=== PATIENT | female | born 1995 | race Caucasian/White ===

== ENCOUNTER 2023-06-18 09:40 | Outpatient (OUT) | payer MEDICAID, SELFPAY ==
[2023-06-18 10:20] LABS: Free T4 0.88 ng/dL (0.76-1.46)
[2023-06-18 10:24] LABS: Alanine Aminotransferase 23 U/L (14-59); Albumin Globulin Ratio 0.9; Albumin Level 3.8 g/dL (3.4-5.0); Alkaline Phosphatase 111 U/L (46-116); Anion Gap 11.2; Aspartate Amino Transferase 22 U/L (15-37); BUN Creatinine Ratio 16.9; Bilirubin Total 0.7 mg/dL (0.2-1.0); Calcium 8.6 mg/dL (8.5-10.1); Carbon Dioxide 23.7 mmol/L (21.0-32.0); Chloride 103 mmol/L (98-107); Estimated GFR (African America >60 (>=60); Estimated GFR (Non-African Ame >60 (>=60); Globulin 4.1 g/dL; Glucose 101 mg/dL (74-106); Potassium 3.9 mmol/L (3.5-5.1); Sodium 134 mmol/L (136-145); Thyroid Stimulating Hormone 4.338 uIU/mL (0.358-3.740); Total Protein 7.9 g/dL (6.4-8.2)
== END 2023-06-18 09:41 | disposition home or self-care (01) ==
LOC: LAB 09:40
PROVIDERS: PCP Nurse Practitioner Family; Visit Provider Nurse Practitioner Family
DX: E55.9 Vitamin D deficiency, unspecified (principal); E03.8 Other specified hypothyroidism; R74.8 Abnormal levels of other serum enzymes
CPT/HCPCS: 36415; 80053; 82306; 84439; 84443

== ENCOUNTER 2023-08-14 15:02 | Outpatient (OUT) | payer MEDICAID, SELFPAY ==
[2023-08-14 16:12] LABS: Thyroid Stimulating Hormone 2.678 uIU/mL (0.358-3.740)
== END 2023-08-14 15:03 | disposition home or self-care (01) ==
LOC: LAB 15:03
PROVIDERS: PCP Nurse Practitioner Family; Visit Provider Nurse Practitioner Family
DX: E03.8 Other specified hypothyroidism (principal); E55.9 Vitamin D deficiency, unspecified
CPT/HCPCS: 36415; 82306; 84439; 84443

== ENCOUNTER 2023-12-16 21:14 | Outpatient (REF) | payer OTHER, SELFPAY ==
--- OUTSIDE RECORDS SUMMARY | 2023-12-16 21:17 | XMS_ITS | CCD ---
Author Name Unknown Address [address] [place] [address] Organization [facility] Care Team Providers Care Director Of Content And Programming Name Role Phone [facility], Sandra Unavailable [facility], SANDRA Primary Care Unavailable HANSA ., DR GOLDSMITH Attending Unavailable [place], DR MANUELITO Foley Consulting Unavailable HANSA ., DR GOLDSMITH Admitting Unavailable HANSA ., DR GOLDSMITH Consulting Unavailable BRIAN, VIRGINIA Admitting Unavailable BRIANVIRGINIA Attending Unavailable [facility], [facility] Primary Care Unavailable [place], DR MANUELITO Foley Consulting Unavailable HANSA ., DR GOLDSMITH Consulting Unavailable VIRGINIA TORRES Consulting Unavailable HANSA ., DR GOLDSMITH Attending Unavailable [facility], SANDRA Primary Care Unavailable HANSA ., DR GOLDSMITH Admitting Unavailable HANSA ., DR GOLDSMITH Consulting Unavailable KAP, SANDRA Primary Care Unavailable HANSA ., DR GOLDSMITH Consulting Unavailable HANSA ., DR GOLDSMITH Attending Unavailable HANSA ., DR GOLDSMITH Admitting Unavailable HANSA ., DR GOLDSMITH Attending Unavailable [facility], [facility] Primary Care Unavailable HANSA ., DR GOLDSMITH Admitting Unavailable [place], DR MANUELITO Foley Consulting Unavailable HANSA ., DR GOLDSMITH Consulting Unavailable KAP, SANDRA Primary Care Unavailable HANSA ., DR GOLDSMITH Consulting Unavailable HANSA ., DR GOLDSMITH Attending Unavailable HANSA ., DR GOLDSMITH Admitting Unavailable KAP, SANDRA Primary Care Unavailable HANSA ., DR GOLDSMITH Attending Unavailable HANSA ., DR GOLDSMITH Consulting Unavailable HANSA ., DR GOLDSMITH Admitting Unavailable ZIEBER, DR RAGINI Chatterjee Consulting Unavailable KAP, [facility] Primary Care Unavailable HANSA ., DR GOLDSMITH Consulting Unavailable HANSA ., DR GOLDSMITH Attending Unavailable HANSA ., DR GOLDSMITH Admitting Unavailable [place], SANDRA Primary Care Unavailable HANSA ., DR GOLDSMITH Attending Unavailable [place], DR MANUELITO Foley Consulting Unavailable HANSA ., DR GOLDSMITH Admitting Unavailable HANSA ., DR GOLDSMITH Consulting Unavailable HANSA ., DR GOLDSMITH Attending Unavailable HANSA ., DR GOLDSMITH Admitting Unavailable [place], SANDRA Primary Care Unavailable HANSA ., DR GOLDSMITH Consulting Unavailable [place], SANDRA Primary Care Unavailable HANSA ., DR GOLDSMITH Attending Unavailable HANSA ., DR GOLDSMITH Consulting Unavailable HANSA ., DR GOLDSMITH Admitting Unavailable [place], SANRDA Primary Care Unavailable HANSA ., DR GOLDSMITH Attending Unavailable WEST, DR MANUELITO Foley Consulting Unavailable HANSA ., DR GOLDSMITH Admitting Unavailable HANSA ., DR GOLDSMITH Consulting Unavailable [place], SANDRA Primary Care Unavailable HANSA ., DR GOLDSMITH Attending Unavailable HANSA ., DR GOLDSMITH Consulting Unavailable HANSA ., DR GOLDSMITH Admitting Unavailable ZIEBER, DR RAGINI Chatterjee Consulting Unavailable [place], SANDRA Primary Care Unavailable HANSA ., DR GOLDSMITH Attending Unavailable HANSA ., DR GOLDSMITH Consulting Unavailable HANSA ., DR GOLDSMITH Admitting Unavailable [place], SANDRA Primary Care Unavailable HANSA ., DR GOLDSMITH Attending Unavailable HANSA ., DR GOLDSMITH Consulting Unavailable HANSA ., DR GOLDSMITH Admitting Unavailable [place], SANDRA Admitting Unavailable KAPLE, SANDRA Attending Unavailable KAPLE, SANDRA Consulting Unavailable [place], SANDRA Primary Care Unavailable HANSA ., DR GOLDSMITH Attending Unavailable HANSA ., DR GOLDSMITH Admitting Unavailable [place], SANDRA Primary Care Unavailable [place], SANDRA Admitting Unavailable [place], SANDRA Attending Unavailable [place], SANDRA Consulting Unavailable [place], SANDRA Primary Care Unavailable HANSA ., DR GOLDSMITH Attending Unavailable [place], SANDRA Primary Care Unavailable HANSA ., DR GOLDSMITH Admitting Unavailable HANSA ., DR GOLDSMITH Attending Unavailable [place], SANDRA Primary Care Unavailable HANSA ., DR GOLDSMITH Admitting Unavailable HANSA ., DR GOLDSMITH Consulting Unavailable VIRGINIA TORRES Consulting Unavailable HANSA ., DR GOLDSMITH Procedure Practitioner Unavail able [place], SANDRA Primary Care Unavailable HANSA ., DR GOLDSMITH Attending Unavailable HANSA ., DR GOLDSMITH Consulting Unavailable HANSA ., DR GOLDSMITH Admitting Unavailable SANDRA [place] Primary Care Unavailable JODIE ., DR HU Admitting Unavailabl e LYK ., DR HU Attending Unavailabl e LYK ., DR HU Consulting Unavailabl e [place], DR MANUELITO Foley Consulting Unavailable HANSA ., DR GOLDSMITH Consulting Unavailable SANDRA [place] Primary Care Unavailable HANSA ., DR GOLDSMITH Attending Unavailable [place], DR MANUELITO Foley Consulting Unavailable HANSA ., DR GOLDSMITH Admitting Unavailable HANSA ., DR GOLDSMITH Consulting Unavailable Ramonita Greenberg Unavailable Medications Current Medications Medication Drug Class(es) Dates Sig (Normalized) Sig (Original) amoxicillin 500 mg oral capsule (3 sources) Penicillin-class Antibacterial Start: 04-15-2023 take 1 capsule by mouth every eight hours Amoxicillin 500 MG 1 capsule Orally three times a day for 10 day(s) Mar, Active Ascorbic Acid (1 source) Vitamin C Vitamin C Active azithromycin 250 mg oral tablet (1 source) Macrolide Antimicrobial Start: 10-31-2023 Zithromax Z-Hollis 250 MG 2 tablets on the first day, then 1 tablet daily for 4 days Orally Once a day for 5 day(s) Oct, Active cephalexin 500 mg oral tablet (4 sources) Cephalosporin Antibacterial Start: 02-21-2023 take 1 tablet by mouth every six hours Cephalexin 500 MG 1 tablet Orally every 6 hrs for 10 day(s) Jan, Active cetirizine hydrochloride 10 mg oral tablet (8 sources) Histamine-1 Receptor Antagonist take 1 tablet by mouth once daily ZyrTEC Allergy 10 MG 1 tablet Orally Once a day Active cholecalciferol 0.125 mg oral tablet (7 sources) Vitamin D Start: 02-21-2023 take 1 tablet by mouth every twenty-four hours Vitamin D3 125 MCG (5000 UT) 1 tablet Orally Once a day for 30 days Jan, Active Start: 12-27-2022 take 1 capsule by mo uth every twenty-four hours Vitamin D3 50 MCG (2000 UT) 1 capsule Orally Once a day for 30 days Dec, Active take 1 tablet by mouth once lolis y Vitamin D3 25 MCG (1000 UT) TAKE 1 TABLET BY MOUTH EVERY DAY for 90 Active take 1 capsule by mo uth every twenty-four hours Vitamin D3 25 MCG (1000 UT) 1 capsule Orally Once a day Active ciprofloxacin 3 mg/ml / dexamethasone 1 mg/ml otic suspension (1 source) Corticosteroid, Quinolone Antimicrobial Start: 06-04-2023 Ciprofloxacin-Dexamethasone 0.3-0.1 % 4 drops into affected ear Otic Twice a day for 7 days May, Active citalopram 40 mg oral tablet (7 sources) Serotonin Reuptake Inhibitor take 1 tablet by mouth every twenty-fo ur hours CeleXA 40 MG 1 tablet Orally Once a day for 30 days Active take 1 tablet by tamica th every twenty-four hours CeleXA 20 MG 1 tablet Orally Once a day Active Cranberry preparation (1 source) Non-Standardized Food Allergenic Extract, Non-Standardized Plant Allergenic Extract Cranberry Active levothyroxine sodium 0.05 mg oral tablet (11 sources) l-Thyroxine take 1 tablet by mouth once daily in the morning Levothyroxine Sodium 50 MCG 1 tablet in the morning on an empty stomach Orally Once a day for 30 days Active take 1 tablet by tamica th once daily in the morning Levothyroxine Sodium 50 MCG 1 tablet in the morning on an empty stomach Orally Once a day for 30 days Active take 1 tablet by tamica th once daily in the morning Levothyroxine Sodium 25 MCG TAKE ONE TAB LET BY MOUTH DAILY ON AN EMPTY STOMACH IN THE MORNING for 30 Active Loratadine (3 sources) Loratadine Activ e metFORMIN hydrochloride 500 mg oral tablet (1 source) Biguanide take 1 tablet by mouth every twelve hours metFORMIN HCl 500 MG 1 tablet with a meal Orally twice a day Active polymyxin b 22827 unt/ml / trimethoprim 1 mg/ml ophthalmic solution (3 sources) Dihydrofolate Reductase Inhibitor Antibacterial, Polymyxin-class Antibacterial Start: 3 Polymyxin B-Trimethoprim 32698-0.1 UNIT/ML 1 drop into affected eye Ophthalmic every 3 hours up to six times daily for 7 days Dec, Active (10 sources) Active Probiotic (1 source) Probiotic Active Vitamin D3 125 MCG (5000 UT) (6 sources) Start: 3 take 1 tablet by mouth once daily Vitamin D3 125 MCG (5000 UT) 1 tablet Orally Once a day for 30 days Jan, Active Start: 02-21-2023 Vitamin D3 125 MCG (5000 UT) as directed Orally Once a day for 30 days Jan, Active Vitamin D3 25 MCG (1000 UT) (2 sources) Start: 06-24-2023 take 1 tablet by mouth once daily Vitamin D3 25 MCG (1000 UT) 1 tablet Orally Once a day for 30 days May, Active Completed/Discontinued Medications Medication Drug Class(es) Dates Sig (Normalized) Sig (Original) {1 (ascorbic acid 7540 MG / polyethylene glycol 3350 10233 MG / potassium chloride 1200 MG / sodium ascorbate 97153 MG / sodium chloride 3200 MG Powder for Oral Solution) / 1 (polyethylene glycol 3350 596687 MG / potassium chloride 1000 MG / sodium chloride 2000 MG / sodium sulfate 9000 MG Powder for Oral Solution) } Pack [Plenvu] (8 sources) Osmotic Laxative, Vitamin C Start: 10-07-2019 Plenvu 140 GM DOSE 1 AT 4:00 PM, DOSE 2 POUCH A &B AT 11:00 PM Orally TWICE A DAY for 1 days PLEASE CHECK ALLERGIES Sep, Not-Taking Problems Active Problems Problem Classification Problem Date Documented Date Episodic/Chronic Allergic reactions (5 sources) Atopic dermatitis; Translations: [Other atopic dermatitis] Chronic Anxiety disorders (20 sources) Anxiety; Translations: [Anxiety disorder, unspecified] Onset: 12-21-2021 Resolved: 12-21-2021 Chronic Chronic obstructive pulmonary disease and bronchiectasis (1 source) Bronchitis, not specified as acute or chronic Episodic Diabetes mellitus without complication (16 sources) Prediabetes; Translations: [Prediabetes] Onset: 12-21-2021 Resolved: 12-21-2021 Episodic Esophageal disorders (1 source) Gastro-esophageal reflux disease without esophagitis; Translations: [GERD WITHOUT ESOPHAGITIS] Onset: 09-17-2022 Chronic Hypertension complicating ; childbirth and the puerperium (8 sources) Unspecified maternal hypertension, third trimester; Translations: [Unspecified pre-existing hypertension complicating , third trimester] Onset: 08-17-2022 Chronic Inflammation; infection of eye (except that caused by tuberculosis or sexually transmitteddisease) (1 source) Unspecified conjunctivitis Episodic Nonmalignant breast conditions (1 source) Mastitis without abscess Episodic Nutritional deficiencies (16 sources) Vitamin D deficiency; Translations: [Vitamin D deficiency, unspecified] Onset: 02-25-2023 Chronic Other ear and sense organ disorders (1 source) Unspecified acute noninfective otitis externa, bilateral Episodic Other ear and sense organ disorders (1 source) Otalgia, right ear Episodic Other endocrine disorders (11 sources) Polycystic ovary syndrome; Translations: [Polycystic ovarian syndrome] Chronic Other endocrine disorders (4 sources) Polycystic ovarian syndrome Onset: 12-21-2021 Resolved: 12-21-2021 Chronic Other liver diseases (5 sources) Abnormal levels of other serum enzymes; Translations: [ABNORMAL LEVELS OTHER SERUM ENZYMES] Onset: 02-21-2023 Episodic Other nutritional; endocrine; and metabolic disorders (11 sources) Body mass index 30+ - obesity; Translations: [Body mass index (BMI) 38.0-38.9, adult] Chronic Other nutritional; endocrine; and metabolic disorders (1 source) Body mass index (BMI) 38.0-38.9, adult Onset: 12-21-2021 Resolved: 12-21-2021 Chronic Other nutritional; endocrine; and metabolic disorders (10 sources) Body mass index 40+ - severely obese; Translations: [Morbid (severe) obesity due to excess calories] Chronic Other nutritional; endocrine; and metabolic disorders (3 sources) Morbid (severe) obesity due to excess calories Chronic Other screening for suspected conditions (not mental disorders or infectious disease) (20 sources) Encounter for screening for malignant neoplasm of cervix; Translations: [Encounter for screening for Streptococcus B] Onset: 04-26-2022 Episodic Other upper respiratory infections (2 sources) Acute pharyngitis, unspecified; Translations: [Streptococcal pharyngitis] Episodic Thyroid disorders (18 sources) Hypothyroidism; Translations: [Other specified hypothyroidism] Onset: 12-21-2021 Resolved: 12-21-2021 Chronic Unclassified (1 source) CONTACT W/AND (SUSP) EXPOS COVID-19; Translations: [CONTACT W/AND (SUSP) EXPOS COVID-19] Onset: 09-17-2022 Past or Other Problems Problem Classification Problem Date Documented Date Episodic/Chronic Abdominal pain (1 source) Left lower quadrant pain; Translations: [LEFT LOWER QUADRANT PAIN] Onset: 07-23-2022 Episodic Immunizations and screening for infectious disease (4 sources) Encounter for screening for infections with a predominantly sexual mode of transmission; Translations: [ENC SCREEN INFECTIONS SEXL TRANSMS] Onset: 04-17-2022 Episodic OB-related trauma to perineum and vulva (1 source) Second degree perineal laceration during delivery; Translations: [SECOND DEG PERINEAL LAC DUR DELIV] Onset: 09-17-2022 Episodic Other circulatory disease (4 sources) Elevated blood-pressure reading, without diagnosis of hypertension; Translations: [ELEVATED BP READING W/O DX HTN] Onset: 08-24-2022 Episodic Other complications of ; puerperium affecting management of mother (1 source) Endocrine, nutritional and metabolic diseases complicating childbirth; Translations: [ENDOCRN NUTR MET DZ COMP CHILDBIRTH] Onset: 09-17-2022 Episodic Other complications of ; puerperium affecting management of mother (1 source) Diseases of the digestive system complicating childbirth; Translations: [DZ DIGESTIVE SYSTEM COMP CHILDBIRTH] Onset: 09-17-2022 Episodic Other complications of (4 sources) Maternal care for excessive growth, third trimester, not applicable or unspecified; Translations: [MAT CARE EXCSS FTL GRTH 3RD TRI UNS] Onset: 09-03-2022 Episodic Other complications of (2 sources) Other specified related conditions, third trimester; Translations: [OTH SPEC PREG RELATED COND 3RD TRI] Onset: 07-23-2022 Episodic Other complications of (4 sources) Endocrine, nutritional and metabolic diseases complicating , unspecified trimester; Translations: [ENDOCRN NUTR MET DZ COMP PG UNS TRI] Onset: 08-21-2022 Episodic Other complications of (1 source) Endocrine, nutritional and metabolic diseases complicating , third trimester; Translations: [ENDOCRN NUTR MET DZ COMP PG 3RD TRI] Onset: 08-21-2022 Episodic Other complications of (4 sources) Decreased movements, third trimester, not applicable or unspecified; Translations: [DECR MOVEMENTS 3RD TRI NA/UNS] Onset: 07-20-2022 Episodic Other female genital disorders (1 source) Other specified noninflammatory disorders of vagina; Translations: [OTH SPEC NONINFLAMMATORY D/O VAGINA] Onset: 04-19-2022 Episodic Other and delivery including normal (9 sources) Encounter for care and examination of lactating mother; Translations: [Encounter for routine follow-up] Onset: 09-10-2022 Episodic Residual codes; unclassified (1 source) 39 weeks gestation of ; Translations: [39 WEEKS GESTATION OF ] Onset: 09-17-2022 Episodic Residual codes; unclassified (1 source) 38 weeks gestation of ; Translations: [38 WEEKS GESTATION OF ] Onset: 09-03-2022 Episodic Residual codes; unclassified (1 source) 37 weeks gestation of ; Translations: [37 WEEKS GESTATION OF ] Onset: 08-26-2022 Episodic Residual codes; unclassified (1 source) 36 weeks gestation of ; Translations: [36 WEEKS GESTATION OF ] Onset: 08-21-2022 Episodic Residual codes; unclassified (1 source) 35 weeks gestation of ; Translations: [35 WEEKS GESTATION OF ] Onset: 08-11-2022 Episodic Residual codes; unclassified (1 source) 32 weeks gestation of ; Translations: [32 WEEKS GESTATION OF ] Onset: 07-28-2022 Episodic Residual codes; unclassified (1 source) 28 weeks gestation of ; Translations: [28 WEEKS GESTATION OF ] Onset: 06-28-2022 Episodic Thyroid disorders (5 sources) Disorder of thyroid, unspecified; Translations: [DISORDER OF THYROID UNSPECIFIED] Onset: 04-05-2022 Episodic Results Test Name Value Interpretation Reference Range Facility A1C HEMOGLOBINon 10-31-2023 HbA1c (Bld) [Mass fraction] 5.8 % [facility] Other HbA1c (Bld) [Mass fraction]o n 10-31-2023 A1C HEMOGLOBIN [facility] Other A1C HEMOGLOBINon 06-24-2023 HbA1c (Bld) [Mass fraction] 5.2 % [facility] Other HbA1c (Bld) [Mass fraction]o n 06-24-2023 A1C HEMOGLOBIN [facility] Other Quick Strepon 04-15-2023 S. pyogenes Org specific cx Ql (Throat) Positive [facility] Other Quick Strep [facility] Other FREE T4on 02-21-2023 Free T4 [Mass/Vol] 0.89 ng/dL Normal 0.76-1.46 [facility] Comment on above: Performed By: #### H H #### [facility] [address] [place] [address] Dr. Bella Jerome PROF 14(COMP METB)on 023 Albumin [Mass/Vol] 3.7 g/dL Normal 3.4-5.0 [facility] Comment on above: Performed By: #### H H #### [facility] [address] [place] [address] Dr. Bella Jerome Albumin/Globulin [Mass ratio] 0.9 {ratio} Normal [facility] Comment on above: Performed By: #### H H #### [facility] [address] [place] [address] Dr. Bella Jerome ALP [Catalytic activity/Vol] 132 U/L Critically high 46-116 [facility] Comment on above: Performed By: #### H H #### [facility] [address] [place] [address] Dr. Bella Jerome ALT [Catalytic activity/Vol] 32 U/L Normal 14-59 [facility] Comment on above: Performed By: #### H H #### [facility] [address] [place] [address] Dr. Bella Jerome Anion gap [Moles/Vol] 12.8 mmol/L Normal [facility] Comment on above: Performed By: #### H H #### [facility] [address] [place] [address] Dr. Bella Jerome AST [Catalytic activity/Vol] 23 U/L Normal 15-37 [facility] Comment on above: Performed By: #### H H #### [facility] [address] [place] [address] Dr. Bella Jerome Bilirubin [Mass/Vol] 0.6 mg/dL Normal 0.2-1.0 [facility] Comment on above: Performed By: #### H H #### [facility] [address] [place] [address] Dr. Bella Jerome Calcium [Mass/Vol] 9.0 mg/dL Normal 8.5-10.1 [facility] Comment on above: Performed By: #### H H #### [facility] [address] [place] [address] Dr. Bella Jerome Chloride [Moles/Vol] 102 mmol/L Normal 98-107 [facility] Comment on above: Performed By: #### H H #### [facility] [address] [place] [address] Dr. Bella Jerome CO2 [Moles/Vol] 28.2 mmol/L Normal 21.0-32.0 [facility] Comment on above: Performed By: #### H H #### [facility] [address] [place] [address] Dr. Bella Jerome Creatinine [Mass/Vol] 0.67 mg/dL Normal 0.55-1.02 [facility] Comment on above: Performed By: #### H H #### [facility] [address] [place] [address] Dr. Bella Jerome EGFR-AF RWANDAN >60 Normal >=60 [facility] Comment on above: Performed By: #### H H #### [facility] [address] [place] [address] Dr. Bella Jerome EGFR-NON AF RWANDAN >60 Normal >=60 [facility] Comment on above: Performed By: #### H H #### [facility] [address] [place] [address] Dr. Bella Jerome Globulin (S) [Mass/Vol] 4.2 g/dL Normal [facility] Comment on above: Performed By: #### H H #### [facility] [address] [place] [address] Dr. Bella Jerome Glucose [Mass/Vol] 88 mg/dL Normal 74-106 [facility] Comment on above: Performed By: #### H H #### [facility] [address] [place] [address] Dr. Bella Jerome Potassium [Moles/Vol] 4.0 mmol/L Normal 3.5-5.1 [facility] Comment on above: Performed By: #### H H #### [facility] [address] [address] [address] Bella Jerome Protein [Mass/Vol] 7.9 g/dL Normal 6.4-8.2 [facility] Comment on above: Performed By: #### H H #### [facility] [address] [address] [address] Bella Jerome Sodium [Moles/Vol] 139 mmol/L Normal 136-145 [facility] Comment on above: Performed By: #### H H #### [facility] [address] [address] [address] Bella Jerome Urea nitrogen [Mass/Vol] 12.0 mg/dL Normal 7.0-18.0 [facility] Comment on above: Performed By: #### H H #### [facility] [address] [place] [address] Dr. Bella Jerome Urea nitrogen/Creatinine [Mass ratio] 17.9 mg/mg Normal [facility] Comment on above: Performed By: #### H H #### [facility] [address] [address] [address] Bella Jerome TSHon 02-21-2023 TSH 2.463 uIU/mL Normal 0.358-3.740 [facility] Comment on above: Performed By: #### H H #### [facility] [address] [place] [address] Dr. Bella Jerome VITAMIN D 25 OHon 02-21-2023 VIT D 25-OH 23.1 ng/mL Normal [facility] Comment on above: Performed By: #### H H #### [facility] [address] [place] [address] Dr. Bella Jerome VIT D RANGES SEE BELOW Normal [facility] Comment on above: Result Comment: <20 ng/mL Vit D deficient 20 - <30 ng/mL Vit D insufficient 30 - 100 ng/mL Vit D sufficient >100 ng/mL Potential Toxicity Performed By: #### H H #### [facility] [address] [place] [address] Dr. Bella Jerome CBC AUTO DIFFon 12-26-2022 BASO # 0.0 103/ul Normal 0.0-0.1 [facility] Comment on above: Performed By: #### C BC #### [facility] [address] [place] [address] Dr. Bella Jerome Basophils/100 WBC (Bld) 0.3 % Normal 0.2-2.0 [facility] Comment on above: Performed By: #### C BC #### [facility] [address] [place] [address] Dr. Bella Jerome EO # 0.1 103/ul Normal 0.0-0.7 [facility] Comment on above: Performed By: #### C BC #### [facility] [address] [place] [address] Dr. Bella Jerome Eosinophils/100 WBC (Bld) 1.6 % Normal 0.9-7.0 [facility] Comment on above: Performed By: #### C BC #### [facility] [address] [place] [address] Dr. Bella Jerome Erythrocyte distribution width (RBC) [Ratio] 12.7 % Normal 11.0-15.0 [facility] Comment on above: Performed By: #### C BC #### [facility] [address] [place] [address] Dr. Bella Jerome Hematocrit (Bld) [Volume fraction] 37.2 % Normal 36.0-48.0 [facility] Comment on above: Performed By: #### C BC #### [facility] [address] [place] [address] Dr. Bella Jerome Hemoglobin (Bld) [Mass/Vol] 12.5 g/dL Normal 12.0-16.0 [facility] Comment on above: Performed By: #### C BC #### [facility] [address] [place] [address] Dr. Bella Jerome IG # 0.02 10e3/ul Normal 0.00-0.03 [facility] Comment on above: Performed By: #### C BC #### [facility] [address] [place] [address] Dr. Bella Jerome IG % 0.3 % Normal 0.0-0.5 [facility] Comment on above: Performed By: #### C BC #### [facility] [address] [place] [address] Dr. Bella Jerome LYMPH # 2.3 103/ul Normal 1.2-3.8 [facility] Comment on above: Performed By: #### C BC #### [facility] [address] [place] [address] Dr. Bella Jerome Lymphocytes/100 WBC (Bld) 34.1 % Normal 20.5-60.0 [facility] [facility] Comment on above: Performed By: #### C BC #### [facility] [address] [place] [address] Dr. eBlla Jerome MANUAL DIFF REQ NO Normal [facility] Comment on above: Performed By: #### C BC #### [facility] [address] [place] [address] Dr. Bella Jerome MCH (RBC) [Entitic mass] 30.9 pg Normal 26.7-34.0 [facility] Comment on above: Performed By: #### C BC #### [facility] [address] [place] [address] Dr. Bella Jerome MCHC (RBC) [Mass/Vol] 33.6 g/dL Normal 29.9-35.2 [facility] Comment on above: Performed By: #### C BC #### [facility] [address] [place] [address] Dr. Bella Jerome MCV (RBC) [Entitic vol] 91.9 fL Normal 81.0-99.0 [facility] Comment on above: Performed By: #### C BC #### [facility] [address] [place] [address] Dr. Bella Jerome MONO # 0.4 103/ul Normal 0.3-0.8 [facility] Comment on above: Performed By: #### C BC #### [facility] [address] [place] [address] Dr. Bella Jerome Monocytes/100 WBC (Bld) 5.1 % Normal 1.7-12.0 [facility] Comment on above: Performed By: #### C BC #### [facility] [address] [address] [address] Bella Jerome NEUT # 4.0 103/ul Normal 1.4-6.5 [facility] Comment on above: Performed By: #### C BC #### [facility] [address] [address] [address] Bella Jerome Neutrophils/100 WBC (Bld) 58.6 % Normal 43.0-75.0 [facility] Comment on above: Performed By: #### C BC #### [facility] [address] [address] [address] Bella Jerome Platelet mean volume (Bld) [Entitic vol] 11.5 fL Normal 9.5-13.5 [facility] Comment on above: Performed By: #### C BC #### [facility] [address] [address] [address] Bella Jerome PLT 243 103/ul Normal 150-450 [facility] Comment on above: Performed By: #### C BC #### [facility] [address] [address] [address] Bella Jerome RBC 4.05 106/ul Critically low 4.20-5.40 [facility] Comment on above: Performed By: #### C BC #### [facility] [address] [address] [address] Bella Jerome WBC 6.8 103/ul Normal 4.0-11.0 [facility] Comment on above: Performed By: #### C BC #### [facility] [address] [address] [address] Bella Jerome FREE T4on 12-26-2022 Free T4 [Mass/Vol] 1.05 ng/dL Normal 0.76-1.46 [facility] Comment on above: Performed By: #### F T4, VITAD, B12FOL, IRON ####[facility] [address] [address]Dr. Bella Jerome GLYCOHEMOGLOBIN A1Con 2022 ADA RECOMMENDATION SEE BELOW Normal [facility] Comment on above: Result Comment: ADA RECOMMENDED LIMIT 4.0 - 6.0 ADA THERAPEUTIC TARGET < 7.0 ACTION SUGGESTED > 7.0 Performed By: #### A 1C #### [facility] [address] [address] [address] Bella Jerome Glucose [Mass/Vol] 103 mg/dL Normal [facility] Comment on above: Performed By: #### A 1C #### [facility] [address] [address] [address] Bella Jerome HbA1c (Bld) [Mass fraction] 5.2 % Normal 4.5-6.2 [facility] Comment on above: Performed By: #### A 1C #### [facility] [address] [address] [address] Bella Jerome IRONon 12-26-2022 Iron [Mass/Vol] 74.0 ug/dL Normal 50.0-170.0 [facility] Comment on above: Performed By: #### F T4, VITAD, B12FOL, IRON ####[facility] [address] [address]Dr. Bella Jerome LIPID PROFILEon 12-26-2022 CHOL-HDL RATIO NORM SEE BELOW Normal [facility] Comment on above: Result Comment: 3.3 - 4.4 LOW RISK 4.4 - 7.1 AVERAGE RISK 7.1 - 11.0 MODERATE RISK >11.0 HIGH RISK Performed By: #### C MP, TSH, LIPID #### [facility] [address] [address] [address] Bella Jerome Cholesterol [Mass/Vol] 153 mg/dL Normal <=200 [facility] Comment on above: Performed By: #### C MP, TSH, LIPID #### [facility] [address] [address] [address] Bella Jerome Cholesterol in HDL [Mass/Vol] 67 mg/dL Critically high 40-60 [facility] Comment on above: Performed By: #### C MP, TSH, LIPID #### [facility] [address] [address] [address] Bella Jerome Cholesterol in LDL [Mass/Vol] 77.2 mg/dL Normal [facility] Comment on above: Performed By: #### C MP, TSH, LIPID #### [facility] [address] [address] [address] Bella Jerome Cholesterol.total/Ch olesterol in HDL [Mass ratio] 2.3 {ratio} Normal [facility] Comment on above: Performed By: #### C MP, TSH, LIPID #### [facility] [address] [address] [address] Bella Jerome HDL NORMAL > or = 60 mg/dl - LOW CARDIOVASCULAR RISK <40 mg/dl - HIGH CARDIOVASCULAR RISK Normal [facility] Comment on above: Performed By: #### C MP, TSH, LIPID #### [facility] [address] [place] [address] Dr. Bella Jerome LDL CALC NORMAL SEE BELOW Normal [facility] Comment on above: Result Comment: <100 mg/dl OPTIMAL 100 - 129 mg/dl NEAR OR ABOVE OPTIMAL 130 - 159 mg/dl BORDERLINE HIGH 160 - 189 mg/dl HIGH >190 mg/dl VERY HIGH Performed By: #### C MP, TSH, LIPID #### [facility] [address] [place] [address] Dr. Bella Jerome Triglyceride [Mass/Vol] 44 mg/dL Normal <=150 [facility] Comment on above: Performed By: #### C MP, TSH, LIPID #### [facility] [address] [place] [address] Dr. Bella Jerome VLDL CALC 8.8 mg/dL Normal [facility] Comment on above: Performed By: #### C MP, TSH, LIPID #### [facility] [address] [address] [address] Bella Jerome MICROALB CREAT RATIO RANDOMo n 12-26-2022 mALB 2.3 mg/L Normal <=30.0 [facility] Comment on above: Performed By: #### H H #### [facility] [address] [place] [address] Dr. Bella Jerome MALB CR RATIO 17.4 mg/g Normal 0.0-29.9 [facility] Comment on above: Performed By: #### H H #### [facility] [address] [place] [address] Dr. Bella Jerome MALB CR RATIO RANGE SEE BELOW Normal [facility] Comment on above: Result Comment: NO M ICROALBUMINURIA 0-29 MG/G CLINICAL MICROALBUMINURIA 30-300 MG/G MACROALBUMINURIA >300 MG/G Performed By: #### H H #### [facility] [address] [address] [address] Bella Jerome URINE CREAT 131.90 mg/dL Normal 20.00-300.00 [facility] Comment on above: Performed By: #### H H #### [facility] [address] [place] [address] Dr. Bella Jerome PROF 14(COMP METB)on 023 Albumin [Mass/Vol] 4.1 g/dL Normal 3.4-5.0 [facility] Comment on above: Performed By: #### C MP, TSH, LIPID #### [facility] [address] [place] [address] Dr. Bella Jerome Albumin/Globulin [Mass ratio] 1.3 {ratio} Normal [facility] Comment on above: Performed By: #### C MP, TSH, LIPID #### [facility] [address] [place] [address] Dr. Bella Jerome ALP [Catalytic activity/Vol] 124 U/L Critically high 46-116 [facility] Comment on above: Performed By: #### C MP, TSH, LIPID #### [facility] [address] [address] [address] Bella Jerome ALT [Catalytic activity/Vol] 16 U/L Normal 14-59 [facility] Comment on above: Performed By: #### C MP, TSH, LIPID #### [facility] [address] [address] [address] Bella Jerome Anion gap [Moles/Vol] 13.4 mmol/L Normal [facility] Comment on above: Performed By: #### C MP, TSH, LIPID #### [facility] [address] [address] [address] Bella Jerome AST [Catalytic activity/Vol] 17 U/L Normal 15-37 [facility] Comment on above: Performed By: #### C MP, TSH, LIPID #### [facility] [address] [address] [address] Bella Jerome Bilirubin [Mass/Vol] 0.8 mg/dL Normal 0.2-1.0 [facility] Comment on above: Performed By: #### C MP, TSH, LIPID #### [facility] [address] [address] [address] Bella Jerome Calcium [Mass/Vol] 8.9 mg/dL Normal 8.5-10.1 [facility] Comment on above: Performed By: #### C MP, TSH, LIPID #### [facility] [address] [place] [address] Dr. Bella Jerome Chloride [Moles/Vol] 103 mmol/L Normal 98-107 [facility] Comment on above: Performed By: #### C MP, TSH, LIPID #### [facility] [address] [address] [address] Bella Jerome CO2 [Moles/Vol] 25.6 mmol/L Normal 21.0-32.0 [facility] Comment on above: Performed By: #### C MP, TSH, LIPID #### [facility] [address] [address] [address] Bella Jerome Creatinine [Mass/Vol] 0.55 mg/dL Normal 0.55-1.02 [facility] Comment on above: Performed By: #### C MP, TSH, LIPID #### [facility] [address] [address] [address] Bella Jerome EGFR-AF RWANDAN >60 Normal >=60 [facility] Comment on above: Performed By: #### C MP, TSH, LIPID #### [facility] [address] [place] [address] Dr. Bella Jerome EGFR-NON AF RWANDAN >60 Normal >=60 [facility] Comment on above: Performed By: #### C MP, TSH, LIPID #### [facility] [address] [address] [address] Bella Jerome Globulin (S) [Mass/Vol] 3.1 g/dL Normal [facility] Comment on above: Performed By: #### C MP, TSH, LIPID #### [facility] [address] [place] [address] Dr. Bella Jerome Glucose [Mass/Vol] 82 mg/dL Normal 74-106 [facility] Comment on above: Performed By: #### C MP, TSH, LIPID #### [facility] [address] [place] [address] Dr. Bella Jerome Potassium [Moles/Vol] 4.0 mmol/L Normal 3.5-5.1 [facility] Comment on above: Performed By: #### C MP, TSH, LIPID #### [facility] [address] [place] [address] Dr. Bella Jerome Protein [Mass/Vol] 7.2 g/dL Normal 6.4-8.2 [facility] Comment on above: Performed By: #### C MP, TSH, LIPID #### [facility] [address] [place] [address] Dr. Bella Jerome Sodium [Moles/Vol] 138 mmol/L Normal 136-145 [facility] Comment on above: Performed By: #### C MP, TSH, LIPID #### [facility] [address] [place] [address] Dr. Bella Jerome Urea nitrogen [Mass/Vol] 14.0 mg/dL Normal 7.0-18.0 [facility] Comment on above: Performed By: #### C MP, TSH, LIPID #### [facility] [address] [place] [address] Dr. Bella Jerome Urea nitrogen/Creatinine [Mass ratio] 25.5 mg/mg Normal [facility] Comment on above: Performed By: #### C MP, TSH, LIPID #### [facility] [address] [place] [address] Dr. Bella Jerome TSHon 12-26-2022 TSH 0.224 uIU/mL Critically low 0.358-3.740 [facility] Comment on above: Performed By: #### C MP, TSH, LIPID #### [facility] [address] [address] [address] Bella Jerome VIT B12 AND FOLATEon 023 Cobalamin (Vitamin B12) [Mass/Vol] 702.0 pg/mL Normal 193.0-986.0 [facility] Comment on above: Performed By: #### F T4, VITAD, B12FOL, IRON ####[facility] [address] [id number] Jerome FOLATE 25.10 ng/mL Normal 8.60-58.90 [facility] Comment on above: Performed By: #### F T4, VITAD, B12FOL, IRON ####[facility] [address] [id number] Jerome VITAMIN D 25 OHon 12-26-2022 VIT D 25-OH 25.4 ng/mL Normal [facility] Comment on above: Performed By: #### F T4, VITAD, B12FOL, IRON ####[facility] [address] [address]Dr. Bella Jerome VIT D RANGES SEE BELOW Normal [facility] Comment on above: Result Comment: <20 ng/mL Vit D deficient 20 - <30 ng/mL Vit D insufficient 30 - 100 ng/mL Vit D sufficient >100 ng/mL Potential Toxicity Performed By: #### F T4, VITAD, B12FOL, IRON ####[facility] [address] [id number]. Bella Jerome PAP ACOG PANEL 2: 23 to 31on 12-18-2022 . . Normal [facility] Comment on above: Performed By: #### C BC #### [facility] [address] [place] [address] Dr. Bella Jerome Age Gdln ACOG Testing 21-29 Normal [facility] Comment on above: Performed By: #### C BC #### [facility] [address] [address] [address] Bella Jerome DIAGNOSIS: Comment Normal [facility] Comment on above: Result Comment: NEGA TIVE FOR INTRAEPITHELIAL LESION OR MALIGNANCY. Performed By: #### C BC #### [facility] [address] [place] [address] Dr. Bella Jerome Methodology: Comment Normal [facility] Comment on above: Result Comment: This liquid based ThinPrep(R) pap test was screened with the use of an image guided system. Performed By: #### C BC #### [facility] [address] [place] [address] Dr. Bella Jerome Note: Comment Normal [facility] Comment on above: Result Comment: The Pap smear is a screening test designed to aid in the detection of premalignant and malignant conditions of the uterine cervix. It is not a diagnostic procedure and should not be used as the sole means of detecting cervical cancer. Both false-positive and false-negative reports do occur. . Performed By: #### C BC #### [facility] [address] [place] [address] Dr. Bella Jerome Performed by: Comment Normal [facility] Comment on above: Result Comment: Byron Irby, Scheduling Analyst (ASCP) Performed By: #### C BC #### [facility] [address] [place] [address] Dr. Bella Jerome Reflex Criteria: Comment Normal [facility] Comment on above: Result Comment: The HPV DNA reflex criteria were not met with this specimen result therefore, no HPV testing was performed. . Performed By: #### C BC #### [facility] [address] [place] [address] Dr. Bella Jerome Specimen adequacy: Comment Normal [facility] Comment on above: Result Comment: Sati sfactory for evaluation. Endocervical and/or squamous metaplastic cells (endocervical component) are present. Performed By: #### C BC #### [facility] [address] [place] [address] Dr. Bella Jerome CBC W MANUAL DIFFon 09-07-20 22 ATYPICAL LYMPH # Normal [facility] Comment on above: Performed By: #### C BCMAN ####[facility] [address] [id number]. Bella Jerome ATYPICAL LYMPH % Normal [facility] Comment on above: Performed By: #### C PEDRO ####[facility] [address] [id number]. Yilan Jerome BAND # 0.2 103/ul Normal 0.0-0.3 [facility] Comment on above: Performed By: #### C PEDRO ####[facility] [address] [address]Dr. Yilan Jerome BAND % 1 % Normal 0-5 [facility] Comment on above: Performed By: #### C PEDRO ####[facility] [address] [address]Dr. Yiwally Jerome BASOM # 0.00 103/ul Normal 0.00-0.10 [facility] Comment on above: Performed By: #### C PEDRO ####[facility] [address] [place], [place] [address]Dr. Bella Jerome BASOM % 0.0 % Critically low 0.2-2.0 [facility] Comment on above: Performed By: #### C PEDRO ####[facility] [address] [place], [place] [address]Dr. Yilan Jerome BLAST # Normal [facility] Comment on above: Performed By: #### C PEDRO ####[facility] [address] [address]Dr. Yilan Jerome BLAST % Normal [facility] Comment on above: Performed By: #### C PEDRO ####[facility] [address] [address]Dr. Bella Jerome CORRECTED WBC Normal 4.0-11.0 [facility] Comment on above: Performed By: #### C PEDRO ####[facility] [address] [place], [place] [address]Dr. Lilan Jerome EOS # 0.00 103/ul Normal 0.00-0.70 [facility] Comment on above: Performed By: #### C PEDRO ####[facility] [address] [place], [place] [address]Sc. Bella Jerome EOS% 0.0 % Critically low 0.9-7.0 [facility] Comment on above: Performed By: #### C PEDRO ####[facility] [address] [place], [place] [address]Wj. Bella Jerome HCT 30.5 % Critically low 36.0-48.0 [facility] Comment on above: Performed By: #### C PEDRO ####[facility] [address] [place], [place] [address]Ku. Bella Jerome HGB 10.5 g/dl Critically low 12.0-16.0 [facility] Comment on above: Performed By: #### C PEDRO ####[facility] [address] [id number]. Bella Jerome LYMPHM # 2.78 103/ul Normal 1.20-3.80 [facility] Comment on above: Performed By: #### C PEDRO ####[facility] [address] [id number]. Bella Jerome LYMPHM% 13.0 % Critically low 20.5-60.0 [facility] Comment on above: Performed By: #### C PEDRO ####[facility] [address] [id number]. Bella Jerome MCH 32.8 pg Normal 26.7-34.0 [facility] Comment on above: Performed By: #### C PEDRO ####[facility] [address] [place], [place] [address]Ci. Bella Jerome MCHC 34.4 g/dl Normal 29.9-35.2 [facility] Comment on above: Performed By: #### C PEDRO ####[facility] [address] [place], [place] [address]Sl. Bella Jerome MCV 95.3 fL Normal 81.0-99.0 [facility] Comment on above: Performed By: #### C PEDRO ####[facility] [address] [address]Dr. Bella Jerome METAMYELOCYTE # Normal [facility] Comment on above: Performed By: #### C PEDRO ####[facility] [address] [id number]. Bella Jerome METAMYELOCYTE % Normal [facility] Comment on above: Performed By: #### C PEDRO ####[facility] [address] [id number]. Bella Jerome MONOM# 2.35 103/ul Critically high 0.30-0.80 [facility] Comment on above: Performed By: #### C PEDRO ####[facility] [address] [phone]. Bella Jerome MONOM% 11.0 % Normal 1.7-12.0 [facility] Comment on above: Performed By: #### C PEDRO ####[facility] [address] [id number]. Bella Jerome MPV 11.1 fL Normal 9.5-13.5 [facility] Comment on above: Performed By: #### C PEDRO ####[facility] [address] [id number]. Bella Jerome MYELOCYTE # Normal [facility] Comment on above: Performed By: #### C PEDRO ####[facility] [address] [id number]. Bella Jerome MYELOCYTE % Normal [facility] Comment on above: Performed By: #### C PEDRO ####[facility] [address] [id number]. Bella Jerome NRBC Normal [facility] Comment on above: Performed By: #### C PEDRO ####[facility] [address] [phone]. Bella Jerome PLT 227 103/ul Normal 150-450 [facility] Comment on above: Performed By: #### C PEDRO ####[facility] [address] [id number]. Bella Jerome RBC 3.20 106/ul Critically low 4.20-5.40 [facility] Comment on above: Performed By: #### C BCMAN ####[facility] [address] [id number] Jerome RDW 12.8 % Normal 11.0-15.0 [facility] Comment on above: Performed By: #### C BCMAN ####[facility] [address] [id number] Jerome SEG # 16.05 103/ul Critically high 1.40-6.50 [facility] Comment on above: Performed By: #### C BCMAN ####[facility] [address] [address]DrWill Jerome SEG % 75.0 % Normal 43.0-75.0 [facility] Comment on above: Performed By: #### C BCMAN ####[facility] [address] [address]Dr. Bella Jerome WBC 21.4 103/ul Critically high 4.0-11.0 [facility] Comment on above: Performed By: #### C BCMAN ####[facility] [address] [address]Dr. Bella Jerome CBC AUTO DIFFon 09-05-2022 BASO # 0.0 103/ul Normal 0.0-0.1 [facility] Comment on above: Performed By: #### C BC #### [facility] [address] [address] [address] Bella Jerome Basophils/100 WBC (Bld) 0.2 % Normal 0.2-2.0 [facility] Comment on above: Performed By: #### C BC #### [facility] [address] [address] [address] Bella Jerome EO # 0.1 103/ul Normal 0.0-0.7 [facility] Comment on above: Performed By: #### C BC #### [facility] [address] [address] [address] Bella Jerome Eosinophils/100 WBC (Bld) 0.6 % Critically low 0.9-7.0 [facility] Comment on above: Performed By: #### C BC #### [facility] [address] [place] [address] Dr. Bella Jerome Erythrocyte distribution width (RBC) [Ratio] 12.6 % Normal 11.0-15.0 [facility] Comment on above: Performed By: #### C BC #### [facility] [address] [place] [address] Dr. Bella Jerome Hematocrit (Bld) [Volume fraction] 32.5 % Critically low 36.0-48.0 [facility] Comment on above: Performed By: #### C BC #### [facility] [address] [place] [address] Dr. Bella Jerome Hemoglobin (Bld) [Mass/Vol] 11.1 g/dL Critically low 12.0-16.0 [facility] Comment on above: Performed By: #### C BC #### [facility] [address] [place] [address] Dr. Bella Jerome IG # 0.14 10e3/ul Critically high 0.00-0.03 [facility] Comment on above: Performed By: #### C BC #### [facility] [address] [place] [address] Dr. Bella Jerome IG % 1.1 % Critically high 0.0-0.5 [facility] Comment on above: Performed By: #### C BC #### [facility] [address] [place] [address] Dr. Bella Jerome LYMPH # 2.6 103/ul Normal 1.2-3.8 [facility] Comment on above: Performed By: #### C BC #### [facility] [address] [place] [address] Dr. Bella Jerome Lymphocytes/100 WBC (Bld) 20.2 % Critically low 20.5-60.0 [facility] Comment on above: Performed By: #### C BC #### [facility] [address] [place] [address] Dr. Bella Jerome MANUAL DIFF REQ NO Normal [facility] Comment on above: Performed By: #### C BC #### [facility] [address] [address] [address] Bella Jerome MCH (RBC) [Entitic mass] 32.2 pg Normal 26.7-34.0 [facility] Comment on above: Performed By: #### C BC #### [facility] [address] [place] [address] Dr. Bella Jerome MCHC (RBC) [Mass/Vol] 34.2 g/dL Normal 29.9-35.2 [facility] Comment on above: Performed By: #### C BC #### [facility] [address] [place] [address] Dr. Bella Jerome MCV (RBC) [Entitic vol] 94.2 fL Normal 81.0-99.0 [facility] Comment on above: Performed By: #### C BC #### [facility] [address] [place] [address] Dr. Bella Jerome MONO # 0.9 103/ul Critically high 0.3-0.8 [facility] Comment on above: Performed By: #### C BC #### [facility] [address] [place] [address] Dr. Bella Jerome Monocytes/100 WBC (Bld) 7.1 % Normal 1.7-12.0 [facility] Comment on above: Performed By: #### C BC #### [facility] [address] [place] [address] Dr. Bella Jerome NEUT # 8.9 103/ul Critically high 1.4-6.5 [facility] Comment on above: Performed By: #### C BC #### [facility] [address] [place] [address] Dr. Bella Jerome Neutrophils/100 WBC (Bld) 70.8 % Normal 43.0-75.0 [facility] Comment on above: Performed By: #### C BC #### [facility] [address] [place] [address] Dr. Bella Jerome Platelet mean volume (Bld) [Entitic vol] 11.0 fL Normal 9.5-13.5 [facility] Comment on above: Performed By: #### C BC #### [facility] [address] [place], [place] [address] Dr. Bella Jerome PLT 234 103/ul Normal 150-450 [facility] Comment on above: Performed By: #### C BC #### [facility] [address] [place], [place] [address] Dr. Bella Jerome RBC 3.45 106/ul Critically low 4.20-5.40 [facility] Comment on above: Performed By: #### C BC #### [facility] [address] [place], [place] [address] Dr. Bella Jerome WBC 12.6 103/ul Critically high 4.0-11.0 [facility] Comment on above: Performed By: #### C BC #### [facility] [address] [place] [id number] Bella Jerome [facility]on SARS-CoV-2 (COVID-19) RNA FAVIAN+probe Ql (Unsp spec) Not detected Normal NOT DETECTED [facility] Comment on above: Result Comment: When diagnostic testing is negative, the possibility of a false negative should be considered in the context of a patient's recent exposures and the presence of clinical signs and symptoms consistent with SARS-CoV-2. This test is not yet approved or cleared by the [place] FDA. When there are no FDA-approved or cleared tests available, and other criteria are met, FDA can make tests available under an emergency access mechanism called an Emergency Use Authorization (EUA). The EUA for this test is supported by the [place] of Health and Human Service's declaration that circumstances exist to justify the emergency use of in vitro diagnostics for the detection and/or diagnosis of the virus that causes COVID-19. This EUA will remain in effect for the duration of the COVID-19 declaration justifying emergency of IVDs, unless it is terminated or revoked by the FDA (after which the test may no longer be used). Performed By: #### C VDTBH ####[facility] [address] [place], [place] [address]Yx. Bella Jerome DRUG SCREEN RAPID (URINE)on 09-05-2022 AMP Negative Normal NEGATIVE [facility] Comment on above: Performed By: #### D RUGRPD ####[facility] [address] [place] [address]Dr. Bella Jerome BAR Negative Normal NEGATIVE [facility] Comment on above: Performed By: #### D RUGRPD ####[facility] [address] [place] [address]Dr. Bella Jerome BUP Negative Normal NEGATIVE [facility] Comment on above: Performed By: #### D RUGRPD ####[facility] [address] [place] [address]Dr. Bella Jerome BZO Negative Normal NEGATIVE [facility] Comment on above: Performed By: #### D RUGRPD ####[facility] [address] [place], [place] [address]Dr. Bella Jerome NGA Negative Normal NEGATIVE [facility] Comment on above: Performed By: #### D RUGRPD ####[facility] [address] [place], [place] [address]Dr. Bella Jerome CUT-OFFS SEE BELOW Normal [facility] Comment on above: Result Comment: AMP (Amphetamine): 500ng/mL, BAR (Barbituates): 200 ng/mL, BZO (Benzodiazepines): 150 ng/mL, BUP (Buprenorphine): 10 ng/mL, NGA (Cocaine): 150 ng/mL, mAMP (Methamphetamine): 500 ng/mL, MTD (Methadone): 200 ng/mL, OPI (Opiates): 100 ng/mL, OXY (Oxycodone): 100 ng/mL, PCP (Phencyclidine): 25 ng/mL, PPX (Propoxyphene): 300 ng/mL, THC (Cannabinoids): 50 ng/mL, TCA (Trycyclic Antidepressants): 300 ng/mL Performed By: #### D RUGRPD ####[facility] [address] [place] [address]Dr. Bella Jerome DRUG CUT HEADER DRUG CLASS TEST SYSTEM CUT-OFF CONCENTRATIONS ARE FOLLOWS: Normal [facility] Comment on above: Performed By: #### D RUGRPD ####[facility] [address] [place] [id number]. Bella Jerome mAMP Negative Normal NEGATIVE [facility] Comment on above: Performed By: #### D RUGRPD ####[facility] [address] [place] [id number]. Bella Jerome MTD Negative Normal NEGATIVE [facility] Comment on above: Performed By: #### D RUGRPD ####[facility] [address] [place] [address]Dr. Bella Jerome OPI Negative Normal NEGATIVE [facility] Comment on above: Performed By: #### D RUGRPD ####[facility] [address] [place], [place] [address]Dr. Bella Jerome OXY Negative Normal NEGATIVE [facility] Comment on above: Performed By: #### D RUGRPD ####[facility] [address] [place], [place] [address]Dr. Bella Jerome PCP Negative Normal NEGATIVE [facility] Comment on above: Performed By: #### D RUGRPD ####[facility] [address] [place], [place] [address]Dr. Bella Jerome PPX Negative Normal NEGATIVE [facility] Comment on above: Performed By: #### D RUGRPD ####[facility] [address] [place], [place] [address]Dr. Bella Jerome TCA Negative Normal NEGATIVE [facility] Comment on above: Performed By: #### D RUGRPD ####[facility] [address] [place] [address]Dr. Bella Jerome THC Negative Normal NEGATIVE [facility] Comment on above: Performed By: #### D RUGRPD ####[facility] [address] [place], [place] [address]Dr. Bella Jerome TYPE AND SCREENon 09-05-2022 TYPE AND SCREEN Negative Normal [facility] Comment on above: Performed By: #### T NS ####[facility] [address] [place], [place] [address]Dr. Liwally Jerome US PREG BIOPHY W NON STRESSo n 08-31-2022 US PREG BIOPHY W NON STRESS EXAMINATION: US PREG BIOPHY W NON STRESS HISTORY: Finding of increased blood pressure COMPARISON: No relevant comparison available. TECHNIQUE: Ultrasound biophysical profile was performed in the radiology department. FINDINGS: BREATHING MOVEMENTS: 2.0 GROSS BODY MOVEMENTS: 2.0 TONE: 2.0 QUALITATIVE AMNIOTIC FLUID VOLUME: 2.0 PRESENTATION: CEPHALIC HEART RATE: 138.5 bpm H.B./min AMNIOTIC FLUID VOLUME: 14.5 cm cm GESTATIONAL AGE: 38 weeks 1 days CONCLUSION: Total biophysical profile score: 8.0 Electronically authenticated by: MANUELITO GREGG Date: 2022-08-31 17:06 Normal [facility] US PREG GROWTHon 08-30-2022 US PREG GROWTH EXAMINATION: US PREG GROWTH HISTORY: Large for gestation age fetus COMPARISON: No relevant comparison available. FINDINGS: Heart Rate: 153.0 bpm Amniotic Fluid Volume: 14.0 cm Number: 1.0 Position: Cephalic presentation Maximum Vertical Pocket: 5.7 cm cm 3.2 cm cm 1.6 cm cm 3.6 cm cm BIOMETRY: BPD: 9.1 cm cm; 36 weeks 5 days; 38% HC: 33.9 cmcm; 39 weeks 0 days, 54% AC: 35.0 cm cm; 38 weeks 6 days, 87% FL: 7.0 cm cm; 36 weeks 1 days; 11.1 % % EFW: 3372.2 grams, 7 lbs. 11 oz., 63% FL/AC: 20.1 FL/BPD: 77.7 HC/AC: 1.0 GESTATIONAL AGE: Age by EDC: 38 weeks 0 days HERNANDO by EDC: 09/13/2022 Age by US: 37 weeks 5 days HERNANDO by US: 09/15/2022 IMPRESSION: Normal interval growth Electronically authenticated by: MANUELITO GREGG Date: 2022-08-30 17:59 Normal [facility] US PREG BIOPHY W NON STRESSo n 08-24-2022 US PREG BIOPHY W NON STRESS EXAMINATION: US PREG BIOPHY W NON STRESS HISTORY: Finding of increased blood pressure COMPARISON: No relevant comparison available. TECHNIQUE: Ultrasound biophysical profile was performed in the radiology department. FINDINGS: BREATHING MOVEMENTS: 2.0 GROSS BODY MOVEMENTS: 2.0 TONE: 2.0 QUALITATIVE AMNIOTIC FLUID VOLUME: 2.0 PRESENTATION: CEPHALIC HEART RATE: 161.7 bpm H.B./min AMNIOTIC FLUID VOLUME: 14.0 cm cm GESTATIONAL AGE: 37 weeks 1 days CONCLUSION: Total biophysical profile score: 8.0 Electronically authenticated by: MANUELITO GREGG Date: 2022-08-24 17:10 Normal [facility] FREE T4on 08-21-2022 Free T4 [Mass/Vol] 0.90 ng/dL Normal 0.76-1.46 [facility] Comment on above: Performed By: #### C BC #### [facility] [address] [place] [address] [address] Bella Jerome TSHon 08-21-2022 TSH 1.033 uIU/mL Normal 0.358-3.740 [facility] Comment on above: Performed By: #### H H #### [facility] [address] [place] [address] [address] Bella Jerome US PREG BIOPHY W NON STRESSo n 08-17-2022 US PREG BIOPHY W NON STRESS EXAMINATION: US PREG BIOPHY W NON STRESS HISTORY: Finding of increased blood pressure COMPARISON: No relevant comparison available. TECHNIQUE: Ultrasound biophysical profile was performed in the radiology department. non-reactive stress testing was performed by nursing staff in the birthing center. FINDINGS: BREATHING MOVEMENTS: 2.0 GROSS BODY MOVEMENTS: 2.0 TONE: 2.0 QUALITATIVE AMNIOTIC FLUID VOLUME: 2.0 PRESENTATION: CEPHALIC HEART RATE: 140.6 bpm H.B./min AMNIOTIC FLUID VOLUME: 13.6 cm cm GESTATIONAL AGE: 36 weeks 1 days CONCLUSION: Total biophysical profile score: 8.0 Electronically authenticated by: MANUELITO GREGG Date: 2022-08-17 18:33 Normal [facility] GROUP B STREP CULTUREon 07-28 S. agalactiae Ag Ql (Unsp spec) Culture Observations: NEGATIVE FOR GROUP B STREPTOCOCCUS. Normal [facility] Comment on above: Performed By: #### G BSCX ####[facility] [address] [place] [address]Dr. Bella Jerome US PREG BIOPHY W NON STRESSo n 08-10-2022 US PREG BIOPHY W NON STRESS EXAMINATION: US PREG BIOPHY W NON STRESS HISTORY: Finding of increased blood pressure COMPARISON: No relevant comparison available. TECHNIQUE: Ultrasound biophysical profile was performed in the radiology department. FINDINGS: BREATHING MOVEMENTS: 2.0 GROSS BODY MOVEMENTS: 2.0 TONE: 2.0 QUALITATIVE AMNIOTIC FLUID VOLUME: 2.0 PRESENTATION: CEPHALIC HEART RATE: 141.4 bpm H.B./min AMNIOTIC FLUID VOLUME: 9.4 cm cm GESTATIONAL AGE: 35 weeks 1 days CONCLUSION: Total biophysical profile score: 8.0 Electronically authenticated by: MANUELITO GREGG Date: 2022-08-10 16:36 Normal [facility] US PREG GROWTHon 08-10-2022 US PREG GROWTH EXAMINATION: US PREG GROWTH HISTORY: Excessive growth affecting management of mother COMPARISON: No relevant comparison available. FINDINGS: Heart Rate: 141.4 bpm Amniotic Fluid Volume: 9.4 cm Number: 1.0 Position: Cephalic presentation, longitudinal lie Maximum Vertical Pocket: 2.2 cm cm 2.2 cm cm 3.1 cm cm 1.9 cm cm BIOMETRY: BPD: 8.5 cm cm; 34 weeks 2 days; 29% HC: 31.6 cmcm; 35 weeks 3 days, 24% AC: 31.6 cm cm; 35 weeks 4 days, 70% FL: 6.6 cm cm; 34 weeks 1 days; 17.8 % % EFW: 2576.6 grams, 5 lbs. 11 oz., 44% FL/AC: 20.9 FL/BPD: 77.7 HC/AC: 1.0 GESTATIONAL AGE: Age by EDC: 35 weeks 1 days HERNANDO by EDC: 09/13/2022 Age by US: 34 weeks 6 days HERNANDO by US: 09/15/2022 IMPRESSION: Normal interval growth Electronically authenticated by: MANUELITO GREGG Date: 2022-08-10 16:37 Normal [facility] US PREG GROWTHon 07-25-2022 US PREG GROWTH EXAMINATION: US PREG GROWTH HISTORY: Large for gestation age fetus COMPARISON: No relevant comparison available. FINDINGS: Heart Rate: 149.0 bpm Amniotic Fluid Volume: 11.8 cm Number: 1.0 Position: Cephalic presentation, longitudinal lie Maximum Vertical Pocket: 5.3 cm cm 1.8 cm cm 3.4 cm cm 1.3 cm cm BIOMETRY: BPD: 8.4 cm cm; 33 weeks 5 days; 68% HC: 30.6 cmcm; 34 weeks 1 days, 45% AC: 29.7 cm cm; 33 weeks 5 days, 74% FL: 6.5 cm cm; 33 weeks 3 days; 55.4 % % EFW: 2245.3 grams, 4 lbs. 15 oz., 66% FL/AC: 21.9 FL/BPD: 77.5 HC/AC: 1.0 GESTATIONAL AGE: Age by EDC: 32 weeks 6 days HERNANDO by EDC: 09/13/2022 Age by US: 33 weeks 5 days HERNANDO by US: 09/07/2022 IMPRESSION: Normal interval growth Electronically authenticated by: MANUELITO GREGG Date: 2022-07-25 18:18 Normal [facility] FREE T4on 07-24-2022 Free T4 [Mass/Vol] 0.98 ng/dL Normal 0.76-1.46 [facility] Comment on above: Performed By: #### F T4 #### [facility] [address] [place] [address] Dr. Bella Jerome TSHon 07-24-2022 TSH 1.196 uIU/mL Normal 0.358-3.740 [facility] Comment on above: Performed By: #### T SH ####[facility] [address] [place] [address]Dr. Bella Jerome UA (CLEAN/CATCH) PARTS SALVAGER/MICRO I F IND.on 07-20-2022 Bilirubin Ql (U) Negative Normal NEGATIVE [facility] Comment on above: Performed By: #### H H #### [facility] [address] [place] [address] Dr. Bella Jerome Clarity (U) CLEAR Normal CLEAR [facility] Comment on above: Performed By: #### H H #### [facility] [address] [place] [address] [address] Bella Jerome Color (U) LT. YELLOW Normal YELLOW [facility] Comment on above: Performed By: #### H H #### [facility] [address] [place] [address] Dr. Bella Jerome Glucose Ql (U) Negative Normal NEGATIVE [facility] Comment on above: Performed By: #### H H #### [facility] [address] [place] [address] Dr. Bella Jerome Hemoglobin Ql (U) Negative Normal NEGATIVE [facility] Comment on above: Performed By: #### H H #### [facility] [address] [place] [address] Dr. Bella Jerome Ketones Ql (U) Negative Normal NEGATIVE [facility] Comment on above: Performed By: #### H H #### [facility] [address] [place] [address] Dr. Bella Jerome LEUKOCYTES Negative Normal NEGATIVE [facility] Comment on above: Performed By: #### H H #### [facility] [address] [place] [address] Dr. Bella Jerome Nitrite Ql (U) Negative Normal NEGATIVE [facility] Comment on above: Performed By: #### H H #### [facility] [address] [place] [address] Dr. Bella Jerome pH (U) 7.0 [pH] Normal 5-9 [facility] Comment on above: Performed By: #### H H #### [facility] [address] [place] [address] Dr. Bella Jerome SPEC GRAVITY <=1.005 Abnormal 1.005-<=1.025 [facility] Comment on above: Performed By: #### H H #### [facility] [address] [place] [address] Dr. Bella Jerome UA PROTEIN Negative Normal NEGATIVE/ TRACE [facility] Comment on above: Performed By: #### H H #### [facility] [address] [place] [address] Dr. Bella Jerome UR MICRO IND NOT INDICATED Normal [facility] Comment on above: Performed By: #### H H #### [facility] [address] [place] [address] Dr. Bella Jerome Urobilinogen Qn (U) 0.2 {Kimberlee'U}/dL Normal 0.2 - 1. 0 [facility] Comment on above: Performed By: #### H H #### [facility] [address] [place] [address] [address] Bella Jerome PREG GROWTHon 06-27-2022 US PREG GROWTH EXAMINATION: US PREG GROWTH HISTORY: Large for gestation age fetus COMPARISON: No relevant comparison available. FINDINGS: Heart Rate: 155.0 bpm Number: 1.0 Position: CEPHALIC Amniotic Fluid Volume: 16.2 cm Maximum Vertical Pocket: 5.4 cm BIOMETRY: BPD: 7.3 cm cm; 29 weeks 3 days HC: 27.1 cmcm; 29 weeks 4 days AC: 25.5 cm cm; 29 weeks 5 days FL: 5.9 cm cm; 30 weeks 5 days EFW: 1486.8 grams 78% FL/AC: 23.0 FL/BPD: 80.2 HC/AC: 1.1 GESTATIONAL AGE: Age by EDC: 28 weeks 6 days HERNANDO by EDC: 09/13/2022 Age by US: 29 weeks, 6 days HERNANDO by US: 09/06/2022 IMPRESSION: 1. Single live intrauterine with growth detailed above. Electronically authenticated by: RAGINI SANTOS Date: 2022-06-27 16:23 Normal [facility] FREE T4on 06-20-2022 Free T4 [Mass/Vol] 0.82 ng/dL Normal 0.76-1.46 [facility] Comment on above: Performed By: #### H H #### [facility] [address] [place] [address] [address] Bella Jerome GLUCOSE - 1HRon 06-20-2022 Glucose [Mass/Vol] 127 mg/dL Critically high 74-106 [facility] Comment on above: Performed By: #### H H #### [facility] [address] [place] [address] [address] Bella Jerome HEMOGRAM AND PLATELon 2021 Hematocrit (Bld) [Volume fraction] 32.4 % Critically low 36.0-48.0 [facility] Comment on above: Performed By: #### H H #### [facility] [address] [place] [address] Dr. Bella Jerome Hemoglobin (Bld) [Mass/Vol] 10.9 g/dL Critically low 12.0-16.0 [facility] Comment on above: Performed By: #### H H #### [facility] [address] [place] [address] [address] Bella Jerome MCH (RBC) [Entitic mass] 32.9 pg Normal 26.7-34.0 [facility] Comment on above: Performed By: #### H H #### [facility] [address] [place] [address] [address] Bella Jerome MCHC (RBC) [Mass/Vol] 33.6 g/dL Normal 29.9-35.2 [facility] Comment on above: Performed By: #### H H #### [facility] [address] [place] [address] [address] Bella Jerome MCV (RBC) [Entitic vol] 97.9 fL Normal 81.0-99.0 [facility] Comment on above: Performed By: #### H H #### [facility] [address] [place] [address] [address] Bella Jerome PLT 241 103/ul Normal 150-450 [facility] Comment on above: Performed By: #### H H #### [facility] [address] [place] [address] [address] Bella Jerome RBC 3.31 106/ul Critically low 4.20-5.40 [facility] Comment on above: Performed By: #### H H #### [facility] [address] [place] [address] [address] Bella Jerome WBC 11.3 103/ul Critically high 4.0-11.0 [facility] Comment on above: Performed By: #### H H #### [facility] [address] [place] [address] Dr. Bella Jerome TSHon 06-20-2022 TSH 3.044 uIU/mL Normal 0.358-3.740 [facility] Comment on above: Performed By: #### C BC #### [facility] [address] [place] [address] Dr. Bella Jerome US PREG INCOMPLETE ANATOMYon 05-24-2022 US PREG INCOMPLETE ANATOMY EXAMINATION: US PREG INCOMPLETE ANATOMY HISTORY: screening COMPARISON: Ultrasound anatomy 04/26/2022 FINDINGS: Presentation: Cephalic Heart rate: 154 bpm Anatomy: Cervical, thoracic, and lumbar spine HERNANDO: 09/13/2022 IMPRESSION: 1. Adequate visualization of the cervical, thoracic, and lumbar spine; no appreciable abnormality. Electronically authenticated by: RAGINI SANTOS Date: 2022-05-24 17:33 Normal [facility] US PREG ANATOMY SINGLEon US PREG ANATOMY SINGLE EXAMINATION: US PREG ANATOMY SINGLE HISTORY: anatomy study COMPARISON: No relevant comparison available. TECHNIQUE: Transabdominal sonographic examination was performed for obstetrical and evaluation. FINDINGS: Number: 1 Heart Rate: 147 H.B. /min Amniotic Fluid Volume: Subjectively normal position: Breech presentation, longitudinal lie Placental Location: Anterior, grade 0. Placental edge is 7.6 cm from the internal os Cervix Length: 4.6 cm, closed Normally visualized anatomy: Cerebellum, choroid plexus, cisterna magna, lateral cerebral ventricles, orbits, midline falx, hard palate, four-chamber heart, RVOT, LVOT, stomach, kidneys, bladder, umbilical cord insertion into the abdomen, three-vessel cord, right upper extremity, left upper extremity, right lower extremity, left lower extremity Suboptimally visualized anatomy: cervical spine, thoracic spine, lumbar spine, sacral spine BIOMETRY: BPD: 4.7 cm, 20 weeks 1 day, 58% HC: 17.28 cm, 19 weeks 6 days, 34% AC: 14.6 cm, 19 weeks 6 days, 41% FL: 3.2 cm, 20 weeks 0 days, 42% EFW:322 g, 11 ounces, 42%; FL/AC: 22 FL/BPD: 68.4 HC/AC: 1.18 GESTATIONAL AGE: Age by EDC: 20 weeks 0 days HERNANOD by EDC: 09/13/2022 Age by current US: 20 weeks 0 days HERNANDO by current US: 09/13/2022 IMPRESSION: Suboptimal visualization of the spine, otherwise normal anatomy scan *Reference: [employer] Practice Guideline for the performance of Obstetric Ultrasound Examinations, July 28, 2007. Electronically authenticated by: MANUELITO GREGG Date: 2022-04-26 16:54 Normal [facility] CHLAMYDIA/GONOCOCCUS FAVIAN (SW AB/URINE/PAPon 04-19-2022 Chlamydia trachomatis, FAVIAN Negative Normal Negative [facility] Comment on above: Performed By: #### C T/NGNA ####[facility] [address] [place] [address]Dr. Bella Jerome Neisseria gonorrhoeae, FAVIAN Negative Normal Negative [facility] Comment on above: Performed By: #### C T/NGNA ####[facility] [address] [place] [address]Dr. Bella Jerome VAGINITIS/VAGINOSIS DNA PROB Leonid 04-18-2022 Jessica species Negative Normal Negative [facility] Comment on above: Performed By: #### H H #### [facility] [address] [place] [address] [address] Bella Jerome Gardnerella vaginalis Negative Normal Negative [facility] Comment on above: Performed By: #### H H #### [facility] [address] [place] [address] [address] Bella Jerome Trichomonas vaginalis Negative Normal Negative [facility] Comment on above: Performed By: #### H H #### [facility] [address] [place] [address] [address] Bella Jerome FREE T4on 04-05-2022 Free T4 [Mass/Vol] 0.88 ng/dL Normal 0.76-1.46 [facility] Comment on above: Performed By: #### F T4 #### [facility] [address] [place] [address] [address] Bella Jerome TSHon 04-05-2022 TSH 1.786 uIU/mL Normal 0.358-3.740 [facility] Comment on above: Performed By: #### T SH ####[facility] [address] [place] [address]Dr. Bella Jerome TSH RANGE SEE BELOW Normal [facility] Comment on above: Result Comment: <0.3 4 UIU/ml HYPERTHYROID 0.34-5.60 UIU/ml EUTHYROID >5.60 UIU/ml HYPOTHYROID Performed By: #### T SH ####[facility] [address] [place] [address]Dr. Bella Jerome FREE T4on 02-26-2022 Free T4 [Mass/Vol] 1.06 ng/dL Normal 0.76-1.46 [facility] Comment on above: Performed By: #### C BC #### [facility] [address] [place], [place] [address] Dr. Bella Jerome TSHon 02-26-2022 TSH 2.024 uIU/mL Normal 0.470-4.680 [facility] Comment on above: Performed By: #### C BC #### [facility] [address] [place] [address] [address] Bella Jerome TSH RANGE SEE BELOW Normal [facility] Comment on above: Result Comment: <0.3 4 UIU/ml HYPERTHYROID 0.34-5.60 UIU/ml EUTHYROID >5.60 UIU/ml HYPOTHYROID Performed By: #### C BC #### [facility] [address] [place] [address] [address] Bella Jerome Vital Signs Date Time Vital Sign Value Performing Clinician Facility 10-31-2023 15:00-0500 Body height 160.02 cm Sandra Austin Other [facility] Other 10-31-2023 15:00-0500 Body mass index (BMI) [Ratio] 45.41 kg/m2 Sandra Austin Other [facility] Other 10-31-2023 15:00-0500 Body temperature 98.5 [degF] Sandra Austin Other [facility] Other 10-31-2023 15:00-0500 Body weight 116.3 kg Sandra Austin Other [facility] Other 10-31-2023 15:00-0500 Diastolic blood pressure 80 mm[Hg] Sandra Austin Other [facility] Other 10-31-2023 15:00-0500 Respiratory rate 18 /min Sandra Geovanna Other [facility] Other 10-31-2023 15:00-0500 SaO2% (BldA) [Mass fraction] 98 % Sandra Geovanna Other [facility] Other 10-31-2023 15:00-0500 Systolic blood pressure 128 mm[Hg] Sandra Keerthile Other [facility] Other 06-24-2023 14:30-0400 Body height 160.02 cm Sandra Geovanna Other [facility] Other 06-24-2023 14:30-0400 Body mass index (BMI) [Ratio] 44.87 kg/m2 Sandra Geovanna Other [facility] Other 06-24-2023 14:30-0400 Body weight 114.9 kg Sandra Geovanna Other [facility] Other 06-24-2023 14:30-0400 Diastolic blood pressure 60 mm[Hg] Sandra Keerthile Other [facility] Other 06-24-2023 14:30-0400 Respiratory rate 18 /min Sandra Keerthile Other [facility] Other 06-24-2023 14:30-0400 SaO2% (BldA) [Mass fraction] 99 % Sandra Keerthile Other [facility] Other 06-24-2023 14:30-0400 Systolic blood pressure 110 mm[Hg] Sandra Austin Other [facility] Other 04-15-2023 09:25-0400 Body height 160.02 cm Ramonita Greenberg Other [facility] Other 04-15-2023 09:25-0400 Body mass index (BMI) [Ratio] 41.8 kg/m2 Ramonita Greenberg Other [facility] Other 04-15-2023 09:25-0400 Body temperature 98.5 [degF] Ramonita Greenberg Other [facility] Other 04-15-2023 09:25-0400 Body weight 107.05 kg Ramonita Greenberg Other [facility] Other 04-15-2023 09:25-0400 Respiratory rate 18 /min Ramonita Greenberg Other [facility] Other 04-15-2023 09:25-0400 SaO2% (BldA) [Mass fraction] 97 % Ramonita Greenberg Other [facility] Other 02-21-2023 14:45-0400 Body height 160.02 cm Sandra Austin Other [facility] Other 02-21-2023 14:45-0400 Body mass index (BMI) [Ratio] 41.39 kg/m2 Sandra Austin Other [facility] Other 02-21-2023 14:45-0400 Body weight 106.01 kg Sandra Austin Other [facility] Other 02-21-2023 14:45-0400 Diastolic blood pressure 60 mm[Hg] Sandra Austin Other [facility] Other 02-21-2023 14:45-0400 Respiratory rate 18 /min Sandra Austin Other [facility] Other 02-21-2023 14:45-0400 SaO2% (BldA) [Mass fraction] 98 % Sandra Austin Other [facility] Other 02-21-2023 14:45-0400 Systolic blood pressure 110 mm[Hg] Sandra Austin Other [facility] Other 12-24-2022 14:30-0500 Body height 160.02 cm Sandra Austin Other [facility] Other 12-24-2022 14:30-0500 Body mass index (BMI) [Ratio] 40.83 kg/m2 Sandra Geovanna Other [facility] Other 12-24-2022 14:30-0500 Body weight 104.55 kg Sandra Geovanna Other [facility] Other 12-24-2022 14:30-0500 Diastolic blood pressure 70 mm[Hg] Sandra Austin Other [facility] Other 12-24-2022 14:30-0500 Respiratory rate 18 /min Sandra Austin Other [facility] Other 12-24-2022 14:30-0500 SaO2% (BldA) [Mass fraction] 99 % Sandra Austin Other [facility] Other 12-24-2022 14:30-0500 Systolic blood pressure 118 mm[Hg] Sandra Austin Other [facility] Other 12-21-2021 16:30-0500 Body height 160.02 cm Sandra Austin Other [facility] Other 12-21-2021 16:30-0500 Body mass index (BMI) [Ratio] 38.58 kg/m2 Sandra Austin Other [facility] Other 12-21-2021 16:30-0500 Body temperature 97.3 [degF] Sandra Austin Other [facility] Other 12-21-2021 16:30-0500 Body weight 98.79 kg Sandra Austin Other [facility] Other 12-21-2021 16:30-0500 Diastolic blood pressure 60 mm[Hg] Sandra Austin Other [facility] Other 12-21-2021 16:30-0500 Respiratory rate 18 /min Sandra Austin Other [facility] Other 12-21-2021 16:30-0500 SaO2% (BldA) [Mass fraction] 99 % Sandra Austin Other [facility] Other 12-21-2021 16:30-0500 Systolic blood pressure 118 mm[Hg] Sandra Austin Other [facility] Other Encounters Encounter Date Encounter Type Care Provider Facility Start: 10-31-2023 End: 10-31-2023 ambulatory Sandra Austin Other [facility] Other Start: 10-31-2023 Office outpatient vi sit 25 minutes Sandra Austin [facility] Start: 07-19-2023 End: 07-19-2023 ambulatory Sandra Geovanna Other [facility] Other Start: 07-19-2023 Telephone encounter Sandra Geovanna [facility] Start: 06-24-2023 End: 06-24-2023 ambulatory Sandra Geovanna Other [facility] Other Start: 06-24-2023 Office outpatient vi sit 25 minutes Sandra Austin [facility] Start: 06-04-2023 End: 06-04-2023 ambulatory Sandra Austin Other [facility] Other Start: 06-04-2023 Telephone encounter Sandra Geovanna [facility] Start: 04-15-2023 End: 04-15-2023 ambulatory Ramonita Yari Other [facility] Other Start: 04-15-2023 Office outpatient vi sit 15 minutes Ramonitabrad Greenberg [facility] Start: 04-11-2023 End: 04-11-2023 ambulatory Sandra Austin Other [facility] Other Start: 04-11-2023 Telephone encounter Sandra Geovanna [facility] [place] Start: 02-21-2023 Office outpatient vi sit 25 minutes Sandra Ausitn [facility] [place] Start: 02-21-2023 End: 02-22-2023 ambulatory SANDRA GEOVANNA [facility] Other Start: 01-04-2023 End: 01-04-2023 ambulatory Sandra Austin Other [facility] Other Start: 01-04-2023 Telephone encounter Sandra Austin Pa[facility] [place] Start: 12-30-2022 Encounter for genera l adult medical examination without abnormal findings SANDRA AUSTIN [facility] Start: 12-27-2022 End: 12-27-2022 ambulatory Sandra Austin Other [facility] Other Start: 12-27-2022 Telephone encounter Sandra Geovanna [facility] Start: 12-26-2022 End: 12-27-2022 ambulatory SANDRA AUSTIN Facility:[facility] Start: 12-26-2022 End: 12-27-2022 Encounter for general adult medical examination without abnormal findings SANDRA AUSTIN Facility:[facility] Start: 12-24-2022 End: 12-24-2022 ambulatory Sandra Austin Other [facility] Other Start: 12-24-2022 Encounter for genera l adult medical examination without abnormal findings Sandra Austin [facility] [place] Start: 12-24-2022 Periodic preventive med est patient 18-39 yrs Sandra Austin [facility] [place] Start: 12-10-2022 End: 12-10-[address] AGUS SANTO . Facility:[facility] Start: 09-12-2022 End: 10-11-[address] AGUS SANTO . Facility:[facility] Start: 09-10-2022 End: 09-10-[address] AGUS SANTO . Facility:[facility] Start: 09-05-2022 End: 09-08-2022 Evaluation and management of inpatient DR AGUS SANTO . Facility:[facility] Start: 08-31-2022 End: 08-31-[address] AGUS SANTO . Facility:[facility] Start: 08-30-2022 End: 08-31-2022 ambulatory SANDRA AUSTIN Facility:[facility] Start: 08-24-2022 End: 08-24-2022 ambulatory SANDRA AUSTIN Facility:[facility] Start: 08-21-2022 End: 08-22-2022 ambulatory SANDRA AUSTIN Facility:[facility] Start: 08-17-2022 End: 08-17-2022 ambulatory VIRGINIALINDSEY TORRES Facility:[facility] Start: 08-15-2022 End: 08-15-[address] AGUS SANTO . Facility:[facility] Start: 08-10-2022 End: 08-10-2022 ambulatory SANDRA AUSTIN Facility:[facility] Start: 07-25-2022 End: 07-26-2022 ambulatory SANDRA KAPLE Facility:[facility] Start: 07-24-2022 End: 07-25-2022 ambulatory SANDRA KAPLE Facility:[facility] Start: 07-20-2022 End: 07-20-2022 ambulatory SANDRA KAPLE Facility:[facility] Start: 06-27-2022 End: 06-28-2022 ambulatory SANDRA KAPLE Facility:[facility] Start: 06-20-2022 End: 06-21-2022 ambulatory SANDRA KAPLE Facility:[facility] Start: 05-24-2022 End: 05-25-2022 ambulatory SANDRA KAPLE Facility:[facility] Start: 04-26-2022 End: 04-27-2022 ambulatory SANDRA KAPLE Facility:[facility] Start: 04-17-2022 End: 04-17-2022 ambulatory SANDRA KAPLE Facility:[facility] Start: 04-05-2022 End: 04-06-2022 ambulatory SANDRA KAPLE Facility:[facility] Start: 02-26-2022 End: 02-27-2022 ambulatory SANDRA KAPLE Facility:[facility] Start: 12-21-2021 End: 12-21-2021 ambulatory Sandra Austin Other [facility] Other Start: 12-21-2021 Office outpatient ne w 45 minutes Sandra Austin [facility] [place] Procedures Date Procedure Procedure Detail Performing Clinician Start: 09-06-2022 Delivery of Products of Conception, External Approach SANDRA ASUTIN Start: 09-06-2022 Division of Female P erineum, External Approach SANDRA AUSTIN Start: 09-06-2022 Drainage of Amniotic Fluid, Therapeutic from Products of Conception, Via Natural or Artificial Opening SANDRA AUSTIN Start: 09-06-2022 Introduction of Horm one into Female Reproductive, Via Natural or Artificial Opening SANDRA AUSTIN Start: 09-06-2022 Introduction of Othe r Hormone into Peripheral Vein, Percutaneous Approach SANDRA AUSTIN Start: 09-06-2022 Repair Perineum Musc le, Open Approach SANDRA AUSTIN Payers Date Payer Category Payer Unknown [id number] 2.16.84 [id number] 1997 Unknown [id number] 2.16.84 [id number] 1997 Unknown [id number] 2.16.84 0.1.428188.3.579.2.593 1997 Unknown [id number] 2.16.84 0.1.672067.3.579.2.593 1997 Unknown [id number] 2.16.84 0.1.445006.3.579.2.593 1997 Unknown [id number] 2.16.84 0.1.511202.3.579.2.593 1997 Unknown [id number] 2.16.84 0.1.060993.3.579.2.593 1997 Unknown [id number] 2.16.84 0.1.376352.3.579.2.593 1997 Unknown [id number] 2.16.84 0.1.175239.3.579.2.593 1997 Unknown [id number] 2.16.84 0.1.157771.3.579.2.593 1997 Unknown [id number] 2.16.84 0.1.686475.3.579.2.593 1997 Unknown [id number] 2.16.84 0.1.221651.3.579.2.593 1997 Unknown [id number] 2.16.84 0.1.881196.3.579.2.593 1997 Unknown [id number] 2.16.84 0.1.228285.3.579.2.593 1997 Unknown [id number] 2.16.84 0.1.899865.3.579.2.593 1997 Unknown [id number] 2.16.84 0.1.701071.3.579.2.593 1997 Unknown [id number] 2.16.84 0.1.936204.3.579.2.593 1997 Unknown [id number] 2.16.84 0.1.077125.3.579.2.593 1997 Unknown [id number] 2.16.84 0.1.737181.3.579.2.593 1997 Unknown [id number] 2.16.84 0.1.142282.3.579.2.593 1997 Unknown [id number] 2.16.84 0.1.676314.3.579.2.593 1997 Unknown [id number] 2.16.84 0.1.984561.3.579.2.593 1997 Unknown [id number] 2.16.84 0.1.446424.3.579.2.593 1957 Medicaid [id number] 2. [id number] 1957 Private Health Insurance [id number] Unknown [id number] . [id number] Social History Date Type Detail Facility Sex Assigned At [facility] Other Clinical Notes 12-21-2021 to 10-31-2023 Note Date & Type Note Facility 10-31-2023 Evaluation note Encounter Date Diagnosis Assessment Notes Oct, Prediabetes (ICD-10 - R73.03) In office hgba1c shows good control with diet and exercise. Will continue current treatment plan. Patient is advised to work on healthy diet choices and appropriate servings, weight control, regular exercise as directed, reduced fat intake, and salt avoidance. Patient voiced understanding of this and agrees to this plan. Oct, PCOS (polycystic ovarian syndrome) (ICD-10 - E28.2) She will continue to follow with OB-INSTRUCTIONAL DESIGNER and continue healthy lifestyle changes that she has made. Specialty notes reviewed as received. Patient is advised to work on healthy diet choices and appropriate servings, weight control, regular exercise as directed, reduced fat intake, and salt avoidance. Patient voiced understanding of this and agrees to this plan. Oct, Other specified hypothyroidism (ICD-10 - E03.8) UTD with lab work. Continue Synthroid 50 mcg daily. Oct, Anxiety (ICD-10 - F41.9) No suicidal or homicidal ideations. Stable without medication. Oct, Vitamin D insufficiency (ICD-10 - E55.9) UTD with lab work. Continue 6,000 units daily of Vitamin D. Oct, Severe obesity (BMI >= 40) (ICD-10 - E66.01) Patient is advised to work on healthy diet choices and appropriate servings, weight control, regular exercise as directed, reduced fat intake, and salt avoidance. Patient voiced understanding of this and agrees to this plan. Oct, Bronchitis (ICD-10 - J40) Discussed diagnosis with patient. Patient to start Zithromax. Patient to take Zithromax daily with food as prescribed. Finish entire course of antibiotic. Increase fluids and rest. [id number] antipyretics as needed. Warning signs and symptoms reviewed with patient today. Patient to go immediately to the ER should she experience any of these. Patient to notify office should her symptoms persist and not improve. Patient verbalizes understanding and agrees to treatment plan. [facility] Other 09-22-2023 Evaluation note* Encounter Date Diagnosis Assessment Notes Treatment Notes Treatment Clinical Notes Jun, Vitamin D insufficiency (ICD-10 - E55.9) [facility] Other 08-28-2023 Evaluation note* Encounter Date Diagnosis Assessment Notes Treatment Notes Treatment Clinical Notes May, Prediabetes (ICD-10 - R73.03) Recent lab work reviewed with her from [facility]. In office hgba1c shows good control with diet and exercise. Will continue current treatment plan. Patient is advised to work on healthy diet choices and appropriate servings, weight control, regular exercise as directed, reduced fat intake, and salt avoidance. Patient voiced understanding of this and agrees to this plan. May, PCOS (polycystic ovarian syndrome) (ICD-10 - E28.2) She will continue to follow with OB-INSTRUCTIONAL DESIGNER and continue healthy lifestyle changes that she has made. Specialty notes reviewed as received. Patient is advised to work on healthy diet choices and appropriate servings, weight control, regular exercise as directed, reduced fat intake, and salt avoidance. Patient voiced understanding of this and agrees to this plan. May, Other specified hypothyroidism (ICD-10 - E03.8) Lab work reviewed with patient. It appears she is not getting enough thyroid medication. Will increase to Synthroid 50 mcg daily. Recheck in 6 weeks. May, Anxiety (ICD-10 - F41.9) No suicidal or homicidal ideations. Stable without medication. May, Vitamin D insufficiency (ICD-10 - E55.9) Reviewed recent lab work with patient. Almost to goal on the 5,000 units daily. Will increase to 6,000 units daily and recheck in 6 weeks. May, Severe obesity (BMI >= 40) (ICD-10 - E66.01) Patient is advised to work on healthy diet choices and appropriate servings, weight control, regular exercise as directed, reduced fat intake, and salt avoidance. Patient voiced understanding of this and agrees to this plan. May, Right ear pain (ICD-10 - H92.01) She has had right ear itching and burning pain for a few months now not relieved with Ciprodex, Flonase, or antihistamines. Referral sent to ENT today. Specialty notes reviewed as received. [facility] Other 08-08-2023 Evaluation note* Encounter Date Diagnosis Assessment Notes Treatment Notes Treatment Clinical Notes May, Other atopic dermatitis (ICD-10 - L20.89) May, Acute otitis externa of both ears, unspecified type (ICD-10 - H60.503) [facility] Other 06-19-2023 Evaluation note* Encounter Date Diagnosis Assessment Notes Treatment Notes Treatment Clinical Notes 19 Keith, 2023 Sore throat (ICD-10 - J02.9) Mar, Strep pharyngitis (ICD-10 - J02.0) Strep throat material was printed Drink plenty fluids, get plenty of rest. Take the amoxicillin as prescribed until gone. Take Tylenol or Motrin as needed for aches pains or fevers. Off work today and tomorrow. Follow-up with family physician if no improvement in 2 to 3 days [facility] Other 06-15-2023 Evaluation note* Encounter Date Diagnosis Assessment Notes Treatment Notes Treatment Clinical Notes Mar, Anxiety (ICD-10 - F41.9) [facility] Other 04-27-2023 Evaluation note* Encounter Date Diagnosis Assessment Notes Treatment Notes Treatment Clinical Notes Jan, Mastitis, left, acute (ICD-10 - N61.0) Discussed likely dx with her. Likely caught mastitis early. Will treat with rx of Cephalexin and she is recommended to pump as much as she is able to to get this to resolve. Warm compresses as needed. Notify office should symptoms persist and not improve. Jan, Vitamin D insufficiency (ICD-10 - E55.9) Taking 2000 units daily. Reviewed her levels with her and she is still on the low side. Will increase her to 5000 units daily. Will plan on rechecking her at her visit in May. Jan, Anxiety (ICD-10 - F41.9) No suicidal or homicidal ideations. She is doing very well on Celexa 40 mg daily. Will continue this. Jan, Other Alk phos rec heck remained about the same, should normalize over post period. Will plan on rechecking this at May appointment. [facility] Other 03-10-2023 Evaluation note* Encounter Date Diagnosis Assessment Notes Treatment Notes Treatment Clinical Notes Dec, Bacterial conjunctivitis (ICD-10 - H10.9) [facility] Other 03-02-2023 Evaluation note* Encounter Date Diagnosis Assessment Notes Treatment Notes Treatment Clinical Notes Dec, Vitamin D insufficiency (ICD-10 - E55.9) Dec, Elevated alkaline phosphatase level (ICD-10 - R74.8) Dec, Other specified hypothyroidism (ICD-10 - E03.8) [facility] Other 02-27-2023 Evaluation note* Encounter Date Diagnosis Assessment Notes Treatment Notes Treatment Clinical Notes Nov, Prediabetes (ICD-10 - R73.03) Routine lab work ordered. Will continue current treatment plan pending lab results. Patient is advised to work on healthy diet choices and appropriate servings, weight control, regular exercise as directed, reduced fat intake, and salt avoidance. Patient voiced understanding of this and agrees to this plan. Nov, Well adult exam (ICD-10 - Z00.00) Routine lab work ordered. Follow routinely with eye doctor, dentist, INSTRUCTIONAL DESIGNER. Patient is advised to work on healthy diet choices and appropriate servings, weight control, regular exercise as directed, reduced fat intake, and salt avoidance. Patient voiced understanding of this and agrees to this plan. Nov, PCOS (polycystic ovarian syndrome) (ICD-10 - E28.2) Routine lab work ordered. She will continue to follow with OB-INSTRUCTIONAL DESIGNER and continue healthy lifestyle changes that she has made. Specialty notes reviewed as received. Patient is advised to work on healthy diet choices and appropriate servings, weight control, regular exercise as directed, reduced fat intake, and salt avoidance. Patient voiced understanding of this and agrees to this plan. Nov, Other specified hypothyroidism (ICD-10 - E03.8) Routine lab work ordered. She is taking Synthroid 50 mcg daily. Will continue current treatment plan pending lab results. Nov, Anxiety (ICD-10 - F41.9) No suicidal or homicidal ideations. Started on Celexa by her INSTRUCTIONAL DESIGNER. Very stable on Celexa 20 mg daily. Our office will take this over. Nov, Severe obesity (BMI >= 40) (ICD-10 - E66.01) Patient is advised to work on healthy diet choices and appropriate servings, weight control, regular exercise as directed, reduced fat intake, and salt avoidance. Patient voiced understanding of this and agrees to this plan. Nov, Other She will uti chelseye Julian OTC for small effusions to her ears bilaterally. She will notify office should pressure in her ears still persist after starting this. [facility] Other 02-24-2022 Evaluation note* Encounter Date Diagnosis Assessment Notes Treatment Notes Treatment Clinical Notes Nov, Prediabetes (ICD-10 - R73.03) She was recently dx with prediabetes and was started on Metformin 500 mg BID 2 weeks ago by her OB-INSTRUCTIONAL DESIGNER. She would like to follow with our office for this. She will complete community lab screenings in 4-6 weeks to make sure tolerating her Metformin well. Follow up in 3 months to recheck hgba1c. Patient is advised to work on healthy diet choices and appropriate servings, weight control, regular exercise as directed, reduced fat intake, and salt avoidance. Patient voiced understanding of this and agrees to this plan. Nov, PCOS (polycystic ovarian syndrome) (ICD-10 - E28.2) She is following with her OB-INSTRUCTIONAL DESIGNER for her PCOS and is currently on Metformin 500 mg BID and is taking medication to help her get . She will continue to follow with OB-INSTRUCTIONAL DESIGNER and continue healthy lifestyle changes that she has made. Specialty notes reviewed as received. Patient is advised to work on healthy diet choices and appropriate servings, weight control, regular exercise as directed, reduced fat intake, and salt avoidance. Patient voiced understanding of this and agrees to this plan. Nov, Other specified hypothyroidism (ICD-10 - E03.8) Recent lab work reviewed. She was recently put on Synthroid 25 mcg daily for high normal TSH level with hypothyroid symptoms of fatigue, difficulty losing weight by her OB-INSTRUCTIONAL DESIGNER. She would like to start following with our office for this. Symptoms are improved since starting medication. Will obtain lab work to recheck her thyroid levels in 4-6 weeks. Nov, Anxiety (ICD-10 - F41.9) She was recently taken off of Prestiq due to feeling so much better anxiety rios due to lifestyle changes of increasing activity and eating healthier. No suicidal or homicidal ideations. Will keep her off of this and monitor her closely over the next few months to see how she is doing. She will follow up in our office in 3 months to see how she is doing, sooner if needed. Nov, BMI 38.0-38.9,adult (ICD-10 - Z68.38) Patient is advised to work on healthy diet choices and appropriate servings, weight control, regular exercise as directed, reduced fat intake, and salt avoidance. Patient voiced understanding of this and agrees to this plan. [facility] Other History general Narrative - Reported* Type Description Date Medical History PCOS Medical History THYROID ISSUES Surgical History THIRD NIPPLE REMOVED Surgical History Colonoscopy-normal 2018 [facility] Other Summary Purpose Family History No Family History Records Found Advance Directives No Advanced Directives Records Found Reason for Referral Reason Refer to Dr. Adi orozco for right ear itching and pain; not relieve with many treatments Diagnosis 1 Right ear pain (H92. 01) Referral Organization [facility] Family Gonzales Hernandez Referring Provider First Name Sandra Referring Provider Last Name Geovanna Referring Provider Specialty Nurse Pract itioner Referred Provider Specialty Ear, Nose an d Throat Referral Priority Routine Additional Source Comments REASON FOR VISIT (unrecogniz ed section and content) EST CARE1 year Follow up, hg [id number] resultspink eyepossible mastitisstrep throatanxietyear gtts6 month Follow uprefill4 month Follow up, hgba1c INFORMATION SOURCE (unrecogn ized section and content) DATE CREATED AUTHOR 02/25/2023 [facility] FOR RECORDS PERTAINING TO PATIENTS WHO ARE OR HAVE BEEN ENROLLED IN A CHEMICAL DEPENDENCY/SUBSTANCEABUSE PROGRAM, SOME INFORMATION MAY BE OMITTED. This clinical summary was aggregated from multiple sources. Caution should be exercised in using it in the provision of clinical care. This summary normalizes information from multiple sources, and as a consequence, information in this document may materially change the coding, format and clinical context of patient data. In addition, data may be omitted in some cases. CLINICAL DECISIONS SHOULD BE BASED ON THE PRIMARY CLINICAL RECORDS. [employer] provides no warranty or guarantee of the accuracy or completeness of information in this document.
[2023-12-19 16:10] LABS: Age Gdln ACOG Testing Note (.); IGP, rfx Aptima HPV ASCU Note (.)
== END 2023-12-16 21:15 | disposition home or self-care (01) ==
LOC: LAB 21:14
PROVIDERS: PCP Nurse Practitioner Family; Visit Provider Obstetrics & Gynecology
DX: Z01.419 Encounter for gynecological examination (general) (routine) without abnormal findings (principal)
CPT/HCPCS: G0145

== ENCOUNTER 2024-02-14 10:00 | Outpatient (OUT) | payer OTHER, SELFPAY ==
--- OUTSIDE RECORDS SUMMARY | 2024-02-14 10:11 | XMS_ITS | CCD ---
Author Organization [facility] Care Team Providers Care Precinct Commanding Officer Name Role Phone [facility], Sandra Unavailable [facility], SANDRA Primary Care Unavailable HANSA ., DR GOLDSMITH Attending Unavailable WEST, DR MANUELITO Foley Consulting Unavailable HANSA ., DR GOLDSMITH Admitting Unavailable HANSA ., DR GOLDSMITH Consulting Unavailable BRIAN, VIRGINIA Admitting Unavailable BRIANVIRGINIA Attending Unavailable KAP, SANDRA Primary Care Unavailable NAHMA, DR MANUELITO Foley Consulting Unavailable HANSA ., DR GOLDSMITH Consulting Unavailable VIRGINIA TORRES Consulting Unavailable HANSA ., DR GOLDSMITH Attending Unavailable KAP, SANDRA Primary Care Unavailable HANSA ., DR GOLDSMITH Admitting Unavailable HANSA ., DR GOLDSMITH Consulting Unavailable KAP, SANDRA Primary Care Unavailable HANSA ., DR GOLDSMITH Consulting Unavailable HANSA ., DR GOLDSMITH Attending Unavailable HANSA ., DR GOLDSMITH Admitting Unavailable HANSA ., DR GOLDSMITH Attending Unavailable KAP, SANDRA Primary Care Unavailable HANSA ., DR GOLDSMITH Admitting Unavailable NAHMA, DR MANUELITO Foley Consulting Unavailable HANSA ., [...] ZIEBER, DR RAGINI Chatterjee Consulting Unavailable KAP, SANDRA Primary Care Unavailable [...] Unavailable HANSA ., DR GOLDSMITH Attending Unavailable NAHMA, DR MANUELITO Foley Consulting Unavailable HANSA ., [...] Unavailable JODIE ., DR HU Admitting Unavailabl bharti FELICIANO ., DR HU Attending Unavailabl e JODIE ., DR HU Consulting [facility], DR MANUELITO Foley Consulting Unavailable HANSA ., DR GOLDSMITH Consulting Unavailable SANDRA AUSTIN Primary Care Unavailable HANSA ., DR GOLDSMITH Attending Unavailable NAHMA, DR MANUELITO Foley Consulting Unavailable HANSA ., DR GOLDSMITH Admitting Unavailable HANSA ., DR GOLDSMITH Consulting Unavailable Ramonita Greenberg Unavailable AGUS SANTO Attending Unavailable Medications Current Medications Medication Drug Class(es) [...] Active cetirizine hydrochloride 10 mg oral tablet (9 sources) Histamine-1 Receptor Antagonist Start: 10-23-2019 take 30 mg by mouth once daily Cetirizine Active 30 MG PO Daily October 23, 2019 1:00am take 1 tablet by mouth once lolis y ZyrTEC Allergy 10 MG 1 tablet Orally Once a day Active cholecalciferol 0.025 mg oral tablet (9 sources) Vitamin D Start: 02-13-2024 take 1 tablet by mouth once daily Cholecalciferol (Vitamin D3) Active 1 TAB PO Daily February 13, 2024 12:00am FreeTextSig: TAKE 1 TABLET BY MOUTH EVERY DAY; Note: Source Status: Taking; Refills: 1; Qty: 90 Tablet; Provider: Geovanna Flores ( ) Start: 02-13-2024 take 1 tablet by tamica th once daily Cholecalciferol (Vitamin D3) Active 5000 UNIT PO Daily February 13, 2024 12:00am FreeTextSig: TAKE 1 TABLET BY MOUTH EVERY DAY FOR 30 DAYS; Note: Source Status: Not-Taking\PRN; Refills: 2; Qty: 90 Tablet; Provider: Geovanna Flores ( ) Start: 02-21-2023 take 1 tablet by tamica th every twenty-four hours Vitamin D3 125 MCG (5000 UT) 1 tablet Orally Once a day for 30 days Jan, Active Start: 12-27-2022 take 1 capsule by mo ut every twenty-four hours Vitamin D3 50 MCG (2000 UT) 1 capsule Orally Once a day for 30 days Dec, Active take 1 tablet by tamica th once daily Vitamin D3 25 MCG (1000 UT) TAKE 1 TABLET BY MOUTH EVERY DAY for 90 Active take 1 capsule by mo ut every twenty-four hours Vitamin D3 25 MCG [...] Active levothyroxine sodium 0.05 mg oral tablet (12 sources) l-Thyroxine Start: take 1 tablet by mouth once daily in the morning Levothyroxine Active 1 TAB PO Daily February 13, 2024 12:00am FreeTextSi tablet in the morning on an empty stomach Orally Once a day; Note: Source Status: Taking; Refills: 4; Qty: 30 Tablet; Provider: Geovanna Hall take 1 tablet by tamica once daily in the morning Levothyroxine Sodium 50 MCG 1 tablet in the morning on an empty stomach Orally Once a day for 30 days Active take 1 tablet by tamica once daily in the morning Levothyroxine Sodium 50 MCG 1 tablet in the morning on an empty stomach Orally Once a day for 30 days Active take 1 tablet by tamica once daily in the morning Levothyroxine Sodium 25 MCG TAKE ONE TAB LET BY MOUTH DAILY ON AN EMPTY STOMACH IN THE MORNING for 30 Active Loratadine (3 sources) Loratadine Activ e metFORMIN hydrochloride 500 mg oral tablet (1 source) Biguanide take 1 tablet by mouth every twelve hours metFORMIN HCl 500 MG 1 tablet with a meal Orally twice a day Active ondansetron 4 mg oral tablet (1 source) Serotonin-3 Receptor Antagonist Start: 02-13-20 take 4 mg by mouth every eight hours Ondansetron Hcl Active 4 MG PO Every 8 hours February 13, 2024 12:00am polymyxin b 24132 unt/ml / trimethoprim 1 mg/ml ophthalmic solution (3 sources) Dihydrofolate Reductase Inhibitor Antibacterial, Polymyxin-class Antibacterial Start: 01-05-20 Polymyxin B-Trimethoprim 27886-4.1 UNIT/ML 1 drop into affected eye Ophthalmic every 3 hours up to six times daily for 7 days Dec, Active (10 sources) Active Probiotic (1 source) Probiotic Active Vitamin D3 125 MCG (5000 UT) (6 sources) Start: 02-22-20 take 1 tablet by mouth once daily [...] acid 7540 MG / polyethylene glycol 3350 59282 MG / potassium chloride 1200 MG / sodium ascorbate 78178 MG / sodium chloride 3200 MG Powder for Oral Solution) / 1 (polyethylene glycol 3350 192637 MG / potassium chloride 1000 MG / sodium chloride 2000 MG / sodium sulfate 9000 MG Powder for Oral Solution) } Pack [Plenvu] (8 sources) Osmotic Laxative, Vitamin C Start: 10-07-2019 Plenvu 140 GM DOSE 1 AT 4:00 PM, DOSE 2 POUCH A &B AT 11:00 PM Orally TWICE A DAY for 1 days PLEASE CHECK ALLERGIES Sep, Not-Taking cefuroxime 500 mg oral tablet (1 source) Cephalosporin Antibacterial Start: 10-23-2019 End: 02-13-2024 take 500 mg by mouth once daily Cefuroxime Axetil Discontinued 500 MG PO Daily October 23, 2019 1:00am February 13, 2024 11:14am 24 hr desvenlafaxine succinate 50 mg extended release oral tablet (1 source) Serotonin and Norepinephrine Reuptake Inhibitor Start: 10-23-2019 End: 02-13-2024 take 50 mg by mouth once daily Desvenlafaxine Succinate Discontinued 50 MG PO Daily October 23, 2019 1:00am February 13, 2024 11:15am fluconazole 150 mg oral tablet (1 source) Azole Antifungal Start: 10-23-2019 End: 02-13-2024 take 150 mg by mouth every week Fluconazole Discontinued 150 MG PO every week October 23, 2019 1:00am February 13, 2024 11:15am Problems Active Problems Problem Classification Problem Date Documented Da te Episodic/Chronic Abdominal pain (2 sources) Left lower quadrant pain; Translations: [Abdominal pain] Onset: 07-23-2022 10-26-2019 Episodic Allergic reactions (5 sources) Atopic dermatitis; Translations: [...] syndrome Onset: 12-21-2021 Resolved: 12-21-2021 Chronic Other gastrointestinal disorders (1 source) Diarrhea; Translations: [Diarrhea, unspecified] 10-26-2019 Episodic Other liver diseases (5 sources) Abnormal levels [...] Acute pharyngitis, unspecified; Translations: [Streptococcal pharyngitis] Episodic Residual codes; unclassified (1 source) Gestation period, 8 weeks; Translations: [8 weeks gestation of ] 02-13-2024 Episodic Residual codes; unclassified (1 source) 8 weeks gestation of ; Translations: [ state, incidental] 02-13-2024 Episodic Spondylosis; intervertebral disc disorders; other back problems (2 sources) Low back pain; Translations: [Low back pain] 02-13-2024 Episodic Thyroid disorders (18 sources) Hypothyroidism; Translations: [Other specified hypothyroidism] Onset: 12-21-2021 Resolved: 12-21-2021 Chronic Unclassified (1 source) CONTACT W/AND (SUSP) EXPOS COVID-19; Translations: [CONTACT W/AND (SUSP) EXPOS COVID-19] Onset: 09-17-2022 Past or Other Problems Problem Classification Problem Date Documented Date Episodic/Chronic Immunizations and screening for infectious disease (4 [...] Test Name Value Interpretation Reference Range Facility Human papilloma virus 16+18+ 31+33+35+39+45+51+52+56+58+59+66+68 DNA [Presence] in Anders 12-16-2023 HPV 16+18+31+33+35+39+45 +51+52+56+58+59+66+6 8 DNA Probe+sig amp Ql (Cvx) Note . [facility] Comment on above: TESTS RESULT FLAG UN ITS REF RANGE LAB DI AGNOSIS: 02 NEGATIVE FOR INTRAEPITHELIAL LESION OR MALIGNANCY.Specimen adequacy: 02 Satisfactory for evaluation. Endocervical and/or squamous metaplastic cells (endocervical component) are present.Performed by: 02 Raeann Duran, Salesforce Administrator ([facility]). 02Note: Note 02 The Pap smear is a screening test designed to aid in the detection of premalignant and malignant conditions of the uterine cervix. It is not a diagnostic procedure and should not be used as the sole means of detecting cervical cancer. Both false-positive and false-negative reports do occur.Test Methodology: Note 02 The [employer]pro[employer](R) [employer]ane Tableman was unable to read this specimen. Therefore a manual review was performed. ----- FLAG LEGEND: L-Low Normal,H-High Normal,LL-Alert Low,HH-Alert High <-Panic Low,>-Panic High,A-Abnormal,AA-Critical Abnormal ---Performed at:[address] [id number] Heavenly Serrano MD, . 02 The HPV DNA reflex criteria were not met with this specimen result therefore, no HPV testing was performed.The HPV DNA reflex criteria were not met with this specimenresult therefore, no HPV testing was performed.Performed at: =G - [facility] [id number] [place], [place] [id number] Director: Heavenly Serrano MD, Phone: [phone] at: WB - [facility] [id number] [facility], [place] [id number] Director: Heavenly Serrano MD, Phone: [phone] No Panel Informationon 12-16 Reference Lab Test Patient Age Note . [facility] Comment on above: TESTS RESULT FLAG UN ITS REF RANGE LAB Clinician Provided Cytology Information Source.............Cervix No. of containers..01 ThinPrep VialAge Niruo AGUSTINAOG Leslye... FLAG LEGEND: L-Low Normal,H-High Normal,LL-Alert Low,HH-Alert High <-Panic Low,>-Panic High,A-Abnormal,AA-Critical Abnormal ---Performed at:01 =G [facility] [place] [address] [place] [address] Heavenly Serrano MD, A1C HEMOGLOBINon 10-31-2023 HbA1c (Bld) [Mass fraction] 5.8 % [facility] [employer] Other HbA1c (Bld) [Mass fraction]o n 10-31-2023 A1C HEMOGLOBIN amSTATZ Other A1C HEMOGLOBINon 06-24-2023 HbA1c (Bld) [Mass fraction] 5.2 % [facility] Other HbA1c (Bld) [Mass fraction]o n 06-24-2023 A1C HEMOGLOBIN Devon [employer] Other Quick Strepon 04-15-2023 S. pyogenes Org specific cx Ql (Throat) Positive [facility] Other Quick Strep [facility] Other FREE T4on 02-21-2023 Free T4 [Mass/Vol] 0.89 ng/dL Normal 0.76-1.46 [facility] Comment on above: Performed By: #### H H #### [facility] [address] [place] [address] Dr. Bella Jerome PROF 14(COMP METB)on 023 Albumin [Mass/Vol] 3.7 g/dL Normal 3.4-5.0 [facility] Comment on above: Performed By: #### H H #### [facility] [address] [place] [address] Dr. Bella Jerome Albumin/Globulin [Mass ratio] 0.9 {ratio} Normal [facility] Comment on above: Performed By: #### H H #### [facility] [address] [place] [address] Dr. Bella Jerome ALP [Catalytic activity/Vol] 132 U/L Critically high 46-116 [facility] Comment on above: Performed By: #### H H #### [facility] [address] [place] [address] Dr. Bella Jerome ALT [Catalytic activity/Vol] 32 U/L Normal 14-59 [facility] Comment on above: Performed By: #### H H #### [facility] [address] [place] [address] Dr. Bella Jerome Anion gap [Moles/Vol] 12.8 mmol/L Normal [facility] Comment on above: Performed By: #### H H #### [facility] [address] [place] [address] Dr. Bella Jerome AST [Catalytic activity/Vol] 23 U/L Normal 15-37 [facility] Comment on above: Performed By: #### H H #### [facility] [address] [place] [address] Dr. Bella Jerome Bilirubin [Mass/Vol] 0.6 mg/dL Normal 0.2-1.0 [facility] Comment on above: Performed By: #### H H #### [facility] [address] [place] [address] Dr. Bella Jerome Calcium [Mass/Vol] 9.0 mg/dL Normal 8.5-10.1 [facility] Comment on above: Performed By: #### H H #### [facility] [address] [place] [address] Dr. Bella Jerome Chloride [Moles/Vol] 102 mmol/L Normal 98-107 [facility] Comment on above: Performed By: #### H H #### [facility] [address] [place] [address] Dr. Bella Jerome CO2 [Moles/Vol] 28.2 mmol/L Normal 21.0-32.0 [facility] Comment on above: Performed By: #### H H #### [facility] [address] [place] [address] Dr. Bella Jerome Creatinine [Mass/Vol] 0.67 mg/dL Normal 0.55-1.02 [facility] Comment on above: Performed By: #### H H #### [facility] [address] [place] [address] Dr. Bella Jerome EGFR-AF SYRIAN >60 Normal >=[address] [facility] Comment on above: Performed By: #### H H #### [facility] [address] [place] [address] Dr. Bella Jerome EGFR-NON AF SYRIAN >60 Normal >=60 [facility] Comment on above: Performed By: #### H H #### [facility] [address] [place] [address] Dr. Bella Jerome Globulin (S) [Mass/Vol] 4.2 g/dL Normal [facility] Comment on above: Performed By: #### H H #### [facility] [address] [address] [address] Bella Jerome Glucose [Mass/Vol] 88 mg/dL Normal 74-106 [facility] Comment on above: Performed By: #### H H #### [facility] [address] [address] [address] Bella Jerome Potassium [Moles/Vol] 4.0 mmol/L Normal 3.5-5.1 [facility] Comment on above: Performed By: #### H H #### [facility] [address] [place] [address] Dr. Bella Jerome Protein [Mass/Vol] 7.9 g/dL Normal 6.4-8.2 [facility] Comment on above: Performed By: #### H H #### [facility] [address] [address] [address] Bella Jerome Sodium [Moles/Vol] 139 mmol/L Normal 136-145 [facility] Comment on above: Performed By: #### H H #### [facility] [address] [place] [address] Dr. Bella Jerome Urea nitrogen [Mass/Vol] 12.0 mg/dL Normal 7.0-18.0 [facility] Comment on above: Performed By: #### H H #### [facility] [address] [address] [address] Bella Jerome Urea nitrogen/Creatinine [Mass ratio] 17.9 mg/mg Normal [facility] Comment on above: Performed By: #### H H #### [facility] [address] [address] [address] Bella Jerome TSHon 02-21-2023 TSH 2.463 uIU/mL Normal 0.358-3.740 [facility] Comment on above: Performed By: #### H H #### [facility] [address] [place] [address] Dr. Bella Jerome VITAMIN D 25 OHon 02-21-2023 VIT D 25-OH 23.1 ng/mL Normal [facility] Comment on above: Performed By: #### H H #### [facility] [address] [place] [address] Dr. Bella Jerome VIT D RANGES SEE BELOW Normal [facility] Comment on above: Result Comment: <20 ng/mL Vit D deficient 20 - <30 ng/mL Vit D insufficient 30 - 100 ng/mL Vit D sufficient >100 ng/mL Potential Toxicity Performed By: #### H H #### [facility] [address] [place] [address] Dr. Bella Jerome CBC AUTO DIFFon 12-26-2022 BASO # 0.0 103/ul Normal 0.0-0.1 [facility] Comment on above: Performed By: #### C BC #### [facility] [address] [place] [address] Dr. Bella Jerome Basophils/100 WBC (Bld) 0.3 % Normal 0.2-2.0 [facility] Comment on above: Performed By: #### C BC #### [facility] [address] [place] [address] Dr. Bella Jerome EO # 0.1 103/ul Normal 0.0-0.7 [facility] Comment on above: Performed By: #### C BC #### [facility] [address] [place] [address] Dr. Bella Jerome Eosinophils/100 WBC (Bld) 1.6 % Normal 0.9-7.0 [facility] Comment on above: Performed By: #### C BC #### [facility] [address] [place] [address] Dr. Bella Jerome Erythrocyte distribution width (RBC) [Ratio] 12.7 % Normal 11.0-15.0 [facility] Comment on above: Performed By: #### C BC #### [facility] [address] [place] [address] Dr. Bella Jerome Hematocrit (Bld) [Volume fraction] 37.2 % Normal 36.0-48.0 [facility] Comment on above: Performed By: #### C BC #### [facility] [address] [place] [address] Dr. Bella Jerome Hemoglobin (Bld) [Mass/Vol] 12.5 g/dL Normal 12.0-16.0 [facility] Comment on above: Performed By: #### C BC #### [facility] [address] [place] [address] Dr. Bella Jerome IG # 0.02 10e3/ul Normal 0.00-0.03 [facility] Comment on above: Performed By: #### C BC #### [facility] [address] [place] [address] Dr. Bella Jerome IG % 0.3 % Normal 0.0-0.5 [facility] Comment on above: Performed By: #### C BC #### [facility] [address] [place] [address] Dr. Bella Jerome LYMPH # 2.3 103/ul Normal 1.2-3.8 [facility] Comment on above: Performed By: #### C BC #### [facility] [address] [place] [address] Dr. Bella Jerome Lymphocytes/100 WBC (Bld) 34.1 % Normal 20.5-60.0 [facility] Comment on above: Performed By: #### C BC #### [facility] [address] [place] [address] Dr. Bella Jerome MANUAL DIFF REQ NO Normal [facility] Comment on above: Performed By: #### C BC #### [facility] [address] [place] [address] Dr. Bella Jerome MCH (RBC) [Entitic mass] 30.9 pg Normal 26.7-34.0 [facility] Comment on above: Performed By: #### C BC #### [facility] [address] [place] [address] Dr. Bella Jerome MCHC (RBC) [Mass/Vol] 33.6 g/dL Normal 29.9-35.2 [facility] Comment on above: Performed By: #### C BC #### [facility] [address] [address] [address] Bella Jerome MCV (RBC) [Entitic vol] 91.9 fL Normal 81.0-99.0 [facility] Comment on above: Performed By: #### C BC #### [facility] [address] [place] [address] Dr. Bella Jerome MONO # 0.4 103/ul Normal 0.3-0.8 [facility] Comment on above: Performed By: #### C BC #### [facility] [address] [place] [address] Dr. Bella Jerome Monocytes/100 WBC (Bld) 5.1 % Normal 1.7-12.0 [facility] Comment on above: Performed By: #### C BC #### [facility] [address] [place] [address] Dr. Bella Jerome NEUT # 4.0 103/ul Normal 1.4-6.5 [facility] Comment on above: Performed By: #### C BC #### [facility] [address] [place] [address] Dr. Bella Jerome Neutrophils/100 WBC (Bld) 58.6 % Normal 43.0-75.0 [facility] Comment on above: Performed By: #### C BC #### [facility] [address] [place] [address] Dr. Bella Jerome Platelet mean volume (Bld) [Entitic vol] 11.5 fL Normal 9.5-13.5 [facility] Comment on above: Performed By: #### C BC #### [facility] [address] [place] [address] Dr. Bella Jerome PLT 243 103/ul Normal 150-450 [facility] Comment on above: Performed By: #### C BC #### [facility] [address] [place], [place] [id number] Dr. Bella Jerome RBC 4.05 106/ul Critically low 4.20-5.40 [facility] Comment on above: Performed By: #### C BC #### [facility] [address] [place] [address] Dr. Bella Jerome WBC 6.8 103/ul Normal 4.0-11.0 [facility] Comment on above: Performed By: #### C BC #### [facility] [address] [address] [address] Bella Jerome FREE T4on 12-26-2022 Free T4 [Mass/Vol] 1.05 ng/dL Normal 0.76-1.46 [facility] Comment on above: Performed By: #### F T4, VITAD, B12FOL, IRON ####[facility] [id number] [address]Dr. Bella Jerome GLYCOHEMOGLOBIN A1Con 2022 ADA RECOMMENDATION SEE BELOW Normal [facility] Comment on above: Result Comment: ADA RECOMMENDED LIMIT 4.0 - 6.0 ADA THERAPEUTIC TARGET < 7.0 ACTION SUGGESTED > 7.0 Performed By: #### A 1C #### [facility] [address] [address] [address] Blela Jerome Glucose [Mass/Vol] 103 mg/dL Normal [facility] Comment on above: Performed By: #### A 1C #### [facility] [address] [address] [address] Bella Jerome HbA1c (Bld) [Mass fraction] 5.2 % Normal 4.5-6.2 [facility] Comment on above: Performed By: #### A 1C #### [facility] [address] [address] [address] Bella Jerome IRONon 12-26-2022 Iron [Mass/Vol] 74.0 ug/dL Normal 50.0-170.0 [facility] Comment on above: Performed By: #### F T4, VITAD, B12FOL, IRON ####[facility] [id number] [address]Dr. Bella Jerome LIPID PROFILEon 12-26-2022 CHOL-HDL RATIO NORM SEE BELOW Normal [facility] Comment on above: Result Comment: 3.3 - 4.4 LOW RISK 4.4 - 7.1 AVERAGE RISK 7.1 - 11.0 MODERATE RISK >11.0 HIGH RISK Performed By: #### C MP, TSH, LIPID #### [facility] [address] [address] [address] Bella Jerome Cholesterol [Mass/Vol] 153 mg/dL Normal <=200 [facility] Comment on above: Performed By: #### C MP, TSH, LIPID #### [facility] [address] [address] [address] Bella Jerome Cholesterol in HDL [Mass/Vol] 67 mg/dL Critically high 40-60 [facility] Comment on above: Performed By: #### C MP, TSH, LIPID #### [facility] [address] [address] [address] Bella Jerome Cholesterol in LDL [Mass/Vol] 77.2 mg/dL Normal [facility] Comment on above: Performed By: #### C MP, TSH, LIPID #### [facility] [address] [address] [address] Bella Jerome Cholesterol.total/Ch olesterol in HDL [Mass ratio] 2.3 {ratio} Normal [facility] Comment on above: Performed By: #### C MP, TSH, LIPID #### [facility] [address] [address] [address] Bella Jerome HDL NORMAL > or = 60 mg/dl - LOW CARDIOVASCULAR RISK <40 mg/dl - HIGH CARDIOVASCULAR RISK Normal [facility] Comment on above: Performed By: #### C MP, TSH, LIPID #### [facility] [address] [address] [address] Bella Jerome LDL CALC NORMAL SEE BELOW Normal [facility] Comment on above: Result Comment: <100 mg/dl OPTIMAL 100 - 129 mg/dl NEAR OR ABOVE OPTIMAL 130 - 159 mg/dl BORDERLINE HIGH 160 - 189 mg/dl HIGH >190 mg/dl VERY HIGH Performed By: #### C MP, TSH, LIPID #### [facility] [address] [address] [address] Blela Jerome Triglyceride [Mass/Vol] 44 mg/dL Normal <=150 [facility] Comment on above: Performed By: #### C MP, TSH, LIPID #### [facility] [address] [address] [address] Bella Jerome VLDL CALC 8.8 mg/dL Normal [facility] Comment on above: Performed By: #### C MP, TSH, LIPID #### [facility] [address] [address] [address] Bella Jerome MICROALB CREAT RATIO RANDOMo n 12-26-2022 mALB 2.3 mg/L Normal <=30.0 [facility] Comment on above: Performed By: #### H H #### [facility] [address] [address] [address] Bella Jerome MALB CR RATIO 17.4 mg/g Normal 0.0-29.9 [facility] Comment on above: Performed By: #### H H #### [facility] [address] [address] [address] Bella Jerome MALB CR RATIO RANGE SEE BELOW Normal [facility] Comment on above: Result Comment: NO M ICROALBUMINURIA 0-29 MG/G CLINICAL MICROALBUMINURIA 30-300 MG/G MACROALBUMINURIA >300 MG/G Performed By: #### H H #### [facility] [address] [address] [address] Bella Jerome URINE CREAT 131.90 mg/dL Normal 20.00-300.00 [facility] Comment on above: Performed By: #### H H #### [facility] [address] [address] [address] Bella Jerome PROF 14(COMP METB)on 023 Albumin [Mass/Vol] 4.1 g/dL Normal 3.4-5.0 [facility] Comment on above: Performed By: #### C MP, TSH, LIPID #### [facility] [address] [address] [address] Bella Jerome Albumin/Globulin [Mass ratio] 1.3 {ratio} Normal [facility] Comment on above: Performed By: #### C MP, TSH, LIPID #### [facility] [address] [address] [address] Bella Jerome ALP [Catalytic activity/Vol] 124 U/L Critically high 46-116 [facility] Comment on above: Performed By: #### C MP, TSH, LIPID #### [facility] [address] [address] [address] Bella Jerome ALT [Catalytic activity/Vol] 16 U/L Normal 14-59 [facility] Comment on above: Performed By: #### C MP, TSH, LIPID #### [facility] [address] [address] [address] Bella Jerome Anion gap [Moles/Vol] 13.4 mmol/L Normal [facility] Comment on above: Performed By: #### C MP, TSH, LIPID #### [facility] [address] [place] [address] Dr. Bella Jerome AST [Catalytic activity/Vol] 17 U/L Normal 15-37 [facility] Comment on above: Performed By: #### C MP, TSH, LIPID #### [facility] [address] [place] [address] Dr. Bella Jerome Bilirubin [Mass/Vol] 0.8 mg/dL Normal 0.2-1.0 [facility] Comment on above: Performed By: #### C MP, TSH, LIPID #### [facility] [address] [place] [address] Dr. Bella Jerome Calcium [Mass/Vol] 8.9 mg/dL Normal 8.5-10.1 [facility] Comment on above: Performed By: #### C MP, TSH, LIPID #### [facility] [address] [place] [address] Dr. Bella Jerome Chloride [Moles/Vol] 103 mmol/L Normal 98-107 [facility] Comment on above: Performed By: #### C MP, TSH, LIPID #### [facility] [address] [place] [address] Dr. Bella Jerome CO2 [Moles/Vol] 25.6 mmol/L Normal 21.0-32.0 [facility] Comment on above: Performed By: #### C MP, TSH, LIPID #### [facility] [address] [place] [address] Dr. Bella Jerome Creatinine [Mass/Vol] 0.55 mg/dL Normal 0.55-1.02 [facility] Comment on above: Performed By: #### C MP, TSH, LIPID #### [facility] [address] [address] [address] Bella Jerome EGFR-AF SYRIAN >60 Normal >=60 [facility] Comment on above: Performed By: #### C MP, TSH, LIPID #### [facility] [address] [address] [address] Bella Jerome EGFR-NON AF SYRIAN >60 Normal >=60 [facility] Comment on above: Performed By: #### C MP, TSH, LIPID #### [facility] [address] [place] [address] Dr. Bella Jerome Globulin (S) [Mass/Vol] 3.1 g/dL Normal [facility] Comment on above: Performed By: #### C MP, TSH, LIPID #### [facility] [address] [address] [address] Bella Jerome Glucose [Mass/Vol] 82 mg/dL Normal 74-106 [facility] Comment on above: Performed By: #### C MP, TSH, LIPID #### [facility] [address] [place] [address] Dr. Bella Jerome Potassium [Moles/Vol] 4.0 mmol/L Normal 3.5-5.1 [facility] Comment on above: Performed By: #### C MP, TSH, LIPID #### [facility] [address] [place] [address] Dr. Bella Jerome Protein [Mass/Vol] 7.2 g/dL Normal 6.4-8.2 [facility] Comment on above: Performed By: #### C MP, TSH, LIPID #### [facility] [address] [place] [address] Dr. Bella Jerome Sodium [Moles/Vol] 138 mmol/L Normal 136-145 [facility] Comment on above: Performed By: #### C MP, TSH, LIPID #### [facility] [address] [address] [address] Bella Jerome Urea nitrogen [Mass/Vol] 14.0 mg/dL Normal 7.0-18.0 [facility] Comment on above: Performed By: #### C MP, TSH, LIPID #### [facility] [address] [address] [address] Bella Jerome Urea nitrogen/Creatinine [Mass ratio] 25.5 mg/mg Normal [facility] Comment on above: Performed By: #### C MP, TSH, LIPID #### [facility] [address] [address] [address] Bella Jerome TSHon 12-26-2022 TSH 0.224 uIU/mL Critically low 0.358-3.740 [facility] Comment on above: Performed By: #### C MP, TSH, LIPID #### [facility] [address] [place] [address] Dr. Bella Jerome VIT B12 AND FOLATEon 023 Cobalamin (Vitamin B12) [Mass/Vol] 702.0 pg/mL Normal 193.0-986.0 [facility] Comment on above: Performed By: #### F T4, VITAD, B12FOL, IRON ####[facility] [address] [address]. Bella Jerome FOLATE 25.10 ng/mL Normal 8.60-58.90 [facility] Comment on above: Performed By: #### F T4, VITAD, B12FOL, IRON ####[facility] [address] [address]. Bella Jerome VITAMIN D 25 OHon 12-26-2022 VIT D 25-OH 25.4 ng/mL Normal [facility] Comment on above: Performed By: #### F T4, VITAD, B12FOL, IRON ####[facility] [address] [address]Dr. Bella Jerome VIT D RANGES SEE BELOW Normal [facility] Comment on above: Result Comment: <20 ng/mL Vit D deficient 20 - <30 ng/mL Vit D insufficient 30 - 100 ng/mL Vit D sufficient >100 ng/mL Potential Toxicity Performed By: #### F T4, VITAD, B12FOL, IRON ####[facility] [address] [address]. Bella Jerome PAP ACOG PANEL 2: 21 to 29on 12-18-2022 . . Normal [facility] Comment on above: Performed By: #### C BC #### [facility] [address] [address] [address] Bella Jerome Age Gdln ACOG Testing - [facility] Comment on above: Performed By: #### C BC #### [facility] [address] [address] [address] Bella Jerome DIAGNOSIS: Comment [facility] Comment on above: Result Comment: NEGA TIVE FOR INTRAEPITHELIAL LESION OR MALIGNANCY. Performed By: #### C BC #### [facility] [address] [address] [address] Bella Jerome Methodology: Comment [facility] Comment on above: Result Comment: This liquid based ThinPrep(R) pap test was screened with the use of an image guided system. Performed By: #### C BC #### [facility] [address] [address] [address] Bella Jerome Note: Comment [facility] Comment on above: Result Comment: The Pap smear is a screening test designed to aid in the detection of premalignant and malignant conditions of the uterine cervix. It is not a diagnostic procedure and should not be used as the sole means of detecting cervical cancer. Both false-positive and false-negative reports do occur. . Performed By: #### C BC #### [facility] [address] [address] [address] Bella Jerome Performed by: Comment Normal [facility] Comment on above: Result Comment: Byron Irby, Salesforce Administrator (ASCP) Performed By: #### C BC #### [facility] [address] [address] [address] Bella Jerome Reflex Criteria: Comment [facility] Comment on above: Result Comment: The HPV DNA reflex criteria were not met with this specimen result therefore, no HPV testing was performed. . Performed By: #### C BC #### [facility] [address] [address] [address] Bella Jerome Specimen adequacy: Comment Normal [facility] Comment on above: Result Comment: Sati sfactory for evaluation. Endocervical and/or squamous metaplastic cells (endocervical component) are present. Performed By: #### C BC #### [facility] [address] [address] [address] Bella Jerome CBC W MANUAL DIFFon 09-07-20 22 ATYPICAL LYMPH # Normal [facility] Comment on above: Performed By: #### C BCMAN ####[facility] [address] [address]. Bella Jerome ATYPICAL LYMPH % Normal [facility] Comment on above: Performed By: #### C BCMAN ####[facility] [address] [address]. Bella Jerome BAND # 0.2 103/ul Normal 0.0-0.3 [facility] Comment on above: Performed By: #### C BCMAN ####[facility] [address] [address]. Bella Jerome BAND % 1 % Normal 0-5 [facility] Comment on above: Performed By: #### C BCMAN ####[facility] [address] [address]Dr. Bella Jerome BASOM # 0.00 103/ul Normal 0.00-0.10 [facility] Comment on above: Performed By: #### C BCMAN ####[facility] [address] [address]Dr. Bella Jerome BASOM % 0.0 % Critically low 0.2-2.0 [facility] Comment on above: Performed By: #### C BCMAN ####[facility] [address] [address]. Bella Jerome BLAST # Normal [facility] Comment on above: Performed By: #### C BCMAN ####[facility] [address] [id number]. Bella Jerome BLAST % Normal [facility] Comment on above: Performed By: #### C BCRELL ####[facility] [address] [id number]. Bella Jerome CORRECTED WBC Normal 4.0-11.0 [facility] Comment on above: Performed By: #### C BCRELL ####[facility] [address] [id number] Bella Jerome EOS # 0.00 103/ul Normal 0.00-0.70 [facility] Comment on above: Performed By: #### C BCRELL ####[facility] [address] [place], [place] [address]Dr. Bella Jerome EOS% 0.0 % Critically low 0.9-7.0 [facility] Comment on above: Performed By: #### C PEDRO ####[facility] [address] [address]. Bella Jerome HCT 30.5 % Critically low 36.0-48.0 [facility] Comment on above: Performed By: #### C PEDRO ####[facility] [address] [place], [place] [address]Dr. Bella Jerome HGB 10.5 g/dl Critically low 12.0-16.0 [facility] Comment on above: Performed By: #### C BCRELL ####[facility] [address] [id number]. Bella Jerome LYMPHM # 2.78 103/ul Normal 1.20-3.80 [facility] Comment on above: Performed By: #### C BCRELL ####[facility] [address] [place], [place] [address]Dr. Bella Jerome LYMPHM% 13.0 % Critically low 20.5-60.0 [facility] Comment on above: Performed By: #### C BCRELL ####[facility] [address] [id number]. Bella Jerome MCH 32.8 pg Normal 26.7-34.0 [facility] Comment on above: Performed By: #### C PEDRO ####[facility] [address] [phone]. Bella Jerome MCHC 34.4 g/dl Normal 29.9-35.2 [facility] Comment on above: Performed By: #### C PEDRO ####[facility] [address] [phone]. Bella Jerome MCV 95.3 fL Normal 81.0-99.0 [facility] Comment on above: Performed By: #### C PEDRO ####[facility] [address] [phone]. Bella Jerome METAMYELOCYTE # Normal [facility] Comment on above: Performed By: #### C PEDRO ####[facility] [address] [address]Dr. Bella Jerome METAMYELOCYTE % Normal [facility] Comment on above: Performed By: #### Jennifer VASQUEZ ####[facility] [address] [place], [place] [address]Dr. Bella Jerome MONOM# 2.35 103/ul Critically high 0.30-0.[address] [facility] Comment on above: Performed By: #### C PEDRO ####[facility] [address] [id number]. Bella Jerome MONOM% 11.0 % Normal 1.7-12.0 [facility] Comment on above: Performed By: #### Jennifer VASQUEZ ####[facility] [address] [address]Dr. Bella Jerome MPV 11.1 fL Normal 9.5-13.5 [facility] Comment on above: Performed By: #### C PEDRO ####[facility] [address] [place], [place] [address]Dr. Bella Jerome MYELOCYTE # Normal [facility] Comment on above: Performed By: #### Jennifer VASQUEZ ####[facility] [address] [place], [place] [address]Dr. Yilan Jerome MYELOCYTE % Normal [facility] Comment on above: Performed By: #### C PEDRO ####[facility] [address] [place], [place] [address]Tj. Bella Jerome NRBC Normal [facility] Comment on above: Performed By: #### C PEDRO ####[facility] [address] [place], [place] [address]Pb. Bella Jerome PLT 227 103/ul Normal 150-450 [facility] Comment on above: Performed By: #### C PEDRO ####[facility] [address] [place], [place] [address]Yu. Bella Jermoe RBC 3.20 106/ul Critically low 4.20-5.40 [facility] Comment on above: Performed By: #### C PEDRO ####[facility] [address] [place], [place] [address]Sd. Bella Jerome RDW 12.8 % Normal 11.0-15.0 [facility] Comment on above: Performed By: #### C PEDRO ####[facility] [address] [place], [place] [address]Gq. Bella Jerome SEG # 16.05 103/ul Critically high 1.40-6.50 [facility] Comment on above: Performed By: #### C PEDRO ####[facility] [address] [place], [place] [address]Aj. Bella Jerome SEG % 75.0 % Normal 43.0-75.0 [facility] Comment on above: Performed By: #### C PEDRO ####[facility] [address] [place], [place] [address]Su. Bella Jerome WBC 21.4 103/ul Critically high 4.0-11.[address] [facility] Comment on above: Performed By: #### C PEDRO ####[facility] [address] [phone]. Bella Jerome CBC AUTO DIFFon 09-05-2022 BASO # 0.0 103/ul Normal 0.0-0.1 [facility] Comment on above: Performed By: #### C BC #### [facility] [address] [address] [address] Bella Jerome Basophils/100 WBC (Bld) 0.2 % Normal 0.2-2.0 [facility] Comment on above: Performed By: #### C BC #### [facility] [address] [address] [address] Bella Jerome EO # 0.1 103/ul Normal 0.0-0.7 [facility] Comment on above: Performed By: #### C BC #### [facility] [address] [address] [address] Bella Jerome Eosinophils/100 WBC (Bld) 0.6 % Critically low 0.9-7.0 [facility] Comment on above: Performed By: #### C BC #### [facility] [address] [place] [address] Dr. Bella Jerome Erythrocyte distribution width (RBC) [Ratio] 12.6 % Normal 11.0-15.0 [facility] Comment on above: Performed By: #### C BC #### [facility] [address] [place] [address] Dr. Bella Jerome Hematocrit (Bld) [Volume fraction] 32.5 % Critically low 36.0-48.0 [facility] Comment on above: Performed By: #### C BC #### [facility] [address] [place] [address] Dr. Bella Jerome Hemoglobin (Bld) [Mass/Vol] 11.1 g/dL Critically low 12.0-16.0 [facility] Comment on above: Performed By: #### C BC #### [facility] [address] [address] [address] Bella Jerome IG # 0.14 10e3/ul Critically high 0.00-0.03 [facility] Comment on above: Performed By: #### C BC #### [facility] [address] [address] [address] Bella Jerome IG % 1.1 % Critically high 0.0-0.5 [facility] Comment on above: Performed By: #### C BC #### [facility] [address] [address] [address] Bella Jerome LYMPH # 2.6 103/ul Normal 1.2-3.8 [facility] Comment on above: Performed By: #### C BC #### [facility] [address] [place] [address] Dr. Bella Jerome Lymphocytes/100 WBC (Bld) 20.2 % Critically low 20.5-60.0 [facility] Comment on above: Performed By: #### C BC #### [facility] [address] [place] [address] Dr. Bella Jerome MANUAL DIFF REQ NO Normal [facility] Comment on above: Performed By: #### C BC #### [facility] [address] [place] [address] Dr. Bella Jerome MCH (RBC) [Entitic mass] 32.2 pg Normal 26.7-34.0 [facility] Comment on above: Performed By: #### C BC #### [facility] [address] [place] [address] Dr. Bella Jerome MCHC (RBC) [Mass/Vol] 34.2 g/dL Normal 29.9-35.2 [facility] Comment on above: Performed By: #### C BC #### [facility] [address] [place] [address] Dr. Bella Jerome MCV (RBC) [Entitic vol] 94.2 fL Normal 81.0-99.0 [facility] Comment on above: Performed By: #### C BC #### [facility] [address] [place] [address] Dr. Bella Jerome MONO # 0.9 103/ul Critically high 0.3-0.8 [facility] Comment on above: Performed By: #### C BC #### [facility] [address] [place] [address] Dr. Bella Jerome Monocytes/100 WBC (Bld) 7.1 % Normal 1.7-12.0 [facility] Comment on above: Performed By: #### C BC #### [facility] [address] [address] [address] Bella Jerome NEUT # 8.9 103/ul Critically high 1.4-6.5 [facility] Comment on above: Performed By: #### C BC #### [facility] [address] [place] [address] Dr. Bella Jerome Neutrophils/100 WBC (Bld) 70.8 % Normal 43.0-75.0 [facility] Comment on above: Performed By: #### C BC #### [facility] [address] [place] [address] Dr. Bella Jerome Platelet mean volume (Bld) [Entitic vol] 11.0 fL Normal 9.5-13.5 [facility] Comment on above: Performed By: #### C BC #### [facility] [address] [place] [address] Dr. Bella Jerome PLT 234 103/ul Normal 150-450 [facility] Comment on above: Performed By: #### C BC #### [facility] [address] [place] [address] Dr. Bella Jerome RBC 3.45 106/ul Critically low 4.20-5.40 [facility] Comment on above: Performed By: #### C BC #### [facility] [address] [place] [address] Dr. Bella Jerome WBC 12.6 103/ul Critically high 4.0-11.[address] [facility] Comment on above: Performed By: #### C BC #### [facility] [address] [place] [address] Dr. Bella Jerome Covid-19 PCR ([facility])on SARS-CoV-2 (COVID-19) RNA FAVIAN+probe Ql (Unsp spec) Not detected Normal NOT DETECTED [facility] Comment on above: Result Comment: When [...] for this test is supported by the [employer] of Health and Human Service's declaration that [...] be used). Performed By: #### C VDTBH ####[facility] [address] [place], [place] [address]Dr. Bella Jerome DRUG SCREEN RAPID (URINE)on 09-05-2022 AMP Negative Normal NEGATIVE [facility] Comment on above: Performed By: #### D RUGRPD ####[facility] [address] [place], [place] [address]Dr. Bella Jerome BAR Negative Normal NEGATIVE [facility] Comment on above: Performed By: #### D RUGRPD ####[facility] [address] [place], [place] [address]Dr. Bella Jerome BUP Negative Normal NEGATIVE [facility] Comment on above: Performed By: #### D RUGRPD ####[facility] [address] [place], [place] [address]Dr. Bella Jerome BZO Negative Normal NEGATIVE [facility] Comment on above: Performed By: #### D RUGRPD ####[facility] [address] [place], [place] [address]Dr. Bella Jerome NGA Negative Normal NEGATIVE [facility] Comment on above: Performed By: #### D RUGRPD ####[facility] [address] [place], [place] [address]Dr. Bella Jerome CUT-OFFS SEE BELOW Normal [facility] Comment on above: Result Comment: AMP (Amphetamine): 500ng/mL, BAR (Barbituates): 200 ng/mL, BZO (Benzodiazepines): 150 ng/mL, BUP (Buprenorphine): 10 ng/mL, NGA (Cocaine): 150 ng/mL, mAMP (Methamphetamine): 500 ng/mL, MTD (Methadone): 200 ng/mL, OPI (Opiates): 100 ng/mL, OXY (Oxycodone): 100 ng/mL, PCP (Phencyclidine): 25 ng/mL, PPX (Propoxyphene): 300 ng/mL, THC (Cannabinoids): 50 ng/mL, TCA (Trycyclic Antidepressants): 300 ng/mL Performed By: #### D RUGRPD ####[facility] [address] [place], [place] [address]Dr. Bella [facility] DRUG CUT HEADER DRUG CLASS TEST SYSTEM CUT-OFF CONCENTRATIONS ARE FOLLOWS: Normal [facility] Comment on above: Performed By: #### D RUGRPD ####[facility] [address] [place], [place] [address]Dr. Bella Jerome mAMP Negative Normal NEGATIVE [facility] Comment on above: Performed By: #### D RUGRPD ####[facility] [id number] [place], [place] [address]Dr. Liwally Jerome MTD Negative Normal NEGATIVE [facility] Comment on above: Performed By: #### D RUGRPD ####[facility] [address] [place], [place] [address]Dr. Bella Jerome OPI Negative Normal NEGATIVE [facility] Comment on above: Performed By: #### D RUGRPD ####[facility] [address] [place], [place] [address]Dr. Liwally Jerome OXY Negative Normal NEGATIVE [facility] Comment on above: Performed By: #### D RUGRPD ####[facility] [address] [place], [place] [address]Dr. Bella Jerome PCP Negative Normal NEGATIVE [facility] Comment on above: Performed By: #### D RUGRPD ####[facility] [address] [place], [place] [address]Dr. Bella Jerome PPX Negative Normal NEGATIVE [facility] Comment on above: Performed By: #### D RUGRPD ####[facility] [address] [place], [place] [address]Dr. Liwally Jerome TCA Negative Normal NEGATIVE [facility] Comment on above: Performed By: #### D RUGRPD ####[facility] [address] [place], [place] [address]Hn. Bella Jerome THC Negative Normal NEGATIVE [facility] Comment on above: Performed By: #### D RUGRPD ####[facility] [address] [place], [place] [address]Qr. Bella Jerome TYPE AND SCREENon 09-05-2022 TYPE AND SCREEN Negative Normal [facility] Comment on above: Performed By: #### T NS ####[facility] [address] [place], [place] [address]Mo. Bella Jerome US PREG BIOPHY W NON [...] by: MANUELITO GREGG Date: 2022-08-31 17:06 Normal [facility] US PREG GROWTHon 08-30-2022 US PREG [...] MANUELITO GREGG Date: 2022-08-30 17:59 Normal [facility] US PREG BIOPHY W NON STRESSo n [...] MANUELITO GREGG Date: 2022-08-24 17:10 Normal [facility] FREE T4on 08-21-2022 Free T4 [Mass/Vol] 0.90 ng/dL Normal 0.76-1.46 [facility] Comment on above: Performed By: #### C BC #### [facility] [address] [place] [address] Dr. Bella Jerome TSHon 08-21-2022 TSH 1.033 uIU/mL Normal 0.358-3.740 [facility] Comment on above: Performed By: #### H H #### [facility] [address] [place] [address] Dr. Bella Jerome US PREG BIOPHY W [...] MANUELITO GREGG Date: 2022-08-17 18:33 Normal [facility] GROUP B STREP CULTUREon 07-28 S. agalactiae Ag Ql (Unsp spec) Culture Observations: NEGATIVE FOR GROUP B STREPTOCOCCUS. Normal [facility] Comment on above: Performed By: #### G BSCX ####[facility] [address] [place], [place] [address]Ef. Bella Jerome US PREG BIOPHY W NON [...] by: MANUELITO GREGG Date: 2022-08-10 16:36 Normal [facility] US PREG GROWTHon 08-10-2022 US PREG [...] by: MANUELITO GREGG Date: 2022-08-10 16:37 Normal [facility] US PREG GROWTHon 07-25-2022 US PREG [...] by: MANUELITO GREGG Date: 2022-07-25 18:18 Normal [facility] FREE T4on 07-24-2022 Free T4 [Mass/Vol] 0.98 ng/dL Normal 0.76-1.46 [facility] Comment on above: Performed By: #### F T4 #### [facility] [address] [place], [place] [address] Dr. Bella Jerome TSHon 07-24-2022 TSH 1.196 uIU/mL Normal 0.358-3.740 [facility] Comment on above: Performed By: #### T SH ####[facility] [address] [place], [place] [address]XzDr. Bella Jerome UA (CLEAN/CATCH) CONTROL AREA OPERATOR/MICRO I F IND.on 07-20-2022 Bilirubin Ql (U) Negative Normal NEGATIVE [facility] Comment on above: Performed By: #### H H #### [facility] [address] [place] [address] Dr. Bella Jerome Clarity (U) CLEAR Normal CLEAR [facility] Comment on above: Performed By: #### H H #### [facility] [address] [place] [address] Dr. Bella Jerome Color (U) LT. YELLOW Normal YELLOW [facility] Comment on above: Performed By: #### H H #### [facility] [address] [place] [address] Dr. Bella Jerome Glucose Ql (U) Negative Normal NEGATIVE [facility] Comment on above: Performed By: #### H H #### [facility] [address] [place] [address] Dr. Bella Jerome Hemoglobin Ql (U) Negative Normal NEGATIVE [facility] Comment on above: Performed By: #### H H #### [facility] [address] [place] [address] Dr. Bella Jerome Ketones Ql (U) Negative Normal NEGATIVE [facility] Comment on above: Performed By: #### H H #### [facility] [address] [place] [address] Dr. Bella Jerome LEUKOCYTES Negative Normal NEGATIVE [facility] Comment on above: Performed By: #### H H #### [facility] [address] [place] [address] Dr. Bella Jerome Nitrite Ql (U) Negative Normal NEGATIVE [facility] Comment on above: Performed By: #### H H #### [facility] [address] [place] [address] Dr. Bella Jerome pH (U) 7.0 [pH] Normal 5-9 [facility] Comment on above: Performed By: #### H H #### [facility] [address] [place] [address] Dr. Bella Jerome SPEC GRAVITY <=1.005 Abnormal 1.005-<=1.025 [facility] Comment on above: Performed By: #### H H #### [facility] [address] [place] [address] Dr. Bella Jerome UA PROTEIN Negative Normal NEGATIVE/ TRACE [facility] Comment on above: Performed By: #### H H #### [facility] [address] [place] [address] [address] Bella Jerome UR MICRO IND NOT INDICATED Normal [facility] Comment on above: Performed By: #### H H #### [facility] [address] [place] [address] [address] Bella Jerome Urobilinogen Qn (U) 0.2 {Kimberlee'U}/dL Normal 0.2 - 1. 0 [facility] Comment on above: Performed By: #### H H #### [facility] [address] [address] [address] Bella Jerome US PREG GROWTHon 06-27-2022 US PREG GROWTH EXAMINATION: [...] by: RAGINI SANTOS Date: 2022-06-27 16:23 Normal [facility] FREE T4on 06-20-2022 Free T4 [Mass/Vol] 0.82 ng/dL Normal 0.76-1.46 [facility] Comment on above: Performed By: #### H H #### [facility] [address] [place] [address] Dr. Bella Jerome GLUCOSE - 1HRon 06-20-2022 Glucose [Mass/Vol] 127 mg/dL Critically high 74-106 T [facility] Comment on above: Performed By: #### H H #### [facility] [address] [place] [address] Dr. Bella Jerome HEMOGRAM AND PLATELon 2021 Hematocrit (Bld) [Volume fraction] 32.4 % Critically low 36.0-48.0 [facility] Comment on above: Performed By: #### H H #### [facility] [address] [place] [address] Dr. Bella Jerome Hemoglobin (Bld) [Mass/Vol] 10.9 g/dL Critically low 12.0-16.0 [facility] Comment on above: Performed By: #### H H #### [facility] [address] [place] [address] Dr. Bella Jerome MCH (RBC) [Entitic mass] 32.9 pg Normal 26.7-34.0 [facility] Comment on above: Performed By: #### H H #### [facility] [address] [place] [address] Dr. Bella Jerome MCHC (RBC) [Mass/Vol] 33.6 g/dL Normal 29.9-35.2 [facility] Comment on above: Performed By: #### H H #### [facility] [address] [place] [address] Dr. Bella Jerome MCV (RBC) [Entitic vol] 97.9 fL Normal 81.0-99.0 [facility] Comment on above: Performed By: #### H H #### [facility] [address] [place] [address] Dr. Bella Jerome PLT 241 103/ul Normal 150-450 [facility] Comment on above: Performed By: #### H H #### [facility] [address] [place] [address] Dr. Bella Jerome RBC 3.31 106/ul Critically low 4.20-5.40 [facility] Comment on above: Performed By: #### H H #### [facility] [address] [place] [address] Dr. Bella Jerome WBC 11.3 103/ul Critically high 4.0-11.0 [facility] Comment on above: Performed By: #### H H #### [facility] [address] [place] [address] [address] [address] Bella Jerome TSHon 06-20-2022 TSH 3.044 uIU/mL Normal 0.358-3.740 [facility] Comment on above: Performed By: #### C BC #### [facility] [id number] Bella Jerome US PREG INCOMPLETE ANATOMYon 05-24-2022 US PREG INCOMPLETE ANATOMY EXAMINATION: US PREG INCOMPLETE ANATOMY HISTORY: screening COMPARISON: Ultrasound anatomy 04/26/2022 FINDINGS: Presentation: Cephalic Heart rate: 154 bpm Anatomy: Cervical, thoracic, and lumbar spine HERNANDO: 09/13/2022 IMPRESSION: 1. Adequate visualization of the cervical, thoracic, and lumbar spine; no appreciable abnormality. Electronically authenticated by: RAGINI SANTOS Date: 2022-05-24 17:33 Normal [facility] US PREG ANATOMY SINGLEon US PREG ANATOMY [...] Age by EDC: 20 weeks 0 days HERNANDO by EDC: 09/13/2022 Age by current US: 20 weeks 0 days HERNANDO by current US: 09/13/2022 IMPRESSION: Suboptimal visualization of the spine, otherwise normal anatomy scan *Reference: [employer] Practice Guideline for the performance of Obstetric Ultrasound Examinations, July 28, 2007. Electronically authenticated by: MANUELITO GREGG Date: 2022-04-26 16:54 Normal [facility] CHLAMYDIA/GONOCOCCUS FAVIAN ( AB/URINE/PAPon 04-19-2022 Chlamydia trachomatis, FAVIAN Negative Normal Negative [facility] Comment on above: Performed By: #### C T/NGNA ####[facility] [address] [place] [address]Dr. Bella Jerome Neisseria gonorrhoeae, FAVIAN Negative Normal Negative [facility] Comment on above: Performed By: #### C T/NGNA ####[facility] [address] [place] [address]Dr. Bella Jerome VAGINITIS/VAGINOSIS DNA PROB Leonid 04-18-2022 Jessica species Negative Normal Negative [facility] Comment on above: Performed By: #### H H #### [facility] [address] [place] [address] [address] Bella Jerome Gardnerella vaginalis Negative Normal Negative [facility] Comment on above: Performed By: #### H H #### [facility] [address] [place] [address] [address] Bella Jerome Trichomonas vaginalis Negative Normal Negative [facility] Comment on above: Performed By: #### H H #### [facility] [address] [place] [address] [address] Bella Jerome FREE T4on 04-05-2022 Free T4 [Mass/Vol] 0.88 ng/dL Normal 0.76-1.46 [facility] Comment on above: Performed By: #### F T4 #### [facility] [address] [place] [address] [address] Bella Jerome TSHon 04-05-2022 TSH 1.786 uIU/mL Normal 0.358-3.740 [facility] Comment on above: Performed By: #### T SH ####[facility] [address] [place] [address]Dr. Bella Jerome TSH RANGE SEE BELOW Normal [facility] Comment on above: Result Comment: <0.3 4 UIU/ml HYPERTHYROID 0.34-5.60 UIU/ml EUTHYROID >5.60 UIU/ml HYPOTHYROID Performed By: #### T SH ####[facility] [address] [place] [address]Dr. Bella Jerome FREE T4on 02-26-2022 Free T4 [Mass/Vol] 1.06 ng/dL Normal 0.76-1.46 [facility] Comment on above: Performed By: #### C BC #### [facility] [address] [place] [address] [address] Bella Jerome TSHon 02-26-2022 TSH 2.024 uIU/mL Normal 0.470-4.680 [facility] Comment on above: Performed By: #### C BC #### [facility] [address] [place] [address] Dr. Bella Jerome TSH RANGE SEE BELOW Normal [facility] Comment on above: Result Comment: <0.3 4 UIU/ml HYPERTHYROID 0.34-5.60 UIU/ml EUTHYROID >5.60 UIU/ml HYPOTHYROID Performed By: #### C BC #### [facility] [address] [place] [address] Dr. Bella Jerome Vital Signs Date Time Vital Sign Value Performing Clinician Facility 02-13-2024 11: Body height 160.02 cm [facility] 02-13-2024 11:24 Body mass index (BMI) [Ratio] 42.3 kg/m2 [facility] 02-13-2024 11:24 Body weight 108.49 kg [facility] 02-13-2024 11:24040 Diastolic blood pressure 70 mm[Hg] [facility] 02-13-2024 11:24-0400 Heart rate 69 /min [facility] 02-13-2024 11:24-0400 Respiratory rate 18 /min [facility] 02-13-2024 11:24-0400 SaO2% (BldA) [Mass fraction] 98 % [facility] 02-13-2024 11:24-0400 Systolic blood pressure 118 mm[Hg] [facility] 10-31-2023 15:00-0500 Body height 160.02 cm Sandra Austin Other [facility] Other 10-31-2023 15:00-0500 Body mass index (BMI) [Ratio] 45.41 kg/m2 Sandra Austin Other [facility] Other 10-31-2023 15:00-0500 Body temperature 98.5 [degF] Sandra Austin Other [facility] Other 10-31-2023 15:00-0500 Body weight 116.3 kg Sandra Austin Other [facility] Other 10-31-2023 15:00-0500 Diastolic blood pressure 80 mm[Hg] Sandra Austin Other [facility] Other 10-31-2023 15:00-0500 Respiratory rate 18 /min Sandra Austin Other [facility] Other 10-31-2023 15:00-0500 SaO2% (BldA) [Mass fraction] 98 % Sandra Austin Other [facility] Other 10-31-2023 15:00-0500 Systolic blood pressure 128 mm[Hg] Sandra Austin Other [facility] Other 06-24-2023 14:30-0400 Body height 160.02 cm Sandra Geovanna Other [facility] Other 06-24-2023 14:30-0400 Body mass index (BMI) [Ratio] 44.87 kg/m2 Sandra Geovanna Other [facility] Other 06-24-2023 14:30-0400 Body weight 114.9 kg Sandra Geovanna Other [facility] Other 06-24-2023 14:30-0400 Diastolic blood pressure 60 mm[Hg] Sandra Geovanna Other [facility] Other 06-24-2023 14:30-0400 Respiratory rate 18 /min Sandra Geovanna Other [facility] Other 06-24-2023 14:30-0400 SaO2% (BldA) [Mass fraction] 99 % Sandra Geovanna Other [facility] Other 06-24-2023 14:30-0400 Systolic blood pressure 110 mm[Hg] Sandra Austin Other [facility] Other 04-15-2023 09:25-0400 Body height 160.02 cm Ramonita Greenberg Other [facility] Other 04-15-2023 09:25-0400 Body mass index (BMI) [Ratio] 41.8 kg/m2 Ramonita Greenberg Other [facility] Other 04-15-2023 09:25-0400 Body temperature 98.5 [degF] Ramonita Greenberg Other [facility] Other 04-15-2023 09:25-0400 Body weight 107.05 kg Ramonita Greenberg Other [facility] Other 04-15-2023 09:25-0400 Respiratory rate 18 /min Ramonita Greenberg Other [facility] Other 04-15-2023 09:25-0400 SaO2% (BldA) [Mass fraction] 97 % Ramonita Greenberg Other [facility] Other 02-21-2023 14:45-0400 Body height 160.02 cm Sandra Austin Other [facility] Other 02-21-2023 14:45-0400 Body mass index (BMI) [Ratio] 41.39 kg/m2 Sandra Austin Other [facility] Other 02-21-2023 14:45-0400 Body weight 106.01 kg Sandar Austin Other [facility] Other 02-21-2023 14:45-0400 Diastolic blood pressure 60 mm[Hg] Sandra Austin Other [facility] Other 02-21-2023 14:45-0400 Respiratory rate 18 /min Sandra Austin Other [facility] Other 02-21-2023 14:45-0400 SaO2% (BldA) [Mass fraction] 98 % Sandra Austin Other [facility] Other 02-21-2023 14:45-0400 Systolic blood pressure 110 mm[Hg] Sandra Austin Other [facility] Other 12-24-2022 14:30-0500 Body height 160.02 cm Sandra Austin Other [facility] Other 12-24-2022 14:30-0500 Body mass index (BMI) [Ratio] 40.83 kg/m2 Sandra Austin Other [facility] Other 12-24-2022 14:30-0500 Body weight 104.55 kg Sandra Austin Other [facility] Other 12-24-2022 14:30-0500 Diastolic blood pressure 70 mm[Hg] Sandra Austin Other [facility] Other 12-24-2022 14:30-0500 Respiratory rate 18 /min Sandra Austin Other [facility] Other 12-24-2022 14:30-0500 SaO2% (BldA) [Mass fraction] 99 % Sandra Austin Other [facility] Other 12-24-2022 14:30-0500 Systolic blood pressure 118 mm[Hg] Sandra Austin Other [facility] Other 12-21-2021 16:30-0500 Body height 160.02 cm Sandra Austin Other [facility] Other 12-21-2021 16:30-0500 Body mass index (BMI) [Ratio] 38.58 kg/m2 Sadnra Austin Other [facility] Other 12-21-2021 16:30-0500 Body temperature 97.3 [degF] Sandra Austin Other [facility] Other 12-21-2021 16:30-0500 Body weight 98.79 kg Sandra Austin Other [facility] Other 12-21-2021 16:30-0500 Diastolic blood pressure 60 mm[Hg] Sandra Austin Other [facility] Other 12-21-2021 16:30-0500 Respiratory rate 18 /min Sandra Austin Other [facility] Other 12-21-2021 16:30-0500 SaO2% (BldA) [Mass fraction] 99 % Sandra Austin Other [facility] Other 12-21-2021 16:30-0500 Systolic blood pressure 118 mm[Hg] Sandra Austin Other [facility] Other Encounters Encounter Date Encounter Type Care Provider Facility Start: 02-13-2024 End: 02-13-2024 ambulatory [facility] Work Phone: Start: 02-13-2024 End: 02-13-2024 Patient encounter procedure [facility] Work Phone: Start: 12-16-2023 End: 12-16-2023 ambulatory AGUS SANTO Not Available Start: 12-16-2023 Non-patient / Non-visit [facility] [employer] Work Phone: Start: 10-31-2023 End: 10-31-2023 ambulatory Sandra Kaple Other [facility] Other Start: 10-31-2023 Office outpatient vi sit 25 minutes Sandra Austin [facility] Start: 07-19-2023 End: 07-19-2023 ambulatory Sandra Deonnaaldo Other [facility] Other Start: 07-19-2023 Telephone encounter Sandra Pendletonaldo [facility] Start: 06-24-2023 End: 06-24-2023 ambulatory Sandra Pendletonaldo Other [facility] Other Start: 06-24-2023 Office outpatient vi sit 25 minutes Sandra Austin [facility] Start: 06-04-2023 End: 06-04-2023 ambulatory Sandra Austin Other [facility] Other Start: 06-04-2023 Telephone encounter Sandra Geovanna [facility] Start: 04-15-2023 End: 04-15-2023 ambulatory Ramonita Yari Other [facility] Other Start: 04-15-2023 Office outpatient vi sit 15 minutes Armonitabrad Greenberg [facility] Start: 04-11-2023 End: 04-11-2023 ambulatory Sandra Austin Other [facility] Other Start: 04-11-2023 Telephone encounter Sandra Pendletonaldo [facility] Start: 02-21-2023 Office outpatient vi sit 25 minutes Sandra Austin [facility] Start: 02-21-2023 End: 02-22-2023 ambulatory SANDRA DEONNALE [facility] Other Start: 01-04-2023 End: 01-04-2023 ambulatory Sandra Austin Other [facility] Other Start: 01-04-2023 Telephone encounter Sandra Austin [facility] Start: 12-30-2022 Encounter for genera l adult medical examination without abnormal findings SANDRA AUSTIN [facility] Start: 12-27-2022 End: 12-27-2022 ambulatory Sandra Austin Other [facility] Other Start: 12-27-2022 Telephone encounter Sandra Geovanna [facility] Start: 12-26-2022 End: 12-27-2022 ambulatory SANDRA AUSTIN Facility:[facility]1 Start: 12-26-2022 End: 12-27-2022 Encounter for general adult medical examination without abnormal findings SANDRA AUSTIN Facility:[facility]1 Start: 12-24-2022 End: 12-24-2022 ambulatory Sandra Austin Other [facility] Other Start: 12-24-2022 Encounter for genera l adult medical examination without abnormal findings Sandra Austin [facility] [place] Start: 12-24-2022 Periodic preventive med est patient 18-39 yrs Sandra Austin [facility] Start: 12-10-2022 End: 12-10-[address] AGUS [...] [place]USTIN Facility:H1 Start: 08-17-2022 End: 08-17-2022 ambulatory VIGRINIALINDSEY TORRES Facility:[facility]1 Start: 08-15-2022 End: 08-15-[address] AGUS SANTO . Facility:[facility]1 Start: 08-10-2022 End: 08-10-2022 ambulatory SANDRA AUSTIN Facility:[facility]1 Start: 07-25-2022 End: 07-26-2022 ambulatory SANDRA GEOVANNA Facility:[facility]1 Start: 07-24-2022 End: 07-25-2022 ambulatory SANDRA [...] 12-21-2021 End: 12-21-2021 ambulatory Sandra Austin Other [facility] Other Start: 12-21-2021 Office outpatient ne w 45 minutes Sandra Austin [facility] Procedures Date Procedure Procedure Detail Performing Clinician Start: 09-06-2022 Delivery of Products of Conception, External Approach SANDRA AUSTIN Start: 09-06-2022 Division of Female P erineum, [...] Perineum Musc le, Open Approach SANDRA AUSTIN Plan of Treatment Date Care Activity Detail Author Patient Education Low back pain in adults [facility] Work Phone: Payers Date Payer Category Payer Unknown [id number] 2. [id number] 1997 Unknown [id number] 2.16.84 0.1.884353.3.579.2.593 1997 Unknown [id number] 2.16.84 0.1.195053.3.579.2.593 1997 Unknown [id number] 2.16.84 0.1.560323.3.579.2.593 1997 Unknown [id number] 2.16.84 0.1.005349.3.579.2.593 1997 Unknown [id number] 2.16.84 0.1.858802.3.579.2.593 1997 Unknown [id number] 2.16.84 0.1.736593.3.579.2.593 1997 Unknown [id number] 2.16.84 0.1.601448.3.579.2.593 1997 Unknown [id number] 2.16.84 0.1.384179.3.579.2.593 1997 Unknown [id number] 2.16.84 0.1.479449.3.579.2.593 1997 Unknown [id number] 2.16.84 0.1.269757.3.579.2.593 1997 Unknown [id number] 2.16.84 0.1.271492.3.579.2.593 1997 Unknown [id number] 2.16.84 0.1.991579.3.579.2.593 1997 Unknown [id number] 2.16.84 0.1.311023.3.579.2.593 1997 Unknown [id number] 2.16.84 0.1.769543.3.579.2.593 1997 Unknown [id number] 2.16.84 0.1.579070.3.579.2.593 1997 Unknown [id number] 2.16.84 0.1.018758.3.579.2.593 1997 Unknown [id number] 2.16.84 0.1.547910.3.579.2.593 1997 Unknown [id number] 2.16.84 0.1.393663.3.579.2.593 1997 Unknown [id number] 2.16.84 0.1.687941.3.579.2.593 1997 Unknown [id number] 2.16.84 0.1.420417.3.579.2.593 1997 Unknown [id number] 2.16.84 0.1.136166.3.579.2.593 1997 Unknown [id number] 2.16.84 0.1.167350.3.579.2.593 1997 Unknown [id number] 2.16.84 0.1.683644.3.579.2.593 1997 Unknown [id number] 2.16.84 0.1.836999.3.579.2.1259 1957 Medicaid [id number] 2. [id number] 1957 Private Health Insurance [id number] Self-pay Self Pay [id number] Unknown Veyo [id number] Social History Date Type Detail Facility Sex Assigned At [facility] Other Start: 1995 Sex Assigned At Female F [facility] Clinical Notes 12-21-2021 to 10-31-2023 Note Date [...] E28.2) She will continue to follow with [facility] and continue healthy lifestyle changes that she [...] course of antibiotic. Increase fluids and rest. [id number] antipyretics as needed. Warning signs and symptoms reviewed with patient today. Patient to go immediately to the ER should she experience any of these. Patient to notify office should her symptoms persist and not improve. Patient verbalizes understanding and agrees to treatment plan. [facility] Other 09-22-2023 Evaluation note* Encounter Date Diagnosis Assessment Notes Treatment Notes Treatment Clinical Notes Jun, Vitamin D insufficiency (ICD-10 - E55.9) [facility] Other 08-28-2023 Evaluation note* Encounter Date Diagnosis Assessment Notes Treatment Notes Treatment Clinical Notes May, Prediabetes (ICD-10 - R73.03) Recent lab work reviewed with her from [facility]. In office hgba1c shows good control with diet and exercise. Will continue current treatment plan. Patient is advised to work on healthy diet choices and appropriate servings, weight control, regular exercise as directed, reduced fat intake, and salt avoidance. Patient voiced understanding of this and agrees to this plan. May, PCOS (polycystic ovarian syndrome) (ICD-10 - E28.2) She will continue to follow with OB-[facility]ARE [facility] and continue healthy lifestyle changes that she [...] ENT today. Specialty notes reviewed as received. [facility] Other 08-08-2023 Evaluation note* Encounter Date Diagnosis Assessment Notes Treatment Notes Treatment Clinical Notes May, Other atopic dermatitis (ICD-10 - L20.89) May, Acute otitis externa of both ears, unspecified type (ICD-10 - H60.503) [facility] Other 06-19-2023 Evaluation note* Encounter Date Diagnosis Assessment Notes Treatment Notes Treatment Clinical Notes Mar, Sore throat (ICD-10 - J02.9) Mar, Strep pharyngitis (ICD-10 - J02.0) Strep throat material was printed Drink plenty fluids, get plenty of rest. Take the amoxicillin as prescribed until gone. Take Tylenol or Motrin as needed for aches pains or fevers. Off work today and tomorrow. Follow-up with family physician if no improvement in 2 to 3 days [facility] Other 06-15-2023 Evaluation note* Encounter Date Diagnosis Assessment Notes Treatment Notes Treatment Clinical Notes Mar, Anxiety (ICD-10 - F41.9) [facility] Other 04-27-2023 Evaluation note* Encounter Date Diagnosis [...] Celexa 40 mg daily. Will continue this. 27 Apr, 2023 Other Alk phos rec heck remained about the same, should normalize over post period. Will plan on rechecking this at May appointment. [facility] Other 03-10-2023 Evaluation note* Encounter Date Diagnosis Assessment Notes Treatment Notes Treatment Clinical Notes Dec, Bacterial conjunctivitis (ICD-10 - H10.9) [facility] Other 03-02-2023 Evaluation note* Encounter Date Diagnosis Assessment Notes Treatment Notes Treatment Clinical Notes Dec, Vitamin D insufficiency (ICD-10 - E55.9) Dec, Elevated alkaline phosphatase level (ICD-10 - R74.8) Dec, Other specified hypothyroidism (ICD-10 - E03.8) [facility] Other 02-27-2023 Evaluation note* Encounter Date Diagnosis [...] ordered. Follow routinely with eye doctor, dentist, [facility]. Patient is advised to work on healthy diet choices and appropriate servings, weight control, regular exercise as directed, reduced fat intake, and salt avoidance. Patient voiced understanding of this and agrees to this plan. Nov, PCOS (polycystic ovarian syndrome) (ICD-10 - E28.2) Routine lab work ordered. She will continue to follow with OB-HEALTHCARE [facility] MEDICAL and continue healthy lifestyle changes that she [...] homicidal ideations. Started on Celexa by her [facility]ALTHCARE [facility] MED[facility]. Very stable on Celexa 20 mg daily. Our office will take this over. Nov, Severe obesity (BMI >= 40) (ICD-10 - E66.01) Patient is advised to work on healthy diet choices and appropriate servings, weight control, regular exercise as directed, reduced fat intake, and salt avoidance. Patient voiced understanding of this and agrees to this plan. Nov, Other She will uti jarred Jordan OTC for small effusions to her ears bilaterally. She will notify office should pressure in her ears still persist after starting this. [facility] Other 02-24-2022 Evaluation note* Encounter Date Diagnosis Assessment Notes Treatment Notes Treatment Clinical Notes Nov, Prediabetes (ICD-10 - R73.03) She was recently dx with prediabetes and was started on Metformin 500 mg BID 2 weeks ago by her OB-[facility]. She would like to follow with our [...] - E28.2) She is following with her OB-[facility] for her PCOS and is currently on Metformin 500 mg BID and is taking medication to help her get . She will continue to follow with OB-[facility]ALTHCARE [facility] MEDICAL and continue healthy lifestyle changes that she [...] of fatigue, difficulty losing weight by her OB-[facility]ALTH[facility]ARE [facility] MED[facility]. She would like to start following with [...] of this and agrees to this plan. [facility] Other Evaluation note* Diagnosis Onset Date Resolution Status 8 weeks gestation of acute Low back pain [facility] Work Phone: History general Narrative - Reported* Type Description Date Medical History PCOS Medical History THYROID ISSUES Surgical History THIRD NIPPLE REMOVED Surgical History Colonoscopy-normal 2018 [facility] Other Summary Purpose Family History Relationship Condition Age at Onset Recorded Date/T jordon father Diabetes mellitus Unknown Hypertension Unknown Not Specified Heart disease Unknown Advance Directives Advance Directive Response Recorded Date/ Time Advance Directives No September 2:40pm Reason for Referral Reason Refer to Dr. Adi orozco for right ear itching and pain; not relieve with many treatments Diagnosis 1 Right ear pain (H92. 01) Referral Organization [facility] Family Gonzales Hernandez Referring Provider First Name Sandra Referring Provider Last Name Geovanna Referring Provider Specialty Nurse Pract itioner Referred Provider Specialty Ear, Nose an d Throat Referral Priority Routine Chief Complaint and Reason for Visit Chief Complaint lower back pain Reason for Visit 8 weeks gestation of Low back pain Additional Source Comments REASON FOR VISIT (unrecogniz ed section and content) EST CARE1 year Follow up, hg [id number] resultspink eyepossible mastitisstrep throatanxietyear gtts6 month Follow uprefill4 month Follow up, hgba1c INFORMATION SOURCE (unrecogn ized section and content) DATE CREATED AUTHOR 02/25/2023 [facility] DATE CREATED AUTHOR AUTHOR'S ESMER ATION 12/17/2023 [facility] EPIC Care Teams (unrecognized sec tion and content) Team Status: Active Member Role Status Dates Sandra Austin DNP Primary Care Provider Active Team Status: Active Member Role Status Dates Sandra Austin DNP Primary Care Provid er, Attending Provider Active Start: December 16, 2023 Team Status: Inactive Member Role Status Dates Sandra Austin DNP Primary Care Provid er, Attending Provider Active Start: February 13, 2024 End: February 13, 2024 Goals (unrecognized section and content) Goals may be documented in a n alternate section FOR RECORDS PERTAINING TO PATIENTS WHO ARE [...] BE BASED ON THE PRIMARY CLINICAL RECORDS. [facility] [facility]. provides no warranty or guarantee of the accuracy or completeness of information in this document.
--- NOTE | 2024-02-14 10:29 | US_ITS ---
[place] [id number] Patient Name: SOFIA ZEPEDA MRN: [id number] date: 1995 Sex: F Assigned Patient Location: [facility] Current Patient Location: [facility] Accession/Order Number: [id number] Exam Date: 02/14/2024 10:30 Report Date: 02/14/2024 11:25 At the request of: AGUS SANTO Procedure: US OB transvaginal EXAMINATION: US OB transvaginal HISTORY: MISSED MENSES COMPARISON: No relevant comparison available. FINDINGS: GESTATIONAL SAC: Present and normal appearing. YOLK SAC: Present and normal appearing. POLE: Present and normal appearing. CARDIAC: Present. UTERUS: Normal size and appearance. OVARIES: Right: Normal. Left: Normal. CERVIX: 4.5 cm in length and closed. CUL-DE-SAC: Normal. OTHER: None. AGE BY LMP: 8 weeks 0 days HERNANDO BY LMP: 09/25/2024 AGE BY US CRL: 8 weeks 3 days HERNANDO BY US CRL: 09/22/2024 US/US OB transvaginal IMPRESSION: 1. Single live intrauterine . Electronically authenticated by: RAGINI SANTOS Date: 02/14/2024 11:25
== END 2024-02-14 10:01 | disposition home or self-care (01) ==
LOC: NOMS 10:00
PROVIDERS: PCP Nurse Practitioner Family; Visit Provider Obstetrics & Gynecology
DX: Z34.91 Encounter for supervision of normal pregnancy, unspecified, first trimester (principal)
CPT/HCPCS: 76817

== ENCOUNTER 2024-02-19 15:19 | Outpatient (OUT) | payer OTHER, SELFPAY ==
--- OUTSIDE RECORDS SUMMARY | 2024-02-19 15:42 | XMS_ITS | CCD ---
Author Organization [facility] Care Team Providers Care Acid Bleacher Name Role Phone [facility] Primary Care Unavailable HANSA ., DR GOLDSMITH Attending Unavailable [place], DR MANUELITO Foley Consulting Unavailable HANSA ., DR GOLDSMITH Admitting Unavailable HANSA ., DR GOLDSMITH Consulting Unavailable BRIAN, VIRGINIA Admitting Unavailable BRIANVIR[place]IA Attending Unavailable [facility] [place] Primary Care Unavailable [place], DR MANUELITO Foley Consulting Unavailable HANSA ., DR GOLDSMITH Consulting Unavailable BRIAN, VIRGINIA Consulting Unavailable HANSA ., DR GOLDSMITH Attending Unavailable [place], SANDRA Primary Care Unavailable HANSA ., DR GOLDSMITH Admitting Unavailable HANSA ., DR GOLDSMITH Consulting Unavailable [place], SANDRA Primary Care Unavailable HANSA ., DR GOLDSMITH Consulting Unavailable HANSA ., DR GOLDSMITH Attending Unavailable HANSA ., DR GOLDSMITH Admitting Unavailable HANSA ., DR GOLDSMITH Attending Unavailable [facility] Primary Care Unavailable HANSA ., DR GOLDSMITH Admitting Unavailable [place], DR MANUELITO Foley Consulting Unavailable HANSA ., [...] Admitting Unavailable [place]DRA [place] Primary Care Unavailable KARASIK ., DR HU Admitting Unavailabl e KARASIK ., DR HU Attending Unavailabl e KARASIK ., DR HU Consulting Unavailabl e [place], DR MANUELITO Foley Consulting Unavailable HANSA ., DR GOLDSMITH Consulting Unavailable SANDRA [place] [facility] Care Unavailable HANSA ., DR GOLDSMITH Attending [facility], DR MANUELITO Foley Consulting Unavailable HANSA ., [...] Geovanna Hall take 1 tablet by tamica th once [...] (1 source) Serotonin-3 Receptor Antagonist Start: 02-13-20 24 take 4 mg by mouth every eight hours Ondansetron Hcl Active 4 MG PO Every 8 hours February 13, 2024 12:00am polymyxin b 35427 unt/ml / trimethoprim 1 mg/ml ophthalmic solution (3 sources) Dihydrofolate Reductase Inhibitor Antibacterial, Polymyxin-class Antibacterial Start: 01-05-20 Polymyxin B-Trimethoprim 11153-3.1 UNIT/ML 1 drop into affected eye Ophthalmic [...] acid 7540 MG / polyethylene glycol 3350 66079 MG / potassium chloride 1200 MG / sodium ascorbate 29975 MG / sodium chloride 3200 MG Powder for Oral Solution) / 1 (polyethylene glycol 3350 214216 MG / potassium chloride 1000 MG / [...] DNA Probe+sig amp Ql (Cvx) Note . [facility] Comment on above: TESTS RESULT FLAG UN ITS REF RANGE LAB DI AGNOSIS: 02 NEGATIVE FOR INTRAEPITHELIAL LESION OR MALIGNANCY.Specimen adequacy: 02 Satisfactory for evaluation. Endocervical and/or squamous metaplastic cells (endocervical component) are present.Performed by: Troy Duran, [employer] Service Supervisor (ASCP). 02Note: Note 02 The Pap smear is a screening test designed to aid in the detection of premalignant and malignant conditions of the uterine cervix. It is not a diagnostic procedure and should not be used as the sole means of detecting cervical cancer. Both false-positive and false-negative reports do occur.Test Methodology: Note 02 The [employer](R) Chief Nurse was unable to read this specimen. Therefore a manual review was performed. ----- FLAG LEGEND: L-Low Normal,H-High Normal,LL-Alert Low,HH-Alert High <-Panic Low,>-Panic High,A-Abnormal,AA-Critical Abnormal ---Performed at:02 WB [facility] [address] [place] [address] Heavenly Serrano MD, . 02 The HPV DNA reflex criteria were not met with this specimen result therefore, no HPV testing was performed.The HPV DNA reflex criteria were not met with this specimenresult therefore, no HPV testing was performed.Performed at: =G - [facility] [place], [place] [id number] Director: Heavenly Serrano MD, Phone: [phone] at: WB - [facility] [place], [place] [id number] Director: Heavenly Serrano MD, Phone: [phone] No Panel Informationon 12-16 Reference Lab Test Patient Age Note . [facility] Comment on above: TESTS RESULT FLAG UN ITS REF RANGE LAB Clinician Provided Cytology Information Source.............Cervix No. of containers..01 ThinPrep VialAge Niruo ACOG Leslye... FLAG LEGEND: L-Low Normal,H-High Normal,LL-Alert Low,HH-Alert High <-Panic Low,>-Panic High,A-Abnormal,AA-Critical Abnormal ---Performed at:01 =G [facility] [address] [place] [address] Heavenly Serrano MD, A1C HEMOGLOBINon 10-31-2023 HbA1c (Bld) [Mass fraction] 5.8 % [employer] Other HbA1c (Bld) [Mass fraction]o n 10-31-2023 A1C HEMOGLOBIN [employer] Other A1C HEMOGLOBINon 06-24-2023 HbA1c (Bld) [Mass fraction] 5.2 % [employer] Other HbA1c (Bld) [Mass fraction]o n 06-24-2023 A1C HEMOGLOBIN [employer] Other Quick Strepon 04-15-2023 S. pyogenes Org specific cx Ql (Throat) Positive [employer] Other Quick Strep [employer] Other FREE T4on 02-21-2023 Free T4 [Mass/Vol] 0.89 ng/dL Normal 0.76-1.46 [facility] Comment on above: Performed By: #### H H #### [facility] [address] [place] [address] Dr. Bella Jerome PROF 14(COMP METB)on 023 Albumin [Mass/Vol] 3.7 g/dL Normal 3.4-5.0 [facility] Comment on above: Performed By: #### H H #### [facility] [address] [place] [address] Dr. Bella Jerome Albumin/Globulin [Mass ratio] 0.9 {ratio} Normal [facility] Comment on above: Performed By: #### H H #### [facility] [address] [place] [address] Dr. Bella Jerome ALP [Catalytic activity/Vol] 132 U/L Critically high 46-116 [facility] Comment on above: Performed By: #### H H #### [facility] [address] [address] [address] Bella Jerome ALT [Catalytic activity/Vol] 32 U/L Normal 14-59 [facility] Comment on above: Performed By: #### H H #### [facility] [address] [place] [address] Dr. Bella Jerome Anion gap [Moles/Vol] 12.8 mmol/L Normal [facility] Comment on above: Performed By: #### H H #### [facility] [address] [address] [address] Bella Jerome AST [Catalytic activity/Vol] 23 U/L Normal 15-37 [facility] Comment on above: Performed By: #### H H #### [facility] [address] [address] [address] Bella Jerome Bilirubin [Mass/Vol] 0.6 mg/dL Normal 0.2-1.0 [facility] Comment on above: Performed By: #### H H #### [facility] [address] [address] [address] Bella Jerome Calcium [Mass/Vol] 9.0 mg/dL Normal 8.5-10.1 [facility] Comment on above: Performed By: #### H H #### [facility] [address] [address] [address] Bella Jerome Chloride [Moles/Vol] 102 mmol/L Normal 98-107 [facility] Comment on above: Performed By: #### H H #### [facility] [address] [address] [address] Bella Jerome CO2 [Moles/Vol] 28.2 mmol/L Normal 21.0-32.0 [facility] Comment on above: Performed By: #### H H #### [facility] [address] [address] [address] Bella Jerome Creatinine [Mass/Vol] 0.67 mg/dL Normal 0.55-1.02 [facility] Comment on above: Performed By: #### H H #### [facility] [address] [address] [address] Bella Jerome EGFR-AF GUAMANIAN >60 Normal >=60 [facility] Comment on above: Performed By: #### H H #### [facility] [address] [address] [address] Bella Jerome EGFR-NON AF GUAMANIAN >60 Normal >=60 [facility] Comment on above: Performed By: #### H H #### [facility] [address] [address] [address] Bella Jerome Globulin (S) [Mass/Vol] 4.2 g/dL Normal [facility] Comment on above: Performed By: #### H H #### [facility] [address] [place] [address] Dr. Bella Jerome Glucose [Mass/Vol] 88 mg/dL Normal 74-106 [facility] Comment on above: Performed By: #### H H #### [facility] [address] [address] [address] Bella Jerome Potassium [Moles/Vol] 4.0 mmol/L Normal 3.5-5.1 [facility] Comment on above: Performed By: #### H H #### [facility] [address] [place] [address] Dr. Bella Jerome Protein [Mass/Vol] 7.9 g/dL Normal 6.4-8.2 [facility] Comment on above: Performed By: #### H H #### [facility] [address] [place] [address] Dr. Bella Jerome Sodium [Moles/Vol] 139 mmol/L Normal 136-145 [facility] Comment on above: Performed By: #### H H #### [facility] [address] [place] [address] Dr. Blela Jerome Urea nitrogen [Mass/Vol] 12.0 mg/dL Normal 7.0-18.0 [facility] Comment on above: Performed By: #### H H #### [facility] [address] [place] [address] Dr. Bella Jerome Urea nitrogen/Creatinine [Mass ratio] 17.9 mg/mg Normal [facility] Comment on above: Performed By: #### H H #### [facility] [address] [place] [address] Dr. Bella Jerome TSHon 02-21-2023 TSH 2.463 uIU/mL Normal 0.358-3.740 [facility] Comment on above: Performed By: #### H H #### [facility] [address] [place] [address] Dr. Bella Jerome VITAMIN D 25 OHon 02-21-2023 VIT D 25-OH 23.1 ng/mL Normal [facility] Comment on above: Performed By: #### H H #### [facility] [address] [place] [address] Dr. Bella Jerome VIT D RANGES SEE BELOW Normal [facility] Comment on above: Result Comment: <20 ng/mL Vit D deficient 20 - <30 ng/mL Vit D insufficient 30 - 100 ng/mL Vit D sufficient >100 ng/mL Potential Toxicity Performed By: #### H H #### [facility] [address] [place] [address] Dr. Bella Jerome CBC AUTO DIFFon 12-26-2022 BASO # 0.0 103/ul Normal 0.0-0.1 [facility] Comment on above: Performed By: #### C BC #### [facility] [address] [place] [address] Dr. Bella Jerome Basophils/100 WBC (Bld) 0.3 % Normal 0.2-2.0 [facility] Comment on above: Performed By: #### C BC #### [facility] [address] [place] [address] Dr. Bella Jerome EO # 0.1 103/ul Normal 0.0-0.7 [facility] Comment on above: Performed By: #### C BC #### [facility] [address] [place] [address] Dr. Bella Jerome Eosinophils/100 WBC (Bld) 1.6 % Normal 0.9-7.0 [facility] Comment on above: Performed By: #### C BC #### [facility] [address] [place] [address] Dr. Bella Jerome Erythrocyte distribution width (RBC) [Ratio] 12.7 % Normal 11.0-15.0 [facility] Comment on above: Performed By: #### C BC #### [facility] [address] [place] [address] Dr. Bella Jerome Hematocrit (Bld) [Volume fraction] 37.2 % Normal 36.0-48.0 [facility] Comment on above: Performed By: #### C BC #### [facility] [address] [address] [address] Bella Jerome Hemoglobin (Bld) [Mass/Vol] 12.5 g/dL Normal 12.0-16.0 [facility] Comment on above: Performed By: #### C BC #### [facility] [address] [address] [address] Bella Jerome IG # 0.02 10e3/ul Normal 0.00-0.03 [facility] Comment on above: Performed By: #### C BC #### [facility] [address] [place] [address] Dr. Bella Jerome IG % 0.3 % Normal 0.0-0.5 [facility] Comment on above: Performed By: #### C BC #### [facility] [address] [place] [address] Dr. Bella Jerome LYMPH # 2.3 103/ul Normal 1.2-3.8 [facility] Comment on above: Performed By: #### C BC #### [facility] [address] [place] [address] Dr. Bella Jerome Lymphocytes/100 WBC (Bld) 34.1 % Normal 20.5-60.0 [facility] Comment on above: Performed By: #### C BC #### [facility] [address] [place] [address] Dr. Bella Jerome MANUAL DIFF REQ NO Normal [facility] Comment on above: Performed By: #### C BC #### [facility] [address] [place] [address] Dr. Bella Jerome MCH (RBC) [Entitic mass] 30.9 pg Normal 26.7-34.0 [facility] Comment on above: Performed By: #### C BC #### [facility] [address] [place] [address] Dr. Bella Jerome MCHC (RBC) [Mass/Vol] 33.6 g/dL Normal 29.9-35.2 [facility] Comment on above: Performed By: #### C BC #### [facility] [address] [address] [address] Bella Jerome MCV (RBC) [Entitic vol] 91.9 fL Normal 81.0-99.0 [facility] Comment on above: Performed By: #### C BC #### [facility] [address] [address] [address] Bella Jerome MONO # 0.4 103/ul Normal 0.3-0.8 [facility] Comment on above: Performed By: #### C BC #### [facility] [address] [address] [address] Bella Jerome Monocytes/100 WBC (Bld) 5.1 % Normal 1.7-12.0 [facility] Comment on above: Performed By: #### C BC #### [facility] [address] [place] [address] Dr. Bella Jerome NEUT # 4.0 103/ul Normal 1.4-6.5 [facility] Comment on above: Performed By: #### C BC #### [facility] [address] [place] [address] Dr. Bella Jerome Neutrophils/100 WBC (Bld) 58.6 % Normal 43.0-75.0 [facility] Comment on above: Performed By: #### C BC #### [facility] [address] [place] [address] Dr. Bella Jerome Platelet mean volume (Bld) [Entitic vol] 11.5 fL Normal 9.5-13.5 [facility] Comment on above: Performed By: #### C BC #### [facility] [address] [place] [address] Dr. Bella Jerome PLT 243 103/ul Normal 150-450 [facility] Comment on above: Performed By: #### C BC #### [facility] [address] [address] [address] Bella Jerome RBC 4.05 106/ul Critically low 4.20-5.40 [facility] Comment on above: Performed By: #### C BC #### [facility] [address] [address] [address] Bella Jerome WBC 6.8 103/ul Normal 4.0-11.0 [facility] Comment on above: Performed By: #### C BC #### [facility] [address] [address] [address] Bella Jerome FREE T4on 12-26-2022 Free T4 [Mass/Vol] 1.05 ng/dL Normal 0.76-1.46 [facility] Comment on above: Performed By: #### F T4, VITAD, B12FOL, IRON ####[facility] [id number] [id number] Bella Jerome GLYCOHEMOGLOBIN A1Con 2022 ADA RECOMMENDATION SEE BELOW Normal [facility] Comment on above: Result Comment: ADA RECOMMENDED LIMIT 4.0 - 6.0 ADA THERAPEUTIC TARGET < 7.0 ACTION SUGGESTED > 7.0 Performed By: #### A 1C #### [facility] [address] [address] [address] Bella Jerome Glucose [Mass/Vol] 103 mg/dL Normal [facility] Comment on above: Performed By: #### A 1C #### [facility] [address] [address] [address] Bella Jerome HbA1c (Bld) [Mass fraction] 5.2 % Normal 4.5-6.2 [facility] Comment on above: Performed By: #### A 1C #### [facility] [address] [address] [address] Bella Jerome IRONon 12-26-2022 Iron [Mass/Vol] 74.0 ug/dL Normal 50.0-170.0 [facility] Comment on above: Performed By: #### F T4, VITAD, B12FOL, IRON ####[facility] [id number] [id number] Bella Jerome LIPID PROFILEon 12-26-2022 CHOL-HDL RATIO NORM SEE BELOW Normal [facility] Comment on above: Result Comment: 3.3 - 4.4 LOW RISK 4.4 - 7.1 AVERAGE RISK 7.1 - 11.0 MODERATE RISK >11.0 HIGH RISK Performed By: #### C MP, TSH, LIPID #### [facility] [address] [address] [address] Bella Jerome Cholesterol [Mass/Vol] 153 mg/dL Normal <=200 [facility] Comment on above: Performed By: #### C MP, TSH, LIPID #### [facility] [address] [address] [address] Bella Jerome Cholesterol in HDL [Mass/Vol] 67 mg/dL Critically high 40-60 [facility] Comment on above: Performed By: #### C MP, TSH, LIPID #### [facility] [address] [address] [address] Bella Jerome Cholesterol in LDL [Mass/Vol] 77.2 mg/dL Normal [facility] Comment on above: Performed By: #### C MP, TSH, LIPID #### [facility] [address] [place] [address] Dr. Bella Jerome Cholesterol.total/Ch olesterol in HDL [Mass ratio] 2.3 {ratio} Normal [facility] Comment on above: Performed By: #### C MP, TSH, LIPID #### [facility] [address] [place] [address] Dr. Bella Jerome HDL NORMAL > or = 60 mg/dl - LOW CARDIOVASCULAR RISK <40 mg/dl - HIGH CARDIOVASCULAR RISK Normal [facility] Comment on above: Performed By: #### C MP, TSH, LIPID #### [facility] [address] [address] [address] Bella Jerome LDL CALC NORMAL SEE BELOW Normal [facility] Comment on above: Result Comment: <100 mg/dl OPTIMAL 100 - 129 mg/dl NEAR OR ABOVE OPTIMAL 130 - 159 mg/dl BORDERLINE HIGH 160 - 189 mg/dl HIGH >190 mg/dl VERY HIGH Performed By: #### C MP, TSH, LIPID #### [facility] [address] [place] [address] Dr. Bella Jerome Triglyceride [Mass/Vol] 44 mg/dL Normal <=150 [facility] Comment on above: Performed By: #### C MP, TSH, LIPID #### [facility] [address] [address] [address] Bella Jerome VLDL CALC 8.8 mg/dL Normal [facility] Comment on above: Performed By: #### C MP, TSH, LIPID #### [facility] [address] [address] [address] Bella Jerome MICROALB CREAT RATIO RANDOMo n 12-26-2022 mALB 2.3 mg/L Normal <=30.0 [facility] Comment on above: Performed By: #### H H #### [facility] [address] [address] [address] Bella DENISEB CR RATIO 17.4 mg/g Normal 0.0-29.9 [facility] Comment on above: Performed By: #### H H #### [facility] [address] [place] [address] Dr. Bella Jerome MALB CR RATIO RANGE SEE BELOW Normal [facility] Comment on above: Result Comment: NO M ICROALBUMINURIA 0-29 MG/G CLINICAL MICROALBUMINURIA 30-300 MG/G MACROALBUMINURIA >300 MG/G Performed By: #### H H #### [facility] [address] [place] [address] Dr. Bella Jerome URINE CREAT 131.90 mg/dL Normal 20.00-300.00 [facility] Comment on above: Performed By: #### H H #### [facility] [address] [address] [address] Bella Jerome PROF 14(COMP METB)on 023 Albumin [Mass/Vol] 4.1 g/dL Normal 3.4-5.0 [facility] Comment on above: Performed By: #### C MP, TSH, LIPID #### [facility] [address] [place] [address] Dr. Bella Jerome Albumin/Globulin [Mass ratio] 1.3 {ratio} Normal [facility] Comment on above: Performed By: #### C MP, TSH, LIPID #### [facility] [address] [place] [address] Dr. Bella Jerome ALP [Catalytic activity/Vol] 124 U/L Critically high 46-116 [facility] Comment on above: Performed By: #### C MP, TSH, LIPID #### [facility] [address] [address] [address] Bella Jerome ALT [Catalytic activity/Vol] 16 U/L Normal 14-59 [facility] Comment on above: Performed By: #### C MP, TSH, LIPID #### [facility] [address] [address] [address] Bella Jerome Anion gap [Moles/Vol] 13.4 mmol/L Normal [facility] Comment on above: Performed By: #### C MP, TSH, LIPID #### [facility] [address] [place] [address] Dr. Bella Jerome AST [Catalytic activity/Vol] 17 U/L Normal 15-37 [facility] Comment on above: Performed By: #### C MP, TSH, LIPID #### [facility] [address] [place] [address] Dr. Bella Jerome Bilirubin [Mass/Vol] 0.8 mg/dL Normal 0.2-1.0 [facility] Comment on above: Performed By: #### C MP, TSH, LIPID #### [facility] [address] [place] [address] Dr. Bella Jerome Calcium [Mass/Vol] 8.9 mg/dL Normal 8.5-10.1 [facility] Comment on above: Performed By: #### C MP, TSH, LIPID #### [facility] [address] [place] [address] Dr. Bella Jerome Chloride [Moles/Vol] 103 mmol/L Normal 98-107 [facility] Comment on above: Performed By: #### C MP, TSH, LIPID #### [facility] [address] [place] [address] Dr. Bella Jerome CO2 [Moles/Vol] 25.6 mmol/L Normal 21.0-32.0 [facility] Comment on above: Performed By: #### C MP, TSH, LIPID #### [facility] [address] [address] [address] Bella Jerome Creatinine [Mass/Vol] 0.55 mg/dL Normal 0.55-1.02 [facility] Comment on above: Performed By: #### C MP, TSH, LIPID #### [facility] [address] [address] [address] Bella Jerome EGFR-AF GUAMANIAN >60 Normal >=60 [facility] Comment on above: Performed By: #### C MP, TSH, LIPID #### [facility] [address] [address] [address] Bella Jerome EGFR-NON AF GUAMANIAN >60 Normal >=60 [facility] Comment on above: Performed By: #### C MP, TSH, LIPID #### [facility] [address] [address] [address] Bella Jerome Globulin (S) [Mass/Vol] 3.1 g/dL Normal [facility] Comment on above: Performed By: #### C MP, TSH, LIPID #### [facility] [address] [address] [address] Bella Jerome Glucose [Mass/Vol] 82 mg/dL Normal 74-106 [facility] Comment on above: Performed By: #### C MP, TSH, LIPID #### [facility] [address] [address] [address] Bella Jerome Potassium [Moles/Vol] 4.0 mmol/L Normal 3.5-5.1 [facility] Comment on above: Performed By: #### C MP, TSH, LIPID #### [facility] [address] [address] [address] Bella Jerome Protein [Mass/Vol] 7.2 g/dL Normal 6.4-8.2 [facility] Comment on above: Performed By: #### C MP, TSH, LIPID #### [facility] [address] [address] [address] Bella Jerome Sodium [Moles/Vol] 138 mmol/L Normal 136-145 [facility] Comment on above: Performed By: #### C MP, TSH, LIPID #### [facility] [address] [address] [address] Bella Jerome Urea nitrogen [Mass/Vol] 14.0 mg/dL Normal 7.0-18.0 [facility] Comment on above: Performed By: #### C MP, TSH, LIPID #### [facility] [address] [address] [address] Bella Jerome Urea nitrogen/Creatinine [Mass ratio] 25.5 mg/mg Normal [facility] Comment on above: Performed By: #### C MP, TSH, LIPID #### [facility] [address] [address] [address] Bella Jerome TSHon 12-26-2022 TSH 0.224 uIU/mL Critically low 0.358-3.740 [facility] Comment on above: Performed By: #### C MP, TSH, LIPID #### [facility] [address] [address] [address] Bella Jerome VIT B12 AND FOLATEon 023 Cobalamin (Vitamin B12) [Mass/Vol] 702.0 pg/mL Normal 193.0-986.0 [facility] Comment on above: Performed By: #### F T4, VITAD, B12FOL, IRON ####[facility] [address] [id number] Jerome FOLATE 25.10 ng/mL Normal 8.60-58.90 [facility] Comment on above: Performed By: #### F T4, VITAD, B12FOL, IRON ####[facility] [address] [id number]. Bella Jerome VITAMIN D 25 OHon 12-26-2022 VIT D 25-OH 25.4 ng/mL Normal [facility] Comment on above: Performed By: #### F T4, VITAD, B12FOL, IRON ####[facility] [address] [id number] Jerome VIT D RANGES SEE BELOW Normal [facility] Comment on above: Result Comment: <20 ng/mL Vit D deficient 20 - <30 ng/mL Vit D insufficient 30 - 100 ng/mL Vit D sufficient >100 ng/mL Potential Toxicity Performed By: #### F T4, VITAD, B12FOL, IRON ####[facility] [address] [place], [place] [address]BmDr. Bella Jerome PAP ACOG PANEL 2: 23 to 29on 12-18-2022 . . Normal [facility] Comment on above: Performed By: #### C BC #### [facility] [id number] Bella Jerome Age Gdln ACOG Testing - [facility] Comment on above: Performed By: #### C BC #### [facility] [id number] Bella Jerome DIAGNOSIS: Comment [facility] Comment on above: Result Comment: NEGA TIVE FOR INTRAEPITHELIAL LESION OR MALIGNANCY. Performed By: #### C BC #### [facility] [address] [place] [address] Dr. Bella Jerome Methodology: Comment [facility] Comment on above: Result Comment: This liquid based ThinPrep(R) pap test was screened with the use of an image guided system. Performed By: #### C BC #### [facility] [phone] Bella Jerome Note: Comment [facility] Comment on above: Result Comment: The Pap smear is a screening test designed to aid in the detection of premalignant and malignant conditions of the uterine cervix. It is not a diagnostic procedure and should not be used as the sole means of detecting cervical cancer. Both false-positive and false-negative reports do occur. . Performed By: #### C BC #### [facility] [phone] Bella Jerome Performed by: Comment [facility] Comment on above: Result Comment: Byron Irby, Home [employer] Service Supervisor (ASCP) Performed By: #### C BC #### [facility] [phone] Bella Jerome Reflex Criteria: Comment [facility] [place] [facility] Comment on above: Result Comment: The HPV DNA reflex criteria were not met with this specimen result therefore, no HPV testing was performed. . Performed By: #### C BC #### [facility] [address] [place] [address] Dr. Bella Jerome Specimen adequacy: Comment Normal [facility] Comment on above: Result Comment: Sati sfactory for evaluation. Endocervical and/or squamous metaplastic cells (endocervical component) are present. Performed By: #### C BC #### [facility] [address] [address] [address] Bella Jerome CBC W MANUAL DIFFon 09-07-20 22 ATYPICAL LYMPH # Normal [facility] Comment on above: Performed By: #### C BCMAN ####[facility] [address] [place], [place] [address]Dr. Bella Jerome ATYPICAL LYMPH % Normal [facility] Comment on above: Performed By: #### C BCMAN ####[facility] [address] [place], [place] [address]Dr. Bella Jerome BAND # 0.2 103/ul Normal 0.0-0.3 [facility] Comment on above: Performed By: #### C BCMAN ####[facility] [address] [place], [place] [address]Dr. Bella Jerome BAND % 1 % Normal 0-5 [facility] Comment on above: Performed By: #### C BCMAN ####[facility] [address] [place], [place] [address]Dr. Bella Jerome BASOM # 0.00 103/ul Normal 0.00-0.10 [facility] Comment on above: Performed By: #### C BCMAN ####[facility] [address] [address]Dr. Bella Jerome BASOM % 0.0 % Critically low 0.2-2.0 The [facility] Comment on above: Performed By: #### C BCMAN ####[facility] [address] [address]Dr. Bella Jerome BLAST # Normal [facility] Comment on above: Performed By: #### C BCMAN ####[facility] [address] [phone]. Bella Jerome BLAST % Normal [facility] Comment on above: Performed By: #### C PEDRO ####[facility] [address] [phone]. Bella Jerome CORRECTED WBC Normal 4.0-11.0 [facility] Comment on above: Performed By: #### C PEDRO ####[facility] [address] [address]Dr. Bella Jerome EOS # 0.00 103/ul Normal 0.00-0.70 [facility] Comment on above: Performed By: #### C PEDRO ####[facility] [address] [place], [place] [address]Dr. Bella Jerome EOS% 0.0 % Critically low 0.9-7.0 [facility] Comment on above: Performed By: #### C PEDRO ####[facility] [address] [place], [place] [address]Dr. Bella Jerome HCT 30.5 % Critically low 36.0-48.0 [facility] Comment on above: Performed By: #### C PEDRO ####[facility] Of[address] [place], [place] [address]Dr. Bella Jerome HGB 10.5 g/dl Critically low 12.0-16.0 [facility] Comment on above: Performed By: #### C PEDRO ####[facility] [address] [place], [place] [address]Dr. Bella Jerome LYMPHM # 2.78 103/ul Normal 1.20-3.80 [facility] Comment on above: Performed By: #### C PEDRO ####[facility] [address] [place], [place] [address]Dr. Bella Jerome LYMPHM% 13.0 % Critically low 20.5-60.0 [facility] Comment on above: Performed By: #### C PEDRO ####[facility] [address]ie[address] [place], [place] [address]Dr. Bella Jerome MCH 32.8 pg Normal 26.7-34.0 [facility] Comment on above: Performed By: #### C PEDRO ####[facility] [address] [id number]. Bella Jerome MCHC 34.4 g/dl Normal 29.9-35.2 [facility] Comment on above: Performed By: #### C PEDRO ####[facility] [address] [id number]. Bella Jerome MCV 95.3 fL Normal 81.0-99.0 [facility] Comment on above: Performed By: #### C BCRELL ####[facility] [address] [place], [place] [address]Dr. Bella Jerome METAMYELOCYTE # Normal [facility] Comment on above: Performed By: #### C PEDRO ####[facility] [address] [place], [place] [address]Dr. Bella Jerome METAMYELOCYTE % Normal [facility] Comment on above: Performed By: #### C PEDRO ####[facility] [address] [id number]. Bella Jerome MONOM# 2.35 103/ul Critically high 0.30-0.80 [facility] Comment on above: Performed By: #### C PEDRO ####[facility] [address] [place], [place] [address]Dr. Bella Jerome MONOM% 11.0 % Normal 1.7-12.0 [facility] Comment on above: Performed By: #### C PEDRO ####[facility] [address] [id number]. Bella Jerome MPV 11.1 fL Normal 9.5-13.5 [facility] Comment on above: Performed By: #### C PEDRO ####[facility] [address] [phone]. Bella Jerome MYELOCYTE # Normal [facility] Comment on above: Performed By: #### Jennifer VASQUEZ ####[facility] [address] [place], [place] [address]Ix. Bella Jerome MYELOCYTE % Normal [facility] Comment on above: Performed By: #### C PEDRO ####[facility] [address] [place], [place] [address]Au. Bella Jerome NRBC Normal [facility] Comment on above: Performed By: #### C PEDRO ####[facility] [address] [place], [place] [address]Nf. Bella Jerome PLT 227 103/ul Normal 150-450 [facility] Comment on above: Performed By: #### C PEDRO ####[facility] [address] [place], [place] [address]Vi. Bella Jerome RBC 3.20 106/ul Critically low 4.20-5.40 [facility] Comment on above: Performed By: #### C PEDRO ####[facility] [address] [id number]. Bella Jerome RDW 12.8 % Normal 11.0-15.0 [facility] Comment on above: Performed By: #### C PEDRO ####[facility] [address] [phone]. Bella Jerome SEG # 16.05 103/ul Critically high 1.40-6.50 [facility] Comment on above: Performed By: #### C PEDRO ####[facility] [address] [id number]. Bella Jerome SEG % 75.0 % Normal 43.0-75.0 [facility] Comment on above: Performed By: #### C PEDRO ####[facility] [address] [place], [place] [address]Kv. Bella Jerome WBC 21.4 103/ul Critically high 4.0-11.0 [facility] Comment on above: Performed By: #### C PEDRO ####[facility] [address] [id number]. Bella Jerome CBC AUTO DIFFon 09-05-2022 BASO # 0.0 103/ul Normal 0.0-0.1 [facility] Comment on above: Performed By: #### C BC #### [facility] [address] [address] [address] Bella Jerome Basophils/100 WBC (Bld) 0.2 % Normal 0.2-2.0 [facility] Comment on above: Performed By: #### C BC #### [facility] [address] [address] [address] Bella Jerome EO # 0.1 103/ul Normal 0.0-0.7 [facility] Comment on above: Performed By: #### C BC #### [facility] [address] [address] [address] Bella Jerome Eosinophils/100 WBC (Bld) 0.6 % Critically low 0.9-7.0 [facility] Comment on above: Performed By: #### C BC #### [facility] [address] [address] [address] Bella Jerome Erythrocyte distribution width (RBC) [Ratio] 12.6 % Normal 11.0-15.0 [facility] Comment on above: Performed By: #### C BC #### [facility] [address] [address] [address] Bella Jerome Hematocrit (Bld) [Volume fraction] 32.5 % Critically low 36.0-48.0 [facility] Comment on above: Performed By: #### C BC #### [facility] [address] [address] [address] Bella Jerome Hemoglobin (Bld) [Mass/Vol] 11.1 g/dL Critically low 12.0-16.0 [facility] Comment on above: Performed By: #### C BC #### [facility] [address] [address] [address] Bella Jerome IG # 0.14 10e3/ul Critically high 0.00-0.03 [facility] Comment on above: Performed By: #### C BC #### [facility] [address] [address] [address] Bella Jerome IG % 1.1 % Critically high 0.0-0.5 [facility] Comment on above: Performed By: #### C BC #### [facility] [address] [place] [address] Dr. Bella Jerome LYMPH # 2.6 103/ul Normal 1.2-3.8 [facility] Comment on above: Performed By: #### C BC #### [facility] [address] [place] [address] Dr. Bella Jerome Lymphocytes/100 WBC (Bld) 20.2 % Critically low 20.5-60.0 [facility] Comment on above: Performed By: #### C BC #### [facility] [address] [place] [address] Dr. Bella Jerome MANUAL DIFF REQ NO Normal [facility] Comment on above: Performed By: #### C BC #### [facility] [address] [place] [address] Dr. Bella Jerome MCH (RBC) [Entitic mass] 32.2 pg Normal 26.7-34.0 [facility] Comment on above: Performed By: #### C BC #### [facility] [address] [place] [address] Dr. Bella Jerome MCHC (RBC) [Mass/Vol] 34.2 g/dL Normal 29.9-35.2 [facility] Comment on above: Performed By: #### C BC #### [facility] [address] [place] [address] Dr. Bella Jerome MCV (RBC) [Entitic vol] 94.2 fL Normal 81.0-99.0 [facility] Comment on above: Performed By: #### C BC #### [facility] [address] [place] [address] Dr. Bella Jerome MONO # 0.9 103/ul Critically high 0.3-0.8 [facility] Comment on above: Performed By: #### C BC #### [facility] [address] [place] [address] Dr. Bella Jerome Monocytes/100 WBC (Bld) 7.1 % Normal 1.7-12.0 [facility] Comment on above: Performed By: #### C BC #### [facility] [address] [place] [address] Dr. Bella Jerome NEUT # 8.9 103/ul Critically high 1.4-6.5 [facility] Comment on above: Performed By: #### C BC #### [facility] [address] [place] [address] Dr. Bella Jerome Neutrophils/100 WBC (Bld) 70.8 % Normal 43.0-75.0 [facility] Comment on above: Performed By: #### C BC #### [facility] [address] [place] [address] Dr. Bella Jerome Platelet mean volume (Bld) [Entitic vol] 11.0 fL Normal 9.5-13.5 [facility] Comment on above: Performed By: #### C BC #### [facility] [address] [place] [address] Dr. Bella Jerome PLT 234 103/ul Normal 150-450 [facility] Comment on above: Performed By: #### C BC #### [facility] [address] [place] [address] Dr. Bella Jerome RBC 3.45 106/ul Critically low 4.20-5.40 [facility] Comment on above: Performed By: #### C BC #### [facility] [address] [place] [address] Dr. Bella Jerome WBC 12.6 103/ul Critically high 4.0-11.0 [facility] Comment on above: Performed By: #### C BC #### [facility] [address] [place] [address] Dr. Bella Jerome Covid-19 PCR ([facility])on SARS-CoV-2 (COVID-19) RNA FAVIAN+probe Ql (Unsp spec) Not detected Normal NOT DETECTED [facility] Comment on above: Result Comment: When diagnostic [...] for this test is supported by the [place] of Health and Human Service's declaration that [...] be used). Performed By: #### C VDTBH ####[facility] [address] [place], [place] [address]Dr. Bella Jerome DRUG SCREEN RAPID (URINE)on 09-05-2022 AMP Negative Normal NEGATIVE [facility] Comment on above: Performed By: #### D RUGRPD ####[facility] [address] [place], [place] [address]Dr. Bella Jerome BAR Negative Normal NEGATIVE [facility] Comment on above: Performed By: #### D RUGRPD ####[facility] [address] [place], [place] [address]Dr. Bella Jerome BUP Negative Normal NEGATIVE [facility] Comment on above: Performed By: #### D RUGRPD ####[facility] [address] [place], [place] [address]Dr. Bella Jerome BZO Negative Normal NEGATIVE [facility] Comment on above: Performed By: #### D RUGRPD ####[facility] [address] [place], [place] [address]Dr. Belal Jerome NGA Negative Normal NEGATIVE [facility] Comment on above: Performed By: #### D RUGRPD ####[facility] [address] [place], [place] [address]Dr. Bella Jerome CUT-OFFS SEE BELOW Normal [facility] Comment on above: Result Comment: AMP (Amphetamine): 500ng/mL, BAR (Barbituates): 200 ng/mL, BZO (Benzodiazepines): 150 ng/mL, BUP (Buprenorphine): 10 ng/mL, NGA (Cocaine): 150 ng/mL, mAMP (Methamphetamine): 500 ng/mL, MTD (Methadone): 200 ng/mL, OPI (Opiates): 100 ng/mL, OXY (Oxycodone): 100 ng/mL, PCP (Phencyclidine): 25 ng/mL, PPX (Propoxyphene): 300 ng/mL, THC (Cannabinoids): 50 ng/mL, TCA (Trycyclic Antidepressants): 300 ng/mL Performed By: #### D RUGRPD ####[facility] [address] [place], [place] [address]Dr. Bella [facility] DRUG CUT HEADER DRUG CLASS TEST SYSTEM CUT-OFF CONCENTRATIONS ARE FOLLOWS: Normal [facility] Comment on above: Performed By: #### D RUGRPD ####[facility] [address] [place], [place] [address]Dr. Liwally Jerome mAMP Negative Normal NEGATIVE [facility] Comment on above: Performed By: #### D RUGRPD ####[facility] [address] [place], [place] [address]Dr. Bella Jerome MTD Negative Normal NEGATIVE [facility] Comment on above: Performed By: #### D RUGRPD ####[facility] [address] [place], [place] [address]Dr. Liwally Jerome OPI Negative Normal NEGATIVE [facility] Comment on above: Performed By: #### D RUGRPD ####[facility] [address] [place], [place] [address]Dr. Bella Jerome OXY Negative Normal NEGATIVE [facility] Comment on above: Performed By: #### D RUGRPD ####[facility] U[address] [place], [place] [address]Dr. Bella Jerome PCP Negative Normal NEGATIVE [facility] Comment on above: Performed By: #### D RUGRPD ####[facility] [address]mp[address] [place], [place] [address]Dr. Bella Jerome PPX Negative Normal NEGATIVE [facility] Comment on above: Performed By: #### D RUGRPD ####[facility] [address] [place], [place] [address]Dr. Bella Jerome TCA Negative Normal NEGATIVE [facility] Comment on above: Performed By: #### D RUGRPD ####[facility] [address] [place], [place] [address]Lr. Bella Jerome THC Negative Normal NEGATIVE [facility] Comment on above: Performed By: #### D RUGRPD ####[facility] [address] [place], [place] [address]Vc. Bella Jerome TYPE AND SCREENon 09-05-2022 TYPE AND SCREEN Negative Normal [facility] Comment on above: Performed By: #### T NS ####[facility] [address] [id number]. Bella Jerome US PREG BIOPHY W NON [...] MANUELITO GREGG Date: 2022-08-31 17:06 Normal [facility] US PREG GROWTHon 08-30-2022 US PREG GROWTH [...] by: MANUELITO GREGG Date: 2022-08-30 17:59 Normal [facility] US PREG BIOPHY W NON STRESSo [...] by: MANUELITO GREGG Date: 2022-08-24 17:10 Normal [facility] FREE T4on 08-21-2022 Free T4 [Mass/Vol] 0.90 ng/dL Normal 0.76-1.46 [facility] Comment on above: Performed By: #### C BC #### [facility] [address] [place] [address] Dr. Bella Jerome TSHon 08-21-2022 TSH 1.033 uIU/mL Normal 0.358-3.740 [facility] Comment on above: Performed By: #### H H #### [facility] [address] [place] [address] Dr. Bella Jerome US PREG BIOPHY W [...] by: MANUELITO GREGG Date: 2022-08-17 18:33 Normal [facility] GROUP B STREP CULTUREon 07-28 S. agalactiae Ag Ql (Unsp spec) Culture Observations: NEGATIVE FOR GROUP B STREPTOCOCCUS. Normal [facility] Comment on above: Performed By: #### G BSCX ####[facility] [address] [place], [place] [address]Cc. Bella Jerome US PREG BIOPHY W NON [...] MANUELITO GREGG Date: 2022-08-10 16:36 Normal [facility] US PREG GROWTHon 08-10-2022 US PREG GROWTH [...] MANUELITO GREGG Date: 2022-08-10 16:37 Normal [facility] US PREG GROWTHon 07-25-2022 US PREG GROWTH [...] MANUELITO GREGG Date: 2022-07-25 18:18 Normal [facility] FREE T4on 07-24-2022 Free T4 [Mass/Vol] 0.98 ng/dL Normal 0.76-1.46 [facility] Comment on above: Performed By: #### F T4 #### [facility] [address] [place], [place] [address] Dr. Bella Jerome TSHon 07-24-2022 TSH 1.196 uIU/mL Normal 0.358-3.740 [facility] Comment on above: Performed By: #### T SH ####[facility] [address] [place], [place] [address]EgDr. Bella Jerome UA (CLEAN/CATCH) SHIFT ENGINEER/MICRO I F IND.on 07-20-2022 Bilirubin Ql (U) Negative Normal NEGATIVE [facility] Comment on above: Performed By: #### H H #### [facility] [address] [address] [address] Bella Jerome Clarity (U) CLEAR Normal CLEAR [facility] Comment on above: Performed By: #### H H #### [facility] [address] [place] [address] Dr. Bella Jerome Color (U) LT. YELLOW Normal YELLOW [facility] Comment on above: Performed By: #### H H #### [facility] [address] [address] [address] Bella Jerome Glucose Ql (U) Negative Normal NEGATIVE [facility] Comment on above: Performed By: #### H H #### [facility] [address] [place] [address] Dr. Bella Jerome Hemoglobin Ql (U) Negative Normal NEGATIVE [facility] Comment on above: Performed By: #### H H #### [facility] [address] [address] [address] Bella Jerome Ketones Ql (U) Negative Normal NEGATIVE [facility] Comment on above: Performed By: #### H H #### [facility] [address] [place] [address] Dr. Bella Jerome LEUKOCYTES Negative Normal NEGATIVE [facility] Comment on above: Performed By: #### H H #### [facility] [address] [place] [address] Dr. Bella Jerome Nitrite Ql (U) Negative Normal NEGATIVE [facility] Comment on above: Performed By: #### H H #### [facility] [address] [place] [address] Dr. Bella Jerome pH (U) 7.0 [pH] Normal 5-9 [facility] Comment on above: Performed By: #### H H #### [facility] [address] [place] [address] Dr. Bella Jerome SPEC GRAVITY <=1.005 Abnormal 1.005-<=1.025 [facility] Comment on above: Performed By: #### H H #### [facility] [address] [address] [address] Bella Jerome UA PROTEIN Negative Normal NEGATIVE/ TRACE [facility] Comment on above: Performed By: #### H H #### [facility] [address] [place] [address] Dr. Bella Jerome UR MICRO IND NOT INDICATED Normal [facility] Comment on above: Performed By: #### H H #### [facility] [address] [place] [address] Dr. Bella Jerome Urobilinogen Qn (U) 0.2 {Kimberlee'U}/dL Normal 0.2 - 1. 0 [facility] Comment on above: Performed By: #### H H #### [facility] [address] [place] [address] Dr. Bella Jerome US PREG GROWTHon 06-27-2022 [...] RAGINI SANTOS Date: 2022-06-27 16:23 Normal [facility] FREE T4on 06-20-2022 Free T4 [Mass/Vol] 0.82 ng/dL Normal 0.76-1.46 [facility] Comment on above: Performed By: #### H H #### [facility] [address] [place] [address] Dr. eBlla Jerome GLUCOSE - 1HRon 06-20-2022 Glucose [Mass/Vol] 127 mg/dL Critically high 74-106 T [facility] Comment on above: Performed By: #### H H #### [facility] [address] [address] [address] Bella Jerome HEMOGRAM AND PLATELon 2021 Hematocrit (Bld) [Volume fraction] 32.4 % Critically low 36.0-48.0 [facility] Comment on above: Performed By: #### H H #### [facility] [address] [address] [address] Bella Jerome Hemoglobin (Bld) [Mass/Vol] 10.9 g/dL Critically low 12.0-16.0 [facility] Comment on above: Performed By: #### H H #### [facility] [address] [place] [address] Dr. Bella Jerome MCH (RBC) [Entitic mass] 32.9 pg Normal 26.7-34.0 [facility] Comment on above: Performed By: #### H H #### [facility] [address] [place] [address] Dr. Bella Jerome MCHC (RBC) [Mass/Vol] 33.6 g/dL Normal 29.9-35.2 [facility] Comment on above: Performed By: #### H H #### [facility] [address] [place] [address] Dr. Bella Jerome MCV (RBC) [Entitic vol] 97.9 fL Normal 81.0-99.0 [facility] Comment on above: Performed By: #### H H #### [facility] [address] [place] [address] Dr. Bella Jerome PLT 241 103/ul Normal 150-450 [facility] Comment on above: Performed By: #### H H #### [facility] [address] [address] [address] Bella Jerome RBC 3.31 106/ul Critically low 4.20-5.40 [facility] Comment on above: Performed By: #### H H #### [facility] [address] [place], [place] [address] Dr. Bella Jerome WBC 11.3 103/ul Critically high 4.0-11.0 [facility] Comment on above: Performed By: #### H H #### [facility] [address] [place], [place] [address] Dr. Bella Jerome TSHon 06-20-2022 TSH 3.044 uIU/mL Normal 0.358-3.740 [facility] Comment on above: Performed By: #### C BC #### [facility] [address] [place], [place] [address] Dr. Bella Jerome US PREG INCOMPLETE ANATOMYon 05-24-2022 US PREG INCOMPLETE ANATOMY EXAMINATION: US PREG INCOMPLETE ANATOMY HISTORY: screening COMPARISON: Ultrasound anatomy 04/26/2022 FINDINGS: Presentation: Cephalic Heart rate: 154 bpm Anatomy: Cervical, thoracic, and lumbar spine HERNANDO: 09/13/2022 IMPRESSION: 1. Adequate visualization of the cervical, thoracic, and lumbar spine; no appreciable abnormality. Electronically authenticated by: RAGINI SANTOS Date: 2022-05-24 17:33 Normal [facility] US PREG ANATOMY SINGLEon US PREG [...] by: MANUELITO GREGG Date: 2022-04-26 16:54 Normal [facility] CHLAMYDIA/GONOCOCCUS FAVIAN ( AB/URINE/PAPon 04-19-2022 Chlamydia trachomatis, FAVIAN Negative Normal Negative [facility] Comment on above: Performed By: #### C T/NGNA ####[facility] [id number] [address]Dr. Bella Jerome Neisseria gonorrhoeae, FAVIAN Negative Normal Negative [facility] Comment on above: Performed By: #### C T/NGNA ####[facility] [address] [address]Dr. Bella Jerome VAGINITIS/VAGINOSIS DNA PROB Leonid 04-18-2022 Jessica species Negative Normal Negative [facility] Comment on above: Performed By: #### H H #### [facility] [address] [address] [address] Bella Jerome Gardnerella vaginalis Negative Normal Negative [facility] Comment on above: Performed By: #### H H #### [facility] [address] [address] [address] Bella Jerome Trichomonas vaginalis Negative Normal Negative [facility] Comment on above: Performed By: #### H H #### [facility] [address] [address] [address] Bella Jerome FREE T4on 04-05-2022 Free T4 [Mass/Vol] 0.88 ng/dL Normal 0.76-1.46 [facility] Comment on above: Performed By: #### F T4 #### [facility] [address] [place] [address] Dr. Bella Jerome TSHon 04-05-2022 TSH 1.786 uIU/mL Normal 0.358-3.740 [facility] Comment on above: Performed By: #### T SH ####[facility] [address] [address]Dr. Bella Jerome TSH RANGE SEE BELOW Normal [facility] Comment on above: Result Comment: <0.3 4 UIU/ml HYPERTHYROID 0.34-5.60 UIU/ml EUTHYROID >5.60 UIU/ml HYPOTHYROID Performed By: #### T SH ####[facility] [address] [place], [place] [address]Dr. Bella Jerome FREE T4on 02-26-2022 Free T4 [Mass/Vol] 1.06 ng/dL Normal 0.76-1.46 [facility] Comment on above: Performed By: #### C BC #### [facility] [address] [place] [address] Dr. Bella Jerome TSHon 02-26-2022 TSH 2.024 uIU/mL Normal 0.470-4.680 [facility] Comment on above: Performed By: #### C BC #### [facility] [address] [place] [address] Dr. Bella Jerome TSH RANGE SEE BELOW Normal [facility] Comment on above: Result Comment: <0.3 4 UIU/ml HYPERTHYROID 0.34-5.60 UIU/ml EUTHYROID >5.60 UIU/ml HYPOTHYROID Performed By: #### C BC #### [facility] [address] [place] [address] Dr. Bella Jerome Vital Signs Date Time Vital Sign Value Performing Clinician Facility 02-13-2024 11:24-0400 Body height 160.02 cm [facility] 02-13-2024 11:24-0400 Body mass index (BMI) [Ratio] 42.3 kg/m2 [facility] 02-13-2024 11:24040 Body weight 108.49 kg [facility] 02-13-2024 11:24-0400 Diastolic blood pressure 70 mm[Hg] [facility] 02-13-2024 11:24-0400 Heart rate 69 /min [facility] 02-13-2024 11:24-0400 Respiratory rate 18 /min [facility] 02-13-2024 11:24-0400 SaO2% (BldA) [Mass fraction] 98 % [facility] 02-13-2024 11:24-0400 Systolic blood pressure 118 mm[Hg] [facility] 10-31-2023 15:00-0500 Body height 160.02 cm Sandra Austin Other [facility] Other 10-31-2023 15:00-0500 Body mass index (BMI) [Ratio] 45.41 kg/m2 Sandra Austin Other [facility] Other 10-31-2023 15:00-0500 Body temperature 98.5 [degF] Sandra Austin Other [facility] Other 10-31-2023 15:00-0500 Body weight 116.3 kg Sandra Austin Other [facility] Other 10-31-2023 15:00-0500 Diastolic blood pressure 80 mm[Hg] Sandra Austin Other [facility] Other 10-31-2023 15:00-0500 Respiratory rate 18 /min Sandra Austin Other [facility] Other 10-31-2023 15:00-0500 SaO2% (BldA) [Mass fraction] 98 % Sandra Austin Other [facility] Other 10-31-2023 15:00-0500 Systolic blood pressure 128 mm[Hg] Sandra Austin Other [facility] Other 06-24-2023 14:30-0400 Body height 160.02 cm Sandra Geovanna Other [facility] Other 06-24-2023 14:30-0400 Body mass index (BMI) [Ratio] 44.87 kg/m2 Sandra Austin Other [facility] Other 06-24-2023 14:30-0400 Body weight 114.9 kg Sandra Geovanna Other [facility] Other 06-24-2023 14:30-0400 Diastolic blood pressure 60 mm[Hg] Sandra Austin Other [facility] Other 06-24-2023 14:30-0400 Respiratory rate 18 /min Sandra Geovanna Other [facility] Other 06-24-2023 14:30-0400 SaO2% (BldA) [Mass fraction] 99 % Sandraluca Austin Other [facility] Other 06-24-2023 14:30-0400 Systolic blood pressure 110 mm[Hg] Sandra Austin Other [facility] Other 04-15-2023 09:25-0400 Body height 160.02 cm Ramonita Greenberg Other [facility] Other 04-15-2023 09:25-0400 Body mass index (BMI) [Ratio] 41.8 kg/m2 Ramonita Greenberg Other [facility] Other 04-15-2023 09:25-0400 Body temperature 98.5 [degF] Ramonita Greenberg Other [facility] Other 04-15-2023 09:25-0400 Body weight 107.05 kg Ramonita Greenberg Other [facility] Other 04-15-2023 09:25-0400 Respiratory rate 18 /min Ramonita Greenberg Other [facility] Other 04-15-2023 09:25-0400 SaO2% (BldA) [Mass fraction] 97 % Ramonita Greenberg Other [facility] Other 02-21-2023 14:45-0400 Body height 160.02 cm Sandra Austin Other [facility] Other 02-21-2023 14:45-0400 Body mass index (BMI) [Ratio] 41.39 kg/m2 Sandra Austin Other [facility] Other 02-21-2023 14:45-0400 Body weight 106.01 kg Sandra Austin Other [facility] Other 02-21-2023 14:45-0400 Diastolic blood pressure 60 mm[Hg] Sandra Austin Other [facility] Other 02-21-2023 14:45-0400 Respiratory rate 18 /min Sandra Austin Other [facility] Other 02-21-2023 14:45-0400 SaO2% (BldA) [Mass fraction] 98 % Sandra Austin Other [facility] Other 02-21-2023 14:45-0400 Systolic blood pressure 110 mm[Hg] Sandra Austin Other [facility] Other 12-24-2022 14:30-0500 Body height 160.02 cm Sandra Austin Other [facility] Other 12-24-2022 14:30-0500 Body mass index (BMI) [Ratio] 40.83 kg/m2 Sandra Austin Other [facility] Other 12-24-2022 14:30-0500 Body weight 104.55 kg Sandra Austin Other [facility] Other 12-24-2022 14:30-0500 Diastolic blood pressure 70 mm[Hg] Sandra Austin Other [facility] Other 12-24-2022 14:30-0500 Respiratory rate 18 /min Sandra Austin Other [facility] Other 12-24-2022 14:30-0500 SaO2% (BldA) [Mass fraction] 99 % Sandra Austin Other [facility] Other 12-24-2022 14:30-0500 Systolic blood pressure 118 mm[Hg] Sandra Austin Other [facility] Other 12-21-2021 16:30-0500 Body height 160.02 cm Sandra Austin Other [facility] Other 12-21-2021 16:30-0500 Body mass index (BMI) [Ratio] 38.58 kg/m2 Sandra Austin Other [facility] Other 12-21-2021 16:30-0500 Body temperature 97.3 [degF] Sandra Austin Other [facility] Other 12-21-2021 16:30-0500 Body weight 98.79 kg Sandra Austin Other [facility] Other 12-21-2021 16:30-0500 Diastolic blood pressure 60 mm[Hg] Sandra Austin Other [facility] Other 12-21-2021 16:30-0500 Respiratory rate 18 /min Sandra Austin Other [facility] Other 12-21-2021 16:30-0500 SaO2% (BldA) [Mass fraction] 99 % Sandraluca Austin Other [facility] Other 12-21-2021 16:30-0500 Systolic blood pressure 118 mm[Hg] Sandra Austin Other [facility] Other Encounters Encounter Date Encounter Type Care Provider Facility Start: 02-14-2024 End: 02-14-2024 ambulatory AGUS HANSA Not Available Start: 02-13-2024 End: 02-13-2024 ambulatory [facility] Work Phone: Start: 02-13-2024 End: 02-13-2024 Patient encounter procedure [facility] Work Phone: Start: 12-16-2023 End: 12-16-2023 ambulatory AGUS HANSA Not Available Start: 12-16-2023 Non-patient / Non-visit [facility] Work Phone: Start: 10-31-2023 End: 10-31-2023 ambulatory Sandra Geovanna Other [facility] Other Start: 10-31-2023 Office outpatient vi sit 25 minutes Sandra Austin [facility] Start: 07-19-2023 End: 07-19-2023 ambulatory Sandra Geovanna Other [facility] Other Start: 07-19-2023 Telephone encounter Sandra Austin [facility] Start: 06-24-2023 End: 06-24-2023 ambulatory Sandra Geovanna Other [facility] Other Start: 06-24-2023 Office outpatient vi sit 25 minutes Sandra Austin [facility] Start: 06-04-2023 End: 06-04-2023 ambulatory Sandra Geovanna Other [facility] Other Start: 06-04-2023 Telephone encounter Sandra [facility] Start: 04-15-2023 End: 04-15-2023 ambulatory Ramonitabrad Greenberg Other [facility] Other Start: 04-15-2023 Office outpatient vi sit 15 minutes Ramonita Yari [facility] Start: 04-11-2023 End: 04-11-2023 ambulatory Sandra Geovanna Other [facility] Other Start: 04-11-2023 Telephone encounter Sandra Geovanna [facility] Start: 02-21-2023 Office outpatient vi sit 25 minutes Sandra Austin [facility] [place] Start: 02-21-2023 End: 02-22-2023 ambulatory SANDRA AUSTIN [facility] Other Start: 01-04-2023 End: 01-04-2023 ambulatory Sandra Austin Other [facility] Other Start: 01-04-2023 Telephone encounter Sandra Guevara [facility] Start: 12-30-2022 Encounter for genera l adult medical examination without abnormal findings SANDRA AUSTIN [facility] Start: 12-27-2022 End: 12-27-2022 ambulatory Sandra Austin Other [facility] Other Start: 12-27-2022 Telephone encounter Sandra [facility]a [facility] Start: 12-26-2022 End: 12-27-2022 ambulatory SANDRA AUSTIN Facility:[facility] Start: 12-26-2022 End: 12-27-2022 Encounter for general adult medical examination without abnormal findings SANDRA AUSTIN Facility:[facility] Start: 12-24-2022 End: 12-24-2022 ambulatory Sandra Austin Other [facility] Other Start: 12-24-2022 Encounter for genera l adult medical examination without abnormal findings Sandra Austin [facility] Start: 12-24-2022 Periodic preventive med est patient 18-39 yrs Sandra Austin [facility] Start: 12-10-2022 End: 12-10-[address] AGUS [...] Facility:[facility] Start: 08-24-2022 End: 08-24-2022 ambulatory SANDRA KAPLE Facility:[facility] Start: 08-21-2022 End: 08-22-2022 ambulatory SANDRA KAPLE Facility:[facility] Start: 08-17-2022 End: 08-17-2022 ambulatory VIRGINIA TORRES Facility:[facility] Start: 08-15-2022 End: 08-15-[address] AGUS SANTO . Facility:[facility] Start: 08-10-2022 End: 08-10-2022 ambulatory SANDRA KAPLE Facility:[facility] Start: 07-25-2022 End: 07-26-2022 ambulatory SANDRA [...] Facility:[facility] Start: 12-21-2021 End: 12-21-2021 ambulatory Sandra Kaple Other [facility] Other Start: 12-21-2021 Office outpatient ne w 45 minutes Sandra Austin [facility] [place] Procedures Date Procedure Procedure Detail Performing Clinician [...] Patient Education Low back pain in adults [facility] Work Phone: Payers Date Payer Category Payer Unknown [id number] 2. [id number] 1997 Unknown [id number] 2.16.84 0.1.125075.3.579.2.593 1997 Unknown [id number] 2.16.84 0.1.745442.3.579.2.593 1997 Unknown [id number] 2.16.84 0.1.840388.3.579.2.593 1997 Unknown [id number] 2.16.84 0.1.342984.3.579.2.593 1997 Unknown [id number] 2.16.84 0.1.592539.3.579.2.593 1997 Unknown [id number] 2.16.84 0.1.735828.3.579.2.593 1997 Unknown [id number] 2.16.84 0.1.862078.3.579.2.593 1997 Unknown [id number] 2.16.84 0.1.233340.3.579.2.593 1997 Unknown [id number] 2.16.84 0.1.755934.3.579.2.593 1997 Unknown [id number] 2.16.84 0.1.270187.3.579.2.593 1997 Unknown [id number] 2.16.84 0.1.464994.3.579.2.593 1997 Unknown [id number] 2.16.84 0.1.441207.3.579.2.593 1997 Unknown [id number] 2.16.84 0.1.304031.3.579.2.593 1997 Unknown [id number] 2.16.84 0.1.296979.3.579.2.593 1997 Unknown [id number] 2.16.84 0.1.169417.3.579.2.593 1997 Unknown [id number] 2.16.84 0.1.862717.3.579.2.593 1997 Unknown [id number] 2.16.84 0.1.294273.3.579.2.593 1997 Unknown [id number] 2.16.84 0.1.793510.3.579.2.593 1997 Unknown [id number] 2.16.84 0.1.912884.3.579.2.593 1997 Unknown [id number] 2.16.84 0.1.865698.3.579.2.593 1997 Unknown [id number] 2.16.84 0.1.492970.3.579.2.593 1997 Unknown [id number] 2.16.84 0.1.985863.3.579.2.593 1997 Unknown [id number] 2.16.84 0.1.269197.3.579.2.593 1997 Unknown [id number] 2.16.84 0.1.612972.3.579.2.1259 1997 Unknown [id number] 2.16.84 0.1.029446.3.579.2.1259 1957 Medicaid [id number] . .[id number] 1959 Private Health Insurance [id number] Self-pay Self Pay [id number] Unknown [place] [id number] Social History Date Type Detail Facility Sex Assigned At [facility] Other Start: 1995 Sex Assigned At Female F [facility] Clinical Notes 12-21-2021 to 10-31-2023 Note Date [...] E28.2) She will continue to follow with OB-GEOCHEMICAL MANAGER and continue healthy lifestyle changes that she [...] course of antibiotic. Increase fluids and rest. [id number] antipyretics as needed. Warning signs and symptoms reviewed with patient today. Patient to go immediately to the ER should she experience any of these. Patient to notify office should her symptoms persist and not improve. Patient verbalizes understanding and agrees to treatment plan. [facility] Other 09-22-2023 Evaluation note* Encounter Date Diagnosis Assessment Notes Treatment Notes Treatment Clinical Notes Jun, Vitamin D insufficiency (ICD-10 - E55.9) [facility] Other 08-28-2023 Evaluation note* Encounter Date Diagnosis [...] E28.2) She will continue to follow with OB-GEOCHEMICAL MANAGER and continue healthy lifestyle changes that she [...] ENT today. Specialty notes reviewed as received. [facility] Other 08-08-2023 Evaluation note* Encounter Date Diagnosis Assessment Notes Treatment Notes Treatment Clinical Notes May, Other atopic dermatitis (ICD-10 - L20.89) May, Acute otitis externa of both ears, unspecified type (ICD-10 - H60.503) [facility] Other 06-19-2023 Evaluation note* Encounter Date Diagnosis [...] no improvement in 2 to 3 days [facility] Other 06-15-2023 Evaluation note* Encounter Date Diagnosis Assessment Notes Treatment Notes Treatment Clinical Notes Mar, Anxiety (ICD-10 - F41.9) [facility] Other 04-27-2023 Evaluation note* Encounter Date Diagnosis [...] plan on rechecking this at May appointment. [facility] Other 03-10-2023 Evaluation note* Encounter Date Diagnosis Assessment Notes Treatment Notes Treatment Clinical Notes Dec, Bacterial conjunctivitis (ICD-10 - H10.9) [facility] Other 03-02-2023 Evaluation note* Encounter Date Diagnosis Assessment Notes Treatment Notes Treatment Clinical Notes Dec, Vitamin D insufficiency (ICD-10 - E55.9) Dec, Elevated alkaline phosphatase level (ICD-10 - R74.8) Dec, Other specified hypothyroidism (ICD-10 - E03.8) [facility] Other 02-27-2023 Evaluation note* Encounter Date Diagnosis [...] ordered. Follow routinely with eye doctor, dentist, GEOCHEMICAL MANAGER. Patient is advised to work on healthy diet choices and appropriate servings, weight control, regular exercise as directed, reduced fat intake, and salt avoidance. Patient voiced understanding of this and agrees to this plan. Nov, PCOS (polycystic ovarian syndrome) (ICD-10 - E28.2) Routine lab work ordered. She will continue to follow with OB-GEOCHEMICAL MANAGER and continue healthy lifestyle changes that she [...] homicidal ideations. Started on Celexa by her GEOCHEMICAL MANAGER. Very stable on Celexa 20 mg daily. Our office will take this over. Nov, Severe obesity (BMI >= 40) (ICD-10 - E66.01) Patient is advised to work on healthy diet choices and appropriate servings, weight control, regular exercise as directed, reduced fat intake, and salt avoidance. Patient voiced understanding of this and agrees to this plan. Nov, Other She will uti lize Flonase OTC for small effusions to her ears bilaterally. She will notify office should pressure in her ears still persist after starting this. [facility] Other 02-24-2022 Evaluation note* Encounter Date Diagnosis Assessment Notes Treatment Notes Treatment Clinical Notes Nov, Prediabetes (ICD-10 - R73.03) She was recently dx with prediabetes and was started on Metformin 500 mg BID 2 weeks ago by her OB-GEOCHEMICAL MANAGER. She would like to follow with our [...] - E28.2) She is following with her OB-GEOCHEMICAL MANAGER for her PCOS and is currently on Metformin 500 mg BID and is taking medication to help her get . She will continue to follow with OB-GEOCHEMICAL MANAGER and continue healthy lifestyle changes that she [...] of fatigue, difficulty losing weight by her OB-GEOCHEMICAL MANAGER. She would like to start following with [...] of this and agrees to this plan. [facility] Other Evaluation note* Diagnosis Onset Date Resolution Status 8 weeks gestation of acute Low back pain [facility] Work Phone: History general Narrative - Reported* Type Description Date Medical History PCOS Medical History THYROID ISSUES Surgical History THIRD NIPPLE REMOVED Surgical History Colonoscopy-normal 2018 [facility] Other Summary Purpose Family History No Family History Records Found Relationship Condition Age at Onset Recorded Date/T jordon father Diabetes mellitus Unknown Hypertension Unknown Not Specified Heart disease Unknown Advance Directives No Advanced Directives Records Found Advance Directive Response Recorded Date/ Time Advance Directives No September 2:40pm Reason for Referral Reason Refer to Dr. Adi orozco for right ear itching and pain; not relieve with many treatments Diagnosis 1 Right ear pain (H92. 01) Referral Organization [facility] Referring Provider First Name Sandra Referring Provider Last Name Geovanna Referring Provider Specialty Nurse Pract itionelupis Referred Provider Specialty Ear, Nose an d Throat Referral Priority Routine Chief Complaint and Reason for Visit Chief Complaint lower back pain Reason for Visit 8 weeks gestation of Low back pain Additional Source Comments REASON FOR VISIT (unrecogniz ed section and content) EST CARE1 year Follow up, hg gq0hnpd resultspink eyepossible mastitisstrep throatanxietyear gtts6 month Follow uprefill4 month Follow up, hgba1c INFORMATION SOURCE (unrecogn ized section and content) DATE CREATED AUTHOR 02/25/2023 [facility] DATE CREATED AUTHOR AUTHOR'S ORGANIZ ATION 02/15/2024 [facility] [employer] Care Teams (unrecognized [...] BE BASED ON THE PRIMARY CLINICAL RECORDS. [facility] [employer] provides no warranty or guarantee of the accuracy or completeness of information in this document.
[2024-02-19 16:13] LABS: Basophils Percent Auto 0.3 % (0.2-2.0); Eosinophils Absolute Auto 0.1 10^3/uL (0.0-0.7); Eosinophils Percent Auto 0.8 % (0.9-7.0); Hematocrit 37.3 % (36.0-48.0); Hemoglobin 12.2 g/dL (12.0-16.0); Immature Granulocytes Abs Auto 0.04 10^3/uL (0.00-0.03); Immature Granulocytes Pct Auto 0.4 % (0.0-0.5); Lymphocytes Absolute Auto 3.6 10^3/uL (1.2-3.8); Lymphocytes Percent Auto 31.3 % (20.5-60.0); Mean Corpuscular HGB Conc 32.7 g/dL (29.9-35.2); Mean Corpuscular Hemoglobin 30.3 pg (26.7-34.0); Mean Corpuscular Volume 92.6 fL (81.0-99.0); Mean Platelet Volume 11.5 fL (9.5-13.5); Monocytes Absolute Auto 0.5 10^3/uL (0.3-0.8); Monocytes Percent Auto 4.6 % (1.7-12.0); Neutrophils Absolute Auto 7.2 10^3/uL (1.4-6.5); Neutrophils Percent Auto 62.6 % (43.0-75.0); Platelet Count 262 10^3/uL (150-450); Red Blood Count 4.03 10^6/uL (4.20-5.40); White Blood Count 11.4 10^3/uL (4.0-11.0)
[2024-02-19 16:16] LABS: Estimated Average Glucose 108 mg/dL; Glycohemoglobin A1C 5.4 % (4.5-6.2)
[2024-02-21 06:13] LABS: HBsAg Screen Negative (Negative)
[2024-02-21 07:12] LABS: HIV Ab/p24 Ag Screen Non Reactive (Non Reactive)
[2024-02-21 08:12] LABS: HCV Ab Non Reactive (Non Reactive)
[2024-02-21 09:10] LABS: Rubella Antibodies, IgG 3.47 index (Immune >0.99)
[2024-02-21 13:08] LABS: Rapid Plasma Reagin, Quant Non Reactive titer (NonRea<1:1)
== END 2024-02-19 15:20 | disposition home or self-care (01) ==
LOC: LAB 15:19
PROVIDERS: PCP Nurse Practitioner Family; Visit Provider Obstetrics & Gynecology
DX: N92.6 Irregular menstruation, unspecified (principal)
CPT/HCPCS: 36415; 83036; 85025; 86592; 86762; 86803; 86850; 86900; 86901; 87086; 87340; 87389

== ENCOUNTER 2024-02-24 09:53 | Outpatient (RCR) | payer OTHER, SELFPAY | END 2024-03-26 16:52 | disposition home or self-care (01) | LOC: PT 09:53 | PROVIDERS: PCP Nurse Practitioner Family; Visit Provider Nurse Practitioner Family | DX: M54.50 Low back pain, unspecified (principal) | CPT/HCPCS: 97110; 97112; 97113; 97162 ==

== ENCOUNTER 2024-03-16 14:18 | Outpatient (OUT) | payer OTHER, SELFPAY ==
--- NOTE | 2024-03-16 14:23 | US_ITS ---
[place] [id number] Patient Name: SOFIA ZEPEDA MRN: [id number] date: 1995 Sex: F Assigned Patient Location: US Current Patient Location: US Accession/Order Number: [id number] Exam Date: 03/16/2024 14:25 Report Date: 03/16/2024 15:31 At the request of: AGUS SANTO Procedure: US OB <= 14 weeks fetus EXAMINATION: US OB <= 14 weeks fetus HISTORY: with uncertain viability [id number] COMPARISON: Ultrasound OB transvaginal 02/14/2024 FINDINGS: GESTATIONAL SAC: Present and normal appearing. YOLK SAC: Absent POLE: Present and normal appearing. CARDIAC: 153 bpm UTERUS: Normal size and appearance. OVARIES: Right: Normal. Left: Normal. CERVIX: 5.9 cm in length and closed. CUL-DE-SAC: Normal. OTHER: None. AGE BY LMP: 12 weeks 3 days HERNANDO BY LMP: 09/25/2024 AGE BY US CRL: 12 weeks 6 days HERNANDO BY US CRL: 09/22/2024 US/US OB <= 14 weeks fetus IMPRESSION: 1. Single live intrauterine 12 weeks 6 days by today's ultrasound. 2. No suspicious findings. Electronically authenticated by: RAGINI SANTOS Date: 03/16/2024 15:31
== END 2024-03-16 14:19 | disposition home or self-care (01) ==
LOC: US 14:19
PROVIDERS: PCP Nurse Practitioner Family; Visit Provider Obstetrics & Gynecology
DX: O36.60X0 Maternal care for excessive fetal growth, unspecified trimester, not applicable or unspecified (principal); Z3A.12 12 weeks gestation of pregnancy
CPT/HCPCS: 76801

== ENCOUNTER 2024-03-18 14:58 | Outpatient (OUT) | payer OTHER, SELFPAY | END 2024-03-18 14:59 | disposition home or self-care (01) | LOC: LAB 15:01 | PROVIDERS: PCP Nurse Practitioner Family; Visit Provider Obstetrics & Gynecology | DX: O99.280 Endocrine, nutritional and metabolic diseases complicating pregnancy, unspecified trimester (principal); E07.9 Disorder of thyroid, unspecified | CPT/HCPCS: 36415; 84443 ==

== ENCOUNTER 2024-04-14 15:15 | Outpatient (OUT) | payer OTHER, SELFPAY ==
[2024-04-14 15:48] LABS: Thyroid Stimulating Hormone 1.912 uIU/mL (0.358-3.740)
== END 2024-04-14 15:16 | disposition home or self-care (01) ==
LOC: LAB 15:15
PROVIDERS: PCP Nurse Practitioner Family; Visit Provider Obstetrics & Gynecology
DX: O99.280 Endocrine, nutritional and metabolic diseases complicating pregnancy, unspecified trimester (principal); E07.9 Disorder of thyroid, unspecified
CPT/HCPCS: 36415; 84443

== ENCOUNTER 2024-05-06 15:38 | Outpatient (OUT) | payer OTHER, SELFPAY ==
[2024-05-06 16:56] LABS: Thyroid Stimulating Hormone 1.953 uIU/mL (0.358-3.740)
== END 2024-05-06 15:39 | disposition home or self-care (01) ==
LOC: LAB 15:39
PROVIDERS: PCP Nurse Practitioner Family; Visit Provider Obstetrics & Gynecology
DX: O99.280 Endocrine, nutritional and metabolic diseases complicating pregnancy, unspecified trimester (principal); E07.9 Disorder of thyroid, unspecified; Z3A.00 Weeks of gestation of pregnancy not specified
CPT/HCPCS: 36415; 84443

== ENCOUNTER 2024-05-12 08:29 | Outpatient (OUT) | payer OTHER, SELFPAY ==
--- NOTE | 2024-05-12 08:32 | US_ITS ---
[address] [address] Patient Name: SOFIA ZEPEDA MRN: [id number] date: 1995 Sex: F Assigned Patient [facility]: [facility] Current [facility] Accession/Order Number: [id number] Exam Date: 05/12/2024 08:32 Report Date: 05/12/2024 09:42 At the request of: AGUS SANTO Procedure: US OB cervical length EXAMINATION: US OB cervical length, US OB anatomy HISTORY: CERVICAL LENGTH COMPARISON: No relevant comparison available. FINDINGS: Heart Rate: 146 bpm Amniotic Fluid Volume: Subjectively normal Placenta: Posterior. The placental edge is 3.7 cm from the internal os Cervix: 4.6 cm, closed Number: 1 Normal anatomy: Lateral ventricles, cerebellum, posterior fossa, nose, lips, orbits, four-chamber heart, RVOT, LVOT, diaphragm, stomach, kidneys, abdominal cord insertion, bladder, umbilical arteries, three-vessel cord, spine, extremities Position: VARIABLE BIOMETRY: BPD: 4.71 cm cm; 20 weeks 2 days; 35.30 %% HC: 17.72 cm cm; 20 weeks 1 day; 25 %% AC: 15.40 cm cm; 20 weeks 4 days; 44.20 %% FL: 3.25 cm cm; 20 weeks 1 day; 26.80 %% EFW: 354.11 g; 33.60 %, 12 ounces FL/AC: 21.10 FL/BPD: 69 HC/AC: 1.15 GESTATIONAL AGE: Age by EDC: 20 weeks 4 days HERNANDO by EDC: 2024-09-25 Age by US: 20 weeks 2 days HERNANDO by US: 2024-09-27 US/US OB cervical length IMPRESSION: Normal anatomy scan Closed cervix measuring 4.6 cm in length Electronically authenticated by: MANUELITO GREGG Date: 05/12/2024 09:42
--- NOTE | 2024-05-12 08:32 | US_ITS ---
[address] [address] Patient Name: SOFIA ZEPEDA MRN: [id number] date: 1995 Sex: F Assigned Patient Location: [facility] Current Patient Location: [facility] Accession/Order Number: [id number] Exam Date: 05/12/2024 08:32 Report Date: 05/12/2024 09:42 At the request of: AGUS SANTO Procedure: US OB anatomy EXAMINATION: US OB cervical length, US OB anatomy HISTORY: CERVICAL LENGTH COMPARISON: No relevant comparison available. FINDINGS: Heart Rate: 146 bpm Amniotic Fluid Volume: Subjectively normal Placenta: Posterior. The placental edge is 3.7 cm from the internal os Cervix: 4.6 cm, closed Number: 1 Normal anatomy: Lateral ventricles, cerebellum, posterior fossa, nose, lips, orbits, four-chamber heart, RVOT, LVOT, diaphragm, stomach, kidneys, abdominal cord insertion, bladder, umbilical arteries, three-vessel cord, spine, extremities Position: VARIABLE BIOMETRY: BPD: 4.71 cm cm; 20 weeks 2 days; 35.30 %% HC: 17.72 cm cm; 20 weeks 1 day; 25 %% AC: 15.40 cm cm; 20 weeks 4 days; 44.20 %% FL: 3.25 cm cm; 20 weeks 1 day; 26.80 %% EFW: 354.11 g; 33.60 %, 12 ounces FL/AC: 21.10 FL/BPD: 69 HC/AC: 1.15 GESTATIONAL AGE: Age by EDC: 20 weeks 4 days HERNANDO by EDC: 2024-09-25 Age by US: 20 weeks 2 days HERNANDO by US: 2024-09-27 US/US OB anatomy IMPRESSION: Normal anatomy scan Closed cervix measuring 4.6 cm in length Electronically authenticated by: MANUELITO GREGG Date: 05/12/2024 09:42
--- OUTSIDE RECORDS SUMMARY | 2024-05-12 08:33 | XMS_ITS | CCD ---
Author Organization [facility] Care Team Providers Care Director Energy Name Role Phone [facility] Center[facility]oha[facility]andra Unavailable KAP, SANDRA Primary Care Unavailable HANSA ., DR GOLDSMITH Attending Unavailable WEST, DR MANUELITO Foley Consulting Unavailable HANSA ., DR GOLDSMITH Admitting Unavailable HANSA ., DR GOLDSMITH Consulting Unavailable BRIAN, VIRGINIA Admitting Unavailable VIRGINIA TORRES Attending Unavailable KAP, SANDRA Primary Care Unavailable MARYSOL, DR MANUELITO Foley Consulting Unavailable HANSA ., [...] Unavailable HANSA ., DR GOLDSMITH Admitting Unavailable WEST, DR MANUELITO Foley Consulting Unavailable [...] DR GOLDSMITH Admitting Unavailable HANSA ., DR GOLSDMITH Consulting Unavailable KAPLE, SANDRA Primary Care Unavailable [...] JODIE ., DR HU Admitting Unavailabl e JODIE ., DR HU Attending Unavailabl e JODIE ., DR HU Consulting [facility] e ATTICA, DR MANUELITO Foley Consulting Unavailable HANSA ., DR GOLDSMITH Consulting Unavailable SANDRA AUSTIN Primary Care Unavailable HANSA ., DR GOLDSMITH Attending Unavailable ATTICA, DR MANUELITO Foley Consulting Unavailable HANSA ., DR GOLDSMITH Admitting Unavailable HANSA ., DR GOLDSMITH Consulting Unavailable Ramonita Greenberg Unavailable AGUS SANTO Attending Unavailable HANSA, AGUS Attending Unavailable AGUS SANTO Attending Unavailable Medications Current [...] hours February 13, 2024 12:00am polymyxin b 17324 unt/ml / trimethoprim 1 mg/ml ophthalmic solution (3 sources) Dihydrofolate Reductase Inhibitor Antibacterial, Polymyxin-class Antibacterial Start: 01-05-20 Polymyxin B-Trimethoprim 76912-8.1 UNIT/ML 1 drop into affected eye Ophthalmic [...] acid 7540 MG / polyethylene glycol 3350 04316 MG / potassium chloride 1200 MG / sodium ascorbate 30124 MG / sodium chloride 3200 MG Powder for Oral Solution) / 1 (polyethylene glycol 3350 375136 MG / potassium chloride 1000 MG / [...] DNA Probe+sig amp Ql (Cvx) Note . [facility] Comment on above: TESTS RESULT FLAG UN ITS REF RANGE LAB DI AGNOSIS: 02 NEGATIVE FOR INTRAEPITHELIAL LESION OR MALIGNANCY.Specimen adequacy: 02 Satisfactory for evaluation. Endocervical and/or squamous metaplastic cells (endocervical component) are present.Performed by: 02 Raeann Duran, Incubator Tender (ASC). 02Note: Note 02 The Pap smear is a screening test designed to aid in the detection of premalignant and malignant conditions of the uterine cervix. It is not a diagnostic procedure and should not be used as the sole means of detecting cervical cancer. Both false-positive and false-negative reports do occur.Test Methodology: Note 02 The [employer](R) Database Administrator was unable to read this specimen. Therefore a manual review was performed. ----- FLAG LEGEND: L-Low Normal,H-High Normal,LL-Alert Low,HH-Alert High <-Panic Low,>-Panic High,A-Abnormal,AA-Critical Abnormal ---Performed at:02 [facility] [address] [place] [address] Heavenly Serrano MD, . 02 The HPV DNA reflex criteria were not met with this specimen result therefore, no HPV testing was performed.The HPV DNA reflex criteria were not met with this specimenresult therefore, no HPV testing was performed.Performed at: =[facility] [place], [place] [id number] Director: Heavenly Serrano MD, Phone: [phone] at: - [address] [id number] Director: Heavenly Serrano MD, Phone: [phone] No Panel Informationon 12-16 Reference Lab Test Patient Age Note . [facility] Comment on above: TESTS RESULT FLAG UN ITS REF RANGE LAB Clinician Provided Cytology Information Source.............Cervix No. of containers..01 ThinPrep VialAge Algo ACOG Leslye... FLAG LEGEND: L-Low Normal,H-High Normal,LL-Alert Low,HH-Alert High <-Panic Low,>-Panic High,A-Abnormal,AA-Critical Abnormal ---Performed at:01 =G [facility] [address] [facility] [place] [address] Heavenly Serrano MD, A1C HEMOGLOBINon 10-31-2023 HbA1c (Bld) [Mass fraction] 5.8 % [facility] Other HbA1c (Bld) [Mass fraction]o n 10-31-2023 A1C HEMOGLOBIN ICU [facility] Other A1C HEMOGLOBINon 06-24-2023 HbA1c (Bld) [Mass fraction] 5.2 % [employer] Other HbA1c (Bld) [Mass fraction]o n 06-24-2023 A1C HEMOGLOBIN [facility] Other Quick Strepon 04-15-2023 S. pyogenes Org specific cx Ql (Throat) Positive [employer] Other Quick Strep [employer] Other FREE T4on 02-21-2023 Free T4 [Mass/Vol] 0.89 ng/dL Normal 0.76-1.46 [facility] Comment on above: Performed By: #### H H #### [facility] [address] [place] [address] Dr. Bella Jerome PROF 14(COMP METB)on 023 Albumin [Mass/Vol] 3.7 g/dL Normal 3.4-5.0 [facility] Comment on above: Performed By: #### H H #### [facility] [address] [place] [address] Dr. Bella Jerome Albumin/Globulin [Mass ratio] 0.9 {ratio} Normal [facility] Comment on above: Performed By: #### H H #### [facility] [address] [place] [address] Dr. Bella Jerome ALP [Catalytic activity/Vol] 132 U/L Critically high 46-116 [facility] Comment on above: Performed By: #### H H #### [facility] [address] [place] [address] Dr. Bella Jerome ALT [Catalytic activity/Vol] 32 U/L Normal 14-59 [facility] Comment on above: Performed By: #### H H #### [facility] [address] [place] [address] Dr. Bella Jerome Anion gap [Moles/Vol] 12.8 mmol/L Normal [facility] Comment on above: Performed By: #### H H #### [facility] [address] [address] [address] Bella Jerome AST [Catalytic activity/Vol] 23 U/L Normal 15-37 [facility] Comment on above: Performed By: #### H H #### [facility] [address] [address] [address] Bella Jerome Bilirubin [Mass/Vol] 0.6 mg/dL Normal 0.2-1.0 [facility] Comment on above: Performed By: #### H H #### [facility] [address] [address] [address] Bella Jerome Calcium [Mass/Vol] 9.0 mg/dL Normal 8.5-10.1 [facility] Comment on above: Performed By: #### H H #### [facility] [address] [address] [address] Bella Jerome Chloride [Moles/Vol] 102 mmol/L Normal 98-107 [facility] Comment on above: Performed By: #### H H #### [facility] [address] [address] [address] Bella Jerome CO2 [Moles/Vol] 28.2 mmol/L Normal 21.0-32.0 [facility] Comment on above: Performed By: #### H H #### [facility] [address] [address] [address] Bella Jerome Creatinine [Mass/Vol] 0.67 mg/dL Normal 0.55-1.02 [facility] Comment on above: Performed By: #### H H #### [facility] [address] [address] [address] Bella Jerome EGFR-AF NEPALESE >60 Normal >=60 [facility] Comment on above: Performed By: #### H H #### [facility] [address] [address] [address] Bella Jerome EGFR-NON AF NEPALESE >60 Normal >=60 [facility] Comment on above: Performed By: #### H H #### [facility] [address] [address] [address] Bella Jerome Globulin (S) [Mass/Vol] 4.2 g/dL Normal [facility] Comment on above: Performed By: #### H H #### [facility] [address] [address] [address] Bella Jerome Glucose [Mass/Vol] 88 mg/dL Normal 74-106 [facility] Comment on above: Performed By: #### H H #### [facility] [address] [place] [address] Dr. Bella Jerome Potassium [Moles/Vol] 4.0 mmol/L Normal 3.5-5.1 [facility] Comment on above: Performed By: #### H H #### [facility] [address] [place] [address] Dr. Bella Jerome Protein [Mass/Vol] 7.9 g/dL Normal 6.4-8.2 [facility] Comment on above: Performed By: #### H H #### [facility] [address] [place] [address] Dr. Bella Jerome Sodium [Moles/Vol] 139 mmol/L Normal 136-145 [facility] Comment on above: Performed By: #### H H #### [facility] [address] [place] [address] Dr. Bella Jerome Urea nitrogen [Mass/Vol] 12.0 mg/dL Normal 7.0-18.0 [facility] Comment on above: Performed By: #### H H #### [facility] [address] [place] [address] Dr. Bella Jerome Urea nitrogen/Creatinine [Mass ratio] 17.9 mg/mg Normal [facility] Comment on above: Performed By: #### H H #### [facility] [address] [place] [address] Dr. Bella Jerome TSHon 02-21-2023 TSH 2.463 uIU/mL Normal 0.358-3.740 [facility] Comment on above: Performed By: #### H H #### [facility] [address] [place] [address] Dr. Bella Jerome VITAMIN D 25 OHon 02-21-2023 VIT D 25-OH 23.1 ng/mL Normal [facility] Comment on above: Performed By: #### H H #### [facility] [address] [place] [address] Dr. Bella Jerome VIT D RANGES SEE BELOW Normal [facility] Comment on above: Result Comment: <20 ng/mL Vit D deficient 20 - <30 ng/mL Vit D insufficient 30 - 100 ng/mL Vit D sufficient >100 ng/mL Potential Toxicity Performed By: #### H H #### [facility] [address] [place] [address] Dr. Bella Jerome CBC AUTO DIFFon 12-26-2022 BASO # 0.0 103/ul Normal 0.0-0.1 [facility] Comment on above: Performed By: #### C BC #### [facility] [address] [place] [address] Dr. Bella Jerome Basophils/100 WBC (Bld) 0.3 % Normal 0.2-2.0 [facility] Comment on above: Performed By: #### C BC #### [facility] [address] [place] [address] Dr. Bella Jerome EO # 0.1 103/ul Normal 0.0-0.7 [facility] Comment on above: Performed By: #### C BC #### [facility] [address] [place] [address] Dr. Bella Jerome Eosinophils/100 WBC (Bld) 1.6 % Normal 0.9-7.0 [facility] Comment on above: Performed By: #### C BC #### [facility] [address] [place] [address] Dr. Bella Jerome Erythrocyte distribution width (RBC) [Ratio] 12.7 % Normal 11.0-15.0 [facility] Comment on above: Performed By: #### C BC #### [facility] [address] [place] [address] Dr. Bella Jerome Hematocrit (Bld) [Volume fraction] 37.2 % Normal 36.0-48.0 [facility] Comment on above: Performed By: #### C BC #### [facility] [address] [place] [address] Dr. Bella Jerome Hemoglobin (Bld) [Mass/Vol] 12.5 g/dL Normal 12.0-16.0 [facility] Comment on above: Performed By: #### C BC #### [facility] [address] [place] [address] Dr. Bella Jeroem IG # 0.02 10e3/ul Normal 0.00-0.03 [facility] Comment on above: Performed By: #### C BC #### [facility] [address] [place] [address] Dr. Bella Jerome IG % 0.3 % Normal 0.0-0.5 [facility] Comment on above: Performed By: #### C BC #### [facility] [address] [place] [address] Dr. Bella Jerome LYMPH # 2.3 103/ul Normal 1.2-3.8 [facility] Comment on above: Performed By: #### C BC #### [facility] [address] [place] [address] Dr. Bella Jerome Lymphocytes/100 WBC (Bld) 34.1 % Normal 20.5-60.0 [facility] Comment on above: Performed By: #### C BC #### [facility] [address] [place] [address] Dr. Bella Jerome MANUAL DIFF REQ NO Normal [facility] Comment on above: Performed By: #### C BC #### [facility] [address] [place] [address] Dr. Bella Jerome MCH (RBC) [Entitic mass] 30.9 pg Normal 26.7-34.0 [facility] Comment on above: Performed By: #### C BC #### [facility] [address] [place] [address] Dr. Bella Jerome MCHC (RBC) [Mass/Vol] 33.6 g/dL Normal 29.9-35.2 [facility] Comment on above: Performed By: #### C BC #### [facility] [address] [address] [address] Bella Jerome MCV (RBC) [Entitic vol] 91.9 fL Normal 81.0-99.0 [facility] Comment on above: Performed By: #### C BC #### [facility] [address] [address] [address] Bella Jerome MONO # 0.4 103/ul Normal 0.3-0.8 [facility] Comment on above: Performed By: #### C BC #### [facility] [address] [address] [address] Bella Jerome Monocytes/100 WBC (Bld) 5.1 % Normal 1.7-12.0 [facility] Comment on above: Performed By: #### C BC #### [facility] [address] [address] [address] Bella Jerome NEUT # 4.0 103/ul Normal 1.4-6.5 [facility] Comment on above: Performed By: #### C BC #### [facility] [address] [address] [address] Bella Jerome Neutrophils/100 WBC (Bld) 58.6 % Normal 43.0-75.0 [facility] Comment on above: Performed By: #### C BC #### [facility] [address] [address] [address] Bella Jerome Platelet mean volume (Bld) [Entitic vol] 11.5 fL Normal 9.5-13.5 [facility] Comment on above: Performed By: #### C BC #### [facility] [address] [address] [address] Bella Jerome PLT 243 103/ul Normal 150-450 [facility] Comment on above: Performed By: #### C BC #### [facility] [address] [address] [address] Bella Jerome RBC 4.05 106/ul Critically low 4.20-5.40 [facility] Comment on above: Performed By: #### C BC #### [facility] [address] [address] [address] Bella Jerome WBC 6.8 103/ul Normal 4.0-11.0 [facility] Comment on above: Performed By: #### C BC #### [facility] [address] [address] [address] Bella Jerome FREE T4on 12-26-2022 Free T4 [Mass/Vol] 1.05 ng/dL Normal 0.76-1.46 [facility] Comment on above: Performed By: #### F T4, VITAD, B12FOL, IRON ####[facility] [id number] [id number][address] Bella Jerome GLYCOHEMOGLOBIN A1Con 2022 ADA RECOMMENDATION SEE BELOW Normal [facility] Comment on above: Result Comment: ADA RECOMMENDED LIMIT 4.0 - 6.0 ADA THERAPEUTIC TARGET < 7.0 ACTION SUGGESTED > 7.0 Performed By: #### A 1C #### [facility] [address] [address] [address] Bella Jerome Glucose [Mass/Vol] 103 mg/dL Normal [facility] Comment on above: Performed By: #### A 1C #### [facility] [address] [address] [address] Bella Jerome HbA1c (Bld) [Mass fraction] 5.2 % Normal 4.5-6.2 [facility] Comment on above: Performed By: #### A 1C #### [facility] [address] [address] [address] Bella Jerome IRONon 12-26-2022 Iron [Mass/Vol] 74.0 ug/dL Normal 50.0-170.0 [facility] Comment on above: Performed By: #### F T4, VITAD, B12FOL, IRON ####[facility] [id number] [id number]. Bella Jerome LIPID PROFILEon 12-26-2022 CHOL-HDL RATIO NORM SEE BELOW Normal [facility] Comment on above: Result Comment: 3.3 - 4.4 LOW RISK 4.4 - 7.1 AVERAGE RISK 7.1 - 11.0 MODERATE RISK >11.0 HIGH RISK Performed By: #### C MP, TSH, LIPID #### [facility] [address] [address] [address] Bella Jerome Cholesterol [Mass/Vol] 153 mg/dL Normal <=200 [facility] Comment on above: Performed By: #### C MP, TSH, LIPID #### [facility] [address] [address] [address] Bella Jerome Cholesterol in HDL [Mass/Vol] 67 mg/dL Critically high 40-60 [facility] Comment on above: Performed By: #### C MP, TSH, LIPID #### [facility] [address] [place] [address] Dr. Bella Jerome Cholesterol in LDL [Mass/Vol] 77.2 mg/dL Normal [facility] Comment on above: Performed By: #### C MP, TSH, LIPID #### [facility] [address] [place] [address] Dr. Bella Jerome Cholesterol.total/Ch olesterol in HDL [Mass ratio] 2.3 {ratio} Normal [facility] Comment on above: Performed By: #### C MP, TSH, LIPID #### [facility] [address] [place] [address] Dr. Bella Jerome HDL NORMAL > or = 60 mg/dl - LOW CARDIOVASCULAR RISK <40 mg/dl - HIGH CARDIOVASCULAR RISK Normal [facility] Comment on above: Performed By: #### C MP, TSH, LIPID #### [facility] [address] [place] [address] Dr. Bella Jerome LDL CALC NORMAL SEE BELOW Normal [facility] Comment on above: Result Comment: <100 mg/dl OPTIMAL 100 - 129 mg/dl NEAR OR ABOVE OPTIMAL 130 - 159 mg/dl BORDERLINE HIGH 160 - 189 mg/dl HIGH >190 mg/dl VERY HIGH Performed By: #### C MP, TSH, LIPID #### [facility] [address] [place] [address] Dr. Bella Jerome Triglyceride [Mass/Vol] 44 mg/dL Normal <=150 [facility] Comment on above: Performed By: #### C MP, TSH, LIPID #### [facility] [address] [address] [address] Bella Jerome VLDL CALC 8.8 mg/dL Normal [facility] Comment on above: Performed By: #### C MP, TSH, LIPID #### [facility] [address] [address] [address] Bella Jerome MICROALB CREAT RATIO RANDOMo n 12-26-2022 mALB 2.3 mg/L Normal <=30.0 [facility] Comment on above: Performed By: #### H H #### [facility] [address] [address] [address] Bella Jerome MALB CR RATIO 17.4 mg/g Normal 0.0-29.9 [facility] Comment on above: Performed By: #### H H #### [facility] [address] [address] [address] Bella Jerome MALB CR RATIO RANGE SEE BELOW Normal [facility] Comment on above: Result Comment: NO M ICROALBUMINURIA 0-29 MG/G CLINICAL MICROALBUMINURIA 30-300 MG/G MACROALBUMINURIA >300 MG/G Performed By: #### H H #### [facility] [address] [address] [address] Bella Jerome URINE CREAT 131.90 mg/dL Normal 20.00-300.00 [facility] Comment on above: Performed By: #### H H #### [facility] [address] [address] [address] Bella Jerome PROF 14(COMP METB)on 023 Albumin [Mass/Vol] 4.1 g/dL Normal 3.4-5.0 [facility] Comment on above: Performed By: #### C MP, TSH, LIPID #### [facility] [address] [place] [address] Dr. Bella Jerome Albumin/Globulin [Mass ratio] 1.3 {ratio} Normal [facility] Comment on above: Performed By: #### C MP, TSH, LIPID #### [facility] [address] [address] [address] Bella Jerome ALP [Catalytic activity/Vol] 124 U/L Critically high 46-116 [facility] Comment on above: Performed By: #### C MP, TSH, LIPID #### [facility] [address] [address] [address] Bella Jerome ALT [Catalytic activity/Vol] 16 U/L Normal 14-59 [facility] Comment on above: Performed By: #### C MP, TSH, LIPID #### [facility] [address] [address] [address] Bella Jerome Anion gap [Moles/Vol] 13.4 mmol/L Normal [facility] Comment on above: Performed By: #### C MP, TSH, LIPID #### [facility] [address] [place] [address] Dr. Bella Jerome AST [Catalytic activity/Vol] 17 U/L Normal 15-37 [facility] Comment on above: Performed By: #### C MP, TSH, LIPID #### [facility] [address] [address] [address] Bella Jerome Bilirubin [Mass/Vol] 0.8 mg/dL Normal 0.2-1.0 [facility] Comment on above: Performed By: #### C MP, TSH, LIPID #### [facility] [address] [address] [address] Bella Jerome Calcium [Mass/Vol] 8.9 mg/dL Normal 8.5-10.1 [facility] Comment on above: Performed By: #### C MP, TSH, LIPID #### [facility] [address] [address] [address] Bella Jerome Chloride [Moles/Vol] 103 mmol/L Normal 98-107 [facility] Comment on above: Performed By: #### C MP, TSH, LIPID #### [facility] [address] [address] [address] Bella Jerome CO2 [Moles/Vol] 25.6 mmol/L Normal 21.0-32.0 [facility] Comment on above: Performed By: #### C MP, TSH, LIPID #### [facility] [address] [address] [address] Bella Jerome Creatinine [Mass/Vol] 0.55 mg/dL Normal 0.55-1.02 [facility] Comment on above: Performed By: #### C MP, TSH, LIPID #### [facility] [address] [address] [address] Bella Jerome EGFR-AF NEPALESE >60 Normal >=60 [facility] Comment on above: Performed By: #### C MP, TSH, LIPID #### [facility] [address] [address] [address] Bella Jerome EGFR-NON AF NEPALESE >60 Normal >=60 [facility] Comment on above: Performed By: #### C MP, TSH, LIPID #### [facility] [address] [address] [address] Bella Jerome Globulin (S) [Mass/Vol] 3.1 g/dL Normal [facility] Comment on above: Performed By: #### C MP, TSH, LIPID #### [facility] [address] [address] [address] Bella Jerome Glucose [Mass/Vol] 82 mg/dL Normal 74-106 [facility] Comment on above: Performed By: #### C MP, TSH, LIPID #### [facility] [address] [address] [address] Bella Jerome Potassium [Moles/Vol] 4.0 mmol/L Normal 3.5-5.1 [facility] Comment on above: Performed By: #### C MP, TSH, LIPID #### [facility] [address] [address] [address] Bella Jerome Protein [Mass/Vol] 7.2 g/dL Normal 6.4-8.2 [facility] Comment on above: Performed By: #### C MP, TSH, LIPID #### [facility] [address] [address] [address] Bella Jerome Sodium [Moles/Vol] 138 mmol/L Normal 136-145 [facility] Comment on above: Performed By: #### C MP, TSH, LIPID #### [facility] [address] [address] [address] Bella Jerome Urea nitrogen [Mass/Vol] 14.0 mg/dL Normal 7.0-18.0 [facility] Comment on above: Performed By: #### C MP, TSH, LIPID #### [facility] [address] [address] [address] Bella Jerome Urea nitrogen/Creatinine [Mass ratio] 25.5 mg/mg Normal [facility] Comment on above: Performed By: #### C MP, TSH, LIPID #### [facility] [address] [address] [address] Bella Jerome TSHon 12-26-2022 TSH 0.224 uIU/mL Critically low 0.358-3.740 [facility] Comment on above: Performed By: #### C MP, TSH, LIPID #### [facility] [address] [address] [address] Bella Jerome VIT B12 AND FOLATEon 023 Cobalamin (Vitamin B12) [Mass/Vol] 702.0 pg/mL Normal 193.0-986.0 [facility] Comment on above: Performed By: #### F T4, VITAD, B12FOL, IRON ####[facility] [id number] [id number] Jerome FOLATE 25.10 ng/mL Normal 8.60-58.90 [facility] Comment on above: Performed By: #### F T4, VITAD, B12FOL, IRON ####[facility] [id number] [id number] Bella Jerome VITAMIN D 25 OHon 12-26-2022 VIT D 25-OH 25.4 ng/mL Normal [facility] Comment on above: Performed By: #### F T4, VITAD, B12FOL, IRON ####[facility] [id number] [id number] Jerome VIT D RANGES SEE BELOW Normal [facility] Comment on above: Result Comment: <20 ng/mL Vit D deficient 20 - <30 ng/mL Vit D insufficient 30 - 100 ng/mL Vit D sufficient >100 ng/mL Potential Toxicity Performed By: #### F T4, VITAD, B12FOL, IRON ####[facility] [address] [place] [address]Dr. Bella Jerome PAP ACOG PANEL 2: 23 to 31on 12-18-2022 . . Normal [facility] Comment on above: Performed By: #### C BC #### [facility] [address] [address] [address] Bella Jerome Age Gdln ACOG Testing - [facility] Comment on above: Performed By: #### C BC #### [facility] [address] [address] [address] Bella Jerome DIAGNOSIS: Comment [facility] Comment on above: Result Comment: NEGA TIVE FOR INTRAEPITHELIAL LESION OR MALIGNANCY. Performed By: #### C BC #### [facility] [address] [place] [address] Dr. Bella Jerome Methodology: Comment [facility] Comment on above: Result Comment: This liquid based ThinPrep(R) pap test was screened with the use of an image guided system. Performed By: #### C BC #### [facility] [address] [place] [address] Dr. Bella Jerome Note: Comment [facility] Comment on above: Result Comment: The Pap smear is a screening test designed to aid in the detection of premalignant and malignant conditions of the uterine cervix. It is not a diagnostic procedure and should not be used as the sole means of detecting cervical cancer. Both false-positive and false-negative reports do occur. . Performed By: #### C BC #### [facility] [address] [address] [address] Bella Jerome Performed by: Comment [facility] Comment on above: Result Comment: Byron Irby, Incubator Tender (ASCP) Performed By: #### C BC #### [facility] [address] [address] [address] Bella Jerome Reflex Criteria: Comment [facility] Comment on above: Result Comment: The HPV DNA reflex criteria were not met with this specimen result therefore, no HPV testing was performed. . Performed By: #### C BC #### [facility] [address] [place] [address] Dr. Bella Jerome Specimen adequacy: Comment Normal [facility] Comment on above: Result Comment: Sati sfactory for evaluation. Endocervical and/or squamous metaplastic cells (endocervical component) are present. Performed By: #### C BC #### [facility] [address] [address] [address] Bella Jerome CBC W MANUAL DIFFon 09-07-20 22 ATYPICAL LYMPH # Normal [facility] Comment on above: Performed By: #### C YOONMAN ####[facility] [address] [address]Dr. Bella Jerome ATYPICAL LYMPH % Normal [facility] Comment on above: Performed By: #### C YOONMAN ####[facility] [address] [address]Dr. Bella Jerome BAND # 0.2 103/ul Normal 0.0-0.3 [facility] Comment on above: Performed By: #### C BCMAN ####[facility] [address] [place] [address]Dr. Bella Jerome BAND % 1 % Normal 0-5 [facility] Comment on above: Performed By: #### C BCMAN ####[facility] [address] [place] [address]Dr. Bella Jerome BASOM # 0.00 103/ul Normal 0.00-0.10 [facility] Comment on above: Performed By: #### C BCMAN ####[facility] [address] [address]Dr. Bella Jerome BASOM % 0.0 % Critically low 0.2-2.0 The [facility] Comment on above: Performed By: #### C BCMAN ####[facility] [address] [place] [address]Dr. Bella Jerome BLAST # Normal [facility] Comment on above: Performed By: #### C PEDRO ####[facility] [address] [place] [id number]. Bella Jerome BLAST % Normal [facility] Comment on above: Performed By: #### C PEDRO ####[facility] [address] [place] [id number]. Bella Jerome CORRECTED WBC Normal 4.0-11.0 [facility] Comment on above: Performed By: #### C PEDRO ####[facility] [address] [place] [id number]. Bella Jerome EOS # 0.00 103/ul Normal 0.00-0.70 [facility] Comment on above: Performed By: #### C PEDRO ####[facility] [address] [place] [address]Dr. Bella Jerome EOS% 0.0 % Critically low 0.9-7.0 The [facility] Comment on above: Performed By: #### C PEDRO ####[facility] [address] [place] [address]Dr. Bella Jerome HCT 30.5 % Critically low 36.0-48.0 The [facility] Comment on above: Performed By: #### C PEDRO ####[facility] [address] [place] [address]Dr. Bella Jerome HGB 10.5 g/dl Critically low 12.0-16.0 [facility] Comment on above: Performed By: #### C PEDRO ####[facility] [address] [place] [address]Dr. Bella Jerome LYMPHM # 2.78 103/ul Normal 1.20-3.80 [facility] Comment on above: Performed By: #### C PEDRO ####[facility] [address] [place] [id number]. Bella Jerome LYMPHM% 13.0 % Critically low 20.5-60.0 The [facility] Comment on above: Performed By: #### C PEDRO ####[facility] [address] [place], [place] [address]Dr. Bella Jerome MCH 32.8 pg Normal 26.7-34.0 [facility] Comment on above: Performed By: #### C PEDRO ####[facility] [address] [place] [phone]. Bella Jerome MCHC 34.4 g/dl Normal 29.9-35.2 [facility] Comment on above: Performed By: #### C PEDRO ####[facility] [address] [place] [phone]. Bella Jerome MCV 95.3 fL Normal 81.0-99.0 [facility] Comment on above: Performed By: #### C BCRELL ####[facility] [address] [place] [address]Dr. Bella Jerome METAMYELOCYTE # Normal [facility] Comment on above: Performed By: #### C PEDRO ####[facility] [address] [place] [id number]. Bella Jerome METAMYELOCYTE % Normal [facility] Comment on above: Performed By: #### C PEDRO ####[facility] [address] [place] [id number]. Bella Jerome MONOM# 2.35 103/ul Critically high 0.30-0.80 [facility] Comment on above: Performed By: #### C PEDRO ####[facility] [address] [place] [address]Dr. Bella Jerome MONOM% 11.0 % Normal 1.7-12.0 [facility] Comment on above: Performed By: #### C PEDRO ####[facility] [address] [place] [phone]. Bella Jerome MPV 11.1 fL Normal 9.5-13.5 [facility] Comment on above: Performed By: #### C PEDRO ####[facility] [address] [place] [id number]. Bella Jerome MYELOCYTE # Normal [facility] Comment on above: Performed By: #### C PEDRO ####[facility] [address] [place], [place] [address]Eh. Bella Jerome MYELOCYTE % Normal [facility] Comment on above: Performed By: #### C BCRELL ####[facility] [address] [place], [place] [address]Og. Bella Jerome NRBC Normal [facility] Comment on above: Performed By: #### C PEDRO ####[facility] [address] [place], [place] [address]Bi. Bella Jerome PLT 227 103/ul Normal 150-450 [facility] Comment on above: Performed By: #### C PEDRO ####[facility] [address] [place], [place] [address]Xv. Bella Jerome RBC 3.20 106/ul Critically low 4.20-5.40 The [facility] Comment on above: Performed By: #### C PEDRO ####[facility] [address] [place] [phone]. Bella Jerome RDW 12.8 % Normal 11.0-15.0 [facility] Comment on above: Performed By: #### C PEDRO ####[facility] [address] [place] [phone]. Bella Jerome SEG # 16.05 103/ul Critically high 1.40-6.50 [facility] Comment on above: Performed By: #### C PEDRO ####[facility] [address] [place] [phone]. Bella Jerome SEG % 75.0 % Normal 43.0-75.0 [facility] Comment on above: Performed By: #### C PEDRO ####[facility] [address] [place], [place] [address]Ya. Bella Jerome WBC 21.4 103/ul Critically high 4.0-11.0 [facility] Comment on above: Performed By: #### C PEDRO ####[facility] [address] [place] [phone]. Bella Jerome CBC AUTO DIFFon 09-05-2022 BASO # 0.0 103/ul Normal 0.0-0.1 [facility] Comment on above: Performed By: #### C BC #### [facility] [address] [address] [address] Bella Jerome Basophils/100 WBC (Bld) 0.2 % Normal 0.2-2.0 [facility] Comment on above: Performed By: #### C BC #### [facility] [address] [address] [address] Bella Jerome EO # 0.1 103/ul Normal 0.0-0.7 [facility] Comment on above: Performed By: #### C BC #### [facility] [address] [address] [address] Bella Jerome Eosinophils/100 WBC (Bld) 0.6 % Critically low 0.9-7.0 [facility] Comment on above: Performed By: #### C BC #### [facility] [address] [place] [address] Dr. Bella Jerome Erythrocyte distribution width (RBC) [Ratio] 12.6 % Normal 11.0-15.0 [facility] Comment on above: Performed By: #### C BC #### [facility] [address] [place] [address] Dr. Bella Jerome Hematocrit (Bld) [Volume fraction] 32.5 % Critically low 36.0-48.0 [facility] Comment on above: Performed By: #### C BC #### [facility] [address] [place] [address] Dr. Bella Jerome Hemoglobin (Bld) [Mass/Vol] 11.1 g/dL Critically low 12.0-16.0 [facility] Comment on above: Performed By: #### C BC #### [facility] [address] [place] [address] Dr. Bella Jerome IG # 0.14 10e3/ul Critically high 0.00-0.03 [facility] Comment on above: Performed By: #### C BC #### [facility] [address] [address] [address] Bella Jerome IG % 1.1 % Critically high 0.0-0.5 [facility] Comment on above: Performed By: #### C BC #### [facility] [address] [address] [address] Bella Jerome LYMPH # 2.6 103/ul Normal 1.2-3.8 [facility] Comment on above: Performed By: #### C BC #### [facility] [address] [address] [address] Bella Jerome Lymphocytes/100 WBC (Bld) 20.2 % Critically low 20.5-60.0 [facility] Comment on above: Performed By: #### C BC #### [facility] [address] [place] [address] Dr. Bella Jerome MANUAL DIFF REQ NO Normal [facility] Comment on above: Performed By: #### C BC #### [facility] [address] [place] [address] Dr. Bella Jerome MCH (RBC) [Entitic mass] 32.2 pg Normal 26.7-34.0 [facility] Comment on above: Performed By: #### C BC #### [facility] [address] [place] [address] Dr. Bella Jerome MCHC (RBC) [Mass/Vol] 34.2 g/dL Normal 29.9-35.2 [facility] Comment on above: Performed By: #### C BC #### [facility] [address] [place] [address] Dr. Bella Jerome MCV (RBC) [Entitic vol] 94.2 fL Normal 81.0-99.0 [facility] Comment on above: Performed By: #### C BC #### [facility] [address] [place] [address] Dr. Bella Jerome MONO # 0.9 103/ul Critically high 0.3-0.8 The [facility] Comment on above: Performed By: #### C BC #### [facility] [address] [place] [address] Dr. Bella Jerome Monocytes/100 WBC (Bld) 7.1 % Normal 1.7-12.0 [facility] Comment on above: Performed By: #### C BC #### [facility] [address] [address] [address] Bella Jerome NEUT # 8.9 103/ul Critically high 1.4-6.5 [facility] Comment on above: Performed By: #### C BC #### [facility] [address] [address] [address] Bella Jerome Neutrophils/100 WBC (Bld) 70.8 % Normal 43.0-75.0 [facility] Comment on above: Performed By: #### C BC #### [facility] [address] [place] [address] Dr. Bella Jerome Platelet mean volume (Bld) [Entitic vol] 11.0 fL Normal 9.5-13.5 [facility] Comment on above: Performed By: #### C BC #### [facility] [address] [place] [address] Dr. Bella Jerome PLT 234 103/ul Normal 150-450 [facility] Comment on above: Performed By: #### C BC #### [facility] [address] [place] [address] Dr. Bella Jerome RBC 3.45 106/ul Critically low 4.20-5.40 [facility] Comment on above: Performed By: #### C BC #### [facility] [address] [place] [address] Dr. Bella Jerome WBC 12.6 103/ul Critically high 4.0-11.0 [facility] Comment on above: Performed By: #### C BC #### [facility] [address] [place] [address] Dr. Bella Jerome [facility]on SARS-CoV-2 (COVID-19) RNA FAVIAN+probe Ql (Unsp spec) Not detected Normal NOT DETECTED [facility] Comment on above: Result [...] for this test is supported by the Superintendent Service of Health and Human Service's declaration that [...] used). Performed By: #### C VDTBH ####[facility] [address] [place], [place] [address]Dr. Bella Jerome DRUG SCREEN RAPID (URINE)on 09-05-2022 AMP Negative Normal NEGATIVE [facility] Comment on above: Performed By: #### D RUGRPD ####[facility] [address] [place], [place] [address]Dr. Bella Jerome BAR Negative Normal NEGATIVE [facility] Comment on above: Performed By: #### D RUGRPD ####[facility] [address] [place], [place] [address]Dr. Bella Jerome BUP Negative Normal NEGATIVE [facility] Comment on above: Performed By: #### D RUGRPD ####[facility] [address] [place], [place] [address]Dr. Bella Jerome BZO Negative Normal NEGATIVE [facility] Comment on above: Performed By: #### D RUGRPD ####[facility] [address] [place], [place] [address]Dr. Bella Jerome NGA Negative Normal NEGATIVE [facility] Comment on above: Performed By: #### D RUGRPD ####[facility] [address] [place], [place] [address]Dr. Bella Jerome CUT-OFFS SEE BELOW Normal [facility] Comment on above: Result [...] ng/mL Performed By: #### D RUGRPD ####[facility] [address] [place], [place] [address]Dr. [facility] DRUG CUT HEADER DRUG CLASS TEST SYSTEM CUT-OFF CONCENTRATIONS ARE FOLLOWS: Normal [facility] Comment on above: Performed By: #### D RUGRPD ####[facility] [address] [place], [place] [address]Dr. Bella [facility] mAMP Negative Normal NEGATIVE [facility] Comment on above: Performed By: #### D RUGRPD ####[facility] [address] [place], [place] [address]Dr. Bella [facility] MTD Negative Normal NEGATIVE [facility] Comment on above: Performed By: #### D RUGRPD ####[facility] [address] [place], [place] [address]Dr. Bella [facility] OPI Negative Normal NEGATIVE [facility] Comment on above: Performed By: #### D RUGRPD ####[facility] [address] [place], [place] [address]Dr. Liwally Jerome OXY Negative Normal NEGATIVE [facility] Comment on above: Performed By: #### D RUGRPD ####[facility] [address] [place], [place] [address]Dr. wally [facility] PCP Negative Normal NEGATIVE [facility] Comment on above: Performed By: #### D RUGRPD ####[facility] [address] [place], [place] [address]. [facility] Negative Normal NEGATIVE [facility] Comment on above: Performed By: #### D RUGRPD ####[facility] [address] [place], [place] [address]Zs. Bella Jerome TCA Negative Normal NEGATIVE [facility] Comment on above: Performed By: #### D RUGRPD ####[facility] [address] [place], [place] [address]Gj. Bella Jerome THC Negative Normal NEGATIVE [facility] Comment on above: Performed By: #### D RUGRPD ####[facility] [address] [place], [place] [address]Ez. Bella Jerome TYPE AND SCREENon 09-05-2022 TYPE AND SCREEN Negative Normal [facility] Comment on above: Performed By: #### T NS ####[facility] [address] [place] [address]Dr. Bella Jerome US PREG BIOPHY W NON [...] GREGG Date: 2022-08-31 17:06 Normal [facility] US PREG GROWTHon 08-30-2022 US [...] by: MANUELITO GREGG Date: 2022-08-30 17:59 Normal [facility] US PREG BIOPHY W NON STRESSo n [...] by: MANUELITO GREGG Date: 2022-08-24 17:10 Normal [facility] FREE T4on 08-21-2022 Free T4 [Mass/Vol] 0.90 ng/dL Normal 0.76-1.46 [facility] Comment on above: Performed By: #### C BC #### [facility] [address] [place] [address] Dr. Bella Jerome TSHon 08-21-2022 TSH 1.033 uIU/mL Normal 0.358-3.740 [facility] Comment on above: Performed By: #### H H #### [facility] [address] [place] [address] Dr. Bella Jerome US PREG BIOPHY W [...] by: MANUELITO GREGG Date: 2022-08-17 18:33 Normal [facility] GROUP B STREP CULTUREon 07-28 S. agalactiae Ag Ql (Unsp spec) Culture Observations: NEGATIVE FOR GROUP B STREPTOCOCCUS. Normal [facility] Comment on above: Performed By: #### G BSCX ####[facility] [address] [place], [place] [address]Kt. Bella Jerome US PREG BIOPHY W NON [...] GREGG Date: 2022-08-10 16:36 Normal [facility] US PREG GROWTHon 08-10-2022 US [...] GREGG Date: 2022-08-10 16:37 Normal [facility] US PREG GROWTHon 07-25-2022 US [...] GREGG Date: 2022-07-25 18:18 Normal [facility] FREE T4on 07-24-2022 Free T4 [Mass/Vol] 0.98 ng/dL Normal 0.76-1.46 [facility] Comment on above: Performed By: #### F T4 #### [facility] [address] [place], [place] [address] Dr. Bella Jerome TSHon 07-24-2022 TSH 1.196 uIU/mL Normal 0.358-3.740 [facility] Comment on above: Performed By: #### T SH ####[facility] [address] [place], [place] [address]FuDr. Bella Jerome UA (CLEAN/CATCH) BRAZER ELECTRONIC/MICRO I F IND.on 07-20-2022 Bilirubin Ql (U) Negative Normal NEGATIVE [facility] Comment on above: Performed By: #### H H #### [facility] [address] [place] [address] Dr. Bella Jerome Clarity (U) CLEAR Normal CLEAR [facility] Comment on above: Performed By: #### H H #### [facility] [address] [place] [address] Dr. Bella Jerome Color (U) LT. YELLOW Normal YELLOW [facility] Comment on above: Performed By: #### H H #### [facility] [address] [place] [address] Dr. Bella Jerome Glucose Ql (U) Negative Normal NEGATIVE [facility] Comment on above: Performed By: #### H H #### [facility] [address] [place] [address] Dr. Bella Jerome Hemoglobin Ql (U) Negative Normal NEGATIVE [facility] Comment on above: Performed By: #### H H #### [facility] [address] [place] [address] Dr. Bella Jerome Ketones Ql (U) Negative Normal NEGATIVE [facility] Comment on above: Performed By: #### H H #### [facility] [address] [place] [address] Dr. Bella Jerome LEUKOCYTES Negative Normal NEGATIVE [facility] Comment on above: Performed By: #### H H #### [facility] [address] [place] [address] Dr. Bella Jerome Nitrite Ql (U) Negative Normal NEGATIVE [facility] Comment on above: Performed By: #### H H #### [facility] [address] [place] [address] Dr. Bella Jerome pH (U) 7.0 [pH] Normal 5-9 [facility] Comment on above: Performed By: #### H H #### [facility] [address] [place] [address] Dr. Bella Jerome SPEC GRAVITY <=1.005 Abnormal 1.005-<=1.025 [facility] Comment on above: Performed By: #### H H #### [facility] [address] [address] [address] Bella Jerome UA PROTEIN Negative Normal NEGATIVE/ TRACE [facility] Comment on above: Performed By: #### H H #### [facility] [address] [place] [address] Dr. Bella Jerome UR MICRO IND NOT INDICATED Normal [facility] Comment on above: Performed By: #### H H #### [facility] [address] [address] [address] Bella Jerome Urobilinogen Qn (U) 0.2 {Kimberlee'U}/dL Normal 0.2 - 1. 0 [facility] Comment on above: Performed By: #### H H #### [facility] [address] [place] [address] Dr. Bella Jerome PREG GROWTHon 06-27-2022 US [...] SANTOS Date: 2022-06-27 16:23 Normal [facility] FREE T4on 06-20-2022 Free T4 [Mass/Vol] 0.82 ng/dL Normal 0.76-1.46 [facility] Comment on above: Performed By: #### H H #### [facility] [address] [place] [address] Dr. Bella Jerome GLUCOSE - 1HRon 06-20-2022 Glucose [Mass/Vol] 127 mg/dL Critically high 74-106 T [facility] Comment on above: Performed By: #### H H #### [facility] [address] [place] [address] Dr. Bella Jerome HEMOGRAM AND PLATELon 2021 Hematocrit (Bld) [Volume fraction] 32.4 % Critically low 36.0-48.0 [facility] Comment on above: Performed By: #### H H #### [facility] [address] [place] [address] Dr. Bella Jerome Hemoglobin (Bld) [Mass/Vol] 10.9 g/dL Critically low 12.0-16.0 [facility] Comment on above: Performed By: #### H H #### [facility] [address] [place] [address] Dr. Bella Jerome MCH (RBC) [Entitic mass] 32.9 pg Normal 26.7-34.0 [facility] Comment on above: Performed By: #### H H #### [facility] [facility] [address] [place] [address] Dr. Bella Jerome MCHC (RBC) [Mass/Vol] 33.6 g/dL Normal 29.9-35.2 [facility] Comment on above: Performed By: #### H H #### [facility] [address] [place] [address] Dr. Bella Jerome MCV (RBC) [Entitic vol] 97.9 fL Normal 81.0-99.0 [facility] Comment on above: Performed By: #### H H #### [facility] [address] [place] [address] Dr. Bella Jerome PLT 241 103/ul Normal 150-450 [facility] Comment on above: Performed By: #### H H #### [facility] [address] [place] [address] Dr. Bella Jerome RBC 3.31 106/ul Critically low 4.20-5.40 [facility] Comment on above: Performed By: #### H H #### [facility] [address], [place] [address] Dr. Bella Jerome WBC 11.3 103/ul Critically high 4.0-11.0 [facility] Comment on above: Performed By: #### H H #### [facility] [address], [place] [address] Dr. Bella Jerome TSHon 06-20-2022 TSH 3.044 uIU/mL Normal 0.358-3.740 [facility] Comment on above: Performed By: #### C BC #### [facility] [address], [place] [address] Dr. Bella Jerome US PREG INCOMPLETE ANATOMYon 05-24-2022 US PREG INCOMPLETE ANATOMY EXAMINATION: US PREG INCOMPLETE ANATOMY HISTORY: screening COMPARISON: Ultrasound anatomy 04/26/2022 FINDINGS: Presentation: Cephalic Heart rate: 154 bpm Anatomy: Cervical, thoracic, and lumbar spine HERNANDO: 09/13/2022 IMPRESSION: 1. Adequate visualization of the cervical, thoracic, and lumbar spine; no appreciable abnormality. Electronically authenticated by: RAGINI SANTOS Date: 2022-05-24 17:33 Normal [facility] US PREG ANATOMY SINGLEon US PREG ANATOMY [...] by: MANUELITO GREGG Date: 2022-04-26 16:54 Normal [facility] CHLAMYDIA/GONOCOCCUS FAVIAN ( AB/URINE/PAPon 04-19-2022 Chlamydia trachomatis, FAVIAN Negative Normal Negative [facility] Comment on above: Performed By: #### C T/NGNA ####[facility] [id number] [place] [address]Dr. Bella Jerome Neisseria gonorrhoeae, FAVIAN Negative Normal Negative [facility] Comment on above: Performed By: #### C T/NGNA ####[facility] [id number] [place], [place] [address]Dr. Bella Jerome VAGINITIS/VAGINOSIS DNA PROB Leonid 04-18-2022 Jessica species Negative Normal Negative [facility] Comment on above: Performed By: #### H H #### [facility] [address] [place] [address] [address] Bella Jerome Gardnerella vaginalis Negative Normal Negative [facility] Comment on above: Performed By: #### H H #### [facility] [address] [place] [address] [address] Bella Jerome Trichomonas vaginalis Negative Normal Negative [facility] Comment on above: Performed By: #### H H #### [facility] [address] [place] [address] Dr. Bella Jerome FREE T4on 04-05-2022 Free T4 [Mass/Vol] 0.88 ng/dL Normal 0.76-1.46 [facility] Comment on above: Performed By: #### F T4 #### [facility] [address] [place] [address] Dr. Bella Jerome TSHon 04-05-2022 TSH 1.786 uIU/mL Normal 0.358-3.740 [facility] Comment on above: Performed By: #### T SH ####[facility] [id number] [place] [address]Dr. Bella Jerome TSH RANGE SEE BELOW Normal [facility] Comment on above: Result Comment: <0.3 4 UIU/ml HYPERTHYROID 0.34-5.60 UIU/ml EUTHYROID >5.60 UIU/ml HYPOTHYROID Performed By: #### T SH ####[facility] [id number] [place], [place] [address]Dr. Bella Jerome FREE T4on 02-26-2022 Free T4 [Mass/Vol] 1.06 ng/dL Normal 0.76-1.46 [facility] Comment on above: Performed By: #### C BC #### [facility] [address] [place] [address] Dr. Bella Jerome TSHon 02-26-2022 TSH 2.024 uIU/mL Normal 0.470-4.680 [facility] Comment on above: Performed By: #### C BC #### [facility] [address] [place] [address] Dr. Bella Jerome TSH RANGE SEE BELOW Normal [facility] Comment on above: Result Comment: <0.3 4 UIU/ml HYPERTHYROID 0.34-5.60 UIU/ml EUTHYROID >5.60 UIU/ml HYPOTHYROID Performed By: #### C BC #### [facility] [address] [place] [address] Dr. Bella Jerome Vital Signs Date Time Vital Sign Value Performing Clinician Facility 02-13-2024 11:24-040 Body height 160.02 cm [facility] 02-13-2024 11:24-040 Body mass index (BMI) [Ratio] 42.3 kg/m2 [facility] 02-13-2024 11:24 Body weight 108.49 kg [facility] 02-13-2024 11:24-0400 Diastolic blood pressure 70 mm[Hg] [facility] 02-13-2024 11:24-0400 Heart rate 69 /min [facility] 02-13-2024 11:24-0400 Respiratory rate 18 /min [facility] 02-13-2024 11:24-0400 SaO2% (BldA) [Mass fraction] 98 % [facility] 02-13-2024 11:24-0400 Systolic blood pressure 118 mm[Hg] [facility] 10-31-2023 15:00-0500 Body height 160.02 cm Sandra Austin Other [facility] [employer] Other 10-31-2023 15:00-0500 Body mass index (BMI) [Ratio] 45.41 kg/m2 Sandra Austin Other [facility] Other 10-31-2023 15:00-0500 Body temperature 98.5 [degF] Sandra Austin Other [facility] Other 10-31-2023 15:00-0500 Body weight 116.3 kg Sandra Austin Other [facility] Other 10-31-2023 15:00-0500 Diastolic blood pressure 80 mm[Hg] Sandra Austin Other [facility] Other 10-31-2023 15:00-0500 Respiratory rate 18 /min Sandra Austin Other [facility] Other 10-31-2023 15:00-0500 SaO2% (BldA) [Mass fraction] 98 % Sandra Austin Other [facility] Other 10-31-2023 15:00-0500 Systolic blood pressure 128 mm[Hg] Sandra Austin Other [facility] Other 06-24-2023 14:30-0400 Body height 160.02 cm Sandra Geovanna Other [facility] Other 06-24-2023 14:30-0400 Body mass index (BMI) [Ratio] 44.87 kg/m2 Sandra Geovanna Other [facility] Other 06-24-2023 14:30-0400 Body weight 114.9 kg Sandra Geovanna Other [facility] Other 06-24-2023 14:30-0400 Diastolic blood pressure 60 mm[Hg] Sandra Austin Other [facility] Other 06-24-2023 14:30-0400 Respiratory rate 18 /min Sandra Geovanna Other [facility] Other 06-24-2023 14:30-0400 SaO2% (BldA) [Mass fraction] 99 % Sandra Geovanna Other [facility] Other 06-24-2023 14:30-0400 Systolic blood pressure 110 mm[Hg] Sandra Austin Other [facility] Other 04-15-2023 09:25-0400 Body height 160.02 cm Ramonita Greenberg Other [facility] Other 04-15-2023 09:25-0400 Body mass index (BMI) [Ratio] 41.8 kg/m2 Ramonita Greenberg Other [facility] Other 04-15-2023 09:25-0400 Body temperature 98.5 [degF] Ramonita Greenberg Other [facility] Other 04-15-2023 09:25-0400 Body weight 107.05 kg Ramonita Greenberg Other [facility] Other 04-15-2023 09:25-0400 Respiratory rate 18 /min Ramonita Greenberg Other [facility] Other 04-15-2023 09:25-0400 SaO2% (BldA) [Mass fraction] 97 % Ramonita Greenberg Other [facility] Other 02-21-2023 14:45-0400 Body height 160.02 cm Sandra Austin Other [facility] Other 02-21-2023 14:45-0400 Body mass index (BMI) [Ratio] 41.39 kg/m2 Sandra Austin Other [facility] Other 02-21-2023 14:45-0400 Body weight 106.01 kg Sandra Austin Other [facility] Other 02-21-2023 14:45-0400 Diastolic blood pressure 60 mm[Hg] Sandra Austin Other [facility] Other 02-21-2023 14:45-0400 Respiratory rate 18 /min Sandra Austin Other [facility] Other 02-21-2023 14:45-0400 SaO2% (BldA) [Mass fraction] 98 % Sandra Austin Other [facility] Other 02-21-2023 14:45-0400 Systolic blood pressure 110 mm[Hg] Sandra Austin Other [facility] Other 12-24-2022 14:30-0500 Body height 160.02 cm Sandra Austin Other [facility] Other 12-24-2022 14:30-0500 Body mass index (BMI) [Ratio] 40.83 kg/m2 Sandra Austin Other [employer] Other 12-24-2022 14:30-0500 Body weight 104.55 kg Sandra Austin Other [facility] Other 12-24-2022 14:30-0500 Diastolic blood pressure 70 mm[Hg] Sandra Austin Other [facility] Other 12-24-2022 14:30-0500 Respiratory rate 18 /min Sandra Austin Other [facility] Other 12-24-2022 14:30-0500 SaO2% (BldA) [Mass fraction] 99 % Sandra Austin Other [facility] Other 12-24-2022 14:30-0500 Systolic blood pressure 118 mm[Hg] Sandra Austin Other [facility] Other 12-21-2021 16:30-0500 Body height 160.02 cm Sandra Austin Other [facility] Other 12-21-2021 16:30-0500 Body mass index (BMI) [Ratio] 38.58 kg/m2 Sandra Austin Other [facility] Other 12-21-2021 16:30-0500 Body temperature 97.3 [degF] Sandra Austin Other [employer] Other 12-21-2021 16:30-0500 Body weight 98.79 kg Sandra Austin Other [facility] Other 12-21-2021 16:30-0500 Diastolic blood pressure 60 mm[Hg] Sandar Austin Other [facility] Other 12-21-2021 16:30-0500 Respiratory rate 18 /min Sandra Austin Other [facility] Other 12-21-2021 16:30-0500 SaO2% (BldA) [Mass fraction] 99 % Sandra Austin Other [facility] Other 12-21-2021 16:30-0500 Systolic blood pressure 118 mm[Hg] Sandra Austin Other [employer] Other Encounters Encounter Date Encounter Type Care Provider Facility Start: 04-16-2024 End: 04-16-2024 ambulatory AGUS HANSA Not Available Start: 03-17-2024 End: 03-17-2024 ambulatory AGUS HANSA Not Available Start: 02-14-2024 End: 02-14-2024 ambulatory AGUS HANSA Not Available Start: 02-13-2024 End: 02-13-2024 ambulatory [facility] Work Phone: Start: 02-13-2024 End: 02-13-2024 Patient encounter procedure [facility] [place] Work Phone: Start: 12-16-2023 Non-patient / Non-visit [facility] [employer] Work Phone: Start: 12-16-2023 End: 12-16-2023 ambulatory AGUS SANTO Not Available Start: 10-31-2023 End: 10-31-2023 ambulatory Sandra Austin Other [facility] Other Start: 10-31-2023 Office outpatient vi sit 25 minutes Sandra Austin [facility] [place] Start: 07-19-2023 End: 07-19-2023 ambulatory Sandra Austin Other [facility] Other Start: 07-19-2023 Telephone encounter Sandra Guevara [facility] [place] Start: 06-24-2023 End: 06-24-2023 ambulatory Sandra Austin Other [facility] Other Start: 06-24-2023 Office outpatient vi sit 25 minutes Sandra Austin [facility] [place] Start: 06-04-2023 End: 06-04-2023 ambulatory Sandra Austin Other [facility] Other Start: 06-04-2023 Telephone encounter Sandra Guevara [facility] Start: 04-15-2023 End: 04-15-2023 ambulatory Ramonita Greenberg Other [facility] Other Start: 04-15-2023 Office outpatient vi sit 15 minutes Ramonita Greenberg [facility] [place] Start: 04-11-2023 End: 04-11-2023 ambulatory Sandra Austin Other [facility] Other Start: 04-11-2023 Telephone encounter Sandra Austin [facility] [place] Start: 02-21-2023 Office outpatient vi sit 25 minutes Sandra Austin [facility] Start: 02-21-2023 End: 02-22-2023 ambulatory SANDRA AUSTIN [facility] [employer] Other Start: 01-04-2023 End: 01-04-2023 ambulatory Sandra Austin Other [employer] Other Start: 01-04-2023 Telephone encounter Sandra Guevara [facility] Start: 12-30-2022 Encounter for genera l adult medical examination without abnormal findings SANDRA AUSTIN [facility] Start: 12-27-2022 End: 12-27-2022 ambulatory Sandra Austin Other [facility] Other Start: 12-27-2022 Telephone encounter Sandra Guevara [facility] Start: 12-26-2022 End: 12-27-2022 ambulatory SANDRA AUSTIN Facility:[facility] Start: 12-26-2022 End: 12-27-2022 Encounter for general adult medical examination without abnormal findings SANDRA AUSTIN Facility:[facility] Start: 12-24-2022 End: 12-24-2022 ambulatory Sandra Austin Other [facility] Other Start: 12-24-2022 Encounter for genera l adult medical examination without abnormal findings Sandra Austin [facility] Start: 12-24-2022 Periodic preventive med est patient 18-39 yrs Sandra Austin [facility] Start: 12-10-2022 End: 12-10-[address] AGUS [...] KAPLE Facility:[facility] Start: 08-21-2022 End: 08-22-2022 ambulatory SANDRAJADIEL AUSTIN Facility:[facility] Start: 08-17-2022 End: 08-17-2022 ambulatory VIRGINIA TORRES Facility:[facility] Start: 08-15-2022 End: 08-15-[address] AGUS SANTO . Facility:[facility] Start: 08-10-2022 End: 08-10-2022 ambulatory SANRDA KAPLE Facility:[facility] Start: 07-25-2022 End: 07-26-2022 ambulatory [...] 12-21-2021 End: 12-21-2021 ambulatory Sandra Kaple Other [email or web address] Other Start: 12-21-2021 Office outpatient ne w 45 minutes Sandra Austin [facility] Procedures Date Procedure Procedure Detail Performing Clinician [...] Patient Education Low back pain in adults [facility] Work Phone: Payers Date Payer Category Payer Unknown [id number] 2. [id number] 1997 Unknown [id number] 2.16.84 0.1.442737.3.579.2.593 1997 Unknown [id number] 2.16.84 0.1.879775.3.579.2.593 1997 Unknown [id number] 2.16.84 0.1.398815.3.579.2.593 1997 Unknown [id number] 2.16.84 0.1.340187.3.579.2.593 1997 Unknown [id number] 2.16.84 0.1.125443.3.579.2.593 1997 Unknown [id number] 2.16.84 0.1.576451.3.579.2.593 1997 Unknown [id number] 2.16.84 0.1.707830.3.579.2.593 1997 Unknown [id number] 2.16.84 0.1.762328.3.579.2.593 1997 Unknown [id number] 2.16.84 0.1.854943.3.579.2.593 1997 Unknown [id number] 2.16.84 0.1.000476.3.579.2.593 1997 Unknown [id number] 2.16.84 0.1.278469.3.579.2.593 1997 Unknown [id number] 2.16.84 0.1.904280.3.579.2.593 1997 Unknown [id number] 2.16.84 0.1.505748.3.579.2.593 1997 Unknown [id number] 2.16.84 0.1.811818.3.579.2.593 1997 Unknown [id number] 2.16.84 0.1.113531.3.579.2.593 1997 Unknown [id number] 2.16.84 0.1.721804.3.579.2.593 1997 Unknown [id number] 2.16.84 0.1.809396.3.579.2.593 1997 Unknown [id number] 2.16.84 0.1.780080.3.579.2.593 1997 Unknown [id number] 2.16.84 0.1.616749.3.579.2.593 1997 Unknown [id number] 2.16.84 0.1.987222.3.579.2.593 1997 Unknown [id number] 2.16.84 0.1.462090.3.579.2.593 1997 Unknown [id number] 2.16.84 0.1.342983.3.579.2.593 1997 Unknown [id number] 2.16.84 0.1.191057.3.579.2.593 1997 Unknown [id number] 2.16.84 0.1.925789.3.579.2.1259 1997 Unknown [id number] 2.16.84 0.1.481055.3.579.2.1259 1997 Unknown [id number] 2.16.84 0.1.382420.3.579.2.1259 1997 Unknown [id number] 2.16.84 0.1.668665.3.579.2.1259 1957 Medicaid [id number] 2. 16.840.1.345838.19 1957 Private Health Insurance [id number] 2.16.840.1.008537.19 Self-pay Self Pay [id number] Unknown [place] [id number] Social History Date Type Detail Facility Sex Assigned At [email or web address] Other Start: 1995 Sex Assigned At Female F [facility] Clinical Notes 12-21-2021 to 10-31-2023 Note Date [...] E28.2) She will continue to follow with OB-PLACING JUDGE and continue healthy lifestyle changes that she [...] course of antibiotic. Increase fluids and rest. [id number] antipyretics as needed. Warning signs and symptoms reviewed with patient today. Patient to go immediately to the ER should she experience any of these. Patient to notify office should her symptoms persist and not improve. Patient verbalizes understanding and agrees to treatment plan. [facility] Other 09-22-2023 Evaluation note* Encounter Date Diagnosis Assessment Notes Treatment Notes Treatment Clinical Notes Jun, Vitamin D insufficiency (ICD-10 - E55.9) [facility] Other 08-28-2023 Evaluation note* Encounter Date Diagnosis [...] E28.2) She will continue to follow with OB-PLACING JUDGE and continue healthy lifestyle changes that she [...] ENT today. Specialty notes reviewed as received. [facility] Other 08-08-2023 Evaluation note* Encounter Date Diagnosis Assessment Notes Treatment Notes Treatment Clinical Notes May, Other atopic dermatitis (ICD-10 - L20.89) May, Acute otitis externa of both ears, unspecified type (ICD-10 - H60.503) [facility] Other 06-19-2023 Evaluation note* Encounter Date Diagnosis [...] no improvement in 2 to 3 days [facility] Other 06-15-2023 Evaluation note* Encounter Date Diagnosis Assessment Notes Treatment Notes Treatment Clinical Notes Mar, Anxiety (ICD-10 - F41.9) [facility] Other 04-27-2023 Evaluation note* Encounter Date Diagnosis [...] plan on rechecking this at May appointment. [facility] Other 03-10-2023 Evaluation note* Encounter Date Diagnosis Assessment Notes Treatment Notes Treatment Clinical Notes Dec, Bacterial conjunctivitis (ICD-10 - H10.9) [facility] Other 03-02-2023 Evaluation note* Encounter Date Diagnosis Assessment Notes Treatment Notes Treatment Clinical Notes Dec, Vitamin D insufficiency (ICD-10 - E55.9) Dec, Elevated alkaline phosphatase level (ICD-10 - R74.8) Dec, Other specified hypothyroidism (ICD-10 - E03.8) [facility] Other 02-27-2023 Evaluation note* Encounter Date Diagnosis [...] ordered. Follow routinely with eye doctor, dentist, PLACING JUDGE. Patient is advised to work on healthy diet choices and appropriate servings, weight control, regular exercise as directed, reduced fat intake, and salt avoidance. Patient voiced understanding of this and agrees to this plan. Nov, PCOS (polycystic ovarian syndrome) (ICD-10 - E28.2) Routine lab work ordered. She will continue to follow with OB-PLACING JUDGE and continue healthy lifestyle changes that she [...] homicidal ideations. Started on Celexa by her PLACING JUDGE. Very stable on Celexa 20 mg daily. [...] her ears still persist after starting this. [facility] Other 02-24-2022 Evaluation note* Encounter Date Diagnosis Assessment Notes Treatment Notes Treatment Clinical Notes Nov, Prediabetes (ICD-10 - R73.03) She was recently dx with prediabetes and was started on Metformin 500 mg BID 2 weeks ago by her OB-PLACING JUDGE. She would like to follow with our [...] - E28.2) She is following with her OB-PLACING JUDGE for her PCOS and is currently on Metformin 500 mg BID and is taking medication to help her get . She will continue to follow with OB-PLACING JUDGE and continue healthy lifestyle changes that she [...] of fatigue, difficulty losing weight by her OB-PLACING JUDGE. She would like to start following with [...] of this and agrees to this plan. [facility] Other Evaluation note* Diagnosis Onset Date Resolution Status 8 weeks gestation of acute Low back pain [facility] Work Phone: History general Narrative - Reported* Type Description Date Medical History PCOS Medical History THYROID ISSUES Surgical History THIRD NIPPLE REMOVED Surgical History Colonoscopy-normal 2018 [facility] Other Summary Purpose Family History No Family [...] Right ear pain (H92. 01) Referral Organization [facility] Family Gonzales Hernandez Referring Provider First Name [...] content) EST CARE1 year Follow up, hg [id number] resultspink eyepossible mastitisstrep throatanxietyear gtts6 month Follow uprefill4 month Follow up, hgba1c INFORMATION SOURCE (unrecogn ized section and content) DATE CREATED AUTHOR 02/25/2023 [facility] DATE CREATED AUTHOR 'S ORGANIZ ATION 04/17/2024 [facility] dical Specialists EPIC Care Teams (unrecognized sec [...] BE BASED ON THE PRIMARY CLINICAL RECORDS. [facility] [employer] [facility]. provides no warranty or guarantee of the accuracy or completeness of information in this document.
== END 2024-05-12 08:30 | disposition home or self-care (01) ==
LOC: NOMS 08:29
PROVIDERS: PCP Nurse Practitioner Family; Visit Provider Obstetrics & Gynecology
DX: Z36.89 Encounter for other specified antenatal screening (principal); Z3A.20 20 weeks gestation of pregnancy
CPT/HCPCS: 76805; 76817

== ENCOUNTER 2024-07-02 08:14 | Outpatient (OUT) | payer OTHER, SELFPAY ==
[2024-07-02 09:53] LABS: Basophils Percent Auto 0.1 % (0.2-2.0); Eosinophils Absolute Auto 0.1 10^3/uL (0.0-0.7); Eosinophils Percent Auto 0.6 % (0.9-7.0); Hematocrit 33.1 % (36.0-48.0); Hemoglobin 11.2 g/dL (12.0-16.0); Immature Granulocytes Abs Auto 0.06 10^3/uL (0.00-0.03); Immature Granulocytes Pct Auto 0.6 % (0.0-0.5); Lymphocytes Percent Auto 20.6 % (20.5-60.0); Mean Corpuscular HGB Conc 33.8 g/dL (29.9-35.2); Mean Corpuscular Hemoglobin 32.5 pg (26.7-34.0); Mean Corpuscular Volume 95.9 fL (81.0-99.0); Mean Platelet Volume 11.5 fL (9.5-13.5); Monocytes Absolute Auto 0.4 10^3/uL (0.3-0.8); Monocytes Percent Auto 4.1 % (1.7-12.0); Platelet Count 254 10^3/uL (150-450); Red Blood Count 3.45 10^6/uL (4.20-5.40); Red Cell Distribution Width 13.2 % (11.0-15.0); White Blood Count 9.5 10^3/uL (4.0-11.0)
[2024-07-02 10:13] LABS: Glucose 1 Hour 133 mg/dL (<130); Thyroid Stimulating Hormone 1.731 uIU/mL (0.358-3.740)
== END 2024-07-02 08:15 | disposition home or self-care (01) ==
LOC: LAB 08:14
PROVIDERS: PCP Nurse Practitioner Family; Visit Provider Obstetrics & Gynecology
DX: E07.9 Disorder of thyroid, unspecified (principal); Z13.1 Encounter for screening for diabetes mellitus; O99.280 Endocrine, nutritional and metabolic diseases complicating pregnancy, unspecified trimester
CPT/HCPCS: 36415; 82950; 84443; 85025

== ENCOUNTER 2024-07-07 08:28 | Outpatient (OUT) | payer OTHER, SELFPAY ==
--- NOTE | 2024-07-07 08:30 | US_ITS ---
[place] [id number] Patient Name: SOFIA ZEPEDA MRN: [id number] date: 1995 Sex: F Assigned Patient Location: [facility] Current Patient Location: [facility] Accession/Order Number: [id number] Exam Date: 07/07/2024 08:30 Report Date: 07/07/2024 12:45 At the request of: AGUS SANTO Procedure: US OB growth EXAMINATION: US OB growth HISTORY: ABNORMAL TSH COMPARISON: Ultrasound OB anatomy 05/12/2024 FINDINGS: Heart Rate: 129 bpm Amniotic Fluid Volume: 14.1 cm; normal range. Number: 1 Position: VARIABLE BIOMETRY: BPD: 7.06 cm; 28 weeks 2 days; 30.60 % HC: 26.94 cm; 29 weeks 3 days; 41.80 % AC: 25.30 cm; 29 weeks 3 days; 71.20 % FL: 5.38 cm; 28 weeks 4 days; 32.70 % EFW: 1299.98 g; 56.40 % FL/AC: 21.26 FL/BPD: 76.20 HC/AC: 1.06 GESTATIONAL AGE: Age by EDC: 20 weeks 4 days HERNANDO by EDC: 2024-09-25 Age by US: 29 weeks 0 days HERNANDO by US: 2024-09-22 US/US OB growth IMPRESSION: 1. Single live intrauterine with growth detailed above. Electronically authenticated by: RAGINI SANTOS Date: 07/07/2024 12:45
--- OUTSIDE RECORDS SUMMARY | 2024-07-07 08:51 | XMS_ITS | CCD ---
Author Organization [facility] Care Team Providers Care Forestry Worker Name Role Phone [facility] Unavailable KAP, SANDRA Primary Care Unavailable HANSA ., DR GOLDSMITH Attending Unavailable WEST, DR MANEULITO Foley Consulting Unavailable HANSA ., DR GOLDSMITH Admitting Unavailable HANSA ., DR GOLDSMITH Consulting Unavailable BRIAN, VIGRINIA Admitting Unavailable VIRGINIA TORRES Attending Unavailable KAP, [...] Unavailabl e JODIE ., DR HU Consulting [facility] [place], DR MANUELITO Foley Consulting Unavailable HANSA ., DR GOLDSMITH Consulting Unavailable SANDRA AUSTIN Primary Care Unavailable HANSA ., DR GOLDSMITH Attending Unavailable [place], DR MANUELITO Foley Consulting Unavailable HANSA ., DR GOLDSMITH Admitting Unavailable HANSA ., DR GOLDSMITH Consulting Unavailable Ramonita Greenberg Unavailable AGUS SANTO Attending Unavailable HANSA, AGUS Attending Unavailable HANSA, AGUS Attending Unavailable ENDY RPIEST Attending Unavailable HANSA, AGUS Attending Unavailable Medications Current Medications Medication Drug [...] hours February 13, 2024 12:00am polymyxin b 74128 unt/ml / trimethoprim 1 mg/ml ophthalmic solution (3 sources) Dihydrofolate Reductase Inhibitor Antibacterial, Polymyxin-class Antibacterial Start: 01-05-20 Polymyxin B-Trimethoprim 29894-7.1 UNIT/ML 1 drop into affected eye Ophthalmic [...] acid 7540 MG / polyethylene glycol 3350 87999 MG / potassium chloride 1200 MG / sodium ascorbate 16067 MG / sodium chloride 3200 MG Powder for Oral Solution) / 1 (polyethylene glycol 3350 739097 MG / potassium chloride 1000 MG / [...] DNA Probe+sig amp Ql (Cvx) Note . [facility] Comment on above: TESTS RESULT FLAG UN ITS REF RANGE LAB DI AGNOSIS: 02 NEGATIVE FOR INTRAEPITHELIAL LESION OR MALIGNANCY.Specimen adequacy: 02 Satisfactory for evaluation. Endocervical and/or squamous metaplastic cells (endocervical component) are present.Performed by: 02 Raeann Duran, [place] Boss (ASCP). 02Note: Note 02 The Pap smear is a screening test designed to aid in the detection of premalignant and malignant conditions of the uterine cervix. It is not a diagnostic procedure and should not be used as the sole means of detecting cervical cancer. Both false-positive and false-negative reports do occur.Test Methodology: Note 02 The [place](R[employer] Nuisance Wildlife Specialist was unable to read this specimen. Therefore a manual review was performed. ----- FLAG LEGEND: L-Low Normal,H-High Normal,LL-Alert Low,HH-Alert High <-Panic Low,>-Panic High,A-Abnormal,AA-Critical Abnormal ---Performed at:[address] [place] [address] Heavenly Serrano MD, . 02 The HPV DNA reflex criteria were not met with this specimen result therefore, no HPV testing was performed.The HPV DNA reflex criteria were not met with this specimenresult therefore, no HPV testing was performed.Performed at: =[facility] [place], [place] [id number] Director: Heavenly Serrano MD, Phone: [phone] at: - [facility] [id number] Director: Heavenly Serrano MD, Phone: [phone] No Panel Informationon 12-16 Reference Lab Test Patient Age Note . [facility] Comment on above: TESTS RESULT FLAG UN ITS REF RANGE LAB Clinician Provided Cytology Information Source.............Cervix No. of containers..01 ThinPrep VialAge Algo ACOG Leslye... FLAG LEGEND: L-Low Normal,H-High Normal,LL-Alert Low,HH-Alert High <-Panic Low,>-Panic High,A-Abnormal,AA-Critical Abnormal ---Performed at:01 =G [facility] [address] [facility] [place] [address] Heavenly Serrano MD, A1C HEMOGLOBINon 10-31-2023 HbA1c (Bld) [Mass fraction] 5.8 % [employer] Other HbA1c (Bld) [Mass fraction]o n 10-31-2023 A1C HEMOGLOBIN [employer] Other A1C HEMOGLOBINon 06-24-2023 HbA1c (Bld) [Mass fraction] 5.2 % [employer] Other HbA1c (Bld) [Mass fraction]o n 06-24-2023 A1C HEMOGLOBIN [employer] Other Quick Strepon 04-15-2023 S. pyogenes Org specific cx Ql (Throat) Positive [employer] Other Quick Strep [employer] Other FREE T4on 02-21-2023 Free T4 [Mass/Vol] 0.89 ng/dL Normal 0.76-1.[address] [facility] Comment on above: Performed By: #### H H #### [facility] [address] [place] [address] Dr. Bella Jerome PROF 14(COMP METB)on 023 Albumin [Mass/Vol] 3.7 g/dL Normal 3.4-5.[address] [facility] Comment on above: Performed By: #### H H #### [facility] [address] [place] [address] Dr. Bella Jerome Albumin/Globulin [Mass ratio] 0.9 {ratio} Normal [facility] Comment on above: Performed By: #### H H #### [facility] [address] [place] [address] Dr. Bella Jerome ALP [Catalytic activity/Vol] 132 U/L Critically high 46-116 [facility] Comment on above: Performed By: #### H H #### [facility] [address] [place] [address] Dr. Bella Jerome ALT [Catalytic activity/Vol] 32 U/L Normal 14-59 [facility] Comment on above: Performed By: #### H H #### [facility] [address] [place] [address] Dr. Bella Jerome Anion gap [Moles/Vol] 12.8 mmol/L Normal [facility] Comment on above: Performed By: #### H H #### [facility] [address] [place] [address] Dr. Bella Jerome AST [Catalytic activity/Vol] 23 U/L Normal 15-37 [facility] Comment on above: Performed By: #### H H #### [facility] [address] [place] [address] Dr. Bella Jerome Bilirubin [Mass/Vol] 0.6 mg/dL Normal 0.2-1.0 [facility] Comment on above: Performed By: #### H H #### [facility] [address] [place] [address] Dr. Bella Jerome Calcium [Mass/Vol] 9.0 mg/dL Normal 8.5-10.[address] [facility] Comment on above: Performed By: #### H H #### [facility] [address] [place] [address] Dr. Bella Jerome Chloride [Moles/Vol] 102 mmol/L Normal 98-107 [facility] Comment on above: Performed By: #### H H #### [facility] [address] [place] [address] Dr. Bella Jerome CO2 [Moles/Vol] 28.2 mmol/L Normal 21.0-32.0 [facility] Comment on above: Performed By: #### H H #### [facility] [address] [place] [address] Dr. Bella Jerome Creatinine [Mass/Vol] 0.67 mg/dL Normal 0.55-1.02 [facility] Comment on above: Performed By: #### H H #### [facility] [address] [place] [address] Dr. Bella Jerome EGFR-AF SPANISH >60 Normal >=60 [facility] Comment on above: Performed By: #### H H #### [facility] [address] [place] [address] Dr. Bella Jerome EGFR-NON AF SPANISH >60 Normal >=60 [facility] Comment on above: Performed By: #### H H #### [facility] [address] [address] [address] Bella Jerome Globulin (S) [Mass/Vol] 4.2 g/dL Normal [facility] Comment on above: Performed By: #### H H #### [facility] [address] [address] [address] Bella Jerome Glucose [Mass/Vol] 88 mg/dL Normal 74-[address] [facility] Comment on above: Performed By: #### H H #### [facility] [address] [address] [address] Bella Jerome Potassium [Moles/Vol] 4.0 mmol/L Normal 3.5-5.1 [facility] Comment on above: Performed By: #### H H #### [facility] [address] [place] [address] Dr. Bella Jerome Protein [Mass/Vol] 7.9 g/dL Normal 6.4-8.[address] [facility] Comment on above: Performed By: #### H H #### [facility] [address] [place] [address] Dr. Bella Jerome Sodium [Moles/Vol] 139 mmol/L Normal 136-[address] [facility] Comment on above: Performed By: #### H H #### [facility] [address] [place] [address] Dr. Bella Jerome Urea nitrogen [Mass/Vol] 12.0 mg/dL Normal 7.0-18.0 [facility] Comment on above: Performed By: #### H H #### [facility] [address] [place] [address] Dr. Bella Jerome Urea nitrogen/Creatinine [Mass ratio] 17.9 mg/mg Normal [facility] Comment on above: Performed By: #### H H #### [facility] [address] [place] [address] Dr. Bella Jerome TSHon 02-21-2023 TSH 2.463 uIU/mL Normal 0.358-3.740 [facility] Comment on above: Performed By: #### H H #### [facility] [address] [place] [address] Dr. Bella Jerome VITAMIN D 25 OHon 02-21-2023 VIT D 25-OH 23.1 ng/mL Normal [facility] Comment on above: Performed By: #### H H #### [facility] [address] [place] [address] Dr. Bella Jerome VIT D RANGES SEE BELOW Normal [facility] Comment on above: Result Comment: <20 ng/mL Vit D deficient 20 - <30 ng/mL Vit D insufficient 30 - 100 ng/mL Vit D sufficient >100 ng/mL Potential Toxicity Performed By: #### H H #### [facility] [address] [place] [address] Dr. Bella Jerome CBC AUTO DIFFon 12-26-2022 BASO # 0.0 103/ul Normal 0.0-0.1 [facility] Comment on above: Performed By: #### C BC #### [facility] [address] [place] [address] Dr. Bella Jerome Basophils/100 WBC (Bld) 0.3 % Normal 0.2-2.0 [facility] Comment on above: Performed By: #### C BC #### [facility] [address] [place] [address] Dr. Bella Jerome EO # 0.1 103/ul Normal 0.0-0.7 [facility] Comment on above: Performed By: #### C BC #### [facility] [address] [place] [address] Dr. Bella Jerome Eosinophils/100 WBC (Bld) 1.6 % Normal 0.9-7.0 [facility] Comment on above: Performed By: #### C BC #### [facility] [address] [place] [address] Dr. Bella Jerome Erythrocyte distribution width (RBC) [Ratio] 12.7 % Normal 11.0-15.0 [facility] Comment on above: Performed By: #### C BC #### [facility] [address] [place] [address] Dr. Bella Jerome Hematocrit (Bld) [Volume fraction] 37.2 % Normal 36.0-48.0 [facility] Comment on above: Performed By: #### C BC #### [facility] [address] [place] [address] Dr. Bella Jerome Hemoglobin (Bld) [Mass/Vol] 12.5 g/dL Normal 12.0-16.0 [facility] Comment on above: Performed By: #### C BC #### [facility] [address] [place] [address] Dr. Bella Jerome IG # 0.02 10e3/ul Normal 0.00-0.03 [facility] Comment on above: Performed By: #### C BC #### [facility] [address] [place] [address] Dr. Bella Jerome IG % 0.3 % Normal 0.0-0.5 [facility] Comment on above: Performed By: #### C BC #### [facility] [address] [place] [address] Dr. Bella Jerome LYMPH # 2.3 103/ul Normal 1.2-3.8 [facility] Comment on above: Performed By: #### C BC #### [facility] [address] [place] [address] Dr. Bella Jerome Lymphocytes/100 WBC (Bld) 34.1 % Normal 20.5-60.0 [facility] Comment on above: Performed By: #### C BC #### [facility] [address] [place] [address] Dr. Bella Jerome MANUAL DIFF REQ NO Normal [facility] Comment on above: Performed By: #### C BC #### [facility] [address] [place] [address] Dr. Bella Jerome MCH (RBC) [Entitic mass] 30.9 pg Normal 26.7-34.0 [facility] Comment on above: Performed By: #### C BC #### [facility] [address] [place] [address] Dr. Bella Jerome MCHC (RBC) [Mass/Vol] 33.6 g/dL Normal 29.9-35.2 [facility] Comment on above: Performed By: #### C BC #### [facility] [address] [place] [address] Dr. Bella Jerome MCV (RBC) [Entitic vol] 91.9 fL Normal 81.0-99.0 [facility] Comment on above: Performed By: #### C BC #### [facility] [address] [place] [address] Dr. Bella Jerome MONO # 0.4 103/ul Normal 0.3-0.8 [facility] Comment on above: Performed By: #### C BC #### [facility] [address] [place] [address] Dr. Bella Jerome Monocytes/100 WBC (Bld) 5.1 % Normal 1.7-12.0 [facility] Comment on above: Performed By: #### C BC #### [facility] [address] [place] [address] Dr. Bella Jerome NEUT # 4.0 103/ul Normal 1.4-6.5 [facility] Comment on above: Performed By: #### C BC #### [facility] [address] [place] [address] Dr. Bella Jerome Neutrophils/100 WBC (Bld) 58.6 % Normal 43.0-75.0 [facility] Comment on above: Performed By: #### C BC #### [facility] [address] [place] [address] Dr. Bella Jerome Platelet mean volume (Bld) [Entitic vol] 11.5 fL Normal 9.5-13.5 [facility] Comment on above: Performed By: #### C BC #### [facility] [address] [place] [address] Dr. Bella Jerome PLT 243 103/ul Normal 150-450 [facility] Comment on above: Performed By: #### C BC #### [facility] [address] [place] [address] Dr. Bella Jerome RBC 4.05 106/ul Critically low 4.20-5.40 [facility] Comment on above: Performed By: #### C BC #### [facility] [address] [address] [address] Bella Jerome WBC 6.8 103/ul Normal 4.0-11.0 [facility] Comment on above: Performed By: #### C BC #### [facility] [address] [address] [address] Bella Jerome FREE T4on 12-26-2022 Free T4 [Mass/Vol] 1.05 ng/dL Normal 0.76-1.46 [facility] Comment on above: Performed By: #### F T4, VITAD, B12FOL, IRON ####[facility] [id number] [address] Bella Jerome GLYCOHEMOGLOBIN A1Con 2022 ADA RECOMMENDATION SEE BELOW Normal [facility] Comment on above: Result Comment: ADA RECOMMENDED LIMIT 4.0 - 6.0 ADA THERAPEUTIC TARGET < 7.0 ACTION SUGGESTED > 7.0 Performed By: #### A 1C #### [facility] [address] [address] [address] Bella Jerome Glucose [Mass/Vol] 103 mg/dL Normal [facility] Comment on above: Performed By: #### A 1C #### [facility] [address] [address] [address] Bella Jerome HbA1c (Bld) [Mass fraction] 5.2 % Normal 4.5-6.2 [facility] Comment on above: Performed By: #### A 1C #### [facility] [address] [address] [address] Bella Jerome IRONon 12-26-2022 Iron [Mass/Vol] 74.0 ug/dL Normal 50.0-170.0 [facility] Comment on above: Performed By: #### F T4, VITAD, B12FOL, IRON ####[facility] [id number] [address] Bella Jerome LIPID PROFILEon 12-26-2022 CHOL-HDL RATIO NORM SEE BELOW Normal [facility] Comment on above: Result Comment: 3.3 - 4.4 LOW RISK 4.4 - 7.1 AVERAGE RISK 7.1 - 11.0 MODERATE RISK >11.0 HIGH RISK Performed By: #### C MP, TSH, LIPID #### [facility] [address] [address] [address] Bella Jerome Cholesterol [Mass/Vol] 153 mg/dL Normal <=200 [facility] Comment on above: Performed By: #### C MP, TSH, LIPID #### [facility] [address] [address] [address] Bella Jerome Cholesterol in HDL [Mass/Vol] 67 mg/dL Critically high 40-60 [facility] Comment on above: Performed By: #### C MP, TSH, LIPID #### [facility] [address] [place] [address] Dr. Bella Jerome Cholesterol in LDL [Mass/Vol] 77.2 mg/dL Normal [facility] Comment on above: Performed By: #### C MP, TSH, LIPID #### [facility] [address] [place] [address] Dr. Bella Jerome Cholesterol.total/Ch olesterol in HDL [Mass ratio] 2.3 {ratio} Normal [facility] Comment on above: Performed By: #### C MP, TSH, LIPID #### [facility] [address] [place] [address] Dr. Bella Jerome HDL NORMAL > or = 60 mg/dl - LOW CARDIOVASCULAR RISK <40 mg/dl - HIGH CARDIOVASCULAR RISK Normal [facility] Comment on above: Performed By: #### C MP, TSH, LIPID #### [facility] [address] [place] [address] Dr. Bella Jerome LDL CALC NORMAL SEE BELOW Normal [facility] Comment on above: Result Comment: <100 mg/dl OPTIMAL 100 - 129 mg/dl NEAR OR ABOVE OPTIMAL 130 - 159 mg/dl BORDERLINE HIGH 160 - 189 mg/dl HIGH >190 mg/dl VERY HIGH Performed By: #### C MP, TSH, LIPID #### [facility] [address] [address] [address] Bella Jerome Triglyceride [Mass/Vol] 44 mg/dL Normal <=150 [facility] Comment on above: Performed By: #### C MP, TSH, LIPID #### [facility] [address] [address] [address] Bella Jerome VLDL CALC 8.8 mg/dL Normal [facility] Comment on above: Performed By: #### C MP, TSH, LIPID #### [facility] [address] [address] [address] Bella Jerome MICROALB CREAT RATIO RANDOMo n 12-26-2022 mALB 2.3 mg/L Normal <=30.0 [facility] Comment on above: Performed By: #### H H #### [facility] [address] [place] [address] Dr. Bella Jerome MALB CR RATIO 17.4 mg/g Normal 0.0-29.9 [facility] Comment on above: Performed By: #### H H #### [facility] [address] [address] [address] Bella Jerome MALB CR RATIO RANGE SEE BELOW Normal [facility] Comment on above: Result Comment: NO M ICROALBUMINURIA 0-29 MG/G CLINICAL MICROALBUMINURIA 30-300 MG/G MACROALBUMINURIA >300 MG/G Performed By: #### H H #### [facility] [address] [place] [address] Dr. Bella Jerome URINE CREAT 131.90 mg/dL Normal 20.00-300.00 [facility] Comment on above: Performed By: #### H H #### [facility] [address] [place] [address] Dr. Bella Jerome PROF 14(COMP METB)on 023 Albumin [Mass/Vol] 4.1 g/dL Normal 3.4-5.[address] [facility] Comment on above: Performed By: #### C MP, TSH, LIPID #### [facility] [address] [address] [address] Bella Jerome Albumin/Globulin [Mass ratio] 1.3 {ratio} Normal [facility] Comment on above: Performed By: #### C MP, TSH, LIPID #### [facility] [address] [address] [address] Bella Jerome ALP [Catalytic activity/Vol] 124 U/L Critically high 46-116 [facility] Comment on above: Performed By: #### C MP, TSH, LIPID #### [facility] [address] [address] [address] Bella Jerome ALT [Catalytic activity/Vol] 16 U/L Normal 14-59 [facility] Comment on above: Performed By: #### C MP, TSH, LIPID #### [facility] [address] [address] [address] Bella Jerome Anion gap [Moles/Vol] 13.4 mmol/L Normal [facility] Comment on above: Performed By: #### C MP, TSH, LIPID #### [facility] [address] [place] [address] Dr. Bella Jerome AST [Catalytic activity/Vol] 17 U/L Normal 15-37 [facility] Comment on above: Performed By: #### C MP, TSH, LIPID #### [facility] [address] [address] [address] Bella Jerome Bilirubin [Mass/Vol] 0.8 mg/dL Normal 0.2-1.0 [facility] Comment on above: Performed By: #### C MP, TSH, LIPID #### [facility] [address] [place] [address] Dr. Bella Jerome Calcium [Mass/Vol] 8.9 mg/dL Normal 8.5-10.[address] [facility] Comment on above: Performed By: #### C MP, TSH, LIPID #### [facility] [address] [address] [address] Bella Jerome Chloride [Moles/Vol] 103 mmol/L Normal 98-107 [facility] Comment on above: Performed By: #### C MP, TSH, LIPID #### [facility] [address] [address] [address] Bella Jerome CO2 [Moles/Vol] 25.6 mmol/L Normal 21.0-32.0 [facility] Comment on above: Performed By: #### C MP, TSH, LIPID #### [facility] [address] [address] [address] Bella Jerome Creatinine [Mass/Vol] 0.55 mg/dL Normal 0.55-1.02 [facility] Comment on above: Performed By: #### C MP, TSH, LIPID #### [facility] [address] [address] [address] Bella Jerome EGFR-AF SPANISH >60 Normal >=60 [facility] Comment on above: Performed By: #### C MP, TSH, LIPID #### [facility] [address] [address] [address] Bella Jerome EGFR-NON AF SPANISH >60 Normal >=60 [facility] Comment on above: Performed By: #### C MP, TSH, LIPID #### [facility] [address] [address] [address] Bella Jerome Globulin (S) [Mass/Vol] 3.1 g/dL Normal [facility] Comment on above: Performed By: #### C MP, TSH, LIPID #### [facility] [address] [address] [address] Bella Jerome Glucose [Mass/Vol] 82 mg/dL Normal 74-106 [facility] Comment on above: Performed By: #### C MP, TSH, LIPID #### [facility] [address] [address] [address] Bella Jerome Potassium [Moles/Vol] 4.0 mmol/L Normal 3.5-5.1 [facility] Comment on above: Performed By: #### C MP, TSH, LIPID #### [facility] [address] [address] [address] Bella Jerome Protein [Mass/Vol] 7.2 g/dL Normal 6.4-8.2 [facility] Comment on above: Performed By: #### C MP, TSH, LIPID #### [facility] [address] [address] [address] Bella Jerome Sodium [Moles/Vol] 138 mmol/L Normal 136-145 The [facility] Comment on above: Performed By: #### C MP, TSH, LIPID #### [facility] [address] [address] [address] Bella Jerome Urea nitrogen [Mass/Vol] 14.0 mg/dL Normal 7.0-18.0 [facility] Comment on above: Performed By: #### C MP, TSH, LIPID #### [facility] [address] [address] [address] Bella Jerome Urea nitrogen/Creatinine [Mass ratio] 25.5 mg/mg Normal [facility] Comment on above: Performed By: #### C MP, TSH, LIPID #### [facility] [address] [address] [address] Bella Jerome TSHon 12-26-2022 TSH 0.224 uIU/mL Critically low 0.358-3.740 [facility] Comment on above: Performed By: #### C MP, TSH, LIPID #### [facility] [address] [address] [address] Bella Jerome VIT B12 AND FOLATEon 023 Cobalamin (Vitamin B12) [Mass/Vol] 702.0 pg/mL Normal 193.0-986.0 [facility] Comment on above: Performed By: #### F T4, VITAD, B12FOL, IRON ####[facility] [address] [id number]. Bella Jerome FOLATE 25.10 ng/mL Normal 8.60-58.90 [facility] Comment on above: Performed By: #### F T4, VITAD, B12FOL, IRON ####[facility] [address] [place], [place] [address]RzWill Jerome VITAMIN D 25 OHon 12-26-2022 VIT D 25-OH 25.4 ng/mL Normal The [facility] Comment on above: Performed By: #### F T4, VITAD, B12FOL, IRON ####[facility] [address] [id number] Jerome VIT D RANGES SEE BELOW Normal [facility] Comment on above: Result Comment: <20 ng/mL Vit D deficient 20 - <30 ng/mL Vit D insufficient 30 - 100 ng/mL Vit D sufficient >100 ng/mL Potential Toxicity Performed By: #### F T4, VITAD, B12FOL, IRON ####[facility] [address] [address]Dr. Bella Jerome PAP ACOG PANEL 2: 21 to 29on 12-18-2022 . . Normal [facility] Comment on above: Performed By: #### C BC #### [facility] [address] [address] [address] Bella Jerome Age Gdln ACOG Testing - [facility] Comment on above: Performed By: #### C BC #### [facility] [address] [address] [address] Bella Jerome DIAGNOSIS: Comment [facility] Comment on above: Result Comment: NEGA TIVE FOR INTRAEPITHELIAL LESION OR MALIGNANCY. Performed By: #### C BC #### [facility] [address] [address] [address] Bella Jerome Methodology: Comment [facility] Comment on above: Result Comment: This liquid based ThinPrep(R) pap test was screened with the use of an image guided system. Performed By: #### C BC #### [facility] [address] [address] [address] Bella Jerome Note: Comment [facility] Comment on above: Result Comment: The Pap smear is a screening test designed to aid in the detection of premalignant and malignant conditions of the uterine cervix. It is not a diagnostic procedure and should not be used as the sole means of detecting cervical cancer. Both false-positive and false-negative reports do occur. . Performed By: #### C BC #### [facility] [id number] Bella Jerome Performed by: Comment Normal [facility] Comment on above: Result Comment: Byron Irby, Hoeing Row Boss (ASCP) Performed By: #### C BC #### [facility] [address] [address] [address] Bella Jerome Reflex Criteria: Comment Normal [facility] Comment on above: Result Comment: The HPV DNA reflex criteria were not met with this specimen result therefore, no HPV testing was performed. . Performed By: #### C BC #### [facility] [address] [place] [address] Dr. Bella Jerome Specimen adequacy: Comment Normal The [facility] Comment on above: Result Comment: Sati sfactory for evaluation. Endocervical and/or squamous metaplastic cells (endocervical component) are present. Performed By: #### C BC #### [facility] [address] [address] [address] Bella Jerome CBC W MANUAL DIFFon 09-07-20 22 ATYPICAL LYMPH # Normal [facility] Comment on above: Performed By: #### C YOONMAN ####[facility] [address] [address]Dr. Bella Jerome ATYPICAL LYMPH % Normal [facility] Comment on above: Performed By: #### C YOONMAN ####[facility] [address] [address]Dr. Bella Jerome BAND # 0.2 103/ul Normal 0.0-0.3 The [facility] Comment on above: Performed By: #### C YOONMAN ####[facility] [address] [address]Dr. Bella Jerome BAND % 1 % Normal 0-5 The [facility] Comment on above: Performed By: #### C BCMAN ####[facility] [address] [address]Dr. Bella Jerome BASOM # 0.00 103/ul Normal 0.00-0.10 The [facility] Comment on above: Performed By: #### C BCMAN ####[facility] [address] [address]Dr. Bella Jerome BASOM % 0.0 % Critically low 0.2-2.0 The [facility] Comment on above: Performed By: #### C YOONMAN ####[facility] [address] [place], [place] [address]Dr. Bella Jerome BLAST # Normal [facility] Comment on above: Performed By: #### C BCRELL ####[facility] [address] [id number]. Bella Jerome BLAST % Normal [facility] Comment on above: Performed By: #### C BCRELL ####[facility] [address] [id number]. Bella Jerome CORRECTED WBC Normal 4.0-11.0 [facility] Comment on above: Performed By: #### C BCRELL ####[facility] [address] [id number]. Bella Jerome EOS # 0.00 103/ul Normal 0.00-0.70 [facility] Comment on above: Performed By: #### C PEDRO ####[facility] [address] [address]Dr. Bella Jerome EOS% 0.0 % Critically low 0.9-7.0 [facility] Comment on above: Performed By: #### C PEDRO ####[facility] [address] [address]Dr. Bella Jerome HCT 30.5 % Critically low 36.0-48.0 [facility] Comment on above: Performed By: #### C PEDRO ####[facility] [address] [place], [place] [address]Dr. Bella Jerome HGB 10.5 g/dl Critically low 12.0-16.0 The [facility] Comment on above: Performed By: #### C BCRELL ####[facility] [address] [id number]. Bella Jerome LYMPHM # 2.78 103/ul Normal 1.20-3.80 The [facility] Comment on above: Performed By: #### C BCRELL ####[facility] [address] [place], [place] [address]Dr. Bella Jerome LYMPHM% 13.0 % Critically low 20.5-60.0 The [facility] Comment on above: Performed By: #### C BCRELL ####[facility] [address] [id number]. Bella Jerome MCH 32.8 pg Normal 26.7-34.0 The [facility] Comment on above: Performed By: #### C PEDRO ####[facility] [address] [id number]. Bella Jerome MCHC 34.4 g/dl Normal 29.9-35.2 The [facility] Comment on above: Performed By: #### C PEDRO ####[facility] [address] [id number]. Bella Jerome MCV 95.3 fL Normal 81.0-99.0 The [facility] Comment on above: Performed By: #### C PEDRO ####[facility] [address] [id number]. Bella Jerome METAMYELOCYTE # Normal [facility] Comment on above: Performed By: #### Jennifer VASQUEZ ####[facility] [address] [id number]. Bella Jerome METAMYELOCYTE % Normal [facility] Comment on above: Performed By: #### Jennifer VASQUEZ ####[facility] [address] [id number]. Bella Jerome MONOM# 2.35 103/ul Critically high 0.30-0.80 [facility] Comment on above: Performed By: #### Jennifer VASQUEZ ####[facility] [address] [id number]. Bella Jerome MONOM% 11.0 % Normal 1.7-12.0 The [facility] Comment on above: Performed By: #### Jennifer VASQUEZ ####[facility] [address] [id number]. Bella Jerome MPV 11.1 fL Normal 9.5-13.5 The [facility] Comment on above: Performed By: #### C PEDRO ####[facility] [address] [id number]. Bella Jerome MYELOCYTE # Normal The [facility] Comment on above: Performed By: #### C PEDRO ####[facility] [address] [place], [place] [address]Ui. Bella Jerome MYELOCYTE % Normal [facility] Comment on above: Performed By: #### C PEDRO ####[facility] [address] [place], [place] [address]Zl. Bella Jerome NRBC Normal The [facility] Comment on above: Performed By: #### C PEDRO ####[facility] [address] [place], [place] [address]Bm. Bella Jerome PLT 227 103/ul Normal 150-450 The [facility] Comment on above: Performed By: #### C PEDRO ####[facility] [address] [id number]. Bella Jerome RBC 3.20 106/ul Critically low 4.20-5.40 [facility] Comment on above: Performed By: #### C PEDRO ####[facility] [address] [id number]. Bella Jerome RDW 12.8 % Normal 11.0-15.0 [facility] Comment on above: Performed By: #### C PEDRO ####[facility] [address] [id number]. Bella Jerome SEG # 16.05 103/ul Critically high 1.40-6.50 [facility] Comment on above: Performed By: #### C PEDRO ####[facility] [address] [id number]. Bella Jerome SEG % 75.0 % Normal 43.0-75.0 [facility] Comment on above: Performed By: #### C PEDRO ####[facility] [address] [id number]. Bella Jerome WBC 21.4 103/ul Critically high 4.0-11.0 [facility] Comment on above: Performed By: #### C PEDRO ####[facility] [address] [id number]. Bella Jerome CBC AUTO DIFFon 09-05-2022 BASO # 0.0 103/ul Normal 0.0-0.1 [facility] Comment on above: Performed By: #### C BC #### [facility] [address] [place] [address] Dr. Bella Jerome Basophils/100 WBC (Bld) 0.2 % Normal 0.2-2.0 [facility] Comment on above: Performed By: #### C BC #### [facility] [address] [place] [address] Dr. Bella Jerome EO # 0.1 103/ul Normal 0.0-0.7 [facility] Comment on above: Performed By: #### C BC #### [facility] [address] [place] [address] Dr. Bella Jerome Eosinophils/100 WBC (Bld) 0.6 % Critically low 0.9-7.0 [facility] Comment on above: Performed By: #### C BC #### [facility] [address] [place] [address] Dr. Bella Jerome Erythrocyte distribution width (RBC) [Ratio] 12.6 % Normal 11.0-15.0 [facility] Comment on above: Performed By: #### C BC #### [facility] [address] [place] [address] Dr. Bella Jerome Hematocrit (Bld) [Volume fraction] 32.5 % Critically low 36.0-48.0 [facility] Comment on above: Performed By: #### C BC #### [facility] [address] [place] [address] Dr. Bella eJrome Hemoglobin (Bld) [Mass/Vol] 11.1 g/dL Critically low 12.0-16.0 [facility] Comment on above: Performed By: #### C BC #### [facility] [address] [place] [address] Dr. Bella Jerome IG # 0.14 10e3/ul Critically high 0.00-0.03 [facility] Comment on above: Performed By: #### C BC #### [facility] [address] [place] [address] Dr. Bella Jerome IG % 1.1 % Critically high 0.0-0.5 [facility] Comment on above: Performed By: #### C BC #### [facility] [address] [place] [address] Dr. Bella Jerome LYMPH # 2.6 103/ul Normal 1.2-3.8 [facility] Comment on above: Performed By: #### C BC #### [facility] [address] [place] [address] Dr. Bella Jerome Lymphocytes/100 WBC (Bld) 20.2 % Critically low 20.5-60.0 [facility] Comment on above: Performed By: #### C BC #### [facility] [address] [place] [address] Dr. Bella Jerome MANUAL DIFF REQ NO Normal [facility] Comment on above: Performed By: #### C BC #### [facility] [address] [place] [address] Dr. Bella Jerome MCH (RBC) [Entitic mass] 32.2 pg Normal 26.7-34.0 [facility] Comment on above: Performed By: #### C BC #### [facility] [address] [place] [address] Dr. Bella Jerome MCHC (RBC) [Mass/Vol] 34.2 g/dL Normal 29.9-35.2 [facility] Comment on above: Performed By: #### C BC #### [facility] [address] [place] [address] Dr. Bella Jerome MCV (RBC) [Entitic vol] 94.2 fL Normal 81.0-99.0 [facility] Comment on above: Performed By: #### C BC #### [facility] [address] [place] [address] Dr. Bella Jerome MONO # 0.9 103/ul Critically high 0.3-0.8 [facility] Comment on above: Performed By: #### C BC #### [facility] [address] [place] [address] Dr. Bella Jerome Monocytes/100 WBC (Bld) 7.1 % Normal 1.7-12.0 [facility] Comment on above: Performed By: #### C BC #### [facility] [address] [place] [address] Dr. Bella Jerome NEUT # 8.9 103/ul Critically high 1.4-6.5 [facility] Comment on above: Performed By: #### C BC #### [facility] [address] [place] [address] Dr. Bella Jerome Neutrophils/100 WBC (Bld) 70.8 % Normal 43.0-75.0 [facility] Comment on above: Performed By: #### C BC #### [facility] [address] [place] [address] Dr. Bella Jerome Platelet mean volume (Bld) [Entitic vol] 11.0 fL Normal 9.5-13.5 [facility] Comment on above: Performed By: #### C BC #### [facility] [address] [place] [address] Dr. Bella Jerome PLT 234 103/ul Normal 150-450 The [facility] Comment on above: Performed By: #### C BC #### [facility] [address] [place] [address] Dr. Bella Jerome RBC 3.45 106/ul Critically low 4.20-5.40 [facility] Comment on above: Performed By: #### C BC #### [facility] [address] [place] [address] Dr. Bella Jerome WBC 12.6 103/ul Critically high 4.0-11.0 [facility] Comment on above: Performed By: #### C BC #### [facility] [address] [place] [address] Dr. Bella Jerome Covid-19 PCR ([facility])on SARS-CoV-2 (COVID-19) RNA FAVIAN+probe Ql (Unsp spec) Not detected Normal NOT DETECTED The [facility] Comment [...] for this test is supported by the [place] of Health and Human Service's declaration that [...] be used). Performed By: #### C VDTBH ####[facility] [address] [place], [place] [address]Dr. Bella Jerome DRUG SCREEN RAPID (URINE)on 09-05-2022 AMP Negative Normal NEGATIVE [facility] Comment on above: Performed By: #### D RUGRPD ####[facility] [address] [place], [place] [address]Dr. Bella Jerome BAR Negative Normal NEGATIVE The [facility] Comment on above: Performed By: #### D RUGRPD ####[facility] [address] [place], [place] [address]Dr. Bella Jerome BUP Negative Normal NEGATIVE The [facility] Comment on above: Performed By: #### D RUGRPD ####[facility] [address] [place], [place] [address]Dr. Bella Jerome BZO Negative Normal NEGATIVE The [facility] Comment on above: Performed By: #### D RUGRPD ####[facility] [address] [place], [place] [address]Dr. Bella Jerome NGA Negative Normal NEGATIVE The [facility] Comment on above: Performed By: #### D RUGRPD ####[facility] Ad[address]isks[address] [place], [place] [address]Dr. Bella Jerome CUT-OFFS SEE BELOW Normal The [facility] Comment [...] 300 ng/mL Performed By: #### D RUGRPD ####[facility] [address] [place], [place] [address] [facility] DRUG CUT HEADER DRUG CLASS TEST SYSTEM CUT-OFF CONCENTRATIONS ARE FOLLOWS: Normal The [facility] Comment on above: Performed By: #### D RUGRPD ####[facility] En[address] [place], [place] [address] [facility] mAMP Negative Normal NEGATIVE The [facility] Comment on above: Performed By: #### D RUGRPD ####[facility] [address] [place], [place] [address]Dr[address] [facility] MTD Negative Normal NEGATIVE The [facility] Comment on above: Performed By: #### D RUGRPD ####[facility] [address] [place], [place] [address] [facility] OPI Negative Normal NEGATIVE The [facility] Comment on above: Performed By: #### D RUGRPD ####[facility] [address] [place], [place] [address]. [facility] Normal NEGATIVE The [facility] Comment on above: Performed By: #### D RUGRPD ####[facility] [address] [place], [place] [address] [facility] PCP Negative Normal NEGATIVE The [facility] Comment on above: Performed By: #### D RUGRPD ####[facility] [address] [place], [place] [address]Dr[address] [facility] PPX Negative Normal NEGATIVE The [facility] Comment on above: Performed By: #### D RUGRPD ####[facility] [address] [place] [id number]. Bella Jerome TCA Negative Normal NEGATIVE The [facility] Comment on above: Performed By: #### D RUGRPD ####[facility] [address] [place] [id number]. Bella Jerome THC Negative Normal NEGATIVE The [facility] Comment on above: Performed By: #### D RUGRPD ####[facility] [address] [place] [id number]. Bella Jerome TYPE AND SCREENon 09-05-2022 TYPE AND SCREEN Negative Normal [facility] Comment on above: Performed By: #### T NS ####[facility] [address] [address]Dr. Bella Jerome US PREG BIOPHY W NON [...] MANUELITO GREGG Date: 2022-08-31 17:06 Normal The [facility] US PREG GROWTHon 08-30-2022 US [...] by: MANUELITO GREGG Date: 2022-08-30 17:59 Normal [facility] US PREG BIOPHY W NON STRESSo [...] biophysical profile score: 8.0 Electronically authenticated by: AMNUELITO GREGG Date: 2022-08-24 17:10 Normal [facility] FREE T4on 08-21-2022 Free T4 [Mass/Vol] 0.90 ng/dL Normal 0.76-1.[address] [facility] Comment on above: Performed By: #### C BC #### [facility] [address] [address] [address] Bella Jerome TSHon 08-21-2022 TSH 1.033 uIU/mL Normal 0.358-3.740 [facility] Comment on above: Performed By: #### H H #### [facility] [address] [address] [address] Bella Jerome US PREG BIOPHY W [...] by: MANUELITO GREGG Date: 2022-08-17 18:33 Normal [facility] GROUP B STREP CULTUREon 07-28 S. agalactiae Ag Ql (Unsp spec) Culture Observations: NEGATIVE FOR GROUP B STREPTOCOCCUS. Normal The [facility] Comment on above: Performed By: #### G BSCX ####[facility] [address] [place], [place] [address]Nx. Bella Jerome US PREG BIOPHY W NON [...] MANUELITO GREGG Date: 2022-08-10 16:36 Normal The [facility] US PREG GROWTHon 08-10-2022 US [...] MANUELITO GREGG Date: 2022-08-10 16:37 Normal The [facility] US PREG GROWTHon 07-25-2022 US [...] MANUELITO GREGG Date: 2022-07-25 18:18 Normal The [facility] FREE T4on 07-24-2022 Free T4 [Mass/Vol] 0.98 ng/dL Normal 0.76-1.[address] [facility] Comment on above: Performed By: #### F T4 #### [facility] [address] [place], [place] [address] Dr. Bella Jerome TSHon 07-24-2022 TSH 1.196 uIU/mL Normal 0.358-3.740 [facility] Comment on above: Performed By: #### T SH ####[facility] [address] [place], [place] [address]QxDr. Bella Jerome UA (CLEAN/CATCH) WASHHOUSE HAND/MICRO I F IND.on 07-20-2022 Bilirubin Ql (U) Negative Normal NEGATIVE [facility] Comment on above: Performed By: #### H H #### [facility] [address] [place] [address] Dr. Bella Jerome Clarity (U) CLEAR Normal CLEAR [facility] Comment on above: Performed By: #### H H #### [facility] [address] [place] [address] Dr. Bella Jerome Color (U) LT. YELLOW Normal YELLOW [facility] Comment on above: Performed By: #### H H #### [facility] [address] [place] [address] Dr. Bella Jerome Glucose Ql (U) Negative Normal NEGATIVE [facility] Comment on above: Performed By: #### H H #### [facility] [address] [place] [address] Dr. Bella Jerome Hemoglobin Ql (U) Negative Normal NEGATIVE [facility] Comment on above: Performed By: #### H H #### [facility] [address] [place] [address] Dr. Bella Jerome Ketones Ql (U) Negative Normal NEGATIVE [facility] Comment on above: Performed By: #### H H #### [facility] [address] [place] [address] Dr. Bella Jerome LEUKOCYTES Negative Normal NEGATIVE [facility] Comment on above: Performed By: #### H H #### [facility] [address] [place] [address] Dr. Bella Jerome Nitrite Ql (U) Negative Normal NEGATIVE [facility] Comment on above: Performed By: #### H H #### [facility] [address] [place] [address] Dr. Bella Jerome pH (U) 7.0 [pH] Normal 5-9 [facility] Comment on above: Performed By: #### H H #### [facility] [address] [place] [address] Dr. Bella Jerome SPEC GRAVITY <=1.005 Abnormal 1.005-<=1.025 [facility] Comment on above: Performed By: #### H H #### [facility] [address] [address] [address] Bella Jerome UA PROTEIN Negative Normal NEGATIVE/ TRACE [facility] Comment on above: Performed By: #### H H #### [facility] [address] [address] [address] Bella Jerome UR MICRO IND NOT INDICATED Normal [facility] Comment on above: Performed By: #### H H #### [facility] [address] [address] [address] Bella Jerome Urobilinogen Qn (U) 0.2 {Kimberlee'U}/dL Normal 0.2 - 1. 0 The [facility] Comment on above: Performed By: #### H H #### [facility] [address] [address] [address] Bella Jerome US PREG GROWTHon 06-27-2022 [...] RAGINI SANTOS Date: 2022-06-27 16:23 Normal The [facility] FREE T4on 06-20-2022 Free T4 [Mass/Vol] 0.82 ng/dL Normal 0.76-1.46 The [facility] Comment on above: Performed By: #### H H #### [facility] [address] [place] [address] Dr. Bella Jerome GLUCOSE - 1HRon 06-20-2022 Glucose [Mass/Vol] 127 mg/dL Critically high 74-106 T [facility] Comment on above: Performed By: #### H H #### [facility] [address] [place] [address] Dr. Bella Jerome HEMOGRAM AND PLATELon 2021 Hematocrit (Bld) [Volume fraction] 32.4 % Critically low 36.0-48.0 [facility] Comment on above: Performed By: #### H H #### [facility] [address] [place] [address] Dr. Bella Jerome Hemoglobin (Bld) [Mass/Vol] 10.9 g/dL Critically low 12.0-16.0 [facility] Comment on above: Performed By: #### H H #### [facility] [address] [place] [address] Dr. Bella Jerome MCH (RBC) [Entitic mass] 32.9 pg Normal 26.7-34.0 [facility] Comment on above: Performed By: #### H H #### [facility] [address] [place] [address] Dr. Bella Jerome MCHC (RBC) [Mass/Vol] 33.6 g/dL Normal 29.9-35.2 [facility] Comment on above: Performed By: #### H H #### [facility] [address] [place] [address] Dr. Bella Jerome MCV (RBC) [Entitic vol] 97.9 fL Normal 81.0-99.0 [facility] Comment on above: Performed By: #### H H #### [facility] [address] [place] [address] Dr. Bella Jerome PLT 241 103/ul Normal 150-450 The [facility] Comment on above: Performed By: #### H H #### [facility] [address] [place] [address] Dr. Bella Jerome RBC 3.31 106/ul Critically low 4.20-5.40 [facility] Comment on above: Performed By: #### H H #### [facility] [address] [place], [place] [address] Dr. Bella Jerome WBC 11.3 103/ul Critically high 4.0-11.0 [facility] Comment on above: Performed By: #### H H #### [facility] [address] [place], [place] [address] Dr. Bella Jerome TSHon 06-20-2022 TSH 3.044 uIU/mL Normal 0.358-3.740 [facility] Comment on above: Performed By: #### C BC #### [facility] [address] [place], [place] [address] Dr. Bella Jerome US PREG INCOMPLETE ANATOMYon 05-24-2022 US PREG INCOMPLETE ANATOMY EXAMINATION: US PREG INCOMPLETE ANATOMY HISTORY: screening COMPARISON: Ultrasound anatomy 04/26/2022 FINDINGS: Presentation: Cephalic Heart rate: 154 bpm Anatomy: Cervical, thoracic, and lumbar spine HERNANDO: 09/13/2022 IMPRESSION: 1. Adequate visualization of the cervical, thoracic, and lumbar spine; no appreciable abnormality. Electronically authenticated by: RAGINI SANTOS Date: 2022-05-24 17:33 Normal The [facility] US PREG ANATOMY SINGLEon US PREG [...] MANUELITO GREGG Date: 2022-04-26 16:54 Normal [facility] CHLAMYDIA/GONOCOCCUS FAVIAN ( AB/URINE/PAPon 04-19-2022 Chlamydia trachomatis, FAVIAN Negative Normal Negative [facility] Comment on above: Performed By: #### C T/NGNA ####[facility] [address] [address]Dr[address] Bella Jerome Neisseria gonorrhoeae, FAVIAN Negative Normal Negative [facility] Comment on above: Performed By: #### C T/NGNA ####[facility] [address] [address]Dr[address] Bella Jerome VAGINITIS/VAGINOSIS DNA PROB Leonid 04-18-2022 Jessica species Negative Normal Negative [facility] Comment on above: Performed By: #### H H #### [facility] [address] [address] [address] Bella Jerome Gardnerella vaginalis Negative Normal Negative [facility] Comment on above: Performed By: #### H H #### [facility] [address] [address] [address] Bella Jerome Trichomonas vaginalis Negative Normal Negative [facility] Comment on above: Performed By: #### H H #### [facility] [address] [address] [address] Bella Jerome FREE T4on 04-05-2022 Free T4 [Mass/Vol] 0.88 ng/dL Normal 0.76-1.46 The [facility] Comment on above: Performed By: #### F T4 #### [facility] [address] [address] [address] Bella Jerome TSHon 04-05-2022 TSH 1.786 uIU/mL Normal 0.358-3.740 [facility] Comment on above: Performed By: #### T SH ####[facility] [address] [address] Bella Jerome TSH RANGE SEE BELOW Normal [facility] Comment on above: Result Comment: <0.3 4 UIU/ml HYPERTHYROID 0.34-5.60 UIU/ml EUTHYROID >5.60 UIU/ml HYPOTHYROID Performed By: #### T SH ####[facility] [address] [place], [place] [address]Dr. Bella Jerome FREE T4on 02-26-2022 Free T4 [Mass/Vol] 1.06 ng/dL Normal 0.76-1.[address] [facility] Comment on above: Performed By: #### C BC #### [facility] [address] [place] [address] Dr. Bella Jerome TSHon 02-26-2022 TSH 2.024 uIU/mL Normal 0.470-4.680 [facility] Comment on above: Performed By: #### C BC #### [facility] [address] [place] [address] Dr. Bella Jerome TSH RANGE SEE BELOW Normal [facility] Comment on above: Result Comment: <0.3 4 UIU/ml HYPERTHYROID 0.34-5.60 UIU/ml EUTHYROID >5.60 UIU/ml HYPOTHYROID Performed By: #### C BC #### [facility] [address] [place] [address] Dr. Bella Jerome Vital Signs Date Time Vital Sign Value Performing Clinician Facility 02-13-2024 11: Body height 160.02 cm [facility] 02-13-2024 11:[id number] Body mass index (BMI) [Ratio] 42.3 kg/m2 [facility] 02-13-2024 11:24-0400 Body weight 108.49 kg [facility] 02-13-2024 11:24-0400 Diastolic blood pressure 70 mm[Hg] [facility] 02-13-2024 11:24-0400 Heart rate 69 /min [facility] 02-13-2024 11:24-0400 Respiratory rate 18 /min [facility] 02-13-2024 11:24-0400 SaO2% (BldA) [Mass fraction] 98 % [facility] 02-13-2024 11:24-0400 Systolic blood pressure 118 mm[Hg] [facility] 10-31-2023 15:00-0500 Body height 160.02 cm Sandra Austin Other [facility] [employer] Other 10-31-2023 15:00-0500 Body mass index (BMI) [Ratio] 45.41 kg/m2 Sandra Austin Other [employer] Other 10-31-2023 15:00-0500 Body temperature 98.5 [degF] Sandra Austin Other [facility] Other 10-31-2023 15:00-0500 Body weight 116.3 kg Sandra Austin Other [employer] Other 10-31-2023 15:00-0500 Diastolic blood pressure 80 mm[Hg] Sandra Austin Other [employer] Other 10-31-2023 15:00-0500 Respiratory rate 18 /min Sandra Austin Other [employer] Other 10-31-2023 15:00-0500 SaO2% (BldA) [Mass fraction] 98 % Sandra Austin Other [employer] Other 10-31-2023 15:00-0500 Systolic blood pressure 128 mm[Hg] Sandra Austin Other [employer] Other 06-24-2023 14:30-0400 Body height 160.02 cm Sandra Austin Other [employer] Other 06-24-2023 14:30-0400 Body mass index (BMI) [Ratio] 44.87 kg/m2 Sandra Geovanna Other [employer] Other 06-24-2023 14:30-0400 Body weight 114.9 kg Sandra Geovanna Other [employer] Other 06-24-2023 14:30-0400 Diastolic blood pressure 60 mm[Hg] Sandra Austin Other [employer] Other 06-24-2023 14:30-0400 Respiratory rate 18 /min Sandra Austin Other [employer] Other 06-24-2023 14:30-0400 SaO2% (BldA) [Mass fraction] 99 % Sandra Austin Other [employer] Other 06-24-2023 14:30-0400 Systolic blood pressure 110 mm[Hg] Sandra Austin Other [facility] Other 04-15-2023 09:25-0400 Body height 160.02 cm Ramonita Greenberg Other [employer] Other 04-15-2023 09:25-0400 Body mass index (BMI) [Ratio] 41.8 kg/m2 Ramonita Greenberg Other [facility] Other 04-15-2023 09:25-0400 Body temperature 98.5 [degF] Ramonita Greenberg Other [employer] Other 04-15-2023 09:25-0400 Body weight 107.05 kg Ramonita Greenberg Other [employer] Other 04-15-2023 09:25-0400 Respiratory rate 18 /min Ramonita Greenberg Other [employer] Other 04-15-2023 09:25-0400 SaO2% (BldA) [Mass fraction] 97 % Ramonita Greenberg Other [facility] Other 02-21-2023 14:45-0400 Body height 160.02 cm Sandra Austin Other [employer] Other 02-21-2023 14:45-0400 Body mass index (BMI) [Ratio] 41.39 kg/m2 Sandra Austin Other [employer] Other 02-21-2023 14:45-0400 Body weight 106.01 kg Sandra Austin Other [employer] Other 02-21-2023 14:45-0400 Diastolic blood pressure 60 mm[Hg] Sandra Austin Other [employer] Other 02-21-2023 14:45-0400 Respiratory rate 18 /min Sandra Austin Other [employer] Other 02-21-2023 14:45-0400 SaO2% (BldA) [Mass fraction] 98 % Sandra Austin Other [employer] Other 02-21-2023 14:45-0400 Systolic blood pressure 110 mm[Hg] Sandra Austin Other [employer] Other 12-24-2022 14:30-0500 Body height 160.02 cm Sandra Austin Other [employer] Other 12-24-2022 14:30-0500 Body mass index (BMI) [Ratio] 40.83 kg/m2 Sandra Austin Other [employer] Other 12-24-2022 14:30-0500 Body weight 104.55 kg Sandra Austin Other [employer] Other 12-24-2022 14:30-0500 Diastolic blood pressure 70 mm[Hg] Sandra Austin Other [employer] Other 12-24-2022 14:30-0500 Respiratory rate 18 /min Sandra Austin Other [employer] Other 12-24-2022 14:30-0500 SaO2% (BldA) [Mass fraction] 99 % Sandra Austin Other [employer] Other 12-24-2022 14:30-0500 Systolic blood pressure 118 mm[Hg] Sandra Austin Other [employer] Other 12-21-2021 16:30-0500 Body height 160.02 cm Sandra Austin Other [employer] Other 12-21-2021 16:30-0500 Body mass index (BMI) [Ratio] 38.58 kg/m2 Sandra Austin Other [employer] Other 12-21-2021 16:30-0500 Body temperature 97.3 [degF] Sandra Austin Other [employer] Other 12-21-2021 16:30-0500 Body weight 98.79 kg Sandra Austin Other [employer] Other 12-21-2021 16:30-0500 Diastolic blood pressure 60 mm[Hg] Sandra Austin Other [employer] Other 12-21-2021 16:30-0500 Respiratory rate 18 /min Sandra Austin Other [employer] Other 12-21-2021 16:30-0500 SaO2% (BldA) [Mass fraction] 99 % Sandra Austin Other [employer] Other 12-21-2021 16:30-0500 Systolic blood pressure 118 mm[Hg] Sandra Austin Other [employer] Other Encounters Encounter Date Encounter Type Care Provider Facility Start: 2024 End: 2024 ambulatory AGUS HANSA Not Available Start: 05-12-2024 End: 05-12-2024 ambulatory ENDY PRIEST Not Available Start: 04-16-2024 End: 04-16-2024 ambulatory AGUS HANSA Not Available Start: 03-17-2024 End: 03-17-2024 ambulatory AGUS HANSA Not Available Start: 02-14-2024 End: 02-14-2024 ambulatory AGUS HANSA Not Available Start: 02-13-2024 End: 02-13-2024 ambulatory [facility] Work Phone: Start: 02-13-2024 End: 02-13-2024 Patient encounter procedure [facility] Work Phone: Start: 12-16-2023 Non-patient / Non-visit [facility] [employer] Work Phone: Start: 12-16-2023 End: 12-16-2023 ambulatory AGUS SANTO Not Available Start: 10-31-2023 End: 10-31-2023 ambulatory Sandra Austin Other [employer] Other Start: 10-31-2023 Office outpatient vi sit 25 minutes Sandra Austin [facility] [place] Start: 07-19-2023 End: 07-19-2023 ambulatory Sandra Austin Other [employer] Other Start: 07-19-2023 Telephone encounter Sandra Austin [facility] Start: 06-24-2023 End: 06-24-2023 ambulatory Sandra Austin Other [employer] Other Start: 06-24-2023 Office outpatient vi sit 25 minutes Sandra Austin [facility] [place] Start: 06-04-2023 End: 06-04-2023 ambulatory Sandra Austin Other [employer] Other Start: 06-04-2023 Telephone encounter Sandra Austin [facility] Start: 04-15-2023 End: 04-15-2023 ambulatory Ramonita Greenberg Other [employer] Other Start: 04-15-2023 Office outpatient vi sit 15 minutes Ramonita Greenberg [facility] [place] Start: 04-11-2023 End: 04-11-2023 ambulatory Sandra Austin Other [employer] Other Start: 04-11-2023 Telephone encounter Sandra Geovanna [facility] [place] Start: 02-21-2023 Office outpatient vi sit 25 minutes Sandra Austin [facility] [place] Start: 02-21-2023 End: 02-22-2023 ambulatory SANDRA AUSTIN [facility] [employer] Other Start: 01-04-2023 End: 01-04-2023 ambulatory Sandra Geovanna Other [employer] Other Start: 01-04-2023 Telephone encounter Sandra Pendletonaldo [facility] [place] Start: 12-30-2022 Encounter for genera l adult medical examination without abnormal findings SANDRA AUSTIN [facility] Start: 12-27-2022 End: 12-27-2022 ambulatory Sandra Austin Other [employer] Other Start: 12-27-2022 Telephone encounter Sandra Geovanna [facility] Start: 12-26-2022 End: 12-27-2022 ambulatory SANDRA AUSTIN Facility:[facility] Start: 12-26-2022 End: 12-27-2022 Encounter for general adult medical examination without abnormal findings SANDRA AUSTIN Facility:[facility] Start: 12-24-2022 End: 12-24-2022 ambulatory Sandra Austin Other [employer] Other Start: 12-24-2022 Encounter for genera l adult medical examination without abnormal findings Sandra Austin [facility] [place] Start: 12-24-2022 Periodic preventive med est patient 18-39 yrs Sandra Austin [facility] [place] Start: 12-10-2022 End: 12-10-[address] AGUS SANTO . Facility:[facility] Start: 09-12-2022 End: 10-11-[address] AGUS SANTO . Facility:[facility] Start: 09-10-2022 End: 09-10-[address] AGUS SANTO . Facility:[facility] Start: 09-05-2022 End: 09-08-2022 Evaluation and management of inpatient DR AGUS SANTO . Facility:[facility] Start: 08-31-2022 End: 08-31-[address] AGUS SANTO . Facility:[facility] Start: 08-30-2022 End: 08-31-2022 ambulatory SANDRA KAPLE Facility:[facility] Start: 08-24-2022 End: 08-24-2022 ambulatory SANDRA [...] 12-21-2021 End: 12-21-2021 ambulatory Sandra Austin Other [facility] [employer] Other Start: 12-21-2021 Office outpatient ne w 45 minutes Sandra Austin [facility] [place] Procedures Date Procedure Procedure Detail Performing Clinician [...] Patient Education Low back pain in adults [facility] Work Phone: Payers Date Payer Category Payer Unknown [id number] 2. [id number] 1997 Unknown [id number] 2.16.84 0.1.027845.3.579.2.593 1997 Unknown [id number] 2.16.84 0.1.241097.3.579.2.593 1997 Unknown [id number] 2.16.84 0.1.239582.3.579.2.593 1997 Unknown [id number] 2.16.84 0.1.022374.3.579.2.593 1997 Unknown [id number] 2.16.84 0.1.752158.3.579.2.593 1997 Unknown [id number] 2.16.84 0.1.343319.3.579.2.593 1997 Unknown [id number] 2.16.84 0.1.594079.3.579.2.593 1997 Unknown [id number] 2.16.84 0.1.851725.3.579.2.593 1997 Unknown [id number] 2.16.84 0.1.451750.3.579.2.593 1997 Unknown [id number] 2.16.84 0.1.125239.3.579.2.593 1997 Unknown [id number] 2.16.84 0.1.291613.3.579.2.593 1997 Unknown [id number] 2.16.84 0.1.755817.3.579.2.593 1997 Unknown [id number] 2.16.84 0.1.080356.3.579.2.593 1997 Unknown [id number] 2.16.84 0.1.332608.3.579.2.593 1997 Unknown [id number] 2.16.84 0.1.829484.3.579.2.593 1997 Unknown [id number] 2.16.84 0.1.389448.3.579.2.593 1997 Unknown [id number] 2.16.84 0.1.328936.3.579.2.593 1997 Unknown [id number] 2.16.84 0.1.819289.3.579.2.593 1997 Unknown [id number] 2.16.84 0.1.603091.3.579.2.593 1997 Unknown [id number] 2.16.84 0.1.774044.3.579.2.593 1997 Unknown [id number] 2.16.84 0.1.358953.3.579.2.593 1997 Unknown [id number] 2.16.84 0.1.254960.3.579.2.593 1997 Unknown [id number] 2.16.84 0.1.622093.3.579.2.593 1997 Unknown [id number] 2.16.84 0.1.200413.3.579.2.1259 1997 Unknown [id number] 2.16.84 0.1.825220.3.579.2.1259 1997 Unknown [id number] 2.16.84 0.1.127999.3.579.2.1259 1997 Unknown [id number] 2.16.84 0.1.995911.3.579.2.1259 1997 Unknown [id number] 2.16.84 0.1.634580.3.579.2.9 1997 Unknown [id number] 2.16.84 0.1.590792.3.579.2.1259 1957 Medicaid [id number] 2. [id number] 1957 Private Health Insurance [id number] 2.16.840.1.154481.19 Self-pay Self Pay [id number] Unknown [place] [id number] Social History Date Type Detail Facility Sex Assigned At [place] [employer] Other Start: 1995 Sex Assigned At Female F [facility] Clinical Notes 12-21-2021 to 10-31-2023 Note Date [...] E28.2) She will continue to follow with OB-CONVENTIONS ASSISTANT and continue healthy lifestyle changes that she [...] course of antibiotic. Increase fluids and rest. Kcqa-[id number]-[id number] antipyretics as needed. Warning signs and symptoms reviewed with patient today. Patient to go immediately to the ER should she experience any of these. Patient to notify office should her symptoms persist and not improve. Patient verbalizes understanding and agrees to treatment plan. [employer] Other 09-22-2023 Evaluation note* Encounter Date Diagnosis Assessment Notes Treatment Notes Treatment Clinical Notes Jun, Vitamin D insufficiency (ICD-10 - E55.9) [employer] Other 08-28-2023 Evaluation note* Encounter Date Diagnosis [...] E28.2) She will continue to follow with OB-CONVENTIONS ASSISTANT and continue healthy lifestyle changes that she [...] ENT today. Specialty notes reviewed as received. [employer] Other 08-08-2023 Evaluation note* Encounter Date Diagnosis Assessment Notes Treatment Notes Treatment Clinical Notes May, Other atopic dermatitis (ICD-10 - L20.89) May, Acute otitis externa of both ears, unspecified type (ICD-10 - H60.503) [employer] Other 06-19-2023 Evaluation note* Encounter Date Diagnosis [...] no improvement in 2 to 3 days [employer] Other 06-15-2023 Evaluation note* Encounter Date Diagnosis Assessment Notes Treatment Notes Treatment Clinical Notes Mar, Anxiety (ICD-10 - F41.9) [employer] Other 04-27-2023 Evaluation note* Encounter Date Diagnosis [...] plan on rechecking this at May appointment. [employer] Other 03-10-2023 Evaluation note* Encounter Date Diagnosis Assessment Notes Treatment Notes Treatment Clinical Notes Dec, Bacterial conjunctivitis (ICD-10 - H10.9) [employer] Other 03-02-2023 Evaluation note* Encounter Date Diagnosis Assessment Notes Treatment Notes Treatment Clinical Notes Dec, Vitamin D insufficiency (ICD-10 - E55.9) Dec, Elevated alkaline phosphatase level (ICD-10 - R74.8) Dec, Other specified hypothyroidism (ICD-10 - E03.8) [employer] Other 02-27-2023 Evaluation note* Encounter Date Diagnosis [...] ordered. Follow routinely with eye doctor, dentist, CONVENTIONS ASSISTANT. Patient is advised to work on healthy diet choices and appropriate servings, weight control, regular exercise as directed, reduced fat intake, and salt avoidance. Patient voiced understanding of this and agrees to this plan. Nov, PCOS (polycystic ovarian syndrome) (ICD-10 - E28.2) Routine lab work ordered. She will continue to follow with OB-CONVENTIONS ASSISTANT and continue healthy lifestyle changes that she [...] homicidal ideations. Started on Celexa by her CONVENTIONS ASSISTANT. Very stable on Celexa 20 mg daily. [...] her ears still persist after starting this. [employer] Other 02-24-2022 Evaluation note* Encounter Date Diagnosis Assessment Notes Treatment Notes Treatment Clinical Notes Nov, Prediabetes (ICD-10 - R73.03) She was recently dx with prediabetes and was started on Metformin 500 mg BID 2 weeks ago by her OB-CONVENTIONS ASSISTANT. She would like to follow with our [...] - E28.2) She is following with her OB-CONVENTIONS ASSISTANT for her PCOS and is currently on Metformin 500 mg BID and is taking medication to help her get . She will continue to follow with OB-CONVENTIONS ASSISTANT and continue healthy lifestyle changes that she [...] of fatigue, difficulty losing weight by her OB-CONVENTIONS ASSISTANT. She would like to start following with [...] of this and agrees to this plan. [employer] Other Evaluation note* Diagnosis Onset Date Resolution Status 8 weeks gestation of acute Low back pain [facility] Work Phone: History general Narrative - Reported* Type Description Date Medical History PCOS Medical History THYROID ISSUES Surgical History THIRD NIPPLE REMOVED Surgical History Colonoscopy-normal 2018 [employer] Other Summary Purpose Family History No Family [...] ear pain (H92. 01) Referral Organization [facility] Family Gonzales Hernandez Referring Provider [...] content) EST CARE1 year Follow up, hg ba0bksy resultspink eyepossible mastitisstrep throatanxietyear gtts6 month Follow uprefill4 month Follow up, hgba1c INFORMATION SOURCE (unrecogn ized section and content) DATE CREATED AUTHOR 02/25/2023 [facility] DATE CREATED AUTHOR 'S ORGANIZ ATION 06/10/2024 [facility] [employer] Care Teams [...] BE BASED ON THE PRIMARY CLINICAL RECORDS. [facility] [facility] provides no warranty or guarantee of the accuracy or completeness of information in this [id number]
== END 2024-07-07 08:29 | disposition home or self-care (01) ==
LOC: NOMS 08:28
PROVIDERS: PCP Nurse Practitioner Family; Visit Provider Obstetrics & Gynecology
DX: R79.89 Other specified abnormal findings of blood chemistry (principal); Z3A.29 29 weeks gestation of pregnancy
CPT/HCPCS: 76816

== ENCOUNTER 2024-08-05 07:03 | Outpatient (OUT) | payer OTHER, SELFPAY ==
--- OUTSIDE RECORDS SUMMARY | 2024-08-05 07:06 | XMS_ITS | CCD ---
Author Organization [facility] Care Team Providers Care Print Shop Manager Name Role Phone [facility] Unavailable KAP, SANDRA Primary Care Unavailable HANSA ., DR GOLDSMITH Attending Unavailable WEST, DR MANUELITO Foley Consulting Unavailable HANSA ., DR GOLDSMITH Admitting Unavailable HANSA ., DR GOLDSMITH Consulting Unavailable BRIAN, VIRGINIA Admitting Unavailable VIRGINIA TORRES Attending Unavailable KAP, SANDRA Primary Care Unavailable MARYSOL, DR MANUELITO Foley Consulting Unavailable HANSA ., DR GOLDSMITH Consulting Unavailable VIRGINAI TORRES Consulting Unavailable HANSA ., DR GOLDSMITH [...] HU Consulting [facility] [place], DR MANUELITO Foley Consulting Unavailable HANSA ., DR GOLDSMITH Consulting Unavailable SANDRA AUSTIN Primary Care Unavailable HANSA ., DR GOLDSMITH Attending Unavailable [place], DR MANUELITO Foley Consulting Unavailable HANSA ., DR GOLDSMITH Admitting Unavailable HANSA ., DR GOLDSMITH Consulting Unavailable Ramonita Greenberg Unavailable AGUS SANTO Attending Unavailable HANSA, AGUS Attending Unavailable HANSA, AGUS Attending Unavailable ENDY PRIEST Attending Unavailable HANSA, AGUS Attending Unavailable HANSA, AGUS Attending Unavailable HANSA, AGUS Attending Unavailable Medications [...] hours February 13, 2024 12:00am polymyxin b 60801 unt/ml / trimethoprim 1 mg/ml ophthalmic solution (3 sources) Dihydrofolate Reductase Inhibitor Antibacterial, Polymyxin-class Antibacterial Start: 01-05-20 23 Polymyxin B-Trimethoprim 20829-7.1 UNIT/ML 1 drop into affected eye Ophthalmic [...] acid 7540 MG / polyethylene glycol 3350 64749 MG / potassium chloride 1200 MG / sodium ascorbate 04005 MG / sodium chloride 3200 MG Powder for Oral Solution) / 1 (polyethylene glycol 3350 962162 MG / potassium chloride 1000 MG / [...] DNA Probe+sig amp Ql (Cvx) Note . [facility] [place] Comment on above: TESTS RESULT FLAG UN ITS REF RANGE LAB DI AGNOSIS: 02 NEGATIVE FOR INTRAEPITHELIAL LESION OR MALIGNANCY.Specimen adequacy: 02 Satisfactory for evaluation. Endocervical and/or squamous metaplastic cells (endocervical component) are present.Performed by: 02 Raeann Duran, Senior Editor ([facility]). 02Note: Note 02 The Pap smear is a screening test designed to aid in the detection of premalignant and malignant conditions of the uterine cervix. It is not a diagnostic procedure and should not be used as the sole means of detecting cervical cancer. Both false-positive and false-negative reports do occur.Test Methodology: Note 02 The [employer] Gallery Intern was unable to read this specimen. Therefore a manual review was performed. ----- FLAG LEGEND: L-Low Normal,H-High Normal,LL-Alert Low,HH-Alert High <-Panic Low,>-Panic High,A-Abnormal,AA-Critical Abnormal ---Performed at:[address] [place] [address] Heavenly Serrano MD, . 02 The HPV DNA reflex criteria were not met with this specimen result therefore, no HPV testing was performed.The HPV DNA reflex criteria were not met with this specimenresult therefore, no HPV testing was performed.Performed at: =G - [facility] [id number] Director: Heavenly Serrano MD, Phone: [phone] at: WB - [facility] [id number] Director: Heavenly Serrano MD, Phone: [phone] No Panel Informationon 12-16 Reference Lab Test Patient Age Note . [facility] [place] Comment on above: TESTS RESULT FLAG UN ITS REF RANGE LAB Clinician Provided Cytology Information Source.............Cervix No. of containers..01 ThinPrep VialAge Algo ACOG Leslye... FLAG LEGEND: L-Low Normal,H-High Normal,LL-Alert Low,HH-Alert High <-Panic Low,>-Panic High,A-Abnormal,AA-Critical Abnormal ---Performed at:01 =G [facility] [address] Heavenly Serrano MD, A1C HEMOGLOBINon 10-31-2023 HbA1c (Bld) [Mass fraction] 5.8 % [facility] Other HbA1c (Bld) [Mass fraction]o n 10-31-2023 A1C HEMOGLOBIN [facility] Other A1C HEMOGLOBINon 06-24-2023 HbA1c (Bld) [Mass fraction] 5.2 % [facility] Other HbA1c (Bld) [Mass fraction]o n 06-24-2023 A1C HEMOGLOBIN [facility] Other Quick Strepon 04-15-2023 S. pyogenes Org specific cx Ql (Throat) Positive [facility] Other Quick Strep [facility] Other FREE T4on 02-21-2023 Free T4 [Mass/Vol] 0.89 ng/dL Normal 0.76-1.46 [facility] Comment on above: Performed By: #### H H #### [facility] [address] [place] [address] Dr. Bella Jerome PROF 14(COMP METB)on 023 Albumin [Mass/Vol] 3.7 g/dL Normal 3.4-5.0 [facility] Comment on above: Performed By: #### H H #### [facility] [address] [place] [address] Dr. Bella Jerome Albumin/Globulin [Mass ratio] 0.9 {ratio} Normal [facility] Comment on above: Performed By: #### H H #### [facility] [address] [place] [address] Dr. Bella Jerome ALP [Catalytic activity/Vol] 132 U/L Critically high 46-116 [facility] Comment on above: Performed By: #### H H #### [facility] [address] [place] [address] Dr. Bella Jerome ALT [Catalytic activity/Vol] 32 U/L Normal 14-59 [facility] Comment on above: Performed By: #### H H #### [facility] [address] [address] [address] Bella Jerome Anion gap [Moles/Vol] 12.8 mmol/L Normal [facility] Comment on above: Performed By: #### H H #### [facility] [address] [address] [address] Bella Jerome AST [Catalytic activity/Vol] 23 U/L Normal 15-37 [facility] Comment on above: Performed By: #### H H #### [facility] [address] [address] [address] Bella Jerome Bilirubin [Mass/Vol] 0.6 mg/dL Normal 0.2-1.0 [facility] Comment on above: Performed By: #### H H #### [facility] [address] [place] [address] Dr. Bella Jerome Calcium [Mass/Vol] 9.0 mg/dL Normal 8.5-10.1 [facility] Comment on above: Performed By: #### H H #### [facility] [address] [place] [address] Dr. Bella Jerome Chloride [Moles/Vol] 102 mmol/L Normal 98-107 [facility] Comment on above: Performed By: #### H H #### [facility] [address] [place] [address] Dr. Bella Jerome CO2 [Moles/Vol] 28.2 mmol/L Normal 21.0-32.0 [facility] Comment on above: Performed By: #### H H #### [facility] [address] [address] [address] Bella Jerome Creatinine [Mass/Vol] 0.67 mg/dL Normal 0.55-1.02 [facility] Comment on above: Performed By: #### H H #### [facility] [address] [place] [address] Dr. Bella Jerome EGFR-AF PORTUGUESE >60 Normal >=60 [facility] Comment on above: Performed By: #### H H #### [facility] [address] [address] [address] Bella Jerome EGFR-NON AF PORTUGUESE >60 Normal >=60 [facility] Comment on above: Performed By: #### H H #### [facility] [address] [address] [address] Bella Jerome Globulin (S) [Mass/Vol] 4.2 g/dL Normal [facility] Comment on above: Performed By: #### H H #### [facility] [address] [address] [address] Bella Jerome Glucose [Mass/Vol] 88 mg/dL Normal 74-106 [facility] Comment on above: Performed By: #### H H #### [facility] [address] [address] [address] Bella Jerome Potassium [Moles/Vol] 4.0 mmol/L Normal 3.5-5.1 [facility] Comment on above: Performed By: #### H H #### [facility] [address] [place] [address] Dr. Bella Jerome Protein [Mass/Vol] 7.9 g/dL Normal 6.4-8.2 [facility] Comment on above: Performed By: #### H H #### [facility] [address] [address] [address] Bella Jerome Sodium [Moles/Vol] 139 mmol/L Normal 136-145 [facility] Comment on above: Performed By: #### H H #### [facility] [address] [address] [address] Bella Jermoe Urea nitrogen [Mass/Vol] 12.0 mg/dL Normal 7.0-18.0 [facility] Comment on above: Performed By: #### H H #### [facility] [address] [address] [address] Bella Jerome Urea nitrogen/Creatinine [Mass ratio] 17.9 mg/mg Normal [facility] Comment on above: Performed By: #### H H #### [facility] [address] [place] [address] Dr. Bella Jerome TSHon 02-21-2023 TSH 2.463 uIU/mL Normal 0.358-3.740 [facility] Comment on above: Performed By: #### H H #### [facility] [address] [place] [address] Dr. Bella Jerome VITAMIN D 25 OHon 02-21-2023 VIT D 25-OH 23.1 ng/mL Normal [facility] Comment on above: Performed By: #### H H #### [facility] [address] [place] [address] Dr. Bella Jerome VIT D RANGES SEE BELOW Normal [facility] Comment on above: Result Comment: <20 ng/mL Vit D deficient 20 - <30 ng/mL Vit D insufficient 30 - 100 ng/mL Vit D sufficient >100 ng/mL Potential Toxicity Performed By: #### H H #### [facility] [address] [place] [address] Dr. Bella Jerome CBC AUTO DIFFon 12-26-2022 BASO # 0.0 103/ul Normal 0.0-0.1 [facility] Comment on above: Performed By: #### C BC #### [facility] [address] [place] [address] Dr. Bella Jerome Basophils/100 WBC (Bld) 0.3 % Normal 0.2-2.0 [facility] Comment on above: Performed By: #### C BC #### [facility] [address] [place] [address] Dr. Blela Jerome EO # 0.1 103/ul Normal 0.0-0.7 [facility] Comment on above: Performed By: #### C BC #### [facility] [address] [place] [address] Dr. Bella Jerome Eosinophils/100 WBC (Bld) 1.6 % Normal 0.9-7.0 [facility] Comment on above: Performed By: #### C BC #### [facility] [address] [place] [address] Dr. Bella Jerome Erythrocyte distribution width (RBC) [Ratio] 12.7 % Normal 11.0-15.0 [facility] Comment on above: Performed By: #### C BC #### [facility] [address] [place] [address] Dr. Bella Jerome Hematocrit (Bld) [Volume fraction] 37.2 % Normal 36.0-48.0 [facility] Comment on above: Performed By: #### C BC #### [facility] [address] [place] [address] Dr. Bella Jerome Hemoglobin (Bld) [Mass/Vol] 12.5 g/dL Normal 12.0-16.0 [facility] Comment on above: Performed By: #### C BC #### [facility] [address] [place] [address] Dr. Bella Jerome IG # 0.02 10e3/ul Normal 0.00-0.03 [facility] Comment on above: Performed By: #### C BC #### [facility] [address] [place] [address] Dr. Bella Jerome IG % 0.3 % Normal 0.0-0.5 [facility] Comment on above: Performed By: #### C BC #### [facility] [address] [place] [address] Dr. Bella Jerome LYMPH # 2.3 103/ul Normal 1.2-3.8 [facility] Comment on above: Performed By: #### C BC #### [facility] [address] [place] [address] Dr. Bella Jerome Lymphocytes/100 WBC (Bld) 34.1 % Normal 20.5-60.0 [facility] Comment on above: Performed By: #### C BC #### [facility] [address] [place] [address] Dr. Bella Jerome MANUAL DIFF REQ NO Normal [facility] Comment on above: Performed By: #### C BC #### [facility] [address] [place] [address] Dr. Bella Jerome MCH (RBC) [Entitic mass] 30.9 pg Normal 26.7-34.0 [facility] Comment on above: Performed By: #### C BC #### [facility] [address] [place] [address] Dr. Bella Jerome MCHC (RBC) [Mass/Vol] 33.6 g/dL Normal 29.9-35.2 [facility] Comment on above: Performed By: #### C BC #### [facility] [address] [place] [address] Dr. Bella Jerome MCV (RBC) [Entitic vol] 91.9 fL Normal 81.0-99.0 [facility] Comment on above: Performed By: #### C BC #### [facility] [address] [place] [address] Dr. Bella Jerome MONO # 0.4 103/ul Normal 0.3-0.8 [facility] Comment on above: Performed By: #### C BC #### [facility] [address] [place] [address] Dr. Bella Jerome Monocytes/100 WBC (Bld) 5.1 % Normal 1.7-12.0 [facility] Comment on above: Performed By: #### C BC #### [facility] [address] [place] [address] Dr. Bella Jerome NEUT # 4.0 103/ul Normal 1.4-6.5 [facility] Comment on above: Performed By: #### C BC #### [facility] [address] [place] [address] Dr. Bella Jerome Neutrophils/100 WBC (Bld) 58.6 % Normal 43.0-75.0 [facility] Comment on above: Performed By: #### C BC #### [facility] [address] [place] [address] Dr. Bella Jerome Platelet mean volume (Bld) [Entitic vol] 11.5 fL Normal 9.5-13.5 [facility] Comment on above: Performed By: #### C BC #### [facility] [address] [place] [address] Dr. Bella Jerome PLT 243 103/ul Normal 150-450 [facility] Comment on above: Performed By: #### C BC #### [facility] [address] [place] [address] Dr. Bella Jerome RBC 4.05 106/ul Critically low 4.20-5.40 [facility] Comment on above: Performed By: #### C BC #### [facility] [address] [address] [address] Bella Jerome WBC 6.8 103/ul Normal 4.0-11.0 [facility] Comment on above: Performed By: #### C BC #### [facility] [address] [address] [address] Bella Jerome FREE T4on 12-26-2022 Free T4 [Mass/Vol] 1.05 ng/dL Normal 0.76-1.46 [facility] Comment on above: Performed By: #### F T4, VITAD, B12FOL, IRON ####[facility] [id number] [address]Dr[address] Bella Jerome GLYCOHEMOGLOBIN A1Con 2022 ADA RECOMMENDATION SEE BELOW Normal [facility] Comment on above: Result Comment: ADA RECOMMENDED LIMIT 4.0 - 6.0 ADA THERAPEUTIC TARGET < 7.0 ACTION SUGGESTED > 7.0 Performed By: #### A 1C #### [facility] [address] [address] [address] Bella Jerome Glucose [Mass/Vol] 103 mg/dL Normal [facility] Comment on above: Performed By: #### A 1C #### [facility] [address] [address] [address] Bella Jerome HbA1c (Bld) [Mass fraction] 5.2 % Normal 4.5-6.2 [facility] Comment on above: Performed By: #### A 1C #### [facility] [address] [address] [address] Bella Jerome IRONon 12-26-2022 Iron [Mass/Vol] 74.0 ug/dL Normal 50.0-170.0 [facility] Comment on above: Performed By: #### F T4, VITAD, B12FOL, IRON ####[facility] [id number] [address]Dr. Bella Jerome LIPID PROFILEon 12-26-2022 CHOL-HDL RATIO NORM SEE BELOW Normal [facility] Comment on above: Result Comment: 3.3 - 4.4 LOW RISK 4.4 - 7.1 AVERAGE RISK 7.1 - 11.0 MODERATE RISK >11.0 HIGH RISK Performed By: #### C MP, TSH, LIPID #### [facility] [address] [address] [address] Bella Jerome Cholesterol [Mass/Vol] 153 mg/dL Normal <=200 [facility] Comment on above: Performed By: #### C MP, TSH, LIPID #### [facility] [address] [address] [address] Bella Jerome Cholesterol in HDL [Mass/Vol] 67 mg/dL Critically high 40-60 [facility] Comment on above: Performed By: #### C MP, TSH, LIPID #### [facility] [address] [address] [address] Bella Jerome Cholesterol in LDL [Mass/Vol] 77.2 mg/dL Normal [facility] Comment on above: Performed By: #### C MP, TSH, LIPID #### [facility] [address] [address] [address] Bella Jerome Cholesterol.total/Ch olesterol in HDL [Mass ratio] 2.3 {ratio} Normal [facility] Comment on above: Performed By: #### C MP, TSH, LIPID #### [facility] [address] [address] [address] Bella Jerome HDL NORMAL > or = 60 mg/dl - LOW CARDIOVASCULAR RISK <40 mg/dl - HIGH CARDIOVASCULAR RISK Normal [facility] Comment on above: Performed By: #### C MP, TSH, LIPID #### [facility] [address] [address] [address] Bella Jerome LDL CALC NORMAL SEE BELOW Normal [facility] Comment on above: Result Comment: <100 mg/dl OPTIMAL 100 - 129 mg/dl NEAR OR ABOVE OPTIMAL 130 - 159 mg/dl BORDERLINE HIGH 160 - 189 mg/dl HIGH >190 mg/dl VERY HIGH Performed By: #### C MP, TSH, LIPID #### [facility] [address] [address] [address] Bella Jerome Triglyceride [Mass/Vol] 44 mg/dL Normal <=150 [facility] Comment on above: Performed By: #### C MP, TSH, LIPID #### [facility] [address] [address] [address] Bella Jerome VLDL CALC 8.8 mg/dL Normal [facility] Comment on above: Performed By: #### C MP, TSH, LIPID #### [facility] [address] [address] [address] Bella Jerome MICROALB CREAT RATIO RANDOMo n 12-26-2022 mALB 2.3 mg/L Normal <=30.0 [facility] Comment on above: Performed By: #### H H #### [facility] [address] [place] [address] Dr. Bella Jerome MALB CR RATIO 17.4 mg/g Normal 0.0-29.9 [facility] Comment on above: Performed By: #### H H #### [facility] [address] [address] [address] Bella Jerome MALB CR RATIO RANGE SEE BELOW Normal [facility] Comment on above: Result Comment: NO M ICROALBUMINURIA 0-29 MG/G CLINICAL MICROALBUMINURIA 30-300 MG/G MACROALBUMINURIA >300 MG/G Performed By: #### H H #### [facility] [address] [address] [address] Bella Jerome URINE CREAT 131.90 mg/dL Normal 20.00-300.00 [facility] Comment on above: Performed By: #### H H #### [facility] [address] [address] [address] Bella Jerome PROF 14(COMP METB)on 023 Albumin [Mass/Vol] 4.1 g/dL Normal 3.4-5.0 [facility] Comment on above: Performed By: #### C MP, TSH, LIPID #### [facility] [address] [address] [address] Bella Jerome Albumin/Globulin [Mass ratio] 1.3 {ratio} Normal [facility] Comment on above: Performed By: #### C MP, TSH, LIPID #### [facility] [address] [address] [address] Bella Jerome ALP [Catalytic activity/Vol] 124 U/L Critically high 46-116 [facility] Comment on above: Performed By: #### C MP, TSH, LIPID #### [facility] [address] [address] [address] Bella Jerome ALT [Catalytic activity/Vol] 16 U/L Normal 14-59 [facility] Comment on above: Performed By: #### C MP, TSH, LIPID #### [facility] [address] [address] [address] Bella Jerome Anion gap [Moles/Vol] 13.4 mmol/L Normal [facility] Comment on above: Performed By: #### C MP, TSH, LIPID #### [facility] [address] [address] [address] Bella Jerome AST [Catalytic activity/Vol] 17 U/L Normal 15-37 [facility] Comment on above: Performed By: #### C MP, TSH, LIPID #### [facility] [address] [address] [address] Bella Jerome Bilirubin [Mass/Vol] 0.8 mg/dL Normal 0.2-1.0 [facility] Comment on above: Performed By: #### C MP, TSH, LIPID #### [facility] [address] [address] [address] Bella Jerome Calcium [Mass/Vol] 8.9 mg/dL Normal 8.5-10.1 [facility] Comment on above: Performed By: #### C MP, TSH, LIPID #### [facility] [address] [address] [address] Bella Jerome Chloride [Moles/Vol] 103 mmol/L Normal 98-107 [facility] Comment on above: Performed By: #### C MP, TSH, LIPID #### [facility] [address] [address] [address] Bella Jerome CO2 [Moles/Vol] 25.6 mmol/L Normal 21.0-32.0 [facility] Comment on above: Performed By: #### C MP, TSH, LIPID #### [facility] [address] [address] [address] Bella Jerome Creatinine [Mass/Vol] 0.55 mg/dL Normal 0.55-1.02 [facility] Comment on above: Performed By: #### C MP, TSH, LIPID #### [facility] [address] [address] [address] Bella Jerome EGFR-AF PORTUGUESE >60 Normal >=60 [facility] Comment on above: Performed By: #### C MP, TSH, LIPID #### [facility] [address] [address] [address] Bella Jerome EGFR-NON AF PORTUGUESE >60 Normal >=60 [facility] Comment on above: Performed By: #### C MP, TSH, LIPID #### [facility] [address] [address] [address] Bella Jerome Globulin (S) [Mass/Vol] 3.1 g/dL Normal [facility] Comment on above: Performed By: #### C MP, TSH, LIPID #### [facility] [address] [address] [address] Bella Jerome Glucose [Mass/Vol] 82 mg/dL Normal 74-106 [facility] Comment on above: Performed By: #### C MP, TSH, LIPID #### [facility] [address] [address] [address] Bella Jerome Potassium [Moles/Vol] 4.0 mmol/L Normal 3.5-5.1 [facility] Comment on above: Performed By: #### C MP, TSH, LIPID #### [facility] [address] [address] [address] Bella Jerome Protein [Mass/Vol] 7.2 g/dL Normal 6.4-8.2 [facility] Comment on above: Performed By: #### C MP, TSH, LIPID #### [facility] [address] [address] [address] Bella Jerome Sodium [Moles/Vol] 138 mmol/L Normal 136-145 [facility] Comment on above: Performed By: #### C MP, TSH, LIPID #### [facility] [address] [address] [address] Bella Jerome Urea nitrogen [Mass/Vol] 14.0 mg/dL Normal 7.0-18.0 [facility] Comment on above: Performed By: #### C MP, TSH, LIPID #### [facility] [address] [address] [address] Bella Jerome Urea nitrogen/Creatinine [Mass ratio] 25.5 mg/mg Normal [facility] Comment on above: Performed By: #### C MP, TSH, LIPID #### [facility] [address] [place] [address] Dr. Bella Jerome TSHon 12-26-2022 TSH 0.224 uIU/mL Critically low 0.358-3.740 [facility] Comment on above: Performed By: #### C MP, TSH, LIPID #### [facility] [address] [address] [address] Bella Jerome VIT B12 AND FOLATEon 023 Cobalamin (Vitamin B12) [Mass/Vol] 702.0 pg/mL Normal 193.0-986.0 [facility] Comment on above: Performed By: #### F T4, VITAD, B12FOL, IRON ####[facility] [id number] [address]DrWill Jerome FOLATE 25.10 ng/mL Normal 8.60-58.90 [facility] Comment on above: Performed By: #### F T4, VITAD, B12FOL, IRON ####[facility] [address] [address]DrWill Jerome VITAMIN D 25 OHon 12-26-2022 VIT D 25-OH 25.4 ng/mL Normal [facility] Comment on above: Performed By: #### F T4, VITAD, B12FOL, IRON ####[facility] [address] [address]Dr. Bella Jerome VIT D RANGES SEE BELOW [facility] Comment on above: Result Comment: <20 ng/mL Vit D deficient 20 - <30 ng/mL Vit D insufficient 30 - 100 ng/mL Vit D sufficient >100 ng/mL Potential Toxicity Performed By: #### F T4, VITAD, B12FOL, IRON ####[facility] [address] [place], [place] [address]WhDr. Bella Jerome PAP ACOG PANEL 2: 21 to 31on 12-18-2022 . . Normal [facility] Comment on above: Performed By: #### C BC #### [facility] [address] [address] [address] Bella Jerome Age Gdln ACOG Testing - [facility] Comment on above: Performed By: #### C BC #### [facility] [address] [address] [address] Bella Jerome DIAGNOSIS: Comment [facility] Comment on above: Result Comment: NEGA TIVE FOR INTRAEPITHELIAL LESION OR MALIGNANCY. Performed By: #### C BC #### [facility] [address] [address] [address] Bella Jerome Methodology: Comment [facility] Comment on above: Result Comment: This liquid based ThinPrep(R) pap test was screened with the use of an image guided system. Performed By: #### C BC #### [facility] [address] [address] [address] Bella Jerome Note: Comment [facility] Comment on above: Result Comment: The Pap [...] C BC #### [facility] [id number] Bella Jerome Performed by: Comment Normal [facility] Comment on above: Result Comment: Byron Irby, Senior Editor (ASCP) Performed By: #### C BC #### [facility] [address] [place] [address] [address]. Bella Jerome Reflex Criteria: Comment Normal [facility] Comment on above: Result Comment: The HPV DNA reflex criteria were not met with this specimen result therefore, no HPV testing was performed. . Performed By: #### C BC #### [facility] [address] [place] [address] Dr. Bella Jerome Specimen adequacy: Comment Normal [facility] Comment on above: Result Comment: Sati sfactory for evaluation. Endocervical and/or squamous metaplastic cells (endocervical component) are present. Performed By: #### C BC #### [facility] [address] [place] [address] Dr. Bella Jerome CBC W MANUAL DIFFon 09-07-20 22 ATYPICAL LYMPH # Normal [facility] Comment on above: Performed By: #### C BCMAN ####[facility] [address] [place], [place] [address]Dr. Bella Jerome ATYPICAL LYMPH % Normal [facility] Comment on above: Performed By: #### C BCMAN ####[facility] Nuk[address] [place], [place] [address]Dr. Bella Jerome BAND # 0.2 103/ul Normal 0.0-0.3 [facility] Comment on above: Performed By: #### C BCMAN ####[facility] [address] [place], [place] [address]Dr. Bella Jerome BAND % 1 % Normal 0-5 [facility] Comment on above: Performed By: #### C BCMAN ####[facility] [address] [place], [place] [address]Dr. Bella Jerome BASOM # 0.00 103/ul Normal 0.00-0.10 [facility] Comment on above: Performed By: #### C BCMAN ####[facility] [address]ujcln[address] [place], [place] [address]Dr. Bella Jerome BASOM % 0.0 % Critically low 0.2-2.0 [facility] Comment on above: Performed By: #### C BCMAN ####[facility] [address] [place] [id number]. Bella Jerome BLAST # Normal [facility] Comment on above: Performed By: #### C BCMAN ####[facility] [address]by[address] [place] [id number]. Bella Jerome BLAST % Normal [facility] Comment on above: Performed By: #### C BCMAN ####[facility] [address] [place] [address]Dr. Bella Jerome CORRECTED WBC Normal 4.0-11.0 [facility] Comment on above: Performed By: #### C BCRELL ####[facility] [address] [place] [address]Dr. Bella Jerome EOS # 0.00 103/ul Normal 0.00-0.70 [facility] Comment on above: Performed By: #### C BCRELL ####[facility] W[address] [place], [place] [address]Dr. Bella Jerome EOS% 0.0 % Critically low 0.9-7.0 [facility] Comment on above: Performed By: #### C BCRELL ####[facility] Frx[address]rx[address] [place], [place] [address]Dr. Bella Jerome HCT 30.5 % Critically low 36.0-48.0 [facility] Comment on above: Performed By: #### C BCRELL ####[facility] [address] [place], [place] [address]Dr. Bella Jerome HGB 10.5 g/dl Critically low 12.0-16.0 [facility] Comment on above: Performed By: #### C BCRELL ####[facility] [address] [place] [address]Dr. Bella Jerome LYMPHM # 2.78 103/ul Normal 1.20-3.80 [facility] Comment on above: Performed By: #### C BCRELL ####[facility] [address] [place], [place] [address]Dr. Bella Jerome LYMPHM% 13.0 % Critically low 20.5-60.0 [facility] Comment on above: Performed By: #### C PEDRO ####[facility] [address] [place] [address]Dr. Bella Jerome MCH 32.8 pg Normal 26.7-34.0 [facility] Comment on above: Performed By: #### C PEDRO ####[facility] [address]ke[address] [place] [id number]. Bella Jerome MCHC 34.4 g/dl Normal 29.9-35.2 [facility] Comment on above: Performed By: #### C PEDRO ####[facility] [address]ht[address] [place] [id number]. Bella Jerome MCV 95.3 fL Normal 81.0-99.0 [facility] Comment on above: Performed By: #### C PEDOR ####[facility] [address]edbg[address] [place] [id number]. Bella Justus METAMYELOCYTE # Normal [facility] Comment on above: Performed By: #### Jennifer VASQUEZ ####[facility] L[address]ms[address]om[address] [place] [address]Dr. Bella Jerome METAMYELOCYTE % Normal [facility] Comment on above: Performed By: #### C PEDRO ####[facility] Y[address]abq[address] [place] [address]Dr. Bella Jerome MONOM# 2.35 103/ul Critically high 0.30-0.80 [facility] Comment on above: Performed By: #### C PEDRO ####[facility] [address] [place] [address]Dr. Bella Jerome MONOM% 11.0 % Normal 1.7-12.0 [facility] Comment on above: Performed By: #### C PEDRO ####[facility] [address]vunsyc[address] [place] [id number]. Bella Jerome MPV 11.1 fL Normal 9.5-13.5 [facility] Comment on above: Performed By: #### C PEDRO ####[facility] [address] [place] [address]Dr. Bella Jerome MYELOCYTE # Normal [facility] Comment on above: Performed By: #### C PEDRO ####[facility] Yq[address]so[address] [place], [place] [address]Zx. Bella Jerome MYELOCYTE % Normal [facility] Comment on above: Performed By: #### C PEDRO ####[facility] Tykbsqmrle15[address] [place], [place] [address]Ys. Bella Jerome NRBC Normal [facility] Comment on above: Performed By: #### C PEDRO ####[facility] Ecp[address]zokj26[address] [place], [place] [address]Mp. Bella Jerome PLT 227 103/ul Normal 150-450 [facility] Comment on above: Performed By: #### C PEDRO ####[facility] Mch[address]qzq39[address] [place], [place] [address]Yx. Bella Jerome RBC 3.20 106/ul Critically low 4.20-5.40 [facility] Comment on above: Performed By: #### C PEDRO ####[facility] Iufngzriya[address] [place], [place] [address]Ye. Bella Jerome RDW 12.8 % Normal 11.0-15.0 [facility] Comment on above: Performed By: #### C PEDRO ####[facility] Fx[address]cl[address]rbn2[address] [place], [place] [address]Nu. Bella Jerome SEG # 16.05 103/ul Critically high 1.40-6.50 [facility] Comment on above: Performed By: #### C PEDRO ####[facility] Mckmnnuyxh217[address] [place], [place] [address]Nx. Bella Jerome SEG % 75.0 % Normal 43.0-75.0 [facility] Comment on above: Performed By: #### C PEDRO ####[facility] Qalpytcxpl6584 [place], [place] [address]Wd. Bella Jerome WBC 21.4 103/ul Critically high 4.0-11.0 [facility] Comment on above: Performed By: #### C PEDRO ####[facility] [address] [place] [id number]. Bella Jerome CBC AUTO DIFFon 09-05-2022 BASO # 0.0 103/ul Normal 0.0-0.1 [facility] Comment on above: Performed By: #### C BC #### [facility] [address] [place] [address] [address] Bella Jerome Basophils/100 WBC (Bld) 0.2 % Normal 0.2-2.0 [facility] Comment on above: Performed By: #### C BC #### [facility] [address] [place] [address] [address] Bella Jerome EO # 0.1 103/ul Normal 0.0-0.7 [facility] Comment on above: Performed By: #### C BC #### [facility] [address] [place] [address] Dr. Bella Jerome Eosinophils/100 WBC (Bld) 0.6 % Critically low 0.9-7.0 [facility] Comment on above: Performed By: #### C BC #### [facility] [address] [place] [address] Dr. Bella Jerome Erythrocyte distribution width (RBC) [Ratio] 12.6 % Normal 11.0-15.0 [facility] Comment on above: Performed By: #### C BC #### [facility] [address] [place] [address] Dr. Bella Jerome Hematocrit (Bld) [Volume fraction] 32.5 % Critically low 36.0-48.0 [facility] Comment on above: Performed By: #### C BC #### [facility] [address] [place] [address] Dr. Bella Jerome Hemoglobin (Bld) [Mass/Vol] 11.1 g/dL Critically low 12.0-16.0 [facility] Comment on above: Performed By: #### C BC #### [facility] [address] [place] [address] Dr. Bella Jerome IG # 0.14 10e3/ul Critically high 0.00-0.03 [facility] Comment on above: Performed By: #### C BC #### [facility] [address] [place] [address] Dr. Bella Jerome IG % 1.1 % Critically high 0.0-0.5 [facility] Comment on above: Performed By: #### C BC #### [facility] [address] [place] [address] Dr. Bella Jerome LYMPH # 2.6 103/ul Normal 1.2-3.8 [facility] Comment on above: Performed By: #### C BC #### [facility] [address] [place] [address] Dr. Bella Jerome Lymphocytes/100 WBC (Bld) 20.2 % Critically low 20.5-60.0 [facility] Comment on above: Performed By: #### C BC #### [facility] [address] [place] [address] Dr. Bella Jerome MANUAL DIFF REQ NO Normal [facility] Comment on above: Performed By: #### C BC #### [facility] [address] [place] [address] Dr. Bella Jerome MCH (RBC) [Entitic mass] 32.2 pg Normal 26.7-34.0 [facility] Comment on above: Performed By: #### C BC #### [facility] [address] [place] [address] Dr. Bella Jerome MCHC (RBC) [Mass/Vol] 34.2 g/dL Normal 29.9-35.2 [facility] Comment on above: Performed By: #### C BC #### [facility] [address] [place] [address] Dr. Bella Jerome MCV (RBC) [Entitic vol] 94.2 fL Normal 81.0-99.0 [facility] Comment on above: Performed By: #### C BC #### [facility] [address] [place] [address] Dr. Bella Jerome MONO # 0.9 103/ul Critically high 0.3-0.8 [facility] Comment on above: Performed By: #### C BC #### [facility] [address] [place] [address] Dr. Bella Jerome Monocytes/100 WBC (Bld) 7.1 % Normal 1.7-12.0 [facility] Comment on above: Performed By: #### C BC #### [facility] [address] [place] [address] Dr. Bella Jerome NEUT # 8.9 103/ul Critically high 1.4-6.5 [facility] Comment on above: Performed By: #### C BC #### [facility] [address] [place] [address] Dr. Bella Jerome Neutrophils/100 WBC (Bld) 70.8 % Normal 43.0-75.0 [facility] Comment on above: Performed By: #### C BC #### [facility] [address] [place] [address] Dr. Bella Jerome Platelet mean volume (Bld) [Entitic vol] 11.0 fL Normal 9.5-13.5 [facility] Comment on above: Performed By: #### C BC #### [facility] [address] [place] [address] Dr. Bella Jerome PLT 234 103/ul Normal 150-450 [facility] Comment on above: Performed By: #### C BC #### [facility] [address] [place] [address] Dr. Bella Jerome RBC 3.45 106/ul Critically low 4.20-5.40 [facility] Comment on above: Performed By: #### C BC #### [facility] [address] [place] [address] Dr. Bella Jerome WBC 12.6 103/ul Critically high 4.0-11.0 [facility] Comment on above: Performed By: #### C BC #### [facility] [address] [place] [address] Dr. Bella Jerome Cov[facility]-19 [facility]on SARS-CoV-2 (COVID-19) RNA FAVIAN+probe Ql (Unsp spec) [...] for this test is supported by the [place] of Health and Human Service's declaration that [...] Performed By: #### C VDTBH ####[facility] E[address] [place], [place] [address]Dr. [place] Jerome DRUG SCREEN RAPID (URINE)on 09-05-2022 AMP Negative Normal NEGATIVE [facility] Comment on above: Performed By: #### D RUGRPD ####[facility] Zelfrixody[address] [place], [place] [address]Dr. Bella Jerome BAR Negative Normal NEGATIVE [facility] Comment on above: Performed By: #### D RUGRPD ####[facility] Fketgiafsj[address] [place], [place] [address]Dr. [place] Jerome BUP Negative Normal NEGATIVE [facility] Comment on above: Performed By: #### D RUGRPD ####[facility] F[address]dncrhph[address] [place], [place] [address]Dr. Bella Jerome BZO Negative Normal NEGATIVE [facility] Comment on above: Performed By: #### D RUGRPD ####[facility] C[address]ow[address]gyhf[address] [place] [address]Dr. Bella Jerome NGA Negative Normal NEGATIVE [facility] Comment on above: Performed By: #### D RUGRPD ####[facility] [address]sm[address]opi[address] [place], [place] [address]Dr. Bella Jerome CUT-OFFS SEE BELOW Normal [facility] Comment on above: Result Comment: AMP [...] Performed By: #### D RUGRPD ####[facility] J[address]vs[address] [place], [place] [address]Dr. [facility] DRUG CUT HEADER DRUG CLASS TEST SYSTEM CUT-OFF CONCENTRATIONS ARE FOLLOWS: Normal [facility] Comment on above: Performed By: #### D RUGRPD ####[facility] Jivpuspxfg[address] [place], [place] [address]Dr. Bella Jerome mAMP Negative Normal NEGATIVE [facility] Comment on above: Performed By: #### D RUGRPD ####[facility] Bgtvsapxia[address] [place], [place] [address]Dr. Liwally [facility] MTD Negative Normal NEGATIVE [facility] Comment on above: Performed By: #### D RUGRPD ####[facility] Xa[address]jnpzsu[address] [place], [place] [address]. [facility] OPI Negative Normal NEGATIVE [facility] Comment on above: Performed By: #### D RUGRPD ####[facility] Wyanxuxfpp[address] [place], [place] [address]Dr. Bella Jerome OXY Negative Normal NEGATIVE [facility] Comment on above: Performed By: #### D RUGRPD ####[facility] Alplmvevvy[address] [place], [place] [address]Dr. [facility] PCP Negative Normal NEGATIVE [facility] Comment on above: Performed By: #### D RUGRPD ####[facility] [address]vh[address] [place], [place] [address]Dr. [facility] PPX Negative Normal NEGATIVE [facility] Comment on above: Performed By: #### D RUGRPD ####[facility] [address]tt[address] [place] [id number]. Bella Jerome TCA Negative Normal NEGATIVE [facility] Comment on above: Performed By: #### D RUGRPD ####[facility] Nowgflxdyu[address] [place] [id number]. Bella Jerome THC Negative Normal NEGATIVE [facility] Comment on above: Performed By: #### D RUGRPD ####[facility] Rt[address]sjmbiy[address] [place] [id number]. Bella Jerome TYPE AND SCREENon 09-05-2022 TYPE AND SCREEN Negative Normal [facility] Comment on above: Performed By: #### T NS ####[facility] En[address]tyy[address] [place] [address]Dr. Bella Jerome US PREG BIOPHY W NON [...] MANUELITO GREGG Date: 2022-08-31 17:06 Normal [facility] US PREG GROWTHon 08-30-2022 US PREG [...] by: MANUELITO GREGG Date: 2022-08-30 17:59 Normal [facility] US PREG BIOPHY W NON STRESSo [...] MANUELITO GREGG Date: 2022-08-24 17:10 Normal [facility] FREE T4on 08-21-2022 Free T4 [Mass/Vol] 0.90 ng/dL Normal 0.76-1.46 [facility] Comment on above: Performed By: #### C BC #### [facility] [address] [place] [address] [address] Bella Jerome TSHon 08-21-2022 TSH 1.033 uIU/mL Normal 0.358-3.740 [facility] Comment on above: Performed By: #### H H #### [facility] [address] [place] [address] [address] Bella Jerome US PREG BIOPHY W [...] by: MANUELITO GREGG Date: 2022-08-17 18:33 Normal [facility] GROUP B STREP CULTUREon 07-28 S. agalactiae Ag Ql (Unsp spec) Culture Observations: NEGATIVE FOR GROUP B STREPTOCOCCUS. Normal [facility] Comment on above: Performed By: #### G BSCX ####[facility] [address]zxh[address] [place] [address]DrWill Bella Jerome US PREG BIOPHY W NON [...] MANUELITO GREGG Date: 2022-08-10 16:36 Normal [facility] US PREG GROWTHon 08-10-2022 US PREG [...] MANUELITO GREGG Date: 2022-08-10 16:37 Normal [facility] US PREG GROWTHon 07-25-2022 US PREG [...] MANUELITO GREGG Date: 2022-07-25 18:18 Normal [facility] FREE T4on 07-24-2022 Free T4 [Mass/Vol] 0.98 ng/dL Normal 0.76-1.46 [facility] Comment on above: Performed By: #### F T4 #### [facility] [address] [place], [place] [address] Dr. Bella Jerome TSHon 07-24-2022 TSH 1.196 uIU/mL Normal 0.358-3.740 [facility] Comment on above: Performed By: #### T SH ####[facility] [address] [place] [address]Dr. Bella Jerome UA (CLEAN/CATCH) CONSUMER AFFAIRS SPECIALIST/MICRO I F IND.on 07-20-2022 Bilirubin Ql (U) Negative Normal NEGATIVE [facility] Comment on above: Performed By: #### H H #### [facility] [address] [place] [address] Dr. Bella Jerome Clarity (U) CLEAR Normal CLEAR [facility] Comment on above: Performed By: #### H H #### [facility] [address] [place] [address] Dr. Bella Jerome Color (U) LT. YELLOW Normal YELLOW [facility] Comment on above: Performed By: #### H H #### [facility] [address] [place] [address] Dr. Bella Jerome Glucose Ql (U) Negative Normal NEGATIVE [facility] Comment on above: Performed By: #### H H #### [facility] [address] [place] [address] Dr. Bella Jerome Hemoglobin Ql (U) Negative Normal NEGATIVE [facility] Comment on above: Performed By: #### H H #### [facility] [address] [place] [address] Dr. Bella Jerome Ketones Ql (U) Negative Normal NEGATIVE [facility] Comment on above: Performed By: #### H H #### [facility] [address] [place] [address] Dr. Bella Jerome LEUKOCYTES Negative Normal NEGATIVE [facility] Comment on above: Performed By: #### H H #### [facility] [address] [place] [address] Dr. Bella Jerome Nitrite Ql (U) Negative Normal NEGATIVE [facility] Comment on above: Performed By: #### H H #### [facility] [address] [place] [address] Dr. Bella Jerome pH (U) 7.0 [pH] Normal 5-9 [facility] Comment on above: Performed By: #### H H #### [facility] [address] [place] [address] Dr. Bella Jerome SPEC GRAVITY <=1.005 Abnormal 1.005-<=1.025 [facility] Comment on above: Performed By: #### H H #### [facility] [address] [place] [address] Dr. Bella Jerome UA PROTEIN Negative Normal NEGATIVE/ TRACE [facility] Comment on above: Performed By: #### H H #### [facility] [address] [place] [address] Dr. Bella Jerome UR MICRO IND NOT INDICATED Normal [facility] Comment on above: Performed By: #### H H #### [facility] [address] [place] [address] Dr. Bella Jerome Urobilinogen Qn (U) 0.2 {Kimberlee'U}/dL Normal 0.2 - 1. 0 [facility] Comment on above: Performed By: #### H H #### [facility] [address] [place] [address] Dr. Bella Jerome PREG GROWTHon 06-27-2022 US [...] RAGINI SANTOS Date: 2022-06-27 16:23 Normal [facility] FREE T4on 06-20-2022 Free T4 [Mass/Vol] 0.82 ng/dL Normal 0.76-1.46 [facility] Comment on above: Performed By: #### H H #### [facility] [address] [place] [address] Dr. Bella Jerome GLUCOSE - 1HRon 06-20-2022 Glucose [Mass/Vol] 127 mg/dL Critically high 74-106 [facility] Comment on above: Performed By: #### H H #### [facility] [address] [place] [address] Dr. Bella Jerome HEMOGRAM AND PLATELon 2021 Hematocrit (Bld) [Volume fraction] 32.4 % Critically low 36.0-48.0 [facility] Comment on above: Performed By: #### H H #### [facility] [address] [place] [address] Dr. Bella Jerome Hemoglobin (Bld) [Mass/Vol] 10.9 g/dL Critically low 12.0-16.0 [facility] Comment on above: Performed By: #### H H #### [facility] [address] [place] [address] Dr. Bella Jerome MCH (RBC) [Entitic mass] 32.9 pg Normal 26.7-34.0 [facility] Comment on above: Performed By: #### H H #### [facility] [address] [place] [address] Dr. Bella Jerome MCHC (RBC) [Mass/Vol] 33.6 g/dL Normal 29.9-35.2 [facility] Comment on above: Performed By: #### H H #### [facility] [address] [place] [address] Dr. Bella Jerome MCV (RBC) [Entitic vol] 97.9 fL Normal 81.0-99.0 [facility] Comment on above: Performed By: #### H H #### [facility] [address] [place] [address] Dr. Bella Jerome PLT 241 103/ul Normal 150-450 [facility] Comment on above: Performed By: #### H H #### [facility] [address] [place] [address] Dr. Bella Jerome RBC 3.31 106/ul Critically low 4.20-5.40 [facility] Comment on above: Performed By: #### H H #### [facility] [address] [place] [address] [address] Bella Jerome WBC 11.3 103/ul Critically high 4.0-11.0 [facility] Comment on above: Performed By: #### H H #### [facility] [address] [id number] Bella Jerome TSHon 06-20-2022 TSH 3.044 uIU/mL Normal 0.358-3.740 [facility] Comment on above: Performed By: #### C BC #### [facility] [address] [place] [address] [address] Bella Jerome US PREG INCOMPLETE ANATOMYon 05-24-2022 US PREG INCOMPLETE ANATOMY EXAMINATION: US PREG INCOMPLETE ANATOMY HISTORY: screening COMPARISON: Ultrasound anatomy 04/26/2022 FINDINGS: Presentation: Cephalic Heart rate: 154 bpm Anatomy: Cervical, thoracic, and lumbar spine HERNANDO: 09/13/2022 IMPRESSION: 1. Adequate visualization of the cervical, thoracic, and lumbar spine; no appreciable abnormality. Electronically authenticated by: RAGINI SANTOS Date: 2022-05-24 17:33 Normal [facility] US PREG ANATOMY SINGLEon US PREG [...] MANUELITO GREGG Date: 2022-04-26 16:54 Normal [facility] CHLAMYDIA/GONOCOCCUS FAVIAN (SW AB/URINE/PAPon 04-19-2022 Chlamydia trachomatis, FAVIAN Negative Normal Negative [facility] Comment on above: Performed By: #### C T/NGNA ####[facility] [address] [place] [address]Dr. Bella Jerome Neisseria gonorrhoeae, FAVIAN Negative Normal Negative [facility] Comment on above: Performed By: #### C T/NGNA ####[facility] [address] [place] [address]Dr. Bella Jerome VAGINITIS/VAGINOSIS DNA PROB Leonid 04-18-2022 Jessica species Negative Normal Negative [facility] Comment on above: Performed By: #### H H #### [facility] [address] [place] [address] [address] Bella Jerome Gardnerella vaginalis Negative Normal Negative [facility] Comment on above: Performed By: #### H H #### [facility] [address] [place] [address] [address] Bella Jerome Trichomonas vaginalis Negative Normal Negative [facility] Comment on above: Performed By: #### H H #### [facility] [address] [place] [address] [address] Bella Jerome FREE T4on 2022 Free T4 [Mass/Vol] 0.88 ng/dL Normal 0.76-1.46 [facility] Comment on above: Performed By: #### F T4 #### [facility] [address] [place] [address] Dr. Bella Jerome TSHon 04-05-2022 TSH 1.786 uIU/mL Normal 0.358-3.740 [facility] Comment on above: Performed By: #### T SH ####[facility] [address] [place] [address]Dr. Bella Jerome TSH RANGE SEE BELOW Normal [facility] Comment on above: Result Comment: <0.3 4 UIU/ml HYPERTHYROID 0.34-5.60 UIU/ml EUTHYROID >5.60 UIU/ml HYPOTHYROID Performed By: #### T SH ####[facility] [address] [place], [place] [address]Dr. Bella Jerome FREE T4on 02-26-2022 Free T4 [Mass/Vol] 1.06 ng/dL Normal 0.76-1.46 [facility] Comment on above: Performed By: #### C BC #### [facility] [address] [place] [address] Dr. Bella Jerome TSHon 02-26-2022 TSH 2.024 uIU/mL Normal 0.470-4.680 [facility] Comment on above: Performed By: #### C BC #### [facility] [address] [place] [address] Dr. Bella Jerome TSH RANGE SEE BELOW Normal [facility] Comment on above: Result Comment: <0.3 4 UIU/ml HYPERTHYROID 0.34-5.60 UIU/ml EUTHYROID >5.60 UIU/ml HYPOTHYROID Performed By: #### C BC #### [facility] [address] [place] [address] Dr. Bella Jerome Vital Signs Date Time Vital Sign Value Performing Clinician Facility 02-13-2024 11:24-0400 Body height 160.02 cm [facility] 02-13-2024 11:24-0400 Body mass index (BMI) [Ratio] 42.3 kg/m2 [facility] 02-13-2024 11:24-0400 Body weight 108.49 kg [facility] 02-13-2024 11:24-0400 Diastolic blood pressure 70 mm[Hg] [facility] 02-13-2024 11:24-0400 Heart rate 69 /min [facility] 02-13-2024 11:24-0400 Respiratory rate 18 /min [facility] 02-13-2024 11:24-0400 SaO2% (BldA) [Mass fraction] 98 % [facility] 02-13-2024 11:24-0400 Systolic blood pressure 118 mm[Hg] [facility] 10-31-2023 15:00-0500 Body height 160.02 cm Sandra Austin Other [facility] Other 10-31-2023 15:00-0500 Body mass index (BMI) [Ratio] 45.41 kg/m2 Sandra Austin Other [facility] [employer] Other 10-31-2023 15:00-0500 Body temperature 98.5 [degF] Sandra Austin Other [facility] Other 10-31-2023 15:00-0500 Body weight 116.3 kg Sandra Austin Other [facility] Other 10-31-2023 15:00-0500 Diastolic blood pressure 80 mm[Hg] Sandra Austin Other [facility] Other 10-31-2023 15:00-0500 Respiratory rate 18 /min Sandra Austin Other [facility] Other 10-31-2023 15:00-0500 SaO2% (BldA) [Mass fraction] 98 % Sandra Austin Other [facility] Other 10-31-2023 15:00-0500 Systolic blood pressure 128 mm[Hg] Sandra Austin Other [facility] Other 06-24-2023 14:30-0400 Body height 160.02 cm Sandra Austin Other [facility] Other 06-24-2023 14:30-0400 Body mass index (BMI) [Ratio] 44.87 kg/m2 Sandra Austin Other [facility] Other 06-24-2023 14:30-0400 Body weight 114.9 kg Sandra Austin Other [facility] Other 06-24-2023 14:30-0400 Diastolic blood pressure 60 mm[Hg] Sandra Austin Other [facility] Other 06-24-2023 14:30-0400 Respiratory rate 18 /min Sandra Austin Other [facility] Other 06-24-2023 14:30-0400 SaO2% (BldA) [Mass fraction] 99 % Sandra Austin Other [facility] Other 06-24-2023 14:30-0400 Systolic blood pressure 110 mm[Hg] Sandra Austin Other [facility] Other 04-15-2023 09:25-0400 Body height 160.02 cm Ramonita Greenberg Other [facility] Other 04-15-2023 09:25-0400 Body mass index (BMI) [Ratio] 41.8 kg/m2 Ramonita Greenberg Other [facility] Other 04-15-2023 09:25-0400 Body temperature 98.5 [degF] Ramonita Greenberg Other [facility] Other 04-15-2023 09:25-0400 Body weight 107.05 kg Ramonita Greenberg Other [facility] Other 04-15-2023 09:25-0400 Respiratory rate 18 /min Ramonita Greenberg Other [facility] Other 04-15-2023 09:25-0400 SaO2% (BldA) [Mass fraction] 97 % Ramonita Greenberg Other [facility] Other 02-21-2023 14:45-0400 Body height 160.02 cm Sandra Geovanna Other [facility] Other 02-21-2023 14:45-0400 Body mass index (BMI) [Ratio] 41.39 kg/m2 Sandra Austin Other [facility] Other 02-21-2023 14:45-0400 Body weight 106.01 kg Sandra Austin Other [facility] Other 02-21-2023 14:45-0400 Diastolic blood pressure 60 mm[Hg] Sandra Austin Other [facility] Other 02-21-2023 14:45-0400 Respiratory rate 18 /min Sandra Austin Other [facility] Other 02-21-2023 14:45-0400 SaO2% (BldA) [Mass fraction] 98 % Sandra Austin Other [facility] Other 02-21-2023 14:45-0400 Systolic blood pressure 110 mm[Hg] Sandra Austin Other [facility] Other 12-24-2022 14:30-0500 Body height 160.02 cm Sandra Austin Other [facility] Other 12-24-2022 14:30-0500 Body mass index (BMI) [Ratio] 40.83 kg/m2 Sandra Austin Other [facility] Other 12-24-2022 14:30-0500 Body weight 104.55 kg Sandra Austin Other [facility] Other 12-24-2022 14:30-0500 Diastolic blood pressure 70 mm[Hg] Sandra Austin Other [facility] Other 12-24-2022 14:30-0500 Respiratory rate 18 /min Sandra Austin Other [facility] Other 12-24-2022 14:30-0500 SaO2% (BldA) [Mass fraction] 99 % Sandra Austin Other [facility] Other 12-24-2022 14:30-0500 Systolic blood pressure 118 mm[Hg] Sandra Austin Other [facility] Other 12-21-2021 16:30-0500 Body height 160.02 cm Sandra Austin Other [facility] Other 12-21-2021 16:30-0500 Body mass index (BMI) [Ratio] 38.58 kg/m2 Sandra Austin Other [facility] Other 12-21-2021 16:30-0500 Body temperature 97.3 [degF] Sandra Austin Other [facility] Other 12-21-2021 16:30-0500 Body weight 98.79 kg Sandra Austin Other [facility] Other 12-21-2021 16:30-0500 Diastolic blood pressure 60 mm[Hg] Sandra Austin Other [facility] Other 12-21-2021 16:30-0500 Respiratory rate 18 /min Sandra Austin Other [facility] Other 12-21-2021 16:30-0500 SaO2% (BldA) [Mass fraction] 99 % Sandra Austin Other [facility] Other 12-21-2021 16:30-0500 Systolic blood pressure 118 mm[Hg] Sandra Austin Other [facility] Other Encounters Encounter Date Encounter Type Care Provider Facility Start: 07-21-2024 End: 07-21-2024 ambulatory AGUS HANSA Not Available Start: 07-07-2024 End: 07-07-2024 ambulatory AGUS HANSA Not Available Start: 2024 End: 2024 ambulatory AGUS HANSA Not Available Start: 05-12-2024 End: 05-12-2024 ambulatory ENDY PRIEST Not Available Start: 04-16-2024 End: 04-16-2024 ambulatory AGUS HANSA Not Available Start: 03-17-2024 End: 03-17-2024 ambulatory AGUS HANSA Not Available Start: 02-14-2024 End: 02-14-2024 ambulatory AGUS HANSA Not Available Start: 02-13-2024 End: 02-13-2024 ambulatory [facility] Work Phone: Start: 02-13-2024 End: 02-13-2024 Patient encounter procedure [facility] Work Phone: Start: 12-16-2023 Non-patient / Non-visit [facility] Work Phone: Start: 12-16-2023 End: 12-16-2023 ambulatory AGUS HANSA Not Available Start: 10-31-2023 End: 10-31-2023 ambulatory Sandra Austin Other [facility] Other Start: 10-31-2023 Office outpatient vi sit 25 minutes Sandra Austin [facility] Start: 07-19-2023 End: 07-19-2023 ambulatory Sandra Austin Other [facility] Other Start: 07-19-2023 Telephone encounter Sandra Guevara [facility] Start: 06-24-2023 End: 06-24-2023 ambulatory Sandra Austin Other [facility] Other Start: 06-24-2023 Office outpatient vi sit 25 minutes Sandra Austin [facility] Start: 06-04-2023 End: 06-04-2023 ambulatory Sandra Austin Other [facility] Other Start: 06-04-2023 Telephone encounter Sandra Guevara [facility] Start: 04-15-2023 End: 04-15-2023 ambulatory Ramonita Greenberg Other [facility] Other Start: 04-15-2023 Office outpatient vi sit 15 minutes Ramonita Greenberg [facility] [place] Start: 04-11-2023 End: 04-11-2023 ambulatory Sandra Austin Other [facility] Other Start: 04-11-2023 Telephone encounter Sandra Guevara [facility] Start: 02-21-2023 Office outpatient vi sit 25 minutes Sandra Austin [facility] Start: 02-21-2023 End: 02-22-2023 ambulatory SANDRA AUSTIN [facility] Other Start: 01-04-2023 End: 01-04-2023 ambulatory Sandra Austin Other [facility] Other Start: 01-04-2023 Telephone encounter Sandra Guevara [facility] [place] Start: 12-30-2022 Encounter for genera l adult medical examination without abnormal findings SANDRA AUSTIN [facility] Start: 12-27-2022 End: 12-27-2022 ambulatory Sandra Austin Other [facility] Other Start: 12-27-2022 Telephone encounter Sandra Guevara [facility] Start: 12-26-2022 End: 12-27-2022 ambulatory SANDRA AUSTIN Facility:[facility]1 Start: 12-26-2022 End: 12-27-2022 Encounter for general adult medical examination without abnormal findings SANDRA AUSTIN Facility:[facility] Start: 12-24-2022 End: 12-24-2022 ambulatory Sandra Austin Other [facility] Other Start: 12-24-2022 Encounter for genera l adult medical examination without abnormal findings Sandra Austin [facility] [place] Start: 12-24-2022 Periodic preventive med est patient 18-39 yrs Sandra Austin [facility] Start: 12-10-2022 End: 12-10-[address] AGUS [...] Facility:[facility] Start: 07-25-2022 End: 07-26-2022 ambulatory SANDRA AUSTIN Facility:[facility] Start: 07-24-2022 End: 07-25-2022 ambulatory SANDRA AUSTIN Facility:[facility] Start: 07-20-2022 End: 07-20-2022 ambulatory SANDRA AUSTIN Facility:[facility] Start: 06-27-2022 End: 06-28-2022 ambulatory SANDRA DEONNALE Facility:[facility] Start: 06-20-2022 End: 06-21-2022 ambulatory SANDRAVALERY YINGLE Facility:[facility] Start: 05-24-2022 End: 05-25-2022 ambulatory SANDRA DEONNALE Facility:[facility] Start: 04-26-2022 End: 04-27-2022 ambulatory SANDRAJADIEL AUSTIN Facility:[facility] Start: 04-17-2022 End: 04-17-2022 ambulatory SANDRA DEONNALE Facility:[facility] Start: 04-05-2022 End: 04-06-2022 ambulatory SANDRA AUSTIN Facility:[facility] Start: 02-26-2022 End: 02-27-2022 ambulatory SANDRA AUSTIN Facility:[facility] Start: 12-21-2021 End: 12-21-2021 ambulatory Sandra Austin Other [facility] Other Start: 12-21-2021 Office outpatient ne w 45 minutes Sandra Austin [facility] [place] Procedures Date Procedure Procedure Detail Performing Clinician [...] Patient Education Low back pain in adults [facility] Work Phone: Payers Date Payer Category Payer Unknown [id number] 2. [id number] 1997 Unknown [id number] 2.16.84 0.1.197731.3.579.2.593 1997 Unknown [id number] 2.16.84 0.1.465526.3.579.2.593 1997 Unknown [id number] 2.16.84 0.1.065794.3.579.2.593 1997 Unknown [id number] 2.16.84 0.1.445055.3.579.2.593 1997 Unknown [id number] 2.16.84 0.1.215288.3.579.2.593 1997 Unknown [id number] 2.16.84 0.1.714947.3.579.2.593 1997 Unknown [id number] 2.16.84 0.1.548624.3.579.2.593 1997 Unknown [id number] 2.16.84 0.1.394902.3.579.2.593 1997 Unknown [id number] 2.16.84 0.1.361478.3.579.2.593 1997 Unknown [id number] 2.16.84 0.1.311179.3.579.2.593 1997 Unknown [id number] 2.16.84 0.1.217068.3.579.2.593 1997 Unknown [id number] 2.16.84 0.1.952074.3.579.2.593 1997 Unknown [id number] 2.16.84 0.1.128439.3.579.2.593 1997 Unknown [id number] 2.16.84 0.1.802030.3.579.2.593 1997 Unknown [id number] 2.16.84 0.1.527533.3.579.2.593 1997 Unknown [id number] 2.16.84 0.1.325082.3.579.2.593 1997 Unknown [id number] 2.16.84 0.1.355437.3.579.2.593 1997 Unknown [id number] 2.16.84 0.1.902175.3.579.2.593 1997 Unknown [id number] 2.16.84 0.1.627666.3.579.2.593 1997 Unknown [id number] 2.16.84 0.1.223010.3.579.2.593 1997 Unknown [id number] 2.16.84 0.1.014569.3.579.2.593 1997 Unknown [id number] 2.16.84 0.1.632857.3.579.2.593 1997 Unknown [id number] 2.16.84 0.1.185511.3.579.2.593 1997 Unknown [id number] 2.16.84 0.1.218303.3.579.2.1259 1997 Unknown [id number] 2.16.84 0.1.133822.3.579.2.1259 1997 Unknown [id number] 2.16.84 0.1.187035.3.579.2.1259 1997 Unknown [id number] 2.16.84 0.1.472067.3.579.2.1259 1997 Unknown [id number] 2.16.84 0.1.516836.3.579.2.1259 1997 Unknown [id number] 2.16.84 0.1.461106.3.579.2.1259 1997 Unknown [id number] 2.16.84 0.1.046708.3.579.2.1259 1997 Unknown [id number] 2.16.84 0.1.021261.3.579.2.1259 1957 Medicaid [id number] 2. 16.840.1.413437.19 1957 Private Health Insurance [id number] .16.840.1.360858.19 Self-pay Self Pay [id number] Unknown [place] [id number] Social History Date Type Detail Facility Sex Assigned At [employer] Other Start: 1995 Sex Assigned At Female F [facility] Clinical Notes 12-21-2021 to 10-31-2023 Note Date [...] E28.2) She will continue to follow with [facility] and continue healthy lifestyle changes that she [...] course of antibiotic. Increase fluids and rest. [id number] antipyretics as needed. Warning signs and symptoms reviewed with patient today. Patient to go immediately to the ER should she experience any of these. Patient to notify office should her symptoms persist and not improve. Patient verbalizes understanding and agrees to treatment plan. [facility] Other 09-22-2023 Evaluation note* Encounter Date Diagnosis Assessment Notes Treatment Notes Treatment Clinical Notes Jun, Vitamin D insufficiency (ICD-10 - E55.9) [facility] Other 08-28-2023 Evaluation note* Encounter Date Diagnosis [...] E28.2) She will continue to follow with [facility] and continue healthy lifestyle changes that she [...] ENT today. Specialty notes reviewed as received. [facility] Other 08-08-2023 Evaluation note* Encounter Date Diagnosis Assessment Notes Treatment Notes Treatment Clinical Notes May, Other atopic dermatitis (ICD-10 - L20.89) May, Acute otitis externa of both ears, unspecified type (ICD-10 - H60.503) [facility] Other 06-19-2023 Evaluation note* Encounter Date Diagnosis [...] no improvement in 2 to 3 days [facility] Other 06-15-2023 Evaluation note* Encounter Date Diagnosis Assessment Notes Treatment Notes Treatment Clinical Notes Mar, Anxiety (ICD-10 - F41.9) [facility] Other 04-27-2023 Evaluation note* Encounter Date Diagnosis [...] period. Will plan on rechecking this at [place] appointment. [facility] Other 03-10-2023 Evaluation note* Encounter Date Diagnosis Assessment Notes Treatment Notes Treatment Clinical Notes Dec, Bacterial conjunctivitis (ICD-10 - H10.9) [facility] Other 03-02-2023 Evaluation note* Encounter Date Diagnosis Assessment Notes Treatment Notes Treatment Clinical Notes Dec, Vitamin D insufficiency (ICD-10 - E55.9) Dec, Elevated alkaline phosphatase level (ICD-10 - R74.8) Dec, Other specified hypothyroidism (ICD-10 - E03.8) [facility] Other 02-27-2023 Evaluation note* Encounter Date Diagnosis [...] ordered. Follow routinely with eye doctor, dentist, [facility]. Patient is advised to work on healthy diet choices and appropriate servings, weight control, regular exercise as directed, reduced fat intake, and salt avoidance. Patient voiced understanding of this and agrees to this plan. Nov, PCOS (polycystic ovarian syndrome) (ICD-10 - E28.2) Routine lab work ordered. She will continue to follow with [facility] and continue healthy lifestyle changes that she [...] homicidal ideations. Started on Celexa by her [facility]. Very stable on Celexa 20 mg daily. [...] her ears still persist after starting this. [facility] Other 02-24-2022 Evaluation note* Encounter Date Diagnosis Assessment Notes Treatment Notes Treatment Clinical Notes Nov, Prediabetes (ICD-10 - R73.03) She was recently dx with prediabetes and was started on Metformin 500 mg BID 2 weeks ago by her [facility]. She would like to follow with our [...] - E28.2) She is following with her OB[facility] for her PCOS and is currently on Metformin 500 mg BID and is taking medication to help her get . She will continue to follow with [facility] and continue healthy lifestyle changes that she [...] of fatigue, difficulty losing weight by her [facility]. She would like to start following with [...] of this and agrees to this plan. [facility] Other Evaluation note* Diagnosis Onset Date Resolution Status 8 weeks gestation of acute Low back pain [facility] Work Phone: History general Narrative - Reported* Type Description Date Medical History PCOS Medical History THYROID ISSUES Surgical History THIRD NIPPLE REMOVED Surgical History Colonoscopy-normal 2018 [facility] Other Summary Purpose Family History No Family [...] content) EST CARE1 year Follow up, hg [id number] resultspink eyepossible mastitisstrep throatanxietyear gtts6 month Follow uprefill4 month Follow up, hgba1c INFORMATION SOURCE (unrecogn ized section and content) DATE CREATED AUTHOR 02/25/2023 [facility] DATE CREATED AUTHOR AUTHOR'S ORGANIZ ATION 07/23/2024 [facility] Care Teams (unrecognized sec tion and content) [...] BE BASED ON THE PRIMARY CLINICAL RECORDS. [facility] [employer] provides no warranty or guarantee of the accuracy or completeness of information in this document.
--- NOTE | 2024-08-05 13:59 | US_ITS ---
[place] [id number] Patient Name: SOFIA ZEPEDA MRN: [facility]:[id number] date: 1995 Sex: F Assigned Patient Location: [facility] Current Patient Location: [facility] Accession/Order Number: [id number] Exam Date: 08/05/2024 14:00 Report Date: 08/05/2024 15:21 At the request of: AGUS SANTO Procedure: US OB BPP w non-stress EXAMINATION: US OB BPP w non-stress HISTORY:Abnormal TSH R79.89 COMPARISON: Ultrasound OB growth 07/07/2024 TECHNIQUE: Ultrasound biophysical profile was performed in the radiology department. BREATHING MOVEMENTS: 2 GROSS BODY MOVEMENTS: 2 TONE: 2 QUALITATIVE AMNIOTIC FLUID VOLUME: 2 PRESENTATION: CEPHALIC HEART RATE: 130.43 bpm AMNIOTIC FLUID VOLUME: 17.73 cm GESTATIONAL AGE: 32 weeks 5 days US/US OB BPP w non-stress IMPRESSION: Total biophysical profile score: 8 Electronically authenticated by: RAGINI SANTOS Date: 08/05/2024 15:21
[2024-08-05 14:24] VITALS: BP 121/71; PULSE 88
[2024-08-05 16:24] LABS: Thyroid Stimulating Hormone 1.227 uIU/mL (0.358-3.740)
== END 2024-08-05 15:00 | disposition home or self-care (01) ==
LOC: US 12:51 → FBC 13:56
PROVIDERS: PCP Nurse Practitioner Family; Visit Provider Obstetrics & Gynecology
DX: O99.280 Endocrine, nutritional and metabolic diseases complicating pregnancy, unspecified trimester (principal); R79.89 Other specified abnormal findings of blood chemistry; E07.9 Disorder of thyroid, unspecified; Z3A.32 32 weeks gestation of pregnancy
CPT/HCPCS: 36415; 76818; 84443

== ENCOUNTER 2024-08-08 06:27 | Outpatient (OUT) | payer OTHER, SELFPAY ==
--- OUTSIDE RECORDS SUMMARY | 2024-08-08 06:31 | XMS_ITS | CCD ---
Author Organization [facility] Care Team Providers Care Director Of Ancillary Services Name Role Phone [facility] Un[facility] KAP, SANDRA Primary Care Unavailable [...] Consulting Unavailable KAPLE, SANDRA Primary Care Unavailable HNASA ., DR GOLDSMITH Attending Unavailable KAPLE, SANDRA [...] Unavailabl e JODIE ., DR HU Consulting Unavailabl e BARNARD, DR MANUELITO Foley Consulting Unavailable HANSA ., DR GOLDSMITH Consulting Unavailable SANDRA AUSTIN Primary Care Unavailable HANSA ., DR GOLDSMITH Attending Unavailable BARNARD, DR MANUELITO Foley Consulting Unavailable HANSA ., DR GOLDSMITH Admitting Unavailable HANSA ., DR GOLDSMITH Consulting Unavailable Ramonita Greenberg Unavailable ENDY PRIEST Attending Unavailable HANSA, AGUS [...] hours February 13, 2024 12:00am polymyxin b 53349 unt/ml / trimethoprim 1 mg/ml ophthalmic solution (3 sources) Dihydrofolate Reductase Inhibitor Antibacterial, Polymyxin-class Antibacterial Start: 01-05-20 Polymyxin B-Trimethoprim 54655-0.1 UNIT/ML 1 drop into affected eye Ophthalmic [...] acid 7540 MG / polyethylene glycol 3350 52596 MG / potassium chloride 1200 MG / sodium ascorbate 29337 MG / sodium chloride 3200 MG Powder for Oral Solution) / 1 (polyethylene glycol 3350 148525 MG / potassium chloride 1000 MG / [...] DNA Probe+sig amp Ql (Cvx) Note . [facility] Comment on above: TESTS RESULT FLAG UN ITS REF RANGE LAB DI AGNOSIS: 02 NEGATIVE FOR INTRAEPITHELIAL LESION OR MALIGNANCY.Specimen adequacy: 02 Satisfactory for evaluation. Endocervical and/or squamous metaplastic cells (endocervical component) are present.Performed by: Troy Duran, Puddler Helper (ASC). 02Note: Note 02 The Pap smear is a screening test designed to aid in the detection of premalignant and malignant conditions of the uterine cervix. It is not a diagnostic procedure and should not be used as the sole means of detecting cervical cancer. Both false-positive and false-negative reports do occur.Test Methodology: Note 02 The [facility]) Vacuum Spindle Sander was unable to read this specimen. Therefore a manual review was performed. ----- FLAG LEGEND: L-Low Normal,H-High Normal,LL-Alert Low,HH-Alert High <-Panic Low,>-Panic High,A-Abnormal,AA-Critical Abnormal ---Performed at:[address] [facility] [address] Heavenly Serrano MD, . 02 The HPV DNA reflex criteria were not met with this specimen result therefore, no HPV testing was performed.The HPV DNA reflex criteria were not met with this specimenresult therefore, no HPV testing was performed.Performed at: =[facility] [place], [place] [id number] Director: Heavenly Serrano MD, Phone: [phone] at: - [facility] [id number] Director: Heavenly Serrano MD, Phone: [phone] No Panel Informationon 12-16 Reference Lab Test Patient Age Note . [facility] Comment on above: TESTS RESULT FLAG UN ITS REF RANGE LAB Clinician Provided Cytology Information Source.............Cervix No. of containers..01 ThinPrep VialAge Zhen PUENTES Leslye... FLAG LEGEND: L-Low Normal,H-High Normal,LL-Alert Low,HH-Alert High <-Panic Low,>-Panic High,A-Abnormal,AA-Critical Abnormal ---Performed at:01 =G [facility] [place] [address] Heavenly Serrano MD, A1C HEMOGLOBINon 10-31-2023 HbA1c (Bld) [Mass fraction] 5.8 % [facility] Other HbA1c (Bld) [Mass fraction]o n 10-31-2023 A1C HEMOGLOBIN Consignd Other A1C HEMOGLOBINon 06-24-2023 HbA1c (Bld) [Mass fraction] 5.2 % [facility] Other HbA1c (Bld) [Mass fraction]o n 06-24-2023 A1C HEMOGLOBIN Consignd Other Quick Strepon 04-15-2023 S. pyogenes Org specific cx Ql (Throat) Positive [facility] Other Quick Strep [facility] Other FREE T4on 02-21-2023 Free T4 [Mass/Vol] 0.89 ng/dL Normal 0.76-1.46 [facility] Comment on above: Performed By: #### H H #### [facility] [address] [place] [address] Dr. Bella Jerome PROF 14(COMP METB)on 023 Albumin [Mass/Vol] 3.7 g/dL Normal 3.4-5.0 [facility] Comment on above: Performed By: #### H H #### [facility] [address] [address] [address] Bella Jerome Albumin/Globulin [Mass ratio] 0.9 {ratio} Normal [facility] Comment on above: Performed By: #### H H #### [facility] [address] [address] [address] Bella Jerome ALP [Catalytic activity/Vol] 132 U/L Critically high 46-116 [facility] Comment on above: Performed By: #### H H #### [facility] [address] [address] [address] Bella Jerome ALT [Catalytic activity/Vol] 32 U/L Normal 14-59 [facility] Comment on above: Performed By: #### H H #### [facility] [address] [address] [address] Bella Jerome Anion gap [Moles/Vol] 12.8 mmol/L Normal [facility] Comment on above: Performed By: #### H H #### [facility] [address] [place] [address] Dr. Bella Jerome AST [Catalytic activity/Vol] 23 U/L Normal 15-37 [facility] Comment on above: Performed By: #### H H #### [facility] [address] [place] [address] Dr. Bella Jerome Bilirubin [Mass/Vol] 0.6 mg/dL Normal 0.2-1.0 [facility] Comment on above: Performed By: #### H H #### [facility] [address] [place] [address] Dr. Bella Jerome Calcium [Mass/Vol] 9.0 mg/dL Normal 8.5-10.1 [facility] Comment on above: Performed By: #### H H #### [facility] [address] [place] [address] Dr. Bella Jerome Chloride [Moles/Vol] 102 mmol/L Normal 98-107 [facility] Comment on above: Performed By: #### H H #### [facility] [address] [place] [address] Dr. Bella Jerome CO2 [Moles/Vol] 28.2 mmol/L Normal 21.0-32.0 [facility] Comment on above: Performed By: #### H H #### [facility] [address] [place] [address] Dr. Bella Jerome Creatinine [Mass/Vol] 0.67 mg/dL Normal 0.55-1.02 [facility] Comment on above: Performed By: #### H H #### [facility] [address] [place] [address] Dr. Bella Jerome EGFR-AF GREENLANDIC >60 Normal >=60 [facility] Comment on above: Performed By: #### H H #### [facility] [address] [place] [address] Dr. Bella Jerome EGFR-NON AF GREENLANDIC >60 Normal >=60 [facility] Comment on above: Performed By: #### H H #### [facility] [address] [place] [address] Dr. Bella Jerome Globulin (S) [Mass/Vol] 4.2 g/dL Normal [facility] Comment on above: Performed By: #### H H #### [facility] [address] [address] [address] Bella Jerome Glucose [Mass/Vol] 88 mg/dL Normal 74-106 [facility] Comment on above: Performed By: #### H H #### [facility] [address] [address] [address] Bella Jerome Potassium [Moles/Vol] 4.0 mmol/L Normal 3.5-5.1 [facility] Comment on above: Performed By: #### H H #### [facility] [address] [place] [address] Dr. Bella Jerome Protein [Mass/Vol] 7.9 g/dL Normal 6.4-8.2 [facility] Comment on above: Performed By: #### H H #### [facility] [address] [place] [address] Dr. Bella Jerome Sodium [Moles/Vol] 139 mmol/L Normal 136-145 [facility] Comment on above: Performed By: #### H H #### [facility] [address] [place] [address] Dr. Bella Jerome Urea nitrogen [Mass/Vol] 12.0 mg/dL Normal 7.0-18.0 [facility] Comment on above: Performed By: #### H H #### [facility] [address] [place] [address] Dr. Bella Jerome Urea nitrogen/Creatinine [Mass ratio] 17.9 mg/mg Normal [facility] Comment on above: Performed By: #### H H #### [facility] [address] [place] [address] Dr. Bella Jerome TSHon 02-21-2023 TSH 2.463 uIU/mL Normal 0.358-3.740 [facility] Comment on above: Performed By: #### H H #### [facility] [address] [place] [address] Dr. Bella Jerome VITAMIN D 25 OHon 02-21-2023 VIT D 25-OH 23.1 ng/mL Normal [facility] Comment on above: Performed By: #### H H #### [facility] [address] [place] [address] Dr. Bella Jerome VIT D RANGES SEE BELOW Normal [facility] Comment on above: Result Comment: <20 ng/mL Vit D deficient 20 - <30 ng/mL Vit D insufficient 30 - 100 ng/mL Vit D sufficient >100 ng/mL Potential Toxicity Performed By: #### H H #### [facility] [address] [place] [address] Dr. Bella Jerome CBC AUTO DIFFon 12-26-2022 BASO # 0.0 103/ul Normal 0.0-0.1 [facility] Comment on above: Performed By: #### C BC #### [facility] [address] [place] [address] Dr. Bella Jerome Basophils/100 WBC (Bld) 0.3 % Normal 0.2-2.0 [facility] Comment on above: Performed By: #### C BC #### [facility] [address] [place] [address] Dr. Bella Jerome EO # 0.1 103/ul Normal 0.0-0.7 [facility] Comment on above: Performed By: #### C BC #### [facility] [address] [place] [address] Dr. Bella Jerome Eosinophils/100 WBC (Bld) 1.6 % Normal 0.9-7.0 [facility] Comment on above: Performed By: #### C BC #### [facility] [address] [place] [address] Dr. Bella Jerome Erythrocyte distribution width (RBC) [Ratio] 12.7 % Normal 11.0-15.0 [facility] Comment on above: Performed By: #### C BC #### [facility] [address] [place] [address] Dr. Bella Jerome Hematocrit (Bld) [Volume fraction] 37.2 % Normal 36.0-48.0 [facility] Comment on above: Performed By: #### C BC #### [facility] [address] [place] [address] Dr. Bella Jerome Hemoglobin (Bld) [Mass/Vol] 12.5 g/dL Normal 12.0-16.0 [facility] Comment on above: Performed By: #### C BC #### [facility] [address] [place] [address] Dr. Bella Jerome IG # 0.02 10e3/ul Normal 0.00-0.03 [facility] Comment on above: Performed By: #### C BC #### [facility] [address] [place] [address] Dr. Bella Jerome IG % 0.3 % Normal 0.0-0.5 [facility] Comment on above: Performed By: #### C BC #### [facility] [address] [place] [address] Dr. Bella Jerome LYMPH # 2.3 103/ul Normal 1.2-3.8 [facility] Comment on above: Performed By: #### C BC #### [facility] [address] [place] [address] Dr. Bella Jerome Lymphocytes/100 WBC (Bld) 34.1 % Normal 20.5-60.0 [facility] Comment on above: Performed By: #### C BC #### [facility] [address] [place] [address] Dr. Bella Jerome MANUAL DIFF REQ NO Normal [facility] Comment on above: Performed By: #### C BC #### [facility] [address] [place] [address] Dr. Bella Jerome MCH (RBC) [Entitic mass] 30.9 pg Normal 26.7-34.0 [facility] Comment on above: Performed By: #### C BC #### [facility] [address] [place] [address] Dr. Bella Jerome MCHC (RBC) [Mass/Vol] 33.6 g/dL Normal 29.9-35.2 [facility] Comment on above: Performed By: #### C BC #### [facility] [address] [place] [address] Dr. Bella Jerome MCV (RBC) [Entitic vol] 91.9 fL Normal 81.0-99.0 [facility] Comment on above: Performed By: #### C BC #### [facility] [address] [place] [address] Dr. Bella Jerome MONO # 0.4 103/ul Normal 0.3-0.8 [facility] Comment on above: Performed By: #### C BC #### [facility] [address] [place] [address] Dr. Bella Jerome Monocytes/100 WBC (Bld) 5.1 % Normal 1.7-12.0 [facility] Comment on above: Performed By: #### C BC #### [facility] [address] [place] [address] Dr. Bella Jerome NEUT # 4.0 103/ul Normal 1.4-6.5 [facility] Comment on above: Performed By: #### C BC #### [facility] [address] [place] [address] Dr. Bella Jerome Neutrophils/100 WBC (Bld) 58.6 % Normal 43.0-75.0 [facility] Comment on above: Performed By: #### C BC #### [facility] [address] [place] [address] Dr. Bella Jerome Platelet mean volume (Bld) [Entitic vol] 11.5 fL Normal 9.5-13.5 [facility] Comment on above: Performed By: #### C BC #### [facility] [address] [place] [address] Dr. Bella Jerome PLT 243 103/ul Normal 150-450 [facility] Comment on above: Performed By: #### C BC #### [facility] [address] [place] [address] Dr. Bella Jerome RBC 4.05 106/ul Critically low 4.20-5.40 [facility] Comment on above: Performed By: #### C BC #### [facility] [address] [address] [address] Bella Jerome WBC 6.8 103/ul Normal 4.0-11.0 [facility] Comment on above: Performed By: #### C BC #### [facility] [address] [address] [address] Bella Jerome FREE T4on 12-26-2022 Free T4 [Mass/Vol] 1.05 ng/dL Normal 0.76-1.46 [facility] Comment on above: Performed By: #### F T4, VITAD, B12FOL, IRON ####[facility] [id number] [address]Dr. Bella Jerome GLYCOHEMOGLOBIN A1Con 2022 ADA RECOMMENDATION SEE BELOW Normal [facility] Comment on above: Result Comment: ADA RECOMMENDED LIMIT 4.0 - 6.0 ADA THERAPEUTIC TARGET < 7.0 ACTION SUGGESTED > 7.0 Performed By: #### A 1C #### [facility] [address] [address] [address] Bella Jerome Glucose [Mass/Vol] 103 mg/dL Normal [facility] Comment on above: Performed By: #### A 1C #### [facility] [address] [address] [address] Bella Jerome HbA1c (Bld) [Mass fraction] 5.2 % Normal 4.5-6.2 [facility] Comment on above: Performed By: #### A 1C #### [facility] [address] [address] [address] Bella Jerome IRONon 12-26-2022 Iron [Mass/Vol] 74.0 ug/dL Normal 50.0-170.0 [facility] Comment on above: Performed By: #### F T4, VITAD, B12FOL, IRON ####[facility] [id number] [address]. Bella Jerome LIPID PROFILEon 12-26-2022 CHOL-HDL RATIO NORM SEE BELOW Normal [facility] Comment on above: Result Comment: 3.3 - 4.4 LOW RISK 4.4 - 7.1 AVERAGE RISK 7.1 - 11.0 MODERATE RISK >11.0 HIGH RISK Performed By: #### C MP, TSH, LIPID #### [facility] [address] [address] [address] Bella Jerome Cholesterol [Mass/Vol] 153 mg/dL Normal <=200 [facility] Comment on above: Performed By: #### C MP, TSH, LIPID #### [facility] [address] [address] [address] Bella Jerome Cholesterol in HDL [Mass/Vol] 67 mg/dL Critically high 40-60 [facility] Comment on above: Performed By: #### C MP, TSH, LIPID #### [facility] [address] [address] [address] Bella Jerome Cholesterol in LDL [Mass/Vol] 77.2 mg/dL Normal [facility] Comment on above: Performed By: #### C MP, TSH, LIPID #### [facility] [address] [address] [address] Bella Jerome Cholesterol.total/Ch olesterol in HDL [Mass ratio] 2.3 {ratio} Normal [facility] Comment on above: Performed By: #### C MP, TSH, LIPID #### [facility] [address] [address] [address] Bella Jerome HDL NORMAL > or = 60 mg/dl - LOW CARDIOVASCULAR RISK <40 mg/dl - HIGH CARDIOVASCULAR RISK Normal [facility] Comment on above: Performed By: #### C MP, TSH, LIPID #### [facility] [address] [address] [address] Bella Jerome LDL CALC NORMAL SEE BELOW Normal [facility] Comment on above: Result Comment: <100 mg/dl OPTIMAL 100 - 129 mg/dl NEAR OR ABOVE OPTIMAL 130 - 159 mg/dl BORDERLINE HIGH 160 - 189 mg/dl HIGH >190 mg/dl VERY HIGH Performed By: #### C MP, TSH, LIPID #### [facility] [address] [address] [address] Bella Jerome Triglyceride [Mass/Vol] 44 mg/dL Normal <=150 [facility] Comment on above: Performed By: #### C MP, TSH, LIPID #### [facility] [address] [address] [address] Bella Jerome VLDL CALC 8.8 mg/dL Normal [facility] Comment on above: Performed By: #### C MP, TSH, LIPID #### [facility] [address] [address] [address] Bella Jerome MICROALB CREAT RATIO RANDOMo n 12-26-2022 mALB 2.3 mg/L Normal <=30.0 [facility] Comment on above: Performed By: #### H H #### [facility] [address] [place] [address] Dr. Bella Jerome MALB CR RATIO 17.4 mg/g Normal 0.0-29.9 [facility] Comment on above: Performed By: #### H H #### [facility] [address] [place] [address] Dr. Bella Jerome MALB CR RATIO RANGE SEE BELOW Normal [facility] Comment on above: Result Comment: NO M ICROALBUMINURIA 0-29 MG/G CLINICAL MICROALBUMINURIA 30-300 MG/G MACROALBUMINURIA >300 MG/G Performed By: #### H H #### [facility] [address] [place] [address] Dr. Bella Jerome URINE CREAT 131.90 mg/dL Normal 20.00-300.[address] [facility] Comment on above: Performed By: #### H H #### [facility] [address] [place] [address] Dr. Bella Jerome PROF 14(COMP METB)on 023 Albumin [Mass/Vol] 4.1 g/dL Normal 3.4-5.0 [facility] Comment on above: Performed By: #### C MP, TSH, LIPID #### [facility] [address] [address] [address] Bella Jerome Albumin/Globulin [Mass ratio] 1.3 {ratio} Normal [facility] Comment on above: Performed By: #### C MP, TSH, LIPID #### [facility] [address] [place] [address] Dr. Bella Jerome ALP [Catalytic activity/Vol] 124 U/L Critically high 46-116 [facility] Comment on above: Performed By: #### C MP, TSH, LIPID #### [facility] [address] [place] [address] Dr. Bella Jerome ALT [Catalytic activity/Vol] 16 U/L Normal 14-59 [facility] Comment on above: Performed By: #### C MP, TSH, LIPID #### [facility] [address] [place] [address] Dr. Bella Jeorme Anion gap [Moles/Vol] 13.4 mmol/L Normal [facility] Comment on above: Performed By: #### C MP, TSH, LIPID #### [facility] [address] [place] [address] Dr. Bella Jerome AST [Catalytic activity/Vol] 17 U/L Normal 15-37 [facility] Comment on above: Performed By: #### C MP, TSH, LIPID #### [facility] [address] [place] [address] Dr. Bella Jerome Bilirubin [Mass/Vol] 0.8 mg/dL Normal 0.2-1.0 [facility] Comment on above: Performed By: #### C MP, TSH, LIPID #### [facility] [address] [place] [address] Dr. Bella Jerome Calcium [Mass/Vol] 8.9 mg/dL Normal 8.5-10.1 [facility] Comment on above: Performed By: #### C MP, TSH, LIPID #### [facility] [address] [place] [address] Dr. Bella Jerome Chloride [Moles/Vol] 103 mmol/L Normal 98-107 [facility] Comment on above: Performed By: #### C MP, TSH, LIPID #### [facility] [address] [place] [address] Dr. Bella Jerome CO2 [Moles/Vol] 25.6 mmol/L Normal 21.0-32.0 [facility] Comment on above: Performed By: #### C MP, TSH, LIPID #### [facility] [address] [address] [address] Bella Jerome Creatinine [Mass/Vol] 0.55 mg/dL Normal 0.55-1.02 [facility] Comment on above: Performed By: #### C MP, TSH, LIPID #### [facility] [address] [address] [address] Bella Jerome EGFR-AF GREENLANDIC >60 Normal >=60 [facility] Comment on above: Performed By: #### C MP, TSH, LIPID #### [facility] [address] [address] [address] Bella Jerome EGFR-NON AF GREENLANDIC >60 Normal >=60 [facility] Comment on above: Performed By: #### C MP, TSH, LIPID #### [facility] [address] [address] [address] Bella Jerome Globulin (S) [Mass/Vol] 3.1 g/dL Normal [facility] Comment on above: Performed By: #### C MP, TSH, LIPID #### [facility] [address] [address] [address] Bella Jerome Glucose [Mass/Vol] 82 mg/dL Normal 74-106 [facility] Comment on above: Performed By: #### C MP, TSH, LIPID #### [facility] [address] [address] [address] Bella Jerome Potassium [Moles/Vol] 4.0 mmol/L Normal 3.5-5.1 [facility] Comment on above: Performed By: #### C MP, TSH, LIPID #### [facility] [address] [address] [address] Bella Jerome Protein [Mass/Vol] 7.2 g/dL Normal 6.4-8.2 [facility] Comment on above: Performed By: #### C MP, TSH, LIPID #### [facility] [address] [address] [address] Bella Jerome Sodium [Moles/Vol] 138 mmol/L Normal 136-145 [facility] Comment on above: Performed By: #### C MP, TSH, LIPID #### [facility] [address] [address] [address] Bella Jerome Urea nitrogen [Mass/Vol] 14.0 mg/dL Normal 7.0-18.0 [facility] Comment on above: Performed By: #### C MP, TSH, LIPID #### [facility] [address] [address] [address] Bella Jerome Urea nitrogen/Creatinine [Mass ratio] 25.5 mg/mg Normal [facility] Comment on above: Performed By: #### C MP, TSH, LIPID #### [facility] [address] [address] [address] Bella Jerome TSHon 12-26-2022 TSH 0.224 uIU/mL Critically low 0.358-3.740 [facility] Comment on above: Performed By: #### C MP, TSH, LIPID #### [facility] [address] [address] [address] Bella Jerome VIT B12 AND FOLATEon 023 Cobalamin (Vitamin B12) [Mass/Vol] 702.0 pg/mL Normal 193.0-986.0 [facility] Comment on above: Performed By: #### F T4, VITAD, B12FOL, IRON ####[facility] [id number] [address]Dr. Bella Jerome FOLATE 25.10 ng/mL Normal 8.60-58.90 [facility] Comment on above: Performed By: #### F T4, VITAD, B12FOL, IRON ####[facility] [address] [address]Dr. Bella Jerome VITAMIN D 25 OHon 12-26-2022 VIT D 25-OH 25.4 ng/mL Normal [facility] Comment on above: Performed By: #### F T4, VITAD, B12FOL, IRON ####[facility] [address] [address]Dr. Bella Jerome VIT D RANGES SEE BELOW [facility] Comment on above: Result Comment: <20 ng/mL Vit D deficient 20 - <30 ng/mL Vit D insufficient 30 - 100 ng/mL Vit D sufficient >100 ng/mL Potential Toxicity Performed By: #### F T4, VITAD, B12FOL, IRON ####[facility] [address] [place], [place] [address]UpDr. Bella Jerome PAP ACOG PANEL 2: 23 to 31on 12-18-2022 . . Normal [facility] Comment on above: Performed By: #### C BC #### [facility] [address] [address] [address] Bella Jerome Age Gdln ACOG Testing [facility] Comment on above: Performed By: #### C BC #### [facility] [address] [address] [address] Bella Jerome DIAGNOSIS: Comment [facility] Comment on above: Result Comment: NEGA TIVE FOR INTRAEPITHELIAL LESION OR MALIGNANCY. Performed By: #### C BC #### [facility] [facility] [address] [address] [address] Bella Jerome Methodology: Comment [facility] Comment on above: Result Comment: This liquid based ThinPrep(R) pap test was screened with the use of an image guided system. Performed By: #### C BC #### [facility] [address] [address] [address] Bella Jerome Note: Comment [facility] Comment on above: Result Comment: The Pap smear is a screening test designed to aid in the detection of premalignant and malignant conditions of the uterine cervix. It is not a diagnostic procedure and should not be used as the sole means of detecting cervical cancer. Both false-positive and false-negative reports do occur. . Performed By: #### C BC #### [facility] [address] [address] [address] Bella Jerome Performed by: Comment Normal [facility] Comment on above: Result Comment: Byron Irby, Puddler Helper (ASCP) Performed By: #### C BC #### [facility] [address] [address] [address] Bella Jerome Reflex Criteria: Comment Normal [facility] Comment on above: Result Comment: The HPV DNA reflex criteria were not met with this specimen result therefore, no HPV testing was performed. . Performed By: #### C BC #### [facility] [address] [place] [address] Dr. Bella Jerome Specimen adequacy: Comment Normal [facility] Comment on above: Result Comment: Sati sfactory for evaluation. Endocervical and/or squamous metaplastic cells (endocervical component) are present. Performed By: #### C BC #### [facility] [address] [place] [address] Dr. Bella Jerome CBC W MANUAL DIFFon 09-07-20 22 ATYPICAL LYMPH # Normal [facility] Comment on above: Performed By: #### C BCMAN ####[facility] [address] [place], [place] [address]Dr. Bella Jerome ATYPICAL LYMPH % Normal [facility] Comment on above: Performed By: #### C BCMAN ####[facility] [address] [address]Dr. Bella Jerome BAND # 0.2 103/ul Normal 0.0-0.3 [facility] Comment on above: Performed By: #### C BCMAN ####[facility] [address] [place], [place] [address]Dr. Bella Jerome BAND % 1 % Normal 0-5 [facility] Comment on above: Performed By: #### C BCMAN ####[facility] [address] [address]Dr. Bella Jerome BASOM # 0.00 103/ul Normal 0.00-0.10 [facility] Comment on above: Performed By: #### C BCMAN ####[facility] [address] [address]Dr. Bella Jerome BASOM % 0.0 % Critically low 0.2-2.0 [facility] Comment on above: Performed By: #### C BCMAN ####[facility] [address] [id number]. Bella Jerome BLAST # Normal [facility] Comment on above: Performed By: #### C BCMAN ####[facility] [address] [id number]. Bella Jerome BLAST % Normal [facility] Comment on above: Performed By: #### C BCRELL ####[facility] [address] [id number]. Bella Jerome CORRECTED WBC Normal 4.0-11.0 [facility] Comment on above: Performed By: #### C BCRELL ####[facility] [address] [address]Dr. Bella Jerome EOS # 0.00 103/ul Normal 0.00-0.70 [facility] Comment on above: Performed By: #### C BCRELL ####[facility] [address] [address]Dr. Bella Jerome EOS% 0.0 % Critically low 0.9-7.0 [facility] Comment on above: Performed By: #### C BCRELL ####[facility] [address] [place], [place] [address]Dr. Bella Jerome HCT 30.5 % Critically low 36.0-48.0 [facility] Comment on above: Performed By: #### C BCRELL ####[facility] [address] [place], [place] [address]Dr. Bella Jerome HGB 10.5 g/dl Critically low 12.0-16.0 [facility] Comment on above: Performed By: #### C BCRELL ####[facility] [address] [place], [place] [address]Dr. Bella Jerome LYMPHM # 2.78 103/ul Normal 1.20-3.80 [facility] Comment on above: Performed By: #### C BCRELL ####[facility] [address] [place], [place] [address]Dr. Bella Jerome LYMPHM% 13.0 % Critically low 20.5-60.0 [facility] Comment on above: Performed By: #### C PEDRO ####[facility] [address] [id number]. Bella Jerome MCH 32.8 pg Normal 26.7-34.0 [facility] Comment on above: Performed By: #### C PEDRO ####[facility] [address] [place], [place] [address]Ht. Bella Jerome MCHC 34.4 g/dl Normal 29.9-35.2 [facility] Comment on above: Performed By: #### C PEDRO ####[facility] [address] [id number]. Bella Jerome MCV 95.3 fL Normal 81.0-99.0 [facility] Comment on above: Performed By: #### Jennifer VASQUEZ ####[facility] [address] [id number]. Bella Jerome METAMYELOCYTE # Normal [facility] Comment on above: Performed By: #### Jennifer VASQUEZ ####[facility] [address] [id number]. Bella Jerome METAMYELOCYTE % Normal [facility] Comment on above: Performed By: #### Jennifer VASQUEZ ####[facility] [address] [id number]. Bella Jerome MONOM# 2.35 103/ul Critically high 0.30-0.80 [facility] Comment on above: Performed By: #### Jennifer VASQUEZ ####[facility] [address] [address]Dr. Bella Jerome MONOM% 11.0 % Normal 1.7-12.0 [facility] Comment on above: Performed By: #### Jennifer VASQUEZ ####[facility] [address] [address]Dr. Bella Jerome MPV 11.1 fL Normal 9.5-13.5 [facility] Comment on above: Performed By: #### Jennifer VASQUEZ ####[facility] [address] [id number]. Bella Jerome MYELOCYTE # Normal [facility] Comment on above: Performed By: #### C PEDRO ####[facility] [address] [place], [place] [address]Ly. Bella Jerome MYELOCYTE % Normal [facility] Comment on above: Performed By: #### C PEDRO ####[facility] [address] [place], [place] [address]Zb. Bella Jerome NRBC Normal [facility] Comment on above: Performed By: #### C PEDRO ####[facility] [address] [id number]. Bella Jerome PLT 227 103/ul Normal 150-450 [facility] Comment on above: Performed By: #### C PEDRO ####[facility] [address] [id number]. Bella Jerome RBC 3.20 106/ul Critically low 4.20-5.[address] [facility] Comment on above: Performed By: #### C PEDRO ####[facility] [address] [address]Dr. Bella Jerome RDW 12.8 % Normal 11.0-15.0 [facility] Comment on above: Performed By: #### C PEDRO ####[facility] [address] [address]Dr. Bella Jerome SEG # 16.05 103/ul Critically high 1.40-6.50 [facility] Comment on above: Performed By: #### C PEDRO ####[facility] [address] [address]Dr. Bella Jerome SEG % 75.0 % Normal 43.0-75.0 [facility] Comment on above: Performed By: #### C PEDRO ####[facility] [address] [address]Dr. Bella Jerome WBC 21.4 103/ul Critically high 4.0-11.0 [facility] Comment on above: Performed By: #### C PEDRO ####[facility] [address] [address]Dr. Bella Jerome CBC AUTO DIFFon 09-05-2022 BASO # 0.0 103/ul Normal 0.0-0.1 [facility] Comment on above: Performed By: #### C BC #### [facility] [address] [address] [address] Bella Jerome Basophils/100 WBC (Bld) 0.2 % Normal 0.2-2.0 [facility] Comment on above: Performed By: #### C BC #### [facility] [address] [address] [address] Bella Jerome EO # 0.1 103/ul Normal 0.0-0.7 [facility] Comment on above: Performed By: #### C BC #### [facility] [address] [address] [address] Bella Jerome Eosinophils/100 WBC (Bld) 0.6 % Critically low 0.9-7.0 [facility] Comment on above: Performed By: #### C BC #### [facility] [address] [address] [address] Bella Jerome Erythrocyte distribution width (RBC) [Ratio] 12.6 % Normal 11.0-15.0 [facility] Comment on above: Performed By: #### C BC #### [facility] [address] [address] [address] Bella Jerome Hematocrit (Bld) [Volume fraction] 32.5 % Critically low 36.0-48.0 [facility] Comment on above: Performed By: #### C BC #### [facility] [address] [address] [address] Bella Jerome Hemoglobin (Bld) [Mass/Vol] 11.1 g/dL Critically low 12.0-16.0 [facility] Comment on above: Performed By: #### C BC #### [facility] [address] [address] [address] Bella Jerome IG # 0.14 10e3/ul Critically high 0.00-0.03 [facility] Comment on above: Performed By: #### C BC #### [facility] [address] [place] [address] Dr. Bella Jerome IG % 1.1 % Critically high 0.0-0.5 [facility] Comment on above: Performed By: #### C BC #### [facility] [address] [place] [address] Dr. Bella Jerome LYMPH # 2.6 103/ul Normal 1.2-3.8 [facility] Comment on above: Performed By: #### C BC #### [facility] [address] [place] [address] Dr. Bella Jerome Lymphocytes/100 WBC (Bld) 20.2 % Critically low 20.5-60.0 [facility] Comment on above: Performed By: #### C BC #### [facility] [address] [place] [address] Dr. Bella Jerome MANUAL DIFF REQ NO Normal [facility] Comment on above: Performed By: #### C BC #### [facility] [address] [place] [address] Dr. Bella Jerome MCH (RBC) [Entitic mass] 32.2 pg Normal 26.7-34.0 [facility] Comment on above: Performed By: #### C BC #### [facility] [address] [place] [address] Dr. Bella Jerome MCHC (RBC) [Mass/Vol] 34.2 g/dL Normal 29.9-35.2 [facility] Comment on above: Performed By: #### C BC #### [facility] [address] [place] [address] Dr. Bella Jerome MCV (RBC) [Entitic vol] 94.2 fL Normal 81.0-99.0 [facility] Comment on above: Performed By: #### C BC #### [facility] [address] [place] [address] Dr. Bella Jerome MONO # 0.9 103/ul Critically high 0.3-0.8 [facility] Comment on above: Performed By: #### C BC #### [facility] [address] [address] [address] Bella Jerome Monocytes/100 WBC (Bld) 7.1 % Normal 1.7-12.0 [facility] Comment on above: Performed By: #### C BC #### [facility] [address] [place] [address] Dr. Bella Jerome NEUT # 8.9 103/ul Critically high 1.4-6.5 [facility] Comment on above: Performed By: #### C BC #### [facility] [address] [place] [address] Dr. Bella Jerome Neutrophils/100 WBC (Bld) 70.8 % Normal 43.0-75.0 [facility] Comment on above: Performed By: #### C BC #### [facility] [address] [place] [address] Dr. Bella Jerome Platelet mean volume (Bld) [Entitic vol] 11.0 fL Normal 9.5-13.5 [facility] Comment on above: Performed By: #### C BC #### [facility] [address] [place] [address] Dr. Bella Jerome PLT 234 103/ul Normal 150-450 [facility] Comment on above: Performed By: #### C BC #### [facility] [address] [place] [address] Dr. Bella Jerome RBC 3.45 106/ul Critically low 4.20-5.40 [facility] Comment on above: Performed By: #### C BC #### [facility] [address] [place] [address] Dr. Bella Jerome WBC 12.6 103/ul Critically high 4.0-11.0 [facility] Comment on above: Performed By: #### C BC #### [facility] [address] [place] [address] Dr. Bella Jerome Covid-19 PCR ([facility])on SARS-CoV-2 (COVID-19) RNA FAVIAN+probe Ql (Unsp spec) Not detected Normal NOT DETECTED [facility] Comment on above: Result Comment: When [...] for this test is supported by the Social Media Strategist of Health and Human Service's declaration that [...] be used). Performed By: #### C VDTBH ####[facility] [address] [place], [place] [address]Dr. Bella Jerome DRUG SCREEN RAPID (URINE)on 09-05-2022 AMP Negative Normal NEGATIVE [facility] Comment on above: Performed By: #### D RUGRPD ####[facility] [address] [place], [place] [address]Dr. Bella Jerome BAR Negative Normal NEGATIVE [facility] Comment on above: Performed By: #### D RUGRPD ####[facility] [address] [place], [place] [address]Dr. Bella Jerome BUP Negative Normal NEGATIVE [facility] Comment on above: Performed By: #### D RUGRPD ####[facility] [address] [place], [place] [address]Dr. Bella Jerome BZO Negative Normal NEGATIVE [facility] Comment on above: Performed By: #### D RUGRPD ####[facility] [address] [place], [place] [address]Dr. Bella Jerome NGA Negative Normal NEGATIVE [facility] Comment on above: Performed By: #### D RUGRPD ####[facility] [address]rx[address] [place], [place] [address]Dr. Bella Jerome CUT-OFFS SEE BELOW Normal [facility] Comment on above: Result Comment: AMP (Amphetamine): 500ng/mL, BAR (Barbituates): 200 ng/mL, BZO (Benzodiazepines): 150 ng/mL, BUP (Buprenorphine): 10 ng/mL, NGA (Cocaine): 150 ng/mL, mAMP (Methamphetamine): 500 ng/mL, MTD (Methadone): 200 ng/mL, OPI (Opiates): 100 ng/mL, OXY (Oxycodone): 100 ng/mL, PCP (Phencyclidine): 25 ng/mL, PPX (Propoxyphene): 300 ng/mL, THC (Cannabinoids): 50 ng/mL, TCA (Trycyclic Antidepressants): 300 ng/mL Performed By: #### D RUGRPD ####[facility] [address] [place], [place] [address]Dr. [facility] DRUG CUT HEADER DRUG CLASS TEST SYSTEM CUT-OFF CONCENTRATIONS ARE FOLLOWS: Normal [facility] Comment on above: Performed By: #### D RUGRPD ####[facility] [address] [place], [place] [address]Dr. Bella Jerome mAMP Negative Normal NEGATIVE [facility] Comment on above: Performed By: #### D RUGRPD ####[facility] [address] [place], [place] [address]Dr. Bella Jerome MTD Negative Normal NEGATIVE [facility] Comment on above: Performed By: #### D RUGRPD ####[facility] [address] [place], [place] [address]Dr. Bella Jerome OPI Negative Normal NEGATIVE [facility] Comment on above: Performed By: #### D RUGRPD ####[facility] [address] [place], [place] [address]Dr. Bella Jerome OXY Negative Normal NEGATIVE [facility] Comment on above: Performed By: #### D RUGRPD ####[facility] [address] [place], [place] [address]Dr. Bella [facility] PCP Negative Normal NEGATIVE [facility] Comment on above: Performed By: #### D RUGRPD ####[facility] [address] [place], [place] [address]Dr. Bella Jerome PPX Negative Normal NEGATIVE [facility] Comment on above: Performed By: #### D RUGRPD ####[facility] [address] [id number]. Bella Jerome TCA Negative Normal NEGATIVE [facility] Comment on above: Performed By: #### D RUGRPD ####[facility] [address] [place], [place] [address]Sy. Bella Jerome THC Negative Normal NEGATIVE [facility] Comment on above: Performed By: #### D RUGRPD ####[facility] [address] [id number]. Bella Jerome TYPE AND SCREENon 09-05-2022 TYPE AND SCREEN Negative Normal [facility] Comment on above: Performed By: #### T NS ####[facility] [address] [address]Dr. Bella Jerome US PREG BIOPHY W NON [...] MANUELITO GREGG Date: 2022-08-31 17:06 Normal [facility] US PREG GROWTHon 08-30-2022 US PREG [...] by: MANUELITO GREGG Date: 2022-08-30 17:59 Normal [facility] US PREG BIOPHY W NON STRESSo [...] by: MANUELITO GREGG Date: 2022-08-24 17:10 Normal [facility] FREE T4on 08-21-2022 Free T4 [Mass/Vol] 0.90 ng/dL Normal 0.76-1.46 [facility] Comment on above: Performed By: #### C BC #### [facility] [address] [place] [address] Dr. Bella Jerome TSHon 08-21-2022 TSH 1.033 uIU/mL Normal 0.358-3.740 [facility] Comment on above: Performed By: #### H H #### [facility] [address] [place] [address] Dr. Bella Jerome US PREG BIOPHY W [...] by: MANUELITO GREGG Date: 2022-08-17 18:33 Normal [facility] GROUP B STREP CULTUREon 07-28 S. agalactiae Ag Ql (Unsp spec) Culture Observations: NEGATIVE FOR GROUP B STREPTOCOCCUS. Normal [facility] Comment on above: Performed By: #### G BSCX ####[facility] [address] [place], [place] [address]YbWill Bella Jerome US PREG BIOPHY W NON [...] MANUELITO GREGG Date: 2022-08-10 16:36 Normal [facility] US PREG GROWTHon 08-10-2022 US PREG [...] MANUELITO GREGG Date: 2022-08-10 16:37 Normal [facility] US PREG GROWTHon 07-25-2022 US PREG [...] MANUELITO GREGG Date: 2022-07-25 18:18 Normal [facility] FREE T4on 07-24-2022 Free T4 [Mass/Vol] 0.98 ng/dL Normal 0.76-1.46 [facility] Comment on above: Performed By: #### F T4 #### [facility] [address] [place], [place] [address] Dr. Bella Jerome TSHon 07-24-2022 TSH 1.196 uIU/mL Normal 0.358-3.740 [facility] Comment on above: Performed By: #### T SH ####[facility] [address] [address]Dr. Bella Jerome UA (CLEAN/CATCH) CAUSTIC LOADER/MICRO I F IND.on 07-20-2022 Bilirubin Ql (U) Negative Normal NEGATIVE [facility] Comment on above: Performed By: #### H H #### [facility] [address] [place] [address] Dr. Bella Jerome Clarity (U) CLEAR Normal CLEAR [facility] Comment on above: Performed By: #### H H #### [facility] [address] [place] [address] Dr. Bella Jerome Color (U) LT. YELLOW Normal YELLOW [facility] Comment on above: Performed By: #### H H #### [facility] [address] [place] [address] Dr. Bella Jerome Glucose Ql (U) Negative Normal NEGATIVE [facility] Comment on above: Performed By: #### H H #### [facility] [address] [place] [address] Dr. Bella Jerome Hemoglobin Ql (U) Negative Normal NEGATIVE [facility] Comment on above: Performed By: #### H H #### [facility] [address] [place] [address] Dr. Bella Jerome Ketones Ql (U) Negative Normal NEGATIVE [facility] Comment on above: Performed By: #### H H #### [facility] [address] [place] [address] Dr. Bella Jerome LEUKOCYTES Negative Normal NEGATIVE [facility] Comment on above: Performed By: #### H H #### [facility] [address] [place] [address] Dr. Bella Jerome Nitrite Ql (U) Negative Normal NEGATIVE [facility] Comment on above: Performed By: #### H H #### [facility] [address] [place] [address] Dr. Bella Jerome pH (U) 7.0 [pH] Normal 5-9 [facility] Comment on above: Performed By: #### H H #### [facility] [address] [place] [address] Dr. Bella Jermoe SPEC GRAVITY <=1.005 Abnormal 1.005-<=1.025 [facility] Comment on above: Performed By: #### H H #### [facility] [address] [place] [address] Dr. Bella Jerome UA PROTEIN Negative Normal NEGATIVE/ TRACE [facility] Comment on above: Performed By: #### H H #### [facility] [address] [place] [address] Dr. Bella Jerome UR MICRO IND NOT INDICATED Normal [facility] Comment on above: Performed By: #### H H #### [facility] [address] [place] [address] Dr. Bella Jerome Urobilinogen Qn (U) 0.2 {Kimberlee'U}/dL Normal 0.2 - 1. 0 [facility] Comment on above: Performed By: #### H H #### [facility] [address] [place] [address] Dr. Bella Jerome US PREG GROWTHon 06-27-2022 [...] RAGINI SANTOS Date: 2022-06-27 16:23 Normal [facility] FREE T4on 06-20-2022 Free T4 [Mass/Vol] 0.82 ng/dL Normal 0.76-1.46 [facility] Comment on above: Performed By: #### H H #### [facility] [address] [place] [address] Dr. Bella Jerome GLUCOSE - 1HRon 06-20-2022 Glucose [Mass/Vol] 127 mg/dL Critically high 74-106 T [facility] Comment on above: Performed By: #### H H #### [facility] [address] [place] [address] Dr. Bella Jerome HEMOGRAM AND PLATELon 2021 Hematocrit (Bld) [Volume fraction] 32.4 % Critically low 36.0-48.0 [facility] Comment on above: Performed By: #### H H #### [facility] [address] [place] [address] Dr. Bella Jerome Hemoglobin (Bld) [Mass/Vol] 10.9 g/dL Critically low 12.0-16.0 [facility] Comment on above: Performed By: #### H H #### [facility] [address] [place] [address] Dr. Bella Jerome MCH (RBC) [Entitic mass] 32.9 pg Normal 26.7-34.0 [facility] Comment on above: Performed By: #### H H #### [facility] [address] [place] [address] Dr. Bella Jerome MCHC (RBC) [Mass/Vol] 33.6 g/dL Normal 29.9-35.2 [facility] Comment on above: Performed By: #### H H #### [facility] [address] [place] [address] Dr. Bella Jerome MCV (RBC) [Entitic vol] 97.9 fL Normal 81.0-99.0 [facility] Comment on above: Performed By: #### H H #### [facility] [address] [place] [address] Dr. Bella Jerome PLT 241 103/ul Normal 150-450 [facility] Comment on above: Performed By: #### H H #### [facility] [address] [place] [address] Dr. Bella Jerome RBC 3.31 106/ul Critically low 4.20-5.40 [facility] Comment on above: Performed By: #### H H #### [facility] [address] [address] [address] Bella Jerome WBC 11.3 103/ul Critically high 4.0-11.0 [facility] Comment on above: Performed By: #### H H #### [facility] [id number] Bella Jerome TSHon 06-20-2022 TSH 3.044 uIU/mL Normal 0.358-3.740 [facility] Comment on above: Performed By: #### C BC #### [facility] [id number] Bella Jerome US PREG INCOMPLETE ANATOMYon 05-24-2022 US PREG INCOMPLETE ANATOMY EXAMINATION: US PREG INCOMPLETE ANATOMY HISTORY: screening COMPARISON: Ultrasound anatomy 04/26/2022 FINDINGS: Presentation: Cephalic Heart rate: 154 bpm Anatomy: Cervical, thoracic, and lumbar spine HERNANDO: 09/13/2022 IMPRESSION: 1. Adequate visualization of the cervical, thoracic, and lumbar spine; no appreciable abnormality. Electronically authenticated by: RAGINI SANTOS Date: 2022-05-24 17:33 Normal [facility] US PREG ANATOMY SINGLEon US PREG [...] MANUELITO GREGG Date: 2022-04-26 16:54 Normal [facility] CHLAMYDIA/GONOCOCCUS FAVIAN (SW AB/URINE/PAPon 04-19-2022 Chlamydia trachomatis, FAVIAN Negative Normal Negative [facility] Comment on above: Performed By: #### C T/NGNA ####[facility] [id number] [address]Dr. Bella Jerome Neisseria gonorrhoeae, FAVIAN Negative Normal Negative [facility] Comment on above: Performed By: #### C T/NGNA ####[facility] [id number] [address]Dr. Bella Jerome VAGINITIS/VAGINOSIS DNA PROB Leonid 04-18-2022 Jessica species Negative Normal Negative [facility] Comment on above: Performed By: #### H H #### [facility] [address] [address] [address] Bella Jerome Gardnerella vaginalis Negative Normal Negative [facility] Comment on above: Performed By: #### H H #### [facility] [address] [address] [address] Bella Jerome Trichomonas vaginalis Negative Normal Negative [facility] Comment on above: Performed By: #### H H #### [facility] [address] [address] [address] Bella Jerome FREE T4on 04-05-2022 Free T4 [Mass/Vol] 0.88 ng/dL Normal 0.76-1.46 [facility] Comment on above: Performed By: #### F T4 #### [facility] [address] [place] [address] Dr. Bella Jerome TSHon 04-05-2022 TSH 1.786 uIU/mL Normal 0.358-3.740 [facility] Comment on above: Performed By: #### T SH ####[facility] [id number] [address]Dr. Bella Jerome TSH RANGE SEE BELOW Normal [facility] Comment on above: Result Comment: <0.3 4 UIU/ml HYPERTHYROID 0.34-5.60 UIU/ml EUTHYROID >5.60 UIU/ml HYPOTHYROID Performed By: #### T SH ####[facility] [address] [place], [place] [address]Dr. Bella Jerome FREE T4on 02-26-2022 Free T4 [Mass/Vol] 1.06 ng/dL Normal 0.76-1.46 [facility] Comment on above: Performed By: #### C BC #### [facility] [address] [place] [address] Dr. Bella Jerome TSHon 02-26-2022 TSH 2.024 uIU/mL Normal 0.470-4.680 [facility] Comment on above: Performed By: #### C BC #### [facility] [address] [place] [address] Dr. Bella Jerome TSH RANGE SEE BELOW Normal [facility] Comment on above: Result Comment: <0.3 4 UIU/ml HYPERTHYROID 0.34-5.60 UIU/ml EUTHYROID >5.60 UIU/ml HYPOTHYROID Performed By: #### C BC #### [facility] [address] [place] [address] Dr. Bella Jerome Vital Signs Date Time Vital Sign Value Performing Clinician Facility 02-13-2024 11:24-0400 Body height 160.02 cm [facility] 02-13-2024 11:24-0400 Body mass index (BMI) [Ratio] 42.3 kg/m2 [facility] 02-13-2024 11:24-0400 Body weight 108.49 kg [facility] 02-13-2024 11:24-0400 Diastolic blood pressure 70 mm[Hg] [facility] 02-13-2024 11:24-0400 Heart rate 69 /min [facility] 02-13-2024 11:24-0400 Respiratory rate 18 /min [facility] 02-13-2024 11:24-0400 SaO2% (BldA) [Mass fraction] 98 % [facility] 02-13-2024 11:24-0400 Systolic blood pressure 118 mm[Hg] [facility] 10-31-2023 15:00-0500 Body height 160.02 cm Sandra Austin Other [facility] [employer] Other 10-31-2023 15:00-0500 Body mass index (BMI) [Ratio] 45.41 kg/m2 Sandra Austin Other [facility] [employer] Other 10-31-2023 15:00-0500 Body temperature 98.5 [degF] Sandra Austin Other [employer] [facility] [employer] Other 10-31-2023 15:00-0500 Body weight 116.3 kg Sandra Austin Other [employer] [facility] [employer] Other 10-31-2023 15:00-0500 Diastolic blood pressure 80 mm[Hg] Sandra Austin Other [employer] [facility] [employer] Other 10-31-2023 15:00-0500 Respiratory rate 18 /min Sandra Austin Other [facility] Other 10-31-2023 15:00-0500 SaO2% (BldA) [Mass fraction] 98 % Sandra Austin Other [facility] Other 10-31-2023 15:00-0500 Systolic blood pressure 128 mm[Hg] Sandra Austin Other [facility] Other 06-24-2023 14:30-0400 Body height 160.02 cm Sandra Austin Other [facility] Other 06-24-2023 14:30-0400 Body mass index (BMI) [Ratio] 44.87 kg/m2 Sandra Austin Other [facility] Other 06-24-2023 14:30-0400 Body weight 114.9 kg Sandra Austin Other [facility] Other 06-24-2023 14:30-0400 Diastolic blood pressure 60 mm[Hg] Sandra Austin Other [facility] Other 06-24-2023 14:30-0400 Respiratory rate 18 /min Sandra Ausitn Other [facility] Other 06-24-2023 14:30-0400 SaO2% (BldA) [Mass fraction] 99 % Sandra Austin Other [facility] Other 06-24-2023 14:30-0400 Systolic blood pressure 110 mm[Hg] Sandra Austin Other [facility] Other 04-15-2023 09:25-0400 Body height 160.02 cm Ramonita Greenberg Other [facility] Other 04-15-2023 09:25-0400 Body mass index (BMI) [Ratio] 41.8 kg/m2 Ramonita Greenberg Other [facility] Other 04-15-2023 09:25-0400 Body temperature 98.5 [degF] Ramonita Greenberg Other [facility] Other 04-15-2023 09:25-0400 Body weight 107.05 kg Ramonita Greenberg Other [facility] Other 04-15-2023 09:25-0400 Respiratory rate 18 /min Ramonita Greenberg Other [facility] Other 04-15-2023 09:25-0400 SaO2% (BldA) [Mass fraction] 97 % Ramonita Greenberg Other [facility] Other 02-21-2023 14:45-0400 Body height 160.02 cm Sandra Austin Other [facility] Other 02-21-2023 14:45-0400 Body mass index (BMI) [Ratio] 41.39 kg/m2 Sandra Austin Other [facility] Other 02-21-2023 14:45-0400 Body weight 106.01 kg Sandra Austin Other [facility] Other 02-21-2023 14:45-0400 Diastolic blood pressure 60 mm[Hg] Sandra Austin Other [facility] Other 02-21-2023 14:45-0400 Respiratory rate 18 /min Sandra Austin Other [facility] Other 02-21-2023 14:45-0400 SaO2% (BldA) [Mass fraction] 98 % Sandra Austin Other [facility] Other 02-21-2023 14:45-0400 Systolic blood pressure 110 mm[Hg] Sandra Austin Other [facility] Other 12-24-2022 14:30-0500 Body height 160.02 cm Sanrda Austin Other [facility] Other 12-24-2022 14:30-0500 Body mass index (BMI) [Ratio] 40.83 kg/m2 Sandra Austin Other [facility] Other 12-24-2022 14:30-0500 Body weight 104.55 kg Sandra Austin Other [facility] Other 12-24-2022 14:30-0500 Diastolic blood pressure 70 mm[Hg] Sandra Austin Other [facility] Other 12-24-2022 14:30-0500 Respiratory rate 18 /min Sandra Austin Other [facility] Other 12-24-2022 14:30-0500 SaO2% (BldA) [Mass fraction] 99 % Sandra Austin Other [facility] Other 12-24-2022 14:30-0500 Systolic blood pressure 118 mm[Hg] Sandra Austin Other [facility] Other 12-21-2021 16:30-0500 Body height 160.02 cm Sandra Austin Other [facility] Other 12-21-2021 16:30-0500 Body mass index (BMI) [Ratio] 38.58 kg/m2 Sandra Austin Other [facility] Other 12-21-2021 16:30-0500 Body temperature 97.3 [degF] Sandra Austin Other [facility] Other 12-21-2021 16:30-0500 Body weight 98.79 kg Sandra Austin Other [facility] Other 12-21-2021 16:30-0500 Diastolic blood pressure 60 mm[Hg] Sandra Austin Other [facility] Other 12-21-2021 16:30-0500 Respiratory rate 18 /min Sandra Austin Other [facility] Other 12-21-2021 16:30-0500 SaO2% (BldA) [Mass fraction] 99 % Sandra Austin Other [facility] Other 12-21-2021 16:30-0500 Systolic blood pressure 118 mm[Hg] Sandra Austin Other [facility] Other Encounters Encounter Date Encounter Type Care Provider Facility Start: 08-04-2024 End: 08-04-2024 ambulatory ENDY PRIEST Not Available Start: 07-21-2024 End: 07-21-2024 ambulatory AGUS HANSA Not Available Start: 07-07-2024 End: 07-07-2024 ambulatory AGUS HANSA Not Available Start: 2024 End: 2024 ambulatory AGUS HANSA Not Available Start: 05-12-2024 End: 05-12-2024 ambulatory ENDY CEM Not Available Start: 04-16-2024 End: 04-16-2024 ambulatory AGUS HANSA Not Available Start: 03-17-2024 End: 03-17-2024 ambulatory AGUS HANSA Not Available Start: 02-14-2024 End: 02-14-2024 ambulatory ENDY PRIEST Not Available Start: 02-13-2024 End: 02-13-2024 ambulatory [facility] Work Phone: Start: 02-13-2024 End: 02-13-2024 Patient encounter procedure [facility] Work Phone: Start: 12-16-2023 Non-patient / Non-visit [facility] Work Phone: Start: 12-16-2023 End: 12-16-2023 ambulatory AGUS HANSA Not Available Start: 10-31-2023 End: 10-31-2023 ambulatory Sandra Austin Other [facility] Other Start: 10-31-2023 Office outpatient vi sit 25 minutes Sandra Austin [facility] Start: 07-19-2023 End: 07-19-2023 ambulatory Sandra Austin Other [facility] Other Start: 07-19-2023 Telephone encounter Sandra Guevara [facility] Start: 06-24-2023 End: 06-24-2023 ambulatory Sandra Austin Other [facility] Other Start: 06-24-2023 Office outpatient vi sit 25 minutes Sandra Austin [facility] Start: 06-04-2023 End: 06-04-2023 ambulatory Sandra Austin Other [facility] Other Start: 06-04-2023 Telephone encounter Sandra Guevara [facility] Start: 04-15-2023 End: 04-15-2023 ambulatory Ramonita Yari Other [facility] Other Start: 04-15-2023 Office outpatient vi sit 15 minutes Ramonita Greenberg [facility] Start: 04-11-2023 End: 04-11-2023 ambulatory Sandra Austin Other [facility] Other Start: 04-11-2023 Telephone encounter Sandra Guevara [facility] Start: 02-21-2023 Office outpatient vi sit 25 minutes Sandra Austin [facility] Start: 02-21-2023 End: 02-22-2023 ambulatory SANDRA AUSTIN [facility] [employer] Other Start: 01-04-2023 End: 01-04-2023 ambulatory Sandra Austin Other [facility] Other Start: 01-04-2023 Telephone encounter Sandra Guevar[facility] Start: 12-30-2022 Encounter for genera l adult medical examination without abnormal findings SANDRA AUSTIN [facility] Start: 12-27-2022 End: 12-27-2022 ambulatory Sandra Austin Other [facility] Other Start: 12-27-2022 Telephone encounter Sandra Guevara [facility] Start: 12-26-2022 End: 12-27-2022 ambulatory SANDRA AUSTIN Facility:[facility] Start: 12-26-2022 End: 12-27-2022 Encounter for general adult medical examination without abnormal findings SANDRA AUSTIN Facility:[facility] Start: 12-24-2022 End: 12-24-2022 ambulatory Sandra Austin Other [facility] Other Start: 12-24-2022 Encounter for genera l adult medical examination without abnormal findings Sandra Austin [facility] Start: 12-24-2022 Periodic preventive med est patient 18-39 yrs Sandra Austin [facility] Start: 12-10-2022 End: 12-10-[address] AGUS [...] Facility:[facility] Start: 06-27-2022 End: 06-28-2022 ambulatory SANDRA AUSTIN Facility:[facility] Start: 06-20-2022 End: 06-21-2022 ambulatory SANDRA AUSTIN Facility:[facility] Start: 05-24-2022 End: 05-25-2022 ambulatory SANDRA AUSTIN Facility:[facility] Start: 04-26-2022 End: 04-27-2022 ambulatory SANDRAVALERY AUSTIN Facility:[facility] Start: 04-17-2022 End: 04-17-2022 ambulatory SANDRA GEOVANNA Facility:[facility] Start: 04-05-2022 End: 04-06-2022 ambulatory SANDRA GEOVANNA Facility:[facility] Start: 02-26-2022 End: 02-27-2022 ambulatory SANDRA GEOVANNA Facility:[facility] Start: 12-21-2021 End: 12-21-2021 ambulatory Sandra Austin Other [employer] Other Start: 12-21-2021 Office outpatient ne w 45 minutes Sandra Austin [facility] Procedures Date Procedure Procedure Detail Performing Clinician [...] Patient Education Low back pain in adults [facility] Work Phone: Payers Date Payer Category Payer Unknown [id number]. [id number] 1997 Unknown [id number] 2.16.84 0.1.555760.3.579.2.593 1997 Unknown [id number] 2.16.84 0.1.446904.3.579.2.593 1997 Unknown [id number] 2.16.84 0.1.735873.3.579.2.593 1997 Unknown [id number] 2.16.84 0.1.707910.3.579.2.593 1997 Unknown [id number] 2.16.84 0.1.183993.3.579.2.593 1997 Unknown [id number] 2.16.84 0.1.701790.3.579.2.593 1997 Unknown [id number] 2.16.84 0.1.956737.3.579.2.593 1997 Unknown [id number] 2.16.84 0.1.961702.3.579.2.593 1997 Unknown [id number] 2.16.84 0.1.087471.3.579.2.593 1997 Unknown [id number] 2.16.84 0.1.411488.3.579.2.593 1997 Unknown [id number] 2.16.84 0.1.527189.3.579.2.593 1997 Unknown [id number] 2.16.84 0.1.703550.3.579.2.593 1997 Unknown [id number] 2.16.84 0.1.695132.3.579.2.593 1997 Unknown [id number] 2.16.84 0.1.668937.3.579.2.593 1997 Unknown [id number] 2.16.84 0.1.009932.3.579.2.593 1997 Unknown [id number] 2.16.84 0.1.836900.3.579.2.593 1997 Unknown [id number] 2.16.84 0.1.006838.3.579.2.593 1997 Unknown [id number] 2.16.84 0.1.276827.3.579.2.593 1997 Unknown [id number] 2.16.84 0.1.042259.3.579.2.593 1997 Unknown [id number] 2.16.84 0.1.231684.3.579.2.593 1997 Unknown [id number] 2.16.84 0.1.039365.3.579.2.593 1997 Unknown [id number] 2.16.84 0.1.641148.3.579.2.593 1997 Unknown [id number] 2.16.84 0.1.827354.3.579.2.593 1997 Unknown [id number] 2.16.84 0.1.844758.3.579.2.1259 1997 Unknown [id number] 2.16.84 0.1.852833.3.579.2.1259 1997 Unknown [id number] 2.16.84 0.1.550177.3.579.2.1259 1997 Unknown [id number] 2.16.84 0.1.933668.3.579.2.1259 1997 Unknown [id number] 2.16.84 0.1.815151.3.579.2.1259 1997 Unknown [id number] 2.16.84 0.1.125450.3.579.2.9 1997 Unknown [id number] 2.16.84 0.1.233026.3.579.2.9 1997 Unknown [id number] 2.16.84 0.1.366117.3.579.2.9 1997 Unknown [id number] 2.16.84 0.1.156079.3.579.2.1259 1957 Medicaid [id number] . .[id number] 1959 Private Health Insurance [id number] Self-pay Self Pay [id number] Unknown [place] [id number] Social History Date Type Detail Facility Sex Assigned At [facility] Other Start: 1995 Sex Assigned At Female F [facility] Clinical Notes 12-21-2021 to 10-31-2023 Note [...] E28.2) She will continue to follow with [facility] and continue healthy lifestyle changes that she [...] course of antibiotic. Increase fluids and rest. [id number] antipyretics as needed. Warning signs and symptoms reviewed with patient today. Patient to go immediately to the ER should she experience any of these. Patient to notify office should her symptoms persist and not improve. Patient verbalizes understanding and agrees to treatment plan. [facility] Other 09-22-2023 Evaluation note* Encounter Date Diagnosis Assessment Notes Treatment Notes Treatment Clinical Notes Jun, Vitamin D insufficiency (ICD-10 - E55.9) [facility] Other 08-28-2023 Evaluation note* Encounter Date Diagnosis [...] E28.2) She will continue to follow with [facility] and continue healthy lifestyle changes that she [...] ENT today. Specialty notes reviewed as received. [facility] Other 08-08-2023 Evaluation note* Encounter Date Diagnosis Assessment Notes Treatment Notes Treatment Clinical Notes May, Other atopic dermatitis (ICD-10 - L20.89) May, Acute otitis externa of both ears, unspecified type (ICD-10 - H60.503) [facility] Other 06-19-2023 Evaluation note* Encounter Date Diagnosis [...] no improvement in 2 to 3 days [facility] Other 06-15-2023 Evaluation note* Encounter Date Diagnosis Assessment Notes Treatment Notes Treatment Clinical Notes Mar, Anxiety (ICD-10 - F41.9) [facility] Other 04-27-2023 Evaluation note* Encounter Date Diagnosis [...] plan on rechecking this at May appointment. [facility] Other 03-10-2023 Evaluation note* Encounter Date Diagnosis Assessment Notes Treatment Notes Treatment Clinical Notes Dec, Bacterial conjunctivitis (ICD-10 - H10.9) [facility] Other 03-02-2023 Evaluation note* Encounter Date Diagnosis Assessment Notes Treatment Notes Treatment Clinical Notes Dec, Vitamin D insufficiency (ICD-10 - E55.9) Dec, Elevated alkaline phosphatase level (ICD-10 - R74.8) Dec, Other specified hypothyroidism (ICD-10 - E03.8) [facility] Other 02-27-2023 Evaluation note* Encounter Date Diagnosis [...] ordered. Follow routinely with eye doctor, dentist, [facility]. Patient is advised to work on healthy diet choices and appropriate servings, weight control, regular exercise as directed, reduced fat intake, and salt avoidance. Patient voiced understanding of this and agrees to this plan. Nov, PCOS (polycystic ovarian syndrome) (ICD-10 - E28.2) Routine lab work ordered. She will continue to follow with [facility] and continue healthy lifestyle changes that she [...] homicidal ideations. Started on Celexa by her [facility]. Very stable on Celexa 20 mg daily. [...] her ears still persist after starting this. [facility] Other 02-24-2022 Evaluation note* Encounter Date Diagnosis Assessment Notes Treatment Notes Treatment Clinical Notes Nov, Prediabetes (ICD-10 - R73.03) She was recently dx with prediabetes and was started on Metformin 500 mg BID 2 weeks ago by her [facility]. She would like to follow with our [...] - E28.2) She is following with her OB[facility] for her PCOS and is currently on Metformin 500 mg BID and is taking medication to help her get . She will continue to follow with [facility] and continue healthy lifestyle changes that she [...] of fatigue, difficulty losing weight by her [facility]. She would like to start following with [...] of this and agrees to this plan. [facility] Other Evaluation note* Diagnosis Onset Date Resolution Status 8 weeks gestation of acute Low back pain [facility] Work Phone: History general Narrative - Reported* Type Description Date Medical History PCOS Medical History THYROID ISSUES Surgical History THIRD NIPPLE REMOVED Surgical History Colonoscopy-normal 2018 [facility] Other Summary Purpose Family History No Family [...] content) EST CARE1 year Follow up, hg tp8inpu resultspink eyepossible mastitisstrep throatanxietyear gtts6 month Follow uprefill4 month Follow up, hgba1c INFORMATION SOURCE (unrecogn ized section and content) DATE CREATED AUTHOR 02/25/2023 [facility] DATE CREATED AUTHOR AUTHOR'S ESMER FLORES 08/06/2024 [facility] EPIC Care Teams [...] BE BASED ON THE PRIMARY CLINICAL RECORDS. [employer] provides no warranty or guarantee of the accuracy or completeness of information in this document.
[2024-08-08 07:40] VITALS: BP 123/63; PULSE 83
== END 2024-08-08 08:10 | disposition home or self-care (01) ==
LOC: FBCO 06:28 → FBC 07:33
PROVIDERS: PCP Nurse Practitioner Family; Visit Provider Obstetrics & Gynecology
DX: O99.283 Endocrine, nutritional and metabolic diseases complicating pregnancy, third trimester (principal); Z3A.33 33 weeks gestation of pregnancy
CPT/HCPCS: 59025

== ENCOUNTER 2024-08-12 07:00 | Outpatient (OUT) | payer OTHER, SELFPAY ==
--- OUTSIDE RECORDS SUMMARY | 2024-08-12 07:02 | XMS_ITS | CCD ---
Author Organization [facility] CliniSyct Care Team Providers Care Assistant Professor Of Philosophy Name Role Phone [facility] Unavailable KAP, SANDRA Primary Care Unavailable HANSA ., DR GOLDSMITH Attending Unavailable WEST, DR MANUELITO Foley Consulting Unavailable HANSA ., DR GOLDSMITH Admitting Unavailable HANSA ., DR GOLDSMITH Consulting Unavailable BRIAN, VIRGINIA Admitting Unavailable VIRGINIA TORRES Attending Unavailable KAP, SANDRA Primary Care Unavailable [place], DR MANUELITO Foley Consulting Unavailable HANSA ., [...] Unavailable HANSA ., DR GOLDSMITH Attending Unavailable [place], DR MANUELITO Foley Consulting Unavailable HANSA ., DR GOLDSMITH Admitting Unavailable HANSA ., DR GOLDSMITH Consulting Unavailable HANSA ., DR GOLDSMITH Attending Unavailable HANSA ., DR GOLSDMITH Admitting Unavailable KAPLE, SANDRA Primary Care Unavailable HANSA ., DR GOLDSMITH Consulting Unavailable KAPLE, SANDRA Primary Care Unavailable HANSA ., DR GOLDSMITH Attending Unavailable HANSA ., DR GOLDSMITH Consulting Unavailable HANSA ., DR GOLDSMITH Admitting Unavailable KAPLE, SANDRA Primary Care Unavailable HANSA ., DR GOLDSMITH Attending Unavailable [place], DR MANUELITO Foley Consulting Unavailable HANSA ., [...] JODIE ., DR HU Attending Unavailabl e LYK ., DR HU Consulting Unavailabl e [place], DR MANUELITO Foley Consulting Unavailable HANSA ., DR GOLDSMITH Consulting Unavailable SANDRA AUSTIN Primary Care Unavailable HANSA ., DR GOLDSMITH Attending Unavailable [place], DR MANUELITO Foley Consulting Unavailable HANSA ., DR GOLDSMITH Admitting Unavailable HANSA ., DR GOLDSMITH Consulting Unavailable Yari Ramonita Unavailable MARYLOU PRIEST Attending Unavailable HANSA, AGUS Attending Unavailable HANSA, AGUS Attending Unavailable HANSA, AGUS Attending Unavailable MARYLOU PRIEST Attending Unavailable HANSA, AGUS Attending Unavailable HANSA, AGUS Attending Unavailable HANSA, AGUS Attending Unavailable Geovanna ACCOUNT ADMINISTRATOR, Sandra Hall Primary Care Provider Medications Current Medications Medication Drug Class(es) Dates Sig (Normalized) Sig (Original) amoxicillin 500 mg oral capsule (3 sources) Penicillin-class Antibacterial Start: 04-15-2023 take 1 capsule by mouth every eight hours Amoxicillin 500 MG 1 capsule Orally three times a day for 10 day(s) Mar, Active Ascorbic Acid (1 source) Vitamin C Vitamin C Active aspirin 81 mg delayed release oral tablet (3 sources) Platelet Aggregation Inhibitor, Nonsteroidal Anti-inflammatory Drug take 1 tablet by mouth once daily aspirin 81 MG EC tablet Take 81 mg by mouth Daily Active azithromycin 250 mg oral tablet (1 [...] Active cetirizine hydrochloride 10 mg oral tablet (12 sources) Histamine-1 Receptor Antagonist Start: 10-23-2019 take 30 mg by mouth once daily Cetirizine Active 30 MG PO Daily October 23, 2019 1:00am take 1 tablet by mouth once lolis y cetirizine (ZyrTEC) 10 MG tablet Take 10 mg by mouth Daily Active cholecalciferol 0.025 mg oral tablet (12 sources) Vitamin D Start: 02-13-2024 take 1 [...] Tablet; Provider: Geovanna Flores ( ) Start: 06-24-2023 take 1 tablet by tamica th in the morning Natural Vitamin D-3 125 MCG (5000 UT) tablet Take 5,000 Units by mouth in the morning. as directed. 06/24/2023 Active Start: 02-21-2023 take 1 tablet by tamica [...] day for 7 days May, Active citalopram 20 mg oral tablet (9 sources) Serotonin Reuptake Inhibitor Start: 08-04-2024 End: 08-04-2025 take 1 tablet by mouth once daily citalopram (CeleXA) 20 MG tablet Indications: Anxiety, generalized (CMS/HCC) Take 1 tablet (20 mg) by mouth Daily 30 tablet 11 08/04/2024 08/04/2025 Active take 1 tablet by tamica th every twenty-four hours CeleXA 40 MG 1 tablet Orally Once a day for 30 days Active take 1 tablet by tamica th every twenty-four hours CeleXA 20 MG 1 tablet Orally Once a day Active Cranberry preparation (1 source) Non-Standardized Food Allergenic Extract, Non-Standardized Plant Allergenic Extract Cranberry Active levothyroxine sodium 0.05 mg oral tablet (15 sources) l-Thyroxine Start: take 1 tablet by mouth once daily in the morning Levothyroxine Active 1 TAB PO Daily February 13, 2024 12:00am Free[employer]Si tablet in the morning on an empty stomach Orally Once a day; Note: Source Status: Taking; Refills: 4; Qty: 30 Tablet; Provider: Geovanna Hlal Start: 05-24-2023 take 1 tablet by tamica th before mealtime levothyroxine (Synthroid, Levoxyl) 25 MCG tablet Take 25 mcg by mouth in the morning. Take before meals. 05/24/2023 Active take 1 tablet by tamica th [...] morning Levothyroxine Sodium 25 MCG TAKE ONE TABLET BY MOUTH DAILY ON AN EMPTY STOMACH IN THE MORNING for 30 Active Loratadine (3 sources) Loratadine Activ e metFORMIN hydrochloride 500 mg oral tablet (1 source) Biguanide take 1 tablet by mouth every twelve hours metFORMIN HCl 500 MG 1 tablet with a meal Orally twice a day Active omeprazole 20 mg delayed release oral capsule (3 sources) Proton Pump Inhibitor Start: 03-02-20 End: 03-02-20 take 1 capsule by mouth before mealtime omeprazole (PriLOSEC) [address] capsule Indications: Heartburn during in third trimester Take 1 capsule (20 mg) by mouth in the morning. Take before meals. Do not crush or chew.. 30 capsule 03/02/2024 03/02/2025 Active ondansetron 4 mg oral tablet (1 source) Serotonin-3 Receptor Antagonist Start: 02-13-20 24 take 4 mg by mouth every eight hours Ondansetron Hcl Active 4 MG PO Every 8 hours February 13, 2024 12:00am polymyxin b 00917 unt/ml / trimethoprim 1 mg/ml ophthalmic solution (3 sources) Dihydrofolate Reductase Inhibitor Antibacterial, Polymyxin-class Antibacterial Start: 01-05-20 Polymyxin B-Trimethoprim 56056-6.1 UNIT/ML 1 drop into affected eye Ophthalmic every 3 hours up to six times daily for 7 days Dec, Active (10 sources) Active Vehtbyoa-Vwe-Ih-FA ( 1 + IRON PO) (3 sources) Qfagorcb-Tcu-Sl-FA ( 1 + IRON PO) Take by mouth Active Probiotic (1 source) Probiotic Active Vitamin [...] acid 7540 MG / polyethylene glycol 3350 78727 MG / potassium chloride 1200 MG / sodium ascorbate 70943 MG / sodium chloride 3200 MG Powder for Oral Solution) / 1 (polyethylene glycol 3350 405717 MG / potassium chloride 1000 MG / [...] Classification Problem Date Documented Da te Episodic/Chronic Allergic reactions (5 sources) Atopic dermatitis; Translations: [Other atopic dermatitis] Chronic Anxiety disorders (20 sources) Anxiety; Translations: [Anxiety disorder, unspecified] Onset: 12-21-2021 Resolved: 12-21-2021 Chronic Chronic obstructive pulmonary disease and bronchiectasis (1 source) Bronchitis, not specified as acute or chronic Episodic Esophageal disorders (1 source) Gastro-esophageal reflux [...] acute noninfective otitis externa, bilateral Episodic Other endocrine disorders (14 sources) Polycystic ovary syndrome; Translations: [Polycystic ovarian syndrome] Onset: 07-30-2023 07-30-2023 Chronic Other endocrine disorders (4 sources) Polycystic [...] obesity due to excess calories Chronic Other and delivery including normal (11 sources) Encounter for care and examination of lactating mother; Translations: [Encounter for routine follow-up] Onset: 09-10-2022 Episodic Other screening for suspected conditions (not mental [...] ; Translations: [ state, incidental] 02-13-2024 Episodic Residual codes; unclassified (2 sources) Gestation period, 32 weeks; Translations: [32 weeks gestation of ] 08-04-2024 Episodic Spondylosis; intervertebral disc disorders; other back problems (2 sources) Low back pain; Translations: [Low back pain] 02-13-2024 Episodic Thyroid disorders (20 sources) Hypothyroidism; Translations: [Other specified hypothyroidism] Onset: 12-21-2021 Resolved: 12-21-2021 Chronic Unclassified (1 source) CONTACT W/AND (SUSP) EXPOS COVID-19; Translations: [CONTACT W/AND (SUSP) EXPOS COVID-19] Onset: 09-17-2022 Past or Other Problems Problem Classification Problem Date Documented Date Episodic/Chronic Abdominal pain (5 sources) Left lower quadrant pain; Translations: [Abdominal pain] Onset: 07-23-2022 10-26-2019 Episodic Diabetes mellitus without complication (19 sources) Prediabetes; Translations: [Prediabetes] Onset: 12-21-2021 Resolved: 12-21-2021 Episodic Immunizations and screening for infectious disease [...] 3RD TRI NA/UNS] Onset: 07-20-2022 Episodic Other ear and sense organ disorders (4 sources) Otalgia, right ear; Translations: [Otalgia, unspecified] Onset: 07-30-2023 Episodic Other female genital disorders (1 source) Other specified noninflammatory disorders of vagina; Translations: [OTH SPEC NONINFLAMMATORY D/O VAGINA] Onset: 04-19-2022 Episodic Residual codes; unclassified (1 source) 39 [...] Test Name Value Interpretation Reference Range Facility Urinalysis macro (dipstick) panel (U)on 08-04-2024 Bilirubin, UA Negative Negative - 4(70) +++ mg/dL [facility] Blood, UA Negative Negative - 50 Jose Manuel/mcL [facility] Clarity, UA Clear [facility], UA Yellow [facility] Glucose, UA Negative Negative - 1999(110) ++++ mg/dL [facility] Interpretation and review of laboratory results Abnormal [facility] Ketones, UA Negative Negative - 160(16) ++++ mg/dL [facility] Leukocytes, UA Trace Negative - 500+++ Alexys/mcL [facility] Nitrite, UA Negative Negative - Positive [facility] pH, UA 7.0 5 - 9 [facility] e Protein, UA Negative Negative - 1999(20) ++++ mg/dL [facility] Spec Grav, UA 1.015 1 - 1.03 [facility] Urobilinogen, UA 0.2 0.2 - 12 mg/dL [facility] Human papilloma virus 16+18+ 31+33+35+39+45+51+52+56+58+59+66+68 DNA [Presence] in Anders 12-16-2023 HPV 16+18+31+33+35+39+45 +51+52+56+58+59+66+6 8 DNA Probe+sig amp Ql (Cvx) Note . [facility] Comment on above: TESTS RESULT FLAG UN ITS REF RANGE LAB DI AGNOSIS: 02 NEGATIVE FOR INTRAEPITHELIAL LESION OR MALIGNANCY.Specimen adequacy: 02 Satisfactory for evaluation. Endocervical and/or squamous metaplastic cells (endocervical component) are present.Performed by: 02 Raeann Duran, Passenger Screener (ASCP). 02Note: Note 02 The Pap smear is a screening test designed to aid in the detection of premalignant and malignant conditions of the uterine cervix. It is not a diagnostic procedure and should not be used as the sole means of detecting cervical cancer. Both false-positive and false-negative reports do occur.Test Methodology: Note 02 The [employer] Broadcast Maintenance Engineer was unable to read this specimen. Therefore a manual review was performed. ----- FLAG LEGEND: L-Low Normal,H-High Normal,LL-Alert Low,HH-Alert High <-Panic Low,>-Panic High,A-Abnormal,AA-Critical Abnormal ---Performed at:[address] [id number] Heavenly Serrano MD, . 02 The HPV DNA reflex criteria were not met with this specimen result therefore, no HPV testing was performed.The HPV DNA reflex criteria were not met with this specimenresult therefore, no HPV testing was performed.Performed at: =[facility] [id number] Director: Heavenly Serrano MD, Phone: [phone] at: [address] [id number] Director: Heavenly Serrano MD, Phone: [phone] No Panel Informationon 12-16 Reference Lab Test Patient Age Note . [facility] Comment on above: TESTS RESULT FLAG UN ITS REF RANGE LAB Clinician Provided Cytology Information Source.............Cervix No. of containers..01 ThinPrep VialAge Niruo DELORIS Leslye... FLAG LEGEND: L-Low Normal,H-High Normal,LL-Alert Low,HH-Alert High <-Panic Low,>-Panic High,A-Abnormal,AA-Critical Abnormal ---Performed at:01 =[facility] [id number] Heavenly Serrano MD, A1C HEMOGLOBINon 10-31-2023 HbA1c (Bld) [Mass fraction] 5.8 % [employer] Other HbA1c (Bld) [Mass fraction]o n 10-31-2023 A1C HEMOGLOBIN [facility] Other A1C HEMOGLOBINon 06-24-2023 HbA1c (Bld) [Mass fraction] 5.2 % [employer] Other HbA1c (Bld) [Mass fraction]o n 06-24-2023 A1C HEMOGLOBIN Jiff Other Quick Strepon 04-15-2023 S. pyogenes Org specific cx Ql (Throat) Positive [employer] Other Quick Strep [employer] Other FREE T4on 02-21-2023 Free T4 [Mass/Vol] 0.89 ng/dL Normal 0.76-1.46 [facility] Comment on above: Performed By: #### H H #### [facility] [address] [place] [id number] Bella Jerome PROF 14(COMP METB)on 023 Albumin [Mass/Vol] 3.7 g/dL Normal 3.4-5.0 [facility] Comment on above: Performed By: #### H H #### [facility] [address] [place] [address] Dr. Bella Jerome Albumin/Globulin [Mass ratio] 0.9 {ratio} Normal [facility] Comment on above: Performed By: #### H H #### [facility] [address] [place] [address] Dr. Bella Jerome ALP [Catalytic activity/Vol] 132 U/L Critically high 46-116 [facility] Comment on above: Performed By: #### H H #### [facility] [address] [place] [address] Dr. Bella Jerome ALT [Catalytic activity/Vol] 32 U/L Normal 14-59 [facility] Comment on above: Performed By: #### H H #### [facility] [address] [place] [address] Dr. Bella Jerome Anion gap [Moles/Vol] 12.8 mmol/L Normal [facility] Comment on above: Performed By: #### H H #### [facility] [address] [place] [address] Dr. Bella Jerome AST [Catalytic activity/Vol] 23 U/L Normal 15-37 [facility] Comment on above: Performed By: #### H H #### [facility] [address] [place] [address] Dr. Bella Jerome Bilirubin [Mass/Vol] 0.6 mg/dL Normal 0.2-1.0 [facility] Comment on above: Performed By: #### H H #### [facility] [address] [place] [address] Dr. Bella Jerome Calcium [Mass/Vol] 9.0 mg/dL Normal 8.5-10.1 [facility] Comment on above: Performed By: #### H H #### [facility] [address] [place] [address] Dr. Bella Jerome Chloride [Moles/Vol] 102 mmol/L Normal 98-107 [facility] Comment on above: Performed By: #### H H #### [facility] [address] [place] [address] Dr. Bella Jerome CO2 [Moles/Vol] 28.2 mmol/L Normal 21.0-32.0 [facility] Comment on above: Performed By: #### H H #### [facility] [address] [place] [address] Dr. Bella Jerome Creatinine [Mass/Vol] 0.67 mg/dL Normal 0.55-1.02 [facility] Comment on above: Performed By: #### H H #### [facility] [address] [place] [address] Dr. Bella Jerome EGFR-AF GUYANESE >60 Normal >=60 [facility] Comment on above: Performed By: #### H H #### [facility] [address] [place] [address] Dr. Bella Jerome EGFR-NON AF GUYANESE >60 Normal >=60 [facility] Comment on above: Performed By: #### H H #### [facility] [address] [place] [address] Dr. Bella Jerome Globulin (S) [Mass/Vol] 4.2 g/dL Normal [facility] Comment on above: Performed By: #### H H #### [facility] [address] [place] [address] Dr. Bella Jerome Glucose [Mass/Vol] 88 mg/dL Normal 74-106 [facility] Comment on above: Performed By: #### H H #### [facility] [address] [place] [address] Dr. Bella Jerome Potassium [Moles/Vol] 4.0 mmol/L Normal 3.5-5.1 [facility] Comment on above: Performed By: #### H H #### [facility] [address] [place] [address] Dr. Bella Jerome Protein [Mass/Vol] 7.9 g/dL Normal 6.4-8.2 [facility] Comment on above: Performed By: #### H H #### [facility] [address] [place] [address] Dr. Bella Jerome Sodium [Moles/Vol] 139 mmol/L Normal 136-145 [facility] Comment on above: Performed By: #### H H #### [facility] [address] [place] [address] Dr. Bella Jerome Urea nitrogen [Mass/Vol] 12.0 mg/dL Normal 7.0-18.0 [facility] Comment on above: Performed By: #### H H #### [facility] [address] [place] [address] Dr. Bella Jerome Urea nitrogen/Creatinine [Mass ratio] 17.9 mg/mg Normal [facility] Comment on above: Performed By: #### H H #### [facility] [address] [place] [address] Dr. Bella Jerome TSHon 02-21-2023 TSH 2.463 uIU/mL Normal 0.358-3.740 [facility] Comment on above: Performed By: #### H H #### [facility] [address] [place] [address] Dr. Bella Jerome VITAMIN D 25 OHon 02-21-2023 VIT D 25-OH 23.1 ng/mL Normal [facility] Comment on above: Performed By: #### H H #### [facility] [address] [place] [address] Dr. Bella Jerome VIT D RANGES SEE BELOW Normal [facility] Comment on above: Result Comment: <20 ng/mL Vit D deficient 20 - <30 ng/mL Vit D insufficient 30 - 100 ng/mL Vit D sufficient >100 ng/mL Potential Toxicity Performed By: #### H H #### [facility] [address] [place] [address] Dr. Bella Jerome CBC AUTO DIFFon 12-26-2022 BASO # 0.0 103/ul Normal 0.0-0.1 [facility] Comment on above: Performed By: #### C BC #### [facility] [address] [place] [address] Dr. Bella Jerome Basophils/100 WBC (Bld) 0.3 % Normal 0.2-2.0 [facility] Comment on above: Performed By: #### C BC #### [facility] [address] [place] [address] Dr. Bella Jerome EO # 0.1 103/ul Normal 0.0-0.7 [facility] Comment on above: Performed By: #### C BC #### [facility] [address] [place] [address] Dr. Bella Jerome Eosinophils/100 WBC (Bld) 1.6 % Normal 0.9-7.0 [facility] Comment on above: Performed By: #### C BC #### [facility] [address] [place] [address] Dr. Bella Jerome Erythrocyte distribution width (RBC) [Ratio] 12.7 % Normal 11.0-15.0 [facility] Comment on above: Performed By: #### C BC #### [facility] [address] [place] [address] Dr. Bella Jerome Hematocrit (Bld) [Volume fraction] 37.2 % Normal 36.0-48.0 [facility] Comment on above: Performed By: #### C BC #### [facility] [address] [place] [address] Dr. Bella Jerome Hemoglobin (Bld) [Mass/Vol] 12.5 g/dL Normal 12.0-16.0 [facility] Comment on above: Performed By: #### C BC #### [facility] [address] [place] [address] Dr. Bella Jerome IG # 0.02 10e3/ul Normal 0.00-0.03 [facility] Comment on above: Performed By: #### C BC #### [facility] [address] [place] [address] Dr. Bella Jerome IG % 0.3 % Normal 0.0-0.5 [facility] Comment on above: Performed By: #### C BC #### [facility] [address] [place] [address] Dr. Bella Jerome LYMPH # 2.3 103/ul Normal 1.2-3.8 [facility] Comment on above: Performed By: #### C BC #### [facility] [address] [place] [address] Dr. Bella Jerome Lymphocytes/100 WBC (Bld) 34.1 % Normal 20.5-60.0 [facility] Comment on above: Performed By: #### C BC #### [facility] [address] [place] [address] Dr. Bella Jerome MANUAL DIFF REQ NO Normal [facility] Comment on above: Performed By: #### C BC #### [facility] [address] [place] [address] Dr. Bella Jerome MCH (RBC) [Entitic mass] 30.9 pg Normal 26.7-34.0 [facility] Comment on above: Performed By: #### C BC #### [facility] [address] [place] [address] Dr. Bella Jerome MCHC (RBC) [Mass/Vol] 33.6 g/dL Normal 29.9-35.2 [facility] Comment on above: Performed By: #### C BC #### [facility] [address] [place] [address] Dr. Bella Jerome MCV (RBC) [Entitic vol] 91.9 fL Normal 81.0-99.0 [facility] Comment on above: Performed By: #### C BC #### [facility] [address] [place] [address] Dr. Bella Jerome MONO # 0.4 103/ul Normal 0.3-0.8 [facility] Comment on above: Performed By: #### C BC #### [facility] [address] [place] [address] Dr. Bella Jerome Monocytes/100 WBC (Bld) 5.1 % Normal 1.7-12.0 [facility] Comment on above: Performed By: #### C BC #### [facility] [address] [place] [address] Dr. Bella Jerome NEUT # 4.0 103/ul Normal 1.4-6.5 [facility] Comment on above: Performed By: #### C BC #### [facility] [address] [place] [address] Dr. Bella Jerome Neutrophils/100 WBC (Bld) 58.6 % Normal 43.0-75.0 [facility] Comment on above: Performed By: #### C BC #### [facility] [address] [address] [address] Bella Jerome Platelet mean volume (Bld) [Entitic vol] 11.5 fL Normal 9.5-13.5 [facility] Comment on above: Performed By: #### C BC #### [facility] [address] [address] [address] Bella Jerome PLT 243 103/ul Normal 150-450 [facility] Comment on above: Performed By: #### C BC #### [facility] [address] [address] [address] Bella Jerome RBC 4.05 106/ul Critically low 4.20-5.40 [facility] Comment on above: Performed By: #### C BC #### [facility] [address] [address] [address] Bella Jerome WBC 6.8 103/ul Normal 4.0-11.0 [facility] Comment on above: Performed By: #### C BC #### [facility] [address] [address] [address] Bella Jerome FREE T4on 12-26-2022 Free T4 [Mass/Vol] 1.05 ng/dL Normal 0.76-1.46 [facility] Comment on above: Performed By: #### F T4, VITAD, B12FOL, IRON ####[facility] [id number] [id number] Bella Jerome GLYCOHEMOGLOBIN A1Con 2022 ADA RECOMMENDATION SEE BELOW Normal [facility] [facility] Comment on above: Result Comment: ADA RECOMMENDED LIMIT 4.0 - 6.0 ADA THERAPEUTIC TARGET < 7.0 ACTION SUGGESTED > 7.0 Performed By: #### A 1C #### [facility] [address] [address] [address] Bella Jerome Glucose [Mass/Vol] 103 mg/dL Normal [facility] Comment on above: Performed By: #### A 1C #### [facility] [address] [address] [address] Bella Jerome HbA1c (Bld) [Mass fraction] 5.2 % Normal 4.5-6.2 [facility] Comment on above: Performed By: #### A 1C #### [facility] [address] [address] [address] Bella Jerome IRONon 12-26-2022 Iron [Mass/Vol] 74.0 ug/dL Normal 50.0-170.0 [facility] Comment on above: Performed By: #### F T4, VITAD, B12FOL, IRON ####[facility] [address] [place], [place] [address]BgDr. Bella Jerome LIPID PROFILEon 12-26-2022 CHOL-HDL RATIO NORM SEE BELOW Normal [facility] Comment on above: Result Comment: 3.3 - 4.4 LOW RISK 4.4 - 7.1 AVERAGE RISK 7.1 - 11.0 MODERATE RISK >11.0 HIGH RISK Performed By: #### C MP, TSH, LIPID #### [facility] [address] [address] [address] Bella Jerome Cholesterol [Mass/Vol] 153 mg/dL Normal <=200 [facility] Comment on above: Performed By: #### C MP, TSH, LIPID #### [facility] [address] [address] [address] Bella Jerome Cholesterol in HDL [Mass/Vol] 67 mg/dL Critically high 40-60 [facility] Comment on above: Performed By: #### C MP, TSH, LIPID #### [facility] [address] [address] [address] Bella Jerome Cholesterol in LDL [Mass/Vol] 77.2 mg/dL Normal [facility] Comment on above: Performed By: #### C MP, TSH, LIPID #### [facility] [address] [address] [address] Bella Jerome Cholesterol.total/Ch olesterol in HDL [Mass ratio] 2.3 {ratio} Normal [facility] Comment on above: Performed By: #### C MP, TSH, LIPID #### [facility] [address] [address] [address] Bella Jerome HDL NORMAL > or = 60 mg/dl - LOW CARDIOVASCULAR RISK <40 mg/dl - HIGH CARDIOVASCULAR RISK Normal [facility] Comment on above: Performed By: #### C MP, TSH, LIPID #### [facility] [address] [address] [address] Bella Jerome LDL CALC NORMAL SEE BELOW Normal [facility] Comment on above: Result Comment: <100 mg/dl OPTIMAL 100 - 129 mg/dl NEAR OR ABOVE OPTIMAL 130 - 159 mg/dl BORDERLINE HIGH 160 - 189 mg/dl HIGH >190 mg/dl VERY HIGH Performed By: #### C MP, TSH, LIPID #### [facility] [address] [address] [address] Bella Jerome Triglyceride [Mass/Vol] 44 mg/dL Normal <=150 [facility] Comment on above: Performed By: #### C MP, TSH, LIPID #### [facility] [address] [address] [address] Bella Jerome VLDL CALC 8.8 mg/dL Normal [facility] Comment on above: Performed By: #### C MP, TSH, LIPID #### [facility] [address] [address] [address] Bella Jerome MICROALB CREAT RATIO RANDOMo n 12-26-2022 mALB 2.3 mg/L Normal <=30.0 [facility] Comment on above: Performed By: #### H H #### [facility] [address] [address] [address] Bella Jerome MALB CR RATIO 17.4 mg/g Normal 0.0-29.9 [facility] Comment on above: Performed By: #### H H #### [facility] [address] [address] [address] Bella Jerome MALB CR RATIO RANGE SEE BELOW Normal [facility] Comment on above: Result Comment: NO M ICROALBUMINURIA 0-29 MG/G CLINICAL MICROALBUMINURIA 30-300 MG/G MACROALBUMINURIA >300 MG/G Performed By: #### H H #### [facility] [address] [address] [address] Bella Jerome URINE CREAT 131.90 mg/dL Normal 20.00-300.00 [facility] Comment on above: Performed By: #### H H #### [facility] [address] [address] [address] Bella Jerome PROF 14(COMP METB)on 023 Albumin [Mass/Vol] 4.1 g/dL Normal 3.4-5.0 [facility] Comment on above: Performed By: #### C MP, TSH, LIPID #### [facility] [address] [address] [address] Bella Jerome Albumin/Globulin [Mass ratio] 1.3 {ratio} Normal [facility] Comment on above: Performed By: #### C MP, TSH, LIPID #### [facility] [address] [place] [address] Dr. Bella Jeroem ALP [Catalytic activity/Vol] 124 U/L Critically high 46-116 [facility] Comment on above: Performed By: #### C MP, TSH, LIPID #### [facility] [address] [address] [address] Bella Jerome ALT [Catalytic activity/Vol] 16 U/L Normal 14-59 [facility] Comment on above: Performed By: #### C MP, TSH, LIPID #### [facility] [address] [address] [address] Bella Jerome Anion gap [Moles/Vol] 13.4 mmol/L Normal [facility] Comment on above: Performed By: #### C MP, TSH, LIPID #### [facility] [address] [address] [address] Bella Jerome AST [Catalytic activity/Vol] 17 U/L Normal 15-37 [facility] Comment on above: Performed By: #### C MP, TSH, LIPID #### [facility] [address] [address] [address] Bella Jerome Bilirubin [Mass/Vol] 0.8 mg/dL Normal 0.2-1.0 [facility] Comment on above: Performed By: #### C MP, TSH, LIPID #### [facility] [address] [address] [address] Bella Jerome Calcium [Mass/Vol] 8.9 mg/dL Normal 8.5-10.1 [facility] Comment on above: Performed By: #### C MP, TSH, LIPID #### [facility] [address] [address] [address] Bella Jerome Chloride [Moles/Vol] 103 mmol/L Normal 98-107 [facility] Comment on above: Performed By: #### C MP, TSH, LIPID #### [facility] [address] [address] [address] Bella Jerome CO2 [Moles/Vol] 25.6 mmol/L Normal 21.0-32.0 [facility] Comment on above: Performed By: #### C MP, TSH, LIPID #### [facility] [address] [address] [address] Bella Jerome Creatinine [Mass/Vol] 0.55 mg/dL Normal 0.55-1.02 [facility] Comment on above: Performed By: #### C MP, TSH, LIPID #### [facility] [address] [place] [address] Dr. Bella Jerome EGFR-AF GUYANESE >60 Normal >=60 [facility] Comment on above: Performed By: #### C MP, TSH, LIPID #### [facility] [address] [address] [address] Bella Jerome EGFR-NON AF GUYANESE >60 Normal >=60 [facility] Comment on above: Performed By: #### C MP, TSH, LIPID #### [facility] [address] [address] [address] Bella Jerome Globulin (S) [Mass/Vol] 3.1 g/dL Normal [facility] Comment on above: Performed By: #### C MP, TSH, LIPID #### [facility] [address] [place] [address] Dr. Bella Jerome Glucose [Mass/Vol] 82 mg/dL Normal 74-106 [facility] Comment on above: Performed By: #### C MP, TSH, LIPID #### [facility] [address] [place] [address] Dr. Bella Jerome Potassium [Moles/Vol] 4.0 mmol/L Normal 3.5-5.1 [facility] Comment on above: Performed By: #### C MP, TSH, LIPID #### [facility] [address] [place] [address] Dr. Bella Jerome Protein [Mass/Vol] 7.2 g/dL Normal 6.4-8.2 [facility] Comment on above: Performed By: #### C MP, TSH, LIPID #### [facility] [address] [place] [address] Dr. Bella Jerome Sodium [Moles/Vol] 138 mmol/L Normal 136-145 [facility] Comment on above: Performed By: #### C MP, TSH, LIPID #### [facility] [address] [place] [address] Dr. Bella Jerome Urea nitrogen [Mass/Vol] 14.0 mg/dL Normal 7.0-18.0 [facility] Comment on above: Performed By: #### C MP, TSH, LIPID #### [facility] [address] [place] [address] Dr. Bella Jerome Urea nitrogen/Creatinine [Mass ratio] 25.5 mg/mg Normal [facility] Comment on above: Performed By: #### C MP, TSH, LIPID #### [facility] [address] [place] [address] Dr. Bella Jerome TSHon 12-26-2022 TSH 0.224 uIU/mL Critically low 0.358-3.740 [facility] Comment on above: Performed By: #### C MP, TSH, LIPID #### [facility] [address] [place] [address] Dr. Bella Jerome VIT B12 AND FOLATEon 023 Cobalamin (Vitamin B12) [Mass/Vol] 702.0 pg/mL Normal 193.0-986.0 [facility] Comment on above: Performed By: #### F T4, VITAD, B12FOL, IRON ####[facility] [address] [id number] Jerome FOLATE 25.10 ng/mL Normal 8.60-58.90 [facility] Comment on above: Performed By: #### F T4, VITAD, B12FOL, IRON ####[facility] [address] [id number] Jerome VITAMIN D 25 OHon 12-26-2022 VIT D 25-OH 25.4 ng/mL Normal [facility] Comment on above: Performed By: #### F T4, VITAD, B12FOL, IRON ####[facility] [address] [address]DrWill Jerome VIT D RANGES SEE BELOW [facility] Comment on above: Result Comment: <20 ng/mL Vit D deficient 20 - <30 ng/mL Vit D insufficient 30 - 100 ng/mL Vit D sufficient >100 ng/mL Potential Toxicity Performed By: #### F T4, VITAD, B12FOL, IRON ####[facility] [address] [address]DrWill Jerome PAP ACOG PANEL 2: 21 to 31on 12-18-2022 . . Normal [facility] Comment on above: Performed By: #### C BC #### [facility] [address] [place] [address] Dr. Bella Jerome Age Gdln ACOG Testing - Normal [facility] Comment on above: Performed By: #### C BC #### [facility] [address] [place] [address] Dr. Bella Jerome DIAGNOSIS: Comment Normal [facility] Comment on above: Result Comment: NEGA TIVE FOR INTRAEPITHELIAL LESION OR MALIGNANCY. Performed By: #### C BC #### [facility] [address] [place] [address] Dr. Bella Jerome Methodology: Comment Normal [facility] Comment on above: Result Comment: This liquid based ThinPrep(R) pap test was screened with the use of an image guided system. Performed By: #### C BC #### [facility] [address] [address] [address] Bella Jerome Note: Comment Normal [facility] Comment on above: Result Comment: The Pap smear is a screening test designed to aid in the detection of premalignant and malignant conditions of the uterine cervix. It is not a diagnostic procedure and should not be used as the sole means of detecting cervical cancer. Both false-positive and false-negative reports do occur. . Performed By: #### C BC #### [facility] [address] [address] [address] Bella Jerome Performed by: Comment Normal [facility] Comment on above: Result Comment: Byron Irby, Passenger Screener (ASCP) Performed By: #### C BC #### [facility] [address] [place] [address] Dr. Bella Jerome Reflex Criteria: Comment Normal [facility] Comment on above: Result Comment: The HPV DNA reflex criteria were not met with this specimen result therefore, no HPV testing was performed. . Performed By: #### C BC #### [facility] [address] [place] [address] Dr. Bella Jerome Specimen adequacy: Comment Normal [facility] Comment on above: Result Comment: Sati sfactory for evaluation. Endocervical and/or squamous metaplastic cells (endocervical component) are present. Performed By: #### C BC #### [facility] [address] [place] [address] Dr. Bella Jerome CBC W MANUAL DIFFon 09-07-20 22 ATYPICAL LYMPH # Normal [facility] Comment on above: Performed By: #### C BCMAN ####[facility] [address] [address]Dr. Bella Jerome ATYPICAL LYMPH % Normal [facility] Comment on above: Performed By: #### C BCMAN ####[facility] [address] [address]Dr. Bella Jerome BAND # 0.2 103/ul Normal 0.0-0.3 [facility] Comment on above: Performed By: #### C BCMAN ####[facility] [address] [address]Dr. Bella Jerome BAND % 1 % Normal 0-5 [facility] Comment on above: Performed By: #### C BCMAN ####[facility] [address] [address]Dr. Bella Jerome BASOM # 0.00 103/ul Normal 0.00-0.10 [facility] Comment on above: Performed By: #### C BCMAN ####[facility] [address] [address]Dr. Bella Jerome BASOM % 0.0 % Critically low 0.2-2.0 [facility] Comment on above: Performed By: #### C BCMAN ####[facility] [address] [place], [place] [address]Dr. Bella Jerome BLAST # Normal [facility] Comment on above: Performed By: #### C BCRELL ####[facility] [address] [place], [place] [address]Dr. Yiwally Jeorme BLAST % Normal [facility] Comment on above: Performed By: #### C BCRELL ####[facility] [address] [place], [place] [address]Dr. Bella Jerome CORRECTED WBC Normal 4.0-11.0 [facility] Comment on above: Performed By: #### C BCRELL ####[facility] [address] [place], [place] [address]Dr. Bella Jerome EOS # 0.00 103/ul Normal 0.00-0.70 [facility] Comment on above: Performed By: #### C BCRELL ####[facility] [address] [address]Dr. Bella Jerome EOS% 0.0 % Critically low 0.9-7.0 [facility] Comment on above: Performed By: #### C BCMAN ####[facility] [address] [address]Dr. Bella Jerome HCT 30.5 % Critically low 36.0-48.0 [facility] Comment on above: Performed By: #### C BCMAN ####[facility] [address] [place], [place] [address]Xr. Bella Jerome HGB 10.5 g/dl Critically low 12.0-16.0 [facility] Comment on above: Performed By: #### C PEDRO ####[facility] [address] [place], [place] [address]Mu. Bella Jerome LYMPHM # 2.78 103/ul Normal 1.20-3.80 [facility] Comment on above: Performed By: #### C PEDRO ####[facility] [address] [place], [place] [address]Ez. Bella Jerome LYMPHM% 13.0 % Critically low 20.5-60.0 [facility] Comment on above: Performed By: #### C PEDRO ####[facility] [address] [place], [place] [address]Tv. Bella Jerome MCH 32.8 pg Normal 26.7-34.0 [facility] Comment on above: Performed By: #### Jennifer VASQUEZ ####[facility] [address] [id number]. Bella Jerome MCHC 34.4 g/dl Normal 29.9-35.2 [facility] Comment on above: Performed By: #### C PEDRO ####[facility] [address] [place], [place] [address]Ra. Bella Jerome MCV 95.3 fL Normal 81.0-99.0 [facility] Comment on above: Performed By: #### Jennifer VASQUEZ ####[facility] [address] [place], [place] [address]Bu. Bella Jerome METAMYELOCYTE # Normal [facility] Comment on above: Performed By: #### C PEDRO ####[facility] [address] [place], [place] [address]Wg. Bella Jerome METAMYELOCYTE % Normal [facility] Comment on above: Performed By: #### Jennifer VASQUEZ ####[facility] [address] [id number]. Bella Jerome MONOM# 2.35 103/ul Critically high 0.30-0.80 [facility] Comment on above: Performed By: #### C PEDRO ####[facility] [address] [id number]. Bella Justus MONOM% 11.0 % Normal 1.7-12.0 [facility] Comment on above: Performed By: #### C PEDRO ####[facility] [address] [id number]. Bella Justus MPV 11.1 fL Normal 9.5-13.5 [facility] Comment on above: Performed By: #### C PEDRO ####[facility] [address] [address]Dr. Bella Justus MYELOCYTE # Normal [facility] Comment on above: Performed By: #### C PEDRO ####[facility] [address] [id number]. Bella Jerome MYELOCYTE % Normal [facility] Comment on above: Performed By: #### C PEDRO ####[facility] [address] [id number]. Bella Justus NRBC Normal [facility] Comment on above: Performed By: #### C PEDRO ####[facility] [address] [id number]. Liwally Justus PLT 227 103/ul Normal 150-450 [facility] Comment on above: Performed By: #### C PEDRO ####[facility] [address] [id number]. Bella Jerome RBC 3.20 106/ul Critically low 4.20-5.40 [facility] Comment on above: Performed By: #### C PEDRO ####[facility] [address] [place], [place] [address]Dr. Liwally Justus RDW 12.8 % Normal 11.0-15.0 [facility] Comment on above: Performed By: #### C PEDRO ####[facility] [address] [place], [place] [address]Dr. Bella Jerome SEG # 16.05 103/ul Critically high 1.40-6.50 [facility] Comment on above: Performed By: #### C BCMAN ####[facility] [address] [address]Dr. Bella Jerome SEG % 75.0 % Normal 43.0-75.0 [facility] Comment on above: Performed By: #### C BCMAN ####[facility] [address] [address]Dr. Bella Jerome WBC 21.4 103/ul Critically high 4.0-11.0 [facility] Comment on above: Performed By: #### C BCMAN ####[facility] [address] [address]Dr. Bella Jerome CBC AUTO DIFFon 09-05-2022 BASO # 0.0 103/ul Normal 0.0-0.1 [facility] Comment on above: Performed By: #### C BC #### [facility] [address] [place] [address] Dr. Bella Jerome Basophils/100 WBC (Bld) 0.2 % Normal 0.2-2.0 [facility] Comment on above: Performed By: #### C BC #### [facility] [address] [place] [address] Dr. Bella Jerome EO # 0.1 103/ul Normal 0.0-0.7 [facility] Comment on above: Performed By: #### C BC #### [facility] [address] [place] [address] Dr. Bella Jerome Eosinophils/100 WBC (Bld) 0.6 % Critically low 0.9-7.0 [facility] Comment on above: Performed By: #### C BC #### [facility] [address] [place] [address] Dr. Bella Jerome Erythrocyte distribution width (RBC) [Ratio] 12.6 % Normal 11.0-15.0 [facility] Comment on above: Performed By: #### C BC #### [facility] [address] [place] [address] Dr. Bella Jerome Hematocrit (Bld) [Volume fraction] 32.5 % Critically low 36.0-48.0 [facility] Comment on above: Performed By: #### C BC #### [facility] [address] [place] [address] Dr. Bella Jerome Hemoglobin (Bld) [Mass/Vol] 11.1 g/dL Critically low 12.0-16.0 [facility] Comment on above: Performed By: #### C BC #### [facility] [address] [address] [address] Bella Jerome IG # 0.14 10e3/ul Critically high 0.00-0.03 [facility] Comment on above: Performed By: #### C BC #### [facility] [address] [place] [address] Dr. Bella Jerome IG % 1.1 % Critically high 0.0-0.5 [facility] Comment on above: Performed By: #### C BC #### [facility] [address] [place] [address] Dr. Bella Jerome LYMPH # 2.6 103/ul Normal 1.2-3.8 [facility] Comment on above: Performed By: #### C BC #### [facility] [address] [place] [address] Dr. Bella Jerome Lymphocytes/100 WBC (Bld) 20.2 % Critically low 20.5-60.0 [facility] Comment on above: Performed By: #### C BC #### [facility] [address] [place] [address] Dr. Bella Jerome MANUAL DIFF REQ NO Normal [facility] Comment on above: Performed By: #### C BC #### [facility] [address] [address] [address] Bella Jerome MCH (RBC) [Entitic mass] 32.2 pg Normal 26.7-34.0 [facility] Comment on above: Performed By: #### C BC #### [facility] [address] [place] [address] Dr. Bella Jerome MCHC (RBC) [Mass/Vol] 34.2 g/dL Normal 29.9-35.2 [facility] Comment on above: Performed By: #### C BC #### [facility] [address] [place] [address] Dr. Bella Jerome MCV (RBC) [Entitic vol] 94.2 fL Normal 81.0-99.0 [facility] Comment on above: Performed By: #### C BC #### [facility] [address] [place] [address] Dr. Bella Jerome MONO # 0.9 103/ul Critically high 0.3-0.8 The [facility] Comment on above: Performed By: #### C BC #### [facility] Laboratory [address] [place] [address] Dr. Bella Jerome Monocytes/100 WBC (Bld) 7.1 % Normal 1.7-12.0 [facility] Comment on above: Performed By: #### C BC #### [facility] [address] [place] [address] Dr. Bella Jerome NEUT # 8.9 103/ul Critically high 1.4-6.5 [facility] Comment on above: Performed By: #### C BC #### [facility] [address] [place] [address] Dr. Bella Jerome Neutrophils/100 WBC (Bld) 70.8 % Normal 43.0-75.0 [facility] Comment on above: Performed By: #### C BC #### [facility] [address] [place] [address] Dr. Bella Jerome Platelet mean volume (Bld) [Entitic vol] 11.0 fL Normal 9.5-13.5 The [facility] Comment on above: Performed By: #### C BC #### [facility] [address] [place] [address] Dr. Bella Jerome PLT 234 103/ul Normal 150-450 The [facility] Comment on above: Performed By: #### C BC #### [facility] [address] [place] [address] Dr. Bella Jerome RBC 3.45 106/ul Critically low 4.20-5.40 [facility] Comment on above: Performed By: #### C BC #### [facility] [address] [place], [place] [address] Dr. Bella Jerome WBC 12.6 103/ul Critically high 4.0-11.0 The [facility] Comment on above: Performed By: #### C BC #### [facility] [address] [place], [place] [address] Dr. Bella Jerome Covid-19 PCR ([facility])on SARS-CoV-2 (COVID-19) RNA FAVIAN+probe Ql (Unsp spec) Not detected Normal NOT DETECTED The [facility] Comment on above: Result Comment: When diagnostic [...] for this test is supported by the [place] of Health and Human Service's declaration that [...] be used). Performed By: #### C VDTBH ####[facility] [address] [place], [place] [address]Ho. Bella Jerome DRUG SCREEN RAPID (URINE)on 09-05-2022 AMP Negative Normal NEGATIVE The [facility] Comment on above: Performed By: #### D RUGRPD ####[facility] [address] [place] [id number]. Bella Jerome BAR Negative Normal NEGATIVE The [facility] Comment on above: Performed By: #### D RUGRPD ####[facility] [address] [place] [id number] Jerome BUP Negative Normal NEGATIVE The [facility] Comment on above: Performed By: #### D RUGRPD ####[facility] [address] [place] [id number]. Bella Jerome BZO Negative Normal NEGATIVE The [facility] Comment on above: Performed By: #### D RUGRPD ####[facility] [address] [place] [id number]. Bella Jerome NGA Negative Normal NEGATIVE The [facility] Comment on above: Performed By: #### D RUGRPD ####[facility] [address] [place], [place] [id number]. Bella Jerome CUT-OFFS SEE BELOW Normal [facility] Comment on above: Result Comment: [...] 300 ng/mL Performed By: #### D RUGRPD ####[facility] [address] [place], [place] [id number]. Bella Jerome DRUG CUT HEADER DRUG CLASS TEST SYSTEM CUT-OFF CONCENTRATIONS ARE FOLLOWS: Normal The [facility] Comment on above: Performed By: #### D RUGRPD ####[facility] [address] [place] [phone]. Bella Jerome mAMP Negative Normal NEGATIVE The [facility] Comment on above: Performed By: #### D RUGRPD ####[facility] [address] [place] [phone]. Bella Jerome MTD Negative Normal NEGATIVE The [facility] Comment on above: Performed By: #### D RUGRPD ####[facility] [address] [place] [phone]. Bella Jerome OPI Negative Normal NEGATIVE The [facility] Comment on above: Performed By: #### D RUGRPD ####[facility] [address] [place] [phone]. Yiwally Jerome OXY Negative Normal NEGATIVE The [facility] Comment on above: Performed By: #### D RUGRPD ####[facility] [address] [place] [id number]. Bella Jerome PCP Negative Normal NEGATIVE The [facility] Comment on above: Performed By: #### D RUGRPD ####[facility] [address] [place] [address]Dr. Bella Jerome PPX Negative Normal NEGATIVE The [facility] Comment on above: Performed By: #### D RUGRPD ####[facility] [address] [place] [address]Dr. Bella Jerome TCA Negative Normal NEGATIVE The [facility] Comment on above: Performed By: #### D RUGRPD ####[facility] [address] [place], [place] [id number]. Bella Jerome THC Negative Normal NEGATIVE The [facility] Comment on above: Performed By: #### D RUGRPD ####[facility] [address] [place] [address]Dr. Bella Jerome TYPE AND SCREENon 09-05-2022 TYPE AND SCREEN Negative Normal The [facility] Comment on above: Performed By: #### T NS ####[facility] [address] [place], [place] [address]Dr. Bella Jerome US PREG BIOPHY W NON [...] by: MANUELITO GREGG Date: 2022-08-31 17:06 Normal [facility] US PREG GROWTHon 08-30-2022 US [...] by: MANUELITO GREGG Date: 2022-08-30 17:59 Normal [facility] US PREG BIOPHY W NON [...] by: MANUELITO GREGG Date: 2022-08-24 17:10 Normal [facility] FREE T4on 08-21-2022 Free T4 [Mass/Vol] 0.90 ng/dL Normal 0.76-1.46 [facility] Comment on above: Performed By: #### C BC #### [facility] [address] [place] [address] [address] Bella Jerome TSHon 08-21-2022 TSH 1.033 uIU/mL Normal 0.358-3.740 [facility] Comment on above: Performed By: #### H H #### [facility] [address] [place] [address] [address] Bella Jerome PREG BIOPHY W NON STRESSo n 08-17-2022 [...] by: MANUELITO GREGG Date: 2022-08-17 18:33 Normal [facility] GROUP B STREP CULTUREon 07-28 S. agalactiae Ag Ql (Unsp spec) Culture Observations: NEGATIVE FOR GROUP B STREPTOCOCCUS. Normal [facility] Comment on above: Performed By: #### G BSCX ####[facility] [address] [place] [address]Dr. Bella Jerome PREG BIOPHY W NON STRESSo n 08-10-2022 [...] by: MANUELITO GREGG Date: 2022-08-10 16:36 Normal [facility] US PREG GROWTHon 08-10-2022 US [...] by: MANUELITO GREGG Date: 2022-08-10 16:37 Normal [facility] US PREG GROWTHon 07-25-2022 US [...] by: MANUELITO GREGG Date: 2022-07-25 18:18 Normal [facility] FREE T4on 07-24-2022 Free T4 [Mass/Vol] 0.98 ng/dL Normal 0.76-1.46 [facility] Comment on above: Performed By: #### F T4 #### [facility] [address] [place] [address] [address] Bella Jerome TSHon 07-24-2022 TSH 1.196 uIU/mL Normal 0.358-3.740 [facility] Comment on above: Performed By: #### T SH ####[facility] [address] [place], [place] [address]Dr. Bella Jerome UA (CLEAN/CATCH) THERAPEUTIC MENTOR/MICRO I F IND.on 07-20-2022 Bilirubin Ql (U) Negative Normal NEGATIVE [facility] Comment on above: Performed By: #### H H #### [facility] [address] [place] [address] Dr. Bella Jerome Clarity (U) CLEAR Normal CLEAR [facility] Comment on above: Performed By: #### H H #### [facility] [address] [place] [address] Dr. Bella Jerome Color (U) LT. YELLOW Normal YELLOW [facility] Comment on above: Performed By: #### H H #### [facility] [address] [place] [address] Dr. Bella Jerome Glucose Ql (U) Negative Normal NEGATIVE The [facility] Comment on above: Performed By: #### H H #### [facility] [address] [place] [address] Dr. Bella Jerome Hemoglobin Ql (U) Negative Normal NEGATIVE The [facility] Comment on above: Performed By: #### H H #### [facility] [address] [place] [address] Dr. Bella Jerome Ketones Ql (U) Negative Normal NEGATIVE [facility] Comment on above: Performed By: #### H H #### [facility] [address] [place] [address] Dr. Bella Jerome LEUKOCYTES Negative Normal NEGATIVE [facility] Comment on above: Performed By: #### H H #### [facility] [address] [place] [address] Dr. Bella Jerome Nitrite Ql (U) Negative Normal NEGATIVE [facility] Comment on above: Performed By: #### H H #### [facility] [address] [place] [address] Dr. Bella Jerome pH (U) 7.0 [pH] Normal 5-9 [facility] Comment on above: Performed By: #### H H #### [facility] [address] [place] [address] Dr. Bella Jerome SPEC GRAVITY <=1.005 Abnormal 1.005-<=1.025 [facility] Comment on above: Performed By: #### H H #### [facility] [address] [place] [address] Dr. Bella Jerome UA PROTEIN Negative Normal NEGATIVE/ TRACE The [facility] Comment on above: Performed By: #### H H #### [facility] [address] [place] [address] Dr. Bella Jerome UR MICRO IND NOT INDICATED Normal [facility] Comment on above: Performed By: #### H H #### [facility] [address] [place] [address] Dr. Bella Jerome Urobilinogen Qn (U) 0.2 {Kimberlee'U}/dL Normal 0.2 - 1. 0 [facility] Comment on above: Performed By: #### H H #### [facility] [address] [place] [address] Dr. Bella Jerome US PREG GROWTHon 06-27-2022 [...] by: RAGINI SANTOS Date: 2022-06-27 16:23 Normal [facility] FREE T4on 06-20-2022 Free T4 [Mass/Vol] 0.82 ng/dL Normal 0.76-1.46 [facility] Comment on above: Performed By: #### H H #### [facility] [address] [place] [address] Dr. Bella Jerome GLUCOSE - 1HRon 06-20-2022 Glucose [Mass/Vol] 127 mg/dL Critically high 74-106 T [facility] Comment on above: Performed By: #### H H #### [facility] [address] [place] [address] [address] Bella Jerome HEMOGRAM AND PLATELon 2021 Hematocrit (Bld) [Volume fraction] 32.4 % Critically low 36.0-48.0 [facility] Comment on above: Performed By: #### H H #### [facility] [address] [place] [address] [address] Bella Jerome Hemoglobin (Bld) [Mass/Vol] 10.9 g/dL Critically low 12.0-16.0 [facility] Comment on above: Performed By: #### H H #### [facility] [address] [place] [address] [address] Bella Jerome MCH (RBC) [Entitic mass] 32.9 pg Normal 26.7-34.0 [facility] Comment on above: Performed By: #### H H #### [facility] [address] [place] [address] Dr. Bella Jerome MCHC (RBC) [Mass/Vol] 33.6 g/dL Normal 29.9-35.2 [facility] Comment on above: Performed By: #### H H #### [facility] [address] [place] [address] [address] Bella Jerome MCV (RBC) [Entitic vol] 97.9 fL Normal 81.0-99.0 [facility] Comment on above: Performed By: #### H H #### [facility] [address] [place] [address] [address] Bella Jerome PLT 241 103/ul Normal 150-450 [facility] Comment on above: Performed By: #### H H #### [facility] [address] [place] [address] [address] Bella Jerome RBC 3.31 106/ul Critically low 4.20-5.40 [facility] Comment on above: Performed By: #### H H #### [facility] [address] [place] [address] [address] Bella Jerome WBC 11.3 103/ul Critically high 4.0-11.0 [facility] Comment on above: Performed By: #### H H #### [facility] [address] [place] [address] [address] Bella Jerome TSHon 06-20-2022 TSH 3.044 uIU/mL Normal 0.358-3.740 [facility] Comment on above: Performed By: #### C BC #### [facility] [address] [place] [address] Dr. Bella Jerome US PREG INCOMPLETE ANATOMYon 05-24-2022 US PREG INCOMPLETE ANATOMY EXAMINATION: US PREG INCOMPLETE ANATOMY HISTORY: screening COMPARISON: Ultrasound anatomy 04/26/2022 FINDINGS: Presentation: Cephalic Heart rate: 154 bpm Anatomy: Cervical, thoracic, and lumbar spine HERNANDO: 09/13/2022 IMPRESSION: 1. Adequate visualization of the cervical, thoracic, and lumbar spine; no appreciable abnormality. Electronically authenticated by: RAGINI SANTOS Date: 2022-05-24 17:33 Normal The [facility] US PREG ANATOMY SINGLEon US PREG ANATOMY [...] MANUELITO GREGG Date: 2022-04-26 16:54 Normal The [facility] CHLAMYDIA/GONOCOCCUS FAVIAN (SW AB/URINE/PAPon 04-19-2022 Chlamydia trachomatis, FAVIAN Negative Normal Negative The [facility] Comment on above: Performed By: #### C T/NGNA ####[facility] [address] [place] [address]DrWill Jerome Neisseria gonorrhoeae, FAVIAN Negative Normal Negative The [facility] Comment on above: Performed By: #### C T/NGNA ####[facility] [address] [place], [place] [address]JvWill Jerome VAGINITIS/VAGINOSIS DNA PROB Leonid 04-18-2022 Jessica species Negative Normal Negative The [facility] Comment on above: Performed By: #### H H #### [facility] [address] [place] [address] Dr. Bella Jerome Gardnerella vaginalis Negative Normal Negative [facility] Comment on above: Performed By: #### H H #### [facility] [address] [place] [address] Dr. Bella Jerome Trichomonas vaginalis Negative Normal Negative [facility] Comment on above: Performed By: #### H H #### [facility] [address] [place] [address] Dr. Bella Jerome FREE T4on 04-05-2022 Free T4 [Mass/Vol] 0.88 ng/dL Normal 0.76-1.46 [facility] Comment on above: Performed By: #### F T4 #### [facility] [address] [place] [address] Dr. Bella Jerome TSHon 04-05-2022 TSH 1.786 uIU/mL Normal 0.358-3.740 [facility] Comment on above: Performed By: #### T SH ####[facility] [address] [place], [place] [address]Dr. Bella Jerome TSH RANGE SEE BELOW Normal [facility] Comment on above: Result Comment: <0.3 4 UIU/ml HYPERTHYROID 0.34-5.60 UIU/ml EUTHYROID >5.60 UIU/ml HYPOTHYROID Performed By: #### T SH ####[facility] [address] [place] [address]Dr. Bella Jerome FREE T4on 02-26-2022 Free T4 [Mass/Vol] 1.06 ng/dL Normal 0.76-1.46 [facility] Comment on above: Performed By: #### C BC #### [facility] [address] [place] [address] Dr. Bella Jerome TSHon 02-26-2022 TSH 2.024 uIU/mL Normal 0.470-4.680 [facility] Comment on above: Performed By: #### C BC #### [facility] [address] [place], [place] [address] Dr. Bella Jerome TSH RANGE SEE BELOW Normal The [facility] Comment on above: Result Comment: <0.3 4 UIU/ml HYPERTHYROID 0.34-5.60 UIU/ml EUTHYROID >5.60 UIU/ml HYPOTHYROID Performed By: #### C BC #### [facility] [address] [place] [address] [address] Bella Jerome Vital Signs Date Time Vital Sign Value Performing Clinician Facility 08-04-2024 13:30-0400 Body mass index (BMI) [Ratio] 44.37 kg/m2 Marylou CARBAJAL Work Phone: [facility] 08-04-2024 13:30-0400 Body weight 113.63 kg Marylou CARBAJAL Work Phone: [facility] 08-04-2024 13:30-0400 Diastolic blood pressure 78 mm[Hg] Marylou CARBAJAL Work Phone: [facility] 08-04-2024 13:30-0400 Systolic blood pressure 128 mm[Hg] Marylou CARBAJAL Work Phone: [facility] 02-13-2024 11:24-0400 Body height 160.02 cm [facility] 02-13-2024 11:24-0400 Body mass index (BMI) [Ratio] 42.3 kg/m2 [facility] 02-13-2024 11:24-0400 Body weight 108.49 kg [facility] 02-13-2024 11:24-0400 Diastolic blood pressure 70 mm[Hg] [facility] 02-13-2024 11:24-0400 Heart rate 69 /min [facility] 02-13-2024 11:24-0400 Respiratory rate 18 /min [facility] 02-13-2024 11:24-0400 SaO2% (BldA) [Mass fraction] 98 % [facility] 02-13-2024 11:24-0400 Systolic blood pressure 118 mm[Hg] [facility] 10-31-2023 15:00-0500 Body height 160.02 cm Sandra Austin Other [facility] Other 10-31-2023 15:00-0500 Body mass index (BMI) [Ratio] 45.41 kg/m2 Sandra Geovanna Other [facility] Other 10-31-2023 15:00-0500 Body temperature 98.5 [degF] Sandra Austin Other [facility] Other 10-31-2023 15:00-0500 Body weight 116.3 kg Sandra Geovanna Other [facility] Other 10-31-2023 15:00-0500 Diastolic blood pressure 80 mm[Hg] Sandra Austin Other [facility] Other 10-31-2023 15:00-0500 Respiratory rate 18 /min Sandra Geovanna Other [facility] Other 10-31-2023 15:00-0500 SaO2% (BldA) [Mass fraction] 98 % Sandra Austin Other [facility] Other 10-31-2023 15:00-0500 Systolic blood pressure 128 mm[Hg] Sandra Austin Other [facility] Other 06-24-2023 14:30-0400 Body height 160.02 cm Sandra Austin Other [facility] Other 06-24-2023 14:30-0400 Body mass index (BMI) [Ratio] 44.87 kg/m2 Sandra Austin Other [facility] Other 06-24-2023 14:30-0400 Body weight 114.9 kg Sandra Geovanna Other [facility] Other 06-24-2023 14:30-0400 Diastolic blood pressure 60 mm[Hg] Sandra Geovanna Other [facility] Other 06-24-2023 14:30-0400 Respiratory rate 18 /min Sandra Geovanna Other [facility] Other 06-24-2023 14:30-0400 SaO2% (BldA) [Mass fraction] 99 % Sandra Geovanna Other [facility] Other 06-24-2023 14:30-0400 Systolic blood pressure 110 mm[Hg] Sandra Austin Other [facility] Other 04-15-2023 09:25-0400 Body height 160.02 cm Ramonita Yari Other [facility] Other 04-15-2023 09:25-0400 Body mass index (BMI) [Ratio] 41.8 kg/m2 Ramonita Yari Other [facility] Other 04-15-2023 09:25-0400 Body temperature 98.5 [degF] Ramonita Yari Other [facility] Other 04-15-2023 09:25-0400 Body weight 107.05 kg Ramonita Yari Other [facility] Other 04-15-2023 09:25-0400 Respiratory rate 18 /min Ramonita Yari Other [facility] Other 04-15-2023 09:25-0400 SaO2% (BldA) [Mass fraction] 97 % Ramonita Greenberg Other [facility] Other 02-21-2023 14:45-0400 Body height 160.02 cm Sandra Austin Other [facility] Other 02-21-2023 14:45-0400 Body mass index (BMI) [Ratio] 41.39 kg/m2 Sandra Austin Other [facility] Other 02-21-2023 14:45-0400 Body weight 106.01 kg Sandra Austin Other [facility] Other 02-21-2023 14:45-0400 Diastolic blood pressure 60 mm[Hg] Sandra Austin Other [facility] Other 02-21-2023 14:45-0400 Respiratory rate 18 /min Sandra Austin Other [facility] Other 02-21-2023 14:45-0400 SaO2% (BldA) [Mass fraction] 98 % Sandra Austin Other [facility] Other 02-21-2023 14:45-0400 Systolic blood pressure 110 mm[Hg] Sandra Austin Other [facility] Other 12-24-2022 14:30-0500 Body height 160.02 cm Sandra Austin Other [facility] Other 12-24-2022 14:30-0500 Body mass index (BMI) [Ratio] 40.83 kg/m2 Sandra Geovanna Other [facility] Other 12-24-2022 14:30-0500 Body weight 104.55 kg Sandra Geovanna Other [facility] Other 12-24-2022 14:30-0500 Diastolic blood pressure 70 mm[Hg] Sandra Austin Other [facility] Other 12-24-2022 14:30-0500 Respiratory rate 18 /min Sandra Geovanna Other [facility] Other 12-24-2022 14:30-0500 SaO2% (BldA) [Mass fraction] 99 % Sandra Geovanna Other [facility] Other 12-24-2022 14:30-0500 Systolic blood pressure 118 mm[Hg] Sandra Geovanna Other [facility] Other 12-21-2021 16:30-0500 Body height 160.02 cm Sandra Geovanna Other [facility] Other 12-21-2021 16:30-0500 Body mass index (BMI) [Ratio] 38.58 kg/m2 Sandra Geovanna Other [facility] Other 12-21-2021 16:30-0500 Body temperature 97.3 [degF] Sandra Austin Other [facility] Other 12-21-2021 16:30-0500 Body weight 98.79 kg Sandra Austin Other [facility] Other 12-21-2021 16:30-0500 Diastolic blood pressure 60 mm[Hg] Sandra Geovanna Other [facility] Other 12-21-2021 16:30-0500 Respiratory rate 18 /min Sandra Geovanna Other [facility] Other 12-21-2021 16:30-0500 SaO2% (BldA) [Mass fraction] 99 % Asndra Geovanna Other [facility] Other 12-21-2021 16:30-0500 Systolic blood pressure 118 mm[Hg] Sandra Geovanna Other [facility] Other Encounters Encounter Date Encounter Type Care Provider Facility Start: 08-04-2024 End: 08-04-2024 Bamboo flowsheet Marylou CARBAJAL Work Phone: [facility] Start: 08-04-2024 End: 08-04-2024 Bamboo flowsheet Marylou CARBAJAL Work Phone: [facility] Start: 08-04-2024 End: 08-04-2024 ambulatory MARYLOU PRIEST Not Available Start: 08-04-2024 End: 08-04-2024 flow sheet Marylou CARBAJAL Work Phone: [facility] Comment on above: 32 weeks gestation o f ; Third trimester ; Anxiety, generalized (CMS/HCC) Start: 07-21-2024 End: 07-21-2024 ambulatory AGUS HANSA Not Available Start: 07-07-2024 End: 07-07-2024 ambulatory AGUS HANSA Not Available Start: 2024 End: 2024 ambulatory AGUS HANSA Not Available Start: 05-12-2024 End: 05-12-2024 ambulatory MARYLOU CEM Not Available Start: 04-16-2024 End: 04-16-2024 ambulatory AGUS HANSA Not Available Start: 03-17-2024 End: 03-17-2024 ambulatory AGUS HANSA Not Available Start: 02-14-2024 End: 02-14-2024 ambulatory MARYLOU PRIEST Not Available Start: 02-13-2024 End: 02-13-2024 ambulatory [facility] Work Phone: Start: 02-13-2024 End: 02-13-2024 Patient encounter procedure [facility] Work Phone: Start: 12-16-2023 Non-patient / Non-visit [facility] [employer] Work Phone: Start: 12-16-2023 End: 12-16-2023 ambulatory AGUS HANSA Not Available Start: 10-31-2023 End: 10-31-2023 ambulatory Sandra Austin Other [facility] Other Start: 10-31-2023 Office outpatient vi sit 25 minutes Sandra Austin [facility] [place] Start: 07-19-2023 End: 07-19-2023 ambulatory Sandra Austin Other [facility] Other Start: 07-19-2023 Telephone encounter Sandra Guevara [facility] [place] Start: 06-24-2023 End: 06-24-2023 ambulatory Sandra Austin Other [facility] Other Start: 06-24-2023 Office outpatient vi sit 25 minutes Sandra Austin [facility] [place] Start: 06-04-2023 End: 06-04-2023 ambulatory Sandra Austin Other [facility] Other Start: 06-04-2023 Telephone encounter Sandra Guevara [facility] Start: 04-15-2023 End: 04-15-2023 ambulatory Ramonita Greenberg Other [facility] Other Start: 04-15-2023 Office outpatient vi sit 15 minutes Ramonita Greenberg [facility] [place] Start: 04-11-2023 End: 04-11-2023 ambulatory Sandra Austin Other [facility] Other Start: 04-11-2023 Telephone encounter Sandra Guevara [facility] Start: 02-21-2023 Office outpatient vi sit 25 minutes Sandra Austin [facility] Start: 02-21-2023 End: 02-22-2023 ambulatory SANDRA AUSTIN [facility] Other Start: 01-04-2023 End: 01-04-2023 ambulatory Sandra Austin Other [facility] Other Start: 01-04-2023 Telephone encounter Sandra Guevara [facility] Start: 12-30-2022 Encounter for genera l adult medical examination without abnormal findings SANDRA AUSTIN [facility] Start: 12-27-2022 End: 12-27-2022 ambulatory Sandra Austin Other [facility] Other Start: 12-27-2022 Telephone encounter Sandra Guevara [facility] Start: 12-26-2022 End: 12-27-2022 ambulatory SANDRA AUSTIN Facility:H1 Start: 12-26-2022 End: 12-27-2022 Encounter for general adult medical examination without abnormal findings SANDRA AUSTIN Facility:H1 Start: 12-24-2022 End: 12-24-2022 ambulatory Sandra Austin Other [facility] Other Start: 12-24-2022 Encounter for genera l adult medical examination without abnormal findings Sandra Austin [facility] [place] Start: 12-24-2022 Periodic preventive med est patient 18-39 yrs Sandra Austin [facility] Start: 12-10-2022 End: 12-10-[address] AGUS JUÁREZ . Facility:[facility]1 Start: 09-12-2022 End: 10-11-[address] AGUS JUÁREZ . Facility:[facility]1 Start: 09-10-2022 End: 09-10-[address] AGUS JUÁREZ . Facility:[facility]1 Start: 09-05-2022 End: 09-08-2022 Evaluation and management of inpatient DR AGUS JUÁREZ . Facility:[facility]1 Start: 08-31-2022 End: 08-31-[address] AGUS JUÁREZ . Facility:[facility]1 Start: 08-30-2022 End: 08-31-2022 ambulatory SANDRA AUSTIN Facility:H1 Start: 08-24-2022 End: 08-24-2022 ambulatory SANDRA AUSTIN Facility:H1 Start: 08-21-2022 End: 08-22-2022 ambulatory SANDRA AUSTIN Facility:H1 Start: 08-17-2022 End: 08-17-2022 ambulatory VIRGINIA TORRES Facility:H1 Start: 08-15-2022 End: 08-15-[address] AGUS JUÁREZ . Facility:[facility]1 Start: 08-10-2022 End: 08-10-2022 ambulatory SANDRA AUSTIN Facility:H1 Start: 07-25-2022 End: 07-26-2022 ambulatory SANDRA AUSTIN Facility:H1 Start: 07-24-2022 End: 07-25-2022 ambulatory SANDRAVALERY AUSTIN Facility:H1 Start: 07-20-2022 End: 07-20-2022 ambulatory SANDRAJADIEL AUSTIN Facility:H1 Start: 06-27-2022 End: 06-28-2022 ambulatory SANDRA DEONNALE Facility:H1 Start: 06-20-2022 End: 06-21-2022 ambulatory SANDRAJADIEL AUSTIN Facility:H1 Start: 05-24-2022 End: 05-25-2022 ambulatory SANDRA KAPLE Facility:H1 Start: 04-26-2022 End: 04-27-2022 ambulatory SANDRA DEONNALE Facility:H1 Start: 04-17-2022 End: 04-17-2022 ambulatory SANDRA KAPLE Facility:H1 Start: 04-05-2022 End: 04-06-2022 ambulatory SANDRA AUSTIN Facility:H1 Start: 02-26-2022 End: 02-27-2022 ambulatory SANDRA AUSTIN Facility:[facility]1 Start: 12-21-2021 End: 12-21-2021 ambulatory Sandra Geovanna Other [facility] Other Start: 12-21-2021 Office outpatient ne w 45 minutes Sandra Austin [facility] [place] Procedures Date Procedure Procedure Detail Performing Clinician Start: 08-04-2024 Urnls dip stick/tabl et rgnt non-auto w/o micrscp Marylou CARBAJAL Work Phone: Start: 09-06-2022 Delivery of Products of Conception, External Approach SANDRA AUSTIN Start: 09-06-2022 Division of Female Perineum, External Approach SANDRA AUSTIN Start: 09-06-2022 Drainage [...] of Treatment Date Care Activity Detail Author Start: 12-17-2024 End: 12-17-2024 Patient encounter procedure 12/17/2024 8:30 AM EST Office Visit [facility] [address] [place] [id number] Agus Juárez, DO [address] [place] [address] [facility] Start: 08-18-2024 End: 08-18-2024 Patient encounter procedure 08/18/2024 1:30 PM EDT Routine [facility] [address] [place] [id number] Agus Juárez, DO [address] [place] [address] [facility] Start: 08-18-2024 End: 08-18-2024 Professional / ancillary services management 08/18/2024 1:00 PM EDT Ancillary Procedure [facility] [address] [address] [facility] Patient Education Low back pain in adults [facility] Work Phone: Immunizations Immunization Date Immunization Notes Care Provider Fa cility 09-08-2022 diphtheria, tetanus toxoids and pertussis vaccine Marylou CARBAJAL Work Phone: [facility] 09-12-2021 pneumococcal conjuga te vaccine, 13 valent Marylou CARBAJAL Work Phone: [facility] 08-14-1999 diphtheria, tetanus toxoids and acellular pertussis vaccine, unspecified formulation Marylou CARBAJAL Work Phone: [facility] 08-14-1999 haemophilus influenz ae type b vaccine, HbOC conjugate Marylou CARBAJAL Work Phone: [facility] 08-14-1999 measles, mumps and rubella virus vaccine Marylou CARBAJAL Work Phone: [facility] 08-14-1999 trivalent poliovirus vaccine, live, oral Marylou CARBAJAL Work Phone: [facility] 04-27-1998 diphtheria, tetanus toxoids and acellular pertussis vaccine, unspecified formulation Marylou CARBAJAL Work Phone: [facility] 04-27-1998 haemophilus influenz ae type b conjugate and Hepatitis B vaccine Marylou CARBAJAL Work Phone: [facility] 1997 diphtheria, tetanus toxoids and acellular pertussis vaccine, unspecified formulation Marylou CARBAJAL Work Phone: [facility] 1997 haemophilus influenz ae type b vaccine, HbOC conjugate Marylou CARBAJAL Work Phone: [facility] 1997 poliovirus vaccine, inactivated Marylou CARBAJAL Work Phone: [facility] 1997 diphtheria, tetanus toxoids and acellular pertussis vaccine, unspecified formulation Marylou CARBAJAL Work Phone: [facility] 1997 haemophilus influenz ae type b conjugate and Hepatitis B vaccine Marylou CARBAJAL Work Phone: [facility] 1997 poliovirus vaccine, inactivated Marylou CARBAJAL Work Phone: [facility] 1997 hepatitis B vaccine, pediatric or pediatric/adolescent dosage Marylou CARBAJAL Work Phone: [facility] Payers Date Payer Category Payer Unknown [employer] [id number] 2023-Present [address] [place] [address] [id number] 2023 Unknown [id number] 2.16.840.1.620587.19 1997 Unknown [id number] 2.16.840.1.188247.3.579.2. 593 1997 Unknown [id number] 2.16.840.1.356634.3.579.2. 593 1997 Unknown [id number] 2.16.840.1.239214.3.579.2. 593 1997 Unknown [id number] 2.16.840.1.734826.3.579.2. 593 1997 Unknown [id number] 2.16.840.1.965895.3.579.2. 593 1997 Unknown [id number] 2.16.840.1.979478.3.579.2. 593 1997 Unknown [id number] 2.16.840.1.396122.3.579.2. 593 1997 Unknown [id number] 2.16.840.1.673065.3.579.2. 593 1997 Unknown [id number] 2.16.840.1.399644.3.579.2. 593 1997 Unknown [id number] 2.16.840.1.536697.3.579.2. 593 1997 Unknown [id number] 2.16.840.1.484568.3.579.2. 593 1997 Unknown [id number] 2.16.840.1.566913.3.579.2. 593 1997 Unknown [id number] 2.16.840.1.009706.3.579.2. 593 1997 Unknown [id number] 2.16.840.1.186539.3.579.2. 593 1997 Unknown [id number] 2.16.840.1.161357.3.579.2. 593 1997 Unknown [id number] 2.16.840.1.867126.3.579.2. 593 1997 Unknown [id number] 2.16.840.1.230413.3.579.2. 593 1997 Unknown [id number] 2.16.840.1.269203.3.579.2. 593 1997 Unknown [id number] 2.16.840.1.596792.3.579.2. 593 1997 Unknown [id number] 2.16.840.1.269894.3.579.2. 593 1997 Unknown [id number] 2.16.840.1.450613.3.579.2. 593 1997 Unknown [id number] 2.16.840.1.514434.3.579.2. 593 1997 Unknown [id number] 2.16.840.1.046243.3.579.2. 593 1997 Unknown [id number] 2.16.840.1.638734.3.579.2. 1259 1997 Unknown [id number] 2.16.840.1.581118.3.579.2. 9 1997 Unknown [id number] 2.16.840.1.097960.3.579.2. 9 1997 Unknown [id number] 2.16.840.1.492340.3.579.2. 1258 1997 Unknown [id number] 2.16.840.1.920497.3.579.2. 1258 1997 Unknown [id number] 2.16.840.1.534863.3.579.2. 1258 1997 Unknown [id number] 2.16.840.1.660743.3.579.2. 1258 1997 Unknown [id number] 2.16.840.1.744577.3.579.2. 1258 1997 Unknown [id number] 2.16.840.1.027298.3.579.2. 9 1957 Medicaid [id number] 2.16.840.1.151236.19 1959 Private Health Insurance [id number] 2.16.840.1.429657.19 Self-pay Self Pay [id number] Unknown [place] [id number] Social History Date Type Detail Facility Start: 08-02-2023 End: 11-25-2023 Sex Assigned At [facility] Other Start: 1995 Sex Assigned At Female F [facility] Start: 08-02-20[address] [facility] Start: 08-02-2023 Tobacco use and exposure Smokeless tobacco non-user [facility] Start: 07-21-2024 End: 08-04-2024 Alcoholic beverage intake Ex-drinker (finding) [facility] Start: 08-02-2023 End: 11-25-2023 History of Social function [facility] Start: 01-03-2024 [facility] Start: 1995 Sex assigned at Not on file [facility] Clinical Notes 12-21-2021 to 08-04-2024 SOLOMON Turner - 08/04/2024 1:20 PM EDT Note Date & Type Note Facility 08-04-2024 History of Presen t illness Narrative Reason for Appointment: Patient ID: Zelda Forbes is a 29 y.o. female who presents for Routine Visit Patient presents today for Return OB appointment. MEDICATIONS Current Outpatient Medications Medication Instructions aspirin 81 mg, Oral, Daily cetirizine (ZYRTEC) 10 mg, Oral, Daily levothyroxine (SYNTHROID, LEVOXYL) 25 mcg, Oral, Daily before breakfast Natural Vitamin D-3 5,000 Units, Oral, Daily, as directed omeprazole (PRILOSEC) 20 mg, Oral, Daily before breakfast, Do not crush or chew. Liaartaa-Hzn-Fe-FA ( 1 + IRON PO) Oral ALLERGIES No Known Allergies PROBLEMS Active Ambulatory Problems Diagnosis Date Noted Pelvic and perineal pain 07/30/2023 PCOS (polycystic ovarian syndrome) 07/30/2023 Right ear pain 07/30/2023 Pre-diabetes 07/30/2023 Hypothyroid (CMS/HCC) 07/30/2023 Resolved Ambulatory Problems Diagnosis Date Noted No Resolved Ambulatory Problems Past Medical History: Diagnosis Date Acid reflux Acne Anxiety Birthmark Disease of thyroid gland (CMS/HCC) Elevated blood pressure reading Elevated TSH Hormone imbalance Hypothyroidism (CMS/HCC) Obesity Ovarian cyst, left HISTORY PAST MEDICAL HISTORY SOCIAL HISTORY Past Medical History: Diagnosis Date Acid reflux Acne Anxiety Birthmark Third Nipple Disease of thyroid gland (CMS/HCC) Elevated blood pressure reading Elevated TSH Hormone imbalance Hypothyroidism (CMS/HCC) Obesity Ovarian cyst, left PCOS (polycystic ovarian syndrome) Social History Tobacco Use Smoking status: Never Smokeless tobacco: Never Substance Use Topics Alcohol use: Not Currently Drug use: Never FAMILY HISTORY Family History Problem Relation Name Age of Onset Heart failure Mother Hypertension Father Arpit Diabetes type II Father Arpit Bipolar disorder Sister Trinity Seizures Sister Trinity Cancer Paternal Grandmother Jenna Mental illness Paternal Grandfather Arpit Cancer Paternal Grandfather Arpit Diabetes Paternal Grandfather Arpit SURGICAL HISTORY Past Surgical History: Procedure Laterality Date COLONOSCOPY 2019 WNL OTHER SURGICAL HISTORY 2005 r/o third nipple/ adrianna removed REVIEW OF SYSTEMS Review of Systems: Review of Systems Constitutional: Negative. HENT: Negative. Eyes: Negative. Respiratory: Negative. Cardiovascular: Negative. Gastrointestinal: Negative. Genitourinary: Negative. Musculoskeletal: Negative. Skin: Negative. Neurological: Negative. All other systems reviewed and are negative. Hematological: Negative. Endocrine: Negative. Allergic/Immunologic: Negative. OBJECTIVE Objective: Physical Exam Constitutional: Appearance: Normal appearance. She is normal weight. HENT: Head: Normocephalic. Cardiovascular: Rate and Rhythm: Normal rate. Pulses: Normal pulses. Pulmonary: Effort: Pulmonary effort is normal. Breath sounds: Normal breath sounds. Abdominal: Palpations: Abdomen is soft. Musculoskeletal: General: Normal range of motion. Neurological: General: No focal deficit present. Mental Status: She is alert and oriented to person, place, and time. Psychiatric: Mood and Affect: Mood normal. Behavior: Behavior normal. Thought Content: Thought content normal. Judgment: Judgment normal. Vitals and nursing note reviewed. Vitals: Estimated body mass index is 44.37 kg/m as calculated from the following: Height as of 08/02/23: 5' 3 . Weight as of this encounter: 250 lb 8 oz. BP: 128/78 Patient's last menstrual period was 12/20/2023. ASSESSMENT & PLAN ICD-10-CM 1. 32 weeks gestation of Z3A.32 POCT urinalysis dipstick manually resulted 2. Third trimester Z34.93 POCT urinalysis dipstick manually resulted Return OB: Patient presents today for a routine obstetrics appointment. Patient is currently 32w4d . Patient states she is doing well but has complaints of being tired due to current . Patient has verbalizes frequent movement. labor precautions was discussed/given and patient was instructed to perform kick counts three times a day. She is scheduled to start her NST/BPP soon. Patient would like to discuss medication for anxiety. She feels like it has been getting worse. She states she was on Zoloft previously but it made her feel zoned out. Orders Placed This Encounter Procedures POCT urinalysis dipstick manually resulted Follow Up: Patient is to return to office in 2 week for routine OB appointment. Documented by Gwen Vickers on behalf of: SOLOMON Turner documented in this encounter [facility] 10-31-2023 Evaluation note Encounter Date Diagnosis Assessment [...] E28.2) She will continue to follow with OB-DELIVERY ROOM SUPERVISOR and continue healthy lifestyle changes that she [...] course of antibiotic. Increase fluids and rest. Hpds-hwr-[id number] antipyretics as needed. Warning signs and symptoms reviewed with patient today. Patient to go immediately to the ER should she experience any of these. Patient to notify office should her symptoms persist and not improve. Patient verbalizes understanding and agrees to treatment plan. [facility] Other 09-22-2023 Evaluation note* Encounter Date Diagnosis Assessment Notes Treatment Notes Treatment Clinical Notes Jun, Vitamin D insufficiency (ICD-10 - E55.9) [facility] Other 08-28-2023 Evaluation note* Encounter Date Diagnosis Assessment Notes Treatment Notes Treatment Clinical Notes May, Prediabetes (ICD-10 - R73.03) Recent lab work reviewed with her from [place]. In office [id number] shows good control with diet and exercise. Will continue current treatment plan. Patient is advised to work on healthy diet choices and appropriate servings, weight control, regular exercise as directed, reduced fat intake, and salt avoidance. Patient voiced understanding of this and agrees to this plan. May, PCOS (polycystic ovarian syndrome) (ICD-10 - E28.2) She will continue to follow with OB-DELIVERY ROOM SUPERVISOR and continue healthy lifestyle changes that she [...] ENT today. Specialty notes reviewed as received. [facility] Other 08-08-2023 Evaluation note* Encounter Date Diagnosis Assessment Notes Treatment Notes Treatment Clinical Notes May, Other atopic dermatitis (ICD-10 - L20.89) May, Acute otitis externa of both ears, unspecified type (ICD-10 - H60.503) [facility] Other 06-19-2023 Evaluation note* Encounter Date Diagnosis [...] no improvement in 2 to 3 days [facility] Other 06-15-2023 Evaluation note* Encounter Date Diagnosis Assessment Notes Treatment Notes Treatment Clinical Notes Mar, Anxiety (ICD-10 - F41.9) [facility] Other 04-27-2023 Evaluation note* Encounter Date Diagnosis [...] plan on rechecking this at May appointment. [facility] Other 03-10-2023 Evaluation note* Encounter Date Diagnosis Assessment Notes Treatment Notes Treatment Clinical Notes Dec, Bacterial conjunctivitis (ICD-10 - H10.9) [facility] Other 03-02-2023 Evaluation note* Encounter Date Diagnosis Assessment Notes Treatment Notes Treatment Clinical Notes Dec, Vitamin D insufficiency (ICD-10 - E55.9) Dec, Elevated alkaline phosphatase level (ICD-10 - R74.8) Dec, Other specified hypothyroidism (ICD-10 - E03.8) [facility] Other 02-27-2023 Evaluation note* Encounter Date Diagnosis [...] ordered. Follow routinely with eye doctor, dentist, DELIVERY ROOM SUPERVISOR. Patient is advised to work on healthy diet choices and appropriate servings, weight control, regular exercise as directed, reduced fat intake, and salt avoidance. Patient voiced understanding of this and agrees to this plan. Nov, PCOS (polycystic ovarian syndrome) (ICD-10 - E28.2) Routine lab work ordered. She will continue to follow with OB-DELIVERY ROOM SUPERVISOR and continue healthy lifestyle changes that she [...] homicidal ideations. Started on Celexa by her DELIVERY ROOM SUPERVISOR. Very stable on Celexa 20 mg daily. [...] her ears still persist after starting this. [facility] Other 02-24-2022 Evaluation note* Encounter Date Diagnosis Assessment Notes Treatment Notes Treatment Clinical Notes Nov, Prediabetes (ICD-10 - R73.03) She was recently dx with prediabetes and was started on Metformin 500 mg BID 2 weeks ago by her OB-DELIVERY ROOM SUPERVISOR. She would like to follow with our [...] - E28.2) She is following with her OB-DELIVERY ROOM SUPERVISOR for her PCOS and is currently on Metformin 500 mg BID and is taking medication to help her get . She will continue to follow with OB-DELIVERY ROOM SUPERVISOR and continue healthy lifestyle changes that she [...] of fatigue, difficulty losing weight by her OB-DELIVERY ROOM SUPERVISOR. She would like to start following with [...] of this and agrees to this plan. [facility] Other Evaluation note* Diagnosis Onset Date Resolution Status 8 weeks gestation of acute Low back pain [facility] Work Phone: Evaluation note* Diagnosis 32 weeks gestation of Third trimester state, incidental Anxiety, generalized (CMS/HCC) documented [facility] - Reported* Type Description Date Medical History PCOS Medical History THYROID ISSUES Surgical History THIRD NIPPLE REMOVED Surgical History Colonoscopy-normal 2018 [facility] Other Summary Purpose Family History Relationship Condition [...] Name Geovanna Referring Provider Specialty Nurse Pract maria eugenia Referred Provider Specialty Ear, Nose an d Throat Referral Priority Routine Chief Complaint and Reason for Visit Chief Complaint lower back pain Reason for Visit 8 weeks gestation of Low back pain Additional Source Comments REASON FOR VISIT (unrecogniz ed section and content) Reason Comments Routine Visit INFORMATION SOURCE (unrecogn ized section and content) DATE CREATED AUTHOR 02/25/2023 [facility] DATE CREATED AUTHOR AUTHOR'S ESMER FLORES 08/06/2024 [facility] EPIC Care Teams (unrecognized [...] February 13, 2024 End: February 13, 2024 Assistant Professor Of Philosophy Relationship Specialty Start Date End Date Sandra Austin NP [address] [place] [address] PCP - General 07/19/23 Assistant Professor Of Philosophy Relationship Specialty Start Date End Date Sandra Austin NP [address] [facility] [place] [address] PCP - General 07/19/23 Goals (unrecognized section and content) Goals may [...] BE BASED ON THE PRIMARY CLINICAL RECORDS. [facility] [employer] provides no warranty or guarantee of the accuracy or completeness of information in this document.
--- NOTE | 2024-08-12 14:01 | US_ITS ---
[address] [address] Patient Name: SOFIA ZEPEDA MRN: [id number] date: 1995 Sex: F Assigned Patient Location: [facility] Current Patient Location: [facility] Accession/Order Number: [id number] Exam Date: 08/12/2024 14:03 Report Date: 08/12/2024 14:32 At the request of: AGUS SANTO Procedure: US OB BPP w non-stress EXAMINATION: US OB BPP w non-stress HISTORY: Abnormal TSH R79.89 COMPARISON: No relevant comparison available. TECHNIQUE: Ultrasound biophysical profile was performed in the radiology department. non-reactive stress testing was performed by nursing staff in the birthing center. FINDINGS: BREATHING MOVEMENTS: 2 GROSS BODY MOVEMENTS: 2 TONE: 2 QUALITATIVE AMNIOTIC FLUID VOLUME: 2 PRESENTATION: CEPHALIC HEART RATE: 126.17 bpm AMNIOTIC FLUID VOLUME: 12.4 cm GESTATIONAL AGE: 33 weeks 5 days US/US OB BPP w non-stress IMPRESSION: Total biophysical profile score: 8 Electronically authenticated by: MANUELITO GREGG Date: 08/12/2024 14:32
[2024-08-12 14:35] VITALS: BP 120/66; PULSE 71
== END 2024-08-12 14:58 | disposition home or self-care (01) ==
LOC: US 07:00 → FBC 13:54
PROVIDERS: PCP Nurse Practitioner Family; Visit Provider Obstetrics & Gynecology
DX: R79.89 Other specified abnormal findings of blood chemistry (principal); Z3A.33 33 weeks gestation of pregnancy
CPT/HCPCS: 76818

== ENCOUNTER 2024-08-15 07:24 | Outpatient (OUT) | payer OTHER, SELFPAY ==
--- OUTSIDE RECORDS SUMMARY | 2024-08-15 07:27 | XMS_ITS | CCD ---
Author Organization [facility] CliniSyia Care Team Providers Care Fire Investigation Manager Name Role Phone [facility] Unavailable KAP, SANDRA Primary Care Unavailable HANSA ., DR GOLDSMITH Attending Unavailable WEST, DR MANUELITO Foley Consulting Unavailable HANSA ., DR GOLDSMITH Admitting Unavailable HANSA ., DR GOLDSMITH Consulting Unavailable BRIAN, VIRGINIA Admitting Unavailable VIRGINIA TORRES Attending Unavailable KAP, SANDRA Primary Care Unavailable [place], DR MANUELITO Foley Consulting Unavailable HANSA ., [...] Unavailable HANSA ., DR GOLDSMITH Attending Unavailable [place], DR MANUELITO Foley Consulting Unavailable HANSA ., [...] Unavailable HANSA ., DR GOLDSMITH Attending Unavailable [place], DR MANUELITO Foley Consulting Unavailable HANSA ., [...] Attending Unavailable KAPLE, SANDRA Consulting Unavailable KAPLE, ASNDRA Primary Care Unavailable HANSA ., DR GOLDSMITH [...] LYK ., DR HU Consulting Unavailabl e [place], DR MANUELITO Foley Consulting Unavailable HANSA ., DR GOLDSMITH Consulting Unavailable SANDRA AUSTIN Primary Care Unavailable HANSA ., DR GOLDSMITH Attending Unavailable [place], DR MANUELITO Foley Consulting Unavailable HANSA ., DR GOLDSMITH Admitting Unavailable HANSA ., DR GOLDSMITH Consulting Unavailable Yari Ramonita Unavailable MARYLOU PRIEST Attending Unavailable HANSA, AGUS Attending Unavailable HANSA, AGUS Attending Unavailable HANSA, AGUS Attending Unavailable MARYLOU PRIEST Attending Unavailable HANSA, AGUS Attending Unavailable HANSA, AGUS Attending Unavailable HANSA, AGUS Attending Unavailable Geovanna SNAKE CHARMER, Sandra Hall Primary Care Provider Medications Current [...] 4; Qty: 30 Tablet; Provider: Geovanna Hall Start: 05-24-2023 take 1 tablet by tamica [...] hours February 13, 2024 12:00am polymyxin b 60818 unt/ml / trimethoprim 1 mg/ml ophthalmic solution (3 sources) Dihydrofolate Reductase Inhibitor Antibacterial, Polymyxin-class Antibacterial Start: 01-05-20 Polymyxin B-Trimethoprim 27306-6.1 UNIT/ML 1 drop into affected eye Ophthalmic every 3 hours up to six times daily for 7 days Dec, Active (10 sources) Active Tqrycbcm-Zaq-Wa-FA ( 1 + IRON PO) (3 sources) Xylxcllg-Czx-Wt-FA ( 1 + IRON PO) Take by [...] acid 7540 MG / polyethylene glycol 3350 44038 MG / potassium chloride 1200 MG / sodium ascorbate 41568 MG / sodium chloride 3200 MG Powder for Oral Solution) / 1 (polyethylene glycol 3350 452742 MG / potassium chloride 1000 MG / [...] UA Negative Negative - 4(70) +++ mg/dL [facility] Blood, UA Negative Negative - 50 Jose Manuel/mcL [facility] Clarity, UA Clear [facility], UA Yellow [facility] Glucose, UA Negative Negative - 1999(110) ++++ mg/dL [facility] Interpretation and review of laboratory results Abnormal [facility] Ketones, UA Negative Negative - 160(16) ++++ mg/dL [facility] Leukocytes, UA Trace Negative - 500+++ Alexys/mcL [facility] Nitrite, UA Negative Negative - Positive [facility] pH, UA 7.0 5 - 9 [facility] Protein, UA Negative Negative - 1999(20) ++++ mg/dL [facility] Spec Grav, UA 1.015 1 - 1.03 [facility] Urobilinogen, UA 0.2 0.2 - 12 mg/dL [facility] Human papilloma virus 16+18+ 31+33+35+39+45+51+52+56+58+59+66+68 DNA [Presence] in Anders 12-16-2023 HPV 16+18+31+33+35+39+45 +51+52+56+58+59+66+6 8 DNA Probe+sig amp Ql (Cvx) Note . [facility] Comment on above: TESTS RESULT FLAG UN ITS REF RANGE LAB DI AGNOSIS: 02 NEGATIVE FOR INTRAEPITHELIAL LESION OR MALIGNANCY.Specimen adequacy: 02 Satisfactory for evaluation. Endocervical and/or squamous metaplastic cells (endocervical component) are present.Performed by: 02 Raeann Duran, Milk Drier (ASCP). 02Note: Note 02 The Pap smear is a screening test designed to aid in the detection of premalignant and malignant conditions of the uterine cervix. It is not a diagnostic procedure and should not be used as the sole means of detecting cervical cancer. Both false-positive and false-negative reports do occur.Test Methodology: Note 02 The [employer] Composite Engineer was unable to read this specimen. Therefore a manual review was performed. ----- FLAG LEGEND: L-Low Normal,H-High Normal,LL-Alert Low,HH-Alert High <-Panic Low,>-Panic High,A-Abnormal,AA-Critical Abnormal ---Performed at:[address] [id number] Heavenly Serrano MD, . 02 The HPV DNA reflex criteria were not met with this specimen result therefore, no HPV testing was performed.The HPV DNA reflex criteria were not met with this specimenresult therefore, no HPV testing was performed.Performed at: =[facility] [id number] Director: Heavenly Serrano MD, Phone: [phone] at: [address] [id number] Director: Heavenly Serrano MD, Phone: [phone] No Panel Informationon 12-16 Reference Lab Test Patient Age Note . [facility] Comment on above: TESTS RESULT FLAG UN ITS REF RANGE LAB Clinician Provided Cytology Information Source.............Cervix No. of containers..01 ThinPrep VialAge Niruo DELORIS Leslye... FLAG LEGEND: L-Low Normal,H-High Normal,LL-Alert Low,HH-Alert High <-Panic Low,>-Panic High,A-Abnormal,AA-Critical Abnormal ---Performed at:01 =[facility] [id number] Heavenly Serrano MD, A1C HEMOGLOBINon 10-31-2023 HbA1c (Bld) [Mass fraction] 5.8 % [employer] Other HbA1c (Bld) [Mass fraction]o n 10-31-2023 A1C HEMOGLOBIN [employer] Other A1C HEMOGLOBINon 06-24-2023 HbA1c (Bld) [Mass fraction] 5.2 % [employer] Other HbA1c (Bld) [Mass fraction]o n 06-24-2023 A1C HEMOGLOBIN [employer] Other Quick Strepon 04-15-2023 S. pyogenes Org specific cx Ql (Throat) Positive [employer] Other Quick Strep [employer] Other FREE T4on 02-21-2023 Free T4 [Mass/Vol] 0.89 ng/dL Normal 0.76-1.46 [facility] Comment on above: Performed By: #### H H #### [facility] [address] [place] [id number] Bella Jerome PROF 14(COMP METB)on 023 Albumin [Mass/Vol] 3.7 g/dL Normal 3.4-5.0 [facility] Comment on above: Performed By: #### H H #### [facility] [address] [place] [address] Dr. Bella Jerome Albumin/Globulin [Mass ratio] 0.9 {ratio} Normal [facility] Comment on above: Performed By: #### H H #### [facility] [address] [place] [address] Dr. Bella Jerome ALP [Catalytic activity/Vol] 132 U/L Critically high 46-116 [facility] Comment on above: Performed By: #### H H #### [facility] [address] [place] [address] Dr. Bella Jerome ALT [Catalytic activity/Vol] 32 U/L Normal 14-59 [facility] Comment on above: Performed By: #### H H #### [facility] [address] [place] [address] Dr. Bella Jerome Anion gap [Moles/Vol] 12.8 mmol/L Normal [facility] Comment on above: Performed By: #### H H #### [facility] [address] [place] [address] Dr. Bella Jerome AST [Catalytic activity/Vol] 23 U/L Normal 15-37 [facility] Comment on above: Performed By: #### H H #### [facility] [address] [place] [address] Dr. Bella Jerome Bilirubin [Mass/Vol] 0.6 mg/dL Normal 0.2-1.0 [facility] Comment on above: Performed By: #### H H #### [facility] [address] [place] [address] Dr. Bella Jerome Calcium [Mass/Vol] 9.0 mg/dL Normal 8.5-10.1 [facility] Comment on above: Performed By: #### H H #### [facility] [address] [place] [address] Dr. Bella Jerome Chloride [Moles/Vol] 102 mmol/L Normal 98-107 [facility] Comment on above: Performed By: #### H H #### [facility] [address] [place] [address] Dr. Bella Jerome CO2 [Moles/Vol] 28.2 mmol/L Normal 21.0-32.0 [facility] Comment on above: Performed By: #### H H #### [facility] [address] [place] [address] Dr. Bella Jerome Creatinine [Mass/Vol] 0.67 mg/dL Normal 0.55-1.02 [facility] Comment on above: Performed By: #### H H #### [facility] [address] [place] [address] Dr. Bella Jerome EGFR-AF CITIZEN [place] >60 Normal >=60 [facility] Comment on above: Performed By: #### H H #### [facility] [address] [place] [address] Dr. Bella Jerome EGFR-NON AF CITIZEN [place] >60 Normal >=60 [facility] Comment on above: Performed By: #### H H #### [facility] [address] [place] [address] Dr. Bella Jerome Globulin (S) [Mass/Vol] 4.2 g/dL Normal [facility] Comment on above: Performed By: #### H H #### [facility] [address] [place] [address] Dr. Bella Jerome Glucose [Mass/Vol] 88 mg/dL Normal 74-106 [facility] Comment on above: Performed By: #### H H #### [facility] [address] [place] [address] Dr. Bella Jerome Potassium [Moles/Vol] 4.0 mmol/L Normal 3.5-5.1 [facility] Comment on above: Performed By: #### H H #### [facility] [address] [place] [address] Dr. Bella Jerome Protein [Mass/Vol] 7.9 g/dL Normal 6.4-8.2 [facility] Comment on above: Performed By: #### H H #### [facility] [address] [place] [address] Dr. Bella Jerome Sodium [Moles/Vol] 139 mmol/L Normal 136-145 [facility] Comment on above: Performed By: #### H H #### [facility] [address] [place] [address] Dr. Bella Jerome Urea nitrogen [Mass/Vol] 12.0 mg/dL Normal 7.0-18.0 [facility] Comment on above: Performed By: #### H H #### [facility] [address] [place] [address] Dr. Bella Jerome Urea nitrogen/Creatinine [Mass ratio] 17.9 mg/mg Normal [facility] Comment on above: Performed By: #### H H #### [facility] [address] [place] [address] Dr. Bella Jerome TSHon 02-21-2023 TSH 2.463 uIU/mL Normal 0.358-3.740 [facility] Comment on above: Performed By: #### H H #### [facility] [address] [place] [address] Dr. Bella Jerome VITAMIN D 25 OHon 02-21-2023 VIT D 25-OH 23.1 ng/mL Normal [facility] Comment on above: Performed By: #### H H #### [facility] [address] [place] [address] Dr. Bella Jerome VIT D RANGES SEE BELOW Normal [facility] Comment on above: Result Comment: <20 ng/mL Vit D deficient 20 - <30 ng/mL Vit D insufficient 30 - 100 ng/mL Vit D sufficient >100 ng/mL Potential Toxicity Performed By: #### H H #### [facility] [address] [place] [address] Dr. Bella Jerome CBC AUTO DIFFon 12-26-2022 BASO # 0.0 103/ul Normal 0.0-0.1 [facility] Comment on above: Performed By: #### C BC #### [facility] [address] [place] [address] Dr. Bella Jerome Basophils/100 WBC (Bld) 0.3 % Normal 0.2-2.0 [facility] Comment on above: Performed By: #### C BC #### [facility] [address] [place] [address] Dr. Bella Jerome EO # 0.1 103/ul Normal 0.0-0.7 [facility] Comment on above: Performed By: #### C BC #### [facility] [address] [place] [address] Dr. Bella Jerome Eosinophils/100 WBC (Bld) 1.6 % Normal 0.9-7.0 [facility] Comment on above: Performed By: #### C BC #### [facility] [address] [place] [address] Dr. Bella Jerome Erythrocyte distribution width (RBC) [Ratio] 12.7 % Normal 11.0-15.0 [facility] Comment on above: Performed By: #### C BC #### [facility] [address] [place] [address] Dr. Bella Jerome Hematocrit (Bld) [Volume fraction] 37.2 % Normal 36.0-48.0 [facility] Comment on above: Performed By: #### C BC #### [facility] [address] [place] [address] Dr. Bella Jerome Hemoglobin (Bld) [Mass/Vol] 12.5 g/dL Normal 12.0-16.0 [facility] Comment on above: Performed By: #### C BC #### [facility] [address] [place] [address] Dr. Bella Jerome IG # 0.02 10e3/ul Normal 0.00-0.03 [facility] Comment on above: Performed By: #### C BC #### [facility] [address] [place] [address] Dr. Bella Jerome IG % 0.3 % Normal 0.0-0.5 [facility] Comment on above: Performed By: #### C BC #### [facility] [address] [place] [address] Dr. Bella Jerome LYMPH # 2.3 103/ul Normal 1.2-3.8 [facility] Comment on above: Performed By: #### C BC #### [facility] [address] [place] [address] Dr. Bella Jerome Lymphocytes/100 WBC (Bld) 34.1 % Normal 20.5-60.0 [facility] Comment on above: Performed By: #### C BC #### [facility] [address] [place] [address] Dr. Bella Jerome MANUAL DIFF REQ NO Normal [facility] Comment on above: Performed By: #### C BC #### [facility] [address] [place] [address] Dr. Bella Jerome MCH (RBC) [Entitic mass] 30.9 pg Normal 26.7-34.0 [facility] Comment on above: Performed By: #### C BC #### [facility] [address] [place] [address] Dr. Bella Jerome MCHC (RBC) [Mass/Vol] 33.6 g/dL Normal 29.9-35.2 [facility] Comment on above: Performed By: #### C BC #### [facility] [address] [place] [address] Dr. Bella Jerome MCV (RBC) [Entitic vol] 91.9 fL Normal 81.0-99.0 [facility] Comment on above: Performed By: #### C BC #### [facility] [address] [place] [address] Dr. Bella Jerome MONO # 0.4 103/ul Normal 0.3-0.8 [facility] Comment on above: Performed By: #### C BC #### [facility] [address] [place] [address] Dr. Bella Jerome Monocytes/100 WBC (Bld) 5.1 % Normal 1.7-12.0 [facility] Comment on above: Performed By: #### C BC #### [facility] [address] [place] [address] Dr. Bella Jerome NEUT # 4.0 103/ul Normal 1.4-6.5 [facility] Comment on above: Performed By: #### C BC #### [facility] [address] [place] [address] Dr. Bella Jerome Neutrophils/100 WBC (Bld) 58.6 % Normal 43.0-75.0 [facility] Comment on above: Performed By: #### C BC #### [facility] [address] [address] [address] Bella Jerome Platelet mean volume (Bld) [Entitic vol] 11.5 fL Normal 9.5-13.5 [facility] Comment on above: Performed By: #### C BC #### [facility] [address] [address] [address] Bella Jerome PLT 243 103/ul Normal 150-450 [facility] Comment on above: Performed By: #### C BC #### [facility] [address] [address] [address] Bella Jerome RBC 4.05 106/ul Critically low 4.20-5.40 [facility] Comment on above: Performed By: #### C BC #### [facility] [address] [address] [address] Bella Jerome WBC 6.8 103/ul Normal 4.0-11.0 [facility] Comment on above: Performed By: #### C BC #### [facility] [address] [address] [address] Bella Jerome FREE T4on 12-26-2022 Free T4 [Mass/Vol] 1.05 ng/dL Normal 0.76-1.46 [facility] Comment on above: Performed By: #### F T4, VITAD, B12FOL, IRON ####[facility] [id number] [id number] Bella Jerome GLYCOHEMOGLOBIN A1Con 2022 ADA RECOMMENDATION SEE BELOW Normal [facility] Comment on above: Result Comment: ADA RECOMMENDED LIMIT 4.0 - 6.0 ADA THERAPEUTIC TARGET < 7.0 ACTION SUGGESTED > 7.0 Performed By: #### A 1C #### [facility] [address] [address] [address] Bella Jerome Glucose [Mass/Vol] 103 mg/dL Normal [facility] Comment on above: Performed By: #### A 1C #### [facility] [address] [address] [address] Bella Jerome HbA1c (Bld) [Mass fraction] 5.2 % Normal 4.5-6.2 [facility] Comment on above: Performed By: #### A 1C #### [facility] [address] [address] [address] Bella Jerome IRONon 12-26-2022 Iron [Mass/Vol] 74.0 ug/dL Normal 50.0-170.0 [facility] Comment on above: Performed By: #### F T4, VITAD, B12FOL, IRON ####[facility] [id number] [place], [place] [id number]. Bella Jerome LIPID PROFILEon 12-26-2022 CHOL-HDL RATIO NORM SEE BELOW Normal [facility] Comment on above: Result Comment: 3.3 - 4.4 LOW RISK 4.4 - 7.1 AVERAGE RISK 7.1 - 11.0 MODERATE RISK >11.0 HIGH RISK Performed By: #### C MP, TSH, LIPID #### [facility] [address] [address] [address] Bella Jerome Cholesterol [Mass/Vol] 153 mg/dL Normal <=200 [facility] Comment on above: Performed By: #### C MP, TSH, LIPID #### [facility] [address] [address] [address] Bella Jerome Cholesterol in HDL [Mass/Vol] 67 mg/dL Critically high 40-60 [facility] Comment on above: Performed By: #### C MP, TSH, LIPID #### [facility] [address] [address] [address] Bella Jerome Cholesterol in LDL [Mass/Vol] 77.2 mg/dL Normal [facility] Comment on above: Performed By: #### C MP, TSH, LIPID #### [facility] [address] [address] [address] Bella Jerome Cholesterol.total/Ch olesterol in HDL [Mass ratio] 2.3 {ratio} Normal [facility] Comment on above: Performed By: #### C MP, TSH, LIPID #### [facility] [address] [address] [address] Bella Jerome HDL NORMAL > or = 60 mg/dl - LOW CARDIOVASCULAR RISK <40 mg/dl - HIGH CARDIOVASCULAR RISK Normal [facility] Comment on above: Performed By: #### C MP, TSH, LIPID #### [facility] [address] [address] [address] Bella Jerome LDL CALC NORMAL SEE BELOW Normal [facility] Comment on above: Result Comment: <100 mg/dl OPTIMAL 100 - 129 mg/dl NEAR OR ABOVE OPTIMAL 130 - 159 mg/dl BORDERLINE HIGH 160 - 189 mg/dl HIGH >190 mg/dl VERY HIGH Performed By: #### C MP, TSH, LIPID #### [facility] [address] [address] [address] Bella Jerome Triglyceride [Mass/Vol] 44 mg/dL Normal <=150 [facility] Comment on above: Performed By: #### C MP, TSH, LIPID #### [facility] [address] [address] [address] Bella Jerome VLDL CALC 8.8 mg/dL Normal [facility] Comment on above: Performed By: #### C MP, TSH, LIPID #### [facility] [address] [address] [address] Bella Jerome MICROALB CREAT RATIO RANDOMo n 12-26-2022 mALB 2.3 mg/L Normal <=30.0 [facility] Comment on above: Performed By: #### H H #### [facility] [address] [address] [address] Bella Jerome MALB CR RATIO 17.4 mg/g Normal 0.0-29.9 [facility] Comment on above: Performed By: #### H H #### [facility] [address] [address] [address] Bella Jerome MALB CR RATIO RANGE SEE BELOW Normal [facility] Comment on above: Result Comment: NO M ICROALBUMINURIA 0-29 MG/G CLINICAL MICROALBUMINURIA 30-300 MG/G MACROALBUMINURIA >300 MG/G Performed By: #### H H #### [facility] [address] [address] [address] Bella Jerome URINE CREAT 131.90 mg/dL Normal 20.00-300.00 [facility] Comment on above: Performed By: #### H H #### [facility] [address] [address] [address] Bella Jerome PROF 14(COMP METB)on 023 Albumin [Mass/Vol] 4.1 g/dL Normal 3.4-5.0 [facility] Comment on above: Performed By: #### C MP, TSH, LIPID #### [facility] [address] [address] [address] Bella Jerome Albumin/Globulin [Mass ratio] 1.3 {ratio} Normal [facility] Comment on above: Performed By: #### C MP, TSH, LIPID #### [facility] [address] [place] [address] Dr. Bella Jerome ALP [Catalytic activity/Vol] 124 U/L Critically high 46-116 [facility] Comment on above: Performed By: #### C MP, TSH, LIPID #### [facility] [address] [address] [address] Bella Jerome ALT [Catalytic activity/Vol] 16 U/L Normal 14-59 [facility] Comment on above: Performed By: #### C MP, TSH, LIPID #### [facility] [address] [address] [address] Bella Jerome Anion gap [Moles/Vol] 13.4 mmol/L Normal [facility] Comment on above: Performed By: #### C MP, TSH, LIPID #### [facility] [address] [address] [address] Bella Jerome AST [Catalytic activity/Vol] 17 U/L Normal 15-37 [facility] Comment on above: Performed By: #### C MP, TSH, LIPID #### [facility] [address] [address] [address] Bella Jerome Bilirubin [Mass/Vol] 0.8 mg/dL Normal 0.2-1.0 [facility] Comment on above: Performed By: #### C MP, TSH, LIPID #### [facility] [address] [address] [address] Bella Jerome Calcium [Mass/Vol] 8.9 mg/dL Normal 8.5-10.1 [facility] Comment on above: Performed By: #### C MP, TSH, LIPID #### [facility] [address] [address] [address] Bella Jerome Chloride [Moles/Vol] 103 mmol/L Normal 98-107 [facility] Comment on above: Performed By: #### C MP, TSH, LIPID #### [facility] [address] [address] [address] Bella Jerome CO2 [Moles/Vol] 25.6 mmol/L Normal 21.0-32.0 [facility] Comment on above: Performed By: #### C MP, TSH, LIPID #### [facility] [address] [address] [address] Bella Jerome Creatinine [Mass/Vol] 0.55 mg/dL Normal 0.55-1.02 [facility] Comment on above: Performed By: #### C MP, TSH, LIPID #### [facility] [address] [place] [address] Dr. Bella Jerome EGFR-AF CITIZ[place] >60 Normal >=60 [facility] Comment on above: Performed By: #### C MP, TSH, LIPID #### [facility] [address] [address] [address] Bella Jerome EGFR-NON AF CITIZEN OF [place] >60 Normal >=60 [facility] Comment on above: Performed By: #### C MP, TSH, LIPID #### [facility] [address] [address] [address] Bella Jerome Globulin (S) [Mass/Vol] 3.1 g/dL Normal [facility] Comment on above: Performed By: #### C MP, TSH, LIPID #### [facility] [address] [place] [address] Dr. Bella Jerome Glucose [Mass/Vol] 82 mg/dL Normal 74-106 [facility] Comment on above: Performed By: #### C MP, TSH, LIPID #### [facility] [address] [place] [address] Dr. Bella Jerome Potassium [Moles/Vol] 4.0 mmol/L Normal 3.5-5.1 [facility] Comment on above: Performed By: #### C MP, TSH, LIPID #### [facility] [address] [place] [address] Dr. Bella Jerome Protein [Mass/Vol] 7.2 g/dL Normal 6.4-8.2 [facility] Comment on above: Performed By: #### C MP, TSH, LIPID #### [facility] [address] [place] [address] Dr. Bella Jerome Sodium [Moles/Vol] 138 mmol/L Normal 136-145 [facility] Comment on above: Performed By: #### C MP, TSH, LIPID #### [facility] [address] [place] [address] Dr. Bella Jerome Urea nitrogen [Mass/Vol] 14.0 mg/dL Normal 7.0-18.0 [facility] Comment on above: Performed By: #### C MP, TSH, LIPID #### [facility] [address] [place] [address] Dr. Bella Jerome Urea nitrogen/Creatinine [Mass ratio] 25.5 mg/mg Normal [facility] Comment on above: Performed By: #### C MP, TSH, LIPID #### [facility] [address] [place] [address] Dr. Bella Jerome TSHon 12-26-2022 TSH 0.224 uIU/mL Critically low 0.358-3.740 [facility] Comment on above: Performed By: #### C MP, TSH, LIPID #### [facility] [address] [place] [address] Dr. Bella Jerome VIT B12 AND FOLATEon 023 Cobalamin (Vitamin B12) [Mass/Vol] 702.0 pg/mL Normal 193.0-986.0 [facility] Comment on above: Performed By: #### F T4, VITAD, B12FOL, IRON ####[facility] [address] [place] [id number] Jerome FOLATE 25.10 ng/mL Normal 8.60-58.90 [facility] Comment on above: Performed By: #### F T4, VITAD, B12FOL, IRON ####[facility] [address] [place] [id number] Jerome VITAMIN D 25 OHon 12-26-2022 VIT D 25-OH 25.4 ng/mL Normal [facility] Comment on above: Performed By: #### F T4, VITAD, B12FOL, IRON ####[facility] [address] [place] [address]DrWill Jerome VIT D RANGES SEE BELOW [facility] Comment on above: Result Comment: <20 ng/mL Vit D deficient 20 - <30 ng/mL Vit D insufficient 30 - 100 ng/mL Vit D sufficient >100 ng/mL Potential Toxicity Performed By: #### F T4, VITAD, B12FOL, IRON ####[facility] [address] [place] [address]DrWill Jerome PAP ACOG PANEL 2: 23 to 31on 12-18-2022 . . Normal [facility] Comment on above: Performed By: #### C BC #### [facility] [address] [place] [address] Dr. Bella Jerome Age Gdln ACOG Testing - Normal [facility] Comment on above: Performed By: #### C BC #### [facility] [address] [place] [address] Dr. Bella Jerome DIAGNOSIS: Comment Normal [facility] Comment on above: Result Comment: NEGA TIVE FOR INTRAEPITHELIAL LESION OR MALIGNANCY. Performed By: #### C BC #### [facility] [address] [place] [address] Dr. Bella Jerome Methodology: Comment Normal [facility] Comment on above: Result Comment: This liquid based ThinPrep(R) pap test was screened with the use of an image guided system. Performed By: #### C BC #### [facility] [address] [address] [address] Bella Jerome Note: Comment Normal [facility] Comment on above: Result Comment: The Pap smear is a screening test designed to aid in the detection of premalignant and malignant conditions of the uterine cervix. It is not a diagnostic procedure and should not be used as the sole means of detecting cervical cancer. Both false-positive and false-negative reports do occur. . Performed By: #### C BC #### [facility] [address] [address] [address] Bella Jerome Performed by: Comment Normal [facility] Comment on above: Result Comment: Byron Irby, Milk Drier (ASCP) Performed By: #### C BC #### [facility] [address] [place] [address] Dr. Bella Jerome Reflex Criteria: Comment Normal [facility] Comment on above: Result Comment: The HPV DNA reflex criteria were not met with this specimen result therefore, no HPV testing was performed. . Performed By: #### C BC #### [facility] [address] [place] [address] Dr. Bella Jerome Specimen adequacy: Comment Normal [facility] Comment on above: Result Comment: Sati sfactory for evaluation. Endocervical and/or squamous metaplastic cells (endocervical component) are present. Performed By: #### C BC #### [facility] [address] [place] [address] Dr. Bella Jerome CBC W MANUAL DIFFon 09-07-20 22 ATYPICAL LYMPH # Normal [facility] Comment on above: Performed By: #### C BCMAN ####[facility] [address] [place] [address]Dr. Bella Jerome ATYPICAL LYMPH % Normal [facility] Comment on above: Performed By: #### C BCMAN ####[facility] [address] [place] [address]Dr. Bella Jerome BAND # 0.2 103/ul Normal 0.0-0.3 [facility] Comment on above: Performed By: #### C BCMAN ####[facility] [address] [place] [address]Dr. Bella Jerome BAND % 1 % Normal 0-5 [facility] Comment on above: Performed By: #### C BCMAN ####[facility] [address] [place] [address]Dr. Bella Jerome BASOM # 0.00 103/ul Normal 0.00-0.10 [facility] Comment on above: Performed By: #### C BCMAN ####[facility] [address] [place] [address]Dr. Bella Jerome BASOM % 0.0 % Critically low 0.2-2.0 [facility] Comment on above: Performed By: #### C BCMAN ####[facility] [address] [place], [place] [address]Dr. Bella Jerome BLAST # Normal [facility] Comment on above: Performed By: #### C BCRELL ####[facility] [address] [place], [place] [address]Dr. Yiwally Jerome BLAST % Normal [facility] Comment on above: Performed By: #### C BCRELL ####[facility] [address] [place], [place] [address]Dr. Bella Jerome CORRECTED WBC Normal 4.0-11.0 [facility] Comment on above: Performed By: #### C BCRELL ####[facility] [address] [place], [place] [address]Dr. Bella Jerome EOS # 0.00 103/ul Normal 0.00-0.70 [facility] Comment on above: Performed By: #### C BCRELL ####[facility] [address] [place] [address]Dr. Bella Jerome EOS% 0.0 % Critically low 0.9-7.0 [facility] Comment on above: Performed By: #### C BCMAN ####[facility] [address] [place] [address]Dr. Bella Jerome HCT 30.5 % Critically low 36.0-48.0 [facility] Comment on above: Performed By: #### C BCMAN ####[facility] [address] [place], [place] [address]Kr. Bella Jerome HGB 10.5 g/dl Critically low 12.0-16.0 [facility] Comment on above: Performed By: #### C PEDRO ####[facility] [address] [place], [place] [address]He. Bella Jerome LYMPHM # 2.78 103/ul Normal 1.20-3.80 [facility] Comment on above: Performed By: #### C PEDRO ####[facility] [address] [place], [place] [address]Xr. Bella Jerome LYMPHM% 13.0 % Critically low 20.5-60.0 [facility] Comment on above: Performed By: #### C PEDRO ####[facility] [address] [place], [place] [address]Vq. Bella Jerome MCH 32.8 pg Normal 26.7-34.0 [facility] Comment on above: Performed By: #### Jennifer VASQUEZ ####[facility] [address] [place] [id number]. Bella Jerome MCHC 34.4 g/dl Normal 29.9-35.2 [facility] Comment on above: Performed By: #### C PEDRO ####[facility] [address] [place], [place] [address]Pl. Bella Jerome MCV 95.3 fL Normal 81.0-99.0 [facility] Comment on above: Performed By: #### Jennifer VASQUEZ ####[facility] [address] [place], [place] [address]Yk. Bella Jerome METAMYELOCYTE # Normal [facility] Comment on above: Performed By: #### C PEDRO ####[facility] [address] [place], [place] [address]Hj. Bella Jerome METAMYELOCYTE % Normal [facility] Comment on above: Performed By: #### Jennifer VASQUEZ ####[facility] [address] [place] [id number]. Bella Jerome MONOM# 2.35 103/ul Critically high 0.30-0.80 [facility] Comment on above: Performed By: #### C PEDRO ####[facility] [address] [place] [address]Dr. Bella Justus MONOM% 11.0 % Normal 1.7-12.0 [facility] Comment on above: Performed By: #### C PEDRO ####[facility] [address] [place] [address]Dr. Bella Justus MPV 11.1 fL Normal 9.5-13.5 [facility] Comment on above: Performed By: #### C PEDRO ####[facility] [address] [place] [address]Dr. Bella Justus MYELOCYTE # Normal [facility] Comment on above: Performed By: #### C PEDRO ####[facility] [address] [place] [id number]. Bella Jerome MYELOCYTE % Normal [facility] Comment on above: Performed By: #### C PEDRO ####[facility] [address] [place] [id number]. Bella Justus NRBC Normal [facility] Comment on above: Performed By: #### C PEDRO ####[facility] [address] [place] [address]Dr. Liwally Justus PLT 227 103/ul Normal 150-450 [facility] Comment on above: Performed By: #### C PEDRO ####[facility] [address] [place] [address]Dr. Bella Jerome RBC 3.20 106/ul Critically low 4.20-5.40 [facility] Comment on above: Performed By: #### C PEDRO ####[facility] [address] [place], [place] [address]Dr. Liwally Justus RDW 12.8 % Normal 11.0-15.0 [facility] Comment on above: Performed By: #### C PEDRO ####[facility] [address] [place], [place] [address]Dr. Bella Jerome SEG # 16.05 103/ul Critically high 1.40-6.50 [facility] Comment on above: Performed By: #### C BCMAN ####[facility] [address] [place] [address]Dr. Bella Jerome SEG % 75.0 % Normal 43.0-75.0 [facility] Comment on above: Performed By: #### C BCMAN ####[facility] [address] [place] [address]Dr. Bella Jerome WBC 21.4 103/ul Critically high 4.0-11.0 [facility] Comment on above: Performed By: #### C BCMAN ####[facility] [address] [place] [address]Dr. Bella Jerome CBC AUTO DIFFon 09-05-2022 BASO # 0.0 103/ul Normal 0.0-0.1 [facility] Comment on above: Performed By: #### C BC #### [facility] [address] [place] [address] Dr. Bella Jerome Basophils/100 WBC (Bld) 0.2 % Normal 0.2-2.0 [facility] Comment on above: Performed By: #### C BC #### [facility] [address] [place] [address] Dr. Bella Jerome EO # 0.1 103/ul Normal 0.0-0.7 [facility] Comment on above: Performed By: #### C BC #### [facility] [address] [place] [address] Dr. Bella Jerome Eosinophils/100 WBC (Bld) 0.6 % Critically low 0.9-7.0 [facility] Comment on above: Performed By: #### C BC #### [facility] [address] [place] [address] Dr. Bella Jerome Erythrocyte distribution width (RBC) [Ratio] 12.6 % Normal 11.0-15.0 [facility] Comment on above: Performed By: #### C BC #### [facility] [address] [place] [address] Dr. Bella Jerome Hematocrit (Bld) [Volume fraction] 32.5 % Critically low 36.0-48.0 [facility] Comment on above: Performed By: #### C BC #### [facility] [address] [place] [address] Dr. Bella Jerome Hemoglobin (Bld) [Mass/Vol] 11.1 g/dL Critically low 12.0-16.0 [facility] Comment on above: Performed By: #### C BC #### [facility] [address] [address] [address] Bella Jerome IG # 0.14 10e3/ul Critically high 0.00-0.03 [facility] Comment on above: Performed By: #### C BC #### [facility] [address] [place] [address] Dr. Bella Jerome IG % 1.1 % Critically high 0.0-0.5 [facility] Comment on above: Performed By: #### C BC #### [facility] [address] [place] [address] Dr. Bella Jerome LYMPH # 2.6 103/ul Normal 1.2-3.8 [facility] Comment on above: Performed By: #### C BC #### [facility] [address] [place] [address] Dr. Bella Jerome Lymphocytes/100 WBC (Bld) 20.2 % Critically low 20.5-60.0 [facility] Comment on above: Performed By: #### C BC #### [facility] [address] [place] [address] Dr. Bella Jerome MANUAL DIFF REQ NO Normal [facility] Comment on above: Performed By: #### C BC #### [facility] [address] [address] [address] Bella Jerome MCH (RBC) [Entitic mass] 32.2 pg Normal 26.7-34.0 [facility] Comment on above: Performed By: #### C BC #### [facility] [address] [place] [address] Dr. Bella Jerome MCHC (RBC) [Mass/Vol] 34.2 g/dL Normal 29.9-35.2 [facility] Comment on above: Performed By: #### C BC #### [facility] [address] [place] [address] Dr. Bella Jerome MCV (RBC) [Entitic vol] 94.2 fL Normal 81.0-99.0 [facility] Comment on above: Performed By: #### C BC #### [facility] [address] [place] [address] Dr. Bella Jerome MONO # 0.9 103/ul Critically high 0.3-0.8 [facility] Comment on above: Performed By: #### C BC #### [facility] [address] [place] [address] Dr. Bella Jerome Monocytes/100 WBC (Bld) 7.1 % Normal 1.7-12.0 [facility] Comment on above: Performed By: #### C BC #### [facility] [address] [place] [address] Dr. Bella Jerome NEUT # 8.9 103/ul Critically high 1.4-6.5 [facility] Comment on above: Performed By: #### C BC #### [facility] [address] [place] [address] Dr. Bella Jerome Neutrophils/100 WBC (Bld) 70.8 % Normal 43.0-75.0 [facility] Comment on above: Performed By: #### C BC #### [facility] [address] [place] [address] Dr. Bella Jerome Platelet mean volume (Bld) [Entitic vol] 11.0 fL Normal 9.5-13.5 [facility] Comment on above: Performed By: #### C BC #### [facility] [address] [place] [address] Dr. Bella Jerome PLT 234 103/ul Normal 150-450 [facility] Comment on above: Performed By: #### C BC #### [facility] [address] [place] [address] Dr. Bella Jerome RBC 3.45 106/ul Critically low 4.20-5.40 [facility] Comment on above: Performed By: #### C BC #### [facility] [address] [place], [place] [address] Dr. Bella Jerome WBC 12.6 103/ul Critically high 4.0-11.0 [facility] Comment on above: Performed By: #### C BC #### [facility] [address] [place], [place] [address] Dr. Bella Jerome Covid-19 PCR ([facility])on SARS-CoV-2 (COVID-19) RNA FAVIAN+probe Ql (Unsp spec) Not detected Normal NOT DETECTED [facility] Comment on above: Result Comment: When [...] for this test is supported by the [place] of Health and Human Service's declaration that [...] be used). Performed By: #### C VDTBH ####[facility] [address] [place], [place] [address]Sf. Bella Jerome DRUG SCREEN RAPID (URINE)on 09-05-2022 AMP Negative Normal NEGATIVE [facility] Comment on above: Performed By: #### D RUGRPD ####[facility] [address] [place] [id number]. Bella Jerome BAR Negative Normal NEGATIVE [facility] Comment on above: Performed By: #### D RUGRPD ####[facility] [address] [place] [id number] Jerome BUP Negative Normal NEGATIVE [facility] Comment on above: Performed By: #### D RUGRPD ####[facility] [address] [place] [id number]. Bella Jerome BZO Negative Normal NEGATIVE [facility] Comment on above: Performed By: #### D RUGRPD ####[facility] [address] [place] [id number]. Bella Jerome NGA Negative Normal NEGATIVE [facility] Comment on above: Performed By: #### D RUGRPD ####[facility] [address] [place], [place] [address]Dr. Bella Jerome CUT-OFFS SEE BELOW Normal [facility] Comment on above: Result Comment: AMP (Amphetamine): 500ng/mL, BAR (Barbituates): 200 ng/mL, BZO (Benzodiazepines): 150 ng/mL, BUP (Buprenorphine): 10 ng/mL, NGA (Cocaine): 150 ng/mL, mAMP (Methamphetamine): 500 ng/mL, MTD (Methadone): 200 ng/mL, OPI (Opiates): 100 ng/mL, OXY (Oxycodone): 100 ng/mL, PCP (Phencyclidine): 25 ng/mL, PPX (Propoxyphene): 300 ng/mL, THC (Cannabinoids): 50 ng/mL, TCA (Trycyclic Antidepressants): 300 ng/mL Performed By: #### D RUGRPD ####[facility] [address] [place], [place] [id number]. Bella Jerome DRUG CUT HEADER DRUG CLASS TEST SYSTEM CUT-OFF CONCENTRATIONS ARE FOLLOWS: Normal [facility] Comment on above: Performed By: #### D RUGRPD ####[facility] [address] [place] [id number]. Bella Jerome mAMP Negative Normal NEGATIVE [facility] Comment on above: Performed By: #### D RUGRPD ####[facility] [address] [place] [id number]. Bella Jerome MTD Negative Normal NEGATIVE [facility] Comment on above: Performed By: #### D RUGRPD ####[facility] [address] [place] [id number]. Bella Jerome OPI Negative Normal NEGATIVE [facility] Comment on above: Performed By: #### D RUGRPD ####[facility] [address] [place] [id number]. Yiwally Jerome OXY Negative Normal NEGATIVE [facility] Comment on above: Performed By: #### D RUGRPD ####[facility] [address] [place] [id number]. Bella Jerome PCP Negative Normal NEGATIVE [facility] Comment on above: Performed By: #### D RUGRPD ####[facility] [address] [place] [address]Dr. Bella Jerome PPX Negative Normal NEGATIVE [facility] Comment on above: Performed By: #### D RUGRPD ####[facility] [address] [place] [address]Dr. Bella Jerome TCA Negative Normal NEGATIVE [facility] Comment on above: Performed By: #### D RUGRPD ####[facility] [address] [place], [place] [id number]. Bella Jerome THC Negative Normal NEGATIVE [facility] Comment on above: Performed By: #### D RUGRPD ####[facility] [address] [place] [address]Dr. Bella Jerome TYPE AND SCREENon 09-05-2022 TYPE AND SCREEN Negative Normal [facility] Comment on above: Performed By: #### T NS ####[facility] [address] [place], [place] [address]Dr. Bella Jerome US PREG BIOPHY W NON [...] by: MANUELITO GREGG Date: 2022-08-31 17:06 Normal [facility] US PREG GROWTHon 08-30-2022 US PREG [...] by: MANUELITO GREGG Date: 2022-08-30 17:59 Normal [facility] US PREG BIOPHY W NON [...] by: MANUELITO GREGG Date: 2022-08-24 17:10 Normal [facility] FREE T4on 08-21-2022 Free T4 [Mass/Vol] 0.90 ng/dL Normal 0.76-1.46 [facility] Comment on above: Performed By: #### C BC #### [facility] [address] [place] [address] [address] Bella Jerome TSHon 08-21-2022 TSH 1.033 uIU/mL Normal 0.358-3.740 [facility] Comment on above: Performed By: #### H H #### [facility] [address] [address] [address] Bella Jerome PREG BIOPHY W NON [...] by: MANUELITO GREGG Date: 2022-08-17 18:33 Normal [facility] GROUP B STREP CULTUREon 07-28 S. agalactiae Ag Ql (Unsp spec) Culture Observations: NEGATIVE FOR GROUP B STREPTOCOCCUS. Normal [facility] Comment on above: Performed By: #### G BSCX ####[facility] [address] [place] [address]Dr. Bella Jerome PREG BIOPHY W NON STRESSo [...] by: MANUELITO GREGG Date: 2022-08-10 16:36 Normal [facility] US PREG GROWTHon 08-10-2022 US PREG [...] by: MANUELITO GREGG Date: 2022-08-10 16:37 Normal [facility] US PREG GROWTHon 07-25-2022 US PREG [...] by: MANUELITO GREGG Date: 2022-07-25 18:18 Normal [facility] FREE T4on 07-24-2022 Free T4 [Mass/Vol] 0.98 ng/dL Normal 0.76-1.46 [facility] Comment on above: Performed By: #### F T4 #### [facility] [address] [address] [address] Bella Jerome TSHon 07-24-2022 TSH 1.196 uIU/mL Normal 0.358-3.740 [facility] Comment on above: Performed By: #### T SH ####[facility] [address] [place], [place] [address]Dr. Bella Jerome UA (CLEAN/CATCH) TOWER SWITCH OPERATOR/MICRO I F IND.on 07-20-2022 Bilirubin Ql (U) Negative Normal NEGATIVE [facility] Comment on above: Performed By: #### H H #### [facility] [address] [place] [address] Dr. Bella Jerome Clarity (U) CLEAR Normal CLEAR [facility] Comment on above: Performed By: #### H H #### [facility] [address] [place] [address] Dr. Bella Jerome Color (U) LT. YELLOW Normal YELLOW [facility] Comment on above: Performed By: #### H H #### [facility] [address] [place] [address] Dr. Bella Jerome Glucose Ql (U) Negative Normal NEGATIVE [facility] Comment on above: Performed By: #### H H #### [facility] [address] [place] [address] Dr. Bella Jerome Hemoglobin Ql (U) Negative Normal NEGATIVE [facility] Comment on above: Performed By: #### H H #### [facility] [address] [place] [address] Dr. Bella Jerome Ketones Ql (U) Negative Normal NEGATIVE [facility] Comment on above: Performed By: #### H H #### [facility] [address] [place] [address] Dr. Bella Jerome LEUKOCYTES Negative Normal NEGATIVE [facility] Comment on above: Performed By: #### H H #### [facility] [address] [place] [address] Dr. Bella Jerome Nitrite Ql (U) Negative Normal NEGATIVE [facility] Comment on above: Performed By: #### H H #### [facility] [facility] [address] [place] [address] Dr. Bella Jerome pH (U) 7.0 [pH] Normal 5-9 [facility] Comment on above: Performed By: #### H H #### [facility] [address] [place] [address] Dr. Bella Jerome SPEC GRAVITY <=1.005 Abnormal 1.005-<=1.025 [facility] Comment on above: Performed By: #### H H #### [facility] [address] [place] [address] Dr. Bella Jerome UA PROTEIN Negative Normal NEGATIVE/ TRACE [facility] Comment on above: Performed By: #### H H #### [facility] [address] [place] [address] Dr. Bella Jerome UR MICRO IND NOT INDICATED Normal [facility] Comment on above: Performed By: #### H H #### [facility] [address] [place] [address] Dr. Bella Jerome Urobilinogen Qn (U) 0.2 {Kimberlee'U}/dL Normal 0.2 - 1. 0 [facility] Comment on above: Performed By: #### H H #### [facility] [address] [place] [address] Dr. Bella Jerome US PREG GROWTHon 06-27-2022 [...] by: RAGINI SANTOS Date: 2022-06-27 16:23 Normal [facility] FREE T4on 06-20-2022 Free T4 [Mass/Vol] 0.82 ng/dL Normal 0.76-1.46 [facility] Comment on above: Performed By: #### H H #### [facility] [address] [place] [address] Dr. Bella Jerome GLUCOSE - 1HRon 06-20-2022 Glucose [Mass/Vol] 127 mg/dL Critically high 74-106 [facility] Comment on above: Performed By: #### H H #### [facility] [address] [address] [address] Bella Jerome HEMOGRAM AND PLATELon 2021 Hematocrit (Bld) [Volume fraction] 32.4 % Critically low 36.0-48.0 [facility] Comment on above: Performed By: #### H H #### [facility] [address] [address] [address] Bella Jerome Hemoglobin (Bld) [Mass/Vol] 10.9 g/dL Critically low 12.0-16.0 [facility] Comment on above: Performed By: #### H H #### [facility] [address] [address] [address] Bella Jerome MCH (RBC) [Entitic mass] 32.9 pg Normal 26.7-34.0 [facility] Comment on above: Performed By: #### H H #### [facility] [address] [place] [address] Dr. Bella Jerome MCHC (RBC) [Mass/Vol] 33.6 g/dL Normal 29.9-35.2 [facility] Comment on above: Performed By: #### H H #### [facility] [address] [address] [address] Bella Jerome MCV (RBC) [Entitic vol] 97.9 fL Normal 81.0-99.0 [facility] Comment on above: Performed By: #### H H #### [facility] [address] [address] [address] Bella Jerome PLT 241 103/ul Normal 150-450 [facility] Comment on above: Performed By: #### H H #### [facility] [address] [address] [address] Bella Jerome RBC 3.31 106/ul Critically low 4.20-5.40 [facility] Comment on above: Performed By: #### H H #### [facility] [address] [address] [address] Bella Jerome WBC 11.3 103/ul Critically high 4.0-11.0 [facility] Comment on above: Performed By: #### H H #### [facility] [address] [address] [address] Bella Jerome TSHon 06-20-2022 TSH 3.044 uIU/mL Normal 0.358-3.740 [facility] Comment on above: Performed By: #### C BC #### [facility] [address] [place] [address] Dr. Bella Jerome US PREG INCOMPLETE ANATOMYon 05-24-2022 US PREG INCOMPLETE ANATOMY EXAMINATION: US PREG INCOMPLETE ANATOMY HISTORY: screening COMPARISON: Ultrasound anatomy 04/26/2022 FINDINGS: Presentation: Cephalic Heart rate: 154 bpm Anatomy: Cervical, thoracic, and lumbar spine HERNANDO: 09/13/2022 IMPRESSION: 1. Adequate visualization of the cervical, thoracic, and lumbar spine; no appreciable abnormality. Electronically authenticated by: RAGINI SANTOS Date: 2022-05-24 17:33 Normal [facility] US PREG ANATOMY SINGLEon US PREG [...] MANUELITO GREGG Date: 2022-04-26 16:54 Normal [facility] CHLAMYDIA/GONOCOCCUS FAVIAN (SW AB/URINE/PAPon 04-19-2022 Chlamydia trachomatis, FAVIAN Negative Normal Negative [facility] Comment on above: Performed By: #### C T/NGNA ####[facility] [address] [address]DrWill Jerome Neisseria gonorrhoeae, FAVIAN Negative Normal Negative [facility] Comment on above: Performed By: #### C T/NGNA ####[facility] [address] [place], [place] [address]HiWill Jerome VAGINITIS/VAGINOSIS DNA PROB Leonid 04-18-2022 Jessica species Negative Normal Negative [facility] Comment on above: Performed By: #### H H #### [facility] [address] [place] [address] Dr. Bella Jerome Gardnerella vaginalis Negative Normal Negative [facility] Comment on above: Performed By: #### H H #### [facility] [address] [place] [address] Dr. Bella Jerome Trichomonas vaginalis Negative Normal Negative [facility] Comment on above: Performed By: #### H H #### [facility] [address] [place] [address] Dr. Bella Jerome FREE T4on 04-05-2022 Free T4 [Mass/Vol] 0.88 ng/dL Normal 0.76-1.46 [facility] Comment on above: Performed By: #### F T4 #### [facility] [address] [place] [address] Dr. Bella Jerome TSHon 04-05-2022 TSH 1.786 uIU/mL Normal 0.358-3.740 [facility] Comment on above: Performed By: #### T SH ####[facility] [address] [place], [place] [address]Dr. Bella Jerome TSH RANGE SEE BELOW Normal [facility] Comment on above: Result Comment: <0.3 4 UIU/ml HYPERTHYROID 0.34-5.60 UIU/ml EUTHYROID >5.60 UIU/ml HYPOTHYROID Performed By: #### T SH ####[facility] [address] [address]Dr. Bella Jerome FREE T4on 02-26-2022 Free T4 [Mass/Vol] 1.06 ng/dL Normal 0.76-1.46 [facility] Comment on above: Performed By: #### C BC #### [facility] [address] [place] [address] Dr. Bella Jerome TSHon 02-26-2022 TSH 2.024 uIU/mL Normal 0.470-4.680 [facility] Comment on above: Performed By: #### C BC #### [facility] [address] [place], [place] [address] Dr. Bella Jerome TSH RANGE SEE BELOW Normal [facility] Comment on above: Result Comment: <0.3 4 UIU/ml HYPERTHYROID 0.34-5.60 UIU/ml EUTHYROID >5.60 UIU/ml HYPOTHYROID Performed By: #### C BC #### [facility] [address] [address] [address] Bella Jerome Vital Signs Date Time Vital Sign Value Performing Clinician Facility 08-04-2024 13:30-0400 Body mass index (BMI) [Ratio] 44.37 kg/m2 Marylou CARBAJAL Work Phone: [facility] 08-04-2024 13:30-0400 Body weight 113.63 kg Marylou CARBAJAL Work Phone: [facility] 08-04-2024 13:30-0400 Diastolic blood pressure 78 mm[Hg] Marylou CARBAJAL Work Phone: [facility] 08-04-2024 13:30-0400 Systolic blood pressure 128 mm[Hg] Marylou CARBAJAL Work Phone: [facility] 02-13-2024 11:24-0400 Body height 160.02 cm [facility] 02-13-2024 11:24-0400 Body mass index (BMI) [Ratio] 42.3 kg/m2 [facility] 02-13-2024 11:24-0400 Body weight 108.49 kg [facility] 02-13-2024 11:24-0400 Diastolic blood pressure 70 mm[Hg] [facility] 02-13-2024 11:24-0400 Heart rate 69 /min [facility] 02-13-2024 11:24-0400 Respiratory rate 18 /min [facility] 02-13-2024 11:24-0400 SaO2% (BldA) [Mass fraction] 98 % [facility] 02-13-2024 11:24-0400 Systolic blood pressure 118 mm[Hg] [facility] 10-31-2023 15:00-0500 Body height 160.02 cm Sandra [place] Other [employer] Other 10-31-2023 15:00-0500 Body mass index (BMI) [Ratio] 45.41 kg/m2 Sandra Geovanna Other [employer] Other 10-31-2023 15:00-0500 Body temperature 98.5 [degF] Sandra [place] Other [employer] Other 10-31-2023 15:00-0500 Body weight 116.3 kg Sandra Geovanna Other [employer] Other 10-31-2023 15:00-0500 Diastolic blood pressure 80 mm[Hg] Sandra [place] Other [employer] Other 10-31-2023 15:00-0500 Respiratory rate 18 /min Sandra Geovanna Other [employer] Other 10-31-2023 15:00-0500 SaO2% (BldA) [Mass fraction] 98 % Sandra [place] Other [employer] Other 10-31-2023 15:00-0500 Systolic blood pressure 128 mm[Hg] Sandra [place] Other [employer] Other 06-24-2023 14:30-0400 Body height 160.02 cm Sandra [place] Other [employer] Other 06-24-2023 14:30-0400 Body mass index (BMI) [Ratio] 44.87 kg/m2 Sandra [place] Other [employer] Other 06-24-2023 14:30-0400 Body weight 114.9 kg Sandra Geovanna Other [employer] Other 06-24-2023 14:30-0400 Diastolic blood pressure 60 mm[Hg] Sandra Geovanna Other [employer] Other 06-24-2023 14:30-0400 Respiratory rate 18 /min Sandra Geovanna Other [employer] Other 06-24-2023 14:30-0400 SaO2% (BldA) [Mass fraction] 99 % Sandra Geovanna Other [employer] Other 06-24-2023 14:30-0400 Systolic blood pressure 110 mm[Hg] Sandra [place] Other [employer] Other 04-15-2023 09:25-0400 Body height 160.02 cm Ramonita Yari Other [employer] Other 04-15-2023 09:25-0400 Body mass index (BMI) [Ratio] 41.8 kg/m2 Ramonita Yari Other [employer] Other 04-15-2023 09:25-0400 Body temperature 98.5 [degF] Ramonita Yari Other [employer] Other 04-15-2023 09:25-0400 Body weight 107.05 kg Ramonita Yari Other [employer] Other 04-15-2023 09:25-0400 Respiratory rate 18 /min Ramonita Yari Other [employer] Other 04-15-2023 09:25-0400 SaO2% (BldA) [Mass fraction] 97 % Ramonita Greenberg Other [employer] Other 02-21-2023 14:45-0400 Body height 160.02 cm Sandra [place] Other [employer] Other 02-21-2023 14:45-0400 Body mass index (BMI) [Ratio] 41.39 kg/m2 Sandra [place] Other [employer] Other 02-21-2023 14:45-0400 Body weight 106.01 kg Sandra [place] Other [employer] Other 02-21-2023 14:45-0400 Diastolic blood pressure 60 mm[Hg] Sandra [place] Other [employer] Other 02-21-2023 14:45-0400 Respiratory rate 18 /min Sandra [place] Other [employer] Other 02-21-2023 14:45-0400 SaO2% (BldA) [Mass fraction] 98 % Sandra [place] Other [employer] Other 02-21-2023 14:45-0400 Systolic blood pressure 110 mm[Hg] Sandra [place] Other [employer] Other 12-24-2022 14:30-0500 Body height 160.02 cm Sandra [place] Other [employer] Other 12-24-2022 14:30-0500 Body mass index (BMI) [Ratio] 40.83 kg/m2 Sandra Geovanna Other [employer] Other 12-24-2022 14:30-0500 Body weight 104.55 kg Sandra Geovanna Other [employer] Other 12-24-2022 14:30-0500 Diastolic blood pressure 70 mm[Hg] Sandra [place] Other [employer] Other 12-24-2022 14:30-0500 Respiratory rate 18 /min Sandra Geovanna Other [employer] Other 12-24-2022 14:30-0500 SaO2% (BldA) [Mass fraction] 99 % Sandra Geovanna Other [employer] Other 12-24-2022 14:30-0500 Systolic blood pressure 118 mm[Hg] Sandra Geovanna Other [employer] Other 12-21-2021 16:30-0500 Body height 160.02 cm Sandra Geovanna Other [employer] Other 12-21-2021 16:30-0500 Body mass index (BMI) [Ratio] 38.58 kg/m2 Sandra Geovanna Other [employer] Other 12-21-2021 16:30-0500 Body temperature 97.3 [degF] Sandra [place] Other [employer] Other 12-21-2021 16:30-0500 Body weight 98.79 kg Sandra [place] Other [employer] Other 12-21-2021 16:30-0500 Diastolic blood pressure 60 mm[Hg] Sandra Geovanna Other [employer] Other 12-21-2021 16:30-0500 Respiratory rate 18 /min Sandra Geovanna Other [employer] Other 12-21-2021 16:30-0500 SaO2% (BldA) [Mass fraction] 99 % Sandra Geovanna Other [employer] Other 12-21-2021 16:30-0500 Systolic blood pressure 118 mm[Hg] Sandra Geovanna Other [employer] Other Encounters Encounter Date Encounter Type Care Provider Facility Start: 08-04-2024 End: 08-04-2024 Bamboo flowsheet Marylou CARBAJAL Work Phone: [facility] Start: 08-04-2024 End: 08-04-2024 Bamboo flowsheet Marylou CARBAJAL Work Phone: [facility] Start: 08-04-2024 End: 08-04-2024 ambulatory MARYLOU PRIEST Not Available Start: 08-04-2024 End: 08-04-2024 flow sheet Marylou CARBAJAL Work Phone: [facility] Comment on above: 32 weeks [...] Not Available Start: 02-13-2024 End: 02-13-2024 ambulatory [facility] Work Phone: Start: 02-13-2024 End: 02-13-2024 Patient encounter procedure [facility] Work Phone: Start: 12-16-2023 Non-patient / Non-visit [facility] [employer] Work Phone: Start: 12-16-2023 End: 12-16-2023 ambulatory AGUS HANSA Not Available Start: 10-31-2023 End: 10-31-2023 ambulatory Sandra [place] Other [employer] Other Start: 10-31-2023 Office outpatient vi sit 25 minutes Sandra [place] [facility] [place] Start: 07-19-2023 End: 07-19-2023 ambulatory Sandra [place] Other [employer] Other Start: 07-19-2023 Telephone encounter Sandra Guevara [facility] Start: 06-24-2023 End: 06-24-2023 ambulatory Sandra [place] Other [employer] Other Start: 06-24-2023 Office outpatient vi sit 25 minutes Sandra [place] [facility] Start: 06-04-2023 End: 06-04-2023 ambulatory Sandra [place] Other [employer] Other Start: 06-04-2023 Telephone encounter Sandra Guevara [facility] Start: 04-15-2023 End: 04-15-2023 ambulatory Ramonita Greenberg Other [employer] Other Start: 04-15-2023 Office outpatient vi sit 15 minutes Ramonita Greenberg [facility] Start: 04-11-2023 End: 04-11-2023 ambulatory Sandra [place] Other [employer] Other Start: 04-11-2023 Telephone encounter Sandra [facility] Start: 02-21-2023 Office outpatient vi sit 25 minutes Sandra [place] [facility] Start: 02-21-2023 End: 02-22-2023 ambulatory SANDRA AUSTIN [facility] Other Start: 01-04-2023 End: 01-04-2023 ambulatory Sandra [place] Other [employer] Other Start: 01-04-2023 Telephone encounter Sandra Guevara [facility] Start: 12-30-2022 Encounter for genera l adult medical examination without abnormal findings SANDRA AUSTIN [facility] Start: 12-27-2022 End: 12-27-2022 ambulatory Sandra [place] Other [employer] Other Start: 12-27-2022 Telephone encounter Sandra G[facility] Start: 12-26-2022 End: 12-27-2022 ambulatory SANDRA AUSTIN Facility:[facility] Start: 12-26-2022 End: 12-27-2022 Encounter for general adult medical examination without abnormal findings SANDRA AUSTIN Facility:[facility] Start: 12-24-2022 End: 12-24-2022 ambulatory Sandra [place] Other [employer] Other Start: 12-24-2022 Encounter for genera l adult medical examination without abnormal findings Sandra [place] [facility] [place] Start: 12-24-2022 Periodic preventive med est patient 18-39 yrs Sandra Austin [facility] Start: 12-10-2022 End: 12-10-2022 ambulatory [...] 12-21-2021 End: 12-21-2021 ambulatory Sandra Geovanna Other [facility] Other Start: 12-21-2021 Office outpatient ne w 45 minutes Sandra [place] [facility] [place] Procedures Date Procedure Procedure Detail Performing Clinician [...] Visit [facility] [address] [place] [id number] Agus Juárez, DO [address] [place] [address] [facility] Start: 08-18-2024 End: 08-18-2024 Patient encounter procedure 08/18/2024 1:30 PM EDT Routine [facility] [address] [place] [id number] Agus Juárez, DO [address] [place] [address] [facility] Start: 08-18-2024 End: 08-18-2024 Professional / ancillary services management 08/18/2024 1:00 PM EDT Ancillary Procedure [facility] [address] [place] [address] [facility] Patient Education Low back pain in adults [facility] Work Phone: Immunizations Immunization Date Immunization Notes Care Provider Fa cility 09-08-2022 diphtheria, tetanus toxoids and pertussis vaccine Marylou CARBAJAL Work Phone: [facility] 09-12-2021 pneumococcal conjuga te vaccine, 13 valent Marylou CARBAJAL Work Phone: [facility] 08-14-1999 diphtheria, tetanus toxoids and acellular pertussis vaccine, unspecified formulation Marylou CARBAJAL Work Phone: [facility] 08-14-1999 haemophilus influenz ae type b vaccine, HbOC conjugate Marylou CARBAJAL Work Phone: [facility] 08-14-1999 measles, mumps and rubella virus vaccine Marylou CARBAJAL Work Phone: [facility] 08-14-1999 trivalent poliovirus vaccine, live, oral Marylou CARBAJAL Work Phone: [facility] 04-27-1998 diphtheria, tetanus toxoids and acellular pertussis vaccine, unspecified formulation Marylou CARBAJAL Work Phone: [facility] 04-27-1998 haemophilus influenz ae type b conjugate and Hepatitis B vaccine Marylou CARBAJAL Work Phone: [facility] 1997 diphtheria, tetanus toxoids and acellular pertussis vaccine, unspecified formulation Marylou CARBAJAL Work Phone: [facility] 1997 haemophilus influenz ae type b vaccine, HbOC conjugate Marylou CARBAJAL Work Phone: [facility] 1997 poliovirus vaccine, inactivated Marylou CARBAJAL Work Phone: [facility] 1997 diphtheria, tetanus toxoids and acellular pertussis vaccine, unspecified formulation Marylou CARBAJAL Work Phone: [facility] 1997 haemophilus influenz ae type b conjugate and Hepatitis B vaccine Marylou CARBAJAL Work Phone: [facility] 1997 poliovirus vaccine, inactivated Marylou CARBAJAL Work Phone: [facility] 1997 hepatitis B vaccine, pediatric or pediatric/adolescent dosage Marylou CARBAJAL Work Phone: [facility] Payers Date Payer Category Payer Unknown [employer] [id number] 2023-Present [address] [place] [address] [id number] 2023 Unknown [id number] 2.16.840.1.630226.19 1997 Unknown [id number] 2.16.840.1.514959.3.579.2. 593 1997 Unknown [id number] 2.16.840.1.097229.3.579.2. 593 1997 Unknown [id number] 2.16.840.1.554778.3.579.2. 593 1997 Unknown [id number] 2.16.840.1.159650.3.579.2. 593 1997 Unknown [id number] 2.16.840.1.449773.3.579.2. 593 1997 Unknown [id number] 2.16.840.1.528290.3.579.2. 593 1997 Unknown [id number] 2.16.840.1.640415.3.579.2. 593 1997 Unknown [id number] 2.16.840.1.173476.3.579.2. 593 1997 Unknown [id number] 2.16.840.1.239041.3.579.2. 593 1997 Unknown [id number] 2.16.840.1.260112.3.579.2. 593 1997 Unknown [id number] 2.16.840.1.812004.3.579.2. 593 1997 Unknown [id number] 2.16.840.1.308902.3.579.2. 593 1997 Unknown [id number] 2.16.840.1.480484.3.579.2. 593 1997 Unknown [id number] 2.16.840.1.254306.3.579.2. 593 1997 Unknown [id number] 2.16.840.1.041768.3.579.2. 593 1997 Unknown [id number] 2.16.840.1.540867.3.579.2. 593 1997 Unknown [id number] 2.16.840.1.184949.3.579.2. 593 1997 Unknown [id number] 2.16.840.1.712704.3.579.2. 593 1997 Unknown [id number] 2.16.840.1.077160.3.579.2. 593 1997 Unknown [id number] 2.16.840.1.015347.3.579.2. 593 1997 Unknown [id number] 2.16.840.1.561103.3.579.2. 593 1997 Unknown [id number] 2.16.840.1.340278.3.579.2. 593 1997 Unknown [id number] 2.16.840.1.964928.3.579.2. 593 1997 Unknown [id number] 2.16.840.1.815867.3.579.2. 1259 1997 Unknown [id number] 2.16.840.1.484576.3.579.2. 9 1997 Unknown [id number] 2.16.840.1.529979.3.579.2. 9 1997 Unknown [id number] 2.16.840.1.033550.3.579.2. 1258 1997 Unknown [id number] 2.16.840.1.779179.3.579.2. 1258 1997 Unknown [id number] 2.16.840.1.544602.3.579.2. 1258 1997 Unknown [id number] 2.16.840.1.000281.3.579.2. 1258 1997 Unknown [id number] 2.16.840.1.839592.3.579.2. 1258 1997 Unknown [id number] 2.16.840.1.214985.3.579.2. 9 1957 Medicaid [id number] 2.16.840.1.736194.19 1957 Private Health Insurance [id number] 2.16.840.1.016941.19 Self-pay Self Pay [id number] Unknown [place] [id number] Social History Date Type Detail Facility Start: 08-02-2023 End: 11-25-2023 Sex Assigned At [facility] Other Start: 1995 Sex Assigned At Female [facility] Start: 08-02-2023 [facility] Start: 08-02-2023 Tobacco use and exposure Smokeless tobacco non-user [facility] Start: 07-21-2024 End: 08-04-2024 Alcoholic beverage intake Ex-drinker (finding) [facility] Start: 08-02-2023 End: 11-25-2023 History of Social function [facility] Start: 01-03-2024 [facility] Start: 1995 Sex assigned at Not on file [facility] Clinical Notes 12-21-2021 to 08-04-2024 SOLOMON [...] before breakfast, Do not crush or chew. [id number] ( 1 + IRON PO) Oral ALLERGIES [...] of: SOLOMON Turner documented in this encounter [facility] 10-31-2023 Evaluation note Encounter Date Diagnosis Assessment [...] E28.2) She will continue to follow with [facility] and continue healthy lifestyle changes that she [...] course of antibiotic. Increase fluids and rest. [id number] antipyretics as needed. Warning signs and symptoms reviewed with patient today. Patient to go immediately to the ER should she experience any of these. Patient to notify office should her symptoms persist and not improve. Patient verbalizes understanding and agrees to treatment plan. [employer] Other 09-22-2023 Evaluation note* Encounter Date Diagnosis Assessment Notes Treatment Notes Treatment Clinical Notes Jun, Vitamin D insufficiency (ICD-10 - E55.9) [employer] Other 08-28-2023 Evaluation note* Encounter Date Diagnosis Assessment Notes Treatment Notes Treatment Clinical Notes May, Prediabetes (ICD-10 - R73.03) Recent lab work reviewed with her from [facility]. In office [id number] shows good control with diet and exercise. Will continue current treatment plan. Patient is advised to work on healthy diet choices and appropriate servings, weight control, regular exercise as directed, reduced fat intake, and salt avoidance. Patient voiced understanding of this and agrees to this plan. May, PCOS (polycystic ovarian syndrome) (ICD-10 - E28.2) She will continue to follow with [facility] COMMISSIONER and continue healthy lifestyle changes that she [...] ENT today. Specialty notes reviewed as received. [employer] Other 08-08-2023 Evaluation note* Encounter Date Diagnosis Assessment Notes Treatment Notes Treatment Clinical Notes May, Other atopic dermatitis (ICD-10 - L20.89) May, Acute otitis externa of both ears, unspecified type (ICD-10 - H60.503) [employer] Other 06-19-2023 Evaluation note* Encounter Date Diagnosis [...] no improvement in 2 to 3 days [employer] Other 06-15-2023 Evaluation note* Encounter Date Diagnosis Assessment Notes Treatment Notes Treatment Clinical Notes Mar, Anxiety (ICD-10 - F41.9) [employer] Other 04-27-2023 Evaluation note* Encounter Date Diagnosis [...] plan on rechecking this at May appointment. [employer] Other 03-10-2023 Evaluation note* Encounter Date Diagnosis Assessment Notes Treatment Notes Treatment Clinical Notes Dec, Bacterial conjunctivitis (ICD-10 - H10.9) [employer] Other 03-02-2023 Evaluation note* Encounter Date Diagnosis Assessment Notes Treatment Notes Treatment Clinical Notes Dec, Vitamin D insufficiency (ICD-10 - E55.9) Dec, Elevated alkaline phosphatase level (ICD-10 - R74.8) Dec, Other specified hypothyroidism (ICD-10 - E03.8) [employer] Other 02-27-2023 Evaluation note* Encounter Date Diagnosis [...] ordered. Follow routinely with eye doctor, dentist, HEALTH COMMISSIONER. Patient is advised to work on healthy diet choices and appropriate servings, weight control, regular exercise as directed, reduced fat intake, and salt avoidance. Patient voiced understanding of this and agrees to this plan. Nov, PCOS (polycystic ovarian syndrome) (ICD-10 - E28.2) Routine lab work ordered. She will continue to follow with OB-HEALTH COMMISSIONER and continue healthy lifestyle changes that she [...] homicidal ideations. Started on Celexa by her HEALTH COMMISSIONER. Very stable on Celexa 20 mg daily. [...] her ears still persist after starting this. [employer] Other 02-24-2022 Evaluation note* Encounter Date Diagnosis Assessment Notes Treatment Notes Treatment Clinical Notes Nov, Prediabetes (ICD-10 - R73.03) She was recently dx with prediabetes and was started on Metformin 500 mg BID 2 weeks ago by her OB-HEALTH COMMISSIONER. She would like to follow with our [...] - E28.2) She is following with her OB-HEALTH COMMISSIONER for her PCOS and is currently on Metformin 500 mg BID and is taking medication to help her get . She will continue to follow with OB-HEALTH COMMISSIONER and continue healthy lifestyle changes that she [...] of fatigue, difficulty losing weight by her OB-HEALTH COMMISSIONER. She would like to start following with [...] of this and agrees to this plan. [employer] Other Evaluation note* Diagnosis Onset Date Resolution Status 8 weeks gestation of acute Low back pain [facility] Work Phone: Evaluation note* Diagnosis 32 weeks gestation of Third trimester state, incidental Anxiety, generalized (CMS/HCC) documented in this encounter [facility] N[facility]ative - Reported* Type Description Date Medical History PCOS Medical History THYROID ISSUES Surgical History THIRD NIPPLE REMOVED Surgical History Colonoscopy-normal 2018 [employer] Other Summary Purpose Family History Relationship Condition [...] DATE CREATED AUTHOR AUTHOR'S ESMER FLORES 08/06/2024 [facility] EPIC Care Teams (unrecognized [...] February 13, 2024 End: February 13, 2024 Fire Investigation Manager Relationship Specialty Start Date End Date Sandra Austin NP [address] [place] [address] PCP - General 07/19/23 Fire Investigation Manager Relationship Specialty Start Date End Date Sandra Austin NP [address] [facility] [place] [address] PCP - General 07/19/23 Goals (unrecognized section [...] BE BASED ON THE PRIMARY CLINICAL RECORDS. [facility] [employer] provides no warranty or guarantee of the accuracy or completeness of information in this document.
[2024-08-15 07:40] VITALS: BP 119/76; PULSE 83
== END 2024-08-15 08:21 | disposition home or self-care (01) ==
LOC: FBCO 07:24 → FBC 07:33
PROVIDERS: PCP Nurse Practitioner Family; Visit Provider Obstetrics & Gynecology
DX: O99.283 Endocrine, nutritional and metabolic diseases complicating pregnancy, third trimester (principal)
CPT/HCPCS: 59025

== ENCOUNTER 2024-08-18 11:12 | Outpatient (OUT) | payer OTHER, SELFPAY ==
--- OUTSIDE RECORDS SUMMARY | 2024-08-18 11:29 | XMS_ITS | CCD ---
Author Organization [facility] CliniSyut Care Team Providers Care Instrument Repair Specialist Name Role Phone [facility] Unavailable KAP, SANDRA Primary Care Unavailable HANSA ., DR GOLDSMITH Attending Unavailable WEST, DR MANUELITO Foley Consulting Unavailable HANSA ., DR GOLDSMITH Admitting Unavailable HANSA ., DR GOLDSMITH Consulting Unavailable BRIAN, VIRGINIA Admitting Unavailable VIRGINIA TORRES Attending Unavailable KAP, SANDRA Primary Care Unavailable FRUITA, DR MANUELITO Foley Consulting Unavailable HANSA ., [...] Unavailable HANSA ., DR GOLDSMITH Attending Unavailable FRUITA, DR MANUELITO Foley Consulting Unavailable HANSA ., [...] Unavailable HANSA ., DR GOLDSMITH Attending Unavailable FRUITA, DR MANUELITO Foley Consulting Unavailable HANSA ., [...] LYK ., DR HU Consulting Unavailabl e FRUITA, DR MANUELITO Foley Consulting Unavailable HANSA ., DR GOLDSMITH Consulting Unavailable SANDRA AUSTIN Primary Care Unavailable HANSA ., DR GOLDSMITH Attending Unavailable FRUITA, DR MANUELITO Foley Consulting Unavailable HANSA ., DR GOLDSMITH Admitting Unavailable HANSA ., DR GOLDSMITH Consulting Unavailable Yari Ramonita Unavailable MARYLOU PRIEST Attending Unavailable HANSA, AGUS Attending Unavailable HANSA, AGUS Attending Unavailable HANSA, AGUS Attending Unavailable MARYLOU PRIEST Attending Unavailable HANSA, AGUS Attending Unavailable HANSA, AGUS Attending Unavailable HANSA, AGUS Attending Unavailable Geovanna CASING WORKER, Sandra Hall Primary Care Provider [phone] Medications Current Medications Medication Drug Class(es) Dates [...] hours February 13, 2024 12:00am polymyxin b 74525 unt/ml / trimethoprim 1 mg/ml ophthalmic solution (3 sources) Dihydrofolate Reductase Inhibitor Antibacterial, Polymyxin-class Antibacterial Start: 01-05-20 Polymyxin B-Trimethoprim 74967-8.1 UNIT/ML 1 drop into affected eye Ophthalmic every 3 hours up to six times daily for 7 days Dec, Active (10 sources) Active Bwveqrtj-Eie-Ii-FA ( 1 + IRON PO) (3 sources) Gncjlrqw-Knd-Cj-FA ( 1 + IRON PO) Take by [...] acid 7540 MG / polyethylene glycol 3350 78605 MG / potassium chloride 1200 MG / sodium ascorbate 36521 MG / sodium chloride 3200 MG Powder for Oral Solution) / 1 (polyethylene glycol 3350 576859 MG / potassium chloride 1000 MG / [...] UA Negative Negative - 4(70) +++ mg/dL [facility] Blood, UA Negative Negative - 50 Jose Manuel/mcL [facility] Clarity, [facility]A Clear [facility] Yellow [facility] Healthcar e Glucose, UA Negative Negative - 1999(110) ++++ mg/dL [facility] Interpretation and review of laboratory results Abnormal [facility] Ketones, UA Negative Negative - 160(16) ++++ mg/dL [facility] Leukocytes, UA Trace Negative - 500+++ Alexys/mcL [facility] Nitrite, UA Negative Negative - Positive [facility] pH, UA 7.0 5 - 9 [facility] e Protein, UA Negative Negative - 1999(20) ++++ mg/dL [facility] Spec Grav, UA 1.015 1 - 1.03 [facility] Urobilinogen, UA 0.2 0.2 - 12 mg/dL [facility] Human papilloma virus 16+18+ 31+33+35+39+45+51+52+56+58+59+66+68 DNA [Presence] in Anders 12-16-2023 HPV 16+18+31+33+35+39+45 +51+52+56+58+59+66+6 8 DNA Probe+sig amp Ql (Cvx) Note . [facility] Comment on above: TESTS RESULT FLAG UN ITS REF RANGE LAB DI AGNOSIS: 02 NEGATIVE FOR INTRAEPITHELIAL LESION OR MALIGNANCY.Specimen adequacy: 02 Satisfactory for evaluation. Endocervical and/or squamous metaplastic cells (endocervical component) are present.Performed by: 02 Raeann Duran, [place] [employer] Lieutenant (ASCP). 02Note: Note 02 The Pap smear is a screening test designed to aid in the detection of premalignant and malignant conditions of the uterine cervix. It is not a diagnostic procedure and should not be used as the sole means of detecting cervical cancer. Both false-positive and false-negative reports do occur.Test Methodology: Note 02 The [employer] Hvac Engineering Technician was unable to read this specimen. Therefore a manual review was performed. ----- FLAG LEGEND: L-Low Normal,H-High Normal,LL-Alert Low,HH-Alert High <-Panic Low,>-Panic High,A-Abnormal,AA-Critical Abnormal ---Performed at:[address] [id number] Heavenly Serrano MD, . 02 The HPV DNA reflex criteria were not met with this specimen result therefore, no HPV testing was performed.The HPV DNA reflex criteria were not met with this specimenresult therefore, no HPV testing was performed.Performed at: =[facility] [id number] Director: Heavenly Serrano MD, Phone: [phone] at: [address] [id number] Director: Heavenly Serrano MD, Phone: [phone] No Panel Informationon 12-16 Reference Lab Test Patient Age Note . [facility] Comment on above: TESTS RESULT FLAG UN ITS REF RANGE LAB Clinician Provided Cytology Information Source.............Cervix No. of containers..01 ThinPrep VialAge Niruo DELORIS Leslye... FLAG LEGEND: L-Low Normal,H-High Normal,LL-Alert Low,HH-Alert High <-Panic Low,>-Panic High,A-Abnormal,AA-Critical Abnormal ---Performed at:01 =[facility] [id number] Heavenly Serrano MD, A1C HEMOGLOBINon 10-31-2023 HbA1c (Bld) [Mass fraction] 5.8 % [employer] Other HbA1c (Bld) [Mass fraction]o n 10-31-2023 A1C HEMOGLOBIN [employer] Other A1C HEMOGLOBINon 06-24-2023 HbA1c (Bld) [Mass fraction] 5.2 % [employer] Other HbA1c (Bld) [Mass fraction]o n 06-24-2023 A1C HEMOGLOBIN [employer] Other Quick Strepon 04-15-2023 S. pyogenes Org specific cx Ql (Throat) Positive [employer] Other Quick Strep [employer] Other FREE T4on 02-21-2023 Free T4 [Mass/Vol] 0.89 ng/dL Normal 0.76-1.46 [facility] Comment on above: Performed By: #### H H #### [facility] [address] [place] [id number] [address] Bella Jerome PROF 14(COMP METB)on 023 Albumin [Mass/Vol] 3.7 g/dL Normal 3.4-5.0 [facility] Comment on above: Performed By: #### H H #### [facility] [address] [place] [address] Dr. Bella Jerome Albumin/Globulin [Mass ratio] 0.9 {ratio} Normal [facility] Comment on above: Performed By: #### H H #### [facility] [address] [place] [address] Dr. Bella Jerome ALP [Catalytic activity/Vol] 132 U/L Critically high 46-[address] [facility] Comment on above: Performed By: #### H H #### [facility] [address] [place] [address] Dr. Bella Jerome ALT [Catalytic activity/Vol] 32 U/L Normal 14-[address] [facility] Comment on above: Performed By: #### H H #### [facility] [address] [place] [address] Dr. Bella Jerome Anion gap [Moles/Vol] 12.8 mmol/L Normal [facility] Comment on above: Performed By: #### H H #### [facility] [address] [place] [address] Dr. Bella Jerome AST [Catalytic activity/Vol] 23 U/L Normal 15-[address] [facility] Comment on above: Performed By: #### H H #### [facility] [address] [place] [address] Dr. Bella Jerome Bilirubin [Mass/Vol] 0.6 mg/dL Normal 0.2-1.[address] [facility] Comment on above: Performed By: #### H H #### [facility] [address] [place] [address] Dr. Bella Jerome Calcium [Mass/Vol] 9.0 mg/dL Normal 8.5-10.1 [facility] Comment on above: Performed By: #### H H #### [facility] [address] [place] [address] Dr. Bella Jerome Chloride [Moles/Vol] 102 mmol/L Normal 98-[address] [facility] Comment on above: Performed By: #### H H #### [facility] [address] [place] [address] Dr. Bella Jerome CO2 [Moles/Vol] 28.2 mmol/L Normal 21.0-32.0 [facility] Comment on above: Performed By: #### H H #### [facility] [address] [place] [address] Dr. Bella Jerome Creatinine [Mass/Vol] 0.67 mg/dL Normal 0.55-1.[address] [facility] Comment on above: Performed By: #### H H #### [facility] [address] [place] [address] Dr. Bella Jerome EGFR-AF ENGLISH >60 Normal >=60 [facility] Comment on above: Performed By: #### H H #### [facility] [address] [place] [address] Dr. Bella Jerome EGFR-NON AF ENGLISH >60 Normal >=[address] [facility] Comment on above: Performed By: #### H H #### [facility] [address] [place] [address] Dr. Bella Jerome Globulin (S) [Mass/Vol] 4.2 g/dL Normal [facility] Comment on above: Performed By: #### H H #### [facility] [address] [place] [address] Dr. Bella Jerome Glucose [Mass/Vol] 88 mg/dL Normal 74-106 [facility] Comment on above: Performed By: #### H H #### [facility] [address] [place] [address] Dr. Bella Jerome Potassium [Moles/Vol] 4.0 mmol/L Normal 3.5-5.1 [facility] Comment on above: Performed By: #### H H #### [facility] [address] [place] [address] Dr. Bella Jerome Protein [Mass/Vol] 7.9 g/dL Normal 6.4-8.2 [facility] Comment on above: Performed By: #### H H #### [facility] [address] [place] [address] Dr. Bella Jerome Sodium [Moles/Vol] 139 mmol/L Normal 136-145 [facility] Comment on above: Performed By: #### H H #### [facility] [address] [place] [address] Dr. Bella Jerome Urea nitrogen [Mass/Vol] 12.0 mg/dL Normal 7.0-18.[address] [facility] Comment on above: Performed By: #### H H #### [facility] [address] [place] [address] Dr. Bella Jerome Urea nitrogen/Creatinine [Mass ratio] 17.9 mg/mg Normal [facility] Comment on above: Performed By: #### H H #### [facility] [address] [place] [address] Dr. Bella Jerome TSHon 02-21-2023 TSH 2.463 uIU/mL Normal 0.358-3.740 [facility] Comment on above: Performed By: #### H H #### [facility] [address] [place] [address] Dr. Bella Jerome VITAMIN D 25 OHon 02-21-2023 VIT D 25-OH 23.1 ng/mL Normal [facility] Comment on above: Performed By: #### H H #### [facility] [address] [place] [address] Dr. Bella Jerome VIT D RANGES SEE BELOW Normal [facility] Comment on above: Result Comment: <20 ng/mL Vit D deficient 20 - <30 ng/mL Vit D insufficient 30 - 100 ng/mL Vit D sufficient >100 ng/mL Potential Toxicity Performed By: #### H H #### [facility] [address] [place] [address] Dr. Bella Jerome CBC AUTO DIFFon 12-26-2022 BASO # 0.0 103/ul Normal 0.0-0.[address] [facility] Comment on above: Performed By: #### C BC #### [facility] [address] [place] [address] Dr. Bella Jerome Basophils/100 WBC (Bld) 0.3 % Normal 0.2-2.[address] [facility] Comment on above: Performed By: #### C BC #### [facility] [address] [place] [address] Dr. Bella Jerome EO # 0.1 103/ul Normal 0.0-0.[address] [facility] Comment on above: Performed By: #### C BC #### [facility] [address] [place] [address] Dr. Bella Jerome Eosinophils/100 WBC (Bld) 1.6 % Normal 0.9-7.[address] [facility] Comment on above: Performed By: #### C BC #### [facility] [address] [place] [address] Dr. Bella Jerome Erythrocyte distribution width (RBC) [Ratio] 12.7 % Normal 11.0-15.[address] [facility] Comment on above: Performed By: #### C BC #### [facility] [address] [place] [address] Dr. Bella Jerome Hematocrit (Bld) [Volume fraction] 37.2 % Normal 36.0-48.[address] [facility] Comment on above: Performed By: #### C BC #### [facility] [address] [place] [address] Dr. Bella Jerome Hemoglobin (Bld) [Mass/Vol] 12.5 g/dL Normal 12.0-16.[address] [facility] Comment on above: Performed By: #### C BC #### [facility] [address] [place] [address] Dr. Bella Jerome IG # 0.02 10e3/ul Normal 0.00-0.[address] [facility] Comment on above: Performed By: #### C BC #### [facility] [address] [place] [address] Dr. Bella Jerome IG % 0.3 % Normal 0.0-0.5 [facility] Comment on above: Performed By: #### C BC #### [facility] [address] [place] [address] Dr. Bella Jerome LYMPH # 2.3 103/ul Normal 1.2-3.8 [facility] Comment on above: Performed By: #### C BC #### [facility] [address] [place] [address] Dr. Bella Jerome Lymphocytes/100 WBC (Bld) 34.1 % Normal 20.5-60.[address] [facility] Comment on above: Performed By: #### C BC #### [facility] [address] [place] [address] Dr. Bella Jerome MANUAL DIFF REQ NO Normal [facility] Comment on above: Performed By: #### C BC #### [facility] [address] [place] [address] Dr. Bella Jerome MCH (RBC) [Entitic mass] 30.9 pg Normal 26.7-34.[address] [facility] Comment on above: Performed By: #### C BC #### [facility] [address] [place] [address] Dr. Bella Jerome MCHC (RBC) [Mass/Vol] 33.6 g/dL Normal 29.9-35.[address] [facility] Comment on above: Performed By: #### C BC #### [facility] [address] [place] [address] Dr. Bella Jerome MCV (RBC) [Entitic vol] 91.9 fL Normal 81.0-99.[address] [facility] Comment on above: Performed By: #### C BC #### [facility] [address] [place] [address] Dr. Bella Jerome MONO # 0.4 103/ul Normal 0.3-0.[address] [facility] Comment on above: Performed By: #### C BC #### [facility] [address] [place] [address] Dr. Bella Jerome Monocytes/100 WBC (Bld) 5.1 % Normal 1.7-12.[address] [facility] Comment on above: Performed By: #### C BC #### [facility] [address] [place] [address] Dr. Bella Jerome NEUT # 4.0 103/ul Normal 1.4-6.[address] [facility] Comment on above: Performed By: #### C BC #### [facility] [address] [place] [address] Dr. Bella Jerome Neutrophils/100 WBC (Bld) 58.6 % Normal 43.0-75.[address] [facility] Comment on above: Performed By: #### C BC #### [facility] [address] [address] [address] Bella Jerome Platelet mean volume (Bld) [Entitic vol] 11.5 fL Normal 9.5-13.[address] [facility] Comment on above: Performed By: #### C BC #### [facility] [address] [address] [address] Bella Jerome PLT 243 103/ul Normal 150-450 [facility] Comment on above: Performed By: #### C BC #### [facility] [address] [address] [address] Bella Jerome RBC 4.05 106/ul Critically low 4.20-5.40 [facility] Comment on above: Performed By: #### C BC #### [facility] [address] [address] [address] Bella Jerome WBC 6.8 103/ul Normal 4.0-11.[address] [facility] Comment on above: Performed By: #### C BC #### [facility] [address] [address] [address] Bella Jerome FREE T4on 12-26-2022 Free T4 [Mass/Vol] 1.05 ng/dL Normal 0.76-1.46 [facility] Comment on above: Performed By: #### F T4, VITAD, B12FOL, IRON ####[facility] [id number] [id number] Bella Jerome GLYCOHEMOGLOBIN A1Con 2022 ADA RECOMMENDATION SEE BELOW Normal [facility] Comment on above: Result Comment: ADA RECOMMENDED LIMIT 4.0 - 6.0 ADA THERAPEUTIC TARGET < 7.0 ACTION SUGGESTED > 7.0 Performed By: #### A 1C #### [facility] [address] [address] [address] Bella Jerome Glucose [Mass/Vol] 103 mg/dL Normal [facility] Comment on above: Performed By: #### A 1C #### [facility] [address] [address] [address] Bella Jerome HbA1c (Bld) [Mass fraction] 5.2 % Normal 4.5-6.[address] [facility] Comment on above: Performed By: #### A 1C #### [facility] [address] [address] [address] Bella Jerome IRONon 12-26-2022 Iron [Mass/Vol] 74.0 ug/dL Normal 50.0-170.0 [facility] Comment on above: Performed By: #### F T4, VITAD, B12FOL, IRON ####[facility] [id number] [place], [place] [id number]. Bella Jerome LIPID PROFILEon 12-26-2022 CHOL-HDL RATIO NORM SEE BELOW Normal [facility] Comment on above: Result Comment: 3.3 - 4.4 LOW RISK 4.4 - 7.1 AVERAGE RISK 7.1 - 11.0 MODERATE RISK >11.0 HIGH RISK Performed By: #### C MP, TSH, LIPID #### [facility] [address] [address] [address] Bella Jerome Cholesterol [Mass/Vol] 153 mg/dL Normal <=[address] [facility] Comment on above: Performed By: #### C MP, TSH, LIPID #### [facility] [address] [address] [address] Bella Jerome Cholesterol in HDL [Mass/Vol] 67 mg/dL Critically high 40-[address] [facility] Comment on above: Performed By: #### C MP, TSH, LIPID #### [facility] [address] [address] [address] Bella Jerome Cholesterol in LDL [Mass/Vol] 77.2 mg/dL Normal [facility] Comment on above: Performed By: #### C MP, TSH, LIPID #### [facility] [address] [address] [address] Bella Jerome Cholesterol.total/Ch olesterol in HDL [Mass ratio] 2.3 {ratio} Normal [facility] Comment on above: Performed By: #### C MP, TSH, LIPID #### [facility] [address] [address] [address] Bella Jerome HDL NORMAL > or = 60 mg/dl - LOW CARDIOVASCULAR RISK <40 mg/dl - HIGH CARDIOVASCULAR RISK Normal [facility] Comment on above: Performed By: #### C MP, TSH, LIPID #### [facility] [address] [address] [address] Bella Jerome LDL CALC NORMAL SEE BELOW Normal [facility] Comment on above: Result Comment: <100 mg/dl OPTIMAL 100 - 129 mg/dl NEAR OR ABOVE OPTIMAL 130 - 159 mg/dl BORDERLINE HIGH 160 - 189 mg/dl HIGH >190 mg/dl VERY HIGH Performed By: #### C MP, TSH, LIPID #### [facility] [address] [address] [address] Bella Jerome Triglyceride [Mass/Vol] 44 mg/dL Normal <=[address] [facility] Comment on above: Performed By: #### C MP, TSH, LIPID #### [facility] [address] [address] [address] Bella Jerome VLDL CALC 8.8 mg/dL Normal [facility] Comment on above: Performed By: #### C MP, TSH, LIPID #### [facility] [address] [address] [address] Bella Jerome MICROALB CREAT RATIO RANDOMo n 12-26-2022 mALB 2.3 mg/L Normal <=30.[address] [facility] Comment on above: Performed By: #### H H #### [facility] [address] [address] [address] Bella Jerome MALB CR RATIO 17.4 mg/g Normal 0.0-29.9 [facility] Comment on above: Performed By: #### H H #### [facility] [address] [address] [address] Bella Jerome MALB CR RATIO RANGE SEE BELOW Normal [facility] Comment on above: Result Comment: NO M ICROALBUMINURIA 0-29 MG/G CLINICAL MICROALBUMINURIA 30-300 MG/G MACROALBUMINURIA >300 MG/G Performed By: #### H H #### [facility] [address] [address] [address] Bella Jerome URINE CREAT 131.90 mg/dL Normal 20.00-300.00 [facility] Comment on above: Performed By: #### H H #### [facility] [address] [address] [address] Bella Jerome PROF 14(COMP METB)on 023 Albumin [Mass/Vol] 4.1 g/dL Normal 3.4-5.0 [facility] Comment on above: Performed By: #### C MP, TSH, LIPID #### [facility] [address] [address] [address] Bella Jerome Albumin/Globulin [Mass ratio] 1.3 {ratio} Normal [facility] Comment on above: Performed By: #### C MP, TSH, LIPID #### [facility] [address] [place] [address] Dr. Bella Jerome ALP [Catalytic activity/Vol] 124 U/L Critically high 46-[address] [facility] Comment on above: Performed By: #### C MP, TSH, LIPID #### [facility] [address] [address] [address] Bella Jerome ALT [Catalytic activity/Vol] 16 U/L Normal 14-[address] [facility] Comment on above: Performed By: #### C MP, TSH, LIPID #### [facility] [address] [address] [address] Bella Jerome Anion gap [Moles/Vol] 13.4 mmol/L Normal [facility] Comment on above: Performed By: #### C MP, TSH, LIPID #### [facility] [address] [address] [address] Bella Jerome AST [Catalytic activity/Vol] 17 U/L Normal 15-[address] [facility] Comment on above: Performed By: #### C MP, TSH, LIPID #### [facility] [address] [address] [address] Bella Jerome Bilirubin [Mass/Vol] 0.8 mg/dL Normal 0.2-1.[address] [facility] Comment on above: Performed By: #### C MP, TSH, LIPID #### [facility] [address] [address] [address] Bella Jerome Calcium [Mass/Vol] 8.9 mg/dL Normal 8.5-10.1 [facility] Comment on above: Performed By: #### C MP, TSH, LIPID #### [facility] [address] [address] [address] Bella Jerome Chloride [Moles/Vol] 103 mmol/L Normal 98-107 [facility] Comment on above: Performed By: #### C MP, TSH, LIPID #### [facility] [address] [address] [address] Bella Jerome CO2 [Moles/Vol] 25.6 mmol/L Normal 21.0-32.0 [facility] Comment on above: Performed By: #### C MP, TSH, LIPID #### [facility] [address] [address] [address] Bella Jreome Creatinine [Mass/Vol] 0.55 mg/dL Normal 0.55-1.[address] [facility] Comment on above: Performed By: #### C MP, TSH, LIPID #### [facility] [address] [place] [address] Dr. Bella Jerome EGFR-AF ENGLISH >60 Normal >=60 [facility] Comment on above: Performed By: #### C MP, TSH, LIPID #### [facility] [address] [address] [address] Bella Jerome EGFR-NON AF ENGLISH >60 Normal >=[address] [facility] Comment on above: Performed By: #### C MP, TSH, LIPID #### [facility] [address] [address] [address] Bella Jerome Globulin (S) [Mass/Vol] 3.1 g/dL Normal [facility] Comment on above: Performed By: #### C MP, TSH, LIPID #### [facility] [address] [place] [address] Dr. Bella Jerome Glucose [Mass/Vol] 82 mg/dL Normal 74-106 [facility] Comment on above: Performed By: #### C MP, TSH, LIPID #### [facility] [address] [place] [address] Dr. Bella Jerome Potassium [Moles/Vol] 4.0 mmol/L Normal 3.5-5.[address] [facility] Comment on above: Performed By: #### C MP, TSH, LIPID #### [facility] [address] [place] [address] Dr. Bella Jerome Protein [Mass/Vol] 7.2 g/dL Normal 6.4-8.2 [facility] Comment on above: Performed By: #### C MP, TSH, LIPID #### [facility] [address] [place] [address] Dr. Bella Jerome Sodium [Moles/Vol] 138 mmol/L Normal 136-145 [facility] Comment on above: Performed By: #### C MP, TSH, LIPID #### [facility] [address] [place] [address] Dr. Bella Jerome Urea nitrogen [Mass/Vol] 14.0 mg/dL Normal 7.0-18.[address] [facility] Comment on above: Performed By: #### C MP, TSH, LIPID #### [facility] [address] [place] [address] Dr. Bella Jerome Urea nitrogen/Creatinine [Mass ratio] 25.5 mg/mg Normal [facility] Comment on above: Performed By: #### C MP, TSH, LIPID #### [facility] [address] [place] [address] Dr. Bella Jerome TSHon 12-26-2022 TSH 0.224 uIU/mL Critically low 0.358-3.740 [facility] Comment on above: Performed By: #### C MP, TSH, LIPID #### [facility] [address] [place] [address] Dr. Bella Jerome VIT B12 AND FOLATEon 023 Cobalamin (Vitamin B12) [Mass/Vol] 702.0 pg/mL Normal 193.0-986.[address] [facility] Comment on above: Performed By: #### F T4, VITAD, B12FOL, IRON ####[facility] [address] [place] [phone] Jerome FOLATE 25.10 ng/mL Normal 8.60-58.[address] [facility] Comment on above: Performed By: #### F T4, VITAD, B12FOL, IRON ####[facility] [address] [place] [phone] Jerome VITAMIN D 25 OHon 12-26-2022 VIT D 25-OH 25.4 ng/mL Normal [facility] Comment on above: Performed By: #### F T4, VITAD, B12FOL, IRON ####[facility] [address] [place] [address]DrWill Jerome VIT D RANGES SEE BELOW [facility] Comment on above: Result Comment: <20 ng/mL Vit D deficient 20 - <30 ng/mL Vit D insufficient 30 - 100 ng/mL Vit D sufficient >100 ng/mL Potential Toxicity Performed By: #### F T4, VITAD, B12FOL, IRON ####[facility] [address] [place] [address]DrWill Jerome PAP ACOG PANEL 2: 23 to 31on 12-18-2022 . . Normal [facility] Comment on above: Performed By: #### C BC #### [facility] [address] [place] [address] Dr. Bella Jerome Age Gdln ACOG Testing - Normal [facility] Comment on above: Performed By: #### C BC #### [facility] [address] [place] [address] Dr. Bella Jerome DIAGNOSIS: Comment Normal [facility] Comment on above: Result Comment: NEGA TIVE FOR INTRAEPITHELIAL LESION OR MALIGNANCY. Performed By: #### C BC #### [facility] [address] [place] [address] Dr. Bella Jerome Methodology: Comment Normal [facility] Comment on above: Result Comment: This liquid based ThinPrep(R) pap test was screened with the use of an image guided system. Performed By: #### C BC #### [facility] [address] [place] [address] [address] Bella Jerome Note: Comment Normal [facility] Comment on above: Result Comment: The Pap smear is a screening test designed to aid in the detection of premalignant and malignant conditions of the uterine cervix. It is not a diagnostic procedure and should not be used as the sole means of detecting cervical cancer. Both false-positive and false-negative reports do occur. . Performed By: #### C BC #### [facility] [address] [address] [address] Bella Jerome Performed by: Comment Normal [facility] Comment on above: Result Comment: Byron Irby, [place] [employer] Lieutenant (ASCP) Performed By: #### C BC #### [facility] [address] [place] [address] Dr. Bella Jerome Reflex Criteria: Comment Normal [facility] Comment on above: Result Comment: The HPV DNA reflex criteria were not met with this specimen result therefore, no HPV testing was performed. . Performed By: #### C BC #### [facility] [address] [place] [address] Dr. Bella Jerome Specimen adequacy: Comment Normal [facility] Comment on above: Result Comment: Sati sfactory for evaluation. Endocervical and/or squamous metaplastic cells (endocervical component) are present. Performed By: #### C BC #### [facility] [address] [place] [address] Dr. Bella Jerome CBC W MANUAL DIFFon 09-07-20 22 ATYPICAL LYMPH # Normal [facility] Comment on above: Performed By: #### C BCMAN ####[facility] [address] [place] [address]Dr. Bella Jerome ATYPICAL LYMPH % Normal [facility] Comment on above: Performed By: #### C BCMAN ####[facility] [address] [place] [address]Dr. Bella Jerome BAND # 0.2 103/ul Normal 0.0-0.[address] [facility] Comment on above: Performed By: #### C BCMAN ####[facility] [address] [place] [address]Dr. Bella Jerome BAND % 1 % Normal 0-5 [facility] Comment on above: Performed By: #### C BCMAN ####[facility] [address] [place] [address]Dr. Bella Jerome BASOM # 0.00 103/ul Normal 0.00-0.10 [facility] Comment on above: Performed By: #### C BCMAN ####[facility] [address] [place] [address]Dr. Bella Jerome BASOM % 0.0 % Critically low 0.2-2.0 [facility] Comment on above: Performed By: #### C BCMAN ####[facility] [address] [place], [place] [address]Dr. Bella Jerome BLAST # Normal [facility] Comment on above: Performed By: #### C BCRELL ####[facility] [address] [place], [place] [address]Dr. Yiwally Jerome BLAST % Normal [facility] Comment on above: Performed By: #### C BCRELL ####[facility] [address] [place], [place] [address]Dr. Bella Jerome CORRECTED WBC Normal 4.0-11.0 [facility] Comment on above: Performed By: #### C BCRELL ####[facility] [address] [place], [place] [address]Dr. Bella Jerome EOS # 0.00 103/ul Normal 0.00-0.70 [facility] Comment on above: Performed By: #### C BCRELL ####[facility] [address] [place] [address]Dr. Bella Jerome EOS% 0.0 % Critically low 0.9-7.0 [facility] Comment on above: Performed By: #### C BCMAN ####[facility] [address] [place] [address]Dr. Bella Jerome HCT 30.5 % Critically low 36.0-48.0 [facility] Comment on above: Performed By: #### C BCMAN ####[facility] [address] [place], [place] [address]We. Bella Jerome HGB 10.5 g/dl Critically low 12.0-16.0 [facility] Comment on above: Performed By: #### C PEDRO ####[facility] [address] [place], [place] [address]Hu. Bella Jerome LYMPHM # 2.78 103/ul Normal 1.20-3.[address] [facility] Comment on above: Performed By: #### C PEDRO ####[facility] [address] [place], [place] [address]Lo. Bella Jerome LYMPHM% 13.0 % Critically low 20.5-60.0 [facility] Comment on above: Performed By: #### C PEDRO ####[facility] [address] [place], [place] [address]Jw. Bella Jerome MCH 32.8 pg Normal 26.7-34.[address] [facility] Comment on above: Performed By: #### Jennifer VASQUEZ ####[facility] [address] [place] [phone]. Bella Jerome MCHC 34.4 g/dl Normal 29.9-35.2 [facility] Comment on above: Performed By: #### C PEDRO ####[facility] [address] [place], [place] [address]Vg. Bella Jerome MCV 95.3 fL Normal 81.0-99.0 [facility] Comment on above: Performed By: #### Jennifer VASQUEZ ####[facility] [address] [place], [place] [address]Ii. Bella Jerome METAMYELOCYTE # Normal [facility] Comment on above: Performed By: #### C PEDRO ####[facility] [address] [place], [place] [address]An. Bella Jerome METAMYELOCYTE % Normal [facility] Comment on above: Performed By: #### Jennifer VASQUEZ ####[facility] [address] [place] [phone]. Bella Jerome MONOM# 2.35 103/ul Critically high 0.30-0.80 [facility] Comment on above: Performed By: #### C PEDRO ####[facility] [address]neaw[address] [place] [phone]. Bella Justus MONOM% 11.0 % Normal 1.7-12.[address] [facility] Comment on above: Performed By: #### C PEDRO ####[facility] [address] [place] [phone]. Bella Justus MPV 11.1 fL Normal 9.5-13.[address] [facility] Comment on above: Performed By: #### C PEDRO ####[facility] [address] [place] [address]Dr. Bella Justus MYELOCYTE # Normal [facility] Comment on above: Performed By: #### C PEDRO ####[facility] [address] [place] [phone]. Bella Jerome MYELOCYTE % Normal [facility] Comment on above: Performed By: #### C PEDRO ####[facility] [address] [place] [phone]. Bella Justus NRBC Normal [facility] Comment on above: Performed By: #### C PEDRO ####[facility] [address] [place] [phone]. Liwally Justus PLT 227 103/ul Normal 150-450 [facility] Comment on above: Performed By: #### C PEDRO ####[facility] [address] [place] [phone]. Bella Jerome RBC 3.20 106/ul Critically low 4.20-5.40 [facility] Comment on above: Performed By: #### C PEDRO ####[facility] [address] [place], [place] [address]Dr. Liwally Justus RDW 12.8 % Normal 11.0-15.[address] [facility] Comment on above: Performed By: #### C PEDRO ####[facility] [address] [place], [place] [address]Dr. Bella Jerome SEG # 16.05 103/ul Critically high 1.40-6.50 [facility] Comment on above: Performed By: #### C BCMAN ####[facility] [address] [place] [address]Dr. Bella Jerome SEG % 75.0 % Normal 43.0-75.[address] [facility] Comment on above: Performed By: #### C BCMAN ####[facility] [address] [place] [address]Dr. Bella Jerome WBC 21.4 103/ul Critically high 4.0-11.0 [facility] Comment on above: Performed By: #### C BCMAN ####[facility] [address] [place] [address]Dr. Bella Jerome CBC AUTO DIFFon 09-05-2022 BASO # 0.0 103/ul Normal 0.0-0.[address] [facility] Comment on above: Performed By: #### C BC #### [facility] [address] [place] [address] Dr. Bella Jerome Basophils/100 WBC (Bld) 0.2 % Normal 0.2-2.[address] [facility] Comment on above: Performed By: #### C BC #### [facility] [address] [place] [address] Dr. Bella Jerome EO # 0.1 103/ul Normal 0.0-0.[address] [facility] Comment on above: Performed By: #### C BC #### [facility] [address] [place] [address] Dr. Bella Jerome Eosinophils/100 WBC (Bld) 0.6 % Critically low 0.9-7.[address] [facility] Comment on above: Performed By: #### C BC #### [facility] [address] [place] [address] Dr. Bella Jerome Erythrocyte distribution width (RBC) [Ratio] 12.6 % Normal 11.0-15.[address] [facility] Comment on above: Performed By: #### C BC #### [facility] [address] [place] [address] Dr. Bella Jerome Hematocrit (Bld) [Volume fraction] 32.5 % Critically low 36.0-48.[address] [facility] Comment on above: Performed By: #### C BC #### [facility] [address] [place] [address] Dr. Bella Jerome Hemoglobin (Bld) [Mass/Vol] 11.1 g/dL Critically low 12.0-16.[address] [facility] Comment on above: Performed By: #### C BC #### [facility] [address] [address] [address] Bella Jerome IG # 0.14 10e3/ul Critically high 0.00-0.03 [facility] Comment on above: Performed By: #### C BC #### [facility] [address] [place] [address] Dr. Bella Jerome IG % 1.1 % Critically high 0.0-0.5 [facility] Comment on above: Performed By: #### C BC #### [facility] [address] [place] [address] Dr. Bella Jerome LYMPH # 2.6 103/ul Normal 1.2-3.[address] [facility] Comment on above: Performed By: #### C BC #### [facility] [address] [place] [address] Dr. Bella Jerome Lymphocytes/100 WBC (Bld) 20.2 % Critically low 20.5-60.[address] [facility] Comment on above: Performed By: #### C BC #### [facility] [address] [place] [address] Dr. Bella Jerome MANUAL DIFF REQ NO Normal [facility] Comment on above: Performed By: #### C BC #### [facility] [address] [address] [address] Bella Jerome MCH (RBC) [Entitic mass] 32.2 pg Normal 26.7-34.[address] [facility] Comment on above: Performed By: #### C BC #### [facility] [address] [place] [address] Dr. Bella Jerome MCHC (RBC) [Mass/Vol] 34.2 g/dL Normal 29.9-35.[address] [facility] Comment on above: Performed By: #### C BC #### [facility] [address] [place] [address] Dr. Bella Jerome MCV (RBC) [Entitic vol] 94.2 fL Normal 81.0-99.[address] [facility] Comment on above: Performed By: #### C BC #### [facility] [address] [place] [address] Dr. Bella Jerome MONO # 0.9 103/ul Critically high 0.3-0.8 [facility] Comment on above: Performed By: #### C BC #### [facility] [address] [place] [address] Dr. Bella Jerome Monocytes/100 WBC (Bld) 7.1 % Normal 1.7-12.[address] [facility] Comment on above: Performed By: #### C BC #### [facility] [address] [place] [address] Dr. Bella Jerome NEUT # 8.9 103/ul Critically high 1.4-6.5 [facility] Comment on above: Performed By: #### C BC #### [facility] [address] [place] [address] Dr. Bella Jerome Neutrophils/100 WBC (Bld) 70.8 % Normal 43.0-75.[address] [facility] Comment on above: Performed By: #### C BC #### [facility] [address] [place] [address] Dr. Bella Jerome Platelet mean volume (Bld) [Entitic vol] 11.0 fL Normal 9.5-13.5 [facility] Comment on above: Performed By: #### C BC #### [facility] [address] [place] [address] Dr. Bella Jerome PLT 234 103/ul Normal 150-450 [facility] Comment on above: Performed By: #### C BC #### [facility] [address] [place] [address] Dr. Bella Jerome RBC 3.45 106/ul Critically low 4.20-5.40 [facility] Comment on above: Performed By: #### C BC #### [facility] [address] [place], [place] [address] Dr. Bella Jerome WBC 12.6 103/ul Critically high 4.0-11.0 [facility] Comment on above: Performed By: #### C BC #### [facility] [address] [place], [place] [address] Dr. Bella Jerome Covid-19 PCR ([facility])on SARS-CoV-2 (COVID-19) RNA FAVIAN+probe Ql (Unsp spec) Not detected Normal NOT DETECTED [facility] Comment on above: Result Comment: [...] for this test is supported by the [place] of Health and Human Service's declaration that [...] be used). Performed By: #### C VDTBH ####[facility] [address] [place], [place] [address]Jl. Bella Jerome DRUG SCREEN RAPID (URINE)on 09-05-2022 AMP Negative Normal NEGATIVE [facility] Comment on above: Performed By: #### D RUGRPD ####[facility] [address] [place] [phone]. Bella Jerome BAR Negative Normal NEGATIVE [facility] Comment on above: Performed By: #### D RUGRPD ####[facility] [address] [place] [phone] Jerome BUP Negative Normal NEGATIVE [facility] Comment on above: Performed By: #### D RUGRPD ####[facility] [address] [place] [phone]. Bella Jerome BZO Negative Normal NEGATIVE [facility] Comment on above: Performed By: #### D RUGRPD ####[facility] [address] [place] [phone]. Bella Jerome NGA Negative Normal NEGATIVE [facility] Comment on above: Performed By: #### D RUGRPD ####[facility] [address] [place], [place] [address]Dr. Bella Jerome CUT-OFFS SEE BELOW Normal [facility] Comment on above: Result Comment: AMP (Amphetamine): 500ng/mL, BAR (Barbituates): 200 ng/mL, BZO (Benzodiazepines): 150 ng/mL, BUP (Buprenorphine): 10 ng/mL, NGA (Cocaine): 150 ng/mL, mAMP (Methamphetamine): 500 ng/mL, MTD (Methadone): 200 ng/mL, OPI (Opiates): 100 ng/mL, OXY (Oxycodone): 100 ng/mL, PCP (Phencyclidine): 25 ng/mL, PPX (Propoxyphene): 300 ng/mL, THC (Cannabinoids): 50 ng/mL, TCA (Trycyclic Antidepressants): 300 ng/mL Performed By: #### D RUGRPD ####[facility] [address] [place], [place] [address]Dr. Bella Jerome DRUG CUT HEADER DRUG CLASS TEST SYSTEM CUT-OFF CONCENTRATIONS ARE FOLLOWS: Normal [facility] Comment on above: Performed By: #### D RUGRPD ####[facility] [address] [place] [phone]. Bella Jerome mAMP Negative Normal NEGATIVE [facility] Comment on above: Performed By: #### D RUGRPD ####[facility] [address] [place] [phone]. Bella Jerome MTD Negative Normal NEGATIVE [facility] Comment on above: Performed By: #### D RUGRPD ####[facility] [address] [place] [phone]. Bella Jerome OPI Negative Normal NEGATIVE [facility] Comment on above: Performed By: #### D RUGRPD ####[facility] [address] [place] [phone]. Yiwally Jerome OXY Negative Normal NEGATIVE [facility] Comment on above: Performed By: #### D RUGRPD ####[facility] [address] [place] [phone]. Bella Jerome PCP Negative Normal NEGATIVE [facility] Comment on above: Performed By: #### D RUGRPD ####[facility] [address] [place] [address]Dr. Bella Jerome PPX Negative Normal NEGATIVE [facility] Comment on above: Performed By: #### D RUGRPD ####[facility] [address] [place] [address]Dr. Bella Jerome TCA Negative Normal NEGATIVE [facility] Comment on above: Performed By: #### D RUGRPD ####[facility] [address] [place], [place] [address]Dr. Bella Jerome THC Negative Normal NEGATIVE [facility] Comment on above: Performed By: #### D RUGRPD ####[facility] [address] [place] [address]Dr. Bella Jerome TYPE AND SCREENon 09-05-2022 TYPE AND SCREEN Negative Normal [facility] Comment on above: Performed By: #### T NS ####[facility] [address] [place], [place] [address]Dr. Bella Jerome US PREG BIOPHY W NON [...] by: MANUELITO GREGG Date: 2022-08-31 17:[address] [facility] US PREG GROWTHon 08-30-2022 US PREG [...] by: MANUELITO GREGG Date: 2022-08-30 17:[address] [facility] US PREG BIOPHY W NON STRESSo [...] by: MANUELITO GREGG Date: 2022-08-24 17:[address] [facility] FREE T4on 08-21-2022 Free T4 [Mass/Vol] 0.90 ng/dL Normal 0.76-1.46 [facility] Comment on above: Performed By: #### C BC #### [facility] [address] [place] [address] [address] Bella Jerome TSHon 08-21-2022 TSH 1.033 uIU/mL Normal 0.358-3.740 [facility] Comment on above: Performed By: #### H H #### [facility] [address] [place] [address] [address] Bella Jerome PREG BIOPHY W NON [...] biophysical profile score: 8.0 Electronically authenticated by: MANUEILTO GREGG Date: 2022-08-17 18:[address] [facility] GROUP B STREP CULTUREon 07-28 S. agalactiae Ag Ql (Unsp spec) Culture Observations: NEGATIVE FOR GROUP B STREPTOCOCCUS. Normal [facility] Comment on above: Performed By: #### G BSCX ####[facility] [address] [place] [address]Dr. Bella Jerome PREG BIOPHY W NON STRESSo [...] by: MANUELITO GREGG Date: 2022-08-10 16:[address] [facility] US PREG GROWTHon 08-10-2022 US PREG [...] by: MANUELITO GREGG Date: 2022-08-10 16:[address] [facility] US PREG GROWTHon 07-25-2022 US PREG [...] by: MANUELITO GREGG Date: 2022-07-25 18:[address] [facility] FREE T4on 07-24-2022 Free T4 [Mass/Vol] 0.98 ng/dL Normal 0.76-1.46 [facility] Comment on above: Performed By: #### F T4 #### [facility] [address] [place] [address] [address] Bella Jerome TSHon 07-24-2022 TSH 1.196 uIU/mL Normal 0.358-3.740 [facility] Comment on above: Performed By: #### T SH ####[facility] [address] [place], [place] [address]Dr. Bella Jerome UA (CLEAN/CATCH) [employer] DRIVER/MICRO I F IND.on 07-20-2022 Bilirubin Ql (U) Negative Normal NEGATIVE [facility] Comment on above: Performed By: #### H H #### [facility] [address] [place] [address] Dr. Bella Jerome Clarity (U) CLEAR Normal CLEAR [facility] Comment on above: Performed By: #### H H #### [facility] [address] [place] [address] Dr. Bella Jerome Color (U) LT. YELLOW Normal YELLOW [facility] Comment on above: Performed By: #### H H #### [facility] [address] [place] [address] Dr. Bella Jerome Glucose Ql (U) Negative Normal NEGATIVE [facility] Comment on above: Performed By: #### H H #### [facility] [address] [place] [address] Dr. Bella Jerome Hemoglobin Ql (U) Negative Normal NEGATIVE [facility] Comment on above: Performed By: #### H H #### [facility] [address] [place] [address] Dr. Bella Jerome Ketones Ql (U) Negative Normal NEGATIVE [facility] Comment on above: Performed By: #### H H #### [facility] [address] [place] [address] Dr. Bella Jerome LEUKOCYTES Negative Normal NEGATIVE [facility] Comment on above: Performed By: #### H H #### [facility] [address] [place] [address] Dr. Bella Jerome Nitrite Ql (U) Negative Normal NEGATIVE [facility] Comment on above: Performed By: #### H H #### [facility] [address] [place] [address] Dr. Bella Jerome pH (U) 7.0 [pH] Normal 5-[address] [facility] Comment on above: Performed By: #### H H #### [facility] [address] [place] [address] Dr. Bella Jerome SPEC GRAVITY <=1.005 Abnormal 1.005-<=1.025 [facility] Comment on above: Performed By: #### H H #### [facility] [address] [place] [address] Dr. Bella Jerome UA PROTEIN Negative Normal NEGATIVE/ TRACE [facility] Comment on above: Performed By: #### H H #### [facility] [address] [place] [address] Dr. Bella Jerome UR MICRO IND NOT INDICATED Normal [facility] Comment on above: Performed By: #### H H #### [facility] [address] [place] [address] Dr. Bella Jerome Urobilinogen Qn (U) 0.2 {Kimberlee'U}/dL Normal 0.2 - 1. [address] [facility] Comment on above: Performed By: #### H H #### [facility] [address] [place] [address] Dr. Bella Jerome US PREG GROWTHon 06-27-2022 [...] by: RAGINI SANTOS Date: 2022-06-27 16:[address] [facility] FREE T4on 06-20-2022 Free T4 [Mass/Vol] 0.82 ng/dL Normal 0.76-1.46 [facility] Comment on above: Performed By: #### H H #### [facility] [address] [place] [address] Dr. Bella Jerome GLUCOSE - 1HRon 06-20-2022 Glucose [Mass/Vol] 127 mg/dL Critically high 74-[address] [facility] Comment on above: Performed By: #### H H #### [facility] [address] [address] [address] Bella Jerome HEMOGRAM AND PLATELon 2021 Hematocrit (Bld) [Volume fraction] 32.4 % Critically low 36.0-48.[address] [facility] Comment on above: Performed By: #### H H #### [facility] [address] [address] [address] Bella Jerome Hemoglobin (Bld) [Mass/Vol] 10.9 g/dL Critically low 12.0-16.[address] [facility] Comment on above: Performed By: #### H H #### [facility] [address] [address] [address] Bella Jerome MCH (RBC) [Entitic mass] 32.9 pg Normal 26.7-34.[address] [facility] Comment on above: Performed By: #### H H #### [facility] [address] [place] [address] Dr. Bella Jerome MCHC (RBC) [Mass/Vol] 33.6 g/dL Normal 29.9-35.[address] [facility] Comment on above: Performed By: #### H H #### [facility] [address] [address] [address] Bella Jerome MCV (RBC) [Entitic vol] 97.9 fL Normal 81.0-99.[address] [facility] Comment on above: Performed By: #### H H #### [facility] [address] [address] [address] Bella Jerome PLT 241 103/ul Normal 150-[address] [facility] Comment on above: Performed By: #### H H #### [facility] [address] [address] [address] Bella Jerome RBC 3.31 106/ul Critically low 4.20-5.40 [facility] Comment on above: Performed By: #### H H #### [facility] [address] [address] [address] Bella Jerome WBC 11.3 103/ul Critically high 4.0-11.0 [facility] Comment on above: Performed By: #### H H #### [facility] [address] [address] [address] Bella Jerome TSHon 06-20-2022 TSH 3.044 uIU/mL Normal 0.358-3.740 [facility] Comment on above: Performed By: #### C BC #### [facility] [address] [place] [address] Dr. Bella Jerome US PREG INCOMPLETE ANATOMYon 05-24-2022 US PREG INCOMPLETE ANATOMY EXAMINATION: US PREG INCOMPLETE ANATOMY HISTORY: screening COMPARISON: Ultrasound anatomy 04/26/2022 FINDINGS: Presentation: Cephalic Heart rate: 154 bpm Anatomy: Cervical, thoracic, and lumbar spine HERNANDO: 09/13/2022 IMPRESSION: 1. Adequate visualization of the cervical, thoracic, and lumbar spine; no appreciable abnormality. Electronically authenticated by: RAGINI SANTOS Date: 2022-05-24 17:33 Normal [facility] US PREG ANATOMY SINGLEon US [...] MANUELITO GREGG Date: 2022-04-26 16:54 Normal [facility] CHLAMYDIA/GONOCOCCUS FAVIAN (SW AB/URINE/PAPon 04-19-2022 Chlamydia trachomatis, FAVIAN Negative Normal Negative [facility] Comment on above: Performed By: #### C T/NGNA ####[facility] [address] [address]DrWill Jerome Neisseria gonorrhoeae, FAVIAN Negative Normal Negative [facility] Comment on above: Performed By: #### C T/NGNA ####[facility] [address] [place], [place] [address]PdWill Jerome VAGINITIS/VAGINOSIS DNA PROB Leonid 04-18-2022 Jessica species Negative Normal Negative [facility] Comment on above: Performed By: #### H H #### [facility] [address] [place] [address] Dr. Bella Jerome Gardnerella vaginalis Negative Normal Negative [facility] Comment on above: Performed By: #### H H #### [facility] [address] [place] [address] Dr. Bella Jerome Trichomonas vaginalis Negative Normal Negative [facility] Comment on above: Performed By: #### H H #### [facility] [address] [place] [address] Dr. Bella Jerome FREE T4on 04-05-2022 Free T4 [Mass/Vol] 0.88 ng/dL Normal 0.76-1.46 [facility] Comment on above: Performed By: #### F T4 #### [facility] [address] [place] [address] Dr. Bella Jerome TSHon 04-05-2022 TSH 1.786 uIU/mL Normal 0.358-3.740 [facility] Comment on above: Performed By: #### T SH ####[facility] [address] [place], [place] [address]Dr. Bella Jerome TSH RANGE SEE BELOW Normal [facility] Comment on above: Result Comment: <0.3 4 UIU/ml HYPERTHYROID 0.34-5.60 UIU/ml EUTHYROID >5.60 UIU/ml HYPOTHYROID Performed By: #### T SH ####[facility] [address] [address]Dr. Bella Jerome FREE T4on 02-26-2022 Free T4 [Mass/Vol] 1.06 ng/dL Normal 0.76-1.46 [facility] Comment on above: Performed By: #### C BC #### [facility] [address] [place] [address] Dr. Bella Jerome TSHon 02-26-2022 TSH 2.024 uIU/mL Normal 0.470-4.680 [facility] Comment on above: Performed By: #### C BC #### [facility] [address] [place], [place] [address] Dr. Bella Jerome TSH RANGE SEE BELOW Normal [facility] Comment on above: Result Comment: <0.3 4 UIU/ml HYPERTHYROID 0.34-5.60 UIU/ml EUTHYROID >5.60 UIU/ml HYPOTHYROID Performed By: #### C BC #### [facility] [address] [address] [address] Bella Jerome Vital Signs Date Time Vital Sign Value Performing Clinician Facility 08-04-2024 13:30-0400 Body mass index (BMI) [Ratio] 44.37 kg/m2 Marylou CARBAJAL Work Phone: [facility] 08-04-2024 13:30-0400 Body weight 113.63 kg Marylou CARBAJAL Work Phone: [facility] 08-04-2024 13:30-0400 Diastolic blood pressure 78 mm[Hg] Marylou CARBAJAL Work Phone: [facility] 08-04-2024 13:30-0400 Systolic blood pressure 128 mm[Hg] Marylou CARBAJAL Work Phone: [facility] 02-13-2024 11:24-0400 Body height 160.02 cm [facility] 02-13-2024 11:24-0400 Body mass index (BMI) [Ratio] 42.3 kg/m2 [facility] 02-13-2024 11:24-0400 Body weight 108.49 kg [facility] 02-13-2024 11:24-0400 Diastolic blood pressure 70 mm[Hg] [facility] 02-13-2024 11:24-0400 Heart rate 69 /min [facility] 02-13-2024 11:24-0400 Respiratory rate 18 /min [facility] 02-13-2024 11:24-0400 SaO2% (BldA) [Mass fraction] 98 % [facility] 02-13-2024 11:24-0400 Systolic blood pressure 118 mm[Hg] [facility] 10-31-2023 15:00-0500 Body height 160.02 cm Sandra Austin Other [employer] Other 10-31-2023 15:00-0500 Body mass index (BMI) [Ratio] 45.41 kg/m2 Sandra Geovanna Other [employer] Other 10-31-2023 15:00-0500 Body temperature 98.5 [degF] Sandra Austin Other [employer] Other 10-31-2023 15:00-0500 Body weight 116.3 kg Sandra Geovanna Other [employer] Other 10-31-2023 15:00-0500 Diastolic blood pressure 80 mm[Hg] Sandra Austin Other [employer] Other 10-31-2023 15:00-0500 Respiratory rate 18 /min Sandra Geovanna Other [employer] Other 10-31-2023 15:00-0500 SaO2% (BldA) [Mass fraction] 98 % Sandra Austin Other [employer] Other 10-31-2023 15:00-0500 Systolic blood pressure 128 mm[Hg] Sandra Austin Other [employer] Other 06-24-2023 14:30-0400 Body height 160.02 cm Sandra Austin Other [employer] Other 06-24-2023 14:30-0400 Body mass index (BMI) [Ratio] 44.87 kg/m2 Sandra Austin Other [employer] Other 06-24-2023 14:30-0400 Body weight 114.9 kg Sandra Geovanna Other [employer] Other 06-24-2023 14:30-0400 Diastolic blood pressure 60 mm[Hg] Sandra Geovanna Other [employer] Other 06-24-2023 14:30-0400 Respiratory rate 18 /min Sandra Geovanna Other [employer] Other 06-24-2023 14:30-0400 SaO2% (BldA) [Mass fraction] 99 % Sandra Geovanna Other [employer] Other 06-24-2023 14:30-0400 Systolic blood pressure 110 mm[Hg] Sandra Austin Other [employer] Other 04-15-2023 09:25-0400 Body height 160.02 cm Ramonita Yari Other [employer] Other 04-15-2023 09:25-0400 Body mass index (BMI) [Ratio] 41.8 kg/m2 Ramonita Yari Other [employer] Other 04-15-2023 09:25-0400 Body temperature 98.5 [degF] Ramonita Yari Other [employer] Other 04-15-2023 09:25-0400 Body weight 107.05 kg Ramonita Yari Other [employer] Other 04-15-2023 09:25-0400 Respiratory rate 18 /min Ramonita Yari Other [employer] Other 04-15-2023 09:25-0400 SaO2% (BldA) [Mass fraction] 97 % Ramonita Greenberg Other [employer] Other 02-21-2023 14:45-0400 Body height 160.02 cm Sandra Austin Other [employer] Other 02-21-2023 14:45-0400 Body mass index (BMI) [Ratio] 41.39 kg/m2 Sandra Austin Other [employer] Other 02-21-2023 14:45-0400 Body weight 106.01 kg Sandra Austin Other [employer] Other 02-21-2023 14:45-0400 Diastolic blood pressure 60 mm[Hg] Sandra Austin Other [employer] Other 02-21-2023 14:45-0400 Respiratory rate 18 /min Sandra Austin Other [employer] Other 02-21-2023 14:45-0400 SaO2% (BldA) [Mass fraction] 98 % Sandra Austin Other [employer] Other 02-21-2023 14:45-0400 Systolic blood pressure 110 mm[Hg] Sandra Austin Other [employer] Other 12-24-2022 14:30-0500 Body height 160.02 cm Sandra Austin Other [employer] Other 12-24-2022 14:30-0500 Body mass index (BMI) [Ratio] 40.83 kg/m2 Sandra Geovanna Other [employer] Other 12-24-2022 14:30-0500 Body weight 104.55 kg Sandra Geovanna Other [employer] Other 12-24-2022 14:30-0500 Diastolic blood pressure 70 mm[Hg] Sandra Austin Other [employer] Other 12-24-2022 14:30-0500 Respiratory rate 18 /min Sandra Geovanna Other [employer] Other 12-24-2022 14:30-0500 SaO2% (BldA) [Mass fraction] 99 % Sandra Geovanna Other [employer] Other 12-24-2022 14:30-0500 Systolic blood pressure 118 mm[Hg] Sandra Geovanna Other [employer] Other 12-21-2021 16:30-0500 Body height 160.02 cm Sandra Geovanna Other [employer] Other 12-21-2021 16:30-0500 Body mass index (BMI) [Ratio] 38.58 kg/m2 Sandra Geovanna Other [employer] Other 12-21-2021 16:30-0500 Body temperature 97.3 [degF] Sandra Austin Other [employer] Other 12-21-2021 16:30-0500 Body weight 98.79 kg Sandra Austin Other [employer] Other 12-21-2021 16:30-0500 Diastolic blood pressure 60 mm[Hg] Sandra Geovanna Other [employer] Other 12-21-2021 16:30-0500 Respiratory rate 18 /min Sandra Geovanna Other [employer] Other 12-21-2021 16:30-0500 SaO2% (BldA) [Mass fraction] 99 % Sandra Geovanna Other [employer] Other 12-21-2021 16:30-0500 Systolic blood pressure 118 mm[Hg] Sandra Geovanna Other [employer] Other Encounters Encounter Date Encounter Type Care Provider Facility Start: 08-04-2024 End: 08-04-2024 Bamboo flowsheet Marylou CARBAJAL Work Phone: [facility] Start: 08-04-2024 End: 08-04-2024 Bamboo flowsheet Marylou CARBAJAL Work Phone: [facility] Start: 08-04-2024 End: 08-04-2024 ambulatory MARYLOU PRIEST Not Available Start: 08-04-2024 End: 08-04-2024 flow sheet Marylou CARBAJAL Work Phone: [facility] Comment on above: 32 weeks gestation o f ; Third trimester ; Anxiety, generalized (CMS/HCC) Start: 07-21-2024 End: 07-21-2024 ambulatory AGSU HANSA Not Available Start: 07-07-2024 End: 07-07-2024 ambulatory AGUS HANSA Not Available Start: 2024 End: 2024 ambulatory AGUS HANSA Not Available Start: 05-12-2024 End: 05-12-2024 ambulatory MARYLOU CEM Not Available Start: 04-16-2024 End: 04-16-2024 ambulatory AGUS HANSA Not Available Start: 03-17-2024 End: 03-17-2024 ambulatory AGUS HANSA Not Available Start: 02-14-2024 End: 02-14-2024 ambulatory MARYLOU PRIEST Not Available Start: 02-13-2024 End: 02-13-[address] [facility] Work Phone: Start: 02-13-2024 End: 02-13-2024 Patient encounter procedure [facility] [place] Work Phone: Start: 12-16-2023 Non-patient / Non-visit [facility] [employer] Work Phone: Start: 12-16-2023 End: 12-16-2023 ambulatory AGUS HANSA Not Available Start: 10-31-2023 End: 10-31-2023 ambulatory Sandra Austin Other [employer] Other Start: 10-31-2023 Office outpatient vi sit 25 minutes Sandra Austin [facility] [place] Start: 07-19-2023 End: 07-19-2023 ambulatory Sandra Austin Other [employer] Other Start: 07-19-2023 Telephone encounter Sandra Guevara [facility] Start: 06-24-2023 End: 06-24-2023 ambulatory Sandra Austin Other [employer] Other Start: 06-24-2023 Office outpatient vi sit 25 minutes Sandra Austin [facility] [place] Start: 06-04-2023 End: 06-04-2023 ambulatory Sandra Austin Other [employer] Other Start: 06-04-2023 Telephone encounter Sandra Guevara [facility] Start: 04-15-2023 End: 04-15-2023 ambulatory Ramonita Greenberg Other [employer] Other Start: 04-15-2023 Office outpatient vi sit 15 minutes Ramonita Greenberg [facility] [place] Start: 04-11-2023 End: 04-11-2023 ambulatory Sandra Austin Other [employer] Other Start: 04-11-2023 Telephone encounter Sandra Guevara [facility] Start: 02-21-2023 Office outpatient vi sit 25 minutes Sandra Austin [facility] Start: 02-21-2023 End: 02-22-2023 ambulatory SANDRA AUSTIN [employer] Other Start: 01-04-2023 End: 01-04-2023 ambulatory Sandra Austin Other [employer] Other Start: 01-04-2023 Telephone encounter Sandra Guevara [facility] Start: 12-30-2022 Encounter for genera l adult medical examination without abnormal findings SANDRA AUSTIN [facility] Start: 12-27-2022 End: 12-27-2022 ambulatory Sandra Austin Other [employer] Other Start: 12-27-2022 Telephone encounter Sandra Guevara [facility] Start: 12-26-2022 End: 12-27-2022 ambulatory SANDRA AUSTIN Facility:[facility] Start: 12-26-2022 End: 12-27-2022 Encounter for general adult medical examination without abnormal findings SANDRA AUSTIN Facility:[facility] Start: 12-24-2022 End: 12-24-2022 ambulatory Sandra Austin Other [employer] Other Start: 12-24-2022 Encounter for genera l adult medical examination without abnormal findings Sandra Austin [facility] [place] Start: 12-24-2022 Periodic preventive med est patient 18-39 yrs Sandra Austin [facility] Start: 12-10-2022 End: 12-10-[address] AGUS [...] 12-21-2021 End: 12-21-2021 ambulatory Sandra Geovanna Other [facility] [employer] Other Start: 12-21-2021 Office outpatient ne w 45 minutes Sandra Austin [facility] [place] Procedures Date Procedure Procedure Detail Performing Clinician [...] Hormone into Peripheral Vein, Percutaneous Approach SANDRA ASUTIN Start: 09-06-2022 Repair Perineum Musc le, Open Approach SANDRA AUSTIN Plan of Treatment Date Care Activity Detail Author Start: 12-17-2024 End: 12-17-2024 Patient encounter procedure 12/17/2024 8:30 AM EST Office Visit [facility] [address] [place] [id number] Agus Juárez, DO [address] [place] [address] [facility] Start: 08-18-2024 End: 08-18-2024 Patient encounter procedure 08/18/2024 1:30 PM EDT Routine [facility] [address] [place] [id number] Agus Juárez, DO [address] [place] [address] [facility] Start: 08-18-2024 End: 08-18-2024 Professional / ancillary services management 08/18/2024 1:00 PM EDT Ancillary Procedure [facility] [address] [place] [address] [facility] Patient Education Low back pain in adults [facility] Work Phone: Immunizations Immunization Date Immunization Notes Care Provider Fa cility 09-08-2022 diphtheria, tetanus toxoids and pertussis vaccine Marylou CARBAJAL Work Phone: [facility] 09-12-2021 pneumococcal conjuga te vaccine, 13 valent Marylou CARBAJAL Work Phone: [facility] 08-14-1999 diphtheria, tetanus toxoids and acellular pertussis vaccine, unspecified formulation Marylou CARBAJAL Work Phone: [facility] 08-14-1999 haemophilus influenz ae type b vaccine, HbOC conjugate Marylou CARBAJAL Work Phone: [facility] 08-14-1999 measles, mumps and rubella virus vaccine Marylou CARBAJAL Work Phone: [facility] 08-14-1999 trivalent poliovirus vaccine, live, oral Marylou CARBAJAL Work Phone: [facility] 04-27-1998 diphtheria, tetanus toxoids and acellular pertussis vaccine, unspecified formulation Marylou CARBAJAL Work Phone: [facility] 04-27-1998 haemophilus influenz ae type b conjugate and Hepatitis B vaccine Marylou CARBAJAL Work Phone: [facility] 1997 diphtheria, tetanus toxoids and acellular pertussis vaccine, unspecified formulation Marylou CARBAJAL Work Phone: [facility] 1997 haemophilus influenz ae type b vaccine, HbOC conjugate Marylou CARBAJAL Work Phone: [facility] 1997 poliovirus vaccine, inactivated Marylou CARBAJAL Work Phone: [facility] 1997 diphtheria, tetanus toxoids and acellular pertussis vaccine, unspecified formulation Marylou CARBAJAL Work Phone: [facility] 1997 haemophilus influenz ae type b conjugate and Hepatitis B vaccine Marylou CARBAJAL Work Phone: [facility] 1997 poliovirus vaccine, inactivated Marylou CARBAJAL Work Phone: [facility] 1997 hepatitis B vaccine, pediatric or pediatric/adolescent dosage Marylou CARBAJAL Work Phone: [facility] Payers Date Payer Category Payer Unknown [employer] [id number] 2023-Present [address] [place] [address] [id number] 2023 Unknown [id number] 2.16.840.1.704510.19 1997 Unknown [id number] 2.16.840.1.073810.3.579.2. 593 1997 Unknown [id number] 2.16.840.1.759278.3.579.2. 593 1997 Unknown [id number] 2.16.840.1.092754.3.579.2. 593 1997 Unknown [id number] 2.16.840.1.422956.3.579.2. 593 1997 Unknown [id number] 2.16.840.1.656694.3.579.2. 593 1997 Unknown [id number] 2.16.840.1.796510.3.579.2. 593 1997 Unknown [id number] 2.16.840.1.830938.3.579.2. 593 1997 Unknown [id number] 2.16.840.1.563946.3.579.2. 593 1997 Unknown [id number] 2.16.840.1.396013.3.579.2. 593 1997 Unknown [id number] 2.16.840.1.438907.3.579.2. 593 1997 Unknown [id number] 2.16.840.1.599793.3.579.2. 593 1997 Unknown [id number] 2.16.840.1.389579.3.579.2. 593 1997 Unknown [id number] 2.16.840.1.234761.3.579.2. 593 1997 Unknown [id number] 2.16.840.1.430158.3.579.2. 593 1997 Unknown [id number] 2.16.840.1.858555.3.579.2. 593 1997 Unknown [id number] 2.16.840.1.898448.3.579.2. 593 1997 Unknown [id number] 2.16.840.1.313949.3.579.2. 593 1997 Unknown [id number] 2.16.840.1.673070.3.579.2. 593 1997 Unknown [id number] 2.16.840.1.020552.3.579.2. 593 1997 Unknown [id number] 2.16.840.1.451212.3.579.2. 593 1997 Unknown [id number] 2.16.840.1.288404.3.579.2. 593 1997 Unknown [id number] 2.16.840.1.218843.3.579.2. 593 1997 Unknown [id number] 2.16.840.1.481410.3.579.2. 593 1997 Unknown [id number] 2.16.840.1.044778.3.579.2. 1259 1997 Unknown [id number] 2.16.840.1.287186.3.579.2. 9 1997 Unknown [id number] 2.16.840.1.956471.3.579.2. 9 1997 Unknown [id number] 2.16.840.1.235289.3.579.2. 1258 1997 Unknown [id number] 2.16.840.1.336778.3.579.2. 1258 1997 Unknown [id number] 2.16.840.1.316156.3.579.2. 1258 1997 Unknown [id number] 2.16.840.1.150256.3.579.2. 1258 1997 Unknown [id number] 2.16.840.1.944485.3.579.2. 1258 1997 Unknown [id number] 2.16.840.1.853873.3.579.2. 9 1957 Medicaid [id number] 2.16.840.1.635296.19 1957 Private Health Insurance [id number] 2.16.840.1.427025.19 Self-pay Self Pay [id number] Unknown [place] [id number] Social History Date Type Detail Facility Start: 08-02-2023 End: 11-25-2023 Sex Assigned At [facility] [employer] Other Start: 1995 Sex Assigned At Female F [facility] Start: 08-02-2023 [facility] Start: 08-02-2023 Tobacco use and exposure Smokeless tobacco non-user [facility] Start: 07-21-2024 End: 08-04-2024 Alcoholic beverage intake Ex-drinker (finding) [facility] Start: 08-02-2023 End: 11-25-2023 History of Social function [facility] Start: 01-03-2024 [facility] Start: 1995 Sex assigned at Not on file N [facility] Clinical Notes 12-21-2021 to 08-04-2024 SOLOMON Turner [...] before breakfast, Do not crush or chew. [id number] ( 1 + IRON PO) Oral ALLERGIES [...] of: SOLOMON Turner documented in this encounter [facility] 10-31-2023 Evaluation note Encounter Date Diagnosis Assessment [...] E28.2) She will continue to follow with OB-[facility] and continue healthy lifestyle changes that she [...] course of antibiotic. Increase fluids and rest. [id number] antipyretics as needed. Warning signs and symptoms reviewed with patient today. Patient to go immediately to the ER should she experience any of these. Patient to notify office should her symptoms persist and not improve. Patient verbalizes understanding and agrees to treatment plan. [employer] Other 09-22-2023 Evaluation note* Encounter Date Diagnosis Assessment Notes Treatment Notes Treatment Clinical Notes Jun, Vitamin D insufficiency (ICD-10 - E55.9) [employer] Other 08-28-2023 Evaluation note* Encounter Date Diagnosis Assessment Notes Treatment Notes Treatment Clinical Notes May, Prediabetes (ICD-10 - R73.03) Recent lab work reviewed with her from [facility]. In office [id number] shows good control with diet and exercise. Will continue current treatment plan. Patient is advised to work on healthy diet choices and appropriate servings, weight control, regular exercise as directed, reduced fat intake, and salt avoidance. Patient voiced understanding of this and agrees to this plan. May, PCOS (polycystic ovarian syndrome) (ICD-10 - E28.2) She will continue to follow with OB-[employer]UCTION CO[employer]INATION POWER ENGINEER and continue healthy lifestyle changes that she [...] ENT today. Specialty notes reviewed as received. [facility] Other 08-08-2023 Evaluation note* Encounter Date Diagnosis Assessment Notes Treatment Notes Treatment Clinical Notes May, Other atopic dermatitis (ICD-10 - L20.89) May, Acute otitis externa of both ears, unspecified type (ICD-10 - H60.503) [facility] Other 06-19-2023 Evaluation note* Encounter Date Diagnosis [...] no improvement in 2 to 3 days [facility] Other 06-15-2023 Evaluation note* Encounter Date Diagnosis Assessment Notes Treatment Notes Treatment Clinical Notes Mar, Anxiety (ICD-10 - F41.9) [facility] Other 04-27-2023 Evaluation note* Encounter Date Diagnosis [...] plan on rechecking this at May appointment. [facility] Other 03-10-2023 Evaluation note* Encounter Date Diagnosis Assessment Notes Treatment Notes Treatment Clinical Notes Dec, Bacterial conjunctivitis (ICD-10 - H10.9) [facility] Other 03-02-2023 Evaluation note* Encounter Date Diagnosis Assessment Notes Treatment Notes Treatment Clinical Notes Dec, Vitamin D insufficiency (ICD-10 - E55.9) Dec, Elevated alkaline phosphatase level (ICD-10 - R74.8) Dec, Other specified hypothyroidism (ICD-10 - E03.8) [facility] Other 02-27-2023 Evaluation note* Encounter Date Diagnosis [...] ordered. Follow routinely with eye doctor, dentist, [employer]ATION POWER [employer]. Patient is advised to work on healthy diet choices and appropriate servings, weight control, regular exercise as directed, reduced fat intake, and salt avoidance. Patient voiced understanding of this and agrees to this plan. Nov, PCOS (polycystic ovarian syndrome) (ICD-10 - E28.2) Routine lab work ordered. She will continue to follow with OB-[facility]UCTION CO[facility]INATION POWER ENGINEER and continue healthy lifestyle changes that she [...] homicidal ideations. Started on Celexa by her [employer] CO[employer]INATION POWER ENGINEER. Very stable on Celexa 20 mg daily. Our office will take this over. Nov, Severe obesity (BMI >= 40) (ICD-10 - E66.01) Patient is advised to work on healthy diet choices and appropriate servings, weight control, regular exercise as directed, reduced fat intake, and salt avoidance. Patient voiced understanding of this and agrees to this plan. Nov, Other She will uti jarerd Jordan OTC for small effusions to her ears bilaterally. She will notify office should pressure in her ears still persist after starting this. [employer] Other 02-24-2022 Evaluation note* Encounter Date Diagnosis Assessment Notes Treatment Notes Treatment Clinical Notes Nov, Prediabetes (ICD-10 - R73.03) She was recently dx with prediabetes and was started on Metformin 500 mg BID 2 weeks ago by her OB-INDUCTION COORDINATION POWER ENGINEER. She would like to follow with our [...] - E28.2) She is following with her OB-INDUCTION COORDINATION POWER ENGINEER for her PCOS and is currently on Metformin 500 mg BID and is taking medication to help her get . She will continue to follow with OB-INDUCTION COORDINATION POWER ENGINEER and continue healthy lifestyle changes that she [...] of fatigue, difficulty losing weight by her OB-INDUCTION COORDINATION POWER ENGINEER. She would like to start following with [...] of this and agrees to this plan. [employer] Other Evaluation note* Diagnosis Onset Date Resolution Status 8 weeks gestation of acute Low back pain [facility] Work Phone: Evaluation note* Diagnosis 32 weeks gestation of Third trimester state, incidental Anxiety, generalized (CMS/HCC) documented in this encounter [facility] N[facility]ative - Reported* Type Description Date Medical History PCOS Medical History THYROID ISSUES Surgical History THIRD NIPPLE REMOVED Surgical History Colonoscopy-normal 2018 [employer] Other Summary Purpose Family History Relationship Condition [...] DATE CREATED AUTHOR AUTHOR'S ESMER FLORES 08/06/2024 [facility] EPIC Care Teams (unrecognized [...] February 13, 2024 End: February 13, 2024 Instrument Repair Specialist Relationship Specialty Start Date End Date Sandra Austin NP [address] [place] [address] PCP - General 07/19/23 Instrument Repair Specialist Relationship Specialty Start Date End Date Sandra Austin [facility] [address] [facility] [place] [address] PCP - General 07/19/23 Goals (unrecognized section [...] BE BASED ON THE PRIMARY CLINICAL RECORDS. [facility] [employer] provides no warranty or guarantee of the accuracy or completeness of information in this document.
--- NOTE | 2024-08-18 13:19 | US_ITS ---
[address] [address] Patient Name: SOFIA ZEPEDA MRN: [id number] date: 1995 Sex: F Assigned Patient Location: [facility] Current Patient Location: [facility] Accession/Order Number: [id number] Exam Date: 08/18/2024 13:20 Report Date: 08/18/2024 13:54 At the request of: AGUS SANTO Procedure: US OB growth EXAMINATION: US OB growth HISTORY: ABNORMAL THYROID STIMULATING HORMONE COMPARISON: No relevant comparison available. FINDINGS: Heart Rate: 136 bpm Amniotic Fluid Volume: 14.0 cm, largest fluid pocket 4.0 cm Number: 1 Position: Cephalic presentation, longitudinal lie BIOMETRY: BPD: 8.48 cm; 34 weeks 1 day; 37.70 % HC: 31.84 cm; 35 weeks 6 days; 46.70 % AC: 34.48 cm; 38 weeks 3 days; >97 % FL: 6.67 cm; 34 weeks 2 days; 34.60 % EFW: 2957.30 g; 94 %, 6 lbs. 10 oz. FL/AC: 19.34 FL/BPD: 78.66 HC/AC: 0.92 GESTATIONAL AGE: Age by EDC: 34 weeks 4 days HERNANDO by EDC: 2024-09-25 Age by US: 35 weeks 5 days HERNANDO by US: 2024-09-17 US/US OB growth IMPRESSION: Abdominal circumference greater than the 97th percentile Estimated weight at the 94th percentile Electronically authenticated by: MANUELITO GREGG Date: 08/18/2024 13:54
== END 2024-08-18 11:13 | disposition home or self-care (01) ==
LOC: NOMS 11:20
PROVIDERS: PCP Nurse Practitioner Family; Visit Provider Obstetrics & Gynecology
DX: O99.891 Other specified diseases and conditions complicating pregnancy (principal); Z3A.34 34 weeks gestation of pregnancy; R79.89 Other specified abnormal findings of blood chemistry
CPT/HCPCS: 76816

== ENCOUNTER 2024-08-19 06:56 | Outpatient (OUT) | payer OTHER, SELFPAY ==
--- OUTSIDE RECORDS SUMMARY | 2024-08-19 06:58 | XMS_ITS | CCD ---
Author Organization [facility] Care Team Providers Care Inspector Welded Parts Name Role Phone [facility] CamarilloSohaSandra Unavailable KAP, SANDRA Primary Care Unavailable MARQUITA ., DR GOLDSMITH Attending Unavailable WEST, DR MANUELITO Foley Consulting Unavailable MARQUITA ., DR GOLDSMITH Admitting Unavailable MARQUITA ., DR GOLDSMITH Consulting Unavailable BRIAN, VIRGINIA Admitting Unavailable VIRGINIA TORRES Attending Unavailable KAP, SANDRA Primary Care Unavailable MORRIS, DR MANUELITO Foley Consulting Unavailable MARQUITA ., DR GOLDSMITH Consulting Unavailable VIRGINIA TORRES Consulting Unavailable MARQUITA ., DR GOLDSMITH Attending Unavailable KAP, SANDRA Primary Care Unavailable MARQUITA ., DR GOLDSMITH Admitting Unavailable MARQUITA ., DR GOLDSMITH Consulting Unavailable KAP, SANDRA Primary Care Unavailable MARQUITA ., DR GOLDSMITH Consulting Unavailable MARQUITA ., DR GOLDSMITH Attending Unavailable MARQUITA ., DR GOLDSMITH Admitting Unavailable MARQUITA ., DR GOLDSMITH Attending Unavailable KAPLE, SANDRA Primary Care Unavailable MARQUITA ., DR GOLDSMITH Admitting Unavailable WEST, DR MANUELITO Foley Consulting Unavailable MARQUITA ., DR GOLDSMITH Consulting Unavailable KAPLE, SANDRA Primary Care Unavailable MARQUITA ., DR GOLDSMITH Consulting Unavailable MARQUITA ., DR GOLDSMITH Attending Unavailable MARQUITA ., DR GOLDSMITH Admitting Unavailable KAPLE, SANDRA Primary Care Unavailable MARQUITA ., DR GOLDSMITH Attending Unavailable MARQUITA ., DR GOLDSMITH Consulting Unavailable MARQUITA ., DR GOLDSMITH Admitting Unavailable ZIEBER, DR RAGINI Chatterjee Consulting Unavailable KAP, SANDRA Primary Care Unavailable MARQUITA ., DR GOLDSMITH Consulting Unavailable MARQUITA ., DR GOLDSMITH Attending Unavailable MARQUITA ., DR GOLDSMITH Admitting Unavailable KAP, SANDRA Primary Care Unavailable MARQUITA ., DR GOLDSMITH Attending Unavailable MORRIS, DR MANUELITO Foley Consulting Unavailable MARQUITA ., DR GOLDSMITH Admitting Unavailable MARQUITA ., DR GOLDSMITH Consulting Unavailable MARQUITA ., DR GOLDSMITH Attending Unavailable MARQUITA ., DR GOLDSMITH Admitting Unavailable KAPLE, SANDRA Primary Care Unavailable MARQUITA ., DR GOLDSMITH Consulting Unavailable KAPLE, SANDRA Primary Care Unavailable MARQUITA ., DR GOLDSMITH Attending Unavailable MARQUITA ., DR GOLDSMITH Consulting Unavailable MARQUITA ., DR GOLDSMITH Admitting Unavailable KAPLE, SANDRA Primary Care Unavailable MARQUITA ., DR GOLDSMITH Attending Unavailable MORRIS, DR MANUELITO Foley Consulting Unavailable MARQUITA ., DR GOLDSMITH Admitting Unavailable MARQUITA ., DR GOLDSMITH Consulting Unavailable KAPLE, SANDRA Primary Care Unavailable MARQUITA ., DR GOLDSMITH Attending Unavailable MARQUITA ., DR GOLDSMITH Consulting Unavailable MARQUITA ., DR GOLDSMITH Admitting Unavailable ZIEBER, DR RAGINI Chatterjee Consulting Unavailable KAPLE, SANDRA Primary Care Unavailable MARQUITA ., DR GOLDSMITH Attending Unavailable MARQUITA ., DR GOLDSMITH Consulting Unavailable MARQUITA ., DR GOLDSMITH Admitting Unavailable KAPLE, SANDRA Primary Care Unavailable MARQUITA ., DR GOLDSMITH Attending Unavailable MARQUITA ., DR GOLDSMITH Consulting Unavailable MARQUITA ., DR GOLDSMITH Admitting Unavailable KAPLE, SANDRA Admitting Unavailable KAPLE, SANDRA Attending Unavailable KAPLE, SANDRA Consulting Unavailable KAPLE, SANDRA Primary Care Unavailable MARQUITA ., DR GOLDSMITH Attending Unavailable MARQUITA ., DR GOLDSMITH Admitting Unavailable KAPLE, SANDRA Primary Care Unavailable KAPLE, SANDRA Admitting Unavailable KAPLE, SANDRA Attending Unavailable KAPLE, SANDRA Consulting Unavailable KAPLE, SANDRA Primary Care Unavailable MARQUITA ., DR GOLDSMITH Attending Unavailable KAPLE, SANDRA Primary Care Unavailable MARQUITA ., DR GOLDSMITH Admitting Unavailable MARQUITA ., DR GOLDSMITH Attending Unavailable KAPLE, SANDRA Primary Care Unavailable MARQUITA ., DR GOLDSMITH Admitting Unavailable MARQUITA ., DR GOLDSMITH Consulting Unavailable VIRGINIA TORRES Consulting Unavailable MARQUITA ., DR GOLDSMITH Procedure Practitioner Unavail able KAPLE, SANDRA Primary Care Unavailable MARQUITA ., DR GOLDSMITH Attending Unavailable MARQUITA ., DR GOLDSMITH Consulting Unavailable MARQUITA ., DR GOLDSMITH Admitting Unavailable SANDRA AUSTIN Primary Care Unavailable JODIE ., DR HU Admitting Unavailabl e JODIE ., DR HU Attending Unavailabl e LYK ., DR HU Consulting Unavailabl e MORRIS, DR MANUELITO Foley Consulting Unavailable MARQUITA ., DR GOLDSMITH Consulting Unavailable SANDRA AUSTIN Primary Care Unavailable MARQUITA ., DR GOLDSMITH Attending Unavailable MORRIS, DR MANUELITO Foley Consulting Unavailable MARQUITA ., DR GOLDSMITH Admitting Unavailable MARQUITA ., DR GOLDSMITH Consulting Unavailable Yari Ramonita Unavailable MARYLOU PRIEST Attending Unavailable MARQUITA, AGUS Attending Unavailable MARQUITA, AGUS Attending Unavailable MARQUITA, AGUS Attending Unavailable MARYLOU PRIEST Attending Unavailable MARQUITA, AGUS Attending Unavailable MARQUITA, AGUS Attending Unavailable MARQUITA, AGUS Attending Unavailable Geovanna MANAGER HEMATOLOGY, Sandra Hall Primary Care Provider Medications Current [...] aspirin 81 mg delayed release oral tablet (4 sources) Platelet Aggregation Inhibitor, Nonsteroidal Anti-inflammatory Drug [...] Active cetirizine hydrochloride 10 mg oral tablet (13 sources) Histamine-1 Receptor Antagonist Start: 10-23-2019 take 30 mg by mouth once daily Cetirizine Active 30 MG PO Daily October 23, 2019 1:00am take 1 tablet by mouth once lolis y cetirizine (ZyrTEC) 10 MG tablet Take 10 mg by mouth Daily Active cholecalciferol 0.025 mg oral tablet (13 sources) Vitamin D Start: 02-13-2024 take 1 [...] May, Active citalopram 20 mg oral tablet (10 sources) Serotonin Reuptake Inhibitor Start: 08-04-2024 End: [...] Active levothyroxine sodium 0.05 mg oral tablet (16 sources) l-Thyroxine Start: take 1 tablet by [...] omeprazole 20 mg delayed release oral capsule (4 sources) Proton Pump Inhibitor Start: 03-02-20 End: [...] hours February 13, 2024 12:00am polymyxin b 78428 unt/ml / trimethoprim 1 mg/ml ophthalmic solution (3 sources) Dihydrofolate Reductase Inhibitor Antibacterial, Polymyxin-class Antibacterial Start: 01-05-20 Polymyxin B-Trimethoprim 37505-7.1 UNIT/ML 1 drop into affected eye Ophthalmic every 3 hours up to six times daily for 7 days Dec, Active (10 sources) Active Xpafsxyy-Gwl-Yr-FA ( 1 + IRON PO) (4 sources) Azvyjxlr-Tbs-At-FA ( 1 + IRON PO) Take by [...] acid 7540 MG / polyethylene glycol 3350 54562 MG / potassium chloride 1200 MG / sodium ascorbate 76354 MG / sodium chloride 3200 MG Powder for Oral Solution) / 1 (polyethylene glycol 3350 268477 MG / potassium chloride 1000 MG / [...] otitis externa, bilateral Episodic Other endocrine disorders (15 sources) Polycystic ovary syndrome; Translations: [Polycystic ovarian [...] Problem Date Documented Date Episodic/Chronic Abdominal pain (6 sources) Left lower quadrant pain; Translations: [Abdominal pain] Onset: 07-23-2022 10-26-2019 Episodic Diabetes mellitus without complication (20 sources) Prediabetes; Translations: [Prediabetes] Onset: 12-21-2021 Resolved: [...] Episodic Other ear and sense organ disorders (5 sources) Otalgia, right ear; Translations: [Otalgia, unspecified] [...] UA Negative Negative - 4(70) +++ mg/dL [facility] Blood, UA Negative Negative - 50 Jose Manuel/mcL [facility] Clarity, UA Clear [facility], UA Yellow [facility] Glucose, UA Negative Negative - 1999(110) ++++ mg/dL [facility] Interpretation and review of laboratory results Abnormal [facility] Ketones, UA Negative Negative - 160(16) ++++ mg/dL [facility] Leukocytes, UA Trace Negative - 500+++ Alexys/mcL [facility] Nitrite, UA Negative Negative - Positive [facility] pH, UA 7.0 5 - 9 [facility] e Protein, UA Negative Negative - 1999(20) ++++ mg/dL [facility] Spec Grav, UA 1.015 1 - 1.03 [facility] Urobilinogen, UA 0.2 0.2 - 12 mg/dL [facility] Human papilloma virus 16+18+ 31+33+35+39+45+51+52+56+58+59+66+68 DNA [Presence] in Anders 12-16-2023 HPV 16+18+31+33+35+39+45 +51+52+56+58+59+66+6 8 DNA Probe+sig amp Ql (Cvx) Note . [facility] Comment on above: TESTS RESULT FLAG UN ITS REF RANGE LAB DI AGNOSIS: 02 NEGATIVE FOR INTRAEPITHELIAL LESION OR MALIGNANCY.Specimen adequacy: 02 Satisfactory for evaluation. Endocervical and/or squamous metaplastic cells (endocervical component) are present.Performed by: 02 Raeann Duran, Palliative Medicine Physician (ASCP). 02Note: Note 02 The Pap smear is a screening test designed to aid in the detection of premalignant and malignant conditions of the uterine cervix. It is not a diagnostic procedure and should not be used as the sole means of detecting cervical cancer. Both false-positive and false-negative reports do occur.Test Methodology: Note 02 The [employer] Utility Helicopter Repairer was unable to read this specimen. Therefore a manual review was performed. ----- FLAG LEGEND: L-Low Normal,H-High Normal,LL-Alert Low,HH-Alert High <-Panic Low,>-Panic High,A-Abnormal,AA-Critical Abnormal ---Performed at:[address] [id number] Heavenly Serrano MD, . 02 The HPV DNA reflex criteria were not met with this specimen result therefore, no HPV testing was performed.The HPV DNA reflex criteria were not met with this specimenresult therefore, no HPV testing was performed.Performed at: =[facility] [id number] Director: Heavenly Serrano MD, Phone: [phone] at: [address] [id number] Director: Heavenly Serrano MD, Phone: [phone] No Panel Informationon 12-16 Reference Lab Test Patient Age Note . [facility] Comment on above: TESTS RESULT FLAG UN ITS REF RANGE LAB Clinician Provided Cytology Information Source.............Cervix No. of containers..01 ThinPrep VialAge Niruo DELORIS Leslye... FLAG LEGEND: L-Low Normal,H-High Normal,LL-Alert Low,HH-Alert High <-Panic Low,>-Panic High,A-Abnormal,AA-Critical Abnormal ---Performed at:01 =[facility] [id number] Heavenly Serrano MD, A1C HEMOGLOBINon 10-31-2023 HbA1c (Bld) [Mass fraction] 5.8 % [facility] Other HbA1c (Bld) [Mass fraction]o n 10-31-2023 A1C HEMOGLOBIN [facility] Other A1C HEMOGLOBINon 06-24-2023 HbA1c (Bld) [Mass fraction] 5.2 % [facility] Other HbA1c (Bld) [Mass fraction]o n 06-24-2023 A1C HEMOGLOBIN [facility] Other Quick Strepon 04-15-2023 S. pyogenes Org specific cx Ql (Throat) Positive [facility] Other Quick Strep [facility] Other FREE T4on 02-21-2023 Free T4 [Mass/Vol] 0.89 ng/dL Normal 0.76-1.46 [facility] Comment on above: Performed By: #### H H #### [facility] [address] [place] [address] [address] Bella Jerome PROF 14(COMP METB)on 023 Albumin [Mass/Vol] 3.7 g/dL Normal 3.4-5.0 [facility] Comment on above: Performed By: #### H H #### [facility] [address] [place] [address] Dr. Bella Jerome Albumin/Globulin [Mass ratio] 0.9 {ratio} Normal [facility] [place] Comment on above: Performed By: #### H H #### [facility] [address] [place] [address] Dr. Bella Jerome ALP [Catalytic activity/Vol] 132 U/L Critically high 46-116 [facility] [place] Comment on above: Performed By: #### H H #### [facility] [address] [place] [address] Dr. Bella Jerome ALT [Catalytic activity/Vol] 32 U/L Normal 14-59 [facility] [place] Comment on above: Performed By: #### H H #### [facility] [address] [place] [address] Dr. Bella Jerome Anion gap [Moles/Vol] 12.8 mmol/L Normal [facility] [place] Comment on above: Performed By: #### H H #### [facility] [address] [place] [address] Dr. Bella Jerome AST [Catalytic activity/Vol] 23 U/L Normal 15-37 [facility] [place] Comment on above: Performed By: #### H H #### [facility] [address] [place] [address] Dr. Bella Jerome Bilirubin [Mass/Vol] 0.6 mg/dL Normal 0.2-1.0 [facility] [place] Comment on above: Performed By: #### H H #### [facility] [address] [place] [address] Dr. Bella Jerome Calcium [Mass/Vol] 9.0 mg/dL Normal 8.5-10.1 [facility] Comment on above: Performed By: #### H H #### [facility] [address] [place] [address] Dr. Bella Jerome Chloride [Moles/Vol] 102 mmol/L Normal 98-107 [facility] [place] Comment on above: Performed By: #### H H #### [facility] [address] [place] [address] Dr. Bella Jerome CO2 [Moles/Vol] 28.2 mmol/L Normal 21.0-32.0 [facility] Comment on above: Performed By: #### H H #### [facility] [address] [place] [address] Dr. Bella Jerome Creatinine [Mass/Vol] 0.67 mg/dL Normal 0.55-1.02 [facility] [place] Comment on above: Performed By: #### H H #### [facility] [address] [place] [address] Dr. Bella Jerome EGFR-AF MAURITIAN >60 Normal >=60 [facility] Comment on above: Performed By: #### H H #### [facility] [address] [place] [address] Dr. Bella Jerome EGFR-NON AF MAURITIAN >60 Normal >=60 [facility] [place] Comment on above: Performed By: #### H H #### [facility] [address] [place] [address] Dr. Bella Jerome Globulin (S) [Mass/Vol] 4.2 g/dL Normal [facility] [place] Comment on above: Performed By: #### H H #### [facility] [address] [place] [address] Dr. Bella Jerome Glucose [Mass/Vol] 88 mg/dL Normal 74-106 [facility] Comment on above: Performed By: #### H H #### [facility] [address] [place] [address] Dr. Bella Jerome Potassium [Moles/Vol] 4.0 mmol/L Normal 3.5-5.1 [facility] Comment on above: Performed By: #### H H #### [facility] [address] [place] [address] Dr. Bella Jerome Protein [Mass/Vol] 7.9 g/dL Normal 6.4-8.2 [facility] Comment on above: Performed By: #### H H #### [facility] [address] [place] [address] Dr. Bella Jerome Sodium [Moles/Vol] 139 mmol/L Normal 136-145 [facility] Comment on above: Performed By: #### H H #### [facility] [address] [place] [address] Dr. Bella Jerome Urea nitrogen [Mass/Vol] 12.0 mg/dL Normal 7.0-18.0 [facility] [place] Comment on above: Performed By: #### H H #### [facility] [address] [place] [address] Dr. Bella Jerome Urea nitrogen/Creatinine [Mass ratio] 17.9 mg/mg Normal [facility] [place] Comment on above: Performed By: #### H H #### [facility] [address] [place] [address] Dr. Bella Jerome TSHon 02-21-2023 TSH 2.463 uIU/mL Normal 0.358-3.740 [facility] Comment on above: Performed By: #### H H #### [facility] [address] [place] [address] Dr. Bella Jerome VITAMIN D 25 OHon 02-21-2023 VIT D 25-OH 23.1 ng/mL Normal [facility] [place] Comment on above: Performed By: #### H H #### [facility] [address] [place] [address] Dr. Bella Jerome VIT D RANGES SEE BELOW Normal [facility] [place] Comment on above: Result Comment: <20 ng/mL Vit D deficient 20 - <30 ng/mL Vit D insufficient 30 - 100 ng/mL Vit D sufficient >100 ng/mL Potential Toxicity Performed By: #### H H #### [facility] [address] [place] [address] Dr. Bella Jerome CBC AUTO DIFFon 12-26-2022 BASO # 0.0 103/ul Normal 0.0-0.1 [facility] [place] Comment on above: Performed By: #### C BC #### [facility] [address] [place] [address] Dr. Bella Jerome Basophils/100 WBC (Bld) 0.3 % Normal 0.2-2.0 [facility] [place] Comment on above: Performed By: #### C BC #### [facility] [address] [place] [address] Dr. Bella Jerome EO # 0.1 103/ul Normal 0.0-0.7 [facility] [place] Comment on above: Performed By: #### C BC #### [facility] [address] [place] [address] Dr. Bella Jerome Eosinophils/100 WBC (Bld) 1.6 % Normal 0.9-7.0 [facility] [place] Comment on above: Performed By: #### C BC #### [facility] [address] [place] [address] Dr. Bella Jerome Erythrocyte distribution width (RBC) [Ratio] 12.7 % Normal 11.0-15.0 [facility] [place] Comment on above: Performed By: #### C BC #### [facility] [address] [place] [address] Dr. Bella Jerome Hematocrit (Bld) [Volume fraction] 37.2 % Normal 36.0-48.0 [facility] [place] Comment on above: Performed By: #### C BC #### [facility] [address] [place] [address] Dr. Bella Jerome Hemoglobin (Bld) [Mass/Vol] 12.5 g/dL Normal 12.0-16.0 [facility] [place] Comment on above: Performed By: #### C BC #### [facility] [address] [place] [address] Dr. Bella Jerome IG # 0.02 10e3/ul Normal 0.00-0.03 [facility] [place] Comment on above: Performed By: #### C BC #### [facility] [address] [place] [address] Dr. Bella Jerome IG % 0.3 % Normal 0.0-0.5 [facility] Comment on above: Performed By: #### C BC #### [facility] [address] [place] [address] Dr. Bella Jerome LYMPH # 2.3 103/ul Normal 1.2-3.8 [facility] Comment on above: Performed By: #### C BC #### [facility] [address] [place] [address] Dr. Bella Jerome Lymphocytes/100 WBC (Bld) 34.1 % Normal 20.5-60.0 [facility] [place] Comment on above: Performed By: #### C BC #### [facility] [address] [place] [address] Dr. Bella Jerome MANUAL DIFF REQ NO Normal [facility] Comment on above: Performed By: #### C BC #### [facility] [address] [place] [address] Dr. Bella Jerome MCH (RBC) [Entitic mass] 30.9 pg Normal 26.7-34.0 [facility] [place] Comment on above: Performed By: #### C BC #### [facility] [address] [place] [address] Dr. Bella Jerome MCHC (RBC) [Mass/Vol] 33.6 g/dL Normal 29.9-35.2 [facility] [place] Comment on above: Performed By: #### C BC #### [facility] [address] [place] [address] Dr. Bella Jerome MCV (RBC) [Entitic vol] 91.9 fL Normal 81.0-99.0 [facility] [place] Comment on above: Performed By: #### C BC #### [facility] [address] [place] [address] Dr. Bella Jerome MONO # 0.4 103/ul Normal 0.3-0.8 [facility] [place] Comment on above: Performed By: #### C BC #### [facility] [address] [place] [address] Dr. Bella Jerome Monocytes/100 WBC (Bld) 5.1 % Normal 1.7-12.0 [facility] [place] Comment on above: Performed By: #### C BC #### [facility] [address] [place] [address] Dr. Bella Jerome NEUT # 4.0 103/ul Normal 1.4-6.5 [facility] [place] Comment on above: Performed By: #### C BC #### [facility] [address] [place] [address] Dr. Bella eJrome Neutrophils/100 WBC (Bld) 58.6 % Normal 43.0-75.0 [facility] [place] Comment on above: Performed By: #### C BC #### [facility] [address] [address] [address] Bella Jerome Platelet mean volume (Bld) [Entitic vol] 11.5 fL Normal 9.5-13.5 [facility] [place] Comment on above: Performed By: #### C BC #### [facility] [address] [address] [address] Bella Jerome PLT 243 103/ul Normal 150-450 [facility] Comment on above: Performed By: #### C BC #### [facility] [address] [address] [address] Bella Jerome RBC 4.05 106/ul Critically low 4.20-5.40 [facility] Comment on above: Performed By: #### C BC #### [facility] [address] [address] [address] Bella Jerome WBC 6.8 103/ul Normal 4.0-11.0 [facility] [place] Comment on above: Performed By: #### C BC #### [facility] [address] [address] [address] Bella Jerome FREE T4on 12-26-2022 Free T4 [Mass/Vol] 1.05 ng/dL Normal 0.76-1.46 [facility] Comment on above: Performed By: #### F T4, VITAD, B12FOL, IRON ####[facility] [id number] [id number] Bella Jerome GLYCOHEMOGLOBIN A1Con 2022 ADA RECOMMENDATION SEE BELOW Normal [facility] Comment on above: Result Comment: ADA RECOMMENDED LIMIT 4.0 - 6.0 ADA THERAPEUTIC TARGET < 7.0 ACTION SUGGESTED > 7.0 Performed By: #### A 1C #### [facility] [address] [address] [address] Bella Jerome Glucose [Mass/Vol] 103 mg/dL Normal [facility] Comment on above: Performed By: #### A 1C #### [facility] [address] [address] [address] Bella Jerome HbA1c (Bld) [Mass fraction] 5.2 % Normal 4.5-6.2 [facility] [place] Comment on above: Performed By: #### A 1C #### [facility] [address] [address] [address] Bella Jerome IRONon 12-26-2022 Iron [Mass/Vol] 74.0 ug/dL Normal 50.0-170.0 [facility] Comment on above: Performed By: #### F T4, VITAD, B12FOL, IRON ####[facility] [id number] [place], [place] [address]BgDr. Bella Jerome LIPID PROFILEon 12-26-2022 CHOL-HDL RATIO NORM SEE BELOW Normal [facility] Comment on above: Result Comment: 3.3 - 4.4 LOW RISK 4.4 - 7.1 AVERAGE RISK 7.1 - 11.0 MODERATE RISK >11.0 HIGH RISK Performed By: #### C MP, TSH, LIPID #### [facility] [address] [address] [address] Bella Jerome Cholesterol [Mass/Vol] 153 mg/dL Normal <=200 [facility] [place] Comment on above: Performed By: #### C MP, TSH, LIPID #### [facility] [address] [address] [address] Bella Jerome Cholesterol in HDL [Mass/Vol] 67 mg/dL Critically high 40-60 [facility] [place] Comment on above: Performed By: #### C MP, TSH, LIPID #### [facility] [address] [address] [address] Bella Jerome Cholesterol in LDL [Mass/Vol] 77.2 mg/dL Normal [facility] [place] Comment on above: Performed By: #### C MP, TSH, LIPID #### [facility] [address] [address] [address] Bella Jerome Cholesterol.total/Ch olesterol in HDL [Mass ratio] 2.3 {ratio} Normal [facility] [place] Comment on above: Performed By: #### C MP, TSH, LIPID #### [facility] [address] [address] [address] Bella Jerome HDL NORMAL > or = 60 mg/dl - LOW CARDIOVASCULAR RISK <40 mg/dl - HIGH CARDIOVASCULAR RISK Normal [facility] [place] Comment on above: Performed By: #### C MP, TSH, LIPID #### [facility] [address] [address] [address] Bella Jerome LDL CALC NORMAL SEE BELOW Normal [facility] Comment on above: Result Comment: <100 mg/dl OPTIMAL 100 - 129 mg/dl NEAR OR ABOVE OPTIMAL 130 - 159 mg/dl BORDERLINE HIGH 160 - 189 mg/dl HIGH >190 mg/dl VERY HIGH Performed By: #### C MP, TSH, LIPID #### [facility] [address] [address] [address] Bella Jerome Triglyceride [Mass/Vol] 44 mg/dL Normal <=150 [facility] [place] Comment on above: Performed By: #### C MP, TSH, LIPID #### [facility] [address] [address] [address] Bella Jerome VLDL CALC 8.8 mg/dL Normal [facility] [place] Comment on above: Performed By: #### C MP, TSH, LIPID #### [facility] [address] [address] [address] Bella Jerome MICROALB CREAT RATIO RANDOMo n 12-26-2022 mALB 2.3 mg/L Normal <=30.0 [facility] [place] Comment on above: Performed By: #### H H #### [facility] [address] [address] [address] Bella Jerome MALB CR RATIO 17.4 mg/g Normal 0.0-29.9 [facility] Comment on above: Performed By: #### H H #### [facility] [address] [address] [address] Bella Jerome MALB CR RATIO RANGE SEE BELOW Normal [facility] Comment on above: Result Comment: NO M ICROALBUMINURIA 0-29 MG/G CLINICAL MICROALBUMINURIA 30-300 MG/G MACROALBUMINURIA >300 MG/G Performed By: #### H H #### [facility] [address] [address] [address] Bella Jerome URINE CREAT 131.90 mg/dL Normal 20.00-300.00 [facility] Comment on above: Performed By: #### H H #### [facility] [address] [address] [address] Bella Jerome PROF 14(COMP METB)on 023 Albumin [Mass/Vol] 4.1 g/dL Normal 3.4-5.0 [facility] Comment on above: Performed By: #### C MP, TSH, LIPID #### [facility] [address] [address] [address] Bella Jerome Albumin/Globulin [Mass ratio] 1.3 {ratio} Normal [facility] [place] Comment on above: Performed By: #### C MP, TSH, LIPID #### [facility] [address] [place] [address] Dr. Bella Jerome ALP [Catalytic activity/Vol] 124 U/L Critically high 46-116 [facility] [place] Comment on above: Performed By: #### C MP, TSH, LIPID #### [facility] [address] [address] [address] Bella Jerome ALT [Catalytic activity/Vol] 16 U/L Normal 14-59 [facility] [place] Comment on above: Performed By: #### C MP, TSH, LIPID #### [facility] [address] [address] [address] Bella Jerome Anion gap [Moles/Vol] 13.4 mmol/L Normal [facility] [place] Comment on above: Performed By: #### C MP, TSH, LIPID #### [facility] [address] [address] [address] Bella Jerome AST [Catalytic activity/Vol] 17 U/L Normal 15-37 [facility] [place] Comment on above: Performed By: #### C MP, TSH, LIPID #### [facility] [address] [address] [address] Bella Jerome Bilirubin [Mass/Vol] 0.8 mg/dL Normal 0.2-1.0 [facility] [place] Comment on above: Performed By: #### C MP, TSH, LIPID #### [facility] [address] [address] [address] Bella Jerome Calcium [Mass/Vol] 8.9 mg/dL Normal 8.5-10.1 [facility] Comment on above: Performed By: #### C MP, TSH, LIPID #### [facility] [address] [address] [address] Bella Jerome Chloride [Moles/Vol] 103 mmol/L Normal 98-107 [facility] Comment on above: Performed By: #### C MP, TSH, LIPID #### [facility] [address] [address] [address] Bella Jerome CO2 [Moles/Vol] 25.6 mmol/L Normal 21.0-32.0 [facility] Comment on above: Performed By: #### C MP, TSH, LIPID #### [facility] [address] [address] [address] Bella Jerome Creatinine [Mass/Vol] 0.55 mg/dL Normal 0.55-1.02 [facility] [place] Comment on above: Performed By: #### C MP, TSH, LIPID #### [facility] [address] [place] [address] Dr. Bella Jerome EGFR-AF MAURITIAN >60 Normal >=60 [facility] Comment on above: Performed By: #### C MP, TSH, LIPID #### [facility] [address] [address] [address] Bella Jerome EGFR-NON AF MAURITIAN >60 Normal >=60 [facility] [place] Comment on above: Performed By: #### C MP, TSH, LIPID #### [facility] [address] [address] [address] Bella Jerome Globulin (S) [Mass/Vol] 3.1 g/dL Normal [facility] [place] Comment on above: Performed By: #### C MP, TSH, LIPID #### [facility] [address] [place] [address] Dr. Bella Jerome Glucose [Mass/Vol] 82 mg/dL Normal 74-106 [facility] Comment on above: Performed By: #### C MP, TSH, LIPID #### [facility] [address] [place] [address] Dr. Bella Jerome Potassium [Moles/Vol] 4.0 mmol/L Normal 3.5-5.1 [facility] [place] Comment on above: Performed By: #### C MP, TSH, LIPID #### [facility] [address] [place] [address] Dr. Bella Jerome Protein [Mass/Vol] 7.2 g/dL Normal 6.4-8.2 [facility] Comment on above: Performed By: #### C MP, TSH, LIPID #### [facility] [address] [place] [address] Dr. Bella Jerome Sodium [Moles/Vol] 138 mmol/L Normal 136-145 [facility] Comment on above: Performed By: #### C MP, TSH, LIPID #### [facility] [address] [place] [address] Dr. Bella Jerome Urea nitrogen [Mass/Vol] 14.0 mg/dL Normal 7.0-18.0 [facility] [place] Comment on above: Performed By: #### C MP, TSH, LIPID #### [facility] [address] [place] [address] Dr. Bella Jerome Urea nitrogen/Creatinine [Mass ratio] 25.5 mg/mg Normal [facility] [place] Comment on above: Performed By: #### C MP, TSH, LIPID #### [facility] [address] [place] [address] Dr. Bella Jerome TSHon 12-26-2022 TSH 0.224 uIU/mL Critically low 0.358-3.740 [facility] Comment on above: Performed By: #### C MP, TSH, LIPID #### [facility] [address] [place] [address] Dr. Bella Jerome VIT B12 AND FOLATEon 023 Cobalamin (Vitamin B12) [Mass/Vol] 702.0 pg/mL Normal 193.0-986.0 [facility] [place] Comment on above: Performed By: #### F T4, VITAD, B12FOL, IRON ####[facility] [address] [id number] Jerome FOLATE 25.10 ng/mL Normal 8.60-58.90 [facility] [place] Comment on above: Performed By: #### F T4, VITAD, B12FOL, IRON ####[facility] [address] [id number] Jerome VITAMIN D 25 [place]on 12-26-2022 VIT D 25-OH 25.4 ng/mL Normal [facility] [place] Comment on above: Performed By: #### F T4, VITAD, B12FOL, IRON ####[facility] [address] [address]DrWill Jerome VIT D RANGES SEE BELOW [facility] Comment on above: Result Comment: <20 ng/mL Vit D deficient 20 - <30 ng/mL Vit D insufficient 30 - 100 ng/mL Vit D sufficient >100 ng/mL Potential Toxicity Performed By: #### F T4, VITAD, B12FOL, IRON ####[facility] [address] [address]DrWill Jerome PAP ACOG PANEL 2: 21 to 31on 12-18-2022 . . Normal [facility] [place] Comment on above: Performed By: #### C BC #### [facility] [address] [place] [address] Dr. Bella Jerome Age Gdln ACOG Testing - Normal [facility] [place] Comment on above: Performed By: #### C BC #### [facility] [address] [place] [address] Dr. Bella Jerome DIAGNOSIS: Comment Normal [facility] [place] Comment on above: Result Comment: NEGA TIVE FOR INTRAEPITHELIAL LESION OR MALIGNANCY. Performed By: #### C BC #### [facility] [address] [place] [address] Dr. Bella Jerome Methodology: Comment Normal [facility] [place] Comment on above: Result Comment: This liquid based ThinPrep(R) pap test was screened with the use of an image guided system. Performed By: #### C BC #### [facility] [address] [address] [address] Bella Jerome Note: Comment Normal [facility] [place] Comment on above: Result Comment: The Pap smear is a screening test designed to aid in the detection of premalignant and malignant conditions of the uterine cervix. It is not a diagnostic procedure and should not be used as the sole means of detecting cervical cancer. Both false-positive and false-negative reports do occur. . Performed By: #### C BC #### [facility] [address] [address] [address] Bella Jerome Performed by: Comment Normal [facility] Comment on above: Result Comment: Byron Irby, Palliative Medicine Physician (ASCP) Performed By: #### C BC #### [facility] [address] [place] [address] Dr. Bella Jerome Reflex Criteria: Comment Normal [facility] Comment on above: Result Comment: The HPV DNA reflex criteria were not met with this specimen result therefore, no HPV testing was performed. . Performed By: #### C BC #### [facility] [address] [place] [address] Dr. Bella Jerome Specimen adequacy: Comment Normal [facility] Comment on above: Result Comment: Sati sfactory for evaluation. Endocervical and/or squamous metaplastic cells (endocervical component) are present. Performed By: #### C BC #### [facility] [address] [place] [address] Dr. Bella Jerome CBC W MANUAL DIFFon 09-07-20 22 ATYPICAL LYMPH # Normal [facility] Comment on above: Performed By: #### C BCMAN ####[facility] [address] [address]Dr. Bella Jerome ATYPICAL LYMPH % Normal [facility] Comment on above: Performed By: #### C BCMAN ####[facility] [address] [address]Dr. Bella Jerome BAND # 0.2 103/ul Normal 0.0-0.3 [facility] [place] Comment on above: Performed By: #### C BCMAN ####[facility] [address] [address]Dr. Bella Jerome BAND % 1 % Normal 0-5 [facility] Comment on above: Performed By: #### C BCMAN ####[facility] [address] [address]Dr. Bella Jerome BASOM # 0.00 103/ul Normal 0.00-0.10 [facility] Comment on above: Performed By: #### C BCMAN ####[facility] [address] [address]Dr. Bella Jerome BASOM % 0.0 % Critically low 0.2-2.0 [facility] Comment on above: Performed By: #### C BCMAN ####[facility] [address] [place], [place] [address]Dr. Bella Jerome BLAST # Normal [facility] Comment on above: Performed By: #### C BCRELL ####[facility] [address] [place], [place] [address]Dr. Yiwally Jerome BLAST % Normal [facility] Comment on above: Performed By: #### C BCRELL ####[facility] [address] [place], [place] [address]Dr. Bella Jerome CORRECTED WBC Normal 4.0-11.0 [facility] Comment on above: Performed By: #### C BCRELL ####[facility] [address] [place], [place] [address]Dr. Bella Jerome EOS # 0.00 103/ul Normal 0.00-0.70 [facility] Comment on above: Performed By: #### C BCRELL ####[facility] [address] [address]Dr. Bella Jerome EOS% 0.0 % Critically low 0.9-7.0 [facility] Comment on above: Performed By: #### C BCMAN ####[facility] [address] [address]Dr. Bella Jerome HCT 30.5 % Critically low 36.0-48.0 [facility] Comment on above: Performed By: #### C BCMAN ####[facility] [address] [place], [place] [address]Fm. Bella Jerome HGB 10.5 g/dl Critically low 12.0-16.0 [facility] Comment on above: Performed By: #### C PEDRO ####[facility] [address] [place], [place] [address]Zm. Bella Jerome LYMPHM # 2.78 103/ul Normal 1.20-3.80 [facility] [place] Comment on above: Performed By: #### C PEDRO ####[facility] [address] [place], [place] [address]Bl. Bella Jerome LYMPHM% 13.0 % Critically low 20.5-60.0 [facility] Comment on above: Performed By: #### C PEDRO ####[facility] [address] [place], [place] [address]Lj. Bella Jerome MCH 32.8 pg Normal 26.7-34.0 [facility] [place] Comment on above: Performed By: #### Jennifer VASQUEZ ####[facility] [address] [id number]. Bella Jerome MCHC 34.4 g/dl Normal 29.9-35.2 [facility] Comment on above: Performed By: #### C PEDRO ####[facility] [address] [place], [place] [address]Kf. Bella Jerome MCV 95.3 fL Normal 81.0-99.0 [facility] Comment on above: Performed By: #### Jennifer VASQUEZ ####[facility] [address] [place], [place] [address]Pq. Bella Jerome METAMYELOCYTE # Normal [facility] Comment on above: Performed By: #### C PEDRO ####[facility] [address] [place], [place] [address]Fu. Bella Jerome METAMYELOCYTE % Normal [facility] Comment on above: Performed By: #### Jennifer VASQUEZ ####[facility] [address] [id number]. Bella Jerome MONOM# 2.35 103/ul Critically high 0.30-0.80 [facility] Comment on above: Performed By: #### C PEDRO ####[facility] [address] [id number]. Bella Justus MONOM% 11.0 % Normal 1.7-12.0 [facility] [place] Comment on above: Performed By: #### C PEDRO ####[facility] [address] [id number]. Bella Justus MPV 11.1 fL Normal 9.5-13.5 [facility] [place] Comment on above: Performed By: #### C PEDRO ####[facility] [address] [address]Dr. Bella Justus MYELOCYTE # Normal [facility] [place] Comment on above: Performed By: #### C PEDRO ####[facility] [address] [id number]. Bella Jerome MYELOCYTE % Normal [facility] Comment on above: Performed By: #### C PEDRO ####[facility] [address] [id number]. Bella Justus NRBC Normal [facility] [place] Comment on above: Performed By: #### C PEDRO ####[facility] [address] [id number]. Liwally Justus PLT 227 103/ul Normal 150-450 [facility] Comment on above: Performed By: #### C PEDRO ####[facility] [address] [id number]. Bella Jerome RBC 3.20 106/ul Critically low 4.20-5.40 [facility] Comment on above: Performed By: #### C PEDRO ####[facility] [address] [place], [place] [id number]. Liwally Justus RDW 12.8 % Normal 11.0-15.0 [facility] [place] Comment on above: Performed By: #### C PEDRO ####[facility] [address] [place], [place] [id number]. Bella Jerome SEG # 16.05 103/ul Critically high 1.40-6.50 [facility] Comment on above: Performed By: #### C BCMAN ####[facility] [address] [address]Dr. Bella Jerome SEG % 75.0 % Normal 43.0-75.0 [facility] [place] Comment on above: Performed By: #### C BCMAN ####[facility] [address] [address]Dr. Bella Jerome WBC 21.4 103/ul Critically high 4.0-11.0 [facility] Comment on above: Performed By: #### C BCMAN ####[facility] [address] [address]Dr. Bella Jerome CBC AUTO DIFFon 09-05-2022 BASO # 0.0 103/ul Normal 0.0-0.1 [facility] [place] Comment on above: Performed By: #### C BC #### [facility] [address] [place] [address] Dr. Bella Jerome Basophils/100 WBC (Bld) 0.2 % Normal 0.2-2.0 [facility] [place] Comment on above: Performed By: #### C BC #### [facility] [address] [place] [address] Dr. Bella Jerome EO # 0.1 103/ul Normal 0.0-0.7 [facility] [place] Comment on above: Performed By: #### C BC #### [facility] [address] [place] [address] Dr. Bella Jerome Eosinophils/100 WBC (Bld) 0.6 % Critically low 0.9-7.0 [facility] [place] Comment on above: Performed By: #### C BC #### [facility] [address] [place] [address] Dr. Bella Jerome Erythrocyte distribution width (RBC) [Ratio] 12.6 % Normal 11.0-15.0 [facility] [place] Comment on above: Performed By: #### C BC #### [facility] [address] [place] [address] Dr. Bella Jerome Hematocrit (Bld) [Volume fraction] 32.5 % Critically low 36.0-48.0 [facility] [place] Comment on above: Performed By: #### C BC #### [facility] [address] [place] [address] Dr. Bella Jerome Hemoglobin (Bld) [Mass/Vol] 11.1 g/dL Critically low 12.0-16.0 [facility] [place] Comment on above: Performed By: #### C BC #### [facility] [address] [address] [address] Bella Jerome IG # 0.14 10e3/ul Critically high 0.00-0.03 [facility] Comment on above: Performed By: #### C BC #### [facility] [address] [place] [address] Dr. Bella Jerome IG % 1.1 % Critically high 0.0-0.5 [facility] Comment on above: Performed By: #### C BC #### [facility] [address] [place] [address] Dr. Bella Jerome LYMPH # 2.6 103/ul Normal 1.2-3.8 [facility] [place] Comment on above: Performed By: #### C BC #### [facility] [address] [place] [address] Dr. Bella Jerome Lymphocytes/100 WBC (Bld) 20.2 % Critically low 20.5-60.0 [facility] [place] Comment on above: Performed By: #### C BC #### [facility] [address] [place] [address] Dr. Bella Jerome MANUAL DIFF REQ NO Normal [facility] Comment on above: Performed By: #### C BC #### [facility] [address] [address] [address] Bella Jerome MCH (RBC) [Entitic mass] 32.2 pg Normal 26.7-34.0 [facility] [place] Comment on above: Performed By: #### C BC #### [facility] [address] [place] [address] Dr. Bella Jerome MCHC (RBC) [Mass/Vol] 34.2 g/dL Normal 29.9-35.2 [facility] [place] Comment on above: Performed By: #### C BC #### [facility] [address] [place] [address] Dr. Bella Jerome MCV (RBC) [Entitic vol] 94.2 fL Normal 81.0-99.0 [facility] [place] Comment on above: Performed By: #### C BC #### [facility] [address] [place] [address] Dr. Bella Jerome MONO # 0.9 103/ul Critically high 0.3-0.8 [facility] Comment on above: Performed By: #### C BC #### [facility] [address] [place] [address] Dr. Bella Jerome Monocytes/100 WBC (Bld) 7.1 % Normal 1.7-12.0 [facility] [place] Comment on above: Performed By: #### C BC #### [facility] [address] [place] [address] Dr. Bella Jerome NEUT # 8.9 103/ul Critically high 1.4-6.5 [facility] Comment on above: Performed By: #### C BC #### [facility] [address] [place] [address] Dr. Bella Jerome Neutrophils/100 WBC (Bld) 70.8 % Normal 43.0-75.0 [facility] [place] Comment on above: Performed By: #### C BC #### [facility] [address] [place] [address] Dr. Bella Jerome Platelet mean volume (Bld) [Entitic vol] 11.0 fL Normal 9.5-13.5 [facility] Comment on above: Performed By: #### C BC #### [facility] [address] [place] [address] Dr. Bella Jerome PLT 234 103/ul Normal 150-450 [facility] Comment on above: Performed By: #### C BC #### [facility] [address] [place] [address] Dr. Bella Jerome RBC 3.45 106/ul Critically low 4.20-5.40 [facility] Comment on above: Performed By: #### C BC #### [facility] [address] [place], [place] [address] Dr. Bella Jerome WBC 12.6 103/ul Critically high 4.0-11.0 [facility] Comment on above: Performed By: #### C BC #### [facility] [address] [place], [place] [address] Dr. Bella Jerome Covid-19 PCR ([facility])on SARS-CoV-2 (COVID-19) RNA FAVIAN+probe Ql (Unsp spec) Not detected Normal NOT DETECTED [facility] Comment on above: Result Comment: When [...] for this test is supported by the [place] of [employer] and Human Service's declaration that [...] used). Performed By: #### C VDTBH ####[facility] [address] [place], [place] [address]Qg. Bella Jerome DRUG SCREEN RAPID (URINE)on 09-05-2022 AMP Negative Normal NEGATIVE [facility] Comment on above: Performed By: #### D RUGRPD ####[facility] [address] [id number]. Bella Jerome BAR Negative Normal NEGATIVE [facility] Comment on above: Performed By: #### D RUGRPD ####[facility] [address] [id number] Jerome BUP Negative Normal NEGATIVE [facility] Comment on above: Performed By: #### D RUGRPD ####[facility] [address] [id number]. Bella Jerome BZO Negative Normal NEGATIVE [facility] Comment on above: Performed By: #### D RUGRPD ####[facility] [address] [place] [id number]. Bella Jerome NGA Negative Normal NEGATIVE [facility] Comment on above: Performed By: #### D RUGRPD ####[facility] [address] [place], [place] [id number]. Bella Jerome CUT-OFFS SEE BELOW Normal [facility] [place] Comment on above: Result Comment: AMP (Amphetamine): 500ng/mL, BAR (Barbituates): 200 ng/mL, BZO (Benzodiazepines): 150 ng/mL, BUP (Buprenorphine): 10 ng/mL, NGA (Cocaine): 150 ng/mL, mAMP (Methamphetamine): 500 ng/mL, MTD (Methadone): 200 ng/mL, OPI (Opiates): 100 ng/mL, OXY (Oxycodone): 100 ng/mL, PCP (Phencyclidine): 25 ng/mL, PPX (Propoxyphene): 300 ng/mL, THC (Cannabinoids): 50 ng/mL, TCA (Trycyclic Antidepressants): 300 ng/mL Performed By: #### D RUGRPD ####[facility] [address] [place], [place] [id number]. Bella Jerome DRUG CUT HEADER DRUG CLASS TEST SYSTEM CUT-OFF CONCENTRATIONS ARE FOLLOWS: Normal [facility] Comment on above: Performed By: #### D RUGRPD ####[facility] [address] [place] [id number]. Bella Jerome mAMP Negative Normal NEGATIVE [facility] Comment on above: Performed By: #### D RUGRPD ####[facility] [address] [place] [id number]. Bella Jerome MTD Negative Normal NEGATIVE [facility] Comment on above: Performed By: #### D RUGRPD ####[facility] [address] [place] [id number]. Bella Jerome OPI Negative Normal NEGATIVE [facility] Comment on above: Performed By: #### D RUGRPD ####[facility] [address] [place] [id number]. Yiwally Jerome OXY Negative Normal NEGATIVE [facility] Comment on above: Performed By: #### D RUGRPD ####[facility] [address] [place] [id number]. Bella Jerome PCP Negative Normal NEGATIVE [facility] Comment on above: Performed By: #### D RUGRPD ####[facility] [address] [place] [address]Dr. Bella Jerome PPX Negative Normal NEGATIVE [facility] Comment on above: Performed By: #### D RUGRPD ####[facility] [address] [place] [address]Dr. Bella Jerome TCA Negative Normal NEGATIVE [facility] Comment on above: Performed By: #### D RUGRPD ####[facility] [address] [place], [place] [id number]. Bella Jerome THC Negative Normal NEGATIVE [facility] Comment on above: Performed By: #### D RUGRPD ####[facility] [address] [place] [address]Dr. Bella Jerome TYPE AND SCREENon 09-05-2022 TYPE AND SCREEN Negative Normal The [facility] Comment on above: Performed By: #### T NS ####[facility] [address] [place], [place] [address]Dr. Bella Jerome US PREG BIOPHY W NON [...] by: MANUELITO GREGG Date: 2022-08-31 17:06 Normal [facility] [place] US PREG GROWTHon 08-30-2022 US PREG GROWTH [...] by: MANUELITO GREGG Date: 2022-08-30 17:59 Normal [facility] [place] US PREG BIOPHY W NON STRESSo n [...] by: MANUELITO GREGG Date: 2022-08-24 17:10 Normal [facility] [place] FREE T4on 08-21-2022 Free T4 [Mass/Vol] 0.90 ng/dL Normal 0.76-1.46 [facility] Comment on above: Performed By: #### C BC #### [facility] [address] [address] [address] Bella Jerome TSHon 08-21-2022 TSH 1.033 uIU/mL Normal 0.358-3.740 [facility] Comment on above: Performed By: #### H H #### [facility] [address] [address] [address] Bella Jerome PREG BIOPHY W NON [...] by: MANUELITO GREGG Date: 2022-08-17 18:33 Normal [facility] [place] GROUP B STREP CULTUREon 07-28 S. agalactiae Ag Ql (Unsp spec) Culture Observations: NEGATIVE FOR GROUP B STREPTOCOCCUS. Normal [facility] [place] Comment on above: Performed By: #### G BSCX ####[facility] [address] [place] [address]Dr. Bella Jerome PREG BIOPHY W NON STRESSo [...] by: MANUELITO GREGG Date: 2022-08-10 16:36 Normal [facility] [place] US PREG GROWTHon 08-10-2022 US PREG GROWTH [...] by: MANUELITO GREGG Date: 2022-08-10 16:37 Normal [facility] [place] US PREG GROWTHon 07-25-2022 US PREG GROWTH [...] by: MANUELITO GREGG Date: 2022-07-25 18:18 Normal [facility] [place] FREE T4on 07-24-2022 Free T4 [Mass/Vol] 0.98 ng/dL Normal 0.76-1.46 [facility] Comment on above: Performed By: #### F T4 #### [facility] [address] [address] [address] Bella Jerome TSHon 07-24-2022 TSH 1.196 uIU/mL Normal 0.358-3.740 [facility] Comment on above: Performed By: #### T SH ####[facility] [address] [place], [place] [address]Dr. Bella Jerome UA (CLEAN/CATCH) GLUED WOOD TESTER/MICRO I F IND.on 07-20-2022 Bilirubin Ql (U) Negative Normal NEGATIVE [facility] Comment on above: Performed By: #### H H #### [facility] [address] [place] [address] Dr. Bella Jerome Clarity (U) CLEAR Normal CLEAR [facility] [place] Comment on above: Performed By: #### H H #### [facility] [address] [place] [address] Dr. Bella Jerome Color (U) LT. YELLOW Normal YELLOW [facility] [place] Comment on above: Performed By: #### H H #### [facility] [address] [place] [address] Dr. Bella Jerome Glucose Ql (U) Negative Normal NEGATIVE The [facility] Comment on above: Performed By: #### H H #### [facility] [address] [place] [address] Dr. Bella Jerome Hemoglobin Ql (U) Negative Normal NEGATIVE [facility] Comment on above: Performed By: #### H H #### [facility] [address] [place] [address] Dr. Bella Jerome Ketones Ql (U) Negative Normal NEGATIVE [facility] Comment on above: Performed By: #### H H #### [facility] [address] [place] [address] Dr. Bella Jerome LEUKOCYTES Negative Normal NEGATIVE [facility] [place] Comment on above: Performed By: #### H H #### [facility] [address] [place] [address] Dr. Bella Jerome Nitrite Ql (U) Negative Normal NEGATIVE [facility] Comment on above: Performed By: #### H H #### [facility] [address] [place] [address] Dr. Bella Jerome pH (U) 7.0 [pH] Normal 5-9 [facility] [place] Comment on above: Performed By: #### H H #### [facility] [address] [place] [address] Dr. Bella Jerome SPEC GRAVITY <=1.005 Abnormal 1.005-<=1.025 [facility] Comment on above: Performed By: #### H H #### [facility] [address] [place] [address] Dr. Bella Jerome UA PROTEIN Negative Normal NEGATIVE/ TRACE [facility] Comment on above: Performed By: #### H H #### [facility] [address] [place] [address] Dr. Bella Jerome UR MICRO IND NOT INDICATED Normal [facility] Comment on above: Performed By: #### H H #### [facility] [address] [place] [address] Dr. Bella Jerome Urobilinogen Qn (U) 0.2 {Kimberlee'U}/dL Normal 0.2 - 1. 0 [facility] [place] Comment on above: Performed By: #### H H #### [facility] [address] [place] [address] Dr. Bella Jerome US PREG GROWTHon 06-27-2022 [...] by: RAGINI SANTOS Date: 2022-06-27 16:23 Normal [facility] [place] FREE T4on 06-20-2022 Free T4 [Mass/Vol] 0.82 ng/dL Normal 0.76-1.46 [facility] Comment on above: Performed By: #### H H #### [facility] [address] [place] [address] Dr. Bella Jerome GLUCOSE - 1HRon 06-20-2022 Glucose [Mass/Vol] 127 mg/dL Critically high 74-106 [facility] Comment on above: Performed By: #### H H #### [facility] [address] [address] [address] Bella Jerome HEMOGRAM AND PLATELon 2021 Hematocrit (Bld) [Volume fraction] 32.4 % Critically low 36.0-48.0 [facility] [place] Comment on above: Performed By: #### H H #### [facility] [address] [address] [address] Bella Jerome Hemoglobin (Bld) [Mass/Vol] 10.9 g/dL Critically low 12.0-16.0 [facility] [place] Comment on above: Performed By: #### H H #### [facility] [address] [address] [address] Bella Jerome MCH (RBC) [Entitic mass] 32.9 pg Normal 26.7-34.0 [facility] [place] Comment on above: Performed By: #### H H #### [facility] [address] [place] [address] Dr. Bella Jerome MCHC (RBC) [Mass/Vol] 33.6 g/dL Normal 29.9-35.2 [facility] [place] Comment on above: Performed By: #### H H #### [facility] [address] [address] [address] Bella Jerome MCV (RBC) [Entitic vol] 97.9 fL Normal 81.0-99.0 [facility] [place] Comment on above: Performed By: #### H H #### [facility] [address] [address] [address] Bella Jerome PLT 241 103/ul Normal 150-450 [facility] [place] Comment on above: Performed By: #### H H #### [facility] [address] [address] [address] Bella Jerome RBC 3.31 106/ul Critically low 4.20-5.40 [facility] Comment on above: Performed By: #### H H #### [facility] [address] [address] [address] Bella Jerome WBC 11.3 103/ul Critically high 4.0-11.0 [facility] Comment on above: Performed By: #### H H #### [facility] [address] [address] [address] Bella Jerome TSHon 06-20-2022 TSH 3.044 uIU/mL Normal 0.358-3.740 [facility] Comment on above: Performed By: #### C BC #### [facility] [address] [place] [address] Dr. Bella Jerome US PREG INCOMPLETE ANATOMYon 05-24-2022 US PREG INCOMPLETE ANATOMY EXAMINATION: US PREG INCOMPLETE ANATOMY HISTORY: screening COMPARISON: Ultrasound anatomy 04/26/2022 FINDINGS: Presentation: Cephalic Heart rate: 154 bpm Anatomy: Cervical, thoracic, and lumbar spine HERNANDO: 09/13/2022 IMPRESSION: 1. Adequate visualization of the cervical, thoracic, and lumbar spine; no appreciable abnormality. Electronically authenticated by: RAGINI SANTOS Date: 2022-05-24 17:33 Normal [facility] US PREG ANATOMY [...] MANUELITO GREGG Date: 2022-04-26 16:54 Normal [facility] CHLAMYDIA/GONOCOCCUS FAVIAN (SW AB/URINE/PAPon 04-19-2022 Chlamydia trachomatis, FAVIAN Negative Normal Negative [facility] Comment on above: Performed By: #### C T/NGNA ####[facility] [address] [place] [address]DrWill Jerome Neisseria gonorrhoeae, FAVIAN Negative Normal Negative [facility] Comment on above: Performed By: #### C T/NGNA ####[facility] [address] [place], [place] [address]BwWill Jerome VAGINITIS/VAGINOSIS DNA PROB Leonid 04-18-2022 Jessica species Negative Normal Negative [facility] Comment on above: Performed By: #### H H #### [facility] [address] [place] [address] Dr. Bella Jerome Gardnerella vaginalis Negative Normal Negative [facility] [place] Comment on above: Performed By: #### H H #### [facility] [address] [place] [address] Dr. Bella Jerome Trichomonas vaginalis Negative Normal Negative [facility] [place] Comment on above: Performed By: #### H H #### [facility] [address] [place] [address] Dr. Bella Jerome FREE T4on 04-05-2022 Free T4 [Mass/Vol] 0.88 ng/dL Normal 0.76-1.46 [facility] Comment on above: Performed By: #### F T4 #### [facility] [address] [place] [address] Dr. Bella Jerome TSHon 04-05-2022 TSH 1.786 uIU/mL Normal 0.358-3.740 [facility] Comment on above: Performed By: #### T SH ####[facility] [address] [place], [place] [address]Dr. Bella Jerome TSH RANGE SEE BELOW Normal [facility] [place] Comment on above: Result Comment: <0.3 4 UIU/ml HYPERTHYROID 0.34-5.60 UIU/ml EUTHYROID >5.60 UIU/ml HYPOTHYROID Performed By: #### T SH ####[facility] [address] [place] [address]Dr. Bella Jerome FREE T4on 02-26-2022 Free T4 [Mass/Vol] 1.06 ng/dL Normal 0.76-1.46 [facility] Comment on above: Performed By: #### C BC #### [facility] [address] [place] [address] Dr. Bella Jerome TSHon 02-26-2022 TSH 2.024 uIU/mL Normal 0.470-4.680 [facility] Comment on above: Performed By: #### C BC #### [facility] [address] [place], [place] [address] Dr. Bella Jerome TSH RANGE SEE BELOW Normal [facility] Comment on above: Result Comment: <0.3 4 UIU/ml HYPERTHYROID 0.34-5.60 UIU/ml EUTHYROID >5.60 UIU/ml HYPOTHYROID Performed By: #### C BC #### [facility] [address] [address] [address] Bella Jerome Vital Signs Date Time Vital Sign Value Performing Clinician Facility 08-04-2024 13:30-0400 Body mass index (BMI) [Ratio] 44.37 kg/m2 Marylou CARBAJAL Work Phone: [facility] 08-04-2024 13:30-0400 Body weight 113.63 kg Marylou CARBAJAL Work Phone: [facility] 08-04-2024 13:30-0400 Diastolic blood pressure 78 mm[Hg] Marylou CARBAJAL Work Phone: [facility] 08-04-2024 13:30-0400 Systolic blood pressure 128 mm[Hg] Marylou CARBAJAL Work Phone: [facility] 02-13-2024 11:24-0400 Body height 160.02 cm [facility] 02-13-2024 11:24-0400 Body mass index (BMI) [Ratio] 42.3 kg/m2 [facility] 02-13-2024 11:24-0400 Body weight 108.49 kg [facility] 02-13-2024 11:24-0400 Diastolic blood pressure 70 mm[Hg] [facility] 02-13-2024 11:24-0400 Heart rate 69 /min [facility] 02-13-2024 11:24-0400 Respiratory rate 18 /min [facility] 02-13-2024 11:24-0400 SaO2% (BldA) [Mass fraction] 98 % [facility] 02-13-2024 11:24-0400 Systolic blood pressure 118 mm[Hg] [facility] 10-31-2023 15:00-0500 Body height 160.02 cm Sandra Austin Other [facility] Other 10-31-2023 15:00-0500 Body mass index (BMI) [Ratio] 45.41 kg/m2 Sandra Geovanna Other [facility] Other 10-31-2023 15:00-0500 Body temperature 98.5 [degF] Sandra Austin Other [facility] Other 10-31-2023 15:00-0500 Body weight 116.3 kg Sandra Geovanna Other [facility] Other 10-31-2023 15:00-0500 Diastolic blood pressure 80 mm[Hg] Sandra Austin Other [facility] Other 10-31-2023 15:00-0500 Respiratory rate 18 /min Sandra Geovanna Other [facility] Other 10-31-2023 15:00-0500 SaO2% (BldA) [Mass fraction] 98 % Sandra Austin Other [facility] Other 10-31-2023 15:00-0500 Systolic blood pressure 128 mm[Hg] Sandra Austin Other [facility] Other 06-24-2023 14:30-0400 Body height 160.02 cm Sandra Austin Other [facility] Other 06-24-2023 14:30-0400 Body mass index (BMI) [Ratio] 44.87 kg/m2 Sandra Austin Other [facility] Other 06-24-2023 14:30-0400 Body weight 114.9 kg Sandra Geovanna Other [facility] Other 06-24-2023 14:30-0400 Diastolic blood pressure 60 mm[Hg] Sandra Geovanna Other [facility] Other 06-24-2023 14:30-0400 Respiratory rate 18 /min Sandra Geovanna Other [facility] Other 06-24-2023 14:30-0400 SaO2% (BldA) [Mass fraction] 99 % Sandra Geovanna Other [facility] Other 06-24-2023 14:30-0400 Systolic blood pressure 110 mm[Hg] Sandra Austin Other [facility] Other 04-15-2023 09:25-0400 Body height 160.02 cm Ramonita Yari Other [facility] Other 04-15-2023 09:25-0400 Body mass index (BMI) [Ratio] 41.8 kg/m2 Ramonita Yari Other [facility] Other 04-15-2023 09:25-0400 Body temperature 98.5 [degF] Ramonita Yari Other [facility] Other 04-15-2023 09:25-0400 Body weight 107.05 kg Ramonita Yari Other [facility] Other 04-15-2023 09:25-0400 Respiratory rate 18 /min Ramonita Yari Other [facility] Other 04-15-2023 09:25-0400 SaO2% (BldA) [Mass fraction] 97 % Ramonita Greenberg Other [facility] Other 02-21-2023 14:45-0400 Body height 160.02 cm Sandra Austin Other [facility] Other 02-21-2023 14:45-0400 Body mass index (BMI) [Ratio] 41.39 kg/m2 Sandra Austin Other [facility] Other 02-21-2023 14:45-0400 Body weight 106.01 kg Sandra Austin Other [facility] Other 02-21-2023 14:45-0400 Diastolic blood pressure 60 mm[Hg] Sandra Austin Other [facility] Other 02-21-2023 14:45-0400 Respiratory rate 18 /min Sandra Austin Other [facility] Other 02-21-2023 14:45-0400 SaO2% (BldA) [Mass fraction] 98 % Sandra Austin Other [facility] Other 02-21-2023 14:45-0400 Systolic blood pressure 110 mm[Hg] Sandra Austin Other [facility] Other 12-24-2022 14:30-0500 Body height 160.02 cm Sandra Austin Other [facility] Other 12-24-2022 14:30-0500 Body mass index (BMI) [Ratio] 40.83 kg/m2 Sandra Geovanna Other [facility] Other 12-24-2022 14:30-0500 Body weight 104.55 kg Sandra Geovanna Other [facility] Other 12-24-2022 14:30-0500 Diastolic blood pressure 70 mm[Hg] Sandra Austin Other [facility] Other 12-24-2022 14:30-0500 Respiratory rate 18 /min Sandra Geovanna Other [facility] Other 12-24-2022 14:30-0500 SaO2% (BldA) [Mass fraction] 99 % Sandra Geovanna Other [facility] Other 12-24-2022 14:30-0500 Systolic blood pressure 118 mm[Hg] Sandra Geovanna Other [facility] Other 12-21-2021 16:30-0500 Body height 160.02 cm Sandra Geovanna Other [facility] Other 12-21-2021 16:30-0500 Body mass index (BMI) [Ratio] 38.58 kg/m2 Sandra Geovanna Other [facility] Other 12-21-2021 16:30-0500 Body temperature 97.3 [degF] Sandra Austin Other [facility] Other 12-21-2021 16:30-0500 Body weight 98.79 kg Sandra Austin Other [facility] Other 12-21-2021 16:30-0500 Diastolic blood pressure 60 mm[Hg] Sandra Geovanna Other [facility] Other 12-21-2021 16:30-0500 Respiratory rate 18 /min Sandra Geovanna Other [facility] Other 12-21-2021 16:30-0500 SaO2% (BldA) [Mass fraction] 99 % Sandra Geovanna Other [facility] Other 12-21-2021 16:30-0500 Systolic blood pressure 118 mm[Hg] Sandra Geovanna Other [facility] Other Encounters Encounter Date Encounter Type Care Provider Facility Start: 08-18-2024 End: 08-18-2024 Bamboo flowsheet Agus Marquita DO Work Phone: [facility] Start: 08-18-2024 End: 08-18-2024 Bamboo flowsheet Agus Marquita DO Work Phone: [facility] Start: 08-04-2024 End: 08-04-2024 Bamboo flowsheet Marylou CARBAJAL Work Phone: [facility] Start: 08-04-2024 End: 08-04-2024 Bamboo flowsheet Marylou CARBAJAL Work Phone: [facility] Start: 08-04-2024 End: 08-04-2024 ambulatory MARYLOU PRIEST Not Available Start: 08-04-2024 End: 08-04-2024 flow sheet Marylou CARBAJAL Work Phone: [facility] Comment on above: 32 weeks gestation o f ; Third trimester ; Anxiety, generalized (CMS/HCC) Start: 07-21-2024 End: 07-21-2024 ambulatory AGUS MARQUITA Not Available Start: 07-07-2024 End: 07-07-2024 ambulatory AGUS MARQUITA Not Available Start: 2024 End: 2024 ambulatory AGUS MARQUITA Not Available Start: 05-12-2024 End: 05-12-2024 ambulatory MARYLOU PRIEST Not Available Start: 04-16-2024 End: 04-16-2024 ambulatory AGUS MARQUITA Not Available Start: 03-17-2024 End: 03-17-2024 ambulatory AGUS MARQUITA Not Available Start: 02-14-2024 End: 02-14-2024 ambulatory MARYLOU PRIEST Not Available Start: 02-13-2024 End: 02-13-[address] [facility] Work Phone: Start: 02-13-2024 End: 02-13-2024 Patient encounter procedure [facility] [place] Work Phone: Start: 12-16-2023 Non-patient / Non-visit [facility] Work Phone: Start: 12-16-2023 End: 12-16-2023 ambulatory AGUS MARQUITA Not Available Start: 10-31-2023 End: 10-31-2023 ambulatory Sandra Austin Other [facility] Other Start: 10-31-2023 Office outpatient vi sit 25 minutes Sandra Austin [facility] [place] Start: 07-19-2023 End: 07-19-2023 ambulatory Sandra Austin Other [facility] Other Start: 07-19-2023 Telephone encounter Sandra Guevara [facility] [place] Start: 06-24-2023 End: 06-24-2023 ambulatory Sandra Austin Other [facility] Other Start: 06-24-2023 Office outpatient vi sit 25 minutes Sandra Austin [facility] [place] Start: 06-04-2023 End: 06-04-2023 ambulatory Sandra Austin Other [facility] Other Start: 06-04-2023 Telephone encounter Sandra Guevara [facility] Start: 04-15-2023 End: 04-15-2023 ambulatory Ramonita Yari Other [facility] Other Start: 04-15-2023 Office outpatient vi sit 15 minutes Ramonita Greenberg [facility] Start: 04-11-2023 End: 04-11-2023 ambulatory Sandra Austin Other [facility] Other Start: 04-11-2023 Telephone encounter Sandra Austin [facility] [place] Start: 02-21-2023 Office outpatient vi sit 25 minutes Sandra Austin [facility] [place] Start: 02-21-2023 End: 02-22-2023 ambulatory SANDRA AUSTIN [facility] [employer] Other Start: 01-04-2023 End: 01-04-2023 ambulatory Sandra Austin Other [facility] Other Start: 01-04-2023 Telephone encounter Sandra Austin [facility] [place] Start: 12-30-2022 Encounter for genera l adult medical examination without abnormal findings SANDRA AUSTIN [facility] [place] Start: 12-27-2022 End: 12-27-2022 ambulatory Sandra Austin Other [facility] Other Start: 12-27-2022 Telephone encounter Sandra Austin [facility] Start: 12-26-2022 End: 12-27-2022 ambulatory SANDRA AUSTIN Facility:[facility]1 Start: 12-26-2022 End: 12-27-2022 Encounter for general adult medical examination without abnormal findings SANDRA AUSTIN Facility:[facility]1 Start: 12-24-2022 End: 12-24-2022 ambulatory Sandra Austin Other [facility] [employer] Other Start: 12-24-2022 Encounter for genera l adult medical examination without abnormal findings Sandra Geovanna [facility] [place] Start: 12-24-2022 Periodic preventive med est patient 18-39 yrs Sandra Geovanna [facility] Start: 12-10-2022 End: 12-10-[address] AGUS [...] [place] Facility:[facility]1 Start: 07-25-2022 End: 07-26-2022 ambulatory SANDRAVALERY [place] Facility:[facility] Start: 07-24-2022 End: 07-25-2022 ambulatory SANDRAVALERY [place] Facility:[facility] Start: 07-20-2022 End: 07-20-2022 ambulatory SANDRAJADIEL [place] Facility:[facility]1 Start: 06-27-2022 End: 06-28-2022 ambulatory SANDRAJADIEL [place] Facility:[facility]1 Start: 06-20-2022 End: 06-21-2022 ambulatory SANDRAVALERY [place] Facility:[facility]1 Start: 05-24-2022 End: 05-25-2022 ambulatory SANDRA AUST[place] Facility:H1 Start: 04-26-2022 End: 04-27-2022 ambulatory SANDRA [place]UST[place] Facility:H1 Start: 04-17-2022 End: 04-17-2022 ambulatory SANDRA AUSTIN Facility:[facility]1 Start: 04-05-2022 End: 04-06-2022 ambulatory SANDRA [place]UST[place] Facility:[facility]1 Start: 02-26-2022 End: 02-27-2022 ambulatory SANDRA [place] Facility:H1 Start: 12-21-2021 End: 12-21-2021 ambulatory Sandra Austin Other [facility] Other Start: 12-21-2021 Office outpatient ne w 45 minutes Sandra Austin [facility] Family Medicine [place] Procedures Date Procedure Procedure Detail Performing Clinician [...] 12/17/2024 8:30 AM EST Office Visit [facility] [address] [place] [id number] Agus Juárez DO [address] [place] [address] [facility] Start: 08-18-2024 End: 08-18-2024 Patient encounter procedure 08/18/2024 1:30 PM EDT Routine [facility] OB [address] [place] [address] Agus Juárez, DO [address] [facility] [place] [address] [facility] Start: 08-18-2024 End: 08-18-2024 Professional / ancillary services management 08/18/2024 1:00 PM EDT Ancillary Procedure [facility] OB [address] [place] [address] [facility] Patient Education Low back pain in adults [facility] Work Phone: Immunizations Immunization Date Immunization Notes Care Provider [facility] 09-08-2022 diphtheria, tetanus toxoids and pertussis vaccine Marylou CARBAJAL Work Phone: [facility] 09-12-2021 pneumococcal conjuga te vaccine, 13 valent Marylou CARBAJAL Work Phone: [facility] 08-14-1999 diphtheria, tetanus toxoids and acellular pertussis vaccine, unspecified formulation Marylou CARBAJAL Work Phone: [facility] 08-14-1999 haemophilus influenz ae type b vaccine, HbOC conjugate Marylou CARBAJAL Work Phone: [facility] 08-14-1999 measles, mumps and rubella virus vaccine Marylou CARBAJAL Work Phone: [facility] 08-14-1999 trivalent poliovirus vaccine, live, oral Marylou CARBAJAL Work Phone: [facility] 04-27-1998 diphtheria, tetanus toxoids and acellular pertussis vaccine, unspecified formulation Marylou CARBAJAL Work Phone: [facility] 04-27-1998 haemophilus influenz ae type b conjugate and Hepatitis B vaccine Marylou CARBAJAL Work Phone: [facility] 1997 diphtheria, tetanus toxoids and acellular pertussis vaccine, unspecified formulation Marylou CARBAJAL Work Phone: [facility] 1997 haemophilus influenz ae type b vaccine, HbOC conjugate Marylou CARBAJAL Work Phone: [facility] 1997 poliovirus vaccine, inactivated Marylou CARBAJAL Work Phone: [facility] 1997 diphtheria, tetanus toxoids and acellular pertussis vaccine, unspecified formulation Marylou CARBAJAL Work Phone: [facility] 1997 haemophilus influenz ae type b conjugate and Hepatitis B vaccine Marylou CARBAJAL Work Phone: [facility] 1997 poliovirus vaccine, inactivated Marylou CARBAJAL Work Phone: [facility] 1997 hepatitis B vaccine, pediatric or pediatric/adolescent dosage Marylou CARBAJAL Work Phone: [facility] Payers Date Payer Category Payer [facility] Health Insurance [employer] [id number] 2023 Unknown [employer] [id number] 2023-Present [address] [place] [address] [id number]. [id number] 2023 Unknown [id number] 2.16.840.1.628475.19 1997 Unknown [id number] 2.16.840.1.210462.3.579.2. 593 1997 Unknown [id number] 2.16.840.1.051311.3.579.2. 593 1997 Unknown [id number] 2.16.840.1.553726.3.579.2. 593 1997 Unknown [id number] 2.16.840.1.846035.3.579.2. 593 1997 Unknown [id number] 2.16.840.1.581425.3.579.2. 593 1997 Unknown [id number] 2.16.840.1.918207.3.579.2. 593 1997 Unknown [id number] 2.16.840.1.944650.3.579.2. 593 1997 Unknown [id number] 2.16.840.1.101244.3.579.2. 593 1997 Unknown [id number] 2.16.840.1.759744.3.579.2. 593 1997 Unknown [id number] 2.16.840.1.743785.3.579.2. 593 1997 Unknown [id number] 2.16.840.1.038776.3.579.2. 593 1997 Unknown [id number] 2.16.840.1.570936.3.579.2. 593 1997 Unknown [id number] 2.16.840.1.193283.3.579.2. 593 1997 Unknown [id number] 2.16.840.1.179870.3.579.2. 593 1997 Unknown [id number] 2.16.840.1.537698.3.579.2. 593 1997 Unknown [id number] 2.16.840.1.095023.3.579.2. 593 1997 Unknown [id number] 2.16.840.1.040308.3.579.2. 593 1997 Unknown [id number] 2.16.840.1.580625.3.579.2. 593 1997 Unknown [id number] 2.16.840.1.896103.3.579.2. 593 1997 Unknown [id number] 2.16.840.1.996143.3.579.2. 593 1997 Unknown [id number] 2.16.840.1.046870.3.579.2. 593 1997 Unknown [id number] 2.16.840.1.265664.3.579.2. 593 1997 Unknown [id number] 2.16.840.1.001636.3.579.2. 593 1997 Unknown [id number] 2.16.840.1.847922.3.579.2. 1258 1997 Unknown [id number] 2.16.840.1.286533.3.579.2. 1258 1997 Unknown [id number] 2.16.840.1.976141.3.579.2. 9 1997 Unknown [id number] 2.16.840.1.225105.3.579.2. 1258 1997 Unknown [id number] 2.16.840.1.267370.3.579.2. 9 1997 Unknown [id number] 2.16.840.1.335020.3.579.2. 1259 1997 Unknown [id number] 2.16.840.1.176261.3.579.2. 1258 1997 Unknown [id number] 2.16.840.1.197182.3.579.2. 9 1997 Unknown [id number] 2.16.840.1.233372.3.579.2. 1259 1957 Medicaid [id number] 2.16.840.1.951786.19 1959 Private Health Insurance [id number] 2.16.840.1.550584.19 Self-pay Self Pay [id number] Unknown [place] [id number] Social History Date Type Detail Facility Start: 08-02-2023 End: 11-25-2023 Sex Assigned At [facility] [employer] Other Start: 1995 Sex Assigned At Female [facility] Start: 08-02-2023 Tobacco smoking stat [facility] Never smoked tobacco [facility] Start: 08-02-2023 Tobacco use and exposure Smokeless tobacco non-user [facility] Start: 07-21-2024 End: 08-04-2024 Alcoholic beverage intake Ex-drinker (finding) [facility] Start: 08-02-2023 End: 11-25-2023 History of Social function [facility] Start: 01-03-2024 [facility] Start: 1995 Sex assigned at Not on file [facility] Clinical Notes 12-21-2021 to 08-04-2024 SOLOMON Turner [...] before breakfast, Do not crush or chew. [id number] ( 1 + IRON PO) Oral ALLERGIES [...] of: SOLOMON Turner documented in this encounter [facility] 10-31-2023 Evaluation note Encounter Date Diagnosis Assessment [...] E28.2) She will continue to follow with [facility] and continue healthy lifestyle changes that she [...] course of antibiotic. Increase fluids and rest. [id number]-[id number] antipyretics as needed. Warning signs and symptoms reviewed with patient today. Patient to go immediately to the ER should she experience any of these. Patient to notify office should her symptoms persist and not improve. Patient verbalizes understanding and agrees to treatment plan. [facility] Other 09-22-2023 Evaluation note* Encounter Date Diagnosis Assessment Notes Treatment Notes Treatment Clinical Notes Jun, Vitamin D insufficiency (ICD-10 - E55.9) [facility] Other 08-28-2023 Evaluation note* Encounter Date Diagnosis [...] E28.2) She will continue to follow with [facility] and continue healthy lifestyle changes that she [...] ENT today. Specialty notes reviewed as received. [facility] Other 08-08-2023 Evaluation note* Encounter Date Diagnosis Assessment Notes Treatment Notes Treatment Clinical Notes May, Other atopic dermatitis (ICD-10 - L20.89) May, Acute otitis externa of both ears, unspecified type (ICD-10 - H60.503) [facility] Other 06-19-2023 Evaluation note* Encounter Date Diagnosis [...] no improvement in 2 to 3 days [facility] Other 06-15-2023 Evaluation note* Encounter Date Diagnosis Assessment Notes Treatment Notes Treatment Clinical Notes Mar, Anxiety (ICD-10 - F41.9) [facility] Other 04-27-2023 Evaluation note* Encounter Date Diagnosis [...] plan on rechecking this at May appointment. [facility] Other 03-10-2023 Evaluation note* Encounter Date Diagnosis Assessment Notes Treatment Notes Treatment Clinical Notes Dec, Bacterial conjunctivitis (ICD-10 - H10.9) [facility] Other 03-02-2023 Evaluation note* Encounter Date Diagnosis Assessment Notes Treatment Notes Treatment Clinical Notes Dec, Vitamin D insufficiency (ICD-10 - E55.9) Dec, Elevated alkaline phosphatase level (ICD-10 - R74.8) Dec, Other specified hypothyroidism (ICD-10 - E03.8) [facility] Other 02-27-2023 Evaluation note* Encounter Date Diagnosis [...] ordered. Follow routinely with eye doctor, dentist, [facility]. Patient is advised to work on healthy diet choices and appropriate servings, weight control, regular exercise as directed, reduced fat intake, and salt avoidance. Patient voiced understanding of this and agrees to this plan. Nov, PCOS (polycystic ovarian syndrome) (ICD-10 - E28.2) Routine lab work ordered. She will continue to follow with [facility] and continue healthy lifestyle changes that she [...] homicidal ideations. Started on Celexa by her [facility]. Very stable on Celexa 20 mg daily. [...] her ears still persist after starting this. [facility] Other 02-24-2022 Evaluation note* Encounter Date Diagnosis Assessment Notes Treatment Notes Treatment Clinical Notes Nov, Prediabetes (ICD-10 - R73.03) She was recently dx with prediabetes and was started on Metformin 500 mg BID 2 weeks ago by her [facility]. She would like to follow with our [...] - E28.2) She is following with her [facility] for her PCOS and is currently on Metformin 500 mg BID and is taking medication to help her get . She will continue to follow with [facility] and continue healthy lifestyle changes that she [...] of fatigue, difficulty losing weight by her [facility]. She would like to start following with [...] of this and agrees to this plan. [facility] Other Evaluation note* Diagnosis Onset Date Resolution Status 8 weeks gestation of acute Low back pain [facility] Work Phone: Evaluation note* Diagnosis 32 weeks gestation of Third trimester state, incidental Anxiety, generalized (CMS/HCC) [facility] - [facility]orted* Type Description Date Medical History PCOS Medical History THYROID ISSUES Surgical History THIRD NIPPLE REMOVED Surgical History Colonoscopy-normal 2018 [facility] Other Summary Purpose Family History Relationship Condition [...] ear pain (H92. 01) Referral Organization [facility] Family Gonzales Hernandez Referring Provider [...] and content) DATE CREATED AUTHOR 02/25/2023 [facility] DATE CREATED AUTHOR AUTHOR'S ORGANIZ ATION 08/06/2024 [facility] EPIC Care Teams (unrecognized sec [...] February 13, 2024 End: February 13, 2024 [employer] Relationship Specialty Start Date End Date Sandra Austin NP [address] [place] [phone] PCP - General 07/19/23 [employer] Relationship Specialty Start Date End Date Sandra Austin NP [address] [place] [phone] PCP - General 07/19/23 [employer] Relationship Specialty Start Date End Date Sandra Austin NP [address] [facility] [place] [address] PCP - General 07/19/23 Goals (unrecognized section [...] BE BASED ON THE PRIMARY CLINICAL RECORDS. [employer] provides no warranty or guarantee of the accuracy or completeness of information in this document.
--- NOTE | 2024-08-19 14:02 | US_ITS ---
[place] [address] Patient Name: SOFIA ZEPEDA MRN: [facility]:[id number] date: 1995 Sex: F Assigned Patient Location: [facility] Current Patient Location: Accession/Order Number: [id number] Exam Date: 08/19/2024 14:05 Report Date: 08/19/2024 16:18 At the request of: AGUS SANTO Procedure: US OB BPP w non-stress EXAMINATION: US OB BPP w non-stress HISTORY:Abnormal TSH R79.89 COMPARISON: No relevant comparison available. TECHNIQUE: Ultrasound biophysical profile was performed in the radiology department. BREATHING MOVEMENTS: 2 GROSS BODY MOVEMENTS: 2 TONE: 2 QUALITATIVE AMNIOTIC FLUID VOLUME: 2 PRESENTATION: CEPHALIC HEART RATE: 135 bpm AMNIOTIC FLUID VOLUME: 18.37 cm GESTATIONAL AGE: 34 weeks 5 days US/US OB BPP w non-stress IMPRESSION: Total biophysical profile score: 8 Electronically authenticated by: RAGINI SANTOS Date: 08/19/2024 16:18
[2024-08-19 14:18] VITALS: BP 123/70; PULSE 67
== END 2024-08-19 15:02 | disposition home or self-care (01) ==
LOC: US 06:56 → FBC 13:58
PROVIDERS: PCP Nurse Practitioner Family; Visit Provider Obstetrics & Gynecology
DX: O99.891 Other specified diseases and conditions complicating pregnancy (principal); R79.89 Other specified abnormal findings of blood chemistry; Z3A.34 34 weeks gestation of pregnancy
CPT/HCPCS: 76818

== ENCOUNTER 2024-08-22 06:47 | Outpatient (OUT) | payer OTHER, SELFPAY ==
--- OUTSIDE RECORDS SUMMARY | 2024-08-22 06:50 | XMS_ITS | CCD ---
Author Organization [facility] CliniSyok Care Team Providers Care Gold Stamper Name Role Phone [facility] Unavailable KAP, SANDRA Primary Care Unavailable MARQUITA ., DR GOLDSMITH Attending Unavailable WEST, DR MANUELITO Foley Consulting Unavailable MARQUITA ., DR GOLDSMITH Admitting Unavailable MARQUITA ., DR GOLDSMITH Consulting Unavailable BRIAN, VIRGINIA Admitting Unavailable VIRGINIA TORRES Attending Unavailable KAP, SANDRA Primary Care Unavailable [place], DR MANUELITO Foley Consulting Unavailable MARQUITA ., [...] Unavailable MARQUITA ., DR GOLDSMITH Attending Unavailable [place], DR MANUELITO Foley Consulting Unavailable MARQUITA ., [...] Unavailable MARQUITA ., DR GOLDSMITH Attending Unavailable [place], DR MANUELITO Foley Consulting Unavailable MRAQUITA ., DR GOLDSMITH Admitting Unavailable MARQUITA ., [...] LYK ., DR HU Consulting Unavailabl e [place], DR MANUELITO Foley Consulting Unavailable MARQUITA ., DR GOLDSMITH Consulting Unavailable SANDRA AUSTIN Primary Care Unavailable MARQUITA ., DR GOLDSMITH Attending Unavailable [place], DR MANUELITO Foley Consulting Unavailable MARQUITA ., DR GOLDSMITH Admitting Unavailable MARQUITA ., DR GOLDSMITH Consulting Unavailable Yari Ramonita Unavailable MARYLOU PRIEST Attending Unavailable MARQUITA, AGUS Attending Unavailable MARQUITA, AGUS Attending Unavailable MARQUITA, AGUS Attending Unavailable MARYLOU PRIEST Attending Unavailable MARQUITA, AGUS Attending Unavailable MARQUITA, AGUS Attending Unavailable MARQUITA, AGUS Attending Unavailable Geovanna CEMENT PATCHER, Sandra Hall Primary Care Provider [phone] Medications Current Medications Medication Drug Class(es) Dates Sig (Normalized) Sig (Original) amoxicillin 500 mg oral capsule (3 sources) Penicillin-class Antibacterial Start: 04-15-2023 take 1 capsule by mouth every eight hours Amoxicillin 500 MG 1 capsule Orally three times a day for 10 day(s) Mar, Active Ascorbic Acid (1 source) Vitamin C Vitamin C Active aspirin 81 mg delayed release oral tablet (6 sources) Platelet Aggregation Inhibitor, Nonsteroidal Anti-inflammatory Drug [...] Active cetirizine hydrochloride 10 mg oral tablet (15 sources) Histamine-1 Receptor Antagonist Start: 10-23-2019 take 30 mg by mouth once daily Cetirizine Active 30 MG PO Daily October 23, 2019 1:00am take 1 tablet by mouth once lolis y cetirizine (ZyrTEC) 10 MG tablet Take 10 mg by mouth Daily Active cholecalciferol 0.025 mg oral tablet (15 sources) Vitamin D Start: 02-13-2024 take 1 [...] May, Active citalopram 20 mg oral tablet (12 sources) Serotonin Reuptake Inhibitor Start: 08-04-2024 End: [...] Active levothyroxine sodium 0.05 mg oral tablet (18 sources) l-Thyroxine Start: take 1 tablet by mouth once daily in the morning Levothyroxine Active 1 TAB PO Daily February 13, 2024 12:00am FreeTextSi tablet in the morning on an empty stomach Orally Once a day; Note: Source Status: Taking; Refills: 4; Qty: 30 Tablet; Provider: Geovanna Hall Start: 05-24-2023 take 2 tablets by mo uth before mealtime levothyroxine (Synthroid, Levoxyl) 25 MCG tablet Take 50 mcg by mouth in the morning. Take before meals. 05/24/2023 Active Start: 05-24-2023 take 1 tablet by tamica [...] Active Loratadine (3 sources) Loratadine Activ e magnesium oxide 400 mg oral tablet (2 sources) take 1 tablet by mouth at bedtime magnesium oxide (Mag-Ox) 400 mg tablet Take 400 mg by mouth at bedtime Active metFORMIN hydrochloride 500 mg oral tablet (1 source) Biguanide take 1 tablet by mouth every twelve hours metFORMIN HCl 500 MG 1 tablet with a meal Orally twice a day Active omeprazole 20 mg delayed release oral capsule (8 sources) Proton Pump Inhibitor Start: End: take 2 capsules by mouth before mealtime omeprazole (PriLOSEC) [address] capsule Indications: Heartburn during in third trimester Take 2 capsules (40 mg) by mouth in the morning. Take before meals. Do not crush or chew.. 60 capsule 11 08/18/2024 08/18/2025 Active Start: 03-02-2024 End: 03-02-2025 take 1 capsule by mouth before mealtime omeprazole (PriLOSEC) [address] capsule Indications: Heartburn during in third trimester Take 1 capsule (20 mg) by mouth in the morning. Take before meals. Do not crush or chew.. 30 capsule 11 03/02/2024 08/18/2024 Discontinued ondansetron 4 mg oral tablet (1 source) Serotonin-3 Receptor Antagonist Start: 02-13-2024 take 4 mg by mouth every eight hours Ondansetron Hcl Active 4 MG PO Every 8 hours February 13, 2024 12:00am polymyxin b 79426 unt/ml / trimethoprim 1 mg/ml ophthalmic solution (3 sources) Dihydrofolate Reductase Inhibitor Antibacterial, Polymyxin-class Antibacterial Start: 01-04-2023 Polymyxin B-Trimethoprim 12480-6.1 UNIT/ML 1 drop into affected eye Ophthalmic every 3 hours up to six times daily for 7 days Dec, Active (10 sources) Active Qkexyivm-Zqf-Ea-FA ( 1 + IRON PO) (6 sources) Jceozdqh-Jvi-Zs-F A ( 1 + IRON PO) Take by mouth Active Probiotic (1 source) Probiotic Active Vitamin D3 125 MCG (5000 UT) (6 sources) Start: 02-21-2023 take 1 tablet by mouth once daily [...] acid 7540 MG / polyethylene glycol 3350 80436 MG / potassium chloride 1200 MG / sodium ascorbate 43237 MG / sodium chloride 3200 MG Powder for Oral Solution) / 1 (polyethylene glycol 3350 702215 MG / potassium chloride 1000 MG / [...] as acute or chronic Episodic Esophageal disorders (5 sources) Gastro-esophageal reflux disease without esophagitis; Translations: [Gastroesophageal reflux disease] Onset: 09-17-2022 08-18-2024 Chronic Hypertension complicating ; childbirth and the puerperium (8 sources) Unspecified maternal hypertension, third trimester; Translations: [Unspecified pre-existing hypertension complicating , third trimester] Onset: 08-17-2022 Chronic Inflammation; infection of eye (except that caused by tuberculosis or sexually transmitteddisease) (1 source) Unspecified conjunctivitis Episodic Nausea and vomiting (4 sources) Nausea and vomiting; Translations: [Nausea with vomiting, unspecified] Onset: 08-18-2024 08-18-2024 Episodic Nonmalignant breast conditions (1 source) Mastitis without abscess Episodic Nutritional deficiencies (16 sources) Vitamin D deficiency; Translations: [Vitamin D deficiency, unspecified] Onset: 02-25-2023 Chronic Other complications of (2 sources) Heartburn; Translations: [Other specified related conditions, third trimester] 08-18-2024 Episodic Other ear and sense organ disorders (1 source) Unspecified acute noninfective otitis externa, bilateral Episodic Other endocrine disorders (17 sources) Polycystic ovary syndrome; Translations: [Polycystic ovarian [...] [32 weeks gestation of ] 08-04-2024 Episodic Residual codes; unclassified (4 sources) Gestation period, 34 weeks; Translations: [34 weeks gestation of ] Onset: 08-18-2024 08-18-2024 Episodic Spondylosis; intervertebral disc disorders; other back problems (2 sources) Low back pain; Translations: [Low back pain] 02-13-2024 Episodic Thyroid disorders (20 sources) Hypothyroidism; Translations: [Other specified hypothyroidism] Onset: 12-21-2021 Resolved: 12-21-2021 Chronic Unclassified (1 source) CONTACT W/AND (SUSP) EXPOS COVID-19; Translations: [CONTACT W/AND (SUSP) EXPOS COVID-19] Onset: 09-17-2022 Past or Other Problems Problem Classification Problem Date Documented Date Episodic/Chronic Abdominal pain (8 sources) Left lower quadrant pain; Translations: [Abdominal [...] Episodic Other ear and sense organ disorders (7 sources) Otalgia, right ear; Translations: [Otalgia, unspecified] [...] Range Facility Urinalysis macro (dipstick) panel (U)on 08-18-2024 Bilirubin, UA Negative Negative - 4(70) +++ mg/dL [facility] Blood, UA Negative Negative - 50 Jose Manuel/mcL [facility] Clarity, UA [facility] re Color, UA Yellow [facility] e Glucose, UA Negative Negative - 1999(110) ++++ mg/dL [facility] Interpretation and review of laboratory results Normal [facility] Ketones, UA Negative Negative - 160(16) ++++ mg/dL [facility] Leukocytes, UA Negative Negative - 500+++ Alexys/mcL [facility] Nitrite, UA Negative Negative - Positive [facility] pH, UA 6.5 5 - 9 [facility] Protein, UA Negative Negative - 1999(20) ++++ mg/dL [facility] Spec Grav, UA 1.01 1 - 1.03 [facility] Urobilinogen, UA 0.2 0.2 - 12 mg/dL [facility] Urinalysis macro (dipstick) panel (U)on 08-04-2024 Bilirubin, UA Negative Negative - 4(70) +++ mg/dL [facility] Blood, UA Negative Negative - 50 Jose Manuel/mcL [facility] Clarity, UA [facility] re Color, UA Yellow [facility] e Glucose, UA Negative Negative - 1999(110) ++++ mg/dL [facility] Interpretation and review of laboratory results Abnormal [facility] Ketones, UA Negative Negative - 160(16) ++++ mg/dL [facility] Leukocytes, UA Trace Negative - 500+++ Alexys/mcL [facility] Nitrite, UA Negative Negative - Positive [facility] pH, UA 7.0 5 - 9 [facility] e Protein, UA Negative Negative - 1999(20) ++++ mg/dL [facility] Spec Grav, UA 1.015 1 - 1.03 [facility] Urobilinogen, UA 0.2 0.2 - 12 mg/dL [facility] Human papilloma virus 16+18+ 31+33+35+39+45+51+52+56+58+59+66+68 DNA [Presence] in Anders 12-16-2023 HPV 16+18+31+33+35+39+45 +51+52+56+58+59+66+6 8 DNA Probe+sig amp Ql (Cvx) Note . [facility] Comment on above: TESTS RESULT FLAG UN ITS REF RANGE LAB DI AGNOSIS: 02 NEGATIVE FOR INTRAEPITHELIAL LESION OR MALIGNANCY.Specimen adequacy: 02 Satisfactory for evaluation. Endocervical and/or squamous metaplastic cells (endocervical component) are present.Performed by: 02 Raeann Duran, Paint Dipper ([facility]). 02Note: Note 02 The Pap smear is a screening test designed to aid in the detection of premalignant and malignant conditions of the uterine cervix. It is not a diagnostic procedure and should not be used as the sole means of detecting cervical cancer. Both false-positive and false-negative reports do occur.Test Methodology: Note 02 The [employer] Prep(R) Pump Service Supervisor was unable to read this specimen. Therefore a manual review was performed. ----- FLAG LEGEND: L-Low Normal,H-High Normal,LL-Alert Low,HH-Alert High <-Panic Low,>-Panic High,A-Abnormal,AA-Critical Abnormal ---Performed at:[address] [id number] Heavenly Serrano MD, . 02 The HPV DNA reflex criteria were not met with this specimen result therefore, no HPV testing was performed.The HPV DNA reflex criteria were not met with this specimenresult therefore, no HPV testing was performed.Performed at: =[address] [id number] Director: Heavenly Serrano MD, Phone: [phone] at: [facility] [id number] Director: Heavenly Serrano MD, Phone: [phone] No Panel Informationon 12-16 Reference Lab Test Patient Age Note . [facility] Comment on above: TESTS RESULT FLAG UN ITS REF RANGE LAB Clinician Provided Cytology Information Source.............Cervix No. of containers..01 ThinPrep VialAge Algo ACOG Leslye... FLAG LEGEND: L-Low Normal,H-High Normal,LL-Alert Low,HH-Alert High <-Panic Low,>-Panic High,A-Abnormal,AA-Critical Abnormal ---Performed at:01 =[address] [facility] [id number] Heavenly Serrano MD, A1C HEMOGLOBINon 10-31-2023 HbA1c (Bld) [Mass fraction] 5.8 % [facility] Other HbA1c (Bld) [Mass fraction]o n 10-31-2023 A1C HEMOGLOBIN [facility] Other A1C HEMOGLOBINon 06-24-2023 HbA1c (Bld) [Mass fraction] 5.2 % [facility] Other HbA1c (Bld) [Mass fraction]o n 06-24-2023 A1C HEMOGLOBIN [facility] Other Quick Strepon 04-15-2023 S. pyogenes Org specific cx Ql (Throat) Positive [facility] Other Quick Strep [facility] Other FREE T4on 02-21-2023 Free T4 [Mass/Vol] 0.89 ng/dL Normal 0.76-1.46 [facility] Comment on above: Performed By: #### H H #### [facility] [address] [place] [address] Dr. Bella Jerome PROF 14(COMP METB)on 023 Albumin [Mass/Vol] 3.7 g/dL Normal 3.4-5.0 [facility] Comment on above: Performed By: #### H H #### [facility] [address] [place] [address] Dr. Bella Jerome Albumin/Globulin [Mass ratio] 0.9 {ratio} Normal [facility] Comment on above: Performed By: #### H H #### [facility] [address] [place] [address] Dr. Bella Jerome ALP [Catalytic activity/Vol] 132 U/L Critically high 46-116 [facility] Comment on above: Performed By: #### H H #### [facility] [address] [place] [address] Dr. Bella Jerome ALT [Catalytic activity/Vol] 32 U/L Normal 14-59 [facility] Comment on above: Performed By: #### H H #### [facility] [address] [place] [address] Dr. Bella Jerome Anion gap [Moles/Vol] 12.8 mmol/L Normal [facility] Comment on above: Performed By: #### H H #### [facility] [address] [place] [address] Dr. Bella Jerome AST [Catalytic activity/Vol] 23 U/L Normal 15-37 [facility] Comment on above: Performed By: #### H H #### [facility] [address] [place] [address] Dr. Bella Jerome Bilirubin [Mass/Vol] 0.6 mg/dL Normal 0.2-1.0 [facility] Comment on above: Performed By: #### H H #### [facility] [address] [place] [address] Dr. Bella Jerome Calcium [Mass/Vol] 9.0 mg/dL Normal 8.5-10.1 [facility] Comment on above: Performed By: #### H H #### [facility] [address] [place] [address] Dr. Bella Jerome Chloride [Moles/Vol] 102 mmol/L Normal 98-107 [facility] Comment on above: Performed By: #### H H #### [facility] [address] [place] [address] Dr. Bella Jerome CO2 [Moles/Vol] 28.2 mmol/L Normal 21.0-32.0 [facility] Comment on above: Performed By: #### H H #### [facility] [address] [address] [address] Bella Jerome Creatinine [Mass/Vol] 0.67 mg/dL Normal 0.55-1.02 [facility] Comment on above: Performed By: #### H H #### [facility] [address] [address] [address] Bella Jerome EGFR-AF AZERBAIJANI >60 Normal >=60 [facility] Comment on above: Performed By: #### H H #### [facility] [address] [place] [address] Dr. Bella Jerome EGFR-NON AF AZERBAIJANI >60 Normal >=60 [facility] Comment on above: Performed By: #### H H #### [facility] [address] [place] [address] Dr. Bella Jerome Globulin (S) [Mass/Vol] 4.2 g/dL Normal [facility] Comment on above: Performed By: #### H H #### [facility] [address] [place] [address] Dr. Bella Jerome Glucose [Mass/Vol] 88 mg/dL Normal 74-106 [facility] Comment on above: Performed By: #### H H #### [facility] [address] [place] [address] Dr. Bella Jerome Potassium [Moles/Vol] 4.0 mmol/L Normal 3.5-5.1 [facility] Comment on above: Performed By: #### H H #### [facility] [address] [place] [address] Dr. Bella Jerome Protein [Mass/Vol] 7.9 g/dL Normal 6.4-8.2 [facility] Comment on above: Performed By: #### H H #### [facility] [address] [place] [address] Dr. Bella Jerome Sodium [Moles/Vol] 139 mmol/L Normal 136-145 [facility] Comment on above: Performed By: #### H H #### [facility] [address] [place] [address] Dr. Bella Jerome Urea nitrogen [Mass/Vol] 12.0 mg/dL Normal 7.0-18.0 [facility] Comment on above: Performed By: #### H H #### [facility] [address] [place] [address] Dr. Bella Jerome Urea nitrogen/Creatinine [Mass ratio] 17.9 mg/mg Normal [facility] Comment on above: Performed By: #### H H #### [facility] [address] [place] [address] Dr. Bella Jerome TSHon 02-21-2023 TSH 2.463 uIU/mL Normal 0.358-3.740 [facility] Comment on above: Performed By: #### H H #### [facility] [address] [place] [address] Dr. Bella Jerome VITAMIN D 25 OHon 02-21-2023 VIT D 25-OH 23.1 ng/mL Normal [facility] Comment on above: Performed By: #### H H #### [facility] [address] [place] [address] Dr. Bella Jerome VIT D RANGES SEE BELOW Normal [facility] Comment on above: Result Comment: <20 ng/mL Vit D deficient 20 - <30 ng/mL Vit D insufficient 30 - 100 ng/mL Vit D sufficient >100 ng/mL Potential Toxicity Performed By: #### H H #### [facility] [address] [place] [address] Dr. Bella Jerome CBC AUTO DIFFon 12-26-2022 BASO # 0.0 103/ul Normal 0.0-0.1 [facility] Comment on above: Performed By: #### C BC #### [facility] [address] [place] [address] Dr. Bella Jerome Basophils/100 WBC (Bld) 0.3 % Normal 0.2-2.0 [facility] Comment on above: Performed By: #### C BC #### [facility] [address] [place] [address] Dr. Bella Jerome EO # 0.1 103/ul Normal 0.0-0.7 [facility] Comment on above: Performed By: #### C BC #### [facility] [address] [place] [address] Dr. Bella Jerome Eosinophils/100 WBC (Bld) 1.6 % Normal 0.9-7.0 [facility] Comment on above: Performed By: #### C BC #### [facility] [address] [place] [address] Dr. Bella Jerome Erythrocyte distribution width (RBC) [Ratio] 12.7 % Normal 11.0-15.0 [facility] Comment on above: Performed By: #### C BC #### [facility] [address] [place] [address] Dr. Bella Jerome Hematocrit (Bld) [Volume fraction] 37.2 % Normal 36.0-48.0 [facility] Comment on above: Performed By: #### C BC #### [facility] [address] [place] [address] Dr. Bella Jerome Hemoglobin (Bld) [Mass/Vol] 12.5 g/dL Normal 12.0-16.0 [facility] Comment on above: Performed By: #### C BC #### [facility] [address] [place] [address] Dr. Bella Jerome IG # 0.02 10e3/ul Normal 0.00-0.03 [facility] Comment on above: Performed By: #### C BC #### [facility] [address] [place] [address] Dr. Bella Jerome IG % 0.3 % Normal 0.0-0.5 [facility] Comment on above: Performed By: #### C BC #### [facility] [address] [place] [address] Dr. Bella Jerome LYMPH # 2.3 103/ul Normal 1.2-3.8 [facility] Comment on above: Performed By: #### C BC #### [facility] [address] [place] [address] Dr. Bella Jerome Lymphocytes/100 WBC (Bld) 34.1 % Normal 20.5-60.0 [facility] Comment on above: Performed By: #### C BC #### [facility] [address] [place] [address] Dr. Bella Jerome MANUAL DIFF REQ NO Normal [facility] Comment on above: Performed By: #### C BC #### [facility] [address] [place] [address] Dr. Bella Jerome MCH (RBC) [Entitic mass] 30.9 pg Normal 26.7-34.0 [facility] Comment on above: Performed By: #### C BC #### [facility] [address] [place] [address] Dr. Bella Jerome MCHC (RBC) [Mass/Vol] 33.6 g/dL Normal 29.9-35.2 [facility] Comment on above: Performed By: #### C BC #### [facility] [address] [place] [address] Dr. Bella Jerome MCV (RBC) [Entitic vol] 91.9 fL Normal 81.0-99.0 [facility] Comment on above: Performed By: #### C BC #### [facility] [address] [place] [address] Dr. Bella Jerome MONO # 0.4 103/ul Normal 0.3-0.8 [facility] Comment on above: Performed By: #### C BC #### [facility] [address] [place] [address] Dr. Bella Jerome Monocytes/100 WBC (Bld) 5.1 % Normal 1.7-12.0 [facility] Comment on above: Performed By: #### C BC #### [facility] [address] [place] [address] Dr. Bella Jerome NEUT # 4.0 103/ul Normal 1.4-6.5 [facility] Comment on above: Performed By: #### C BC #### [facility] [address] [place] [address] Dr. Bella Jerome Neutrophils/100 WBC (Bld) 58.6 % Normal 43.0-75.0 [facility] Comment on above: Performed By: #### C BC #### [facility] [address] [address] [address] Bella Jerome Platelet mean volume (Bld) [Entitic vol] 11.5 fL Normal 9.5-13.5 [facility] Comment on above: Performed By: #### C BC #### [facility] [address] [address] [address] Bella Jerome PLT 243 103/ul Normal 150-450 [facility] Comment on above: Performed By: #### C BC #### [facility] [address] [address] [address] Bella Jerome RBC 4.05 106/ul Critically low 4.20-5.40 [facility] Comment on above: Performed By: #### C BC #### [facility] [address] [address] [address] Bella Jerome WBC 6.8 103/ul Normal 4.0-11.0 [facility] Comment on above: Performed By: #### C BC #### [facility] [address] [address] [address] Bella Jerome FREE T4on 12-26-2022 Free T4 [Mass/Vol] 1.05 ng/dL Normal 0.76-1.46 [facility] Comment on above: Performed By: #### F T4, VITAD, B12FOL, IRON ####[facility] [address] [place], [place] [address]LeDr. Bella Jerome GLYCOHEMOGLOBIN A1Con 2022 ADA RECOMMENDATION SEE BELOW Normal [facility] Comment on above: Result Comment: ADA RECOMMENDED LIMIT 4.0 - 6.0 ADA THERAPEUTIC TARGET < 7.0 ACTION SUGGESTED > 7.0 Performed By: #### A 1C #### [facility] [address] [id number] Bella Jerome Glucose [Mass/Vol] 103 mg/dL Normal [facility] Comment on above: Performed By: #### A 1C #### [facility] [address] [address] [address] Bella Jerome HbA1c (Bld) [Mass fraction] 5.2 % Normal 4.5-6.2 [facility] Comment on above: Performed By: #### A 1C #### [facility] [address] [address] [address] Bella Jerome IRONon 12-26-2022 Iron [Mass/Vol] 74.0 ug/dL Normal 50.0-170.0 [facility] Comment on above: Performed By: #### F T4, VITAD, B12FOL, IRON ####[facility] [address] [address] Bella Jerome LIPID PROFILEon 12-26-2022 CHOL-HDL RATIO NORM SEE BELOW Normal [facility] Comment on above: Result Comment: 3.3 - 4.4 LOW RISK 4.4 - 7.1 AVERAGE RISK 7.1 - 11.0 MODERATE RISK >11.0 HIGH RISK Performed By: #### C MP, TSH, LIPID #### [facility] [address] [address] [address] Bella Jerome Cholesterol [Mass/Vol] 153 mg/dL Normal <=200 [facility] Comment on above: Performed By: #### C MP, TSH, LIPID #### [facility] [facility] [address] [address] [address] Bella Jerome Cholesterol in HDL [Mass/Vol] 67 mg/dL Critically high 40-60 [facility] Comment on above: Performed By: #### C MP, TSH, LIPID #### [facility] [address] [address] [address] Bella Jerome Cholesterol in LDL [Mass/Vol] 77.2 mg/dL Normal [facility] Comment on above: Performed By: #### C MP, TSH, LIPID #### [facility] [address] [address] [address] Bella Jerome Cholesterol.total/Ch olesterol in HDL [Mass ratio] 2.3 {ratio} Normal [facility] Comment on above: Performed By: #### C MP, TSH, LIPID #### [facility] [address] [address] [address] Bella Jerome HDL NORMAL > or = 60 mg/dl - LOW CARDIOVASCULAR RISK <40 mg/dl - HIGH CARDIOVASCULAR RISK Normal [facility] Comment on above: Performed By: #### C MP, TSH, LIPID #### [facility] [address] [address] [address] Belal Jerome LDL CALC NORMAL SEE BELOW Normal [facility] Comment on above: Result Comment: <100 mg/dl OPTIMAL 100 - 129 mg/dl NEAR OR ABOVE OPTIMAL 130 - 159 mg/dl BORDERLINE HIGH 160 - 189 mg/dl HIGH >190 mg/dl VERY HIGH Performed By: #### C MP, TSH, LIPID #### [facility] [address] [address] [address] Bella Jerome Triglyceride [Mass/Vol] 44 mg/dL Normal <=150 [facility] Comment on above: Performed By: #### C MP, TSH, LIPID #### [facility] [address] [address] [address] Bella Jerome VLDL CALC 8.8 mg/dL Normal [facility] Comment on above: Performed By: #### C MP, TSH, LIPID #### [facility] [address] [address] [address] Bella Jerome MICROALB CREAT RATIO RANDOMo n 12-26-2022 mALB 2.3 mg/L Normal <=30.0 [facility] Comment on above: Performed By: #### H H #### [facility] [address] [address] [address] Bella Jerome MALB CR RATIO 17.4 mg/g Normal 0.0-29.9 [facility] Comment on above: Performed By: #### H H #### [facility] [address] [address] [address] Bella Jerome MALB CR RATIO RANGE SEE BELOW Normal [facility] Comment on above: Result Comment: NO M ICROALBUMINURIA 0-29 MG/G CLINICAL MICROALBUMINURIA 30-300 MG/G MACROALBUMINURIA >300 MG/G Performed By: #### H H #### [facility] [address] [address] [address] Bella Jerome URINE CREAT 131.90 mg/dL Normal 20.00-300.00 [facility] Comment on above: Performed By: #### H H #### [facility] [address] [address] [address] Bella Jerome PROF 14(COMP METB)on 023 Albumin [Mass/Vol] 4.1 g/dL Normal 3.4-5.0 [facility] Comment on above: Performed By: #### C MP, TSH, LIPID #### [facility] [address] [address] [address] Bella Jerome Albumin/Globulin [Mass ratio] 1.3 {ratio} Normal [facility] Comment on above: Performed By: #### C MP, TSH, LIPID #### [facility] [address] [address] [address] Bella Jerome ALP [Catalytic activity/Vol] 124 U/L Critically high 46-116 [facility] Comment on above: Performed By: #### C MP, TSH, LIPID #### [facility] [address] [address] [address] Bella Jerome ALT [Catalytic activity/Vol] 16 U/L Normal 14-59 [facility] Comment on above: Performed By: #### C MP, TSH, LIPID #### [facility] [address] [address] [address] Bella Jerome Anion gap [Moles/Vol] 13.4 mmol/L Normal [facility] Comment on above: Performed By: #### C MP, TSH, LIPID #### [facility] [address] [address] [address] Bella Jerome AST [Catalytic activity/Vol] 17 U/L Normal 15-37 [facility] Comment on above: Performed By: #### C MP, TSH, LIPID #### [facility] [address] [address] [address] Bella Jerome Bilirubin [Mass/Vol] 0.8 mg/dL Normal 0.2-1.0 [facility] Comment on above: Performed By: #### C MP, TSH, LIPID #### [facility] [address] [address] [address] Bella Jerome Calcium [Mass/Vol] 8.9 mg/dL Normal 8.5-10.1 [facility] Comment on above: Performed By: #### C MP, TSH, LIPID #### [facility] [address] [place] [address] Dr. Bella Jerome Chloride [Moles/Vol] 103 mmol/L Normal 98-107 [facility] Comment on above: Performed By: #### C MP, TSH, LIPID #### [facility] [address] [place] [address] Dr. Bella Jerome CO2 [Moles/Vol] 25.6 mmol/L Normal 21.0-32.0 [facility] Comment on above: Performed By: #### C MP, TSH, LIPID #### [facility] [address] [place] [address] Dr. Bella Jerome Creatinine [Mass/Vol] 0.55 mg/dL Normal 0.55-1.02 [facility] Comment on above: Performed By: #### C MP, TSH, LIPID #### [facility] [address] [place] [address] Dr. Bella Jerome EGFR-AF AZERBAIJANI >60 Normal >=60 [facility] Comment on above: Performed By: #### C MP, TSH, LIPID #### [facility] [address] [place] [address] Dr. Bella Jerome EGFR-NON AF AZERBAIJANI >60 Normal >=60 [facility] Comment on above: Performed By: #### C MP, TSH, LIPID #### [facility] [address] [place] [address] Dr. Bella Jerome Globulin (S) [Mass/Vol] 3.1 g/dL Normal [facility] Comment on above: Performed By: #### C MP, TSH, LIPID #### [facility] [address] [place] [address] Dr. Bella Jerome Glucose [Mass/Vol] 82 mg/dL Normal 74-106 [facility] Comment on above: Performed By: #### C MP, TSH, LIPID #### [facility] [address] [place] [address] Dr. Bella Jerome Potassium [Moles/Vol] 4.0 mmol/L Normal 3.5-5.1 [facility] Comment on above: Performed By: #### C MP, TSH, LIPID #### [facility] [address] [place] [address] Dr. Bella Jerome Protein [Mass/Vol] 7.2 g/dL Normal 6.4-8.2 [facility] Comment on above: Performed By: #### C MP, TSH, LIPID #### [facility] [address] [place] [address] Dr. Bella Jerome Sodium [Moles/Vol] 138 mmol/L Normal 136-145 [facility] Comment on above: Performed By: #### C MP, TSH, LIPID #### [facility] [address] [place] [address] Dr. Bella Jerome Urea nitrogen [Mass/Vol] 14.0 mg/dL Normal 7.0-18.0 [facility] Comment on above: Performed By: #### C MP, TSH, LIPID #### [facility] [address] [place] [address] Dr. Bella Jerome Urea nitrogen/Creatinine [Mass ratio] 25.5 mg/mg Normal [facility] Comment on above: Performed By: #### C MP, TSH, LIPID #### [facility] [address] [place] [address] Dr. Bella Jerome TSHon 12-26-2022 TSH 0.224 uIU/mL Critically low 0.358-3.740 [facility] Comment on above: Performed By: #### C MP, TSH, LIPID #### [facility] [address] [place] [address] Dr. Bella Jerome VIT B12 AND FOLATEon 023 Cobalamin (Vitamin B12) [Mass/Vol] 702.0 pg/mL Normal 193.0-986.0 [facility] Comment on above: Performed By: #### F T4, VITAD, B12FOL, IRON ####[facility] [address] [address]Dr. Bella Jerome FOLATE 25.10 ng/mL Normal 8.60-58.90 [facility] Comment on above: Performed By: #### F T4, VITAD, B12FOL, IRON ####[facility] [address] [address]Dr. Bella Jerome VITAMIN D 25 OHon 12-26-2022 VIT D 25-OH 25.4 ng/mL Normal [facility] Comment on above: Performed By: #### F T4, VITAD, B12FOL, IRON ####[facility] [address] [address]DrWill Jerome VIT D RANGES SEE BELOW [facility] Comment on above: Result Comment: <20 ng/mL Vit D deficient 20 - <30 ng/mL Vit D insufficient 30 - 100 ng/mL Vit D sufficient >100 ng/mL Potential Toxicity Performed By: #### F T4, VITAD, B12FOL, IRON ####[facility] [address] [address]Dr. Bella Jerome PAP ACOG PANEL 2: 23 to 31on 12-18-2022 . . Normal [facility] Comment on above: Performed By: #### C BC #### [facility] [address] [address] [address] Bella Jerome Age Gdln ACOG Testing - Normal [facility] Comment on above: Performed By: #### C BC #### [facility] [address] [address] [address] Bella Jerome DIAGNOSIS: Comment Normal [facility] Comment on above: Result Comment: NEGA TIVE FOR INTRAEPITHELIAL LESION OR MALIGNANCY. Performed By: #### C BC #### [facility] [address] [address] [address] Bella Jerome Methodology: Comment Normal [facility] Comment on above: Result Comment: This liquid based ThinPrep(R) pap test was screened with the use of an image guided system. Performed By: #### C BC #### [facility] [address] [address] [address] Bella Jerome Note: Comment Normal [facility] Comment on above: Result Comment: The Pap smear is a screening test designed to aid in the detection of premalignant and malignant conditions of the uterine cervix. It is not a diagnostic procedure and should not be used as the sole means of detecting cervical cancer. Both false-positive and false-negative reports do occur. . Performed By: #### C BC #### [facility] [address] [address] [address] Bella Jerome Performed by: Comment Normal [facility] Comment on above: Result Comment: Byron Irby, Paint Dipper (ASCP) Performed By: #### C BC #### [facility] [address] [place] [address] Dr. Bella Jerome Reflex Criteria: Comment Normal [facility] Comment on above: Result Comment: The HPV DNA reflex criteria were not met with this specimen result therefore, no HPV testing was performed. . Performed By: #### C BC #### [facility] [address] [place] [address] Dr. Bella Jerome Specimen adequacy: Comment Normal [facility] Comment on above: Result Comment: Sati sfactory for evaluation. Endocervical and/or squamous metaplastic cells (endocervical component) are present. Performed By: #### C BC #### [facility] [address] [place] [address] Dr. Bella Jerome CBC W MANUAL DIFFon 09-07-20 22 ATYPICAL LYMPH # Normal [facility] Comment on above: Performed By: #### C BCMAN ####[facility] [address] [address]Dr. Bella Jerome ATYPICAL LYMPH % Normal [facility] Comment on above: Performed By: #### C BCMAN ####[facility] [address] [address]Dr. Bella Jerome BAND # 0.2 103/ul Normal 0.0-0.3 [facility] Comment on above: Performed By: #### C BCMAN ####[facility] [address] [address]Dr. Bella Jerome BAND % 1 % Normal 0-5 [facility] Comment on above: Performed By: #### C PEDRO ####[facility] [address] [address]Dr. Bella Jerome BASOM # 0.00 103/ul Normal 0.00-0.10 [facility] Comment on above: Performed By: #### C BCRELL ####[facility] [address] [address]Dr. Bella Jerome BASOM % 0.0 % Critically low 0.2-2.0 [facility] Comment on above: Performed By: #### C PEDRO ####[facility] [address] [address]Dr. Bella Jerome BLAST # Normal [facility] Comment on above: Performed By: #### C PEDRO ####[facility] [address] [address]Dr. Bella Jerome BLAST % Normal [facility] Comment on above: Performed By: #### C PEDRO ####[facility] [address] [place], [place] [address]Dr. Bella Jerome CORRECTED WBC Normal 4.0-11.0 [facility] Comment on above: Performed By: #### C PEDRO ####[facility] [address] [address]Dr. Bella Jerome EOS # 0.00 103/ul Normal 0.00-0.70 [facility] Comment on above: Performed By: #### C PEDRO ####[facility] [address] [address]Dr. Bella Jerome EOS% 0.0 % Critically low 0.9-7.0 [facility] Comment on above: Performed By: #### C PEDRO ####[facility] [address] [place], [place] [address]Dr. Bella Jerome HCT 30.5 % Critically low 36.0-48.0 [facility] Comment on above: Performed By: #### C PEDRO ####[facility] [address] [place], [place] [address]Tl. Bella Jerome HGB 10.5 g/dl Critically low 12.0-16.0 [facility] Comment on above: Performed By: #### C PEDRO ####[facility] [address] [place], [place] [address]Fx. Bella Jerome LYMPHM # 2.78 103/ul Normal 1.20-3.80 [facility] Comment on above: Performed By: #### C PEDRO ####[facility] [address] [place], [place] [address]Im. Bella Jerome LYMPHM% 13.0 % Critically low 20.5-60.0 [facility] Comment on above: Performed By: #### C PEDRO ####[facility] [address] [place], [place] [address]Rw. Bella Jerome MCH 32.8 pg Normal 26.7-34.0 [facility] Comment on above: Performed By: #### C PEDRO ####[facility] [address] [place], [place] [address]Ba. Bella Jerome MCHC 34.4 g/dl Normal 29.9-35.2 [facility] Comment on above: Performed By: #### Jennifer VASQUEZ ####[facility] [address] [place], [place] [address]Ud. Bella Jerome MCV 95.3 fL Normal 81.0-99.0 [facility] Comment on above: Performed By: #### Jennifer VASQUEZ ####[facility] [address] [place], [place] [address]Tj. Bella Jerome METAMYELOCYTE # Normal [facility] Comment on above: Performed By: #### C PEDRO ####[facility] [address] [place], [place] [address]Br. Bella Jerome METAMYELOCYTE % Normal [facility] Comment on above: Performed By: #### Jennifer VASQUEZ ####[facility] [address] [place], [place] [address]Xz. Bella Jerome MONOM# 2.35 103/ul Critically high 0.30-0.80 [facility] Comment on above: Performed By: #### C PEDRO ####[facility] [address] [address]Dr. Bella Jerome MONOM% 11.0 % Normal 1.7-12.0 [facility] Comment on above: Performed By: #### C PEDRO ####[facility] [address] [address]Dr. Bella Jerome MPV 11.1 fL Normal 9.5-13.5 [facility] Comment on above: Performed By: #### C PEDRO ####[facility] [address] [address]Dr. Bella Jerome MYELOCYTE # Normal [facility] Comment on above: Performed By: #### C PEDRO ####[facility] [address] [address]Dr. Bella Jerome MYELOCYTE % Normal [facility] Comment on above: Performed By: #### C PEDRO ####[facility] [address] [address]Dr. Bella Jerome NRBC Normal [facility] Comment on above: Performed By: #### C PEDRO ####[facility] [address] [address]Dr. Bella Jerome PLT 227 103/ul Normal 150-450 [facility] Comment on above: Performed By: #### C PEDRO ####[facility] [address] [address]Dr. Bella Jerome RBC 3.20 106/ul Critically low 4.20-5.40 [facility] Comment on above: Performed By: #### C PEDRO ####[facility] [address] [address]Dr. Bella Jerome RDW 12.8 % Normal 11.0-15.0 [facility] Comment on above: Performed By: #### C PEDRO ####[facility] [address] [address]Dr. Bella Jerome SEG # 16.05 103/ul Critically high 1.40-6.50 [facility] Comment on above: Performed By: #### C BCRELL ####[facility] [address] [address]Dr. Bella Jerome SEG % 75.0 % Normal 43.0-75.0 [facility] Comment on above: Performed By: #### C BCMAN ####[facility] [address] [address]DrWill Jerome WBC 21.4 103/ul Critically high 4.0-11.0 [facility] Comment on above: Performed By: #### C PEDRO ####[facility] [address] [address]DrWill Jerome CBC AUTO DIFFon 09-05-2022 BASO # 0.0 103/ul Normal 0.0-0.1 [facility] Comment on above: Performed By: #### C BC #### [facility] [address] [address] [address] Bella Jerome Basophils/100 WBC (Bld) 0.2 % Normal 0.2-2.0 [facility] Comment on above: Performed By: #### C BC #### [facility] [address] [address] [address] Bella Jerome EO # 0.1 103/ul Normal 0.0-0.7 [facility] Comment on above: Performed By: #### C BC #### [facility] [address] [address] [address] Bella Jerome Eosinophils/100 WBC (Bld) 0.6 % Critically low 0.9-7.0 [facility] Comment on above: Performed By: #### C BC #### [facility] [address] [address] [address] Bella Jerome Erythrocyte distribution width (RBC) [Ratio] 12.6 % Normal 11.0-15.0 [facility] Comment on above: Performed By: #### C BC #### [facility] [address] [place] [address] Dr. Bella Jerome Hematocrit (Bld) [Volume fraction] 32.5 % Critically low 36.0-48.0 [facility] Comment on above: Performed By: #### C BC #### [facility] [address] [place] [address] Dr. Bella Jerome Hemoglobin (Bld) [Mass/Vol] 11.1 g/dL Critically low 12.0-16.0 [facility] Comment on above: Performed By: #### C BC #### [facility] [address] [place] [address] Dr. Bella Jerome IG # 0.14 10e3/ul Critically high 0.00-0.03 [facility] Comment on above: Performed By: #### C BC #### [facility] [address] [place] [address] Dr. Bella Jerome IG % 1.1 % Critically high 0.0-0.5 [facility] Comment on above: Performed By: #### C BC #### [facility] [address] [place] [address] Dr. Bella Jerome LYMPH # 2.6 103/ul Normal 1.2-3.8 [facility] Comment on above: Performed By: #### C BC #### [facility] [address] [place] [address] Dr. Bella Jerome Lymphocytes/100 WBC (Bld) 20.2 % Critically low 20.5-60.0 [facility] Comment on above: Performed By: #### C BC #### [facility] [address] [place] [address] Dr. Bella Jerome MANUAL DIFF REQ NO Normal [facility] Comment on above: Performed By: #### C BC #### [facility] [address] [place] [address] Dr. Bella Jerome MCH (RBC) [Entitic mass] 32.2 pg Normal 26.7-34.0 [facility] Comment on above: Performed By: #### C BC #### [facility] [address] [place] [address] Dr. Bella Jerome MCHC (RBC) [Mass/Vol] 34.2 g/dL Normal 29.9-35.2 [facility] Comment on above: Performed By: #### C BC #### [facility] [address] [place] [address] Dr. Bella Jerome MCV (RBC) [Entitic vol] 94.2 fL Normal 81.0-99.0 [facility] Comment on above: Performed By: #### C BC #### [facility] [address] [place] [address] Dr. Bella Jerome MONO # 0.9 103/ul Critically high 0.3-0.8 [facility] Comment on above: Performed By: #### C BC #### [facility] [address] [place] [address] Dr. Bella Jerome Monocytes/100 WBC (Bld) 7.1 % Normal 1.7-12.0 [facility] Comment on above: Performed By: #### C BC #### [facility] [address] [place] [address] Dr. Bella Jerome NEUT # 8.9 103/ul Critically high 1.4-6.5 [facility] Comment on above: Performed By: #### C BC #### [facility] [address] [place] [address] Dr. Bella Jerome Neutrophils/100 WBC (Bld) 70.8 % Normal 43.0-75.0 [facility] Comment on above: Performed By: #### C BC #### [facility] [address] [place] [address] Dr. Bella Jerome Platelet mean volume (Bld) [Entitic vol] 11.0 fL Normal 9.5-13.5 [facility] Comment on above: Performed By: #### C BC #### [facility] [address] [place] [address] Dr. Bella Jerome PLT 234 103/ul Normal 150-450 [facility] Comment on above: Performed By: #### C BC #### [facility] [address] [place] [address] Dr. Bella Jerome RBC 3.45 106/ul Critically low 4.20-5.40 [facility] Comment on above: Performed By: #### C BC #### [facility] [address] [place], [place] [address] Dr. Bella Jerome WBC 12.6 103/ul Critically high 4.0-11.0 [facility] Comment on above: Performed By: #### C BC #### [facility] [address] [place], [place] [address] Dr. Bella Jerome Covid-19 PCR (CVDTB)on SARS-CoV-2 (COVID-19) RNA FAVIAN+probe Ql (Unsp spec) Not detected Normal NOT DETECTED [facility] Comment on above: Result Comment: When [...] for this test is supported by the [place] [employer] and Human Service's declaration that [...] be used). Performed By: #### C VDTBH ####[facility] [address] [place], [place] [address]Uy. Bella Jerome DRUG SCREEN RAPID (URINE)on 09-05-2022 AMP Negative Normal NEGATIVE [facility] Comment on above: Performed By: #### D RUGRPD ####[facility] [address] [place], [place] [address]NnWill Jerome BAR Negative Normal NEGATIVE [facility] Comment on above: Performed By: #### D RUGRPD ####[facility] [address] [place], [place] [address]Dr. Bella Jerome BUP Negative Normal NEGATIVE [facility] Comment on above: Performed By: #### D RUGRPD ####[facility] [address] [place], [place] [address]Dr. Liwally Jerome BZO Negative Normal NEGATIVE [facility] Comment on above: Performed By: #### D RUGRPD ####[facility] [address] [place], [place] [address]Dr. Liwally Jerome NGA Negative Normal NEGATIVE [facility] Comment on above: Performed By: #### D RUGRPD ####[facility] [address] [place], [place] [address]Dr. Bella Jerome CUT-OFFS SEE BELOW Normal [facility] Comment on above: Result Comment: AMP (Amphetamine): 500ng/mL, BAR (Barbituates): 200 ng/mL, BZO (Benzodiazepines): 150 ng/mL, BUP (Buprenorphine): 10 ng/mL, NGA (Cocaine): 150 ng/mL, mAMP (Methamphetamine): 500 ng/mL, MTD (Methadone): 200 ng/mL, OPI (Opiates): 100 ng/mL, OXY (Oxycodone): 100 ng/mL, PCP (Phencyclidine): 25 ng/mL, PPX (Propoxyphene): 300 ng/mL, THC (Cannabinoids): 50 ng/mL, TCA (Trycyclic Antidepressants): 300 ng/mL Performed By: #### D RUGRPD ####[facility] [address] [place], [place] [address]Dr. Bella Jerome DRUG CUT HEADER DRUG CLASS TEST SYSTEM CUT-OFF CONCENTRATIONS ARE FOLLOWS: Normal [facility] Comment on above: Performed By: #### D RUGRPD ####[facility] [facility] [address] [place], [place] [address]Dr. Bella Jerome mAMP Negative Normal NEGATIVE [facility] Comment on above: Performed By: #### D RUGRPD ####[facility] [address] [place], [place] [address]Dr. Bella Jerome MTD Negative Normal NEGATIVE [facility] Comment on above: Performed By: #### D RUGRPD ####[facility] [address] [place] [id number]. Bella Jerome OPI Negative Normal NEGATIVE [facility] Comment on above: Performed By: #### D RUGRPD ####[facility] [address] [place] [id number]. Yiwally Jerome OXY Negative Normal NEGATIVE [facility] Comment on above: Performed By: #### D RUGRPD ####[facility] [address] [place] [address]Dr. Yiwally Jerome PCP Negative Normal NEGATIVE [facility] Comment on above: Performed By: #### D RUGRPD ####[facility] [address] [place] [address]Dr. Bella Jerome PPX Negative Normal NEGATIVE [facility] Comment on above: Performed By: #### D RUGRPD ####[facility] [address] [address]Dr. Yiwally Jerome TCA Negative Normal NEGATIVE [facility] Comment on above: Performed By: #### D RUGRPD ####[facility] [address] [place] [address]Dr. Bella Jerome THC Negative Normal NEGATIVE [facility] Comment on above: Performed By: #### D RUGRPD ####[facility] [address] [place], [place] [address]Dr. Bella Jerome TYPE AND SCREENon 09-05-2022 TYPE AND SCREEN Negative Normal [facility] Comment on above: Performed By: #### T NS ####[facility] [address] [place], [place] [address]Dr. Bella Jerome US PREG BIOPHY W NON [...] by: MANUELITO GREGG Date: 2022-08-31 17:06 Normal [facility] US PREG GROWTHon 08-30-2022 US PREG [...] by: MANUELITO GREGG Date: 2022-08-30 17:59 Normal [facility] US PREG BIOPHY W NON STRESSo [...] by: MANUELITO GREGG Date: 2022-08-24 17:10 Normal [facility] FREE T4on 08-21-2022 Free T4 [Mass/Vol] 0.90 ng/dL Normal 0.76-1.46 [facility] Comment on above: Performed By: #### C BC #### [facility] [address] [place], [place] [address] Dr. Bella Jerome TSHon 08-21-2022 TSH 1.033 uIU/mL Normal 0.358-3.740 [facility] Comment on above: Performed By: #### H H #### [facility] [address] [place] [address] [address] Bella Jerome US PREG BIOPHY W [...] by: MANUELITO GREGG Date: 2022-08-17 18:33 Normal [facility] GROUP B STREP CULTUREon 07-28 S. agalactiae Ag Ql (Unsp spec) Culture Observations: NEGATIVE FOR GROUP B STREPTOCOCCUS. Normal [facility] Comment on above: Performed By: #### G BSCX ####[facility] [address] [place] [address]Dr. Bella Jerome US PREG BIOPHY W NON [...] GREGG Date: 2022-08-10 16:36 Normal [facility] PREG GROWTHon 08-10-2022 US PREG GROWTH EXAMINATION: [...] GREGG Date: 2022-08-10 16:37 Normal [facility] PREG GROWTHon 07-25-2022 US PREG GROWTH EXAMINATION: [...] MANUELITO GREGG Date: 2022-07-25 18:18 Normal [facility] FREE T4on 07-24-2022 Free T4 [Mass/Vol] 0.98 ng/dL Normal 0.76-1.46 [facility] Comment on above: Performed By: #### F T4 #### [facility] [address] [address] [address] Bella Jerome TSHon 07-24-2022 TSH 1.196 uIU/mL Normal 0.358-3.740 [facility] Comment on above: Performed By: #### T SH ####[facility] [address] [place] [address]Dr. Bella Jerome UA (CLEAN/CATCH) DENTAL MOLD MAKER/MICRO I F IND.on 07-20-2022 Bilirubin Ql (U) Negative Normal NEGATIVE [facility] Comment on above: Performed By: #### H H #### [facility] [address] [place] [address] Dr. Bella Jerome Clarity (U) CLEAR Normal CLEAR [facility] Comment on above: Performed By: #### H H #### [facility] [address] [place] [address] Dr. Bella Jerome Color (U) LT. YELLOW Normal YELLOW [facility] Comment on above: Performed By: #### H H #### [facility] [address] [address] [address] Bella Jerome Glucose Ql (U) Negative Normal NEGATIVE [facility] Comment on above: Performed By: #### H H #### [facility] [address] [address] [address] Bella Jerome Hemoglobin Ql (U) Negative Normal NEGATIVE [facility] Comment on above: Performed By: #### H H #### [facility] [address] [place] [address] Dr. Bella Jerome Ketones Ql (U) Negative Normal NEGATIVE [facility] Comment on above: Performed By: #### H H #### [facility] [address] [address] [address] Bella Jerome LEUKOCYTES Negative Normal NEGATIVE [facility] Comment on above: Performed By: #### H H #### [facility] [address] [place] [address] Dr. Bella Jerome Nitrite Ql (U) Negative Normal NEGATIVE [facility] Comment on above: Performed By: #### H H #### [facility] [address] [address] [address] Bella Jerome pH (U) 7.0 [pH] Normal 5-9 [facility] Comment on above: Performed By: #### H H #### [facility] [address] [place] [address] Dr. Bella Jerome SPEC GRAVITY <=1.005 Abnormal 1.005-<=1.025 [facility] Comment on above: Performed By: #### H H #### [facility] [address] [place] [address] Dr. Bella Jerome UA PROTEIN Negative Normal NEGATIVE/ TRACE [facility] Comment on above: Performed By: #### H H #### [facility] [address] [place] [address] Dr. Bella Jerome UR MICRO IND NOT INDICATED Normal [facility] Comment on above: Performed By: #### H H #### [facility] [address] [place] [address] Dr. Bella Jerome Urobilinogen Qn (U) 0.2 {Kimberlee'U}/dL Normal 0.2 - 1. 0 [facility] Comment on above: Performed By: #### H H #### [facility] [address] [place] [address] Dr. Bella Jerome US PREG GROWTHon 06-27-2022 [...] by: RAGINI SANTOS Date: 2022-06-27 16:23 Normal [facility] FREE T4on 06-20-2022 Free T4 [Mass/Vol] 0.82 ng/dL Normal 0.76-1.46 [facility] Comment on above: Performed By: #### H H #### [facility] [address] [place] [address] Dr. Bella Jerome GLUCOSE - 1HRon 06-20-2022 Glucose [Mass/Vol] 127 mg/dL Critically high 74-106 [facility] Comment on above: Performed By: #### H H #### [facility] [address] [address] [address] Bella Jerome HEMOGRAM AND PLATELon 2021 Hematocrit (Bld) [Volume fraction] 32.4 % Critically low 36.0-48.0 [facility] Comment on above: Performed By: #### H H #### [facility] [address] [address] [address] Bella Jerome Hemoglobin (Bld) [Mass/Vol] 10.9 g/dL Critically low 12.0-16.0 [facility] Comment on above: Performed By: #### H H #### [facility] [address] [place] [address] Dr. Bella Jerome MCH (RBC) [Entitic mass] 32.9 pg Normal 26.7-34.0 [facility] Comment on above: Performed By: #### H H #### [facility] [address] [place] [address] Dr. Bella Jerome MCHC (RBC) [Mass/Vol] 33.6 g/dL Normal 29.9-35.2 [facility] Comment on above: Performed By: #### H H #### [facility] [address] [place] [address] Dr. Bella Jerome MCV (RBC) [Entitic vol] 97.9 fL Normal 81.0-99.0 [facility] Comment on above: Performed By: #### H H #### [facility] [address] [place] [address] [address] Bella Jerome PLT 241 103/ul Normal 150-450 [facility] Comment on above: Performed By: #### H H #### [facility] [address] [place] [address] Dr. Bella Jerome RBC 3.31 106/ul Critically low 4.20-5.40 [facility] Comment on above: Performed By: #### H H #### [facility] [address] [address] [address] Bella Jerome WBC 11.3 103/ul Critically high 4.0-11.0 [facility] Comment on above: Performed By: #### H H #### [facility] [address] [place] [address] Dr. Bella Jerome TSHon 06-20-2022 TSH 3.044 uIU/mL Normal 0.358-3.740 [facility] Comment on above: Performed By: #### C BC #### [facility] [address] [place] [address] Dr. Bella Jerome US PREG INCOMPLETE ANATOMYon 05-24-2022 US PREG INCOMPLETE ANATOMY EXAMINATION: US PREG INCOMPLETE ANATOMY HISTORY: screening COMPARISON: Ultrasound anatomy 04/26/2022 FINDINGS: Presentation: Cephalic Heart rate: 154 bpm Anatomy: Cervical, thoracic, and lumbar spine HERNANDO: 09/13/2022 IMPRESSION: 1. Adequate visualization of the cervical, thoracic, and lumbar spine; no appreciable abnormality. Electronically authenticated by: RAGINI SANTOS Date: 2022-05-24 17:33 Normal [facility] US PREG ANATOMY SINGLEon 06- 30-2022 US PREG ANATOMY SINGLE EXAMINATION: US PREG [...] MANUELITO GREGG Date: 2022-04-26 16:54 Normal [facility] CHLAMYDIA/GONOCOCCUS FAVIAN (SW AB/URINE/PAPon 04-19-2022 Chlamydia trachomatis, FAVIAN Negative Normal Negative [facility] Comment on above: Performed By: #### C T/NGNA ####[facility] [address] [place] [address]DrWill Jerome Neisseria gonorrhoeae, FAVIAN Negative Normal Negative [facility] Comment on above: Performed By: #### C T/NGNA ####[facility] [address] [place] [address]Dr. Bella Jerome VAGINITIS/VAGINOSIS DNA PROB Leonid 04-18-2022 Jessica species Negative Normal Negative [facility] Comment on above: Performed By: #### H H #### [facility] [address] [place] [address] Dr. Bella Jerome Gardnerella vaginalis Negative Normal Negative [facility] Comment on above: Performed By: #### H H #### [facility] [address] [place] [address] [address] Bella Jerome Trichomonas vaginalis Negative Normal Negative [facility] Comment on above: Performed By: #### H H #### [facility] [address] [place] [address] [address] Bella Jerome FREE T4on 04-05-2022 Free T4 [Mass/Vol] 0.88 ng/dL Normal 0.76-1.46 [facility] Comment on above: Performed By: #### F T4 #### [facility] [address] [place] [address] Dr. Bella Jerome TSHon 04-05-2022 TSH 1.786 uIU/mL Normal 0.358-3.740 [facility] Comment on above: Performed By: #### T SH ####[facility] [address] [place] [address]Dr. Bella Jerome TSH RANGE SEE BELOW Normal [facility] Comment on above: Result Comment: <0.3 4 UIU/ml HYPERTHYROID 0.34-5.60 UIU/ml EUTHYROID >5.60 UIU/ml HYPOTHYROID Performed By: #### T SH ####[facility] [address] [place] [address]Dr. Bella Jerome FREE T4on 02-26-2022 Free T4 [Mass/Vol] 1.06 ng/dL Normal 0.76-1.46 [facility] Comment on above: Performed By: #### C BC #### [facility] [address] [place] [address] Dr. Bella Jerome TSHon 02-26-2022 TSH 2.024 uIU/mL Normal 0.470-4.680 [facility] Comment on above: Performed By: #### C BC #### [facility] [address] [place], [place] [address] Dr. Bella Jerome TSH RANGE SEE BELOW Normal [facility] Comment on above: Result Comment: <0.3 4 UIU/ml HYPERTHYROID 0.34-5.60 UIU/ml EUTHYROID >5.60 UIU/ml HYPOTHYROID Performed By: #### C BC #### [facility] [address] [place], [place] [address] Dr. Bella Jerome Vital Signs Date Time Vital Sign Value Performing Clinician Facility 08-18-2024 13:50-0400 Body mass index (BMI) [Ratio] 43.54 kg/m2 Agus Marquita DO Work Phone: [facility] 08-18-2024 13:50-0400 Body weight 111.49 kg Agus Marquita DO Work Phone: [facility] 08-18-2024 13:50-0400 Diastolic blood pressure 74 mm[Hg] Agus Marquita DO Work Phone: [facility] 08-18-2024 13:50-0400 Systolic blood pressure 118 mm[Hg] Agus Marquita DO Work Phone: [facility] 08-04-2024 13:30-0400 Body mass index (BMI) [Ratio] 44.37 kg/m2 Marylou CARBAJAL Work Phone: [facility] 08-04-2024 13:30-0400 Body weight 113.63 kg Marylou CARBAJAL Work Phone: [facility] 08-04-2024 13:30-0400 Diastolic blood pressure 78 mm[Hg] Marylou CARBAJAL Work Phone: [facility] 08-04-2024 13:30-0400 Systolic blood pressure 128 mm[Hg] Marylou CARBAJAL Work Phone: [facility] 02-13-2024 11:24-0400 Body height 160.02 cm [facility] 02-13-2024 11:24-0400 Body mass index (BMI) [Ratio] 42.3 kg/m2 [facility] 02-13-2024 11:24-0400 Body weight 108.49 kg [facility] 02-13-2024 11:24-0400 Diastolic blood pressure 70 mm[Hg] [facility] 02-13-2024 11:24-0400 Heart rate 69 /min [facility] 02-13-2024 11:24-0400 Respiratory rate 18 /min [facility] 02-13-2024 11:24-0400 SaO2% (BldA) [Mass fraction] 98 % [facility] 02-13-2024 11:24-0400 Systolic blood pressure 118 mm[Hg] [facility] 10-31-2023 15:00-0500 Body height 160.02 cm Sandra Austin Other [facility] [employer] Other 10-31-2023 15:00-0500 Body mass index (BMI) [Ratio] 45.41 kg/m2 Sandra Austin Other [facility] [employer] Other 10-31-2023 15:00-0500 Body temperature 98.5 [degF] Sandra Austin Other [facility] [employer] Other 10-31-2023 15:00-0500 Body weight 116.3 kg Sandra Austin Other [facility] [employer] Other 10-31-2023 15:00-0500 Diastolic blood pressure 80 mm[Hg] Sandra Austin Other [facility] [employer] Other 10-31-2023 15:00-0500 Respiratory rate 18 /min Sandra Austin Other [facility] [employer] Other 10-31-2023 15:00-0500 SaO2% (BldA) [Mass fraction] 98 % Sandra Austin Other [employer] [facility] Other 10-31-2023 15:00-0500 Systolic blood pressure 128 mm[Hg] Sandra Austin Other [facility] Other 06-24-2023 14:30-0400 Body height 160.02 cm Sandra Austin Other [facility] Other 06-24-2023 14:30-0400 Body mass index (BMI) [Ratio] 44.87 kg/m2 Sandra Austin Other [employer] [facility] Other 06-24-2023 14:30-0400 Body weight 114.9 kg Sandra Austin Other [employer] [facility] Other 06-24-2023 14:30-0400 Diastolic blood pressure 60 mm[Hg] Sandra Austin Other [facility] Other 06-24-2023 14:30-0400 Respiratory rate 18 /min Sandra Austin Other [facility] Other 06-24-2023 14:30-0400 SaO2% (BldA) [Mass fraction] 99 % Sandra Austin Other [employer] [facility] Other 06-24-2023 14:30-0400 Systolic blood pressure 110 mm[Hg] Sandra Austin Other [employer] [facility] Other 04-15-2023 09:25-0400 Body height 160.02 cm Ramonita Greenberg Other [employer] [facility] Other 04-15-2023 09:25-0400 Body mass index (BMI) [Ratio] 41.8 kg/m2 Ramonita Greenberg Other [employer] [facility] Other 04-15-2023 09:25-0400 Body temperature 98.5 [degF] Ramonita Greenberg Other [facility] Other 04-15-2023 09:25-0400 Body weight 107.05 kg Ramonita Greenberg Other [facility] Other 04-15-2023 09:25-0400 Respiratory rate 18 /min Ramonita Greenberg Other [facility] Other 04-15-2023 09:25-0400 SaO2% (BldA) [Mass fraction] 97 % Ramonita Greenberg Other [employer] [facility] Other 02-21-2023 14:45-0400 Body height 160.02 cm Sandra Austin Other [employer] [facility] Other 02-21-2023 14:45-0400 Body mass index (BMI) [Ratio] 41.39 kg/m2 Sandra Austin Other [employer] [facility] Other 02-21-2023 14:45-0400 Body weight 106.01 kg Sandra Austin Other [employer] [facility] Other 02-21-2023 14:45-0400 Diastolic blood pressure 60 mm[Hg] Sandra Austin Other [employer] [facility] Other 02-21-2023 14:45-0400 Respiratory rate 18 /min Sandra Austin Other [facility] Other 02-21-2023 14:45-0400 SaO2% (BldA) [Mass fraction] 98 % Sandra Austin Other [facility] Other 02-21-2023 14:45-0400 Systolic blood pressure 110 mm[Hg] Sandra Austin Other [employer] [facility] Other 12-24-2022 14:30-0500 Body height 160.02 cm Sandra Austin Other [employer] [facility] Other 12-24-2022 14:30-0500 Body mass index (BMI) [Ratio] 40.83 kg/m2 Sandra Austin Other [employer] [facility] Other 12-24-2022 14:30-0500 Body weight 104.55 kg Sandra Austin Other [employer] [facility] Other 12-24-2022 14:30-0500 Diastolic blood pressure 70 mm[Hg] Sandra Austin Other [employer] Other 12-24-2022 14:30-0500 Respiratory rate 18 /min Sandra Austin Other [employer] [facility] Other 12-24-2022 14:30-0500 SaO2% (BldA) [Mass fraction] 99 % Sandra Austin Other [employer] Other 12-24-2022 14:30-0500 Systolic blood pressure 118 mm[Hg] Sandra Austin Other [facility] Other 12-21-2021 16:30-0500 Body height 160.02 cm Sandra Austin Other [employer] [facility] Other 12-21-2021 16:30-0500 Body mass index (BMI) [Ratio] 38.58 kg/m2 Sandra Austin Other [facility] Other 12-21-2021 16:30-0500 Body temperature 97.3 [degF] Sandra Austin Other [facility] Other 12-21-2021 16:30-0500 Body weight 98.79 kg Sandra Austin Other [facility] Other 12-21-2021 16:30-0500 Diastolic blood pressure 60 mm[Hg] Sandra Austin Other [facility] Other 12-21-2021 16:30-0500 Respiratory rate 18 /min Sandra Austin Other [facility] Other 12-21-2021 16:30-0500 SaO2% (BldA) [Mass fraction] 99 % Sandra Austin Other [facility] Other 12-21-2021 16:30-0500 Systolic blood pressure 118 mm[Hg] Sandra Austin Other [employer] Other Encounters Encounter Date Encounter Type Care Provider Facility Start: 08-18-2024 End: 08-18-2024 Bamboo flowsheet Agus Marquita DO Work Phone: [facility] Start: 08-18-2024 End: 08-18-2024 Bamboo flowsheet Agus Marquita DO Work Phone: [facility] Start: 08-18-2024 End: 08-18-2024 flow sheet Agus Marquita DO Work Phone: [facility] Comment on above: 34 weeks gestation o f ; Nausea and vomiting, unspecified vomiting type; Gastroesophageal reflux disease, unspecified whether esophagitis present; Heartburn during in third trimester Start: 08-04-2024 End: 08-04-2024 Bamboo flowsheet Marylou CARBAJAL Work Phone: [facility] Start: 08-04-2024 End: 08-04-2024 Bamboo flowsheet Marylou CARBAJAL Work Phone: [facility] Start: 08-04-2024 End: 08-04-2024 ambulatory MARYLOU PRIEST Not Available Start: 08-04-2024 End: 08-04-2024 flow sheet Marylou CARBAJAL Work Phone: [facility] Comment on above: 32 weeks gestation o f ; Third trimester ; Anxiety, generalized ([facility]) Start: 07-21-2024 End: 07-21-2024 ambulatory AGUS MARQUITA Not Available Start: 07-07-2024 End: 07-07-2024 ambulatory AGUS MARQUITA Not Available Start: 2024 End: 2024 ambulatory AGUS MARQUITA Not Available Start: 05-12-2024 End: 05-12-2024 ambulatory MARYLOU CEM Not Available Start: 04-16-2024 End: 04-16-2024 ambulatory AGUS MARQUITA Not Available Start: 03-17-2024 End: 03-17-2024 ambulatory AGUS MARQUITA Not Available Start: 02-14-2024 End: 02-14-2024 ambulatory MARYLOU CEM Not Available Start: 02-13-2024 End: 02-13-2024 ambulatory [facility] Work Phone: Start: 02-13-2024 End: 02-13-2024 Patient encounter procedure [facility] Physician [facility] Work Phone: Start: 12-16-2023 Non-patient / Non-visit [facility] Physician [facility] Work Phone: Start: 12-16-2023 End: 12-16-2023 ambulatory AGUS JUÁREZ Not Available Start: 10-31-2023 End: 10-31-2023 ambulatory Sandra Geovanna Other [employer] Other Start: 10-31-2023 Office outpatient vi sit 25 minutes Sandra Austin [facility] Start: 07-19-2023 End: 07-19-2023 ambulatory Sandra Geovanna Other [employer] Other Start: 07-19-2023 Telephone encounter Sandra Guevara [facility] [place] Start: 06-24-2023 End: 06-24-2023 ambulatory Sandra Geovanna Other [employer] [facility] Other Start: 06-24-2023 Office outpatient vi sit 25 minutes Sandra Austin [facility] Start: 06-04-2023 End: 06-04-2023 ambulatory Sandra Geovanna Other [employer] [facility] Other Start: 06-04-2023 Telephone encounter Sandra Guevara [facility] Start: 04-15-2023 End: 04-15-2023 ambulatory Ramonita Greenberg Other [employer] Other Start: 04-15-2023 Office outpatient vi sit 15 minutes Ramonita Greenberg [facility] Start: 04-11-2023 End: 04-11-2023 ambulatory Sandra Austin Other [facility] Other Start: 04-11-2023 Telephone encounter Sandra Austin [facility] Start: 02-21-2023 Office outpatient vi sit 25 minutes Sandra Austin [facility] [place] Start: 02-21-2023 End: 02-22-2023 ambulatory SANDRA AUSTIN [employer] Other Start: 01-04-2023 End: 01-04-2023 ambulatory Sandra Austin Other [facility] Other Start: 01-04-2023 Telephone encounter Sandra Guevara [facility] Start: 12-30-2022 Encounter for genera l adult medical examination without abnormal findings SANDRA AUSTIN [facility] Start: 12-27-2022 End: 12-27-2022 ambulatory Sandra Austin Other [employer] Other Start: 12-27-2022 Telephone encounter Sandra Guevara [facility] Start: 12-26-2022 End: 12-27-2022 ambulatory SANDRA AUSTIN Facility:[facility] Start: 12-26-2022 End: 12-27-2022 Encounter for general adult medical examination without abnormal findings SANDRA AUSTIN Facility:[facility] Start: 12-24-2022 End: 12-24-2022 ambulatory Sandra Austin Other [employer] Other Start: 12-24-2022 Encounter for genera l adult medical examination without abnormal findings Sandra Austin [facility] Start: 12-24-2022 Periodic preventive med est patient [...] KAPLE Facility:[facility] Start: 08-17-2022 End: 08-17-2022 ambulatory VIRGINIALINDSEY [...] 12-21-2021 End: 12-21-2021 ambulatory Sandra Kaple Other [employer] [facility] Other Start: 12-21-2021 Office outpatient ne w 45 minutes Sandra Austin [facility] [place] Procedures Date Procedure Procedure Detail Performing Clinician Start: 08-18-2024 Urnls dip stick/tabl et rgnt non-auto w/o micrscp Agus Marquita DO Work Phone: Start: 08-04-2024 Urnls dip stick/tabl et rgnt [...] EST Office Visit [facility] [address] [facility] [id number] Agus Juárez, DO [address] [place] [address] [facility] Start: 09-01-2024 End: 09-01-2024 Patient encounter procedure 09/01/2024 1:30 PM EST Routine [facility] [address] [place] [id number] Agus Juárez, DO [address] [place] [address] [facility] Start: 08-18-2024 End: 08-18-2024 Patient encounter procedure 08/18/2024 1:30 PM EDT Routine [facility] [address] [place] [id number] Agus Juárez, DO [address] [place], [place] [id number] [facility] Start: 08-18-2024 End: 08-18-2024 Professional / ancillary services management 08/18/2024 1:00 PM EDT Ancillary Procedure [facility] [address] [address] [facility] Patient Education Low back pain in adults [facility] Work Phone: Immunizations Immunization Date Immunization Notes Care Provider Fa cility 09-08-2022 diphtheria, tetanus toxoids and pertussis vaccine Marylou CARBAJAL Work Phone: [facility] 09-12-2021 pneumococcal conjuga te vaccine, 13 valent Marylou CARBAJAL Work Phone: [facility] 08-14-1999 diphtheria, tetanus toxoids and acellular pertussis vaccine, unspecified formulation Marylou CARBAJAL Work Phone: [facility] 08-14-1999 haemophilus influenz ae type b vaccine, HbOC conjugate Marylou CARBAJAL Work Phone: [facility] 08-14-1999 measles, mumps and rubella virus vaccine Marylou CARBAJAL Work Phone: [facility] 08-14-1999 trivalent poliovirus vaccine, live, oral Marylou CARBAJAL Work Phone: [facility] 04-27-1998 diphtheria, tetanus toxoids and acellular pertussis vaccine, unspecified formulation Marylou CARBAJAL Work Phone: [facility] 04-27-1998 haemophilus influenz ae type b conjugate and Hepatitis B vaccine Marylou CARBAJAL Work Phone: [facility] 1997 diphtheria, tetanus toxoids and acellular pertussis vaccine, unspecified formulation Marylou CARBAJAL Work Phone: [facility] 1997 haemophilus influenz ae type b vaccine, HbOC conjugate Marylou CARBAJAL Work Phone: [facility] 1997 poliovirus vaccine, inactivated Marylou CARBAJAL Work Phone: [facility] 1997 diphtheria, tetanus toxoids and acellular pertussis vaccine, unspecified formulation Marylou CARBAJAL Work Phone: [facility] 1997 haemophilus influenz ae type b conjugate and Hepatitis B vaccine Marylou CARBAJAL Work Phone: [facility] 1997 poliovirus vaccine, inactivated Marylou CARBAJAL Work Phone: [facility] 1997 hepatitis B vaccine, pediatric or pediatric/adolescent dosage Marylou CARBAJAL Work Phone: [facility] Healthcare Payers Date Payer Category Payer Private Health Insurance [employer] [id number] 2023 Unknown [employer] [id number] 2023-Present [address] [place] [address] [id number]. [id number] 2023 Unknown [id number] 2.16.840.1.594283.19 1997 Unknown [id number] 2.16.840.1.922630.3.579.2. 593 1997 Unknown [id number] 2.16.840.1.425823.3.579.2. 593 1997 Unknown [id number] 2.16.840.1.182385.3.579.2. 593 1997 Unknown [id number] 2.16.840.1.463774.3.579.2. 593 1997 Unknown [id number] 2.16.840.1.572160.3.579.2. 593 1997 Unknown [id number] 2.16.840.1.509430.3.579.2. 593 1997 Unknown [id number] 2.16.840.1.893204.3.579.2. 593 1997 Unknown [id number] 2.16.840.1.163652.3.579.2. 593 1997 Unknown [id number] 2.16.840.1.292294.3.579.2. 593 1997 Unknown [id number] 2.16.840.1.675378.3.579.2. 593 1997 Unknown [id number] 2.16.840.1.131562.3.579.2. 593 1997 Unknown [id number] 2.16.840.1.304636.3.579.2. 593 1997 Unknown [id number] 2.16.840.1.127488.3.579.2. 593 1997 Unknown [id number] 2.16.840.1.782742.3.579.2. 593 1997 Unknown [id number] 2.16.840.1.862438.3.579.2. 593 1997 Unknown [id number] 2.16.840.1.546543.3.579.2. 593 1997 Unknown [id number] 2.16.840.1.738831.3.579.2. 593 1997 Unknown [id number] 2.16.840.1.109453.3.579.2. 593 1997 Unknown [id number] 2.16.840.1.094616.3.579.2. 593 1997 Unknown [id number] 2.16.840.1.888434.3.579.2. 593 1997 Unknown [id number] 2.16.840.1.310635.3.579.2. 593 1997 Unknown [id number] 2.16.840.1.546187.3.579.2. 593 1997 Unknown [id number] 2.16.840.1.474417.3.579.2. 593 1997 Unknown [id number] 2.16.840.1.511576.3.579.2. 1259 1997 Unknown [id number] 2.16.840.1.703718.3.579.2. 9 1997 Unknown [id number] 2.16.840.1.635235.3.579.2. 9 1997 Unknown [id number] 2.16.840.1.671151.3.579.2. 1259 1997 Unknown [id number] 2.16.840.1.664766.3.579.2. 9 1997 Unknown [id number] 2.16.840.1.204459.3.579.2. 9 1997 Unknown [id number] 2.16.840.1.126322.3.579.2. 1258 1997 Unknown [id number] 2.16.840.1.637771.3.579.2. 9 1997 Unknown [id number] 2.16.840.1.115369.3.579.2. 1259 1957 Medicaid [id number] 2.16.840.1.092952.19 1959 Private Health Insurance [id number] 2.16.840.1.977592.19 Self-pay Self Pay [id number] Unknown Sayre [id number] Social History Date Type Detail Facility Start: 08-02-2023 End: 11-25-2023 Sex Assigned At [facility] [employer] Other Start: 1995 Sex Assigned At Female F [facility] Start: 08-02-2023 Tobacco smoking stat us NHIS Never smoked tobacco [facility] Start: 08-02-2023 Tobacco use and exposure Smokeless tobacco non-user [facility] Start: 07-21-2024 End: 08-04-2024 Alcoholic beverage intake Ex-drinker (finding) [facility] Start: 08-02-2023 End: 11-25-2023 History of Social function [facility] Start: 01-03-2024 [facility] Start: 1995 Sex assigned at Not on file [facility] Clinical Notes 12-21-2021 to 08-18-2024 Justine Mathew LPN - 08/18/2024 1:30 PM EDTKeena Broussard LPN - 08/18/2024 1:30 PM SOLOMON Tapia - 08/04/2024 1:20 PM EDT Note Date & Type Note Facility 08-18-2024 History of Presen t illness Narrative Patient voiced that she has been sick for the past 1.5 weeks, patient had mild case of Hand/Foot/Mouth. Patient has had a decrease in appetite & down 5 pounds as well as increase in acid reflux. Patient would like to know if Omeprazole could be increased in dosage. --ss Reason for Appointment: Patient ID: Zelda Zepeda is a 29 y.o. female who presents for Routine Visit (Patient voiced that she has been sick for the past 1.5 weeks, patient had mild case of Hand/Foot/Mouth. Patient has had a decrease in appetite & down 5 pounds as well as increase in acid reflux. Patient would like to know if Omeprazole could be increased in dosage. ) Patient presents today for Return OB appointment. MEDICATIONS Current Outpatient Medications Medication Instructions aspirin 81 mg, Oral, Daily cetirizine (ZYRTEC) 10 mg, Oral, Daily citalopram (CELEXA) 20 mg, Oral, Daily levothyroxine (SYNTHROID, LEVOXYL) 50 mcg, Oral, Daily before breakfast magnesium oxide (MAG-OX) 400 mg, Oral, Nightly Natural Vitamin D-3 5,000 Units, Oral, Daily, as directed omeprazole (PRILOSEC) 20 mg, Oral, Daily before breakfast, Do not crush or chew. Qrcjwyak-Wlv-Cz-FA ( 1 + IRON PO) Oral ALLERGIES No Known Allergies PROBLEMS Active Ambulatory Problems Diagnosis Date Noted Pelvic and perineal pain 07/30/2023 PCOS (polycystic ovarian syndrome) 07/30/2023 Right ear pain 07/30/2023 Pre-diabetes 07/30/2023 Hypothyroid (CMS/HCC) 07/30/2023 34 weeks gestation of 08/18/2024 Gastroesophageal reflux disease 08/18/2024 Nausea and vomiting 08/18/2024 Resolved Ambulatory Problems Diagnosis Date Noted No [...] Exam Constitutional: Appearance: Normal appearance. She is well-developed. Cardiovascular: Rate and Rhythm: Normal rate and regular rhythm. Pulmonary: Effort: Pulmonary effort is normal. Breath sounds: Normal breath sounds. Abdominal: General: Bowel sounds are normal. There is no distension. Palpations: Abdomen is soft. Tenderness: There is no abdominal tenderness. There is no guarding or rebound. Musculoskeletal: General: No swelling. Normal range of motion. Right lower leg: No edema. Left lower leg: No edema. Neurological: Mental Status: She is alert and oriented to person, place, and time. Skin: General: Skin is warm and dry. Psychiatric: Mood and Affect: Mood normal. Behavior: Behavior normal. Vitals and nursing note reviewed. Exam conducted with a storage manager present. Vitals: Estimated body mass index is 43.54 kg/m as calculated from the following: Height as of 08/02/23: 5' 3 . Weight as of this encounter: 245 lb 12.8 oz. BP: 118/74 Patient's last menstrual period was 12/20/2023. ASSESSMENT & PLAN ICD-10-CM 1. 34 weeks gestation of Z3A.34 POCT urinalysis dipstick manually resulted 2. Nausea and vomiting, unspecified vomiting type R11.2 3. Gastroesophageal reflux disease, unspecified whether esophagitis present K21.9 Return OB: Patient presents today for a routine obstetrics appointment. Patient is currently 34w4d . Patient states she is doing well but has complaints of being tired due to current . Patient has verbalizes frequent movement. labor precautions was discussed/given and patient was instructed to perform kick counts three times a day. Increased omeprazole to 40mg daily. Reviewed growth. Orders Placed This Encounter Procedures POCT urinalysis dipstick manually resulted Follow Up: Patient is to return to office in 2 week for routine OB appointment. Documented by Keena Broussard LPN on behalf of: Agus Juárez DO documented in this encounter [facility] 08-04-2024 History of Presen t illness Narrative Reason for Appointment: Patient ID: Zelda Zepeda is a 29 y.o. female who presents [...] before breakfast, Do not crush or chew. Rgpcwkon-Jnx-Cp-FA ( 1 + IRON PO) Oral ALLERGIES [...] Past Surgical History: Procedure Laterality Date COLONOSCOPY 2018 WNL OTHER SURGICAL HISTORY 2005 r/o third [...] of: SOLOMON Turner documented in this encounter [facility] 10-31-2023 Evaluation note Encounter Date Diagnosis Assessment [...] E28.2) She will continue to follow with [facility] and continue healthy lifestyle changes that she [...] course of antibiotic. Increase fluids and rest. Fssr-[id number] antipyretics as needed. Warning signs and symptoms reviewed with patient today. Patient to go immediately to the ER should she experience any of these. Patient to notify office should her symptoms persist and not improve. Patient verbalizes understanding and agrees to treatment plan. [facility] Other 09-22-2023 Evaluation note* Encounter Date Diagnosis Assessment Notes Treatment Notes Treatment Clinical Notes Jun, Vitamin D insufficiency (ICD-10 - E55.9) [facility] Other 08-28-2023 Evaluation note* Encounter Date Diagnosis [...] E28.2) She will continue to follow with [facility] and continue healthy lifestyle changes that she [...] ENT today. Specialty notes reviewed as received. [facility] Other 08-08-2023 Evaluation note* Encounter Date Diagnosis Assessment Notes Treatment Notes Treatment Clinical Notes May, Other atopic dermatitis (ICD-10 - L20.89) May, Acute otitis externa of both ears, unspecified type (ICD-10 - H60.503) [facility] Other 06-19-2023 Evaluation note* Encounter Date Diagnosis [...] no improvement in 2 to 3 days [facility] Other 06-15-2023 Evaluation note* Encounter Date Diagnosis Assessment Notes Treatment Notes Treatment Clinical Notes Mar, Anxiety (ICD-10 - F41.9) [facility] Other 04-27-2023 Evaluation note* Encounter Date Diagnosis [...] plan on rechecking this at May appointment. [facility] Other 03-10-2023 Evaluation note* Encounter Date Diagnosis Assessment Notes Treatment Notes Treatment Clinical Notes Dec, Bacterial conjunctivitis (ICD-10 - H10.9) [facility] Other 03-02-2023 Evaluation note* Encounter Date Diagnosis Assessment Notes Treatment Notes Treatment Clinical Notes Dec, Vitamin D insufficiency (ICD-10 - E55.9) Dec, Elevated alkaline phosphatase level (ICD-10 - R74.8) Dec, Other specified hypothyroidism (ICD-10 - E03.8) [facility] Other 02-27-2023 Evaluation note* Encounter Date Diagnosis [...] ordered. Follow routinely with eye doctor, dentist, [facility]. Patient is advised to work on healthy diet choices and appropriate servings, weight control, regular exercise as directed, reduced fat intake, and salt avoidance. Patient voiced understanding of this and agrees to this plan. Nov, PCOS (polycystic ovarian syndrome) (ICD-10 - E28.2) Routine lab work ordered. She will continue to follow with [facility] and continue healthy lifestyle changes that she [...] homicidal ideations. Started on Celexa by her [facility]. Very stable on Celexa 20 mg daily. [...] her ears still persist after starting this. [facility] Other 02-24-2022 Evaluation note* Encounter Date Diagnosis Assessment Notes Treatment Notes Treatment Clinical Notes Nov, Prediabetes (ICD-10 - R73.03) She was recently dx with prediabetes and was started on Metformin 500 mg BID 2 weeks ago by her OB[facility]. She would like to follow with our [...] - E28.2) She is following with her OB[facility] for her PCOS and is currently on Metformin 500 mg BID and is taking medication to help her get . She will continue to follow with [facility] and continue healthy lifestyle changes that she [...] of fatigue, difficulty losing weight by her [facility]. She would like to start following with [...] of this and agrees to this plan. [facility] Other Evaluation note* Diagnosis Onset Date Resolution Status 8 weeks gestation of acute Low back pain [facility] Work Phone: Evaluation note* Diagnosis 32 weeks gestation of Third trimester state, incidental Anxiety, generalized (CMS/HCC) [facility] Diagnosis 34 weeks gestation of Nausea and vomiting, unspecified vomiting type Gastroesophageal reflux disease, unspecified whether esophagitis present Heartburn during in third trimester [facility] - Reported* Type Description Date Medical History PCOS Medical History THYROID ISSUES Surgical History THIRD NIPPLE REMOVED Surgical History Colonoscopy-normal 2018 [facility] Other Summary Purpose Family History Relationship Condition [...] Right ear pain (H92. 01) Referral Organization [facility] Gonzales Hernandez Referring Provider First Name Sandra Referring Provider Last Name Geovanna Referring Provider Specialty Nurse Pract roselineionelupis Referred Provider Specialty Ear, Nose an d Throat Referral Priority Routine Chief Complaint and Reason for Visit Chief Complaint lower back pain Reason for Visit 8 weeks gestation of Low back pain Additional Source Comments REASON FOR VISIT (unrecogniz ed section and content) Reason Comments Routine Visit Reason Comments Routine Visit Patient voiced th at she has been sick for the past 1.5 weeks, patient had mild case of Hand/Foot/Mouth. Patient has had a decrease in appetite & down 5 pounds as well as increase in acid reflux. Patient would like to know if Omeprazole could be increased in dosage. INFORMATION SOURCE (unrecogn ized section and content) DATE CREATED AUTHOR 02/25/2023 [facility] DATE CREATED AUTHOR AUTHOR'S ESMER FLORES 08/06/2024 [facility] EPIC Care Teams (unrecognized sec [...] February 13, 2024 End: February 13, 2024 Gold Stamper Relationship Specialty Start Date End Date Sandra Austin NP [address] [facility] [place] [address] PCP - General 07/19/23 Gold Stamper Relationship Specialty Start Date End Date Sandra Austin NP [address] [facility] [place] [address] PCP - General 07/19/23 Gold Stamper Relationship Specialty Start Date End Date Sandra Austin NP [address] [facility] [place] [address] PCP - General 07/19/23 Gold Stamper Relationship Specialty Start Date End Date Sandra Austin NP [address] [place] [address] PCP - General 07/19/23 Goals (unrecognized section [...] BE BASED ON THE PRIMARY CLINICAL RECORDS. [facility]. provides no warranty or guarantee of the accuracy or completeness of information in this document.
[2024-08-22 07:40] VITALS: BP 118/70; PULSE 57; TEMP 30.7; TEMP 35.4; TEMP 36
[2024-08-22 07:45] VITALS: TEMP 36.6
== END 2024-08-22 08:10 | disposition home or self-care (01) ==
LOC: FBCO 06:47 → FBC 07:30
PROVIDERS: PCP Nurse Practitioner Family; Visit Provider Obstetrics & Gynecology
DX: O99.283 Endocrine, nutritional and metabolic diseases complicating pregnancy, third trimester (principal); Z3A.35 35 weeks gestation of pregnancy
CPT/HCPCS: 59025

== ENCOUNTER 2024-08-26 07:18 | Outpatient (OUT) | payer OTHER, SELFPAY ==
--- NOTE | 2024-08-26 | US_ITS ---
[place] [id number] Patient Name: SOFIA ZEPEDA MRN: [id number] date: 1995 Sex: F Assigned Patient Location: US Current Patient Location: Accession/Order Number: [id number] Exam Date: 08/26/2024 15:05 Report Date: 08/27/2024 04:27 At the request of: AGUS SANTO Procedure: US OB BPP w non-stress EXAMINATION: US OB BPP w non-stress HISTORY:Abnormal TSH R79.89 COMPARISON: Ultrasound OB biophysical 08/19/2024 TECHNIQUE: Ultrasound biophysical profile was performed in the radiology department. BREATHING MOVEMENTS: 2 GROSS BODY MOVEMENTS: 2 TONE: 2 QUALITATIVE AMNIOTIC FLUID VOLUME: 2 PRESENTATION: CEPHALIC HEART RATE: 150 bpm AMNIOTIC FLUID VOLUME: 17.88 cm GESTATIONAL AGE: 35 weeks 5 days US/US OB BPP w non-stress IMPRESSION: Total biophysical profile score: 8 Electronically authenticated by: RAGINI SANTOS Date: 08/27/2024 04:27
--- OUTSIDE RECORDS SUMMARY | 2024-08-26 07:21 | XMS_ITS | CCD ---
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 Role Phone [facility] Unavailable KAP, SANDRA Primary Care Unavailable MARQUITA ., DR GOLDSMITH Attending Unavailable WEST, DR MANUELITO Foley Consulting Unavailable MARQUITA ., DR GOLDSMITH Admitting Unavailable MARQUITA ., DR GOLDSMITH Consulting Unavailable BRIAN, VIRGINIA Admitting Unavailable VIRGINIA TORRES Attending Unavailable KAP, SANDRA Primary Care Unavailable [place], DR MANUELITO Foley Consulting Unavailable MARQUITA ., [...] DR GOLDSMITH Admitting Unavailable MARQUITA ., DR GODLSMITH Attending Unavailable KAPLE, SANDRA Primary Care Unavailable MARQUITA ., DR GOLDSMITH Admitting Unavailable WEST, DR MANUELITO Foley Consulting Unavailable MARQUITA ., DR GOLDSMITH Consulting Unavailable KAPLE, SANDRA Primary Care Unavailable AMRQUITA ., DR GOLDSMITH Consulting Unavailable MARQUITA ., [...] Unavailable MARQUITA ., DR GOLDSMITH Attending Unavailable [place], DR MANUELITO Foley Consulting Unavailable MARQUITA ., [...] Unavailable MARQUITA ., DR GOLDSMITH Attending Unavailable [place], DR MANUELITO Foley Consulting Unavailable MARQUITA ., DR GOLDSMITH Admitting Unavailable MARQIUTA ., DR GOLDSMITH Consulting Unavailable KAPLE, SANDRA [...] ., DR HU Consulting Unavailabl e [place], DR MANUELITO Foley Consulting Unavailable MARQUITA ., DR GOLDSMITH Consulting Unavailable SANDRA AUSTIN Primary Care Unavailable MARQUITA ., DR GOLDSMITH Attending Unavailable [place], DR MANUELITO Foley Consulting Unavailable MARQUITA ., DR GOLDSMITH Admitting Unavailable MARQUITA ., DR GOLDSMITH Consulting Unavailable Yari Ramonita Unavailable MARYLOU PRIEST Attending Unavailable MARQUITA, AGUS Attending Unavailable MARQUITA, AGUS Attending Unavailable MARQUITA, AGUS Attending Unavailable MARYLOU PRIEST Attending Unavailable MARQUITA, AGUS Attending Unavailable MARQUITA, AGUS Attending Unavailable MARQUITA, AGUS Attending Unavailable Geovanna ENTRY LEVEL WEB DEVELOPER, Sandra Hall Primary Care Provider Medications Current [...] hours February 13, 2024 12:00am polymyxin b 35137 unt/ml / trimethoprim 1 mg/ml ophthalmic solution (3 sources) Dihydrofolate Reductase Inhibitor Antibacterial, Polymyxin-class Antibacterial Start: 01-04-2023 Polymyxin B-Trimethoprim 62046-8.1 UNIT/ML 1 drop into affected eye Ophthalmic every 3 hours up to six times daily for 7 days Dec, Active (10 sources) Active Iaqfjcmj-Izo-Ck-FA ( 1 + IRON PO) (6 sources) Etrvzaak-Nyv-Jd-F A ( 1 + IRON PO) Take [...] acid 7540 MG / polyethylene glycol 3350 92265 MG / potassium chloride 1200 MG / sodium ascorbate 70165 MG / sodium chloride 3200 MG Powder for Oral Solution) / 1 (polyethylene glycol 3350 952344 MG / potassium chloride 1000 MG / [...] UA Negative Negative - 4(70) +++ mg/dL [facility] Blood, UA Negative Negative - 50 Jose Manuel/mcL [facility] Clarity, UA Clear [facility] re Color, UA Yellow [facility] e Glucose, UA Negative Negative - 1999(110) ++++ mg/dL [facility] Interpretation and review of laboratory results Normal [facility] Ketones, UA Negative Negative - 160(16) ++++ mg/dL [facility] Leukocytes, UA Negative Negative - 500+++ Alexys/mcL [facility] Nitrite, UA Negative Negative - Positive [facility] pH, UA 6.5 5 - 9 [facility] Protein, UA Negative Negative - 1999(20) ++++ mg/dL [facility] Spec Grav, UA 1.01 1 - 1.03 [facility] care Urobilinogen, UA 0.2 0.2 - 12 mg/dL [facility] e Urinalysis macro (dipstick) panel (U)on 08-04-2024 Bilirubin, UA Negative Negative - 4(70) +++ mg/dL [facility] Blood, UA Negative Negative - 50 Jose Manuel/mcL [facility] Clarity, UA Clear [facility] re Color, UA Yellow [facility] e Glucose, UA Negative Negative - 1999(110) ++++ mg/dL [facility] Interpretation and review of laboratory results Abnormal [facility] Ketones, UA Negative Negative - 160(16) ++++ mg/dL [facility] Leukocytes, UA Trace Negative - 500+++ Alexys/mcL [facility] Nitrite, UA Negative Negative - Positive [facility] pH, UA 7.0 5 - 9 [facility] e Protein, UA Negative Negative - 1999(20) ++++ mg/dL [facility] Spec Grav, UA 1.015 1 - 1.03 [facility] Urobilinogen, UA 0.2 0.2 - 12 mg/dL [facility] Human papilloma virus 16+18+ 31+33+35+39+45+51+52+56+58+59+66+68 DNA [Presence] in Anders 12-16-2023 HPV 16+18+31+33+35+39+45 +51+52+56+58+59+66+6 8 DNA Probe+sig amp Ql (Cvx) Note . [facility] Comment on above: TESTS RESULT FLAG UN ITS REF RANGE LAB DI AGNOSIS: 02 NEGATIVE FOR INTRAEPITHELIAL LESION OR MALIGNANCY.Specimen adequacy: 02 Satisfactory for evaluation. Endocervical and/or squamous metaplastic cells (endocervical component) are present.Performed by: 02 Raeann Duran, Destination Imagination Coordinator ([facility]). 02Note: Note 02 The Pap smear is a screening test designed to aid in the detection of premalignant and malignant conditions of the uterine cervix. It is not a diagnostic procedure and should not be used as the sole means of detecting cervical cancer. Both false-positive and false-negative reports do occur.Test Methodology: Note 02 The [employer] was unable to read this specimen. Therefore a manual review was performed. ----- FLAG LEGEND: L-Low Normal,H-High Normal,LL-Alert Low,HH-Alert High <-Panic Low,>-Panic High,A-Abnormal,AA-Critical Abnormal ---Performed at:[address] [id number] Heavenly Serrano MD, . 02 The HPV DNA reflex criteria were not met with this specimen result therefore, no HPV testing was performed.The HPV DNA reflex criteria were not met with this specimenresult therefore, no HPV testing was performed.Performed at: =[address] [id number] Director: Heavenly Serrano MD, Phone: [phone] at: [facility] [id number] Director: Heavenly Serrano MD, Phone: [phone] No Panel Informationon 12-16 Reference Lab Test Patient Age Note . [facility] Comment on above: TESTS RESULT FLAG UN ITS REF RANGE LAB Clinician Provided Cytology Information Source.............Cervix No. of containers..01 ThinPrep VialAge Algo ACOG Leslye... FLAG LEGEND: L-Low Normal,H-High Normal,LL-Alert Low,HH-Alert High <-Panic Low,>-Panic High,A-Abnormal,AA-Critical Abnormal ---Performed at:01 [address] [facility] [id number] Heavenly Serrano MD, A1C HEMOGLOBINon 10-31-2023 HbA1c (Bld) [Mass fraction] 5.8 % [employer] Other HbA1c (Bld) [Mass fraction]o n 10-31-2023 A1C HEMOGLOBIN [employer] Other A1C HEMOGLOBINon 06-24-2023 HbA1c (Bld) [Mass fraction] 5.2 % [employer] Other HbA1c (Bld) [Mass fraction]o n 06-24-2023 A1C HEMOGLOBIN [employer] Other Quick Strepon 04-15-2023 S. pyogenes Org specific cx Ql (Throat) Positive [employer] Other Quick Strep [employer] Other FREE T4on 02-21-2023 Free T4 [Mass/Vol] 0.89 ng/dL Normal 0.76-1.46 [facility] Comment on above: Performed By: #### H H #### [facility] [address] [place] [address] Dr. Bella Jerome PROF 14(COMP METB)on 023 Albumin [Mass/Vol] 3.7 g/dL Normal 3.4-5.0 [facility] Comment on above: Performed By: #### H H #### [facility] [address] [place] [address] Dr. Bella Jerome Albumin/Globulin [Mass ratio] 0.9 {ratio} Normal [facility] Comment on above: Performed By: #### H H #### [facility] [address] [place] [address] Dr. Bella Jerome ALP [Catalytic activity/Vol] 132 U/L Critically high 46-116 [facility] Comment on above: Performed By: #### H H #### [facility] [address] [place] [address] Dr. Bella Jerome ALT [Catalytic activity/Vol] 32 U/L Normal 14-59 [facility] Comment on above: Performed By: #### H H #### [facility] [address] [place] [address] Dr. Bella Jerome Anion gap [Moles/Vol] 12.8 mmol/L Normal [facility] Comment on above: Performed By: #### H H #### [facility] [address] [place] [address] Dr. Bella Jerome AST [Catalytic activity/Vol] 23 U/L Normal 15-37 [facility] Comment on above: Performed By: #### H H #### [facility] [address] [place] [address] Dr. Bella Jerome Bilirubin [Mass/Vol] 0.6 mg/dL Normal 0.2-1.0 [facility] Comment on above: Performed By: #### H H #### [facility] [address] [place] [address] Dr. Bella Jerome Calcium [Mass/Vol] 9.0 mg/dL Normal 8.5-10.1 [facility] Comment on above: Performed By: #### H H #### [facility] [address] [place] [address] Dr. Bella Jerome Chloride [Moles/Vol] 102 mmol/L Normal 98-107 [facility] Comment on above: Performed By: #### H H #### [facility] [address] [place] [address] Dr. Bella Jerome CO2 [Moles/Vol] 28.2 mmol/L Normal 21.0-32.0 [facility] Comment on above: Performed By: #### H H #### [facility] [address] [address] [address] Bella Jerome Creatinine [Mass/Vol] 0.67 mg/dL Normal 0.55-1.02 [facility] Comment on above: Performed By: #### H H #### [facility] [address] [address] [address] Bella Jerome EGFR-AF TONGAN >60 Normal >=60 [facility] Comment on above: Performed By: #### H H #### [facility] [address] [place] [address] Dr. Bella Jerome EGFR-NON AF TONGAN >60 Normal >=60 [facility] Comment on above: Performed By: #### H H #### [facility] [address] [place] [address] Dr. Bella Jerome Globulin (S) [Mass/Vol] 4.2 g/dL Normal [facility] Comment on above: Performed By: #### H H #### [facility] [address] [place] [address] Dr. Bella Jerome Glucose [Mass/Vol] 88 mg/dL Normal 74-106 [facility] Comment on above: Performed By: #### H H #### [facility] [address] [place] [address] Dr. Bella Jerome Potassium [Moles/Vol] 4.0 mmol/L Normal 3.5-5.1 [facility] Comment on above: Performed By: #### H H #### [facility] [address] [place] [address] Dr. Bella Jerome Protein [Mass/Vol] 7.9 g/dL Normal 6.4-8.2 [facility] Comment on above: Performed By: #### H H #### [facility] [address] [place] [address] Dr. Bella Jerome Sodium [Moles/Vol] 139 mmol/L Normal 136-145 [facility] Comment on above: Performed By: #### H H #### [facility] [address] [place] [address] Dr. Bella Jerome Urea nitrogen [Mass/Vol] 12.0 mg/dL Normal 7.0-18.0 [facility] Comment on above: Performed By: #### H H #### [facility] [address] [place] [address] Dr. Bella Jerome Urea nitrogen/Creatinine [Mass ratio] 17.9 mg/mg Normal [facility] Comment on above: Performed By: #### H H #### [facility] [address] [place] [address] Dr. Bella Jerome TSHon 02-21-2023 TSH 2.463 uIU/mL Normal 0.358-3.740 [facility] Comment on above: Performed By: #### H H #### [facility] [address] [place] [address] Dr. Bella Jerome VITAMIN D 25 OHon 02-21-2023 VIT D 25-OH 23.1 ng/mL Normal [facility] Comment on above: Performed By: #### H H #### [facility] [address] [place] [address] Dr. Bella Jerome VIT D RANGES SEE BELOW Normal [facility] Comment on above: Result Comment: <20 ng/mL Vit D deficient 20 - <30 ng/mL Vit D insufficient 30 - 100 ng/mL Vit D sufficient >100 ng/mL Potential Toxicity Performed By: #### H H #### [facility] [address] [place] [address] Dr. Bella Jerome CBC AUTO DIFFon 12-26-2022 BASO # 0.0 103/ul Normal 0.0-0.1 [facility] Comment on above: Performed By: #### C BC #### [facility] [address] [place] [address] Dr. Bella Jerome Basophils/100 WBC (Bld) 0.3 % Normal 0.2-2.0 [facility] Comment on above: Performed By: #### C BC #### [facility] [address] [place] [address] Dr. Bella Jerome EO # 0.1 103/ul Normal 0.0-0.7 [facility] Comment on above: Performed By: #### C BC #### [facility] [address] [place] [address] Dr. Bella Jerome Eosinophils/100 WBC (Bld) 1.6 % Normal 0.9-7.0 [facility] Comment on above: Performed By: #### C BC #### [facility] [address] [place] [address] Dr. Bella Jerome Erythrocyte distribution width (RBC) [Ratio] 12.7 % Normal 11.0-15.0 [facility] Comment on above: Performed By: #### C BC #### [facility] [address] [place] [address] Dr. Bella Jerome Hematocrit (Bld) [Volume fraction] 37.2 % Normal 36.0-48.0 [facility] Comment on above: Performed By: #### C BC #### [facility] [address] [place] [address] Dr. Bella Jerome Hemoglobin (Bld) [Mass/Vol] 12.5 g/dL Normal 12.0-16.0 [facility] Comment on above: Performed By: #### C BC #### [facility] [address] [place] [address] Dr. Bella Jerome IG # 0.02 10e3/ul Normal 0.00-0.03 [facility] Comment on above: Performed By: #### C BC #### [facility] [address] [place] [address] Dr. Bella Jerome IG % 0.3 % Normal 0.0-0.5 [facility] Comment on above: Performed By: #### C BC #### [facility] [address] [place] [address] Dr. Bella Jerome LYMPH # 2.3 103/ul Normal 1.2-3.8 [facility] Comment on above: Performed By: #### C BC #### [facility] [address] [place] [address] Dr. Bella Jerome Lymphocytes/100 WBC (Bld) 34.1 % Normal 20.5-60.0 [facility] Comment on above: Performed By: #### C BC #### [facility] [address] [place] [address] Dr. Bella Jerome MANUAL DIFF REQ NO Normal [facility] Comment on above: Performed By: #### C BC #### [facility] [address] [place] [address] Dr. Bella Jerome MCH (RBC) [Entitic mass] 30.9 pg Normal 26.7-34.0 [facility] Comment on above: Performed By: #### C BC #### [facility] [address] [place] [address] Dr. Bella Jerome MCHC (RBC) [Mass/Vol] 33.6 g/dL Normal 29.9-35.2 [facility] Comment on above: Performed By: #### C BC #### [facility] [address] [place] [address] Dr. Bella Jerome MCV (RBC) [Entitic vol] 91.9 fL Normal 81.0-99.0 [facility] Comment on above: Performed By: #### C BC #### [facility] [address] [place] [address] Dr. Bella Jerome MONO # 0.4 103/ul Normal 0.3-0.8 [facility] Comment on above: Performed By: #### C BC #### [facility] [address] [place] [address] Dr. Bella Jerome Monocytes/100 WBC (Bld) 5.1 % Normal 1.7-12.0 [facility] Comment on above: Performed By: #### C BC #### [facility] [address] [place] [address] Dr. Bella Jerome NEUT # 4.0 103/ul Normal 1.4-6.5 [facility] Comment on above: Performed By: #### C BC #### [facility] [address] [place] [address] Dr. Bella Jerome Neutrophils/100 WBC (Bld) 58.6 % Normal 43.0-75.0 [facility] Comment on above: Performed By: #### C BC #### [facility] [address] [address] [address] Bella Jerome Platelet mean volume (Bld) [Entitic vol] 11.5 fL Normal 9.5-13.5 [facility] Comment on above: Performed By: #### C BC #### [facility] [address] [address] [address] Bella Jerome PLT 243 103/ul Normal 150-450 [facility] Comment on above: Performed By: #### C BC #### [facility] [address] [address] [address] Bella Jerome RBC 4.05 106/ul Critically low 4.20-5.40 [facility] Comment on above: Performed By: #### C BC #### [facility] [address] [address] [address] Bella Jerome WBC 6.8 103/ul Normal 4.0-11.0 [facility] Comment on above: Performed By: #### C BC #### [facility] [address] [address] [address] Bella Jerome FREE T4on 12-26-2022 Free T4 [Mass/Vol] 1.05 ng/dL Normal 0.76-1.46 [facility] Comment on above: Performed By: #### F T4, VITAD, B12FOL, IRON ####[facility] [id number] [place], [place] [id number]. Bella Jerome GLYCOHEMOGLOBIN A1Con 2022 ADA RECOMMENDATION SEE BELOW Normal [facility] Comment on above: Result Comment: ADA RECOMMENDED LIMIT 4.0 - 6.0 ADA THERAPEUTIC TARGET < 7.0 ACTION SUGGESTED > 7.0 Performed By: #### A 1C #### [facility] [address] [id number] [address] Bella Jerome Glucose [Mass/Vol] 103 mg/dL Normal [facility] Comment on above: Performed By: #### A 1C #### [facility] [address] [address] [address] Bella Jerome HbA1c (Bld) [Mass fraction] 5.2 % Normal 4.5-6.2 [facility] Comment on above: Performed By: #### A 1C #### [facility] [address] [address] [address] Bella Jerome IRONon 12-26-2022 Iron [Mass/Vol] 74.0 ug/dL Normal 50.0-170.0 [facility] Comment on above: Performed By: #### F T4, VITAD, B12FOL, IRON ####[facility] [id number] [address]Dr[address] Bella Jerome LIPID PROFILEon 12-26-2022 CHOL-HDL RATIO NORM SEE BELOW Normal [facility] Comment on above: Result Comment: 3.3 - 4.4 LOW RISK 4.4 - 7.1 AVERAGE RISK 7.1 - 11.0 MODERATE RISK >11.0 HIGH RISK Performed By: #### C MP, TSH, LIPID #### [facility] [address] [address] [address] Bella Jerome Cholesterol [Mass/Vol] 153 mg/dL Normal <=200 [facility] Comment on above: Performed By: #### C MP, TSH, LIPID #### [facility] [address] [address] [address] Bella Jerome Cholesterol in HDL [Mass/Vol] 67 mg/dL Critically high 40-60 [facility] Comment on above: Performed By: #### C MP, TSH, LIPID #### [facility] [address] [address] [address] Bella Jerome Cholesterol in LDL [Mass/Vol] 77.2 mg/dL Normal [facility] Comment on above: Performed By: #### C MP, TSH, LIPID #### [facility] [address] [address] [address] Bella Jerome Cholesterol.total/Ch olesterol in HDL [Mass ratio] 2.3 {ratio} Normal [facility] Comment on above: Performed By: #### C MP, TSH, LIPID #### [facility] [address] [address] [address] Bella Jerome HDL NORMAL > or = 60 mg/dl - LOW CARDIOVASCULAR RISK <40 mg/dl - HIGH CARDIOVASCULAR RISK Normal [facility] Comment on above: Performed By: #### C MP, TSH, LIPID #### [facility] [address] [address] [address] Bella Jerome LDL CALC NORMAL SEE BELOW Normal [facility] Comment on above: Result Comment: <100 mg/dl OPTIMAL 100 - 129 mg/dl NEAR OR ABOVE OPTIMAL 130 - 159 mg/dl BORDERLINE HIGH 160 - 189 mg/dl HIGH >190 mg/dl VERY HIGH Performed By: #### C MP, TSH, LIPID #### [facility] [address] [address] [address] Bella Jerome Triglyceride [Mass/Vol] 44 mg/dL Normal <=150 [facility] Comment on above: Performed By: #### C MP, TSH, LIPID #### [facility] [address] [address] [address] Bella Jerome VLDL CALC 8.8 mg/dL Normal [facility] Comment on above: Performed By: #### C MP, TSH, LIPID #### [facility] [address] [address] [address] Bella Jerome MICROALB CREAT RATIO RANDOMo n 12-26-2022 mALB 2.3 mg/L Normal <=30.0 [facility] Comment on above: Performed By: #### H H #### [facility] [address] [address] [address] Bella Jerome MALB CR RATIO 17.4 mg/g Normal 0.0-29.9 [facility] Comment on above: Performed By: #### H H #### [facility] [address] [address] [address] Bella Jerome MALB CR RATIO RANGE SEE BELOW Normal [facility] Comment on above: Result Comment: NO M ICROALBUMINURIA 0-29 MG/G CLINICAL MICROALBUMINURIA 30-300 MG/G MACROALBUMINURIA >300 MG/G Performed By: #### H H #### [facility] Laboratory [address] [address] [address] Bella Jerome URINE CREAT 131.90 mg/dL Normal 20.00-300.00 [facility] Comment on above: Performed By: #### H H #### [facility] Laboratory [address] [address] [address] Bella Jerome PROF 14(COMP METB)on 023 Albumin [Mass/Vol] 4.1 g/dL Normal 3.4-5.0 [facility] Comment on above: Performed By: #### C MP, TSH, LIPID #### [facility] Laboratory [address] [address] [address] Bella Jerome Albumin/Globulin [Mass ratio] 1.3 {ratio} Normal [facility] Comment on above: Performed By: #### C MP, TSH, LIPID #### [facility] Laboratory [address] [address] [address] Bella Jerome ALP [Catalytic activity/Vol] 124 U/L Critically high 46-116 [facility] Comment on above: Performed By: #### C MP, TSH, LIPID #### [facility] Laboratory [address] [address] [address] Bella Jerome ALT [Catalytic activity/Vol] 16 U/L Normal 14-59 [facility] Comment on above: Performed By: #### C MP, TSH, LIPID #### [facility] Laboratory [address] [address] [address] Bella Jerome Anion gap [Moles/Vol] 13.4 mmol/L Normal [facility] Comment on above: Performed By: #### C MP, TSH, LIPID #### [facility] Laboratory [address] [address] [address] Bella Jerome AST [Catalytic activity/Vol] 17 U/L Normal 15-37 [facility] Comment on above: Performed By: #### C MP, TSH, LIPID #### [facility] Laboratory [address] [address] [address] Bella Jerome Bilirubin [Mass/Vol] 0.8 mg/dL Normal 0.2-1.0 [facility] Comment on above: Performed By: #### C MP, TSH, LIPID #### [facility] Laboratory [address] [address] [address] Bella Jerome Calcium [Mass/Vol] 8.9 mg/dL Normal 8.5-10.1 [facility] Comment on above: Performed By: #### C MP, TSH, LIPID #### [facility] Laboratory [address] [place] [address] Dr. Bella Jerome Chloride [Moles/Vol] 103 mmol/L Normal 98-107 [facility] Comment on above: Performed By: #### C MP, TSH, LIPID #### [facility] Laboratory [address] [place] [address] Dr. Bella Jerome CO2 [Moles/Vol] 25.6 mmol/L Normal 21.0-32.0 [facility] Comment on above: Performed By: #### C MP, TSH, LIPID #### [facility] Laboratory [address] [place] [address] Dr. Bella Jerome Creatinine [Mass/Vol] 0.55 mg/dL Normal 0.55-1.02 [facility] Comment on above: Performed By: #### C MP, TSH, LIPID #### [facility] Laboratory [address] [place] [address] Dr. Bella Jerome EGFR-AF TONGAN >60 Normal >=60 [facility] Comment on above: Performed By: #### C MP, TSH, LIPID #### [facility] Laboratory [address] [place] [address] Dr. Bella Jerome EGFR-NON AF TONGAN >60 Normal >=60 [facility] Comment on above: Performed By: #### C MP, TSH, LIPID #### [facility] Laboratory [address] [place] [address] Dr. Bella Jerome Globulin (S) [Mass/Vol] 3.1 g/dL Normal [facility] Comment on above: Performed By: #### C MP, TSH, LIPID #### [facility] Laboratory [address] [place] [address] Dr. Bella Jerome Glucose [Mass/Vol] 82 mg/dL Normal 74-106 [facility] Comment on above: Performed By: #### C MP, TSH, LIPID #### [facility] Laboratory [address] [place] [address] Dr. Bella Jerome Potassium [Moles/Vol] 4.0 mmol/L Normal 3.5-5.1 [facility] Comment on above: Performed By: #### C MP, TSH, LIPID #### [facility] Laboratory [address] [place] [address] Dr. Bella Jerome Protein [Mass/Vol] 7.2 g/dL Normal 6.4-8.2 [facility] Comment on above: Performed By: #### C MP, TSH, LIPID #### [facility] Laboratory [address] [place] [address] Dr. Bella Jerome Sodium [Moles/Vol] 138 mmol/L Normal 136-145 [facility] Comment on above: Performed By: #### C MP, TSH, LIPID #### [facility] Laboratory [address] [place] [address] Dr. Bella Jerome Urea nitrogen [Mass/Vol] 14.0 mg/dL Normal 7.0-18.0 [facility] Comment on above: Performed By: #### C MP, TSH, LIPID #### [facility] Laboratory [address] [place] [address] Dr. Bella Jerome Urea nitrogen/Creatinine [Mass ratio] 25.5 mg/mg Normal [facility] Comment on above: Performed By: #### C MP, TSH, LIPID #### [facility] Laboratory [address] [place] [address] Dr. Bella Jerome TSHon 12-26-2022 TSH 0.224 uIU/mL Critically low 0.358-3.740 [facility] Comment on above: Performed By: #### C MP, TSH, LIPID #### [facility] Laboratory [address] [place] [address] Dr. Bella Jerome VIT B12 AND FOLATEon 023 Cobalamin (Vitamin B12) [Mass/Vol] 702.0 pg/mL Normal 193.0-986.0 [facility] Comment on above: Performed By: #### F T4, VITAD, B12FOL, IRON ####[facility] [address] [address]Dr. Bella Jerome FOLATE 25.10 ng/mL Normal 8.60-58.90 [facility] Comment on above: Performed By: #### F T4, VITAD, B12FOL, IRON ####[facility] [address] [address]Dr. Bella Jerome VITAMIN D 25 OHon 12-26-2022 VIT D 25-OH 25.4 ng/mL Normal [facility] Comment on above: Performed By: #### F T4, VITAD, B12FOL, IRON ####[facility] [address] [address]DrWill Jerome VIT D RANGES SEE BELOW [facility] Comment on above: Result Comment: <20 ng/mL Vit D deficient 20 - <30 ng/mL Vit D insufficient 30 - 100 ng/mL Vit D sufficient >100 ng/mL Potential Toxicity Performed By: #### F T4, VITAD, B12FOL, IRON ####[facility] [address] [address]Dr. Bella Jerome PAP ACOG PANEL 2: 21 to 31on 12-18-2022 . . Normal [facility] Comment on above: Performed By: #### C BC #### [facility] Laboratory [address] [address] [address] Bella Jerome Age Gdln ACOG Testing - Normal [facility] Comment on above: Performed By: #### C BC #### [facility] Laboratory [address] [address] [address] Bella Jerome DIAGNOSIS: Comment Normal [facility] Comment on above: Result Comment: NEGA TIVE FOR INTRAEPITHELIAL LESION OR MALIGNANCY. Performed By: #### C BC #### [facility] Laboratory [address] [address] [address] Bella Jerome Methodology: Comment Normal [facility] Comment on above: Result Comment: This liquid based ThinPrep(R) pap test was screened with the use of an image guided system. Performed By: #### C BC #### [facility] Laboratory [address] [address] [address] Bella Jerome Note: Comment Normal [facility] Comment on above: Result Comment: The Pap smear is a screening test designed to aid in the detection of premalignant and malignant conditions of the uterine cervix. It is not a diagnostic procedure and should not be used as the sole means of detecting cervical cancer. Both false-positive and false-negative reports do occur. . Performed By: #### C BC #### [facility] Laboratory [address] [address] [address] Bella Jerome Performed by: Comment Normal [facility] Comment on above: Result Comment: Byron Irby, Destination Imagination Coordinator (ASCP) Performed By: #### C BC #### [facility] Laboratory [address] [place] [address] Dr. Bella Jerome Reflex Criteria: Comment Normal [facility] Comment on above: Result Comment: The HPV DNA reflex criteria were not met with this specimen result therefore, no HPV testing was performed. . Performed By: #### C BC #### [facility] Laboratory [address] [place] [address] Dr. Bella Jerome Specimen adequacy: Comment Normal [facility] Comment on above: Result Comment: Sati sfactory for evaluation. Endocervical and/or squamous metaplastic cells (endocervical component) are present. Performed By: #### C BC #### [facility] Laboratory [address] [place] [address] Dr. Bella Jerome CBC W MANUAL DIFFon 09-07-20 22 ATYPICAL LYMPH # Normal [facility] Comment on above: Performed By: #### C BCMAN ####[facility] [address] [address]Dr. Bella Jerome ATYPICAL LYMPH % Normal [facility] Comment on above: Performed By: #### C BCMAN ####[facility] [address] [address]Dr. Bella Jerome BAND # 0.2 103/ul Normal 0.0-0.3 [facility] Comment on above: Performed By: #### C BCMAN ####[facility] [address] [id number] Bella Jerome BAND % 1 % Normal 0-5 [facility] Comment on above: Performed By: #### C PEDRO ####[facility] [address] [id number]. Bella Jerome BASOM # 0.00 103/ul Normal 0.00-0.10 [facility] Comment on above: Performed By: #### C BCRELL ####[facility] [address] [address]Dr. Bella Jerome BASOM % 0.0 % Critically low 0.2-2.0 [facility] Comment on above: Performed By: #### C PEDRO ####[facility] [address] [address]Dr. Bella Jerome BLAST # Normal [facility] Comment on above: Performed By: #### C PEDRO ####[facility] [address] [address]Dr. Bella Jerome BLAST % Normal [facility] Comment on above: Performed By: #### C PEDRO ####[facility] [address] [place], [place] [address]Dr. Bella Jerome CORRECTED WBC Normal 4.0-11.0 [facility] Comment on above: Performed By: #### C PEDRO ####[facility] [address] [address]Dr. Bella Jerome EOS # 0.00 103/ul Normal 0.00-0.70 [facility] Comment on above: Performed By: #### C PEDRO ####[facility] [address] [address]Dr. Bella Jerome EOS% 0.0 % Critically low 0.9-7.0 [facility] Comment on above: Performed By: #### C PEDRO ####[facility] [address] [place], [place] [address]Dr. Bella Jerome HCT 30.5 % Critically low 36.0-48.0 [facility] Comment on above: Performed By: #### C PEDRO ####[facility] [address] [place], [place] [address]Ec. Bella Jerome HGB 10.5 g/dl Critically low 12.0-16.0 [facility] Comment on above: Performed By: #### C PEDRO ####[facility] [address] [place], [place] [address]Mc. Bella Jerome LYMPHM # 2.78 103/ul Normal 1.20-3.80 [facility] Comment on above: Performed By: #### C PEDRO ####[facility] [address] [place], [place] [address]Je. Bella Jerome LYMPHM% 13.0 % Critically low 20.5-60.0 [facility] Comment on above: Performed By: #### C PEDRO ####[facility] [address] [place], [place] [address]Pp. Bella Jerome MCH 32.8 pg Normal 26.7-34.0 [facility] Comment on above: Performed By: #### C PEDRO ####[facility] [address] [place], [place] [address]Pz. Bella Jerome MCHC 34.4 g/dl Normal 29.9-35.2 [facility] Comment on above: Performed By: #### Jennifer VASQUEZ ####[facility] [address] [place], [place] [address]Wq. Bella Jerome MCV 95.3 fL Normal 81.0-99.0 [facility] Comment on above: Performed By: #### Jennifer VASQUEZ ####[facility] [address] [place], [place] [address]Yu. Bella Jerome METAMYELOCYTE # Normal [facility] Comment on above: Performed By: #### C PEDRO ####[facility] [address] [place], [place] [address]Pv. Bella Jerome METAMYELOCYTE % Normal [facility] Comment on above: Performed By: #### Jennifer VASQUEZ ####[facility] [address] [place], [place] [address]Yf. Bella Jerome MONOM# 2.35 103/ul Critically high 0.30-0.80 [facility] Comment on above: Performed By: #### C PEDRO ####[facility] [address] [id number]. Bella Jerome MONOM% 11.0 % Normal 1.7-12.0 [facility] Comment on above: Performed By: #### C PEDRO ####[facility] [address] [id number]. Bella Jerome MPV 11.1 fL Normal 9.5-13.5 [facility] Comment on above: Performed By: #### C PEDRO ####[facility] [address] [address]Dr. Bella Jerome MYELOCYTE # Normal [facility] Comment on above: Performed By: #### C PEDRO ####[facility] [address] [id number]. Bella Jerome MYELOCYTE % Normal [facility] Comment on above: Performed By: #### C PEDRO ####[facility] [address] [id number]. Bella Jerome NRBC Normal [facility] Comment on above: Performed By: #### C PEDRO ####[facility] [address] [address]Dr. Bella Jerome PLT 227 103/ul Normal 150-450 [facility] Comment on above: Performed By: #### C PEDRO ####[facility] [address] [address]Dr. Bella Jerome RBC 3.20 106/ul Critically low 4.20-5.40 [facility] Comment on above: Performed By: #### C PEDRO ####[facility] [address] [address]Dr. Bella Jerome RDW 12.8 % Normal 11.0-15.0 [facility] Comment on above: Performed By: #### C PEDRO ####[facility] [address] [id number]. Bella Jerome SEG # 16.05 103/ul Critically high 1.40-6.50 [facility] Comment on above: Performed By: #### C BCRELL ####[facility] [address] [address]Dr. Bella Jerome SEG % 75.0 % Normal 43.0-75.0 [facility] Comment on above: Performed By: #### C BCMAN ####[facility] [address] [address]DrWill Jerome WBC 21.4 103/ul Critically high 4.0-11.0 [facility] Comment on above: Performed By: #### C PEDRO ####[facility] [address] [address]DrWill Jerome CBC AUTO DIFFon 09-05-2022 BASO # 0.0 103/ul Normal 0.0-0.1 [facility] Comment on above: Performed By: #### C BC #### [facility] Laboratory [address] [address] [address] Bella Jerome Basophils/100 WBC (Bld) 0.2 % Normal 0.2-2.0 [facility] Comment on above: Performed By: #### C BC #### [facility] Laboratory [address] [address] [address] Bella Jerome EO # 0.1 103/ul Normal 0.0-0.7 [facility] Comment on above: Performed By: #### C BC #### [facility] Laboratory [address] [address] [address] Bella Jerome Eosinophils/100 WBC (Bld) 0.6 % Critically low 0.9-7.0 [facility] Comment on above: Performed By: #### C BC #### [facility] Laboratory [address] [address] [address] Bella Jerome Erythrocyte distribution width (RBC) [Ratio] 12.6 % Normal 11.0-15.0 [facility] Comment on above: Performed By: #### C BC #### [facility] Laboratory [address] [place] [address] Dr. Belal Jerome Hematocrit (Bld) [Volume fraction] 32.5 % Critically low 36.0-48.0 [facility] Comment on above: Performed By: #### C BC #### [facility] Laboratory [address] [place] [address] Dr. Bella Jerome Hemoglobin (Bld) [Mass/Vol] 11.1 g/dL Critically low 12.0-16.0 [facility] Comment on above: Performed By: #### C BC #### [facility] Laboratory [address] [place] [address] Dr. Bella Jerome IG # 0.14 10e3/ul Critically high 0.00-0.03 [facility] Comment on above: Performed By: #### C BC #### [facility] Laboratory [address] [place] [address] Dr. Bella Jerome IG % 1.1 % Critically high 0.0-0.5 [facility] Comment on above: Performed By: #### C BC #### [facility] Laboratory [address] [place] [address] Dr. Bella Jerome LYMPH # 2.6 103/ul Normal 1.2-3.8 [facility] Comment on above: Performed By: #### C BC #### [facility] Laboratory [address] [place] [address] Dr. Bella Jerome Lymphocytes/100 WBC (Bld) 20.2 % Critically low 20.5-60.0 [facility] Comment on above: Performed By: #### C BC #### [facility] Laboratory [address] [place] [address] Dr. Bella Jerome MANUAL DIFF REQ NO Normal [facility] Comment on above: Performed By: #### C BC #### [facility] Laboratory [address] [place] [address] Dr. Bella Jerome MCH (RBC) [Entitic mass] 32.2 pg Normal 26.7-34.0 [facility] Comment on above: Performed By: #### C BC #### [facility] Laboratory [address] [place] [address] Dr. Bella Jerome MCHC (RBC) [Mass/Vol] 34.2 g/dL Normal 29.9-35.2 [facility] Comment on above: Performed By: #### C BC #### [facility] Laboratory [address] [place] [address] Dr. Bella Jerome MCV (RBC) [Entitic vol] 94.2 fL Normal 81.0-99.0 [facility] Comment on above: Performed By: #### C BC #### [facility] Laboratory [address] [place] [address] Dr. Bella Jerome MONO # 0.9 103/ul Critically high 0.3-0.8 [facility] Comment on above: Performed By: #### C BC #### [facility] Laboratory [address] [place] [address] Dr. Bella Jerome Monocytes/100 WBC (Bld) 7.1 % Normal 1.7-12.0 [facility] Comment on above: Performed By: #### C BC #### [facility] Laboratory [address] [place] [address] Dr. Bella Jerome NEUT # 8.9 103/ul Critically high 1.4-6.5 [facility] Comment on above: Performed By: #### C BC #### [facility] Laboratory [address] [place] [address] Dr. Bella Jerome Neutrophils/100 WBC (Bld) 70.8 % Normal 43.0-75.0 [facility] Comment on above: Performed By: #### C BC #### [facility] Laboratory [address] [place] [address] Dr. Bella Jerome Platelet mean volume (Bld) [Entitic vol] 11.0 fL Normal 9.5-13.5 [facility] Comment on above: Performed By: #### C BC #### [facility] Laboratory [address] [place] [address] Dr. Bella Jerome PLT 234 103/ul Normal 150-450 [facility] Comment on above: Performed By: #### C BC #### [facility] Laboratory [address] [place] [address] Dr. Bella Jerome RBC 3.45 106/ul Critically low 4.20-5.40 [facility] Comment on above: Performed By: #### C BC #### [facility] Laboratory [address] [place], [place] [address] Dr. Bella Jerome WBC 12.6 103/ul Critically high 4.0-11.0 [facility] Comment on above: Performed By: #### C BC #### [facility] Laboratory [address] [place], [place] [address] Dr. Bella Jerome Covid-19 PCR (CVDTB)on SARS-CoV-2 (COVID-19) RNA FAVIAN+probe Ql (Unsp spec) Not detected Normal NOT DETECTED [facility] [...] for this test is supported by the [place] of Health and Human Service's declaration that [...] be used). Performed By: #### C VDTBH ####[facility] [address] [place], [place] [address]Lo. Bella Jerome DRUG SCREEN RAPID (URINE)on 09-05-2022 AMP Negative Normal NEGATIVE [facility] Comment on above: Performed By: #### D RUGRPD ####[facility] [address] [place], [place] [address]TbWill Jerome BAR Negative Normal NEGATIVE [facility] Comment on above: Performed By: #### D RUGRPD ####[facility] [address] [place], [place] [address]Dr. Bella Jerome BUP Negative Normal NEGATIVE [facility] Comment on above: Performed By: #### D RUGRPD ####[facility] [address] [place], [place] [address]Dr. Liwally Jerome BZO Negative Normal NEGATIVE [facility] Comment on above: Performed By: #### D RUGRPD ####[facility] [address] [place], [place] [address]Dr. Liwally Jerome NGA Negative Normal NEGATIVE [facility] Comment on above: Performed By: #### D RUGRPD ####[facility] [facility] [address] [place], [place] [address]Dr. Bella Jerome CUT-OFFS SEE BELOW Normal [facility] Comment on above: Result Comment: [...] 300 ng/mL Performed By: #### D RUGRPD ####[facility] X[address] [place], [place] [address]Dr. Bella Jerome DRUG CUT HEADER DRUG CLASS TEST SYSTEM CUT-OFF CONCENTRATIONS ARE FOLLOWS: Normal The [facility] Comment on above: Performed By: #### D RUGRPD ####[facility] [address] [place], [place] [address]Dr. Bella Jerome mAMP Negative Normal NEGATIVE The [facility] Comment on above: Performed By: #### D RUGRPD ####[facility] [address] [place], [place] [address]Dr. Bella Jerome MTD Negative Normal NEGATIVE The [facility] Comment on above: Performed By: #### D RUGRPD ####[facility] [address] [place] [id number]. Bella Jerome OPI Negative Normal NEGATIVE The [facility] Comment on above: Performed By: #### D RUGRPD ####[facility] [address] [place] [id number]. Yiwally Jerome OXY Negative Normal NEGATIVE The [facility] Comment on above: Performed By: #### D RUGRPD ####[facility] [address] [place] [address]Dr. Yiwally Jerome PCP Negative Normal NEGATIVE The [facility] Comment on above: Performed By: #### D RUGRPD ####[facility] [address] [place] [address]Dr. Bella Jerome PPX Negative Normal NEGATIVE The [facility] Comment on above: Performed By: #### D RUGRPD ####[facility] [address] [place] [address]Dr. Yiwally Jerome TCA Negative Normal NEGATIVE The [facility] Comment on above: Performed By: #### D RUGRPD ####[facility] [address] [place] [address]Dr. Bella Jerome THC Negative Normal NEGATIVE The [facility] Comment on above: Performed By: #### D RUGRPD ####[facility] [address] [place], [place] [address]Dr. Bella Jerome TYPE AND SCREENon 09-05-2022 TYPE AND SCREEN Negative Normal The [facility] Comment on above: Performed By: #### T NS ####[facility] [address] [place], [place] [address]Dr. Bella Jerome US PREG BIOPHY W NON [...] by: MANUELITO GREGG Date: 2022-08-31 17:06 Normal [facility] US PREG GROWTHon 08-30-2022 US [...] by: MANUELITO GREGG Date: 2022-08-30 17:59 Normal [facility] US PREG BIOPHY W NON STRESSo [...] by: MANUELITO GREGG Date: 2022-08-24 17:10 Normal [facility] FREE T4on 08-21-2022 Free T4 [Mass/Vol] 0.90 ng/dL Normal 0.76-1.46 [facility] Comment on above: Performed By: #### C BC #### [facility] Laboratory [address] [place], [place] [address] Dr. Bella Jerome TSHon 08-21-2022 TSH 1.033 uIU/mL Normal 0.358-3.740 [facility] Comment on above: Performed By: #### H H #### [facility] Laboratory [address] [place] [address] [address] Bella Jerome US PREG BIOPHY W [...] MANUELITO GREGG Date: 2022-08-17 18:33 Normal The [facility] GROUP B STREP CULTUREon 07-28 S. agalactiae Ag Ql (Unsp spec) Culture Observations: NEGATIVE FOR GROUP B STREPTOCOCCUS. Normal [facility] Comment on above: Performed By: #### G BSCX ####[facility] [address] [place] [address]Dr. Bella Jerome US PREG BIOPHY W NON [...] by: MANUELITO GREGG Date: 2022-08-10 16:36 Normal [facility] PREG GROWTHon 08-10-2022 US PREG GROWTH EXAMINATION: [...] by: MANUELITO GREGG Date: 2022-08-10 16:37 Normal [facility] PREG GROWTHon 07-25-2022 US PREG GROWTH EXAMINATION: [...] MANUELITO GREGG Date: 2022-07-25 18:18 Normal The [facility] FREE T4on 07-24-2022 Free T4 [Mass/Vol] 0.98 ng/dL Normal 0.76-1.46 [facility] Comment on above: Performed By: #### F T4 #### [facility] Laboratory [address] [place] [address] [address] Bella Jerome TSHon 07-24-2022 TSH 1.196 uIU/mL Normal 0.358-3.740 The [facility] Comment on above: Performed By: #### T SH ####[facility] [address] [place] [address]Dr. Bella Jerome UA (CLEAN/CATCH) SATURATOR/MICRO I F IND.on 07-20-2022 Bilirubin Ql (U) Negative Normal NEGATIVE [facility] Comment on above: Performed By: #### H H #### [facility] Laboratory [address] [place] [address] Dr. Bella Jerome Clarity (U) CLEAR Normal CLEAR [facility] Comment on above: Performed By: #### H H #### [facility] [address] [place] [address] Dr. Bella Jerome Color (U) LT. YELLOW Normal YELLOW [facility] Comment on above: Performed By: #### H H #### [facility] [address] [place] [address] [address] Bella Jerome Glucose Ql (U) Negative Normal NEGATIVE The [facility] Comment on above: Performed By: #### H H #### [facility] [address] [place] [address] [address] Bella Jerome Hemoglobin Ql (U) Negative Normal NEGATIVE The [facility] Comment on above: Performed By: #### H H #### [facility] [address] [place] [address] Dr. Bella Jerome Ketones Ql (U) Negative Normal NEGATIVE The [facility] Comment on above: Performed By: #### H H #### [facility] [address] [place] [address] [address] Bella Jerome LEUKOCYTES Negative Normal NEGATIVE [facility] Comment on above: Performed By: #### H H #### [facility] [address] [place] [address] Dr. Bella Jerome Nitrite Ql (U) Negative Normal NEGATIVE [facility] Comment on above: Performed By: #### H H #### [facility] [address] [place] [address] [address] Bella Jerome pH (U) 7.0 [pH] Normal 5-9 [facility] Comment on above: Performed By: #### H H #### [facility] [address] [place] [address] Dr. Bella Jerome SPEC GRAVITY <=1.005 Abnormal 1.005-<=1.025 [facility] Comment on above: Performed By: #### H H #### [facility] [address] [place] [address] Dr. Bella Jerome UA PROTEIN Negative Normal NEGATIVE/ TRACE The [facility] Comment on above: Performed By: #### H H #### [facility] [address] [place] [address] Dr. Bella Jerome UR MICRO IND NOT INDICATED Normal [facility] Comment on above: Performed By: #### H H #### [facility] [address] [place] [address] Dr. Bella Jerome Urobilinogen Qn (U) 0.2 {Kimberlee'U}/dL Normal 0.2 - 1. 0 [facility] Comment on above: Performed By: #### H H #### [facility] [address] [place] [address] Dr. Bella Jerome US PREG GROWTHon 06-27-2022 [...] by: RAGINI SANTOS Date: 2022-06-27 16:23 Normal [facility] FREE T4on 06-20-2022 Free T4 [Mass/Vol] 0.82 ng/dL Normal 0.76-1.46 [facility] Comment on above: Performed By: #### H H #### [facility] [address] [place] [address] Dr. Bella Jerome GLUCOSE - 1HRon 06-20-2022 Glucose [Mass/Vol] 127 mg/dL Critically high 74-[address] [facility] Comment on above: Performed By: #### H H #### [facility] Laboratory [address] [place] [address] [address] Bella Jerome HEMOGRAM AND PLATELon 2021 Hematocrit (Bld) [Volume fraction] 32.4 % Critically low 36.0-48.0 [facility] Comment on above: Performed By: #### H H #### [facility] [address] [place] [address] [address] Bella Jerome Hemoglobin (Bld) [Mass/Vol] 10.9 g/dL Critically low 12.0-16.0 [facility] Comment on above: Performed By: #### H H #### [facility] [address] [place] [address] Dr. Bella Jerome MCH (RBC) [Entitic mass] 32.9 pg Normal 26.7-34.0 [facility] Comment on above: Performed By: #### H H #### [facility] [address] [place] [address] Dr. Bella Jerome MCHC (RBC) [Mass/Vol] 33.6 g/dL Normal 29.9-35.2 The [facility] Comment on above: Performed By: #### H H #### [facility] Laboratory [address] [place] [address] Dr. Bella Jerome MCV (RBC) [Entitic vol] 97.9 fL Normal 81.0-99.0 [facility] Comment on above: Performed By: #### H H #### [facility] [address] [place] [address] [address] Bella Jerome PLT 241 103/ul Normal 150-450 The [facility] Comment on above: Performed By: #### H H #### [facility] Laboratory [address] [place] [address] Dr. Bella Jerome RBC 3.31 106/ul Critically low 4.20-5.40 The [facility] Comment on above: Performed By: #### H H #### [facility] Laboratory [address] [place] [address] [address] Bella Jerome WBC 11.3 103/ul Critically high 4.0-11.0 [facility] Comment on above: Performed By: #### H H #### [facility] Laboratory [address] [place] [address] Dr. Bella Jerome TSHon 06-20-2022 TSH 3.044 uIU/mL Normal 0.358-3.740 The [facility] Comment on above: Performed By: #### C BC #### [facility] Laboratory [address] [place] [address] Dr. Bella Jerome US PREG INCOMPLETE ANATOMYon 05-24-2022 US PREG INCOMPLETE ANATOMY EXAMINATION: US PREG INCOMPLETE ANATOMY HISTORY: screening COMPARISON: Ultrasound anatomy 04/26/2022 FINDINGS: Presentation: Cephalic Heart rate: 154 bpm Anatomy: Cervical, thoracic, and lumbar spine HERNANDO: 09/13/2022 IMPRESSION: 1. Adequate visualization of the cervical, thoracic, and lumbar spine; no appreciable abnormality. Electronically authenticated by: RAGINI SANTOS Date: 2022-05-24 17:33 Normal The [facility] US PREG ANATOMY SINGLEon 06- 30-2022 US [...] MANUELITO GREGG Date: 2022-04-26 16:54 Normal The [facility] CHLAMYDIA/GONOCOCCUS FAVIAN (SW AB/URINE/PAPon 04-19-2022 Chlamydia trachomatis, FAVIAN Negative Normal Negative The [facility] Comment on above: Performed By: #### C T/NGNA ####[facility] [address] [place] [address]DrWill Jerome Neisseria gonorrhoeae, FAVIAN Negative Normal Negative The [facility] Comment on above: Performed By: #### C T/NGNA ####[facility] [address] [place] [address]Dr. Bella Jerome VAGINITIS/VAGINOSIS DNA PROB Leonid 04-18-2022 Jessica species Negative Normal Negative The [facility] Comment on above: Performed By: #### H H #### [facility] Laboratory [address] [place] [address] Dr. Bella Jerome Gardnerella vaginalis Negative Normal Negative The [facility] Comment on above: Performed By: #### H H #### [facility] Laboratory [address] [place] [address] [address] Bella Jerome Trichomonas vaginalis Negative Normal Negative [facility] Comment on above: Performed By: #### H H #### [facility] Laboratory [address] [place] [address] [address] Bella Jerome FREE T4on 04-05-2022 Free T4 [Mass/Vol] 0.88 ng/dL Normal 0.76-1.46 The [facility] Comment on above: Performed By: #### F T4 #### [facility] Laboratory [address] [place] [address] Dr. Bella Jerome TSHon 04-05-2022 TSH 1.786 uIU/mL Normal 0.358-3.740 The [facility] Comment on above: Performed By: #### T SH ####[facility] [address] [place] [address]Dr. Bella Jerome TSH RANGE SEE BELOW Normal The [facility] Comment on above: Result Comment: <0.3 4 UIU/ml HYPERTHYROID 0.34-5.60 UIU/ml EUTHYROID >5.60 UIU/ml HYPOTHYROID Performed By: #### T SH ####[facility] [address] [place] [address]Dr. Bella Jerome FREE T4on 02-26-2022 Free T4 [Mass/Vol] 1.06 ng/dL Normal 0.76-1.46 The [facility] Comment on above: Performed By: #### C BC #### [facility] Laboratory [address] [place] [address] Dr. Bella Jerome TSHon 02-26-2022 TSH 2.024 uIU/mL Normal 0.470-4.680 The [facility] Comment on above: Performed By: #### C BC #### [facility] Laboratory [address] [place], [place] [address] Dr. Bella Jerome TSH RANGE SEE BELOW Normal [facility] Comment on above: Result Comment: <0.3 4 UIU/ml HYPERTHYROID 0.34-5.60 UIU/ml EUTHYROID >5.60 UIU/ml HYPOTHYROID Performed By: #### C BC #### [facility] [address] [place], [place] [address] Dr. Bella Jerome Vital Signs Date Time Vital Sign Value Performing Clinician Facility 08-18-2024 13:50-0400 Body mass index (BMI) [Ratio] 43.54 kg/m2 Agus Marquita DO Work Phone: [facility] 08-18-2024 13:50-0400 Body weight 111.49 kg Agus Marquita DO Work Phone: [facility] 08-18-2024 13:50-0400 Diastolic blood pressure 74 mm[Hg] Agus Marquita DO Work Phone: [facility] 08-18-2024 13:50-0400 Systolic blood pressure 118 mm[Hg] Agus Marquita DO Work Phone: [facility] 08-04-2024 13:30-0400 Body mass index (BMI) [Ratio] 44.37 kg/m2 Marylou CARBAJAL Work Phone: [facility] 08-04-2024 13:30-0400 Body weight 113.63 kg Marylou CARBAJAL Work Phone: [facility] 08-04-2024 13:30-0400 Diastolic blood pressure 78 mm[Hg] Marylou CARBAJAL Work Phone: [facility] 08-04-2024 13:30-0400 Systolic blood pressure 128 mm[Hg] Marylou CARBAJAL Work Phone: [facility] 02-13-2024 11:24-0400 Body height 160.02 cm [facility] 02-13-2024 11:24-0400 Body mass index (BMI) [Ratio] 42.3 kg/m2 [facility] 02-13-2024 11:24-0400 Body weight 108.49 kg [facility] 02-13-2024 11:24-0400 Diastolic blood pressure 70 mm[Hg] [facility] 02-13-2024 11:24-0400 Heart rate 69 /min [facility] 02-13-2024 11:24-0400 Respiratory rate 18 /min [facility] 02-13-2024 11:24-0400 SaO2% (BldA) [Mass fraction] 98 % [facility] 02-13-2024 11:24-0400 Systolic blood pressure 118 mm[Hg] [facility] 10-31-2023 15:00-0500 Body height 160.02 cm Sandra Austin Other [facility] [employer] Other 10-31-2023 15:00-0500 Body mass index (BMI) [Ratio] 45.41 kg/m2 Sandra Austin Other [facility] [employer] Other 10-31-2023 15:00-0500 Body temperature 98.5 [degF] Sandra Austin Other [facility] [employer] Other 10-31-2023 15:00-0500 Body weight 116.3 kg Sandra Austin Other [facility] [employer] Other 10-31-2023 15:00-0500 Diastolic blood pressure 80 mm[Hg] Sandra Austin Other [facility] [employer] Other 10-31-2023 15:00-0500 Respiratory rate 18 /min Sandra Austin Other [facility] [employer] Other 10-31-2023 15:00-0500 SaO2% (BldA) [Mass fraction] 98 % Sandra Austin Other [employer] Other 10-31-2023 15:00-0500 Systolic blood pressure 128 mm[Hg] Sandra Austin Other [employer] Other 06-24-2023 14:30-0400 Body height 160.02 cm Sandra Austin Other [employer] Other 06-24-2023 14:30-0400 Body mass index (BMI) [Ratio] 44.87 kg/m2 Sandra Austin Other [employer] Other 06-24-2023 14:30-0400 Body weight 114.9 kg Sandra Austin Other [employer] Other 06-24-2023 14:30-0400 Diastolic blood pressure 60 mm[Hg] Sandra Austin Other [employer] Other 06-24-2023 14:30-0400 Respiratory rate 18 /min Sandra Austin Other [employer] Other 06-24-2023 14:30-0400 SaO2% (BldA) [Mass fraction] 99 % Sandra Austin Other [employer] Other 06-24-2023 14:30-0400 Systolic blood pressure 110 mm[Hg] Sandra Austin Other [employer] Other 04-15-2023 09:25-0400 Body height 160.02 cm Ramonita Greenberg Other [employer] Other 04-15-2023 09:25-0400 Body mass index (BMI) [Ratio] 41.8 kg/m2 Ramonita Greenberg Other [employer] Other 04-15-2023 09:25-0400 Body temperature 98.5 [degF] Ramonita Greenberg Other [employer] Other 04-15-2023 09:25-0400 Body weight 107.05 kg Ramonita Greenberg Other [employer] Other 04-15-2023 09:25-0400 Respiratory rate 18 /min Ramonita Greenberg Other [employer] Other 04-15-2023 09:25-0400 SaO2% (BldA) [Mass fraction] 97 % Ramonita Greenberg Other [employer] Other 02-21-2023 14:45-0400 Body height 160.02 cm Sandra Austin Other [employer] Other 02-21-2023 14:45-0400 Body mass index (BMI) [Ratio] 41.39 kg/m2 Sandra Austin Other [employer] Other 02-21-2023 14:45-0400 Body weight 106.01 kg Sandra Austin Other [employer] Other 02-21-2023 14:45-0400 Diastolic blood pressure 60 mm[Hg] Sandra Austin Other [employer] Other 02-21-2023 14:45-0400 Respiratory rate 18 /min Sandra Austin Other [employer] Other 02-21-2023 14:45-0400 SaO2% (BldA) [Mass fraction] 98 % Sandra Austin Other [employer] Other 02-21-2023 14:45-0400 Systolic blood pressure 110 mm[Hg] Sandra Austin Other [employer] Other 12-24-2022 14:30-0500 Body height 160.02 cm Sandra Austin Other [employer] Other 12-24-2022 14:30-0500 Body mass index (BMI) [Ratio] 40.83 kg/m2 Sandra Austin Other [employer] Other 12-24-2022 14:30-0500 Body weight 104.55 kg Sandra Austin Other [employer] Other 12-24-2022 14:30-0500 Diastolic blood pressure 70 mm[Hg] Sandra Austin Other [employer] Other 12-24-2022 14:30-0500 Respiratory rate 18 /min Sandra Austin Other [employer] Other 12-24-2022 14:30-0500 SaO2% (BldA) [Mass fraction] 99 % Sandra Austin Other [employer] Other 12-24-2022 14:30-0500 Systolic blood pressure 118 mm[Hg] Sandra Austin Other [employer] Other 12-21-2021 16:30-0500 Body height 160.02 cm Sandra Austin Other [employer] Other 12-21-2021 16:30-0500 Body mass index (BMI) [Ratio] 38.58 kg/m2 Sandra Austin Other [employer] Other 12-21-2021 16:30-0500 Body temperature 97.3 [degF] Sandra Austin Other [employer] Other 12-21-2021 16:30-0500 Body weight 98.79 kg Sandra Austin Other [employer] Other 12-21-2021 16:30-0500 Diastolic blood pressure 60 mm[Hg] Sandra Austin Other [employer] Other 12-21-2021 16:30-0500 Respiratory rate 18 /min Sandra Austin Other [employer] Other 12-21-2021 16:30-0500 SaO2% (BldA) [Mass fraction] 99 % Sandra Austin Other [employer] Other 12-21-2021 16:30-0500 Systolic blood pressure 118 mm[Hg] Sandra Austin Other [employer] Other Encounters Encounter Date Encounter Type Care Provider Facility Start: 08-18-2024 End: 08-18-2024 Bamboo flowsheet Agus Marquita DO Work Phone: [facility] Start: 08-18-2024 End: 08-18-2024 Bamboo flowsheet Agus Marquita DO Work Phone: [facility] Start: 08-18-2024 End: 08-18-2024 flow sheet Agus Marquita DO Work Phone: [facility] Comment on above: 34 weeks gestation o f ; Nausea and vomiting, unspecified vomiting type; Gastroesophageal reflux disease, unspecified whether esophagitis present; Heartburn during in third trimester Start: 08-04-2024 End: 08-04-2024 Bamboo flowsheet Marylou CARBAJAL Work Phone: [facility] Start: 08-04-2024 End: 08-04-2024 Bamboo flowsheet Marylou CARBAJAL Work Phone: [facility] Start: 08-04-2024 End: 08-04-2024 ambulatory MARYLOU PRIEST Not Available Start: 08-04-2024 End: 08-04-2024 flow sheet Marylou CARBAJAL Work Phone: [facility] Comment on above: 32 weeks gestation o f ; Third trimester ; Anxiety, generalized ([facility] Start: 07-21-2024 End: 07-21-2024 ambulatory AGUS [...] Not Available Start: 02-13-2024 End: 02-13-2024 ambulatory [facility] Work Phone: Start: 02-13-2024 End: 02-13-2024 Patient encounter procedure [facility] Work Phone: Start: 12-16-2023 Non-patient / Non-visit [facility] [employer] Work Phone: Start: 12-16-2023 End: 12-16-2023 ambulatory AGUS JUÁREZ Not Available Start: 10-31-2023 End: 10-31-2023 ambulatory Sandra Geovanna Other [employer] Other Start: 10-31-2023 Office outpatient vi sit 25 minutes Sandra Austin [facility] [place] Start: 07-19-2023 End: 07-19-2023 ambulatory Sandra Geovanna Other [employer] Other Start: 07-19-2023 Telephone encounter Sandra Guevara [facility] [place] Start: 06-24-2023 End: 06-24-2023 ambulatory Sandra Geovanna Other [employer] Other Start: 06-24-2023 Office outpatient vi sit 25 minutes Sandra Austin [facility] [place] Start: 06-04-2023 End: 06-04-2023 ambulatory Sandra Geovanna Other [employer] Other Start: 06-04-2023 Telephone encounter Sandra Guevara [facility] Start: 04-15-2023 End: 04-15-2023 ambulatory Ramonita Greenberg Other [employer] Other Start: 04-15-2023 Office outpatient vi sit 15 minutes Ramonita Greenberg [facility] [place] Start: 04-11-2023 End: 04-11-2023 ambulatory Sandra Austin Other [employer] Other Start: 04-11-2023 Telephone encounter Sandra Austin [facility] [place] Start: 02-21-2023 Office outpatient vi sit 25 minutes Sandra Austin [facility] [place] Start: 02-21-2023 End: 02-22-2023 ambulatory SANDRA AUSTIN [employer] Other Start: 01-04-2023 End: 01-04-2023 ambulatory Sandra Austin Other [employer] Other Start: 01-04-2023 Telephone encounter Sandra Guevara [facility] Start: 12-30-2022 Encounter for genera l adult medical examination without abnormal findings SANDRA AUSTIN [facility] Start: 12-27-2022 End: 12-27-2022 ambulatory Sandra Austin Other [employer] Other Start: 12-27-2022 Telephone encounter [facility] Start: 12-26-2022 End: 12-27-2022 ambulatory SANDRA AUSTIN Facility:[facility]1 Start: 12-26-2022 End: 12-27-2022 Encounter for general adult medical examination without abnormal findings SANDRA AUSTIN Facility:[facility] Start: 12-24-2022 End: 12-24-2022 ambulatory Sandra Austin Other [employer] Other Start: 12-24-2022 Encounter for genera l adult medical examination without abnormal findings Sandra Austin [facility] Start: 12-24-2022 Periodic preventive med est patient 18-39 yrs Sandra Austin [facility] Start: 12-10-2022 End: 12-10-[address] AGUS JUÁREZ . Facility:[facility] Start: 09-12-2022 End: 10-11-[address] AGUS UJÁREZ . Facility:[facility] Start: 09-10-2022 End: 09-10-2022 ambulatory [...] 12-21-2021 End: 12-21-2021 ambulatory Sandra Kaple Other [employer] Other Start: 12-21-2021 Office outpatient ne w 45 minutes Sandra Austin [facility] [place] Procedures Date Procedure Procedure Detail Performing Clinician [...] EST Office Visit [facility] [address] [facility] [place] [id number] Agus Juárez, DO [address] [place] [address] [facility] Start: 09-01-2024 End: 09-01-2024 Patient encounter procedure 09/01/2024 1:30 PM EST Routine [facility] [address] [place] [id number] Agus Juárez, DO [address] [place] [address] [facility] Start: 08-18-2024 End: 08-18-2024 Patient encounter procedure 08/18/2024 1:30 PM EDT Routine [facility] [address] [place] [id number] Agus Juárez, DO [address] [place], [place] [id number] [facility] Start: 08-18-2024 End: 08-18-2024 Professional / ancillary services management 08/18/2024 1:00 PM EDT Ancillary Procedure [facility] [address] [address] [facility] Patient Education Low back pain in adults [facility] Work Phone: Immunizations Immunization Date Immunization Notes Care Provider Fa cility 09-08-2022 diphtheria, tetanus toxoids and pertussis vaccine Marylou CARBAJAL Work Phone: [facility] 09-12-2021 pneumococcal conjuga te vaccine, 13 valent Marylou CARBAJAL Work Phone: [facility] 08-14-1999 diphtheria, tetanus toxoids and acellular pertussis vaccine, unspecified formulation Marylou CARBAJAL Work Phone: [facility] 08-14-1999 haemophilus influenz ae type b vaccine, HbOC conjugate Marylou CARBAJAL Work Phone: [facility] 08-14-1999 measles, mumps and rubella virus vaccine Marylou CARBAJAL Work Phone: [facility] 08-14-1999 trivalent poliovirus vaccine, live, oral Marylou CARBAJAL Work Phone: [facility] 04-27-1998 diphtheria, tetanus toxoids and acellular pertussis vaccine, unspecified formulation Marylou CARBAJAL Work Phone: [facility] 04-27-1998 haemophilus influenz ae type b conjugate and Hepatitis B vaccine Marylou CARBAJAL Work Phone: [facility] 1997 diphtheria, tetanus toxoids and acellular pertussis vaccine, unspecified formulation Marylou CARBAJAL Work Phone: [facility] 1997 haemophilus influenz ae type b vaccine, HbOC conjugate Marylou CARBAJAL Work Phone: [facility] 1997 poliovirus vaccine, inactivated Marylou CARBAJAL Work Phone: [facility] 1997 diphtheria, tetanus toxoids and acellular pertussis vaccine, unspecified formulation Marylou CARBAJAL Work Phone: [facility] 1997 haemophilus influenz ae type b conjugate and Hepatitis B vaccine Marylou CARBAJAL Work Phone: [facility] 1997 poliovirus vaccine, inactivated Marylou CARBAJAL Work Phone: [facility] 1997 hepatitis B vaccine, pediatric or pediatric/adolescent dosage Marylou CARBAJAL Work Phone: [facility] Healthcare Payers Date Payer Category Payer Private Health Insurance [employer] [id number] 2023 Unknown [employer] [id number] 2023-Present [address] [place] [address] [id number]. [id number] 2023 Unknown [id number] 2.16.840.1.588139.19 1997 Unknown [id number] 2.16.840.1.244334.3.579.2. 593 1997 Unknown [id number] 2.16.840.1.555023.3.579.2. 593 1997 Unknown [id number] 2.16.840.1.942454.3.579.2. 593 1997 Unknown [id number] 2.16.840.1.390819.3.579.2. 593 1997 Unknown [id number] 2.16.840.1.736562.3.579.2. 593 1997 Unknown [id number] 2.16.840.1.775108.3.579.2. 593 1997 Unknown [id number] 2.16.840.1.997046.3.579.2. 593 1997 Unknown [id number] 2.16.840.1.834183.3.579.2. 593 1997 Unknown [id number] 2.16.840.1.416345.3.579.2. 593 1997 Unknown [id number] 2.16.840.1.897821.3.579.2. 593 1997 Unknown [id number] 2.16.840.1.575229.3.579.2. 593 1997 Unknown [id number] 2.16.840.1.320312.3.579.2. 593 1997 Unknown [id number] 2.16.840.1.866635.3.579.2. 593 1997 Unknown [id number] 2.16.840.1.827966.3.579.2. 593 1997 Unknown [id number] 2.16.840.1.304613.3.579.2. 593 1997 Unknown [id number] 2.16.840.1.973383.3.579.2. 593 1997 Unknown [id number] 2.16.840.1.073671.3.579.2. 593 1997 Unknown [id number] 2.16.840.1.158513.3.579.2. 593 1997 Unknown [id number] 2.16.840.1.792577.3.579.2. 593 1997 Unknown [id number] 2.16.840.1.601431.3.579.2. 593 1997 Unknown [id number] 2.16.840.1.368868.3.579.2. 593 1997 Unknown [id number] 2.16.840.1.123894.3.579.2. 593 1997 Unknown [id number] 2.16.840.1.741448.3.579.2. 593 1997 Unknown [id number] 2.16.840.1.838405.3.579.2. 1259 1997 Unknown [id number] 2.16.840.1.669442.3.579.2. 9 1997 Unknown [id number] 2.16.840.1.118368.3.579.2. 9 1997 Unknown [id number] 2.16.840.1.256593.3.579.2. 1259 1997 Unknown [id number] 2.16.840.1.605754.3.579.2. 9 1997 Unknown [id number] 2.16.840.1.098172.3.579.2. 9 1997 Unknown [id number] 2.16.840.1.783613.3.579.2. 1258 1997 Unknown [id number] 2.16.840.1.685773.3.579.2. 9 1997 Unknown [id number] 2.16.840.1.650759.3.579.2. 1259 1957 Medicaid [id number] 2.16.840.1.291880.19 1959 Private Health Insurance [id number] 2.16.840.1.589793.19 Self-pay Self Pay [id number] Unknown [place] [id number] Social History Date Type Detail Facility Start: 08-02-2023 End: 11-25-2023 Sex Assigned At [facility] [employer] Other Start: 1995 Sex Assigned At Female F [facility] Start: 08-02-2023 Tobacco smoking stat us NHIS Never smoked tobacco [facility] Start: 08-02-2023 Tobacco use and exposure Smokeless tobacco non-user [facility] Start: 07-21-2024 End: 08-04-2024 Alcoholic beverage intake Ex-drinker (finding) [facility] Start: 08-02-2023 End: 11-25-2023 History of Social function [facility] Start: 01-03-2024 [facility] Start: 1995 Sex assigned at Not on file [place] [facility] Clinical Notes 12-21-2021 [...] before breakfast, Do not crush or chew. Vwnwygnr-Otn-Am-FA ( 1 + IRON PO) Oral ALLERGIES [...] nursing note reviewed. Exam conducted with a stock supervisor present. Vitals: Estimated body mass index is [...] Agus Juárez DO documented in this encounter [facility] 08-04-2024 History of Presen t illness Narrative [...] before breakfast, Do not crush or chew. Nrcgsihs-Yfo-Wy-FA ( 1 + IRON PO) Oral ALLERGIES [...] of: SOLOMON Turner documented in this encounter [facility] 10-31-2023 Evaluation note Encounter Date Diagnosis Assessment [...] E28.2) She will continue to follow with OB-[facility] INST[facility] and continue healthy lifestyle changes that she [...] course of antibiotic. Increase fluids and rest. Vkxe-rpf-oorarty antipyretics as needed. Warning signs and symptoms reviewed with patient today. Patient to go immediately to the ER should she experience any of these. Patient to notify office should her symptoms persist and not improve. Patient verbalizes understanding and agrees to treatment plan. [employer] Other 09-22-2023 Evaluation note* Encounter Date Diagnosis Assessment Notes Treatment Notes Treatment Clinical Notes Jun, Vitamin D insufficiency (ICD-10 - E55.9) [employer] Other 08-28-2023 Evaluation note* Encounter Date Diagnosis [...] E28.2) She will continue to follow with OB-[facility] INST[facility] and continue healthy lifestyle changes that she [...] ENT today. Specialty notes reviewed as received. [employer] Other 08-08-2023 Evaluation note* Encounter Date Diagnosis Assessment Notes Treatment Notes Treatment Clinical Notes May, Other atopic dermatitis (ICD-10 - L20.89) May, Acute otitis externa of both ears, unspecified type (ICD-10 - H60.503) [employer] Other 06-19-2023 Evaluation note* Encounter Date Diagnosis [...] no improvement in 2 to 3 days [employer] Other 06-15-2023 Evaluation note* Encounter Date Diagnosis Assessment Notes Treatment Notes Treatment Clinical Notes Mar, Anxiety (ICD-10 - F41.9) [employer] Other 04-27-2023 Evaluation note* Encounter Date Diagnosis [...] plan on rechecking this at May appointment. [employer] Other 03-10-2023 Evaluation note* Encounter Date Diagnosis Assessment Notes Treatment Notes Treatment Clinical Notes Dec, Bacterial conjunctivitis (ICD-10 - H10.9) [employer] Other 03-02-2023 Evaluation note* Encounter Date Diagnosis Assessment Notes Treatment Notes Treatment Clinical Notes Dec, Vitamin D insufficiency (ICD-10 - E55.9) Dec, Elevated alkaline phosphatase level (ICD-10 - R74.8) Dec, Other specified hypothyroidism (ICD-10 - E03.8) [employer] Other 02-27-2023 Evaluation note* Encounter Date Diagnosis [...] ordered. Follow routinely with eye doctor, dentist, [facility]. Patient is advised to work on healthy diet choices and appropriate servings, weight control, regular exercise as directed, reduced fat intake, and salt avoidance. Patient voiced understanding of this and agrees to this plan. Nov, PCOS (polycystic ovarian syndrome) (ICD-10 - E28.2) Routine lab work ordered. She will continue to follow with OB-[facility]ST[facility] and continue healthy lifestyle changes that she [...] homicidal ideations. Started on Celexa by her [facility] INSTALL[facility]. Very stable on Celexa 20 mg daily. [...] her ears still persist after starting this. [employer] Other 02-24-2022 Evaluation note* Encounter Date Diagnosis Assessment Notes Treatment Notes Treatment Clinical Notes Nov, Prediabetes (ICD-10 - R73.03) She was recently dx with prediabetes and was started on Metformin 500 mg BID 2 weeks ago by her OB-[facility]. She would like to follow with our [...] - E28.2) She is following with her OB-[facility]ST[facility] for her PCOS and is currently on Metformin 500 mg BID and is taking medication to help her get . She will continue to follow with OB-[facility] and continue healthy lifestyle changes that she [...] of fatigue, difficulty losing weight by her OB-[facility]. She would like to start following with [...] of this and agrees to this plan. [employer] Other Evaluation note* Diagnosis Onset Date Resolution Status 8 weeks gestation of acute Low back pain [facility] Work Phone: Evaluation note* Diagnosis 32 weeks [...] THIRD NIPPLE REMOVED Surgical History Colonoscopy-normal 2018 [employer] Other Summary Purpose Family History Relationship Condition [...] Right ear pain (H92. 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 Specialty Start Date End Date Sandra Austin NP [address] [facility] [place] [address] PCP - General 07/19/23 Projection Welding Machine Operator Relationship Specialty Start Date End Date Sandra Austin NP [address] [facility] [place] [address] PCP - General 07/19/23 Projection Welding Machine Operator Relationship Specialty Start Date End Date Sandra Austin NP [address] [facility] [place] [address] PCP - General 07/19/23 Projection Welding Machine Operator Relationship Specialty Start Date End Date Sandra Austin NP [address] [place] [address] PCP - General 07/19/23 Goals (unrecognized section [...] BE BASED ON THE PRIMARY CLINICAL RECORDS. [facility] [employer] [facility]. provides no warranty or guarantee of the accuracy or completeness of information in this document.
[2024-08-26 15:30] VITALS: BP 119/67; PULSE 72
== END 2024-08-26 15:55 | disposition home or self-care (01) ==
LOC: US 07:18 → FBC 14:57
PROVIDERS: PCP Nurse Practitioner Family; Visit Provider Obstetrics & Gynecology
DX: O26.893 Other specified pregnancy related conditions, third trimester (principal); Z3A.35 35 weeks gestation of pregnancy; R79.89 Other specified abnormal findings of blood chemistry
CPT/HCPCS: 76818

== ENCOUNTER 2024-08-29 07:36 | Outpatient (OUT) | payer OTHER, SELFPAY ==
--- OUTSIDE RECORDS SUMMARY | 2024-08-29 07:39 | XMS_ITS | CCD ---
Author Organization [facility] CliniSysd Care Team Providers Care Data Architect Manager Name Role Phone [facility]oha[facility] Unavailable KAP, SANDRA Primary Care Unavailable MARQUITA ., DR GOLDSMITH Attending Unavailable WEST, DR MANUELITO Foley Consulting Unavailable MARQUITA ., DR GOLDSMITH Admitting Unavailable MARQUITA ., DR GOLDSMITH Consulting Unavailable BRIAN, VIRGINIA Admitting Unavailable VIRGINIA TORRES Attending Unavailable KAP, SANDRA Primary Care Unavailable [place], DR MANUELITO Foley Consulting Unavailable MARQUITA ., [...] Unavailable MARQUITA ., DR GOLDSMITH Attending Unavailable [place], DR MANUELITO Foley Consulting Unavailable MARQUITA ., [...] Unavailable MARQUITA ., DR GOLDSMITH Attending Unavailable [place], DR MANUELITO Foley Consulting Unavailable MARQUITA ., [...] LYK ., DR HU Consulting Unavailabl e [place], DR MANUELITO Foley Consulting Unavailable MARQUITA ., DR GOLDSMITH Consulting Unavailable SANDRA AUSTIN Primary Care Unavailable MARQUITA ., DR GOLDSMITH Attending Unavailable [place], DR MANUELITO Foley Consulting Unavailable MARQUITA ., DR GOLDSMITH Admitting Unavailable MARQUITA ., DR GOLDSMITH Consulting Unavailable Yari Ramonita Unavailable MARYLOU PRIEST Attending Unavailable MARQUITA, AGUS Attending Unavailable MARQUITA, AGUS Attending Unavailable MARQUITA, AGUS Attending Unavailable MARYLOU PRIEST Attending Unavailable MARQUITA, AGUS Attending Unavailable MARQUITA, AGUS Attending Unavailable MARQUITA, AGUS Attending Unavailable Geovanna BIT SETTER, Sandra Hall Primary Care Provider Medications Current [...] hours February 13, 2024 12:00am polymyxin b 22292 unt/ml / trimethoprim 1 mg/ml ophthalmic solution (3 sources) Dihydrofolate Reductase Inhibitor Antibacterial, Polymyxin-class Antibacterial Start: 01-04-2023 Polymyxin B-Trimethoprim 27086-8.1 UNIT/ML 1 drop into affected eye Ophthalmic every 3 hours up to six times daily for 7 days Dec, Active (10 sources) Active Qenhpale-Rnd-Xc-FA ( 1 + IRON PO) (6 sources) Iuusozjn-Rrl-Qu-F A ( 1 + IRON PO) Take [...] acid 7540 MG / polyethylene glycol 3350 87297 MG / potassium chloride 1200 MG / sodium ascorbate 78478 MG / sodium chloride 3200 MG Powder for Oral Solution) / 1 (polyethylene glycol 3350 293596 MG / potassium chloride 1000 MG / [...] UA Negative Negative - 4(70) +++ mg/dL [facility] Blood, UA Negative Negative - 50 Jose Manuel/mcL [facility] Clarity, UA Clear Merged with [facility] re Color, UA Yellow [facility] e Glucose, UA Negative Negative - 1999(110) ++++ mg/dL [facility] Interpretation and review of laboratory results Normal [facility] Ketones, UA Negative Negative - 160(16) ++++ mg/dL [facility] Leukocytes, UA Negative Negative - 500+++ Alexys/mcL [facility] Nitrite, UA Negative Negative - Positive [facility] pH, UA 6.5 5 - 9 [facility] Protein, UA Negative Negative - 1999(20) ++++ mg/dL [facility] Spec Grav, UA 1.01 1 - 1.03 [facility] care Urobilinogen, UA 0.2 0.2 - 12 mg/dL [facility] e Urinalysis macro (dipstick) panel (U)on 08-04-2024 Bilirubin, UA Negative Negative - 4(70) +++ mg/dL [facility] Blood, UA Negative Negative - 50 Jose Manuel/mcL [facility] Clarity, UA Clear Merged with [facility] re Color, UA Yellow [facility] e Glucose, UA Negative Negative - 1999(110) ++++ mg/dL [facility] Interpretation and review of laboratory results Abnormal [facility] Ketones, UA Negative Negative - 160(16) ++++ mg/dL [facility] Leukocytes, UA Trace Negative - 500+++ Alexys/mcL [facility] Nitrite, UA Negative Negative - Positive [facility] pH, UA 7.0 5 - 9 [facility] e Protein, UA Negative Negative - 1999(20) ++++ mg/dL [facility] Spec Grav, UA 1.015 1 - 1.03 [facility] Urobilinogen, UA 0.2 0.2 - 12 mg/dL [facility] Human papilloma virus [...] component) are present.Performed by: 02 Raeann Duran, Pl Sql Programmer ([facility]). 02Note: Note 02 The Pap smear is a screening test designed to aid in the detection of premalignant and malignant conditions of the uterine cervix. It is not a diagnostic procedure and should not be used as the sole means of detecting cervical cancer. Both false-positive and false-negative reports do occur.Test Methodology: Note 02 The Wander Prep(R) Power Transmission Engineer was unable to read this specimen. Therefore a manual review was performed. ----- FLAG LEGEND: L-Low Normal,H-High Normal,LL-Alert Low,HH-Alert High <-Panic Low,>-Panic High,A-Abnormal,AA-Critical Abnormal ---Performed at:[address] [id number] Heavenly Serrano MD, . 02 The HPV DNA reflex criteria were not met with this specimen result therefore, no HPV testing was performed.The HPV DNA reflex criteria were not met with this specimenresult therefore, no HPV testing was performed.Performed at: =[address] [id number] Director: Heavenly Serrano MD, Phone: [phone] at: [facility] [id number] Director: Heavenly Serrano MD, Phone: [phone] No Panel Informationon 12-16 Reference Lab Test Patient Age Note . [facility] Comment on above: TESTS RESULT FLAG UN ITS REF RANGE LAB Clinician Provided Cytology Information Source.............Cervix No. of containers..01 ThinPrep VialAge Algo ACOG Leslye... FLAG LEGEND: L-Low Normal,H-High Normal,LL-Alert Low,HH-Alert High <-Panic Low,>-Panic High,A-Abnormal,AA-Critical Abnormal ---Performed at:01 =G [facility] [id number] Heavenly Serrano MD, A1C HEMOGLOBINon 10-31-2023 HbA1c (Bld) [Mass fraction] 5.8 % Telepo Other HbA1c (Bld) [Mass fraction]o n 10-31-2023 A1C HEMOGLOBIN Theorem Other A1C HEMOGLOBINon 06-24-2023 HbA1c (Bld) [Mass fraction] 5.2 % Telepo Other HbA1c (Bld) [Mass fraction]o n 06-24-2023 A1C HEMOGLOBIN Theorem Other Quick Strepon 04-15-2023 S. pyogenes Org specific cx Ql (Throat) Positive Telepo Other Quick Strep Telepo Other FREE T4on 02-21-2023 Free T4 [Mass/Vol] 0.89 ng/dL Normal 0.76-1.46 [facility] Comment on above: Performed By: #### H H #### [facility] [address] [place] [address] Dr. Bella Jerome PROF 14(COMP METB)on 023 Albumin [Mass/Vol] 3.7 g/dL Normal 3.4-5.0 [facility] Comment on above: Performed By: #### H H #### [facility] [address] [place] [address] Dr. Bella Jerome Albumin/Globulin [Mass ratio] 0.9 {ratio} Normal [facility] Comment on above: Performed By: #### H H #### [facility] [address] [place] [address] Dr. Bella Jerome ALP [Catalytic activity/Vol] 132 U/L Critically high 46-116 [facility] Comment on above: Performed By: #### H H #### [facility] [address] [place] [address] Dr. Bella Jerome ALT [Catalytic activity/Vol] 32 U/L Normal 14-59 [facility] Comment on above: Performed By: #### H H #### [facility] [address] [place] [address] Dr. Bella Jerome Anion gap [Moles/Vol] 12.8 mmol/L Normal [facility] Comment on above: Performed By: #### H H #### [facility] [address] [place] [address] Dr. Bella Jerome AST [Catalytic activity/Vol] 23 U/L Normal 15-37 [facility] Comment on above: Performed By: #### H H #### [facility] [address] [place] [address] Dr. Bella Jerome Bilirubin [Mass/Vol] 0.6 mg/dL Normal 0.2-1.0 [facility] Comment on above: Performed By: #### H H #### [facility] [address] [place] [address] Dr. Bella Jerome Calcium [Mass/Vol] 9.0 mg/dL Normal 8.5-10.1 [facility] Comment on above: Performed By: #### H H #### [facility] [address] [place] [address] Dr. Bella Jerome Chloride [Moles/Vol] 102 mmol/L Normal 98-107 [facility] Comment on above: Performed By: #### H H #### [facility] [address] [place] [address] Dr. Bella Jerome CO2 [Moles/Vol] 28.2 mmol/L Normal 21.0-32.0 [facility] Comment on above: Performed By: #### H H #### [facility] [address] [address] [address] Bella Jerome Creatinine [Mass/Vol] 0.67 mg/dL Normal 0.55-1.02 [facility] Comment on above: Performed By: #### H H #### [facility] [address] [address] [address] Bella Jerome EGFR-AF DUTCH >60 Normal >=60 [facility] Comment on above: Performed By: #### H H #### [facility] [address] [place] [address] Dr. Bella Jerome EGFR-NON AF DUTCH >60 Normal >=60 [facility] Comment on above: Performed By: #### H H #### [facility] [address] [place] [address] Dr. Bella Jerome Globulin (S) [Mass/Vol] 4.2 g/dL Normal [facility] Comment on above: Performed By: #### H H #### [facility] [address] [place] [address] Dr. Bella Jerome Glucose [Mass/Vol] 88 mg/dL Normal 74-106 [facility] Comment on above: Performed By: #### H H #### [facility] [address] [place] [address] Dr. Bella Jerome Potassium [Moles/Vol] 4.0 mmol/L Normal 3.5-5.1 [facility] Comment on above: Performed By: #### H H #### [facility] [address] [place] [address] Dr. Bella Jerome Protein [Mass/Vol] 7.9 g/dL Normal 6.4-8.2 [facility] Comment on above: Performed By: #### H H #### [facility] [address] [place] [address] Dr. Bella Jerome Sodium [Moles/Vol] 139 mmol/L Normal 136-145 [facility] Comment on above: Performed By: #### H H #### [facility] [address] [place] [address] Dr. Bella Jerome Urea nitrogen [Mass/Vol] 12.0 mg/dL Normal 7.0-18.0 [facility] Comment on above: Performed By: #### H H #### [facility] [address] [place] [address] Dr. Bella Jerome Urea nitrogen/Creatinine [Mass ratio] 17.9 mg/mg Normal [facility] Comment on above: Performed By: #### H H #### [facility] [address] [place] [address] Dr. Bella Jerome TSHon 02-21-2023 TSH 2.463 uIU/mL Normal 0.358-3.740 [facility] Comment on above: Performed By: #### H H #### [facility] [address] [place] [address] Dr. Bella Jerome VITAMIN D 25 OHon 02-21-2023 VIT D 25-OH 23.1 ng/mL Normal [facility] Comment on above: Performed By: #### H H #### [facility] [address] [place] [address] Dr. Bella Jerome VIT D RANGES SEE BELOW Normal [facility] Comment on above: Result Comment: <20 ng/mL Vit D deficient 20 - <30 ng/mL Vit D insufficient 30 - 100 ng/mL Vit D sufficient >100 ng/mL Potential Toxicity Performed By: #### H H #### [facility] [address] [place] [address] Dr. Bella Jerome CBC AUTO DIFFon 12-26-2022 BASO # 0.0 103/ul Normal 0.0-0.1 [facility] Comment on above: Performed By: #### C BC #### [facility] [address] [place] [address] Dr. Bella Jerome Basophils/100 WBC (Bld) 0.3 % Normal 0.2-2.0 [facility] Comment on above: Performed By: #### C BC #### [facility] [address] [place] [address] Dr. Bella Jerome EO # 0.1 103/ul Normal 0.0-0.7 [facility] Comment on above: Performed By: #### C BC #### [facility] [address] [place] [address] Dr. Bella Jerome Eosinophils/100 WBC (Bld) 1.6 % Normal 0.9-7.0 [facility] Comment on above: Performed By: #### C BC #### [facility] [address] [place] [address] Dr. Bella Jerome Erythrocyte distribution width (RBC) [Ratio] 12.7 % Normal 11.0-15.0 [facility] Comment on above: Performed By: #### C BC #### [facility] [address] [place] [address] Dr. Bella Jerome Hematocrit (Bld) [Volume fraction] 37.2 % Normal 36.0-48.0 [facility] Comment on above: Performed By: #### C BC #### [facility] [address] [place] [address] Dr. Bella Jerome Hemoglobin (Bld) [Mass/Vol] 12.5 g/dL Normal 12.0-16.0 [facility] Comment on above: Performed By: #### C BC #### [facility] [address] [place] [address] Dr. Bella Jerome IG # 0.02 10e3/ul Normal 0.00-0.03 [facility] Comment on above: Performed By: #### C BC #### [facility] [address] [place] [address] Dr. Bella Jerome IG % 0.3 % Normal 0.0-0.5 [facility] Comment on above: Performed By: #### C BC #### [facility] [address] [place] [address] Dr. Bella Jerome LYMPH # 2.3 103/ul Normal 1.2-3.8 [facility] Comment on above: Performed By: #### C BC #### [facility] [address] [place] [address] Dr. Bella Jerome Lymphocytes/100 WBC (Bld) 34.1 % Normal 20.5-60.0 [facility] Comment on above: Performed By: #### C BC #### [facility] [address] [place] [address] Dr. Bella Jerome MANUAL DIFF REQ NO Normal [facility] Comment on above: Performed By: #### C BC #### [facility] [address] [place] [address] Dr. Bella Jerome MCH (RBC) [Entitic mass] 30.9 pg Normal 26.7-34.0 [facility] Comment on above: Performed By: #### C BC #### [facility] [address] [place] [address] Dr. Bella Jerome MCHC (RBC) [Mass/Vol] 33.6 g/dL Normal 29.9-35.2 [facility] Comment on above: Performed By: #### C BC #### [facility] [address] [place] [address] Dr. Bella Jerome MCV (RBC) [Entitic vol] 91.9 fL Normal 81.0-99.0 [facility] Comment on above: Performed By: #### C BC #### [facility] [address] [place] [address] Dr. Bella Jerome MONO # 0.4 103/ul Normal 0.3-0.8 [facility] Comment on above: Performed By: #### C BC #### [facility] [address] [place] [address] Dr. Bella Jerome Monocytes/100 WBC (Bld) 5.1 % Normal 1.7-12.0 [facility] Comment on above: Performed By: #### C BC #### [facility] [address] [place] [address] Dr. Bella Jerome NEUT # 4.0 103/ul Normal 1.4-6.5 [facility] Comment on above: Performed By: #### C BC #### [facility] [address] [place] [address] Dr. Bella Jerome Neutrophils/100 WBC (Bld) 58.6 % Normal 43.0-75.0 [facility] Comment on above: Performed By: #### C BC #### [facility] [address] [address] [address] Bella Jerome Platelet mean volume (Bld) [Entitic vol] 11.5 fL Normal 9.5-13.5 [facility] Comment on above: Performed By: #### C BC #### [facility] [address] [address] [address] Bella Jerome PLT 243 103/ul Normal 150-450 [facility] Comment on above: Performed By: #### C BC #### [facility] [address] [address] [address] Bella Jerome RBC 4.05 106/ul Critically low 4.20-5.40 [facility] Comment on above: Performed By: #### C BC #### [facility] [address] [address] [address] Bella Jerome WBC 6.8 103/ul Normal 4.0-11.0 [facility] Comment on above: Performed By: #### C BC #### [facility] [address] [address] [address] Bella Jerome FREE T4on 12-26-2022 Free T4 [Mass/Vol] 1.05 ng/dL Normal 0.76-1.46 [facility] Comment on above: Performed By: #### F T4, VITAD, B12FOL, IRON ####[facility] [id number] [place], [place] [address]NbDr. Bella Jerome GLYCOHEMOGLOBIN A1Con 2022 ADA RECOMMENDATION SEE BELOW Normal [facility] Comment on above: Result Comment: ADA RECOMMENDED LIMIT 4.0 - 6.0 ADA THERAPEUTIC TARGET < 7.0 ACTION SUGGESTED > 7.0 Performed By: #### A 1C #### [facility] [address] [id number] Bella Jerome Glucose [Mass/Vol] 103 mg/dL Normal [facility] Comment on above: Performed By: #### A 1C #### [facility] [address] [address] [address] Bella Jerome HbA1c (Bld) [Mass fraction] 5.2 % Normal 4.5-6.2 [facility] Comment on above: Performed By: #### A 1C #### [facility] [address] [address] [address] Bella Jerome IRONon 12-26-2022 Iron [Mass/Vol] 74.0 ug/dL Normal 50.0-170.0 [facility] Comment on above: Performed By: #### F T4, VITAD, B12FOL, IRON ####[facility] [id number] [address]Dr[address] Bella Jerome LIPID PROFILEon 12-26-2022 CHOL-HDL RATIO NORM SEE BELOW Normal [facility] Comment on above: Result Comment: 3.3 - 4.4 LOW RISK 4.4 - 7.1 AVERAGE RISK 7.1 - 11.0 MODERATE RISK >11.0 HIGH RISK Performed By: #### C MP, TSH, LIPID #### [facility] [address] [address] [address] Bella Jerome Cholesterol [Mass/Vol] 153 mg/dL Normal <=200 [facility] Comment on above: Performed By: #### C MP, TSH, LIPID #### [facility] [address] [address] [address] Bella Jerome Cholesterol in HDL [Mass/Vol] 67 mg/dL Critically high 40-60 [facility] Comment on above: Performed By: #### C MP, TSH, LIPID #### [facility] [address] [address] [address] Bella Jerome Cholesterol in LDL [Mass/Vol] 77.2 mg/dL Normal [facility] Comment on above: Performed By: #### C MP, TSH, LIPID #### [facility] [address] [address] [address] Bella Jerome Cholesterol.total/Ch olesterol in HDL [Mass ratio] 2.3 {ratio} Normal [facility] Comment on above: Performed By: #### C MP, TSH, LIPID #### [facility] [address] [address] [address] Bella Jerome HDL NORMAL > or = 60 mg/dl - LOW CARDIOVASCULAR RISK <40 mg/dl - HIGH CARDIOVASCULAR RISK Normal [facility] Comment on above: Performed By: #### C MP, TSH, LIPID #### [facility] [address] [address] [address] Bella Jerome LDL CALC NORMAL SEE BELOW Normal [facility] Comment on above: Result Comment: <100 mg/dl OPTIMAL 100 - 129 mg/dl NEAR OR ABOVE OPTIMAL 130 - 159 mg/dl BORDERLINE HIGH 160 - 189 mg/dl HIGH >190 mg/dl VERY HIGH Performed By: #### C MP, TSH, LIPID #### [facility] [address] [address] [address] Bella Jerome Triglyceride [Mass/Vol] 44 mg/dL Normal <=150 [facility] Comment on above: Performed By: #### C MP, TSH, LIPID #### [facility] [address] [address] [address] Bella Jerome VLDL CALC 8.8 mg/dL Normal [facility] Comment on above: Performed By: #### C MP, TSH, LIPID #### [facility] [address] [address] [address] Bella Jerome MICROALB CREAT RATIO RANDOMo n 12-26-2022 mALB 2.3 mg/L Normal <=30.0 [facility] Comment on above: Performed By: #### H H #### [facility] [address] [address] [address] Bella Jerome MALB CR RATIO 17.4 mg/g Normal 0.0-29.9 [facility] Comment on above: Performed By: #### H H #### [facility] [address] [address] [address] Bella Jerome MALB CR RATIO RANGE SEE BELOW Normal [facility] Comment on above: Result Comment: NO M ICROALBUMINURIA 0-29 MG/G CLINICAL MICROALBUMINURIA 30-300 MG/G MACROALBUMINURIA >300 MG/G Performed By: #### H H #### [facility] [address] [address] [address] Bella Jerome URINE CREAT 131.90 mg/dL Normal 20.00-300.00 [facility] Comment on above: Performed By: #### H H #### [facility] [address] [address] [address] Bella Jerome PROF 14(COMP METB)on 023 Albumin [Mass/Vol] 4.1 g/dL Normal 3.4-5.0 [facility] Comment on above: Performed By: #### C MP, TSH, LIPID #### [facility] [address] [address] [address] Bella Jerome Albumin/Globulin [Mass ratio] 1.3 {ratio} Normal [facility] Comment on above: Performed By: #### C MP, TSH, LIPID #### [facility] [address] [address] [address] Bella Jerome ALP [Catalytic activity/Vol] 124 U/L Critically high 46-116 [facility] Comment on above: Performed By: #### C MP, TSH, LIPID #### [facility] [address] [address] [address] Bella Jerome ALT [Catalytic activity/Vol] 16 U/L Normal 14-59 [facility] Comment on above: Performed By: #### C MP, TSH, LIPID #### [facility] [address] [address] [address] Bella Jerome Anion gap [Moles/Vol] 13.4 mmol/L Normal [facility] Comment on above: Performed By: #### C MP, TSH, LIPID #### [facility] [address] [address] [address] Bella Jerome AST [Catalytic activity/Vol] 17 U/L Normal 15-37 [facility] Comment on above: Performed By: #### C MP, TSH, LIPID #### [facility] [address] [address] [address] Bella Jerome Bilirubin [Mass/Vol] 0.8 mg/dL Normal 0.2-1.0 [facility] Comment on above: Performed By: #### C MP, TSH, LIPID #### [facility] [address] [address] [address] Bella Jerome Calcium [Mass/Vol] 8.9 mg/dL Normal 8.5-10.1 [facility] Comment on above: Performed By: #### C MP, TSH, LIPID #### [facility] [address] [place] [address] Dr. Bella Jerome Chloride [Moles/Vol] 103 mmol/L Normal 98-107 [facility] Comment on above: Performed By: #### C MP, TSH, LIPID #### [facility] [address] [place] [address] Dr. Bella Jerome CO2 [Moles/Vol] 25.6 mmol/L Normal 21.0-32.0 [facility] Comment on above: Performed By: #### C MP, TSH, LIPID #### [facility] [address] [place] [address] Dr. Bella Jerome Creatinine [Mass/Vol] 0.55 mg/dL Normal 0.55-1.02 [facility] Comment on above: Performed By: #### C MP, TSH, LIPID #### [facility] [address] [place] [address] Dr. Bella Jerome EGFR-AF DUTCH >60 Normal >=60 [facility] Comment on above: Performed By: #### C MP, TSH, LIPID #### [facility] [address] [place] [address] Dr. Bella Jerome EGFR-NON AF DUTCH >60 Normal >=60 [facility] Comment on above: Performed By: #### C MP, TSH, LIPID #### [facility] [address] [place] [address] Dr. Bella Jerome Globulin (S) [Mass/Vol] 3.1 g/dL Normal [facility] Comment on above: Performed By: #### C MP, TSH, LIPID #### [facility] [address] [place] [address] Dr. Bella Jerome Glucose [Mass/Vol] 82 mg/dL Normal 74-106 [facility] Comment on above: Performed By: #### C MP, TSH, LIPID #### [facility] [address] [place] [address] Dr. Bella Jerome Potassium [Moles/Vol] 4.0 mmol/L Normal 3.5-5.1 [facility] Comment on above: Performed By: #### C MP, TSH, LIPID #### [facility] [address] [place] [address] Dr. Bella Jermoe Protein [Mass/Vol] 7.2 g/dL Normal 6.4-8.2 [facility] Comment on above: Performed By: #### C MP, TSH, LIPID #### [facility] [address] [place] [address] Dr. Bella Jerome Sodium [Moles/Vol] 138 mmol/L Normal 136-145 [facility] Comment on above: Performed By: #### C MP, TSH, LIPID #### [facility] [address] [place] [address] Dr. Bella Jerome Urea nitrogen [Mass/Vol] 14.0 mg/dL Normal 7.0-18.0 [facility] Comment on above: Performed By: #### C MP, TSH, LIPID #### [facility] [address] [place] [address] Dr. Bella Jerome Urea nitrogen/Creatinine [Mass ratio] 25.5 mg/mg Normal [facility] Comment on above: Performed By: #### C MP, TSH, LIPID #### [facility] [address] [place] [address] Dr. Bella Jerome TSHon 12-26-2022 TSH 0.224 uIU/mL Critically low 0.358-3.740 [facility] Comment on above: Performed By: #### C MP, TSH, LIPID #### [facility] [address] [place] [address] Dr. Bella Jerome VIT B12 AND FOLATEon 023 Cobalamin (Vitamin B12) [Mass/Vol] 702.0 pg/mL Normal 193.0-986.0 [facility] Comment on above: Performed By: #### F T4, VITAD, B12FOL, IRON ####[facility] [address] [place] [address]Dr. Bella Jerome FOLATE 25.10 ng/mL Normal 8.60-58.90 [facility] Comment on above: Performed By: #### F T4, VITAD, B12FOL, IRON ####[facility] [address] [place] [address]Dr. Bella Jerome VITAMIN D 25 OHon 12-26-2022 VIT D 25-OH 25.4 ng/mL Normal [facility] Comment on above: Performed By: #### F T4, VITAD, B12FOL, IRON ####[facility] [address] [place] [address]DrWill Jerome VIT D RANGES SEE BELOW [facility] Comment on above: Result Comment: <20 ng/mL Vit D deficient 20 - <30 ng/mL Vit D insufficient 30 - 100 ng/mL Vit D sufficient >100 ng/mL Potential Toxicity Performed By: #### F T4, VITAD, B12FOL, IRON ####[facility] [address] [place] [address]Dr. Bella Jerome PAP ACOG PANEL 2: 23 to 31on 12-18-2022 . . Normal [facility] Comment on above: Performed By: #### C BC #### [facility] [address] [address] [address] Bella Jerome Age Gdln ACOG Testing - Normal [facility] Comment on above: Performed By: #### C BC #### [facility] [address] [address] [address] Bella Jerome DIAGNOSIS: Comment Normal [facility] Comment on above: Result Comment: NEGA TIVE FOR INTRAEPITHELIAL LESION OR MALIGNANCY. Performed By: #### C BC #### [facility] [address] [address] [address] Bella Jerome Methodology: Comment Normal [facility] Comment on above: Result Comment: This liquid based ThinPrep(R) pap test was screened with the use of an image guided system. Performed By: #### C BC #### [facility] [address] [address] [address] Bella Jerome Note: Comment Normal [facility] [...] Performed By: #### C BC #### [facility] [address] [address] [address] Bella Jerome Performed by: Comment Normal [facility] Comment on above: Result Comment: Byron Irby, Pl Sql Programmer (ASCP) Performed By: #### C BC #### [facility] [address] [place] [address] Dr. Bella Jerome Reflex Criteria: Comment Normal [facility] Comment on above: Result Comment: The HPV DNA reflex criteria were not met with this specimen result therefore, no HPV testing was performed. . Performed By: #### C BC #### [facility] [address] [place] [address] Dr. Bella Jerome Specimen adequacy: Comment Normal [facility] Comment on above: Result Comment: Sati sfactory for evaluation. Endocervical and/or squamous metaplastic cells (endocervical component) are present. Performed By: #### C BC #### [facility] [address] [place] [address] Dr. Bella Jerome CBC W MANUAL DIFFon 09-07-20 22 ATYPICAL LYMPH # Normal [facility] Comment on above: Performed By: #### C BCMAN ####[facility] [address] [place] [address]Dr. Bella Jerome ATYPICAL LYMPH % Normal [facility] Comment on above: Performed By: #### C BCMAN ####[facility] [address] [place] [address]Dr. Bella Jerome BAND # 0.2 103/ul Normal 0.0-0.3 [facility] Comment on above: Performed By: #### C BCMAN ####[facility] [address] [place] [id number]. Bella Jerome BAND % 1 % Normal 0-5 [facility] Comment on above: Performed By: #### C PEDRO ####[facility] [address] [place] [id number]. Bella Jerome BASOM # 0.00 103/ul Normal 0.00-0.10 [facility] Comment on above: Performed By: #### C BCRELL ####[facility] [address] [place] [address]Dr. Bella Jerome BASOM % 0.0 % Critically low 0.2-2.0 [facility] Comment on above: Performed By: #### C PEDRO ####[facility] [address] [place] [address]Dr. Bella Jerome BLAST # Normal [facility] Comment on above: Performed By: #### C PEDRO ####[facility] [address] [place] [address]Dr. Bella Jerome BLAST % Normal [facility] Comment on above: Performed By: #### C PEDRO ####[facility] [address] [place], [place] [address]Dr. Bella Jerome CORRECTED WBC Normal 4.0-11.0 [facility] Comment on above: Performed By: #### C PEDRO ####[facility] [address] [place] [address]Dr. Bella Jerome EOS # 0.00 103/ul Normal 0.00-0.70 [facility] Comment on above: Performed By: #### C PEDRO ####[facility] [address] [place] [address]Dr. Bella Jerome EOS% 0.0 % Critically low 0.9-7.0 [facility] Comment on above: Performed By: #### C PEDRO ####[facility] [address] [place], [place] [address]Dr. Bella Jerome HCT 30.5 % Critically low 36.0-48.0 [facility] Comment on above: Performed By: #### C PEDRO ####[facility] [address] [place], [place] [address]Na. Bella Jerome HGB 10.5 g/dl Critically low 12.0-16.0 [facility] Comment on above: Performed By: #### C PEDRO ####[facility] [address] [place], [place] [address]Mx. Bella Jerome LYMPHM # 2.78 103/ul Normal 1.20-3.80 [facility] Comment on above: Performed By: #### C PEDRO ####[facility] [address] [place], [place] [address]Sr. Bella Jerome LYMPHM% 13.0 % Critically low 20.5-60.0 [facility] Comment on above: Performed By: #### C PEDRO ####[facility] [address] [place], [place] [address]Qc. Bella Jerome MCH 32.8 pg Normal 26.7-34.0 [facility] Comment on above: Performed By: #### C PEDRO ####[facility] [address] [place], [place] [address]Fe. Bella Jerome MCHC 34.4 g/dl Normal 29.9-35.2 [facility] Comment on above: Performed By: #### Jennifer VASQUEZ ####[facility] [address] [place], [place] [address]Ph. Bella Jerome MCV 95.3 fL Normal 81.0-99.0 [facility] Comment on above: Performed By: #### Jennifer VASQUEZ ####[facility] [address] [place], [place] [address]Xp. Bella Jerome METAMYELOCYTE # Normal [facility] Comment on above: Performed By: #### C PEDRO ####[facility] [address] [place], [place] [address]Ia. Bella Jerome METAMYELOCYTE % Normal [facility] Comment on above: Performed By: #### Jennifer VASQUEZ ####[facility] [address] [place], [place] [address]Sp. Bella Jerome MONOM# 2.35 103/ul Critically high 0.30-0.80 [facility] Comment on above: Performed By: #### C PEDRO ####[facility] [address] [place] [address]Dr. Bella Jerome MONOM% 11.0 % Normal 1.7-12.0 [facility] Comment on above: Performed By: #### C PEDRO ####[facility] [address] [place] [address]Dr. Bella Jerome MPV 11.1 fL Normal 9.5-13.5 [facility] Comment on above: Performed By: #### C PEDRO ####[facility] [address] [place] [address]Dr. Bella Jerome MYELOCYTE # Normal [facility] Comment on above: Performed By: #### C PEDRO ####[facility] [address] [place] [id number]. Bella Jerome MYELOCYTE % Normal [facility] Comment on above: Performed By: #### C PEDRO ####[facility] [address] [place] [phone]. Bella Jerome NRBC Normal [facility] Comment on above: Performed By: #### C PEDRO ####[facility] [address] [place] [phone]. Bella Jerome PLT 227 103/ul Normal 150-450 [facility] Comment on above: Performed By: #### C PEDRO ####[facility] [address] [place] [phone]. Bella Jerome RBC 3.20 106/ul Critically low 4.20-5.40 [facility] Comment on above: Performed By: #### C PEDRO ####[facility] [address] [place] [address]Dr. Bella Jerome RDW 12.8 % Normal 11.0-15.0 [facility] Comment on above: Performed By: #### C PEDRO ####[facility] [address] [place] [phone]. Bella Jerome SEG # 16.05 103/ul Critically high 1.40-6.50 [facility] Comment on above: Performed By: #### C BCRELL ####[facility] [address] [place] [address]Dr. Bella Jerome SEG % 75.0 % Normal 43.0-75.0 [facility] Comment on above: Performed By: #### C BCMAN ####[facility] [address] [place] [address]DrWill Jerome WBC 21.4 103/ul Critically high 4.0-11.0 [facility] Comment on above: Performed By: #### C PEDRO ####[facility] [address] [place] [address]DrWill Jerome CBC AUTO DIFFon 09-05-2022 BASO # 0.0 103/ul Normal 0.0-0.1 [facility] Comment on above: Performed By: #### C BC #### [facility] [address] [address] [address] Bella Jerome Basophils/100 WBC (Bld) 0.2 % Normal 0.2-2.0 [facility] Comment on above: Performed By: #### C BC #### [facility] [address] [address] [address] Bella Jerome EO # 0.1 103/ul Normal 0.0-0.7 [facility] Comment on above: Performed By: #### C BC #### [facility] [address] [address] [address] Bella Jerome Eosinophils/100 WBC (Bld) 0.6 % Critically low 0.9-7.0 [facility] Comment on above: Performed By: #### C BC #### [facility] [address] [address] [address] Bella Jerome Erythrocyte distribution width (RBC) [Ratio] 12.6 % Normal 11.0-15.0 [facility] Comment on above: Performed By: #### C BC #### [facility] [address] [place] [address] Dr. Bella Jerome Hematocrit (Bld) [Volume fraction] 32.5 % Critically low 36.0-48.0 [facility] Comment on above: Performed By: #### C BC #### [facility] [address] [place] [address] Dr. Bella Jerome Hemoglobin (Bld) [Mass/Vol] 11.1 g/dL Critically low 12.0-16.0 [facility] Comment on above: Performed By: #### C BC #### [facility] [address] [place] [address] Dr. Bella Jerome IG # 0.14 10e3/ul Critically high 0.00-0.03 [facility] Comment on above: Performed By: #### C BC #### [facility] [address] [place] [address] Dr. Bella Jerome IG % 1.1 % Critically high 0.0-0.5 [facility] Comment on above: Performed By: #### C BC #### [facility] [address] [place] [address] Dr. Bella Jerome LYMPH # 2.6 103/ul Normal 1.2-3.8 [facility] Comment on above: Performed By: #### C BC #### [facility] [address] [place] [address] Dr. Bella Jerome Lymphocytes/100 WBC (Bld) 20.2 % Critically low 20.5-60.0 [facility] Comment on above: Performed By: #### C BC #### [facility] [address] [place] [address] Dr. Bella Jerome MANUAL DIFF REQ NO Normal [facility] Comment on above: Performed By: #### C BC #### [facility] [address] [place] [address] Dr. Bella Jerome MCH (RBC) [Entitic mass] 32.2 pg Normal 26.7-34.0 [facility] Comment on above: Performed By: #### C BC #### [facility] [address] [place] [address] Dr. Bella Jerome MCHC (RBC) [Mass/Vol] 34.2 g/dL Normal 29.9-35.2 [facility] Comment on above: Performed By: #### C BC #### [facility] [address] [place] [address] Dr. Bella Jerome MCV (RBC) [Entitic vol] 94.2 fL Normal 81.0-99.0 [facility] Comment on above: Performed By: #### C BC #### [facility] [address] [place] [address] Dr. Bella Jerome MONO # 0.9 103/ul Critically high 0.3-0.8 [facility] Comment on above: Performed By: #### C BC #### [facility] [address] [place] [address] Dr. Bella Jerome Monocytes/100 WBC (Bld) 7.1 % Normal 1.7-12.0 [facility] Comment on above: Performed By: #### C BC #### [facility] [address] [place] [address] Dr. Bella Jerome NEUT # 8.9 103/ul Critically high 1.4-6.5 [facility] Comment on above: Performed By: #### C BC #### [facility] [address] [place] [address] Dr. Bella Jerome Neutrophils/100 WBC (Bld) 70.8 % Normal 43.0-75.0 [facility] Comment on above: Performed By: #### C BC #### [facility] [address] [place] [address] Dr. Bella Jerome Platelet mean volume (Bld) [Entitic vol] 11.0 fL Normal 9.5-13.5 [facility] Comment on above: Performed By: #### C BC #### [facility] [address] [place] [address] Dr. Bella Jerome PLT 234 103/ul Normal 150-450 [facility] Comment on above: Performed By: #### C BC #### [facility] [address] [place] [address] Dr. Bella Jerome RBC 3.45 106/ul Critically low 4.20-5.40 [facility] Comment on above: Performed By: #### C BC #### [facility] [address] [place], [place] [address] Dr. Bella Jerome WBC 12.6 103/ul Critically high 4.0-11.0 [facility] Comment on above: Performed By: #### C BC #### [facility] [address] [place], [place] [address] Dr. Bella Jerome Covid-19 PCR (CVDTB)on SARS-CoV-2 (COVID-19) RNA FAVIAN+probe Ql (Unsp spec) Not detected Normal NOT DETECTED [facility] Comment on above: Result Comment: When diagnostic [...] for this test is supported by the [place] of [employer] and Human Service's declaration that [...] used). Performed By: #### C VDTBH ####[facility] [address] [place], [place] [address]Bw. Bella Jerome DRUG SCREEN RAPID (URINE)on 09-05-2022 AMP Negative Normal NEGATIVE [facility] Comment on above: Performed By: #### D RUGRPD ####[facility] [address] [place], [place] [address]FeWill Jerome BAR Negative Normal NEGATIVE [facility] Comment on above: Performed By: #### D RUGRPD ####[facility] [address] [place], [place] [address]Dr. Bella Jerome BUP Negative Normal NEGATIVE [facility] Comment on above: Performed By: #### D RUGRPD ####[facility] [address] [place], [place] [address]Dr. Liwally Jerome BZO Negative Normal NEGATIVE [facility] Comment on above: Performed By: #### D RUGRPD ####[facility] [address] [place], [place] [address]Dr. Liwally Jerome NGA Negative Normal NEGATIVE [facility] Comment on above: Performed By: #### D RUGRPD ####[facility] [address] [place], [place] [address]Dr. Bella Jerome CUT-OFFS SEE BELOW Normal [facility] [...] ng/mL Performed By: #### D RUGRPD ####[facility] [address] [place], [place] [address]Dr. Bella Jerome DRUG CUT HEADER DRUG CLASS TEST SYSTEM CUT-OFF CONCENTRATIONS ARE FOLLOWS: Normal [facility] Comment on above: Performed By: #### D RUGRPD ####[facility] [address] [place], [place] [address]Dr. Bella Jerome mAMP Negative Normal NEGATIVE [facility] Comment on above: Performed By: #### D RUGRPD ####[facility] [address] [place], [place] [address]Dr. Bella Jerome MTD Negative Normal NEGATIVE [facility] Comment on above: Performed By: #### D RUGRPD ####[facility] [address] [place] [id number]. Bella Jerome OPI Negative Normal NEGATIVE [facility] Comment on above: Performed By: #### D RUGRPD ####[facility] [address] [place] [id number]. Yiwally Jerome OXY Negative Normal NEGATIVE [facility] Comment on above: Performed By: #### D RUGRPD ####[facility] [address] [place] [address]Dr. Yiwally Jerome PCP Negative Normal NEGATIVE [facility] Comment on above: Performed By: #### D RUGRPD ####[facility] [address] [place] [address]Dr. Bella Jerome PPX Negative Normal NEGATIVE [facility] Comment on above: Performed By: #### D RUGRPD ####[facility] [address] [place] [address]Dr. Yiwally Jerome TCA Negative Normal NEGATIVE [facility] Comment on above: Performed By: #### D RUGRPD ####[facility] [address] [place] [address]Dr. Bella Jerome THC Negative Normal NEGATIVE [facility] Comment on above: Performed By: #### D RUGRPD ####[facility] [address] [place], [place] [address]Dr. Bella Jerome TYPE AND SCREENon 09-05-2022 TYPE AND SCREEN Negative Normal [facility] Comment on above: Performed By: #### T NS ####[facility] [address] [place], [place] [address]Dr. Bella Jerome US PREG BIOPHY W NON [...] Free T4 [Mass/Vol] 0.90 ng/dL Normal 0.76-1.46 [facility] Comment on above: Performed By: #### C BC #### [facility] [address] [place], [place] [address] Dr. Bella Jerome TSHon 08-21-2022 TSH 1.033 uIU/mL Normal 0.358-3.740 [facility] Comment on above: Performed By: #### H H #### [facility] [address] [place] [address] [address] Bella Jerome US PREG BIOPHY W [...] MANUELITO GREGG Date: 2022-08-17 18:33 Normal [facility] GROUP B STREP CULTUREon 07-28 S. agalactiae Ag Ql (Unsp spec) Culture Observations: NEGATIVE FOR GROUP B STREPTOCOCCUS. Normal [facility] Comment on above: Performed By: #### G BSCX ####[facility] [address] [place] [address]Dr. Bella Jerome US PREG BIOPHY W NON [...] by: MANUELITO GREGG Date: 2022-08-10 16:36 Normal [facility] PREG GROWTHon 08-10-2022 US PREG GROWTH EXAMINATION: [...] by: MANUELITO GREGG Date: 2022-08-10 16:37 Normal [facility] PREG GROWTHon 07-25-2022 US PREG GROWTH EXAMINATION: [...] MANUELITO GREGG Date: 2022-07-25 18:18 Normal [facility] FREE T4on 07-24-2022 Free T4 [Mass/Vol] 0.98 ng/dL Normal 0.76-1.46 [facility] Comment on above: Performed By: #### F T4 #### [facility] [address] [place] [address] [address] Bella Jerome TSHon 07-24-2022 TSH 1.196 uIU/mL Normal 0.358-3.740 [facility] Comment on above: Performed By: #### T SH ####[facility] [address] [place] [address]Dr. Bella Jerome UA (CLEAN/CATCH) SCALLOPER/MICRO I F IND.on 07-20-2022 Bilirubin Ql (U) Negative Normal NEGATIVE [facility] Comment on above: Performed By: #### H H #### [facility] [address] [place] [address] Dr. Bella Jerome Clarity (U) CLEAR Normal CLEAR [facility] Comment on above: Performed By: #### H H #### [facility] [address] [place] [address] Dr. Bella Jerome Color (U) LT. YELLOW Normal YELLOW [facility] Comment on above: Performed By: #### H H #### [facility] [address] [place] [address] [address] Bella Jerome Glucose Ql (U) Negative Normal NEGATIVE [facility] Comment on above: Performed By: #### H H #### [facility] [address] [place] [address] [address] Bella Jerome Hemoglobin Ql (U) Negative Normal NEGATIVE [facility] Comment on above: Performed By: #### H H #### [facility] [address] [place] [address] Dr. Bella Jerome Ketones Ql (U) Negative Normal NEGATIVE [facility] Comment on above: Performed By: #### H H #### [facility] [address] [place] [address] [address] Bella Jerome LEUKOCYTES Negative Normal NEGATIVE [facility] Comment on above: Performed By: #### H H #### [facility] [address] [place] [address] Dr. Bella Jerome Nitrite Ql (U) Negative Normal NEGATIVE [facility] Comment on above: Performed By: #### H H #### [facility] [address] [place] [address] [address] Bella Jerome pH (U) 7.0 [pH] Normal 5-9 [facility] Comment on above: Performed By: #### H H #### [facility] [address] [place] [address] Dr. Bella Jerome SPEC GRAVITY <=1.005 Abnormal 1.005-<=1.025 [facility] Comment on above: Performed By: #### H H #### [facility] [address] [place] [address] Dr. Bella Jerome UA PROTEIN Negative Normal NEGATIVE/ TRACE [facility] Comment on above: Performed By: #### H H #### [facility] [address] [place] [address] Dr. Bella Jerome UR MICRO IND NOT INDICATED Normal [facility] Comment on above: Performed By: #### H H #### [facility] [address] [place] [address] Dr. Bella Jerome Urobilinogen Qn (U) 0.2 {Kimberlee'U}/dL Normal 0.2 - 1. 0 [facility] Comment on above: Performed By: #### H H #### [facility] [address] [place] [address] Dr. Bella Jerome US PREG GROWTHon 06-27-2022 [...] Free T4 [Mass/Vol] 0.82 ng/dL Normal 0.76-1.46 [facility] Comment on above: Performed By: #### H H #### [facility] [address] [place] [address] Dr. Bella Jerome GLUCOSE - 1HRon 06-20-2022 Glucose [Mass/Vol] 127 mg/dL Critically high 74-106 [facility] Comment on above: Performed By: #### H H #### [facility] [address] [place] [address] [address] Bella Jerome HEMOGRAM AND PLATELon 2021 Hematocrit (Bld) [Volume fraction] 32.4 % Critically low 36.0-48.0 [facility] Comment on above: Performed By: #### H H #### [facility] [address] [place] [address] [address] Bella Jerome Hemoglobin (Bld) [Mass/Vol] 10.9 g/dL Critically low 12.0-16.0 [facility] Comment on above: Performed By: #### H H #### [facility] [address] [place] [address] Dr. Bella Jerome MCH (RBC) [Entitic mass] 32.9 pg Normal 26.7-34.0 [facility] Comment on above: Performed By: #### H H #### [facility] [address] [place] [address] Dr. Bella Jerome MCHC (RBC) [Mass/Vol] 33.6 g/dL Normal 29.9-35.2 [facility] [facility] Comment on above: Performed By: #### H H #### [facility] [address] [place] [address] Dr. Bella Jerome MCV (RBC) [Entitic vol] 97.9 fL Normal 81.0-99.0 [facility] Comment on above: Performed By: #### H H #### [facility] [address] [address] [address] Bella Jerome PLT 241 103/ul Normal 150-450 [facility] Comment on above: Performed By: #### H H #### [facility] [address] [place] [address] Dr. Bella Jerome RBC 3.31 106/ul Critically low 4.20-5.40 [facility] Comment on above: Performed By: #### H H #### [facility] [address] [address] [address] Bella Jerome WBC 11.3 103/ul Critically high 4.0-11.0 [facility] Comment on above: Performed By: #### H H #### [facility] [address] [place] [address] Dr. Bella Jerome TSHon 06-20-2022 TSH 3.044 uIU/mL Normal 0.358-3.740 [facility] Comment on above: Performed By: #### C BC #### [facility] [address] [place] [address] Dr. Bella Jerome US PREG INCOMPLETE ANATOMYon 05-24-2022 US PREG INCOMPLETE ANATOMY EXAMINATION: US PREG INCOMPLETE ANATOMY HISTORY: screening COMPARISON: Ultrasound anatomy 04/26/2022 FINDINGS: Presentation: Cephalic Heart rate: 154 bpm Anatomy: Cervical, thoracic, and lumbar spine HERNANDO: 09/13/2022 IMPRESSION: 1. Adequate visualization of the cervical, thoracic, and lumbar spine; no appreciable abnormality. Electronically authenticated by: RAGINI SANTOS Date: 2022-05-24 17:33 Normal [facility] US PREG ANATOMY SINGLEon 06- 30-2022 US [...] GREGG Date: 2022-04-26 16:54 Normal [facility] CHLAMYDIA/GONOCOCCUS FAVIAN (SW AB/URINE/PAPon 04-19-2022 Chlamydia trachomatis, FAVIAN Negative Normal Negative [facility] Comment on above: Performed By: #### C T/NGNA ####[facility] [id number] [address]DrWill Jerome Neisseria gonorrhoeae, FAVIAN Negative Normal Negative [facility] Comment on above: Performed By: #### C T/NGNA ####[facility] [id number] [address]Dr. Bella Jerome VAGINITIS/VAGINOSIS DNA PROB Leonid 04-18-2022 Jessica species Negative Normal Negative [facility] Comment on above: Performed By: #### H H #### [facility] [address] [place] [address] Dr. Bella Jerome Gardnerella vaginalis Negative Normal Negative [facility] Comment on above: Performed By: #### H H #### [facility] [address] [address] [address] Bella Jerome Trichomonas vaginalis Negative Normal Negative [facility] Comment on above: Performed By: #### H H #### [facility] [address] [address] [address] Bella Jerome FREE T4on 04-05-2022 Free T4 [Mass/Vol] 0.88 ng/dL Normal 0.76-1.46 [facility] Comment on above: Performed By: #### F T4 #### [facility] [address] [place] [address] Dr. Bella Jerome TSHon 04-05-2022 TSH 1.786 uIU/mL Normal 0.358-3.740 [facility] Comment on above: Performed By: #### T SH ####[facility] [id number] [address]Dr. Bella Jerome TSH RANGE SEE BELOW Normal [facility] Comment on above: Result Comment: <0.3 4 UIU/ml HYPERTHYROID 0.34-5.60 UIU/ml EUTHYROID >5.60 UIU/ml HYPOTHYROID Performed By: #### T SH ####[facility] [id number] [address]Dr. Bella Jerome FREE T4on 02-26-2022 Free T4 [Mass/Vol] 1.06 ng/dL Normal 0.76-1.46 [facility] Comment on above: Performed By: #### C BC #### [facility] [address] [place] [address] Dr. Bella Jerome TSHon 02-26-2022 TSH 2.024 uIU/mL Normal 0.470-4.680 [facility] Comment on above: Performed By: #### C BC #### [facility] [address] [place], [place] [address] Dr. Bella Jerome TSH RANGE SEE BELOW Normal [facility] Comment on above: Result Comment: <0.3 4 UIU/ml HYPERTHYROID 0.34-5.60 UIU/ml EUTHYROID >5.60 UIU/ml HYPOTHYROID Performed By: #### C BC #### [facility] [address] [place], [place] [address] Dr. Bella Jerome Vital Signs Date Time Vital Sign Value Performing Clinician Facility 08-18-2024 13:50-0400 Body mass index (BMI) [Ratio] 43.54 kg/m2 Agus Marquita DO Work Phone: [facility] 08-18-2024 13:50-0400 Body weight 111.49 kg Agus Marquita DO Work Phone: [facility] 08-18-2024 13:50-0400 Diastolic blood pressure 74 mm[Hg] Agus Marquita DO Work Phone: [facility] 08-18-2024 13:50-0400 Systolic blood pressure 118 mm[Hg] Agus Marquita DO Work Phone: [facility] 08-04-2024 13:30-0400 Body mass index (BMI) [Ratio] 44.37 kg/m2 Marylou CARBAJAL Work Phone: [facility] 08-04-2024 13:30-0400 Body weight 113.63 kg Marylou CARBAJAL Work Phone: [facility] 08-04-2024 13:30-0400 Diastolic blood pressure 78 mm[Hg] Marylou CARBAJAL Work Phone: [facility] 08-04-2024 13:30-0400 Systolic blood pressure 128 mm[Hg] Marylou CARBAJAL Work Phone: [facility] 02-13-2024 11:24-0400 Body height 160.02 cm [facility] 02-13-2024 11:24-0400 Body mass index (BMI) [Ratio] 42.3 kg/m2 [facility] 02-13-2024 11:24-0400 Body weight 108.49 kg [facility] 02-13-2024 11:24-0400 Diastolic blood pressure 70 mm[Hg] [facility] 02-13-2024 11:24-0400 Heart rate 69 /min [facility] 02-13-2024 11:24-0400 Respiratory rate 18 /min [facility] 02-13-2024 11:24-0400 SaO2% (BldA) [Mass fraction] 98 % [facility] 02-13-2024 11:24-0400 Systolic blood pressure 118 mm[Hg] [facility] 10-31-2023 15:00-0500 Body height 160.02 cm Sandra Austin Other [facility] [employer] Other 10-31-2023 15:00-0500 Body mass index (BMI) [Ratio] 45.41 kg/m2 Sandra Austin Other [facility] [employer] Other 10-31-2023 15:00-0500 Body temperature 98.5 [degF] Sandra Austin Other [facility] [employer] Other 10-31-2023 15:00-0500 Body weight 116.3 kg Sandra Austin Other [facility] [employer] Other 10-31-2023 15:00-0500 Diastolic blood pressure 80 mm[Hg] Sandra Austin Other [facility] [employer] Other 10-31-2023 15:00-0500 Respiratory rate 18 /min Sandra Austin Other [facility] [employer] Other 10-31-2023 15:00-0500 SaO2% (BldA) [Mass fraction] 98 % Sandra Austin Other [facility] Other 10-31-2023 15:00-0500 Systolic blood pressure 128 mm[Hg] Sandra Austin Other [facility] Other 06-24-2023 14:30-0400 Body height 160.02 cm Sandra Austin Other [facility] Other 06-24-2023 14:30-0400 Body mass index (BMI) [Ratio] 44.87 kg/m2 Sandra Austin Other [facility] Other 06-24-2023 14:30-0400 Body weight 114.9 kg Sandra Austin Other [facility] Other 06-24-2023 14:30-0400 Diastolic blood pressure 60 mm[Hg] Sandra Austin Other [facility] Other 06-24-2023 14:30-0400 Respiratory rate 18 /min Sandra Austin Other [facility] Other 06-24-2023 14:30-0400 SaO2% (BldA) [Mass fraction] 99 % Sandra Austin Other [facility] Other 06-24-2023 14:30-0400 Systolic blood pressure 110 mm[Hg] Sandra Austin Other [facility] Other 04-15-2023 09:25-0400 Body height 160.02 cm Ramonita Greenberg Other [facility] Other 04-15-2023 09:25-0400 Body mass index (BMI) [Ratio] 41.8 kg/m2 Ramonita Greenberg Other [facility] Other 04-15-2023 09:25-0400 Body temperature 98.5 [degF] Ramonita Greenberg Other [facility] Other 04-15-2023 09:25-0400 Body weight 107.05 kg Ramonita Greenberg Other [facility] Other 04-15-2023 09:25-0400 Respiratory rate 18 /min Ramonita Greenberg Other [facility] Other 04-15-2023 09:25-0400 SaO2% (BldA) [Mass fraction] 97 % Ramonita Greenberg Other [facility] Other 02-21-2023 14:45-0400 Body height 160.02 cm Sandra Austin Other [facility] Other 02-21-2023 14:45-0400 Body mass index (BMI) [Ratio] 41.39 kg/m2 Sandra Austin Other [facility] Other 02-21-2023 14:45-0400 Body weight 106.01 kg Sandra Austin Other [facility] Other 02-21-2023 14:45-0400 Diastolic blood pressure 60 mm[Hg] Sandra Austin Other [facility] Other 02-21-2023 14:45-0400 Respiratory rate 18 /min Sandra Austin Other [facility] Other 02-21-2023 14:45-0400 SaO2% (BldA) [Mass fraction] 98 % Sandra Austin Other [facility] Other 02-21-2023 14:45-0400 Systolic blood pressure 110 mm[Hg] Sandra Austin Other [facility] Other 12-24-2022 14:30-0500 Body height 160.02 cm Sandra Austin Other [facility] Other 12-24-2022 14:30-0500 Body mass index (BMI) [Ratio] 40.83 kg/m2 Sandra Austin Other [facility] Other 12-24-2022 14:30-0500 Body weight 104.55 kg Sandra Austin Other [facility] Other 12-24-2022 14:30-0500 Diastolic blood pressure 70 mm[Hg] Sandra Austin Other [facility] Other 12-24-2022 14:30-0500 Respiratory rate 18 /min Sandra Austin Other [facility] Other 12-24-2022 14:30-0500 SaO2% (BldA) [Mass fraction] 99 % Sandra Austin Other [facility] Other 12-24-2022 14:30-0500 Systolic blood pressure 118 mm[Hg] Sandra Austin Other [facility] Other 12-21-2021 16:30-0500 Body height 160.02 cm Sandra Austin Other [facility] Other 12-21-2021 16:30-0500 Body mass index (BMI) [Ratio] 38.58 kg/m2 Sandra Austin Other [facility] Other 12-21-2021 16:30-0500 Body temperature 97.3 [degF] Sandra Austin Other [facility] Other 12-21-2021 16:30-0500 Body weight 98.79 kg Sandra Austin Other [facility] Other 12-21-2021 16:30-0500 Diastolic blood pressure 60 mm[Hg] Sandra Austin Other [facility] Other 12-21-2021 16:30-0500 Respiratory rate 18 /min Sandra Austin Other [facility] Other 12-21-2021 16:30-0500 SaO2% (BldA) [Mass fraction] 99 % Sandra Austin Other [facility] Other 12-21-2021 16:30-0500 Systolic blood pressure 118 mm[Hg] Sandra Austin Other [facility] Other Encounters Encounter Date Encounter Type Care Provider Facility Start: 08-18-2024 End: 08-18-2024 Bamboo flowsheet Agus Marquita DO Work Phone: [facility] Start: 08-18-2024 End: 08-18-2024 Bamboo flowsheet Agus Marquita DO Work Phone: [facility] Start: 08-18-2024 End: 08-18-2024 flow sheet Agus Marquita DO Work Phone: [facility] Comment on above: 34 weeks gestation o f ; Nausea and vomiting, unspecified vomiting type; Gastroesophageal reflux disease, unspecified whether esophagitis present; Heartburn during in third trimester Start: 08-04-2024 End: 08-04-2024 Bamboo flowsheet Marylou CARBAJAL Work Phone: [facility] Start: 08-04-2024 End: 08-04-2024 Bamboo flowsheet Marylou CARBAJAL Work Phone: [facility] Start: 08-04-2024 End: 08-04-2024 ambulatory MARYLOU PRIEST Not Available Start: 08-04-2024 End: 08-04-2024 flow sheet Marylou CARBAJAL Work Phone: [facility] Comment on above: 32 weeks gestation o f ; Third trimester ; Anxiety, generalized ([facility] Start: 07-21-2024 End: 07-21-2024 ambulatory AGUS MARQUITA [...] Not Available Start: 02-13-2024 End: 02-13-2024 ambulatory [facility] Work Phone: Start: 02-13-2024 End: 02-13-2024 Patient encounter procedure [facility] Physician [facility] [place] Work Phone: Start: 12-16-2023 Non-patient / Non-visit [facility] Physician [facility] Work Phone: Start: 12-16-2023 End: 12-16-2023 ambulatory AGUS JUÁREZ Not Available Start: 10-31-2023 End: 10-31-2023 ambulatory Sandra Geovanna Other [facility] Other Start: 10-31-2023 Office outpatient vi sit 25 minutes Sandra Austin [facility] Start: 07-19-2023 End: 07-19-2023 ambulatory Sandra Geovanna Other [facility] Other Start: 07-19-2023 Telephone encounter Sandra Guevara [facility] [place] Start: 06-24-2023 End: 06-24-2023 ambulatory Sandra Geovanna Other [facility] Other Start: 06-24-2023 Office outpatient vi sit 25 minutes Sandra Austin [facility] [place] Start: 06-04-2023 End: 06-04-2023 ambulatory Sandra Geovanna Other [facility] Other Start: 06-04-2023 Telephone encounter Sandra Guevara [facility] Start: 04-15-2023 End: 04-15-2023 ambulatory Ramonita Greenberg Other [facility] Other Start: 04-15-2023 Office outpatient vi sit 15 minutes Ramonita Greenberg [facility] [place] Start: 04-11-2023 End: 04-11-2023 ambulatory Sandra Austin Other [facility] Other Start: 04-11-2023 Telephone encounter Sandra Austin [facility] Start: 02-21-2023 Office outpatient vi sit 25 minutes Sandra Austin [facility] [place] Start: 02-21-2023 End: 02-22-2023 ambulatory SANDRA AUSTIN [employer] Other Start: 01-04-2023 End: 01-04-2023 ambulatory Sandra Austin Other [facility] Other Start: 01-04-2023 Telephone encounter Sandra Guevara [facility] Start: 12-30-2022 Encounter for genera l adult medical examination without abnormal findings SANDRA AUSTIN [facility] Start: 12-27-2022 End: 12-27-2022 ambulatory Sandra Austin Other [facility] Other Start: 12-27-2022 Telephone encounter Sandra Guevara [facility] Start: 12-26-2022 End: 12-27-2022 ambulatory SANDRA AUSTIN Facility:[facility] Start: 12-26-2022 End: 12-27-2022 Encounter for general adult medical examination without abnormal findings SANDRA AUSTIN Facility:[facility] Start: 12-24-2022 End: 12-24-2022 ambulatory Sandra Austin Other [facility] Other Start: 12-24-2022 Encounter for genera l adult medical examination without abnormal findings Sandra Austin [facility] Start: 12-24-2022 Periodic preventive med est patient 18-39 yrs Sandra Austin [facility] Start: 12-10-2022 End: 12-10-2022 ambulatory [...] 12-21-2021 End: 12-21-2021 ambulatory Sandra Kaple Other [facility] Other Start: 12-21-2021 Office outpatient ne w 45 minutes Sandra Austin [facility] [place] Procedures Date Procedure Procedure Detail Performing Clinician [...] EST Office Visit [facility] [address] [place] [id number] Agus Juárez, DO [address] [place] [address] [facility] Start: 09-01-2024 End: 09-01-2024 Patient encounter procedure 09/01/2024 1:30 PM EST Routine [facility] [address] [place] [id number] Agus Juárez, DO [address] [place] [address] [facility] Start: 08-18-2024 End: 08-18-2024 Patient encounter procedure 08/18/2024 1:30 PM EDT Routine [facility] [address] [place] [id number] Agus Juárez, DO [address] [place], [place] [id number] [facility] Start: 08-18-2024 End: 08-18-2024 Professional / ancillary services management 08/18/2024 1:00 PM EDT Ancillary Procedure [facility] [address] [place] [address] [facility] Patient Education Low back pain in adults [facility] Work Phone: Immunizations Immunization Date Immunization Notes Care Provider Fa cility 09-08-2022 diphtheria, tetanus toxoids and pertussis vaccine Marylou CARBAJAL Work Phone: [facility] 09-12-2021 pneumococcal conjuga te vaccine, 13 valent Marylou CARBAJAL Work Phone: [facility] 08-14-1999 diphtheria, tetanus toxoids and acellular pertussis vaccine, unspecified formulation Marylou CARBAJAL Work Phone: [facility] 08-14-1999 haemophilus influenz ae type b vaccine, HbOC conjugate Marylou CARBAJAL Work Phone: [facility] 08-14-1999 measles, mumps and rubella virus vaccine Marylou CARBAJAL Work Phone: [facility] 08-14-1999 trivalent poliovirus vaccine, live, oral Marylou CARBAJAL Work Phone: [facility] 04-27-1998 diphtheria, tetanus toxoids and acellular pertussis vaccine, unspecified formulation Marylou CARBAJAL Work Phone: [facility] 04-27-1998 haemophilus influenz ae type b conjugate and Hepatitis B vaccine Marylou CARBAJAL Work Phone: [facility] 1997 diphtheria, tetanus toxoids and acellular pertussis vaccine, unspecified formulation Marylou CARBAJAL Work Phone: [facility] 1997 haemophilus influenz ae type b vaccine, HbOC conjugate Marylou CARBAJAL Work Phone: [facility] 1997 poliovirus vaccine, inactivated Marylou CARBAJAL Work Phone: [facility] 1997 diphtheria, tetanus toxoids and acellular pertussis vaccine, unspecified formulation Marylou CARBAJAL Work Phone: [facility] 1997 haemophilus influenz ae type b conjugate and Hepatitis B vaccine Marylou CARBAJAL Work Phone: [facility] 1997 poliovirus vaccine, inactivated Marylou CARBAJAL Work Phone: [facility] 1997 hepatitis B vaccine, pediatric or pediatric/adolescent dosage Marylou CARBAJAL Work Phone: [facility] Healthcare Payers Date Payer Category Payer Private Health Insurance [employer] [id number] 2023 Unknown [employer] [id number] 2023-Present [address] [place] [address] [id number] 2023 Unknown [id number] 2.16.840.1.154009.19 1997 Unknown [id number] 2.16.840.1.767240.3.579.2. 593 1997 Unknown [id number] 2.16.840.1.077494.3.579.2. 593 1997 Unknown [id number] 2.16.840.1.003201.3.579.2. 593 1997 Unknown [id number] 2.16.840.1.769484.3.579.2. 593 1997 Unknown [id number] 2.16.840.1.240167.3.579.2. 593 1997 Unknown [id number] 2.16.840.1.455049.3.579.2. 593 1997 Unknown [id number] 2.16.840.1.616646.3.579.2. 593 1997 Unknown [id number] 2.16.840.1.756550.3.579.2. 593 1997 Unknown [id number] 2.16.840.1.341289.3.579.2. 593 1997 Unknown [id number] 2.16.840.1.216701.3.579.2. 593 1997 Unknown [id number] 2.16.840.1.473742.3.579.2. 593 1997 Unknown [id number] 2.16.840.1.147967.3.579.2. 593 1997 Unknown [id number] 2.16.840.1.496458.3.579.2. 593 1997 Unknown [id number] 2.16.840.1.425047.3.579.2. 593 1997 Unknown [id number] 2.16.840.1.857257.3.579.2. 593 1997 Unknown [id number] 2.16.840.1.691988.3.579.2. 593 1997 Unknown [id number] 2.16.840.1.308734.3.579.2. 593 1997 Unknown [id number] 2.16.840.1.470725.3.579.2. 593 1997 Unknown [id number] 2.16.840.1.986799.3.579.2. 593 1997 Unknown [id number] 2.16.840.1.445438.3.579.2. 593 1997 Unknown [id number] 2.16.840.1.263076.3.579.2. 593 1997 Unknown [id number] 2.16.840.1.522226.3.579.2. 593 1997 Unknown [id number] 2.16.840.1.327454.3.579.2. 593 1997 Unknown [id number] 2.16.840.1.974787.3.579.2. 1259 1997 Unknown [id number] 2.16.840.1.569259.3.579.2. 9 1997 Unknown [id number] 2.16.840.1.756554.3.579.2. 9 1997 Unknown [id number] 2.16.840.1.706887.3.579.2. 1259 1997 Unknown [id number] 2.16.840.1.971366.3.579.2. 9 1997 Unknown [id number] 2.16.840.1.808606.3.579.2. 9 1997 Unknown [id number] 2.16.840.1.617468.3.579.2. 1258 1997 Unknown [id number] 2.16.840.1.094053.3.579.2. 9 1997 Unknown [id number] 2.16.840.1.395489.3.579.2. 1259 1957 Medicaid [id number] 2.16.840.1.810631.19 1957 Private Health Insurance [id number] 2.16.840.1.164488.19 Self-pay Self Pay [id number] Unknown [employer] [id number] Social History Date Type Detail Facility Start: 08-02-2023 End: 11-25-2023 Sex Assigned At [facility] [employer] Other Start: 1995 Sex Assigned At Female F [facility] Start: 08-02-2023 Tobacco smoking stat us NHIS Never smoked tobacco [facility] Start: 08-02-2023 Tobacco use and exposure Smokeless tobacco non-user [facility] Start: 07-21-2024 End: 08-04-2024 Alcoholic beverage intake Ex-drinker (finding) [facility] Start: 08-02-2023 End: 11-25-2023 History of Social function [facility] Start: 01-03-2024 [facility] Start: 1995 Sex assigned at Not on file [facility] Clinical Notes 12-21-2021 to 08-18-2024 Justine [...] before breakfast, Do not crush or chew. Olilabfz-Szc-Xj-FA ( 1 + IRON PO) Oral ALLERGIES [...] nursing note reviewed. Exam conducted with a director of medical education present. Vitals: Estimated body mass index is [...] Agus Juárez DO documented in this encounter [facility] 08-04-2024 History of Presen t illness Narrative [...] before breakfast, Do not crush or chew. Xlogtica-Maz-Gg-FA ( 1 + IRON PO) Oral ALLERGIES [...] of: SOLOMON Turner documented in this encounter [facility] 10-31-2023 Evaluation note Encounter Date Diagnosis [...] E28.2) She will continue to follow with OB-OFFICE MACHINE INSPECTOR and continue healthy lifestyle changes that she [...] course of antibiotic. Increase fluids and rest. Bxvm-hzf-elozull antipyretics as needed. Warning signs and symptoms reviewed with patient today. Patient to go immediately to the ER should she experience any of these. Patient to notify office should her symptoms persist and not improve. Patient verbalizes understanding and agrees to treatment plan. [facility] Other 09-22-2023 Evaluation note* Encounter Date Diagnosis Assessment Notes Treatment Notes Treatment Clinical Notes Jun, Vitamin D insufficiency (ICD-10 - E55.9) [facility] Other 08-28-2023 Evaluation note* Encounter Date Diagnosis [...] E28.2) She will continue to follow with OB-OFFICE MACHINE INSPECTOR and continue healthy lifestyle changes that she [...] ENT today. Specialty notes reviewed as received. [facility] Other 08-08-2023 Evaluation note* Encounter Date Diagnosis Assessment Notes Treatment Notes Treatment Clinical Notes May, Other atopic dermatitis (ICD-10 - L20.89) May, Acute otitis externa of both ears, unspecified type (ICD-10 - H60.503) [facility] Other 06-19-2023 Evaluation note* Encounter Date Diagnosis [...] no improvement in 2 to 3 days [facility] Other 06-15-2023 Evaluation note* Encounter Date Diagnosis Assessment Notes Treatment Notes Treatment Clinical Notes Mar, Anxiety (ICD-10 - F41.9) [facility] Other 04-27-2023 Evaluation note* Encounter Date Diagnosis [...] plan on rechecking this at May appointment. [facility] Other 03-10-2023 Evaluation note* Encounter Date Diagnosis Assessment Notes Treatment Notes Treatment Clinical Notes Dec, Bacterial conjunctivitis (ICD-10 - H10.9) [facility] Other 03-02-2023 Evaluation note* Encounter Date Diagnosis Assessment Notes Treatment Notes Treatment Clinical Notes Dec, Vitamin D insufficiency (ICD-10 - E55.9) Dec, Elevated alkaline phosphatase level (ICD-10 - R74.8) Dec, Other specified hypothyroidism (ICD-10 - E03.8) [facility] Other 02-27-2023 Evaluation note* Encounter Date Diagnosis [...] ordered. Follow routinely with eye doctor, dentist, OFFICE MACHINE INSPECTOR. Patient is advised to work on healthy diet choices and appropriate servings, weight control, regular exercise as directed, reduced fat intake, and salt avoidance. Patient voiced understanding of this and agrees to this plan. Nov, PCOS (polycystic ovarian syndrome) (ICD-10 - E28.2) Routine lab work ordered. She will continue to follow with OB-OFFICE MACHINE INSPECTOR and continue healthy lifestyle changes that she [...] homicidal ideations. Started on Celexa by her OFFICE MACHINE INSPECTOR. Very stable on Celexa 20 mg daily. [...] her ears still persist after starting this. [facility] Other 02-24-2022 Evaluation note* Encounter Date Diagnosis Assessment Notes Treatment Notes Treatment Clinical Notes Nov, Prediabetes (ICD-10 - R73.03) She was recently dx with prediabetes and was started on Metformin 500 mg BID 2 weeks ago by her OB-OFFICE MACHINE INSPECTOR. She would like to follow with our [...] - E28.2) She is following with her OB-OFFICE MACHINE INSPECTOR for her PCOS and is currently on Metformin 500 mg BID and is taking medication to help her get . She will continue to follow with OB-OFFICE MACHINE INSPECTOR and continue healthy lifestyle changes that she [...] of fatigue, difficulty losing weight by her OB-OFFICE MACHINE INSPECTOR. She would like to start following with [...] of this and agrees to this plan. [facility] Other Evaluation note* Diagnosis Onset Date Resolution Status 8 weeks gestation of acute Low back pain [facility] Work Phone: Evaluation note* Diagnosis [...] THIRD NIPPLE REMOVED Surgical History Colonoscopy-normal 2018 Telepo Other Summary Purpose Family History Relationship Condition [...] Right ear pain (H92. 01) Referral Organization [facility] Gonzales Hernandez Referring Provider First Name Sandra [...] and content) DATE CREATED AUTHOR 02/25/2023 [facility] DATE CREATED AUTHOR AUTHOR'S ESMER FLORES 08/06/2024 [facility] EPIC Care Teams (unrecognized [...] February 13, 2024 End: February 13, 2024 Data Architect Manager Relationship Specialty Start Date End Date Sandra Austin NP [address] [facility] [place] [address] PCP - General 07/19/23 Data Architect Manager Relationship Specialty Start Date End Date Sandra Austin NP [address] [facility] [place] [address] PCP - General 07/19/23 Data Architect Manager Relationship Specialty Start Date End Date Sandra Austin NP [address] [facility] [place] [address] PCP - General 07/19/23 Data Architect Manager Relationship Specialty Start Date End Date Sandra Austin NP [address] [place] [address] PCP - General 07/19/23 Goals (unrecognized section [...] BE BASED ON THE PRIMARY CLINICAL RECORDS. [facility] [employer] [facility]. provides no warranty or guarantee of the accuracy or completeness of information in this document.
[2024-08-29 07:53] VITALS: BP 132/78; PULSE 77; TEMP 36.1
== END 2024-08-29 08:40 | disposition home or self-care (01) ==
LOC: FBCO 07:37 → FBC 07:51
PROVIDERS: Visit Provider Obstetrics & Gynecology
DX: O99.283 Endocrine, nutritional and metabolic diseases complicating pregnancy, third trimester (principal); E07.9 Disorder of thyroid, unspecified; Z3A.36 36 weeks gestation of pregnancy
CPT/HCPCS: 36415; 59025; 84443

== ENCOUNTER 2024-08-29 08:39 | Outpatient (OUT) | payer OTHER, SELFPAY ==
--- OUTSIDE RECORDS SUMMARY | 2024-08-29 08:41 | XMS_ITS | CCD ---
Author Organization [facility] Care Team Providers Care Heavy Mobile Equipment Operator Name Role Phone [facility] Unavailable KAP, SANDRA Primary Care Unavailable MARQUITA ., DR GOLDSMITH Attending Unavailable WEST, DR MANUELITO Foley Consulting Unavailable MARQUITA ., DR GOLDSMITH Admitting Unavailable MARQUITA ., DR GOLDSMITH Consulting Unavailable BRIAN, VIRGINIA Admitting Unavailable VIRGINIA TORRES Attending Unavailable KAP, SANDRA Primary Care Unavailable CANTON, DR MANUELITO Foley Consulting Unavailable MARQUITA ., [...] Unavailable MARQUITA ., DR GOLDSMITH Attending Unavailable CANTON, DR MANUELITO Foley Consulting Unavailable MARQUITA ., [...] Unavailable MARQUITA ., DR GOLDSMITH Attending Unavailable CANTON, DR MANUELITO Foley Consulting Unavailable MARQUITA ., [...] LYK ., DR HU Consulting Unavailabl e CANTON, DR MANUELITO Foley Consulting Unavailable MARQUITA ., DR GOLDSMITH Consulting Unavailable SANDRA AUSTIN Primary Care Unavailable MARQUITA ., DR GOLDSMITH Attending Unavailable CANTON, DR MANUELITO Foley Consulting Unavailable MARQUITA ., DR GOLDSMITH Admitting Unavailable MARQUITA ., DR GOLDSMITH Consulting Unavailable Yari Ramonita Unavailable MARYLOU PRIEST Attending Unavailable MARQUITA, AGUS Attending Unavailable MARQUITA, AGUS Attending Unavailable MARQUITA, AGUS Attending Unavailable MARYLOU PRIEST Attending Unavailable MARQUITA, AGUS Attending Unavailable MARQUITA, AGUS Attending Unavailable MARQUITA, AGUS Attending Unavailable Geovanna PROFESSIONAL HEALTHCARE REPRESENTATIVE, Sandra Hall Primary Care Provider Medications Current [...] hours February 13, 2024 12:00am polymyxin b 53304 unt/ml / trimethoprim 1 mg/ml ophthalmic solution (3 sources) Dihydrofolate Reductase Inhibitor Antibacterial, Polymyxin-class Antibacterial Start: 01-04-2023 Polymyxin B-Trimethoprim 27436-8.1 UNIT/ML 1 drop into affected eye Ophthalmic every 3 hours up to six times daily for 7 days Dec, Active (10 sources) Active Kqajmveg-Mdu-Mh-FA ( 1 + IRON PO) (6 sources) Ncsonvzy-Pvv-Hs-F A ( 1 + IRON PO) Take [...] acid 7540 MG / polyethylene glycol 3350 64084 MG / potassium chloride 1200 MG / sodium ascorbate 81663 MG / sodium chloride 3200 MG Powder for Oral Solution) / 1 (polyethylene glycol 3350 114466 MG / potassium chloride 1000 MG / [...] UA Negative Negative - 4(70) +++ mg/dL [facility] Blood, UA Negative Negative - 50 Jose Manuel/mcL [facility] Clarity, UA Clear [facility] re Color, UA Yellow [facility] e Glucose, UA Negative Negative - 1999(110) ++++ mg/dL [facility] Interpretation and review of laboratory results Normal [facility] Ketones, UA Negative Negative - 160(16) ++++ mg/dL [facility] Leukocytes, UA Negative Negative - 500+++ Alexys/mcL [facility] Nitrite, UA Negative Negative - Positive [facility] pH, UA 6.5 5 - 9 [facility], [facility]A Negative Negative - 1999(20) ++++ mg/dL [facility] Spec Grav, UA 1.01 1 - 1.03 [facility] care Urobilinogen, UA 0.2 0.2 - 12 mg/dL [facility] e Urinalysis macro (dipstick) panel (U)on 08-04-2024 Bilirubin, UA Negative Negative - 4(70) +++ mg/dL [facility] Blood, UA Negative Negative - 50 Jose Manuel/mcL [facility] Clarity, UA Clear [facility] re Color, UA Yellow [facility] e Glucose, UA Negative Negative - 1999(110) ++++ mg/dL [facility] Interpretation and review of laboratory results Abnormal [facility] Ketones, UA Negative Negative - 160(16) ++++ mg/dL [facility] Leukocytes, UA Trace Negative - 500+++ Alexys/mcL [facility] Nitrite, UA Negative Negative - Positive [facility] pH, UA 7.0 5 - 9 [facility] e Protein, UA Negative Negative - 1999(20) ++++ mg/dL [facility] Spec Grav, UA 1.015 1 - 1.03 [facility] Urobilinogen, UA 0.2 0.2 - 12 mg/dL [facility] Human papilloma virus 16+18+ 31+33+35+39+45+51+52+56+58+59+66+68 DNA [Presence] in Anders 12-16-2023 HPV 16+18+31+33+35+39+45 +51+52+56+58+59+66+6 8 DNA Probe+sig amp Ql (Cvx) Note . [facility] Comment on above: TESTS RESULT FLAG UN ITS REF RANGE LAB DI AGNOSIS: 02 NEGATIVE FOR INTRAEPITHELIAL LESION OR MALIGNANCY.Specimen adequacy: 02 Satisfactory for evaluation. Endocervical and/or squamous metaplastic cells (endocervical component) are present.Performed by: 02 Raeann Duran, Metallurgical Lab Technician ([facility]). 02Note: Note 02 The Pap smear is a screening test designed to aid in the detection of premalignant and malignant conditions of the uterine cervix. It is not a diagnostic procedure and should not be used as the sole means of detecting cervical cancer. Both false-positive and false-negative reports do occur.Test Methodology: Note 02 The [employer] Prep(R) Survey Cad Technician was unable to read this specimen. Therefore a manual review was performed. ----- FLAG LEGEND: L-Low Normal,H-High Normal,LL-Alert Low,HH-Alert High <-Panic Low,>-Panic High,A-Abnormal,AA-Critical Abnormal ---Performed at:[address] [id number] Heavenly Serrano MD, . 02 The HPV DNA reflex criteria were not met with this specimen result therefore, no HPV testing was performed.The HPV DNA reflex criteria were not met with this specimenresult therefore, no HPV testing was performed.Performed at: =[address] [id number] Director: Heavenly Serrano MD, Phone: [phone] at: [facility] [id number] Director: Heavenly Serrano MD, Phone: [phone] No Panel Informationon 12-16 Reference Lab Test Patient Age Note . [facility] Comment on above: TESTS RESULT FLAG UN ITS REF RANGE LAB Clinician Provided Cytology Information Source.............Cervix No. of containers..01 ThinPrep VialAge Algo ACOG Leslye... FLAG LEGEND: L-Low Normal,H-High Normal,LL-Alert Low,HH-Alert High <-Panic Low,>-Panic High,A-Abnormal,AA-Critical Abnormal ---Performed at:01 =[address] [facility] [id number] Heavenly Serrano MD, A1C HEMOGLOBINon 10-31-2023 HbA1c (Bld) [Mass fraction] 5.8 % [employer] Other HbA1c (Bld) [Mass fraction]o n 10-31-2023 A1C HEMOGLOBIN [employer] Other A1C HEMOGLOBINon 06-24-2023 HbA1c (Bld) [Mass fraction] 5.2 % [employer] Other HbA1c (Bld) [Mass fraction]o n 06-24-2023 A1C HEMOGLOBIN [employer] Other Quick Strepon 04-15-2023 S. pyogenes Org specific cx Ql (Throat) Positive [employer] Other Quick Strep [employer] Other FREE T4on 02-21-2023 Free T4 [Mass/Vol] 0.89 ng/dL Normal 0.76-1.46 [facility] Comment on above: Performed By: #### H H #### [facility] [address] [place] [address] Dr. Bella Jerome PROF 14(COMP METB)on 023 Albumin [Mass/Vol] 3.7 g/dL Normal 3.4-5.0 [facility] Comment on above: Performed By: #### H H #### [facility] [address] [place] [address] Dr. Bella Jerome Albumin/Globulin [Mass ratio] 0.9 {ratio} Normal [facility] Comment on above: Performed By: #### H H #### [facility] [address] [place] [address] Dr. Bella Jerome ALP [Catalytic activity/Vol] 132 U/L Critically high 46-116 [facility] Comment on above: Performed By: #### H H #### [facility] [address] [place] [address] Dr. Bella Jerome ALT [Catalytic activity/Vol] 32 U/L Normal 14-59 [facility] Comment on above: Performed By: #### H H #### [facility] [address] [place] [address] Dr. Bella Jerome Anion gap [Moles/Vol] 12.8 mmol/L Normal [facility] Comment on above: Performed By: #### H H #### [facility] [address] [place] [address] Dr. Bella Jerome AST [Catalytic activity/Vol] 23 U/L Normal 15-37 [facility] Comment on above: Performed By: #### H H #### [facility] [address] [place] [address] Dr. Bella Jerome Bilirubin [Mass/Vol] 0.6 mg/dL Normal 0.2-1.0 [facility] Comment on above: Performed By: #### H H #### [facility] [address] [place] [address] Dr. Bella Jerome Calcium [Mass/Vol] 9.0 mg/dL Normal 8.5-10.1 [facility] Comment on above: Performed By: #### H H #### [facility] [address] [place] [address] Dr. Bella Jerome Chloride [Moles/Vol] 102 mmol/L Normal 98-107 [facility] Comment on above: Performed By: #### H H #### [facility] [address] [place] [address] Dr. Bella Jerome CO2 [Moles/Vol] 28.2 mmol/L Normal 21.0-32.0 [facility] Comment on above: Performed By: #### H H #### [facility] [address] [address] [address] Bella Jerome Creatinine [Mass/Vol] 0.67 mg/dL Normal 0.55-1.02 [facility] Comment on above: Performed By: #### H H #### [facility] [address] [address] [address] Bella Jerome EGFR-AF ICELANDIC >60 Normal >=60 [facility] Comment on above: Performed By: #### H H #### [facility] [address] [place] [address] Dr. Bella Jerome EGFR-NON AF ICELANDIC >60 Normal >=60 [facility] Comment on above: Performed By: #### H H #### [facility] [address] [place] [address] Dr. Bella Jerome Globulin (S) [Mass/Vol] 4.2 g/dL Normal [facility] Comment on above: Performed By: #### H H #### [facility] [address] [place] [address] Dr. Bella Jerome Glucose [Mass/Vol] 88 mg/dL Normal 74-106 [facility] Comment on above: Performed By: #### H H #### [facility] [address] [place] [address] Dr. Bella Jerome Potassium [Moles/Vol] 4.0 mmol/L Normal 3.5-5.1 [facility] Comment on above: Performed By: #### H H #### [facility] [address] [place] [address] Dr. Bella Jerome Protein [Mass/Vol] 7.9 g/dL Normal 6.4-8.2 [facility] Comment on above: Performed By: #### H H #### [facility] [address] [place] [address] Dr. Bella Jerome Sodium [Moles/Vol] 139 mmol/L Normal 136-145 [facility] Comment on above: Performed By: #### H H #### [facility] [address] [place] [address] Dr. Bella Jerome Urea nitrogen [Mass/Vol] 12.0 mg/dL Normal 7.0-18.0 [facility] Comment on above: Performed By: #### H H #### [facility] [address] [place] [address] Dr. Bella Jerome Urea nitrogen/Creatinine [Mass ratio] 17.9 mg/mg Normal [facility] Comment on above: Performed By: #### H H #### [facility] [address] [place] [address] Dr. Bella Jerome TSHon 02-21-2023 TSH 2.463 uIU/mL Normal 0.358-3.740 [facility] Comment on above: Performed By: #### H H #### [facility] [address] [place] [address] Dr. Bella Jerome VITAMIN D 25 OHon 02-21-2023 VIT D 25-OH 23.1 ng/mL Normal [facility] Comment on above: Performed By: #### H H #### [facility] [address] [place] [address] Dr. Bella Jerome VIT D RANGES SEE BELOW Normal [facility] Comment on above: Result Comment: <20 ng/mL Vit D deficient 20 - <30 ng/mL Vit D insufficient 30 - 100 ng/mL Vit D sufficient >100 ng/mL Potential Toxicity Performed By: #### H H #### [facility] [address] [place] [address] Dr. Bella Jerome CBC AUTO DIFFon 12-26-2022 BASO # 0.0 103/ul Normal 0.0-0.1 [facility] Comment on above: Performed By: #### C BC #### [facility] [address] [place] [address] Dr. Bella Jerome Basophils/100 WBC (Bld) 0.3 % Normal 0.2-2.0 [facility] Comment on above: Performed By: #### C BC #### [facility] [address] [place] [address] Dr. Bella Jerome EO # 0.1 103/ul Normal 0.0-0.7 [facility] Comment on above: Performed By: #### C BC #### [facility] [address] [place] [address] Dr. Bella Jerome Eosinophils/100 WBC (Bld) 1.6 % Normal 0.9-7.0 [facility] Comment on above: Performed By: #### C BC #### [facility] [address] [place] [address] Dr. Bella Jerome Erythrocyte distribution width (RBC) [Ratio] 12.7 % Normal 11.0-15.0 [facility] Comment on above: Performed By: #### C BC #### [facility] [address] [place] [address] Dr. Bella Jerome Hematocrit (Bld) [Volume fraction] 37.2 % Normal 36.0-48.0 [facility] Comment on above: Performed By: #### C BC #### [facility] [address] [place] [address] Dr. Bella Jerome Hemoglobin (Bld) [Mass/Vol] 12.5 g/dL Normal 12.0-16.0 [facility] Comment on above: Performed By: #### C BC #### [facility] [address] [place] [address] Dr. Bella Jerome IG # 0.02 10e3/ul Normal 0.00-0.03 [facility] Comment on above: Performed By: #### C BC #### [facility] [address] [place] [address] Dr. Bella Jerome IG % 0.3 % Normal 0.0-0.5 [facility] Comment on above: Performed By: #### C BC #### [facility] [address] [place] [address] Dr. Bella Jerome LYMPH # 2.3 103/ul Normal 1.2-3.8 [facility] Comment on above: Performed By: #### C BC #### [facility] [address] [place] [address] Dr. Bella Jerome Lymphocytes/100 WBC (Bld) 34.1 % Normal 20.5-60.0 [facility] Comment on above: Performed By: #### C BC #### [facility] [address] [place] [address] Dr. Bella Jerome MANUAL DIFF REQ NO Normal [facility] Comment on above: Performed By: #### C BC #### [facility] [address] [place] [address] Dr. Bella Jerome MCH (RBC) [Entitic mass] 30.9 pg Normal 26.7-34.0 [facility] Comment on above: Performed By: #### C BC #### [facility] [address] [place] [address] Dr. Bella Jerome MCHC (RBC) [Mass/Vol] 33.6 g/dL Normal 29.9-35.2 [facility] Comment on above: Performed By: #### C BC #### [facility] [address] [place] [address] Dr. Bella Jerome MCV (RBC) [Entitic vol] 91.9 fL Normal 81.0-99.0 [facility] Comment on above: Performed By: #### C BC #### [facility] [address] [place] [address] Dr. Bella Jerome MONO # 0.4 103/ul Normal 0.3-0.8 [facility] Comment on above: Performed By: #### C BC #### [facility] [address] [place] [address] Dr. Bella Jerome Monocytes/100 WBC (Bld) 5.1 % Normal 1.7-12.0 [facility] Comment on above: Performed By: #### C BC #### [facility] [address] [place] [address] Dr. Bella Jerome NEUT # 4.0 103/ul Normal 1.4-6.5 [facility] Comment on above: Performed By: #### C BC #### [facility] [address] [place] [address] Dr. Bella Jerome Neutrophils/100 WBC (Bld) 58.6 % Normal 43.0-75.0 [facility] Comment on above: Performed By: #### C BC #### [facility] [address] [address] [address] Bella Jerome Platelet mean volume (Bld) [Entitic vol] 11.5 fL Normal 9.5-13.5 [facility] Comment on above: Performed By: #### C BC #### [facility] [address] [address] [address] Bella Jerome PLT 243 103/ul Normal 150-450 [facility] Comment on above: Performed By: #### C BC #### [facility] [address] [address] [address] Bella Jerome RBC 4.05 106/ul Critically low 4.20-5.40 [facility] Comment on above: Performed By: #### C BC #### [facility] [address] [address] [address] Bella Jerome WBC 6.8 103/ul Normal 4.0-11.0 [facility] Comment on above: Performed By: #### C BC #### [facility] [address] [address] [address] Bella Jerome FREE T4on 12-26-2022 Free T4 [Mass/Vol] 1.05 ng/dL Normal 0.76-1.46 [facility] Comment on above: Performed By: #### F T4, VITAD, B12FOL, IRON ####[facility] [id number] [place], [place] [id number]. Bella Jerome GLYCOHEMOGLOBIN A1Con 2022 ADA RECOMMENDATION SEE BELOW Normal [facility] Comment on above: Result Comment: ADA RECOMMENDED LIMIT 4.0 - 6.0 ADA THERAPEUTIC TARGET < 7.0 ACTION SUGGESTED > 7.0 Performed By: #### A 1C #### [facility] [address] [id number] Bella Jerome Glucose [Mass/Vol] 103 mg/dL Normal [facility] Comment on above: Performed By: #### A 1C #### [facility] [address] [address] [address] Bella Jerome HbA1c (Bld) [Mass fraction] 5.2 % Normal 4.5-6.2 [facility] Comment on above: Performed By: #### A 1C #### [facility] [address] [address] [address] Bella Jerome IRONon 12-26-2022 Iron [Mass/Vol] 74.0 ug/dL Normal 50.0-170.0 [facility] Comment on above: Performed By: #### F T4, VITAD, B12FOL, IRON ####[facility] [id number] [address] Bella Jerome LIPID PROFILEon 12-26-2022 CHOL-HDL RATIO NORM SEE BELOW Normal [facility] Comment on above: Result Comment: 3.3 - 4.4 LOW RISK 4.4 - 7.1 AVERAGE RISK 7.1 - 11.0 MODERATE RISK >11.0 HIGH RISK Performed By: #### C MP, TSH, LIPID #### [facility] [address] [address] [address] Bella Jerome Cholesterol [Mass/Vol] 153 mg/dL Normal <=200 [facility] Comment on above: Performed By: #### C MP, TSH, LIPID #### [facility] [address] [address] [address] Bella Jerome Cholesterol in HDL [Mass/Vol] 67 mg/dL Critically high 40-60 [facility] Comment on above: Performed By: #### C MP, TSH, LIPID #### [facility] [address] [address] [address] Bella Jerome Cholesterol in LDL [Mass/Vol] 77.2 mg/dL Normal [facility] Comment on above: Performed By: #### C MP, TSH, LIPID #### [facility] [address] [address] [address] Bella Jerome Cholesterol.total/Ch olesterol in HDL [Mass ratio] 2.3 {ratio} Normal [facility] Comment on above: Performed By: #### C MP, TSH, LIPID #### [facility] [address] [address] [address] Bella Jerome HDL NORMAL > or = 60 mg/dl - LOW CARDIOVASCULAR RISK <40 mg/dl - HIGH CARDIOVASCULAR RISK Normal [facility] Comment on above: Performed By: #### C MP, TSH, LIPID #### [facility] [address] [address] [address] Bella Jerome LDL CALC NORMAL SEE BELOW Normal [facility] Comment on above: Result Comment: <100 mg/dl OPTIMAL 100 - 129 mg/dl NEAR OR ABOVE OPTIMAL 130 - 159 mg/dl BORDERLINE HIGH 160 - 189 mg/dl HIGH >190 mg/dl VERY HIGH Performed By: #### C MP, TSH, LIPID #### [facility] [address] [address] [address] Bella Jerome Triglyceride [Mass/Vol] 44 mg/dL Normal <=150 [facility] Comment on above: Performed By: #### C MP, TSH, LIPID #### [facility] [address] [address] [address] Bella Jerome VLDL CALC 8.8 mg/dL Normal [facility] Comment on above: Performed By: #### C MP, TSH, LIPID #### [facility] [address] [address] [address] Bella Jerome MICROALB CREAT RATIO RANDOMo n 12-26-2022 mALB 2.3 mg/L Normal <=30.0 [facility] Comment on above: Performed By: #### H H #### [facility] [address] [address] [address] Bella Jerome MALB CR RATIO 17.4 mg/g Normal 0.0-29.9 [facility] Comment on above: Performed By: #### H H #### [facility] [address] [address] [address] Bella Jerome MALB CR RATIO RANGE SEE BELOW Normal [facility] Comment on above: Result Comment: NO M ICROALBUMINURIA 0-29 MG/G CLINICAL MICROALBUMINURIA 30-300 MG/G MACROALBUMINURIA >300 MG/G Performed By: #### H H #### [facility] [address] [address] [address] Bella Jerome URINE CREAT 131.90 mg/dL Normal 20.00-300.00 [facility] Comment on above: Performed By: #### H H #### [facility] [address] [address] [address] Bella Jerome PROF 14(COMP METB)on 023 Albumin [Mass/Vol] 4.1 g/dL Normal 3.4-5.0 [facility] Comment on above: Performed By: #### C MP, TSH, LIPID #### [facility] [address] [address] [address] Bella Jerome Albumin/Globulin [Mass ratio] 1.3 {ratio} Normal [facility] Comment on above: Performed By: #### C MP, TSH, LIPID #### [facility] [address] [address] [address] Bella Jerome ALP [Catalytic activity/Vol] 124 U/L Critically high 46-116 [facility] Comment on above: Performed By: #### C MP, TSH, LIPID #### [facility] [address] [address] [address] Bella Jerome ALT [Catalytic activity/Vol] 16 U/L Normal 14-59 [facility] Comment on above: Performed By: #### C MP, TSH, LIPID #### [facility] [address] [address] [address] Bella Jerome Anion gap [Moles/Vol] 13.4 mmol/L Normal [facility] Comment on above: Performed By: #### C MP, TSH, LIPID #### [facility] [address] [address] [address] Bella Jerome AST [Catalytic activity/Vol] 17 U/L Normal 15-37 [facility] Comment on above: Performed By: #### C MP, TSH, LIPID #### [facility] [address] [address] [address] Bella Jerome Bilirubin [Mass/Vol] 0.8 mg/dL Normal 0.2-1.0 [facility] Comment on above: Performed By: #### C MP, TSH, LIPID #### [facility] [address] [address] [address] Bella Jerome Calcium [Mass/Vol] 8.9 mg/dL Normal 8.5-10.1 [facility] Comment on above: Performed By: #### C MP, TSH, LIPID #### [facility] [address] [place] [address] Dr. Bella Jerome Chloride [Moles/Vol] 103 mmol/L Normal 98-107 [facility] Comment on above: Performed By: #### C MP, TSH, LIPID #### [facility] [address] [place] [address] Dr. Bella Jerome CO2 [Moles/Vol] 25.6 mmol/L Normal 21.0-32.0 [facility] Comment on above: Performed By: #### C MP, TSH, LIPID #### [facility] [address] [place] [address] Dr. Bella Jerome Creatinine [Mass/Vol] 0.55 mg/dL Normal 0.55-1.02 [facility] Comment on above: Performed By: #### C MP, TSH, LIPID #### [facility] [address] [place] [address] Dr. Bella Jerome EGFR-AF ICELANDIC >60 Normal >=60 [facility] Comment on above: Performed By: #### C MP, TSH, LIPID #### [facility] [address] [place] [address] Dr. Bella Jerome EGFR-NON AF ICELANDIC >60 Normal >=60 [facility] Comment on above: Performed By: #### C MP, TSH, LIPID #### [facility] [address] [place] [address] Dr. Bella Jerome Globulin (S) [Mass/Vol] 3.1 g/dL Normal [facility] Comment on above: Performed By: #### C MP, TSH, LIPID #### [facility] [address] [place] [address] Dr. Bella Jerome Glucose [Mass/Vol] 82 mg/dL Normal 74-106 [facility] Comment on above: Performed By: #### C MP, TSH, LIPID #### [facility] [address] [place] [address] Dr. Bella Jerome Potassium [Moles/Vol] 4.0 mmol/L Normal 3.5-5.1 [facility] Comment on above: Performed By: #### C MP, TSH, LIPID #### [facility] [address] [place] [address] Dr. Bella Jerome Protein [Mass/Vol] 7.2 g/dL Normal 6.4-8.2 [facility] Comment on above: Performed By: #### C MP, TSH, LIPID #### [facility] [address] [place] [address] Dr. Bella Jerome Sodium [Moles/Vol] 138 mmol/L Normal 136-145 [facility] Comment on above: Performed By: #### C MP, TSH, LIPID #### [facility] [address] [place] [address] Dr. Bella Jerome Urea nitrogen [Mass/Vol] 14.0 mg/dL Normal 7.0-18.0 [facility] Comment on above: Performed By: #### C MP, TSH, LIPID #### [facility] [address] [place] [address] Dr. Bella Jerome Urea nitrogen/Creatinine [Mass ratio] 25.5 mg/mg Normal [facility] Comment on above: Performed By: #### C MP, TSH, LIPID #### [facility] [address] [place] [address] Dr. Bella Jerome TSHon 12-26-2022 TSH 0.224 uIU/mL Critically low 0.358-3.740 [facility] Comment on above: Performed By: #### C MP, TSH, LIPID #### [facility] [address] [place] [address] Dr. Bella Jerome VIT B12 AND FOLATEon 023 Cobalamin (Vitamin B12) [Mass/Vol] 702.0 pg/mL Normal 193.0-986.0 [facility] Comment on above: Performed By: #### F T4, VITAD, B12FOL, IRON ####[facility] [address] [address]Dr. Bella Jerome FOLATE 25.10 ng/mL Normal 8.60-58.90 [facility] Comment on above: Performed By: #### F T4, VITAD, B12FOL, IRON ####[facility] [address] [address]Dr. Bella Jerome VITAMIN D 25 OHon 12-26-2022 VIT D 25-OH 25.4 ng/mL Normal [facility] Comment on above: Performed By: #### F T4, VITAD, B12FOL, IRON ####[facility] [address] [address]DrWill Jerome VIT D RANGES SEE BELOW [facility] Comment on above: Result Comment: <20 ng/mL Vit D deficient 20 - <30 ng/mL Vit D insufficient 30 - 100 ng/mL Vit D sufficient >100 ng/mL Potential Toxicity Performed By: #### F T4, VITAD, B12FOL, IRON ####[facility] [address] [address]Dr. Bella Jerome PAP ACOG PANEL 2: 23 to 31on 12-18-2022 . . Normal [facility] Comment on above: Performed By: #### C BC #### [facility] [address] [address] [address] Bella Jerome Age Gdln ACOG Testing - Normal [facility] Comment on above: Performed By: #### C BC #### [facility] [address] [address] [address] Bella Jerome DIAGNOSIS: Comment Normal [facility] Comment on above: Result Comment: NEGA TIVE FOR INTRAEPITHELIAL LESION OR MALIGNANCY. Performed By: #### C BC #### [facility] [address] [address] [address] Bella Jerome Methodology: Comment Normal [facility] Comment on above: Result Comment: This liquid based ThinPrep(R) pap test was screened with the use of an image guided system. Performed By: #### C BC #### [facility] [address] [address] [address] Bella Jerome Note: Comment Normal [facility] Comment on [...] Performed By: #### C BC #### [facility] [address] [address] [address] Bella Jerome Performed by: Comment Normal [facility] Comment on above: Result Comment: Byron Irby, Metallurgical Lab Technician (ASCP) Performed By: #### C BC #### [facility] [address] [place] [address] Dr. Bella Jerome Reflex Criteria: Comment Normal [facility] Comment on above: Result Comment: The HPV DNA reflex criteria were not met with this specimen result therefore, no HPV testing was performed. . Performed By: #### C BC #### [facility] [address] [place] [address] Dr. Bella Jerome Specimen adequacy: Comment Normal [facility] Comment on above: Result Comment: Sati sfactory for evaluation. Endocervical and/or squamous metaplastic cells (endocervical component) are present. Performed By: #### C BC #### [facility] [address] [place] [address] Dr. Bella Jerome CBC W MANUAL DIFFon 09-07-20 22 ATYPICAL LYMPH # Normal [facility] Comment on above: Performed By: #### C BCMAN ####[facility] [address] [address]Dr. Bella Jerome ATYPICAL LYMPH % Normal [facility] Comment on above: Performed By: #### C BCMAN ####[facility] [address] [address]Dr. Bella Jerome BAND # 0.2 103/ul Normal 0.0-0.3 [facility] Comment on above: Performed By: #### C BCMAN ####[facility] [address] [address]Dr. Bella Jerome BAND % 1 % Normal 0-5 [facility] Comment on above: Performed By: #### C PEDRO ####[facility] [address] [address]Dr. Bella Jerome BASOM # 0.00 103/ul Normal 0.00-0.10 [facility] Comment on above: Performed By: #### C BCRELL ####[facility] [address] [address]Dr. Bella Jerome BASOM % 0.0 % Critically low 0.2-2.0 [facility] Comment on above: Performed By: #### C PEDRO ####[facility] [address] [address]Dr. Bella Jerome BLAST # Normal [facility] Comment on above: Performed By: #### C PEDRO ####[facility] [address] [address]Dr. Bella Jerome BLAST % Normal [facility] Comment on above: Performed By: #### C PEDRO ####[facility] [address] [place], [place] [address]Dr. Bella Jerome CORRECTED WBC Normal 4.0-11.0 [facility] Comment on above: Performed By: #### C PEDRO ####[facility] [address] [address]Dr. Bella Jerome EOS # 0.00 103/ul Normal 0.00-0.70 [facility] Comment on above: Performed By: #### C PEDRO ####[facility] [address] [address]Dr. Bella Jerome EOS% 0.0 % Critically low 0.9-7.0 [facility] Comment on above: Performed By: #### C PEDRO ####[facility] [address] [place], [place] [address]Dr. Bella Jerome HCT 30.5 % Critically low 36.0-48.0 [facility] Comment on above: Performed By: #### C PEDRO ####[facility] [address] [place], [place] [address]Di. Bella Jerome HGB 10.5 g/dl Critically low 12.0-16.0 [facility] Comment on above: Performed By: #### C PEDRO ####[facility] [address] [place], [place] [address]Ra. Bella Jerome LYMPHM # 2.78 103/ul Normal 1.20-3.80 [facility] Comment on above: Performed By: #### C PEDRO ####[facility] [address] [place], [place] [address]Zp. Bella Jerome LYMPHM% 13.0 % Critically low 20.5-60.0 [facility] Comment on above: Performed By: #### C PEDRO ####[facility] [address] [place], [place] [address]Je. Bella Jerome MCH 32.8 pg Normal 26.7-34.0 [facility] Comment on above: Performed By: #### C PEDRO ####[facility] [address] [place], [place] [address]Ev. Bella Jerome MCHC 34.4 g/dl Normal 29.9-35.2 [facility] Comment on above: Performed By: #### Jennifer VASQUEZ ####[facility] [address] [place], [place] [address]Ls. Bella Jerome MCV 95.3 fL Normal 81.0-99.0 [facility] Comment on above: Performed By: #### Jennifer VASQUEZ ####[facility] [address] [place], [place] [address]Va. Bella Jerome METAMYELOCYTE # Normal [facility] Comment on above: Performed By: #### C PEDRO ####[facility] [address] [place], [place] [address]Or. Bella Jerome METAMYELOCYTE % Normal [facility] Comment on above: Performed By: #### Jennifer VASQUEZ ####[facility] [address] [place], [place] [address]Pm. Bella Jerome MONOM# 2.35 103/ul Critically high 0.30-0.80 [facility] Comment on above: Performed By: #### C PEDRO ####[facility] [address] [address]Dr. Bella Jerome MONOM% 11.0 % Normal 1.7-12.0 [facility] Comment on above: Performed By: #### C PEDRO ####[facility] [address] [address]Dr. Bella Jerome MPV 11.1 fL Normal 9.5-13.5 [facility] Comment on above: Performed By: #### C PEDRO ####[facility] [address] [address]Dr. Bella Jerome MYELOCYTE # Normal [facility] Comment on above: Performed By: #### C PEDRO ####[facility] [address] [address]Dr. Bella Jerome MYELOCYTE % Normal [facility] Comment on above: Performed By: #### C PEDRO ####[facility] [address] [address]Dr. Bella Jerome NRBC Normal [facility] Comment on above: Performed By: #### C PEDRO ####[facility] [address] [address]Dr. Bella Jerome PLT 227 103/ul Normal 150-450 [facility] Comment on above: Performed By: #### C PEDRO ####[facility] [address] [address]Dr. Bella Jerome RBC 3.20 106/ul Critically low 4.20-5.40 [facility] Comment on above: Performed By: #### C PEDRO ####[facility] [address] [address]Dr. Bella Jerome RDW 12.8 % Normal 11.0-15.0 [facility] Comment on above: Performed By: #### C PEDRO ####[facility] [address] [address]Dr. Bella Jerome SEG # 16.05 103/ul Critically high 1.40-6.50 [facility] Comment on above: Performed By: #### C BCRELL ####[facility] [address] [address]Dr. Bella Jerome SEG % 75.0 % Normal 43.0-75.0 [facility] Comment on above: Performed By: #### C BCMAN ####[facility] [address] [address]DrWill Jerome WBC 21.4 103/ul Critically high 4.0-11.0 [facility] Comment on above: Performed By: #### C PEDRO ####[facility] [address] [address]DrWill Jerome CBC AUTO DIFFon 09-05-2022 BASO # 0.0 103/ul Normal 0.0-0.1 [facility] Comment on above: Performed By: #### C BC #### [facility] [address] [address] [address] Bella Jerome Basophils/100 WBC (Bld) 0.2 % Normal 0.2-2.0 [facility] Comment on above: Performed By: #### C BC #### [facility] [address] [address] [address] Bella Jerome EO # 0.1 103/ul Normal 0.0-0.7 [facility] Comment on above: Performed By: #### C BC #### [facility] [address] [address] [address] Bella Jerome Eosinophils/100 WBC (Bld) 0.6 % Critically low 0.9-7.0 [facility] Comment on above: Performed By: #### C BC #### [facility] [address] [address] [address] Bella Jerome Erythrocyte distribution width (RBC) [Ratio] 12.6 % Normal 11.0-15.0 [facility] Comment on above: Performed By: #### C BC #### [facility] [address] [place] [address] Dr. Bella Jerome Hematocrit (Bld) [Volume fraction] 32.5 % Critically low 36.0-48.0 [facility] Comment on above: Performed By: #### C BC #### [facility] [address] [place] [address] Dr. Bella Jerome Hemoglobin (Bld) [Mass/Vol] 11.1 g/dL Critically low 12.0-16.0 [facility] Comment on above: Performed By: #### C BC #### [facility] [address] [place] [address] Dr. Bella Jerome IG # 0.14 10e3/ul Critically high 0.00-0.03 [facility] Comment on above: Performed By: #### C BC #### [facility] [address] [place] [address] Dr. Bella Jerome IG % 1.1 % Critically high 0.0-0.5 [facility] Comment on above: Performed By: #### C BC #### [facility] [address] [place] [address] Dr. Bella Jerome LYMPH # 2.6 103/ul Normal 1.2-3.8 [facility] Comment on above: Performed By: #### C BC #### [facility] [address] [place] [address] Dr. Bella Jerome Lymphocytes/100 WBC (Bld) 20.2 % Critically low 20.5-60.0 [facility] Comment on above: Performed By: #### C BC #### [facility] [address] [place] [address] Dr. Bella Jerome MANUAL DIFF REQ NO Normal [facility] Comment on above: Performed By: #### C BC #### [facility] [address] [place] [address] Dr. Bella Jerome MCH (RBC) [Entitic mass] 32.2 pg Normal 26.7-34.0 [facility] Comment on above: Performed By: #### C BC #### [facility] [address] [place] [address] Dr. Bella Jerome MCHC (RBC) [Mass/Vol] 34.2 g/dL Normal 29.9-35.2 [facility] Comment on above: Performed By: #### C BC #### [facility] [address] [place] [address] Dr. Bella Jerome MCV (RBC) [Entitic vol] 94.2 fL Normal 81.0-99.0 [facility] Comment on above: Performed By: #### C BC #### [facility] [address] [place] [address] Dr. Bella Jerome MONO # 0.9 103/ul Critically high 0.3-0.8 [facility] Comment on above: Performed By: #### C BC #### [facility] [address] [place] [address] Dr. Bella Jerome Monocytes/100 WBC (Bld) 7.1 % Normal 1.7-12.0 [facility] Comment on above: Performed By: #### C BC #### [facility] [address] [place] [address] Dr. Bella Jerome NEUT # 8.9 103/ul Critically high 1.4-6.5 [facility] Comment on above: Performed By: #### C BC #### [facility] [address] [place] [address] Dr. Bella Jerome Neutrophils/100 WBC (Bld) 70.8 % Normal 43.0-75.0 [facility] Comment on above: Performed By: #### C BC #### [facility] [address] [place] [address] Dr. Bella Jerome Platelet mean volume (Bld) [Entitic vol] 11.0 fL Normal 9.5-13.5 [facility] Comment on above: Performed By: #### C BC #### [facility] [address] [place] [address] Dr. Bella Jerome PLT 234 103/ul Normal 150-450 [facility] Comment on above: Performed By: #### C BC #### [facility] [address] [place] [address] Dr. Bella Jerome RBC 3.45 106/ul Critically low 4.20-5.40 [facility] Comment on above: Performed By: #### C BC #### [facility] [address] [place], [place] [address] Dr. Bella Jerome WBC 12.6 103/ul Critically high 4.0-11.0 [facility] Comment on above: Performed By: #### C BC #### [facility] [address] [place], [place] [address] Dr. Bella Jerome Covid-19 PCR (CVDTB)on SARS-CoV-2 (COVID-19) RNA FAVIAN+probe Ql (Unsp spec) Not detected Normal NOT DETECTED [facility] Comment on above: Result Comment: [...] for this test is supported by the [place] of Health and Human Service's declaration that [...] used). Performed By: #### C VDTBH ####[facility] [address] [place], [place] [address]Og. Bella Jerome DRUG SCREEN RAPID (URINE)on 09-05-2022 AMP Negative Normal NEGATIVE [facility] Comment on above: Performed By: #### D RUGRPD ####[facility] [address] [place], [place] [address]BuWill Jerome BAR Negative Normal NEGATIVE [facility] Comment on above: Performed By: #### D RUGRPD ####[facility] [address] [place], [place] [address]Dr. Bella Jerome BUP Negative Normal NEGATIVE [facility] Comment on above: Performed By: #### D RUGRPD ####[facility] [address] [place], [place] [address]Dr. Liwally Jerome BZO Negative Normal NEGATIVE [facility] Comment on above: Performed By: #### D RUGRPD ####[facility] [address] [place], [place] [address]Dr. Liwally Jerome NGA Negative Normal NEGATIVE [facility] Comment on above: Performed By: #### D RUGRPD ####[facility] [address] [place], [place] [address]Dr. Bella Jerome CUT-OFFS SEE BELOW Normal [facility] [...] ng/mL Performed By: #### D RUGRPD ####[facility] [address] [place], [place] [address]Dr. Bella Jerome DRUG CUT HEADER DRUG CLASS TEST SYSTEM CUT-OFF CONCENTRATIONS ARE FOLLOWS: Normal [facility] Comment on above: Performed By: #### D RUGRPD ####[facility] [address] [place], [place] [address]Dr. Bella Jerome mAMP Negative Normal NEGATIVE [facility] Comment on above: Performed By: #### D RUGRPD ####[facility] [address] [place], [place] [address]Dr. Bella Jerome MTD Negative Normal NEGATIVE [facility] Comment on above: Performed By: #### D RUGRPD ####[facility] [address] [id number]. Bella Jerome OPI Negative Normal NEGATIVE [facility] Comment on above: Performed By: #### D RUGRPD ####[facility] [address] [id number]. Yiwally Jerome OXY Negative Normal NEGATIVE [facility] Comment on above: Performed By: #### D RUGRPD ####[facility] [address] [address]Dr. Yiwally Jerome PCP Negative Normal NEGATIVE [facility] Comment on above: Performed By: #### D RUGRPD ####[facility] [address] [address]Dr. Bella Jerome PPX Negative Normal NEGATIVE [facility] Comment on above: Performed By: #### D RUGRPD ####[facility] [address] [address]Dr. Yiwally Jerome TCA Negative Normal NEGATIVE [facility] Comment on above: Performed By: #### D RUGRPD ####[facility] [address] [address]Dr. Bella Jerome THC Negative Normal NEGATIVE [facility] Comment on above: Performed By: #### D RUGRPD ####[facility] [address] [place], [place] [address]Dr. Bella Jerome TYPE AND SCREENon 09-05-2022 TYPE AND SCREEN Negative Normal [facility] Comment on above: Performed By: #### T NS ####[facility] [address] [place], [place] [address]Dr. Bella Jerome US PREG BIOPHY W NON [...] by: MANUELITO GREGG Date: 2022-08-31 17:06 Normal [facility] US PREG GROWTHon 08-30-2022 US [...] by: MANUELITO GREGG Date: 2022-08-30 17:59 Normal [facility] US PREG BIOPHY W NON [...] by: MANUELITO GREGG Date: 2022-08-24 17:10 Normal [facility] FREE T4on 08-21-2022 Free T4 [Mass/Vol] 0.90 ng/dL Normal 0.76-1.46 [facility] Comment on above: Performed By: #### C BC #### [facility] [address] [place], [place] [address] Dr. Bella Jerome TSHon 08-21-2022 TSH 1.033 uIU/mL Normal 0.358-3.740 [facility] Comment on above: Performed By: #### H H #### [facility] [address] [address] [address] Bella Jerome US PREG BIOPHY W [...] MANUELITO GREGG Date: 2022-08-17 18:33 Normal [facility] GROUP B STREP CULTUREon 07-28 S. agalactiae Ag Ql (Unsp spec) Culture Observations: NEGATIVE FOR GROUP B STREPTOCOCCUS. Normal [facility] Comment on above: Performed By: #### G BSCX ####[facility] [address] [address]Dr. Bella Jerome US PREG BIOPHY W NON [...] by: MANUELITO GREGG Date: 2022-08-10 16:36 Normal [facility] PREG GROWTHon 08-10-2022 US PREG GROWTH [...] by: MANUELITO GREGG Date: 2022-08-10 16:37 Normal [facility] PREG GROWTHon 07-25-2022 US PREG GROWTH [...] GREGG Date: 2022-07-25 18:18 Normal [facility] FREE T4on 07-24-2022 Free T4 [Mass/Vol] 0.98 ng/dL Normal 0.76-1.46 [facility] Comment on above: Performed By: #### F T4 #### [facility] [address] [address] [address] Bella Jerome TSHon 07-24-2022 TSH 1.196 uIU/mL Normal 0.358-3.740 [facility] Comment on above: Performed By: #### T SH ####[facility] Iv[address]cmjc[address]32 [place] [address]Dr. Bella Jermoe UA (CLEAN/CATCH) [employer] PROFESSIONAL/MICRO I F IND.on 07-20-2022 Bilirubin Ql (U) Negative Normal NEGATIVE [facility] Comment on above: Performed By: #### H H #### [facility] [address] [place] [address] Dr. Bella Jerome Clarity (U) CLEAR Normal CLEAR [facility] Comment on above: Performed By: #### H H #### [facility] [address] [place] [address] Dr. Bella Jerome Color (U) LT. YELLOW Normal YELLOW [facility] Comment on above: Performed By: #### H H #### [facility] [address] [address] [address] Bella Jerome Glucose Ql (U) Negative Normal NEGATIVE [facility] Comment on above: Performed By: #### H H #### [facility] [address] [address] [address] Bella Jerome Hemoglobin Ql (U) Negative Normal NEGATIVE The [facility] Comment on above: Performed By: #### H H #### [facility] [address] [place] [address] Dr. Bella Jerome Ketones Ql (U) Negative Normal NEGATIVE [facility] Comment on above: Performed By: #### H H #### [facility] [address] [address] [address] Bella Jerome LEUKOCYTES Negative Normal NEGATIVE [facility] Comment on above: Performed By: #### H H #### [facility] [address] [place] [address] Dr. Bella Jerome Nitrite Ql (U) Negative Normal NEGATIVE [facility] Comment on above: Performed By: #### H H #### [facility] [address] [address] [address] Bella Jerome pH (U) 7.0 [pH] Normal 5-9 [facility] Comment on above: Performed By: #### H H #### [facility] [address] [place] [address] Dr. Bella Jerome SPEC GRAVITY <=1.005 Abnormal 1.005-<=1.025 [facility] Comment on above: Performed By: #### H H #### [facility] [address] [place] [address] Dr. Bella Jerome UA PROTEIN Negative Normal NEGATIVE/ TRACE [facility] Comment on above: Performed By: #### H H #### [facility] [address] [place] [address] Dr. Bella Jerome UR MICRO IND NOT INDICATED Normal [facility] Comment on above: Performed By: #### H H #### [facility] [address] [place] [address] Dr. Bella Jerome Urobilinogen Qn (U) 0.2 {Kimberlee'U}/dL Normal 0.2 - 1. 0 [facility] Comment on above: Performed By: #### H H #### [facility] [address] [place] [address] Dr. Bella Jerome US PREG GROWTHon 06-27-2022 [...] by: RAGINI SANTOS Date: 2022-06-27 16:23 Normal [facility] FREE T4on 06-20-2022 Free T4 [Mass/Vol] 0.82 ng/dL Normal 0.76-1.46 [facility] Comment on above: Performed By: #### H H #### [facility] [address] [place] [address] Dr. Bella Jerome GLUCOSE - 1HRon 06-20-2022 Glucose [Mass/Vol] 127 mg/dL Critically high 74-106 [facility] Comment on above: Performed By: #### H H #### [facility] [address] [address] [address] Bella Jerome HEMOGRAM AND PLATELon 2021 Hematocrit (Bld) [Volume fraction] 32.4 % Critically low 36.0-48.0 [facility] Comment on above: Performed By: #### H H #### [facility] [address] [address] [address] Bella Jerome Hemoglobin (Bld) [Mass/Vol] 10.9 g/dL Critically low 12.0-16.0 [facility] Comment on above: Performed By: #### H H #### [facility] [address] [place] [address] Dr. Bella Jerome MCH (RBC) [Entitic mass] 32.9 pg Normal 26.7-34.0 [facility] Comment on above: Performed By: #### H H #### [facility] [address] [place] [address] Dr. Bella Jerome MCHC (RBC) [Mass/Vol] 33.6 g/dL Normal 29.9-35.2 [facility] Comment on above: Performed By: #### H H #### [facility] [address] [place] [address] Dr. Bella Jerome MCV (RBC) [Entitic vol] 97.9 fL Normal 81.0-99.0 [facility] Comment on above: Performed By: #### H H #### [facility] [address] [address] [address] Bella Jerome PLT 241 103/ul Normal 150-450 [facility] Comment on above: Performed By: #### H H #### [facility] [address] [place] [address] Dr. Bella Jerome RBC 3.31 106/ul Critically low 4.20-5.40 [facility] Comment on above: Performed By: #### H H #### [facility] [address] [address] [address] Bella Jerome WBC 11.3 103/ul Critically high 4.0-11.0 [facility] Comment on above: Performed By: #### H H #### [facility] [address] [place] [address] Dr. Bella Jerome TSHon 06-20-2022 TSH 3.044 uIU/mL Normal 0.358-3.740 [facility] Comment on above: Performed By: #### C BC #### [facility] [address] [place] [address] Dr. Bella Jerome US PREG INCOMPLETE ANATOMYon 05-24-2022 US PREG INCOMPLETE ANATOMY EXAMINATION: US PREG INCOMPLETE ANATOMY HISTORY: screening COMPARISON: Ultrasound anatomy 04/26/2022 FINDINGS: Presentation: Cephalic Heart rate: 154 bpm Anatomy: Cervical, thoracic, and lumbar spine HERNANDO: 09/13/2022 IMPRESSION: 1. Adequate visualization of the cervical, thoracic, and lumbar spine; no appreciable abnormality. Electronically authenticated by: RAGINI SANTOS Date: 2022-05-24 17:33 Normal [facility] US PREG ANATOMY SINGLEon 06- 30-2022 [...] GREGG Date: 2022-04-26 16:54 Normal [facility] CHLAMYDIA/GONOCOCCUS FAVIAN (SW AB/URINE/PAPon 04-19-2022 Chlamydia trachomatis, FAVIAN Negative Normal Negative [facility] Comment on above: Performed By: #### C T/NGNA ####[facility] [address] [place] [address]DrWill Jerome Neisseria gonorrhoeae, FAVIAN Negative Normal Negative [facility] Comment on above: Performed By: #### C T/NGNA ####[facility] [address] [place] [address]Dr. Bella Jerome VAGINITIS/VAGINOSIS DNA PROB Leonid 04-18-2022 Jessica species Negative Normal Negative [facility] Comment on above: Performed By: #### H H #### [facility] [address] [place] [address] Dr. Bella Jerome Gardnerella vaginalis Negative Normal Negative [facility] Comment on above: Performed By: #### H H #### [facility] [address] [address] [address] Bella Jerome Trichomonas vaginalis Negative Normal Negative [facility] Comment on above: Performed By: #### H H #### [facility] [address] [address] [address] Bella Jerome FREE T4on 04-05-2022 Free T4 [Mass/Vol] 0.88 ng/dL Normal 0.76-1.46 The [facility] Comment on above: Performed By: #### F T4 #### [facility] [address] [place] [address] Dr. Bella Jerome TSHon 04-05-2022 TSH 1.786 uIU/mL Normal 0.358-3.740 [facility] Comment on above: Performed By: #### T SH ####[facility] [id number] [place] [address]Dr. Bella Jerome TSH RANGE SEE BELOW Normal [facility] Comment on above: Result Comment: <0.3 4 UIU/ml HYPERTHYROID 0.34-5.60 UIU/ml EUTHYROID >5.60 UIU/ml HYPOTHYROID Performed By: #### T SH ####[facility] [address] [place] [address]Dr. Bella Jerome FREE T4on 02-26-2022 Free T4 [Mass/Vol] 1.06 ng/dL Normal 0.76-1.46 The [facility] Comment on above: Performed By: #### C BC #### [facility] [address] [place] [address] Dr. Bella Jerome TSHon 02-26-2022 TSH 2.024 uIU/mL Normal 0.470-4.680 [facility] Comment on above: Performed By: #### C BC #### [facility] [address] [place], [place] [address] Dr. Bella Jerome TSH RANGE SEE BELOW Normal [facility] Comment on above: Result Comment: <0.3 4 UIU/ml HYPERTHYROID 0.34-5.60 UIU/ml EUTHYROID >5.60 UIU/ml HYPOTHYROID Performed By: #### C BC #### [facility] [address] [place], [place] [address] Dr. Bella Jerome Vital Signs Date Time Vital Sign Value Performing Clinician Facility 08-18-2024 13:50-0400 Body mass index (BMI) [Ratio] 43.54 kg/m2 Agus Marquita DO Work Phone: [facility] 08-18-2024 13:50-0400 Body weight 111.49 kg Agus Marquita DO Work Phone: [facility] 08-18-2024 13:50-0400 Diastolic blood pressure 74 mm[Hg] Agus Marquita DO Work Phone: [facility] 08-18-2024 13:50-0400 Systolic blood pressure 118 mm[Hg] Agus Marquita DO Work Phone: [facility] 08-04-2024 13:30-0400 Body mass index (BMI) [Ratio] 44.37 kg/m2 Marylou CARBAJAL Work Phone: [facility] 08-04-2024 13:30-0400 Body weight 113.63 kg Marylou CARBAJAL Work Phone: [facility] 08-04-2024 13:30-0400 Diastolic blood pressure 78 mm[Hg] Marylou CARBAJAL Work Phone: [facility] 08-04-2024 13:30-0400 Systolic blood pressure 128 mm[Hg] Marylou CARBAJAL Work Phone: [facility] 02-13-2024 11:24-0400 Body height 160.02 cm [facility] 02-13-2024 11:24-0400 Body mass index (BMI) [Ratio] 42.3 kg/m2 [facility] 02-13-2024 11:24-0400 Body weight 108.49 kg [facility] 02-13-2024 11:24-0400 Diastolic blood pressure 70 mm[Hg] [facility] 02-13-2024 11:24-0400 Heart rate 69 /min [facility] 02-13-2024 11:24-0400 Respiratory rate 18 /min [facility] 02-13-2024 11:24-0400 SaO2% (BldA) [Mass fraction] 98 % [facility] 02-13-2024 11:24-0400 Systolic blood pressure 118 mm[Hg] [facility] 10-31-2023 15:00-0500 Body height 160.02 cm Sandra Austin Other [facility] Other 10-31-2023 15:00-0500 Body mass index (BMI) [Ratio] 45.41 kg/m2 Sandra Austin Other [facility] Other 10-31-2023 15:00-0500 Body temperature 98.5 [degF] Sandra Austin Other [employer] [facility] Other 10-31-2023 15:00-0500 Body weight 116.3 kg Sandra Austin Other [employer] [facility] Other 10-31-2023 15:00-0500 Diastolic blood pressure 80 mm[Hg] Sandra Austin Other [employer] [facility] Other 10-31-2023 15:00-0500 Respiratory rate 18 /min Sandra Austin Other [employer] [facility] Other 10-31-2023 15:00-0500 SaO2% (BldA) [Mass fraction] 98 % Sandra Austin Other [employer] Other 10-31-2023 15:00-0500 Systolic blood pressure 128 mm[Hg] Sandra Austin Other [employer] Other 06-24-2023 14:30-0400 Body height 160.02 cm Sandra Austin Other [employer] Other 06-24-2023 14:30-0400 Body mass index (BMI) [Ratio] 44.87 kg/m2 Sandra Austin Other [employer] Other 06-24-2023 14:30-0400 Body weight 114.9 kg Sandra Austin Other [employer] Other 06-24-2023 14:30-0400 Diastolic blood pressure 60 mm[Hg] Sandra Austin Other [employer] Other 06-24-2023 14:30-0400 Respiratory rate 18 /min Sandra Austin Other [employer] Other 06-24-2023 14:30-0400 SaO2% (BldA) [Mass fraction] 99 % Sandra Austin Other [employer] Other 06-24-2023 14:30-0400 Systolic blood pressure 110 mm[Hg] Sandra Austin Other [employer] Other 04-15-2023 09:25-0400 Body height 160.02 cm Ramonita Greenberg Other [employer] Other 04-15-2023 09:25-0400 Body mass index (BMI) [Ratio] 41.8 kg/m2 Ramonita Greenberg Other [employer] Other 04-15-2023 09:25-0400 Body temperature 98.5 [degF] Ramonita Greenberg Other [employer] Other 04-15-2023 09:25-0400 Body weight 107.05 kg Ramonita rGeenberg Other [employer] Other 04-15-2023 09:25-0400 Respiratory rate 18 /min Ramonita Greenberg Other [employer] Other 04-15-2023 09:25-0400 SaO2% (BldA) [Mass fraction] 97 % Ramonita Greenberg Other [employer] Other 02-21-2023 14:45-0400 Body height 160.02 cm Sandra Austin Other [employer] Other 02-21-2023 14:45-0400 Body mass index (BMI) [Ratio] 41.39 kg/m2 Sandra Austin Other [employer] Other 02-21-2023 14:45-0400 Body weight 106.01 kg Sandra Austin Other [employer] Other 02-21-2023 14:45-0400 Diastolic blood pressure 60 mm[Hg] Sandra Austin Other [employer] Other 02-21-2023 14:45-0400 Respiratory rate 18 /min Sandra Austin Other [employer] Other 02-21-2023 14:45-0400 SaO2% (BldA) [Mass fraction] 98 % Sandra Austin Other [employer] Other 02-21-2023 14:45-0400 Systolic blood pressure 110 mm[Hg] Sandra Austin Other [employer] Other 12-24-2022 14:30-0500 Body height 160.02 cm Sandra Austin Other [employer] Other 12-24-2022 14:30-0500 Body mass index (BMI) [Ratio] 40.83 kg/m2 Sandra Austin Other [employer] Other 12-24-2022 14:30-0500 Body weight 104.55 kg Sandra Austin Other [employer] Other 12-24-2022 14:30-0500 Diastolic blood pressure 70 mm[Hg] Sandra Austin Other [employer] Other 12-24-2022 14:30-0500 Respiratory rate 18 /min Sandra Austin Other [employer] Other 12-24-2022 14:30-0500 SaO2% (BldA) [Mass fraction] 99 % Sandra Austin Other [employer] Other 12-24-2022 14:30-0500 Systolic blood pressure 118 mm[Hg] Sandra Austin Other [employer] Other 12-21-2021 16:30-0500 Body height 160.02 cm Sandra Austin Other [employer] Other 12-21-2021 16:30-0500 Body mass index (BMI) [Ratio] 38.58 kg/m2 Sandra Austin Other [employer] Other 12-21-2021 16:30-0500 Body temperature 97.3 [degF] Sandra Austin Other [employer] Other 12-21-2021 16:30-0500 Body weight 98.79 kg Sandra Austin Other [employer] Other 12-21-2021 16:30-0500 Diastolic blood pressure 60 mm[Hg] Sandra Austin Other [employer] Other 12-21-2021 16:30-0500 Respiratory rate 18 /min Sandra Austin Other [employer] Other 12-21-2021 16:30-0500 SaO2% (BldA) [Mass fraction] 99 % Sandra Austin Other [employer] Other 12-21-2021 16:30-0500 Systolic blood pressure 118 mm[Hg] Sandra Austin Other [employer] Other Encounters Encounter Date Encounter Type Care Provider Facility Start: 08-18-2024 End: 08-18-2024 Bamboo flowsheet Agus Marquita DO Work Phone: [facility] Start: 08-18-2024 End: 08-18-2024 Bamboo flowsheet Agus Marquita DO Work Phone: [facility] Start: 08-18-2024 End: 08-18-2024 flow sheet Agus Marquita DO Work Phone: [facility] Comment on above: 34 weeks gestation o f ; Nausea and vomiting, unspecified vomiting type; Gastroesophageal reflux disease, unspecified whether esophagitis present; Heartburn during in third trimester Start: 08-04-2024 End: 08-04-2024 Bamboo flowsheet Marylou CARBAJAL Work Phone: [facility] Start: 08-04-2024 End: 08-04-2024 Bamboo flowsheet Marylou CARBAJAL Work Phone: [facility] Start: 08-04-2024 End: 08-04-2024 ambulatory MARYLOU PRIEST Not Available Start: 08-04-2024 End: 08-04-2024 flow sheet Marylou CARBAJAL Work Phone: [facility] Comment on above: 32 weeks gestation o f ; Third trimester ; Anxiety, generalized ([facility] Start: 07-21-2024 End: 07-21-2024 ambulatory AGUS MARQUITA [...] Not Available Start: 02-13-2024 End: 02-13-2024 ambulatory [facility] Work Phone: Start: 02-13-2024 End: 02-13-2024 Patient encounter procedure [facility] Physician [facility] Work Phone: Start: 12-16-2023 Non-patient / Non-visit [facility] Physician [facility] Work Phone: Start: 12-16-2023 End: 12-16-2023 ambulatory AGUS JUÁREZ Not Available Start: 10-31-2023 End: 10-31-2023 ambulatory Sandra Geovanna Other [employer] Other Start: 10-31-2023 Office outpatient vi sit 25 minutes Sandra Austin [facility] Start: 07-19-2023 End: 07-19-2023 ambulatory Sandra Geovanna Other [employer] Other Start: 07-19-2023 Telephone encounter Sandra Guevara [facility] Start: 06-24-2023 End: 06-24-2023 ambulatory Sandra Geovanna Other [employer] Other Start: 06-24-2023 Office outpatient vi sit 25 minutes Sandra Austin [facility] Start: 06-04-2023 End: 06-04-2023 ambulatory Sandra Geovanna Other [employer] Other Start: 06-04-2023 Telephone encounter Sandra Guevara [facility] Start: 04-15-2023 End: 04-15-2023 ambulatory Ramonita Greenberg Other [employer] Other Start: 04-15-2023 Office outpatient vi sit 15 minutes Ramonita Greenberg [facility] Start: 04-11-2023 End: 04-11-2023 ambulatory Sandra Austin Other [employer] Other Start: 04-11-2023 Telephone encounter Sandra Austin [facility] Start: 02-21-2023 Office outpatient vi sit 25 minutes Sandra Austin [facility] Start: 02-21-2023 End: 02-22-2023 ambulatory SANDRA AUSTIN [employer] Other Start: 01-04-2023 End: 01-04-2023 ambulatory Sandra Austin Other [employer] Other Start: 01-04-2023 Telephone encounter Sandra Guevara [facility] Start: 12-30-2022 Encounter for genera l adult medical examination without abnormal findings SANDRA AUSTIN [facility] Start: 12-27-2022 End: 12-27-2022 ambulatory Sandra Austin Other [employer] Other Start: 12-27-2022 Telephone encounter Sandra Guevar[facility] Start: 12-26-2022 End: 12-27-2022 ambulatory SANDRA AUSTIN Facility:[facility] Start: 12-26-2022 End: 12-27-2022 Encounter for general adult medical examination without abnormal findings SANDRA AUSTIN Facility:[facility] Start: 12-24-2022 End: 12-24-2022 ambulatory Sandra Austin Other [employer] Other Start: 12-24-2022 Encounter for genera l adult medical examination without abnormal findings Sandra Austin [facility] Start: 12-24-2022 Periodic preventive med est patient 18-39 yrs Sandra Austin [facility] Start: 12-10-2022 End: 12-10-2022 ambulatory [...] 12-21-2021 End: 12-21-2021 ambulatory Sandra Kaple Other [employer] Other Start: 12-21-2021 Office outpatient ne w 45 minutes Sandra Austin [facility] Procedures Date Procedure Procedure Detail Performing Clinician [...] EST Office Visit [facility] [address] [place] [id number] Agus Juárez, DO [address] [place] [address] [facility] Start: 09-01-2024 End: 09-01-2024 Patient encounter procedure 09/01/2024 1:30 PM EST Routine [facility] [address] [place] [id number] Agus Juárez, DO [address] [place] [address] [facility] Start: 08-18-2024 End: 08-18-2024 Patient encounter procedure 08/18/2024 1:30 PM EDT Routine [facility] [address] [place] [id number] Agus Juárez, DO [address] [place] [place], [place] [id number] [facility] Start: 08-18-2024 End: 08-18-2024 Professional / ancillary services management 08/18/2024 1:00 PM EDT Ancillary Procedure [facility] [address] [place] [address] [facility] Patient Education Low back pain in adults [facility] Work Phone: Immunizations Immunization Date Immunization Notes Care Provider Fa cility 09-08-2022 diphtheria, tetanus toxoids and pertussis vaccine Marylou CARBAJAL Work Phone: [facility] 09-12-2021 pneumococcal conjuga te vaccine, 13 valent Marylou CARBAJAL Work Phone: [facility] 08-14-1999 diphtheria, tetanus toxoids and acellular pertussis vaccine, unspecified formulation Marylou CARBAJAL Work Phone: [facility] 08-14-1999 haemophilus influenz ae type b vaccine, HbOC conjugate Marylou CARBAJAL Work Phone: [facility] 08-14-1999 measles, mumps and rubella virus vaccine Marylou CARBAJAL Work Phone: [facility] 08-14-1999 trivalent poliovirus vaccine, live, oral Marylou CARBAJAL Work Phone: [facility] 04-27-1998 diphtheria, tetanus toxoids and acellular pertussis vaccine, unspecified formulation Marylou CARBAJAL Work Phone: [facility] 04-27-1998 haemophilus influenz ae type b conjugate and Hepatitis B vaccine Marylou CARBAJAL Work Phone: [facility] 1997 diphtheria, tetanus toxoids and acellular pertussis vaccine, unspecified formulation Marylou CARBAJAL Work Phone: [facility] 1997 haemophilus influenz ae type b vaccine, HbOC conjugate Marylou CARBAJAL Work Phone: [facility] 1997 poliovirus vaccine, inactivated Marylou CARBAJAL Work Phone: [facility] 1997 diphtheria, tetanus toxoids and acellular pertussis vaccine, unspecified formulation Marylou CARBAJAL Work Phone: [facility] 1997 haemophilus influenz ae type b conjugate and Hepatitis B vaccine Mraylou CARBAJAL Work Phone: [facility] 1997 poliovirus vaccine, inactivated Marylou CARBAJAL Work Phone: [facility] 1997 hepatitis B vaccine, pediatric or pediatric/adolescent dosage Marylou CARBAJAL Work Phone: [facility] Healthcare Payers Date Payer Category Payer Private Health Insurance [employer] [id number] 2023 Unknown [employer] [id number] 2023-Present [address] [place] [address] [id number] 2023 Unknown [id number] 2.16.840.1.262316.19 1997 Unknown [id number] 2.16.840.1.852982.3.579.2. 593 1997 Unknown [id number] 2.16.840.1.095899.3.579.2. 593 1997 Unknown [id number] 2.16.840.1.648665.3.579.2. 593 1997 Unknown [id number] 2.16.840.1.470628.3.579.2. 593 1997 Unknown [id number] 2.16.840.1.789357.3.579.2. 593 1997 Unknown [id number] 2.16.840.1.716174.3.579.2. 593 1997 Unknown [id number] 2.16.840.1.333008.3.579.2. 593 1997 Unknown [id number] 2.16.840.1.122444.3.579.2. 593 1997 Unknown [id number] 2.16.840.1.404924.3.579.2. 593 1997 Unknown [id number] 2.16.840.1.692362.3.579.2. 593 1997 Unknown [id number] 2.16.840.1.884182.3.579.2. 593 1997 Unknown [id number] 2.16.840.1.023110.3.579.2. 593 1997 Unknown [id number] 2.16.840.1.535166.3.579.2. 593 1997 Unknown [id number] 2.16.840.1.829705.3.579.2. 593 1997 Unknown [id number] 2.16.840.1.509345.3.579.2. 593 1997 Unknown [id number] 2.16.840.1.447852.3.579.2. 593 1997 Unknown [id number] 2.16.840.1.418020.3.579.2. 593 1997 Unknown [id number] 2.16.840.1.877602.3.579.2. 593 1997 Unknown [id number] 2.16.840.1.953078.3.579.2. 593 1997 Unknown [id number] 2.16.840.1.183884.3.579.2. 593 1997 Unknown [id number] 2.16.840.1.406758.3.579.2. 593 1997 Unknown [id number] 2.16.840.1.011916.3.579.2. 593 1997 Unknown [id number] 2.16.840.1.833529.3.579.2. 593 1997 Unknown [id number] 2.16.840.1.542625.3.579.2. 1259 1997 Unknown [id number] 2.16.840.1.694555.3.579.2. 9 1997 Unknown [id number] 2.16.840.1.273196.3.579.2. 9 1997 Unknown [id number] 2.16.840.1.176752.3.579.2. 1259 1997 Unknown [id number] 2.16.840.1.808056.3.579.2. 9 1997 Unknown [id number] 2.16.840.1.366693.3.579.2. 9 1997 Unknown [id number] 2.16.840.1.690669.3.579.2. 1258 1997 Unknown [id number] 2.16.840.1.123855.3.579.2. 9 1997 Unknown [id number] 2.16.840.1.997552.3.579.2. [id number] 1957 Medicaid [id number] 1957 Private Health Insurance [id number] Self-pay Self Pay [id number] Unknown Vashon [id number] Social History Date Type Detail Facility Start: 08-02-2023 End: 11-25-[address] [facility] Other Start: 1995 Sex Assigned At Female F [facility] Start: 08-02-2023 Tobacco smoking stat us NHIS Never smoked tobacco [facility] Start: 08-02-2023 Tobacco use and exposure Smokeless tobacco non-user [facility] Start: 07-21-2024 End: 08-04-2024 Alcoholic beverage intake Ex-drinker (finding) [facility] Start: 08-02-2023 End: 11-25-2023 History of Social function [facility] Start: 01-03-2024 [facility] Start: 1995 Sex assigned at Not on file [facility] Clinical Notes 12-21-2021 to 08-18-2024 Justine [...] before breakfast, Do not crush or chew. [id number]-[id number] ( 1 + IRON PO) Oral ALLERGIES [...] nursing note reviewed. Exam conducted with a bead inspector present. Vitals: Estimated body mass index is [...] Agus Juárez DO documented in this encounter [facility] 08-04-2024 History of Presen t illness [...] before breakfast, Do not crush or chew. [id number] ( 1 + IRON PO) Oral ALLERGIES [...] of: SOLOMON Turner documented in this encounter [facility] 10-31-2023 Evaluation note Encounter Date Diagnosis [...] E28.2) She will continue to follow with OB-COMM[employer] CONTR[employer] SYSTEMS INTEGRATOR and continue healthy lifestyle changes that she [...] course of antibiotic. Increase fluids and rest. [id number] antipyretics as needed. Warning signs and symptoms reviewed with patient today. Patient to go immediately to the ER should she experience any of these. Patient to notify office should her symptoms persist and not improve. Patient verbalizes understanding and agrees to treatment plan. [facility] Other 09-22-2023 Evaluation note* Encounter Date Diagnosis Assessment Notes Treatment Notes Treatment Clinical Notes Jun, Vitamin D insufficiency (ICD-10 - E55.9) [facility] 08-28-2023 Evaluation note* Encounter Date Diagnosis [...] E28.2) She will continue to follow with OB-COMMAND AND CONTROL SYSTEMS INTEGRATOR and continue healthy lifestyle changes that she [...] ENT today. Specialty notes reviewed as received. [facility] Other 08-08-2023 Evaluation note* Encounter Date Diagnosis Assessment Notes Treatment Notes Treatment Clinical Notes May, Other atopic dermatitis (ICD-10 - L20.89) May, Acute otitis externa of both ears, unspecified type (ICD-10 - H60.503) [facility] Other 06-19-2023 Evaluation note* Encounter Date Diagnosis [...] no improvement in 2 to 3 days [facility] Other 06-15-2023 Evaluation note* Encounter Date Diagnosis Assessment Notes Treatment Notes Treatment Clinical Notes Mar, Anxiety (ICD-10 - F41.9) [facility] Other 04-27-2023 Evaluation note* Encounter Date Diagnosis [...] plan on rechecking this at May appointment. [facility] Other 03-10-2023 Evaluation note* Encounter Date Diagnosis Assessment Notes Treatment Notes Treatment Clinical Notes Dec, Bacterial conjunctivitis (ICD-10 - H10.9) [facility] Other 03-02-2023 Evaluation note* Encounter Date Diagnosis Assessment Notes Treatment Notes Treatment Clinical Notes Dec, Vitamin D insufficiency (ICD-10 - E55.9) Dec, Elevated alkaline phosphatase level (ICD-10 - R74.8) Dec, Other specified hypothyroidism (ICD-10 - E03.8) [facility] Other 02-27-2023 Evaluation note* Encounter Date Diagnosis [...] ordered. Follow routinely with eye doctor, dentist, [employer] CONTR[employer] SYSTEMS INTEGRATOR. Patient is advised to work on healthy diet choices and appropriate servings, weight control, regular exercise as directed, reduced fat intake, and salt avoidance. Patient voiced understanding of this and agrees to this plan. Nov, PCOS (polycystic ovarian syndrome) (ICD-10 - E28.2) Routine lab work ordered. She will continue to follow with OB-COMM[employer] AND CONTROL SYSTEMS INTEGRATOR and continue healthy lifestyle changes that she [...] homicidal ideations. Started on Celexa by her COMMAND AND CONTROL SYSTEMS INTEGRATOR. Very stable on Celexa 20 mg daily. [...] her ears still persist after starting this. [facility] Other 02-24-2022 Evaluation note* Encounter Date Diagnosis Assessment Notes Treatment Notes Treatment Clinical Notes Nov, Prediabetes (ICD-10 - R73.03) She was recently dx with prediabetes and was started on Metformin 500 mg BID 2 weeks ago by her OB-COMM[employer] AND CONTROL SYSTEMS INTEGRATOR. She would like to follow with our [...] - E28.2) She is following with her OB-COMM[employer] AND CONTROL SYSTEMS INTEGRATOR for her PCOS and is currently on Metformin 500 mg BID and is taking medication to help her get . She will continue to follow with OB-COMM[employer] AND CONTROL SYSTEMS INTEGRATOR and continue healthy lifestyle changes that she [...] of fatigue, difficulty losing weight by her OB-COMM[employer] CONTR[employer] SYSTEMS INTEGRATOR. She would like to start following with [...] of this and agrees to this plan. [facility] Other Evaluation note* Diagnosis Onset Date Resolution Status 8 weeks gestation of acute Low back pain [facility] Work Phone: Evaluation note* Diagnosis 32 [...] THIRD NIPPLE REMOVED Surgical History Colonoscopy-normal 2018 [facility] Other Summary Purpose Family History Relationship Condition [...] Right ear pain (H92. 01) Referral Organization [facility] Hernandez Referring Provider First Name [...] and content) DATE CREATED AUTHOR 02/25/2023 [facility] DATE CREATED AUTHOR AUTHOR'S ESMER FLORES 08/06/2024 [facility] EPIC Care Teams (unrecognized sec [...] February 13, 2024 End: February 13, 2024 Heavy Mobile Equipment Operator Relationship Specialty Start Date End Date Sandra Austin NP [address] [facility] [place] [address] PCP - General 07/19/23 Heavy Mobile Equipment Operator Relationship Specialty Start Date End Date Sandra Austin NP [address] [facility] [place] [address] PCP - General 07/19/23 Heavy Mobile Equipment Operator Relationship Specialty Start Date End Date Sandra Austin NP [address] [facility] [place] [address] PCP - General 07/19/23 Heavy Mobile Equipment Operator Relationship Specialty Start Date End Date Sandra Austin NP [address] [place] [address] PCP - General 07/19/23 Goals (unrecognized section [...] BE BASED ON THE PRIMARY CLINICAL RECORDS. [facility] [employer] [facility]. provides no warranty or guarantee of the accuracy or completeness of information in this document.
[2024-08-29 09:54] LABS: Thyroid Stimulating Hormone 0.716 uIU/mL (0.358-3.740)
== END 2024-08-29 08:40 | disposition home or self-care (01) ==
LOC: LAB 08:39
PROVIDERS: Visit Provider Obstetrics & Gynecology
DX: O99.280 Endocrine, nutritional and metabolic diseases complicating pregnancy, unspecified trimester (principal); E07.9 Disorder of thyroid, unspecified; Z3A.00 Weeks of gestation of pregnancy not specified
CPT/HCPCS: 36415; 84443

== ENCOUNTER 2024-09-01 21:01 | Outpatient (REF) | payer OTHER, SELFPAY ==
--- OUTSIDE RECORDS SUMMARY | 2024-09-01 21:05 | XMS_ITS | CCD ---
Author Organization [facility] Care Team Providers Care Molder Name Role Phone [facility] Unavailable KAP, SANDRA Primary Care Unavailable MARQUITA ., DR GOLDSMITH Attending Unavailable WEST, DR MANUELITO Foley Consulting Unavailable MARQUITA ., DR GOLDSMITH Admitting Unavailable MARQUITA ., DR GOLDSMITH Consulting Unavailable BRIAN, VIRGINIA Admitting Unavailable VIRGINIA TORRES Attending Unavailable KAP, SANDRA Primary Care Unavailable WAVERLY, DR MANUELITO Foley Consulting Unavailable MARQUITA ., [...] DR GOLDSMITH Attending Unavailable MARQUITA ., DR OGLDSMITH Admitting Unavailable KAPLE, SANDRA Primary Care Unavailable MARQUITA ., DR GOLDSMITH Attending Unavailable MARQUITA ., DR GOLDSMITH Consulting Unavailable MARQUITA ., DR GOLDSMITH Admitting Unavailable ZIEBER, DR RAGINI Chatterjee Consulting Unavailable KAP, SANDRA Primary Care Unavailable MARQUITA ., DR GOLDSMITH Consulting Unavailable MARQUITA ., DR GOLDSMITH Attending Unavailable MARQUTIA ., DR GOLDSMITH Admitting Unavailable KAP, SANDRA Primary Care Unavailable MARQUITA ., DR GOLDSMITH Attending Unavailable WAVERLY, DR MANUELITO Foley Consulting Unavailable MARQUITA ., [...] MARQUITA ., DR GOLDSMITH Admitting Unavailable KAPLE, SANDAR Primary Care Unavailable MARQUITA ., DR GOLDSMITH Attending Unavailable WAVERLY, DR MANUELITO Foley Consulting Unavailable MARQUITA ., [...] LYK ., DR HU Consulting Unavailabl e WAVERLY, DR MANUELITO Foley Consulting Unavailable MARQUITA ., DR GOLDSMITH Consulting Unavailable SANDRA AUSTIN Primary Care Unavailable MARQUITA ., DR GOLDSMITH Attending Unavailable WAVERLY, DR MANUELITO Foley Consulting Unavailable MARQUITA ., DR GOLDSMITH Admitting Unavailable MARQUITA ., DR GOLDSMITH Consulting Unavailable Yari Ramonita Unavailable MARYLOU PRIEST Attending Unavailable AMRQUITA, AGUS Attending Unavailable MARQUITA, AGUS Attending Unavailable MARQUITA, AGUS Attending Unavailable MARYLOU PRIEST Attending Unavailable MARQUITA, AGUS Attending Unavailable MARQUITA, AGUS Attending Unavailable MARQUITA, AGUS Attending Unavailable Geovanna FOREIGN STUDENT ADVISER TEACHER, Sandra Hall Primary Care Provider [phone] Medications Current Medications Medication Drug Class(es) Dates Sig (Normalized) Sig (Original) amoxicillin 500 mg oral capsule (3 sources) Penicillin-class Antibacterial Start: 04-15-2023 take 1 capsule by mouth every eight hours Amoxicillin 500 MG 1 capsule Orally three times a day for 10 day(s) Mar, Active Ascorbic Acid (1 source) Vitamin C Vitamin C Active aspirin 81 mg delayed release oral tablet (7 sources) Platelet Aggregation Inhibitor, Nonsteroidal Anti-inflammatory Drug [...] Active cetirizine hydrochloride 10 mg oral tablet (16 sources) Histamine-1 Receptor Antagonist Start: 10-23-2019 take 30 mg by mouth once daily Cetirizine Active 30 MG PO Daily October 23, 2019 1:00am take 1 tablet by mouth once lolis y cetirizine (ZyrTEC) 10 MG tablet Take 10 mg by mouth Daily Active cholecalciferol 0.025 mg oral tablet (16 sources) Vitamin D Start: 02-13-2024 take 1 [...] May, Active citalopram 20 mg oral tablet (13 sources) Serotonin Reuptake Inhibitor Start: 08-04-2024 End: [...] Extract, Non-Standardized Plant Allergenic Extract Cranberry Active famotidine 20 mg oral tablet (1 source) Histamine-2 Receptor Antagonist Start: End: take 1 tablet by mouth once daily famotidine (Pepcid) 20 MG tablet Indications: Gastroesophageal Reflux Disease , Heartburn Take 1 tablet (20 mg) by mouth Daily 30 tablet 3 08/25/2024 09/24/2024 Active levothyroxine sodium 0.05 mg oral tablet (19 sources) l-Thyroxine Start: take 1 tablet by [...] e magnesium oxide 400 mg oral tablet (3 sources) take 1 tablet by mouth at bedtime magnesium oxide (Mag-Ox) 400 mg tablet Take 400 mg by mouth at bedtime Active metFORMIN hydrochloride 500 mg oral tablet (1 source) Biguanide take 1 tablet by mouth every twelve hours metFORMIN HCl 500 MG 1 tablet with a meal Orally twice a day Active omeprazole 20 mg delayed release oral capsule (9 sources) Proton Pump Inhibitor Start: End: take [...] 11 03/02/2024 08/18/2024 Discontinued ondansetron 4 mg disintegrating oral tablet (2 sources) Serotonin-3 Receptor Antagonist Start: 08-25-2024 End: 09-24-2024 take 1 tablet by mouth every six hours for nausea ondansetron ODT (Zofran-ODT) 4 MG disintegrating tablet Indications: Nausea and vomiting, unspecified vomiting type Take 1 tablet (4 mg) by mouth every 6 (six) hours if needed for nausea or vomiting 30 tablet 3 08/25/2024 09/24/2024 Active Start: 02-13-2024 take 4 mg by mouth e very eight hours Ondansetron Hcl Active 4 MG PO Every 8 hours February 13, 2024 12:00am polymyxin b 10344 unt/ml / trimethoprim 1 mg/ml ophthalmic solution (3 sources) Dihydrofolate Reductase Inhibitor Antibacterial, Polymyxin-class Antibacterial Start: 01-04-2023 Polymyxin B-Trimethoprim 59411-0.1 UNIT/ML 1 drop into affected eye Ophthalmic every 3 hours up to six times daily for 7 days Dec, Active (10 sources) Active Aadeirfa-Hla-Gx-FA ( 1 + IRON PO) (7 sources) Sncbjyib-Ryq-Ce-FA ( 1 + IRON PO) Take by [...] acid 7540 MG / polyethylene glycol 3350 73587 MG / potassium chloride 1200 MG / sodium ascorbate 80311 MG / sodium chloride 3200 MG Powder for Oral Solution) / 1 (polyethylene glycol 3350 269813 MG / potassium chloride 1000 MG / [...] as acute or chronic Episodic Esophageal disorders (6 sources) Gastro-esophageal reflux disease without esophagitis; Translations: [Gastroesophageal reflux disease] Onset: 09-17-2022 08-18-2024 Chronic Hypertension complicating ; childbirth and the puerperium (8 sources) Unspecified maternal hypertension, third trimester; Translations: [Unspecified pre-existing hypertension complicating , third trimester] Onset: 08-17-2022 Chronic Inflammation; infection of eye (except that caused by tuberculosis or sexually transmitteddisease) (1 source) Unspecified conjunctivitis Episodic Nausea and vomiting (5 sources) Nausea and vomiting; Translations: [Nausea with [...] otitis externa, bilateral Episodic Other endocrine disorders (18 sources) Polycystic ovary syndrome; Translations: [Polycystic ovarian [...] of ] 08-04-2024 Episodic Residual codes; unclassified (5 sources) Gestation period, 34 weeks; Translations: [34 [...] Problem Date Documented Date Episodic/Chronic Abdominal pain (9 sources) Left lower quadrant pain; Translations: [Abdominal [...] Episodic Other ear and sense organ disorders (8 sources) Otalgia, right ear; Translations: [Otalgia, unspecified] [...] Test Name Value Interpretation Reference Range Facility ALL THYROID STIM HORMONEon 1 10-29-2023 TSH Qn 0.716 m[IU]/L [facility] Healthcar e Urinalysis macro (dipstick) panel (U)on 08-18-2024 Bilirubin, UA Negative Negative - 4(70) +++ mg/dL [facility] Healthcare Blood, UA Negative Negative - 50 Jose Manuel/mcL [facility] Clarity, UA Clear [facility] Color, UA Yellow [facility] Glucose, UA Negative Negative - 1999(110) ++++ mg/dL [facility] Interpretation and review of laboratory results Normal [facility] Ketones, UA Negative Negative - 160(16) ++++ mg/dL [facility] Healthcare Leukocytes, UA Negative Negative - 500+++ Alexys/mcL [facility] Nitrite, UA Negative Negative - Positive [facility] pH, UA 6.5 5 - 9 [facility] Protein, UA Negative Negative - 1999(20) ++++ mg/dL [facility] Spec Grav, UA 1.01 1 - 1.03 [facility] Health care Urobilinogen, UA 0.2 0.2 - 12 mg/dL [facility] Urinal[facility] macro (dipstick) panel (U)on 08-04-2024 Bilirubin, UA Negative Negative - 4(70) +++ mg/dL [facility] Blood, UA Negative Negative - 50 Jose Manuel/mcL [facility] Healthcare Clarity, UA Clear [facility] Color, UA Yellow [facility] Glucose, UA Negative Negative - 1999(110) ++++ mg/dL [facility] Interpretation and review of laboratory results Abnormal [facility] Ketones, UA Negative Negative - 160(16) ++++ mg/dL [facility] Healthcare Leukocytes, UA Trace Negative - 500+++ Alexys/mcL [facility] Nitrite, UA Negative Negative - Positive [facility] pH, UA 7.0 5 - 9 [facility] Protein, UA Negative Negative - 1999(20) ++++ mg/dL [facility] Healthcare Spec Grav, UA 1.015 1 - 1.03 [facility] Health care Urobilinogen, UA 0.2 0.2 - 12 mg/dL [facility] Healthcare [facility] Human papilloma virus 16+18+ 31+33+35+39+45+51+52+56+58+59+66+68 DNA [Presence] in Anders 12-16-2023 HPV 16+18+31+33+35+39+45 +51+52+56+58+59+66+6 8 DNA Probe+sig amp Ql (Cvx) Note . [facility] Comment on above: TESTS RESULT FLAG UN ITS REF RANGE LAB DI AGNOSIS: 02 NEGATIVE FOR INTRAEPITHELIAL LESION OR MALIGNANCY.Specimen adequacy: 02 Satisfactory for evaluation. Endocervical and/or squamous metaplastic cells (endocervical component) are present.Performed by: 02 Raeann Duran, Baggageman (ASC). 02Note: Note 02 The Pap smear is a screening test designed to aid in the detection of premalignant and malignant conditions of the uterine cervix. It is not a diagnostic procedure and should not be used as the sole means of detecting cervical cancer. Both false-positive and false-negative reports do occur.Test Methodology: Note 02 The Barak ITC(R) Sonar Watchstander was unable to read this specimen. Therefore a manual review was performed. ----- FLAG LEGEND: L-Low Normal,H-High Normal,LL-Alert Low,HH-Alert High <-Panic Low,>-Panic High,A-Abnormal,AA-Critical Abnormal ---Performed at:[address] [facility] [place] [address] Heavenly Serrano MD, . 02 The HPV DNA reflex criteria were not met with this specimen result therefore, no HPV testing was performed.The HPV DNA reflex criteria were not met with this specimenresult therefore, no HPV testing was performed.Performed at: =G - [facility] [id number], [place] [id number] Director: Heavenly Serrano MD, Phone: [phone] at: [facility] [facility] [place], [place] [id number] Director: Heavenly Serrano MD, Phone: [phone] No Panel Informationon 12-16 Reference Lab Test Patient Age Note . [facility] Comment on above: TESTS RESULT FLAG UN ITS REF RANGE LAB Clinician Provided Cytology Information Source.............Cervix No. of containers..01 ThinPrep VialAge Niruo AGUSTINAOG Leslye... FLAG LEGEND: L-Low Normal,H-High Normal,LL-Alert Low,HH-Alert High <-Panic Low,>-Panic High,A-Abnormal,AA-Critical Abnormal ---Performed at:01 =[facility] [address] [address] Heavenly Serrano MD, A1C HEMOGLOBINon 10-31-2023 HbA1c (Bld) [Mass fraction] 5.8 % [employer] Other HbA1c (Bld) [Mass fraction]o n 10-31-2023 A1C HEMOGLOBIN [employer] Other A1C HEMOGLOBINon 06-24-2023 HbA1c (Bld) [Mass fraction] 5.2 % [employer] Other HbA1c (Bld) [Mass fraction]o n 06-24-2023 A1C HEMOGLOBIN [employer] Other Quick Strepon 04-15-2023 S. pyogenes Org specific cx Ql (Throat) Positive [employer] Other Quick Strep [facility] [employer] Other FREE T4on 02-21-2023 Free T4 [Mass/Vol] 0.89 ng/dL Normal 0.76-1.46 [facility] Comment on above: Performed By: #### H H #### Laboratory [address] [place] [address] Dr. Bella Jerome PROF 14(COMP METB)on 023 Albumin [Mass/Vol] 3.7 g/dL Normal 3.4-5.0 [facility] Comment on above: Performed By: #### H H #### Laboratory [address] [place] [address] Dr. Bella Jerome Albumin/Globulin [Mass ratio] 0.9 {ratio} Normal [facility] Comment on above: Performed By: #### H H #### Laboratory [address] [place] [address] Dr. Bella Jerome ALP [Catalytic activity/Vol] 132 U/L Critically high 46-116 [facility] Comment on above: Performed By: #### H H #### Laboratory [address] [place] [address] Dr. Bella Jerome ALT [Catalytic activity/Vol] 32 U/L Normal 14-59 [facility] Comment on above: Performed By: #### H H #### Laboratory [address] [place] [address] Dr. Bella Jerome Anion gap [Moles/Vol] 12.8 mmol/L Normal [facility] Comment on above: Performed By: #### H H #### Laboratory [address] [place] [address] Dr. Bella Jerome AST [Catalytic activity/Vol] 23 U/L Normal 15-37 [facility] Comment on above: Performed By: #### H H #### Laboratory [address] [address] [address] Bella Jerome Bilirubin [Mass/Vol] 0.6 mg/dL Normal 0.2-1.0 [facility] Comment on above: Performed By: #### H H #### Laboratory [address] [address] [address] Bella Jerome Calcium [Mass/Vol] 9.0 mg/dL Normal 8.5-10.1 [facility] Comment on above: Performed By: #### H H #### Laboratory [address] [address] [address] Bella Jerome Chloride [Moles/Vol] 102 mmol/L Normal 98-107 [facility] Comment on above: Performed By: #### H H #### Laboratory [address] [place] [address] Dr. Bella Jerome CO2 [Moles/Vol] 28.2 mmol/L Normal 21.0-32.0 [facility] Comment on above: Performed By: #### H H #### Laboratory [address] [address] [address] Bella Jerome Creatinine [Mass/Vol] 0.67 mg/dL Normal 0.55-1.02 [facility] Comment on above: Performed By: #### H H #### Laboratory [address] [address] [address] Bella Jerome EGFR-AF [place] ISLANDER >60 Normal >=60 [facility] Comment on above: Performed By: #### H H #### Laboratory [address] [address] [address] Bella Jerome EGFR-NON AF [place]ER >60 Normal >=60 [facility] Comment on above: Performed By: #### H H #### Laboratory [address] [place] [address] Dr. Bella Jerome Globulin (S) [Mass/Vol] 4.2 g/dL Normal [facility] Comment on above: Performed By: #### H H #### Laboratory [address] [address] [address] Bella Jerome Glucose [Mass/Vol] 88 mg/dL Normal 74-106 [facility] Comment on above: Performed By: #### H H #### Laboratory [address] [address] [address] Bella Jerome Potassium [Moles/Vol] 4.0 mmol/L Normal 3.5-5.1 [facility] Comment on above: Performed By: #### H H #### Laboratory [address] [address] [address] Bella Jerome Protein [Mass/Vol] 7.9 g/dL Normal 6.4-8.2 [facility] Comment on above: Performed By: #### H H #### Laboratory [address] [address] [address] Bella Jerome Sodium [Moles/Vol] 139 mmol/L Normal 136-145 [facility] Comment on above: Performed By: #### H H #### Laboratory [address] [place] [address] Dr. Bella Jerome Urea nitrogen [Mass/Vol] 12.0 mg/dL Normal 7.0-18.0 [facility] Comment on above: Performed By: #### H H #### Laboratory [address] [place] [address] Dr. Bella Jerome Urea nitrogen/Creatinine [Mass ratio] 17.9 mg/mg Normal [facility] Comment on above: Performed By: #### H H #### Laboratory [address] [address] [address] Bella Jerome TSHon 02-21-2023 TSH 2.463 uIU/mL Normal 0.358-3.740 [facility] Comment on above: Performed By: #### H H #### Laboratory [address] [address] [address] Bella Jerome VITAMIN D 25 OHon 02-21-2023 VIT D 25-OH 23.1 ng/mL Normal [facility] Comment on above: Performed By: #### H H #### Laboratory [address] [place] [address] Dr. Bella Jerome VIT D RANGES SEE BELOW Normal [facility] Comment on above: Result Comment: <20 ng/mL Vit D deficient 20 - <30 ng/mL Vit D insufficient 30 - 100 ng/mL Vit D sufficient >100 ng/mL Potential Toxicity Performed By: #### H H #### Laboratory [address] [place] [address] Dr. Bella Jerome CBC AUTO DIFFon 12-26-2022 BASO # 0.0 103/ul Normal 0.0-0.1 [facility] Comment on above: Performed By: #### C BC #### Laboratory [address] [place] [address] Dr. Bella Jerome Basophils/100 WBC (Bld) 0.3 % Normal 0.2-2.0 [facility] Comment on above: Performed By: #### C BC #### Laboratory [address] [place] [address] Dr. Bella Jerome EO # 0.1 103/ul Normal 0.0-0.7 [facility] Comment on above: Performed By: #### C BC #### Laboratory [address] [place] [address] Dr. Bella Jerome Eosinophils/100 WBC (Bld) 1.6 % Normal 0.9-7.0 [facility] Comment on above: Performed By: #### C BC #### Laboratory [address] [place] [address] Dr. Bella Jerome Erythrocyte distribution width (RBC) [Ratio] 12.7 % Normal 11.0-15.0 [facility] Comment on above: Performed By: #### C BC #### Laboratory [address] [place] [address] Dr. Bella Jerome Hematocrit (Bld) [Volume fraction] 37.2 % Normal 36.0-48.0 [facility] Comment on above: Performed By: #### C BC #### Laboratory [address] [place] [address] Dr. Bella Jerome Hemoglobin (Bld) [Mass/Vol] 12.5 g/dL Normal 12.0-16.0 [facility] Comment on above: Performed By: #### C BC #### Laboratory [address] [place] [address] Dr. Bella Jerome IG # 0.02 10e3/ul Normal 0.00-0.03 [facility] Comment on above: Performed By: #### C BC #### Laboratory [address] [place] [address] Dr. Bella Jerome IG % 0.3 % Normal 0.0-0.5 [facility] Comment on above: Performed By: #### C BC #### Laboratory [address] [place] [address] Dr. Bella Jerome LYMPH # 2.3 103/ul Normal 1.2-3.8 [facility] Comment on above: Performed By: #### C BC #### Laboratory [address] [place] [address] Dr. Bella Jerome Lymphocytes/100 WBC (Bld) 34.1 % Normal 20.5-60.0 [facility] Comment on above: Performed By: #### C BC #### Laboratory [address] [place] [address] Dr. Bella Jerome MANUAL DIFF REQ NO Normal [facility] Comment on above: Performed By: #### C BC #### Laboratory [address] [place] [address] Dr. Bella Jerome MCH (RBC) [Entitic mass] 30.9 pg Normal 26.7-34.0 [facility] Comment on above: Performed By: #### C BC #### Laboratory [address] [place] [address] Dr. Bella Jerome MCHC (RBC) [Mass/Vol] 33.6 g/dL Normal 29.9-35.2 [facility] Comment on above: Performed By: #### C BC #### Laboratory [address] [place] [address] Dr. Bella Jerome MCV (RBC) [Entitic vol] 91.9 fL Normal 81.0-99.0 [facility] Comment on above: Performed By: #### C BC #### Laboratory [address] [address] [address] Bella Jerome MONO # 0.4 103/ul Normal 0.3-0.8 [facility] Comment on above: Performed By: #### C BC #### Laboratory [address] [address] [address] Bella Jerome Monocytes/100 WBC (Bld) 5.1 % Normal 1.7-12.0 [facility] Comment on above: Performed By: #### C BC #### Laboratory [address] [place] [address] Dr. Bella Jerome NEUT # 4.0 103/ul Normal 1.4-6.5 [facility] Comment on above: Performed By: #### C BC #### Laboratory [address] [place] [address] Dr. Bella Jerome Neutrophils/100 WBC (Bld) 58.6 % Normal 43.0-75.0 [facility] Comment on above: Performed By: #### C BC #### Laboratory [address] [place] [address] Dr. Bella Jerome Platelet mean volume (Bld) [Entitic vol] 11.5 fL Normal 9.5-13.5 [facility] Comment on above: Performed By: #### C BC #### Laboratory [address] [place] [address] Dr. Bella Jerome PLT 243 103/ul Normal 150-450 The Comment on above: Performed By: #### C BC #### Laboratory [address] [place] [address] Dr. Bella Jerome RBC 4.05 106/ul Critically low 4.20-5.40 [facility] Comment on above: Performed By: #### C BC #### Laboratory [address] [place] [address] Dr. Bella Jerome WBC 6.8 103/ul Normal 4.0-11.0 The Comment on above: Performed By: #### C BC #### Laboratory [address] [address] [address] Bella Jerome FREE T4on 12-26-2022 Free T4 [Mass/Vol] 1.05 ng/dL Normal 0.76-1.46 [facility] Comment on above: Performed By: #### F T4, VITAD, B12FOL, IRON #### [id number] [id number] Bella Jerome GLYCOHEMOGLOBIN A1Con 2022 ADA RECOMMENDATION SEE BELOW Normal [facility] Comment on above: Result Comment: ADA RECOMMENDED LIMIT 4.0 - 6.0 ADA THERAPEUTIC TARGET < 7.0 ACTION SUGGESTED > 7.0 Performed By: #### A 1C #### Laboratory [address] [address] [address] Bella Jerome Glucose [Mass/Vol] 103 mg/dL Normal [facility] Comment on above: Performed By: #### A 1C #### Laboratory [address] [address] [address] Bella Jerome HbA1c (Bld) [Mass fraction] 5.2 % Normal 4.5-6.2 [facility] Comment on above: Performed By: #### A 1C #### Laboratory [address] [address] [address] Bella Jerome IRONon 12-26-2022 Iron [Mass/Vol] 74.0 ug/dL Normal 50.0-170.0 [facility] Comment on above: Performed By: #### F T4, VITAD, B12FOL, IRON #### [id number] [id number] Bella Jerome LIPID PROFILEon 12-26-2022 CHOL-HDL RATIO NORM SEE BELOW Normal [facility] Comment on above: Result Comment: 3.3 - 4.4 LOW RISK 4.4 - 7.1 AVERAGE RISK 7.1 - 11.0 MODERATE RISK >11.0 HIGH RISK Performed By: #### C MP, TSH, LIPID #### Laboratory [address] [address] [address] Bella Jerome Cholesterol [Mass/Vol] 153 mg/dL Normal <=200 [facility] Comment on above: Performed By: #### C MP, TSH, LIPID #### Laboratory [address] [address] [address] Bella Jerome Cholesterol in HDL [Mass/Vol] 67 mg/dL Critically high 40-60 [facility] Comment on above: Performed By: #### C MP, TSH, LIPID #### Laboratory [address] [address] [address] Bella Jerome Cholesterol in LDL [Mass/Vol] 77.2 mg/dL Normal [facility] Comment on above: Performed By: #### C MP, TSH, LIPID #### Laboratory [address] [address] [address] Bella Jerome Cholesterol.total/Ch olesterol in HDL [Mass ratio] 2.3 {ratio} Normal [facility] Comment on above: Performed By: #### C MP, TSH, LIPID #### Laboratory [address] [address] [address] Bella Jerome HDL NORMAL > or = 60 mg/dl - LOW CARDIOVASCULAR RISK <40 mg/dl - HIGH CARDIOVASCULAR RISK Normal [facility] Comment on above: Performed By: #### C MP, TSH, LIPID #### Laboratory [address] [address] [address] Bella Jerome LDL CALC NORMAL SEE BELOW Normal [facility] Comment on above: Result Comment: <100 mg/dl OPTIMAL 100 - 129 mg/dl NEAR OR ABOVE OPTIMAL 130 - 159 mg/dl BORDERLINE HIGH 160 - 189 mg/dl HIGH >190 mg/dl VERY HIGH Performed By: #### C MP, TSH, LIPID #### Laboratory [address] [address] [address] Bella Jerome Triglyceride [Mass/Vol] 44 mg/dL Normal <=150 The Comment on above: Performed By: #### C MP, TSH, LIPID #### Laboratory [address] [address] [address] Bella Jerome VLDL CALC 8.8 mg/dL Normal [facility] Comment on above: Performed By: #### C MP, TSH, LIPID #### Laboratory [address] [address] [address] Bella Jerome MICROALB CREAT RATIO RANDOMo n 12-26-2022 mALB 2.3 mg/L Normal <=30.0 [facility] Comment on above: Performed By: #### H H #### Laboratory [address] [address] [address] Bella Jerome MALB CR RATIO 17.4 mg/g Normal 0.0-29.9 [facility] Comment on above: Performed By: #### H H #### Laboratory [address] [address] [address] Bella Jerome MALB CR RATIO RANGE SEE BELOW Normal [facility] Comment on above: Result Comment: NO M ICROALBUMINURIA 0-29 MG/G CLINICAL MICROALBUMINURIA 30-300 MG/G MACROALBUMINURIA >300 MG/G Performed By: #### H H #### Laboratory [address] [place] [address] Dr. Bella Jerome URINE CREAT 131.90 mg/dL Normal 20.00-300.00 [facility] Comment on above: Performed By: #### H H #### Laboratory [address] [place] [address] Dr. Bella Jerome PROF 14(COMP METB)on 023 Albumin [Mass/Vol] 4.1 g/dL Normal 3.4-5.0 [facility] Comment on above: Performed By: #### C MP, TSH, LIPID #### Laboratory [address] [place] [address] Dr. Bella Jerome Albumin/Globulin [Mass ratio] 1.3 {ratio} Normal [facility] Comment on above: Performed By: #### C MP, TSH, LIPID #### Laboratory [address] [place] [address] Dr. Bella Jerome ALP [Catalytic activity/Vol] 124 U/L Critically high 46-116 The Comment on above: Performed By: #### C MP, TSH, LIPID #### Laboratory [address] [place], [place] [address] Dr. Bella Jerome ALT [Catalytic activity/Vol] 16 U/L Normal 14-59 [facility] Comment on above: Performed By: #### C MP, TSH, LIPID #### Laboratory [address] [place] [address] Dr. Bella eJrome Anion gap [Moles/Vol] 13.4 mmol/L Normal [facility] Comment on above: Performed By: #### C MP, TSH, LIPID #### Laboratory [address] [place] [address] Dr. Bella Jerome AST [Catalytic activity/Vol] 17 U/L Normal 15-37 [facility] Comment on above: Performed By: #### C MP, TSH, LIPID #### Laboratory [address] [place] [address] Dr. Bella Jerome Bilirubin [Mass/Vol] 0.8 mg/dL Normal 0.2-1.0 [facility] Comment on above: Performed By: #### C MP, TSH, LIPID #### Laboratory [address] [place] [address] Dr. Bella Jerome Calcium [Mass/Vol] 8.9 mg/dL Normal 8.5-10.1 [facility] Comment on above: Performed By: #### C MP, TSH, LIPID #### Laboratory [address] [place] [address] Dr. Bella Jerome Chloride [Moles/Vol] 103 mmol/L Normal 98-107 The Comment on above: Performed By: #### C MP, TSH, LIPID #### Laboratory [address] [place] [address] Dr. Bella Jerome CO2 [Moles/Vol] 25.6 mmol/L Normal 21.0-32.0 [facility] Comment on above: Performed By: #### C MP, TSH, LIPID #### Laboratory [address] [place] [address] Dr. Bella Jerome Creatinine [Mass/Vol] 0.55 mg/dL Normal 0.55-1.02 [facility] Comment on above: Performed By: #### C MP, TSH, LIPID #### Laboratory [address] [address] [address] Bella Jerome EGFR-AF [place] ISLANDER >60 Normal >=60 [facility] Comment on above: Performed By: #### C MP, TSH, LIPID #### Laboratory [address] [address] [address] Bella Jerome EGFR-NON AF [place]ER >60 Normal >=60 The Comment on above: Performed By: #### C MP, TSH, LIPID #### Laboratory [address] [address] [address] Bella Jerome Globulin (S) [Mass/Vol] 3.1 g/dL Normal [facility] Comment on above: Performed By: #### C MP, TSH, LIPID #### Laboratory [address] [address] [address] Bella Jerome Glucose [Mass/Vol] 82 mg/dL Normal 74-106 [facility] Comment on above: Performed By: #### C MP, TSH, LIPID #### Laboratory [address] [address] [address] Bella Jerome Potassium [Moles/Vol] 4.0 mmol/L Normal 3.5-5.1 The Comment on above: Performed By: #### C MP, TSH, LIPID #### Laboratory [address] [address] [address] Bella Jerome Protein [Mass/Vol] 7.2 g/dL Normal 6.4-8.2 [facility] Comment on above: Performed By: #### C MP, TSH, LIPID #### Laboratory [address] [address] [address] Bella Jerome Sodium [Moles/Vol] 138 mmol/L Normal 136-145 [facility] Comment on above: Performed By: #### C MP, TSH, LIPID #### Laboratory [address] [address] [address] Bella Jerome Urea nitrogen [Mass/Vol] 14.0 mg/dL Normal 7.0-18.0 [facility] Comment on above: Performed By: #### C MP, TSH, LIPID #### Laboratory [address] [address] [address] Bella Jerome Urea nitrogen/Creatinine [Mass ratio] 25.5 mg/mg Normal [facility] Comment on above: Performed By: #### C MP, TSH, LIPID #### Laboratory [address] [address] [address] Bella Jerome TSHon 12-26-2022 TSH 0.224 uIU/mL Critically low 0.358-3.740 [facility] Comment on above: Performed By: #### C MP, TSH, LIPID #### Laboratory [address] [address] [address] Bella Jerome VIT B12 AND FOLATEon 023 Cobalamin (Vitamin B12) [Mass/Vol] 702.0 pg/mL Normal 193.0-986.0 [facility] Comment on above: Performed By: #### F T4, VITAD, B12FOL, IRON #### [id number] [address]DrWill Jerome FOLATE 25.10 ng/mL Normal 8.60-58.90 [facility] Comment on above: Performed By: #### F T4, VITAD, B12FOL, IRON #### [address] [address]DrWill Jerome VITAMIN D 25 OHon 12-26-2022 VIT D 25-OH 25.4 ng/mL Normal The Comment on above: Performed By: #### F T4, VITAD, B12FOL, IRON #### [id number] [address]DrWill Jerome VIT D RANGES SEE BELOW Normal [facility] Comment on above: Result Comment: <20 ng/mL Vit D deficient 20 - <30 ng/mL Vit D insufficient 30 - 100 ng/mL Vit D sufficient >100 ng/mL Potential Toxicity Performed By: #### F T4, VITAD, B12FOL, IRON #### [id number] [address]Dr. Bella Jerome PAP ACOG PANEL 2: 23 to 31on 12-18-2022 . . Normal [facility] Comment on above: Performed By: #### C BC #### Laboratory [address] [place] [address] Dr. Bella Jerome Age Gdln ACOG Testing - [facility] Comment on above: Performed By: #### C BC #### Laboratory [address] [place] [address] Dr. Bella Jerome DIAGNOSIS: Comment [facility] Comment on above: Result Comment: NEGA TIVE FOR INTRAEPITHELIAL LESION OR MALIGNANCY. Performed By: #### C BC #### Laboratory [address] [place] [address] Dr. Bella Jerome Methodology: Comment [facility] Comment on above: Result Comment: This liquid based ThinPrep(R) pap test was screened with the use of an image guided system. Performed By: #### C BC #### Laboratory [address] [place] [address] Dr. Bella Jerome Note: Comment [facility] Comment on above: Result Comment: The Pap smear is a screening test designed to aid in the detection of premalignant and malignant conditions of the uterine cervix. It is not a diagnostic procedure and should not be used as the sole means of detecting cervical cancer. Both false-positive and false-negative reports do occur. . Performed By: #### C BC #### Laboratory [address] [place] [address] Dr. Bella Jerome Performed by: Comment Normal [facility] Comment on above: Result Comment: Byron Irby, Baggageman (ASCP) Performed By: #### C BC #### Laboratory [address] [place], [place] [address] Dr. Bella Jerome Reflex Criteria: Comment [facility] Comment on above: Result Comment: The HPV DNA reflex criteria were not met with this specimen result therefore, no HPV testing was performed. . Performed By: #### C BC #### Laboratory [address] [place] [address] Dr. Bella Jerome Specimen adequacy: Comment Normal [facility] Comment on above: Result Comment: Sati sfactory for evaluation. Endocervical and/or squamous metaplastic cells (endocervical component) are present. Performed By: #### C BC #### Laboratory [address] [address] [address] Bella Jerome CBC W MANUAL DIFFon 09-07-20 22 ATYPICAL LYMPH # Normal [facility] Comment on above: Performed By: #### C BCMAN #### [id number] [address]Dr. Bella Jerome ATYPICAL LYMPH % Normal [facility] Comment on above: Performed By: #### C BCMAN #### [id number] [address]Dr. Bella Jerome BAND # 0.2 103/ul Normal 0.0-0.3 [facility] Comment on above: Performed By: #### C BCMAN #### [address] [address]Dr. Bella Jerome BAND % 1 % Normal 0-5 [facility] Comment on above: Performed By: #### C BCMAN #### [id number] [address]Dr. Bella Jerome BASOM # 0.00 103/ul Normal 0.00-0.10 [facility] Comment on above: Performed By: #### C BCMAN #### [address] [address]Dr. Bella Jerome BASOM % 0.0 % Critically low 0.2-2.0 The [facility] Comment on above: Performed By: #### C BCMAN #### [address] [address]Dr. Bella Jerome BLAST # Normal The Comment on above: Performed By: #### C BCMAN #### [address] [address]Dr. eBlla Jerome BLAST % Normal The Comment on above: Performed By: #### C BCMAN #### [address] [id number]. Bella Jerome CORRECTED WBC Normal 4.0-11.0 The [facility] Comment on above: Performed By: #### C PEDRO #### [address] [id number]. Bella Jerome EOS # 0.00 103/ul Normal 0.00-0.70 [facility] Comment on above: Performed By: #### C PEDRO #### [address] [id number]. Bella Jerome EOS% 0.0 % Critically low 0.9-7.0 [facility] Comment on above: Performed By: #### C PEDRO #### [address] [id number]. Bella Jerome HCT 30.5 % Critically low 36.0-48.0 [facility] Comment on above: Performed By: #### C PEDRO #### [address] [phone]. Bella Jerome HGB 10.5 g/dl Critically low 12.0-16.0 The [facility] Comment on above: Performed By: #### C PEDRO #### [address] [place], [place] [address]Dr. Bella Jerome LYMPHM # 2.78 103/ul Normal 1.20-3.80 The Comment on above: Performed By: #### C PEDRO #### [address] [place], [place] [address]Dr. Bella Jerome LYMPHM% 13.0 % Critically low 20.5-60.0 The [facility] Comment on above: Performed By: #### C PEDRO #### [address] [place], [place] [address]Dr. Bella Jerome MCH 32.8 pg Normal 26.7-34.0 The Comment on above: Performed By: #### C PEDRO #### [address] [place] [phone]. Bella Jerome MCHC 34.4 g/dl Normal 29.9-35.2 The Comment on above: Performed By: #### C PEDRO #### [address] [place] [phone]. Bella Jerome MCV 95.3 fL Normal 81.0-99.0 The Comment on above: Performed By: #### C PEDRO #### [id number] [phone]. Bella Jerome METAMYELOCYTE # Normal [facility] Comment on above: Performed By: #### C PEDRO #### [address] [phone]. Bella Jerome METAMYELOCYTE % Normal [facility] Comment on above: Performed By: #### C PEDRO #### [address]eswo[address] [place] [id number]. Bella Jerome MONOM# 2.35 103/ul Critically high 0.30-0.80 [facility] Comment on above: Performed By: #### C PEDRO #### [address] [place] [phone]. Bella Jerome MONOM% 11.0 % Normal 1.7-12.0 [facility] Comment on above: Performed By: #### C PEDRO #### [address] [place] [id number]. Bella Justus MPV 11.1 fL Normal 9.5-13.5 The Comment on above: Performed By: #### C PEDRO #### [address] [phone]. Bella Jerome MYELOCYTE # Normal The Comment on above: Performed By: #### C PEDRO #### [address]ps[address] [place] [phone]. Bella Jerome MYELOCYTE % Normal The Comment on above: Performed By: #### C PEDRO #### [address] [phone]. Bella Jerome NRBC Normal The Comment on above: Performed By: #### C PEDRO #### [address] [place], [place] [address]Fs. Bella Jerome PLT 227 103/ul Normal 150-450 The Comment on above: Performed By: #### C PEDRO #### [address]fr[address] [place], [place] [address]TlWill Jerome RBC 3.20 106/ul Critically low 4.20-5.40 [facility] Comment on above: Performed By: #### C PEDRO #### Cnn[address]vcrmf8732 [place], [place] [address]YvWill Jerome RDW 12.8 % Normal 11.0-15.0 [facility] Comment on above: Performed By: #### C PEDRO #### [address] [place], [place] [address]CpDr. Bella Jerome SEG # 16.05 103/ul Critically high 1.40-6.50 [facility] Comment on above: Performed By: #### C PEDRO #### R[address]rspdcvs3634 [place], [place] [address]FbDr. Bella Jerome SEG % 75.0 % Normal 43.0-75.0 [facility] Comment on above: Performed By: #### C PEDRO #### Lrfvb[address]iof3537 [place], [place] [address]RjDr. Bella Jerome WBC 21.4 103/ul Critically high 4.0-11.0 [facility] Comment on above: Performed By: #### C PEDRO #### Hhljhpxbwg9564 [place], [place] [address]Dr. Bella Jerome CBC AUTO DIFFon 09-05-2022 BASO # 0.0 103/ul Normal 0.0-0.1 [facility] Comment on above: Performed By: #### C BC #### Laboratory [address] [place], [place] [address] Dr. Bella Jerome Basophils/100 WBC (Bld) 0.2 % Normal 0.2-2.0 [facility] Comment on above: Performed By: #### C BC #### Laboratory [address] [address] [address] Bella Jerome EO # 0.1 103/ul Normal 0.0-0.7 [facility] Comment on above: Performed By: #### C BC #### Laboratory [address] [address] [address] Belal Jerome Eosinophils/100 WBC (Bld) 0.6 % Critically low 0.9-7.0 [facility] Comment on above: Performed By: #### C BC #### Laboratory [address] [address] [address] Bella Jerome Erythrocyte distribution width (RBC) [Ratio] 12.6 % Normal 11.0-15.0 [facility] Comment on above: Performed By: #### C BC #### Laboratory [address] [place] [address] Dr. Bella Jerome Hematocrit (Bld) [Volume fraction] 32.5 % Critically low 36.0-48.0 [facility] Comment on above: Performed By: #### C BC #### Laboratory [address] [address] [address] Bella Jerome Hemoglobin (Bld) [Mass/Vol] 11.1 g/dL Critically low 12.0-16.0 [facility] Comment on above: Performed By: #### C BC #### Laboratory [address] [address] [address] Bella Jerome IG # 0.14 10e3/ul Critically high 0.00-0.03 [facility] Comment on above: Performed By: #### C BC #### Laboratory [address] [address] [address] Bella Jerome IG % 1.1 % Critically high 0.0-0.5 [facility] Comment on above: Performed By: #### C BC #### Laboratory [address] [address] [address] Bella Jeorme LYMPH # 2.6 103/ul Normal 1.2-3.8 [facility] Comment on above: Performed By: #### C BC #### Laboratory [address] [address] [address] Bella Jerome Lymphocytes/100 WBC (Bld) 20.2 % Critically low 20.5-60.0 [facility] Comment on above: Performed By: #### C BC #### Laboratory [address] [place] [address] Dr. Bella Jerome MANUAL DIFF REQ NO Normal [facility] Comment on above: Performed By: #### C BC #### Laboratory [address] [place] [address] Dr. Bella Jerome MCH (RBC) [Entitic mass] 32.2 pg Normal 26.7-34.0 [facility] Comment on above: Performed By: #### C BC #### Laboratory [address] [place] [address] Dr. Bella Jerome MCHC (RBC) [Mass/Vol] 34.2 g/dL Normal 29.9-35.2 [facility] Comment on above: Performed By: #### C BC #### Laboratory [address] [place] [address] Dr. Bella Jerome MCV (RBC) [Entitic vol] 94.2 fL Normal 81.0-99.0 [facility] Comment on above: Performed By: #### C BC #### Laboratory [address] [place] [address] Dr. Bella Jerome MONO # 0.9 103/ul Critically high 0.3-0.8 [facility] Comment on above: Performed By: #### C BC #### Laboratory [address] [place] [address] Dr. Bella Jerome Monocytes/100 WBC (Bld) 7.1 % Normal 1.7-12.0 The Comment on above: Performed By: #### C BC #### Laboratory [address] [place] [address] Dr. Bella Jerome NEUT # 8.9 103/ul Critically high 1.4-6.5 [facility] Comment on above: Performed By: #### C BC #### Laboratory [address] [address] [address] Bella Jerome Neutrophils/100 WBC (Bld) 70.8 % Normal 43.0-75.0 [facility] Comment on above: Performed By: #### C BC #### Laboratory [address] [address] [address] Bella Jerome Platelet mean volume (Bld) [Entitic vol] 11.0 fL Normal 9.5-13.5 [facility] Comment on above: Performed By: #### C BC #### Laboratory [address] [address] [address] Bella Jerome PLT 234 103/ul Normal 150-450 [facility] Comment on above: Performed By: #### C BC #### Laboratory [address] [place] [address] Dr. Bella Jerome RBC 3.45 106/ul Critically low 4.20-5.40 [facility] Comment on above: Performed By: #### C BC #### Laboratory [address] [place] [address] Dr. Bella Jerome WBC 12.6 103/ul Critically high 4.0-11.0 [facility] Comment on above: Performed By: #### C BC #### Laboratory [address] [place] [address] Dr. Bella Jerome Covid-19 PCR ([facility])on SARS-CoV-2 (COVID-19) RNA FAVIAN+probe Ql (Unsp spec) Not detected Normal NOT DETECTED The Comment on above: Result Comment: When diagnostic [...] for this test is supported by the [employer] of Health and Human Service's declaration that [...] be used). Performed By: #### C VDTBH #### [id number] [place], [place] [address]Dr. Bella Jerome DRUG SCREEN RAPID (URINE)on 09-05-2022 AMP Negative Normal NEGATIVE The Comment on above: Performed By: #### D RUGRPD #### [id number] [place], [place] [address]Dr. Bella Jerome BAR Negative Normal NEGATIVE The Comment on above: Performed By: #### D RUGRPD #### [id number] [place], [place] [address]Dr. Bella Jerome BUP Negative Normal NEGATIVE The Comment on above: Performed By: #### D RUGRPD #### [id number] [place], [place] [address]Dr. Bella Jerome BZO Negative Normal NEGATIVE The Comment on above: Performed By: #### D RUGRPD #### [address]xe[address] [place], [place] [address]Dr. Bella Jerome NGA Negative Normal NEGATIVE The Comment on above: Performed By: #### D RUGRPD #### [address] [place], [place] [address]Dr. Bella Jeroem CUT-OFFS SEE BELOW Normal The Comment on above: Result Comment: AMP (Amphetamine): 500ng/mL, BAR (Barbituates): 200 ng/mL, BZO (Benzodiazepines): 150 ng/mL, BUP (Buprenorphine): 10 ng/mL, NGA (Cocaine): 150 ng/mL, mAMP (Methamphetamine): 500 ng/mL, MTD (Methadone): 200 ng/mL, OPI (Opiates): 100 ng/mL, OXY (Oxycodone): 100 ng/mL, PCP (Phencyclidine): 25 ng/mL, PPX (Propoxyphene): 300 ng/mL, THC (Cannabinoids): 50 ng/mL, TCA (Trycyclic Antidepressants): 300 ng/mL Performed By: #### D RUGRPD #### [address] [place] [id number]. Bella Jerome DRUG CUT HEADER DRUG CLASS TEST SYSTEM CUT-OFF CONCENTRATIONS ARE FOLLOWS: Normal The Comment on above: Performed By: #### D RUGRPD #### [address] [place], [place] [address]Dr. Bella Jerome mAMP Negative Normal NEGATIVE The Comment on above: Performed By: #### D RUGRPD #### [address] [place], [place] [address]Dr. Bella Jerome MTD Negative Normal NEGATIVE The Comment on above: Performed By: #### D RUGRPD #### [address] [place], [place] [address]Dr. Bella Jerome OPI Negative Normal NEGATIVE The Comment on above: Performed By: #### D RUGRPD #### [address] [place], [place] [address]Dr. Bella Jerome OXY Negative Normal NEGATIVE The Comment on above: Performed By: #### D RUGRPD #### [address] [place], [place] [address]Dr. Liwally Justus PCP Negative Normal NEGATIVE The Comment on above: Performed By: #### D RUGRPD #### [id number] [place], [place] [address]Dr. Bella Jerome PPX Negative Normal NEGATIVE The Comment on above: Performed By: #### D RUGRPD #### [address] [place], [place] [address]Dr. Bella Jerome TCA Negative Normal NEGATIVE The Comment on above: Performed By: #### D RUGRPD #### [address] [place], [place] [address]Dr. Bella Jerome THC Negative Normal NEGATIVE The Comment on above: Performed By: #### D RUGRPD #### [address] [place], [place] [address]Bp. Bella Jerome TYPE AND SCREENon 09-05-2022 TYPE AND SCREEN Negative Normal [facility] Comment on above: Performed By: #### T NS #### [address] [place], [place] [address]Ds. Bella Jerome US PREG BIOPHY W NON [...] MANUELITO GREGG Date: 2022-08-31 17:06 Normal The US PREG GROWTHon 08-30-2022 US PREG GROWTH [...] MANUELITO GREGG Date: 2022-08-30 17:59 Normal The US PREG BIOPHY W NON STRESSo n [...] by: MANUELITO GREGG Date: 2022-08-24 17:10 Normal [facility] FREE T4on 08-21-2022 Free T4 [Mass/Vol] 0.90 ng/dL Normal 0.76-1.46 [facility] Comment on above: Performed By: #### C BC #### Laboratory [address] [address] [address] Bella Jerome TSHon 08-21-2022 TSH 1.033 uIU/mL Normal 0.358-3.740 [facility] Comment on above: Performed By: #### H H #### Laboratory [address] [place] [address] Dr. Bella Jerome PREG BIOPHY W NON [...] MANUELITO GREGG Date: 2022-08-17 18:33 Normal The GROUP B STREP CULTUREon 07-28 S. agalactiae Ag Ql (Unsp spec) Culture Observations: NEGATIVE FOR GROUP B STREPTOCOCCUS. Normal [facility] Comment on above: Performed By: #### G BSCX #### [address] [place], [place] [address]QvWill Jerome US PREG BIOPHY W NON STRESSo [...] by: MANUELITO GREGG Date: 2022-08-10 16:36 Normal [facility] US PREG GROWTHon 08-10-2022 US PREG GROWTH [...] by: MANUELITO GREGG Date: 2022-08-10 16:37 Normal [facility] US PREG GROWTHon 07-25-2022 US PREG GROWTH [...] by: MANUELITO GREGG Date: 2022-07-25 18:18 Normal [facility] FREE T4on 07-24-2022 Free T4 [Mass/Vol] 0.98 ng/dL Normal 0.76-1.46 [facility] Comment on above: Performed By: #### F T4 #### Laboratory [address] [address] [address] Bella Jerome TSHon 07-24-2022 TSH 1.196 uIU/mL Normal 0.358-3.740 [facility] Comment on above: Performed By: #### T SH #### [address] [place] [address]Dr. Bella Jerome UA (CLEAN/CATCH) CORPORATE OPERATIONS COMPLIANCE MANAGER/MICRO I F IND.on 07-20-2022 Bilirubin Ql (U) Negative Normal NEGATIVE [facility] Comment on above: Performed By: #### H H #### Laboratory [address] [address] [address] Bella Jerome Clarity (U) CLEAR Normal CLEAR [facility] Comment on above: Performed By: #### H H #### Laboratory [address] [address] [address] Bella Jerome Color (U) LT. YELLOW Normal YELLOW [facility] Comment on above: Performed By: #### H H #### Laboratory [address] [address] [address] Bella Jerome Glucose Ql (U) Negative Normal NEGATIVE [facility] Comment on above: Performed By: #### H H #### Laboratory [address] [address] [address] Bella Jerome Hemoglobin Ql (U) Negative Normal NEGATIVE [facility] Comment on above: Performed By: #### H H #### Laboratory [address] [place] [address] Dr. Bella Jerome Ketones Ql (U) Negative Normal NEGATIVE [facility] Comment on above: Performed By: #### H H #### Laboratory [address] [place] [address] Dr. Bella Jerome LEUKOCYTES Negative Normal NEGATIVE [facility] Comment on above: Performed By: #### H H #### Laboratory [address] [address] [address] Bella Jerome Nitrite Ql (U) Negative Normal NEGATIVE [facility] Comment on above: Performed By: #### H H #### Laboratory [address] [place] [address] Dr. Bella Jerome pH (U) 7.0 [pH] Normal 5-9 [facility] Comment on above: Performed By: #### H H #### Laboratory [address] [place] [address] Dr. Bella Jerome SPEC GRAVITY <=1.005 Abnormal 1.005-<=1.025 [facility] Comment on above: Performed By: #### H H #### Laboratory [address] [place] [address] Dr. Bella Jerome UA PROTEIN Negative Normal NEGATIVE/ TRACE The Comment on above: Performed By: #### H H #### Laboratory [address] [place] [address] Dr. Bella Jerome UR MICRO IND NOT INDICATED Normal [facility] Comment on above: Performed By: #### H H #### Laboratory [address] [address] [address] Bella Jerome Urobilinogen Qn (U) 0.2 {Kimberlee'U}/dL Normal 0.2 - 1. 0 [facility] Comment on above: Performed By: #### H H #### Laboratory [address] [address] [address] Bella Jerome US PREG GROWTHon 06-27-2022 [...] RAGINI SANTOS Date: 2022-06-27 16:23 Normal The FREE T4on 06-20-2022 Free T4 [Mass/Vol] 0.82 ng/dL Normal 0.76-1.46 [facility] [facility] Comment on above: Performed By: #### H H #### Laboratory [address] [place] [address] Dr. Bella Jerome GLUCOSE - 1HRon 06-20-2022 Glucose [Mass/Vol] 127 mg/dL Critically high 74-106 T [facility] Comment on above: Performed By: #### H H #### Laboratory [address] [address] [address] Bella Jerome HEMOGRAM AND PLATELon 2021 Hematocrit (Bld) [Volume fraction] 32.4 % Critically low 36.0-48.0 [facility] Comment on above: Performed By: #### H H #### Laboratory [address] [address] [address] Bella Jerome Hemoglobin (Bld) [Mass/Vol] 10.9 g/dL Critically low 12.0-16.0 The Comment on above: Performed By: #### H H #### Laboratory [address] [address] [address] Bella Jerome MCH (RBC) [Entitic mass] 32.9 pg Normal 26.7-34.0 [facility] Comment on above: Performed By: #### H H #### Laboratory [address] [place] [address] Dr. Bella Jerome MCHC (RBC) [Mass/Vol] 33.6 g/dL Normal 29.9-35.2 The Comment on above: Performed By: #### H H #### Laboratory [address] [place] [address] Dr. Bella Jerome MCV (RBC) [Entitic vol] 97.9 fL Normal 81.0-99.0 The Comment on above: Performed By: #### H H #### Laboratory [address] [place] [address] Dr. Bella Jerome PLT 241 103/ul Normal 150-450 The Comment on above: Performed By: #### H H #### Laboratory [address] [place] [address] Dr. Bella Jerome RBC 3.31 106/ul Critically low 4.20-5.40 [facility] Comment on above: Performed By: #### H H #### Laboratory [address] [place] [address] Dr. Bella Jerome WBC 11.3 103/ul Critically high 4.0-11.0 [facility] Comment on above: Performed By: #### H H #### Laboratory [address] [place], [place] [address] Dr. Bella Jerome TSHon 06-20-2022 TSH 3.044 uIU/mL Normal 0.358-3.740 [facility] Comment on above: Performed By: #### C #### Laboratory [address] [place], [place] [address] Dr. Bella Jerome US PREG INCOMPLETE ANATOMYon 05-24-2022 US PREG INCOMPLETE ANATOMY EXAMINATION: US PREG INCOMPLETE ANATOMY HISTORY: screening COMPARISON: Ultrasound anatomy 04/26/2022 FINDINGS: Presentation: Cephalic Heart rate: 154 bpm Anatomy: Cervical, thoracic, and lumbar spine HERNANDO: 09/13/2022 IMPRESSION: 1. Adequate visualization of the cervical, thoracic, and lumbar spine; no appreciable abnormality. Electronically authenticated by: RAGINI SANTOS Date: 2022-05-24 17:33 Normal The US PREG ANATOMY SINGLEon US PREG ANATOMY [...] MANUELITO GREGG Date: 2022-04-26 16:54 Normal The CHLAMYDIA/GONOCOCCUS FAVIAN (SW AB/URINE/PAPon 04-19-2022 Chlamydia trachomatis, FAVIAN Negative Normal Negative [facility] Comment on above: Performed By: #### C T/NGNA #### [id number] [address]Dr[address] Bella Jerome Neisseria gonorrhoeae, FAVIAN Negative Normal Negative [facility] Comment on above: Performed By: #### C T/NGNA #### [id number] [address]Dr[address] Bella Jerome VAGINITIS/VAGINOSIS DNA PROB Leonid 04-18-2022 Jessica species Negative Normal Negative [facility] Comment on above: Performed By: #### H H #### Laboratory [address] [address] [address] Bella Jerome Gardnerella vaginalis Negative Normal Negative [facility] Comment on above: Performed By: #### H H #### Laboratory [address] [address] [address] Bella Jerome Trichomonas vaginalis Negative Normal Negative [facility] Comment on above: Performed By: #### H H #### Laboratory [address] [address] [address] Bella Jerome FREE T4on 04-05-2022 Free T4 [Mass/Vol] 0.88 ng/dL Normal 0.76-1.46 [facility] Comment on above: Performed By: #### F T4 #### Laboratory [address] [place] [address] Dr. Bella Jerome TSHon 04-05-2022 TSH 1.786 uIU/mL Normal 0.358-3.740 [facility] Comment on above: Performed By: #### T SH #### [id number] [place], [place] [address]DcDr. Bella Jerome TSH RANGE SEE BELOW Normal [facility] Comment on above: Result Comment: <0.3 4 UIU/ml HYPERTHYROID 0.34-5.60 UIU/ml EUTHYROID >5.60 UIU/ml HYPOTHYROID Performed By: #### T SH #### [id number] [address]Dr. Bella Jerome FREE T4on 02-26-2022 Free T4 [Mass/Vol] 1.06 ng/dL Normal 0.76-1.46 [facility] Comment on above: Performed By: #### C BC #### Laboratory [address] [address] [address] Bella Jerome TSHon 02-26-2022 TSH 2.024 uIU/mL Normal 0.470-4.680 [facility] Comment on above: Performed By: #### C BC #### Laboratory [address] [place] [address] Dr. Bella Jerome TSH RANGE SEE BELOW Normal The Comment on above: Result Comment: <0.3 4 UIU/ml HYPERTHYROID 0.34-5.60 UIU/ml EUTHYROID >5.60 UIU/ml HYPOTHYROID Performed By: #### C BC #### Laboratory [address] [place] [address] Dr. Bella Jerome Vital Signs Date Time Vital Sign Value Performing Clinician Facility 08-18-2024 13:50-0400 Body mass index (BMI) [Ratio] 43.54 kg/m2 [facility] Work Phone: [facility] 08-18-2024 13:50-0400 Body weight 111.49 kg [facility] Work Phone: [facility] 08-18-2024 13:50-0400 Diastolic blood pressure 74 mm[Hg] [facility] Work Phone: [facility] 08-18-2024 13:50-0400 Systolic blood pressure 118 mm[Hg] Agus Juárez DO Work Phone: [facility] 08-04-2024 13:30-0400 Body mass index (BMI) [Ratio] 44.37 kg/m2 Marylou Priest SOLOMON Work Phone: [facility] 08-04-2024 13:30-0400 Body weight 113.63 kg Marylou Priest PA Work Phone: [facility] 08-04-2024 13:30-0400 Diastolic blood pressure 78 mm[Hg] Marylou Priest PA Work Phone: [facility] 08-04-2024 13:30-0400 Systolic blood pressure 128 mm[Hg] Marylou CARBAJAL Work Phone: [facility] 02-13-2024 11:24-0400 Body height 160.02 cm [facility] 02-13-2024 11:24-0400 Body mass index (BMI) [Ratio] 42.3 kg/m2 [facility] 02-13-2024 11:24-0400 Body weight 108.49 kg [facility] 02-13-2024 11:24-0400 Diastolic blood pressure 70 mm[Hg] [facility] 02-13-2024 11:24-0400 Heart rate 69 /min [facility] 02-13-2024 11:24-0400 Respiratory rate 18 /min [facility] 02-13-2024 11:24-0400 SaO2% (BldA) [Mass fraction] 98 % [facility] 02-13-2024 11:24-0400 Systolic blood pressure 118 mm[Hg] [facility] 10-31-2023 15:00-0500 Body height 160.02 cm Sandra Austin Other [facility] [employer] Other 10-31-2023 15:00-0500 Body mass index (BMI) [Ratio] 45.41 kg/m2 Sandra Austin Other [employer] Other 10-31-2023 15:00-0500 Body temperature 98.5 [degF] Sandra Geovanna Other [employer] Other 10-31-2023 15:00-0500 Body weight 116.3 kg Sandra Geovanna Other [employer] Other 10-31-2023 15:00-0500 Diastolic blood pressure 80 mm[Hg] Sandra Geovanna Other [employer] Other 10-31-2023 15:00-0500 Respiratory rate 18 /min Sandra Geovanna Other [employer] Other 10-31-2023 15:00-0500 SaO2% (BldA) [Mass fraction] 98 % Sandra Geovanna Other [employer] Other 10-31-2023 15:00-0500 Systolic blood pressure 128 mm[Hg] Sandra Geovanna Other [employer] Other 06-24-2023 14:30-0400 Body height 160.02 cm Sandra Geovanna Other [employer] Other 06-24-2023 14:30-0400 Body mass index (BMI) [Ratio] 44.87 kg/m2 Sandra Geovanna Other [employer] Other 06-24-2023 14:30-0400 Body weight 114.9 kg Sandra Geovanna Other [employer] Other 06-24-2023 14:30-0400 Diastolic blood pressure 60 mm[Hg] Sandra Austin Other [employer] Other 06-24-2023 14:30-0400 Respiratory rate 18 /min Sandra Geovanna Other [employer] Other 06-24-2023 14:30-0400 SaO2% (BldA) [Mass fraction] 99 % Sandra Pendletonaldo Other [employer] Other 06-24-2023 14:30-0400 Systolic blood pressure 110 mm[Hg] Sandra Geovanna Other [employer] Other 04-15-2023 09:25-0400 Body height 160.02 cm Ramonita Hornmond Other [employer] Other 04-15-2023 09:25-0400 Body mass index (BMI) [Ratio] 41.8 kg/m2 Ramonita Hornmond Other [employer] Other 04-15-2023 09:25-0400 Body temperature 98.5 [degF] Ramonita Hornmond Other [employer] Other 04-15-2023 09:25-0400 Body weight 107.05 kg Ramonita Hornmond Other [employer] Other 04-15-2023 09:25-0400 Respiratory rate 18 /min Ramonita Hornmond Other [employer] Other 04-15-2023 09:25-0400 SaO2% (BldA) [Mass fraction] 97 % Ramonita Hornmond Other [employer] Other 02-21-2023 14:45-0400 Body height 160.02 cm Sandra Austin Other [employer] Other 02-21-2023 14:45-0400 Body mass index (BMI) [Ratio] 41.39 kg/m2 Sandra Austin Other [employer] Other 02-21-2023 14:45-0400 Body weight 106.01 kg Sandra Austin Other [employer] Other 02-21-2023 14:45-0400 Diastolic blood pressure 60 mm[Hg] Sandra Austin Other [employer] Other 02-21-2023 14:45-0400 Respiratory rate 18 /min Sandra Austin Other [employer] Other 02-21-2023 14:45-0400 SaO2% (BldA) [Mass fraction] 98 % Sandra Austin Other [employer] Other 02-21-2023 14:45-0400 Systolic blood pressure 110 mm[Hg] Sandra Austin Other [employer] Other 12-24-2022 14:30-0500 Body height 160.02 cm Sandra Austin Other [employer] Other 12-24-2022 14:30-0500 Body mass index (BMI) [Ratio] 40.83 kg/m2 Sandra Austin Other [employer] Other 12-24-2022 14:30-0500 Body weight 104.55 kg Sandra Austin Other [employer] Other 12-24-2022 14:30-0500 Diastolic blood pressure 70 mm[Hg] Sandra Austin Other [employer] Other 12-24-2022 14:30-0500 Respiratory rate 18 /min Sandra Austin Other [employer] Other 12-24-2022 14:30-0500 SaO2% (BldA) [Mass fraction] 99 % Sandra Austin Other [employer] Other 12-24-2022 14:30-0500 Systolic blood pressure 118 mm[Hg] Sandra Austin Other [employer] Other 12-21-2021 16:30-0500 Body height 160.02 cm Sandra Austin Other [employer] Other 12-21-2021 16:30-0500 Body mass index (BMI) [Ratio] 38.58 kg/m2 Sandra Austin Other [employer] Other 12-21-2021 16:30-0500 Body temperature 97.3 [degF] Sandra Austin Other [employer] Other 12-21-2021 16:30-0500 Body weight 98.79 kg Sandra Austin Other [employer] Other 12-21-2021 16:30-0500 Diastolic blood pressure 60 mm[Hg] Sandra Austin Other [employer] Other 12-21-2021 16:30-0500 Respiratory rate 18 /min Sandra Austin Other [employer] Other 12-21-2021 16:30-0500 SaO2% (BldA) [Mass fraction] 99 % Sandra Austin Other [employer] Other 12-21-2021 16:30-0500 Systolic blood pressure 118 mm[Hg] Sandra Austin Other [employer] Other Encounters Encounter Date Encounter Type Care Provider Facility Start: 08-29-2024 End: 08-29-2024 Clinisync Result Encounter Agus Marquita DO Work Phone: [facility] Unsolicited Start: 08-29-2024 End: 08-29-2024 Clinisync Result Encounter Agus Marquita DO Work Phone: [facility] Unsolicited Start: 08-18-2024 End: 08-18-2024 Bamboo flowsheet Agus Marquita DO Work Phone: [facility] Start: 08-18-2024 End: 08-18-2024 Bamboo flowsheet Agus Marquita DO Work Phone: [facility] Start: 08-18-2024 End: 08-18-2024 flow sheet Agus Marquita DO Work Phone: [facility] Comment on above: 34 weeks gestation o f ; Nausea and vomiting, unspecified vomiting type; Gastroesophageal reflux disease, unspecified whether esophagitis present; Heartburn during in third trimester Start: 08-04-2024 End: 08-04-2024 Bamboo flowsheet Marylou CARBAJAL Work Phone: [facility] Start: 08-04-2024 End: 08-04-2024 Bamboo flowsheet Marylou CARBAJAL Work Phone: [facility] Start: 08-04-2024 End: 08-04-2024 ambulatory MARYLOU PRIEST Not Available Start: 08-04-2024 End: 08-04-2024 flow sheet Marylou CARBAJAL Work Phone: [facility] Comment on above: 32 weeks gestation o f ; Third trimester ; Anxiety, generalized ([facility]/HCC) Start: 07-21-2024 End: 07-21-2024 ambulatory AGUS MARQUITA [...] Not Available Start: 02-13-2024 End: 02-13-2024 ambulatory [facility] Work Phone: Start: 02-13-2024 End: 02-13-2024 Patient encounter procedure [facility] [place] Work Phone: Start: 12-16-2023 Non-patient / Non-visit [facility] Work Phone: Start: 12-16-2023 End: 12-16-2023 ambulatory AGUS MARQUITA Not Available Start: 10-31-2023 End: 10-31-2023 ambulatory Sandra Austin Other [employer] Other Start: 10-31-2023 Office outpatient vi sit 25 minutes Sandra Austin [facility] [place] Start: 07-19-2023 End: 07-19-2023 ambulatory Sandra Austin Other [employer] Other Start: 07-19-2023 Telephone encounter Sandra Guevara [facility] [place] Start: 06-24-2023 End: 06-24-2023 ambulatory Sandra Austin Other [employer] Other Start: 06-24-2023 Office outpatient vi sit 25 minutes Sandra Austin [facility] [place] Start: 06-04-2023 End: 06-04-2023 ambulatory Sandra Austin Other [employer] Other Start: 06-04-2023 Telephone encounter Sandra Guevara [facility] Start: 04-15-2023 End: 04-15-2023 ambulatory Ramonita Yari Other [employer] Other Start: 04-15-2023 Office outpatient vi sit 15 minutes Ramonita Greenberg [facility] [place] Start: 04-11-2023 End: 04-11-2023 ambulatory Sandra Austin Other [employer] Other Start: 04-11-2023 Telephone encounter Sandra Guevara [facility] [place] Start: 02-21-2023 Office outpatient vi sit 25 minutes Sandra Austin [facility] [place] Start: 02-21-2023 End: 02-22-2023 ambulatory SANDRA AUSTIN [place] [employer] Other Start: 01-04-2023 End: 01-04-2023 ambulatory Sandra Austin Other [employer] Other Start: 01-04-2023 Telephone encounter Sandra Guevara [facility] [place] Start: 12-30-2022 Encounter for genera l adult medical examination without abnormal findings SANDRA AUSTIN [facility] Start: 12-27-2022 End: 12-27-2022 ambulatory Sandra Austin Other [employer] Other Start: 12-27-2022 Telephone encounter Sandra Guevara [facility] Start: 12-26-2022 End: 12-27-2022 ambulatory SANDRA AUSTIN Facility:[facility]1 Start: 12-26-2022 End: 12-27-2022 Encounter for general adult medical examination without abnormal findings SANDRA GEOVANNA Facility:[facility]1 Start: 12-24-2022 End: 12-24-2022 ambulatory Sandra Austin Other [facility] [employer] Other Start: 12-24-2022 Encounter for genera l adult medical examination without abnormal findings Sandra Geovanna [facility] Start: 12-24-2022 Periodic preventive med est patient 18-39 yrs Sandra Geovanna [facility] [place] Start: 12-10-2022 End: 12-10-[address] AGUS [...] Facility:[facility] Start: 07-20-2022 End: 07-20-2022 ambulatory SANDRA GEOVANNA Facility:[facility] Start: 06-27-2022 End: 06-28-2022 ambulatory SANDRA GEOVANNA Facility:[facility] Start: 06-20-2022 End: 06-21-2022 ambulatory SANDRA GEOVANNA Facility:[facility] Start: 05-24-2022 End: 05-25-2022 ambulatory SANDRA GEOVANNA Facility:[facility] Start: 04-26-2022 End: 04-27-2022 ambulatory SANDRA GEOVANNA Facility:[facility]1 Start: 04-17-2022 End: 04-17-2022 ambulatory SANDRA GEOVANNA Facility:[facility] Start: 04-05-2022 End: 04-06-2022 ambulatory SANDRA GEOVANNA Facility:[facility]1 Start: 02-26-2022 End: 02-27-2022 ambulatory SANDRA GEOVANNA Facility:[facility]1 Start: 12-21-2021 End: 12-21-2021 ambulatory Sandra Geovanna Other [employer] Other Start: 12-21-2021 Office outpatient ne w 45 minutes Sandra Austin [facility] [place] Procedures Date Procedure Procedure Detail Performing Clinician Start: 08-29-2024 ALL THYROID STIM HORMONE Agus Marquita DO Work Phone: Start: 08-18-2024 Urnls dip stick/tabl et rgnt [...] Visit [facility] [address] [place] [id number] Agus Juárez, DO [address] [place] [address] [facility] Start: 09-01-2024 End: 09-01-2024 Patient encounter procedure 09/01/2024 1:30 PM EST Routine [facility] [address] [place] [id number] Agus Juárez, DO [address] [place] [address] [facility] Start: 08-18-2024 End: 08-18-2024 Patient encounter procedure 08/18/2024 1:30 PM EDT Routine [facility] [address] [place] [id number] Agus Juárez, DO [address] [place] [address] [facility] Start: 08-18-2024 End: 08-18-2024 Professional / ancillary services management 08/18/2024 1:00 PM EDT Ancillary Procedure [facility] [address] [place] [address] [facility] Patient Education Low back pain in adults [facility] Work Phone: Immunizations Immunization Date Immunization Notes Care Provider [facility] 09-08-2022 diphtheria, tetanus toxoids and pertussis vaccine Marylou CARBAJAL Work Phone: [facility] 09-12-2021 pneumococcal conjuga te vaccine, 13 valent Marylou CARBAJAL Work Phone: [facility] 08-14-1999 diphtheria, tetanus toxoids and acellular pertussis vaccine, unspecified formulation Marylou CARBAJAL Work Phone: [facility] 08-14-1999 haemophilus influenz ae type b vaccine, HbOC conjugate Marylou CARBAJAL Work Phone: [facility] 08-14-1999 measles, mumps and rubella virus vaccine Marylou CARBAJAL Work Phone: [facility] 08-14-1999 trivalent poliovirus vaccine, live, oral Marylou CARBAJAL Work Phone: [facility] 04-27-1998 diphtheria, tetanus toxoids and acellular pertussis vaccine, unspecified formulation Marylou CARBAJAL Work Phone: [facility] 04-27-1998 haemophilus influenz ae type b conjugate and Hepatitis B vaccine Marylou CARBAJAL Work Phone: [facility] 1997 diphtheria, tetanus toxoids and acellular pertussis vaccine, unspecified formulation Marylou CARBAJAL Work Phone: [facility] 1997 haemophilus influenz ae type b vaccine, HbOC conjugate Marylou CARBAJAL Work Phone: [facility] 1997 poliovirus vaccine, inactivated Marylou CARBAJAL Work Phone: [facility] 1997 diphtheria, tetanus toxoids and acellular pertussis vaccine, unspecified formulation Marylou CARBAJAL Work Phone: [facility] 1997 haemophilus influenz ae type b conjugate and Hepatitis B vaccine Marylou CARBAJAL Work Phone: [facility] 1997 poliovirus vaccine, inactivated Marylou CARBAJAL Work Phone: [facility] 1997 hepatitis B vaccine, pediatric or pediatric/adolescent dosage Marylou CARBAJAL Work Phone: [facility] Payers Date Payer Category Payer [facility] Insurance [employer] [id number] 2023 Unknown [employer] [id number] 2023-Present [address] [place] [address] [id number]. [id number] 2023 Unknown [id number] 2.16840.1.198504.19 1997 Unknown [id number] 2.16.840.1.805289.3.579.2. 593 1997 Unknown [id number] 2.16.840.1.071194.3.579.2. 593 1997 Unknown [id number] 2.16.840.1.887090.3.579.2. 593 1997 Unknown [id number] 2.16.840.1.527735.3.579.2. 593 1997 Unknown [id number] 2.16.840.1.968924.3.579.2. 593 1997 Unknown [id number] 2.16.840.1.223363.3.579.2. 593 1997 Unknown [id number] 2.16.840.1.135798.3.579.2. 593 1997 Unknown [id number] 2.16.840.1.916312.3.579.2. 593 1997 Unknown [id number] 2.16.840.1.184794.3.579.2. 593 1997 Unknown [id number] 2.16.840.1.949288.3.579.2. 593 1997 Unknown [id number] 2.16.840.1.584459.3.579.2. 593 1997 Unknown [id number] 2.16.840.1.945828.3.579.2. 593 1997 Unknown [id number] 2.16.840.1.157068.3.579.2. 593 1997 Unknown [id number] 2.16.840.1.175138.3.579.2. 593 1997 Unknown [id number] 2.16.840.1.645769.3.579.2. 593 1997 Unknown [id number] 2.16.840.1.942283.3.579.2. 593 1997 Unknown [id number] 2.16.840.1.569789.3.579.2. 593 1997 Unknown [id number] 2.16.840.1.743749.3.579.2. 593 1997 Unknown [id number] 2.16.840.1.337884.3.579.2. 593 1997 Unknown [id number] 2.16.840.1.301883.3.579.2. 593 1997 Unknown [id number] 2.16.840.1.958743.3.579.2. 593 1997 Unknown [id number] 2.16.840.1.749468.3.579.2. 593 1997 Unknown [id number] 2.16.840.1.939290.3.579.2. 593 1997 Unknown [id number] 2.16.840.1.436903.3.579.2. 1259 1997 Unknown [id number] 2.16.840.1.007699.3.579.2. 9 1997 Unknown [id number] 2.16.840.1.015274.3.579.2. 1258 1997 Unknown [id number] 2.16.840.1.944801.3.579.2. 9 1997 Unknown [id number] 2.16.840.1.410337.3.579.2. 1258 1997 Unknown [id number] 2.16.840.1.774619.3.579.2. 1258 1997 Unknown [id number] 2.16.840.1.277045.3.579.2. 1258 1997 Unknown [id number] 2.16.840.1.036075.3.579.2. 1258 1997 Unknown [id number] 2.16.840.1.053955.3.579.2. 1259 1957 Medicaid [id number] 2.16.840.1.887602.19 1959 Private Health Insurance [id number] 2.16.840.1.917175.19 Self-pay Self Pay [id number] Unknown [place] [id number] Social History Date Type Detail Facility Start: 08-02-2023 End: 11-25-2023 Sex Assigned At [facility] [employer] Other Start: 1995 Sex Assigned At Female F [facility] Start: 08-02-2023 [facility] Start: 08-02-2023 Tobacco use and exposure Smokeless tobacco non-user [facility] Start: 07-21-2024 End: 08-04-2024 Alcoholic beverage intake Ex-drinker (finding) [facility] Start: 08-02-2023 End: 11-25-2023 History of Social function [facility] Start: 01-03-2024 [facility] Start: 1995 Sex assigned at Not on file N [facility] Clinical Notes 12-21-2021 to 08-18-2024 Justine Mathew [...] before breakfast, Do not crush or chew. [id number] ( 1 + IRON PO) Oral ALLERGIES [...] illness Paternal Grandfather Arpit Cancer Paternal Grandfather Aript Diabetes Paternal Grandfather Arpit SURGICAL HISTORY Past [...] nursing note reviewed. Exam conducted with a retail consultant present. Vitals: Estimated body mass index is [...] Agus Juárez DO documented in this encounter [facility] 08-04-2024 History of Presen t [...] before breakfast, Do not crush or chew. [id number] ( 1 + IRON PO) Oral ALLERGIES [...] calculated from the following: Height as of 10/6/23: 5' 3 . Weight as of this [...] of: SOLOMON Turner documented in this encounter [facility] 10-31-2023 Evaluation note Encounter Date [...] E28.2) She will continue to follow with [facility] and continue healthy lifestyle changes that she [...] course of antibiotic. Increase fluids and rest. [id number] antipyretics as needed. Warning signs and symptoms reviewed with patient today. Patient to go immediately to the ER should she experience any of these. Patient to notify office should her symptoms persist and not improve. Patient verbalizes understanding and agrees to treatment plan. [employer] Other 09-22-2023 Evaluation note* Encounter Date Diagnosis Assessment Notes Treatment Notes Treatment Clinical Notes Jun, Vitamin D insufficiency (ICD-10 - E55.9) [employer] Other 08-28-2023 Evaluation note* Encounter Date Diagnosis [...] E28.2) She will continue to follow with [facility] and continue healthy lifestyle changes that she [...] ENT today. Specialty notes reviewed as received. [employer] Other 08-08-2023 Evaluation note* Encounter Date Diagnosis Assessment Notes Treatment Notes Treatment Clinical Notes May, Other atopic dermatitis (ICD-10 - L20.89) May, Acute otitis externa of both ears, unspecified type (ICD-10 - H60.503) [employer] Other 06-19-2023 Evaluation note* Encounter Date Diagnosis [...] no improvement in 2 to 3 days [employer] Other 06-15-2023 Evaluation note* Encounter Date Diagnosis Assessment Notes Treatment Notes Treatment Clinical Notes Mar, Anxiety (ICD-10 - F41.9) [employer] Other 04-27-2023 Evaluation note* Encounter Date Diagnosis [...] plan on rechecking this at May appointment. [employer] Other 03-10-2023 Evaluation note* Encounter Date Diagnosis Assessment Notes Treatment Notes Treatment Clinical Notes Dec, Bacterial conjunctivitis (ICD-10 - H10.9) [employer] Other 03-02-2023 Evaluation note* Encounter Date Diagnosis Assessment Notes Treatment Notes Treatment Clinical Notes Dec, Vitamin D insufficiency (ICD-10 - E55.9) Dec, Elevated alkaline phosphatase level (ICD-10 - R74.8) Dec, Other specified hypothyroidism (ICD-10 - E03.8) [employer] Other 02-27-2023 Evaluation note* Encounter Date Diagnosis [...] ordered. Follow routinely with eye doctor, dentist, [facility]ILY [facility]GRAM [facility]. Patient is advised to work on healthy diet choices and appropriate servings, weight control, regular exercise as directed, reduced fat intake, and salt avoidance. Patient voiced understanding of this and agrees to this plan. Nov, PCOS (polycystic ovarian syndrome) (ICD-10 - E28.2) Routine lab work ordered. She will continue to follow with OB-FAMILY PROGRAM SPECIALIST and continue healthy lifestyle changes that she [...] homicidal ideations. Started on Celexa by her FAMILY PROGRAM SPECIALIST. Very stable on Celexa 20 mg daily. [...] her ears still persist after starting this. [employer] Other 02-24-2022 Evaluation note* Encounter Date Diagnosis Assessment Notes Treatment Notes Treatment Clinical Notes Nov, Prediabetes (ICD-10 - R73.03) She was recently dx with prediabetes and was started on Metformin 500 mg BID 2 weeks ago by her OB-FAMILY PROGRAM SPECIALIST. She would like to follow with our [...] - E28.2) She is following with her OB-FAMILY PROGRAM SPECIALIST for her PCOS and is currently on Metformin 500 mg BID and is taking medication to help her get . She will continue to follow with OB-FAMILY PROGRAM SPECIALIST and continue healthy lifestyle changes that she [...] of fatigue, difficulty losing weight by her OB-FAMILY PROGRAM SPECIALIST. She would like to start following with [...] of this and agrees to this plan. [employer] Other Evaluation note* Diagnosis Onset Date Resolution Status 8 weeks gestation of acute Low back pain [facility] Work Phone: Evaluation note* Diagnosis 32 weeks [...] THIRD NIPPLE REMOVED Surgical History Colonoscopy-normal 2018 [employer] Other Summary Purpose Family History Relationship Condition [...] Right ear pain (H92. 01) Referral Organization [facility] Hernandez Referring Provider First Name [...] content) DATE CREATED AUTHOR 02/25/2023 [employer] [facility] DATE CREATED AUTHOR AUTHOR'S ORGANIZ ATION 08/06/2024 [facility] Special[facility] EPIC Care Teams (unrecognized sec [...] February 13, 2024 End: February 13, 2024 Molder Relationship Specialty Start Date End Date Sandra Austin NP [address] [place] [address] PCP - General 07/19/23 Molder Relationship Specialty Start Date End Date Sandra Austin NP [address] [place] [address] PCP General 07/19/23 Molder Relationship Specialty Start Date End Date Sandra Austin NP [address] [place] [address] [facility] 07/19/23 Molder Relationship Specialty Start Date End Date Sandra Austin NP [address] [place] [address] [facility] 07/19/23 Molder Relationship Specialty Start Date End Date Sandra Austin NP [address] [place] [address] [facility] 07/19/23 Goals (unrecognized section and content) Goals [...] BE BASED ON THE PRIMARY CLINICAL RECORDS. [facility]. provides no warranty or guarantee of the accuracy or completeness of information in this document.
== END 2024-09-01 21:02 | disposition home or self-care (01) ==
LOC: LAB 21:01
PROVIDERS: Visit Provider Obstetrics & Gynecology
DX: Z34.93 Encounter for supervision of normal pregnancy, unspecified, third trimester (principal)
CPT/HCPCS: 87081; 87150

== ENCOUNTER 2024-09-02 07:07 | Outpatient (OUT) | payer OTHER, SELFPAY ==
--- NOTE | 2024-09-02 | US_ITS ---
[place] [address] Patient Name: SOFIA ZEPEDA MRN: [facility]:[id number] date: 1995 Sex: F Assigned Patient Location: [facility] Current Patient Location: Accession/Order Number: [id number] Exam Date: 09/02/2024 15:30 Report Date: 09/03/2024 04:09 At the request of: AGUS SANTO Procedure: US OB BPP w non-stress EXAMINATION: US OB BPP w non-stress HISTORY:ABNORMAL TSH R79.89 COMPARISON: Ultrasound OB biophysical 08/26/2024 TECHNIQUE: Ultrasound biophysical profile was performed in the radiology department. BREATHING MOVEMENTS: 2 GROSS BODY MOVEMENTS: 2 TONE: 2 QUALITATIVE AMNIOTIC FLUID VOLUME: 2 PRESENTATION: CEPHALIC HEART RATE: 133.00 bpm AMNIOTIC FLUID VOLUME: 20.20 cm GESTATIONAL AGE: 36 weeks 5 days US/US OB BPP w non-stress IMPRESSION: Total biophysical profile score: 8 Electronically authenticated by: RAGINI SANTOS Date: 09/03/2024 04:09
--- OUTSIDE RECORDS SUMMARY | 2024-09-02 07:11 | XMS_ITS | CCD ---
Author Organization [facility] CliniSyut Care Team Providers Care Rod Piler Name Role Phone [facility] Unavailable KAP, SANDRA Primary Care Unavailable MARQUITA ., DR GOLDSMITH Attending Unavailable CHASELEY, DR MANUELITO Foley Consulting Unavailable MARQUITA ., DR GOLDSMITH Admitting Unavailable MARQUITA ., DR GOLDSMITH Consulting Unavailable BRIAN, VIRGINIA Admitting Unavailable VIRGINIA TORRES Attending Unavailable KAP, SANDRA Primary Care Unavailable CHASELEY, DR MANUELITO Foley Consulting Unavailable MARQUITA ., [...] MARQUITA ., DR GOLDSMITH Admitting Unavailable KAP, [facility] Primary Care Unavailable MARQUITA ., DR GOLDSMITH Attending Unavailable CHASELEY, DR MANUELITO Foley Consulting Unavailable MARQUITA ., DR GOLDSMITH Admitting Unavailable MARQUITA ., DR GOLDSMITH Consulting Unavailable MARQUITA ., DR GOLDSMITH Attending Unavailable MARQUITA ., DR GOLDSMITH Admitting Unavailable KAPLE, SANDRA Primary Care Unavailable MARQUITA ., DR GOLDSMITH Consulting Unavailable KAPLE, SANDRA Primary Care Unavailable MARQUITA ., DR GOLSDMITH Attending Unavailable MARQUITA ., DR GOLDSMITH Consulting Unavailable MARQUITA ., DR GOLDSMITH Admitting Unavailable KAPLE, SANDRA Primary Care Unavailable MARQUITA ., DR GOLDSMITH Attending Unavailable CHASELEY, DR MANUELITO Foley Consulting Unavailable MARQUITA ., [...] GOLDSMITH Admitting Unavailable MARQIUTA ., DR GOLDSMITH Attending Unavailable KAPLE, SANDRA Primary Care Unavailable MARQUITA ., DR GOLDSMITH Admitting Unavailable MARQUITA ., DR GOLDSMITH Consulting Unavailable VIRGINIA TORRES Consulting Unavailable MARQUITA ., DR GOLDSMITH Procedure Practitioner Unavail able KAPLE, SANDRA Primary Care Unavailable MARQUITA ., DR GOLDSMITH Attending Unavailable MARQUITA ., DR GOLDSMITH Consulting Unavailable MARQUITA ., DR GOLDSMITH Admitting Unavailable ASNDRA AUSTIN Primary Care Unavailable JODIE ., DR HU Admitting Unavailabl e JODIE ., DR HU Attending Unavailabl e LYK ., DR HU Consulting Unavailabl e CHASELEY, DR MANUELITO Foley Consulting Unavailable MARQUITA ., DR GOLDSMITH Consulting Unavailable SANDRA AUSTIN Primary Care Unavailable MARQUITA ., DR GOLDSMITH Attending Unavailable CHASELEY, DR MANUELITO Foley Consulting Unavailable MARQUITA ., DR GOLDSMITH Admitting Unavailable MARQUITA ., DR GOLDSMITH Consulting Unavailable Yari Ramonita Unavailable MARYLOU PRIEST Attending Unavailable MARQUITA, AGUS Attending Unavailable MARQUITA, AGUS Attending Unavailable MARQUITA, AGUS Attending Unavailable MARYLOU PRIEST Attending Unavailable MARQUITA, AGUS Attending Unavailable MARQUITA, AGUS Attending Unavailable MARQUITA, AGUS Attending Unavailable Geovanna POUNCING MACHINE OPERATOR, Sandra Hall Primary Care Provider [phone] Medications Current Medications Medication Drug Class(es) Dates [...] hours February 13, 2024 12:00am polymyxin b 67728 unt/ml / trimethoprim 1 mg/ml ophthalmic solution (3 sources) Dihydrofolate Reductase Inhibitor Antibacterial, Polymyxin-class Antibacterial Start: 01-04-2023 Polymyxin B-Trimethoprim 43641-8.1 UNIT/ML 1 drop into affected eye Ophthalmic every 3 hours up to six times daily for 7 days Dec, Active (10 sources) Active Poiwszqu-Amf-Bl-FA ( 1 + IRON PO) (7 sources) Pfclurqc-Epn-Jb-FA ( 1 + IRON PO) Take by [...] acid 7540 MG / polyethylene glycol 3350 55815 MG / potassium chloride 1200 MG / sodium ascorbate 20097 MG / sodium chloride 3200 MG Powder for Oral Solution) / 1 (polyethylene glycol 3350 463193 MG / potassium chloride 1000 MG / [...] HORMONEon 1 10-29-2023 TSH Qn 0.716 m[IU]/L [facility] Healthcar e Urinalysis macro (dipstick) panel (U)on 08-18-2024 Bilirubin, UA Negative Negative - 4(70) +++ mg/dL [facility] Healthcare Blood, UA Negative Negative - 50 Jose Manuel/mcL [facility] Clarity, UA Clear [facility] re Color, UA Yellow [facility] Glucose, UA Negative Negative - 1999(110) ++++ mg/dL [facility] Interpretation and review of laboratory results Normal [facility] Ketones, UA Negative Negative - 160(16) ++++ mg/dL [facility] Healthcare Leukocytes, UA Negative Negative - 500+++ Alexys/mcL [facility] Healthcare Nitrite, UA Negative Negative - Positive [facility] pH, UA 6.5 5 - 9 [facility] Healthcar e Protein, UA Negative Negative - 1999(20) ++++ mg/dL [facility] Healthcare Spec Grav, UA 1.01 1 - 1.03 [facility] Health care Urobilinogen, UA 0.2 0.2 - 12 mg/dL [facility] Urinalysis macro (dipstick) panel (U)on 08-04-2024 Bilirubin, UA Negative Negative - 4(70) +++ mg/dL [facility] Blood, UA Negative Negative - 50 Jose Manuel/mcL [facility] Healthcare Clarity, UA Clear [facility] Color, UA Yellow [facility] Healthcar e Glucose, UA Negative Negative - 1999(110) ++++ mg/dL [facility] Interpretation and review of laboratory results Abnormal [facility] Ketones, UA Negative Negative - 160(16) ++++ mg/dL [facility] Healthcare Leukocytes, UA Trace Negative - 500+++ Alexys/mcL [facility] Healthcare Nitrite, UA Negative Negative - Positive [facility] pH, UA 7.0 5 - 9 [facility] Healthcar e Protein, UA Negative Negative - 1999(20) ++++ mg/dL [facility] Healthcare Spec Grav, UA 1.015 1 - 1.03 [facility] Health care Urobilinogen, UA 0.2 0.2 - 12 mg/dL [facility] Healthcare [facility] Healthcar e Human papilloma virus 16+18+ 31+33+35+39+45+51+52+56+58+59+66+68 DNA [Presence] in Anders 12-16-2023 HPV 16+18+31+33+35+39+45 +51+52+56+58+59+66+6 8 DNA Probe+sig amp Ql (Cvx) Note . [facility] Comment on above: TESTS RESULT FLAG UN ITS REF RANGE LAB DI AGNOSIS: 02 NEGATIVE FOR INTRAEPITHELIAL LESION OR MALIGNANCY.Specimen adequacy: 02 Satisfactory for evaluation. Endocervical and/or squamous metaplastic cells (endocervical component) are present.Performed by: 02 Raeann Duran, [employer] (ASC). 02Note: Note 02 The Pap smear is a screening test designed to aid in the detection of premalignant and malignant conditions of the uterine cervix. It is not a diagnostic procedure and should not be used as the sole means of detecting cervical cancer. Both false-positive and false-negative reports do occur.Test Methodology: Note 02 The [employer]) Nursing Teacher was unable to read this specimen. Therefore a manual review was performed. ----- FLAG LEGEND: L-Low Normal,H-High Normal,LL-Alert Low,HH-Alert High <-Panic Low,>-Panic High,A-Abnormal,AA-Critical Abnormal ---Performed at:[address] [facility] [place] [place] [address] Heavenly Serrano MD, . 02 The HPV DNA reflex criteria were not met with this specimen result therefore, no HPV testing was performed.The HPV DNA reflex criteria were not met with this specimenresult therefore, no HPV testing was performed.Performed at: =G - [facility] [address], [place] [id number] Director: Heavenly Serrano MD, Phone: [phone] at: [facility] [facility] [id number] Director: Heavenly Srerano MD, Phone: [phone] No Panel Informationon 12-16 Reference Lab Test Patient Age Note . [facility] Comment on above: TESTS RESULT FLAG UN ITS REF RANGE LAB Clinician Provided Cytology Information Source.............Cervix No. of containers..01 ThinPrep VialAge Niruo AGUSTINAOG Leslye... FLAG LEGEND: L-Low Normal,H-High Normal,LL-Alert Low,HH-Alert High <-Panic Low,>-Panic High,A-Abnormal,AA-Critical Abnormal ---Performed at:01 =G [facility] [address] [facility] [place] [id number] Heavenly Serrano MD, A1C HEMOGLOBINon 10-31-2023 HbA1c (Bld) [Mass fraction] 5.8 % tydy Other HbA1c (Bld) [Mass fraction]o n 10-31-2023 A1C HEMOGLOBIN [employer] Other A1C HEMOGLOBINon 06-24-2023 HbA1c (Bld) [Mass fraction] 5.2 % tydy Other HbA1c (Bld) [Mass fraction]o n 06-24-2023 A1C HEMOGLOBIN [employer] Other Quick Strepon 04-15-2023 S. pyogenes Org specific cx Ql (Throat) Positive tydy Other Quick Strep [facility] [facility] Other FREE T4on 02-21-2023 Free T4 [Mass/Vol] 0.89 ng/dL Normal 0.76-1.46 [facility] Comment on above: Performed By: #### H H #### [facility] [address] [place] [address] Dr. Bella Jerome PROF 14(COMP METB)on 023 Albumin [Mass/Vol] 3.7 g/dL Normal 3.4-5.0 [facility] Comment on above: Performed By: #### H H #### [facility] [address] [place] [address] Dr. Bella Jerome Albumin/Globulin [Mass ratio] 0.9 {ratio} Normal [facility] Comment on above: Performed By: #### H H #### [facility] [address] [place] [address] Dr. Bella Jerome ALP [Catalytic activity/Vol] 132 U/L Critically high 46-116 [facility] Comment on above: Performed By: #### H H #### [facility] [address] [place] [address] Dr. Bella Jerome ALT [Catalytic activity/Vol] 32 U/L Normal 14-59 [facility] Comment on above: Performed By: #### H H #### [facility] [address] [place] [address] Dr. Bella Jerome Anion gap [Moles/Vol] 12.8 mmol/L Normal [facility] Comment on above: Performed By: #### H H #### [facility] [address] [place] [address] Dr. Bella Jerome AST [Catalytic activity/Vol] 23 U/L Normal 15-37 [facility] Comment on above: Performed By: #### H H #### [facility] [address] [address] [address] Bella Jerome Bilirubin [Mass/Vol] 0.6 mg/dL Normal 0.2-1.0 [facility] Comment on above: Performed By: #### H H #### [facility] [address] [address] [address] Bella Jerome Calcium [Mass/Vol] 9.0 mg/dL Normal 8.5-10.1 [facility] Comment on above: Performed By: #### H H #### [facility] [address] [address] [address] Bella Jerome Chloride [Moles/Vol] 102 mmol/L Normal 98-107 [facility] Comment on above: Performed By: #### H H #### [facility] [address] [place] [address] Dr. Bella Jerome CO2 [Moles/Vol] 28.2 mmol/L Normal 21.0-32.0 [facility] Comment on above: Performed By: #### H H #### [facility] [address] [address] [address] Bella Jerome Creatinine [Mass/Vol] 0.67 mg/dL Normal 0.55-1.02 [facility] Comment on above: Performed By: #### H H #### [facility] [address] [address] [address] Bella Jerome EGFR-AF SWEDISH >60 Normal >=60 [facility] Comment on above: Performed By: #### H H #### [facility] [address] [address] [address] Bella Jerome EGFR-NON AF SWEDISH >60 Normal >=60 [facility] Comment on above: Performed By: #### H H #### [facility] [address] [place] [address] Dr. Bella Jerome Globulin (S) [Mass/Vol] 4.2 g/dL Normal [facility] Comment on above: Performed By: #### H H #### [facility] [address] [address] [address] Bella Jerome Glucose [Mass/Vol] 88 mg/dL Normal 74-106 [facility] Comment on above: Performed By: #### H H #### [facility] [address] [address] [address] Bella Jerome Potassium [Moles/Vol] 4.0 mmol/L Normal 3.5-5.1 [facility] Comment on above: Performed By: #### H H #### [facility] [address] [address] [address] Bella Jerome Protein [Mass/Vol] 7.9 g/dL Normal 6.4-8.2 [facility] Comment on above: Performed By: #### H H #### [facility] [address] [address] [address] Bella Jerome Sodium [Moles/Vol] 139 mmol/L Normal 136-145 [facility] Comment on above: Performed By: #### H H #### [facility] [address] [place] [address] Dr. Bella Jerome Urea nitrogen [Mass/Vol] 12.0 mg/dL Normal 7.0-18.0 [facility] Comment on above: Performed By: #### H H #### [facility] [address] [place] [address] Dr. Bella Jerome Urea nitrogen/Creatinine [Mass ratio] 17.9 mg/mg Normal [facility] Comment on above: Performed By: #### H H #### [facility] [address] [address] [address] Bella Jerome TSHon 02-21-2023 TSH 2.463 uIU/mL Normal 0.358-3.740 [facility] Comment on above: Performed By: #### H H #### [facility] [address] [address] [address] Bella Jerome VITAMIN D 25 OHon 02-21-2023 VIT D 25-OH 23.1 ng/mL Normal [facility] Comment on above: Performed By: #### H H #### [facility] [address] [place] [address] Dr. Bella Jerome VIT D RANGES SEE BELOW Normal [facility] Comment on above: Result Comment: <20 ng/mL Vit D deficient 20 - <30 ng/mL Vit D insufficient 30 - 100 ng/mL Vit D sufficient >100 ng/mL Potential Toxicity Performed By: #### H H #### [facility] [address] [place] [address] Dr. Bella Jerome CBC AUTO DIFFon 12-26-2022 BASO # 0.0 103/ul Normal 0.0-0.1 [facility] Comment on above: Performed By: #### C BC #### [facility] [address] [place] [address] Dr. Bella Jerome Basophils/100 WBC (Bld) 0.3 % Normal 0.2-2.0 [facility] Comment on above: Performed By: #### C BC #### [facility] [address] [place] [address] Dr. Bella Jerome EO # 0.1 103/ul Normal 0.0-0.7 [facility] Comment on above: Performed By: #### C BC #### [facility] [address] [place] [address] Dr. Bella Jerome Eosinophils/100 WBC (Bld) 1.6 % Normal 0.9-7.0 [facility] Comment on above: Performed By: #### C BC #### [facility] [address] [place] [address] Dr. Bella Jerome Erythrocyte distribution width (RBC) [Ratio] 12.7 % Normal 11.0-15.0 [facility] Comment on above: Performed By: #### C BC #### [facility] [address] [place] [address] Dr. Bella Jerome Hematocrit (Bld) [Volume fraction] 37.2 % Normal 36.0-48.0 [facility] Comment on above: Performed By: #### C BC #### [facility] [address] [place] [address] Dr. Bella Jerome Hemoglobin (Bld) [Mass/Vol] 12.5 g/dL Normal 12.0-16.0 [facility] Comment on above: Performed By: #### C BC #### [facility] [address] [place] [address] Dr. Bella Jerome IG # 0.02 10e3/ul Normal 0.00-0.03 [facility] Comment on above: Performed By: #### C BC #### [facility] [address] [place] [address] Dr. Bella Jerome IG % 0.3 % Normal 0.0-0.5 [facility] Comment on above: Performed By: #### C BC #### [facility] [address] [place] [address] Dr. Bella Jerome LYMPH # 2.3 103/ul Normal 1.2-3.8 [facility] Comment on above: Performed By: #### C BC #### [facility] [address] [place] [address] Dr. Bella Jerome Lymphocytes/100 WBC (Bld) 34.1 % Normal 20.5-60.0 [facility] Comment on above: Performed By: #### C BC #### [facility] [address] [place] [address] Dr. Bella Jerome MANUAL DIFF REQ NO Normal [facility] Comment on above: Performed By: #### C BC #### [facility] [address] [place] [address] Dr. Bella Jerome MCH (RBC) [Entitic mass] 30.9 pg Normal 26.7-34.0 [facility] Comment on above: Performed By: #### C BC #### [facility] [address] [place] [address] Dr. Bella Jerome MCHC (RBC) [Mass/Vol] 33.6 g/dL Normal 29.9-35.2 [facility] Comment on above: Performed By: #### C BC #### [facility] [address] [place] [address] Dr. Bella Jerome MCV (RBC) [Entitic vol] 91.9 fL Normal 81.0-99.0 [facility] Comment on above: Performed By: #### C BC #### [facility] [address] [address] [address] Bella Jerome MONO # 0.4 103/ul Normal 0.3-0.8 [facility] Comment on above: Performed By: #### C BC #### [facility] [address] [address] [address] Bella Jerome Monocytes/100 WBC (Bld) 5.1 % Normal 1.7-12.0 [facility] Comment on above: Performed By: #### C BC #### [facility] [address] [place] [address] Dr. Bella Jerome NEUT # 4.0 103/ul Normal 1.4-6.5 [facility] Comment on above: Performed By: #### C BC #### [facility] [address] [place] [address] Dr. Bella Jerome Neutrophils/100 WBC (Bld) 58.6 % Normal 43.0-75.0 [facility] Comment on above: Performed By: #### C BC #### [facility] [address] [place] [address] Dr. Bella Jerome Platelet mean volume (Bld) [Entitic vol] 11.5 fL Normal 9.5-13.5 [facility] Comment on above: Performed By: #### C BC #### [facility] [address] [place] [address] Dr. Bella Jerome PLT 243 103/ul Normal 150-450 [facility] Comment on above: Performed By: #### C BC #### [facility] [address] [place] [address] Dr. Bella Jerome RBC 4.05 106/ul Critically low 4.20-5.40 [facility] Comment on above: Performed By: #### C BC #### [facility] [address] [place] [address] Dr. Bella Jerome WBC 6.8 103/ul Normal 4.0-11.0 [facility] Comment on above: Performed By: #### C BC #### [facility] [address] [address] [address] Bella Jerome FREE T4on 12-26-2022 Free T4 [Mass/Vol] 1.05 ng/dL Normal 0.76-1.46 [facility] Comment on above: Performed By: #### F T4, VITAD, B12FOL, IRON ####[facility] [id number] [id number] Bella Jerome GLYCOHEMOGLOBIN A1Con 2022 ADA RECOMMENDATION SEE BELOW Normal [facility] Comment on above: Result Comment: ADA RECOMMENDED LIMIT 4.0 - 6.0 ADA THERAPEUTIC TARGET < 7.0 ACTION SUGGESTED > 7.0 Performed By: #### A 1C #### [facility] [address] [address] [address] Bella Jerome Glucose [Mass/Vol] 103 mg/dL Normal [facility] Comment on above: Performed By: #### A 1C #### [facility] [address] [address] [address] Bella Jerome HbA1c (Bld) [Mass fraction] 5.2 % Normal 4.5-6.2 [facility] Comment on above: Performed By: #### A 1C #### [facility] [address] [address] [address] Bella Jerome IRONon 12-26-2022 Iron [Mass/Vol] 74.0 ug/dL Normal 50.0-170.0 [facility] Comment on above: Performed By: #### F T4, VITAD, B12FOL, IRON ####[facility] [id number] [id number]. Bella Jerome LIPID PROFILEon 12-26-2022 CHOL-HDL RATIO NORM SEE BELOW Normal [facility] Comment on above: Result Comment: 3.3 - 4.4 LOW RISK 4.4 - 7.1 AVERAGE RISK 7.1 - 11.0 MODERATE RISK >11.0 HIGH RISK Performed By: #### C MP, TSH, LIPID #### [facility] [address] [address] [address] Bella Jerome Cholesterol [Mass/Vol] 153 mg/dL Normal <=200 [facility] Comment on above: Performed By: #### C MP, TSH, LIPID #### [facility] [address] [address] [address] Bella Jerome Cholesterol in HDL [Mass/Vol] 67 mg/dL Critically high 40-60 [facility] Comment on above: Performed By: #### C MP, TSH, LIPID #### [facility] [address] [address] [address] Bella Jerome Cholesterol in LDL [Mass/Vol] 77.2 mg/dL Normal [facility] Comment on above: Performed By: #### C MP, TSH, LIPID #### [facility] [address] [address] [address] Bella Jerome Cholesterol.total/Ch olesterol in HDL [Mass ratio] 2.3 {ratio} Normal [facility] Comment on above: Performed By: #### C MP, TSH, LIPID #### [facility] [address] [address] [address] Bella Jerome HDL NORMAL > or = 60 mg/dl - LOW CARDIOVASCULAR RISK <40 mg/dl - HIGH CARDIOVASCULAR RISK Normal [facility] Comment on above: Performed By: #### C MP, TSH, LIPID #### [facility] [address] [address] [address] Bella Jerome LDL CALC NORMAL SEE BELOW Normal [facility] Comment on above: Result Comment: <100 mg/dl OPTIMAL 100 - 129 mg/dl NEAR OR ABOVE OPTIMAL 130 - 159 mg/dl BORDERLINE HIGH 160 - 189 mg/dl HIGH >190 mg/dl VERY HIGH Performed By: #### C MP, TSH, LIPID #### [facility] [address] [address] [address] Bella Jerome Triglyceride [Mass/Vol] 44 mg/dL Normal <=150 [facility] Comment on above: Performed By: #### C MP, TSH, LIPID #### [facility] [address] [address] [address] Bella Jerome VLDL CALC 8.8 mg/dL Normal [facility] Comment on above: Performed By: #### C MP, TSH, LIPID #### [facility] [address] [address] [address] Bella Jerome MICROALB CREAT RATIO RANDOMo n 12-26-2022 mALB 2.3 mg/L Normal <=30.0 [facility] Comment on above: Performed By: #### H H #### [facility] [address] [address] [address] Bella Jerome MALB CR RATIO 17.4 mg/g Normal 0.0-29.9 [facility] Comment on above: Performed By: #### H H #### [facility] [address] [address] [address] Bella Jerome MALB CR RATIO RANGE SEE BELOW Normal [facility] Comment on above: Result Comment: NO M ICROALBUMINURIA 0-29 MG/G CLINICAL MICROALBUMINURIA 30-300 MG/G MACROALBUMINURIA >300 MG/G Performed By: #### H H #### [facility] [address] [place] [address] Dr. Bella Jerome URINE CREAT 131.90 mg/dL Normal 20.00-300.00 [facility] Comment on above: Performed By: #### H H #### [facility] [address] [place] [address] Dr. Bella Jerome PROF 14(COMP METB)on 023 Albumin [Mass/Vol] 4.1 g/dL Normal 3.4-5.0 [facility] Comment on above: Performed By: #### C MP, TSH, LIPID #### [facility] [address] [place] [address] Dr. Bella Jerome Albumin/Globulin [Mass ratio] 1.3 {ratio} Normal [facility] Comment on above: Performed By: #### C MP, TSH, LIPID #### [facility] [address] [place] [address] Dr. Bella Jerome ALP [Catalytic activity/Vol] 124 U/L Critically high 46-116 [facility] Comment on above: Performed By: #### C MP, TSH, LIPID #### [facility] [address] [place], [place] [id number] Dr. Bella Jerome ALT [Catalytic activity/Vol] 16 U/L Normal 14-59 [facility] Comment on above: Performed By: #### C MP, TSH, LIPID #### [facility] [address] [place] [address] Dr. Bella Jerome Anion gap [Moles/Vol] 13.4 mmol/L Normal [facility] Comment on above: Performed By: #### C MP, TSH, LIPID #### [facility] [address] [place] [address] Dr. Bella Jerome AST [Catalytic activity/Vol] 17 U/L Normal 15-37 [facility] Comment on above: Performed By: #### C MP, TSH, LIPID #### [facility] [address] [place] [address] Dr. Bella Jerome Bilirubin [Mass/Vol] 0.8 mg/dL Normal 0.2-1.0 [facility] Comment on above: Performed By: #### C MP, TSH, LIPID #### [facility] [address] [place] [address] Dr. Bella Jerome Calcium [Mass/Vol] 8.9 mg/dL Normal 8.5-10.1 [facility] Comment on above: Performed By: #### C MP, TSH, LIPID #### [facility] [address] [place] [address] Dr. Bella Jerome Chloride [Moles/Vol] 103 mmol/L Normal 98-107 [facility] Comment on above: Performed By: #### C MP, TSH, LIPID #### [facility] [address] [place] [address] Dr. Bella Jerome CO2 [Moles/Vol] 25.6 mmol/L Normal 21.0-32.0 [facility] Comment on above: Performed By: #### C MP, TSH, LIPID #### [facility] [address] [place] [address] Dr. Bella Jerome Creatinine [Mass/Vol] 0.55 mg/dL Normal 0.55-1.02 [facility] Comment on above: Performed By: #### C MP, TSH, LIPID #### [facility] [address] [address] [address] Bella Jerome EGFR-AF SWEDISH >60 Normal >=60 [facility] Comment on above: Performed By: #### C MP, TSH, LIPID #### [facility] [address] [address] [address] Bella Jerome EGFR-NON AF SWEDISH >60 Normal >=60 [facility] Comment on above: Performed By: #### C MP, TSH, LIPID #### [facility] [address] [address] [address] Bella Jerome Globulin (S) [Mass/Vol] 3.1 g/dL Normal [facility] Comment on above: Performed By: #### C MP, TSH, LIPID #### [facility] [address] [address] [address] Bella Jerome Glucose [Mass/Vol] 82 mg/dL Normal 74-106 [facility] Comment on above: Performed By: #### C MP, TSH, LIPID #### [facility] [address] [address] [address] Bella Jerome Potassium [Moles/Vol] 4.0 mmol/L Normal 3.5-5.1 [facility] Comment on above: Performed By: #### C MP, TSH, LIPID #### [facility] [address] [address] [address] Bella Jerome Protein [Mass/Vol] 7.2 g/dL Normal 6.4-8.2 [facility] Comment on above: Performed By: #### C MP, TSH, LIPID #### [facility] [address] [address] [address] Bella Jerome Sodium [Moles/Vol] 138 mmol/L Normal 136-145 [facility] Comment on above: Performed By: #### C MP, TSH, LIPID #### [facility] [address] [address] [address] Bella Jerome Urea nitrogen [Mass/Vol] 14.0 mg/dL Normal 7.0-18.0 [facility] Comment on above: Performed By: #### C MP, TSH, LIPID #### [facility] [address] [address] [address] Bella Jerome Urea nitrogen/Creatinine [Mass ratio] 25.5 mg/mg Normal [facility] Comment on above: Performed By: #### C MP, TSH, LIPID #### [facility] [address] [address] [address] Bella Jerome TSHon 12-26-2022 TSH 0.224 uIU/mL Critically low 0.358-3.740 [facility] Comment on above: Performed By: #### C MP, TSH, LIPID #### [facility] [address] [address] [address] Bella Jerome VIT B12 AND FOLATEon 023 Cobalamin (Vitamin B12) [Mass/Vol] 702.0 pg/mL Normal 193.0-986.0 [facility] Comment on above: Performed By: #### F T4, VITAD, B12FOL, IRON ####[facility] [address] [address]DrWill Jerome FOLATE 25.10 ng/mL Normal 8.60-58.90 [facility] Comment on above: Performed By: #### F T4, VITAD, B12FOL, IRON ####[facility] [address] [address]DrWill Jerome VITAMIN D 25 OHon 12-26-2022 VIT D 25-OH 25.4 ng/mL Normal [facility] Comment on above: Performed By: #### F T4, VITAD, B12FOL, IRON ####[facility] [address] [address]DrWill Jerome VIT D RANGES SEE BELOW Normal [facility] Comment on above: Result Comment: <20 ng/mL Vit D deficient 20 - <30 ng/mL Vit D insufficient 30 - 100 ng/mL Vit D sufficient >100 ng/mL Potential Toxicity Performed By: #### F T4, VITAD, B12FOL, IRON ####[facility] [address] [address]Dr. Bella Jerome PAP ACOG PANEL 2: 23 to 31on 12-18-2022 . . Normal [facility] Comment on above: Performed By: #### C BC #### [facility] [address] [place] [address] Dr. Bella Jerome Age Gdln ACOG Testing - [facility] Comment on above: Performed By: #### C BC #### [facility] [address] [place] [address] Dr. Bella Jerome DIAGNOSIS: Comment [facility] Comment on above: Result Comment: NEGA TIVE FOR INTRAEPITHELIAL LESION OR MALIGNANCY. Performed By: #### C BC #### [facility] [address] [place] [address] Dr. Bella Jerome Methodology: Comment [facility] Comment on above: Result Comment: This liquid based ThinPrep(R) pap test was screened with the use of an image guided system. Performed By: #### C BC #### [facility] [address] [place] [address] Dr. Bella Jerome Note: Comment [facility] Comment on above: Result Comment: The Pap smear is a screening test designed to aid in the detection of premalignant and malignant conditions of the uterine cervix. It is not a diagnostic procedure and should not be used as the sole means of detecting cervical cancer. Both false-positive and false-negative reports do occur. . Performed By: #### C BC #### [facility] [address] [place] [address] Dr. Bella Jerome Performed by: Comment Normal [facility] Comment on above: Result Comment: Byron Irby, Sampler Ovens (ASCP) Performed By: #### C BC #### [facility] [address] [place], [place] [id number] Dr. Bella Jerome Reflex Criteria: Comment [facility] Comment on above: Result Comment: The HPV DNA reflex criteria were not met with this specimen result therefore, no HPV testing was performed. . Performed By: #### C BC #### [facility] [address] [place] [address] Dr. Bella Jerome Specimen adequacy: Comment Normal [facility] Comment on above: Result Comment: Sati sfactory for evaluation. Endocervical and/or squamous metaplastic cells (endocervical component) are present. Performed By: #### C BC #### [facility] [address] [address] [address] Bella Jerome CBC W MANUAL DIFFon 09-07-20 22 ATYPICAL LYMPH # Normal [facility] Comment on above: Performed By: #### C BCMAN ####[facility] [address] [address]Dr. Bella Jerome ATYPICAL LYMPH % Normal [facility] Comment on above: Performed By: #### C BCMAN ####[facility] [address] [address]Dr. Bella Jerome BAND # 0.2 103/ul Normal 0.0-0.3 [facility] Comment on above: Performed By: #### C BCMAN ####[facility] [address] [address]Dr. Bella Jerome BAND % 1 % Normal 0-5 [facility] Comment on above: Performed By: #### C BCMAN ####[facility] [address] [address]Dr. Bella Jerome BASOM # 0.00 103/ul Normal 0.00-0.10 [facility] Comment on above: Performed By: #### C BCMAN ####[facility] [address] [address]Dr. Bella Jerome BASOM % 0.0 % Critically low 0.2-2.0 [facility] Comment on above: Performed By: #### C BCMAN ####[facility] [address] [address]Dr. Bella Jerome BLAST # Normal [facility] Comment on above: Performed By: #### C BCMAN ####[facility] [address] [address]Dr. Bella Jerome BLAST % Normal [facility] Comment on above: Performed By: #### C BCMAN ####[facility] [address] [address]Dr. Bella Jerome CORRECTED WBC Normal 4.0-11.0 [facility] Comment on above: Performed By: #### C PEDRO ####[facility] [address] [address]Dr. Bella Jerome EOS # 0.00 103/ul Normal 0.00-0.70 [facility] Comment on above: Performed By: #### C PEDRO ####[facility] [address] [address]Dr. Bella Jerome EOS% 0.0 % Critically low 0.9-7.0 [facility] Comment on above: Performed By: #### C PEDRO ####[facility] [address] [address]Dr. Bella Jerome HCT 30.5 % Critically low 36.0-48.0 [facility] Comment on above: Performed By: #### C PEDRO ####[facility] [address] [address]Dr. Bella Jerome HGB 10.5 g/dl Critically low 12.0-16.0 [facility] Comment on above: Performed By: #### C PEDRO ####[facility] [address] [place], [place] [address]Dr. Bella Jerome LYMPHM # 2.78 103/ul Normal 1.20-3.80 [facility] Comment on above: Performed By: #### C PEDRO ####[facility] [address] [place], [place] [address]Dr. Bella Jerome LYMPHM% 13.0 % Critically low 20.5-60.0 [facility] Comment on above: Performed By: #### C PEDRO ####[facility] [address] [place], [place] [address]Dr. Bella Jerome MCH 32.8 pg Normal 26.7-34.0 [facility] Comment on above: Performed By: #### C PEDRO ####[facility] [address] [address]Dr. Bella Jerome MCHC 34.4 g/dl Normal 29.9-35.2 [facility] Comment on above: Performed By: #### C PEDRO ####[facility] [address] [address]Dr. Bella Jerome MCV 95.3 fL Normal 81.0-99.0 [facility] Comment on above: Performed By: #### C PEDRO ####[facility] [address] [address]Dr. Bella Jerome METAMYELOCYTE # Normal [facility] Comment on above: Performed By: #### C PEDRO ####[facility] [address] [address]Dr. Bella Jerome METAMYELOCYTE % Normal [facility] Comment on above: Performed By: #### C PEDRO ####[facility] [address] [address]Dr. Bella Jerome MONOM# 2.35 103/ul Critically high 0.30-0.80 [facility] Comment on above: Performed By: #### C PEDRO ####[facility] [address] [address]Dr. Bella Jerome MONOM% 11.0 % Normal 1.7-12.0 [facility] Comment on above: Performed By: #### C PEDRO ####[facility] [address] [address]Dr. Bella Justus MPV 11.1 fL Normal 9.5-13.5 [facility] Comment on above: Performed By: #### C PEDRO ####[facility] [address] [address]Dr. Bella Jerome MYELOCYTE # Normal [facility] Comment on above: Performed By: #### C PEDRO ####[facility] [address] [address]Dr. Bella Jerome MYELOCYTE % Normal [facility] Comment on above: Performed By: #### C PEDRO ####[facility] [address] [address]Dr. Bella Jerome NRBC Normal [facility] Comment on above: Performed By: #### C PEDRO ####[facility] [address] [place], [place] [address]Nq. Bella Jerome PLT 227 103/ul Normal 150-450 [facility] Comment on above: Performed By: #### C PEDRO ####[facility] [address] [place], [place] [address]RmWill Jerome RBC 3.20 106/ul Critically low 4.20-5.40 [facility] Comment on above: Performed By: #### C PEDRO ####[facility] [address] [place], [place] [address]BuWill Jerome RDW 12.8 % Normal 11.0-15.0 [facility] Comment on above: Performed By: #### C PEDRO ####[facility] [address] [place], [place] [address]TzDr. Bella Jerome SEG # 16.05 103/ul Critically high 1.40-6.50 [facility] Comment on above: Performed By: #### C PEDRO ####[facility] [address] [place], [place] [address]pDr. Bella Jerome SEG % 75.0 % Normal 43.0-75.0 [facility] Comment on above: Performed By: #### C PEDRO ####[facility] [address] [place], [place] [address]HpDr. Bella Jerome WBC 21.4 103/ul Critically high 4.0-11.0 [facility] Comment on above: Performed By: #### C PEDRO ####[facility] [address] [place], [place] [address]Dr. Bella Jerome CBC AUTO DIFFon 09-05-2022 BASO # 0.0 103/ul Normal 0.0-0.1 [facility] Comment on above: Performed By: #### C BC #### [facility] [address] [place], [place] [address] Dr. Bella Jerome Basophils/100 WBC (Bld) 0.2 % Normal 0.2-2.0 [facility] Comment on above: Performed By: #### C BC #### [facility] [address] [address] [address] Bella Jerome EO # 0.1 103/ul Normal 0.0-0.7 [facility] Comment on above: Performed By: #### C BC #### [facility] [address] [address] [address] Bella Jerome Eosinophils/100 WBC (Bld) 0.6 % Critically low 0.9-7.0 [facility] Comment on above: Performed By: #### C BC #### [facility] [address] [address] [address] Bella Jerome Erythrocyte distribution width (RBC) [Ratio] 12.6 % Normal 11.0-15.0 [facility] Comment on above: Performed By: #### C BC #### [facility] [address] [place] [address] Dr. Bella Jerome Hematocrit (Bld) [Volume fraction] 32.5 % Critically low 36.0-48.0 [facility] Comment on above: Performed By: #### C BC #### [facility] [address] [address] [address] Bella Jerome Hemoglobin (Bld) [Mass/Vol] 11.1 g/dL Critically low 12.0-16.0 [facility] Comment on above: Performed By: #### C BC #### [facility] [address] [address] [address] Bella Jerome IG # 0.14 10e3/ul Critically high 0.00-0.03 [facility] Comment on above: Performed By: #### C BC #### [facility] [address] [address] [address] Bella Jerome IG % 1.1 % Critically high 0.0-0.5 [facility] Comment on above: Performed By: #### C BC #### [facility] [address] [address] [address] Bella Jerome LYMPH # 2.6 103/ul Normal 1.2-3.8 [facility] Comment on above: Performed By: #### C BC #### [facility] [address] [address] [address] Bella Jerome Lymphocytes/100 WBC (Bld) 20.2 % Critically low 20.5-60.0 [facility] Comment on above: Performed By: #### C BC #### [facility] [address] [place] [address] Dr. Bella Jerome MANUAL DIFF REQ NO Normal [facility] Comment on above: Performed By: #### C BC #### [facility] [address] [place] [address] Dr. Bella Jerome MCH (RBC) [Entitic mass] 32.2 pg Normal 26.7-34.0 [facility] Comment on above: Performed By: #### C BC #### [facility] [address] [place] [address] Dr. Bella Jerome MCHC (RBC) [Mass/Vol] 34.2 g/dL Normal 29.9-35.2 [facility] Comment on above: Performed By: #### C BC #### [facility] [address] [place] [address] Dr. Bella Jreome MCV (RBC) [Entitic vol] 94.2 fL Normal 81.0-99.0 [facility] Comment on above: Performed By: #### C BC #### [facility] [address] [place] [address] Dr. Bella Jerome MONO # 0.9 103/ul Critically high 0.3-0.8 [facility] Comment on above: Performed By: #### C BC #### [facility] [address] [place] [address] Dr. Bella Jerome Monocytes/100 WBC (Bld) 7.1 % Normal 1.7-12.0 [facility] Comment on above: Performed By: #### C BC #### [facility] [address] [place] [address] Dr. Bella Jerome NEUT # 8.9 103/ul Critically high 1.4-6.5 [facility] Comment on above: Performed By: #### C BC #### [facility] [address] [address] [address] Bella Jerome Neutrophils/100 WBC (Bld) 70.8 % Normal 43.0-75.0 [facility] Comment on above: Performed By: #### C BC #### [facility] [address] [address] [address] Bella Jerome Platelet mean volume (Bld) [Entitic vol] 11.0 fL Normal 9.5-13.5 [facility] Comment on above: Performed By: #### C BC #### [facility] [address] [address] [address] Bella Jerome PLT 234 103/ul Normal 150-450 [facility] Comment on above: Performed By: #### C BC #### [facility] [address] [place] [address] Dr. Bella Jerome RBC 3.45 106/ul Critically low 4.20-5.40 [facility] Comment on above: Performed By: #### C BC #### [facility] [address] [place] [address] Dr. Bella Jerome WBC 12.6 103/ul Critically high 4.0-11.0 [facility] Comment on above: Performed By: #### C BC #### [facility] [address] [place] [address] Dr. Bella Jerome [facility]on SARS-CoV-2 (COVID-19) RNA FAVIAN+probe Ql (Unsp spec) Not detected Normal NOT DETECTED [facility] Comment on above: Result Comment: [...] for this test is supported by the [employer] of Health and Human Service's declaration that [...] be used). Performed By: #### C VDTBH ####[facility] [address] [place], [place] [address]Dr. Bella Jerome DRUG SCREEN RAPID (URINE)on 09-05-2022 AMP Negative Normal NEGATIVE [facility] Comment on above: Performed By: #### D RUGRPD ####[facility] [address] [place], [place] [address]Dr. Bella Jerome BAR Negative Normal NEGATIVE [facility] Comment on above: Performed By: #### D RUGRPD ####[facility] [address] [place], [place] [address]Dr. Bella Jerome BUP Negative Normal NEGATIVE [facility] Comment on above: Performed By: #### D RUGRPD ####[facility] [address] [place], [place] [address]Dr. Bella Jerome BZO Negative Normal NEGATIVE [facility] Comment on above: Performed By: #### D RUGRPD ####[facility] [address] [place], [place] [address]Dr. Bella Jerome NGA Negative Normal NEGATIVE [facility] Comment on above: Performed By: #### D RUGRPD ####[facility] [address] [place], [place] [address]Dr. Bella Jerome CUT-OFFS SEE BELOW Normal [facility] Comment on above: Result Comment: [...] 300 ng/mL Performed By: #### D RUGRPD ####[facility] [address] [address] [id number]. Bella Jerome DRUG CUT HEADER DRUG CLASS TEST SYSTEM CUT-OFF CONCENTRATIONS ARE FOLLOWS: Normal [facility] Comment on above: Performed By: #### D RUGRPD ####[facility] [address] [place], [place] [address]Dr. Bella Jerome mAMP Negative Normal NEGATIVE [facility] Comment on above: Performed By: #### D RUGRPD ####[facility] [address] [place], [place] [address]Dr. Bella Jerome MTD Negative Normal NEGATIVE [facility] Comment on above: Performed By: #### D RUGRPD ####[facility] [address] [place], [place] [address]Dr. Bella Jerome OPI Negative Normal NEGATIVE [facility] Comment on above: Performed By: #### D RUGRPD ####[facility] [address] [place], [place] [address]Dr. Bella Jerome OXY Negative Normal NEGATIVE [facility] Comment on above: Performed By: #### D RUGRPD ####[facility] [address] [place], [place] [address]Dr. Liwally Justus PCP Negative Normal NEGATIVE [facility] Comment on above: Performed By: #### D RUGRPD ####[facility] [address] [place], [place] [address]Dr. Bella Jerome PPX Negative Normal NEGATIVE [facility] Comment on above: Performed By: #### D RUGRPD ####[facility] [address] [place], [place] [address]Dr. Bella Jerome TCA Negative Normal NEGATIVE [facility] Comment on above: Performed By: #### D RUGRPD ####[facility] [address] [place], [place] [address]Dr. Bella Jerome THC Negative Normal NEGATIVE [facility] Comment on above: Performed By: #### D RUGRPD ####[facility] [address] [place], [place] [address]Za. Bella Jerome TYPE AND SCREENon 09-05-2022 TYPE AND SCREEN Negative Normal [facility] Comment on above: Performed By: #### T NS ####[facility] [address] [place], [place] [address]Ad. Bella Jerome US PREG BIOPHY W NON [...] MANUELITO GREGG Date: 2022-08-31 17:06 Normal [facility] US PREG GROWTHon 08-30-2022 US [...] MANUELITO GREGG Date: 2022-08-30 17:59 Normal [facility] US PREG BIOPHY W NON [...] by: MANUELITO GREGG Date: 2022-08-24 17:10 Normal [facility] FREE T4on 08-21-2022 Free T4 [Mass/Vol] 0.90 ng/dL Normal 0.76-1.46 [facility] Comment on above: Performed By: #### C BC #### [facility] [address] [address] [address] Bella Jerome TSHon 08-21-2022 TSH 1.033 uIU/mL Normal 0.358-3.740 [facility] Comment on above: Performed By: #### H H #### [facility] [address] [place] [address] Dr. Bella Jerome PREG BIOPHY W NON [...] MANUELITO GREGG Date: 2022-08-17 18:33 Normal [facility] GROUP B STREP CULTUREon 07-28 S. agalactiae Ag Ql (Unsp spec) Culture Observations: NEGATIVE FOR GROUP B STREPTOCOCCUS. Normal [facility] Comment on above: Performed By: #### G BSCX ####[facility] [address] [place], [place] [address]ZgWill Jerome US PREG BIOPHY W NON STRESSo [...] by: MANUELITO GREGG Date: 2022-08-10 16:36 Normal [facility] US PREG GROWTHon 08-10-2022 US PREG [...] by: MANUELITO GREGG Date: 2022-08-10 16:37 Normal [facility] US PREG GROWTHon 07-25-2022 US PREG [...] by: MANUELITO GREGG Date: 2022-07-25 18:18 Normal [facility] FREE T4on 07-24-2022 Free T4 [Mass/Vol] 0.98 ng/dL Normal 0.76-1.46 [facility] Comment on above: Performed By: #### F T4 #### [facility] [address] [address] [address] Bella Jerome TSHon 07-24-2022 TSH 1.196 uIU/mL Normal 0.358-3.740 [facility] Comment on above: Performed By: #### T SH ####[facility] [address] [address]Dr[address] Bella Jerome UA (CLEAN/CATCH) POLITICAL AIDE/MICRO I F IND.on 07-20-2022 Bilirubin Ql (U) Negative Normal NEGATIVE [facility] Comment on above: Performed By: #### H H #### [facility] [address] [address] [address] Bella Jerome Clarity (U) CLEAR Normal CLEAR [facility] Comment on above: Performed By: #### H H #### [facility] [address] [address] [address] Bella Jerome Color (U) LT. YELLOW Normal YELLOW [facility] Comment on above: Performed By: #### H H #### [facility] [address] [address] [address] Bella Jerome Glucose Ql (U) Negative Normal NEGATIVE [facility] Comment on above: Performed By: #### H H #### [facility] [address] [address] [address] Bella Jerome Hemoglobin Ql (U) Negative Normal NEGATIVE [facility] Comment on above: Performed By: #### H H #### [facility] [address] [place] [address] Dr. Bella Jerome Ketones Ql (U) Negative Normal NEGATIVE [facility] Comment on above: Performed By: #### H H #### [facility] [address] [place] [address] Dr. Bella Jerome LEUKOCYTES Negative Normal NEGATIVE [facility] Comment on above: Performed By: #### H H #### [facility] [address] [address] [address] Bella Jerome Nitrite Ql (U) Negative Normal NEGATIVE [facility] Comment on above: Performed By: #### H H #### [facility] [address] [place] [address] Dr. Bella Jerome pH (U) 7.0 [pH] Normal 5-9 [facility] Comment on above: Performed By: #### H H #### [facility] [address] [place] [address] Dr. Bella Jerome SPEC GRAVITY <=1.005 Abnormal 1.005-<=1.025 [facility] Comment on above: Performed By: #### H H #### [facility] [address] [place] [address] Dr. Bella Jerome UA PROTEIN Negative Normal NEGATIVE/ TRACE [facility] Comment on above: Performed By: #### H H #### [facility] [address] [place] [address] Dr. Bella Jerome UR MICRO IND NOT INDICATED Normal [facility] Comment on above: Performed By: #### H H #### [facility] [address] [address] [address] Bella Jerome Urobilinogen Qn (U) 0.2 {Kimberlee'U}/dL Normal 0.2 - 1. 0 [facility] Comment on above: Performed By: #### H H #### [facility] [address] [address] [address] Bella Jerome US PREG GROWTHon 06-27-2022 [...] RAGINI SANTOS Date: 2022-06-27 16:23 Normal [facility] FREE T4on 06-20-2022 Free T4 [Mass/Vol] 0.82 ng/dL Normal 0.76-1.46 [facility] Comment on above: Performed By: #### H H #### [facility] [address] [place] [address] Dr. Bella Jerome GLUCOSE - 1HRon 06-20-2022 Glucose [Mass/Vol] 127 mg/dL Critically high 74-106 T [facility] Comment on above: Performed By: #### H H #### [facility] [address] [address] [address] Bella Jerome HEMOGRAM AND PLATELon 2021 Hematocrit (Bld) [Volume fraction] 32.4 % Critically low 36.0-48.0 [facility] Comment on above: Performed By: #### H H #### [facility] [address] [address] [address] Bella Jerome Hemoglobin (Bld) [Mass/Vol] 10.9 g/dL Critically low 12.0-16.0 [facility] Comment on above: Performed By: #### H H #### [facility] [address] [address] [address] Bella Jerome MCH (RBC) [Entitic mass] 32.9 pg Normal 26.7-34.0 [facility] Comment on above: Performed By: #### H H #### [facility] [address] [place] [address] Dr. Bella Jerome MCHC (RBC) [Mass/Vol] 33.6 g/dL Normal 29.9-35.2 [facility] Comment on above: Performed By: #### H H #### [facility] [address] [place] [address] Dr. Bella Jerome MCV (RBC) [Entitic vol] 97.9 fL Normal 81.0-99.0 [facility] Comment on above: Performed By: #### H H #### [facility] [address] [place] [address] Dr. Bella Jerome PLT 241 103/ul Normal 150-450 [facility] Comment on above: Performed By: #### H H #### [facility] [address] [place] [address] Dr. Bella Jerome RBC 3.31 106/ul Critically low 4.20-5.40 [facility] Comment on above: Performed By: #### H H #### [facility] [address] [place] [address] Dr. Bella Jerome WBC 11.3 103/ul Critically high 4.0-11.0 [facility] Comment on above: Performed By: #### H H #### [facility] [address] [place], [place] [address] Dr. Bella Jerome TSHon 06-20-2022 TSH 3.044 uIU/mL Normal 0.358-3.740 [facility] Comment on above: Performed By: #### C #### [facility] [address] [place], [place] [address] Dr. Bella Jerome US PREG INCOMPLETE ANATOMYon 05-24-2022 US PREG INCOMPLETE ANATOMY EXAMINATION: US PREG INCOMPLETE ANATOMY HISTORY: screening COMPARISON: Ultrasound anatomy 04/26/2022 FINDINGS: Presentation: Cephalic Heart rate: 154 bpm Anatomy: Cervical, thoracic, and lumbar spine HERNANDO: 09/13/2022 IMPRESSION: 1. Adequate visualization of the cervical, thoracic, and lumbar spine; no appreciable abnormality. Electronically authenticated by: RAGINI SANTOS Date: 2022-05-24 17:33 Normal [facility] US PREG ANATOMY SINGLEon US [...] MANUELITO GREGG Date: 2022-04-26 16:54 Normal [facility] CHLAMYDIA/GONOCOCCUS FAVIAN (SW AB/URINE/PAPon 04-19-2022 Chlamydia trachomatis, FAVIAN Negative Normal Negative [facility] Comment on above: Performed By: #### C T/NGNA ####[facility] [address] [address]. Bella Jerome Neisseria gonorrhoeae, FAVIAN Negative Normal Negative [facility] Comment on above: Performed By: #### C T/NGNA ####[facility] [address] [address]Dr. Bella Jerome VAGINITIS/VAGINOSIS DNA PROB Leonid 04-18-2022 Jessica species Negative Normal Negative [facility] Comment on above: Performed By: #### H H #### [facility] [address] [address] [address] Bella Jerome Gardnerella vaginalis Negative Normal Negative [facility] Comment on above: Performed By: #### H H #### [facility] [address] [address] [address] Bella Jerome Trichomonas vaginalis Negative Normal Negative [facility] Comment on above: Performed By: #### H H #### [facility] [address] [address] [address] Bella Jerome FREE T4on 04-05-2022 Free T4 [Mass/Vol] 0.88 ng/dL Normal 0.76-1.46 [facility] Comment on above: Performed By: #### F T4 #### [facility] [address] [place] [address] Dr. Bella Jerome TSHon 04-05-2022 TSH 1.786 uIU/mL Normal 0.358-3.740 [facility] Comment on above: Performed By: #### T SH ####[facility] [address] [place], [place] [address] Bella Jerome TSH RANGE SEE BELOW Normal [facility] Comment on above: Result Comment: <0.3 4 UIU/ml HYPERTHYROID 0.34-5.60 UIU/ml EUTHYROID >5.60 UIU/ml HYPOTHYROID Performed By: #### T SH ####[facility] [address] [address]Dr. Bella Jerome FREE T4on 02-26-2022 Free T4 [Mass/Vol] 1.06 ng/dL Normal 0.76-1.46 [facility] Comment on above: Performed By: #### C BC #### [facility] [address] [address] [address] Bella Jerome TSHon 02-26-2022 TSH 2.024 uIU/mL Normal 0.470-4.680 [facility] Comment on above: Performed By: #### C BC #### [facility] [address] [place] [address] Dr. Bella Jerome TSH RANGE SEE BELOW Normal [facility] Comment on above: Result Comment: <0.3 4 UIU/ml HYPERTHYROID 0.34-5.60 UIU/ml EUTHYROID >5.60 UIU/ml HYPOTHYROID Performed By: #### C BC #### [facility] [address] [place] [address] Dr. Bella Jerome Vital Signs Date Time Vital Sign Value Performing Clinician Facility 08-18-2024 13:50-0400 Body mass index (BMI) [Ratio] 43.54 kg/m2 [employer] Work Phone: [facility] 08-18-2024 13:50-0400 Body weight 111.49 kg [employer] Work Phone: [facility] 08-18-2024 13:50-0400 Diastolic blood pressure 74 mm[Hg] [employer] Work Phone: [facility] 08-18-2024 13:50-0400 Systolic blood pressure 118 mm[Hg] Agus Juárez DO Work Phone: [facility] 08-04-2024 13:30-0400 Body mass index (BMI) [Ratio] 44.37 kg/m2 Marylou Priest SOLOMON Work Phone: [facility] 08-04-2024 13:30-0400 Body weight 113.63 kg Marylou Priest PA Work Phone: [facility] 08-04-2024 13:30-0400 Diastolic blood pressure 78 mm[Hg] Marylou Priest PA Work Phone: [facility] 08-04-2024 13:30-0400 Systolic blood pressure 128 mm[Hg] Marylou CARBAJAL Work Phone: [facility] 02-13-2024 11:24-0400 Body height 160.02 cm [facility] 02-13-2024 11:24-0400 Body mass index (BMI) [Ratio] 42.3 kg/m2 [facility] 02-13-2024 11:24-0400 Body weight 108.49 kg [facility] 02-13-2024 11:24-0400 Diastolic blood pressure 70 mm[Hg] [facility] 02-13-2024 11:24-0400 Heart rate 69 /min [facility] 02-13-2024 11:24-0400 Respiratory rate 18 /min [facility] 02-13-2024 11:24-0400 SaO2% (BldA) [Mass fraction] 98 % [facility] 02-13-2024 11:24-0400 Systolic blood pressure 118 mm[Hg] [facility] 10-31-2023 15:00-0500 Body height 160.02 cm Sandra Austin Other [facility] Other 10-31-2023 15:00-0500 Body mass index (BMI) [Ratio] 45.41 kg/m2 Sandra Austin Other [facility] Other 10-31-2023 15:00-0500 Body temperature 98.5 [degF] Sandra Geovanna Other [facility] Other 10-31-2023 15:00-0500 Body weight 116.3 kg Sandra Geovanna Other [facility] Other 10-31-2023 15:00-0500 Diastolic blood pressure 80 mm[Hg] Sandra Geovanna Other [facility] Other 10-31-2023 15:00-0500 Respiratory rate 18 /min Sandra Geoavnna Other [facility] Other 10-31-2023 15:00-0500 SaO2% (BldA) [Mass fraction] 98 % Sandra Geovanna Other [facility] Other 10-31-2023 15:00-0500 Systolic blood pressure 128 mm[Hg] Sandra Geovanna Other [facility] Other 06-24-2023 14:30-0400 Body height 160.02 cm Sandra Geovanna Other [facility] Other 06-24-2023 14:30-0400 Body mass index (BMI) [Ratio] 44.87 kg/m2 Sandra Geovanna Other [facility] Other 06-24-2023 14:30-0400 Body weight 114.9 kg Sandra Geovanna Other [facility] Other 06-24-2023 14:30-0400 Diastolic blood pressure 60 mm[Hg] Sandra Austin Other [facility] Other 06-24-2023 14:30-0400 Respiratory rate 18 /min Sandra Geovanna Other [facility] Other 06-24-2023 14:30-0400 SaO2% (BldA) [Mass fraction] 99 % Sandra Pendletonaldo Other [facility] Other 06-24-2023 14:30-0400 Systolic blood pressure 110 mm[Hg] Sandra Geovanna Other [facility] Other 04-15-2023 09:25-0400 Body height 160.02 cm Ramonita Hornmond Other [facility] Other 04-15-2023 09:25-0400 Body mass index (BMI) [Ratio] 41.8 kg/m2 Ramonita Hornmond Other [facility] Other 04-15-2023 09:25-0400 Body temperature 98.5 [degF] Ramonita Hornmond Other [facility] Other 04-15-2023 09:25-0400 Body weight 107.05 kg Ramonita Hornmond Other [facility] Other 04-15-2023 09:25-0400 Respiratory rate 18 /min Ramonita Hornmond Other [facility] Other 04-15-2023 09:25-0400 SaO2% (BldA) [Mass fraction] 97 % Ramonita Hornmond Other [facility] Other 02-21-2023 14:45-0400 Body height 160.02 cm Sandra uAstin Other [facility] Other 02-21-2023 14:45-0400 Body mass index (BMI) [Ratio] 41.39 kg/m2 Sandra Austin Other [facility] Other 02-21-2023 14:45-0400 Body weight 106.01 kg Sandra Austin Other [facility] Other 02-21-2023 14:45-0400 Diastolic blood pressure 60 mm[Hg] Sandra Austin Other [facility] Other 02-21-2023 14:45-0400 Respiratory rate 18 /min Sandra Austin Other [facility] Other 02-21-2023 14:45-0400 SaO2% (BldA) [Mass fraction] 98 % Sandra Austin Other [facility] Other 02-21-2023 14:45-0400 Systolic blood pressure 110 mm[Hg] Sandra Austin Other [facility] Other 12-24-2022 14:30-0500 Body height 160.02 cm Sandra Austin Other [facility] Other 12-24-2022 14:30-0500 Body mass index (BMI) [Ratio] 40.83 kg/m2 Sandra Austin Other [facility] Other 12-24-2022 14:30-0500 Body weight 104.55 kg Sandra Austin Other [facility] Other 12-24-2022 14:30-0500 Diastolic blood pressure 70 mm[Hg] Sandra Austin Other [facility] Other 12-24-2022 14:30-0500 Respiratory rate 18 /min Sandra Austin Other [facility] Other 12-24-2022 14:30-0500 SaO2% (BldA) [Mass fraction] 99 % Sandra Austin Other [facility] Other 12-24-2022 14:30-0500 Systolic blood pressure 118 mm[Hg] Sandra Austin Other [facility] Other 12-21-2021 16:30-0500 Body height 160.02 cm Sandra Austin Other [facility] Other 12-21-2021 16:30-0500 Body mass index (BMI) [Ratio] 38.58 kg/m2 Sandra Austin Other [facility] Other 12-21-2021 16:30-0500 Body temperature 97.3 [degF] Sandra Austin Other [facility] Other 12-21-2021 16:30-0500 Body weight 98.79 kg Sandra Austin Other [facility] Other 12-21-2021 16:30-0500 Diastolic blood pressure 60 mm[Hg] Sandra Austin Other [facility] Other 12-21-2021 16:30-0500 Respiratory rate 18 /min Sandra Austin Other [facility] Other 12-21-2021 16:30-0500 SaO2% (BldA) [Mass fraction] 99 % Sandra Austin Other [facility] Other 12-21-2021 16:30-0500 Systolic blood pressure 118 mm[Hg] Sandra Austin Other [facility] Other Encounters Encounter Date Encounter Type Care Provider Facility Start: 08-29-2024 End: 08-29-2024 Clinisync Result Encounter Agus Marquita DO Work Phone: [facility] Unsolicited Start: 08-29-2024 End: 08-29-2024 Clinisync Result Encounter Agus Marquita DO Work Phone: [facility] External [facility] Unsolicited Start: 08-18-2024 End: 08-18-2024 Bamboo flowsheet Agus Marquita DO Work Phone: [facility] Start: 08-18-2024 End: 08-18-2024 Bamboo flowsheet Agus Marquita DO Work Phone: [facility] Start: 08-18-2024 End: 08-18-2024 flow sheet Agus Marquita DO Work Phone: [facility] Comment on above: 34 weeks gestation o f ; Nausea and vomiting, unspecified vomiting type; Gastroesophageal reflux disease, unspecified whether esophagitis present; Heartburn during in third trimester Start: 08-04-2024 End: 08-04-2024 Bamboo flowsheet Marylou CARBAJAL Work Phone: [facility] Start: 08-04-2024 End: 08-04-2024 Bamboo flowsheet Marylou CARBAJAL Work Phone: [facility] Start: 08-04-2024 End: 08-04-2024 ambulatory MARYLOU PRIEST Not Available Start: 08-04-2024 End: 08-04-2024 flow sheet Marylou CARBAJAL Work Phone: [facility] Comment on above: 32 weeks gestation o f ; Third trimester ; Anxiety, generalized ([facility]/HCC) Start: 07-21-2024 End: 07-21-2024 ambulatory AGUS MARQUITA [...] Not Available Start: 02-13-2024 End: 02-13-2024 ambulatory [facility] Work Phone: Start: 02-13-2024 End: 02-13-2024 Patient encounter procedure [facility] Physician [facility] [place] Work Phone: Start: 12-16-2023 Non-patient / Non-visit [facility] Physician [facility] Work Phone: Start: 12-16-2023 End: 12-16-2023 ambulatory AGUS MARQUITA Not Available Start: 10-31-2023 End: 10-31-2023 ambulatory Sandra Austin Other [facility] Other Start: 10-31-2023 Office outpatient vi sit 25 minutes Sandra Austin [facility] [place] Start: 07-19-2023 End: 07-19-2023 ambulatory Sandra Austin Other [facility] Other Start: 07-19-2023 Telephone encounter Sandra Guevara [facility] [place] Start: 06-24-2023 End: 06-24-2023 ambulatory Sandra Austin Other [facility] Other Start: 06-24-2023 Office outpatient vi sit 25 minutes Sandra Austin [facility] Family Medicine [place] Start: 06-04-2023 End: 06-04-2023 ambulatory Sandra Austin Other [facility] Other Start: 06-04-2023 Telephone encounter Sandra Guevara [facility] Start: 04-15-2023 End: 04-15-2023 ambulatory Ramonita Yari Other [facility] Other Start: 04-15-2023 Office outpatient vi sit 15 minutes Ramonita Greenberg [facility] [place] Start: 04-11-2023 End: 04-11-2023 ambulatory Sandra Austin Other [facility] Other Start: 04-11-2023 Telephone encounter Sandra Guevara [facility] [place] Start: 02-21-2023 Office outpatient vi sit 25 minutes Sandra Austin [facility] [place] Start: 02-21-2023 End: 02-22-2023 ambulatory SANDRA AUSTIN [place] [facility] Other Start: 01-04-2023 End: 01-04-2023 ambulatory Sandra Austin Other [facility] Other Start: 01-04-2023 Telephone encounter Sandra Guevara [facility] [place] Start: 12-30-2022 Encounter for genera l adult medical examination without abnormal findings SANDRA AUSTIN [facility] Start: 12-27-2022 End: 12-27-2022 ambulatory Sandra Austin Other [facility] Other Start: 12-27-2022 Telephone encounter Sandra Guevara [facility] Start: 12-26-2022 End: 12-27-2022 ambulatory SANDRA AUSITN Facility:[facility] Start: 12-26-2022 End: 12-27-2022 Encounter for general adult medical examination without abnormal findings SANDRA GEOVANNA Facility:[facility] Start: 12-24-2022 End: 12-24-2022 ambulatory Sandra Austin Other [facility] Other Start: 12-24-2022 Encounter for genera l adult medical examination without abnormal findings Sandra Geovanna [facility] Start: 12-24-2022 Periodic preventive med est patient 18-39 yrs Sandra Geovanna [facility] [place] Start: 12-10-2022 End: 12-10-[address] AGUS [...] 12-21-2021 End: 12-21-2021 ambulatory Sandra Geovanna Other [facility] Other Start: 12-21-2021 Office outpatient ne w 45 minutes Sandra Austin [facility] [place] Procedures Date Procedure Procedure Detail Performing Clinician [...] [facility] [address] [place] [id number] Agus Juárez, DO [address] [place] [address] [facility] Start: 09-01-2024 End: 09-01-2024 Patient encounter procedure 09/01/2024 1:30 PM EST Routine [facility] [address] [place] [id number] Agus Juárez, DO [address] [place] [address] [facility] Start: 08-18-2024 End: 08-18-2024 Patient encounter procedure 08/18/2024 1:30 PM EDT Routine [facility] [address] [place] [id number] Agus Juárez, DO [address] [place] [address] [facility] Start: 08-18-2024 End: 08-18-2024 Professional / ancillary services management 08/18/2024 1:00 PM EDT Ancillary Procedure [facility] [address] [place] [address] [facility] Patient Education Low back pain in adults [facility] Work Phone: Immunizations Immunization Date Immunization Notes Care Provider [facility] 09-08-2022 diphtheria, tetanus toxoids and pertussis vaccine Marylou CARBAJAL Work Phone: [facility] 09-12-2021 pneumococcal conjuga te vaccine, 13 valent Marylou CARBAJAL Work Phone: [facility] 08-14-1999 diphtheria, tetanus toxoids and acellular pertussis vaccine, unspecified formulation Marylou CARBAJAL Work Phone: [facility] 08-14-1999 haemophilus influenz ae type b vaccine, HbOC conjugate Marylou CARBAJAL Work Phone: [facility] 08-14-1999 measles, mumps and rubella virus vaccine Marylou CARBAJAL Work Phone: [facility] 08-14-1999 trivalent poliovirus vaccine, live, oral Marylou CARBAJAL Work Phone: [facility] 04-27-1998 diphtheria, tetanus toxoids and acellular pertussis vaccine, unspecified formulation Marylou CARBAJAL Work Phone: [facility] 04-27-1998 haemophilus influenz ae type b conjugate and Hepatitis B vaccine Marylou CARBAJAL Work Phone: [facility] 1997 diphtheria, tetanus toxoids and acellular pertussis vaccine, unspecified formulation Marylou CARBAJAL Work Phone: [facility] 1997 haemophilus influenz ae type b vaccine, HbOC conjugate Marylou CARBAJAL Work Phone: [facility] 1997 poliovirus vaccine, inactivated Marylou CARBAJAL Work Phone: [facility] 1997 diphtheria, tetanus toxoids and acellular pertussis vaccine, unspecified formulation Marylou CARBAJAL Work Phone: [facility] 1997 haemophilus influenz ae type b conjugate and Hepatitis B vaccine Marylou CARBAJAL Work Phone: [facility] 1997 poliovirus vaccine, inactivated Marylou CARBAJAL Work Phone: [facility] 1997 hepatitis B vaccine, pediatric or pediatric/adolescent dosage Marylou CARBAJAL Work Phone: [facility] Payers Date Payer Category Payer [facility] [employer] [id number] 2023 Unknown [employer] [id number] 2023-Present [address] [place] [address] [id number] 2023 Unknown [id number] [id number] 1997 Unknown [id number] 2.16.840.1.252010.3.579.2. 593 1997 Unknown [id number] 2.16.840.1.122556.3.579.2. 593 1997 Unknown [id number] 2.16.840.1.275231.3.579.2. 593 1997 Unknown [id number] 2.16.840.1.385216.3.579.2. 593 1997 Unknown [id number] 2.16.840.1.512698.3.579.2. 593 1997 Unknown [id number] 2.16.840.1.678433.3.579.2. 593 1997 Unknown [id number] 2.16.840.1.251417.3.579.2. 593 1997 Unknown [id number] 2.16.840.1.268981.3.579.2. 593 1997 Unknown [id number] 2.16.840.1.031987.3.579.2. 593 1997 Unknown [id number] 2.16.840.1.292622.3.579.2. 593 1997 Unknown [id number] 2.16.840.1.837430.3.579.2. 593 1997 Unknown [id number] 2.16.840.1.399910.3.579.2. 593 1997 Unknown [id number] 2.16.840.1.949751.3.579.2. 593 1997 Unknown [id number] 2.16.840.1.858268.3.579.2. 593 1997 Unknown [id number] 2.16.840.1.234399.3.579.2. 593 1997 Unknown [id number] 2.16.840.1.715835.3.579.2. 593 1997 Unknown [id number] 2.16.840.1.045303.3.579.2. 593 1997 Unknown [id number] 2.16.840.1.695230.3.579.2. 593 1997 Unknown [id number] 2.16.840.1.908816.3.579.2. 593 1997 Unknown [id number] 2.16.840.1.760414.3.579.2. 593 1997 Unknown [id number] 2.16.840.1.732625.3.579.2. 593 1997 Unknown [id number] 2.16.840.1.984547.3.579.2. 593 1997 Unknown [id number] 2.16.840.1.163709.3.579.2. 593 1997 Unknown [id number] 2.16.840.1.111632.3.579.2. 1259 1997 Unknown [id number] 2.16.840.1.594583.3.579.2. 9 1997 Unknown [id number] 2.16.840.1.331671.3.579.2. 1258 1997 Unknown [id number] 2.16.840.1.970876.3.579.2. 9 1997 Unknown [id number] 2.16.840.1.097716.3.579.2. 1258 1997 Unknown [id number] 2.16.840.1.051469.3.579.2. 1258 1997 Unknown [id number] 2.16.840.1.660863.3.579.2. 1258 1997 Unknown [id number] 2.16.840.1.379636.3.579.2. 1258 1997 Unknown [id number] 2.16.840.1.133622.3.579.2. 1259 1957 Medicaid [id number] 2.16.840.1.023959.19 1959 Private Health Insurance [id number] 2.16.840.1.985822.19 Self-pay Self Pay [id number] Unknown [place] [id number] Social History Date Type Detail Facility Start: 08-02-2023 End: 11-25-2023 Sex Assigned At [facility] [employer] Other Start: 1995 Sex Assigned At Female F [facility] Start: 08-02-2023 [facility] Start: 08-02-2023 Tobacco use and exposure Smokeless tobacco non-user [facility] Start: 07-21-2024 End: 08-04-2024 Alcoholic beverage intake Ex-drinker (finding) [facility] Start: 08-02-2023 End: 11-25-2023 History of Social function [facility] Start: 01-03-2024 [facility] Start: 1995 Sex assigned at Not on file [facility] Clinical Notes 12-21-2021 to 08-18-2024 Justine Mathew [...] before breakfast, Do not crush or chew. Byoqpvbh-Yju-Cn-FA ( 1 + IRON PO) Oral ALLERGIES [...] nursing note reviewed. Exam conducted with a school services officer present. Vitals: Estimated body mass index is [...] Agus Juárez DO documented in this encounter [facility] 08-04-2024 History of Presen t illness Narrative Reason for Appointment: Patient ID: Zedla Zepeda is a 29 y.o. female who [...] before breakfast, Do not crush or chew. Xconevnz-Uws-Qi-FA ( 1 + IRON PO) Oral ALLERGIES [...] of: SOLOMON Turner documented in this encounter [facility] 10-31-2023 Evaluation note Encounter [...] E28.2) She will continue to follow with [facility] and continue healthy lifestyle changes that she [...] course of antibiotic. Increase fluids and rest. Rmvg-hmy-mvpebsn antipyretics as needed. Warning signs and symptoms reviewed with patient today. Patient to go immediately to the ER should she experience any of these. Patient to notify office should her symptoms persist and not improve. Patient verbalizes understanding and agrees to treatment plan. [facility] Other 09-22-2023 Evaluation note* Encounter Date Diagnosis Assessment Notes Treatment Notes Treatment Clinical Notes Jun, Vitamin D insufficiency (ICD-10 - E55.9) [facility] Other 08-28-2023 Evaluation note* Encounter Date Diagnosis [...] E28.2) She will continue to follow with [facility] and continue healthy lifestyle changes that she [...] ENT today. Specialty notes reviewed as received. [facility] Other 08-08-2023 Evaluation note* Encounter Date Diagnosis Assessment Notes Treatment Notes Treatment Clinical Notes May, Other atopic dermatitis (ICD-10 - L20.89) May, Acute otitis externa of both ears, unspecified type (ICD-10 - H60.503) [facility] Other 06-19-2023 Evaluation note* Encounter Date Diagnosis [...] no improvement in 2 to 3 days [facility] Other 06-15-2023 Evaluation note* Encounter Date Diagnosis Assessment Notes Treatment Notes Treatment Clinical Notes Mar, Anxiety (ICD-10 - F41.9) [facility] Other 04-27-2023 Evaluation note* Encounter Date Diagnosis [...] plan on rechecking this at May appointment. [facility] Other 03-10-2023 Evaluation note* Encounter Date Diagnosis Assessment Notes Treatment Notes Treatment Clinical Notes Dec, Bacterial conjunctivitis (ICD-10 - H10.9) [facility] Other 03-02-2023 Evaluation note* Encounter Date Diagnosis Assessment Notes Treatment Notes Treatment Clinical Notes Dec, Vitamin D insufficiency (ICD-10 - E55.9) Dec, Elevated alkaline phosphatase level (ICD-10 - R74.8) Dec, Other specified hypothyroidism (ICD-10 - E03.8) [facility] Other 02-27-2023 Evaluation note* Encounter Date Diagnosis [...] ordered. Follow routinely with eye doctor, dentist, [facility]. Patient is advised to work on healthy diet choices and appropriate servings, weight control, regular exercise as directed, reduced fat intake, and salt avoidance. Patient voiced understanding of this and agrees to this plan. Nov, PCOS (polycystic ovarian syndrome) (ICD-10 - E28.2) Routine lab work ordered. She will continue to follow with [facility] and continue healthy lifestyle changes that she [...] homicidal ideations. Started on Celexa by her [facility]. Very stable on Celexa 20 mg daily. [...] her ears still persist after starting this. [facility]dy Other 02-24-2022 Evaluation note* Encounter Date Diagnosis Assessment Notes Treatment Notes Treatment Clinical Notes Nov, Prediabetes (ICD-10 - R73.03) She was recently dx with prediabetes and was started on Metformin 500 mg BID 2 weeks ago by her OB[facility]. She would like to follow with our [...] - E28.2) She is following with her OB[facility] for her PCOS and is currently on Metformin 500 mg BID and is taking medication to help her get . She will continue to follow with [facility] and continue healthy lifestyle changes that she [...] of fatigue, difficulty losing weight by her [facility]. She would like to start following with [...] of this and agrees to this plan. tydy Other Evaluation note* Diagnosis Onset Date Resolution Status 8 weeks gestation of acute Low back pain [place] Work Phone: Evaluation note* Diagnosis 32 weeks [...] THIRD NIPPLE REMOVED Surgical History Colonoscopy-normal 2018 tydy Other Summary Purpose Family History Relationship Condition [...] Right ear pain (H92. 01) Referral Organization [facility] Gonzales Hernandez Referring Provider First Name [...] DATE CREATED AUTHOR AUTHOR'S ORGANIZ ATION 08/06/2024 [facility] Care Teams (unrecognized sec tion and content) Team Status: Active Member Role Status Dates Sandra Ausitn DNP Primary Care Provider Active Team Status: Active Member Role Status Dates Sandra Austin DNP Primary Care Provid er, Attending Provider Active Start: December 16, 2023 Team Status: Inactive Member Role Status Dates Sandra Austin DNP Primary Care Provid er, Attending Provider Active Start: February 13, 2024 End: February 13, 2024 Rod Piler Relationship Specialty Start Date End Date Sandra Austin NP [address] [place] [address] PCP - General 07/19/23 Rod Piler Relationship Specialty Start Date End Date Sandra Austin NP [address] [place] [address] PCP General 07/19/23 Rod Piler Relationship Specialty Start Date End Date Sandra Austin NP [address] [place] [address] [facility] 07/19/23 Rod Piler Relationship Specialty Start Date End Date Sandra Austin NP [address] [place] [address] [facility] 07/19/23 Rod Piler Relationship Specialty Start Date End Date Sandra Austin NP [address] [place] [address] [facility] 07/19/23 Goals (unrecognized section and content) Goals [...] BE BASED ON THE PRIMARY CLINICAL RECORDS. [facility] [facility] provides no warranty or guarantee of the accuracy or completeness of information in this document.
[2024-09-02 15:47] VITALS: BP 119/76; PULSE 75
== END 2024-09-02 16:10 | disposition home or self-care (01) ==
LOC: US 07:08 → FBC 14:57
PROVIDERS: Visit Provider Obstetrics & Gynecology
DX: O99.283 Endocrine, nutritional and metabolic diseases complicating pregnancy, third trimester (principal); R79.89 Other specified abnormal findings of blood chemistry; Z3A.36 36 weeks gestation of pregnancy
CPT/HCPCS: 76818

== ENCOUNTER 2024-09-05 07:10 | Outpatient (OUT) | payer OTHER, SELFPAY ==
--- OUTSIDE RECORDS SUMMARY | 2024-09-05 07:13 | XMS_ITS | CCD ---
Author Organization [facility] Care Team Providers Care Manager Of Change Name Role Phone [facility]oha[facility] Unavailable KAP, SANDRA Primary Care Unavailable MARQUITA ., DR GOLDSMITH Attending Unavailable WEST, DR MANUELITO Foley Consulting Unavailable MARQUITA ., DR GOLDSMITH Admitting Unavailable MARQUITA ., DR GOLDSMITH Consulting Unavailable BRIAN, VIRGINIA Admitting Unavailable VIRGINIA TORRES Attending Unavailable KAP, SANDRA Primary Care Unavailable MARYSOL, DR MANUELITO Foley Consulting Unavailable MARQUITA ., [...] Unavailable MARQUITA ., DR GOLDSMITH Consulting Unavailable MARUQITA ., DR GOLDSMITH Attending Unavailable MARQUITA ., [...] LYK ., DR HU Consulting Unavailabl e LAMAR, DR MANUELITO Foley Consulting Unavailable MARQUITA ., DR GOLDSMITH Consulting Unavailable SANDRA AUSTIN Primary Care Unavailable MARQUITA ., DR GOLDSMITH Attending Unavailable MARYSOL, DR MANUELITO Foley Consulting Unavailable MARQUITA ., DR GOLDSMITH Admitting Unavailable MARQUITA ., DR GOLDSMITH Consulting Unavailable Yari Ramonita Unavailable Geovanna CRYSTAL INSPECTOR, Sandra Hall Primary Care Provider AGUS JUÁREZ Attending Unavailable MARQUITA, AGUS Attending Unavailable MARQUITA, AGUS Attending Unavailable MARYLOU PRIEST Attending Unavailable MARQUITA, AGUS Attending Unavailable MARQUITA, AGUS Attending Unavailable MARQUITA, AGUS Attending Unavailable MARYLOU PRIEST Attending Unavailable MARQUITA, AGUS Attending Unavailable MARQUITA, AGUS Attending Unavailable Medications Current Medications Medication [...] aspirin 81 mg delayed release oral tablet (10 sources) Platelet Aggregation Inhibitor, Nonsteroidal Anti-inflammatory Drug [...] Active cetirizine hydrochloride 10 mg oral tablet (19 sources) Histamine-1 Receptor Antagonist Start: 10-23-2019 take 30 mg by mouth once daily Cetirizine Active 30 MG PO Daily October 23, 2019 1:00am take 1 tablet by mouth once lolis y cetirizine (ZyrTEC) 10 MG tablet Take 10 mg by mouth Daily Active cholecalciferol 0.025 mg oral tablet (19 sources) Vitamin D Start: 02-13-2024 take 1 [...] May, Active citalopram 20 mg oral tablet (16 sources) Serotonin Reuptake Inhibitor Start: 08-04-2024 End: [...] Cranberry Active famotidine 20 mg oral tablet (4 sources) Histamine-2 Receptor Antagonist Start: End: take 1 tablet by mouth once daily famotidine (Pepcid) 20 MG tablet Indications: Gastroesophageal Reflux Disease , Heartburn Take 1 tablet (20 mg) by mouth Daily 30 tablet 3 08/25/2024 09/24/2024 Active levothyroxine sodium 0.05 mg oral tablet (20 sources) l-Thyroxine Start: take 1 tablet by [...] e magnesium oxide 400 mg oral tablet (6 sources) take 1 tablet by mouth at bedtime magnesium oxide (Mag-Ox) 400 mg tablet Take 400 mg by mouth at bedtime Active metFORMIN hydrochloride 500 mg oral tablet (1 source) Biguanide take 1 tablet by mouth every twelve hours metFORMIN HCl 500 MG 1 tablet with a meal Orally twice a day Active ondansetron 4 mg disintegrating oral tablet (5 sources) Serotonin-3 Receptor Antagonist Start: 08-25-20 End: 09-24-20 24 take 1 tablet by mouth every six [...] hours February 13, 2024 12:00am polymyxin b 74686 unt/ml / trimethoprim 1 mg/ml ophthalmic solution (3 sources) Dihydrofolate Reductase Inhibitor Antibacterial, Polymyxin-class Antibacterial Start: 01-04-2023 Polymyxin B-Trimethoprim 19548-8.1 UNIT/ML 1 drop into affected eye Ophthalmic every 3 hours up to six times daily for 7 days Dec, Active (10 sources) Active Vtqaucum-Eyf-Uc-FA ( 1 + IRON PO) (10 sources) Jblgimup-Wbt-Pn-FA ( 1 + IRON PO) Take by [...] acid 7540 MG / polyethylene glycol 3350 81196 MG / potassium chloride 1200 MG / sodium ascorbate 17511 MG / sodium chloride 3200 MG Powder for Oral Solution) / 1 (polyethylene glycol 3350 536792 MG / potassium chloride 1000 MG / [...] 23, 2019 1:00am February 13, 2024 11:15am omeprazole 20 mg delayed release oral capsule (12 sources) Proton Pump Inhibitor Start: 08-18-2024 End: 08-18-2025 take 2 capsules by mouth before mealtime omeprazole (PriLOSEC) [address] capsule Indications: Heartburn during in third trimester Take 2 capsules (40 mg) by mouth in the morning. Take before meals. Do not crush or chew.. 60 capsule 11 08/18/2024 09/01/2024 Discontinued Start: 03-02-2024 End: 03-02-2025 take 1 capsule by mouth before mealtime omeprazole (PriLOSEC) [address] capsule Indications: Heartburn during in third trimester Take 1 capsule (20 mg) by mouth in the morning. Take before meals. Do not crush or chew.. 30 capsule 11 03/02/2024 08/18/2024 Discontinued Problems Active Problems Problem Classification Problem Date Documented Da te Episodic/Chronic Allergic reactions (5 sources) Atopic dermatitis; Translations: [Other atopic dermatitis] Chronic Anxiety disorders (20 sources) Anxiety; Translations: [Anxiety disorder, unspecified] Onset: 12-21-2021 Resolved: 12-21-2021 Chronic Chronic obstructive pulmonary disease and bronchiectasis (1 source) Bronchitis, not specified as acute or chronic Episodic Esophageal disorders (9 sources) Gastro-esophageal reflux disease without esophagitis; Translations: [Gastroesophageal reflux disease] Onset: 09-17-2022 08-18-2024 Chronic Hypertension complicating ; childbirth and the puerperium (8 sources) Unspecified maternal hypertension, third trimester; Translations: [Unspecified pre-existing hypertension complicating , third trimester] Onset: 08-17-2022 Chronic Inflammation; infection of eye (except that caused by tuberculosis or sexually transmitteddisease) (1 source) Unspecified conjunctivitis Episodic Nausea and vomiting (8 sources) Nausea and vomiting; Translations: [Nausea with [...] otitis externa, bilateral Episodic Other endocrine disorders (20 sources) Polycystic ovary syndrome; Translations: [Polycystic ovarian [...] calories Chronic Other and delivery including normal (13 sources) Encounter for care and examination of [...] of ] 08-04-2024 Episodic Residual codes; unclassified (8 sources) Gestation period, 34 weeks; Translations: [34 weeks gestation of ] Onset: 08-18-2024 08-18-2024 Episodic Residual codes; unclassified (2 sources) Gestation period, 36 weeks; Translations: [36 weeks gestation of ] 09-01-2024 Episodic Spondylosis; intervertebral disc disorders; other back problems (2 sources) Low back pain; Translations: [Low back pain] 02-13-2024 Episodic Thyroid disorders (20 sources) Hypothyroidism; Translations: [Other specified hypothyroidism] Onset: 12-21-2021 Resolved: 12-21-2021 Chronic Unclassified (1 source) CONTACT W/AND (SUSP) EXPOS COVID-19; Translations: [CONTACT W/AND (SUSP) EXPOS COVID-19] Onset: 09-17-2022 Past or Other Problems Problem Classification Problem Date Documented Date Episodic/Chronic Abdominal pain (12 sources) Left lower quadrant pain; Translations: [Abdominal [...] Episodic Other ear and sense organ disorders (11 sources) Otalgia, right ear; Translations: [Otalgia, unspecified] [...] Range Facility Urinalysis macro (dipstick) panel (U)on 09-01-2024 Bilirubin, UA Negative Negative - 4(70) +++ mg/dL [facility] Blood, UA Negative Negative - 50 Jose Manuel/mcL [facility] Clarity, UA Clear [facility] Color, UA Yellow [facility] Glucose, UA Negative Negative - 1999(110) ++++ mg/dL [facility] Interpretation and review of laboratory results Abnormal [facility] Ketones, UA Negative Negative - 160(16) ++++ mg/dL [facility] Leukocytes, UA Trace Negative - 500+++ Alexys/mcL [facility] Nitrite, UA Negative Negative - Positive [facility] pH, UA 7 5 - 9 [facility] Protein, UA Negative Negative - 1999(20) ++++ mg/dL [facility] Spec Grav, UA 1.015 1 - 1.03 [facility] Urobilinogen, UA 0.2 0.2 - 12 mg/dL [facility] ALL THYROID STIM HORMONEon 1 10-29-2023 TSH Qn 0.716 m[IU]/L [facility] Urinalysis macro (dipstick) panel (U)on 08-18-2024 Bilirubin, UA Negative Negative - 4(70) +++ mg/dL [facility] Blood, UA Negative Negative - 50 Jose Manuel/mcL [facility] Clarity, UA Clear [facility] Color, UA Yellow [facility] Glucose, UA Negative Negative - 1999(110) ++++ mg/dL [facility] Interpretation and review of laboratory results Normal [facility] Ketones, UA Negative Negative - 160(16) ++++ mg/dL [facility] Leukocytes, UA Negative Negative - 500+++ Alexys/mcL [facility] Nitrite, UA Negative Negative - Positive [facility] pH, UA 6.5 5 - 9 [facility] Protein, UA Negative Negative - 1999(20) ++++ mg/dL [facility] Spec Grav, UA 1.01 1 - 1.03 [facility] Urobilinogen, UA 0.2 0.2 - 12 mg/dL [facility] Urinalysis macro (dipstick) panel (U)on 08-04-2024 Bilirubin, UA Negative Negative - 4(70) +++ mg/dL [facility] Blood, UA Negative Negative - 50 Jose Manuel/mcL [facility] Clarity, UA Clear [facility]A Yellow [facility] Glucose, UA Negative Negative - 1999(110) ++++ mg/dL [facility] Interpretation and review of laboratory results Abnormal [facility] Ketones, UA Negative Negative - 160(16) ++++ mg/dL [facility] Leukocytes, UA Trace Negative - 500+++ Alexys/mcL [facility] Nitrite, UA Negative Negative - Positive [facility] pH, UA 7.0 5 - 9 [facility] e Protein, UA Negative Negative - 1999(20) ++++ mg/dL [facility] Spec Grav, UA 1.015 1 - 1.03 [facility] Urobilinogen, UA 0.2 0.2 - 12 mg/dL [facility] Human papilloma virus 16+18+ 31+33+35+39+45+51+52+56+58+59+66+68 DNA [Presence] in Anders 12-16-2023 HPV 16+18+31+33+35+39+45 +51+52+56+58+59+66+6 8 DNA Probe+sig amp Ql (Cvx) Note . [facility] Comment on above: TESTS RESULT FLAG UN ITS REF RANGE LAB DI AGNOSIS: 02 NEGATIVE FOR INTRAEPITHELIAL LESION OR MALIGNANCY.Specimen adequacy: 02 Satisfactory for evaluation. Endocervical and/or squamous metaplastic cells (endocervical component) are present.Performed by: 02 Raeann Duran, Music Store Manager (ASCP). 02Note: Note 02 The Pap smear is a screening test designed to aid in the detection of premalignant and malignant conditions of the uterine cervix. It is not a diagnostic procedure and should not be used as the sole means of detecting cervical cancer. Both false-positive and false-negative reports do occur.Test Methodology: Note 02 The [employer] Loan Reviewer was unable to read this specimen. Therefore a manual review was performed. ----- FLAG LEGEND: L-Low Normal,H-High Normal,LL-Alert Low,HH-Alert High <-Panic Low,>-Panic High,A-Abnormal,AA-Critical Abnormal ---Performed at:[address] [id number] Heavenly Serrano MD, . 02 The HPV DNA reflex criteria were not met with this specimen result therefore, no HPV testing was performed.The HPV DNA reflex criteria were not met with this specimenresult therefore, no HPV testing was performed.Performed at: =[facility] [id number] Director: Heavenly Serrano MD, Phone: [phone] at: [address] [id number] Director: Heavenly Serrano MD, Phone: [phone] No Panel Informationon 12-16 Reference Lab Test Patient Age Note . [facility] Comment on above: TESTS RESULT FLAG UN ITS REF RANGE LAB Clinician Provided Cytology Information Source.............Cervix No. of containers..01 ThinPrep VialAge Niruo DELORIS Leslye... FLAG LEGEND: L-Low Normal,H-High Normal,LL-Alert Low,HH-Alert High <-Panic Low,>-Panic High,A-Abnormal,AA-Critical Abnormal ---Performed at:01 =[facility] [id number] Heavenly Serrano MD, A1C HEMOGLOBINon 10-31-2023 HbA1c (Bld) [Mass fraction] 5.8 % [facility] Other HbA1c (Bld) [Mass fraction]o n 10-31-2023 A1C HEMOGLOBIN [facility] Other A1C HEMOGLOBINon 06-24-2023 HbA1c (Bld) [Mass fraction] 5.2 % [facility] Other HbA1c (Bld) [Mass fraction]o n 06-24-2023 A1C HEMOGLOBIN [facility] Other Quick Strepon 04-15-2023 S. pyogenes Org specific cx Ql (Throat) Positive [facility] Other Quick Strep [facility] Other FREE T4on 02-21-2023 Free T4 [Mass/Vol] 0.89 ng/dL Normal 0.76-1.46 [facility] Comment on above: Performed By: #### H H #### [facility] [address] [place] [id number] [address] Bella Jerome PROF 14(COMP METB)on 023 Albumin [Mass/Vol] 3.7 g/dL Normal 3.4-5.0 [facility] Comment on above: Performed By: #### H H #### [facility] [address] [place] [address] Dr. Bella Jerome Albumin/Globulin [Mass ratio] 0.9 {ratio} Normal [facility] Comment on above: Performed By: #### H H #### [facility] [address] [place] [address] Dr. Bella Jerome ALP [Catalytic activity/Vol] 132 U/L Critically high 46-116 [facility] Comment on above: Performed By: #### H H #### [facility] [address] [place] [address] Dr. Bella Jerome ALT [Catalytic activity/Vol] 32 U/L Normal 14-59 [facility] Comment on above: Performed By: #### H H #### [facility] [address] [place] [address] Dr. Bella Jerome Anion gap [Moles/Vol] 12.8 mmol/L Normal [facility] Comment on above: Performed By: #### H H #### [facility] [address] [place] [address] Dr. Bella Jerome AST [Catalytic activity/Vol] 23 U/L Normal 15-37 [facility] Comment on above: Performed By: #### H H #### [facility] [address] [place] [address] Dr. Bella Jerome Bilirubin [Mass/Vol] 0.6 mg/dL Normal 0.2-1.0 [facility] Comment on above: Performed By: #### H H #### [facility] [address] [place] [address] Dr. Bella Jerome Calcium [Mass/Vol] 9.0 mg/dL Normal 8.5-10.1 [facility] Comment on above: Performed By: #### H H #### [facility] [address] [place] [address] Dr. Bella Jerome Chloride [Moles/Vol] 102 mmol/L Normal 98-107 [facility] Comment on above: Performed By: #### H H #### [facility] [address] [place] [address] Dr. Bella Jerome CO2 [Moles/Vol] 28.2 mmol/L Normal 21.0-32.0 [facility] Comment on above: Performed By: #### H H #### [facility] [address] [place] [address] Dr. Bella Jerome Creatinine [Mass/Vol] 0.67 mg/dL Normal 0.55-1.02 [facility] Comment on above: Performed By: #### H H #### [facility] [address] [place] [address] Dr. Bella Jerome EGFR-AF SCOTTISH >60 Normal >=60 [facility] Comment on above: Performed By: #### H H #### [facility] [address] [place] [address] Dr. Bella Jerome EGFR-NON AF SCOTTISH >60 Normal >=60 [facility] Comment on above: Performed By: #### H H #### [facility] [address] [place] [address] Dr. Bella Jerome Globulin (S) [Mass/Vol] 4.2 g/dL Normal [facility] Comment on above: Performed By: #### H H #### [facility] [address] [place] [address] Dr. Bella Jerome Glucose [Mass/Vol] 88 mg/dL Normal 74-106 [facility] Comment on above: Performed By: #### H H #### [facility] [address] [place] [address] Dr. Bella Jerome Potassium [Moles/Vol] 4.0 mmol/L Normal 3.5-5.1 [facility] Comment on above: Performed By: #### H H #### [facility] [address] [place] [address] Dr. Bella Jerome Protein [Mass/Vol] 7.9 g/dL Normal 6.4-8.2 [facility] Comment on above: Performed By: #### H H #### [facility] [address] [place] [address] Dr. Bella Jerome Sodium [Moles/Vol] 139 mmol/L Normal 136-145 [facility] Comment on above: Performed By: #### H H #### [facility] [address] [place] [address] Dr. Bella Jerome Urea nitrogen [Mass/Vol] 12.0 mg/dL Normal 7.0-18.0 [facility] Comment on above: Performed By: #### H H #### [facility] [address] [place] [address] Dr. Bella Jerome Urea nitrogen/Creatinine [Mass ratio] 17.9 mg/mg Normal [facility] Comment on above: Performed By: #### H H #### [facility] [address] [place] [address] Dr. Bella Jerome TSHon 02-21-2023 TSH 2.463 uIU/mL Normal 0.358-3.740 [facility] Comment on above: Performed By: #### H H #### [facility] [address] [place] [address] Dr. Bella Jerome VITAMIN D 25 OHon 02-21-2023 VIT D 25-OH 23.1 ng/mL Normal [facility] Comment on above: Performed By: #### H H #### [facility] [address] [place] [address] Dr. Bella Jerome VIT D RANGES SEE BELOW Normal [facility] Comment on above: Result Comment: <20 ng/mL Vit D deficient 20 - <30 ng/mL Vit D insufficient 30 - 100 ng/mL Vit D sufficient >100 ng/mL Potential Toxicity Performed By: #### H H #### [facility] [address] [place] [address] Dr. Bella Jerome CBC AUTO DIFFon 12-26-2022 BASO # 0.0 103/ul Normal 0.0-0.1 [facility] Comment on above: Performed By: #### C BC #### [facility] [address] [place] [address] Dr. Bella Jerome Basophils/100 WBC (Bld) 0.3 % Normal 0.2-2.0 [facility] Comment on above: Performed By: #### C BC #### [facility] [address] [place] [address] Dr. Bella Jerome EO # 0.1 103/ul Normal 0.0-0.7 [facility] Comment on above: Performed By: #### C BC #### [facility] [address] [place] [address] Dr. Bella Jerome Eosinophils/100 WBC (Bld) 1.6 % Normal 0.9-7.0 [facility] Comment on above: Performed By: #### C BC #### [facility] [address] [place] [address] Dr. Bella Jerome Erythrocyte distribution width (RBC) [Ratio] 12.7 % Normal 11.0-15.0 [facility] Comment on above: Performed By: #### C BC #### [facility] [address] [place] [address] Dr. Bella Jerome Hematocrit (Bld) [Volume fraction] 37.2 % Normal 36.0-48.0 [facility] Comment on above: Performed By: #### C BC #### [facility] [address] [place] [address] Dr. Bella Jerome Hemoglobin (Bld) [Mass/Vol] 12.5 g/dL Normal 12.0-16.0 [facility] Comment on above: Performed By: #### C BC #### [facility] [address] [place] [address] Dr. Bella Jerome IG # 0.02 10e3/ul Normal 0.00-0.03 [facility] Comment on above: Performed By: #### C BC #### [facility] [address] [place] [address] Dr. Bella Jerome IG % 0.3 % Normal 0.0-0.5 [facility] Comment on above: Performed By: #### C BC #### [facility] [address] [place] [address] Dr. Bella Jerome LYMPH # 2.3 103/ul Normal 1.2-3.8 [facility] Comment on above: Performed By: #### C BC #### [facility] [address] [place] [address] Dr. Bella Jerome Lymphocytes/100 WBC (Bld) 34.1 % Normal 20.5-60.0 [facility] Comment on above: Performed By: #### C BC #### [facility] [address] [place] [address] Dr. Bella Jerome MANUAL DIFF REQ NO Normal [facility] Comment on above: Performed By: #### C BC #### [facility] [address] [place] [address] Dr. Bella Jerome MCH (RBC) [Entitic mass] 30.9 pg Normal 26.7-34.0 [facility] Comment on above: Performed By: #### C BC #### [facility] [address] [place] [address] Dr. Bella Jerome MCHC (RBC) [Mass/Vol] 33.6 g/dL Normal 29.9-35.2 [facility] Comment on above: Performed By: #### C BC #### [facility] [address] [place] [address] Dr. Bella Jerome MCV (RBC) [Entitic vol] 91.9 fL Normal 81.0-99.0 [facility] Comment on above: Performed By: #### C BC #### [facility] [address] [place] [address] Dr. Bella Jerome MONO # 0.4 103/ul Normal 0.3-0.8 [facility] Comment on above: Performed By: #### C BC #### [facility] [address] [place] [address] Dr. Bella Jerome Monocytes/100 WBC (Bld) 5.1 % Normal 1.7-12.0 [facility] Comment on above: Performed By: #### C BC #### [facility] [address] [place] [address] Dr. Bella Jerome NEUT # 4.0 103/ul Normal 1.4-6.5 [facility] Comment on above: Performed By: #### C BC #### [facility] [address] [place] [address] Dr. Bella Jerome Neutrophils/100 WBC (Bld) 58.6 % Normal 43.0-75.0 [facility] Comment on above: Performed By: #### C BC #### [facility] [address] [address] [address] Bella Jerome Platelet mean volume (Bld) [Entitic vol] 11.5 fL Normal 9.5-13.5 [facility] Comment on above: Performed By: #### C BC #### [facility] [address] [address] [address] Bella Jerome PLT 243 103/ul Normal 150-450 [facility] Comment on above: Performed By: #### C BC #### [facility] [address] [address] [address] Bella Jerome RBC 4.05 106/ul Critically low 4.20-5.40 [facility] Comment on above: Performed By: #### C BC #### [facility] [address] [address] [address] Bella Jerome WBC 6.8 103/ul Normal 4.0-11.0 [facility] Comment on above: Performed By: #### C BC #### [facility] [address] [address] [address] Bella Jerome FREE T4on 12-26-2022 Free T4 [Mass/Vol] 1.05 ng/dL Normal 0.76-1.46 [facility] Comment on above: Performed By: #### F T4, VITAD, B12FOL, IRON ####[facility] [id number] [id number] Bella Jerome GLYCOHEMOGLOBIN A1Con 2022 ADA RECOMMENDATION SEE BELOW Normal [facility] Comment on above: Result Comment: ADA RECOMMENDED LIMIT 4.0 - 6.0 ADA THERAPEUTIC TARGET < 7.0 ACTION SUGGESTED > 7.0 Performed By: #### A 1C #### [facility] [address] [address] [address] Bella Jerome Glucose [Mass/Vol] 103 mg/dL Normal [facility] Comment on above: Performed By: #### A 1C #### [facility] [address] [address] [address] Bella Jerome HbA1c (Bld) [Mass fraction] 5.2 % Normal 4.5-6.2 [facility] Comment on above: Performed By: #### A 1C #### [facility] [address] [address] [address] Bella Jerome IRONon 12-26-2022 Iron [Mass/Vol] 74.0 ug/dL Normal 50.0-170.0 [facility] Comment on above: Performed By: #### F T4, VITAD, B12FOL, IRON ####[facility] [id number] [place], [place] [address]JzDr. Bella Jerome LIPID PROFILEon 12-26-2022 CHOL-HDL RATIO NORM SEE BELOW Normal [facility] Comment on above: Result Comment: 3.3 - 4.4 LOW RISK 4.4 - 7.1 AVERAGE RISK 7.1 - 11.0 MODERATE RISK >11.0 HIGH RISK Performed By: #### C MP, TSH, LIPID #### [facility] [address] [address] [address] Bella Jerome Cholesterol [Mass/Vol] 153 mg/dL Normal <=200 [facility] Comment on above: Performed By: #### C MP, TSH, LIPID #### [facility] [address] [address] [address] Bella Jerome Cholesterol in HDL [Mass/Vol] 67 mg/dL Critically high 40-60 [facility] Comment on above: Performed By: #### C MP, TSH, LIPID #### [facility] [address] [address] [address] Bella Jerome Cholesterol in LDL [Mass/Vol] 77.2 mg/dL Normal [facility] Comment on above: Performed By: #### C MP, TSH, LIPID #### [facility] [address] [address] [address] Bella Jerome Cholesterol.total/Ch olesterol in HDL [Mass ratio] 2.3 {ratio} Normal [facility] Comment on above: Performed By: #### C MP, TSH, LIPID #### [facility] [address] [address] [address] Bella Jerome HDL NORMAL > or = 60 mg/dl - LOW CARDIOVASCULAR RISK <40 mg/dl - HIGH CARDIOVASCULAR RISK Normal [facility] Comment on above: Performed By: #### C MP, TSH, LIPID #### [facility] [address] [address] [address] Bella Jerome LDL CALC NORMAL SEE BELOW Normal [facility] Comment on above: Result Comment: <100 mg/dl OPTIMAL 100 - 129 mg/dl NEAR OR ABOVE OPTIMAL 130 - 159 mg/dl BORDERLINE HIGH 160 - 189 mg/dl HIGH >190 mg/dl VERY HIGH Performed By: #### C MP, TSH, LIPID #### [facility] [address] [address] [address] Bella Jerome Triglyceride [Mass/Vol] 44 mg/dL Normal <=150 [facility] Comment on above: Performed By: #### C MP, TSH, LIPID #### [facility] [address] [address] [address] Bella Jerome VLDL CALC 8.8 mg/dL Normal [facility] Comment on above: Performed By: #### C MP, TSH, LIPID #### [facility] [address] [address] [address] Bella Jerome MICROALB CREAT RATIO RANDOMo n 12-26-2022 mALB 2.3 mg/L Normal <=30.0 [facility] Comment on above: Performed By: #### H H #### [facility] [address] [address] [address] Bella Jerome MALB CR RATIO 17.4 mg/g Normal 0.0-29.9 [facility] Comment on above: Performed By: #### H H #### [facility] [address] [address] [address] Bella Jerome MALB CR RATIO RANGE SEE BELOW Normal [facility] Comment on above: Result Comment: NO M ICROALBUMINURIA 0-29 MG/G CLINICAL MICROALBUMINURIA 30-300 MG/G MACROALBUMINURIA >300 MG/G Performed By: #### H H #### [facility] [address] [address] [address] Bella Jerome URINE CREAT 131.90 mg/dL Normal 20.00-300.00 [facility] Comment on above: Performed By: #### H H #### [facility] [address] [address] [address] Bella Jerome PROF 14(COMP METB)on 023 Albumin [Mass/Vol] 4.1 g/dL Normal 3.4-5.0 [facility] Comment on above: Performed By: #### C MP, TSH, LIPID #### [facility] [address] [address] [address] Bella Jerome Albumin/Globulin [Mass ratio] 1.3 {ratio} Normal [facility] Comment on above: Performed By: #### C MP, TSH, LIPID #### [facility] [address] [place] [address] Dr. Bella Jerome ALP [Catalytic activity/Vol] 124 U/L Critically high 46-116 [facility] Comment on above: Performed By: #### C MP, TSH, LIPID #### [facility] [address] [address] [address] Bella Jerome ALT [Catalytic activity/Vol] 16 U/L Normal 14-59 [facility] Comment on above: Performed By: #### C MP, TSH, LIPID #### [facility] [address] [address] [address] Bella Jerome Anion gap [Moles/Vol] 13.4 mmol/L Normal [facility] Comment on above: Performed By: #### C MP, TSH, LIPID #### [facility] [address] [address] [address] Bella Jerome AST [Catalytic activity/Vol] 17 U/L Normal 15-37 [facility] Comment on above: Performed By: #### C MP, TSH, LIPID #### [facility] [address] [address] [address] Bella Jerome Bilirubin [Mass/Vol] 0.8 mg/dL Normal 0.2-1.0 [facility] Comment on above: Performed By: #### C MP, TSH, LIPID #### [facility] [address] [address] [address] Bella Jerome Calcium [Mass/Vol] 8.9 mg/dL Normal 8.5-10.1 [facility] Comment on above: Performed By: #### C MP, TSH, LIPID #### [facility] [address] [address] [address] Bella Jerome Chloride [Moles/Vol] 103 mmol/L Normal 98-107 [facility] Comment on above: Performed By: #### C MP, TSH, LIPID #### [facility] [address] [address] [address] Bella Jerome CO2 [Moles/Vol] 25.6 mmol/L Normal 21.0-32.0 [facility] Comment on above: Performed By: #### C MP, TSH, LIPID #### [facility] [address] [address] [address] Bella Jerome Creatinine [Mass/Vol] 0.55 mg/dL Normal 0.55-1.02 [facility] Comment on above: Performed By: #### C MP, TSH, LIPID #### [facility] [address] [place] [address] Dr. Bella Jerome EGFR-AF SCOTTISH >60 Normal >=60 [facility] Comment on above: Performed By: #### C MP, TSH, LIPID #### [facility] [address] [address] [address] Bella Jerome EGFR-NON AF SCOTTISH >60 Normal >=60 [facility] Comment on above: Performed By: #### C MP, TSH, LIPID #### [facility] [address] [address] [address] Bella Jerome Globulin (S) [Mass/Vol] 3.1 g/dL Normal [facility] Comment on above: Performed By: #### C MP, TSH, LIPID #### [facility] [address] [place] [address] Dr. Bella Jerome Glucose [Mass/Vol] 82 mg/dL Normal 74-106 [facility] Comment on above: Performed By: #### C MP, TSH, LIPID #### [facility] [address] [place] [address] Dr. Bella Jerome Potassium [Moles/Vol] 4.0 mmol/L Normal 3.5-5.1 [facility] Comment on above: Performed By: #### C MP, TSH, LIPID #### [facility] [address] [place] [address] Dr. Bella Jerome Protein [Mass/Vol] 7.2 g/dL Normal 6.4-8.2 [facility] Comment on above: Performed By: #### C MP, TSH, LIPID #### [facility] [address] [place] [address] Dr. Bella Jerome Sodium [Moles/Vol] 138 mmol/L Normal 136-145 [facility] Comment on above: Performed By: #### C MP, TSH, LIPID #### [facility] [address] [place] [address] Dr. Bella Jerome Urea nitrogen [Mass/Vol] 14.0 mg/dL Normal 7.0-18.0 [facility] Comment on above: Performed By: #### C MP, TSH, LIPID #### [facility] [address] [place] [address] Dr. Bella Jerome Urea nitrogen/Creatinine [Mass ratio] 25.5 mg/mg Normal [facility] Comment on above: Performed By: #### C MP, TSH, LIPID #### [facility] [address] [place] [address] Dr. Bella Jerome TSHon 12-26-2022 TSH 0.224 uIU/mL Critically low 0.358-3.740 [facility] Comment on above: Performed By: #### C MP, TSH, LIPID #### [facility] [address] [place] [address] Dr. Bella Jerome VIT B12 AND FOLATEon 023 Cobalamin (Vitamin B12) [Mass/Vol] 702.0 pg/mL Normal 193.0-986.0 [facility] Comment on above: Performed By: #### F T4, VITAD, B12FOL, IRON ####[facility] [address] [phone] Jerome FOLATE 25.10 ng/mL Normal 8.60-58.90 [facility] Comment on above: Performed By: #### F T4, VITAD, B12FOL, IRON ####[facility] [address] [phone] Jerome VITAMIN D 25 OHon 12-26-2022 VIT D 25-OH 25.4 ng/mL Normal [facility] Comment on above: Performed By: #### F T4, VITAD, B12FOL, IRON ####[facility] [address] [address]DrWill Jerome VIT D RANGES SEE BELOW [facility] Comment on above: Result Comment: <20 ng/mL Vit D deficient 20 - <30 ng/mL Vit D insufficient 30 - 100 ng/mL Vit D sufficient >100 ng/mL Potential Toxicity Performed By: #### F T4, VITAD, B12FOL, IRON ####[facility] [address] [address]DrWill Jerome PAP ACOG PANEL 2: 21 to 31on 12-18-2022 . . Normal [facility] Comment on above: Performed By: #### C BC #### [facility] [address] [place] [address] Dr. Bella Jerome Age Gdln ACOG Testing - Normal [facility] Comment on above: Performed By: #### C BC #### [facility] [address] [place] [address] Dr. Bella Jerome DIAGNOSIS: Comment Normal [facility] Comment on above: Result Comment: NEGA TIVE FOR INTRAEPITHELIAL LESION OR MALIGNANCY. Performed By: #### C BC #### [facility] [address] [place] [address] Dr. Bella Jerome Methodology: Comment Normal [facility] Comment on above: Result Comment: This liquid based ThinPrep(R) pap test was screened with the use of an image guided system. Performed By: #### C BC #### [facility] [address] [address] [address] Bella Jerome Note: Comment Normal [facility] Comment on above: Result Comment: The Pap smear is a screening test designed to aid in the detection of premalignant and malignant conditions of the uterine cervix. It is not a diagnostic procedure and should not be used as the sole means of detecting cervical cancer. Both false-positive and false-negative reports do occur. . Performed By: #### C BC #### [facility] [address] [address] [address] Bella Jerome Performed by: Comment Normal [facility] [place] [facility] Comment on above: Result Comment: Byron Irby, Music Store Manager (ASCP) Performed By: #### C BC #### [facility] [address] [place] [address] Dr. Bella Jerome Reflex Criteria: Comment Normal [facility] Comment on above: Result Comment: The HPV DNA reflex criteria were not met with this specimen result therefore, no HPV testing was performed. . Performed By: #### C BC #### [facility] [address] [place] [address] Dr. Bella Jerome Specimen adequacy: Comment Normal [facility] Comment on above: Result Comment: Sati sfactory for evaluation. Endocervical and/or squamous metaplastic cells (endocervical component) are present. Performed By: #### C BC #### [facility] [address] [place] [address] Dr. Bella Jerome CBC W MANUAL DIFFon 09-07-20 22 ATYPICAL LYMPH # Normal [facility] Comment on above: Performed By: #### C BCMAN ####[facility] [address] [address]Dr. Bella Jerome ATYPICAL LYMPH % Normal [facility] Comment on above: Performed By: #### C BCMAN ####[facility] [address] [address]Dr. Bella Jerome BAND # 0.2 103/ul Normal 0.0-0.3 [facility] Comment on above: Performed By: #### C BCMAN ####[facility] [address] [address]Dr. Bella Jerome BAND % 1 % Normal 0-5 [facility] Comment on above: Performed By: #### C BCMAN ####[facility] [address] [address]Dr. Bella Jerome BASOM # 0.00 103/ul Normal 0.00-0.10 [facility] Comment on above: Performed By: #### C BCMAN ####[facility] [address] [address]Dr. Bella Jerome BASOM % 0.0 % Critically low 0.2-2.0 [facility] Comment on above: Performed By: #### C BCMAN ####[facility] [address] [place], [place] [address]Dr. Bella Jerome BLAST # Normal [facility] Comment on above: Performed By: #### C BCRELL ####[facility] [address] [place], [place] [address]Dr. Yiwally Jerome BLAST % Normal [facility] Comment on above: Performed By: #### C BCRELL ####[facility] [address] [place], [place] [address]Dr. Bella Jerome CORRECTED WBC Normal 4.0-11.0 [facility] [place] [facility] Comment on above: Performed By: #### C BCRELL ####[facility] [address] [place], [place] [address]Dr. Bella Jerome EOS # 0.00 103/ul Normal 0.00-0.70 [facility] Comment on above: Performed By: #### C BCRELL ####[facility] [address] [address]Dr. Bella Jerome EOS% 0.0 % Critically low 0.9-7.0 [facility] Comment on above: Performed By: #### C BCMAN ####[facility] [address] [address]Dr. Bella Jerome HCT 30.5 % Critically low 36.0-48.0 [facility] Comment on above: Performed By: #### C BCMAN ####[facility] [address] [place], [place] [address]Pt. Bella Jerome HGB 10.5 g/dl Critically low 12.0-16.0 [facility] Comment on above: Performed By: #### C PEDRO ####[facility] [address] [place], [place] [address]Ig. Bella Jerome LYMPHM # 2.78 103/ul Normal 1.20-3.80 [facility] Comment on above: Performed By: #### C PEDRO ####[facility] [address] [place], [place] [address]Nq. Bella Jerome LYMPHM% 13.0 % Critically low 20.5-60.0 [facility] Comment on above: Performed By: #### C PEDRO ####[facility] [address] [place], [place] [address]Jh. Bella Jerome MCH 32.8 pg Normal 26.7-34.0 [facility] Comment on above: Performed By: #### Jennifer VASQUEZ ####[facility] [address] [phone]. Bella Jerome MCHC 34.4 g/dl Normal 29.9-35.2 [facility] Comment on above: Performed By: #### C PEDRO ####[facility] [address] [place], [place] [address]Of. Bella Jerome MCV 95.3 fL Normal 81.0-99.0 [facility] Comment on above: Performed By: #### Jennifer VASQUEZ ####[facility] [address] [place], [place] [address]Mq. Bella Jerome METAMYELOCYTE # Normal [facility] Comment on above: Performed By: #### C PEDRO ####[facility] [address] [place], [place] [address]Jo. Bella Jreome METAMYELOCYTE % Normal [facility] Comment on above: Performed By: #### Jennifer VASQUEZ ####[facility] [address] [phone]. Bella Jerome MONOM# 2.35 103/ul Critically high 0.30-0.80 [facility] Comment on above: Performed By: #### C PEDRO ####[facility] [address] [phone]. Bella Justus MONOM% 11.0 % Normal 1.7-12.0 [facility] Comment on above: Performed By: #### C PEDRO ####[facility] [address] [phone]. Bella Justus MPV 11.1 fL Normal 9.5-13.5 [facility] Comment on above: Performed By: #### C PEDRO ####[facility] [address] [address]Dr. Bella Justus MYELOCYTE # Normal [facility] Comment on above: Performed By: #### C PEDRO ####[facility] [address] [phone]. Bella Jerome MYELOCYTE % Normal [facility] Comment on above: Performed By: #### C PEDRO ####[facility] [address] [phone]. Bella Justus NRBC Normal [facility] Comment on above: Performed By: #### C PEDRO ####[facility] [address] [phone]. Liwally Justus PLT 227 103/ul Normal 150-450 [facility] Comment on above: Performed By: #### C PEDRO ####[facility] [address] [phone]. Bella Jerome RBC 3.20 106/ul Critically low 4.20-5.40 [facility] Comment on above: Performed By: #### C PEDRO ####[facility] [address] [place], [place] [address]Dr. Liwally Justus RDW 12.8 % Normal 11.0-15.0 [facility] Comment on above: Performed By: #### C PEDRO ####[facility] [address] [place], [place] [address]Dr. Belal Jerome SEG # 16.05 103/ul Critically high 1.40-6.50 [facility] Comment on above: Performed By: #### C BCMAN ####[facility] [address] [address]Dr. Bella Jerome SEG % 75.0 % Normal 43.0-75.0 [facility] Comment on above: Performed By: #### C BCMAN ####[facility] [address] [address]Dr. Bella Jerome WBC 21.4 103/ul Critically high 4.0-11.0 [facility] Comment on above: Performed By: #### C BCMAN ####[facility] [address] [address]Dr. Bella Jerome CBC AUTO DIFFon 09-05-2022 BASO # 0.0 103/ul Normal 0.0-0.1 [facility] Comment on above: Performed By: #### C BC #### [facility] [address] [place] [address] Dr. Bella Jerome Basophils/100 WBC (Bld) 0.2 % Normal 0.2-2.0 [facility] Comment on above: Performed By: #### C BC #### [facility] [address] [place] [address] Dr. Bella Jerome EO # 0.1 103/ul Normal 0.0-0.7 [facility] Comment on above: Performed By: #### C BC #### [facility] [address] [place] [address] Dr. Bella Jerome Eosinophils/100 WBC (Bld) 0.6 % Critically low 0.9-7.0 [facility] Comment on above: Performed By: #### C BC #### [facility] [address] [place] [address] Dr. Bella Jerome Erythrocyte distribution width (RBC) [Ratio] 12.6 % Normal 11.0-15.0 [facility] Comment on above: Performed By: #### C BC #### [facility] [address] [place] [address] Dr. Bella Jerome Hematocrit (Bld) [Volume fraction] 32.5 % Critically low 36.0-48.0 [facility] Comment on above: Performed By: #### C BC #### [facility] [address] [place] [address] Dr. Bella Jerome Hemoglobin (Bld) [Mass/Vol] 11.1 g/dL Critically low 12.0-16.0 [facility] Comment on above: Performed By: #### C BC #### [facility] [address] [address] [address] Bella Jerome IG # 0.14 10e3/ul Critically high 0.00-0.03 [facility] Comment on above: Performed By: #### C BC #### [facility] [address] [place] [address] Dr. Bella Jerome IG % 1.1 % Critically high 0.0-0.5 [facility] Comment on above: Performed By: #### C BC #### [facility] [address] [place] [address] Dr. Bella Jerome LYMPH # 2.6 103/ul Normal 1.2-3.8 [facility] Comment on above: Performed By: #### C BC #### [facility] [address] [place] [address] Dr. Bella Jerome Lymphocytes/100 WBC (Bld) 20.2 % Critically low 20.5-60.0 [facility] Comment on above: Performed By: #### C BC #### [facility] [address] [place] [address] Dr. Bella Jerome MANUAL DIFF REQ NO Normal [facility] Comment on above: Performed By: #### C BC #### [facility] [address] [address] [address] Bella Jerome MCH (RBC) [Entitic mass] 32.2 pg Normal 26.7-34.0 [facility] Comment on above: Performed By: #### C BC #### [facility] [address] [place] [address] Dr. Bella Jerome MCHC (RBC) [Mass/Vol] 34.2 g/dL Normal 29.9-35.2 [facility] Comment on above: Performed By: #### C BC #### [facility] [address] [place] [address] Dr. Bella Jerome MCV (RBC) [Entitic vol] 94.2 fL Normal 81.0-99.0 [facility] Comment on above: Performed By: #### C BC #### [facility] [address] [place] [address] Dr. Bella Jerome MONO # 0.9 103/ul Critically high 0.3-0.8 [facility] Comment on above: Performed By: #### C BC #### [facility] [address] [place] [address] Dr. Bella Jerome Monocytes/100 WBC (Bld) 7.1 % Normal 1.7-12.0 [facility] Comment on above: Performed By: #### C BC #### [facility] [address] [place] [address] Dr. Bella Jerome NEUT # 8.9 103/ul Critically high 1.4-6.5 [facility] Comment on above: Performed By: #### C BC #### [facility] [address] [place] [address] Dr. Bella Jerome Neutrophils/100 WBC (Bld) 70.8 % Normal 43.0-75.0 [facility] Comment on above: Performed By: #### C BC #### [facility] [address] [place] [address] Dr. Bella Jerome Platelet mean volume (Bld) [Entitic vol] 11.0 fL Normal 9.5-13.5 [facility] Comment on above: Performed By: #### C BC #### [facility] [address] [place] [address] Dr. Bella Jerome PLT 234 103/ul Normal 150-450 [facility] Comment on above: Performed By: #### C BC #### [facility] [address] [place] [address] Dr. Bella Jerome RBC 3.45 106/ul Critically low 4.20-5.40 [facility] Comment on above: Performed By: #### C BC #### [facility] [address] [place], [place] [address] Dr. Bella Jerome WBC 12.6 103/ul Critically high 4.0-11.0 [facility] Comment on above: Performed By: #### C BC #### [facility] [address] [place], [place] [address] Dr. Bella Jerome Covid-19 PCR ([facility])on SARS-CoV-2 (COVID-19) RNA FAVIAN+probe Ql (Unsp spec) Not detected Normal NOT DETECTED [facility] Comment on above: Result Comment: When [...] for this test is supported by the Product Finisher of Health and Human Service's declaration that [...] be used). Performed By: #### C VDTBH ####[facility] [address] [place], [place] [address]Gy. Bella Jerome DRUG SCREEN RAPID (URINE)on 09-05-2022 AMP Negative Normal NEGATIVE [facility] Comment on above: Performed By: #### D RUGRPD ####[facility] [address] [phone]. Bella Jerome BAR Negative Normal NEGATIVE [facility] Comment on above: Performed By: #### D RUGRPD ####[facility] [address] [phone] Jerome BUP Negative Normal NEGATIVE [facility] Comment on above: Performed By: #### D RUGRPD ####[facility] [address] [phone]. Bella Jerome BZO Negative Normal NEGATIVE [facility] Comment on above: Performed By: #### D RUGRPD ####[facility] [address] [phone]. Bella Jerome NGA Negative Normal NEGATIVE [facility] Comment on above: Performed By: #### D RUGRPD ####[facility] [address] [place], [place] [id number]. Bella Jerome CUT-OFFS SEE BELOW Normal [facility] Comment on above: Result Comment: AMP (Amphetamine): 500ng/mL, BAR (Barbituates): 200 ng/mL, BZO (Benzodiazepines): 150 ng/mL, BUP (Buprenorphine): 10 ng/mL, NGA (Cocaine): 150 ng/mL, mAMP (Methamphetamine): 500 ng/mL, MTD (Methadone): 200 ng/mL, OPI (Opiates): 100 ng/mL, OXY (Oxycodone): 100 ng/mL, PCP (Phencyclidine): 25 ng/mL, PPX (Propoxyphene): 300 ng/mL, THC (Cannabinoids): 50 ng/mL, TCA (Trycyclic Antidepressants): 300 ng/mL Performed By: #### D RUGRPD ####[facility] [address] [place], [place] [id number]. Bella Jerome DRUG CUT HEADER DRUG CLASS TEST SYSTEM CUT-OFF CONCENTRATIONS ARE FOLLOWS: Normal [facility] Comment on above: Performed By: #### D RUGRPD ####[facility] [address] [id number]. Bella Jerome mAMP Negative Normal NEGATIVE [facility] Comment on above: Performed By: #### D RUGRPD ####[facility] [address] [id number]. Bella Jerome MTD Negative Normal NEGATIVE [facility] Comment on above: Performed By: #### D RUGRPD ####[facility] [address] [phone]. Bella Jerome OPI Negative Normal NEGATIVE [facility] Comment on above: Performed By: #### D RUGRPD ####[facility] [address] [phone]. Yiwally Jerome OXY Negative Normal NEGATIVE [facility] Comment on above: Performed By: #### D RUGRPD ####[facility] [address] [id number]. Bella Jerome PCP Negative Normal NEGATIVE [facility] Comment on above: Performed By: #### D RUGRPD ####[facility] [address] [address]Dr. Bella Jerome PPX Negative Normal NEGATIVE [facility] Comment on above: Performed By: #### D RUGRPD ####[facility] [address] [address]Dr. Bella Jerome TCA Negative Normal NEGATIVE [facility] Comment on above: Performed By: #### D RUGRPD ####[facility] [address] [place], [place] [id number]. Bella Jerome THC Negative Normal NEGATIVE [facility] Comment on above: Performed By: #### D RUGRPD ####[facility] [address] [address]Dr. Bella Jerome TYPE AND SCREENon 09-05-2022 TYPE AND SCREEN Negative Normal [facility] Comment on above: Performed By: #### T NS ####[facility] [address] [place], [place] [address]Dr. Bella Jerome US PREG BIOPHY W NON [...] by: MANUELITO GREGG Date: 2022-08-31 17:06 Normal [facility] US PREG GROWTHon 08-30-2022 US PREG [...] by: MANUELITO GREGG Date: 2022-08-30 17:59 Normal [facility] US PREG BIOPHY W NON STRESSo [...] by: MANUELITO GREGG Date: 2022-08-24 17:10 Normal [facility] FREE T4on 08-21-2022 Free T4 [Mass/Vol] 0.90 ng/dL Normal 0.76-1.46 [facility] Comment on above: Performed By: #### C BC #### [facility] [address] [address] [address] Bella Jerome TSHon 08-21-2022 TSH 1.033 uIU/mL Normal 0.358-3.740 [facility] Comment on above: Performed By: #### H H #### [facility] [address] [address] [address] Bella Jerome PREG BIOPHY W NON [...] by: MANUELITO GREGG Date: 2022-08-17 18:33 Normal [facility] GROUP B STREP CULTUREon 07-28 S. agalactiae Ag Ql (Unsp spec) Culture Observations: NEGATIVE FOR GROUP B STREPTOCOCCUS. Normal [facility] Comment on above: Performed By: #### G BSCX ####[facility] [address] [address]Dr. Bella Jerome PREG BIOPHY W NON STRESSo [...] MANUELITO GREGG Date: 2022-08-10 16:36 Normal [facility] US PREG GROWTHon 08-10-2022 US PREG [...] MANUELITO GREGG Date: 2022-08-10 16:37 Normal [facility] US PREG GROWTHon 07-25-2022 US PREG [...] by: MANUELITO GREGG Date: 2022-07-25 18:18 Normal [facility] FREE T4on 07-24-2022 Free T4 [Mass/Vol] 0.98 ng/dL Normal 0.76-1.46 [facility] Comment on above: Performed By: #### F T4 #### [facility] [address] [address] [address] Bella Jerome TSHon 07-24-2022 TSH 1.196 uIU/mL Normal 0.358-3.740 [facility] Comment on above: Performed By: #### T SH ####[facility] [address] [place], [place] [address]Dr. Bella Jerome UA (CLEAN/CATCH) CORE CLEANER/MICRO I F IND.on 07-20-2022 Bilirubin Ql (U) Negative Normal NEGATIVE [facility] Comment on above: Performed By: #### H H #### [facility] [address] [place] [address] Dr. Bella Jerome Clarity (U) CLEAR Normal CLEAR [facility] Comment on above: Performed By: #### H H #### [facility] [address] [place] [address] Dr. Bella Jerome Color (U) LT. YELLOW Normal YELLOW [facility] Comment on above: Performed By: #### H H #### [facility] [address] [place] [address] Dr. Bella Jerome Glucose Ql (U) Negative Normal NEGATIVE [facility] Comment on above: Performed By: #### H H #### [facility] [address] [place] [address] Dr. Bella Jerome Hemoglobin Ql (U) Negative Normal NEGATIVE [facility] Comment on above: Performed By: #### H H #### [facility] [address] [place] [address] Dr. Bella Jerome Ketones Ql (U) Negative Normal NEGATIVE [facility] Comment on above: Performed By: #### H H #### [facility] [address] [place] [address] Dr. Bella Jerome LEUKOCYTES Negative Normal NEGATIVE [facility] Comment on above: Performed By: #### H H #### [facility] [address] [place] [address] Dr. Bella Jerome Nitrite Ql (U) Negative Normal NEGATIVE [facility] Comment on above: Performed By: #### H H #### [facility] [address] [place] [address] Dr. Bella Jerome pH (U) 7.0 [pH] Normal 5-9 [facility] Comment on above: Performed By: #### H H #### [facility] [address] [place] [address] Dr. Bella Jerome SPEC GRAVITY <=1.005 Abnormal 1.005-<=1.025 [facility] Comment on above: Performed By: #### H H #### [facility] [address] [place] [address] Dr. Bella Jerome UA PROTEIN Negative Normal NEGATIVE/ TRACE [facility] Comment on above: Performed By: #### H H #### [facility] [address] [place] [address] Dr. Bella Jerome UR MICRO IND NOT INDICATED Normal [facility] Comment on above: Performed By: #### H H #### [facility] [address] [place] [address] Dr. Bella Jerome Urobilinogen Qn (U) 0.2 {Kimberlee'U}/dL Normal 0.2 - 1. 0 [facility] Comment on above: Performed By: #### H H #### [facility] [address] [place] [address] Dr. Bella Jerome US PREG GROWTHon 06-27-2022 [...] by: RAGINI SANTOS Date: 2022-06-27 16:23 Normal [facility] FREE T4on 06-20-2022 Free T4 [Mass/Vol] 0.82 ng/dL Normal 0.76-1.46 [facility] Comment on above: Performed By: #### H H #### [facility] [address] [place] [address] Dr. Bella Jerome GLUCOSE - 1HRon 06-20-2022 Glucose [Mass/Vol] 127 mg/dL Critically high 74-106 [facility] Comment on above: Performed By: #### H H #### [facility] [address] [address] [address] Bella Jerome HEMOGRAM AND PLATELon 2021 Hematocrit (Bld) [Volume fraction] 32.4 % Critically low 36.0-48.0 [facility] Comment on above: Performed By: #### H H #### [facility] [address] [address] [address] Bella Jerome Hemoglobin (Bld) [Mass/Vol] 10.9 g/dL Critically low 12.0-16.0 [facility] Comment on above: Performed By: #### H H #### [facility] [address] [address] [address] Bella Jerome MCH (RBC) [Entitic mass] 32.9 pg Normal 26.7-34.0 [facility] Comment on above: Performed By: #### H H #### [facility] [address] [place] [address] Dr. Bella Jerome MCHC (RBC) [Mass/Vol] 33.6 g/dL Normal 29.9-35.2 [facility] Comment on above: Performed By: #### H H #### [facility] [address] [address] [address] Bella Jerome MCV (RBC) [Entitic vol] 97.9 fL Normal 81.0-99.0 [facility] Comment on above: Performed By: #### H H #### [facility] [address] [address] [address] Bella Jerome PLT 241 103/ul Normal 150-450 [facility] Comment on above: Performed By: #### H H #### [facility] [address] [address] [address] Bella Jerome RBC 3.31 106/ul Critically low 4.20-5.40 [facility] Comment on above: Performed By: #### H H #### [facility] [address] [address] [address] Bella Jerome WBC 11.3 103/ul Critically high 4.0-11.0 [facility] Comment on above: Performed By: #### H H #### [facility] [address] [address] [address] Bella Jerome TSHon 06-20-2022 TSH 3.044 uIU/mL Normal 0.358-3.740 [facility] Comment on above: Performed By: #### C BC #### [facility] [address] [place] [address] Dr. Bella Jerome US PREG INCOMPLETE ANATOMYon 05-24-2022 US PREG INCOMPLETE ANATOMY EXAMINATION: US PREG INCOMPLETE ANATOMY HISTORY: screening COMPARISON: Ultrasound anatomy 04/26/2022 FINDINGS: Presentation: Cephalic Heart rate: 154 bpm Anatomy: Cervical, thoracic, and lumbar spine HERNANDO: 09/13/2022 IMPRESSION: 1. Adequate visualization of the cervical, thoracic, and lumbar spine; no appreciable abnormality. Electronically authenticated by: RAGINI SANTOS Date: 2022-05-24 17:33 Normal [facility] US PREG ANATOMY SINGLEon US PREG [...] by current US: 20 weeks 0 days HERANNDO by current US: 09/13/2022 IMPRESSION: Suboptimal visualization of the spine, otherwise normal anatomy scan *Reference: [employer] Practice Guideline for the performance of Obstetric Ultrasound Examinations, July 28, 2007. Electronically authenticated by: MANUELITO GREGG Date: 2022-04-26 16:54 Normal [facility] CHLAMYDIA/GONOCOCCUS FAVIAN (SW AB/URINE/PAPon 04-19-2022 Chlamydia trachomatis, FAVIAN Negative Normal Negative [facility] Comment on above: Performed By: #### C T/NGNA ####[facility] [address] [address]DrWill Jerome Neisseria gonorrhoeae, FAVIAN Negative Normal Negative [facility] Comment on above: Performed By: #### C T/NGNA ####[facility] [address] [place], [place] [address]MtWill Jerome VAGINITIS/VAGINOSIS DNA PROB Leonid 04-18-2022 Jessica species Negative Normal Negative [facility] Comment on above: Performed By: #### H H #### [facility] [address] [place] [address] Dr. Bella Jerome Gardnerella vaginalis Negative Normal Negative [facility] Comment on above: Performed By: #### H H #### [facility] [address] [place] [address] Dr. Bella Jerome Trichomonas vaginalis Negative Normal Negative [facility] Comment on above: Performed By: #### H H #### [facility] [address] [place] [address] Dr. Bella Jerome FREE T4on 04-05-2022 Free T4 [Mass/Vol] 0.88 ng/dL Normal 0.76-1.46 [facility] Comment on above: Performed By: #### F T4 #### [facility] [address] [place] [address] Dr. Bella Jerome TSHon 04-05-2022 TSH 1.786 uIU/mL Normal 0.358-3.740 [facility] Comment on above: Performed By: #### T SH ####[facility] [address] [place], [place] [address]Dr. Bella Jerome TSH RANGE SEE BELOW Normal [facility] Comment on above: Result Comment: <0.3 4 UIU/ml HYPERTHYROID 0.34-5.60 UIU/ml EUTHYROID >5.60 UIU/ml HYPOTHYROID Performed By: #### T SH ####[facility] [address] [address]Dr. Bella Jerome FREE T4on 02-26-2022 Free T4 [Mass/Vol] 1.06 ng/dL Normal 0.76-1.46 [facility] Comment on above: Performed By: #### C BC #### [facility] [address] [place] [address] Dr. Bella Jerome TSHon 02-26-2022 TSH 2.024 uIU/mL Normal 0.470-4.680 [facility] Comment on above: Performed By: #### C BC #### [facility] [address] [place], [place] [address] Dr. Bella Jerome TSH RANGE SEE BELOW Normal [facility] Comment on above: Result Comment: <0.3 4 UIU/ml HYPERTHYROID 0.34-5.60 UIU/ml EUTHYROID >5.60 UIU/ml HYPOTHYROID Performed By: #### C BC #### [facility] [address] [address] [address] Bella Jerome Vital Signs Date Time Vital Sign Value Performing Clinician Facility 09-01-2024 14:03-0500 Body mass index (BMI) [Ratio] 44.25 kg/m2 Agus Marquita DO Work Phone: [facility] 09-01-2024 14:03-0500 Body weight 113.31 kg Agus Marquita DO Work Phone: [facility] [place] [facility] 09-01-2024 14:03-0500 Diastolic blood pressure 78 mm[Hg] Agus Marquita DO Work Phone: [facility] [place] [facility] 09-01-2024 14:03-0500 Systolic blood pressure 120 mm[Hg] Agus Marquita DO Work Phone: [facility] [place] [facility] 08-18-2024 13:50-0400 Body mass index (BMI) [Ratio] 43.54 kg/m2 Agus Marquita DO Work Phone: [facility] [place] [facility] 08-18-2024 13:50-0400 Body weight 111.49 kg Agus Marquita DO Work Phone: [facility] [place] [facility] 08-18-2024 13:50-0400 Diastolic blood pressure 74 mm[Hg] Agus Marquita DO Work Phone: [facility] [place] [facility] 08-18-2024 13:50-0400 Systolic blood pressure 118 mm[Hg] Agus Marquita DO Work Phone: [facility] [place] [facility] 08-04-2024 13:30-0400 Body mass index (BMI) [Ratio] 44.37 kg/m2 Marylou CARBAJAL Work Phone: [place] [id number] 13:30-0400 Body weight 113.63 kg Marylou CARBAJAL Work Phone: [facility] [place] [facility] 08-04-2024 13:30-0400 Diastolic blood pressure 78 mm[Hg] Marylou CARBAJAL Work Phone: [facility] [place] [facility] 08-04-2024 13:30-0400 Systolic blood pressure 128 mm[Hg] Marylou CARBAJAL Work Phone: [facility] [place] [facility] 02-13-2024 11:24-0400 Body height 160.02 cm [facility] 02-13-2024 11:24-0400 Body mass index (BMI) [Ratio] 42.3 kg/m2 [facility] 02-13-2024 11:24-0400 Body weight 108.49 kg [facility] 02-13-2024 11:24-0400 Diastolic blood pressure 70 mm[Hg] [facility] 02-13-2024 11:24-0400 Heart rate 69 /min [facility] 02-13-2024 11:24-0400 Respiratory rate 18 /min [facility] [place] [facility] 02-13-2024 11:24-0400 SaO2% (BldA) [Mass fraction] 98 % [facility] 02-13-2024 11:24-0400 Systolic blood pressure 118 mm[Hg] [facility] 10-31-2023 15:00-0500 Body height 160.02 cm Sandra Austin Other [facility] [employer] Other 10-31-2023 15:00-0500 Body mass index (BMI) [Ratio] 45.41 kg/m2 Sandra Austin Other [employer] [facility] [employer] Other 10-31-2023 15:00-0500 Body temperature 98.5 [degF] Sandra Austin Other [employer] [facility] [employer] Other 10-31-2023 15:00-0500 Body weight 116.3 kg Sandra Trinh [employer] Other 10-31-2023 15:00-0500 Diastolic blood pressure 80 mm[Hg] Sandra Geovanna Other [employer] Other 10-31-2023 15:00-0500 Respiratory rate 18 /min Sandra Geovanna Other [employer] Other 10-31-2023 15:00-0500 SaO2% (BldA) [Mass fraction] 98 % Sandra Pendletonaldo Other [employer] Other 10-31-2023 15:00-0500 Systolic blood pressure 128 mm[Hg] Sandra Geovanna Other [employer] Other 06-24-2023 14:30-0400 Body height 160.02 cm Sandra Pendletonaldo Other [employer] Other 06-24-2023 14:30-0400 Body mass index (BMI) [Ratio] 44.87 kg/m2 Sandra Pnedletonaldo Other [employer] Other 06-24-2023 14:30-0400 Body weight 114.9 kg Sandra Geovanna Other [employer] Other 06-24-2023 14:30-0400 Diastolic blood pressure 60 mm[Hg] Sandra Geovanna Other [employer] Other 06-24-2023 14:30-0400 Respiratory rate 18 /min Sandra Geovanna Other [employer] Other 06-24-2023 14:30-0400 SaO2% (BldA) [Mass fraction] 99 % Sandra Austin Other [employer] Other 06-24-2023 14:30-0400 Systolic blood pressure 110 mm[Hg] Sandra Austin Other [employer] Other 04-15-2023 09:25-0400 Body height 160.02 cm Ramonita Greenberg Other [employer] Other 04-15-2023 09:25-0400 Body mass index (BMI) [Ratio] 41.8 kg/m2 Ramonita Hornmond Other [employer] Other 04-15-2023 09:25-0400 Body temperature 98.5 [degF] Ramonita Hornmond Other [employer] Other 04-15-2023 09:25-0400 Body weight 107.05 kg Ramonita Hornmond Other [employer] Other 04-15-2023 09:25-0400 Respiratory rate 18 /min Ramonita Hornmond Other [employer] Other 04-15-2023 09:25-0400 SaO2% (BldA) [Mass fraction] 97 % Ramonita Hornmond Other [employer] Other 02-21-2023 14:45-0400 Body height 160.02 cm Sandra Austin Other [employer] Other 02-21-2023 14:45-0400 Body mass index (BMI) [Ratio] 41.39 kg/m2 Sandra Austin Other [employer] Other 02-21-2023 14:45-0400 Body weight 106.01 kg Sandra Geovanna Other [employer] Other 02-21-2023 14:45-0400 Diastolic blood pressure 60 mm[Hg] Sandra Austin Other [employer] Other 02-21-2023 14:45-0400 Respiratory rate 18 /min Sandra Geovanna Other [employer] Other 02-21-2023 14:45-0400 SaO2% (BldA) [Mass fraction] 98 % Sandra Geovanna Other [employer] Other 02-21-2023 14:45-0400 Systolic blood pressure 110 mm[Hg] Sandra Austin Other [employer] Other 12-24-2022 14:30-0500 Body height 160.02 cm Sandra Geovanna Other [employer] Other 12-24-2022 14:30-0500 Body mass index (BMI) [Ratio] 40.83 kg/m2 Sandra Austin Other [employer] Other 12-24-2022 14:30-0500 Body weight 104.55 kg Sandra Austin Other [employer] Other 12-24-2022 14:30-0500 Diastolic blood pressure 70 mm[Hg] Sandra Austin Other [employer] Other 12-24-2022 14:30-0500 Respiratory rate 18 /min Sandra Austin Other [employer] Other 12-24-2022 14:30-0500 SaO2% (BldA) [Mass fraction] 99 % Sandra Austin Other [employer] Other 12-24-2022 14:30-0500 Systolic blood pressure 118 mm[Hg] Sandra Austin Other [employer] Other 12-21-2021 16:30-0500 Body height 160.02 cm Sandra Austin Other [employer] Other 12-21-2021 16:30-0500 Body mass index (BMI) [Ratio] 38.58 kg/m2 Sandra Austin Other [employer] Other 12-21-2021 16:30-0500 Body temperature 97.3 [degF] Sandra Austin Other [employer] Other 12-21-2021 16:30-0500 Body weight 98.79 kg Sandra Austin Other [employer] Other 12-21-2021 16:30-0500 Diastolic blood pressure 60 mm[Hg] Sandra Austin Other [employer] Other 12-21-2021 16:30-0500 Respiratory rate 18 /min Sandra Austin Other [employer] Other 12-21-2021 16:30-0500 SaO2% (BldA) [Mass fraction] 99 % Sandra Austin Other [employer] Other 12-21-2021 16:30-0500 Systolic blood pressure 118 mm[Hg] Sandra Austin Other [facility] [employer] Other Encounters Encounter Date Encounter Type Care Provider Facility Start: 09-01-2024 End: 09-01-2024 Bamboo flowsheet Agus Marquita DO Work Phone: [facility] Start: 09-01-2024 End: 09-01-2024 Bamboo flowsheet Agus Marquita DO Work Phone: [facility] Start: 09-01-2024 End: 09-01-2024 flow sheet Agus Marquita DO Work Phone: [facility] Comment on above: 36 weeks gestation o f ; Third trimester Start: 09-01-2024 End: 09-01-2024 ambulatory AGUS MARQUITA Not Available Start: 08-29-2024 End: 08-29-2024 Clinisync Result Encounter Agus Marquita DO Work Phone: [facility] Unsolicited Start: 08-29-2024 End: 08-29-2024 Clinisync Result Encounter Agus Marquita DO Work Phone: [facility] Unsolicited Start: 08-18-2024 End: 08-18-2024 Bamboo flowsheet Agus Marquita DO Work Phone: [facility] Start: 08-18-2024 End: 08-18-2024 Bamboo flowsheet Agus Amrquita DO Work Phone: [facility] Start: 08-18-2024 End: 08-18-2024 ambulatory AGUS MARQUITA Not Available Start: 08-18-2024 End: 08-18-2024 flow sheet Agus Marquita DO Work Phone: [facility] Comment on above: 34 weeks gestation o f ; Nausea and vomiting, unspecified vomiting type; Gastroesophageal reflux disease, unspecified whether esophagitis present; Heartburn during in third trimester Start: 08-04-2024 End: 08-04-2024 Bamboo flowsheet Marylou CARBAJAL Work Phone: [facility] Start: 08-04-2024 End: 08-04-2024 Bamboo flowsheet Marylou CARBAJAL Work Phone: [facility] Start: 08-04-2024 End: 08-04-2024 ambulatory MARYLOU PRIEST Not Available Start: 08-04-2024 End: 08-04-2024 flow sheet Marylou CARBAJAL Work Phone: [facility] Comment on above: 32 weeks [...] Available Start: 02-14-2024 End: 02-14-2024 ambulatory AGUS MARQUITA Not Available Start: 02-13-2024 End: 02-13-[address] [facility] Work Phone: Start: 02-13-2024 End: 02-13-2024 Patient encounter procedure [facility] [place] Work Phone: Start: 12-16-2023 Non-patient / Non-visit [facility] Professional [employer] Work Phone: Start: 12-16-2023 End: 12-16-2023 ambulatory AGUS MARQUITA Not Available Start: 10-31-2023 End: 10-31-2023 ambulatory Sandra Austin Other [facility] [employer] Other Start: 10-31-2023 Office outpatient vi sit 25 minutes Sandra Austin [facility] Start: 07-19-2023 End: 07-19-2023 ambulatory Sandra Austin Other [employer] Other Start: 07-19-2023 Telephone encounter Sandra Geovanna [facility] [place] Start: 06-24-2023 End: 06-24-2023 ambulatory Sandra Geovanna Other [employer] Other Start: 06-24-2023 Office outpatient vi sit 25 minutes Sandra Austin [facility] [place] Start: 06-04-2023 End: 06-04-2023 ambulatory Sandra Geovanna Other [employer] Other Start: 06-04-2023 Telephone encounter Sandra [facility] Start: 04-15-2023 End: 04-15-2023 ambulatory Ramonita Yari Other [employer] Other Start: 04-15-2023 Office outpatient vi sit 15 minutes Ramonita Yari [facility] Start: 04-11-2023 End: 04-11-2023 ambulatory Sandra Geovanna Other [employer] Other Start: 04-11-2023 Telephone encounter Sandra Geovanna [facility] [place] Start: 02-21-2023 Office outpatient vi sit 25 minutes Sandra Austin [facility] [place] Start: 02-21-2023 End: 02-22-2023 ambulatory SANDRA GEOVANNA [employer] Other Start: 01-04-2023 End: 01-04-2023 ambulatory Sandra Austin Other [employer] Other Start: 01-04-2023 Telephone encounter Sandra Guevara Family [facility] Start: 12-30-2022 Encounter for genera l adult medical examination without abnormal findings SANDRA AUSTIN [facility] Start: 12-27-2022 End: 12-27-2022 ambulatory Sandra Austin Other [facility] [employer] Other Start: 12-27-2022 Telephone encounter Sandra Austin [facility] Start: 12-26-2022 End: 12-27-2022 ambulatory SANDRA AUSTIN Facility:[facility] Start: 12-26-2022 End: 12-27-2022 Encounter for general adult medical examination without abnormal findings SANDRA AUSTIN Facility:[facility] Start: 12-24-2022 End: 12-24-2022 ambulatory Sandra Austin Other [facility] [employer] Other Start: 12-24-2022 Encounter for genera l adult medical examination without abnormal findings Sandra Austin [facility] Family [facility] Start: 12-24-2022 Periodic preventive med est patient 18-39 yrs Sandra Austin [facility] [place] Start: 12-10-2022 End: 12-10-[address] AGUS [...] Facility:[facility] Start: 08-17-2022 End: 08-17-2022 ambulatory VIRGINIA GEORGE Facility:[facility] Start: 08-15-2022 End: 08-15-[address] AGUS JUÁREZ . Facility:[facility] Start: 08-10-2022 End: 08-10-2022 ambulatory SANDRA GEOVANNA Facility:[facility] Start: 07-25-2022 End: 07-26-2022 ambulatory SANDRA [...] 12-21-2021 End: 12-21-2021 ambulatory Sandra Kaple Other [employer] Other Start: 12-21-2021 Office outpatient ne w 45 minutes Sandra Austin [facility] Procedures Date Procedure Procedure Detail Performing Clinician Start: 09-01-2024 Urnls dip stick/tabl et rgnt non-auto w/o micrscp Agus Marquita DO Work Phone: Start: 08-29-2024 ALL THYROID STIM HORMONE Agus [...] EST Office Visit [facility] [address] [id number] Agus Juárez, DO [address] [place] [address] [facility] Start: 09-08-2024 End: 09-08-2024 Patient encounter procedure 09/08/2024 10:50 AM EST Routine [facility] [address] [facility] [place] [id number] Agus Juárez, DO [address] [place] [address] [facility] Start: 09-01-2024 End: 09-01-2025 Strep B DNA probe, amplification Strep B DNA probe, amplification Lab Routine Third trimester Expected: 09/01/2024 (Approximate), Expires: 09/01/2025 [facility] Work Phone: Comment on above: Expected: 09/01/2024 (Approximate), Expires: 09/01/2025 Start: 09-01-2024 End: 09-01-2024 Patient encounter procedure [facility] Comment on above: Arrived Start: 08-18-2024 End: 08-18-2024 Patient encounter procedure 08/18/2024 1:30 PM EDT Routine [facility] [address] [facility] [facility] [place] [address] Agus Juárez, DO [address] [place], [place] [id number] [facility] Start: 08-18-2024 End: 08-18-2024 Professional / ancillary services management 08/18/2024 1:00 PM EDT Ancillary Procedure [facility] [address] [facility] [address] [facility] Patient Education Low back pain in adults [facility] Work Phone: Immunizations Immunization Date Immunization Notes Care Provider [facility] 09-08-2022 diphtheria, tetanus toxoids and pertussis vaccine Marylou CARBAJAL Work Phone: [facility] 09-12-2021 pneumococcal conjuga te vaccine, 13 valent Marylou CARBAJAL Work Phone: [facility] 08-14-1999 diphtheria, tetanus toxoids and acellular pertussis vaccine, unspecified formulation Marylou CARBAJAL Work Phone: [facility] 08-14-1999 haemophilus influenz ae type b vaccine, HbOC conjugate Marylou CARBAJAL Work Phone: [facility] 08-14-1999 measles, mumps and rubella virus vaccine Marylou CARBAJAL Work Phone: [facility] 08-14-1999 trivalent poliovirus vaccine, live, oral Marylou CARBAJAL Work Phone: [facility] 04-27-1998 diphtheria, tetanus toxoids and acellular pertussis vaccine, unspecified formulation Marylou CARBAJAL Work Phone: [facility] 04-27-1998 haemophilus influenz ae type b conjugate and Hepatitis B vaccine Marylou Priest PA Work Phone: [facility] 1997 diphtheria, tetanus toxoids and acellular pertussis vaccine, unspecified formulation Marylou [place] PA Work Phone: [facility] 1997 haemophilus influenz ae type b vaccine, HbOC conjugate Marylou CARBAJAL Work Phone: [facility] 1997 poliovirus vaccine, inactivated Marylou CARBAJAL Work Phone: [facility] 1997 diphtheria, tetanus toxoids and acellular pertussis vaccine, unspecified formulation Marylou CARBAJAL Work Phone: [facility] 1997 haemophilus influenz ae type b conjugate and Hepatitis B vaccine Marylou CARBAJAL Work Phone: [facility] 1997 poliovirus vaccine, inactivated Marylou CARBAJAL Work Phone: [facility] 1997 hepatitis B vaccine, pediatric or pediatric/adolescent dosage Marylou CARBAJAL Work Phone: [facility] Payers Date Payer Category Payer Private Health Insurance [employer] [id number] 2023 Unknown [employer] [id number] 2023-Present [address] [place] [address] [id number]. [id number] 2023 Unknown [id number] 2.16.840.1.164662.19 1997 Unknown [id number] 2.16.840.1.453902.3.579.2. 593 1997 Unknown [id number] 2.16.840.1.548092.3.579.2. 593 1997 Unknown [id number] 2.16.840.1.057336.3.579.2. 593 1997 Unknown [id number] 2.16.840.1.732224.3.579.2. 593 1997 Unknown [id number] 2.16.840.1.254868.3.579.2. 593 1997 Unknown [id number] 2.16.840.1.079152.3.579.2. 593 1997 Unknown [id number] 2.16.840.1.982457.3.579.2. 593 1997 Unknown [id number] 2.16.840.1.504489.3.579.2. 593 1997 Unknown [id number] 2.16.840.1.266797.3.579.2. 593 1997 Unknown [id number] 2.16.840.1.428823.3.579.2. 593 1997 Unknown [id number] 2.16.840.1.565962.3.579.2. 593 1997 Unknown [id number] 2.16.840.1.618718.3.579.2. 593 1997 Unknown [id number] 2.16.840.1.666796.3.579.2. 593 1997 Unknown [id number] 2.16.840.1.258433.3.579.2. 593 1997 Unknown [id number] 2.16.840.1.604849.3.579.2. 593 1997 Unknown [id number] 2.16.840.1.270214.3.579.2. 593 1997 Unknown [id number] 2.16.840.1.919730.3.579.2. 593 1997 Unknown [id number] 2.16.840.1.411393.3.579.2. 593 1997 Unknown [id number] 2.16.840.1.082154.3.579.2. 593 1997 Unknown [id number] 2.16.840.1.815470.3.579.2. 593 1997 Unknown [id number] 2.16.840.1.888258.3.579.2. 593 1997 Unknown [id number] 2.16.840.1.421185.3.579.2. 593 1997 Unknown [id number] 2.16.840.1.210896.3.579.2. 593 1997 Unknown [id number] 2.16.840.1.489012.3.579.2. 1258 1997 Unknown [id number] 2.16.840.1.582333.3.579.2. 1258 1997 Unknown [id number] 2.16.840.1.550751.3.579.2. 1258 1997 Unknown [id number] 2.16.840.1.269109.3.579.2. 1258 1997 Unknown [id number] 2.16.840.1.048078.3.579.2. 1258 1997 Unknown [id number] 2.16.840.1.786918.3.579.2. 1258 1997 Unknown [id number] 2.16.840.1.922805.3.579.2. 1258 1997 Unknown [id number] 2.16.840.1.191163.3.579.2. 12581997 Unknown [id number] 2.16.840.1.390129.3.579.2. 9 1997 Unknown [id number] 2.16.840.1.506172.3.579.2. 9 1997 Unknown [id number] 2.16.840.1.027571.3.579.2. 1259 1957 Medicaid [id number] 2.16.840.1.139956.19 1959 Private Health Insurance [id number] 2.16.840.1.809589.19 Self-pay Self Pay [id number] Unknown [place] [id number] Social History Date Type Detail Facility Start: 08-02-2023 End: 11-25-2023 Sex Assigned At [facility] Other Start: 1995 Sex Assigned At Female [facility] Start: 08-02-2023 [facility] Start: 08-02-2023 Tobacco use and exposure Smokeless tobacco non-user [facility] Start: 07-21-2024 End: 09-01-2024 Alcoholic beverage intake Ex-drinker (finding) [facility] Start: 08-02-2023 End: 11-25-2023 History of Social function [facility] Start: 01-03-2024 [facility] Start: 1995 Sex assigned at Not on file [facility] Clinical Notes 12-21-2021 to 09-01-2024 Keena Broussard LPN - 09/01/2024 1:30 PM Shweta Mathew LPN - 08/18/2024 1:30 PM EDTKeena Broussard LPN - 08/18/2024 1:30 PM SOLOMON Tapia - 08/04/2024 1:20 PM EDT Note Date & Type Note Facility 09-01-2024 History of Presen t illness Narrative Reason for Appointment: Patient ID: Zelda Zepeda is a 29 y.o. female who presents for Routine Visit Patient presents today for Return OB appointment. MEDICATIONS Current Outpatient Medications Medication Instructions aspirin 81 mg, Daily cetirizine (ZYRTEC) 10 mg, Daily citalopram (CELEXA) 20 mg, Oral, Daily famotidine (PEPCID) 20 mg, Oral, Daily levothyroxine (SYNTHROID, LEVOXYL) 50 mcg, Daily before breakfast magnesium oxide (MAG-OX) 400 mg, Nightly Natural Vitamin D-3 5,000 Units, Daily ondansetron ODT (ZOFRAN-ODT) 4 mg, Oral, Every 6 hours PRN Sgphcfbj-Sjl-Bp-FA ( 1 + IRON PO) Take by mouth ALLERGIES No Known Allergies PROBLEMS Active Ambulatory [...] Date COLONOSCOPY 2018 [facility] OTHER SURGICAL HISTORY 2004 r/o third nipple/ adrianna removed REVIEW OF SYSTEMS Review of Systems: Review of Systems Constitutional: Negative. HENT: Negative. Eyes: Negative. Respiratory: Negative. Cardiovascular: Negative. Gastrointestinal: Negative. Genitourinary: Negative. Musculoskeletal: Negative. Skin: Negative. Neurological: Negative. All other systems reviewed and are negative. Hematological: Negative. Endocrine: Negative. Allergic/Immunologic: Negative. OBJECTIVE Objective: Physical Exam Constitutional: Appearance: Normal appearance. She is well-developed. Genitourinary: Vulva normal. Cardiovascular: Rate and Rhythm: Normal rate and [...] nursing note reviewed. Exam conducted with a sharepoint admin present. Vitals: Estimated body mass index is 44.25 kg/m as calculated from the following: Height as of 08/02/23: 5' 3 . Weight as of this encounter: 249 lb 12.8 oz. BP: 120/78 Patient's last menstrual period was 12/20/2023. ASSESSMENT & PLAN ICD-10-CM 1. 36 weeks gestation of Z3A.36 POCT urinalysis dipstick manually resulted 2. Third trimester Z34.93 POCT urinalysis dipstick manually resulted Strep B DNA probe, amplification Patient is doing well but has complaints of being tired and having maternal discomfort due to . Patient verbalized frequent movement and was instructed to perform kick counts three times per day. labor precautions were given, LARC consent was signed/declined, and GBS was obtained. Cervical check was performed and patient is 1.cm dilated. Orders Placed This Encounter Procedures Strep B DNA probe, amplification POCT urinalysis dipstick manually resulted Follow Up: Patient is to return to office in 1 week for routine OB appointment Documented by Keena Broussard LPN on behalf of: Agus Juárez DO documented in this encounter [facility] 08-18-2024 History of Presen t illness Narrative [...] before breakfast, Do not crush or chew. Xxifyfyb-Tzl-Lg-FA ( 1 + IRON PO) Oral ALLERGIES [...] nursing note reviewed. Exam conducted with a sharepoint admin present. Vitals: Estimated body mass index is [...] Agus Juárez DO documented in this encounter [facility] 08-04-2024 History of Presen t illness [...] before breakfast, Do not crush or chew. Jfgrevku-Agw-Qh-FA ( 1 + IRON PO) Oral ALLERGIES [...] of: SOLOMON Turner documented in this encounter [facility] 10-31-2023 Evaluation note Encounter Date Diagnosis [...] E28.2) She will continue to follow with OB-VETERINARY MEDICINE TEACHER and continue healthy lifestyle changes that she [...] course of antibiotic. Increase fluids and rest. Nlrz-jjc-[id number] antipyretics as needed. Warning signs and symptoms reviewed with patient today. Patient to go immediately to the ER should she experience any of these. Patient to notify office should her symptoms persist and not improve. Patient verbalizes understanding and agrees to treatment plan. [facility] Other 09-22-2023 Evaluation note* Encounter Date Diagnosis Assessment Notes Treatment Notes Treatment Clinical Notes Jun, Vitamin D insufficiency (ICD-10 - E55.9) [facility] Other 08-28-2023 Evaluation note* Encounter Date Diagnosis Assessment Notes Treatment Notes Treatment Clinical Notes May, Prediabetes (ICD-10 - R73.03) Recent lab work reviewed with her from [place]. In office hgba1c shows good control with diet and exercise. Will continue current treatment plan. Patient is advised to work on healthy diet choices and appropriate servings, weight control, regular exercise as directed, reduced fat intake, and salt avoidance. Patient voiced understanding of this and agrees to this plan. May, PCOS (polycystic ovarian syndrome) (ICD-10 - E28.2) She will continue to follow with OB-VETERINARY MEDICINE TEACHER and continue healthy lifestyle changes that she [...] ENT today. Specialty notes reviewed as received. [facility] Other 08-08-2023 Evaluation note* Encounter Date Diagnosis Assessment Notes Treatment Notes Treatment Clinical Notes May, Other atopic dermatitis (ICD-10 - L20.89) May, Acute otitis externa of both ears, unspecified type (ICD-10 - H60.503) [facility] Other 06-19-2023 Evaluation note* Encounter Date Diagnosis [...] no improvement in 2 to 3 days [facility] Other 06-15-2023 Evaluation note* Encounter Date Diagnosis Assessment Notes Treatment Notes Treatment Clinical Notes Mar, Anxiety (ICD-10 - F41.9) [facility] Other 04-27-2023 Evaluation note* Encounter Date Diagnosis [...] plan on rechecking this at May appointment. [facility] Other 03-10-2023 Evaluation note* Encounter Date Diagnosis Assessment Notes Treatment Notes Treatment Clinical Notes Dec, Bacterial conjunctivitis (ICD-10 - H10.9) [facility] Other 03-02-2023 Evaluation note* Encounter Date Diagnosis Assessment Notes Treatment Notes Treatment Clinical Notes Dec, Vitamin D insufficiency (ICD-10 - E55.9) Dec, Elevated alkaline phosphatase level (ICD-10 - R74.8) Dec, Other specified hypothyroidism (ICD-10 - E03.8) [facility] Other 02-27-2023 Evaluation note* Encounter Date Diagnosis [...] ordered. Follow routinely with eye doctor, dentist, VETERINARY MEDICINE TEACHER. Patient is advised to work on healthy diet choices and appropriate servings, weight control, regular exercise as directed, reduced fat intake, and salt avoidance. Patient voiced understanding of this and agrees to this plan. Nov, PCOS (polycystic ovarian syndrome) (ICD-10 - E28.2) Routine lab work ordered. She will continue to follow with OB-VETERINARY MEDICINE TEACHER and continue healthy lifestyle changes that she [...] homicidal ideations. Started on Celexa by her VETERINARY MEDICINE TEACHER. Very stable on Celexa 20 mg daily. [...] her ears still persist after starting this. [facility] Other 02-24-2022 Evaluation note* Encounter Date Diagnosis Assessment Notes Treatment Notes Treatment Clinical Notes Nov, Prediabetes (ICD-10 - R73.03) She was recently dx with prediabetes and was started on Metformin 500 mg BID 2 weeks ago by her OB-VETERINARY MEDICINE TEACHER. She would like to follow with our [...] - E28.2) She is following with her OB-VETERINARY MEDICINE TEACHER for her PCOS and is currently on Metformin 500 mg BID and is taking medication to help her get . She will continue to follow with OB-VETERINARY MEDICINE TEACHER and continue healthy lifestyle changes that she [...] of fatigue, difficulty losing weight by her OB-VETERINARY MEDICINE TEACHER. She would like to start following with [...] of this and agrees to this plan. [facility] Other Evaluation note* Diagnosis Onset Date Resolution Status 8 weeks gestation of acute Low back pain [facility] Work Phone: Evaluation note* Diagnosis 32 weeks gestation of Third trimester state, incidental Anxiety, generalized (CMS/HCC) [facility] Diagnosis 34 weeks gestation of Nausea and vomiting, unspecified vomiting type Gastroesophageal reflux disease, unspecified whether esophagitis present Heartburn during in third trimester documented [facility] this encounter [facility] Diagnosis 36 weeks gestation of Third trimester state, incidental documented in this encounter [facility] N[facility]ative - Reported* Type Description Date Medical History PCOS Medical History THYROID ISSUES Surgical History THIRD NIPPLE REMOVED Surgical History Colonoscopy-normal 2018 [facility] Other Summary Purpose Family History Relationship Condition [...] Right ear pain (H92. 01) Referral Organization [facility] Family Gonzales Hernandez Referring Provider First Name [...] 02/25/2023 The Dipika rangel DATE CREATED AUTHOR 'S ESMER FLORES 09/03/2024 [facility] Special[facility] EPIC Care Teams (unrecognized sec [...] February 13, 2024 End: February 13, 2024 Manager Of Change Relationship Specialty Start Date End Date Sandra Austin NP [address] [facility] [place] [address] PCP - General 07/19/23 Manager Of Change Relationship Specialty Start Date End Date Sandra Austin NP [address] [place] [address] PCP - General 07/19/23 Manager Of Change Relationship Specialty Start Date End Date Geovanna Sandra Hall CRYSTAL INSPECTOR [address] [place] [address] PCP General 07/19/23 Manager Of Change Relationship Specialty Start Date End Date Sandra Austin CRYSTAL INSPECTOR [address] [place] [address] [facility] 07/19/23 Manager Of Change Relationship Specialty Start Date End Date Sandra Austin NP [address] [place] [address] [facility] 07/19/23 Manager Of Change Relationship Specialty Start Date End Date Sandra Austin CRYSTAL INSPECTOR [address] [place] [address] [facility] 07/19/23 Goals (unrecognized section and content) Goals [...] BE BASED ON THE PRIMARY CLINICAL RECORDS. [facility] [employer] [facility]. provides no warranty or guarantee of the accuracy or completeness of information in this document.
[2024-09-05 07:38] VITALS: BP 129/77; PULSE 82
== END 2024-09-05 08:10 | disposition home or self-care (01) ==
LOC: FBCO 07:11 → FBC 07:33
PROVIDERS: Visit Provider Obstetrics & Gynecology
DX: O99.283 Endocrine, nutritional and metabolic diseases complicating pregnancy, third trimester (principal); Z3A.37 37 weeks gestation of pregnancy
CPT/HCPCS: 59025

== ENCOUNTER 2024-09-09 07:00 | Outpatient (OUT) | payer OTHER, SELFPAY ==
--- OUTSIDE RECORDS SUMMARY | 2024-09-09 07:03 | XMS_ITS | CCD ---
Author Organization [facility] Care Team Providers Care Medical Billing Associate Name Role Phone [facility]wardSohaSandra Unavailable KAP, SANDRA Primary Care Unavailable MARQUITA [...] Admitting Unavailable KAPLE, SANDRA Primary Care Unavailable MAQRUITA ., DR GOLDSMITH Attending Unavailable MARQUITA ., [...] GOLDSMITH Consulting Unavailable Yari Ramonita Unavailable Geovanna DRY CURE WORKER, Sandra Hall Primary Care Provider AGUS JUÁREZ [...] hours February 13, 2024 12:00am polymyxin b 34255 unt/ml / trimethoprim 1 mg/ml ophthalmic solution (3 sources) Dihydrofolate Reductase Inhibitor Antibacterial, Polymyxin-class Antibacterial Start: 01-04-2023 Polymyxin B-Trimethoprim 27356-5.1 UNIT/ML 1 drop into affected eye Ophthalmic every 3 hours up to six times daily for 7 days Dec, Active (10 sources) Active Kutasfpn-Jhh-Ac-FA ( 1 + IRON PO) (10 sources) Fvtwkeri-Nvz-Kq-FA ( 1 + IRON PO) Take by [...] acid 7540 MG / polyethylene glycol 3350 74094 MG / potassium chloride 1200 MG / sodium ascorbate 87574 MG / sodium chloride 3200 MG Powder for Oral Solution) / 1 (polyethylene glycol 3350 296406 MG / potassium chloride 1000 MG / [...] Negative - 4(70) +++ mg/dL [facility] Blood, UA Negative Negative - 50 Jose Manuel/mcL [facility] Healthcare Clarity, UA Clear [facility] Color, UA Yellow [facility] Health[facility] e Glucose, UA Negative Negative - 1999(110) ++++ mg/dL [facility] Interpretation and review of laboratory results Abnormal [facility] Ketones, UA Negative Negative - 160(16) ++++ mg/dL [facility] Leukocytes, UA Trace Negative - 500+++ Alexys/mcL [facility] Nitrite, UA Negative Negative - Positive [facility] pH, UA 7 5 - 9 [facility] Protein, UA Negative Negative - 1999(20) ++++ mg/dL [facility] Spec Grav, UA 1.015 1 - 1.03 [facility] Urobilinogen, UA 0.2 0.2 - 12 mg/dL [facility] THYROID STIM HORMONEon 1 10-29-2023 TSH Qn 0.716 m[IU]/L [facility] Urinalysis macro (dipstick) panel (U)on 08-18-2024 Bilirubin, UA Negative Negative - 4(70) +++ mg/dL [facility] Blood, UA Negative Negative - 50 Jose Manuel/mcL [facility] Healthcare Clarity, UA Clear [facility] Healthca re Color, UA Yellow [facility] Glucose, UA Negative Negative - 1999(110) ++++ mg/dL [facility] Interpretation and review of laboratory results Normal [facility] Ketones, UA Negative Negative - 160(16) ++++ mg/dL [facility] Leukocytes, UA Negative Negative - 500+++ Alexys/mcL [facility] Healthcare Nitrite, UA Negative Negative - Positive [facility] pH, UA 6.5 5 - 9 [facility] Protein, UA Negative Negative - 1999(20) ++++ mg/dL [facility] Spec Grav, UA 1.01 1 - 1.03 [facility] Urobilinogen, UA 0.2 0.2 - 12 mg/dL [facility] macro (dipstick) panel (U)on 08-04-2024 Bilirubin, UA Negative Negative - 4(70) +++ mg/dL [facility] Blood, UA Negative Negative - 50 Jose Manuel/mcL [facility]arity, [facility]A Yellow [facility] Glucose, UA Negative Negative - 1999(110) ++++ mg/dL [facility] Interpretation and review of laboratory results Abnormal [facility] Ketones, UA Negative Negative - 160(16) ++++ mg/dL [facility] Leukocytes, UA Trace Negative - 500+++ Alexys/mcL [facility] Nitrite, UA Negative Negative - Positive [facility] pH, UA 7.0 5 - 9 [facility] e Protein, UA Negative Negative - 1999(20) ++++ mg/dL [facility] Spec Grav, UA 1.015 1 - 1.03 [facility] Urobilinogen, UA 0.2 0.2 - 12 mg/dL [facility] Human papilloma virus 16+18+ 31+33+35+39+45+51+52+56+58+59+66+68 DNA [Presence] in Anders 12-16-2023 HPV 16+18+31+33+35+39+45 +51+52+56+58+59+66+6 8 DNA Probe+sig amp Ql (Cvx) Note . [facility] Comment on above: TESTS RESULT FLAG UN ITS REF RANGE LAB DI AGNOSIS: 02 NEGATIVE FOR INTRAEPITHELIAL LESION OR MALIGNANCY.Specimen adequacy: 02 Satisfactory for evaluation. Endocervical and/or squamous metaplastic cells (endocervical component) are present.Performed by: 02 Raeann Duran, Registered Art Therapist (ASCP). 02Note: Note 02 The Pap smear is a screening test designed to aid in the detection of premalignant and malignant conditions of the uterine cervix. It is not a diagnostic procedure and should not be used as the sole means of detecting cervical cancer. Both false-positive and false-negative reports do occur.Test Methodology: Note 02 The [employer](R) Manager Of Program was unable to read this specimen. Therefore a manual review was performed. ----- FLAG LEGEND: L-Low Normal,H-High Normal,LL-Alert Low,HH-Alert High <-Panic Low,>-Panic High,A-Abnormal,AA-Critical Abnormal ---Performed at:[address] [id number] Heavenly Serrano MD, . 02 The HPV DNA reflex criteria were not met with this specimen result therefore, no HPV testing was performed.The HPV DNA reflex criteria were not met with this specimenresult therefore, no HPV testing was performed.Performed at: =[facility] [id number] Director: Heavenly Serrano MD, Phone: [phone] at: [address] [id number] Director: Heavenly Serrano MD, Phone: [phone] No Panel Informationon 12-16 Reference Lab Test Patient Age Note . [facility] Comment on above: TESTS RESULT FLAG UN ITS REF RANGE LAB Clinician Provided Cytology Information Source.............Cervix No. of containers..01 ThinPrep VialAge Niruo DELORIS Leslye... FLAG LEGEND: L-Low Normal,H-High Normal,LL-Alert Low,HH-Alert High <-Panic Low,>-Panic High,A-Abnormal,AA-Critical Abnormal ---Performed at:01 =[facility] [id number] Heavenly Serrano MD, A1C HEMOGLOBINon 10-31-2023 HbA1c (Bld) [Mass fraction] 5.8 % [employer] Other HbA1c (Bld) [Mass fraction]o n 10-31-2023 A1C HEMOGLOBIN [employer] Other A1C HEMOGLOBINon 06-24-2023 HbA1c (Bld) [Mass fraction] 5.2 % [employer] Other HbA1c (Bld) [Mass fraction]o n 06-24-2023 A1C HEMOGLOBIN [employer] Other Quick Strepon 04-15-2023 S. pyogenes Org specific cx Ql (Throat) Positive [employer] Other Quick Strep [employer] Other FREE T4on 02-21-2023 Free T4 [Mass/Vol] 0.89 ng/dL Normal 0.76-1.46 [facility] Comment on above: Performed By: #### H H #### [facility] [address] [place] [id number] [address] Bella Jerome PROF 14(COMP METB)on 023 Albumin [Mass/Vol] 3.7 g/dL Normal 3.4-5.0 [facility] Comment on above: Performed By: #### H H #### [facility] [address] [place] [address] Dr. Bella Jerome Albumin/Globulin [Mass ratio] 0.9 {ratio} Normal [facility] Comment on above: Performed By: #### H H #### [facility] [address] [place] [address] Dr. Bella Jerome ALP [Catalytic activity/Vol] 132 U/L Critically high 46-116 [facility] Comment on above: Performed By: #### H H #### [facility] [address] [place] [address] Dr. Bella Jerome ALT [Catalytic activity/Vol] 32 U/L Normal 14-59 [facility] Comment on above: Performed By: #### H H #### [facility] [address] [place] [address] Dr. Bella Jerome Anion gap [Moles/Vol] 12.8 mmol/L Normal [facility] Comment on above: Performed By: #### H H #### [facility] [address] [place] [address] Dr. Bella Jerome AST [Catalytic activity/Vol] 23 U/L Normal 15-37 [facility] Comment on above: Performed By: #### H H #### [facility] [address] [place] [address] Dr. Bella Jerome Bilirubin [Mass/Vol] 0.6 mg/dL Normal 0.2-1.0 [facility] Comment on above: Performed By: #### H H #### [facility] [address] [place] [address] Dr. Bella Jerome Calcium [Mass/Vol] 9.0 mg/dL Normal 8.5-10.1 [facility] Comment on above: Performed By: #### H H #### [facility] [address] [place] [address] Dr. Bella Jerome Chloride [Moles/Vol] 102 mmol/L Normal 98-107 [facility] Comment on above: Performed By: #### H H #### [facility] [address] [place] [address] Dr. Bella Jerome CO2 [Moles/Vol] 28.2 mmol/L Normal 21.0-32.0 [facility] Comment on above: Performed By: #### H H #### [facility] [address] [place] [address] Dr. Bella Jerome Creatinine [Mass/Vol] 0.67 mg/dL Normal 0.55-1.02 [facility] Comment on above: Performed By: #### H H #### [facility] [address] [place] [address] Dr. Bella Jerome EGFR-AF SYRIAN >60 Normal >=60 [facility] Comment on above: Performed By: #### H H #### [facility] [address] [place] [address] Dr. Bella Jerome EGFR-NON AF SYRIAN >60 Normal >=60 [facility] Comment on above: Performed By: #### H H #### [facility] [address] [place] [address] Dr. Bella Jerome Globulin (S) [Mass/Vol] 4.2 g/dL Normal [facility] Comment on above: Performed By: #### H H #### [facility] [address] [place] [address] Dr. Bella Jerome Glucose [Mass/Vol] 88 mg/dL Normal 74-106 [facility] Comment on above: Performed By: #### H H #### [facility] [address] [place] [address] Dr. Bella Jerome Potassium [Moles/Vol] 4.0 mmol/L Normal 3.5-5.1 [facility] Comment on above: Performed By: #### H H #### [facility] [address] [place] [address] Dr. Bella Jerome Protein [Mass/Vol] 7.9 g/dL Normal 6.4-8.2 [facility] Comment on above: Performed By: #### H H #### [facility] [address] [place] [address] Dr. Bella Jerome Sodium [Moles/Vol] 139 mmol/L Normal 136-145 [facility] Comment on above: Performed By: #### H H #### [facility] [address] [place] [address] Dr. Bella Jerome Urea nitrogen [Mass/Vol] 12.0 mg/dL Normal 7.0-18.0 [facility] Comment on above: Performed By: #### H H #### [facility] [address] [place] [address] Dr. Bella Jerome Urea nitrogen/Creatinine [Mass ratio] 17.9 mg/mg Normal [facility] Comment on above: Performed By: #### H H #### [facility] [address] [place] [address] Dr. Bella Jerome TSHon 02-21-2023 TSH 2.463 uIU/mL Normal 0.358-3.740 [facility] Comment on above: Performed By: #### H H #### [facility] [address] [place] [address] Dr. Bella Jerome VITAMIN D 25 OHon 02-21-2023 VIT D 25-OH 23.1 ng/mL Normal [facility] Comment on above: Performed By: #### H H #### [facility] [address] [place] [address] Dr. Bella Jerome VIT D RANGES SEE BELOW Normal [facility] Comment on above: Result Comment: <20 ng/mL Vit D deficient 20 - <30 ng/mL Vit D insufficient 30 - 100 ng/mL Vit D sufficient >100 ng/mL Potential Toxicity Performed By: #### H H #### [facility] [address] [place] [address] Dr. Bella Jerome CBC AUTO DIFFon 12-26-2022 BASO # 0.0 103/ul Normal 0.0-0.1 [facility] Comment on above: Performed By: #### C BC #### [facility] [address] [place] [address] Dr. Bella Jerome Basophils/100 WBC (Bld) 0.3 % Normal 0.2-2.0 [facility] Comment on above: Performed By: #### C BC #### [facility] [address] [place] [address] Dr. Bella Jerome EO # 0.1 103/ul Normal 0.0-0.7 [facility] Comment on above: Performed By: #### C BC #### [facility] [address] [place] [address] Dr. Bella Jerome Eosinophils/100 WBC (Bld) 1.6 % Normal 0.9-7.0 [facility] Comment on above: Performed By: #### C BC #### [facility] [address] [place] [address] Dr. Bella Jerome Erythrocyte distribution width (RBC) [Ratio] 12.7 % Normal 11.0-15.0 [facility] Comment on above: Performed By: #### C BC #### [facility] [address] [place] [address] Dr. Bella Jerome Hematocrit (Bld) [Volume fraction] 37.2 % Normal 36.0-48.0 [facility] Comment on above: Performed By: #### C BC #### [facility] [address] [place] [address] Dr. Bella Jerome Hemoglobin (Bld) [Mass/Vol] 12.5 g/dL Normal 12.0-16.0 [facility] Comment on above: Performed By: #### C BC #### [facility] [address] [place] [address] Dr. Bella Jerome IG # 0.02 10e3/ul Normal 0.00-0.03 [facility] Comment on above: Performed By: #### C BC #### [facility] [address] [place] [address] Dr. Bella Jerome IG % 0.3 % Normal 0.0-0.5 [facility] Comment on above: Performed By: #### C BC #### [facility] [address] [place] [address] Dr. Bella Jerome LYMPH # 2.3 103/ul Normal 1.2-3.8 [facility] Comment on above: Performed By: #### C BC #### [facility] [address] [place] [address] Dr. Bella Jerome Lymphocytes/100 WBC (Bld) 34.1 % Normal 20.5-60.0 [facility] Comment on above: Performed By: #### C BC #### [facility] [address] [place] [address] Dr. Bella Jerome MANUAL DIFF REQ NO Normal [facility] Comment on above: Performed By: #### C BC #### [facility] [address] [place] [address] Dr. Bella Jerome MCH (RBC) [Entitic mass] 30.9 pg Normal 26.7-34.0 [facility] Comment on above: Performed By: #### C BC #### [facility] [address] [place] [address] Dr. Bella Jerome MCHC (RBC) [Mass/Vol] 33.6 g/dL Normal 29.9-35.2 [facility] Comment on above: Performed By: #### C BC #### [facility] [address] [place] [address] Dr. Bella Jerome MCV (RBC) [Entitic vol] 91.9 fL Normal 81.0-99.0 [facility] Comment on above: Performed By: #### C BC #### [facility] [address] [place] [address] Dr. Bella Jerome MONO # 0.4 103/ul Normal 0.3-0.8 [facility] Comment on above: Performed By: #### C BC #### [facility] [address] [place] [address] Dr. Bella Jerome Monocytes/100 WBC (Bld) 5.1 % Normal 1.7-12.0 [facility] Comment on above: Performed By: #### C BC #### [facility] [address] [place] [address] Dr. Bella Jerome NEUT # 4.0 103/ul Normal 1.4-6.5 [facility] Comment on above: Performed By: #### C BC #### [facility] [address] [place] [address] Dr. Bella Jerome Neutrophils/100 WBC (Bld) 58.6 % Normal 43.0-75.0 [facility] Comment on above: Performed By: #### C BC #### [facility] [address] [address] [address] Bella Jerome Platelet mean volume (Bld) [Entitic vol] 11.5 fL Normal 9.5-13.5 [facility] Comment on above: Performed By: #### C BC #### [facility] [address] [address] [address] Bella Jerome PLT 243 103/ul Normal 150-450 [facility] Comment on above: Performed By: #### C BC #### [facility] [address] [address] [address] Bella Jerome RBC 4.05 106/ul Critically low 4.20-5.40 [facility] Comment on above: Performed By: #### C BC #### [facility] [address] [address] [address] Bella Jerome WBC 6.8 103/ul Normal 4.0-11.0 [facility] Comment on above: Performed By: #### C BC #### [facility] [address] [address] [address] Bella Jerome FREE T4on 12-26-2022 Free T4 [Mass/Vol] 1.05 ng/dL Normal 0.76-1.46 [facility] Comment on above: Performed By: #### F T4, VITAD, B12FOL, IRON ####[facility] [id number] [id number] Bella Jerome GLYCOHEMOGLOBIN A1Con 2022 ADA RECOMMENDATION SEE BELOW Normal [facility] Comment on above: Result Comment: ADA RECOMMENDED LIMIT 4.0 - 6.0 ADA THERAPEUTIC TARGET < 7.0 ACTION SUGGESTED > 7.0 Performed By: #### A 1C #### [facility] [address] [address] [address] Bella Jerome Glucose [Mass/Vol] 103 mg/dL Normal [facility] Comment on above: Performed By: #### A 1C #### [facility] [address] [address] [address] Bella Jerome HbA1c (Bld) [Mass fraction] 5.2 % Normal 4.5-6.2 [facility] Comment on above: Performed By: #### A 1C #### [facility] [address] [address] [address] Bella Jerome IRONon 12-26-2022 Iron [Mass/Vol] 74.0 ug/dL Normal 50.0-170.0 [facility] Comment on above: Performed By: #### F T4, VITAD, B12FOL, IRON ####[facility] [id number] [place], [place] [id number]. Bella Jerome LIPID PROFILEon 12-26-2022 CHOL-HDL RATIO NORM SEE BELOW Normal [facility] Comment on above: Result Comment: 3.3 - 4.4 LOW RISK 4.4 - 7.1 AVERAGE RISK 7.1 - 11.0 MODERATE RISK >11.0 HIGH RISK Performed By: #### C MP, TSH, LIPID #### [facility] [address] [address] [address] Bella Jerome Cholesterol [Mass/Vol] 153 mg/dL Normal <=200 [facility] Comment on above: Performed By: #### C MP, TSH, LIPID #### [facility] [address] [address] [address] Bella Jerome Cholesterol in HDL [Mass/Vol] 67 mg/dL Critically high 40-60 [facility] Comment on above: Performed By: #### C MP, TSH, LIPID #### [facility] [address] [address] [address] Bella Jerome Cholesterol in LDL [Mass/Vol] 77.2 mg/dL Normal [facility] Comment on above: Performed By: #### C MP, TSH, LIPID #### [facility] [address] [address] [address] Bella Jerome Cholesterol.total/Ch olesterol in HDL [Mass ratio] 2.3 {ratio} Normal [facility] Comment on above: Performed By: #### C MP, TSH, LIPID #### [facility] [address] [address] [address] Bella Jerome HDL NORMAL > or = 60 mg/dl - LOW CARDIOVASCULAR RISK <40 mg/dl - HIGH CARDIOVASCULAR RISK Normal [facility] Comment on above: Performed By: #### C MP, TSH, LIPID #### [facility] [address] [address] [address] Bella Jerome LDL CALC NORMAL SEE BELOW Normal [facility] Comment on above: Result Comment: <100 mg/dl OPTIMAL 100 - 129 mg/dl NEAR OR ABOVE OPTIMAL 130 - 159 mg/dl BORDERLINE HIGH 160 - 189 mg/dl HIGH >190 mg/dl VERY HIGH Performed By: #### C MP, TSH, LIPID #### [facility] [address] [address] [address] Bella Jerome Triglyceride [Mass/Vol] 44 mg/dL Normal <=150 [facility] Comment on above: Performed By: #### C MP, TSH, LIPID #### [facility] [address] [address] [address] Bella Jerome VLDL CALC 8.8 mg/dL Normal [facility] Comment on above: Performed By: #### C MP, TSH, LIPID #### [facility] [address] [address] [address] Bella Jerome MICROALB CREAT RATIO RANDOMo n 12-26-2022 mALB 2.3 mg/L Normal <=30.0 [facility] Comment on above: Performed By: #### H H #### [facility] [address] [address] [address] Bella Jerome MALB CR RATIO 17.4 mg/g Normal 0.0-29.9 [facility] Comment on above: Performed By: #### H H #### [facility] [address] [address] [address] Bella Jerome MALB CR RATIO RANGE SEE BELOW Normal [facility] Comment on above: Result Comment: NO M ICROALBUMINURIA 0-29 MG/G CLINICAL MICROALBUMINURIA 30-300 MG/G MACROALBUMINURIA >300 MG/G Performed By: #### H H #### [facility] [address] [address] [address] Bella Jerome URINE CREAT 131.90 mg/dL Normal 20.00-300.00 [facility] [place] Comment on above: Performed By: #### H H #### [facility] [address] [address] [address] Bella Jerome PROF 14(COMP METB)on 023 Albumin [Mass/Vol] 4.1 g/dL Normal 3.4-5.0 [facility] Comment on above: Performed By: #### C MP, TSH, LIPID #### [facility] [address] [address] [address] Bella Jerome Albumin/Globulin [Mass ratio] 1.3 {ratio} Normal [facility] Comment on above: Performed By: #### C MP, TSH, LIPID #### [facility] [address] [place] [address] Dr. Bella Jerome ALP [Catalytic activity/Vol] 124 U/L Critically high 46-116 [facility] Comment on above: Performed By: #### C MP, TSH, LIPID #### [facility] [address] [address] [address] Bella Jerome ALT [Catalytic activity/Vol] 16 U/L Normal 14-59 [facility] Comment on above: Performed By: #### C MP, TSH, LIPID #### [facility] [address] [address] [address] Bella Jerome Anion gap [Moles/Vol] 13.4 mmol/L Normal [facility] Comment on above: Performed By: #### C MP, TSH, LIPID #### [facility] [address] [address] [address] Bella Jerome AST [Catalytic activity/Vol] 17 U/L Normal 15-37 [facility] Comment on above: Performed By: #### C MP, TSH, LIPID #### [facility] [address] [address] [address] Bella Jerome Bilirubin [Mass/Vol] 0.8 mg/dL Normal 0.2-1.0 [facility] Comment on above: Performed By: #### C MP, TSH, LIPID #### [facility] [address] [address] [address] Bella Jerome Calcium [Mass/Vol] 8.9 mg/dL Normal 8.5-10.1 [facility] Comment on above: Performed By: #### C MP, TSH, LIPID #### [facility] [address] [address] [address] Bella Jerome Chloride [Moles/Vol] 103 mmol/L Normal 98-107 [facility] Comment on above: Performed By: #### C MP, TSH, LIPID #### [facility] [address] [address] [address] Bella Jerome CO2 [Moles/Vol] 25.6 mmol/L Normal 21.0-32.0 [facility] Comment on above: Performed By: #### C MP, TSH, LIPID #### [facility] [address] [address] [address] Bella Jerome Creatinine [Mass/Vol] 0.55 mg/dL Normal 0.55-1.02 [facility] Comment on above: Performed By: #### C MP, TSH, LIPID #### [facility] [address] [place] [address] Dr. Bella Jerome EGFR-AF SYRIAN >60 Normal >=60 [facility] Comment on above: Performed By: #### C MP, TSH, LIPID #### [facility] [address] [address] [address] Bella Jerome EGFR-NON AF SYRIAN >60 Normal >=60 [facility] Comment on above: Performed By: #### C MP, TSH, LIPID #### [facility] [address] [address] [address] Bella Jerome Globulin (S) [Mass/Vol] 3.1 g/dL Normal [facility] Comment on above: Performed By: #### C MP, TSH, LIPID #### [facility] [address] [place] [address] Dr. Bella Jerome Glucose [Mass/Vol] 82 mg/dL Normal 74-106 [facility] Comment on above: Performed By: #### C MP, TSH, LIPID #### [facility] [address] [place] [address] Dr. Bella Jerome Potassium [Moles/Vol] 4.0 mmol/L Normal 3.5-5.1 [facility] Comment on above: Performed By: #### C MP, TSH, LIPID #### [facility] [address] [place] [address] Dr. Bella Jerome Protein [Mass/Vol] 7.2 g/dL Normal 6.4-8.2 [facility] Comment on above: Performed By: #### C MP, TSH, LIPID #### [facility] [address] [place] [address] Dr. Bella Jerome Sodium [Moles/Vol] 138 mmol/L Normal 136-145 [facility] Comment on above: Performed By: #### C MP, TSH, LIPID #### [facility] [address] [place] [address] Dr. Bella Jerome Urea nitrogen [Mass/Vol] 14.0 mg/dL Normal 7.0-18.0 [facility] Comment on above: Performed By: #### C MP, TSH, LIPID #### [facility] [address] [place] [address] Dr. Bella Jerome Urea nitrogen/Creatinine [Mass ratio] 25.5 mg/mg Normal [facility] Comment on above: Performed By: #### C MP, TSH, LIPID #### [facility] [address] [place] [address] Dr. Bella Jerome TSHon 12-26-2022 TSH 0.224 uIU/mL Critically low 0.358-3.740 [facility] Comment on above: Performed By: #### C MP, TSH, LIPID #### [facility] [address] [place] [address] Dr. Bella Jerome VIT B12 AND FOLATEon 023 Cobalamin (Vitamin B12) [Mass/Vol] 702.0 pg/mL Normal 193.0-986.0 [facility] Comment on above: Performed By: #### F T4, VITAD, B12FOL, IRON ####[facility] [address] [id number] Jerome FOLATE 25.10 ng/mL Normal 8.60-58.90 [facility] Comment on above: Performed By: #### F T4, VITAD, B12FOL, IRON ####[facility] [address] [phone] Jerome VITAMIN D 25 OHon 12-26-2022 VIT D 25-OH 25.4 ng/mL Normal [facility] Comment on above: Performed By: #### F T4, VITAD, B12FOL, IRON ####[facility] [address] [address]DrWill Jerome VIT D RANGES SEE BELOW [facility] Comment on above: Result Comment: <20 ng/mL Vit D deficient 20 - <30 ng/mL Vit D insufficient 30 - 100 ng/mL Vit D sufficient >100 ng/mL Potential Toxicity Performed By: #### F T4, VITAD, B12FOL, IRON ####[facility] [address] [address]DrWill Jerome PAP ACOG PANEL 2: 23 to 31on 12-18-2022 . . Normal [facility] Comment on above: Performed By: #### C BC #### [facility] [address] [place] [address] Dr. Bella Jerome Age Gdln ACOG Testing - Normal [facility] Comment on above: Performed By: #### C BC #### [facility] [address] [place] [address] Dr. Bella Jerome DIAGNOSIS: Comment Normal [facility] Comment on above: Result Comment: NEGA TIVE FOR INTRAEPITHELIAL LESION OR MALIGNANCY. Performed By: #### C BC #### [facility] [address] [place] [address] Dr. Bella Jerome Methodology: Comment Normal [facility] Comment on above: Result Comment: This liquid based ThinPrep(R) pap test was screened with the use of an image guided system. Performed By: #### C BC #### [facility] [address] [address] [address] Bella Jerome Note: Comment Normal [facility] Comment [...] . Performed By: #### C BC #### [facility] [address] [address] [address] Bella Jerome Performed by: Comment Normal [facility] Comment on above: Result Comment: Byron Irby, Registered Art Therapist (ASCP) Performed By: #### C BC #### [facility] [address] [place] [address] Dr. Bella Jerome Reflex Criteria: Comment Normal [facility] Comment on above: Result Comment: The HPV DNA reflex criteria were not met with this specimen result therefore, no HPV testing was performed. . Performed By: #### C BC #### [facility] [address] [place] [address] Dr. Bella Jerome Specimen adequacy: Comment Normal [facility] Comment on above: Result Comment: Sati sfactory for evaluation. Endocervical and/or squamous metaplastic cells (endocervical component) are present. Performed By: #### C BC #### [facility] [address] [place] [address] Dr. Bella Jerome CBC W MANUAL DIFFon 09-07-20 22 ATYPICAL LYMPH # Normal [facility] Comment on above: Performed By: #### C BCMAN ####[facility] [address] [address]Dr. Bella Jerome ATYPICAL LYMPH % Normal [facility] Comment on above: Performed By: #### C BCMAN ####[facility] [address] [address]Dr. Bella Jerome BAND # 0.2 103/ul Normal 0.0-0.3 [facility] Comment on above: Performed By: #### C BCMAN ####[facility] [address] [address]Dr. Bella Jerome BAND % 1 % Normal 0-5 [facility] Comment on above: Performed By: #### C BCMAN ####[facility] [address] [address]Dr. Bella Jerome BASOM # 0.00 103/ul Normal 0.00-0.10 [facility] Comment on above: Performed By: #### C BCMAN ####[facility] [address] [address]Dr. Bella Jerome BASOM % 0.0 % Critically low 0.2-2.[address] [facility] Comment on above: Performed By: #### C BCMAN ####[facility] [address] [place], [place] [address]Dr. Bella Jerome BLAST # Normal [facility] Comment on above: Performed By: #### C BCRELL ####[facility] [address] [place], [place] [address]Dr. Yiwally Jerome BLAST % Normal [facility] Comment on above: Performed By: #### C BCRELL ####[facility] [address] [place], [place] [address]Dr. Bella Jerome CORRECTED WBC Normal 4.0-11.0 [facility] Comment on above: Performed By: #### C BCRELL ####[facility] [address] [place], [place] [address]Dr. Bella Jerome EOS # 0.00 103/ul Normal 0.00-0.70 [facility] Comment on above: Performed By: #### C BCRELL ####[facility] [address] [address]Dr. Bella Jerome EOS% 0.0 % Critically low 0.9-7.[address] [facility] Comment on above: Performed By: #### C BCMAN ####[facility] [address] [address]Dr. Bella Jerome HCT 30.5 % Critically low 36.0-48.[address] [facility] Comment on above: Performed By: #### C BCMAN ####[facility] [address] [place], [place] [address]Gr. Bella Jerome HGB 10.5 g/dl Critically low 12.0-16.0 [facility] Comment on above: Performed By: #### C PEDRO ####[facility] [address] [place], [place] [address]Yo. Bella Jerome LYMPHM # 2.78 103/ul Normal 1.20-3.80 [facility] Comment on above: Performed By: #### C PEDRO ####[facility] [address] [place], [place] [address]Px. Bella Jerome LYMPHM% 13.0 % Critically low 20.5-60.0 [facility] Comment on above: Performed By: #### C PEDRO ####[facility] [address] [place], [place] [address]Ni. Bella Jerome MCH 32.8 pg Normal 26.7-34.0 [facility] Comment on above: Performed By: #### Jennifer VASQUEZ ####[facility] [address] [phone]. Bella Jerome MCHC 34.4 g/dl Normal 29.9-35.2 [facility] Comment on above: Performed By: #### C PEDRO ####[facility] [address] [place], [place] [address]Jp. Bella Jerome MCV 95.3 fL Normal 81.0-99.0 [facility] Comment on above: Performed By: #### Jennifer VASQUEZ ####[facility] [address] [place], [place] [address]Dc. Bella Jerome METAMYELOCYTE # Normal [facility] [place] Comment on above: Performed By: #### C PEDRO ####[facility] [address] [place], [place] [address]Qk. Bella Jerome METAMYELOCYTE % Normal [facility] [place] Comment on above: Performed By: #### Jennifer VASQUEZ ####[facility] [address] [phone]. Bella Jerome MONOM# 2.35 103/ul Critically high 0.30-0.80 [facility] Comment on above: Performed By: #### C PEDRO ####[facility] [address] [phone]. Bella Justus MONOM% 11.0 % Normal 1.7-12.0 [facility] Comment on above: Performed By: #### C PEDRO ####[facility] [address] [phone]. Bella Justus MPV 11.1 fL Normal 9.5-13.5 [facility] Comment on above: Performed By: #### C PEDRO ####[facility] [address] [address]Dr. Bella Justus MYELOCYTE # Normal [facility] Comment on above: Performed By: #### C PEDRO ####[facility] [address] [phone]. Bella Jerome MYELOCYTE % Normal [facility] Comment on above: Performed By: #### C PEDRO ####[facility] [address] [phone]. Bella Justus NRBC Normal [facility] Comment on above: Performed By: #### C PEDRO ####[facility] [address] [phone]. Liwally Justus PLT 227 103/ul Normal 150-450 [facility] Comment on above: Performed By: #### C PEDRO ####[facility] [address] [phone]. Bella Jerome RBC 3.20 106/ul Critically low 4.20-5.40 [facility] Comment on above: Performed By: #### C PEDRO ####[facility] [address] [place], [place] [id number]. Liwally Justus RDW 12.8 % Normal 11.0-15.0 [facility] Comment on above: Performed By: #### C PEDRO ####[facility] [address] [place], [place] [address]Dr. Bella Jerome SEG # 16.05 103/ul Critically high 1.40-6.50 [facility] Comment on above: Performed By: #### C BCMAN ####[facility] [address] [address]Dr. Bella Jerome SEG % 75.0 % Normal 43.0-75.0 [facility] Comment on above: Performed By: #### C BCMAN ####[facility] [address] [address]Dr. Bella Jerome WBC 21.4 103/ul Critically high 4.0-11.0 [facility] Comment on above: Performed By: #### C BCMAN ####[facility] [address] [address]Dr. Bella Jerome CBC AUTO DIFFon 09-05-2022 BASO # 0.0 103/ul Normal 0.0-0.1 [facility] Comment on above: Performed By: #### C BC #### [facility] [address] [place] [address] Dr. Bella Jerome Basophils/100 WBC (Bld) 0.2 % Normal 0.2-2.0 [facility] Comment on above: Performed By: #### C BC #### [facility] [address] [place] [address] Dr. Bella Jerome EO # 0.1 103/ul Normal 0.0-0.7 [facility] Comment on above: Performed By: #### C BC #### [facility] [address] [place] [address] Dr. Bella Jerome Eosinophils/100 WBC (Bld) 0.6 % Critically low 0.9-7.0 [facility] Comment on above: Performed By: #### C BC #### [facility] [address] [place] [address] Dr. Bella Jerome Erythrocyte distribution width (RBC) [Ratio] 12.6 % Normal 11.0-15.0 [facility] Comment on above: Performed By: #### C BC #### [facility] [address] [place] [address] Dr. Bella Jerome Hematocrit (Bld) [Volume fraction] 32.5 % Critically low 36.0-48.0 [facility] Comment on above: Performed By: #### C BC #### [facility] [address] [place] [address] Dr. Bella Jerome Hemoglobin (Bld) [Mass/Vol] 11.1 g/dL Critically low 12.0-16.0 [facility] Comment on above: Performed By: #### C BC #### [facility] [address] [address] [address] Bella Jerome IG # 0.14 10e3/ul Critically high 0.00-0.03 [facility] Comment on above: Performed By: #### C BC #### [facility] [address] [place] [address] Dr. Bella Jerome IG % 1.1 % Critically high 0.0-0.5 [facility] Comment on above: Performed By: #### C BC #### [facility] [address] [place] [address] Dr. Bella Jerome LYMPH # 2.6 103/ul Normal 1.2-3.8 [facility] Comment on above: Performed By: #### C BC #### [facility] [address] [place] [address] Dr. Bella Jerome Lymphocytes/100 WBC (Bld) 20.2 % Critically low 20.5-60.0 [facility] Comment on above: Performed By: #### C BC #### [facility] [address] [place] [address] Dr. Bella Jerome MANUAL DIFF REQ NO Normal [facility] [place] Comment on above: Performed By: #### C BC #### [facility] [address] [address] [address] Bella Jerome MCH (RBC) [Entitic mass] 32.2 pg Normal 26.7-34.0 [facility] Comment on above: Performed By: #### C BC #### [facility] [address] [place] [address] Dr. Bella Jerome MCHC (RBC) [Mass/Vol] 34.2 g/dL Normal 29.9-35.2 [facility] Comment on above: Performed By: #### C BC #### [facility] [address] [place] [address] Dr. Bella Jerome MCV (RBC) [Entitic vol] 94.2 fL Normal 81.0-99.0 [facility] Comment on above: Performed By: #### C BC #### [facility] [address] [place] [address] Dr. Bella Jerome MONO # 0.9 103/ul Critically high 0.3-0.8 [facility] [place] Comment on above: Performed By: #### C BC #### [facility] [address] [place] [address] Dr. Bella Jerome Monocytes/100 WBC (Bld) 7.1 % Normal 1.7-12.0 [facility] Comment on above: Performed By: #### C BC #### [facility] [address] [place] [address] Dr. Bella Jerome NEUT # 8.9 103/ul Critically high 1.4-6.5 [facility] [place] Comment on above: Performed By: #### C BC #### [facility] [address] [place] [address] Dr. Bella Jerome Neutrophils/100 WBC (Bld) 70.8 % Normal 43.0-75.0 [facility] Comment on above: Performed By: #### C BC #### [facility] [address] [place] [address] Dr. Bella Jerome Platelet mean volume (Bld) [Entitic vol] 11.0 fL Normal 9.5-13.5 [facility] Comment on above: Performed By: #### C BC #### [facility] [address] [place] [address] Dr. Bella Jerome PLT 234 103/ul Normal 150-450 [facility] Comment on above: Performed By: #### C BC #### [facility] [address] [place] [address] Dr. Bella Jerome RBC 3.45 106/ul Critically low 4.20-5.40 [facility] [place] Comment on above: Performed By: #### C BC #### [facility] [address] [place], [place] [address] Dr. Bella Jerome WBC 12.6 103/ul Critically high 4.0-11.0 [facility] Comment on above: Performed By: #### C BC #### [facility] [address] [place], [place] [address] Dr. Bella Jerome Covid-19 PCR ([facility])on SARS-CoV-2 (COVID-19) RNA FAVIAN+probe Ql (Unsp spec) Not detected Normal NOT DETECTED [facility] Comment on above: Result Comment: When [...] for this test is supported by the [place] of Health and Human Service's declaration that [...] be used). Performed By: #### C VDTBH ####[facility] [address] [place], [place] [address]Zl. Bella Jerome DRUG SCREEN RAPID (URINE)on 09-05-2022 AMP Negative Normal NEGATIVE [facility] Comment on above: Performed By: #### D RUGRPD ####[facility] [address] [phone]. Bella Jerome BAR Negative Normal NEGATIVE [facility] Comment on above: Performed By: #### D RUGRPD ####[facility] [address] [phone] Jerome BUP Negative Normal NEGATIVE [facility] Comment on above: Performed By: #### D RUGRPD ####[facility] [address] [phone]. Bella Jerome BZO Negative Normal NEGATIVE [facility] Comment on above: Performed By: #### D RUGRPD ####[facility] [address] [phone]. Bella Jerome NGA Negative Normal NEGATIVE [facility] Comment on above: Performed By: #### D RUGRPD ####[facility] [address] [place], [place] [id number]. Bella Jerome CUT-OFFS SEE BELOW Normal [facility] Comment [...] 300 ng/mL Performed By: #### D RUGRPD ####[facility] [address] [place], [place] [address]Dr. Bella Jerome DRUG CUT HEADER DRUG CLASS TEST SYSTEM CUT-OFF CONCENTRATIONS ARE FOLLOWS: Normal [facility] Comment on above: Performed By: #### D RUGRPD ####[facility] [address] [phone]. Bella Jerome mAMP Negative Normal NEGATIVE [facility] Comment on above: Performed By: #### D RUGRPD ####[facility] [address] [phone]. Bella Jerome MTD Negative Normal NEGATIVE [facility] Comment on above: Performed By: #### D RUGRPD ####[facility] [address] [phone]. Bella Jerome OPI Negative Normal NEGATIVE [facility] Comment on above: Performed By: #### D RUGRPD ####[facility] [address] [phone]. Yiwally Jerome OXY Negative Normal NEGATIVE [facility] Comment on above: Performed By: #### D RUGRPD ####[facility] [address] [phone]. Bella Jerome PCP Negative Normal NEGATIVE [facility] Comment on above: Performed By: #### D RUGRPD ####[facility] [address] [address]Dr. Bella Jerome PPX Negative Normal NEGATIVE [facility] Comment on above: Performed By: #### D RUGRPD ####[facility] [address] [address]Dr. Bella Jerome TCA Negative Normal NEGATIVE [facility] Comment on above: Performed By: #### D RUGRPD ####[facility] [address] [place], [place] [id number]. Bella Jerome THC Negative Normal NEGATIVE [facility] Comment on above: Performed By: #### D RUGRPD ####[facility] [address] [address]Dr. Bella Jerome TYPE AND SCREENon 09-05-2022 TYPE AND SCREEN Negative Normal [facility] [place] Comment on above: Performed By: #### T NS ####[facility] [address] [place], [place] [address]Dr. Bella Jerome US PREG BIOPHY W NON [...] by: MANUELITO GREGG Date: 2022-08-31 17:06 Normal [facility] US PREG GROWTHon 08-30-2022 [...] by: MANUELITO GREGG Date: 2022-08-30 17:59 Normal [facility] US PREG BIOPHY W [...] by: MANUELITO GREGG Date: 2022-08-24 17:10 Normal [facility] FREE T4on 08-21-2022 Free T4 [Mass/Vol] 0.90 ng/dL Normal 0.76-1.46 [facility] Comment on above: Performed By: #### C BC #### [facility] [address] [address] [address] Bella Jerome TSHon 08-21-2022 TSH 1.033 uIU/mL Normal 0.358-3.740 [facility] Comment on above: Performed By: #### H H #### [facility] [address] [address] [address] Bella Jerome PREG BIOPHY W NON [...] by: MANUELITO GREGG Date: 2022-08-17 18:33 Normal [facility] GROUP B STREP CULTUREon 07-28 S. agalactiae Ag Ql (Unsp spec) Culture Observations: NEGATIVE FOR GROUP B STREPTOCOCCUS. Normal [facility] Comment on above: Performed By: #### G BSCX ####[facility] [address] [address]Dr. Bella Jerome PREG BIOPHY W NON STRESSo [...] by: MANUELITO GREGG Date: 2022-08-10 16:36 Normal [facility] US PREG GROWTHon 08-10-2022 US [...] by: MANUELITO GREGG Date: 2022-08-10 16:37 Normal [facility] US PREG GROWTHon 07-25-2022 US [...] by: MANUELITO GREGG Date: 2022-07-25 18:18 Normal [facility] FREE T4on 07-24-2022 Free T4 [Mass/Vol] 0.98 ng/dL Normal 0.76-1.46 [facility] Comment on above: Performed By: #### F T4 #### [facility] [address] [address] [address] Bella Jerome TSHon 07-24-2022 TSH 1.196 uIU/mL Normal 0.358-3.740 [facility] Comment on above: Performed By: #### T SH ####[facility] [address] [place], [place] [address]Dr. Bella Jerome UA (CLEAN/CATCH) SOCIAL SCIENCES PROFESSOR/MICRO I F IND.on 07-20-2022 Bilirubin Ql (U) Negative Normal NEGATIVE [facility] Comment on above: Performed By: #### H H #### [facility] [address] [place] [address] Dr. Bella Jerome Clarity (U) CLEAR Normal CLEAR [facility] Comment on above: Performed By: #### H H #### [facility] [address] [place] [address] Dr. Bella Jerome Color (U) LT. YELLOW Normal YELLOW [facility] Comment on above: Performed By: #### H H #### [facility] [address] [place] [address] Dr. Bella Jerome Glucose Ql (U) Negative Normal NEGATIVE The [facility] Comment on above: Performed By: #### H H #### [facility] [address] [place] [address] Dr. Bella Jerome Hemoglobin Ql (U) Negative Normal NEGATIVE The [facility] Comment on above: Performed By: #### H H #### [facility] [address] [place] [address] Dr. Bella Jerome Ketones Ql (U) Negative Normal NEGATIVE [facility] Comment on above: Performed By: #### H H #### [facility] [address] [place] [address] Dr. Bella Jerome LEUKOCYTES Negative Normal NEGATIVE [facility] Comment on above: Performed By: #### H H #### [facility] [address] [place] [address] Dr. Bella Jerome Nitrite Ql (U) Negative Normal NEGATIVE [facility] Comment on above: Performed By: #### H H #### [facility] [address] [place] [address] Dr. Bella Jerome pH (U) 7.0 [pH] Normal 5-9 [facility] Comment on above: Performed By: #### H H #### [facility] [address] [place] [address] Dr. Bella Jerome SPEC GRAVITY <=1.005 Abnormal 1.005-<=1.025 [facility] Comment on above: Performed By: #### H H #### [facility] [address] [place] [address] Dr. Bella Jerome UA PROTEIN Negative Normal NEGATIVE/ TRACE [facility] Comment on above: Performed By: #### H H #### [facility] [address] [place] [address] Dr. Bella Jerome UR MICRO IND NOT INDICATED Normal The [facility] [place] Comment on above: Performed By: #### H H #### [facility] [address] [place] [address] Dr. Bella Jerome Urobilinogen Qn (U) 0.2 {Kimberlee'U}/dL Normal 0.2 - 1. 0 [facility] Comment on above: Performed By: #### H H #### [facility] [address] [place] [address] Dr. Bella Jerome US PREG GROWTHon 06-27-2022 [...] by: RAGINI SANTOS Date: 2022-06-27 16:23 Normal [facility] FREE T4on 06-20-2022 Free T4 [Mass/Vol] 0.82 ng/dL Normal 0.76-1.46 [facility] Comment on above: Performed By: #### H H #### [facility] [address] [place] [address] Dr. Bella Jerome GLUCOSE - 1HRon 06-20-2022 Glucose [Mass/Vol] 127 mg/dL Critically high 74-106 T [facility] Comment on above: Performed By: #### H H #### [facility] [address] [address] [address] Bella Jerome HEMOGRAM AND PLATELon 2021 Hematocrit (Bld) [Volume fraction] 32.4 % Critically low 36.0-48.0 [facility] Comment on above: Performed By: #### H H #### [facility] [address] [address] [address] Bella Jerome Hemoglobin (Bld) [Mass/Vol] 10.9 g/dL Critically low 12.0-16.0 [facility] Comment on above: Performed By: #### H H #### [facility] [address] [address] [address] Bella Jerome MCH (RBC) [Entitic mass] 32.9 pg Normal 26.7-34.0 [facility] Comment on above: Performed By: #### H H #### [facility] [address] [place] [address] Dr. Bella Jerome MCHC (RBC) [Mass/Vol] 33.6 g/dL Normal 29.9-35.2 [facility] Comment on above: Performed By: #### H H #### [facility] [address] [address] [address] Bella Jerome MCV (RBC) [Entitic vol] 97.9 fL Normal 81.0-99.0 [facility] Comment on above: Performed By: #### H H #### [facility] [address] [address] [address] Bella Jerome PLT 241 103/ul Normal 150-450 [facility] Comment on above: Performed By: #### H H #### [facility] [address] [address] [address] Bella Jerome RBC 3.31 106/ul Critically low 4.20-5.40 [facility] Comment on above: Performed By: #### H H #### [facility] [address] [address] [address] Bella Jerome WBC 11.3 103/ul Critically high 4.0-11.0 [facility] Comment on above: Performed By: #### H H #### [facility] [address] [address] [address] Bella Jerome TSHon 06-20-2022 TSH 3.044 uIU/mL Normal 0.358-3.740 [facility] Comment on above: Performed By: #### C BC #### [facility] [address] [place] [address] Dr. Bella Jerome US PREG INCOMPLETE ANATOMYon 05-24-2022 US PREG INCOMPLETE ANATOMY EXAMINATION: US PREG INCOMPLETE ANATOMY HISTORY: screening COMPARISON: Ultrasound anatomy 04/26/2022 FINDINGS: Presentation: Cephalic Heart rate: 154 bpm Anatomy: Cervical, thoracic, and lumbar spine HERNANDO: 09/13/2022 IMPRESSION: 1. Adequate visualization of the cervical, thoracic, and lumbar spine; no appreciable abnormality. Electronically authenticated by: RAGINI SANTOS Date: 2022-05-24 17:33 Normal [facility] US PREG ANATOMY SINGLEon US PREG [...] MANUELITO GREGG Date: 2022-04-26 16:54 Normal [facility] CHLAMYDIA/GONOCOCCUS FAVIAN (SW AB/URINE/PAPon 04-19-2022 Chlamydia trachomatis, FAVIAN Negative Normal Negative [facility] Comment on above: Performed By: #### C T/NGNA ####[facility] [id number] [address]DrWill Jerome Neisseria gonorrhoeae, FAVIAN Negative Normal Negative [facility] Comment on above: Performed By: #### C T/NGNA ####[facility] [address] [place], [place] [address]PsWill Jerome VAGINITIS/VAGINOSIS DNA PROB Leonid 04-18-2022 Jessica species Negative Normal Negative The [facility] [place] Comment on above: Performed By: #### H H #### [facility] [address] [place] [address] Dr. Bella Jerome Gardnerella vaginalis Negative Normal Negative [facility] Comment on above: Performed By: #### H H #### [facility] [address] [place] [address] Dr. Bella Jerome Trichomonas vaginalis Negative Normal Negative [facility] Comment on above: Performed By: #### H H #### [facility] [address] [place] [address] Dr. Bella Jerome FREE T4on 04-05-2022 Free T4 [Mass/Vol] 0.88 ng/dL Normal 0.76-1.46 [facility] Comment on above: Performed By: #### F T4 #### [facility] [address] [place] [address] Dr. Bella Jerome TSHon 04-05-2022 TSH 1.786 uIU/mL Normal 0.358-3.740 [facility] Comment on above: Performed By: #### T SH ####[facility] [address] [place], [place] [address]Dr. Bella Jerome TSH RANGE SEE BELOW Normal [facility] Comment on above: Result Comment: <0.3 4 UIU/ml HYPERTHYROID 0.34-5.60 UIU/ml EUTHYROID >5.60 UIU/ml HYPOTHYROID Performed By: #### T SH ####[facility] [address] [address]Dr. Bella Jerome FREE T4on 02-26-2022 Free T4 [Mass/Vol] 1.06 ng/dL Normal 0.76-1.46 [facility] Comment on above: Performed By: #### C BC #### [facility] [address] [place] [address] Dr. Bella Jerome TSHon 02-26-2022 TSH 2.024 uIU/mL Normal 0.470-4.680 [facility] Comment on above: Performed By: #### C BC #### [facility] [address] [place], [place] [address] Dr. Bella Jerome TSH RANGE SEE BELOW Normal [facility] Comment on above: Result Comment: <0.3 4 UIU/ml HYPERTHYROID 0.34-5.60 UIU/ml EUTHYROID >5.60 UIU/ml HYPOTHYROID Performed By: #### C BC #### [facility] [address] [address] [address] Bella Jerome Vital Signs Date Time Vital Sign Value Performing Clinician Facility 09-01-2024 14:03-0500 Body mass index (BMI) [Ratio] 44.25 kg/m2 Agus Marquita DO Work Phone: [facility] 09-01-2024 14:03-0500 Body weight 113.31 kg Agus Marquita DO Work Phone: [facility] 09-01-2024 14:03-0500 Diastolic blood pressure 78 mm[Hg] Agus Marquita DO Work Phone: [facility] 09-01-2024 14:03-0500 Systolic blood pressure 120 mm[Hg] Agus Marquita DO Work Phone: [facility] 08-18-2024 13:50-0400 Body mass index (BMI) [Ratio] 43.54 kg/m2 Agus Marquita DO Work Phone: [facility] 08-18-2024 13:50-0400 Body weight 111.49 kg Agus Marquita DO Work Phone: [facility] 08-18-2024 13:50-0400 Diastolic blood pressure 74 mm[Hg] Agus Marquita DO Work Phone: [facility] 08-18-2024 13:50-0400 Systolic blood pressure 118 mm[Hg] Agus Marquita DO Work Phone: [facility] 08-04-2024 13:30-0400 Body mass index (BMI) [Ratio] 44.37 kg/m2 Marylou CARBAJAL Work Phone: [place] [id number] 13:30-0400 Body weight 113.63 kg Marylou CARBAJAL Work Phone: [facility] 08-04-2024 13:30-0400 Diastolic blood pressure 78 mm[Hg] Marylou CARBAJAL Work Phone: [facility] 08-04-2024 13:30-0400 Systolic blood pressure 128 mm[Hg] Marylou CARBAJAL Work Phone: [facility] 02-13-2024 11:24-0400 Body height 160.02 cm [facility] 02-13-2024 11:24-0400 Body mass index (BMI) [Ratio] 42.3 kg/m2 [facility] 02-13-2024 11:24-0400 Body weight 108.49 kg [facility] 02-13-2024 11:24-0400 Diastolic blood pressure 70 mm[Hg] [facility] 02-13-2024 11:24-0400 Heart rate 69 /min [facility] 02-13-2024 11:24-0400 Respiratory rate 18 /min [facility] 02-13-2024 11:24-0400 SaO2% (BldA) [Mass fraction] 98 % [facility] 02-13-2024 11:24-0400 Systolic blood pressure 118 mm[Hg] [facility] 10-31-2023 15:00-0500 Body height 160.02 cm Sandra Austin Other [facility] Other 10-31-2023 15:00-0500 Body mass index (BMI) [Ratio] 45.41 kg/m2 Sandra Austin Other [facility] [employer] Other 10-31-2023 15:00-0500 Body temperature 98.5 [degF] Sandra Austin Other [facility] Other 10-31-2023 15:00-0500 Body weight 116.3 kg Sandra Trinh [employer] Other 10-31-2023 15:00-0500 Diastolic blood pressure 80 mm[Hg] Sandra Geovanna Other [employer] Other 10-31-2023 15:00-0500 Respiratory rate 18 /min Sandra Geovanna Other [employer] Other 10-31-2023 15:00-0500 SaO2% (BldA) [Mass fraction] 98 % Sandra Pendletonaldo Other [employer] Other 10-31-2023 15:00-0500 Systolic blood pressure 128 mm[Hg] Sandra Geovanna Other [employer] Other 06-24-2023 14:30-0400 Body height 160.02 cm Sandra Pendletonaldo Other [employer] Other 06-24-2023 14:30-0400 Body mass index (BMI) [Ratio] 44.87 kg/m2 Sandra Pendletonaldo Other [employer] Other 06-24-2023 14:30-0400 Body weight 114.9 kg Sandra Geovanna Other [employer] Other 06-24-2023 14:30-0400 Diastolic blood pressure 60 mm[Hg] Sandra Geovanna Other [employer] Other 06-24-2023 14:30-0400 Respiratory rate 18 /min Sandra Geovanna Other [employer] Other 06-24-2023 14:30-0400 SaO2% (BldA) [Mass fraction] 99 % Sandra Austin Other [employer] Other 06-24-2023 14:30-0400 Systolic blood pressure 110 mm[Hg] Sandra Austin Other [employer] Other 04-15-2023 09:25-0400 Body height 160.02 cm Ramonita Greenberg Other [employer] Other 04-15-2023 09:25-0400 Body mass index (BMI) [Ratio] 41.8 kg/m2 Ramonita Hronmond Other [employer] Other 04-15-2023 09:25-0400 Body temperature 98.5 [degF] Ramonita Hornmond Other [employer] Other 04-15-2023 09:25-0400 Body weight 107.05 kg Ramonita Hornmond Other [employer] Other 04-15-2023 09:25-0400 Respiratory rate 18 /min Ramonita Hornmond Other [employer] Other 04-15-2023 09:25-0400 SaO2% (BldA) [Mass fraction] 97 % Ramonita Hornmond Other [employer] Other 02-21-2023 14:45-0400 Body height 160.02 cm Sandra Austin Other [employer] Other 02-21-2023 14:45-0400 Body mass index (BMI) [Ratio] 41.39 kg/m2 Sandra Austin Other [employer] Other 02-21-2023 14:45-0400 Body weight 106.01 kg Sandra Geovanna Other [employer] Other 02-21-2023 14:45-0400 Diastolic blood pressure 60 mm[Hg] Sandra Austin Other [employer] Other 02-21-2023 14:45-0400 Respiratory rate 18 /min Sandra Geovanna Other [employer] Other 02-21-2023 14:45-0400 SaO2% (BldA) [Mass fraction] 98 % Sandra Geovanna Other [employer] Other 02-21-2023 14:45-0400 Systolic blood pressure 110 mm[Hg] Sandra Austin Other [employer] Other 12-24-2022 14:30-0500 Body height 160.02 cm Sandra Geovanna Other [employer] Other 12-24-2022 14:30-0500 Body mass index (BMI) [Ratio] 40.83 kg/m2 Sandra Austin Other [employer] Other 12-24-2022 14:30-0500 Body weight 104.55 kg Sandra Austin Other [employer] Other 12-24-2022 14:30-0500 Diastolic blood pressure 70 mm[Hg] Sandra Austin Other [employer] Other 12-24-2022 14:30-0500 Respiratory rate 18 /min Sandra Austin Other [employer] Other 12-24-2022 14:30-0500 SaO2% (BldA) [Mass fraction] 99 % Sandra Austin Other [employer] Other 12-24-2022 14:30-0500 Systolic blood pressure 118 mm[Hg] Sandra Austin Other [employer] Other 12-21-2021 16:30-0500 Body height 160.02 cm Sandra Austin Other [employer] Other 12-21-2021 16:30-0500 Body mass index (BMI) [Ratio] 38.58 kg/m2 Sandra Austin Other [employer] Other 12-21-2021 16:30-0500 Body temperature 97.3 [degF] Sandra Austin Other [employer] Other 12-21-2021 16:30-0500 Body weight 98.79 kg Sandra Austin Other [employer] Other 12-21-2021 16:30-0500 Diastolic blood pressure 60 mm[Hg] Sandra Austin Other [employer] Other 12-21-2021 16:30-0500 Respiratory rate 18 /min Sandra Austin Other [employer] Other 12-21-2021 16:30-0500 SaO2% (BldA) [Mass fraction] 99 % Sandra Austin Other [employer] Other 12-21-2021 16:30-0500 Systolic blood pressure 118 mm[Hg] Sandra Austin Other [facility] Other Encounters Encounter Date Encounter Type Care [...] Available Start: 02-13-2024 End: 02-13-2024 ambulatory [facility] Work Phone: Start: 02-13-2024 End: 02-13-2024 Patient encounter procedure [facility] [place] Work Phone: Start: 12-16-2023 Non-patient / Non-visit Former[facility] [employer] Work Phone: Start: 12-16-2023 End: 12-16-2023 ambulatory AGUS MARQUITA Not Available Start: 10-31-2023 End: 10-31-2023 ambulatory Sandra Austin Other [facility] Other Start: 10-31-2023 Office outpatient vi sit 25 minutes Sandra Austin [facility] Start: 07-19-2023 End: 07-19-2023 ambulatory Sandra Austin Other [employer] Other Start: 07-19-2023 Telephone encounter Sandra Geovanna [facility] [place] Start: 06-24-2023 End: 06-24-2023 ambulatory Sandra Geovanna Other [employer] Other Start: 06-24-2023 Office outpatient vi sit 25 minutes Sandra Austin [facility] Start: 06-04-2023 End: 06-04-2023 ambulatory Sandra Geovanna Other [employer] Other Start: 06-04-2023 Telephone encounter Sandra [facility] Start: 04-15-2023 End: 04-15-2023 ambulatory Ramonita Yari Other [employer] Other Start: 04-15-2023 Office outpatient vi sit 15 minutes Ramonita Yari [facility] Start: 04-11-2023 End: 04-11-2023 ambulatory Sandra Geovanna Other [employer] Other Start: 04-11-2023 Telephone encounter Sandra Geovanna [facility] [place] Start: 02-21-2023 Office outpatient vi sit 25 minutes Sandra Austin [facility] Start: 02-21-2023 End: 02-22-2023 ambulatory SANDRA GEOVANNA [facility] [employer] Other Start: 01-04-2023 End: 01-04-2023 ambulatory Sandra Austin Other [employer] Other Start: 01-04-2023 Telephone encounter Sandra Guevara [facility] Start: 12-30-2022 Encounter for genera l adult medical examination without abnormal findings SANDRA AUSTIN [facility] Start: 12-27-2022 End: 12-27-2022 ambulatory Sandra Austin Other [facility] Other Start: 12-27-2022 Telephone encounter Sandra Austin [facility] Start: 12-26-2022 End: 12-27-2022 ambulatory SANDRA AUSTIN Facility:[facility] Start: 12-26-2022 End: 12-27-2022 Encounter for general adult medical examination without abnormal findings SANDRA AUSTIN Facility:[facility] Start: 12-24-2022 End: 12-24-2022 ambulatory Sandra Austin Other [facility] Other Start: 12-24-2022 Encounter for genera l adult medical examination without abnormal findings Sadnra Austin [facility] Start: 12-24-2022 Periodic preventive med est patient 18-39 yrs Sandra Austin [facility] [place] Start: 12-10-2022 End: 12-10-[address] AGUS [...] 12-21-2021 End: 12-21-2021 ambulatory Sandra Kaple Other [employer] Other Start: 12-21-2021 Office outpatient ne w 45 minutes Sandra Austin [facility] Procedures Date Procedure Procedure Detail Performing [...] EST Office Visit [facility] [address] [place] [id number] Agus Juárez, DO [address] [place] [address] [facility] Start: 09-08-2024 End: 09-08-2024 Patient encounter procedure 09/08/2024 10:50 AM EST Routine [facility] [address] [place] [id number] Agus Juárez, DO [address] [place] [address] [facility] Start: 09-01-2024 End: 09-01-2025 [...] PM EDT Routine [facility] [address] [place] [address] Agus Juárez, DO [address] [facility] [address] [place], [place] [id number] [facility] Start: 08-18-2024 End: 08-18-2024 Professional / ancillary services management 08/18/2024 1:00 PM EDT Ancillary Procedure [facility] [address] [place] [address] [facility] Patient Education Low back pain in adults [facility] Work Phone: Immunizations Immunization Date Immunization Notes Care Provider [facility] 09-08-2022 diphtheria, tetanus toxoids and pertussis vaccine Marylou CARBAJAL Work Phone: [facility] 09-12-2021 pneumococcal conjuga te vaccine, 13 valent Marylou CARBAJAL Work Phone: [facility] 08-14-1999 diphtheria, tetanus toxoids and acellular pertussis vaccine, unspecified formulation Marylou CARBAJAL Work Phone: [facility] 08-14-1999 haemophilus influenz ae type b vaccine, HbOC conjugate Marylou CARBAJAL Work Phone: [facility] 08-14-1999 measles, mumps and rubella virus vaccine Marylou CARBAJAL Work Phone: [facility] 08-14-1999 trivalent poliovirus vaccine, live, oral Marylou CARBAJAL Work Phone: [facility] 04-27-1998 diphtheria, tetanus toxoids and acellular pertussis vaccine, unspecified formulation Marylou CARBAJAL Work Phone: [facility] 04-27-1998 haemophilus influenz ae type b conjugate and Hepatitis B vaccine Marylou Priest PA Work Phone: [facility] 1997 diphtheria, tetanus toxoids and acellular pertussis vaccine, unspecified formulation Marylou Peabody PA Work Phone: [facility] 1997 haemophilus influenz ae type b vaccine, HbOC conjugate Marylou CARBAJAL Work Phone: [facility] 1997 poliovirus vaccine, inactivated Marylou CARBAJAL Work Phone: [facility] 1997 diphtheria, tetanus toxoids and acellular pertussis vaccine, unspecified formulation Marylou CARBAJAL Work Phone: [facility] 1997 haemophilus influenz ae type b conjugate and Hepatitis B vaccine Marylou CARBAJAL Work Phone: [facility] 1997 poliovirus vaccine, inactivated Marylou CARBAJAL Work Phone: [facility] 1997 hepatitis B vaccine, pediatric or pediatric/adolescent dosage Marylou CARBAJAL Work Phone: [facility] Payers Date Payer Category Payer Private Health Insurance [employer] [id number] 2023 Unknown [employer] [id number] 2023-Present [address] [place] [address] [id number] 2023 Unknown [id number] 2.16.840.1.675071.19 1997 Unknown [id number] 2.16.840.1.255731.3.579.2. 593 1997 Unknown [id number] 2.16.840.1.078684.3.579.2. 593 1997 Unknown [id number] 2.16.840.1.748499.3.579.2. 593 1997 Unknown [id number] 2.16.840.1.985993.3.579.2. 593 1997 Unknown [id number] 2.16.840.1.164420.3.579.2. 593 1997 Unknown [id number] 2.16.840.1.241788.3.579.2. 593 1997 Unknown [id number] 2.16.840.1.457530.3.579.2. 593 1997 Unknown [id number] 2.16.840.1.070043.3.579.2. 593 1997 Unknown [id number] 2.16.840.1.630972.3.579.2. 593 1997 Unknown [id number] 2.16.840.1.299928.3.579.2. 593 1997 Unknown [id number] 2.16.840.1.022277.3.579.2. 593 1997 Unknown [id number] 2.16.840.1.670121.3.579.2. 593 1997 Unknown [id number] 2.16.840.1.450669.3.579.2. 593 1997 Unknown [id number] 2.16.840.1.748090.3.579.2. 593 1997 Unknown [id number] 2.16.840.1.382874.3.579.2. 593 1997 Unknown [id number] 2.16.840.1.029834.3.579.2. 593 1997 Unknown [id number] 2.16.840.1.459685.3.579.2. 593 1997 Unknown [id number] 2.16.840.1.157624.3.579.2. 593 1997 Unknown [id number] 2.16.840.1.096680.3.579.2. 593 1997 Unknown [id number] 2.16.840.1.662930.3.579.2. 593 1997 Unknown [id number] 2.16.840.1.154007.3.579.2. 593 1997 Unknown [id number] 2.16.840.1.245513.3.579.2. 593 1997 Unknown [id number] 2.16.840.1.249774.3.579.2. 593 1997 Unknown [id number] 2.16.840.1.985043.3.579.2. 1258 1997 Unknown [id number] 2.16.840.1.007841.3.579.2. 1258 1997 Unknown [id number] 2.16.840.1.771180.3.579.2. 1258 1997 Unknown [id number] 2.16.840.1.662670.3.579.2. 1258 1997 Unknown [id number] 2.16.840.1.739681.3.579.2. 1258 1997 Unknown [id number] 2.16.840.1.961291.3.579.2. 1258 1997 Unknown [id number] 2.16.840.1.219732.3.579.2. 1258 1997 Unknown [id number] 2.16.840.1.337194.3.579.2. 12581997 Unknown [id number] 2.16.840.1.454476.3.579.2. 9 1997 Unknown [id number] 2.16.840.1.167861.3.579.2. 9 1997 Unknown [id number] 2.16.840.1.356343.3.579.2. 1259 1959 Medicaid [id number] 2.16.840.1.135758.19 1959 Private Health Insurance [id number] Self-pay Self Pay [id number] Unknown [place] [id number] Social History Date Type Detail Facility Start: 08-02-2023 End: 11-25-2023 Sex Assigned At [facility] Other Start: 1995 Sex Assigned At Female [facility] [place] Start: 08-02-2023 [facility] Start: [...] 4 mg, Oral, Every 6 hours PRN Yijgtehu-Wrv-Bb-FA ( 1 + IRON PO) Take by [...] nursing note reviewed. Exam conducted with a staff pharmacist present. Vitals: Estimated body mass index is [...] DO documented in this encounter [facility] 08-18-2024 History of Presen t illness Narrative [...] before breakfast, Do not crush or chew. Xhztiacs-Een-Vy-FA ( 1 + IRON PO) Oral ALLERGIES [...] nursing note reviewed. Exam conducted with a staff pharmacist present. Vitals: Estimated body mass index is [...] DO documented in this encounter [facility] 08-04-2024 History of Presen t illness Narrative [...] before breakfast, Do not crush or chew. Fthurcbs-Cop-Ne-FA ( 1 + IRON PO) Oral ALLERGIES [...] Paternal Grandmother Jenna Mental illness Paternal Grandfather Aript Cancer Paternal Grandfather Arpit Diabetes Paternal Grandfather [...] Turner documented in this encounter [facility] 10-31-2023 Evaluation note Encounter Date Diagnosis [...] E28.2) She will continue to follow with OB-VIDEO SPECIALIST and continue healthy lifestyle changes that [...] course of antibiotic. Increase fluids and rest. Vgiu-msz-[id number] antipyretics as needed. Warning signs and symptoms reviewed with patient today. Patient to go immediately to the ER should she experience any of these. Patient to notify office should her symptoms persist and not improve. Patient verbalizes understanding and agrees to treatment plan. [employer] Other 09-22-2023 Evaluation note* Encounter Date Diagnosis Assessment Notes Treatment Notes Treatment Clinical Notes Jun, Vitamin D insufficiency (ICD-10 - E55.9) [employer] Other 08-28-2023 Evaluation note* Encounter Date Diagnosis Assessment Notes Treatment Notes Treatment Clinical Notes May, Prediabetes (ICD-10 - R73.03) Recent lab work reviewed with her from [place]. In office [id number] shows good control with diet and exercise. Will continue current treatment plan. Patient is advised to work on healthy diet choices and appropriate servings, weight control, regular exercise as directed, reduced fat intake, and salt avoidance. Patient voiced understanding of this and agrees to this plan. May, PCOS (polycystic ovarian syndrome) (ICD-10 - E28.2) She will continue to follow with OB-VIDEO SPECIALIST and continue healthy lifestyle changes that [...] ENT today. Specialty notes reviewed as received. [employer] Other 08-08-2023 Evaluation note* Encounter Date Diagnosis Assessment Notes Treatment Notes Treatment Clinical Notes May, Other atopic dermatitis (ICD-10 - L20.89) May, Acute otitis externa of both ears, unspecified type (ICD-10 - H60.503) [employer] Other 06-19-2023 Evaluation note* Encounter Date Diagnosis [...] no improvement in 2 to 3 days [employer] Other 06-15-2023 Evaluation note* Encounter Date Diagnosis Assessment Notes Treatment Notes Treatment Clinical Notes Mar, Anxiety (ICD-10 - F41.9) [employer] Other 04-27-2023 Evaluation note* Encounter Date Diagnosis [...] plan on rechecking this at May appointment. [employer] Other 03-10-2023 Evaluation note* Encounter Date Diagnosis Assessment Notes Treatment Notes Treatment Clinical Notes Dec, Bacterial conjunctivitis (ICD-10 - H10.9) [employer] Other 03-02-2023 Evaluation note* Encounter Date Diagnosis Assessment Notes Treatment Notes Treatment Clinical Notes Dec, Vitamin D insufficiency (ICD-10 - E55.9) Dec, Elevated alkaline phosphatase level (ICD-10 - R74.8) Dec, Other specified hypothyroidism (ICD-10 - E03.8) [employer] Other 02-27-2023 Evaluation note* Encounter Date Diagnosis [...] ordered. Follow routinely with eye doctor, dentist, VIDEO SPECIALIST. Patient is advised to work on healthy diet choices and appropriate servings, weight control, regular exercise as directed, reduced fat intake, and salt avoidance. Patient voiced understanding of this and agrees to this plan. Nov, PCOS (polycystic ovarian syndrome) (ICD-10 - E28.2) Routine lab work ordered. She will continue to follow with OB-VIDEO SPECIALIST and continue healthy lifestyle changes that [...] homicidal ideations. Started on Celexa by her VIDEO SPECIALIST. Very stable on Celexa 20 mg [...] her ears still persist after starting this. [employer] Other 02-24-2022 Evaluation note* Encounter Date Diagnosis Assessment Notes Treatment Notes Treatment Clinical Notes Nov, Prediabetes (ICD-10 - R73.03) She was recently dx with prediabetes and was started on Metformin 500 mg BID 2 weeks ago by her OB-VIDEO SPECIALIST. She would like to follow with [...] - E28.2) She is following with her OB-VIDEO SPECIALIST for her PCOS and is currently on Metformin 500 mg BID and is taking medication to help her get . She will continue to follow with OB-VIDEO SPECIALIST and continue healthy lifestyle changes that [...] of fatigue, difficulty losing weight by her OB-VIDEO SPECIALIST. She would like to start following [...] of this and agrees to this plan. [employer] Other Evaluation note* Diagnosis Onset Date Resolution Status 8 weeks gestation of acute Low back pain [facility] Work Phone: Evaluation note* Diagnosis 32 [...] THIRD NIPPLE REMOVED Surgical History Colonoscopy-normal 2018 [employer] Other Summary Purpose Family History Relationship Condition [...] pain (H92. 01) Referral Organization [facility] Family Gonzales Hernandez Referring Provider First Name [...] FLORES 09/03/2024 [facility] dical Specialists EPIC Care Teams (unrecognized sec [...] February 13, 2024 End: February 13, 2024 Medical Billing Associate Relationship Specialty Start Date End Date Sandra Austin NP [address] [facility] [place] [address] PCP - General 07/19/23 Medical Billing Associate Relationship Specialty Start Date End Date Sandra Austin NP [address] [place] [address] PCP - General 07/19/23 Medical Billing Associate Relationship Specialty Start Date End Date Geovanna Sandra Hall DRY CURE WORKER [address] [place] [address] PCP General 07/19/23 Medical Billing Associate Relationship Specialty Start Date End Date Sandra Austin DRY CURE WORKER [address] [place] [address] [facility] 07/19/23 Medical Billing Associate Relationship Specialty Start Date End Date Sandra Austin NP [address] [place] [address] [facility] 07/19/23 Medical Billing Associate Relationship Specialty Start Date End Date Sandra Austin DRY CURE WORKER [address] [place] [address] [facility] 07/19/23 Goals (unrecognized section and content) [...] BE BASED ON THE PRIMARY CLINICAL RECORDS. [facility]. provides no warranty or guarantee of the accuracy or completeness of information in this document.
[2024-09-09 15:03] VITALS: BP 122/77; PULSE 88
--- NOTE | 2024-09-09 15:07 | US_ITS ---
[place] [id number] Patient Name: SOFIA ZEPEDA MRN: [facility]:[id number] date: 1995 Sex: F Assigned Patient Location: [facility] Current Patient Location: Accession/Order Number: [id number] Exam Date: 09/09/2024 15:45 Report Date: 09/10/2024 06:38 At the request of: AGUS SANTO Procedure: US OB BPP w non-stress EXAMINATION: US OB BPP w non-stress HISTORY:abnormal thyroid COMPARISON: Ultrasound OB biophysical 09/02/2024 TECHNIQUE: Ultrasound biophysical profile was performed in the radiology department. BREATHING MOVEMENTS: 2 GROSS BODY MOVEMENTS: 2 TONE: 2 QUALITATIVE AMNIOTIC FLUID VOLUME: 2 PRESENTATION: CEPHALIC HEART RATE: 129.81 bpm AMNIOTIC FLUID VOLUME: 19.92 cm GESTATIONAL AGE: 37 weeks 5 days US/US OB BPP w non-stress IMPRESSION: Total biophysical profile score: 8 Electronically authenticated by: RAGINI SANTOS Date: 09/10/2024 06:38
== END 2024-09-09 16:10 | disposition home or self-care (01) ==
LOC: US 07:01 → FBC 14:57
PROVIDERS: Visit Provider Obstetrics & Gynecology
DX: O26.893 Other specified pregnancy related conditions, third trimester (principal); R94.6 Abnormal results of thyroid function studies; Z3A.37 37 weeks gestation of pregnancy
CPT/HCPCS: 76818

== ENCOUNTER 2024-09-12 06:37 | Outpatient (OUT) | payer OTHER, SELFPAY ==
--- OUTSIDE RECORDS SUMMARY | 2024-09-12 06:39 | XMS_ITS | CCD ---
Author Organization [facility] Care Team Providers Care Wholesale Diamond Broker Name Role Phone [facility] Unavailable KAP, SANDRA Primary Care [...] ., DR GOLDSMITH Admitting Unavailable ZIEBER, DR RGAINI Chatterjee Consulting Unavailable KAPLE, SANDRA Primary Care [...] LYK ., DR HU Consulting Unavailabl e [place], DR MANUELITO Foley Consulting Unavailable MARQUITA ., DR GOLDSMITH Consulting Unavailable SANDRA AUSTIN Primary Care Unavailable MARQUITA ., DR GOLDSMITH Attending Unavailable MARYSOL, DR MANUELITO Foley Consulting Unavailable MARQUITA ., DR GOLDSMITH Admitting Unavailable MARQUITA ., DR GOLDSMITH Consulting Unavailable Ramontia Greenberg Unavailable Geovanna CHIEF PROCUREMENT OFFICER, Sandra Hall Primary Care Provider [phone] EDGAR JUÁREZ Attending Unavailable MARQUITA, EDGAR Attending Unavailable MARQUITA, EDGAR Attending Unavailable MARYLOU PRIEST Attending Unavailable MARQUITA, EDGAR Attending Unavailable MARQUITA, EDGAR Attending Unavailable MARQUITA, EDGAR Attending Unavailable MARYLOU PRIEST Attending Unavailable MARQUITA, EDGAR Attending Unavailable MARQUITA, EDGAR Attending Unavailable MARQUITA, EDGAR Attending Unavailable Medications Current Medications Medication Drug [...] hours February 13, 2024 12:00am polymyxin b 73893 unt/ml / trimethoprim 1 mg/ml ophthalmic solution (3 sources) Dihydrofolate Reductase Inhibitor Antibacterial, Polymyxin-class Antibacterial Start: 01-04-2023 Polymyxin B-Trimethoprim 67930-3.1 UNIT/ML 1 drop into affected eye Ophthalmic every 3 hours up to six times daily for 7 days Dec, Active (10 sources) Active Lwckbcki-Tjz-Hg-FA ( 1 + IRON PO) (10 sources) Slggnrhr-Rmd-Xo-FA ( 1 + IRON PO) Take by [...] acid 7540 MG / polyethylene glycol 3350 95199 MG / potassium chloride 1200 MG / sodium ascorbate 54578 MG / sodium chloride 3200 MG Powder for Oral Solution) / 1 (polyethylene glycol 3350 159070 MG / potassium chloride 1000 MG / [...] (U)on 09-01-2024 Bilirubin, UA Negative Negative - (70) +++ mg/dL [facility] Blood, UA Negative Negative - 50 Jose Manuel/mcL [facility] Healthcare Clarity, UA Clear [facility] Healthca re Color, UA Yellow [facility] Health[facility] e Glucose, UA Negative Negative - 1999(110) ++++ mg/dL [facility] Interpretation and review of laboratory results Abnormal [facility] Ketones, UA Negative Negative - 160(16) ++++ mg/dL [facility] Leukocytes, UA Trace Negative - 500+++ Alexys/mcL [facility] Nitrite, UA Negative Negative - Positive [facility] pH, UA 7 5 - 9 [facility] Health[facility] e Protein, UA Negative Negative - 1999(20) ++++ mg/dL [facility] Spec Grav, UA 1.015 1 - 1.03 [facility] Urobilinogen, UA 0.2 0.2 - 12 mg/dL [facility] ALL THYROID STIM HORMONEon 1 10-29-2023 TSH Qn 0.716 m[IU]/L [facility] Health[facility] e Urinalysis macro (dipstick) panel (U)on 08-18-2024 Bilirubin, UA Negative Negative - (70) +++ mg/dL [facility] Blood, UA Negative Negative - 50 Jose Manuel/mcL [facility] Clarity, UA Clear [facility] Healthca re Color, UA Yellow [facility] Glucose, UA Negative Negative - 1999(110) ++++ mg/dL [facility] Interpretation and review of laboratory results Normal [facility] Ketones, UA Negative Negative - 160(16) ++++ mg/dL [facility] Leukocytes, UA Negative Negative - 500+++ Alexys/mcL [facility] Nitrite, UA Negative Negative - Positive [facility] pH, UA 6.5 5 - 9 [facility] Protein, UA Negative Negative - 1999(20) ++++ mg/dL [facility] Spec Grav, UA 1.01 1 - 1.03 [facility] Urobilinogen, UA 0.2 0.2 - 12 mg/dL [facility] Urinalysis macro (dipstick) panel (U)on 08-04-2024 Bilirubin, UA Negative Negative - 4(70) +++ mg/dL [facility] Blood, UA Negative Negative - 50 Jose Manuel/mcL [facility] Clarity, UA Clear [facility] Health[facility] re Color, UA Yellow [facility] Health[facility] Glucose, UA Negative Negative - 1999(110) ++++ mg/dL [facility] Interpretation and review of laboratory results Abnormal [facility] Ketones, UA Negative Negative - 160(16) ++++ mg/dL [facility] Leukocytes, UA Trace Negative - 500+++ Alexys/mcL [facility] Nitrite, UA Negative Negative - Positive [facility] pH, UA 7.0 5 - 9 [facility] e Protein, UA Negative Negative - 1999(20) ++++ mg/dL [facility] Spec Grav, UA 1.015 1 - 1.03 [facility] Urobilinogen, UA 0.2 0.2 - 12 mg/dL [facility] Human papilloma virus 16+18+ 31+33+35+39+45+51+52+56+58+59+66+68 DNA [Presence] in Anders 12-16-2023 HPV 16+18+31+33+35+39+45 +51+52+56+58+59+66+6 8 DNA Probe+sig amp Ql (Cvx) Note . [facility] Comment on above: TESTS RESULT FLAG UN ITS REF RANGE LAB DI AGNOSIS: 02 NEGATIVE FOR INTRAEPITHELIAL LESION OR MALIGNANCY.Specimen adequacy: 02 Satisfactory for evaluation. Endocervical and/or squamous metaplastic cells (endocervical component) are present.Performed by: 02 Raeann Duran, Pupil Personnel Worker (ASC). 02Note: Note 02 The Pap smear is a screening test designed to aid in the detection of premalignant and malignant conditions of the uterine cervix. It is not a diagnostic procedure and should not be used as the sole means of detecting cervical cancer. Both false-positive and false-negative reports do occur.Test Methodology: Note 02 The [employer](R) Pharmaceutical Sales Representative was unable to read this specimen. Therefore a manual review was performed. ----- FLAG LEGEND: L-Low Normal,H-High Normal,LL-Alert Low,HH-Alert High <-Panic Low,>-Panic High,A-Abnormal,AA-Critical Abnormal ---Performed at:[address] [id number] Heavenly Serrano MD, . 02 The HPV DNA reflex criteria were not met with this specimen result therefore, no HPV testing was performed.The HPV DNA reflex criteria were not met with this specimenresult therefore, no HPV testing was performed.Performed at: =[facility] [id number] Director: Heavenly Serrano MD, Phone: [phone] at: [address] [id number] Director: Heavenly Serrano MD, Phone: [phone] No Panel Informationon 12-16 Reference Lab Test Patient Age Note . [facility] Comment on above: TESTS RESULT FLAG UN ITS REF RANGE LAB Clinician Provided Cytology Information Source.............Cervix No. of containers..01 ThinPrep VialAge Niruo DELORIS Leslye... FLAG LEGEND: L-Low Normal,H-High Normal,LL-Alert Low,HH-Alert High <-Panic Low,>-Panic High,A-Abnormal,AA-Critical Abnormal ---Performed at:01 =[facility] [id number] Heavenly Serrano MD, A1C HEMOGLOBINon 10-31-2023 HbA1c (Bld) [Mass fraction] 5.8 % [facility] Other HbA1c (Bld) [Mass fraction]o n 10-31-2023 A1C HEMOGLOBIN [employer] Other A1C HEMOGLOBINon 06-24-2023 HbA1c (Bld) [Mass fraction] 5.2 % [facility] Other HbA1c (Bld) [Mass fraction]o n 06-24-2023 A1C HEMOGLOBIN [employer] Other Quick Strepon 04-15-2023 S. pyogenes Org specific cx Ql (Throat) Positive [facility] Other Quick Strep [employer] Other FREE T4on 02-21-2023 Free T4 [Mass/Vol] 0.89 ng/dL Normal 0.76-1.46 [facility] Comment on above: Performed By: #### H H #### [facility] [address] [place] [address] Dr. Bella Jerome PROF 14(COMP METB)on 023 Albumin [Mass/Vol] 3.7 g/dL Normal 3.4-5.0 [facility] Comment on above: Performed By: #### H H #### [facility] [address] [place] [address] Dr. Bella Jerome Albumin/Globulin [Mass ratio] 0.9 {ratio} Normal [facility] Comment on above: Performed By: #### H H #### [facility] [address] [place] [address] Dr. Bella Jerome ALP [Catalytic activity/Vol] 132 U/L Critically high 46-116 [facility] Comment on above: Performed By: #### H H #### [facility] [address] [place] [address] Dr. Bella Jerome ALT [Catalytic activity/Vol] 32 U/L Normal 14-59 [facility] Comment on above: Performed By: #### H H #### [facility] [address] [place] [address] Dr. Bella Jerome Anion gap [Moles/Vol] 12.8 mmol/L Normal [facility] Comment on above: Performed By: #### H H #### [facility] [address] [place] [address] Dr. Bella Jerome AST [Catalytic activity/Vol] 23 U/L Normal 15-37 [facility] Comment on above: Performed By: #### H H #### [facility] [address] [place] [address] Dr. Bella Jerome Bilirubin [Mass/Vol] 0.6 mg/dL Normal 0.2-1.0 [facility] Comment on above: Performed By: #### H H #### [facility] [address] [place] [address] Dr. Bella Jerome Calcium [Mass/Vol] 9.0 mg/dL Normal 8.5-10.1 [facility] Comment on above: Performed By: #### H H #### [facility] [address] [place] [address] Dr. Bella Jerome Chloride [Moles/Vol] 102 mmol/L Normal 98-107 [facility] Comment on above: Performed By: #### H H #### [facility] [address] [place] [address] Dr. Bella Jerome CO2 [Moles/Vol] 28.2 mmol/L Normal 21.0-32.[address] [facility] Comment on above: Performed By: #### H H #### [facility] [address] [address] [address] Bella Jerome Creatinine [Mass/Vol] 0.67 mg/dL Normal 0.55-1.02 [facility] Comment on above: Performed By: #### H H #### [facility] [address] [address] [address] Bella Jerome EGFR-AF VINCENTIAN >60 Normal >=[address] [facility] Comment on above: Performed By: #### H H #### [facility] [address] [place] [address] Dr. Bella Jerome EGFR-NON AF VINCENTIAN >60 Normal >=60 [facility] Comment on above: Performed By: #### H H #### [facility] [address] [address] [address] Bella Jerome Globulin (S) [Mass/Vol] 4.2 g/dL Normal [facility] Comment on above: Performed By: #### H H #### [facility] [address] [address] [address] Bella Jerome Glucose [Mass/Vol] 88 mg/dL Normal 74-106 [facility] Comment on above: Performed By: #### H H #### [facility] [address] [place] [address] Dr. Bella Jerome Potassium [Moles/Vol] 4.0 mmol/L Normal 3.5-5.1 The [facility] Comment on above: Performed By: #### H H #### [facility] [address] [address] [address] Bella Jerome Protein [Mass/Vol] 7.9 g/dL Normal 6.4-8.2 [facility] Comment on above: Performed By: #### H H #### [facility] [address] [place] [address] Dr. Bella Jerome Sodium [Moles/Vol] 139 mmol/L Normal 136-145 [facility] Comment on above: Performed By: #### H H #### [facility] [address] [place] [address] Dr. Bella Jerome Urea nitrogen [Mass/Vol] 12.0 mg/dL Normal 7.0-18.0 [facility] Comment on above: Performed By: #### H H #### [facility] [address] [place] [address] Dr. Bella Jerome Urea nitrogen/Creatinine [Mass ratio] 17.9 mg/mg Normal [facility] Comment on above: Performed By: #### H H #### [facility] [address] [place] [address] Dr. Bella Jerome TSHon 02-21-2023 TSH 2.463 uIU/mL Normal 0.358-3.740 [facility] Comment on above: Performed By: #### H H #### [facility] [address] [place] [address] Dr. Bella Jerome VITAMIN D 25 OHon 02-21-2023 VIT D 25-OH 23.1 ng/mL Normal [facility] Comment on above: Performed By: #### H H #### [facility] [address] [place] [address] Dr. Bella Jerome VIT D RANGES SEE BELOW Normal [facility] Comment on above: Result Comment: <20 ng/mL Vit D deficient 20 - <30 ng/mL Vit D insufficient 30 - 100 ng/mL Vit D sufficient >100 ng/mL Potential Toxicity Performed By: #### H H #### [facility] [address] [place] [address] Dr. Bella Jerome CBC AUTO DIFFon 12-26-2022 BASO # 0.0 103/ul Normal 0.0-0.1 [facility] Comment on above: Performed By: #### C BC #### [facility] [address] [place] [address] Dr. Bella Jerome Basophils/100 WBC (Bld) 0.3 % Normal 0.2-2.0 [facility] Comment on above: Performed By: #### C BC #### [facility] [address] [place] [address] Dr. Bella Jerome EO # 0.1 103/ul Normal 0.0-0.7 The [facility] Comment on above: Performed By: #### C BC #### [facility] [address] [place] [address] Dr. Bella Jerome Eosinophils/100 WBC (Bld) 1.6 % Normal 0.9-7.0 The [facility] Comment on above: Performed By: #### C BC #### [facility] [address] [place] [address] Dr. Bella Jerome Erythrocyte distribution width (RBC) [Ratio] 12.7 % Normal 11.0-15.0 The [facility] Comment on above: Performed By: #### C BC #### [facility] [address] [place] [address] Dr. Bella Jerome Hematocrit (Bld) [Volume fraction] 37.2 % Normal 36.0-48.0 [facility] Comment on above: Performed By: #### C BC #### [facility] [address] [place] [address] Dr. Bella Jerome Hemoglobin (Bld) [Mass/Vol] 12.5 g/dL Normal 12.0-16.0 The [facility] Comment on above: Performed By: #### C BC #### [facility] [address] [place] [address] Dr. Bella Jerome IG # 0.02 10e3/ul Normal 0.00-0.03 The [facility] Comment on above: Performed By: #### C BC #### [facility] [address] [place] [address] Dr. Bella Jerome IG % 0.3 % Normal 0.0-0.5 The [facility] Comment on above: Performed By: #### C BC #### [facility] [address] [place] [address] Dr. Bella Jerome LYMPH # 2.3 103/ul Normal 1.2-3.8 The [facility] Comment on above: Performed By: #### C BC #### [facility] [address] [place] [address] Dr. Bella Jerome Lymphocytes/100 WBC (Bld) 34.1 % Normal 20.5-60.0 [facility] Comment on above: Performed By: #### C BC #### [facility] [address] [place] [address] Dr. Bella Jerome MANUAL DIFF REQ NO Normal [facility] Comment on above: Performed By: #### C BC #### [facility] [address] [place] [address] Dr. Bella Jerome MCH (RBC) [Entitic mass] 30.9 pg Normal 26.7-34.0 [facility] Comment on above: Performed By: #### C BC #### [facility] [address] [place] [address] Dr. Bella Jerome MCHC (RBC) [Mass/Vol] 33.6 g/dL Normal 29.9-35.2 The [facility] Comment on above: Performed By: #### C BC #### [facility] [address] [place] [address] Dr. Bella Jerome MCV (RBC) [Entitic vol] 91.9 fL Normal 81.0-99.0 [facility] Comment on above: Performed By: #### C BC #### [facility] [address] [place] [address] Dr. Bella Jerome MONO # 0.4 103/ul Normal 0.3-0.8 [facility] Comment on above: Performed By: #### C BC #### [facility] [address] [place] [address] Dr. Bella Jerome Monocytes/100 WBC (Bld) 5.1 % Normal 1.7-12.0 The [facility] Comment on above: Performed By: #### C BC #### [facility] [address] [place] [address] Dr. Bella Jerome NEUT # 4.0 103/ul Normal 1.4-6.5 The [facility] Comment on above: Performed By: #### C BC #### [facility] [address] [place] [address] Dr. Bella Jerome Neutrophils/100 WBC (Bld) 58.6 % Normal 43.0-75.0 [facility] Comment on above: Performed By: #### C BC #### [facility] [address] [address] [address] Bella Jerome Platelet mean volume (Bld) [Entitic vol] 11.5 fL Normal 9.5-13.5 [facility] Comment on above: Performed By: #### C BC #### [facility] [address] [address] [address] Bella Jerome PLT 243 103/ul Normal 150-450 The [facility] Comment on above: Performed By: #### C BC #### [facility] [address] [address] [address] Bella Jerome RBC 4.05 106/ul Critically low 4.20-5.40 [facility] Comment on above: Performed By: #### C BC #### [facility] [address] [address] [address] Bella Jerome WBC 6.8 103/ul Normal 4.0-11.0 [facility] Comment on above: Performed By: #### C BC #### [facility] [address] [address] [address] Bella Jerome FREE T4on 12-26-2022 Free T4 [Mass/Vol] 1.05 ng/dL Normal 0.76-1.46 [facility] Comment on above: Performed By: #### F T4, VITAD, B12FOL, IRON ####[facility] [id number] [place], [place] [address]PhDr. Bella Jerome GLYCOHEMOGLOBIN A1Con 2022 ADA RECOMMENDATION SEE BELOW Normal [facility] Comment on above: Result Comment: ADA RECOMMENDED LIMIT 4.0 - 6.0 ADA THERAPEUTIC TARGET < 7.0 ACTION SUGGESTED > 7.0 Performed By: #### A 1C #### [facility] [address] [id number] [address] Bella Jerome Glucose [Mass/Vol] 103 mg/dL Normal [facility] Comment on above: Performed By: #### A 1C #### [facility] [address] [address] [address] Bella Jerome HbA1c (Bld) [Mass fraction] 5.2 % Normal 4.5-6.2 [facility] Comment on above: Performed By: #### A 1C #### [facility] [address] [address] [address] Bella Jerome IRONon 12-26-2022 Iron [Mass/Vol] 74.0 ug/dL Normal 50.0-170.0 [facility] Comment on above: Performed By: #### F T4, VITAD, B12FOL, IRON ####[facility] [id number] [place], [place] [address]IoDr. Bella Jerome LIPID PROFILEon 12-26-2022 CHOL-HDL RATIO NORM SEE BELOW Normal [facility] Comment on above: Result Comment: 3.3 - 4.4 LOW RISK 4.4 - 7.1 AVERAGE RISK 7.1 - 11.0 MODERATE RISK >11.0 HIGH RISK Performed By: #### C MP, TSH, LIPID #### [facility] [address] [address] [address] Bella Jerome Cholesterol [Mass/Vol] 153 mg/dL Normal <=200 [facility] Comment on above: Performed By: #### C MP, TSH, LIPID #### [facility] [address] [address] [address] Bella Jerome Cholesterol in HDL [Mass/Vol] 67 mg/dL Critically high 40-60 [facility] Comment on above: Performed By: #### C MP, TSH, LIPID #### [facility] [address] [address] [address] Bella Jerome Cholesterol in LDL [Mass/Vol] 77.2 mg/dL Normal [facility] Comment on above: Performed By: #### C MP, TSH, LIPID #### [facility] [address] [address] [address] Bella Jerome Cholesterol.total/Ch olesterol in HDL [Mass ratio] 2.3 {ratio} Normal [facility] Comment on above: Performed By: #### C MP, TSH, LIPID #### [facility] [address] [address] [address] Bella Jerome HDL NORMAL > or = 60 mg/dl - LOW CARDIOVASCULAR RISK <40 mg/dl - HIGH CARDIOVASCULAR RISK Normal [facility] Comment on above: Performed By: #### C MP, TSH, LIPID #### [facility] [address] [address] [address] Bella Jerome LDL CALC NORMAL SEE BELOW Normal [facility] Comment on above: Result Comment: <100 mg/dl OPTIMAL 100 - 129 mg/dl NEAR OR ABOVE OPTIMAL 130 - 159 mg/dl BORDERLINE HIGH 160 - 189 mg/dl HIGH >190 mg/dl VERY HIGH Performed By: #### C MP, TSH, LIPID #### [facility] [address] [address] [address] Bella Jerome Triglyceride [Mass/Vol] 44 mg/dL Normal <=150 [facility] Comment on above: Performed By: #### C MP, TSH, LIPID #### [facility] [address] [address] [address] Bella Jerome VLDL CALC 8.8 mg/dL Normal [facility] Comment on above: Performed By: #### C MP, TSH, LIPID #### [facility] [address] [address] [address] Bella Jerome MICROALB CREAT RATIO RANDOMo n 12-26-2022 mALB 2.3 mg/L Normal <=30.0 [facility] Comment on above: Performed By: #### H H #### [facility] [address] [address] [address] Bella Jerome MALB CR RATIO 17.4 mg/g Normal 0.0-29.9 [facility] Comment on above: Performed By: #### H H #### [facility] [address] [address] [address] Bella Jerome MALB CR RATIO RANGE SEE BELOW Normal [facility] Comment on above: Result Comment: NO M ICROALBUMINURIA 0-29 MG/G CLINICAL MICROALBUMINURIA 30-300 MG/G MACROALBUMINURIA >300 MG/G Performed By: #### H H #### [facility] [address] [address] [address] Bella Jerome URINE CREAT 131.90 mg/dL Normal 20.00-300.00 [facility] Comment on above: Performed By: #### H H #### [facility] [address] [address] [address] Bella Jerome PROF 14(COMP METB)on 023 Albumin [Mass/Vol] 4.1 g/dL Normal 3.4-5.0 [facility] Comment on above: Performed By: #### C MP, TSH, LIPID #### [facility] [address] [address] [address] Bella Jerome Albumin/Globulin [Mass ratio] 1.3 {ratio} Normal [facility] Comment on above: Performed By: #### C MP, TSH, LIPID #### [facility] [address] [address] [address] Bella Jerome ALP [Catalytic activity/Vol] 124 U/L Critically high 46-116 [facility] Comment on above: Performed By: #### C MP, TSH, LIPID #### [facility] [address] [address] [address] Bella Jerome ALT [Catalytic activity/Vol] 16 U/L Normal 14-59 [facility] Comment on above: Performed By: #### C MP, TSH, LIPID #### [facility] [address] [address] [address] Bella Jerome Anion gap [Moles/Vol] 13.4 mmol/L Normal [facility] Comment on above: Performed By: #### C MP, TSH, LIPID #### [facility] [address] [address] [address] Bella Jerome AST [Catalytic activity/Vol] 17 U/L Normal 15-37 [facility] Comment on above: Performed By: #### C MP, TSH, LIPID #### [facility] [address] [address] [address] Bella Jerome Bilirubin [Mass/Vol] 0.8 mg/dL Normal 0.2-1.0 [facility] Comment on above: Performed By: #### C MP, TSH, LIPID #### [facility] [address] [address] [address] Bella Jerome Calcium [Mass/Vol] 8.9 mg/dL Normal 8.5-10.1 [facility] Comment on above: Performed By: #### C MP, TSH, LIPID #### [facility] [address] [address] [address] Bella Jerome Chloride [Moles/Vol] 103 mmol/L Normal 98-107 [facility] Comment on above: Performed By: #### C MP, TSH, LIPID #### [facility] [address] [address] [address] Bella Jerome CO2 [Moles/Vol] 25.6 mmol/L Normal 21.0-32.0 [facility] Comment on above: Performed By: #### C MP, TSH, LIPID #### [facility] [address] [place] [address] Dr. Bella Jerome Creatinine [Mass/Vol] 0.55 mg/dL Normal 0.55-1.02 [facility] Comment on above: Performed By: #### C MP, TSH, LIPID #### [facility] [address] [place] [address] Dr. Bella Jerome EGFR-AF VINCENTIAN >60 Normal >=[address] [facility] Comment on above: Performed By: #### C MP, TSH, LIPID #### [facility] [address] [place] [address] Dr. Bella Jerome EGFR-NON AF VINCENTIAN >60 Normal >=60 [facility] Comment on above: Performed By: #### C MP, TSH, LIPID #### [facility] [address] [address] [address] Bella Jerome Globulin (S) [Mass/Vol] 3.1 g/dL Normal [facility] Comment on above: Performed By: #### C MP, TSH, LIPID #### [facility] [address] [address] [address] Bella Jerome Glucose [Mass/Vol] 82 mg/dL Normal 74-106 [facility] Comment on above: Performed By: #### C MP, TSH, LIPID #### [facility] [address] [address] [address] Bella Jerome Potassium [Moles/Vol] 4.0 mmol/L Normal 3.5-5.1 [facility] Comment on above: Performed By: #### C MP, TSH, LIPID #### [facility] [address] [place] [address] Dr. Bella Jerome Protein [Mass/Vol] 7.2 g/dL Normal 6.4-8.2 [facility] Comment on above: Performed By: #### C MP, TSH, LIPID #### [facility] [address] [place] [address] Dr. Bella Jerome Sodium [Moles/Vol] 138 mmol/L Normal 136-145 [facility] Comment on above: Performed By: #### C MP, TSH, LIPID #### [facility] [address] [place] [address] Dr. Bella Jerome Urea nitrogen [Mass/Vol] 14.0 mg/dL Normal 7.0-18.0 [facility] Comment on above: Performed By: #### C MP, TSH, LIPID #### [facility] [address] [place] [address] Dr. Bella Jerome Urea nitrogen/Creatinine [Mass ratio] 25.5 mg/mg Normal [facility] Comment on above: Performed By: #### C MP, TSH, LIPID #### [facility] [address] [place] [address] Dr. Bella Jerome TSHon 12-26-2022 TSH 0.224 uIU/mL Critically low 0.358-3.740 [facility] Comment on above: Performed By: #### C MP, TSH, LIPID #### [facility] [address] [place] [address] Dr. Bella Jerome VIT B12 AND FOLATEon 023 Cobalamin (Vitamin B12) [Mass/Vol] 702.0 pg/mL Normal 193.0-986.0 [facility] Comment on above: Performed By: #### F T4, VITAD, B12FOL, IRON ####[facility] [address] [address]DrWill Jerome FOLATE 25.10 ng/mL Normal 8.60-58.90 [facility] Comment on above: Performed By: #### F T4, VITAD, B12FOL, IRON ####[facility] [address] [address]DrWill Jerome VITAMIN D 25 OHon 12-26-2022 VIT D 25-OH 25.4 ng/mL Normal [facility] Comment on above: Performed By: #### F T4, VITAD, B12FOL, IRON ####[facility] [address] [address]DrWill Jerome VIT D RANGES SEE BELOW Normal [facility] Comment on above: Result Comment: <20 ng/mL Vit D deficient 20 - <30 ng/mL Vit D insufficient 30 - 100 ng/mL Vit D sufficient >100 ng/mL Potential Toxicity Performed By: #### F T4, VITAD, B12FOL, IRON ####[facility] [address] [address]DrWill Jerome PAP ACOG PANEL 2: 23 to 31on 12-18-2022 . . Normal [facility] Comment on above: Performed By: #### C BC #### [facility] [address] [place] [address] Dr. Bella Jerome Age Gdln ACOG Testing - Normal [facility] Comment on above: Performed By: #### C BC #### [facility] [address] [place] [address] Dr. Bella Jerome DIAGNOSIS: Comment Normal [facility] Comment on above: Result Comment: NEGA TIVE FOR INTRAEPITHELIAL LESION OR MALIGNANCY. Performed By: #### C BC #### [facility] [address] [place] [address] Dr. Bella Jerome Methodology: Comment Normal [facility] Comment on above: Result Comment: This liquid based ThinPrep(R) pap test was screened with the use of an image guided system. Performed By: #### C BC #### [facility] [address] [address] [address] Bella Jerome Note: Comment Normal [facility] Comment on above: Result Comment: The Pap smear is a screening test designed to aid in the detection of premalignant and malignant conditions of the uterine cervix. It is not a diagnostic procedure and should not be used as the sole means of detecting cervical cancer. Both false-positive and false-negative reports do occur. . Performed By: #### C BC #### [facility] [address] [address] [address] Bella Jerome Performed by: Comment Normal [facility] Comment on above: Result Comment: Byron Irby, Pupil Personnel Worker (ASCP) Performed By: #### C BC #### [facility] [address] [place] [address] Dr. Bella Jerome Reflex Criteria: Comment Normal [facility] Comment on above: Result Comment: The HPV DNA reflex criteria were not met with this specimen result therefore, no HPV testing was performed. . Performed By: #### C BC #### [facility] [address] [place] [address] Dr. Bella Jerome Specimen adequacy: Comment Normal [facility] Comment on above: Result Comment: Sati sfactory for evaluation. Endocervical and/or squamous metaplastic cells (endocervical component) are present. Performed By: #### C BC #### [facility] [address] [place] [address] Dr. Bella Jerome CBC W MANUAL DIFFon 09-07-20 22 ATYPICAL LYMPH # Normal [facility] Comment on above: Performed By: #### C BCMAN ####[facility] [address] [address]Dr. Bella Jerome ATYPICAL LYMPH % Normal [facility] Comment on above: Performed By: #### C BCMAN ####[facility] [address] [address]Dr. Bella Jerome BAND # 0.2 103/ul Normal 0.0-0.3 [facility] Comment on above: Performed By: #### C BCMAN ####[facility] [address] [id number]. Bella Jerome BAND % 1 % Normal 0-5 The [facility] Comment on above: Performed By: #### C BCRELL ####[facility] [address] [address]Dr. Bella Jerome BASOM # 0.00 103/ul Normal 0.00-0.10 The [facility] Comment on above: Performed By: #### C BCRELL ####[facility] [address] [address]Dr. Bella Jerome BASOM % 0.0 % Critically low 0.2-2.0 [facility] Comment on above: Performed By: #### C BCRELL ####[facility] [address] [address]Dr. Bella Jerome BLAST # Normal The [facility] Comment on above: Performed By: #### C BCRELL ####[facility] [address] [place], [place] [address]Dr. Yiwally Jerome BLAST % Normal The [facility] Comment on above: Performed By: #### C BCRELL ####[facility] [address] [address]Dr. Bella Jerome CORRECTED WBC Normal 4.0-11.0 [facility] Comment on above: Performed By: #### C BCRELL ####[facility] [address] [place], [place] [address]Dr. Bella Jerome EOS # 0.00 103/ul Normal 0.00-0.70 The [facility] Comment on above: Performed By: #### C BCRELL ####[facility] [address] [address] Bella Jerome EOS% 0.0 % Critically low 0.9-7.0 [facility] Comment on above: Performed By: #### C BCRELL ####[facility] [address] [address]Dr. Bella Jerome HCT 30.5 % Critically low 36.0-48.0 [facility] Comment on above: Performed By: #### Jennifer VASQUEZ ####[facility] [address] [place], [place] [address]Ll. Bella Jerome HGB 10.5 g/dl Critically low 12.0-16.0 [facility] Comment on above: Performed By: #### Jeninfer VASQUEZ ####[facility] [address] [place], [place] [address]Mk. Bella Jerome LYMPHM # 2.78 103/ul Normal 1.20-3.80 [facility] Comment on above: Performed By: #### Jennifer VASQUEZ ####[facility] [address] [place], [place] [address]Pa. Bella Jerome LYMPHM% 13.0 % Critically low 20.5-60.0 [facility] Comment on above: Performed By: #### Jennifer VASQUEZ ####[facility] [address] [place], [place] [address]Zh. Bella Jerome MCH 32.8 pg Normal 26.7-34.0 [facility] Comment on above: Performed By: #### Jennifer VASQUEZ ####[facility] [address] [address]Dr[address] Bella Jerome MCHC 34.4 g/dl Normal 29.9-35.2 [facility] Comment on above: Performed By: #### Jennifer VASQUEZ ####[facility] [address] [place], [place] [address]Ud. Bella Jerome MCV 95.3 fL Normal 81.0-99.0 The [facility] Comment on above: Performed By: #### Jennifer VASQUEZ ####[facility] [address] [place], [place] [address]Jr. Bella Jerome METAMYELOCYTE # Normal The [facility] Comment on above: Performed By: #### Jennifer VASQUEZ ####[facility] [address] [place], [place] [address]Il. Bella Jerome METAMYELOCYTE % Normal [facility] Comment on above: Performed By: #### Jennifer VASQUEZ ####[facility] [address] [address]Dr. Bella Jerome MONOM# 2.35 103/ul Critically high 0.30-0.[address] [facility] Comment on above: Performed By: #### C PEDRO ####[facility] [address] [address]Dr. Bella Jerome MONOM% 11.0 % Normal 1.7-12.0 [facility] Comment on above: Performed By: #### C PEDRO ####[facility] [address] [address]Dr. Bella Jerome MPV 11.1 fL Normal 9.5-13.5 [facility] Comment on above: Performed By: #### C PEDRO ####[facility] [address] [address]Dr. Bella Jerome MYELOCYTE # Normal [facility] Comment on above: Performed By: #### C PEDRO ####[facility] [address] [address]Dr. Bella Jerome MYELOCYTE % Normal The [facility] Comment on above: Performed By: #### C PEDRO ####[facility] [address] [address]Dr. Bella Jerome NRBC Normal The [facility] Comment on above: Performed By: #### C PEDRO ####[facility] [address] [address]Dr. Bella Jerome PLT 227 103/ul Normal 150-450 The [facility] Comment on above: Performed By: #### C PEDRO ####[facility] [address] [address]Dr. Bella Jerome RBC 3.20 106/ul Critically low 4.20-5.40 The [facility] Comment on above: Performed By: #### C PEDRO ####[facility] [address] [address]Dr. Bella Jerome RDW 12.8 % Normal 11.0-15.0 [facility] Comment on above: Performed By: #### C PEDRO ####[facility] [address] [address]DrWill Jerome SEG # 16.05 103/ul Critically high 1.40-6.50 [facility] Comment on above: Performed By: #### C BCMAN ####[facility] [address] [address]Dr. Bella Jerome SEG % 75.0 % Normal 43.0-75.0 [facility] Comment on above: Performed By: #### C BCMAN ####[facility] [address] [address]Dr. Bella Jerome WBC 21.4 103/ul Critically high 4.0-11.0 [facility] Comment on above: Performed By: #### C PEDRO ####[facility] [address] [address]Dr. Bella Jerome CBC AUTO DIFFon 09-05-2022 BASO # 0.0 103/ul Normal 0.0-0.1 [facility] Comment on above: Performed By: #### C BC #### [facility] [address] [address] [address] Bella Jerome Basophils/100 WBC (Bld) 0.2 % Normal 0.2-2.0 [facility] Comment on above: Performed By: #### C BC #### [facility] [address] [place] [address] Dr. Bella Jerome EO # 0.1 103/ul Normal 0.0-0.7 [facility] Comment on above: Performed By: #### C BC #### [facility] [address] [address] [address] Bella Jerome Eosinophils/100 WBC (Bld) 0.6 % Critically low 0.9-7.0 [facility] Comment on above: Performed By: #### C BC #### [facility] [address] [place] [address] Dr. Bella Jerome Erythrocyte distribution width (RBC) [Ratio] 12.6 % Normal 11.0-15.0 [facility] Comment on above: Performed By: #### C BC #### [facility] [address] [place] [address] Dr. Bella Jerome Hematocrit (Bld) [Volume fraction] 32.5 % Critically low 36.0-48.0 [facility] Comment on above: Performed By: #### C BC #### [facility] [address] [place] [address] Dr. Bella Jerome Hemoglobin (Bld) [Mass/Vol] 11.1 g/dL Critically low 12.0-16.0 The [facility] Comment on above: Performed By: #### C BC #### [facility] [address] [place] [address] Dr. Bella Jerome IG # 0.14 10e3/ul Critically high 0.00-0.03 [facility] Comment on above: Performed By: #### C BC #### [facility] [address] [place] [address] Dr. Blela Jerome IG % 1.1 % Critically high 0.0-0.5 The [facility] Comment on above: Performed By: #### C BC #### [facility] [address] [place] [address] Dr. Bella Jerome LYMPH # 2.6 103/ul Normal 1.2-3.8 [facility] Comment on above: Performed By: #### C BC #### [facility] [address] [place] [address] Dr. Bella Jerome Lymphocytes/100 WBC (Bld) 20.2 % Critically low 20.5-60.0 [facility] Comment on above: Performed By: #### C BC #### [facility] [address] [place] [address] Dr. Bella Jerome MANUAL DIFF REQ NO Normal [facility] Comment on above: Performed By: #### C BC #### [facility] [address] [place] [address] Dr. Bella Jerome MCH (RBC) [Entitic mass] 32.2 pg Normal 26.7-34.0 [facility] Comment on above: Performed By: #### C BC #### [facility] [address] [place] [address] Dr. Bella Jerome MCHC (RBC) [Mass/Vol] 34.2 g/dL Normal 29.9-35.2 [facility] Comment on above: Performed By: #### C BC #### [facility] [address] [place] [address] Dr. Bella Jerome MCV (RBC) [Entitic vol] 94.2 fL Normal 81.0-99.0 [facility] Comment on above: Performed By: #### C BC #### [facility] [address] [address] [address] Bella Jerome MONO # 0.9 103/ul Critically high 0.3-0.8 [facility] Comment on above: Performed By: #### C BC #### [facility] [address] [place] [address] Dr. Bella Jerome Monocytes/100 WBC (Bld) 7.1 % Normal 1.7-12.0 [facility] Comment on above: Performed By: #### C BC #### [facility] [address] [place] [address] Dr. Bella Jerome NEUT # 8.9 103/ul Critically high 1.4-6.5 [facility] Comment on above: Performed By: #### C BC #### [facility] [address] [place] [address] Dr. Bella Jerome Neutrophils/100 WBC (Bld) 70.8 % Normal 43.0-75.0 [facility] Comment on above: Performed By: #### C BC #### [facility] [address] [place] [address] Dr. Bella Jerome Platelet mean volume (Bld) [Entitic vol] 11.0 fL Normal 9.5-13.5 The [facility] Comment on above: Performed By: #### C BC #### [facility] [address] [place] [address] Dr. Bella Jerome PLT 234 103/ul Normal 150-450 The [facility] Comment on above: Performed By: #### C BC #### [facility] [address] [place] [address] Dr. Bella Jerome RBC 3.45 106/ul Critically low 4.20-5.40 The [facility] Comment on above: Performed By: #### C BC #### [facility] [address] [place], [place] [address] Dr. Bella Jerome WBC 12.6 103/ul Critically high 4.0-11.[address] [facility] Comment on above: Performed By: #### C BC #### [facility] [address] [place], [place] [address] Dr. Bella Jerome Covid-19 PCR (CVDTB)on SARS-CoV-2 (COVID-19) RNA FAVIAN+probe Ql (Unsp spec) Not detected Normal NOT DETECTED The [facility] Comment on above: Result Comment: When diagnostic [...] for this test is supported by the [place] of Health and Human Service's declaration that [...] be used). Performed By: #### C VDTBH ####[facility] [address] [place], [place] [address]QlWill Jerome DRUG SCREEN RAPID (URINE)on 09-05-2022 AMP Negative Normal NEGATIVE The [facility] Comment on above: Performed By: #### D RUGRPD ####[facility] [address] [place], [place] [address]XuWill Jerome BAR Negative Normal NEGATIVE The [facility] Comment on above: Performed By: #### D RUGRPD ####[facility] [address] [id number]. Bella Jerome BUP Negative Normal NEGATIVE The [facility] Comment on above: Performed By: #### D RUGRPD ####[facility] [address] [place], [place] [address]Dr. Bella Jerome BZO Negative Normal NEGATIVE The [facility] Comment on above: Performed By: #### D RUGRPD ####[facility] [address] [place], [place] [address]Dr. Liwally Jerome NGA Negative Normal NEGATIVE The [facility] Comment on above: Performed By: #### D RUGRPD ####[facility] [address] [place], [place] [address]Dr. Bella Jerome CUT-OFFS SEE BELOW Normal The [facility] Comment on above: Result Comment: AMP (Amphetamine): 500ng/mL, BAR (Barbituates): 200 ng/mL, BZO (Benzodiazepines): 150 ng/mL, BUP (Buprenorphine): 10 ng/mL, NGA (Cocaine): 150 ng/mL, mAMP (Methamphetamine): 500 ng/mL, MTD (Methadone): 200 ng/mL, OPI (Opiates): 100 ng/mL, OXY (Oxycodone): 100 ng/mL, PCP (Phencyclidine): 25 ng/mL, PPX (Propoxyphene): 300 ng/mL, THC (Cannabinoids): 50 ng/mL, TCA (Trycyclic Antidepressants): 300 ng/mL Performed By: #### D RUGRPD ####[facility] [address] [place], [place] [address]Dr. Bella Jerome DRUG CUT HEADER DRUG CLASS TEST SYSTEM CUT-OFF CONCENTRATIONS ARE FOLLOWS: Normal The [facility] Comment on above: Performed By: #### D RUGRPD ####[facility] [address] [place], [place] [address]Dr. Bella Jerome mAMP Negative Normal NEGATIVE The [facility] Comment on above: Performed By: #### D RUGRPD ####[facility] [address] [place], [place] [address]Dr. Bella Jerome MTD Negative Normal NEGATIVE The [facility] Comment on above: Performed By: #### D RUGRPD ####[facility] [address] [id number]. Bella Jerome OPI Negative Normal NEGATIVE The [facility] Comment on above: Performed By: #### D RUGRPD ####[facility] [address] [address]Dr. Yiwally Jerome OXY Negative Normal NEGATIVE The [facility] Comment on above: Performed By: #### D RUGRPD ####[facility] [address] [address]Dr. Bella Jerome PCP Negative Normal NEGATIVE The [facility] Comment on above: Performed By: #### D RUGRPD ####[facility] [address] [address]Dr. Bella Jerome PPX Negative Normal NEGATIVE The [facility] Comment on above: Performed By: #### D RUGRPD ####[facility] [address] [address]Dr. Bella Jerome TCA Negative Normal NEGATIVE The [facility] Comment on above: Performed By: #### D RUGRPD ####[facility] [address] [address]Dr. Bella Jerome THC Negative Normal NEGATIVE The [facility] Comment on above: Performed By: #### D RUGRPD ####[facility] [address] [address]Dr. Bella Jerome TYPE AND SCREENon 09-05-2022 TYPE AND SCREEN Negative Normal [facility] Comment on above: Performed By: #### T NS ####[facility] [address] [place], [place] [address]Dr. Bella Jerome US PREG BIOPHY W NON [...] by: MANUELITO GREGG Date: 2022-08-31 17:06 Normal [facility] US PREG GROWTHon 08-30-2022 US PREG GROWTH [...] by: MANUELITO GREGG Date: 2022-08-30 17:59 Normal [facility] US PREG BIOPHY W NON STRESSo n [...] by: MANUELITO GREGG Date: 2022-08-24 17:10 Normal [facility] FREE T4on 08-21-2022 Free T4 [Mass/Vol] 0.90 ng/dL Normal 0.76-1.46 [facility] Comment on above: Performed By: #### C BC #### [facility] [address] [place], [place] [address] Dr. Bella Jerome TSHon 08-21-2022 TSH 1.033 uIU/mL Normal 0.358-3.740 [facility] Comment on above: Performed By: #### H H #### [facility] [id number] Bella Jerome US PREG BIOPHY W [...] MANUELITO GREGG Date: 2022-08-17 18:33 Normal The [facility] GROUP B STREP CULTUREon 07-28 S. agalactiae Ag Ql (Unsp spec) Culture Observations: NEGATIVE FOR GROUP B STREPTOCOCCUS. Normal The The [facility] [facility] Comment on above: Performed By: #### G BSCX ####[facility] [id number] [address]Dr. Bella Jerome US PREG BIOPHY W NON [...] by: MANUELITO GREGG Date: 2022-08-10 16:36 Normal [facility] US PREG GROWTHon 08-10-2022 US PREG GROWTH [...] by: MANUELITO GREGG Date: 2022-08-10 16:37 Normal [facility] US PREG GROWTHon 07-25-2022 US PREG GROWTH [...] MANUELITO GREGG Date: 2022-07-25 18:18 Normal The [facility] FREE T4on 07-24-2022 Free T4 [Mass/Vol] 0.98 ng/dL Normal 0.76-1.46 [facility] Comment on above: Performed By: #### F T4 #### [facility] [address] [address] [address] Bella Jerome TSHon 07-24-2022 TSH 1.196 uIU/mL Normal 0.358-3.740 [facility] Comment on above: Performed By: #### T SH ####[facility] [id number] [address]Dr. Bella Jerome UA (CLEAN/CATCH) AIRCRAFT MAINTENANCE TECHNICIAN/MICRO I F IND.on 07-20-2022 Bilirubin Ql (U) Negative Normal NEGATIVE [facility] Comment on above: Performed By: #### H H #### [facility] [address] [place] [address] Dr. Bella Jerome Clarity (U) CLEAR Normal CLEAR [facility] Comment on above: Performed By: #### H H #### [facility] [address] [place] [address] Dr. Bella Jerome Color (U) LT. YELLOW Normal YELLOW [facility] Comment on above: Performed By: #### H H #### [facility] [address] [place] [address] Dr. Bella Jerome Glucose Ql (U) Negative Normal NEGATIVE [facility] Comment on above: Performed By: #### H H #### [facility] [address] [address] [address] Bella Jerome Hemoglobin Ql (U) Negative Normal NEGATIVE The [facility] Comment on above: Performed By: #### H H #### [facility] [address] [place] [address] Dr. Bella Jerome Ketones Ql (U) Negative Normal NEGATIVE [facility] Comment on above: Performed By: #### H H #### [facility] [address] [place] [address] Dr. Bella Jerome LEUKOCYTES Negative Normal NEGATIVE [facility] Comment on above: Performed By: #### H H #### [facility] [address] [place] [address] Dr. Bella Jerome Nitrite Ql (U) Negative Normal NEGATIVE [facility] Comment on above: Performed By: #### H H #### [facility] [address] [place] [address] Dr. Bella Jerome pH (U) 7.0 [pH] Normal 5-9 [facility] Comment on above: Performed By: #### H H #### [facility] [address] [place] [address] Dr. Bella Jerome SPEC GRAVITY <=1.005 Abnormal 1.005-<=1.025 [facility] Comment on above: Performed By: #### H H #### [facility] [address] [place] [address] Dr. Bella Jerome UA PROTEIN Negative Normal NEGATIVE/ TRACE The [facility] Comment on above: Performed By: #### H H #### [facility] [address] [place] [address] Dr. Bella Jerome UR MICRO IND NOT INDICATED Normal The [facility] Comment on above: Performed By: #### H H #### [facility] [address] [place] [address] Dr. Bella Jerome Urobilinogen Qn (U) 0.2 {Kimberlee'U}/dL Normal 0.2 - 1. 0 [facility] Comment on above: Performed By: #### H H #### [facility] [address] [place] [address] Dr. Bella Jerome US PREG GROWTHon 06-27-2022 [...] by: RAGINI SANTOS Date: 2022-06-27 16:23 Normal [facility] FREE T4on 06-20-2022 Free T4 [Mass/Vol] 0.82 ng/dL Normal 0.76-1.46 [facility] Comment on above: Performed By: #### H H #### [facility] [address] [place] [address] Dr. Bella Jerome GLUCOSE - 1HRon 06-20-2022 Glucose [Mass/Vol] 127 mg/dL Critically high 74-106 T [facility] Comment on above: Performed By: #### H H #### [facility] [address] [address] [address] Bella Jerome HEMOGRAM AND PLATELon 2021 Hematocrit (Bld) [Volume fraction] 32.4 % Critically low 36.0-48.0 [facility] Comment on above: Performed By: #### H H #### [facility] [address] [place] [address] Dr. Bella Jerome Hemoglobin (Bld) [Mass/Vol] 10.9 g/dL Critically low 12.0-16.0 [facility] Comment on above: Performed By: #### H H #### [facility] [address] [place] [address] Dr. Bella Jerome MCH (RBC) [Entitic mass] 32.9 pg Normal 26.7-34.0 [facility] Comment on above: Performed By: #### H H #### [facility] [address] [place] [address] Dr. Bella Jerome MCHC (RBC) [Mass/Vol] 33.6 g/dL Normal 29.9-35.2 The [facility] Comment on above: Performed By: #### H H #### [facility] [address] [place] [address] Dr. Bella Jerome MCV (RBC) [Entitic vol] 97.9 fL Normal 81.0-99.0 [facility] Comment on above: Performed By: #### H H #### [facility] [address] [address] [address] Bella Jerome PLT 241 103/ul Normal 150-450 The [facility] Comment on above: Performed By: #### H H #### [facility] [address] [address] [address] Bella Jerome RBC 3.31 106/ul Critically low 4.20-5.40 The [facility] Comment on above: Performed By: #### H H #### [facility] [address] [address] [address] Bella Jerome WBC 11.3 103/ul Critically high 4.0-11.[address] [facility] Comment on above: Performed By: #### H H #### [facility] [address] [place] [address] Dr. Bella Jerome TSHon 06-20-2022 TSH 3.044 uIU/mL Normal 0.358-3.740 The [facility] Comment on above: Performed By: #### C BC #### [facility] [address] [place] [address] Dr. Bella Jerome US PREG INCOMPLETE ANATOMYon 05-24-2022 US PREG INCOMPLETE ANATOMY EXAMINATION: US PREG INCOMPLETE ANATOMY HISTORY: screening COMPARISON: Ultrasound anatomy 04/26/2022 FINDINGS: Presentation: Cephalic Heart rate: 154 bpm Anatomy: Cervical, thoracic, and lumbar spine HERNANDO: 09/13/2022 IMPRESSION: 1. Adequate visualization of the cervical, thoracic, and lumbar spine; no appreciable abnormality. Electronically authenticated by: RAGINI SANTOS Date: 2022-05-24 17:33 Normal The [facility] US PREG ANATOMY SINGLEon US PREG ANATOMY [...] MANUELITO GREGG Date: 2022-04-26 16:54 Normal The [facility] CHLAMYDIA/GONOCOCCUS FAVIAN (SW AB/URINE/PAPon 04-19-2022 Chlamydia trachomatis, FAVIAN Negative Normal Negative The [facility] Comment on above: Performed By: #### C T/NGNA ####[facility] [id number] [address]DrWill Jerome Neisseria gonorrhoeae, FAVIAN Negative Normal Negative The [facility] Comment on above: Performed By: #### C T/NGNA ####[facility] [id number] [address]Dr. Bella Jerome VAGINITIS/VAGINOSIS DNA PROB Leonid 04-18-2022 Jessica species Negative Normal Negative The [facility] Comment on above: Performed By: #### H H #### [facility] [address] [place] [address] Dr. Bella Jerome Gardnerella vaginalis Negative Normal Negative [facility] Comment on above: Performed By: #### H H #### [facility] [address] [place] [address] Dr. Bella Jerome Trichomonas vaginalis Negative Normal Negative [facility] Comment on above: Performed By: #### H H #### [facility] [address] [place] [address] Dr. Bella Jerome FREE T4on 04-05-2022 Free T4 [Mass/Vol] 0.88 ng/dL Normal 0.76-1.46 The [facility] Comment on above: Performed By: #### F T4 #### [facility] [address] [place] [address] Dr. Bella Jerome TSHon 04-05-2022 TSH 1.786 uIU/mL Normal 0.358-3.740 The [facility] Comment on above: Performed By: #### T SH ####[facility] [id number] [place], [place] [address]Dr. Bella Jerome TSH RANGE SEE BELOW Normal The [facility] Comment on above: Result Comment: <0.3 4 UIU/ml HYPERTHYROID 0.34-5.60 UIU/ml EUTHYROID >5.60 UIU/ml HYPOTHYROID Performed By: #### T SH ####[facility] [id number] [address]Dr. Bella Jerome FREE T4on 02-26-2022 Free T4 [Mass/Vol] 1.06 ng/dL Normal 0.76-1.46 The [facility] Comment on above: Performed By: #### C BC #### [facility] [address] [place] [address] Dr. Bella Jerome TSHon 02-26-2022 TSH 2.024 uIU/mL Normal 0.470-4.680 The [facility] Comment on above: Performed By: #### C BC #### [facility] [address] [place], [place] [address] Dr. Bella Jerome TSH RANGE SEE BELOW Normal The [facility] Comment on above: Result Comment: <0.3 4 UIU/ml HYPERTHYROID 0.34-5.60 UIU/ml EUTHYROID >5.60 UIU/ml HYPOTHYROID Performed By: #### C BC #### [facility] [address] [place], [place] [address] Dr. Bella Jerome Vital Signs Date Time Vital Sign Value Performing Clinician Facility 09-01-2024 14:03-0500 Body mass index (BMI) [Ratio] 44.25 kg/m2 Edgar Marquita DO Work Phone: [facility] 09-01-2024 14:03-0500 Body weight 113.31 kg Edgar Marquita DO Work Phone: [facility] 09-01-2024 14:03-0500 Diastolic blood pressure 78 mm[Hg] Edgar Marquita DO Work Phone: [facility] 09-01-2024 14:03-0500 Systolic blood pressure 120 mm[Hg] Edgar Marquita DO Work Phone: [facility] 08-18-2024 13:50-0400 Body mass index (BMI) [Ratio] 43.54 kg/m2 Edgar Marquita DO Work Phone: [facility] 08-18-2024 13:50-0400 Body weight 111.49 kg Edgar Marquita DO Work Phone: [facility] 08-18-2024 13:50-0400 Diastolic blood pressure 74 mm[Hg] Edgar Marquita DO Work Phone: [facility] 08-18-2024 13:50-0400 Systolic blood pressure 118 mm[Hg] Edgar Marquita DO Work Phone: [facility] 08-04-2024 13:30-0400 Body mass index (BMI) [Ratio] 44.37 kg/m2 Marylou CARBAJAL Work Phone: [facility] 08-04-2024 13:30-0400 Body weight 113.63 kg Marylou Priest SOLOMON Work Phone: [facility] 08-04-2024 13:30-0400 Diastolic blood pressure 78 mm[Hg] Marylou Priest PA Work Phone: [facility] 08-04-2024 13:30-0400 Systolic blood pressure 128 mm[Hg] Marylou Priest SOLOMON Work Phone: [facility] 02-13-2024 11:24-0400 Body height 160.02 cm [facility] 02-13-2024 11:24-0400 Body mass index (BMI) [Ratio] 42.3 kg/m2 [facility] 02-13-2024 11:24-0400 Body weight 108.49 kg [facility] 02-13-2024 11:24-0400 Diastolic blood pressure 70 mm[Hg] [facility] 02-13-2024 11:24-0400 Heart rate 69 /min [facility] 02-13-2024 11:24-0400 Respiratory rate 18 /min [facility] 02-13-2024 11:24-0400 SaO2% (BldA) [Mass fraction] 98 % [facility] 02-13-2024 11:24-0400 Systolic blood pressure 118 mm[Hg] [facility] 10-31-2023 15:00-0500 Body height 160.02 cm Sandra Austin Other [facility] [employer] Other 10-31-2023 15:00-0500 Body mass index (BMI) [Ratio] 45.41 kg/m2 Sandra Austin Other [facility] [employer] Other 10-31-2023 15:00-0500 Body temperature 98.5 [degF] Sandra Austin Other [facility] [employer] Other 10-31-2023 15:00-0500 Body weight 116.3 kg Sandra Geovanna Other [facility] Other 10-31-2023 15:00-0500 Diastolic blood pressure 80 mm[Hg] Sandra Geovanna Other [facility] Other 10-31-2023 15:00-0500 Respiratory rate 18 /min Sandra Geovanna Other [facility] Other 10-31-2023 15:00-0500 SaO2% (BldA) [Mass fraction] 98 % Sandra Geovanna Other [facility] Other 10-31-2023 15:00-0500 Systolic blood pressure 128 mm[Hg] Sandra Austin Other [facility] Other 06-24-2023 14:30-0400 Body height 160.02 cm Sandra Pendletonaldo Other [facility] Other 06-24-2023 14:30-0400 Body mass index (BMI) [Ratio] 44.87 kg/m2 Sandra Geovanna Other [facility] Other 06-24-2023 14:30-0400 Body weight 114.9 kg Sandra Geovanna Other [facility] Other 06-24-2023 14:30-0400 Diastolic blood pressure 60 mm[Hg] Sandra Geovanna Other [facility] Other 06-24-2023 14:30-0400 Respiratory rate 18 /min Sandra Austin Other [facility] Other 06-24-2023 14:30-0400 SaO2% (BldA) [Mass fraction] 99 % Sandra Austin Other [facility] Other 06-24-2023 14:30-0400 Systolic blood pressure 110 mm[Hg] Sandra Austin Other [facility] Other 04-15-2023 09:25-0400 Body height 160.02 cm Ramonita Greenberg Other [facility] Other 04-15-2023 09:25-0400 Body mass index (BMI) [Ratio] 41.8 kg/m2 Ramonita Yari Other [facility] Other 04-15-2023 09:25-0400 Body temperature 98.5 [degF] Ramonita Hornmond Other [facility] Other 04-15-2023 09:25-0400 Body weight 107.05 kg Ramonita Hornmond Other [facility] Other 04-15-2023 09:25-0400 Respiratory rate 18 /min Ramonita Hornmond Other [facility] Other 04-15-2023 09:25-0400 SaO2% (BldA) [Mass fraction] 97 % Ramonita Hornmond Other [facility] Other 02-21-2023 14:45-0400 Body height 160.02 cm Sandra Austin Other [facility] Other 02-21-2023 14:45-0400 Body mass index (BMI) [Ratio] 41.39 kg/m2 Sandra Austin Other [facility] Other 02-21-2023 14:45-0400 Body weight 106.01 kg Sandra Geovanna Other [facility] Other 02-21-2023 14:45-0400 Diastolic blood pressure 60 mm[Hg] Sandra Austin Other [facility] Other 02-21-2023 14:45-0400 Respiratory rate 18 /min Sandra Austin Other [facility] Other 02-21-2023 14:45-0400 SaO2% (BldA) [Mass fraction] 98 % Sandra Austin Other [facility] Other 02-21-2023 14:45-0400 Systolic blood pressure 110 mm[Hg] Sandra Austin Other [facility] Other 12-24-2022 14:30-0500 Body height 160.02 cm Sandra Austin Other [facility] Other 12-24-2022 14:30-0500 Body mass index (BMI) [Ratio] 40.83 kg/m2 Sandra Austin Other [facility] Other 12-24-2022 14:30-0500 Body weight 104.55 kg Sandra Austin Other [facility] Other 12-24-2022 14:30-0500 Diastolic blood pressure 70 mm[Hg] Sandra Pendletonle Other [facility] Other 12-24-2022 14:30-0500 Respiratory rate 18 /min Sandra Austin Other [facility] Other 12-24-2022 14:30-0500 SaO2% (BldA) [Mass fraction] 99 % Sandra Austin Other [facility] Other 12-24-2022 14:30-0500 Systolic blood pressure 118 mm[Hg] Sandra Austin Other [facility] Other 12-21-2021 16:30-0500 Body height 160.02 cm Sandra Austin Other [facility] Other 12-21-2021 16:30-0500 Body mass index (BMI) [Ratio] 38.58 kg/m2 Sandra Austin Other [facility] Other 12-21-2021 16:30-0500 Body temperature 97.3 [degF] Sandra Austin Other [facility] Other 12-21-2021 16:30-0500 Body weight 98.79 kg Sandra Austin Other [facility] Other 12-21-2021 16:30-0500 Diastolic blood pressure 60 mm[Hg] Sandra Austin Other [facility] Other 12-21-2021 16:30-0500 Respiratory rate 18 /min Sandra Austin Other [facility] Other 12-21-2021 16:30-0500 SaO2% (BldA) [Mass fraction] 99 % Sandra Austin Other [facility] Other 12-21-2021 16:30-0500 Systolic blood pressure 118 mm[Hg] Sandra Austin Other [facility] [employer] Other Encounters Encounter Date Encounter Type Care Provider Facility Start: 09-08-2024 End: 09-08-2024 ambulatory EDGAR MARQUITA Not Available Start: 09-01-2024 End: 09-01-2024 Bamboo flowsheet Edgar Marquita DO Work Phone: [facility] Start: 09-01-2024 End: 09-01-2024 Bamboo flowsheet Edgar Marquita DO Work Phone: [facility] Start: 09-01-2024 End: 09-01-2024 flow sheet Edgar Marquita DO Work Phone: [facility] Comment on above: 36 weeks gestation o f ; Third trimester Start: 09-01-2024 End: 09-01-2024 ambulatory EDGAR MARQUITA Not Available Start: 08-29-2024 End: 08-29-2024 Clinisync Result Encounter Edgar Marquita DO Work Phone: [facility] Unsolicited Start: 08-29-2024 End: 08-29-2024 Clinisync Result Encounter Edgar Marquita DO Work Phone: [facility] Unsolicited Start: 08-18-2024 End: 08-18-2024 Bamboo flowsheet Edgar Marquita DO Work Phone: [facility] Start: 08-18-2024 End: 08-18-2024 Bamboo flowsheet Edgar Marquita DO Work Phone: [facility] Start: 08-18-2024 End: 08-18-2024 ambulatory EDGAR MARQUITA Not Available Start: 08-18-2024 End: 08-18-2024 flow sheet Edgar Marquita DO Work Phone: [facility] Comment on above: 34 weeks gestation o f ; Nausea and vomiting, unspecified vomiting type; Gastroesophageal reflux disease, unspecified whether esophagitis present; Heartburn during in third trimester Start: 08-04-2024 End: 08-04-2024 Bamboo flowsheet Marylou CARBAJAL Work Phone: [facility] Start: 08-04-2024 End: 08-04-2024 Bamboo flowsheet Marylou CARBAJAL Work Phone: [facility] Start: 08-04-2024 End: 08-04-2024 ambulatory MARYLOU NAJEL Not Available Start: 08-04-2024 End: 08-04-2024 flow sheet Marylou CARBAJAL Work Phone: [facility] Comment on above: 32 weeks gestation o f ; Third trimester ; Anxiety, generalized (CMS/HCC) Start: 07-21-2024 End: 07-21-2024 ambulatory EDGAR MARQUITA Not Available Start: 07-07-2024 End: 07-07-2024 ambulatory EDGAR MARQUITA Not Available Start: 2024 End: 2024 ambulatory EDGAR MARQUITA Not Available Start: 05-12-2024 End: 05-12-2024 ambulatory MARYLOU ANJEL Not Available Start: 04-16-2024 End: 04-16-2024 ambulatory EDGAR MARQUITA Not Available Start: 03-17-2024 End: 03-17-2024 ambulatory EDGAR MARQUITA Not Available Start: 02-14-2024 End: 02-14-2024 ambulatory EDGAR MARQUITA Not Available Start: 02-13-2024 End: 02-13-2024 ambulatory [facility] Work Phone: Start: 02-13-2024 End: 02-13-2024 Patient encounter procedure [facility] Work Phone: Start: 12-16-2023 Non-patient / Non-visit [facility] [employer] Work Phone: Start: 12-16-2023 End: 12-16-2023 ambulatory EDGAR MARQUITA Not Available Start: 10-31-2023 End: 10-31-2023 ambulatory Sandra Keerthile Other [facility] Other Start: 10-31-2023 Office outpatient vi sit 25 minutes Sandra Pendletonle [facility] Start: 07-19-2023 End: 07-19-2023 ambulatory Sandra Kaple Other [facility] Other Start: 07-19-2023 Telephone encounter Sandra Keerthile [facility] Start: 06-24-2023 End: 06-24-2023 ambulatory Sandra Kaple Other [facility] Other Start: 06-24-2023 Office outpatient vi sit 25 minutes Sandra Austin [facility] [place] Start: 06-04-2023 End: 06-04-2023 ambulatory Sandra Geovanna Other [facility] Other Start: 06-04-2023 Telephone encounter Sandra Keerthile [facility] Start: 04-15-2023 End: 04-15-2023 ambulatory Ramonita Greenberg Other [facility] Other Start: 04-15-2023 Office outpatient vi sit 15 minutes Ramonita Greenberg [facility] Start: 04-11-2023 End: 04-11-2023 ambulatory Sandra Keerthile Other [facility] Other Start: 04-11-2023 Telephone encounter Sandra Keerthile [facility] Start: 02-21-2023 Office outpatient vi sit 25 minutes Sandra Pendletonle [facility] [place] Start: 02-21-2023 End: 02-22-2023 ambulatory SANDRA KEERTHILE [facility] [employer] Other Start: 01-04-2023 End: 01-04-2023 ambulatory Sadnra Kaple Other [facility] Other Start: 01-04-2023 Telephone encounter Sandra Guevara [facility] Start: 12-30-2022 Encounter for genera l adult medical examination without abnormal findings SANDRA AUSTIN [facility] Start: 12-27-2022 End: 12-27-2022 ambulatory Sandra Austin Other [facility] Other Start: 12-27-2022 Telephone encounter Sandra Geovanna [facility] Start: 12-26-2022 End: 12-27-2022 ambulatory SANDRA AUSTIN Facility:[facility] Start: 12-26-2022 End: 12-27-2022 Encounter for general adult medical examination without abnormal findings SANDRA AUSTIN Facility:[facility] Start: 12-24-2022 End: 12-24-2022 ambulatory Sandra Austin Other [facility] Other Start: 12-24-2022 Encounter for genera l adult medical examination without abnormal findings Sandra Autsin [facility] [place] Start: 12-24-2022 Periodic preventive med est patient 18-39 yrs Sandra Austin [facility] [place] Start: 12-10-2022 End: 12-10-[address] EDGAR JUÁREZ . Facility:[facility] Start: 09-12-2022 End: 10-11-[address] EDGAR JUÁREZ . Facility:[facility] Start: 09-10-2022 End: 09-10-[address] EDGAR JUÁREZ . Facility:[facility] Start: 09-05-2022 End: 09-08-2022 Evaluation and management of inpatient DR EDGAR JUÁREZ . Facility:[facility] Start: 08-31-2022 End: 08-31-[address] EDGAR JUÁREZ . Facility:[facility] Start: 08-30-2022 End: 08-31-2022 ambulatory SANDRA AUSTIN Facility:[facility] Start: 08-24-2022 End: 08-24-2022 ambulatory SANDRA AUSTIN Facility:[facility] Start: 08-21-2022 End: 08-22-2022 ambulatory SANDRA KAPLE Facility:[facility] Start: 08-17-2022 End: 08-17-2022 ambulatory VIRGINIA TORRES Facility:[facility] Start: 08-15-2022 End: 08-15-[address] EDGAR JUÁREZ . Facility:[facility] Start: 08-10-2022 End: 08-10-2022 [...] 12-21-2021 End: 12-21-2021 ambulatory Sandra Kaple Other [employer] Other Start: 12-21-2021 Office outpatient ne w 45 minutes Sandra Austin [facility] [place] Procedures Date Procedure Procedure Detail Performing Clinician Start: 09-01-2024 Urnls dip stick/tabl et rgnt non-auto w/o micrscp Edgar Marquita DO Work Phone: Start: 08-29-2024 ALL THYROID STIM HORMONE Edgar Marquita DO Work Phone: Start: 08-18-2024 Urnls dip stick/tabl et rgnt non-auto w/o micrscp Edgar Juárez DO Work Phone: Start: 08-04-2024 Urnls dip stick/tabl et rgnt non-auto w/o micrscp Marylou CARBAJAL Work Phone: Start: 09-06-2022 Delivery of Products of Conception, External Approach SANDRA ASUTIN Start: 09-06-2022 Division of Female Perineum, External [...] Visit [facility] [address] [place] [id number] Edgar Juárez, DO [address] [place] [address] [facility] Start: 09-08-2024 End: 09-08-2024 Patient encounter procedure 09/08/2024 10:50 AM EST Routine [facility] [address] [place] [id number] Edgar Juárez, DO [address] [place] [address] [facility] Start: 09-01-2024 End: 09-01-2025 Strep B DNA probe, amplification Strep B DNA probe, amplification Lab Routine Third trimester Expected: 09/01/2024 (Approximate), Expires: 09/01/2025 [facility] Work Phone: Comment on above: Expected: 09/01/2024 (Approximate), Expires: 09/01/2025 Start: 09-01-2024 End: 09-01-2024 Patient encounter procedure [facility] Comment on above: Arrived Start: 08-18-2024 End: 08-18-2024 Patient encounter procedure 08/18/2024 1:30 PM EDT Routine [facility] [address] [address] Edgar Juárez, DO [address] [place] [address] [facility] Start: 08-18-2024 End: 08-18-2024 Professional / ancillary services management 08/18/2024 1:00 PM EDT Ancillary Procedure [facility] [address] [place] [address] [facility] Patient Education Low back pain in adults [facility] Work Phone: Immunizations Immunization Date Immunization Notes Care Provider [facility] 09-08-2022 diphtheria, tetanus toxoids and pertussis vaccine Marylou CARBAJAL Work Phone: [facility] 09-12-2021 pneumococcal conjuga te vaccine, 13 valent Marylou CARBAJAL Work Phone: [facility] 08-14-1999 diphtheria, tetanus toxoids and acellular pertussis vaccine, unspecified formulation Marylou CARBAJAL Work Phone: [facility] 08-14-1999 haemophilus influenz ae type b vaccine, HbOC conjugate Marylou CARBAJAL Work Phone: [facility] 08-14-1999 measles, mumps and rubella virus vaccine Marylou CARBAJAL Work Phone: [facility] 08-14-1999 trivalent poliovirus vaccine, live, oral Marylou CARBAJAL Work Phone: [facility] 04-27-1998 diphtheria, tetanus toxoids and acellular pertussis vaccine, unspecified formulation Marylou CARBAJAL Work Phone: [facility] 04-27-1998 haemophilus influenz ae type b conjugate and Hepatitis B vaccine Marylou Priest SOLOMON Work Phone: [facility] 1997 diphtheria, tetanus toxoids and acellular pertussis vaccine, unspecified formulation Marylou Priest SOLOMON Work Phone: [facility] 1997 haemophilus influenz ae type b vaccine, HbOC conjugate Marylou Anjel PA Work Phone: [facility] 1997 poliovirus vaccine, inactivated Marylou Anjel SOLOMON Work Phone: [facility] 1997 diphtheria, tetanus toxoids and acellular pertussis vaccine, unspecified formulation Marylou Anjel SOLOMON Work Phone: [facility] 1997 haemophilus influenz ae type b conjugate and Hepatitis B vaccine Marylou Vina PA Work Phone: [facility] 1997 poliovirus vaccine, inactivated Marylou Anjel SOLOMON Work Phone: [facility] 1997 hepatitis B vaccine, pediatric or pediatric/adolescent dosage Marylou Priest SOLOMON Work Phone: [facility] Payers Date Payer Category Payer [facility] [employer] [id number] 2023 Unknown [employer] [id number] 2023-Present [address] [place] [address] [id number]. [id number] 2023 Unknown [id number] 2.16.840.1.946405.19 1997 Unknown [id number] 2.16.840.1.458143.3.579.2. 593 1997 Unknown [id number] 2.16.840.1.024050.3.579.2. 593 1997 Unknown [id number] 2.16.840.1.745193.3.579.2. 593 1997 Unknown [id number] 2.16.840.1.897728.3.579.2. 593 1997 Unknown [id number] 2.16.840.1.152136.3.579.2. 593 1997 Unknown [id number] 2.16.840.1.019435.3.579.2. 593 1997 Unknown [id number] 2.16.840.1.337862.3.579.2. 593 1997 Unknown [id number] 2.16.840.1.826873.3.579.2. 593 1997 Unknown [id number] 2.16.840.1.208339.3.579.2. 593 1997 Unknown [id number] 2.16.840.1.547058.3.579.2. 593 1997 Unknown [id number] 2.16.840.1.096828.3.579.2. 593 1997 Unknown [id number] 2.16.840.1.337989.3.579.2. 593 1997 Unknown [id number] 2.16.840.1.008997.3.579.2. 593 1997 Unknown [id number] 2.16.840.1.521026.3.579.2. 593 1997 Unknown [id number] 2.16.840.1.039993.3.579.2. 593 1997 Unknown [id number] 2.16.840.1.511158.3.579.2. 593 1997 Unknown [id number] 2.16.840.1.954229.3.579.2. 593 1997 Unknown [id number] 2.16.840.1.402660.3.579.2. 593 1997 Unknown [id number] 2.16.840.1.557534.3.579.2. 593 1997 Unknown [id number] 2.16.840.1.527542.3.579.2. 593 1997 Unknown [id number] 2.16.840.1.531260.3.579.2. 593 1997 Unknown [id number] 2.16.840.1.425894.3.579.2. 593 1997 Unknown [id number] 2.16.840.1.348094.3.579.2. 593 1997 Unknown [id number] 2.16.840.1.014932.3.579.2. 1258 1997 Unknown [id number] 2.16.840.1.486430.3.579.2. 125 1997 Unknown [id number] 2.16.840.1.806860.3.579.2. 1258 1997 Unknown [id number] 2.16.840.1.090958.3.579.2. 125 1997 Unknown [id number] 2.16.840.1.715820.3.579.2. 1258 1997 Unknown [id number] 2.16.840.1.154034.3.579.2. 9 1997 Unknown [id number] 2.16.840.1.411966.3.579.2. 1259 1997 Unknown [id number] 2.16.840.1.510576.3.579.2. 9 1997 Unknown [id number] 2.16.840.1.636587.3.579.2. 9 1997 Unknown [id number] 2.16.840.1.210651.3.579.2. 1258 1997 Unknown [id number] 2.16.840.1.414872.3.579.2. 1258 1997 Unknown [id number] 2.16.840.1.107718.3.579.2. 9 1957 Medicaid [id number] 2.16.840.1.339683.19 1959 Private Health Insurance [id number] 2.16.840.1.340871.19 Self-pay Self Pay [id number] Unknown [place] [id number] Social History Date Type Detail Facility Start: 08-02-2023 End: 11-25-2023 Sex Assigned At [facility] [employer] Other Start: 1995 Sex Assigned At [facility] Start: 08-02-2023 [facility] Start: 08-02-2023 [...] illness Narrative Reason for Appointment: Patient ID: Sofia Zepeda is a 29 y.o. female who [...] 4 mg, Oral, Every 6 hours PRN Cpetaspo-Ohe-Wm-FA ( 1 + IRON PO) Take by [...] nursing note reviewed. Exam conducted with a photocomposing keyboard operator present. Vitals: Estimated body mass index is [...] by Keena Broussard LPN on behalf of: Edgar Juárez DO documented in this encounter [facility] 08-18-2024 History of Presen t illness Narrative Patient voiced that she has been sick for the past 1.5 weeks, patient had mild case of Hand/Foot/Mouth. Patient has had a decrease in appetite & down 5 pounds as well as increase in acid reflux. Patient would like to know if Omeprazole could be increased in dosage. --ss Reason for Appointment: Patient ID: Sofia Zepeda is a 29 y.o. female who [...] before breakfast, Do not crush or chew. Ztktlpjt-Oqm-Sk-FA ( 1 + IRON PO) Oral ALLERGIES [...] nursing note reviewed. Exam conducted with a photocomposing keyboard operator present. Vitals: Estimated body mass index is [...] by Keena Broussard LPN on behalf of: Edgar Juárez DO documented in this encounter [facility] 08-04-2024 History of Presen t illness Narrative Reason for Appointment: Patient ID: Sofia Zepeda is a 29 y.o. female who [...] before breakfast, Do not crush or chew. Aknmgcni-Euk-Am-FA ( 1 + IRON PO) Oral ALLERGIES [...] of: SOLOMON Turner documented in this encounter [facility] 10-31-2023 Evaluation note Encounter Date Diagnosis [...] E28.2) She will continue to follow with OB-RUBBER TE[facility] and continue healthy lifestyle changes that she [...] course of antibiotic. Increase fluids and rest. Wzkd-wck-fkelwis antipyretics as needed. Warning signs and symptoms reviewed with patient today. Patient to go immediately to the ER should she experience any of these. Patient to notify office should her symptoms persist and not improve. Patient verbalizes understanding and agrees to treatment plan. [facility] Other 09-22-2023 Evaluation note* Encounter Date Diagnosis Assessment Notes Treatment Notes Treatment Clinical Notes Jun, Vitamin D insufficiency (ICD-10 - E55.9) [facility] Other 08-28-2023 Evaluation note* Encounter Date Diagnosis Assessment Notes Treatment Notes Treatment Clinical Notes May, Prediabetes (ICD-10 - R73.03) Recent lab work reviewed with her from [place]. In office [id number] shows good control with diet and exercise. Will continue current treatment plan. Patient is advised to work on healthy diet choices and appropriate servings, weight control, regular exercise as directed, reduced fat intake, and salt avoidance. Patient voiced understanding of this and agrees to this plan. May, PCOS (polycystic ovarian syndrome) (ICD-10 - E28.2) She will continue to follow with OB-RUBBER TE[facility] and continue healthy lifestyle changes that she [...] ENT today. Specialty notes reviewed as received. [facility] Other 08-08-2023 Evaluation note* Encounter Date Diagnosis Assessment Notes Treatment Notes Treatment Clinical Notes May, Other atopic dermatitis (ICD-10 - L20.89) May, Acute otitis externa of both ears, unspecified type (ICD-10 - H60.503) [facility] Other 06-19-2023 Evaluation note* Encounter Date Diagnosis [...] no improvement in 2 to 3 days [facility] Other 06-15-2023 Evaluation note* Encounter Date Diagnosis Assessment Notes Treatment Notes Treatment Clinical Notes Mar, Anxiety (ICD-10 - F41.9) [facility] Other 04-27-2023 Evaluation note* Encounter Date Diagnosis [...] plan on rechecking this at May appointment. [facility] Other 03-10-2023 Evaluation note* Encounter Date Diagnosis Assessment Notes Treatment Notes Treatment Clinical Notes Dec, Bacterial conjunctivitis (ICD-10 - H10.9) [facility] Other 03-02-2023 Evaluation note* Encounter Date Diagnosis Assessment Notes Treatment Notes Treatment Clinical Notes Dec, Vitamin D insufficiency (ICD-10 - E55.9) Dec, Elevated alkaline phosphatase level (ICD-10 - R74.8) Dec, Other specified hypothyroidism (ICD-10 - E03.8) [facility] Other 02-27-2023 Evaluation note* Encounter Date Diagnosis [...] of this and agrees to this plan. 27 Feb, 2023 Well adult exam (ICD-10 - Z00.00) Routine lab work ordered. Follow routinely with eye doctor, dentist, RUBBER [facility]STER. Patient is advised to work on healthy diet choices and appropriate servings, weight control, regular exercise as directed, reduced fat intake, and salt avoidance. Patient voiced understanding of this and agrees to this plan. Nov, PCOS (polycystic ovarian syndrome) (ICD-10 - E28.2) Routine lab work ordered. She will continue to follow with OB-RUBBER TESTER and continue healthy lifestyle changes that she [...] homicidal ideations. Started on Celexa by her RUBBER TESTER. Very stable on Celexa 20 mg daily. [...] her ears still persist after starting this. [facility] Other 02-24-2022 Evaluation note* Encounter Date Diagnosis Assessment Notes Treatment Notes Treatment Clinical Notes Nov, Prediabetes (ICD-10 - R73.03) She was recently dx with prediabetes and was started on Metformin 500 mg BID 2 weeks ago by her OB-RUBBER TESTER. She would like to follow with our [...] - E28.2) She is following with her OB-RUBBER TESTER for her PCOS and is currently on Metformin 500 mg BID and is taking medication to help her get . She will continue to follow with OB-RUBBER TE[facility] and continue healthy lifestyle changes that she [...] of fatigue, difficulty losing weight by her OB-RUBBER TE[facility]. She would like to start following with [...] of this and agrees to this plan. [facility] Other Evaluation note* Diagnosis Onset Date Resolution Status 8 weeks gestation of acute Low back pain [facility] Work Phone: Evaluation note* Diagnosis [...] THIRD NIPPLE REMOVED Surgical History Colonoscopy-normal 2018 [facility] Other Summary Purpose Family History No Family [...] Right ear pain (H92. 01) Referral Organization [facility] Referring Provider First Name Sandra [...] rangel DATE CREATED AUTHOR AUTHOR'S ORGANIZ ATION 09/10/2024 [facility] EPIC Care Teams (unrecognized [...] February 13, 2024 End: February 13, 2024 [employer] Relationship Specialty Start Date End Date Sandra Austin CHIEF PROCUREMENT OFFICER [address] [place] [address] PCP - General 07/19/23 [employer] Relationship Specialty Start Date End Date Sandra Austin CHIEF PROCUREMENT OFFICER [address] [place] [address] [phone] PCP - General 07/19/23 [employer] Broker Relationship Specialty Start Date End Date Sandra Austin NP [address] [place] [address] PCP - General 07/19/23 [employer]ker Relationship Specialty Start Date End Date Sandra Austin NP [address] [place] [address] PCP - General 07/19/23 [employer]ker Relationship Specialty Start Date End Date Sandra Austin NP [address] [place] [address] PCP - General 07/19/23 [employer]oles[employer] Diamond Broker Relationship Specialty Start Date End Date Sandra Austin CHIEF PROCUREMENT OFFICER [address] [place] [address] PCP - General 07/19/23 Goals (unrecognized section [...] THE PRIMARY CLINICAL RECORDS. [facility] [employer] [facility]. provides no warranty or guarantee of the accuracy or completeness of information in this document.
[2024-09-12 07:40] VITALS: BP 118/79; PULSE 94
== END 2024-09-12 08:01 | disposition home or self-care (01) ==
LOC: FBCO 06:44 → FBC 07:33
PROVIDERS: Visit Provider Obstetrics & Gynecology
DX: O99.283 Endocrine, nutritional and metabolic diseases complicating pregnancy, third trimester (principal)
CPT/HCPCS: 59025

== ENCOUNTER 2024-09-16 07:01 | Outpatient (OUT) | payer OTHER, SELFPAY ==
--- OUTSIDE RECORDS SUMMARY | 2024-09-16 07:04 | XMS_ITS | CCD ---
Author Organization [facility] Care Team Providers Care General Cargo Clerk Name Role Phone [facility] Unavailable KAP, SANDRA Primary Care Unavailable MARQUITA [...] ., DR GOLDSMITH Admitting Unavailable ZIEBER, DR RAGNII Chatterjee Consulting Unavailable KAPLE, SANDRA Primary Care [...] Unavailable MARQUITA ., DR GOLDSMITH Consulting Unavailable MRAQUITA ., DR GOLDSMITH Admitting Unavailable KAPLE, SANDRA [...] DR GOLDSMITH Admitting Unavailable MARQUITA ., DR GOLDMSITH Attending Unavailable KAPLE, SANDRA Primary Care Unavailable MARQUITA ., DR GOLDSMITH Admitting Unavailable MARQUITA ., DR GOLDSMITH Consulting Unavailable VIRGINIA TORRES Consulting Unavailable MARQUITA ., DR GOLDSMITH Procedure Practitioner Unavail able KAPLE, SANDRA Primary Care Unavailable MARQUITA ., DR GOLDSMITH Attending Unavailable MARQUITA ., DR GOLDSMITH Consulting Unavailable MARQUITA ., DR GOLDSMITH Admitting Unavailable SANDRA AUSTIN Primary Care Unavailable LYK ., DR HU Admitting Unavailabl e LYK ., DR HU Attending Unavailabl e KARASIK ., DR HU Consulting Unavailabl e MERIDIAN, DR MANUELITO Foley Consulting Unavailable MARQUITA ., DR GOLDSMITH Consulting Unavailable SANDRA AUSTIN Primary Care Unavailable MARQUITA ., DR GOLDSMITH Attending Unavailable MARYSOL, DR MANUELITO Foley Consulting Unavailable MARQUITA ., DR GOLDSMITH Admitting Unavailable MARQUITA ., DR GOLDSMITH Consulting Unavailable Ramonita Greenberg Unavailable Geovanna JOB PLACEMENT SPECIALIST, Sandra Hall Primary Care Provider [phone] EDGAR JUÁREZ Attending Unavailable MARQUITA, EDGAR Attending Unavailable MARQUITA, EDGAR Attending Unavailable MARYLOU PRIEST Attending Unavailable MARQUITA, EDGAR Attending Unavailable MARQUITA, EDGAR Attending Unavailable MARQUITA, EDGAR Attending Unavailable MARYLOU PRIEST Attending Unavailable MARQUITA, EDGAR Attending Unavailable AMRQUITA, EDGAR Attending Unavailable MARQUITA, EDGAR Attending Unavailable ANJEL, MARYLOU Attending Unavailable Medications Current Medications Medication Drug [...] Refills: 1; Qty: 90 Tablet; Provider: Geovanna Flroes ( ) Start: 02-13-2024 take 1 tablet [...] Serotonin-3 Receptor Antagonist Start: 08-25-20 End: 09-24-20 take 1 tablet by mouth every six [...] hours February 13, 2024 12:00am polymyxin b 18124 unt/ml / trimethoprim 1 mg/ml ophthalmic solution (3 sources) Dihydrofolate Reductase Inhibitor Antibacterial, Polymyxin-class Antibacterial Start: 01-04-2023 Polymyxin B-Trimethoprim 76702-4.1 UNIT/ML 1 drop into affected eye Ophthalmic every 3 hours up to six times daily for 7 days Dec, Active (10 sources) Active Ovrdkmmk-Qwc-Qr-FA ( 1 + IRON PO) (10 sources) Oaplhoca-Eab-Yo-FA ( 1 + IRON PO) Take by [...] acid 7540 MG / polyethylene glycol 3350 61135 MG / potassium chloride 1200 MG / sodium ascorbate 29000 MG / sodium chloride 3200 MG Powder for Oral Solution) / 1 (polyethylene glycol 3350 001977 MG / potassium chloride 1000 MG / [...] UA Negative Negative - 4(70) +++ mg/dL [facility] Blood, UA Negative Negative - 50 Jose Manuel/mcL [facility] Healthcare Clarity, UA Clear [facility] Healthca re Color, UA Yellow [facility] Healthcar e Glucose, UA Negative Negative - 1999(110) ++++ mg/dL [facility] Interpretation and review of laboratory results Abnormal [facility] Ketones, UA Negative Negative - 160(16) ++++ mg/dL [facility] Leukocytes, UA Trace Negative - 500+++ Alexys/mcL [facility] Nitrite, UA Negative Negative - Positive [facility] pH, UA 7 5 - 9 [facility] Healthcar e Protein, UA Negative Negative - 1999(20) ++++ mg/dL [facility] Spec Grav, UA 1.015 1 - 1.03 [facility] Urobilinogen, UA 0.2 0.2 - 12 mg/dL [facility] Healthcar e ALL THYROID STIM HORMONEon 1 10-29-2023 TSH Qn 0.716 m[IU]/L [facility] Healthcar e Urinalysis macro (dipstick) panel (U)on 08-18-2024 Bilirubin, UA Negative Negative - 4(70) +++ mg/dL [facility] Blood, UA Negative Negative - 50 Jose Manuel/mcL [facility] Clarity, UA Clear [facility] Healthca re Color, UA Yellow [facility] Healthcar e Glucose, UA Negative Negative - 1999(110) ++++ mg/dL [facility] Interpretation and review of laboratory results Normal [facility] Ketones, UA Negative Negative - 160(16) ++++ mg/dL [facility] Leukocytes, UA Negative Negative - 500+++ Alexys/mcL [facility] Nitrite, UA Negative Negative - Positive [facility] pH, UA 6.5 5 - 9 [facility] Healthcar e Protein, UA Negative Negative - 1999(20) ++++ mg/dL [facility] Spec Grav, UA 1.01 1 - 1.03 [facility] Urobilinogen, UA 0.2 0.2 - 12 mg/dL [facility] Healthcar e Urinalysis macro (dipstick) panel (U)on 08-04-2024 Bilirubin, UA Negative Negative - 4(70) +++ mg/dL [facility] Blood, UA Negative Negative - 50 Jose Manuel/mcL [facility] Clarity, UA Clear [facility] Healthar re Color, UA Yellow [facility] Healthcar e Glucose, UA Negative Negative - 1999(110) ++++ mg/dL [facility] Interpretation and review of laboratory results Abnormal [facility] Ketones, UA Negative Negative - 160(16) ++++ mg/dL [facility] Leukocytes, UA Trace Negative - 500+++ Alexys/mcL [facility] Nitrite, UA Negative Negative - Positive [facility] pH, UA 7.0 5 - 9 [facility] e Protein, UA Negative Negative - 1999(20) ++++ mg/dL [facility] Spec Grav, UA 1.015 1 - 1.03 [facility] Urobilinogen, UA 0.2 0.2 - 12 mg/dL [facility] Human papilloma virus 16+18+ 31+33+35+39+45+51+52+56+58+59+66+68 DNA [Presence] in Anders 12-16-2023 HPV 16+18+31+33+35+39+45 +51+52+56+58+59+66+6 8 DNA Probe+sig amp Ql (Cvx) Note . [facility] Comment on above: TESTS RESULT FLAG UN ITS REF RANGE LAB DI AGNOSIS: 02 NEGATIVE FOR INTRAEPITHELIAL LESION OR MALIGNANCY.Specimen adequacy: 02 Satisfactory for evaluation. Endocervical and/or squamous metaplastic cells (endocervical component) are present.Performed by: 02 Raeann Duran, Pediatric Nurse ([facility]). 02Note: Note 02 The Pap smear is a screening test designed to aid in the detection of premalignant and malignant conditions of the uterine cervix. It is not a diagnostic procedure and should not be used as the sole means of detecting cervical cancer. Both false-positive and false-negative reports do occur.Test Methodology: Note 02 The Thin Prep(R) Psychological Science Professor was unable to read this specimen. Therefore a manual review was performed. ----- FLAG LEGEND: L-Low Normal,H-High Normal,LL-Alert Low,HH-Alert High <-Panic Low,>-Panic High,A-Abnormal,AA-Critical Abnormal ---Performed at:[address] [id number] Heavenly Serrano MD, . 02 The HPV DNA reflex criteria were not met with this specimen result therefore, no HPV testing was performed.The HPV DNA reflex criteria were not met with this specimenresult therefore, no HPV testing was performed.Performed at: =[address] [id number] Director: Heavenly Serrano MD, Phone: [phone] at: [address] [id number] Director: Heavenly Serrano MD, Phone: [phone] No Panel Informationon 12-16 Reference Lab Test Patient Age Note . [facility] Comment on above: TESTS RESULT FLAG UN ITS REF RANGE LAB Clinician Provided Cytology Information Source.............Cervix No. of containers..01 ThinPrep VialAge Algo ACOG Leslye... FLAG LEGEND: L-Low Normal,H-High Normal,LL-Alert Low,HH-Alert High <-Panic Low,>-Panic High,A-Abnormal,AA-Critical Abnormal ---Performed at:01 [address] [id number] Heavenly Serrano MD, A1C HEMOGLOBINon 10-31-2023 HbA1c (Bld) [Mass fraction] 5.8 % [facility] Other HbA1c (Bld) [Mass fraction]o n 10-31-2023 A1C HEMOGLOBIN [facility] Other A1C HEMOGLOBINon 06-24-2023 HbA1c (Bld) [Mass fraction] 5.2 % [facility] Other HbA1c (Bld) [Mass fraction]o n 06-24-2023 A1C HEMOGLOBIN [facility] Other Quick Strepon 04-15-2023 S. pyogenes Org specific cx Ql (Throat) Positive [facility] Other Quick Strep [facility] Other FREE T4on 02-21-2023 Free T4 [Mass/Vol] 0.89 ng/dL Normal 0.76-1.46 [facility] Comment on above: Performed By: #### H H #### [facility] [address] [place] [address] Dr. Bella Jerome PROF 14(COMP METB)on 023 Albumin [Mass/Vol] 3.7 g/dL Normal 3.4-5.0 [facility] Comment on above: Performed By: #### H H #### [facility] [address] [place] [address] Dr. Bella Jerome Albumin/Globulin [Mass ratio] 0.9 {ratio} Normal [facility] Comment on above: Performed By: #### H H #### [facility] [address] [place] [address] Dr. Bella Jerome ALP [Catalytic activity/Vol] 132 U/L Critically high 46-116 [facility] Comment on above: Performed By: #### H H #### [facility] [address] [place] [address] Dr. Bella Jerome ALT [Catalytic activity/Vol] 32 U/L Normal 14-59 [facility] Comment on above: Performed By: #### H H #### [facility] [address] [place] [address] Dr. Bella Jerome Anion gap [Moles/Vol] 12.8 mmol/L Normal [facility] Comment on above: Performed By: #### H H #### [facility] [address] [place] [address] Dr. Bella Jerome AST [Catalytic activity/Vol] 23 U/L Normal 15-37 [facility] Comment on above: Performed By: #### H H #### [facility] [address] [place] [address] Dr. Bella Jerome Bilirubin [Mass/Vol] 0.6 mg/dL Normal 0.2-1.0 [facility] Comment on above: Performed By: #### H H #### [facility] [address] [place] [address] Dr. Bella Jerome Calcium [Mass/Vol] 9.0 mg/dL Normal 8.5-10.1 [facility] Comment on above: Performed By: #### H H #### [facility] [address] [place] [address] Dr. Bella Jerome Chloride [Moles/Vol] 102 mmol/L Normal 98-107 [facility] Comment on above: Performed By: #### H H #### [facility] [address] [place] [address] Dr. Bella Jerome CO2 [Moles/Vol] 28.2 mmol/L Normal 21.0-32.0 [facility] Comment on above: Performed By: #### H H #### [facility] [address] [place] [address] Dr. Bella Jerome Creatinine [Mass/Vol] 0.67 mg/dL Normal 0.55-1.02 [facility] Comment on above: Performed By: #### H H #### [facility] [address] [address] [address] Bella Jerome EGFR-AF SWAZI >60 Normal >=60 [facility] Comment on above: Performed By: #### H H #### [facility] [address] [place] [address] Dr. Bella Jerome EGFR-NON AF SWAZI >60 Normal >=60 [facility] Comment on above: Performed By: #### H H #### [facility] [address] [place] [address] Dr. Bella Jerome Globulin (S) [Mass/Vol] 4.2 g/dL Normal [facility] Comment on above: Performed By: #### H H #### [facility] [address] [place] [address] Dr. Bella Jerome Glucose [Mass/Vol] 88 mg/dL Normal 74-106 [facility] Comment on above: Performed By: #### H H #### [facility] [address] [place] [address] Dr. Bella Jerome Potassium [Moles/Vol] 4.0 mmol/L Normal 3.5-5.1 [facility] Comment on above: Performed By: #### H H #### [facility] [address] [place] [address] Dr. Bella Jerome Protein [Mass/Vol] 7.9 g/dL Normal 6.4-8.2 [facility] Comment on above: Performed By: #### H H #### [facility] [address] [place] [address] Dr. Bella Jerome Sodium [Moles/Vol] 139 mmol/L Normal 136-145 [facility] Comment on above: Performed By: #### H H #### [facility] [address] [place] [address] Dr. Bella Jerome Urea nitrogen [Mass/Vol] 12.0 mg/dL Normal 7.0-18.0 [facility] Comment on above: Performed By: #### H H #### [facility] [address] [place] [address] Dr. Bella Jerome Urea nitrogen/Creatinine [Mass ratio] 17.9 mg/mg Normal [facility] Comment on above: Performed By: #### H H #### [facility] [address] [place] [address] Dr. Bella Jerome TSHon 02-21-2023 TSH 2.463 uIU/mL Normal 0.358-3.740 [facility] Comment on above: Performed By: #### H H #### [facility] [address] [place] [address] Dr. Bella Jerome VITAMIN D 25 OHon 02-21-2023 VIT D 25-OH 23.1 ng/mL Normal [facility] Comment on above: Performed By: #### H H #### [facility] [address] [place] [address] Dr. Bella Jerome VIT D RANGES SEE BELOW Normal [facility] Comment on above: Result Comment: <20 ng/mL Vit D deficient 20 - <30 ng/mL Vit D insufficient 30 - 100 ng/mL Vit D sufficient >100 ng/mL Potential Toxicity Performed By: #### H H #### [facility] [address] [place] [address] Dr. Bella Jerome CBC AUTO DIFFon 12-26-2022 BASO # 0.0 103/ul Normal 0.0-0.1 [facility] Comment on above: Performed By: #### C BC #### [facility] [address] [place] [address] Dr. Bella Jerome Basophils/100 WBC (Bld) 0.3 % Normal 0.2-2.0 [facility] Comment on above: Performed By: #### C BC #### [facility] [address] [place] [address] Dr. Bella Jerome EO # 0.1 103/ul Normal 0.0-0.7 [facility] Comment on above: Performed By: #### C BC #### [facility] [address] [place] [address] Dr. Bella Jerome Eosinophils/100 WBC (Bld) 1.6 % Normal 0.9-7.0 [facility] Comment on above: Performed By: #### C BC #### [facility] [address] [place] [address] Dr. Bella Jerome Erythrocyte distribution width (RBC) [Ratio] 12.7 % Normal 11.0-15.0 [facility] Comment on above: Performed By: #### C BC #### [facility] [address] [place] [address] Dr. Bella Jerome Hematocrit (Bld) [Volume fraction] 37.2 % Normal 36.0-48.0 [facility] Comment on above: Performed By: #### C BC #### [facility] [address] [place] [address] Dr. Bella Jerome Hemoglobin (Bld) [Mass/Vol] 12.5 g/dL Normal 12.0-16.0 [facility] Comment on above: Performed By: #### C BC #### [facility] [address] [place] [address] Dr. Bella Jerome IG # 0.02 10e3/ul Normal 0.00-0.03 [facility] Comment on above: Performed By: #### C BC #### [facility] [address] [place] [address] Dr. Bella Jerome IG % 0.3 % Normal 0.0-0.5 [facility] Comment on above: Performed By: #### C BC #### [facility] [address] [place] [address] Dr. Bella Jerome LYMPH # 2.3 103/ul Normal 1.2-3.8 [facility] Comment on above: Performed By: #### C BC #### [facility] [address] [place] [address] Dr. Bella Jerome Lymphocytes/100 WBC (Bld) 34.1 % Normal 20.5-60.0 [facility] Comment on above: Performed By: #### C BC #### [facility] [address] [place] [address] Dr. Bella Jerome MANUAL DIFF REQ NO Normal [facility] Comment on above: Performed By: #### C BC #### [facility] [address] [place] [address] Dr. Bella Jerome MCH (RBC) [Entitic mass] 30.9 pg Normal 26.7-34.0 [facility] Comment on above: Performed By: #### C BC #### [facility] [address] [place] [address] Dr. Bella Jerome MCHC (RBC) [Mass/Vol] 33.6 g/dL Normal 29.9-35.2 [facility] Comment on above: Performed By: #### C BC #### [facility] [address] [place] [address] Dr. Bella Jerome MCV (RBC) [Entitic vol] 91.9 fL Normal 81.0-99.0 [facility] Comment on above: Performed By: #### C BC #### [facility] [address] [place] [address] Dr. Bella Jerome MONO # 0.4 103/ul Normal 0.3-0.8 [facility] Comment on above: Performed By: #### C BC #### [facility] [address] [place] [address] Dr. Bella Jerome Monocytes/100 WBC (Bld) 5.1 % Normal 1.7-12.0 [facility] Comment on above: Performed By: #### C BC #### [facility] [address] [place] [address] Dr. Bella Jerome NEUT # 4.0 103/ul Normal 1.4-6.5 [facility] Comment on above: Performed By: #### C BC #### [facility] [address] [place] [address] Dr. Bella Jerome Neutrophils/100 WBC (Bld) 58.6 % Normal 43.0-75.0 [facility] Comment on above: Performed By: #### C BC #### [facility] [address] [id number] Bella Jerome Platelet mean volume (Bld) [Entitic vol] 11.5 fL Normal 9.5-13.5 [facility] Comment on above: Performed By: #### C BC #### [facility] [address] [address] [address] Bella Jerome PLT 243 103/ul Normal 150-450 [facility] Comment on above: Performed By: #### C BC #### [facility] [id number] Bella Jerome RBC 4.05 106/ul Critically low 4.20-5.40 [facility] Comment on above: Performed By: #### C BC #### [facility] [address] [address] [address] Bella Jerome WBC 6.8 103/ul Normal 4.0-11.0 [facility] Comment on above: Performed By: #### C BC #### [facility] [id number] Bella Jerome FREE T4on 12-26-2022 Free T4 [Mass/Vol] 1.05 ng/dL Normal 0.76-1.46 [facility] Comment on above: Performed By: #### F T4, VITAD, B12FOL, IRON ####[facility] [address] [place], [place] [address]UnDr. Bella Jerome GLYCOHEMOGLOBIN A1Con 2022 ADA RECOMMENDATION SEE BELOW Normal [facility] Comment on above: Result Comment: ADA RECOMMENDED LIMIT 4.0 - 6.0 ADA THERAPEUTIC TARGET < 7.0 ACTION SUGGESTED > 7.0 Performed By: #### A 1C #### [facility] [address] [place], [place] [address] Dr. Bella Jerome Glucose [Mass/Vol] 103 mg/dL Normal [facility] Comment on above: Performed By: #### A 1C #### [facility] [address] [address] [address] Bella Jerome HbA1c (Bld) [Mass fraction] 5.2 % Normal 4.5-6.2 [facility] Comment on above: Performed By: #### A 1C #### [facility] [address] [address] [address] Bella Jerome IRONon 12-26-2022 Iron [Mass/Vol] 74.0 ug/dL Normal 50.0-170.0 [facility] Comment on above: Performed By: #### F T4, VITAD, B12FOL, IRON ####[facility] [address] [address] Bella Jerome LIPID PROFILEon 12-26-2022 CHOL-HDL RATIO NORM SEE BELOW Normal [facility] Comment on above: Result Comment: 3.3 - 4.4 LOW RISK 4.4 - 7.1 AVERAGE RISK 7.1 - 11.0 MODERATE RISK >11.0 HIGH RISK Performed By: #### C MP, TSH, LIPID #### [facility] [address] [address] [address] Bella Jerome Cholesterol [Mass/Vol] 153 mg/dL Normal <=200 [facility] Comment on above: Performed By: #### C MP, TSH, LIPID #### [facility] [address] [address] [address] Bella Jerome Cholesterol in HDL [Mass/Vol] 67 mg/dL Critically high 40-60 [facility] Comment on above: Performed By: #### C MP, TSH, LIPID #### [facility] [address] [address] [address] Bella Jerome Cholesterol in LDL [Mass/Vol] 77.2 mg/dL Normal [facility] Comment on above: Performed By: #### C MP, TSH, LIPID #### [facility] [address] [address] [address] Bella Jerome Cholesterol.total/Ch olesterol in HDL [Mass ratio] 2.3 {ratio} Normal [facility] Comment on above: Performed By: #### C MP, TSH, LIPID #### [facility] [address] [address] [address] Bella Jerome HDL NORMAL > or = 60 mg/dl - LOW CARDIOVASCULAR RISK <40 mg/dl - HIGH CARDIOVASCULAR RISK Normal [facility] Comment on above: Performed By: #### C MP, TSH, LIPID #### [facility] [address] [address] [address] Bella Jerome LDL CALC NORMAL SEE BELOW Normal [facility] Comment on above: Result Comment: <100 mg/dl OPTIMAL 100 - 129 mg/dl NEAR OR ABOVE OPTIMAL 130 - 159 mg/dl BORDERLINE HIGH 160 - 189 mg/dl HIGH >190 mg/dl VERY HIGH Performed By: #### C MP, TSH, LIPID #### [facility] [address] [address] [address] Bella Jerome Triglyceride [Mass/Vol] 44 mg/dL Normal <=150 [facility] Comment on above: Performed By: #### C MP, TSH, LIPID #### [facility] [address] [address] [address] Bella Jerome VLDL CALC 8.8 mg/dL Normal [facility] Comment on above: Performed By: #### C MP, TSH, LIPID #### [facility] [address] [address] [address] Bella Jerome MICROALB CREAT RATIO RANDOMo n 12-26-2022 mALB 2.3 mg/L Normal <=30.0 [facility] Comment on above: Performed By: #### H H #### [facility] [address] [address] [address] Bella Jerome MALB CR RATIO 17.4 mg/g Normal 0.0-29.9 [facility] Comment on above: Performed By: #### H H #### [facility] [address] [address] [address] Bella Jerome MALB CR RATIO RANGE SEE BELOW Normal [facility] Comment on above: Result Comment: NO M ICROALBUMINURIA 0-29 MG/G CLINICAL MICROALBUMINURIA 30-300 MG/G MACROALBUMINURIA >300 MG/G Performed By: #### H H #### [facility] [address] [address] [address] Bella Jerome URINE CREAT 131.90 mg/dL Normal 20.00-300.00 [facility] Comment on above: Performed By: #### H H #### [facility] [address] [address] [address] Bella Jerome PROF 14(COMP METB)on 023 Albumin [Mass/Vol] 4.1 g/dL Normal 3.4-5.0 [facility] Comment on above: Performed By: #### C MP, TSH, LIPID #### [facility] [address] [address] [address] Bella Jerome Albumin/Globulin [Mass ratio] 1.3 {ratio} Normal [facility] Comment on above: Performed By: #### C MP, TSH, LIPID #### [facility] [address] [place] [address] Dr. Bella Jerome ALP [Catalytic activity/Vol] 124 U/L Critically high 46-116 [facility] Comment on above: Performed By: #### C MP, TSH, LIPID #### [facility] [address] [place] [address] Dr. Bella Jerome ALT [Catalytic activity/Vol] 16 U/L Normal 14-59 [facility] Comment on above: Performed By: #### C MP, TSH, LIPID #### [facility] [address] [address] [address] Bella Jerome Anion gap [Moles/Vol] 13.4 mmol/L Normal [facility] Comment on above: Performed By: #### C MP, TSH, LIPID #### [facility] [address] [address] [address] Bella Jerome AST [Catalytic activity/Vol] 17 U/L Normal 15-37 [facility] Comment on above: Performed By: #### C MP, TSH, LIPID #### [facility] [address] [place] [address] Dr. Bella Jerome Bilirubin [Mass/Vol] 0.8 mg/dL Normal 0.2-1.0 [facility] Comment on above: Performed By: #### C MP, TSH, LIPID #### [facility] [address] [address] [address] Bella Jerome Calcium [Mass/Vol] 8.9 mg/dL Normal 8.5-10.1 [facility] Comment on above: Performed By: #### C MP, TSH, LIPID #### [facility] [address] [place] [address] Dr. Bella Jerome Chloride [Moles/Vol] 103 mmol/L Normal 98-107 [facility] Comment on above: Performed By: #### C MP, TSH, LIPID #### [facility] [address] [place] [address] Dr. Bella Jerome CO2 [Moles/Vol] 25.6 mmol/L Normal 21.0-32.0 [facility] Comment on above: Performed By: #### C MP, TSH, LIPID #### [facility] [address] [place] [address] Dr. Bella Jerome Creatinine [Mass/Vol] 0.55 mg/dL Normal 0.55-1.02 [facility] Comment on above: Performed By: #### C MP, TSH, LIPID #### [facility] [address] [place] [address] Dr. Bella Jerome EGFR-AF SWAZI >60 Normal >=60 [facility] Comment on above: Performed By: #### C MP, TSH, LIPID #### [facility] [address] [place] [address] Dr. Bella Jerome EGFR-NON AF SWAZI >60 Normal >=60 [facility] Comment on above: Performed By: #### C MP, TSH, LIPID #### [facility] [address] [place] [address] Dr. Bella Jerome Globulin (S) [Mass/Vol] 3.1 g/dL Normal [facility] Comment on above: Performed By: #### C MP, TSH, LIPID #### [facility] [address] [place] [address] Dr. Bella Jerome Glucose [Mass/Vol] 82 mg/dL Normal 74-106 [facility] Comment on above: Performed By: #### C MP, TSH, LIPID #### [facility] [address] [place] [address] Dr. Bella Jerome Potassium [Moles/Vol] 4.0 mmol/L Normal 3.5-5.1 [facility] Comment on above: Performed By: #### C MP, TSH, LIPID #### [facility] [address] [place] [address] Dr. Bella Jerome Protein [Mass/Vol] 7.2 g/dL Normal 6.4-8.2 [facility] Comment on above: Performed By: #### C MP, TSH, LIPID #### [facility] [address] [place] [address] Dr. Bella Jerome Sodium [Moles/Vol] 138 mmol/L Normal 136-145 [facility] Comment on above: Performed By: #### C MP, TSH, LIPID #### [facility] [address] [place] [address] Dr. Bella Jerome Urea nitrogen [Mass/Vol] 14.0 mg/dL Normal 7.0-18.0 [facility] Comment on above: Performed By: #### C MP, TSH, LIPID #### [facility] [address] [place] [address] Dr. Bella Jerome Urea nitrogen/Creatinine [Mass ratio] 25.5 mg/mg Normal [facility] Comment on above: Performed By: #### C MP, TSH, LIPID #### [facility] [address] [place] [address] Dr. Bella Jerome TSHon 12-26-2022 TSH 0.224 uIU/mL Critically low 0.358-3.740 [facility] Comment on above: Performed By: #### C MP, TSH, LIPID #### [facility] [address] [place] [address] Dr. Bella Jerome VIT B12 AND FOLATEon 023 Cobalamin (Vitamin B12) [Mass/Vol] 702.0 pg/mL Normal 193.0-986.0 [facility] Comment on above: Performed By: #### F T4, VITAD, B12FOL, IRON ####[facility] [address] [place] [address]DrWill Jerome FOLATE 25.10 ng/mL Normal 8.60-58.90 [facility] Comment on above: Performed By: #### F T4, VITAD, B12FOL, IRON ####[facility] [address] [place] [address]DrWill Jerome VITAMIN D 25 OHon 12-26-2022 VIT D 25-OH 25.4 ng/mL Normal [facility] Comment on above: Performed By: #### F T4, VITAD, B12FOL, IRON ####[facility] [address] [place] [address]DrWill Jerome VIT D RANGES SEE BELOW [facility] Comment on above: Result Comment: <20 ng/mL Vit D deficient 20 - <30 ng/mL Vit D insufficient 30 - 100 ng/mL Vit D sufficient >100 ng/mL Potential Toxicity Performed By: #### F T4, VITAD, B12FOL, IRON ####[facility] [address] [place] [address]Dr. Bella Jerome PAP ACOG PANEL 2: 21 to 31on 12-18-2022 . . Normal [facility] Comment on above: Performed By: #### C BC #### [facility] [address] [address] [address] Bella Jerome Age Gdln ACOG Testing - Normal [facility] Comment on above: Performed By: #### C BC #### [facility] [address] [address] [address] Bella Jerome DIAGNOSIS: Comment Normal [facility] Comment on above: Result Comment: NEGA TIVE FOR INTRAEPITHELIAL LESION OR MALIGNANCY. Performed By: #### C BC #### [facility] [address] [address] [address] Bella Jerome Methodology: Comment Normal [facility] Comment on above: Result Comment: This liquid based ThinPrep(R) pap test was screened with the use of an image guided system. Performed By: #### C BC #### [facility] [address] [address] [address] Bella Jerome Note: Comment Normal [facility] Comment on above: Result Comment: The Pap smear is a screening test designed to aid in the detection of premalignant and malignant conditions of the uterine cervix. It is not a diagnostic procedure and should not be used as the sole means of detecting cervical cancer. Both false-positive and false-negative reports do occur. . Performed By: #### C BC #### [facility] [address] [address] [address] Bella Jerome Performed by: Comment Normal [facility] Comment on above: Result Comment: Byron Irby, Pediatric Nurse (ASCP) Performed By: #### C BC #### [facility] [address] [place] [address] Dr. Bella Jerome Reflex Criteria: Comment Normal [facility] Comment on above: Result Comment: The HPV DNA reflex criteria were not met with this specimen result therefore, no HPV testing was performed. . Performed By: #### C BC #### [facility] [address] [place] [address] Dr. Bella Jerome Specimen adequacy: Comment Normal [facility] Comment on above: Result Comment: Sati sfactory for evaluation. Endocervical and/or squamous metaplastic cells (endocervical component) are present. Performed By: #### C BC #### [facility] [address] [place] [address] Dr. Bella Jerome CBC W MANUAL DIFFon 09-07-20 22 ATYPICAL LYMPH # Normal [facility] Comment on above: Performed By: #### C BCMAN ####[facility] [address] [place] [address]Dr. Bella Jerome ATYPICAL LYMPH % Normal [facility] Comment on above: Performed By: #### C BCMAN ####[facility] [address] [place] [address]Dr. Bella Jerome BAND # 0.2 103/ul Normal 0.0-0.3 [facility] Comment on above: Performed By: #### C BCMAN ####[facility] [address] [place] [id number]. Bella Jerome BAND % 1 % Normal 0-5 [facility] Comment on above: Performed By: #### C BCRELL ####[facility] [address] [place] [id number]. Bella Jerome BASOM # 0.00 103/ul Normal 0.00-0.10 [facility] Comment on above: Performed By: #### C BCRELL ####[facility] [address] [place] [address]Dr. Bella Jerome BASOM % 0.0 % Critically low 0.2-2.0 [facility] Comment on above: Performed By: #### C BCRELL ####[facility] [address] [place] [address]Dr. Bella Jerome BLAST # Normal [facility] Comment on above: Performed By: #### C BCRELL ####[facility] [address] [place] [address]Dr. Bella Jerome BLAST % Normal [facility] Comment on above: Performed By: #### C BCRELL ####[facility] [address] [place], [place] [address]Dr. Bella Jerome CORRECTED WBC Normal 4.0-11.0 [facility] Comment on above: Performed By: #### C BCRELL ####[facility] [address] [place] [address]Dr. Bella Jerome EOS # 0.00 103/ul Normal 0.00-0.70 [facility] Comment on above: Performed By: #### C BCRELL ####[facility] [address] [place] [address]Dr. Bella Jerome EOS% 0.0 % Critically low 0.9-7.0 [facility] Comment on above: Performed By: #### C BCRELL ####[facility] [address] [place] [address]Dr. Bella Jerome HCT 30.5 % Critically low 36.0-48.0 [facility] Comment on above: Performed By: #### C PEDRO ####[facility] [address] [place], [place] [address]Bg. Bella Jerome HGB 10.5 g/dl Critically low 12.0-16.0 [facility] Comment on above: Performed By: #### C PEDRO ####[facility] [address] [place], [place] [address]Eo. Bella Jerome LYMPHM # 2.78 103/ul Normal 1.20-3.80 [facility] Comment on above: Performed By: #### C PEDRO ####[facility] [address] [place], [place] [address]Kx. Bella Jerome LYMPHM% 13.0 % Critically low 20.5-60.0 [facility] Comment on above: Performed By: #### C PEDRO ####[facility] [address] [place], [place] [address]Td. Bella Jerome MCH 32.8 pg Normal 26.7-34.0 [facility] Comment on above: Performed By: #### Jennifer VASQUEZ ####[facility] [address] [place], [place] [address]Xp. Bella Jerome MCHC 34.4 g/dl Normal 29.9-35.2 [facility] Comment on above: Performed By: #### C PEDRO ####[facility] [address] [place], [place] [address]Al. Bella Jerome MCV 95.3 fL Normal 81.0-99.0 [facility] Comment on above: Performed By: #### Jennifer VASQUEZ ####[facility] [address] [place], [place] [address]Wt. Bella Jerome METAMYELOCYTE # Normal [facility] Comment on above: Performed By: #### C PEDRO ####[facility] [address] [place], [place] [address]Vj. Bella Jerome METAMYELOCYTE % Normal [facility] Comment on above: Performed By: #### Jennifer VASQUEZ ####[facility] [address] [place], [place] [address]Wi. Bella Jerome MONOM# 2.35 103/ul Critically high 0.30-0.80 [facility] Comment on above: Performed By: #### C PEDRO ####[facility] [address] [place] [id number]. Bella Jerome MONOM% 11.0 % Normal 1.7-12.0 [facility] Comment on above: Performed By: #### C PEDRO ####[facility] [address] [place] [id number]. Bella Jerome MPV 11.1 fL Normal 9.5-13.5 [facility] Comment on above: Performed By: #### C PEDRO ####[facility] [address] [place] [address]Dr. Bella Jerome MYELOCYTE # Normal [facility] Comment on above: Performed By: #### C PEDRO ####[facility] [address] [place] [id number]. Bella Jerome MYELOCYTE % Normal [facility] Comment on above: Performed By: #### C PEDRO ####[facility] [address] [place] [address]Dr. Bella Jerome NRBC Normal [facility] Comment on above: Performed By: #### C PEDRO ####[facility] [address] [place] [id number]. Bella Jerome PLT 227 103/ul Normal 150-450 [facility] Comment on above: Performed By: #### C PEDRO ####[facility] [address] [place] [id number]. Bella Jerome RBC 3.20 106/ul Critically low 4.20-5.40 [facility] Comment on above: Performed By: #### C PEDRO ####[facility] [address] [place] [id number]. Bella Jerome RDW 12.8 % Normal 11.0-15.0 [facility] Comment on above: Performed By: #### C PEDRO ####[facility] [address] [place] [address]Dr. Bella Jerome SEG # 16.05 103/ul Critically high 1.40-6.50 [facility] Comment on above: Performed By: #### C BCRELL ####[facility] [address] [place], [place] [address]MqWill Jerome SEG % 75.0 % Normal 43.0-75.0 [facility] Comment on above: Performed By: #### C BCRELL ####[facility] [address] [place] [id number] Jerome WBC 21.4 103/ul Critically high 4.0-11.0 [facility] Comment on above: Performed By: #### C PEDRO ####[facility] [address] [place] [id number] Jerome CBC AUTO DIFFon 09-05-2022 BASO # 0.0 103/ul Normal 0.0-0.1 [facility] Comment on above: Performed By: #### C BC #### [facility] [address] [address] [address] Bella Jerome Basophils/100 WBC (Bld) 0.2 % Normal 0.2-2.0 [facility] Comment on above: Performed By: #### C BC #### [facility] [address] [address] [address] Bella Jerome EO # 0.1 103/ul Normal 0.0-0.7 [facility] Comment on above: Performed By: #### C BC #### [facility] [address] [address] [address] Bella Jerome Eosinophils/100 WBC (Bld) 0.6 % Critically low 0.9-7.0 [facility] Comment on above: Performed By: #### C BC #### [facility] [address] [address] [address] Bella Jerome Erythrocyte distribution width (RBC) [Ratio] 12.6 % Normal 11.0-15.0 [facility] Comment on above: Performed By: #### C BC #### [facility] [address] [place] [address] Dr. Bella Jerome Hematocrit (Bld) [Volume fraction] 32.5 % Critically low 36.0-48.0 [facility] Comment on above: Performed By: #### C BC #### [facility] [address] [place] [address] Dr. Bella Jerome Hemoglobin (Bld) [Mass/Vol] 11.1 g/dL Critically low 12.0-16.0 [facility] Comment on above: Performed By: #### C BC #### [facility] [address] [place] [address] Dr. Bella Jerome IG # 0.14 10e3/ul Critically high 0.00-0.03 [facility] Comment on above: Performed By: #### C BC #### [facility] [address] [place] [address] Dr. Bella Jerome IG % 1.1 % Critically high 0.0-0.5 [facility] Comment on above: Performed By: #### C BC #### [facility] [address] [place] [address] Dr. Bella Jerome LYMPH # 2.6 103/ul Normal 1.2-3.8 [facility] Comment on above: Performed By: #### C BC #### [facility] [address] [place] [address] Dr. Bella Jerome Lymphocytes/100 WBC (Bld) 20.2 % Critically low 20.5-60.0 [facility] Comment on above: Performed By: #### C BC #### [facility] [address] [place] [address] Dr. Bella Jerome MANUAL DIFF REQ NO Normal [facility] Comment on above: Performed By: #### C BC #### [facility] [address] [place] [address] Dr. Bella Jerome MCH (RBC) [Entitic mass] 32.2 pg Normal 26.7-34.0 [facility] Comment on above: Performed By: #### C BC #### [facility] [address] [place] [address] Dr. Bella Jerome MCHC (RBC) [Mass/Vol] 34.2 g/dL Normal 29.9-35.2 [facility] Comment on above: Performed By: #### C BC #### [facility] [address] [place] [address] Dr. Bella Jerome MCV (RBC) [Entitic vol] 94.2 fL Normal 81.0-99.0 [facility] Comment on above: Performed By: #### C BC #### [facility] [address] [place] [address] Dr. Bella Jerome MONO # 0.9 103/ul Critically high 0.3-0.8 [facility] Comment on above: Performed By: #### C BC #### [facility] [address] [place] [address] Dr. Bella Jerome Monocytes/100 WBC (Bld) 7.1 % Normal 1.7-12.0 [facility] Comment on above: Performed By: #### C BC #### [facility] [address] [place] [address] Dr. Bella Jerome NEUT # 8.9 103/ul Critically high 1.4-6.5 [facility] Comment on above: Performed By: #### C BC #### [facility] [address] [place] [address] Dr. Bella Jerome Neutrophils/100 WBC (Bld) 70.8 % Normal 43.0-75.0 [facility] Comment on above: Performed By: #### C BC #### [facility] [address] [place] [address] Dr. Bella Jerome Platelet mean volume (Bld) [Entitic vol] 11.0 fL Normal 9.5-13.5 [facility] Comment on above: Performed By: #### C BC #### [facility] [address] [place] [address] Dr. Bella Jerome PLT 234 103/ul Normal 150-450 [facility] Comment on above: Performed By: #### C BC #### [facility] [address] [place] [address] Dr. Bella Jerome RBC 3.45 106/ul Critically low 4.20-5.40 [facility] Comment on above: Performed By: #### C BC #### [facility] [address] [place], [place] [address] Dr. Bella Jerome WBC 12.6 103/ul Critically high 4.0-11.0 [facility] Comment on above: Performed By: #### C BC #### [facility] [address] [place], [place] [address] Dr. Bella Jerome Covid-19 PCR ([facility])on SARS-CoV-2 (COVID-19) RNA FAVIAN+probe Ql (Unsp spec) Not detected Normal NOT DETECTED [facility] Comment on above: Result Comment: When diagnostic [...] for this test is supported by the [employer] of Health and Human Service's declaration that [...] be used). Performed By: #### C VDTBH ####[facility] [address] [place], [place] [address]KbWill Jerome DRUG SCREEN RAPID (URINE)on 09-05-2022 AMP Negative Normal NEGATIVE [facility] Comment on above: Performed By: #### D RUGRPD ####[facility] [address] [place], [place] [address]YnWill Jerome BAR Negative Normal NEGATIVE [facility] Comment on above: Performed By: #### D RUGRPD ####[facility] [address] [place], [place] [address]Dr. Bella Jerome BUP Negative Normal NEGATIVE [facility] Comment on above: Performed By: #### D RUGRPD ####[facility] [address] [place], [place] [address]Dr. Bella Jerome BZO Negative Normal NEGATIVE [facility] Comment on above: Performed By: #### D RUGRPD ####[facility] [address] [place], [place] [address]Dr. Liwally Jerome NGA Negative Normal NEGATIVE [facility] Comment on above: Performed By: #### D RUGRPD ####[facility] [address] [place], [place] [address]Dr. Bella Jerome CUT-OFFS SEE BELOW Normal [facility] Comment on above: Result Comment: AMP (Amphetamine): 500ng/mL, BAR (Barbituates): 200 ng/mL, BZO (Benzodiazepines): 150 ng/mL, BUP (Buprenorphine): 10 ng/mL, NGA (Cocaine): 150 ng/mL, mAMP (Methamphetamine): 500 ng/mL, MTD (Methadone): 200 ng/mL, OPI (Opiates): 100 ng/mL, OXY (Oxycodone): 100 ng/mL, PCP (Phencyclidine): 25 ng/mL, PPX (Propoxyphene): 300 ng/mL, THC (Cannabinoids): 50 ng/mL, TCA (Trycyclic Antidepressants): 300 ng/mL Performed By: #### D RUGRPD ####[facility] [address] [place], [place] [address]Dr. Bella Jerome DRUG CUT HEADER DRUG CLASS TEST SYSTEM CUT-OFF CONCENTRATIONS ARE FOLLOWS: Normal [facility] Comment on above: Performed By: #### D RUGRPD ####[facility] [address] [place], [place] [address]Dr. Bella Jerome mAMP Negative Normal NEGATIVE [facility] Comment on above: Performed By: #### D RUGRPD ####[facility] [address] [place], [place] [address]Dr. Bella Jerome MTD Negative Normal NEGATIVE [facility] Comment on above: Performed By: #### D RUGRPD ####[facility] [address] [place] [id number]. Bella Jerome OPI Negative Normal NEGATIVE [facility] Comment on above: Performed By: #### D RUGRPD ####[facility] [address] [place] [id number]. Yiwally Jerome OXY Negative Normal NEGATIVE [facility] Comment on above: Performed By: #### D RUGRPD ####[facility] [address] [place] [address]Dr. Yiwally Jerome PCP Negative Normal NEGATIVE [facility] Comment on above: Performed By: #### D RUGRPD ####[facility] [address] [place] [address]Dr. Bella Jerome PPX Negative Normal NEGATIVE [facility] Comment on above: Performed By: #### D RUGRPD ####[facility] [address] [place] [address]Dr. Bella Jerome TCA Negative Normal NEGATIVE [facility] Comment on above: Performed By: #### D RUGRPD ####[facility] [address] [place] [address]Dr. Bella Jerome THC Negative Normal NEGATIVE [facility] Comment on above: Performed By: #### D RUGRPD ####[facility] [address] [place] [address]Dr. Bella Jerome TYPE AND SCREENon 09-05-2022 TYPE AND SCREEN Negative Normal [facility] Comment on above: Performed By: #### T NS ####[facility] [address] [place], [place] [address]Dr. Bella Jerome US PREG BIOPHY W NON [...] by: MANUELITO GREGG Date: 2022-08-31 17:06 Normal [facility] US PREG GROWTHon 08-30-2022 US PREG GROWTH [...] by: MANUELITO GREGG Date: 2022-08-30 17:59 Normal [facility] US PREG BIOPHY W NON STRESSo [...] by: MANUELITO GREGG Date: 2022-08-24 17:10 Normal [facility] FREE T4on 08-21-2022 Free T4 [Mass/Vol] 0.90 ng/dL Normal 0.76-1.46 [facility] Comment on above: Performed By: #### C BC #### [facility] [address] [address] [address] Bella Jerome TSHon 08-21-2022 TSH 1.033 uIU/mL Normal 0.358-3.740 [facility] Comment on above: Performed By: #### H H #### [facility] [address] [address] [address] Bella Jerome US PREG BIOPHY W [...] MANUELITO GREGG Date: 2022-08-17 18:33 Normal [facility] GROUP B STREP CULTUREon 07-28 S. agalactiae Ag Ql (Unsp spec) Culture Observations: NEGATIVE FOR GROUP B STREPTOCOCCUS. Normal [facility] Comment on above: Performed By: #### G BSCX ####[facility] [address] [place] [address]Dr. Bella Jerome US PREG BIOPHY W NON [...] profile score: 8.0 Electronically authenticated by: MANUELITO Bartlett: 2022-08-10 16:36 Normal [facility] PREG GROWTHon 08-10-2022 US PREG GROWTH [...] by: MANUELITO GREGG Date: 2022-08-10 16:37 Normal [facility] PREG GROWTHon 07-25-2022 US PREG GROWTH [...] MANUELITO GREGG Date: 2022-07-25 18:18 Normal [facility] FREE T4on 07-24-2022 Free T4 [Mass/Vol] 0.98 ng/dL Normal 0.76-1.46 [facility] Comment on above: Performed By: #### F T4 #### [facility] [address] [address] [address] Bella Jerome TSHon 07-24-2022 TSH 1.196 uIU/mL Normal 0.358-3.740 [facility] Comment on above: Performed By: #### T SH ####[facility] [address] [place] [address]Dr. Bella Jerome UA (CLEAN/CATCH) MEAT [employer]ESS[employer] MANAGER/MICRO I F IND.on 07-20-2022 Bilirubin Ql (U) Negative Normal NEGATIVE [facility] Comment on above: Performed By: #### H H #### [facility] [address] [place] [address] Dr. Bella Jerome Clarity (U) CLEAR Normal CLEAR [facility] Comment on above: Performed By: #### H H #### [facility] [address] [place] [address] Dr. Bella Jerome Color (U) LT. YELLOW Normal YELLOW [facility] Comment on above: Performed By: #### H H #### [facility] [address] [place] [address] Dr. Bella Jerome Glucose Ql (U) Negative Normal NEGATIVE [facility] Comment on above: Performed By: #### H H #### [facility] [address] [address] [address] Bella Jerome Hemoglobin Ql (U) Negative Normal NEGATIVE [facility] Comment on above: Performed By: #### H H #### [facility] [address] [place] [address] Dr. Bella Jerome Ketones Ql (U) Negative Normal NEGATIVE [facility] Comment on above: Performed By: #### H H #### [facility] [address] [address] [address] Bella Jerome LEUKOCYTES Negative Normal NEGATIVE [facility] Comment on above: Performed By: #### H H #### [facility] [address] [place] [address] Dr. Bella Jerome Nitrite Ql (U) Negative Normal NEGATIVE [facility] Comment on above: Performed By: #### H H #### [facility] [address] [address] [address] Bella Jerome pH (U) 7.0 [pH] Normal 5-9 [facility] Comment on above: Performed By: #### H H #### [facility] [address] [place] [address] Dr. Bella Jerome SPEC GRAVITY <=1.005 Abnormal 1.005-<=1.025 [facility] Comment on above: Performed By: #### H H #### [facility] [address] [place] [address] Dr. Bella Jerome UA PROTEIN Negative Normal NEGATIVE/ TRACE [facility] Comment on above: Performed By: #### H H #### [facility] [address] [place] [address] Dr. Bella Jerome UR MICRO IND NOT INDICATED Normal [facility] Comment on above: Performed By: #### H H #### [facility] [address] [place] [address] Dr. Bella Jerome Urobilinogen Qn (U) 0.2 {Kimberlee'U}/dL Normal 0.2 - 1. 0 [facility] Comment on above: Performed By: #### H H #### [facility] [address] [place] [address] Dr. Bella Jerome US PREG GROWTHon 06-27-2022 [...] by: RAGINI SANTOS Date: 2022-06-27 16:23 Normal [facility] FREE T4on 06-20-2022 Free T4 [Mass/Vol] 0.82 ng/dL Normal 0.76-1.46 [facility] Comment on above: Performed By: #### H H #### [facility] [address] [place] [address] Dr. Bella Jerome GLUCOSE - 1HRon 06-20-2022 Glucose [Mass/Vol] 127 mg/dL Critically high 74-106 [facility] Comment on above: Performed By: #### H H #### [facility] [address] [address] [address] Bella Jerome HEMOGRAM AND PLATELon 2021 Hematocrit (Bld) [Volume fraction] 32.4 % Critically low 36.0-48.0 [facility] Comment on above: Performed By: #### H H #### [facility] [address] [address] [address] Bella Jerome Hemoglobin (Bld) [Mass/Vol] 10.9 g/dL Critically low 12.0-16.0 [facility] Comment on above: Performed By: #### H H #### [facility] [address] [place] [address] Dr. Bella Jerome MCH (RBC) [Entitic mass] 32.9 pg Normal 26.7-34.0 [facility] Comment on above: Performed By: #### H H #### [facility] [address] [place] [address] Dr. Bella Jerome MCHC (RBC) [Mass/Vol] 33.6 g/dL Normal 29.9-35.2 [facility] Comment on above: Performed By: #### H H #### [facility] [address] [place] [address] Dr. Bella Jerome MCV (RBC) [Entitic vol] 97.9 fL Normal 81.0-99.0 [facility] Comment on above: Performed By: #### H H #### [facility] [address] [place] [address] Dr. Bella Jerome PLT 241 103/ul Normal 150-450 [facility] Comment on above: Performed By: #### H H #### [facility] [address] [place] [address] Dr. Bella Jerome RBC 3.31 106/ul Critically low 4.20-5.40 [facility] Comment on above: Performed By: #### H H #### [facility] [address] [address] [address] Bella eJrome WBC 11.3 103/ul Critically high 4.0-11.0 [facility] Comment on above: Performed By: #### H H #### [facility] [address] [place], [place] [id number] Dr. Bella Jerome TSHon 06-20-2022 TSH 3.044 uIU/mL Normal 0.358-3.740 [facility] Comment on above: Performed By: #### C BC #### [facility] [address] [place], [place] [address] Dr. Bella Jerome US PREG INCOMPLETE ANATOMYon 05-24-2022 US PREG INCOMPLETE ANATOMY EXAMINATION: US PREG INCOMPLETE ANATOMY HISTORY: screening COMPARISON: Ultrasound anatomy 04/26/2022 FINDINGS: Presentation: Cephalic Heart rate: 154 bpm Anatomy: Cervical, thoracic, and lumbar spine HERNANDO: 09/13/2022 IMPRESSION: 1. Adequate visualization of the cervical, thoracic, and lumbar spine; no appreciable abnormality. Electronically authenticated by: RAGINI SANTOS Date: 2022-05-24 17:33 Normal [facility] US PREG ANATOMY SINGLEon US PREG ANATOMY [...] MANUELITO GREGG Date: 2022-04-26 16:54 Normal [facility] CHLAMYDIA/GONOCOCCUS FAVIAN (SW AB/URINE/PAPon 04-19-2022 Chlamydia trachomatis, FAVIAN Negative Normal Negative [facility] Comment on above: Performed By: #### C T/NGNA ####[facility] [id number] [address]Dr[address] Jerome Neisseria gonorrhoeae, FAVIAN Negative Normal Negative [facility] Comment on above: Performed By: #### C T/NGNA ####[facility] [address] [address]Dr. Bella Jerome VAGINITIS/VAGINOSIS DNA PROB Leonid 04-18-2022 Jessica species Negative Normal Negative [facility] Comment on above: Performed By: #### H H #### [facility] [address] [place] [address] Dr. Bella Jerome Gardnerella vaginalis Negative Normal Negative [facility] Comment on above: Performed By: #### H H #### [facility] [address] [address] [address] Bella Jerome Trichomonas vaginalis Negative Normal Negative [facility] Comment on above: Performed By: #### H H #### [facility] [address] [place] [address] Dr. Bella Jerome FREE T4on 04-05-2022 Free T4 [Mass/Vol] 0.88 ng/dL Normal 0.76-1.46 [facility] Comment on above: Performed By: #### F T4 #### [facility] [address] [place] [address] Dr. Bella Jerome TSHon 04-05-2022 TSH 1.786 uIU/mL Normal 0.358-3.740 [facility] Comment on above: Performed By: #### T SH ####[facility] [address] [address]Dr. Bella Jerome TSH RANGE SEE BELOW Normal [facility] Comment on above: Result Comment: <0.3 4 UIU/ml HYPERTHYROID 0.34-5.60 UIU/ml EUTHYROID >5.60 UIU/ml HYPOTHYROID Performed By: #### T SH ####[facility] [address] [address]Dr. Bella Jerome FREE T4on 02-26-2022 Free T4 [Mass/Vol] 1.06 ng/dL Normal 0.76-1.46 [facility] Comment on above: Performed By: #### C BC #### [facility] [address] [place] [address] Dr. Bella Jerome TSHon 02-26-2022 TSH 2.024 uIU/mL Normal 0.470-4.680 [facility] Comment on above: Performed By: #### C BC #### [facility] [address] [place], [place] [address] Dr. Bella Jerome TSH RANGE SEE BELOW Normal [facility] Comment on above: Result Comment: <0.3 4 UIU/ml HYPERTHYROID 0.34-5.60 UIU/ml EUTHYROID >5.60 UIU/ml HYPOTHYROID Performed By: #### C BC #### [facility] [address] [address] [address] Bella Jerome Vital Signs Date Time Vital Sign Value Performing Clinician Facility 09-01-2024 14:03-0500 Body mass index (BMI) [Ratio] 44.25 kg/m2 Edgar Marquita DO Work Phone: [facility] 09-01-2024 14:03-0500 Body weight 113.31 kg Edgar Marquita DO Work Phone: [facility] 09-01-2024 14:03-0500 Diastolic blood pressure 78 mm[Hg] Edgar Marquita DO Work Phone: [facility] 09-01-2024 14:03-0500 Systolic blood pressure 120 mm[Hg] Edgar Marquita DO Work Phone: [facility] 08-18-2024 13:50-0400 Body mass index (BMI) [Ratio] 43.54 kg/m2 Edgar Marquita DO Work Phone: [facility] 08-18-2024 13:50-0400 Body weight 111.49 kg Edgar Marquita DO Work Phone: [facility] 08-18-2024 13:50-0400 Diastolic blood pressure 74 mm[Hg] Edgar Marquita DO Work Phone: [facility] 08-18-2024 13:50-0400 Systolic blood pressure 118 mm[Hg] Edgar Marquita DO Work Phone: [facility] 08-04-2024 13:30-0400 Body mass index (BMI) [Ratio] 44.37 kg/m2 Marylou CARBAJAL Work Phone: [facility] 08-04-2024 13:30-0400 Body weight 113.63 kg Marylou Priest PA Work Phone: [facility] 08-04-2024 13:30-0400 Diastolic blood pressure 78 mm[Hg] Marylou Priest PA Work Phone: [facility] 08-04-2024 13:30-0400 Systolic blood pressure 128 mm[Hg] Marylou Priest PA Work Phone: [facility] 02-13-2024 11:24-0400 Body height 160.02 cm [facility] 02-13-2024 11:24-0400 Body mass index (BMI) [Ratio] 42.3 kg/m2 [facility] 02-13-2024 11:24-0400 Body weight 108.49 kg [facility] 02-13-2024 11:24-0400 Diastolic blood pressure 70 mm[Hg] [facility] 02-13-2024 11:24-0400 Heart rate 69 /min [facility] 02-13-2024 11:24-0400 Respiratory rate 18 /min [facility] 02-13-2024 11:24-0400 SaO2% (BldA) [Mass fraction] 98 % [facility] 02-13-2024 11:24-0400 Systolic blood pressure 118 mm[Hg] [facility] 10-31-2023 15:00-0500 Body height 160.02 cm Sandra Austin Other [facility] [employer] Other 10-31-2023 15:00-0500 Body mass index (BMI) [Ratio] 45.41 kg/m2 Sandra Austin Other [facility] [employer] Other 10-31-2023 15:00-0500 Body temperature 98.5 [degF] Sandra Austin Other [facility] [employer] Other 10-31-2023 15:00-0500 Body weight 116.3 kg Sandra Geovanna Other [facility] Other 10-31-2023 15:00-0500 Diastolic blood pressure 80 mm[Hg] Sandra Geovanna Other [facility] Other 10-31-2023 15:00-0500 Respiratory rate 18 /min Sandra Austin Other [facility] Other 10-31-2023 15:00-0500 SaO2% (BldA) [Mass fraction] 98 % Sandra Geovanna Other [facility] Other 10-31-2023 15:00-0500 Systolic blood pressure 128 mm[Hg] Sandra Austin Other [facility] Other 06-24-2023 14:30-0400 Body height 160.02 cm Sandra Geovanna Other [facility] Other 06-24-2023 14:30-0400 Body mass index (BMI) [Ratio] 44.87 kg/m2 Sandra Geovanna Other [facility] Other 06-24-2023 14:30-0400 Body weight 114.9 kg Sandra Austin Other [facility] Other 06-24-2023 14:30-0400 Diastolic blood pressure 60 mm[Hg] Sandra Austin Other [facility] Other 06-24-2023 14:30-0400 Respiratory rate 18 /min Sandra Austin Other [facility] Other 06-24-2023 14:30-0400 SaO2% (BldA) [Mass fraction] 99 % Sandra Austin Other [facility] Other 06-24-2023 14:30-0400 Systolic blood pressure 110 mm[Hg] Sandra Austin Other [facility] Other 04-15-2023 09:25-0400 Body height 160.02 cm Ramonita Greenberg Other [facility] Other 04-15-2023 09:25-0400 Body mass index (BMI) [Ratio] 41.8 kg/m2 Ramonita Hornmond Other [facility] Other 04-15-2023 09:25-0400 Body temperature 98.5 [degF] Ramonita Hornmond Other [facility] Other 04-15-2023 09:25-0400 Body weight 107.05 kg Ramonita Hornmond Other [facility] Other 04-15-2023 09:25-0400 Respiratory rate 18 /min Ramonita Hornmond Other [facility] Other 04-15-2023 09:25-0400 SaO2% (BldA) [Mass fraction] 97 % Ramonita Hornmond Other [facility] Other 02-21-2023 14:45-0400 Body height 160.02 cm Sandra Austin Other [facility] Other 02-21-2023 14:45-0400 Body mass index (BMI) [Ratio] 41.39 kg/m2 Sandra Austin Other [facility] Other 02-21-2023 14:45-0400 Body weight 106.01 kg Sandra Geovanna Other [facility] Other 02-21-2023 14:45-0400 Diastolic blood pressure 60 mm[Hg] Sandra Austin Other [facility] Other 02-21-2023 14:45-0400 Respiratory rate 18 /min Sandra Geovanna Other [facility] Other 02-21-2023 14:45-0400 SaO2% (BldA) [Mass fraction] 98 % Sandra Geovanna Other [facility] Other 02-21-2023 14:45-0400 Systolic blood pressure 110 mm[Hg] Sandra Austin Other [facility] Other 12-24-2022 14:30-0500 Body height 160.02 cm Sandra Austin Other [facility] Other 12-24-2022 14:30-0500 Body mass index (BMI) [Ratio] 40.83 kg/m2 Sandra Austin Other [facility] Other 12-24-2022 14:30-0500 Body weight 104.55 kg Sandra Geovanna Other [facility] Other 12-24-2022 14:30-0500 Diastolic blood pressure 70 mm[Hg] Sandra Pendletonle Other [facility] Other 12-24-2022 14:30-0500 Respiratory rate 18 /min Sandra Austin Other [facility] Other 12-24-2022 14:30-0500 SaO2% (BldA) [Mass fraction] 99 % Sandra Geovanna Other [facility] Other 12-24-2022 14:30-0500 Systolic blood pressure 118 mm[Hg] Sandra Austin Other [facility] Other 12-21-2021 16:30-0500 Body height 160.02 cm Sandra Austin Other [facility] Other 12-21-2021 16:30-0500 Body mass index (BMI) [Ratio] 38.58 kg/m2 Sandra Austin Other [facility] Other 12-21-2021 16:30-0500 Body temperature 97.3 [degF] Sandra Austin Other [facility] Other 12-21-2021 16:30-0500 Body weight 98.79 kg Sandra Geovanna Other [facility] Other 12-21-2021 16:30-0500 Diastolic blood pressure 60 mm[Hg] Sandra Austin Other [facility] Other 12-21-2021 16:30-0500 Respiratory rate 18 /min Sandra Austin Other [facility] Other 12-21-2021 16:30-0500 SaO2% (BldA) [Mass fraction] 99 % Sandra Austin Other [facility] Other 12-21-2021 16:30-0500 Systolic blood pressure 118 mm[Hg] Sandra Austin Other [facility] [employer] Other Encounters Encounter Date Encounter Type Care Provider Facility Start: 09-14-2024 End: 09-14-2024 ambulatory MARYLOU PRIEST Not Available Start: 09-08-2024 End: 09-08-2024 ambulatory EDGAR MARQUITA [...] flow sheet Edgar Marquita DO Work Phone: [facility] Comment on above: 34 weeks gestation o f ; Nausea and vomiting, unspecified vomiting type; Gastroesophageal reflux disease, unspecified whether esophagitis present; Heartburn during in third trimester Start: 08-04-2024 End: 08-04-2024 Bamboo flowsheet Marylou CARBAJAL Work Phone: [facility] Start: 08-04-2024 End: 08-04-2024 Bamboo flowsheet Marylou CARBAJAL Work Phone: [facility] Start: 08-04-2024 End: 08-04-2024 ambulatory MARYLOU PRIEST Not Available Start: 08-04-2024 End: 08-04-2024 flow sheet Marylou CARBAJAL Work Phone: [facility] Comment on above: 32 weeks gestation o f ; Third trimester ; Anxiety, generalized ([facility]) Start: 07-21-2024 End: 07-21-2024 ambulatory EDGAR MARQUITA [...] Not Available Start: 02-13-2024 End: 02-13-2024 ambulatory [facility] Work Phone: Start: 02-13-2024 End: 02-13-2024 Patient encounter procedure [facility] Work Phone: Start: 12-16-2023 Non-patient / Non-visit [facility] Work Phone: Start: 12-16-2023 End: 12-16-2023 ambulatory EDGAR JUÁREZ Not Available Start: 10-31-2023 End: 10-31-2023 ambulatory Sandra Geovanna Other [facility] Other Start: 10-31-2023 Office outpatient vi sit 25 minutes Sandra Austin [facility] Start: 07-19-2023 End: 07-19-2023 ambulatory Sandra Geovanna Other [facility] Other Start: 07-19-2023 Telephone encounter Sandra Austin [facility] [place] Start: 06-24-2023 End: 06-24-2023 ambulatory Sandra Geovanna Other [facility] Other Start: 06-24-2023 Office outpatient vi sit 25 minutes Sandra Austin [facility] Start: 06-04-2023 End: 06-04-2023 ambulatory Sandra Geovanna Other [facility] Other Start: 06-04-2023 Telephone encounter Sandra Austin [facility] Start: 04-15-2023 End: 04-15-2023 ambulatory Ramonita Greenberg Other [facility] Other Start: 04-15-2023 Office outpatient vi sit 15 minutes Ramonita Greenberg [facility] Start: 04-11-2023 End: 04-11-2023 ambulatory Sandra Geovanna Other [facility] Other Start: 04-11-2023 Telephone encounter Sandra Austin [facility] [place] Start: 02-21-2023 Office outpatient vi sit 25 minutes Sandra Austin [facility] [place] Start: 02-21-2023 End: 02-22-2023 ambulatory SANDRA AUSTIN [facility] [employer] Other Start: 01-04-2023 End: 01-04-2023 ambulatory Sandra Austin Other [facility] Other Start: 01-04-2023 Telephone encounter Sandra Guevara [facility] Start: 12-30-2022 Encounter for genera l adult medical examination without abnormal findings SANDRA AUSTIN [facility] Start: 12-27-2022 End: 12-27-2022 ambulatory Sandra Austin Other [facility] Other Start: 12-27-2022 Telephone encounter Sandra Guevara [facility] Start: 12-26-2022 End: 12-27-2022 ambulatory SANDRA AUSTIN Facility:[facility] Start: 12-26-2022 End: 12-27-2022 Encounter for general adult medical examination without abnormal findings SANDRA AUSTIN Facility:[facility] Start: 12-24-2022 End: 12-24-2022 ambulatory Sandra Austin Other [facility] Other Start: 12-24-2022 Encounter for genera l adult medical examination without abnormal findings Sandra Austin [facility] Start: 12-24-2022 Periodic preventive med est patient 18-39 yrs Sandra Austin [facility] Start: 12-10-2022 End: 12-10-[address] EDGAR [...] 12-21-2021 End: 12-21-2021 ambulatory Sandra Kaple Other [facility] Other Start: 12-21-2021 Office outpatient ne w 45 minutes Sandra Pendletonle [facility] [place] Procedures Date Procedure Procedure Detail Performing Clinician Start: 09-01-2024 Urnls dip stick/tabl et rgnt non-auto w/o micrscp Edgar Juárez DO Work Phone: Start: 08-29-2024 ALL THYROID STIM HORMONE Edgar Juárez DO Work Phone: Start: 08-18-2024 Urnls dip stick/tabl et rgnt non-auto w/o micrscp Edgar Marquita DO Work Phone: Start: 08-04-2024 Urnls [...] EST Office Visit [facility] [address] [place] [id number] Edgar Juárez, DO [address] [place] [address] [facility] Start: 09-08-2024 End: 09-08-2024 Patient encounter procedure 09/08/2024 10:50 AM EST Routine [facility] [address] [place] [id number] Edgar Juárez, DO [address] [place] [address] [facility] Start: 09-01-2024 End: 09-01-2025 Strep B DNA probe, amplification Strep B DNA probe, amplification Lab Routine Third trimester Expected: 09/01/2024 (Approximate), Expires: 09/01/2025 [facility] Work Phone: Comment on above: Expected: 09/01/2024 (Approximate), Expires: 09/01/2025 Start: 09-01-2024 End: 09-01-2024 Patient encounter procedure [facility] Comment on above: Arrived Start: 08-18-2024 End: 08-18-2024 Patient encounter procedure 08/18/2024 1:30 PM EDT Routine [facility] [address] [place] [address] Edgar Juárez, [address] [place], [place] [id number] [facility] Start: 08-18-2024 End: 08-18-2024 Professional / ancillary services management 08/18/2024 1:00 PM EDT Ancillary Procedure [facility] [address] [place] [address] [facility] Patient Education Low back pain in adults [facility] Work Phone: Immunizations Immunization Date Immunization Notes Care Provider [facility] 09-08-2022 diphtheria, tetanus toxoids and pertussis vaccine Marylou CARBAJAL Work Phone: [facility] 09-12-2021 pneumococcal conjuga te vaccine, 13 valent Marylou CARBAJAL Work Phone: [facility] 08-14-1999 diphtheria, tetanus toxoids and acellular pertussis vaccine, unspecified formulation Marylou CARBAJAL Work Phone: [facility] 08-14-1999 haemophilus influenz ae type b vaccine, HbOC conjugate aMrylou CARBAJAL Work Phone: [facility] 08-14-1999 measles, mumps and rubella virus vaccine Marylou CARBAJAL Work Phone: [facility] 08-14-1999 trivalent poliovirus vaccine, live, oral Marylou CARBAJAL Work Phone: [facility] 04-27-1998 diphtheria, tetanus toxoids and acellular pertussis vaccine, unspecified formulation Marylou Priest [place] Work Phone: [facility] 04-27-1998 haemophilus influenz ae type b conjugate and Hepatitis B vaccine Marylou Priest [place] Work Phone: [facility] 1997 diphtheria, tetanus toxoids and acellular pertussis vaccine, unspecified formulation Marylou Anjel [place] Work Phone: [facility] 1997 haemophilus influenz ae type b vaccine, HbOC conjugate Marylou Priest [place] Work Phone: [facility] 1997 poliovirus vaccine, inactivated Marylou Anjel [place] Work Phone: [facility] 1997 diphtheria, tetanus toxoids and acellular pertussis vaccine, unspecified formulation Marylou Anjel [place] Work Phone: [facility] 1997 haemophilus influenz ae type b conjugate and Hepatitis B vaccine Marylou Priest [place] Work Phone: [facility] 1997 poliovirus vaccine, inactivated Marylou Priest [place] Work Phone: [facility] 1997 hepatitis B vaccine, pediatric or pediatric/adolescent dosage Marylou Priest [place] Work Phone: [facility] Payers Date Payer Category Payer Private Health Insurance [employer] [id number] 2023 Unknown [employer] [id number] 2023-Present [address] [place] [address] [id number] 2023 Unknown [id number] 2.16.840.1.614017.19 1997 Unknown [id number] 2.16.840.1.637718.3.579.2. 593 1997 Unknown [id number] 2.16.840.1.710747.3.579.2. 593 1997 Unknown [id number] 2.16.840.1.910058.3.579.2. 593 1997 Unknown [id number] 2.16.840.1.174468.3.579.2. 593 1997 Unknown [id number] 2.16.840.1.984364.3.579.2. 593 1997 Unknown [id number] 2.16.840.1.348780.3.579.2. 593 1997 Unknown [id number] 2.16.840.1.410290.3.579.2. 593 1997 Unknown [id number] 2.16.840.1.619795.3.579.2. 593 1997 Unknown [id number] 2.16.840.1.147686.3.579.2. 593 1997 Unknown [id number] 2.16.840.1.403244.3.579.2. 593 1997 Unknown [id number] 2.16.840.1.814306.3.579.2. 593 1997 Unknown [id number] 2.16.840.1.208497.3.579.2. 593 1997 Unknown [id number] 2.16.840.1.675529.3.579.2. 593 1997 Unknown [id number] 2.16.840.1.159885.3.579.2. 593 1997 Unknown [id number] 2.16.840.1.202323.3.579.2. 593 1997 Unknown [id number] 2.16.840.1.924247.3.579.2. 593 1997 Unknown [id number] 2.16.840.1.963727.3.579.2. 593 1997 Unknown [id number] 2.16.840.1.651010.3.579.2. 593 1997 Unknown [id number] 2.16.840.1.318276.3.579.2. 593 1997 Unknown [id number] 2.16.840.1.269848.3.579.2. 593 1997 Unknown [id number] 2.16.840.1.016900.3.579.2. 593 1997 Unknown [id number] 2.16.840.1.242664.3.579.2. 593 1997 Unknown [id number] 2.16.840.1.221893.3.579.2. 593 1997 Unknown [id number] 2.16.840.1.060630.3.579.2. 1259 1997 Unknown [id number] 2.16.840.1.121757.3.579.2. 1259 1997 Unknown [id number] 2.16.840.1.379617.3.579.2. 1259 1997 Unknown [id number] 2.16.840.1.806504.3.579.2. 1259 1997 Unknown [id number] 2.16.840.1.849495.3.579.2. 1259 1997 Unknown [id number] 2.16.840.1.722277.3.579.2. 1259 1997 Unknown [id number] 2.16.840.1.304058.3.579.2. 1258 1997 Unknown [id number] 2.16.840.1.528913.3.579.2. 1258 1997 Unknown [id number] 2.16.840.1.028802.3.579.2. 1258 1997 Unknown [id number] 2.16.840.1.589036.3.579.2. 1258 1997 Unknown [id number] 2.16.840.1.833105.3.579.2. 1258 1997 Unknown [id number] 2.16.840.1.354406.3.579.2. 1258 1997 Unknown [id number] 2.16.840.1.934013.3.579.2. 1259 1957 Medicaid [id number] 2.16.840.1.558465.19 1957 Private Health Insurance [id number] 2.16.840.1.561627.19 Self-pay Self Pay [id number] Unknown [place] [id number] Social History Date Type Detail Facility Start: 08-02-2023 End: 11-25-2023 Sex Assigned At [facility] [employer] Other Start: 1995 Sex Assigned At Female [facility] Start: 08-02-[address] [facility] Start: 08-02-2023 Tobacco use and exposure Smokeless tobacco non-user [facility] Start: 07-21-2024 End: 09-01-2024 Alcoholic beverage intake Ex-drinker (finding) [facility] Start: 08-02-2023 End: 11-25-2023 History of Social function [facility] Start: 01-03-2024 [facility] Start: 1995 Sex assigned at Not on file [facility] Clinical Notes 12-21-2021 to 09-01-2024 Keena Aarti, [employer]STRUCTION [employer]ADES TEACHER - 09/01/2024 1:30 PM ALTAanne mariebuddy Vladimirwesley, CONSTRUCTION TRADES TEACHER - 08/18/2024 1:30 PM EDTMazinpily Aarti, CONSTRUCTION TRADES TEACHER - 08/18/2024 1:30 PM Jeanne Priest, SOLOMON - 08/04/2024 1:20 PM EDT Note Date [...] 4 mg, Oral, Every 6 hours PRN Jvslmpik-Sbx-Jq-FA ( 1 + IRON PO) Take by [...] nursing note reviewed. Exam conducted with a assistant general manager present. Vitals: Estimated body mass index [...] Edgar Juárez DO documented in this encounter [facility] 08-18-2024 History of Presen t illness [...] before breakfast, Do not crush or chew. Iotogbyk-Tin-Sl-FA ( 1 + IRON PO) Oral ALLERGIES [...] nursing note reviewed. Exam conducted with a assistant general manager present. Vitals: Estimated body mass index [...] Edgar Juárez DO documented in this encounter [facility] 08-04-2024 History of Presen t illness [...] before breakfast, Do not crush or chew. Nxysnuna-Cpw-Wi-FA ( 1 + IRON PO) Oral ALLERGIES [...] of: SOLOMON Turner documented in this encounter [facility] 10-31-2023 Evaluation note Encounter Date Diagnosis [...] E28.2) She will continue to follow with [facility] and continue healthy lifestyle changes that she [...] course of antibiotic. Increase fluids and rest. Jmgx-yzp-kkilaes antipyretics as needed. Warning signs and symptoms reviewed with patient today. Patient to go immediately to the ER should she experience any of these. Patient to notify office should her symptoms persist and not improve. Patient verbalizes understanding and agrees to treatment plan. [facility] Other 09-22-2023 Evaluation note* Encounter Date Diagnosis Assessment Notes Treatment Notes Treatment Clinical Notes Jun, Vitamin D insufficiency (ICD-10 - E55.9) [facility] Other 08-28-2023 Evaluation note* Encounter Date Diagnosis [...] E28.2) She will continue to follow with [facility] and continue healthy lifestyle changes that she [...] ENT today. Specialty notes reviewed as received. [facility] Other 08-08-2023 Evaluation note* Encounter Date Diagnosis Assessment Notes Treatment Notes Treatment Clinical Notes May, Other atopic dermatitis (ICD-10 - L20.89) May, Acute otitis externa of both ears, unspecified type (ICD-10 - H60.503) [facility] Other 06-19-2023 Evaluation note* Encounter Date Diagnosis [...] no improvement in 2 to 3 days [facility] Other 06-15-2023 Evaluation note* Encounter Date Diagnosis Assessment Notes Treatment Notes Treatment Clinical Notes Mar, Anxiety (ICD-10 - F41.9) [facility] Other 04-27-2023 Evaluation note* Encounter Date Diagnosis [...] plan on rechecking this at May appointment. [facility] Other 03-10-2023 Evaluation note* Encounter Date Diagnosis Assessment Notes Treatment Notes Treatment Clinical Notes Dec, Bacterial conjunctivitis (ICD-10 - H10.9) [facility] Other 03-02-2023 Evaluation note* Encounter Date Diagnosis Assessment Notes Treatment Notes Treatment Clinical Notes Dec, Vitamin D insufficiency (ICD-10 - E55.9) Dec, Elevated alkaline phosphatase level (ICD-10 - R74.8) Dec, Other specified hypothyroidism (ICD-10 - E03.8) [facility] Other 02-27-2023 Evaluation note* Encounter Date Diagnosis [...] ordered. Follow routinely with eye doctor, dentist, [facility]. Patient is advised to work on healthy diet choices and appropriate servings, weight control, regular exercise as directed, reduced fat intake, and salt avoidance. Patient voiced understanding of this and agrees to this plan. Nov, PCOS (polycystic ovarian syndrome) (ICD-10 - E28.2) Routine lab work ordered. She will continue to follow with OB-[facility] and continue healthy lifestyle changes that she [...] homicidal ideations. Started on Celexa by her [employer] [facility]. Very stable on Celexa 20 mg daily. [...] her ears still persist after starting this. [facility] Other 02-24-2022 Evaluation note* Encounter Date Diagnosis Assessment Notes Treatment Notes Treatment Clinical Notes Nov, Prediabetes (ICD-10 - R73.03) She was recently dx with prediabetes and was started on Metformin 500 mg BID 2 weeks ago by her OB-[facility]. She would like to follow with our [...] - E28.2) She is following with her OB-[facility] for her PCOS and is currently on Metformin 500 mg BID and is taking medication to help her get . She will continue to follow with OB[facility] and continue healthy lifestyle changes that she [...] of fatigue, difficulty losing weight by her [facility]. She would like to start following with [...] of this and agrees to this plan. [facility] Other Evaluation note* Diagnosis Onset Date Resolution Status 8 weeks gestation of acute Low back pain [facility] Work Phone: Evaluation note* Diagnosis 32 [...] THIRD NIPPLE REMOVED Surgical History Colonoscopy-normal 2018 [facility] Other Summary Purpose Family History No Family [...] Right ear pain (H92. 01) Referral Organization [facility] Referring Provider First Name [...] rangel DATE CREATED AUTHOR 'S ESMER FLORES 09/16/2024 [facility] dical Specialists EPIC Care Teams (unrecognized [...] February 13, 2024 End: February 13, 2024 General Cargo Clerk Relationship Specialty Start Date End Date Sandra Austin NP [address] [place] [id number] PCP - General 07/19/23 General Cargo Clerk Relationship Specialty Start Date End Date Sandra Austin NP [address] [place] [phone] PCP - General 07/19/23 General Cargo Clerk Relationship Specialty Start Date End Date Sandra Austin NP [address] [place] [address] PCP - General 07/19/23 General Cargo Clerk Relationship Specialty Start Date End Date Sandra Austin NP [address] [place] [address] PCP - General 07/19/23 General Cargo Clerk Relationship Specialty Start Date End Date Sandra Austin NP [address] [place] [address] PCP - General 07/19/23 General Cargo Clerk Relationship Specialty Start Date End Date Sandra Austin NP [address] [place] [address] PCP - General 07/19/23 Goals (unrecognized section [...] PRIMARY CLINICAL RECORDS. [facility] [employer] [facility]. provides no warranty or guarantee of the accuracy or completeness of information in this document.
--- NOTE | 2024-09-16 15:05 | US_ITS ---
[place] [id number] Patient Name: SOFIA ZEPEDA MRN: [id number]:[id number] date: 1995 Sex: F Assigned Patient Location: [facility] Current Patient Location: Accession/Order Number: [id number] Exam Date: 09/16/2024 15:07 Report Date: 09/17/2024 04:18 At the request of: AGUS SANTO Procedure: US OB BPP w non-stress EXAMINATION: US OB BPP w non-stress HISTORY:ABNORMAL TSH R79.69 COMPARISON: Ultrasound OB biophysical 09/09/2024 TECHNIQUE: Ultrasound biophysical profile was performed in the radiology department. BREATHING MOVEMENTS: 2 GROSS BODY MOVEMENTS: 2 TONE: 2 QUALITATIVE AMNIOTIC FLUID VOLUME: 2 PRESENTATION: CEPHALIC HEART RATE: 154.29 bpm AMNIOTIC FLUID VOLUME: 24.12 cm GESTATIONAL AGE: 38 weeks 5 days US/US OB BPP w non-stress IMPRESSION: Total biophysical profile score: 8 Electronically authenticated by: RAGINI SANTOS Date: 09/17/2024 04:18
[2024-09-16 15:31] VITALS: BP 118/81; PULSE 82
== END 2024-09-16 16:08 | disposition home or self-care (01) ==
LOC: US 07:01 → FBC 15:02
PROVIDERS: Visit Provider Obstetrics & Gynecology
DX: O99.283 Endocrine, nutritional and metabolic diseases complicating pregnancy, third trimester (principal); Z3A.38 38 weeks gestation of pregnancy
CPT/HCPCS: 76818

== ENCOUNTER 2024-09-21 04:59 | Inpatient (IN) | payer OTHER, SELFPAY ==
[2024-09-21] VITALS (37 sets, daily range): BP systolic 100–166; BP diastolic 54–100; PULSE 60–153; TEMP 36.1–36.8
--- OUTSIDE RECORDS SUMMARY | 2024-09-21 05:03 | XMS_ITS | CCD ---
Author Organization [facility] Care Team Providers Care Beam Dyer Name Role [facility] Unavailable KAP, SANDRA Primary Care Unavailable MARQUITA ., DR GOLDSMITH Attending Unavailable WEST, DR MANUELITO Foley Consulting Unavailable MARQUITA ., DR GOLDSMITH Admitting Unavailable MARQUITA ., DR OGLDSMITH Consulting Unavailable BRIAN, VIRGINIA Admitting Unavailable VIRGINIA [...] KARASIK ., DR HU Consulting Unavailabl e [place], DR MANUELITO Foley Consulting Unavailable MARQUITA ., DR GOLDSMITH Consulting Unavailable SANDRA AUSTIN Primary Care Unavailable MARQUITA ., DR GOLDSMITH Attending Unavailable MARYSOL, DR MANUELITO Foley Consulting Unavailable MARQUITA ., DR GOLDSMITH Admitting Unavailable MARQUITA ., DR GOLDSMITH Consulting Unavailable Ramonita Greenberg Unavailable Geovanna FOUNTAIN MANAGER, Sandra Hall Primary Care Provider [phone] AGUS JUÁREZ Attending Unavailable MARQUITA, AGUS Attending Unavailable MARQUITA, AGUS Attending Unavailable MARYLOU PRIEST Attending Unavailable MARQUITA, AGUS Attending Unavailable MARQUITA, AGUS Attending Unavailable MARQUITA, AGUS Attending Unavailable MARYLOU PRIEST Attending Unavailable MARQUITA, AGUS Attending Unavailable MARQUITA, AGUS Attending Unavailable MARQUITA, AGUS Attending Unavailable CEM, MARYLOU Attending Unavailable Medications Current Medications Medication [...] aspirin 81 mg delayed release oral tablet (11 sources) Platelet Aggregation Inhibitor, Nonsteroidal Anti-inflammatory Drug [...] Active cetirizine hydrochloride 10 mg oral tablet (20 sources) Histamine-1 Receptor Antagonist Start: 10-23-2019 take 30 mg by mouth once daily Cetirizine Active 30 MG PO Daily October 23, 2019 1:00am take 1 tablet by mouth once lolis y cetirizine (ZyrTEC) 10 MG tablet Take 10 mg by mouth Daily Active cholecalciferol 0.025 mg oral tablet (20 sources) Vitamin D Start: 02-13-2024 take 1 [...] May, Active citalopram 20 mg oral tablet (17 sources) Serotonin Reuptake Inhibitor Start: 08-04-2024 End: [...] mg oral tablet (20 sources) l-Thyroxine Start: 024 take 1 tablet by mouth once daily [...] e magnesium oxide 400 mg oral tablet (7 sources) take 1 tablet by mouth at bedtime magnesium oxide (Mag-Ox) 400 mg tablet Take 400 mg by mouth at bedtime Active metFORMIN hydrochloride 500 mg oral tablet (1 source) Biguanide take 1 tablet by mouth every twelve hours metFORMIN HCl 500 MG 1 tablet with a meal Orally twice a day Active ondansetron 4 mg disintegrating oral tablet (6 sources) Serotonin-3 Receptor Antagonist Start: 08-25-20 End: [...] Every 8 hours February 13, 2024 12:00am pantoprazole 20 mg delayed release oral tablet (1 source) Proton Pump Inhibitor Start: 09-02-2024 End: 09-02-2025 take 1 tablet by mouth before mealtime pantoprazole (Protonix) 20 MG EC tablet Indications: Heartburn during in third trimester Take 1 tablet (20 mg) by mouth in the morning. Take before meals. Do not crush, chew, or split.. 30 tablet 11 09/02/2024 09/02/2025 Active polymyxin b 84387 unt/ml / trimethoprim 1 mg/ml ophthalmic solution (3 sources) Dihydrofolate Reductase Inhibitor Antibacterial, Polymyxin-class Antibacterial Start: 01-04-2023 Polymyxin B-Trimethoprim 51718-2.1 UNIT/ML 1 drop into affected eye Ophthalmic every 3 hours up to six times daily for 7 days Dec, Active (10 sources) Active Bwsreauw-Rxs-Aw-FA ( 1 + IRON PO) (11 sources) Hjaoqhsa-Rsq-Zl-FA ( 1 + IRON PO) Take by [...] acid 7540 MG / polyethylene glycol 3350 34981 MG / potassium chloride 1200 MG / sodium ascorbate 14988 MG / sodium chloride 3200 MG Powder for Oral Solution) / 1 (polyethylene glycol 3350 437543 MG / potassium chloride 1000 MG / [...] 23, 2019 1:00am February 13, 2024 11:15am famotidine 20 mg oral tablet (5 sources) Histamine-2 Receptor Antagonist Start: 08-25-2024 End: 09-24-2024 take 1 tablet by mouth once daily famotidine (Pepcid) 20 MG tablet Indications: Gastroesophageal Reflux Disease , Heartburn Take 1 tablet (20 mg) by mouth Daily 30 tablet 3 08/25/2024 09/08/2024 Discontinued fluconazole 150 mg oral tablet (1 source) [...] as acute or chronic Episodic Esophageal disorders (10 sources) Gastro-esophageal reflux disease without esophagitis; Translations: [Gastroesophageal reflux disease] Onset: 09-17-2022 08-18-2024 Chronic Hypertension complicating ; childbirth and the puerperium (8 sources) Unspecified maternal hypertension, third trimester; Translations: [Unspecified pre-existing hypertension complicating , third trimester] Onset: 08-17-2022 Chronic Inflammation; infection of eye (except that caused by tuberculosis or sexually transmitteddisease) (1 source) Unspecified conjunctivitis Episodic Nausea and vomiting (9 sources) Nausea and vomiting; Translations: [Nausea with [...] of ] 08-04-2024 Episodic Residual codes; unclassified (9 sources) Gestation period, 34 weeks; Translations: [34 [...] Problem Date Documented Date Episodic/Chronic Abdominal pain (13 sources) Left lower quadrant pain; Translations: [Abdominal [...] Episodic Other ear and sense organ disorders (12 sources) Otalgia, right ear; Translations: [Otalgia, unspecified] [...] UA Negative Negative - 4(70) +++ mg/dL [facility] Blood, UA Negative Negative - 50 Jose Manuel/mcL [facility] Clarity, UA Clear [facility] re Color, UA Yellow [facility] Glucose, UA Negative Negative - 1999(110) ++++ mg/dL [facility] Interpretation and review of laboratory results Abnormal [facility] Ketones, UA Negative Negative - 160(16) ++++ mg/dL [facility] Leukocytes, UA Trace Negative - 500+++ Alexys/mcL [facility] Nitrite, UA Negative Negative - Positive [facility] pH, UA 7 5 - 9 [facility] e Protein, UA Negative Negative - 1999(20) ++++ mg/dL [facility] Spec Grav, UA 1.015 1 - 1.03 [facility] Urobilinogen, UA 0.2 0.2 - 12 mg/dL [facility] ALL THYROID STIM HORMONEon 1 10-29-2023 TSH Qn 0.716 m[IU]/L [facility] Urinalysis macro (dipstick) panel (U)on 08-18-2024 Bilirubin, UA Negative Negative - 4(70) +++ mg/dL [facility] Blood, UA Negative Negative - 50 Jose Manuel/mcL [facility] Clarity, UA Clear [facility] re Color, UA Yellow [facility] Glucose, UA Negative Negative - 1999(110) ++++ mg/dL [facility] Interpretation and review of laboratory results Normal [facility] Ketones, UA Negative Negative - 160(16) ++++ mg/dL [facility] Leukocytes, UA Negative Negative - 500+++ Alexys/mcL [facility] Nitrite, UA Negative Negative - Positive [facility] pH, UA 6.5 5 - 9 [facility] Protein, UA Negative Negative - 1999(20) ++++ mg/dL [facility] Spec Grav, UA 1.01 1 - 1.03 [facility] Urobilinogen, UA 0.2 0.2 - 12 mg/dL [facility] Urinalysis macro (dipstick) panel (U)on 08-04-2024 Bilirubin, UA Negative Negative - 4(70) +++ mg/dL [facility] Blood, UA Negative Negative - 50 Jose Manuel/mcL [facility] Clarity, UA Clear [facility] re Color, UA Yellow [facility] Glucose, UA Negative Negative - 1999(110) ++++ mg/dL [facility] Interpretation and review of laboratory results Abnormal [facility] Ketones, UA Negative Negative - 160(16) ++++ mg/dL [facility] Leukocytes, UA Trace Negative - 500+++ Alexys/mcL [facility] Nitrite, UA Negative Negative - Positive [facility] pH, UA 7.0 5 - 9 [facility] Protein, UA Negative Negative - 1999(20) ++++ mg/dL [facility] Spec Grav, UA 1.015 1 - 1.03 [facility] Urobilinogen, UA 0.2 0.2 - 12 mg/dL [facility] Human papilloma virus 16+18+ 31+33+35+39+45+51+52+56+58+59+66+68 DNA [Presence] in Anders 12-16-2023 HPV 16+18+31+33+35+39+45 +51+52+56+58+59+66+6 8 DNA Probe+sig amp Ql (Cvx) Note . [facility] Comment on above: TESTS RESULT FLAG UN ITS REF RANGE LAB DI AGNOSIS: 02 NEGATIVE FOR INTRAEPITHELIAL LESION OR MALIGNANCY.Specimen adequacy: 02 Satisfactory for evaluation. Endocervical and/or squamous metaplastic cells (endocervical component) are present.Performed by: 02 Raeann Duran, Textile Engraver ([facility]). 02Note: Note 02 The Pap smear is a screening test designed to aid in the detection of premalignant and malignant conditions of the uterine cervix. It is not a diagnostic procedure and should not be used as the sole means of detecting cervical cancer. Both false-positive and false-negative reports do occur.Test Methodology: Note 02 The [employer](R) Curriculum And Assessment Director was unable to read this specimen. Therefore a manual review was performed. ----- FLAG LEGEND: L-Low Normal,H-High Normal,LL-Alert Low,HH-Alert High <-Panic Low,>-Panic High,A-Abnormal,AA-Critical Abnormal ---Performed at:[address] [place] [address] Heavenly Serrano MD, . 02 The HPV DNA reflex criteria were not met with this specimen result therefore, no HPV testing was performed.The HPV DNA reflex criteria were not met with this specimenresult therefore, no HPV testing was performed.Performed at: = - [address] [id number] Director: Heavenly Serrano MD, Phone: [phone] at: [address] [id number] Director: Heavenly Serrano MD, Phone: [phone] No Panel Informationon 12-16 Reference Lab Test Patient Age Note . [facility] Comment on above: TESTS RESULT FLAG UN ITS REF RANGE LAB Clinician Provided Cytology Information Source.............Cervix No. of containers..01 ThinPrep VialAge Zhen PUENTES Leslye... FLAG LEGEND: L-Low Normal,H-High Normal,LL-Alert Low,HH-Alert High <-Panic Low,>-Panic High,A-Abnormal,AA-Critical Abnormal ---Performed at:01 =G [address] [address] Heavenly Serrano MD, A1C HEMOGLOBINon 10-31-2023 HbA1c (Bld) [Mass fraction] 5.8 % [employer] Other HbA1c (Bld) [Mass fraction]o n 10-31-2023 A1C HEMOGLOBIN [employer] Other A1C HEMOGLOBINon 06-24-2023 HbA1c (Bld) [Mass fraction] 5.2 % [employer] Other HbA1c (Bld) [Mass fraction]o n 06-24-2023 A1C HEMOGLOBIN [employer] Other Quick Strepon 04-15-2023 S. pyogenes Org specific cx Ql (Throat) Positive [employer] Other Quick Strep [employer] Other FREE T4on 02-21-2023 Free T4 [Mass/Vol] 0.89 ng/dL Normal 0.76-1.46 [facility] Comment on above: Performed By: #### H H #### [facility] [address] [place] [address] Dr. Bella Jerome PROF 14(COMP METB)on 023 Albumin [Mass/Vol] 3.7 g/dL Normal 3.4-5.0 [facility] Comment on above: Performed By: #### H H #### [facility] [address] [place] [address] Dr. Bella Jerome Albumin/Globulin [Mass ratio] 0.9 {ratio} Normal [facility] Comment on above: Performed By: #### H H #### [facility] [address] [place] [address] Dr. Bella Jerome ALP [Catalytic activity/Vol] 132 U/L Critically high 46-116 [facility] Comment on above: Performed By: #### H H #### [facility] [address] [place] [address] Dr. Bella Jerome ALT [Catalytic activity/Vol] 32 U/L Normal 14-59 [facility] Comment on above: Performed By: #### H H #### [facility] [address] [place] [address] Dr. Bella Jerome Anion gap [Moles/Vol] 12.8 mmol/L Normal [facility] Comment on above: Performed By: #### H H #### [facility] [address] [place] [address] Dr. Bella Jerome AST [Catalytic activity/Vol] 23 U/L Normal 15-37 [facility] Comment on above: Performed By: #### H H #### [facility] [address] [place] [address] Dr. Bella Jerome Bilirubin [Mass/Vol] 0.6 mg/dL Normal 0.2-1.0 [facility] Comment on above: Performed By: #### H H #### [facility] [address] [place] [address] Dr. Bella Jerome Calcium [Mass/Vol] 9.0 mg/dL Normal 8.5-10.1 [facility] Comment on above: Performed By: #### H H #### [facility] [address] [place] [address] Dr. Bella Jerome Chloride [Moles/Vol] 102 mmol/L Normal 98-107 [facility] Comment on above: Performed By: #### H H #### [facility] [address] [address] [address] Bella Jerome CO2 [Moles/Vol] 28.2 mmol/L Normal 21.0-32.0 [facility] Comment on above: Performed By: #### H H #### [facility] [address] [place] [address] Dr. Bella Jerome Creatinine [Mass/Vol] 0.67 mg/dL Normal 0.55-1.02 [facility] Comment on above: Performed By: #### H H #### [facility] [address] [place] [address] Dr. Bella Jerome EGFR-AF TRISTANIAN >60 Normal >=60 [facility] Comment on above: Performed By: #### H H #### [facility] [address] [place] [address] Dr. Bella Jerome EGFR-NON AF TRISTANIAN >60 Normal >=60 [facility] Comment on above: Performed By: #### H H #### [facility] [address] [place] [address] Dr. Bella Jerome Globulin (S) [Mass/Vol] 4.2 g/dL Normal [facility] Comment on above: Performed By: #### H H #### [facility] [address] [place] [address] Dr. Bella Jerome Glucose [Mass/Vol] 88 mg/dL Normal 74-106 [facility] Comment on above: Performed By: #### H H #### [facility] [address] [place] [address] Dr. Bella Jerome Potassium [Moles/Vol] 4.0 mmol/L Normal 3.5-5.1 [facility] Comment on above: Performed By: #### H H #### [facility] [address] [address] [address] Bella Jerome Protein [Mass/Vol] 7.9 g/dL Normal 6.4-8.2 [facility] Comment on above: Performed By: #### H H #### [facility] [address] [address] [address] Bella Jerome Sodium [Moles/Vol] 139 mmol/L Normal 136-145 [facility] Comment on above: Performed By: #### H H #### [facility] [address] [address] [address] Bella Jerome Urea nitrogen [Mass/Vol] 12.0 mg/dL Normal 7.0-18.0 [facility] Comment on above: Performed By: #### H H #### [facility] [address] [place] [address] Dr. Bella Jerome Urea nitrogen/Creatinine [Mass ratio] 17.9 mg/mg Normal [facility] Comment on above: Performed By: #### H H #### [facility] [address] [address] [address] Bella Jerome TSHon 02-21-2023 TSH 2.463 uIU/mL Normal 0.358-3.740 [facility] Comment on above: Performed By: #### H H #### [facility] [address] [place] [address] Dr. Bella Jerome VITAMIN D 25 OHon 02-21-2023 VIT D 25-OH 23.1 ng/mL Normal [facility] Comment on above: Performed By: #### H H #### [facility] [address] [place] [address] Dr. Bella Jerome VIT D RANGES SEE BELOW Normal [facility] Comment on above: Result Comment: <20 ng/mL Vit D deficient 20 - <30 ng/mL Vit D insufficient 30 - 100 ng/mL Vit D sufficient >100 ng/mL Potential Toxicity Performed By: #### H H #### [facility] [address] [place] [address] Dr. Bella Jerome CBC AUTO DIFFon 12-26-2022 BASO # 0.0 103/ul Normal 0.0-0.1 [facility] Comment on above: Performed By: #### C BC #### [facility] [address] [place] [address] Dr. Bella Jerome Basophils/100 WBC (Bld) 0.3 % Normal 0.2-2.0 [facility] Comment on above: Performed By: #### C BC #### [facility] [address] [place] [address] Dr. Bella Jerome EO # 0.1 103/ul Normal 0.0-0.7 [facility] Comment on above: Performed By: #### C BC #### [facility] [address] [place] [address] Dr. Bella Jerome Eosinophils/100 WBC (Bld) 1.6 % Normal 0.9-7.0 [facility] Comment on above: Performed By: #### C BC #### [facility] [address] [place] [address] Dr. Bella Jerome Erythrocyte distribution width (RBC) [Ratio] 12.7 % Normal 11.0-15.0 [facility] Comment on above: Performed By: #### C BC #### [facility] [address] [place] [address] Dr. Bella Jerome Hematocrit (Bld) [Volume fraction] 37.2 % Normal 36.0-48.0 [facility] Comment on above: Performed By: #### C BC #### [facility] [address] [place] [address] Dr. Bella Jerome Hemoglobin (Bld) [Mass/Vol] 12.5 g/dL Normal 12.0-16.0 [facility] Comment on above: Performed By: #### C BC #### [facility] [address] [place] [address] Dr. Bella Jerome IG # 0.02 10e3/ul Normal 0.00-0.03 [facility] Comment on above: Performed By: #### C BC #### [facility] [address] [place] [address] Dr. Bella Jerome IG % 0.3 % Normal 0.0-0.5 [facility] Comment on above: Performed By: #### C BC #### [facility] [address] [place] [address] Dr. Bella Jerome LYMPH # 2.3 103/ul Normal 1.2-3.8 [facility] Comment on above: Performed By: #### C BC #### [facility] [address] [place] [address] Dr. Bella Jerome Lymphocytes/100 WBC (Bld) 34.1 % Normal 20.5-60.0 [facility] Comment on above: Performed By: #### C BC #### [facility] [address] [place] [address] Dr. Bella Jerome MANUAL DIFF REQ NO Normal [facility] Comment on above: Performed By: #### C BC #### [facility] [address] [place] [address] Dr. Bella Jerome MCH (RBC) [Entitic mass] 30.9 pg Normal 26.7-34.0 [facility] Comment on above: Performed By: #### C BC #### [facility] [address] [place] [address] Dr. Bella Jerome MCHC (RBC) [Mass/Vol] 33.6 g/dL Normal 29.9-35.2 [facility] Comment on above: Performed By: #### C BC #### [facility] [address] [place] [address] Dr. Bella Jerome MCV (RBC) [Entitic vol] 91.9 fL Normal 81.0-99.0 [facility] Comment on above: Performed By: #### C BC #### [facility] [address] [place] [address] Dr. Bella Jerome MONO # 0.4 103/ul Normal 0.3-0.8 [facility] Comment on above: Performed By: #### C BC #### [facility] [address] [place] [address] Dr. Bella Jerome Monocytes/100 WBC (Bld) 5.1 % Normal 1.7-12.0 [facility] Comment on above: Performed By: #### C BC #### [facility] [address] [address] [address] Bella Jerome NEUT # 4.0 103/ul Normal 1.4-6.5 [facility] Comment on above: Performed By: #### C BC #### [facility] [address] [address] [address] Bella Jerome Neutrophils/100 WBC (Bld) 58.6 % Normal 43.0-75.0 [facility] Comment on above: Performed By: #### C BC #### [facility] [address] [address] [address] Bella Jerome Platelet mean volume (Bld) [Entitic vol] 11.5 fL Normal 9.5-13.5 [facility] Comment on above: Performed By: #### C BC #### [facility] [address] [address] [address] Bella Jerome PLT 243 103/ul Normal 150-450 [facility] Comment on above: Performed By: #### C BC #### [facility] [address] [address] [address] Bella Jerome RBC 4.05 106/ul Critically low 4.20-5.40 [facility] Comment on above: Performed By: #### C BC #### [facility] [address] [address] [address] Bella Jerome WBC 6.8 103/ul Normal 4.0-11.0 [facility] Comment on above: Performed By: #### C BC #### [facility] [address] [address] [address] Bella Jerome FREE T4on 12-26-2022 Free T4 [Mass/Vol] 1.05 ng/dL Normal 0.76-1.46 [facility] Comment on above: Performed By: #### F T4, VITAD, B12FOL, IRON ####[facility] [id number] [address]Dr. Bella Jerome GLYCOHEMOGLOBIN A1Con 2022 ADA RECOMMENDATION SEE BELOW Normal [facility] Comment on above: Result Comment: ADA RECOMMENDED LIMIT 4.0 - 6.0 ADA THERAPEUTIC TARGET < 7.0 ACTION SUGGESTED > 7.0 Performed By: #### A 1C #### [facility] [address] [address] [address] Bella Jerome Glucose [Mass/Vol] 103 mg/dL Normal [facility] Comment on above: Performed By: #### A 1C #### [facility] [address] [address] [address] Bella Jerome HbA1c (Bld) [Mass fraction] 5.2 % Normal 4.5-6.2 [facility] Comment on above: Performed By: #### A 1C #### [facility] [address] [address] [address] Bella Jerome IRONon 12-26-2022 Iron [Mass/Vol] 74.0 ug/dL Normal 50.0-170.0 [facility] Comment on above: Performed By: #### F T4, VITAD, B12FOL, IRON ####[facility] [id number] [address]Dr. Bella Jerome LIPID PROFILEon 12-26-2022 CHOL-HDL RATIO NORM SEE BELOW Normal [facility] Comment on above: Result Comment: 3.3 - 4.4 LOW RISK 4.4 - 7.1 AVERAGE RISK 7.1 - 11.0 MODERATE RISK >11.0 HIGH RISK Performed By: #### C MP, TSH, LIPID #### [facility] [address] [address] [address] Bella Jerome Cholesterol [Mass/Vol] 153 mg/dL Normal <=200 [facility] Comment on above: Performed By: #### C MP, TSH, LIPID #### [facility] [address] [address] [address] Bella Jerome Cholesterol in HDL [Mass/Vol] 67 mg/dL Critically high 40-60 [facility] Comment on above: Performed By: #### C MP, TSH, LIPID #### [facility] [address] [address] [address] Bella Jerome Cholesterol in LDL [Mass/Vol] 77.2 mg/dL Normal [facility] Comment on above: Performed By: #### C MP, TSH, LIPID #### [facility] [address] [address] [address] Bella Jerome Cholesterol.total/Ch olesterol in HDL [Mass ratio] 2.3 {ratio} Normal [facility] Comment on above: Performed By: #### C MP, TSH, LIPID #### [facility] [address] [address] [address] Bella Jerome HDL NORMAL > or = 60 mg/dl - LOW CARDIOVASCULAR RISK <40 mg/dl - HIGH CARDIOVASCULAR RISK Normal [facility] Comment on above: Performed By: #### C MP, TSH, LIPID #### [facility] [address] [place] [address] Dr. Bella Jerome LDL CALC NORMAL SEE BELOW Normal [facility] Comment on above: Result Comment: <100 mg/dl OPTIMAL 100 - 129 mg/dl NEAR OR ABOVE OPTIMAL 130 - 159 mg/dl BORDERLINE HIGH 160 - 189 mg/dl HIGH >190 mg/dl VERY HIGH Performed By: #### C MP, TSH, LIPID #### [facility] [address] [place] [address] Dr. Bella Jerome Triglyceride [Mass/Vol] 44 mg/dL Normal <=150 [facility] Comment on above: Performed By: #### C MP, TSH, LIPID #### [facility] [address] [place] [address] Dr. Bella Jerome VLDL CALC 8.8 mg/dL Normal [facility] Comment on above: Performed By: #### C MP, TSH, LIPID #### [facility] [address] [address] Dr. Bella Jerome MICROALB CREAT RATIO RANDOMo n 12-26-2022 mALB 2.3 mg/L Normal <=30.0 [facility] Comment on above: Performed By: #### H H #### [facility] [address] [place] [address] Dr. Bella Jerome MALB CR RATIO 17.4 mg/g Normal 0.0-29.9 [facility] Comment on above: Performed By: #### H H #### [facility] [address] [address] [address] Bella Jerome MALB CR RATIO RANGE SEE BELOW Normal [facility] Comment on above: Result Comment: NO M ICROALBUMINURIA 0-29 MG/G CLINICAL MICROALBUMINURIA 30-300 MG/G MACROALBUMINURIA >300 MG/G Performed By: #### H H #### [facility] [address] [address] [address] Bella Jerome URINE CREAT 131.90 mg/dL Normal 20.00-300.00 [facility] Comment on above: Performed By: #### H H #### [facility] [address] [place] [address] Dr. Bella Jerome PROF 14(COMP METB)on 023 Albumin [Mass/Vol] 4.1 g/dL Normal 3.4-5.0 [facility] Comment on above: Performed By: #### C MP, TSH, LIPID #### [facility] [address] [place] [address] Dr. Bella Jerome Albumin/Globulin [Mass ratio] 1.3 {ratio} Normal [facility] Comment on above: Performed By: #### C MP, TSH, LIPID #### [facility] [address] [place] [address] Dr. Bella Jerome ALP [Catalytic activity/Vol] 124 U/L Critically high 46-116 [facility] Comment on above: Performed By: #### C MP, TSH, LIPID #### [facility] [address] [address] [address] Bella Jerome ALT [Catalytic activity/Vol] 16 U/L Normal 14-59 [facility] Comment on above: Performed By: #### C MP, TSH, LIPID #### [facility] [address] [address] [address] Bella Jerome Anion gap [Moles/Vol] 13.4 mmol/L Normal [facility] Comment on above: Performed By: #### C MP, TSH, LIPID #### [facility] [address] [address] [address] Bella Jerome AST [Catalytic activity/Vol] 17 U/L Normal 15-37 [facility] Comment on above: Performed By: #### C MP, TSH, LIPID #### [facility] [address] [address] [address] Bella Jerome Bilirubin [Mass/Vol] 0.8 mg/dL Normal 0.2-1.0 [facility] Comment on above: Performed By: #### C MP, TSH, LIPID #### [facility] [address] [address] [address] Bella Jerome Calcium [Mass/Vol] 8.9 mg/dL Normal 8.5-10.1 [facility] Comment on above: Performed By: #### C MP, TSH, LIPID #### [facility] [address] [place] [address] Dr. Bella Jerome Chloride [Moles/Vol] 103 mmol/L Normal 98-107 [facility] Comment on above: Performed By: #### C MP, TSH, LIPID #### [facility] [address] [address] [address] Bella Jerome CO2 [Moles/Vol] 25.6 mmol/L Normal 21.0-32.0 [facility] Comment on above: Performed By: #### C MP, TSH, LIPID #### [facility] [address] [address] [address] Bella Jerome Creatinine [Mass/Vol] 0.55 mg/dL Normal 0.55-1.02 [facility] Comment on above: Performed By: #### C MP, TSH, LIPID #### [facility] [address] [address] [address] Bella Jerome EGFR-AF TRISTANIAN >60 Normal >=60 [facility] Comment on above: Performed By: #### C MP, TSH, LIPID #### [facility] [address] [address] [address] Bella Jerome EGFR-NON AF TRISTANIAN >60 Normal >=60 [facility] Comment on above: Performed By: #### C MP, TSH, LIPID #### [facility] [address] [address] [address] Bella Jerome Globulin (S) [Mass/Vol] 3.1 g/dL Normal [facility] Comment on above: Performed By: #### C MP, TSH, LIPID #### [facility] [address] [address] [address] Bella Jerome Glucose [Mass/Vol] 82 mg/dL Normal 74-106 [facility] Comment on above: Performed By: #### C MP, TSH, LIPID #### [facility] [address] [place] [address] Dr. eBlla Jerome Potassium [Moles/Vol] 4.0 mmol/L Normal 3.5-5.1 [facility] Comment on above: Performed By: #### C MP, TSH, LIPID #### [facility] [address] [place] [address] Dr. Bella Jerome Protein [Mass/Vol] 7.2 g/dL Normal 6.4-8.2 [facility] Comment on above: Performed By: #### C MP, TSH, LIPID #### [facility] [address] [place] [address] Dr. Bella Jerome Sodium [Moles/Vol] 138 mmol/L Normal 136-145 [facility] Comment on above: Performed By: #### C MP, TSH, LIPID #### [facility] [address] [place] [address] Dr. Bella Jerome Urea nitrogen [Mass/Vol] 14.0 mg/dL Normal 7.0-18.0 [facility] Comment on above: Performed By: #### C MP, TSH, LIPID #### [facility] [address] [place] [address] Dr. Bella Jerome Urea nitrogen/Creatinine [Mass ratio] 25.5 mg/mg Normal [facility] Comment on above: Performed By: #### C MP, TSH, LIPID #### [facility] [address] [place] [address] Dr. Bella Jerome TSHon 03-01-2023 TSH 0.224 uIU/mL Critically low 0.358-3.740 [facility] Comment on above: Performed By: #### C MP, TSH, LIPID #### [facility] [address] [address] [address] Bella Jerome VIT B12 AND FOLATEon 023 Cobalamin (Vitamin B12) [Mass/Vol] 702.0 pg/mL Normal 193.0-986.0 [facility] Comment on above: Performed By: #### F T4, VITAD, B12FOL, IRON ####[facility] [address] [id number] Jerome FOLATE 25.10 ng/mL Normal 8.60-58.90 [facility] Comment on above: Performed By: #### F T4, VITAD, B12FOL, IRON ####[facility] [address] [address]DrWill Jerome VITAMIN D 25 OHon 12-26-2022 VIT D 25-OH 25.4 ng/mL Normal [facility] Comment on above: Performed By: #### F T4, VITAD, B12FOL, IRON ####[facility] [address] [address]Dr. Bella Jerome VIT D RANGES SEE BELOW Normal [facility] Comment on above: Result Comment: <20 ng/mL Vit D deficient 20 - <30 ng/mL Vit D insufficient 30 - 100 ng/mL Vit D sufficient >100 ng/mL Potential Toxicity Performed By: #### F T4, VITAD, B12FOL, IRON ####[facility] [address] [id number] Jerome PAP ACOG PANEL 2: 23 to 31on 12-18-2022 . . Normal [facility] Comment on above: Performed By: #### C BC #### [facility] [address] [place] [address] Dr. Bella Jerome Age Gdln ACOG Testing 21-29 Normal [facility] Comment on above: Performed By: #### C BC #### [facility] [address] [place] [address] Dr. Bella Jerome DIAGNOSIS: Comment Normal [facility] Comment on above: Result Comment: NEGA TIVE FOR INTRAEPITHELIAL LESION OR MALIGNANCY. Performed By: #### C BC #### [facility] [address] [place] [address] Dr. Bella Jerome Methodology: Comment Normal [facility] Comment on above: Result Comment: This liquid based ThinPrep(R) pap test was screened with the use of an image guided system. Performed By: #### C BC #### [facility] [address] [place] [address] Dr. Bella Jerome Note: Comment Normal [facility] Comment on above: Result Comment: The Pap smear is a screening test designed to aid in the detection of premalignant and malignant conditions of the uterine cervix. It is not a diagnostic procedure and should not be used as the sole means of detecting cervical cancer. Both false-positive and false-negative reports do occur. . Performed By: #### C BC #### [facility] [address] [place] [address] Dr. Bella Jerome Performed by: Comment Normal [facility] Comment on above: Result Comment: Byron Irby, Textile Engraver (ASCP) Performed By: #### C BC #### [facility] [address] [place] [address] Dr. Bella Jerome Reflex Criteria: Comment Normal [facility] Comment on above: Result Comment: The HPV DNA reflex criteria were not met with this specimen result therefore, no HPV testing was performed. . Performed By: #### C BC #### [facility] [address] [place] [address] Dr. Bella Jerome Specimen adequacy: Comment Normal [facility] Comment on above: Result Comment: Sati sfactory for evaluation. Endocervical and/or squamous metaplastic cells (endocervical component) are present. Performed By: #### C BC #### [facility] [address] [place] [address] Dr. Bella Jerome CBC W MANUAL DIFFon 09-07-20 22 ATYPICAL LYMPH # Normal [facility] Comment on above: Performed By: #### C BCMAN ####[facility] [address] [id number]. Bella Jerome ATYPICAL LYMPH % Normal [facility] Comment on above: Performed By: #### C PEDRO ####[facility] [address] [address]Dr. Yilan Jerome BAND # 0.2 103/ul Normal 0.0-0.3 [facility] Comment on above: Performed By: #### C PEDRO ####[facility] [address] [address]Dr. Yilan Jerome BAND % 1 % Normal 0-5 [facility] Comment on above: Performed By: #### C PEDRO ####[facility] [address] [address]Dr. Yiwally Jerome BASOM # 0.00 103/ul Normal 0.00-0.10 [facility] Comment on above: Performed By: #### C PEDRO ####[facility] [address] [place], [place] [address]Dr. Yiwally Jerome BASOM % 0.0 % Critically low 0.2-2.0 [facility] Comment on above: Performed By: #### C PEDRO ####[facility] [address] [place], [place] [address]Dr. Yiwally Jerome BLAST # Normal [facility] Comment on above: Performed By: #### C PEDRO ####[facility] [address] [address]Dr. Yiwally Jerome BLAST % Normal [facility] Comment on above: Performed By: #### C PEDRO ####[facility] [address] [address]Dr. Bella Jerome CORRECTED WBC Normal 4.0-11.0 [facility] Comment on above: Performed By: #### C PEDRO ####[facility] [address] [address]Dr. Yilan Jerome EOS # 0.00 103/ul Normal 0.00-0.70 [facility] Comment on above: Performed By: #### C PEDRO ####[facility] [address] [place], [place] [address]Rq. Bella Jerome EOS% 0.0 % Critically low 0.9-7.0 [facility] Comment on above: Performed By: #### C PEDRO ####[facility] [address] [place], [place] [address]Zi. Bella Jerome HCT 30.5 % Critically low 36.0-48.0 [facility] Comment on above: Performed By: #### C PEDRO ####[facility] [address] [place], [place] [address]Mn. Bella Jerome HGB 10.5 g/dl Critically low 12.0-16.0 [facility] Comment on above: Performed By: #### C PEDRO ####[facility] [address] [address]Dr. Bella Jerome LYMPHM # 2.78 103/ul Normal 1.20-3.80 [facility] Comment on above: Performed By: #### C PEDRO ####[facility] [address] [address]Dr. Bella Jerome LYMPHM% 13.0 % Critically low 20.5-60.0 [facility] Comment on above: Performed By: #### C PEDRO ####[facility] [address] [address]Dr. Bella Jerome MCH 32.8 pg Normal 26.7-34.0 [facility] Comment on above: Performed By: #### C PEDRO ####[facility] [address] [place], [place] [address]Ic. Bella Jerome MCHC 34.4 g/dl Normal 29.9-35.2 [facility] Comment on above: Performed By: #### C PEDRO ####[facility] [address] [place], [place] [address]Ct. Bella Jerome MCV 95.3 fL Normal 81.0-99.0 [facility] Comment on above: Performed By: #### C PEDRO ####[facility] [address] [address]Dr. Bella Jerome METAMYELOCYTE # Normal [facility] Comment on above: Performed By: #### C PEDRO ####[facility] [address] [address]Dr. Bella Jerome METAMYELOCYTE % Normal [facility] Comment on above: Performed By: #### C PEDRO ####[facility] [address] [address]Dr. Bella Jerome MONOM# 2.35 103/ul Critically high 0.30-0.80 [facility] Comment on above: Performed By: #### C PEDRO ####[facility] [address] [address]Dr. Bella Jerome MONOM% 11.0 % Normal 1.7-12.0 [facility] Comment on above: Performed By: #### C PEDRO ####[facility] [address] [address]Dr. Bella Jerome MPV 11.1 fL Normal 9.5-13.5 [facility] Comment on above: Performed By: #### C PEDRO ####[facility] [address] [address]Dr. Bella Jermoe MYELOCYTE # Normal [facility] Comment on above: Performed By: #### C PEDRO ####[facility] [address] [address]Dr. Bella Jerome MYELOCYTE % Normal [facility] Comment on above: Performed By: #### C PEDRO ####[facility] [address] [address]Dr. Bella Jerome NRBC Normal [facility] Comment on above: Performed By: #### C PEDRO ####[facility] [address] [address]Dr. Bella Jerome PLT 227 103/ul Normal 150-450 [facility] Comment on above: Performed By: #### C PEDRO ####[facility] [address] [address]Dr. Bella Jerome RBC 3.20 106/ul Critically low 4.20-5.40 [facility] Comment on above: Performed By: #### C BCMAN ####[facility] [address] [address]Dr. Bella Jerome RDW 12.8 % Normal 11.0-15.0 [facility] Comment on above: Performed By: #### C BCMAN ####[facility] [address] [address]DrWill Jerome SEG # 16.05 103/ul Critically high 1.40-6.50 [facility] Comment on above: Performed By: #### C BCMAN ####[facility] [address] [address]DrWill Jerome SEG % 75.0 % Normal 43.0-75.0 [facility] Comment on above: Performed By: #### C BCMAN ####[facility] [address] [address]DrWill Jerome WBC 21.4 103/ul Critically high 4.0-11.0 [facility] Comment on above: Performed By: #### C BCMAN ####[facility] [address] [address]Dr. Bella Jerome CBC AUTO DIFFon 09-05-2022 BASO # 0.0 103/ul Normal 0.0-0.1 [facility] Comment on above: Performed By: #### C BC #### [facility] [address] [address] [address] Bella Jerome Basophils/100 WBC (Bld) 0.2 % Normal 0.2-2.0 [facility] Comment on above: Performed By: #### C BC #### [facility] [address] [address] [address] Bella Jerome EO # 0.1 103/ul Normal 0.0-0.7 [facility] Comment on above: Performed By: #### C BC #### [facility] [address] [address] [address] Bella Jerome Eosinophils/100 WBC (Bld) 0.6 % Critically low 0.9-7.0 [facility] Comment on above: Performed By: #### C BC #### [facility] [address] [place] [address] Dr. Bella Jerome Erythrocyte distribution width (RBC) [Ratio] 12.6 % Normal 11.0-15.0 [facility] Comment on above: Performed By: #### C BC #### [facility] [address] [place] [address] Dr. Bella Jerome Hematocrit (Bld) [Volume fraction] 32.5 % Critically low 36.0-48.0 [facility] Comment on above: Performed By: #### C BC #### [facility] [address] [place] [address] Dr. Bella Jerome Hemoglobin (Bld) [Mass/Vol] 11.1 g/dL Critically low 12.0-16.0 [facility] Comment on above: Performed By: #### C BC #### [facility] [address] [place] [address] Dr. Bella Jerome IG # 0.14 10e3/ul Critically high 0.00-0.03 [facility] Comment on above: Performed By: #### C BC #### [facility] [address] [place] [address] Dr. Bella Jerome IG % 1.1 % Critically high 0.0-0.5 [facility] Comment on above: Performed By: #### C BC #### [facility] [address] [place] [address] Dr. Bella Jerome LYMPH # 2.6 103/ul Normal 1.2-3.8 [facility] Comment on above: Performed By: #### C BC #### [facility] [address] [place] [address] Dr. Bella Jerome Lymphocytes/100 WBC (Bld) 20.2 % Critically low 20.5-60.0 [facility] Comment on above: Performed By: #### C BC #### [facility] [address] [place] [address] Dr. Bella Jerome MANUAL DIFF REQ NO Normal [facility] Comment on above: Performed By: #### C BC #### [facility] [address] [address] [address] Bella Jerome MCH (RBC) [Entitic mass] 32.2 pg Normal 26.7-34.0 [facility] Comment on above: Performed By: #### C BC #### [facility] [address] [place] [address] Dr. Bella Jerome MCHC (RBC) [Mass/Vol] 34.2 g/dL Normal 29.9-35.2 [facility] Comment on above: Performed By: #### C BC #### [facility] [address] [place] [address] Dr. Bella Jerome MCV (RBC) [Entitic vol] 94.2 fL Normal 81.0-99.0 [facility] Comment on above: Performed By: #### C BC #### [facility] [address] [place] [address] Dr. Bella Jerome MONO # 0.9 103/ul Critically high 0.3-0.8 [facility] Comment on above: Performed By: #### C BC #### [facility] [address] [place] [address] Dr. Bella Jerome Monocytes/100 WBC (Bld) 7.1 % Normal 1.7-12.0 [facility] Comment on above: Performed By: #### C BC #### [facility] [address] [place] [address] Dr. Bella Jerome NEUT # 8.9 103/ul Critically high 1.4-6.5 [facility] Comment on above: Performed By: #### C BC #### [facility] [address] [place] [address] Dr. Bella Jerome Neutrophils/100 WBC (Bld) 70.8 % Normal 43.0-75.0 [facility] Comment on above: Performed By: #### C BC #### [facility] [address] [place] [address] Dr. Bella Jerome Platelet mean volume (Bld) [Entitic vol] 11.0 fL Normal 9.5-13.5 [facility] Comment on above: Performed By: #### C BC #### [facility] [address] [place], [place] [address] Dr. Bella Jerome PLT 234 103/ul Normal 150-450 [facility] Comment on above: Performed By: #### C BC #### [facility] [address] [place], [place] [address] Dr. Bella Jerome RBC 3.45 106/ul Critically low 4.20-5.40 [facility] Comment on above: Performed By: #### C BC #### [facility] [address] [place], [place] [address] Dr. Bella Jerome WBC 12.6 103/ul Critically high 4.0-11.0 [facility] Comment on above: Performed By: #### C BC #### [facility] [id number] Bella Jerome [facility]on SARS-CoV-2 (COVID-19) RNA FAVIAN+probe Ql (Unsp spec) Not detected Normal NOT DETECTED [facility] Comment on above: Result Comment: When [...] for this test is supported by the [place] of Health and Human Service's declaration that [...] be used). Performed By: #### C VDTBH ####[facility] [address] [place], [place] [address]Dr. Bella Jerome DRUG SCREEN RAPID (URINE)on 09-05-2022 AMP Negative Normal NEGATIVE [facility] Comment on above: Performed By: #### D RUGRPD ####[facility] [address] [address]Dr. Bella Jerome BAR Negative Normal NEGATIVE [facility] Comment on above: Performed By: #### D RUGRPD ####[facility] [address] [address]Dr. Bella Jerome BUP Negative Normal NEGATIVE [facility] Comment on above: Performed By: #### D RUGRPD ####[facility] [address] [address]Dr. Bella Jerome BZO Negative Normal NEGATIVE [facility] Comment on above: Performed By: #### D RUGRPD ####[facility] [address] [place], [place] [address]Dr. Bella Jerome NGA Negative Normal NEGATIVE [facility] Comment on above: Performed By: #### D RUGRPD ####[facility] [address] [place], [place] [address]Dr. Bella Jerome CUT-OFFS SEE BELOW Normal [facility] Comment on above: Result Comment: [...] 300 ng/mL Performed By: #### D RUGRPD ####[facility] [address] [address]Dr. Bella Jerome DRUG CUT HEADER DRUG CLASS TEST SYSTEM CUT-OFF CONCENTRATIONS ARE FOLLOWS: Normal [facility] Comment on above: Performed By: #### D RUGRPD ####[facility] [address] [id number]. Bella Jerome mAMP Negative Normal NEGATIVE [facility] Comment on above: Performed By: #### D RUGRPD ####[facility] [address] [address]Dr. Bella Jerome MTD Negative Normal NEGATIVE [facility] Comment on above: Performed By: #### D RUGRPD ####[facility] [address] [address]Dr. Bella Jerome OPI Negative Normal NEGATIVE [facility] Comment on above: Performed By: #### D RUGRPD ####[facility] [address] [place], [place] [address]Dr. Bella Jerome OXY Negative Normal NEGATIVE [facility] Comment on above: Performed By: #### D RUGRPD ####[facility] [address] [place], [place] [address]Dr. Bella Jerome PCP Negative Normal NEGATIVE [facility] Comment on above: Performed By: #### D RUGRPD ####[facility] [address] [place], [place] [address]Dr. Bella Jerome PPX Negative Normal NEGATIVE [facility] Comment on above: Performed By: #### D RUGRPD ####[facility] [address] [address]Dr. Bella Jerome TCA Negative Normal NEGATIVE [facility] Comment on above: Performed By: #### D RUGRPD ####[facility] [address] [address]Dr. Bella Jerome THC Negative Normal NEGATIVE [facility] Comment on above: Performed By: #### D RUGRPD ####[facility] [address] [place], [place] [address]Dr. Bella Jerome TYPE AND SCREENon 09-05-2022 TYPE AND SCREEN Negative Normal [facility] Comment on above: Performed By: #### T NS ####[facility] [address] [place], [place] [address]Dr. Bella Justus US PREG BIOPHY W NON STRESSo n [...] by: MANUELITO GREGG Date: 2022-08-31 17:06 Normal [facility] US PREG GROWTHon 08-30-2022 US [...] by: MANUELITO GREGG Date: 2022-08-30 17:59 Normal [facility] US PREG BIOPHY W NON [...] by: MANUELITO GREGG Date: 2022-08-24 17:10 Normal [facility] FREE T4on 08-21-2022 Free T4 [Mass/Vol] 0.90 ng/dL Normal 0.76-1.46 [facility] Comment on above: Performed By: #### C BC #### [facility] [address] [address] [address] Bella Jerome TSHon 08-21-2022 TSH 1.033 uIU/mL Normal 0.358-3.740 [facility] Comment on above: Performed By: #### H H #### [facility] [address] [address] [address] Bella Jerome US PREG BIOPHY W [...] MANUELITO GREGG Date: 2022-08-17 18:33 Normal [facility] GROUP B STREP CULTUREon 07-28 S. agalactiae Ag Ql (Unsp spec) Culture Observations: NEGATIVE FOR GROUP B STREPTOCOCCUS. Normal [facility] Comment on above: Performed By: #### G BSCX ####[facility] [address] [place], [place] [address]FwDr. Bella Jerome US PREG BIOPHY W NON [...] by: MANUELITO GREGG Date: 2022-08-10 16:36 Normal [facility] US PREG GROWTHon 08-10-2022 US [...] by: MANUELITO GREGG Date: 2022-08-10 16:37 Normal [facility] US PREG GROWTHon 07-25-2022 US [...] by: MANUELITO GREGG Date: 2022-07-25 18:18 Normal [facility] FREE T4on 07-24-2022 Free T4 [Mass/Vol] 0.98 ng/dL Normal 0.76-1.46 [facility] Comment on above: Performed By: #### F T4 #### [facility] [address] [place] [address] Dr. Bella Jerome TSHon 07-24-2022 TSH 1.196 uIU/mL Normal 0.358-3.740 [facility] Comment on above: Performed By: #### T SH ####[facility] [address] [address]Dr. Bella Jerome UA (CLEAN/CATCH) MANAGER SYSTEMS/MICRO I F IND.on 07-20-2022 Bilirubin Ql (U) Negative Normal NEGATIVE [facility] Comment on above: Performed By: #### H H #### [facility] [address] [place] [address] Dr. Bella Jerome Clarity (U) CLEAR Normal CLEAR [facility] Comment on above: Performed By: #### H H #### [facility] [address] [address] [address] Bella Jerome Color (U) LT. YELLOW Normal YELLOW [facility] Comment on above: Performed By: #### H H #### [facility] [address] [place] [address] Dr. Bella Jerome Glucose Ql (U) Negative Normal NEGATIVE [facility] Comment on above: Performed By: #### H H #### [facility] [address] [address] [address] Bella Jerome Hemoglobin Ql (U) Negative Normal NEGATIVE [facility] Comment on above: Performed By: #### H H #### [facility] [address] [place] [address] Dr. Bella Jerome Ketones Ql (U) Negative Normal NEGATIVE [facility] Comment on above: Performed By: #### H H #### [facility] [address] [address] [address] Bella Jerome LEUKOCYTES Negative Normal NEGATIVE [facility] Comment on above: Performed By: #### H H #### [facility] [address] [place] [address] Dr. Bella Jerome Nitrite Ql (U) Negative Normal NEGATIVE [facility] Comment on above: Performed By: #### H H #### [facility] [address] [place] [address] Dr. Bella Jerome pH (U) 7.0 [pH] Normal 5-9 [facility] Comment on above: Performed By: #### H H #### [facility] [address] [place] [address] Dr. Bella Jerome SPEC GRAVITY <=1.005 Abnormal 1.005-<=1.025 [facility] Comment on above: Performed By: #### H H #### [facility] [address] [place] [address] Dr. Bella Jerome UA PROTEIN Negative Normal NEGATIVE/ TRACE [facility] Comment on above: Performed By: #### H H #### [facility] [address] [place] [address] Dr. Bella Jerome UR MICRO IND NOT INDICATED Normal [facility] Comment on above: Performed By: #### H H #### [facility] [address] [place] [address] Dr. Bella Jerome Urobilinogen Qn (U) 0.2 {Kimberlee'U}/dL Normal 0.2 - 1. 0 [facility] Comment on above: Performed By: #### H H #### [facility] [address] [address] [address] Bella Jerome PREG GROWTHon 06-27-2022 US [...] by: RAGINI SANTOS Date: 2022-06-27 16:23 Normal [facility] FREE T4on 06-20-2022 Free T4 [Mass/Vol] 0.82 ng/dL Normal 0.76-1.46 [facility] Comment on above: Performed By: #### H H #### [facility] [address] [address] [address] Bella Jerome GLUCOSE - 1HRon 06-20-2022 Glucose [Mass/Vol] 127 mg/dL Critically high 74-106 T [facility] Comment on above: Performed By: #### H H #### [facility] [address] [address] [address] Bella Jerome HEMOGRAM AND PLATELon 2021 Hematocrit (Bld) [Volume fraction] 32.4 % Critically low 36.0-48.0 [facility] Comment on above: Performed By: #### H H #### [facility] [address] [address] [address] Bella Jerome Hemoglobin (Bld) [Mass/Vol] 10.9 g/dL Critically low 12.0-16.0 [facility] Comment on above: Performed By: #### H H #### [facility] [address] [address] [address] Bella Jerome MCH (RBC) [Entitic mass] 32.9 pg Normal 26.7-34.0 [facility] Comment on above: Performed By: #### H H #### [facility] [address] [address] [address] Bella Jerome MCHC (RBC) [Mass/Vol] 33.6 g/dL Normal 29.9-35.2 [facility] Comment on above: Performed By: #### H H #### [facility] [address] [address] [address] Bella Jerome MCV (RBC) [Entitic vol] 97.9 fL Normal 81.0-99.0 [facility] Comment on above: Performed By: #### H H #### [facility] [address] [address] [address] Bella Jerome PLT 241 103/ul Normal 150-450 [facility] Comment on above: Performed By: #### H H #### [facility] [address] [address] [address] Bella Jerome RBC 3.31 106/ul Critically low 4.20-5.40 [facility] Comment on above: Performed By: #### H H #### [facility] [address] [address] [address] Bella Jerome WBC 11.3 103/ul Critically high 4.0-11.0 [facility] Comment on above: Performed By: #### H H #### [facility] [address] [address] [address] Bella Jerome TSHon 06-20-2022 TSH 3.044 uIU/mL Normal 0.358-3.740 [facility] Comment on above: Performed By: #### C BC #### [facility] [address] [place] [address] Dr. Bella Jerome US PREG INCOMPLETE ANATOMYon 05-24-2022 US PREG INCOMPLETE ANATOMY EXAMINATION: US PREG INCOMPLETE ANATOMY HISTORY: screening COMPARISON: Ultrasound anatomy 04/26/2022 FINDINGS: Presentation: Cephalic Heart rate: 154 bpm Anatomy: Cervical, thoracic, and lumbar spine HERNANDO: 09/13/2022 IMPRESSION: 1. Adequate visualization of the cervical, thoracic, and lumbar spine; no appreciable abnormality. Electronically authenticated by: RAGINI SANTOS Date: 2022-05-24 17:33 Normal [facility] US PREG ANATOMY SINGLEon US [...] by: MANUELITO GREGG Date: 2022-04-26 16:54 Normal [facility] CHLAMYDIA/GONOCOCCUS FAVIAN (SW AB/URINE/PAPon 04-19-2022 Chlamydia trachomatis, FAVIAN Negative Normal Negative [facility] Comment on above: Performed By: #### C T/NGNA ####[facility] [address] [address]Dr. Bella Jerome Neisseria gonorrhoeae, FAVIAN Negative Normal Negative [facility] Comment on above: Performed By: #### C T/NGNA ####[facility] [address] [address]Dr. Bella Jerome VAGINITIS/VAGINOSIS DNA PROB Leonid 04-18-2022 Jessica species Negative Normal Negative [facility] Comment on above: Performed By: #### H H #### [facility] [address] [address] [address] Bella Jerome Gardnerella vaginalis Negative Normal Negative [facility] Comment on above: Performed By: #### H H #### [facility] [address] [address] [address] Bella Jerome Trichomonas vaginalis Negative Normal Negative [facility] Comment on above: Performed By: #### H H #### [facility] [address] [address] [address] Bella Jerome FREE T4on 04-05-2022 Free T4 [Mass/Vol] 0.88 ng/dL Normal 0.76-1.46 [facility] Comment on above: Performed By: #### F T4 #### [facility] [address] [address] [address] Bella Jerome TSHon 04-05-2022 TSH 1.786 uIU/mL Normal 0.358-3.740 [facility] Comment on above: Performed By: #### T SH ####[facility] [address] [address]Dr. Bella Jerome TSH RANGE SEE BELOW Normal [facility] Comment on above: Result Comment: <0.3 4 UIU/ml HYPERTHYROID 0.34-5.60 UIU/ml EUTHYROID >5.60 UIU/ml HYPOTHYROID Performed By: #### T SH ####[facility] [address] [place], [place] [address]Dr. Bella Jerome FREE T4on 02-26-2022 Free T4 [Mass/Vol] 1.06 ng/dL Normal 0.76-1.46 [facility] Comment on above: Performed By: #### C BC #### [facility] [address] [place], [place] [address] Dr. Bella Jerome TSHon 02-26-2022 TSH 2.024 uIU/mL Normal 0.470-4.680 [facility] Comment on above: Performed By: #### C BC #### [facility] [address] [address] [address] Bella Jerome TSH RANGE SEE BELOW Normal [facility] Comment on above: Result Comment: <0.3 4 UIU/ml HYPERTHYROID 0.34-5.60 UIU/ml EUTHYROID >5.60 UIU/ml HYPOTHYROID Performed By: #### C BC #### [facility] [address] [place] [address] Dr. Bella Jerome Vital Signs Date Time Vital Sign Value Performing Clinician Facility 09-01-2024 14:03-0500 Body mass index (BMI) [Ratio] 44.25 kg/m2 [employer] Work Phone: [facility] 09-01-2024 14:03-0500 Body weight 113.31 kg Agus Marquita DO Work Phone: [facility] 09-01-2024 14:03-0500 Diastolic blood pressure 78 mm[Hg] Agus Marquita DO Work Phone: [facility] 09-01-2024 14:03-0500 Systolic blood pressure 120 mm[Hg] Agus Marquita DO Work Phone: [facility] 08-18-2024 13:50-0400 Body mass index (BMI) [Ratio] 43.54 kg/m2 Agus Marquita DO Work Phone: [facility] 08-18-2024 13:50-0400 Body weight 111.49 kg Agus Marquita [employer] Work Phone: [facility] 08-18-2024 13:50-0400 Diastolic blood pressure 74 mm[Hg] Agus Marquita DO Work Phone: [facility] 08-18-2024 13:50-0400 Systolic blood pressure 118 mm[Hg] Agus Marquita DO Work Phone: [facility] 08-04-2024 13:30-0400 Body mass index (BMI) [Ratio] 44.37 kg/m2 Marylou Mullen PA Work Phone: [facility] 08-04-2024 13:30-0400 Body weight 113.63 kg Marylou Cem PA Work Phone: [facility] 08-04-2024 13:30-0400 Diastolic blood pressure 78 mm[Hg] Marylou Gunney PA Work Phone: [facility] 08-04-2024 13:30-0400 Systolic blood pressure 128 mm[Hg] Marylou Gunney PA Work Phone: [facility] 02-13-2024 11:24-0400 Body height 160.[address] [facility] 02-13-2024 11:24-0400 Body mass index (BMI) [Ratio] 42.3 kg/m2 [facility] 02-13-2024 11:24-0400 Body weight 108.[address] [facility] 02-13-2024 11:24-0400 Diastolic blood pressure 70 mm[Hg] [facility] 02-13-2024 11:24-0400 Heart rate 69 /min [facility] 02-13-2024 11:24-0400 Respiratory rate 18 /min [facility] 02-13-2024 11:24-0400 SaO2% (BldA) [Mass fraction] 98 % [facility] 02-13-2024 11:24-0400 Systolic blood pressure 118 mm[Hg] [facility] 10-31-2023 15:00-0500 Body height 160.02 cm Sandra Austin Other [employer] Other 10-31-2023 15:00-0500 Body mass index (BMI) [Ratio] 45.41 kg/m2 Sandra Geovanna Other [employer] Other 10-31-2023 15:00-0500 Body temperature 98.5 [degF] Sandra Geovanna Other [employer] Other 10-31-2023 15:00-0500 Body weight 116.3 kg Sandra Geovanna Other [employer] Other 10-31-2023 15:00-0500 Diastolic blood pressure 80 mm[Hg] Sandra Geovanna Other [employer] Other 10-31-2023 15:00-0500 Respiratory rate 18 /min Sandra Geovanna Other [employer] Other 10-31-2023 15:00-0500 SaO2% (BldA) [Mass fraction] 98 % Sandra Pendletonaldo Other [employer] Other 10-31-2023 15:00-0500 Systolic blood pressure 128 mm[Hg] Sandra Geovanna Other [employer] Other 06-24-2023 14:30-0400 Body height 160.02 cm Sandra Geovanna Other [employer] Other 06-24-2023 14:30-0400 Body mass index (BMI) [Ratio] 44.87 kg/m2 Sandra Geovanna Other [employer] Other 06-24-2023 14:30-0400 Body weight 114.9 kg Sandra Austin Other [employer] Other 06-24-2023 14:30-0400 Diastolic blood pressure 60 mm[Hg] Sandra Geovanna Other [employer] Other 06-24-2023 14:30-0400 Respiratory rate 18 /min Sandra Geovanna Other [employer] Other 06-24-2023 14:30-0400 SaO2% (BldA) [Mass fraction] 99 % Sandra Pendletonaldo Other [employer] Other 06-24-2023 14:30-0400 Systolic blood pressure 110 mm[Hg] Sandra Geovanna Other [employer] Other 04-15-2023 09:25-0400 Body height 160.02 cm Ramonita Hornmond Other [employer] Other 04-15-2023 09:25-0400 Body mass index (BMI) [Ratio] 41.8 kg/m2 Ramonita Yari Other [employer] Other 04-15-2023 09:25-0400 Body temperature 98.5 [degF] Ramonita Yari Other [employer] Other 04-15-2023 09:25-0400 Body weight 107.05 kg Ramonita Yari Other [employer] Other 04-15-2023 09:25-0400 Respiratory rate 18 /min Ramonita Yari Other [employer] Other 04-15-2023 09:25-0400 SaO2% (BldA) [Mass fraction] 97 % Ramonita Yari Other [employer] Other 02-21-2023 14:45-0400 Body height 160.02 cm Sandra Geovanna Other [employer] Other 02-21-2023 14:45-0400 Body mass index (BMI) [Ratio] 41.39 kg/m2 Sandra Austin Other [employer] Other 02-21-2023 14:45-0400 Body weight 106.01 kg Sandra Austin Other [employer] Other 02-21-2023 14:45-0400 Diastolic blood pressure 60 mm[Hg] Sandra Austin Other [employer] Other 02-21-2023 14:45-0400 Respiratory rate 18 /min Sandra Austin Other [employer] Other 02-21-2023 14:45-0400 SaO2% (BldA) [Mass fraction] 98 % Sandraluca Austin Other [employer] Other 02-21-2023 14:45-0400 Systolic blood pressure 110 mm[Hg] Sandra Austin Other [employer] Other 12-24-2022 14:30-0500 Body height 160.02 cm Sandra Austin Other [employer] Other 12-24-2022 14:30-0500 Body mass index (BMI) [Ratio] 40.83 kg/m2 Sandra Austin Other [employer] Other 12-24-2022 14:30-0500 Body weight 104.55 kg Sandra Austin Other [employer] Other 12-24-2022 14:30-0500 Diastolic blood pressure 70 mm[Hg] Sandra Austni Other [employer] Other 12-24-2022 14:30-0500 Respiratory rate 18 /min Sandra Austin Other [employer] Other 12-24-2022 14:30-0500 SaO2% (BldA) [Mass fraction] 99 % Sandra Austin Other [employer] Other 12-24-2022 14:30-0500 Systolic blood pressure 118 mm[Hg] Sandra Austin Other [employer] Other 12-21-2021 16:30-0500 Body height 160.02 cm Sandra Austin Other [employer] Other 12-21-2021 16:30-0500 Body mass index (BMI) [Ratio] 38.58 kg/m2 Sandra Austin Other [employer] Other 12-21-2021 16:30-0500 Body temperature 97.3 [degF] Sandra Austin Other [employer] Other 12-21-2021 16:30-0500 Body weight 98.79 kg Sandra Austin Other [employer] Other 12-21-2021 16:30-0500 Diastolic blood pressure 60 mm[Hg] Sandra Austin Other [employer] Other 12-21-2021 16:30-0500 Respiratory rate 18 /min Sandra Austin Other [employer] Other 12-21-2021 16:30-0500 SaO2% (BldA) [Mass fraction] 99 % Sandra Austin Other [employer] Other 12-21-2021 16:30-0500 Systolic blood pressure 118 mm[Hg] Sandra Austin Other [employer] Other Encounters Encounter Date Encounter Type Care Provider Facility Start: 09-14-2024 End: 09-14-2024 ambulatory MARYLOU PRIEST Not Available Start: 09-08-2024 End: 09-08-2024 Bamboo flowsheet Agus Marquita DO Work Phone: [facility] Start: 09-08-2024 End: 09-08-2024 Bamboo flowsheet Agus Marquita DO Work Phone: [facility] Start: 09-08-2024 End: 09-08-2024 ambulatory AGUS MARQUIAT Not Available Start: 09-01-2024 End: 09-01-2024 Bamboo flowsheet Agus [...] Result Encounter Agus Marquita DO Work Phone: [facility] External Department Unsolicited Start: 08-18-2024 End: 08-18-2024 Bamboo flowsheet Agus Marquita DO Work Phone: [facility] Start: 08-18-2024 End: 08-18-2024 Bamboo flowsheet Agus Marquita DO Work Phone: [facility] Start: 08-18-2024 End: 08-18-2024 ambulatory AGUS MARQUITA Not Available Start: 08-18-2024 End: 08-18-2024 flow sheet Agus Marquita DO Work Phone: [facility] Comment on above: 34 weeks gestation o f ; Nausea and vomiting, unspecified vomiting type; Gastroesophageal reflux disease, unspecified whether esophagitis present; Heartburn during in third trimester Start: 08-04-2024 End: 08-04-2024 Bamboo flowsheet Marylou CARBAJAL Work Phone: [facility] Start: 08-04-2024 End: 08-04-2024 Bamboo flowsheet Marylou CARBAJAL Work Phone: [facility] Start: 08-04-2024 End: 08-04-2024 ambulatory MARYLOU PRIEST Not Available Start: 08-04-2024 End: 08-04-2024 flow sheet Marylou CARBAJAL Work Phone: [facility] Comment on above: 32 weeks gestation o f ; Third trimester ; Anxiety, generalized ([facility]) Start: 07-21-2024 End: 07-21-2024 ambulatory AGUS [...] Not Available Start: 02-13-2024 End: 02-13-2024 ambulatory [facility] Work Phone: Start: 02-13-2024 End: 02-13-2024 Patient encounter procedure [facility] [place] Work Phone: Start: 12-16-2023 Non-patient / Non-visit [facility] Work Phone: Start: 12-16-2023 End: 12-16-2023 ambulatory AGUS MARQUITA Not Available Start: 10-31-2023 End: 10-31-2023 ambulatory Sandra Austin Other [employer] Other Start: 10-31-2023 Office outpatient vi sit 25 minutes Sandra Austin [facility] [place] Start: 07-19-2023 End: 07-19-2023 ambulatory Sandra Austin Other [employer] Other Start: 07-19-2023 Telephone encounter Sandra Guevara [facility] [place] Start: 06-24-2023 End: 06-24-2023 ambulatory Sandra Austin Other [employer] Other Start: 06-24-2023 Office outpatient vi sit 25 minutes Sandra Austin [facility] [place] Start: 06-04-2023 End: 06-04-2023 ambulatory Sandra Austin Other [employer] Other Start: 06-04-2023 Telephone encounter Sandra Guevara [facility] Start: 04-15-2023 End: 04-15-2023 ambulatory Ramonita Yari Other [employer] Other Start: 04-15-2023 Office outpatient vi sit 15 minutes Ramonita Greenberg [facility] [place] Start: 04-11-2023 End: 04-11-2023 ambulatory Sandra Austin Other [employer] Other Start: 04-11-2023 Telephone encounter Sandra Guevara [facility] Start: 02-21-2023 Office outpatient vi sit 25 minutes Sandra Austin [facility] Start: 02-21-2023 End: 02-22-2023 ambulatory SANDRA AUSTIN [facility] Other Start: 01-04-2023 End: 01-04-2023 ambulatory Sandra Austin Other [employer] Other Start: 01-04-2023 Telephone encounter Sandra Guevara [facility] [place] Start: 12-30-2022 Encounter for genera l adult medical examination without abnormal findings SANDRA AUSTIN [facility] Start: 12-27-2022 End: 12-27-2022 ambulatory Sandra Austin Other [employer] Other Start: 12-27-2022 Telephone encounter Sandra Guevara [facility] Start: 12-26-2022 End: 12-27-2022 ambulatory SANDRA AUSTIN Facility:[facility] Start: 12-26-2022 End: 12-27-2022 Encounter for general adult medical examination without abnormal findings SANDRA AUSTIN Facility:[facility] Start: 12-24-2022 End: 12-24-2022 ambulatory Sandra Austin Other [employer] Other Start: 12-24-2022 Encounter for genera l adult medical examination without abnormal findings Sandra Austin [facility] Start: 12-24-2022 Periodic preventive med est patient 18-39 yrs Sandra Austin [facility] [place] Start: 12-10-2022 End: 12-10-[address] [...] 12-21-2021 End: 12-21-2021 ambulatory Sandra Geovanna Other [facility] Other Start: 12-21-2021 Office outpatient ne w 45 minutes Sandra Austin [facility] [place] Procedures Date Procedure Procedure Detail Performing Clinician [...] EST Office Visit [facility] [address] [place] [id number] Agus Juárez, DO [address] [place] [address] [facility] Start: 09-08-2024 End: 09-08-2024 Patient encounter procedure 09/08/2024 10:50 AM EST Routine [facility] [address] [place] [id number] Agus Juárez, DO [address] [place] [address] [facility] Start: 09-01-2024 End: 09-01-2025 [...] Routine [facility] [address] [place] [address] Agus Juárez, DO [address] [place] [address] [facility] Start: 08-18-2024 End: 08-18-2024 Professional / ancillary services management 08/18/2024 1:00 PM EDT Ancillary Procedure [facility] [address] [place] [id number] [facility] Patient Education Low back pain in adults [facility] Work Phone: Immunizations Immunization Date Immunization Notes Care Provider Fa cili 09-08-2022 diphtheria, tetanus toxoids and pertussis vaccine Marylou CARBAJAL Work Phone: [facility] 09-12-2021 pneumococcal conjuga te vaccine, 13 valent Marylou CARBAJAL Work Phone: [facility] 08-14-1999 diphtheria, tetanus toxoids and acellular pertussis vaccine, unspecified formulation Marylou CARBAJAL Work Phone: [facility] 08-14-1999 haemophilus influenz ae type b vaccine, HbOC conjugate Marylou CARBAJAL Work Phone: [facility] 08-14-1999 measles, mumps and rubella virus vaccine Marylou CARBAJAL Work Phone: [facility] 08-14-1999 trivalent poliovirus vaccine, live, oral Marylou CARBAJAL Work Phone: [facility] 04-27-1998 diphtheria, tetanus toxoids and acellular pertussis vaccine, unspecified formulation Marylou CARBAJAL Work Phone: [facility] 04-27-1998 haemophilus influenz ae type b conjugate and Hepatitis B vaccine Marylou CARBAJAL Work Phone: [facility] 1997 diphtheria, tetanus toxoids and acellular pertussis vaccine, unspecified formulation Marylou CARBAJAL Work Phone: [facility] 1997 haemophilus influenz ae type b vaccine, HbOC conjugate Marylou CARBAJAL Work Phone: [facility] 1997 poliovirus vaccine, inactivated Marylou CARBAJAL Work Phone: [facility] 1997 diphtheria, tetanus toxoids and acellular pertussis vaccine, unspecified formulation Marylou CARBAJAL Work Phone: [facility] 1997 haemophilus influenz ae type b conjugate and Hepatitis B vaccine Marylou CARBAJAL Work Phone: [facility] 1997 poliovirus vaccine, inactivated Marylou CARBAJAL Work Phone: [facility] 1997 hepatitis B vaccine, pediatric or pediatric/adolescent dosage Marylou CARBAJAL Work Phone: [facility] Payers Date Payer Category Payer Private Health Insurance [employer] [id number] 2023 Unknown [employer] [id number] 2023-Present [address] [place] [address] [id number] 2023 Unknown [id number] [id number] 1997 Unknown [id number] 2.16.840.1.059704.3.579.2. 593 1997 Unknown [id number] 2.16.840.1.710006.3.579.2. 593 1997 Unknown [id number] 2.16.840.1.784150.3.579.2. 593 1997 Unknown [id number] 2.16.840.1.844322.3.579.2. 593 1997 Unknown [id number] 2.16.840.1.681891.3.579.2. 593 1997 Unknown [id number] 2.16.840.1.280939.3.579.2. 593 1997 Unknown [id number] 2.16.840.1.233606.3.579.2. 593 1997 Unknown [id number] 2.16.840.1.973694.3.579.2. 593 1997 Unknown [id number] 2.16.840.1.356381.3.579.2. 593 1997 Unknown [id number] 2.16.840.1.027838.3.579.2. 593 1997 Unknown [id number] 2.16.840.1.908066.3.579.2. 593 1997 Unknown [id number] 2.16.840.1.151392.3.579.2. 593 1997 Unknown [id number] 2.16.840.1.253875.3.579.2. 593 1997 Unknown [id number] 2.16.840.1.671187.3.579.2. 593 1997 Unknown [id number] 2.16.840.1.912289.3.579.2. 593 1997 Unknown [id number] 2.16.840.1.210126.3.579.2. 593 1997 Unknown [id number] 2.16.840.1.735250.3.579.2. 593 1997 Unknown [id number] 2.16.840.1.687243.3.579.2. 593 1997 Unknown [id number] 2.16.840.1.562784.3.579.2. 593 1997 Unknown [id number] 2.16.840.1.327033.3.579.2. 593 1997 Unknown [id number] 2.16.840.1.497218.3.579.2. 593 1997 Unknown [id number] 2.16.840.1.934014.3.579.2. 593 1997 Unknown [id number] 2.16.840.1.629880.3.579.2. 593 1997 Unknown [id number] 2.16.840.1.102194.3.579.2. 1258 1997 Unknown [id number] 2.16.840.1.746369.3.579.2. 1258 1997 Unknown [id number] 2.16.840.1.058869.3.579.2. 1258 1997 Unknown [id number] 2.16.840.1.784030.3.579.2. 1258 1997 Unknown [id number] 2.16.840.1.994715.3.579.2. 1258 1997 Unknown [id number] 2.16.840.1.616369.3.579.2. 1258 1997 Unknown [id number] 2.16.840.1.985153.3.579.2. 1258 1997 Unknown [id number] 2.16.840.1.784617.3.579.2. 1258 1997 Unknown [id number] 2.16.840.1.921968.3.579.2. 1258 1997 Unknown [id number] 2.16.840.1.192474.3.579.2. 1258 1997 Unknown [id number] 2.16.840.1.748911.3.579.2. 1258 1997 Unknown [id number] 2.16.840.1.773642.3.579.2. 1258 1997 Unknown [id number] 2.16.840.1.872586.3.579.2. 9 1957 Medicaid [id number] 2.16.840.1.441086.19 1957 Private Health Insurance [id number] 2.16.840.1.206101.19 Self-pay Self Pay [id number] Unknown [place] [id number] Social History Date Type Detail Facility Start: 08-02-2023 End: 11-25-2023 Sex Assigned At [facility] [employer] Other Start: 1995 Sex Assigned At Female F [facility] Start: 08-02-2023 Tobacco smoking stat us NHIS Never smoked tobacco [facility] Start: 08-02-2023 Tobacco use and exposure Smokeless tobacco non-user [facility] Start: 07-21-2024 End: 09-08-2024 Alcoholic beverage intake Ex-drinker (finding) [facility] Start: 08-02-2023 End: 11-25-2023 History of Social function [facility] Start: 01-03-2024 [facility] Start: 1995 Sex assigned at Not on file [facility] Clinical Notes 12-21-2021 to 09-01-2024 Keena Broussard, PRAFUL - 09/01/2024 1:30 PM Shweta Mathew, TAPE SEWING MACHINE OPERATOR - 08/18/2024 1:30 PM EDTKeena Broussard, [facility] - 08/18/2024 1:30 PM SOLOMON Tapia - [...] 4 mg, Oral, Every 6 hours PRN Qeiutjcy-Wbo-Wy-FA ( 1 + IRON PO) Take by [...] nursing note reviewed. Exam conducted with a manager cardiac cath present. Vitals: Estimated body mass index is [...] Agus Juárez DO documented in this encounter [facility] 08-18-2024 History of Presen t illness [...] before breakfast, Do not crush or chew. Xigvuesj-Nmy-Jl-FA ( 1 + IRON PO) Oral ALLERGIES [...] Date COLONOSCOPY 2019 [facility] OTHER SURGICAL HISTORY 2004 r/o third [...] nursing note reviewed. Exam conducted with a manager cardiac cath present. Vitals: Estimated body mass index is [...] Agus Juárez DO documented in this encounter [facility] 08-04-2024 History of Presen [...] before breakfast, Do not crush or chew. Hlyetibk-Jla-Pb-FA ( 1 + IRON PO) Oral ALLERGIES [...] Date COLONOSCOPY 2019 [facility] OTHER SURGICAL HISTORY 2004 r/o third [...] of: SOLOMON Turner documented in this encounter [facility] 10-31-2023 Evaluation note Encounter [...] E28.2) She will continue to follow with [facility] and continue healthy lifestyle changes that she [...] course of antibiotic. Increase fluids and rest. Iaxx-gms-rnjxiyd antipyretics as needed. Warning signs and symptoms reviewed with patient today. Patient to go immediately to the ER should she experience any of these. Patient to notify office should her symptoms persist and not improve. Patient verbalizes understanding and agrees to treatment plan. [facility] Other 09-22-2023 Evaluation note* Encounter Date Diagnosis Assessment Notes Treatment Notes Treatment Clinical Notes Jun, Vitamin D insufficiency (ICD-10 - E55.9) [facility] Other 08-28-2023 Evaluation note* Encounter Date Diagnosis Assessment Notes Treatment Notes Treatment Clinical Notes May, Prediabetes (ICD-10 - R73.03) Recent lab work reviewed with her from [place]. In office hgba1c shows good control with diet and exercise. Will continue current treatment plan. Patient is advised to work on healthy diet choices and appropriate servings, weight control, regular exercise as directed, reduced fat intake, and salt avoidance. Patient voiced understanding of this and agrees to this plan. May, PCOS (polycystic ovarian syndrome) (ICD-10 - E28.2) She will continue to follow with [facility] and continue healthy lifestyle changes that she [...] ENT today. Specialty notes reviewed as received. [facility] Other 08-08-2023 Evaluation note* Encounter Date Diagnosis Assessment Notes Treatment Notes Treatment Clinical Notes May, Other atopic dermatitis (ICD-10 - L20.89) May, Acute otitis externa of both ears, unspecified type (ICD-10 - H60.503) [facility] Other 06-19-2023 Evaluation note* Encounter Date Diagnosis [...] no improvement in 2 to 3 days [facility] Other 06-15-2023 Evaluation note* Encounter Date Diagnosis Assessment Notes Treatment Notes Treatment Clinical Notes Mar, Anxiety (ICD-10 - F41.9) [facility] Other 04-27-2023 Evaluation note* Encounter Date Diagnosis [...] period. Will plan on rechecking this at [place] appointment. [facility] Other 03-10-2023 Evaluation note* Encounter Date Diagnosis Assessment Notes Treatment Notes Treatment Clinical Notes Dec, Bacterial conjunctivitis (ICD-10 - H10.9) [facility] Other 03-02-2023 Evaluation note* Encounter Date Diagnosis Assessment Notes Treatment Notes Treatment Clinical Notes Dec, Vitamin D insufficiency (ICD-10 - E55.9) Dec, Elevated alkaline phosphatase level (ICD-10 - R74.8) Dec, Other specified hypothyroidism (ICD-10 - E03.8) [facility] Other 02-27-2023 Evaluation note* Encounter Date Diagnosis [...] ordered. Follow routinely with eye doctor, dentist, [facility]. Patient is advised to work on healthy diet choices and appropriate servings, weight control, regular exercise as directed, reduced fat intake, and salt avoidance. Patient voiced understanding of this and agrees to this plan. Nov, PCOS (polycystic ovarian syndrome) (ICD-10 - E28.2) Routine lab work ordered. She will continue to follow with [facility] and continue healthy lifestyle changes that she [...] homicidal ideations. Started on Celexa by her [facility]. Very stable on Celexa 20 mg daily. Our office will take this over. Nov, Severe obesity (BMI >= 40) (ICD-10 - E66.01) Patient is advised to work on healthy diet choices and appropriate servings, weight control, regular exercise as directed, reduced fat intake, and salt avoidance. Patient voiced understanding of this and agrees to this plan. Nov, Other She will uti chelseye Flonase OTC for small effusions to her ears bilaterally. She will notify office should pressure in her ears still persist after starting this. [facility] Other 02-24-2022 Evaluation note* Encounter Date Diagnosis Assessment Notes Treatment Notes Treatment Clinical Notes Nov, Prediabetes (ICD-10 - R73.03) She was recently dx with prediabetes and was started on Metformin 500 mg BID 2 weeks ago by her OB[facility]. She would like to follow with our [...] - E28.2) She is following with her OB-[facility] for her PCOS and is currently on Metformin 500 mg BID and is taking medication to help her get . She will continue to follow with [facility] and continue healthy lifestyle changes that she [...] of fatigue, difficulty losing weight by her OB-[facility]. She would like to start following with [...] of this and agrees to this plan. [facility] Other Evaluation note* Diagnosis Onset Date Resolution Status 8 weeks gestation of acute Low back pain [facility] Work Phone: Evaluation note* Diagnosis [...] THIRD NIPPLE REMOVED Surgical History Colonoscopy-normal 2018 [facility] Other Summary Purpose Family History Relationship Condition [...] Right ear pain (H92. 01) Referral Organization [facility] Family Gonzales Hernandez Referring [...] pital DATE CREATED AUTHOR AUTHOR'S ORGANIZ ATION 09/16/2024 [facility] EPIC Care Teams [...] February 13, 2024 End: February 13, 2024 Beam Dyer Relationship Specialty Start Date End Date Sandra Austin NP [address] [place] [phone] PCP - General 07/19/23 Beam Dyer Relationship Specialty Start Date End Date Sandra Austin NP [address] [place] [place] [phone] PCP - General 07/19/23 Beam Dyer Relationship Specialty Start Date End Date Sandra Austin NP [address] [place] [address] PCP - General 07/19/23 Beam Dyer Relationship Specialty Start Date End Date Sandra Austin NP [address] [place] [address] PCP - General 07/19/23 Beam Dyer Relationship Specialty Start Date End Date Sandra Austin FOUNTAIN MANAGER [address] [place] [address] PCP - General 07/19/23 Beam Dyer Relationship Specialty Start Date End Date Sandra Austin FOUNTAIN MANAGER [address] [place] [phone] PCP - General 07/19/23 Beam Dyer Relationship Specialty Start Date End Date Sandra Austin FOUNTAIN MANAGER [address] [place] [place] [phone] [facility] 07/19/23 Goals (unrecognized section and [...] BE BASED ON THE PRIMARY CLINICAL RECORDS. [facility] [employer] [facility]. provides no warranty or guarantee of the accuracy or completeness of information in this document.
[2024-09-21 05:46] LABS: Hematocrit 34.7 % (36.0-48.0); Hemoglobin 11.7 g/dL (12.0-16.0); Mean Corpuscular HGB Conc 33.7 g/dL (29.9-35.2); Mean Corpuscular Volume 94.8 fL (81.0-99.0); Mean Platelet Volume 11.4 fL (9.5-13.5); Platelet Count 253 10^3/uL (150-450); Red Blood Count 3.66 10^6/uL (4.20-5.40); Red Cell Distribution Width 13.2 % (11.0-15.0); White Blood Count 9.9 10^3/uL (4.0-11.0)
[2024-09-21 06:00] LABS: Amphetamine Screen Urine NEGATIVE (NEGATIVE); Barbiturates Screen Urine NEGATIVE (NEGATIVE); Benzodiazepines Screen Urine NEGATIVE (NEGATIVE); Buprenorphine Screen Urine NEGATIVE (NEGATIVE); Cannabinoid Screen Urine NEGATIVE (NEGATIVE); Cocaine Screen Urine NEGATIVE (NEGATIVE); Methadone Screen Urine NEGATIVE (NEGATIVE); Methamphetamines Screen Urine NEGATIVE (NEGATIVE); Opiate Screen Urine NEGATIVE (NEGATIVE); Oxycodone Screen Urine NEGATIVE (NEGATIVE); Phencyclidine Screen Urine NEGATIVE (NEGATIVE); Tricyclic Antidepressant Urine NEGATIVE (NEGATIVE)
[2024-09-21] MEDS: OXYTOCIN/0.9 % SODIUM CHLORIDE 10 UNITS/500 ML PLAST..BAG 6 UNIT IV (06:00)
[2024-09-21] MEDS: 0.9 % SODIUM CHLORIDE 1,000 ML 125 ML IV (06:03)
[2024-09-21] MEDS: ROPIVACAINE HCL/PF 400 MG/200 ML PREMIX 6 MG EPIDURAL (12:07)
[2024-09-21] MEDS: 0.9 % SODIUM CHLORIDE 1,000 ML 1000 ML IV (12:08)
[2024-09-21] MEDS: OXYTOCIN/0.9 % SODIUM CHLORIDE 20 UNITS/1,000 ML PLAST..BAG 125 UNIT IV (14:10)
--- NOTE | 2024-09-21 14:21 | PM.OBPRCVD ---
Procedure Intrapartal events: None Induction method: per pitocin protocol Delivery augmentation: rupture of membranes and pitocin Delivery monitor: external FHT and external uterine Route of delivery: Episiotomy Description: none L&D Laceration Description: periurethral - 1st degree and perineal - 1st degree Delivery repair: Vicryl Estimated blood loss (mL): 250 Anesthesia type: None Disposition: floor Delivery date: 09/21/24 Gender: male presentation: vertex Placental delivery description: Spontaneous cord description: 3 Vessels
[2024-09-21] MEDS: BENZOCAINE/MENTHOL 85 GRAM SPRAY BOTTLE 1 APPLIC TOPICAL (16:11)
[2024-09-22 00:43] VITALS: BP 136/88; PULSE 75; TEMP 37
[2024-09-22] MEDS: LEVOTHYROXINE SODIUM 100 MCG TABLET 50 MCG PO (06:35)
[2024-09-22 07:07] LABS: Basophils Percent Auto 0.2 % (0.2-2.0); Eosinophils Absolute Auto 0.1 10^3/uL (0.0-0.7); Eosinophils Percent Auto 0.7 % (0.9-7.0); Hematocrit 30.8 % (36.0-48.0); Hemoglobin 10.2 g/dL (12.0-16.0); Immature Granulocytes Abs Auto 0.07 10^3/uL (0.00-0.03); Immature Granulocytes Pct Auto 0.6 % (0.0-0.5); Lymphocytes Absolute Auto 2.2 10^3/uL (1.2-3.8); Lymphocytes Percent Auto 17.7 % (20.5-60.0); Mean Corpuscular HGB Conc 33.1 g/dL (29.9-35.2); Mean Corpuscular Hemoglobin 31.6 pg (26.7-34.0); Mean Corpuscular Volume 95.4 fL (81.0-99.0); Mean Platelet Volume 11.3 fL (9.5-13.5); Monocytes Absolute Auto 0.9 10^3/uL (0.3-0.8); Monocytes Percent Auto 7.1 % (1.7-12.0); Neutrophils Percent Auto 73.7 % (43.0-75.0); Platelet Count 227 10^3/uL (150-450); Red Blood Count 3.23 10^6/uL (4.20-5.40); Red Cell Distribution Width 13.2 % (11.0-15.0); White Blood Count 12.2 10^3/uL (4.0-11.0)
--- NOTE | 2024-09-22 08:08 | PM.OBPN ---
OB - PN: Subj Subjective Patient comments: no complaints and pain well controlled [place] status: doing well Exam Constitutional Vital Signs, click to edit/add: Last Vital Signs Temp 98.6 F 09/22/24 00:43 Pulse 75 09/22/24 00:43 Resp 16 09/21/24 12:28 BP 136/88 09/22/24 00:43 O2 Del Method Room Air 09/22/24 00:45 Documenting provider has reviewed patient's vital signs: yes Common normals: no apparent distress Respiratory Common normals: clear to auscultation bilaterally Cardio Common normals: regular rate and regular rhythm GI Common normals: Normal to inspection, nondistended, normoactive bowel sounds present Extremity Common normals: no clubbing, cyanosis or edema and no calf tenderness Results Labs Labs: Short CBC 09/22/24 Range/Units 06:42 WBC 12.2 H (4.0-11.0) 10^3/uL Hgb 10.2 L (12.0-16.0) g/dL Hct 30.8 L (36.0-48.0) % Plt Count 227 (150-450) 10^3/uL OB - PN: A/P Plan - Vaginal Delivery day: 1 Time Spent with Patient Time: Total time spent is greater than 50% in coordination of care (as documented) at patient's floor/unit and/or counseling patient: Total time spent with greater than 50% in coordination of care (as documented) at patient's floor/unit and/or counseling patient: less than 15 minutes
[2024-09-22 09:21] VITALS: BP 122/75; PULSE 68; TEMP 36.3
[2024-09-22] MEDS: CITALOPRAM HYDROBROMIDE 20 MG TABLET PO (09:28)
[2024-09-22] MEDS: DOCUSATE SODIUM 100 MG CAPSULE PO ×2 (09:28→22:09)
[2024-09-22 17:12] VITALS: BP 118/68; PULSE 74
[2024-09-22 23:16] VITALS: BP 135/83; PULSE 66; TEMP 36.5
[2024-09-23] MEDS: LEVOTHYROXINE SODIUM 100 MCG TABLET 50 MCG PO (06:40)
[2024-09-23 07:54] VITALS: BP 121/71; PULSE 74; TEMP 35.4
--- NOTE | 2024-09-23 10:01 | PM.OBPN ---
OB - PN: Subj Subjective Patient comments: no complaints and pain well controlled [place] status: doing well Exam Constitutional Vital Signs, click to edit/add: Last Vital Signs Temp 95.7 F L 09/23/24 07:54 Pulse 74 09/23/24 07:54 Resp 16 09/22/24 17:00 BP 121/71 09/23/24 07:54 O2 Del Method Room Air 09/22/24 23:15 Documenting provider has reviewed patient's vital signs: yes Common normals: no apparent distress Respiratory Common normals: normal respiratory effort and clear to auscultation bilaterally Cardio Common normals: regular rate and regular rhythm GI Common normals: Normal to inspection, nondistended, normoactive bowel sounds present Extremity Common normals: no clubbing, cyanosis or edema and no calf tenderness OB - PN: A/P Plan - Vaginal Delivery day: 2 Plan: routine care, discharge home and follow up 6 weeks Time Spent with Patient Time: Total time spent is greater than 50% in coordination of care (as documented) at patient's floor/unit and/or counseling patient: Total time spent with greater than 50% in coordination of care (as documented) at patient's floor/unit and/or counseling patient: less than 15 minutes
[2024-09-23] MEDS: CITALOPRAM HYDROBROMIDE 20 MG TABLET PO (11:38)
[2024-09-23] MEDS: DOCUSATE SODIUM 100 MG CAPSULE PO (11:39)
== END 2024-09-23 12:05 | disposition home or self-care (01) | DRG 807 ==
PROVIDERS: Admitting Provider Obstetrics & Gynecology; Visit Provider Obstetrics & Gynecology
DX: O71.82 Other specified trauma to perineum and vulva (principal); Z37.0 Single live birth; O70.0 First degree perineal laceration during delivery; Z3A.39 39 weeks gestation of pregnancy
CPT/HCPCS: 36415; 59050; 59410; 80307; 85025; 85027; 86850; 86900; 86901; J2795

== ENCOUNTER 2024-12-17 20:20 | Outpatient (REF) | payer OTHER, SELFPAY ==
--- OUTSIDE RECORDS SUMMARY | 2024-12-17 20:24 | XMS_ITS | CCD ---
Author Organization [facility] Care Team Providers Care Director Of Architecture Name Role Phone [facility] Unavailable KAP, SANDRA Primary Care Unavailable MARQUITA [...] Unavailable MARQUITA ., DR GOLDSMITH Attending Unavailable MAQRUITA ., DR GOLDSMITH Consulting Unavailable MARQUITA ., [...] LYK ., DR HU Admitting Unavailabl e KARGAGEK ., DR HU Attending Unavailabl e KARASIK ., DR HU Consulting Unavailabl e VERBENA, DR MANUELITO Foley Consulting Unavailable MARQUITA ., DR GOLDSMITH Consulting Unavailable SANDRA AUSTIN Primary Care Unavailable MARQUITA ., DR GOLDSMITH Attending Unavailable MARYSOL, DR MANUELITO Foley Consulting Unavailable MARQUITA ., DR GOLDSMITH Admitting Unavailable MARQUITA ., DR GOLDSMITH Consulting Unavailable Ramonita Greenberg Unavailable Geovanna WOOD REPATCHER, Sandra Hall Primary Care Provider [phone] MARQUITA, EDGAR Attending Unavailable MARQUITA, EDGAR Attending Unavailable MARQUITA, EDGAR Attending Unavailable ANJEL, MARYLOU Attending Unavailable MARQUITA, EDGAR Attending Unavailable MARQUITA, EDGAR Attending Unavailable MARQUITA, EDGAR Attending Unavailable ANJEL, MARYLOU Attending Unavailable MARQUITA, EDGAR Attending Unavailable MARQUITA, EDGAR Attending Unavailable MARQUITA, EDGAR Attending Unavailable ANJEL, MARYLOU Attending Unavailable ANJEL, MARYLOU Attending Unavailable Medications [...] May, Active citalopram 20 mg oral tablet (20 sources) Serotonin Reuptake Inhibitor Start: 11-05-2024 End: 11-05-2025 take 2 tablets by mouth once daily citalopram (CeleXA) 20 MG tablet Indications: Anxiety, generalized (CMS/HCC) Take 2 tablets (40 mg) by mouth Daily 30 tablet 11 11/05/2024 11/05/2025 Active Start: 08-04-2024 End: 08-04-2025 take 1 tablet by mouth once daily citalopram (CeleXA) 20 MG tablet Indications: Anxiety, generalized (CMS/HCC) Take 1 tablet (20 mg) by mouth Daily 30 tablet 2 11/02/2024 01/31/2025 Active take 1 tablet by tamica th [...] Active ondansetron 4 mg disintegrating oral tablet (13 sources) Serotonin-3 Receptor Antagonist Start: 08-25-20 End: [...] hours February 13, 2024 12:00am polymyxin b 45053 unt/ml / trimethoprim 1 mg/ml ophthalmic solution (3 sources) Dihydrofolate Reductase Inhibitor Antibacterial, Polymyxin-class Antibacterial Start: 01-04-2023 Polymyxin B-Trimethoprim 53122-5.1 UNIT/ML 1 drop into affected eye Ophthalmic every 3 hours up to six times daily for 7 days Dec, Active (10 sources) Active Dwaviccr-Rvi-Ou-FA ( 1 + IRON PO) (20 sources) Bdjetamo-Ask-Uu-FA ( 1 + IRON PO) Take by [...] acid 7540 MG / polyethylene glycol 3350 99327 MG / potassium chloride 1200 MG / sodium ascorbate 86150 MG / sodium chloride 3200 MG Powder for Oral Solution) / 1 (polyethylene glycol 3350 [id number] MG / potassium chloride 1000 MG / sodium chloride 2000 MG / sodium sulfate 9000 MG Powder for Oral Solution) } Pack [Plenvu] (8 sources) Osmotic Laxative, Vitamin C Start: 10-07-2019 Plenvu 140 GM DOSE 1 AT 4:00 PM, DOSE 2 POUCH A &B AT 11:00 PM Orally TWICE A DAY for 1 days PLEASE CHECK ALLERGIES Sep, Not-Taking aspirin 81 mg delayed release oral tablet (20 sources) Platelet Aggregation Inhibitor, Nonsteroidal Anti-inflammatory Drug End: 11-05-2024 take 1 tablet by mouth once daily aspirin 81 MG EC tablet Take 81 mg by mouth Daily 11/05/2024 Discontinued (Therapy completed) cefuroxime 500 mg oral tablet (1 source) [...] 2024 11:15am famotidine 20 mg oral tablet (7 sources) Histamine-2 Receptor Antagonist Start: 08-25-2024 End: [...] 23, 2019 1:00am February 13, 2024 11:15am magnesium oxide 400 mg oral tablet (16 sources) End: 11-05-2024 take 1 tablet by mouth at bedtime magnesium oxide (Mag-Ox) 400 mg tablet Take 400 mg by mouth at bedtime 11/05/2024 Discontinued (Therapy completed) omeprazole 20 mg delayed release oral capsule (19 sources) Proton Pump Inhibitor Start: 08-18-2024 End: [...] not crush or chew.. 30 capsule 03/02/2024 08/18/2024 Discontinued pantoprazole 20 mg delayed release oral tablet (10 sources) Proton Pump Inhibitor Start: 09-02-2024 End: 09-02-2025 take 1 tablet by mouth before mealtime pantoprazole (Protonix) 20 MG EC tablet Indications: Heartburn during in third trimester Take 1 tablet (20 mg) by mouth in the morning. Take before meals. Do not crush, chew, or split.. 30 tablet 11 09/02/2024 11/05/2024 Discontinued (Therapy completed) Problems Active Problems Problem Classification Problem Date Documented Da te Episodic/Chronic Allergic reactions (5 sources) Atopic dermatitis; Translations: [Other atopic dermatitis] Chronic Anxiety disorders (20 sources) Anxiety; Translations: [Anxiety disorder, unspecified] Onset: 12-21-2021 Resolved: 12-21-2021 Chronic Chronic obstructive pulmonary disease and bronchiectasis (1 source) Bronchitis, not specified as acute or chronic Episodic Esophageal disorders (19 sources) Gastro-esophageal reflux disease without esophagitis; Translations: [Gastroesophageal reflux disease] Onset: 09-17-2022 08-18-2024 Chronic Hypertension complicating ; childbirth and the puerperium (8 sources) Unspecified maternal hypertension, third trimester; Translations: [Unspecified pre-existing hypertension complicating , third trimester] Onset: 08-17-2022 Chronic Inflammation; infection of eye (except that caused by tuberculosis or sexually transmitteddisease) (1 source) Unspecified conjunctivitis Episodic Nausea and vomiting (18 sources) Nausea and vomiting; Translations: [Nausea with [...] calories Chronic Other and delivery including normal (20 sources) Encounter for care and examination of lactating mother; Translations: [Encounter for routine follow-up] Onset: 09-10-2022 Episodic Other upper respiratory infections (2 sources) [...] of ] 08-04-2024 Episodic Residual codes; unclassified (2 sources) Gestation period, 36 weeks; Translations: [36 weeks gestation of ] 09-01-2024 Episodic Residual codes; unclassified (2 sources) Gestation period, 38 weeks; Translations: [38 weeks gestation of ] 09-14-2024 Episodic Residual codes; unclassified (2 sources) Gestation period, 37 weeks; Translations: [37 weeks gestation of ] 09-08-2024 Episodic Spondylosis; intervertebral disc disorders; other back problems (2 sources) Low back pain; Translations: [Low back pain] 02-13-2024 Episodic Thyroid disorders (20 sources) Hypothyroidism; Translations: [Other specified hypothyroidism] Onset: 12-21-2021 Resolved: 12-21-2021 Chronic Unclassified (1 source) CONTACT W/AND (SUSP) EXPOS COVID-19; Translations: [CONTACT W/AND (SUSP) EXPOS COVID-19] Onset: 09-17-2022 Past or Other Problems Problem Classification Problem Date Documented Date Episodic/Chronic Abdominal pain (20 sources) Left lower quadrant pain; Translations: [Abdominal [...] Episodic Other ear and sense organ disorders (20 sources) Otalgia, right ear; Translations: [Otalgia, unspecified] Onset: 07-30-2023 Episodic Other female genital disorders (1 source) Other specified noninflammatory disorders of vagina; Translations: [OTH SPEC NONINFLAMMATORY D/O VAGINA] Onset: 04-19-2022 Episodic Other screening for suspected conditions (not mental disorders or infectious disease) (20 sources) Encounter for screening for malignant neoplasm of cervix; Translations: [Encounter for screening for Streptococcus B] Onset: 04-26-2022 Episodic Residual codes; unclassified (1 source) 39 [...] WEEKS GESTATION OF ] Onset: 06-28-2022 Episodic Residual codes; unclassified (18 sources) Gestation period, 34 weeks; Translations: [34 weeks gestation of ] Onset: 08-18-2024 Resolved: 09-21-2024 08-18-2024 Episodic Residual codes; unclassified (2 sources) Gestation period, 28 weeks; Translations: [28 weeks gestation of ] 07-07-2024 Episodic Thyroid disorders (5 sources) Disorder of thyroid, unspecified; Translations: [DISORDER OF THYROID UNSPECIFIED] Onset: 04-05-2022 Episodic Results Test Name Value Interpretation Reference Range Facility ALL CBC WITH AUTO DIFFon BASOPHILS ABSOLUTE AUTO 0 [facility] Basophils/100 WBC (Bld) 0.2 % 0.2 - 2.0 % [facility] Eosinophils/100 WBC (Bld) 0.7 % Low 0.9 - 7.0 % [facility] Erythrocyte distribution width (RBC) [Ratio] 13.2 % 11.0 - 15.0 % [facility] Hematocrit (Bld) [Volume fraction] 30.8 % Low 36.0 - 48.0 % [facility] Hem[facility] (Bld) [Mass/Vol] 10.2 g/dL Low 12.0 - 16.0 g/dL [facility] IMMATURE GRANULOCYTES ABS AUTO 0.07 High [facility] Immature granulocytes/100 WBC (Bld) 0.6 % High 0.0 - 0.5 % [facility] Interpretation and review of laboratory results Abnormal [facility] LYMP[facility]OC[facility]TES [facility]OL[facility] Lymphocytes/100 WBC (Bld) 17.7 % Low 20.5 - 60.0 % [facility] MCH (RBC) [Entitic mass] 31.6 pg 26.7 - 34.0 pg [facility] MCHC (RBC) [Mass/Vol] 33.1 g/dL 29.9 - 35.2 g/dL [facility] MCV (RBC) [Entitic vol] 95.4 fL 81.0 - 99.0 fL [facility] MONOCYTES ABSOLUTE AUTO 0.9 High [facility] Monocytes/100 WBC (Bld) 7.1 % 1.7 - 12.0 % [facility] NEUTROPHILS ABSOLUTE AUTO 9 High [facility] Neutrophils/100 WBC (Bld) 73.7 % 43.0 - 75.0 % [facility] Platelet mean volume (Bld) [Entitic vol] 11.3 fL 9.5 - 13.5 fL [facility] are TB EO # 0.1 [facility] TB PLT 227 [facility] TB RBC 3.23 Low [facility] Healthcar e [facility] WBC 12.2 High [facility] e [facility] Healthcar e HMHP CBC WITH PLATELET NO DI FFERENTIALon 09-21-2024 Erythrocyte distribution width (RBC) [Ratio] 13.2 % 11.0 - 15.0 % [facility] Hematocrit (Bld) [Volume fraction] 34.7 % Low 36.0 - 48.0 % [facility] e Hemoglobin (Bld) [Mass/Vol] 11.7 g/dL Low 12.0 - 16.0 g/dL [facility] Interpretation and review of laboratory results Abnormal [facility] MCH (RBC) [Entitic mass] 32 pg 26.7 - 34.0 pg [facility] MCHC (RBC) [Mass/Vol] 33.7 g/dL 29.9 - 35.2 g/dL [facility] MCV (RBC) [Entitic vol] 94.8 fL 81.0 - 99.0 fL [facility] Platelet mean volume (Bld) [Entitic vol] 11.4 fL 9.5 - 13.5 fL [facility] Healthc are TB PLT 253 [facility] TB RBC 3.66 Low [facility] TB WBC 9.9 [facility] Urinalysis macro (dipstick) panel (U)on 09-14-2024 Bilirubin, UA Negative Negative - 4(70) +++ mg/dL [facility] Blood, UA Negative Negative - 50 Jose Manuel/mcL [facility] Healthcare Clarity, UA Clear [facility] Color, UA Yellow [facility] Glucose, UA Negative Negative - 1999(110) ++++ mg/dL [facility] Interpretation and review of laboratory results Normal [facility] Ketones, UA Negative Negative - 160(16) ++++ mg/dL [facility] Leukocytes, UA Negative Negative - 500+++ Alexys/mcL [facility] Healthcare Nitrite, UA Negative Negative - Positive [facility] pH, UA 5.5 5 - 9 [facility] Healthcar e Protein, UA Negative Negative - 1999(20) ++++ mg/dL [facility] Spec Grav, UA 1.01 1 - 1.03 [facility] Urobilinogen, UA 0.2 0.2 - 12 mg/dL [facility] Urinalysis macro (dipstick) panel (U)on 09-08-2024 Bilirubin, UA Negative Negative - 4(70) +++ mg/dL [facility] Blood, UA Negative Negative - 50 Jose Manuel/mcL [facility] Healthcare Clarity, UA Clear [facility] Color, UA Yellow [facility] Healthcar e Glucose, UA Negative Negative - 1999(110) ++++ mg/dL [facility] Interpretation and review of laboratory results Abnormal [facility] Ketones, UA Negative Negative - 160(16) ++++ mg/dL [facility] Leukocytes, UA Trace Negative - 500+++ Alexys/mcL [facility] Healthcare Nitrite, UA Negative Negative - Positive [facility] pH, UA 5.5 5 - 9 [facility] Protein, UA Negative Negative - 1999(20) ++++ mg/dL [facility] Spec Grav, UA 1.005 1 - 1.03 [facility] Urobilinogen, UA 0.2 0.2 - 12 mg/dL [facility] Urinalysis macro (dipstick) panel (U)on 09-01-2024 Bilirubin, UA Negative Negative - 4(70) +++ mg/dL [facility] Blood, UA Negative Negative - 50 Jose Manuel/mcL [facility] Healthcare Clarity, UA Clear [facility] Healthca re Color, UA Yellow [facility] Healthcar e Glucose, UA Negative Negative - 1999(110) ++++ mg/dL [facility] Interpretation and review of laboratory results Abnormal [facility] Ketones, UA Negative Negative - 160(16) ++++ mg/dL [facility] Healthcare Leukocytes, UA Trace Negative - 500+++ Alexys/mcL [facility] Healthcare Nitrite, UA Negative Negative - Positive [facility] pH, UA 7 5 - 9 [facility] Healthcar e Protein, UA Negative Negative - 1999(20) ++++ mg/dL [facility] Spec Grav, UA 1.015 1 - 1.03 [facility] Urobilinogen, UA 0.2 0.2 - 12 mg/dL [facility] ALL THYROID STIM HORMONEon 1 10-29-2023 TSH Qn 0.716 m[IU]/L [facility] Healthcar e Urinalysis macro (dipstick) panel (U)on 08-18-2024 Bilirubin, UA Negative Negative - 4(70) +++ mg/dL [facility] Blood, UA Negative Negative - 50 Jose Manuel/mcL [facility] Healthcare Clarity, UA Clear [facility] Healthca re Color, UA Yellow [facility] Healthcar e Glucose, UA Negative Negative - 1999(110) ++++ mg/dL [facility] Interpretation and review of laboratory results Normal [facility] Ketones, UA Negative Negative - 160(16) ++++ mg/dL [facility] Leukocytes, UA Negative Negative - 500+++ Alexys/mcL [facility] Nitrite, UA Negative Negative - Positive [facility] pH, UA 6.5 5 - 9 [facility] Healthcar e Protein, UA Negative Negative - 1999(20) ++++ mg/dL [facility] Spec Grav, UA 1.01 1 - 1.03 [facility] Urobilinogen, UA 0.2 0.2 - 12 mg/dL [facility] Urinalysis macro (dipstick) panel (U)on 08-04-2024 Bilirubin, UA Negative Negative - 4(70) +++ mg/dL [facility] Blood, UA Negative Negative - 50 Jose Manuel/mcL [facility] Healthcare Clarity, UA Clear [facility] Color, UA Yellow [facility] Glucose, UA Negative Negative - 1999(110) ++++ mg/dL [facility] Interpretation and review of laboratory results Abnormal [facility] Healthcare Ketones, UA Negative Negative - 160(16) ++++ mg/dL [facility] Healthcare Leukocytes, UA Trace Negative - 500+++ Alexys/mcL [facility] Healthcare Nitrite, UA Negative Negative - Positive [facility] pH, UA 7.0 5 - 9 [facility] Protein, UA Negative Negative - 1999(20) ++++ mg/dL [facility] Healthcare Spec Grav, UA 1.015 1 - 1.03 [facility] Urobilinogen, UA 0.2 0.2 - 12 mg/dL [facility] Urinalysis macro (dipstick) panel (U)on 07-21-2024 Bilirubin, UA Negative Negative - 4(70) +++ mg/dL [facility] Blood, UA Negative Negative - 50 Jose Manuel/mcL [facility] Healthcare Clarity, UA Clear [facility] Healthca re Color, UA Yellow [facility] Healthcar e Glucose, UA Negative Negative - 1999(110) ++++ mg/dL [facility] Interpretation and review of laboratory results Normal [facility] Ketones, UA Negative Negative - 160(16) ++++ mg/dL [facility] Leukocytes, UA Negative Negative - 500+++ Alexys/mcL [facility] Healthcare Nitrite, UA Negative Negative - Positive [facility] pH, UA 6.5 5 - 9 [facility] Healthcar e Protein, UA Negative Negative - 1999(20) ++++ mg/dL [facility] Healthcare Spec Grav, UA 1.005 1 - 1.03 [facility] Health care Urobilinogen, UA 0.2 0.2 - 12 mg/dL [facility] Urinalysis macro (dipstick) panel (U)on 07-07-2024 Bilirubin, UA Negative Negative - 4(70) +++ mg/dL [facility] Blood, UA Negative Negative - 50 Jose Manuel/mcL [facility] Healthcare Clarity, UA Clear [facility] Color, UA Yellow [facility] Glucose, UA Negative Negative - 1999(110) ++++ mg/dL [facility] Interpretation and review of laboratory results Normal [facility] Ketones, UA Negative Negative - 160(16) ++++ mg/dL [facility] Leukocytes, UA Negative Negative - 500+++ Alexys/mcL [facility] Nitrite, UA Negative Negative - Positive [facility] pH, UA 6.5 5 - 9 [facility] Healthcar e Protein, UA Negative Negative - 2000(20) ++++ mg/dL [facility] Spec Grav, UA 1.015 1 - 1.03 [facility] Urobilinogen, UA 0.2 0.2 - 12 mg/dL [facility] Healthcar e ALL CBC WITH AUTO DIFFon BASOPHILS ABSOLUTE AUTO 0.0 [facility] Basophils/100 WBC (Bld) 0.1 % Low 0.2 - 2.0 % [facility] Eosinophils/100 WBC (Bld) 0.6 % Low 0.9 - 7.0 % [facility] Erythrocyte distribution width (RBC) [Ratio] 13.2 % 11.0 - 15.0 % [facility] Hematocrit (Bld) [Volume fraction] 33.1 % Low 36.0 - 48.0 % [facility] Hemoglobin (Bld) [Mass/Vol] 11.2 g/dL Low 12.0 - 16.0 g/dL [facility] IMMATURE GRANULOCYTES ABS AUTO 0.06 High [facility] Immature granulocytes/100 WBC (Bld) 0.6 % High 0.0 - 0.5 % [facility] Interpretation and review of laboratory results Abnormal [facility] LYMPHOCYTES ABSOLUTE AUTO 2.0 [facility] Lymphocytes/100 WBC (Bld) 20.6 % 20.5 - 60.0 % [facility] MCH (RBC) [Entitic mass] 32.5 pg 26.7 - 34.0 pg [facility] MCHC (RBC) [Mass/Vol] 33.8 g/dL 29.9 - 35.2 g/dL [facility] MCV (RBC) [Entitic vol] 95.9 fL 81.0 - 99.0 fL [facility] MONOCYTES ABSOLUTE AUTO 0.4 [facility] Monocytes/100 WBC (Bld) 4.1 % 1.7 - 12.0 % [facility] NEUTROPHILS ABSOLUTE AUTO 7.0 High [facility] Neutrophils/100 WBC (Bld) 74.0 % 43.0 - 75.0 % [facility] Platelet mean volume (Bld) [Entitic vol] 11.5 fL 9.5 - 13.5 fL [facility] Health are TBH EO # 0.1 [facility] TBH PLT 254 [facility] RBC 3.45 Low [facility] WBC 9.5 [facility] Human papilloma virus 16+18+ 31+33+35+39+45+51+52+56+58+59+66+68 DNA [Presence] in Anders 12-16-2023 HPV 16+18+31+33+35+39+45 +51+52+56+58+59+66+6 8 DNA Probe+sig amp Ql (Cvx) Note . [facility] Comment on above: TESTS RESULT FLAG UN ITS REF RANGE LAB DI AGNOSIS: 02 NEGATIVE FOR INTRAEPITHELIAL LESION OR MALIGNANCY.Specimen adequacy: 02 Satisfactory for evaluation. Endocervical and/or squamous metaplastic cells (endocervical component) are present.Performed by: 02 Raeann Duran, Test Inspection Engineer ([facility]). 02Note: Note 02 The Pap smear is a screening test designed to aid in the detection of premalignant and malignant conditions of the uterine cervix. It is not a diagnostic procedure and should not be used as the sole means of detecting cervical cancer. Both false-positive and false-negative reports do occur.Test Methodology: Note 02 The [employer] Cafeteria Attendant was unable to read this specimen. Therefore a manual review was performed. ----- FLAG LEGEND: L-Low Normal,H-High Normal,LL-Alert Low,HH-Alert High <-Panic Low,>-Panic High,A-Abnormal,AA-Critical Abnormal ---Performed at:02 [facility] [address] [place] [address] Heavenly Serrano MD, . 02 The HPV DNA reflex criteria were not met with this specimen result therefore, no HPV testing was performed.The HPV DNA reflex criteria were not met with this specimenresult therefore, no HPV testing was performed.Performed at: =G - [facility] [address] [id number] Director: Heavenly Serrano MD, Phone: [phone] at: - [facility] [id number] Director: Heavenly Serrano MD, Phone: [phone] No Panel Informationon 12-16 Reference Lab Test Patient Age Note . [facility] Comment on above: TESTS RESULT FLAG UN ITS REF RANGE LAB Clinician Provided Cytology Information Source.............Cervix No. of containers..01 ThinPrep VialAge Zhen PUENTES Leslye... FLAG LEGEND: L-Low Normal,H-High Normal,LL-Alert Low,HH-Alert High <-Panic Low,>-Panic High,A-Abnormal,AA-Critical Abnormal ---Performed at:01 =[facility] [address] [place] [address] Heavenly Serrano MD, A1C HEMOGLOBINon 10-31-2023 HbA1c (Bld) [Mass fraction] 5.8 % [facility] Other HbA1c (Bld) [Mass fraction]o n 10-31-2023 A1C HEMOGLOBIN [employer] Other A1C HEMOGLOBINon 06-24-2023 HbA1c (Bld) [Mass fraction] 5.2 % [facility] Other HbA1c (Bld) [Mass fraction]o n 06-24-2023 A1C HEMOGLOBIN [employer] Other Quick Strepon 04-15-2023 S. pyogenes Org specific cx Ql (Throat) Positive [facility] Other Quick Strep [facility] Other FREE T4on 02-21-2023 Free T4 [Mass/Vol] 0.89 ng/dL Normal 0.76-1.46 [facility] Comment on above: Performed By: #### H H #### [facility] [address] [place] [address] Dr. Bella Jerome PROF 14(COMP METB)on 023 Albumin [Mass/Vol] 3.7 g/dL Normal 3.4-5.0 [facility] Comment on above: Performed By: #### H H #### [facility] [address] [address] [address] Bella Jerome Albumin/Globulin [Mass ratio] 0.9 {ratio} Normal [facility] Comment on above: Performed By: #### H H #### [facility] [address] [address] [address] Bella Jerome ALP [Catalytic activity/Vol] 132 U/L Critically high 46-116 [facility] Comment on above: Performed By: #### H H #### [facility] [address] [place] [address] Dr. Bella Jerome ALT [Catalytic activity/Vol] 32 U/L Normal 14-59 [facility] Comment on above: Performed By: #### H H #### [facility] [address] [place] [address] Dr. Bella Jerome Anion gap [Moles/Vol] 12.8 mmol/L Normal [facility] Comment on above: Performed By: #### H H #### [facility] [address] [address] [address] Bella Jerome AST [Catalytic activity/Vol] 23 U/L Normal 15-37 [facility] Comment on above: Performed By: #### H H #### [facility] [address] [place] [address] Dr. Bella Jerome Bilirubin [Mass/Vol] 0.6 mg/dL Normal 0.2-1.0 [facility] Comment on above: Performed By: #### H H #### [facility] [address] [place] [address] Dr. Bella Jerome Calcium [Mass/Vol] 9.0 mg/dL Normal 8.5-10.1 [facility] Comment on above: Performed By: #### H H #### [facility] [address] [place] [address] Dr. Bella Jerome Chloride [Moles/Vol] 102 mmol/L Normal 98-107 [facility] Comment on above: Performed By: #### H H #### [facility] [address] [place] [address] Dr. Bella Jerome CO2 [Moles/Vol] 28.2 mmol/L Normal 21.0-32.0 [facility] Comment on above: Performed By: #### H H #### [facility] [address] [place] [address] Dr. Bella Jerome Creatinine [Mass/Vol] 0.67 mg/dL Normal 0.55-1.02 [facility] Comment on above: Performed By: #### H H #### [facility] [address] [place] [address] Dr. Bella Jerome EGFR-AF CITIZEN [place] >60 Normal >=60 [facility] Comment on above: Performed By: #### H H #### [facility] [address] [address] [address] Bella Jerome EGFR-NON AF CITIZEN OF [place] >60 Normal >=60 [facility] Comment on above: Performed By: #### H H #### [facility] [address] [address] [address] Bella Jerome Globulin (S) [Mass/Vol] 4.2 g/dL Normal [facility] Comment on above: Performed By: #### H H #### [facility] [address] [address] [address] Bella Jerome Glucose [Mass/Vol] 88 mg/dL Normal 74-106 [facility] Comment on above: Performed By: #### H H #### [facility] [address] [address] [address] Bella Jerome Potassium [Moles/Vol] 4.0 mmol/L Normal 3.5-5.1 [facility] Comment on above: Performed By: #### H H #### [facility] [address] [address] [address] Bella Jerome Protein [Mass/Vol] 7.9 g/dL Normal 6.4-8.2 [facility] Comment on above: Performed By: #### H H #### [facility] [address] [address] [address] Bella Jerome Sodium [Moles/Vol] 139 mmol/L Normal 136-145 [facility] Comment on above: Performed By: #### H H #### [facility] [address] [address] [address] Bella Jerome Urea nitrogen [Mass/Vol] 12.0 mg/dL Normal 7.0-18.0 [facility] Comment on above: Performed By: #### H H #### [facility] [address] [address] [address] Bella Jerome Urea nitrogen/Creatinine [Mass ratio] 17.9 mg/mg Normal [facility] Comment on above: Performed By: #### H H #### [facility] [address] [place] [address] Dr. Bella Jerome TSHon 02-21-2023 TSH 2.463 uIU/mL Normal 0.358-3.740 [facility] Comment on above: Performed By: #### H H #### [facility] [address] [place] [address] Dr. Bella Jerome VITAMIN D 25 OHon 02-21-2023 VIT D 25-OH 23.1 ng/mL Normal [facility] Comment on above: Performed By: #### H H #### [facility] [address] [place] [address] Dr. Bella Jerome VIT D RANGES SEE BELOW Normal [facility] Comment on above: Result Comment: <20 ng/mL Vit D deficient 20 - <30 ng/mL Vit D insufficient 30 - 100 ng/mL Vit D sufficient >100 ng/mL Potential Toxicity Performed By: #### H H #### [facility] [address] [place] [address] Dr. Bella Jerome CBC AUTO DIFFon 12-26-2022 BASO # 0.0 103/ul Normal 0.0-0.1 [facility] Comment on above: Performed By: #### C BC #### [facility] [address] [place] [address] Dr. Bella Jerome Basophils/100 WBC (Bld) 0.3 % Normal 0.2-2.0 [facility] Comment on above: Performed By: #### C BC #### [facility] [address] [place] [address] Dr. Bella Jerome EO # 0.1 103/ul Normal 0.0-0.7 [facility] Comment on above: Performed By: #### C BC #### [facility] [address] [place] [address] Dr. Bella Jerome Eosinophils/100 WBC (Bld) 1.6 % Normal 0.9-7.0 [facility] Comment on above: Performed By: #### C BC #### [facility] [address] [place] [address] Dr. Bella Jerome Erythrocyte distribution width (RBC) [Ratio] 12.7 % Normal 11.0-15.0 [facility] Comment on above: Performed By: #### C BC #### [facility] [address] [place] [address] Dr. Bella Jerome Hematocrit (Bld) [Volume fraction] 37.2 % Normal 36.0-48.0 [facility] Comment on above: Performed By: #### C BC #### [facility] [address] [place] [address] Dr. Bella Jerome Hemoglobin (Bld) [Mass/Vol] 12.5 g/dL Normal 12.0-16.0 [facility] Comment on above: Performed By: #### C BC #### [facility] [address] [place] [address] Dr. Bella Jerome IG # 0.02 10e3/ul Normal 0.00-0.03 [facility] Comment on above: Performed By: #### C BC #### [facility] [address] [place] [address] Dr. Bella Jerome IG % 0.3 % Normal 0.0-0.5 [facility] Comment on above: Performed By: #### C BC #### [facility] [address] [place] [address] Dr. Bella Jerome LYMPH # 2.3 103/ul Normal 1.2-3.8 [facility] Comment on above: Performed By: #### C BC #### [facility] [address] [place] [address] Dr. Bella Jerome Lymphocytes/100 WBC (Bld) 34.1 % Normal 20.5-60.0 [facility] Comment on above: Performed By: #### C BC #### [facility] [address] [place] [address] Dr. Bella Jerome MANUAL DIFF REQ NO Normal [facility] Comment on above: Performed By: #### C BC #### [facility] [address] [place] [address] Dr. Bella Jerome MCH (RBC) [Entitic mass] 30.9 pg Normal 26.7-34.0 [facility] Comment on above: Performed By: #### C BC #### [facility] [address] [place] [address] Dr. Bella Jerome MCHC (RBC) [Mass/Vol] 33.6 g/dL Normal 29.9-35.2 [facility] Comment on above: Performed By: #### C BC #### [facility] [address] [place] [address] Dr. Bella Jerome MCV (RBC) [Entitic vol] 91.9 fL Normal 81.0-99.0 [facility] Comment on above: Performed By: #### C BC #### [facility] [address] [place] [address] Dr. Bella Jerome MONO # 0.4 103/ul Normal 0.3-0.8 [facility] Comment on above: Performed By: #### C BC #### [facility] [address] [place] [address] Dr. Bella Jerome Monocytes/100 WBC (Bld) 5.1 % Normal 1.7-12.0 [facility] Comment on above: Performed By: #### C BC #### [facility] [address] [place] [address] Dr. Bella Jerome NEUT # 4.0 103/ul Normal 1.4-6.5 [facility] Comment on above: Performed By: #### C BC #### [facility] [address] [place] [address] Dr. Bella Jerome Neutrophils/100 WBC (Bld) 58.6 % Normal 43.0-75.0 [facility] Comment on above: Performed By: #### C BC #### [facility] [address] [place] [address] Dr. Bella Jerome Platelet mean volume (Bld) [Entitic vol] 11.5 fL Normal 9.5-13.5 [facility] Comment on above: Performed By: #### C BC #### [facility] [address] [place] [address] Dr. Bella Jerome PLT 243 103/ul Normal 150-450 [facility] Comment on above: Performed By: #### C BC #### [facility] [address] [address] [address] Bella Jerome RBC 4.05 106/ul Critically low 4.20-5.40 [facility] Comment on above: Performed By: #### C BC #### [facility] [address] [address] [address] Bella Jerome WBC 6.8 103/ul Normal 4.0-11.0 [facility] Comment on above: Performed By: #### C BC #### [facility] [address] [address] [address] Bella Jerome FREE T4on 12-26-2022 Free T4 [Mass/Vol] 1.05 ng/dL Normal 0.76-1.46 [facility] Comment on above: Performed By: #### F T4, VITAD, B12FOL, IRON ####[facility] [address] [address]Dr. Bella Jerome GLYCOHEMOGLOBIN A1Con 2022 ADA RECOMMENDATION SEE BELOW Normal [facility] Comment on above: Result Comment: ADA RECOMMENDED LIMIT 4.0 - 6.0 ADA THERAPEUTIC TARGET < 7.0 ACTION SUGGESTED > 7.0 Performed By: #### A 1C #### [facility] [address] [place] [address] Dr. Bella Jerome Glucose [Mass/Vol] 103 mg/dL Normal [facility] Comment on above: Performed By: #### A 1C #### [facility] [address] [place] [address] Dr. Bella Jerome HbA1c (Bld) [Mass fraction] 5.2 % Normal 4.5-6.2 [facility] Comment on above: Performed By: #### A 1C #### [facility] [address] [address] [address] Bella Jerome IRONon 12-26-2022 Iron [Mass/Vol] 74.0 ug/dL Normal 50.0-170.0 [facility] Comment on above: Performed By: #### F T4, VITAD, B12FOL, IRON ####[facility] [address] [place], [place] [address]TkDr. eBlla Jerome LIPID PROFILEon 12-26-2022 CHOL-HDL RATIO NORM SEE BELOW Normal [facility] Comment on above: Result Comment: 3.3 - 4.4 LOW RISK 4.4 - 7.1 AVERAGE RISK 7.1 - 11.0 MODERATE RISK >11.0 HIGH RISK Performed By: #### C MP, TSH, LIPID #### [facility] [address] [address] [address] Bella Jerome Cholesterol [Mass/Vol] 153 mg/dL Normal <=200 [facility] Comment on above: Performed By: #### C MP, TSH, LIPID #### [facility] [address] [address] [address] Bella Jerome Cholesterol in HDL [Mass/Vol] 67 mg/dL Critically high 40-60 [facility] Comment on above: Performed By: #### C MP, TSH, LIPID #### [facility] [address] [address] [address] Bella Jerome Cholesterol in LDL [Mass/Vol] 77.2 mg/dL Normal [facility] Comment on above: Performed By: #### C MP, TSH, LIPID #### [facility] [address] [place], [place] [address] Dr. Bella Jerome Cholesterol.total/Ch olesterol in HDL [Mass ratio] 2.3 {ratio} Normal [facility] Comment on above: Performed By: #### C MP, TSH, LIPID #### [facility] [address] [place], [place] [address] Dr. Bella Jerome HDL NORMAL > or = 60 mg/dl - LOW CARDIOVASCULAR RISK <40 mg/dl - HIGH CARDIOVASCULAR RISK Normal [facility] Comment on above: Performed By: #### C MP, TSH, LIPID #### [facility] [address] [place], [place] [address] Dr. Bella Jerome LDL CALC NORMAL SEE BELOW Normal [facility] Comment on above: Result Comment: <100 mg/dl OPTIMAL 100 - 129 mg/dl NEAR OR ABOVE OPTIMAL 130 - 159 mg/dl BORDERLINE HIGH 160 - 189 mg/dl HIGH >190 mg/dl VERY HIGH Performed By: #### C MP, TSH, LIPID #### [facility] [address] [address] [address] Bella Jerome Triglyceride [Mass/Vol] 44 mg/dL Normal <=150 [facility] Comment on above: Performed By: #### C MP, TSH, LIPID #### [facility] [address] [address] [address] Bella Jerome VLDL CALC 8.8 mg/dL Normal [facility] Comment on above: Performed By: #### C MP, TSH, LIPID #### [facility] [address] [address] [address] Bella Jerome MICROALB CREAT RATIO RANDOMo n 12-26-2022 mALB 2.3 mg/L Normal <=30.0 [facility] Comment on above: Performed By: #### H H #### [facility] [address] [address] [address] Bella DENISEB CR RATIO 17.4 mg/g Normal 0.0-29.9 [facility] Comment on above: Performed By: #### H H #### [facility] [address] [address] [address] Bella Jerome MALB CR RATIO RANGE SEE BELOW Normal [facility] Comment on above: Result Comment: NO M ICROALBUMINURIA 0-29 MG/G CLINICAL MICROALBUMINURIA 30-300 MG/G MACROALBUMINURIA >300 MG/G Performed By: #### H H #### [facility] [address] [address] [address] Bella Jerome URINE CREAT 131.90 mg/dL Normal 20.00-300.00 [facility] Comment on above: Performed By: #### H H #### [facility] [address] [address] [address] Bella Jerome PROF 14(COMP METB)on 023 Albumin [Mass/Vol] 4.1 g/dL Normal 3.4-5.0 [facility] Comment on above: Performed By: #### C MP, TSH, LIPID #### [facility] [address] [address] [address] Bella Jerome Albumin/Globulin [Mass ratio] 1.3 {ratio} Normal [facility] Comment on above: Performed By: #### C MP, TSH, LIPID #### [facility] [address] [address] [address] Bella Jerome ALP [Catalytic activity/Vol] 124 U/L Critically high 46-116 [facility] Comment on above: Performed By: #### C MP, TSH, LIPID #### [facility] [address] [address] [address] Bella Jerome ALT [Catalytic activity/Vol] 16 U/L Normal 14-59 [facility] Comment on above: Performed By: #### C MP, TSH, LIPID #### [facility] [address] [address] [address] Bella Jerome Anion gap [Moles/Vol] 13.4 mmol/L Normal [facility] Comment on above: Performed By: #### C MP, TSH, LIPID #### [facility] [address] [address] [address] Bella Jerome AST [Catalytic activity/Vol] 17 U/L Normal 15-37 [facility] Comment on above: Performed By: #### C MP, TSH, LIPID #### [facility] [address] [address] [address] Bella Jerome Bilirubin [Mass/Vol] 0.8 mg/dL Normal 0.2-1.0 [facility] Comment on above: Performed By: #### C MP, TSH, LIPID #### [facility] [address] [address] [address] Bella Jerome Calcium [Mass/Vol] 8.9 mg/dL Normal 8.5-10.1 [facility] Comment on above: Performed By: #### C MP, TSH, LIPID #### [facility] [address] [address] [address] Bella Jerome Chloride [Moles/Vol] 103 mmol/L Normal 98-107 [facility] Comment on above: Performed By: #### C MP, TSH, LIPID #### [facility] [address] [address] [address] Bella Jerome CO2 [Moles/Vol] 25.6 mmol/L Normal 21.0-32.0 [facility] Comment on above: Performed By: #### C MP, TSH, LIPID #### [facility] [address] [address] [address] Bella Jerome Creatinine [Mass/Vol] 0.55 mg/dL Normal 0.55-1.02 [facility] Comment on above: Performed By: #### C MP, TSH, LIPID #### [facility] [address] [place] [address] Dr. Bella Jerome EGFR-AF [place]IZ[place] >60 Normal >=60 [facility] Comment on above: Performed By: #### C MP, TSH, LIPID #### [facility] [address] [place] [address] Dr. Bella Jerome EGFR-NON AF [place]IZ[place] >60 Normal >=60 [facility] Comment on above: Performed By: #### C MP, TSH, LIPID #### [facility] [address] [place] [address] Dr. Bella Jerome Globulin (S) [Mass/Vol] 3.1 g/dL Normal [facility] Comment on above: Performed By: #### C MP, TSH, LIPID #### [facility] [address] [place] [address] Dr. Bella Jerome Glucose [Mass/Vol] 82 mg/dL Normal 74-106 [facility] Comment on above: Performed By: #### C MP, TSH, LIPID #### [facility] [address] [address] [address] Bella Jerome Potassium [Moles/Vol] 4.0 mmol/L Normal 3.5-5.1 [facility] Comment on above: Performed By: #### C MP, TSH, LIPID #### [facility] [address] [place] [address] Dr. Bella Jerome Protein [Mass/Vol] 7.2 g/dL Normal 6.4-8.2 [facility] Comment on above: Performed By: #### C MP, TSH, LIPID #### [facility] [address] [address] [address] Bella Jerome Sodium [Moles/Vol] 138 mmol/L Normal 136-145 [facility] Comment on above: Performed By: #### C MP, TSH, LIPID #### [facility] [address] [address] [address] Bella Jerome Urea nitrogen [Mass/Vol] 14.0 mg/dL Normal 7.0-18.0 [facility] Comment on above: Performed By: #### C MP, TSH, LIPID #### [facility] [address] [address] [address] Bella Jerome Urea nitrogen/Creatinine [Mass ratio] 25.5 mg/mg Normal [facility] Comment on above: Performed By: #### C MP, TSH, LIPID #### [facility] [address] [address] [address] Bella Jerome TSHon 12-26-2022 TSH 0.224 uIU/mL Critically low 0.358-3.740 [facility] Comment on above: Performed By: #### C MP, TSH, LIPID #### [facility] [address] [place] [address] Dr. Bella Jerome VIT B12 AND FOLATEon 023 Cobalamin (Vitamin B12) [Mass/Vol] 702.0 pg/mL Normal 193.0-986.0 [facility] Comment on above: Performed By: #### F T4, VITAD, B12FOL, IRON ####[facility] [address] [address]Dr. Bella Jerome FOLATE 25.10 ng/mL Normal 8.60-58.90 [facility] Comment on above: Performed By: #### F T4, VITAD, B12FOL, IRON ####[facility] [address] [address]Dr. Bella Jerome VITAMIN D 25 OHon 12-26-2022 VIT D 25-OH 25.4 ng/mL Normal [facility] Comment on above: Performed By: #### F T4, VITAD, B12FOL, IRON ####[facility] [address] [id number]. Bella Jerome VIT D RANGES SEE BELOW [facility] Comment on above: Result Comment: <20 ng/mL Vit D deficient 20 - <30 ng/mL Vit D insufficient 30 - 100 ng/mL Vit D sufficient >100 ng/mL Potential Toxicity Performed By: #### F T4, VITAD, B12FOL, IRON ####[facility] [address] [place], [place] [address]PwDr. Bella Jerome PAP ACOG PANEL 2: 23 to 31on 12-18-2022 . . Normal [facility] Comment on above: Performed By: #### C BC #### [facility] [address] [place] [address] Dr. Bella Jerome Age Gdln ACOG Testing [facility] Comment on above: Performed By: #### C BC #### [facility] [address] [place] [address] Dr. Bella Jerome DIAGNOSIS: Comment [facility] Comment on above: Result Comment: NEGA TIVE FOR INTRAEPITHELIAL LESION OR MALIGNANCY. Performed By: #### C BC #### [facility] [address] [place] [address] Dr. Bella Jerome Methodology: Comment [facility] Comment on above: Result Comment: This liquid based ThinPrep(R) pap test was screened with the use of an image guided system. Performed By: #### C BC #### [facility] [address] [place] [address] Dr. Bella Jerome Note: Comment [facility] Comment on above: Result Comment: The Pap smear is a screening test designed to aid in the detection of premalignant and malignant conditions of the uterine cervix. It is not a diagnostic procedure and should not be used as the sole means of detecting cervical cancer. Both false-positive and false-negative reports do occur. . Performed By: #### C BC #### [facility] [address] [address] [address] Bella Jerome Performed by: Comment Normal [facility] Comment on above: Result Comment: Byron Irby, Test Inspection Engineer (ASCP) Performed By: #### C BC #### [facility] [address] [address] [address] Bella Jerome Reflex Criteria: Comment Normal [facility] Comment on above: Result Comment: The HPV DNA reflex criteria were not met with this specimen result therefore, no HPV testing was performed. . Performed By: #### C BC #### [facility] [address] [address] [address] Bella Jerome Specimen adequacy: Comment Normal [facility] Comment on above: Result Comment: Sati sfactory for evaluation. Endocervical and/or squamous metaplastic cells (endocervical component) are present. Performed By: #### C BC #### [facility] [address] [place] [address] Dr. Bella Jerome CBC W MANUAL DIFFon 09-07-20 22 ATYPICAL LYMPH # Normal [facility] Comment on above: Performed By: #### C BCMAN ####[facility] [address] [address]Dr. Bella Jerome ATYPICAL LYMPH % Normal [facility] Comment on above: Performed By: #### C BCMAN ####[facility] [address] [address]Dr. Bella Jerome BAND # 0.2 103/ul Normal 0.0-0.3 [facility] Comment on above: Performed By: #### C BCMAN ####[facility] [address] [address]Dr. Bella Jerome BAND % 1 % Normal 0-5 [facility] Comment on above: Performed By: #### C BCMAN ####[facility] [address] [address]Dr. Bella Jerome BASOM # 0.00 103/ul Normal 0.00-0.10 [facility] Comment on above: Performed By: #### C BCMAN ####[facility] [address] [address]Dr. Bella Jerome BASOM % 0.0 % Critically low 0.2-2.0 [facility] Comment on above: Performed By: #### C BCMAN ####[facility] [address] [address]Dr. Bella Jerome BLAST # Normal [facility] Comment on above: Performed By: #### C BCMAN ####[facility] [address] [address]Dr. Bella Jerome BLAST % Normal [facility] Comment on above: Performed By: #### C BCMAN ####[facility] [address] [address]Dr. Bella Jerome CORRECTED WBC Normal 4.0-11.0 [facility] Comment on above: Performed By: #### C BCRELL ####[facility] [address] [place], [place] [address]Dr. Bella Jerome EOS # 0.00 103/ul Normal 0.00-0.70 [facility] Comment on above: Performed By: #### C BCRELL ####[facility] [address] [place], [place] [address]Dr. Bella Jerome EOS% 0.0 % Critically low 0.9-7.0 [facility] Comment on above: Performed By: #### C BCRELL ####[facility] [address] [place], [place] [address]Dr. Bella Jerome HCT 30.5 % Critically low 36.0-48.0 [facility] Comment on above: Performed By: #### C BCMAN ####[facility] [address] [place], [place] [address]Dr. Bella Jerome HGB 10.5 g/dl Critically low 12.0-16.0 [facility] Comment on above: Performed By: #### C BCMAN ####[facility] [address] [place], [place] [address]Dr. Bella Jerome LYMPHM # 2.78 103/ul Normal 1.20-3.80 [facility] Comment on above: Performed By: #### C PEDRO ####[facility] [address] [place] [address]Dr. Bella Jerome LYMPHM% 13.0 % Critically low 20.5-60.0 [facility] Comment on above: Performed By: #### C PEDRO ####[facility] [address] [address]Dr. Bella Jerome MCH 32.8 pg Normal 26.7-34.0 [facility] Comment on above: Performed By: #### C PEDRO ####[facility] [address] [place] [address]Dr. Bella Jerome MCHC 34.4 g/dl Normal 29.9-35.2 [facility] Comment on above: Performed By: #### C PEDRO ####[facility] [address] [address]Dr. Bella Jerome MCV 95.3 fL Normal 81.0-99.0 [facility] Comment on above: Performed By: #### C PEDRO ####[facility] [address] [place] [id number]. Bella Jerome METAMYELOCYTE # Normal [facility] Comment on above: Performed By: #### C PEDRO ####[facility] [address] [place] [id number]. Bella Jerome METAMYELOCYTE % Normal [facility] Comment on above: Performed By: #### Jennifer VASQUEZ ####[facility] [address]qodhgl[address]zx[address] [place] [id number]. Bella Jerome MONOM# 2.35 103/ul Critically high 0.30-0.80 [facility] Comment on above: Performed By: #### C PEDRO ####[facility] [address] [place] [id number]. Bella Jerome MONOM% 11.0 % Normal 1.7-12.0 [facility] Comment on above: Performed By: #### C PEDRO ####[facility] Oxxsdunv[address] [place] [id number]. Bella Jerome MPV 11.1 fL Normal 9.5-13.5 [facility] Comment on above: Performed By: #### C PEDRO ####[facility] Fgrvjtovqo[address] [place] [id number]. Bella Jerome MYELOCYTE # Normal [facility] Comment on above: Performed By: #### C PEDRO ####[facility] [address] [place], [place] [address]Rc. Bella Jerome MYELOCYTE % Normal [facility] Comment on above: Performed By: #### C PEDRO ####[facility] [address] [place], [place] [address]Ye. Bella Jerome NRBC Normal [facility] Comment on above: Performed By: #### C PEDRO ####[facility] [address] [place], [place] [address]Xu. Bella Jerome PLT 227 103/ul Normal 150-450 [facility] Comment on above: Performed By: #### C PEDRO ####[facility] Odxmwdxrhi[address] [place] [id number]. Bella Jerome RBC 3.20 106/ul Critically low 4.20-5.40 [facility] Comment on above: Performed By: #### C PEDRO ####[facility] Xxymkypxue60[address] [place] [id number]. Bella Jerome RDW 12.8 % Normal 11.0-15.0 [facility] Comment on above: Performed By: #### C PEDRO ####[facility] Fsfmunzaco[address] [place] [id number]. Bella Jerome SEG # 16.05 103/ul Critically high 1.40-6.50 [facility] Comment on above: Performed By: #### C PEDRO ####[facility] [address] [place] [id number]. Bella Jerome SEG % 75.0 % Normal 43.0-75.0 [facility] Comment on above: Performed By: #### C PEDRO ####[facility] Vyqtacmtpj[address] [place] [id number]. Bella Jerome WBC 21.4 103/ul Critically high 4.0-11.0 [facility] Comment on above: Performed By: #### C BCMAN ####[facility] [address] [place] [address]Dr. Bella Jerome CBC AUTO DIFFon 09-05-2022 BASO # 0.0 103/ul Normal 0.0-0.1 [facility] Comment on above: Performed By: #### C BC #### [facility] [address] [place] [address] [address] Bella Jerome Basophils/100 WBC (Bld) 0.2 % Normal 0.2-2.0 [facility] Comment on above: Performed By: #### C BC #### [facility] [address] [place] [address] Dr. Bella Jerome EO # 0.1 103/ul Normal 0.0-0.7 [facility] Comment on above: Performed By: #### C BC #### [facility] [address] [place] [address] [address] Bella Jerome Eosinophils/100 WBC (Bld) 0.6 % Critically low 0.9-7.0 [facility] Comment on above: Performed By: #### C BC #### [facility] [address] [place] [address] Dr. Bella Jerome Erythrocyte distribution width (RBC) [Ratio] 12.6 % Normal 11.0-15.0 [facility] Comment on above: Performed By: #### C BC #### [facility] [address] [place] [address] Dr. Bella Jerome Hematocrit (Bld) [Volume fraction] 32.5 % Critically low 36.0-48.0 [facility] Comment on above: Performed By: #### C BC #### [facility] [address] [place] [address] [address] Bella Jerome Hemoglobin (Bld) [Mass/Vol] 11.1 g/dL Critically low 12.0-16.0 [facility] Comment on above: Performed By: #### C BC #### [facility] [address] [place] [address] Dr. Bella Jerome IG # 0.14 10e3/ul Critically high 0.00-0.03 [facility] Comment on above: Performed By: #### C BC #### [facility] [address] [place] [address] Dr. Bella Jerome IG % 1.1 % Critically high 0.0-0.5 [facility] Comment on above: Performed By: #### C BC #### [facility] [address] [place] [address] Dr. Bella Jerome LYMPH # 2.6 103/ul Normal 1.2-3.8 [facility] Comment on above: Performed By: #### C BC #### [facility] [address] [place] [address] Dr. Bella Jerome Lymphocytes/100 WBC (Bld) 20.2 % Critically low 20.5-60.0 [facility] Comment on above: Performed By: #### C BC #### [facility] [address] [place] [address] Dr. Bella Jerome MANUAL DIFF REQ NO Normal [facility] Comment on above: Performed By: #### C BC #### [facility] [address] [place] [address] Dr. Bella Jerome MCH (RBC) [Entitic mass] 32.2 pg Normal 26.7-34.0 [facility] Comment on above: Performed By: #### C BC #### [facility] [address] [place] [address] Dr. Bella Jerome MCHC (RBC) [Mass/Vol] 34.2 g/dL Normal 29.9-35.2 [facility] Comment on above: Performed By: #### C BC #### [facility] [address] [place] [address] Dr. Bella Jerome MCV (RBC) [Entitic vol] 94.2 fL Normal 81.0-99.0 [facility] Comment on above: Performed By: #### C BC #### [facility] [address] [place] [address] Dr. Bella Jerome MONO # 0.9 103/ul Critically high 0.3-0.8 [facility] Comment on above: Performed By: #### C BC #### [facility] [address] [place] [address] [address] Bella Jerome Monocytes/100 WBC (Bld) 7.1 % Normal 1.7-12.0 [facility] Comment on above: Performed By: #### C BC #### [facility] [address] [place] [address] [address] Bella Jerome NEUT # 8.9 103/ul Critically high 1.4-6.5 [facility] Comment on above: Performed By: #### C BC #### [facility] [address] [place] [address] Dr. Bella Jerome Neutrophils/100 WBC (Bld) 70.8 % Normal 43.0-75.0 [facility] Comment on above: Performed By: #### C BC #### [facility] [address] [place] [address] Dr. Bella Jerome Platelet mean volume (Bld) [Entitic vol] 11.0 fL Normal 9.5-13.5 [facility] Comment on above: Performed By: #### C BC #### [facility] [address] [place] [address] Dr. Bella Jerome PLT 234 103/ul Normal 150-450 [facility] Comment on above: Performed By: #### C BC #### [facility] [address] [place] [address] Dr. Bella Jerome RBC 3.45 106/ul Critically low 4.20-5.40 [facility] Comment on above: Performed By: #### C BC #### [facility] [address] [place] [address] Dr. Bella Jerome WBC 12.6 103/ul Critically high 4.0-11.0 [facility] Comment on above: Performed By: #### C BC #### [facility] [address] [place] [address] Dr. Bella Jerome Covid-19 PCR (CVDTBH)on SARS-CoV-2 (COVID-19) RNA FAVIAN+probe Ql (Unsp spec) Not detected Normal NOT DETECTED [facility] Comment on above: Result Comment: When [...] for this test is supported by the [place] of [employer] and Human Service's declaration that [...] longer be used). Performed By: #### C VDTB ####[facility] [address] [place] [address]Dr. Bella Jerome DRUG SCREEN RAPID (URINE)on 09-05-2022 AMP Negative Normal NEGATIVE [facility] Comment on above: Performed By: #### D RUGRPD ####[facility] [address] [place], [place] [address]Dr. Bella [facility] BAR Negative Normal NEGATIVE [facility] Comment on above: Performed By: #### D RUGRPD ####[facility] [address] [place] [address]Dr. Bella Jerome BUP Negative Normal NEGATIVE [facility] Comment on above: Performed By: #### D RUGRPD ####[facility] [address] [place] [address]Dr. Bella Jerome BZO Negative Normal NEGATIVE [facility] Comment on above: Performed By: #### D RUGRPD ####[facility] [address] [place] [id number]. Lilan Jerome NGA Negative Normal NEGATIVE [facility] Comment on above: Performed By: #### D RUGRPD ####[facility] [address] [place], [place] [address]Dr. Bella Jerome CUT-OFFS SEE BELOW Normal [facility] Comment on above: Result [...] 300 ng/mL Performed By: #### D RUGRPD ####[facility] Ox[address]pvkat[address] [place], [place] [address]Dr. Bella Jerome DRUG CUT HEADER DRUG CLASS TEST SYSTEM CUT-OFF CONCENTRATIONS ARE FOLLOWS: Normal [facility] Comment on above: Performed By: #### D RUGRPD ####[facility] Ctzz[address] [place], [place] [address]Dr. Bella Jerome mAMP Negative Normal NEGATIVE [facility] Comment on above: Performed By: #### D RUGRPD ####[facility] [address] [place], [place] [address]Dr. Bella Jerome MTD Negative Normal NEGATIVE [facility] Comment on above: Performed By: #### D RUGRPD ####[facility] [address] [place], [place] [address]Dr. Bella Jerome OPI Negative Normal NEGATIVE [facility] Comment on above: Performed By: #### D RUGRPD ####[facility] [address] [place], [place] [address]Dr. Bella Jerome OXY Negative Normal NEGATIVE [facility] Comment on above: Performed By: #### D RUGRPD ####[facility] [address] [place], [place] [address]Dr. Bella Jerome PCP Negative Normal NEGATIVE [facility] Comment on above: Performed By: #### D RUGRPD ####[facility] [address] [place], [place] [address]Fe. Bella Jerome PPX Negative Normal NEGATIVE [facility] Comment on above: Performed By: #### D RUGRPD ####[facility] [address] [place], [place] [address]So. Bella Jerome TCA Negative Normal NEGATIVE [facility] Comment on above: Performed By: #### D RUGRPD ####[facility] [address] [place], [place] [address]Av. Bella Jerome THC Negative Normal NEGATIVE [facility] Comment on above: Performed By: #### D RUGRPD ####[facility] [address] [place], [place] [address]Qh. Bella Jerome TYPE AND SCREENon 09-05-2022 TYPE AND SCREEN Negative Normal [facility] Comment on above: Performed By: #### T NS ####[facility] [address] [place], [place] [address]Ws. Bella Jerome US PREG BIOPHY W NON [...] MANUELITO GREGG Date: 2022-08-31 17:06 Normal [facility] US PREG GROWTHon 08-30-2022 [...] by: MANUELITO GREGG Date: 2022-08-30 17:59 Normal [facility] US PREG BIOPHY W NON STRESSo [...] MANUELITO GREGG Date: 2022-08-24 17:10 Normal [facility] FREE T4on 08-21-2022 Free T4 [Mass/Vol] 0.90 ng/dL Normal 0.76-1.46 [facility] Comment on above: Performed By: #### C BC #### [facility] [address] [place] [address] [address] Bella Jerome TSHon 08-21-2022 TSH 1.033 uIU/mL Normal 0.358-3.740 [facility] Comment on above: Performed By: #### H H #### [facility] [address] [place] [address] [address] Bella Jerome US PREG BIOPHY W [...] MANUELITO GREGG Date: 2022-08-17 18:33 Normal [facility] GROUP B STREP CULTUREon 07-28 S. agalactiae Ag Ql (Unsp spec) Culture Observations: NEGATIVE FOR GROUP B STREPTOCOCCUS. Normal [facility] Comment on above: Performed By: #### G BSCX ####[facility] [address] [place], [place] [address]DwWill Bella Jerome US PREG BIOPHY W NON [...] MANUELITO GREGG Date: 2022-08-10 16:36 Normal [facility] US PREG GROWTHon 08-10-2022 US PREG [...] MANUELITO GREGG Date: 2022-08-10 16:37 Normal [facility] US PREG GROWTHon 07-25-2022 US PREG [...] MANUELITO GREGG Date: 2022-07-25 18:18 Normal [facility] FREE T4on 07-24-2022 Free T4 [Mass/Vol] 0.98 ng/dL Normal 0.76-1.46 [facility] Comment on above: Performed By: #### F T4 #### [facility] [address] [place] [address] Dr. Belal Jerome TSHon 07-24-2022 TSH 1.196 uIU/mL Normal 0.358-3.740 [facility] Comment on above: Performed By: #### T SH ####[facility] [address] [place] [address]Dr. Bella Jerome UA (CLEAN/CATCH) DRAW OFF WORKER/MICRO I F IND.on 07-20-2022 Bilirubin Ql (U) Negative Normal NEGATIVE [facility] Comment on above: Performed By: #### H H #### [facility] [address] [place] [address] Dr. Bella Jerome Clarity (U) CLEAR Normal CLEAR [facility] Comment on above: Performed By: #### H H #### [facility] [address] [place] [address] Dr. Bella Jerome Color (U) LT. YELLOW Normal YELLOW [facility] Comment on above: Performed By: #### H H #### [facility] [address] [place] [address] Dr. Bella Jerome Glucose Ql (U) Negative Normal NEGATIVE [facility] Comment on above: Performed By: #### H H #### [facility] [address] [place] [address] Dr. Bella Jerome Hemoglobin Ql (U) Negative Normal NEGATIVE [facility] Comment on above: Performed By: #### H H #### [facility] [address] [place] [address] Dr. Bella Jerome Ketones Ql (U) Negative Normal NEGATIVE [facility] Comment on above: Performed By: #### H H #### [facility] [address] [place] [address] Dr. Bella Jerome LEUKOCYTES Negative Normal NEGATIVE [facility] Comment on above: Performed By: #### H H #### [facility] [address] [place] [address] Dr. Bella Jerome Nitrite Ql (U) Negative Normal NEGATIVE [facility] Comment on above: Performed By: #### H H #### [facility] [address] [place] [address] Dr. Bella Jerome pH (U) 7.0 [pH] Normal 5-9 [facility] Comment on above: Performed By: #### H H #### [facility] [address] [place] [address] Dr. Bella Jerome SPEC GRAVITY <=1.005 Abnormal 1.005-<=1.025 [facility] Comment on above: Performed By: #### H H #### [facility] [address] [place] [address] Dr. Bella Jerome UA PROTEIN Negative Normal NEGATIVE/ TRACE [facility] Comment on above: Performed By: #### H H #### [facility] [address] [place] [address] Dr. Bella Jerome UR MICRO IND NOT INDICATED Normal [facility] Comment on above: Performed By: #### H H #### [facility] [address] [place] [address] Dr. Bella Jerome Urobilinogen Qn (U) 0.2 {Kimberlee'U}/dL Normal 0.2 - 1. 0 [facility] Comment on above: Performed By: #### H H #### [facility] [address] [place] [address] Dr. Bella Jerome PREG GROWTHon 06-27-2022 US [...] by: RAGINI SANTOS Date: 2022-06-27 16:23 Normal [facility] FREE T4on 06-20-2022 Free T4 [Mass/Vol] 0.82 ng/dL Normal 0.76-1.46 [facility] Comment on above: Performed By: #### H H #### [facility] [address] [place] [address] Dr. Bella Jerome GLUCOSE - 1HRon 06-20-2022 Glucose [Mass/Vol] 127 mg/dL Critically high 74-106 [facility] Comment on above: Performed By: #### H H #### [facility] [address] [place] [address] Dr. Bella Jerome HEMOGRAM AND PLATELon 2021 Hematocrit (Bld) [Volume fraction] 32.4 % Critically low 36.0-48.0 [facility] Comment on above: Performed By: #### H H #### [facility] [address] [place] [address] Dr. Bella Jerome Hemoglobin (Bld) [Mass/Vol] 10.9 g/dL Critically low 12.0-16.0 [facility] Comment on above: Performed By: #### H H #### [facility] [address] [place] [address] Dr. Bella Jerome MCH (RBC) [Entitic mass] 32.9 pg Normal 26.7-34.0 [facility] Comment on above: Performed By: #### H H #### [facility] [address] [place] [address] Dr. Bella Jerome MCHC (RBC) [Mass/Vol] 33.6 g/dL Normal 29.9-35.2 [facility] Comment on above: Performed By: #### H H #### [facility] [address] [place] [address] Dr. Bella Jerome MCV (RBC) [Entitic vol] 97.9 fL Normal 81.0-99.0 [facility] Comment on above: Performed By: #### H H #### [facility] [address] [place] [address] Dr. Bella Jerome PLT 241 103/ul Normal 150-450 [facility] Comment on above: Performed By: #### H H #### [facility] [address] [place], [place] [address] Dr. Bella Jerome RBC 3.31 106/ul Critically low 4.20-5.40 [facility] Comment on above: Performed By: #### H H #### [facility] [address] [place] [id number] [address] Bella Jerome WBC 11.3 103/ul Critically high 4.0-11.0 [facility] Comment on above: Performed By: #### H H #### [facility] [address] [place] [address] Dr. Bella Jerome TSHon 06-20-2022 TSH 3.044 uIU/mL Normal 0.358-3.740 [facility] Comment on above: Performed By: #### C BC #### [facility] [address] [place], [place] [id number] Dr. Bella Jerome US PREG INCOMPLETE ANATOMYon 05-24-2022 US PREG INCOMPLETE ANATOMY EXAMINATION: US PREG INCOMPLETE ANATOMY HISTORY: screening COMPARISON: Ultrasound anatomy 04/26/2022 FINDINGS: Presentation: Cephalic Heart rate: 154 bpm Anatomy: Cervical, thoracic, and lumbar spine HERNANDO: 09/13/2022 IMPRESSION: 1. Adequate visualization of the cervical, thoracic, and lumbar spine; no appreciable abnormality. Electronically authenticated by: RAGINI SANTOS Date: 2022-05-24 17:33 Normal [facility] US PREG ANATOMY SINGLEon US PREG [...] MANUELITO GREGG Date: 2022-04-26 16:54 Normal [facility] CHLAMYDIA/GONOCOCCUS FAVIAN (SW AB/URINE/PAPon 04-19-2022 Chlamydia trachomatis, FAVIAN Negative Normal Negative [facility] Comment on above: Performed By: #### C T/NGNA ####[facility] [address] [place] [address]Dr. Bella Jerome Neisseria gonorrhoeae, FAVIAN Negative Normal Negative [facility] Comment on above: Performed By: #### C T/NGNA ####[facility] [address] [place] [address]Dr. Bella Jerome VAGINITIS/VAGINOSIS DNA PROB Leonid 04-18-2022 Jessica species Negative Normal Negative [facility] Comment on above: Performed By: #### H H #### [facility] [address] [place] [address] [address] Bella Jerome Gardnerella vaginalis Negative Normal Negative [facility] Comment on above: Performed By: #### H H #### [facility] [address] [place] [address] [address] Bella Jerome Trichomonas vaginalis Negative Normal Negative [facility] Comment on above: Performed By: #### H H #### [facility] [address] [place] [address] Dr. Bella Jerome FREE T4on 04-05-2022 Free T4 [Mass/Vol] 0.88 ng/dL Normal 0.76-1.46 [facility] Comment on above: Performed By: #### F T4 #### [facility] [address] [place] [address] Dr. Bella Jerome TSHon 04-05-2022 TSH 1.786 uIU/mL Normal 0.358-3.740 [facility] Comment on above: Performed By: #### T SH ####[facility] [address] [place], [place] [address]Dr. Bella Jerome TSH RANGE SEE BELOW Normal [facility] Comment on above: Result Comment: <0.3 4 UIU/ml HYPERTHYROID 0.34-5.60 UIU/ml EUTHYROID >5.60 UIU/ml HYPOTHYROID Performed By: #### T SH ####[facility] [address] [place], [place] [address]Dr. Bella Jerome FREE T4on 02-26-2022 Free T4 [Mass/Vol] 1.06 ng/dL Normal 0.76-1.46 [facility] Comment on above: Performed By: #### C BC #### [facility] [address] [place] [address] Dr. Bella Jerome TSHon 02-26-2022 TSH 2.024 uIU/mL Normal 0.470-4.680 [facility] Comment on above: Performed By: #### C BC #### [facility] [address] [place] [address] Dr. Bella Jerome TSH RANGE SEE BELOW Normal [facility] Comment on above: Result Comment: <0.3 4 UIU/ml HYPERTHYROID 0.34-5.60 UIU/ml EUTHYROID >5.60 UIU/ml HYPOTHYROID Performed By: #### C BC #### [facility] [address] [place] [address] Dr. Bella Jerome Vital Signs Date Time Vital Sign Value Performing Clinician Facility 11-05-2024 14:19-0500 Body mass index (BMI) [Ratio] 42.34 kg/m2 Marylou Anjel PA Work Phone: [facility] 11-05-2024 14:19-0500 Body weight 108.41 kg Marylou [place] PA Work Phone: [facility] 11-05-2024 14:19-0500 Diastolic blood pressure 76 mm[Hg] Marylou Anjel PA Work Phone: [facility] 11-05-2024 14:19-0500 Systolic blood pressure 126 mm[Hg] Marylou Anjel PA Work Phone: [facility] 09-14-2024 10:37-0500 Body mass index (BMI) [Ratio] 43.95 kg/m2 Marylou [place] PA Work Phone: [facility] 09-14-2024 10:37-0500 Body weight 112.55 kg Marylou Anjel PA Work Phone: [facility] 09-14-2024 10:37-0500 Diastolic blood pressure 70 mm[Hg] Marylou [place] PA Work Phone: [facility] 09-14-2024 10:37-0500 Systolic blood pressure 130 mm[Hg] Marylou [place] PA Work Phone: [facility] 09-08-2024 10:56-0500 Body mass index (BMI) [Ratio] 44.07 kg/m2 Edgar Marquita DO Work Phone: [facility] 09-08-2024 10:56-0500 Body weight 112.86 kg Edgar Marquita DO Work Phone: [facility] 09-08-2024 10:56-0500 Diastolic blood pressure 70 mm[Hg] Edgar Marquita DO Work Phone: [facility] 09-08-2024 10:56-0500 Systolic blood pressure 120 mm[Hg] Edgar Marquita DO Work Phone: [facility] 09-01-2024 14:03-0500 Body mass index (BMI) [Ratio] 44.25 kg/m2 Edgar Marquita DO Work Phone: [facility] 09-01-2024 14:03-0500 Body weight 113.31 kg Edgar Marquita DO Work Phone: [facility] 09-01-2024 14:03-0500 Diastolic blood pressure 78 mm[Hg] Edgar Marquita DO Work Phone: [facility] 09-01-2024 14:03-0500 Systolic blood pressure 120 mm[Hg] Edgar Marquita DO Work Phone: [facility] 08-18-2024 13:50-0400 Body mass index (BMI) [Ratio] 43.54 kg/m2 Edgar Marquita DO Work Phone: [facility] 08-18-2024 13:50-0400 Body weight 111.49 kg Edgar Marquita DO Work Phone: [facility] 08-18-2024 13:50-0400 Diastolic blood pressure 74 mm[Hg] Edgar Marquita DO Work Phone: [facility] 08-18-2024 13:50-0400 Systolic blood pressure 118 mm[Hg] Edgar Marquita DO Work Phone: [facility] 08-04-2024 13:30-0400 Body mass index (BMI) [Ratio] 44.37 kg/m2 Marylou CARBAJAL Work Phone: [facility] 08-04-2024 13:30-0400 Body weight 113.63 kg Marylou CARBAJAL Work Phone: [facility] 08-04-2024 13:30-0400 Diastolic blood pressure 78 mm[Hg] Marylou CARBAJAL Work Phone: [facility] 08-04-2024 13:30-0400 Systolic blood pressure 128 mm[Hg] Marylou CARBAJAL Work Phone: [facility] 07-21-2024 11:38-0400 Body mass index (BMI) [Ratio] 43.93 kg/m2 Edgar Marquita DO Work Phone: [facility] 07-21-2024 11:38-0400 Body weight 112.49 kg Edgar Marquita DO Work Phone: [facility] 07-21-2024 11:38-0400 Diastolic blood pressure 72 mm[Hg] Edgar Marquita DO Work Phone: [facility] 07-21-2024 11:38-0400 Systolic blood pressure 128 mm[Hg] Edgar Marquita DO Work Phone: [facility] 07-07-2024 09:10-0400 Body mass index (BMI) [Ratio] 43.72 kg/m2 Edgar Marquita DO Work Phone: [facility] 07-07-2024 09:10-0400 Body weight 111.95 kg Edgar Marquita DO Work Phone: [facility] 07-07-2024 09:10-0400 Diastolic blood pressure 70 mm[Hg] Edgar Marquita DO Work Phone: [facility] 07-07-2024 09:10-0400 Systolic blood pressure 130 mm[Hg] Edgar Marquita DO Work Phone: [facility] 02-13-2024 11:24-0400 Body height 160.02 cm [facility] 02-13-2024 11:24-0400 Body mass index (BMI) [Ratio] 42.3 kg/m2 [facility] 02-13-2024 11:24-0400 Body weight 108.49 kg [facility] 02-13-2024 11:24-0400 Diastolic blood pressure 70 mm[Hg] [facility] 02-13-2024 11:24-0400 Heart rate 69 /min [facility] 02-13-2024 11:24-0400 Respiratory rate 18 /min [facility] 02-13-2024 11:24-0400 SaO2% (BldA) [Mass fraction] 98 % [facility] 04-18-2024 11:24-0400 Systolic blood pressure 118 mm[Hg] [facility] 10-31-2023 15:00-0500 Body height 160.02 cm Sandra Austin Other [facility] Other 10-31-2023 15:00-0500 Body mass index (BMI) [Ratio] 45.41 kg/m2 Sandra Austin Other [facility] Other 10-31-2023 15:00-0500 Body temperature 98.5 [degF] Sandra Austin Other [facility] Other 10-31-2023 15:00-0500 Body weight 116.3 kg Sandra Austin Other [facility] Other 10-31-2023 15:00-0500 Diastolic blood pressure 80 mm[Hg] Sandra Austin Other [facility] Other 10-31-2023 15:00-0500 Respiratory rate 18 /min Sandra Austin Other [facility] Other 10-31-2023 15:00-0500 SaO2% (BldA) [Mass fraction] 98 % Sandra Austin Other [facility] Other 10-31-2023 15:00-0500 Systolic blood pressure 128 mm[Hg] Sandra Austin Other [facility] Other 06-24-2023 14:30-0400 Body height 160.02 cm Sandra Austin Other [facility] Other 06-24-2023 14:30-0400 Body mass index (BMI) [Ratio] 44.87 kg/m2 Sanrda Geovanna Other [facility] Other 06-24-2023 14:30-0400 Body weight 114.9 kg Sandra Pendletonaldo Other [facility] Other 06-24-2023 14:30-0400 Diastolic blood pressure 60 mm[Hg] Sandra Geovanna Other [facility] Other 06-24-2023 14:30-0400 Respiratory rate 18 /min Sandra Geovanna Other [facility] Other 06-24-2023 14:30-0400 SaO2% (BldA) [Mass fraction] 99 % Sandra Pendletonaldo Other [facility] Other 06-24-2023 14:30-0400 Systolic blood pressure 110 mm[Hg] Sandra Pendletonaldo Other [facility] Other 04-15-2023 09:25-0400 Body height 160.02 cm Ramonita Hornmond Other [facility] Other 04-15-2023 09:25-0400 Body mass index (BMI) [Ratio] 41.8 kg/m2 Ramonita Yari Other [facility] Other 04-15-2023 09:25-0400 Body temperature 98.5 [degF] Ramonita Yari Other [facility] Other 04-15-2023 09:25-0400 Body weight 107.05 kg Ramonita Yari Other [facility] Other 04-15-2023 09:25-0400 Respiratory rate 18 /min Ramonita Greenberg Other [facility] Other 04-15-2023 09:25-0400 SaO2% (BldA) [Mass fraction] 97 % Ramonita Greenberg Other [facility] Other 02-21-2023 14:45-0400 Body height 160.02 cm Sandra Austin Other [facility] Other 02-21-2023 14:45-0400 Body mass index (BMI) [Ratio] 41.39 kg/m2 Sandra Austin Other [facility] Other 02-21-2023 14:45-0400 Body weight 106.01 kg Sandra Austin Other [facility] Other 02-21-2023 14:45-0400 Diastolic blood pressure 60 mm[Hg] Sandra Austin Other [facility] Other 02-21-2023 14:45-0400 Respiratory rate 18 /min Sandra Austin Other [facility] Other 02-21-2023 14:45-0400 SaO2% (BldA) [Mass fraction] 98 % Sandra Austin Other [facility] Other 02-21-2023 14:45-0400 Systolic blood pressure 110 mm[Hg] Sandra Austin Other [facility] Other 12-24-2022 14:30-0500 Body height 160.02 cm Sandra Austin Other [facility] Other 12-24-2022 14:30-0500 Body mass index (BMI) [Ratio] 40.83 kg/m2 Sandra Geovanna Other [facility] Other 12-24-2022 14:30-0500 Body weight 104.55 kg Sandra Austin Other [facility] Other 12-24-2022 14:30-0500 Diastolic blood pressure 70 mm[Hg] Sandra Austin Other [facility] Other 12-24-2022 14:30-0500 Respiratory rate 18 /min Sandra Austin Other [facility] Other 12-24-2022 14:30-0500 SaO2% (BldA) [Mass fraction] 99 % Sandra Austin Other [facility] Other 12-24-2022 14:30-0500 Systolic blood pressure 118 mm[Hg] Sandra Austin Other [facility] Other 12-21-2021 16:30-0500 Body height 160.02 cm Sandra Austin Other [facility] Other 12-21-2021 16:30-0500 Body mass index (BMI) [Ratio] 38.58 kg/m2 Sandra Austin Other [facility] Other 12-21-2021 16:30-0500 Body temperature 97.3 [degF] Sandra Austin Other [facility] Other 12-21-2021 16:30-0500 Body weight 98.79 kg Sandra Austin Other [facility] Other 12-21-2021 16:30-0500 Diastolic blood pressure 60 mm[Hg] Sandra Pendletonaldo Other [facility] Other 12-21-2021 16:30-0500 Respiratory rate 18 /min Sandra Pendletonaldo Other [facility] Other 12-21-2021 16:30-0500 SaO2% (BldA) [Mass fraction] 99 % Sandra Pendletonaldo Other [facility] Other 12-21-2021 16:30-0500 Systolic blood pressure 118 mm[Hg] Sandra Pendletonaldo Other [facility] Other Encounters Encounter Date Encounter Type Care Provider Facility Start: 11-05-2024 End: 11-05-2024 care visit Marylou Priest PA Work Phone: [facility] Comment on above: 6 weeks f ollow-up; Anxiety, generalized (CMS/HCC) Start: 11-05-2024 End: 11-05-2024 ambulatory MARYLOU PRIEST Not Available Start: 09-22-2024 End: 09-22-2024 Clinisync Result Encounter Edgar Marquita DO Work Phone: [facility] Unsolicited Start: 09-22-2024 End: 09-22-2024 Clinisync Result Encounter Edgar Marquita DO Work Phone: [facility] Unsolicited Start: 09-21-2024 End: 09-21-2024 Clinisync Result Encounter Edgar Marquita DO Work Phone: [facility] Unsolicited Start: 09-21-2024 End: 09-21-2024 Clinisync Result Encounter Edgar Marquita DO Work Phone: [facility] Unsolicited Start: 09-14-2024 End: 09-14-2024 Bamboo flowsheet Marylou CARBAJAL Work Phone: [facility] Start: 09-14-2024 End: 09-14-2024 Bamboo flowsheet Marylou CARBAJAL Work Phone: [facility] Start: 09-14-2024 End: 09-14-2024 flow sheet Marylou CARBAJAL Work Phone: [facility] Comment on above: 38 weeks gestation o f ; Third trimester Start: 09-14-2024 End: 09-14-2024 ambulatory MARYLOU PRIEST Not Available Start: 09-08-2024 End: 09-08-2024 Bamboo flowsheet Edgar Marquita DO Work Phone: [facility] Start: 09-08-2024 End: 09-08-2024 Bamboo flowsheet Edgar Marquita DO Work Phone: [facility] Start: 09-08-2024 End: 09-08-2024 flow sheet Edgar Marquita DO Work Phone: [facility] Comment on above: 37 weeks gestation o f ; Third trimester Start: 09-08-2024 End: 09-08-2024 ambulatory EDGAR MARQUITA [...] Result Encounter Edgar Marquita DO Work Phone: [facility] External Department Unsolicited Start: 08-29-2024 End: 08-29-2024 Clinisync Result Encounter Edgar Marquita DO Work Phone: [facility] External Department Unsolicited Start: 08-18-2024 End: 08-18-2024 Bamboo flowsheet Edgar Marquita DO Work Phone: [facility] Start: 08-18-2024 End: 08-18-2024 Bamboo flowsheet Edgar Marquita DO Work Phone: [facility] Start: 08-18-2024 End: 08-18-2024 ambulatory EDGAR MARQUITA Not Available Start: 08-18-2024 End: 08-18-2024 flow sheet Degar Marquita DO Work Phone: [facility] Comment on above: 34 weeks gestation o f ; Nausea and vomiting, unspecified vomiting type; Gastroesophageal reflux disease, unspecified whether esophagitis present; Heartburn during in third trimester Start: 08-04-2024 End: 08-04-2024 Bamboo flowsheet Marylou CARBAJAL Work Phone: [facility] Start: 08-04-2024 End: 08-04-2024 Bamboo flowsheet Marylou CARBAJAL Work Phone: [facility] Start: 08-04-2024 End: 08-04-2024 ambulatory MARYLOU PRIEST Not Available Start: 08-04-2024 End: 08-04-2024 flow sheet Marylou CARBAJAL Work Phone: [facility] Comment on above: 32 weeks gestation o f ; Third trimester ; Anxiety, generalized (CMS/HCC) Start: 07-21-2024 End: 07-21-2024 Bamboo flowsheet Edgar Marquita DO Work Phone: [facility] Start: 07-21-2024 End: 07-21-2024 Bamboo flowsheet Edgar Marquita DO Work Phone: [facility] Start: 07-21-2024 End: 07-21-2024 flow sheet Edgar Marquita DO Work Phone: [facility] Comment on above: Third trimester preg amanuel Start: 07-21-2024 End: 07-21-2024 ambulatory EDGAR MARQUITA Not Available Start: 07-07-2024 End: 07-07-2024 Bamboo flowsheet Edgar Marquita DO Work Phone: [facility] Start: 07-07-2024 End: 07-07-2024 Bamboo flowsheet Edgar Marquita DO Work Phone: [facility] Start: 07-07-2024 End: 07-07-2024 flow sheet Edgar Marquita DO Work Phone: [facility] Comment on above: 28 weeks gestation o f ; Abnormal TSH Start: 07-07-2024 End: 07-07-2024 ambulatory EDGAR MARQUITA Not Available Start: 07-02-2024 End: 07-02-2024 Clinisync Result Encounter Edgar Marquita DO Work Phone: [facility] Unsolicited Start: 07-02-2024 End: 07-02-2024 Clinisync Result Encounter Edgar Marquita DO Work Phone: [facility] Unsolicited Start: 2024 End: 2024 ambulatory EDGAR MARQUITA Not Available Start: 05-12-2024 End: 05-12-2024 ambulatory MARYLOU ANJEL Not Available Start: 04-16-2024 End: 04-16-2024 ambulatory EDGAR MARQUITA Not Available Start: 03-17-2024 End: 03-17-2024 ambulatory EDGAR MARQUITA Not Available Start: 02-14-2024 End: 02-14-2024 ambulatory EDGAR MARQUITA Not Available Start: 02-13-2024 End: 02-13-2024 ambulatory [facility] Work Phone: Start: 02-13-2024 End: 02-13-2024 Patient encounter procedure Counts Include [facility] Work Phone: Start: 12-16-2023 Non-patient / Non-visit Counts Include [facility] Physician [facility] [employer] Work Phone: Start: 12-16-2023 End: 12-16-2023 ambulatory EDGAR JUÁREZ Not Available Start: 10-31-2023 End: 10-31-2023 ambulatory Sandra Austin Other [facility] Other Start: 10-31-2023 Office outpatient vi sit 25 minutes Sandra Austin [facility] [place] Start: 07-19-2023 End: 07-19-2023 ambulatory Sandra Austin Other [facility] Other Start: 07-19-2023 Telephone encounter Sandra Austin [facility] [place] Start: 06-24-2023 End: 06-24-2023 ambulatory Sandra Geovanna Other [facility] Other Start: 06-24-2023 Office outpatient vi sit 25 minutes Sandra Austin [facility] [place] Start: 06-04-2023 End: 06-04-2023 ambulatory Sandra Austin Other [facility] Other Start: 06-04-2023 Telephone encounter Sandra Austin [facility] Start: 04-15-2023 End: 04-15-2023 ambulatory Ramonita Greenberg Other [facility] Other Start: 04-15-2023 Office outpatient vi sit 15 minutes Ramonita Greenberg [facility] [place] Start: 04-11-2023 End: 04-11-2023 ambulatory Sandra Austin Other [facility] Other Start: 04-11-2023 Telephone encounter Sandra Austin [facility] Start: 02-21-2023 Office outpatient vi sit 25 minutes Sandra Austin [facility] Start: 02-21-2023 End: 02-22-2023 ambulatory SANDRA AUSTIN [facility] [employer] Other Start: 01-04-2023 End: 01-04-2023 ambulatory Sandra Geoavnna Other [facility] Other Start: 01-04-2023 Telephone encounter Sandra Geovanna Paola [facility] Start: 12-30-2022 Encounter for genera l adult medical examination without abnormal findings SANDRA AUSTIN [facility] Start: 12-27-2022 End: 12-27-2022 ambulatory Sandra Austin Other [facility] Other Start: 12-27-2022 Telephone encounter Sandra [facility] Start: 12-26-2022 End: 12-27-2022 ambulatory SANDRA AUSTIN Facility:[facility] Start: 12-26-2022 End: 12-27-2022 Encounter for general adult medical examination without abnormal findings SANDRA AUSTIN Facility:[facility] Start: 12-24-2022 End: 12-24-2022 ambulatory Sandra Austin Other [facility] Other Start: 12-24-2022 Encounter for genera l adult medical examination without abnormal findings Sandra Austin [facility] Start: 12-24-2022 Periodic preventive med est patient 18-39 yrs Sandra Austin [facility] Start: 12-10-2022 End: 12-10-[address] EDGAR [...] 12-21-2021 End: 12-21-2021 ambulatory Sandra Kaple Other [facility] Other Start: 12-21-2021 Office outpatient ne w 45 minutes Sandra Austin [facility] [place] Procedures Date Procedure Procedure Detail Performing Clinician Start: 09-22-2024 ALL CBC WITH AUTO DIFF Edgar Marquita DO Work Phone: Start: 09-21-2024 [facility] CBC WITH PLATEL ET NO DIFFERENTIAL Edgar Marquita DO Work Phone: Start: 09-14-2024 Urnls dip stick/tabl et rgnt non-auto w/o micrscp Marylou CARBAJAL Work Phone: Start: 09-08-2024 Urnls dip stick/tabl et rgnt non-auto w/o micrscp Edgar Marquita DO Work Phone: Start: 09-01-2024 Urnls dip stick/tabl et rgnt non-auto w/o micrscp Edgar Marquita DO Work Phone: Start: 08-29-2024 ALL THYROID STIM HORMONE Edgar Marquita DO Work Phone: Start: 08-18-2024 Urnls dip stick/tabl et rgnt non-auto w/o micrscp Edgar Marquita DO Work Phone: Start: 08-04-2024 Urnls dip stick/tabl et rgnt non-auto w/o micrscp Marylou CARBAJAL Work Phone: Start: 07-21-2024 Urnls dip stick/tabl et rgnt non-auto w/o micrscp Edgar Marquita DO Work Phone: Start: 07-07-2024 Urnls dip stick/tabl et rgnt non-auto w/o micrscp Edgar Marquita DO Work Phone: Start: 07-02-2024 ALL CBC WITH AUTO DIFF Edgar Marquita DO Work Phone: Start: 09-06-2022 Delivery of Products of Conception, External Approach SANRDA AUSTIN Start: 09-06-2022 Division of Female Perineum, [...] Visit [facility] [address] [place] [id number] Edgar Juárez, DO [address] [place], [place] [id number] [facility] Start: 09-08-2024 End: 09-08-2024 Patient encounter procedure 09/08/2024 10:50 AM EST Routine [facility] [address] [place] [id number] Edgar Juárez, DO [address] [place], [place] [id number] [facility] Start: 09-01-2024 End: 09-01-2025 Strep B DNA probe, amplification Strep B DNA probe, amplification Lab Routine Third trimester Expected: 09/01/2024 (Approximate), Expires: 09/01/2025 [facility] Work Phone: Comment on above: Expected: 09/01/2024 (Approximate), Expires: 09/01/2025 Start: 09-01-2024 End: 09-01-2024 Patient encounter procedure [facility] Comment on above: Arrived Start: 08-18-2024 End: 08-18-2024 Patient encounter procedure 08/18/2024 1:30 PM EDT Routine [facility] [address] [place] [address] Edgar Juárez DO [address], [place] [id number] [facility] Start: 08-18-2024 End: 08-18-2024 Professional / ancillary services management 08/18/2024 1:00 PM EDT Ancillary Procedure [facility] [address] [facility] [place] [address] [facility] Start: 08-04-2024 End: 08-04-2024 Patient encounter procedure 08/04/2024 1:20 PM EDT Routine [facility] [address] [facility] [place] [address] Marylou Priest PA [address] [place], [place] [id number] [facility] Start: 07-21-2024 End: 07-21-2024 Patient encounter procedure [facility] Comment on above: Arrived Start: 07-07-2024 End: 07-07-2025 US biophysical profile w non stress test US biophysical profile w non stress test Imaging Routine 28 weeks gestation of Abnormal TSH Expected: 07/07/2024 (Approximate), Expires: 07/07/2025 [facility] Work Phone: Comment on above: Expected: 07/07/2024 (Approximate), Expires: 07/07/2025 Start: 07-07-2024 End: 07-07-2024 Patient encounter procedure [facility] Comment on above: Arrived Start: 07-07-2024 End: 07-07-2024 Professional / ancillary services management 07/07/2024 8:30 AM EDT Ancillary Procedure [facility] [address] [facility] [place] [address] [facility] Patient Education Low back pain in adults [facility] Work Phone: Immunizations Immunization Date Immunization [facility] diphtheria, tetanus toxoids and pertussis vaccine Edgar Juárez DO Work Phone: [facility] 09-12-2021 pneumococcal conjuga te vaccine, 13 valent Edgar Marquita DO Work Phone: [facility] 08-14-1999 diphtheria, tetanus toxoids and acellular pertussis vaccine, unspecified formulation Edgar Marquita DO Work Phone: [facility] 08-14-1999 haemophilus influenz ae type b vaccine, HbOC conjugate Edgar Marquita DO Work Phone: [facility] 08-14-1999 measles, mumps and rubella virus vaccine Edgar Marquita DO Work Phone: [facility] 08-14-1999 trivalent poliovirus vaccine, live, oral Edgar Marquita DO Work Phone: [facility] 04-27-1998 diphtheria, tetanus toxoids and acellular pertussis vaccine, unspecified formulation Edgar Marquita DO Work Phone: [facility] 04-27-1998 haemophilus influenz ae type b conjugate and Hepatitis B vaccine Edgar Marquita DO Work Phone: [facility] 1997 diphtheria, tetanus toxoids and acellular pertussis vaccine, unspecified formulation Edgar Marquita DO Work Phone: [facility] 1997 haemophilus influenz ae type b vaccine, HbOC conjugate Edgar Marquita DO Work Phone: [facility] 1997 poliovirus vaccine, inactivated Edgar Marquita DO Work Phone: [facility] 1997 diphtheria, tetanus toxoids and acellular pertussis vaccine, unspecified formulation Edgar Marquita DO Work Phone: [facility] 1997 haemophilus influenz ae type b conjugate and Hepatitis B vaccine Edgar Marquita DO Work Phone: [facility] 1997 poliovirus vaccine, inactivated Edgar Marquita DO Work Phone: [facility] 1997 hepatitis B vaccine, pediatric or pediatric/adolescent dosage Edgar Marquita DO Work Phone: [facility] Payers Date Payer Category Payer Private Health Insurance [employer] [id number] 2023 Unknown [employer] [id number] 2023-Present [address] [place] [address] [id number] 2023 Unknown [id number] 2.16.840.1.446884.19 1997 Unknown [id number] 2.16.840.1.757305.3.579.2. 593 1997 Unknown [id number] 2.16.840.1.848704.3.579.2. 593 1997 Unknown [id number] 2.16.840.1.984679.3.579.2. 593 1997 Unknown [id number] 2.16.840.1.676326.3.579.2. 593 1997 Unknown [id number] 2.16.840.1.290410.3.579.2. 593 1997 Unknown [id number] 2.16.840.1.559939.3.579.2. 593 1997 Unknown [id number] 2.16.840.1.580665.3.579.2. 593 1997 Unknown [id number] 2.16.840.1.570302.3.579.2. 593 1997 Unknown [id number] 2.16.840.1.344771.3.579.2. 593 1997 Unknown [id number] 2.16.840.1.215908.3.579.2. 593 1997 Unknown [id number] 2.16.840.1.349556.3.579.2. 593 1997 Unknown [id number] 2.16.840.1.302196.3.579.2. 593 1997 Unknown [id number] 2.16.840.1.821807.3.579.2. 593 1997 Unknown [id number] 2.16.840.1.561012.3.579.2. 593 1997 Unknown [id number] 2.16.840.1.949766.3.579.2. 593 1997 Unknown [id number] 2.16.840.1.351394.3.579.2. 593 1997 Unknown [id number] 2.16.840.1.622295.3.579.2. 593 1997 Unknown [id number] 2.16.840.1.745162.3.579.2. 593 1997 Unknown [id number] 2.16.840.1.203367.3.579.2. 593 1997 Unknown [id number] 2.16.840.1.654642.3.579.2. 593 1997 Unknown [id number] 2.16.840.1.594333.3.579.2. 593 1997 Unknown [id number] 2.16.840.1.681673.3.579.2. 593 1997 Unknown [id number] 2.16.840.1.774224.3.579.2. 593 1997 Unknown [id number] 2.16.840.1.578772.3.579.2. 1258 1997 Unknown [id number] 2.16.840.1.847854.3.579.2. 1258 1997 Unknown [id number] 2.16.840.1.774104.3.579.2. 1258 1997 Unknown [id number] 2.16.840.1.471420.3.579.2. 1258 1997 Unknown [id number] 2.16.840.1.376642.3.579.2. 1258 1997 Unknown [id number] 2.16.840.1.284024.3.579.2. 1258 1997 Unknown [id number] 2.16.840.1.062650.3.579.2. 1258 1997 Unknown [id number] 2.16.840.1.002827.3.579.2. 1258 1997 Unknown [id number] 2.16.840.1.908772.3.579.2. 1258 1997 Unknown [id number] 2.16.840.1.829859.3.579.2. 1258 1997 Unknown [id number] 2.16.840.1.255714.3.579.2. 1258 1997 Unknown [id number] 2.16.840.1.508790.3.579.2. 1258 1997 Unknown [id number] 2.16.840.1.026283.3.579.2. 1258 1997 Unknown [id number] 2.16.840.1.401167.3.579.2. 1259 1957 Medicaid [id number] 2.16.840.1.116781.19 1957 Private Health Insurance [id number] 2.16.840.1.523605.19 Self-pay Self Pay [id number] Unknown [place] [id number] Social History Date Type Detail Facility Start: 08-02-2023 End: 11-25-2023 Sex Assigned At [facility] [email or web address] Other Start: 1995 Sex Assigned At Female [facility] Start: 08-02-2023 [facility] Start: 08-02-2023 Tobacco use and exposure Smokeless tobacco non-user [facility] Start: 07-21-2024 End: 11-05-2024 Alcoholic beverage intake Ex-drinker (finding) [facility] Start: 08-02-2023 End: 11-25-2023 History of Social function [facility] Start: 01-03-2024 [facility] Start: 1995 Sex assigned at Not on file [facility] Clinical Notes 12-21-2021 to 11-05-2024 SOLOMON Turner - 11/05/2024 2:00 PM SOLOMON Hendricks - 09/14/2024 10:10 AM Shweta Mathew, [employer]EL[employer] - 09/08/2024 10:50 AM Ángel Broussard [employer] DEVELOPER - 09/01/2024 1:30 PM SOLOMON Hendricks - 08/04/2024 1:20 PM EDT Note Date & Type Note Facility 11-05-2024 History of Presen t illness Narrative Reason for Appointment: Patient ID: Sofia Zepeda is a 29 y.o. female who presents for Care (PT present today for 6 week post visit. Pt delivered on 09/21/2024 vaginally. ) Patient presents today for Post Follow Up appointment. MEDICATIONS Current Outpatient Medications Medication Instructions cetirizine (ZYRTEC) 10 mg, Daily citalopram (CELEXA) 20 mg, Oral, Daily levothyroxine (SYNTHROID, LEVOXYL) 50 mcg, Daily before breakfast Natural Vitamin D-3 5,000 Units, Daily Oriezflp-Ref-Dj-FA ( 1 + IRON PO) Take by mouth ALLERGIES No Known Allergies PROBLEMS Active Ambulatory Problems Diagnosis Date Noted Pelvic and perineal pain 07/30/2023 PCOS (polycystic ovarian syndrome) 07/30/2023 Right ear pain 07/30/2023 Pre-diabetes 07/30/2023 Hypothyroid (CMS/HCC) 07/30/2023 Gastroesophageal reflux disease 08/18/2024 Nausea and vomiting 08/18/2024 Resolved Ambulatory Problems Diagnosis Date Noted 34 weeks gestation of 08/18/2024 Past Medical History: Diagnosis Date Acid reflux [...] reviewed. Vitals: Estimated body mass index is 43.95 kg/m as calculated from the following: Height as of 08/02/23: 5' 3 . Weight as of 09/14/24: 248 lb 1.9 oz. BP: Patient's last menstrual period was 12/20/2023. ASSESSMENT & PLAN ICD-10-CM 1. 6 weeks follow-up Z39.2 Post Follow Up: Patient is doing well but has complaints of anxiety/anger. Patient presents today for 6 week visit. Patient is s/p Vaginal delivery. Patient states depression but denies suicidal and homicidal ideations. All options were discussed with the patient regarding control and patient desires none at this time. Pt is currently on Celexa 20 mg and would like to discuss a higher dosage. Pt is having anxiety/anger issues adjusting w/a new baby and toddler in the home. Follow Up: Patient is to return for annual unless needed otherwise. Documented by Heide Chase MA on behalf of: SOLOMON Turner documented in this encounter [facility] 09-14-2024 History of Presen t illness Narrative Reason [...] 4 mg, Oral, Every 6 hours PRN pantoprazole (PROTONIX) 20 mg, Oral, Daily before breakfast, Do not crush, chew, or split. Wfzniokk-Qin-Nu-FA ( 1 + IRON PO) Take by [...] reviewed. Vitals: Estimated body mass index is 43.95 kg/m as calculated from the following: Height as of 08/02/23: 5' 3 . Weight as of this encounter: 248 lb 1.9 oz. BP: 130/70 Patient's last menstrual period was 12/20/2023. ASSESSMENT & PLAN ICD-10-CM 1. 38 weeks gestation of Z3A.38 POCT urinalysis dipstick manually resulted 2. Third trimester Z34.93 POCT urinalysis dipstick manually resulted Return OB: Patient presents today for a routine obstetrics appointment. Patient is currently 38w3d . Patient states she is doing well but has complaints of being tired due to current . Patient has verbalizes frequent movement. labor precautions was discussed/given and patient was instructed to perform kick counts three times a day. Orders Placed This Encounter Procedures POCT urinalysis dipstick manually resulted Follow Up: Patient is to return to office in 1 week for routine OB appointment. Documented by Bharati Cedeno LPN on behalf of: SOLOMON Turner documented in this encounter [facility] 09-08-2024 History of Presen t illness Narrative Reason for Appointment: Patient ID: Sofia Zepeda is a 29 y.o. female who presents for No chief complaint on file. Patient presents today for Return OB appointment. MEDICATIONS Current Outpatient Medications Medication Instructions aspirin 81 mg, Daily cetirizine (ZYRTEC) 10 mg, Daily citalopram (CELEXA) 20 mg, Oral, Daily levothyroxine (SYNTHROID, LEVOXYL) 50 mcg, Daily before breakfast magnesium oxide (MAG-OX) 400 mg, Nightly Natural Vitamin D-3 5,000 Units, Daily ondansetron ODT (ZOFRAN-ODT) 4 mg, Oral, Every 6 hours PRN pantoprazole (PROTONIX) 20 mg, Oral, Daily before breakfast, Do not crush, chew, or split. Aggffopp-Yll-Pl-FA ( 1 + IRON PO) Take by [...] SYSTEMS Review of Systems: Review of Systems All other systems reviewed and are negative. OBJECTIVE Objective: Physical Exam Constitutional: Appearance: Normal [...] nursing note reviewed. Exam conducted with a development spec present. Vitals: Estimated body mass index is 44.07 kg/m as calculated from the following: Height as of 08/02/23: 5' 3 . Weight as of this encounter: 248 lb 12.8 oz. BP: 120/70 Patient's last menstrual period was 12/20/2023. ASSESSMENT & PLAN ICD-10-CM 1. 37 weeks gestation of Z3A.37 POCT urinalysis dipstick manually resulted 2. Third trimester Z34.93 POCT urinalysis dipstick manually resulted Patient presents today for a routine obstetrics appointment. Patient is currently 38w3d with a Estimated Date of Delivery: 09/25/24. Patient to return to clinic in 1 week for routine OB. Documented by Justine Mathew LPN on behalf of: Edgar Juárez DO documented in this encounter [facility] 09-01-2024 History of Presen t illness Narrative [...] 4 mg, Oral, Every 6 hours PRN Gluigcrl-Zzx-Cm-FA ( 1 + IRON PO) Take by [...] nursing note reviewed. Exam conducted with a development spec present. Vitals: Estimated body mass index is [...] Edgar Juárez DO documented in this encounter [facility] 08-18-2024 History of Presen t illness [...] before breakfast, Do not crush or chew. Rmljfeyk-Gfx-Td-FA ( 1 + IRON PO) Oral ALLERGIES [...] nursing note reviewed. Exam conducted with a development spec present. Vitals: Estimated body mass index is [...] Edgar Juárez DO documented in this encounter [facility] 08-04-2024 History of Presen t illness [...] before breakfast, Do not crush or chew. Tycaqtzs-Ckt-Ek-FA ( 1 + IRON PO) Oral ALLERGIES [...] of: SOLOMON Turner documented in this encounter [facility] 07-21-2024 History of Presen t illness Narrative Reason [...] before breakfast, Do not crush or chew. Vstesqpt-Wfg-Kw-FA ( 1 + IRON PO) Oral ALLERGIES [...] nursing note reviewed. Exam conducted with a development spec present. Vitals: Estimated body mass index is 43.93 kg/m as calculated from the following: Height as of 08/02/23: 5' 3 . Weight as of this encounter: 248 lb. BP: 128/72 Patient's last menstrual period was 12/20/2023. ASSESSMENT & PLAN ICD-10-CM 1. Third trimester Z34.93 POCT urinalysis dipstick manually resulted Return OB: Patient presents today for a routine obstetrics appointment. Patient is currently 30w4d . Patient states she is doing well but has complaints of being tired due to current . Patient has verbalizes frequent movement. labor precautions was discussed/given and patient was instructed to perform kick counts three times a day. Orders Placed This Encounter Procedures POCT urinalysis dipstick manually resulted Follow Up: Patient is to return to office in 2 week for routine OB appointment. Documented by Keena Broussard LPN on behalf of: Edgar Juárez DO documented in this encounter [facility] 07-07-2024 History of Presen t illness Narrative Reason [...] before breakfast, Do not crush or chew. Egtuyqqi-Bji-Fa-FA ( 1 + IRON PO) Oral ALLERGIES [...] Cancer Paternal Grandfather Arpit Diabetes Paternal Grandfather Arpti SURGICAL HISTORY Past Surgical History: Procedure Laterality [...] nursing note reviewed. Exam conducted with a development spec present. Vitals: Estimated body mass index is 43.72 kg/m as calculated from the following: Height as of 08/02/23: 5' 3 . Weight as of this encounter: 246 lb 12.8 oz. BP: 130/70 Patient's last menstrual period was 12/20/2023. ASSESSMENT & PLAN ICD-10-CM 1. 28 weeks gestation of Z3A.28 POCT urinalysis dipstick manually resulted US biophysical profile w non stress test 2. Abnormal TSH R79.89 POCT urinalysis dipstick manually resulted US biophysical profile w non stress test Return OB: Patient presents today for a routine obstetrics appointment. Patient is currently 28w4d . Patient states she is doing well but has complaints of being tired due to current . Patient has verbalizes frequent movement. labor precautions was discussed/given and patient was instructed to perform kick counts three times a day. Pt given NST/BPP orders to have scheduled Orders Placed This Encounter Procedures US biophysical profile w non stress test POCT urinalysis dipstick manually resulted Follow Up: Patient is to return to office in 2 week for routine OB appointment. Documented by Keena Broussard LPN on behalf of: Edgar Juárez DO documented in this encounter [facility] 10-31-2023 Evaluation note Encounter Date Diagnosis [...] E28.2) She will continue to follow with OB-DYE MACHINE OPERATOR and continue healthy lifestyle changes that she [...] course of antibiotic. Increase fluids and rest. Bydl-sdr-ldrygjx antipyretics as needed. Warning signs and symptoms reviewed with patient today. Patient to go immediately to the ER should she experience any of these. Patient to notify office should her symptoms persist and not improve. Patient verbalizes understanding and agrees to treatment plan. [facility] Other 09-22-2023 Evaluation note* Encounter Date Diagnosis Assessment Notes Treatment Notes Treatment Clinical Notes Jun, Vitamin D insufficiency (ICD-10 - E55.9) [facility] Other 08-28-2023 Evaluation note* Encounter Date Diagnosis [...] E28.2) She will continue to follow with OB-DYE MACHINE OPERATOR and continue healthy lifestyle changes that she [...] ENT today. Specialty notes reviewed as received. [facility] Other 08-08-2023 Evaluation note* Encounter Date Diagnosis Assessment Notes Treatment Notes Treatment Clinical Notes May, Other atopic dermatitis (ICD-10 - L20.89) May, Acute otitis externa of both ears, unspecified type (ICD-10 - H60.503) [facility] Other 06-19-2023 Evaluation note* Encounter Date Diagnosis [...] no improvement in 2 to 3 days [facility] Other 06-15-2023 Evaluation note* Encounter Date Diagnosis Assessment Notes Treatment Notes Treatment Clinical Notes Mar, Anxiety (ICD-10 - F41.9) [facility] Other 04-27-2023 Evaluation note* Encounter Date Diagnosis [...] plan on rechecking this at May appointment. [facility] Other 03-10-2023 Evaluation note* Encounter Date Diagnosis Assessment Notes Treatment Notes Treatment Clinical Notes Dec, Bacterial conjunctivitis (ICD-10 - H10.9) [facility] Other 03-02-2023 Evaluation note* Encounter Date Diagnosis Assessment Notes Treatment Notes Treatment Clinical Notes Dec, Vitamin D insufficiency (ICD-10 - E55.9) Dec, Elevated alkaline phosphatase level (ICD-10 - R74.8) Dec, Other specified hypothyroidism (ICD-10 - E03.8) [facility] Other 02-27-2023 Evaluation note* Encounter Date Diagnosis [...] ordered. Follow routinely with eye doctor, dentist, DYE MACHINE OPERATOR. Patient is advised to work on healthy diet choices and appropriate servings, weight control, regular exercise as directed, reduced fat intake, and salt avoidance. Patient voiced understanding of this and agrees to this plan. Nov, PCOS (polycystic ovarian syndrome) (ICD-10 - E28.2) Routine lab work ordered. She will continue to follow with OB-DYE MACHINE OPERATOR and continue healthy lifestyle changes that she [...] homicidal ideations. Started on Celexa by her DYE MACHINE OPERATOR. Very stable on Celexa 20 mg daily. [...] her ears still persist after starting this. [facility] Other 02-24-2022 Evaluation note* Encounter Date Diagnosis Assessment Notes Treatment Notes Treatment Clinical Notes Nov, Prediabetes (ICD-10 - R73.03) She was recently dx with prediabetes and was started on Metformin 500 mg BID 2 weeks ago by her OB-DYE MACHINE OPERATOR. She would like to follow with our [...] - E28.2) She is following with her OB-DYE MACHINE OPERATOR for her PCOS and is currently on Metformin 500 mg BID and is taking medication to help her get . She will continue to follow with OB-DYE MACHINE OPERATOR and continue healthy lifestyle changes that she [...] of fatigue, difficulty losing weight by her OB-DYE MACHINE OPERATOR. She would like to start following with [...] of this and agrees to this plan. [facility] Other Evaluation note* Diagnosis Onset Date Resolution Status 8 weeks gestation of acute Low back pain acute [facility] Work Phone: Evaluation note* Diagnosis [...] state, incidental [facility] Diagnosis 38 weeks gestation of Third trimester state, incidental [facility] Diagnosis 37 weeks gestation of Third trimester state, incidental [facility] Diagnosis 28 weeks gestation of Abnormal TSH [facility] Diagnosis Third trimester state, incidental [facility] Diagnosis 6 weeks follow-up Anxiety, generalized (CMS/HCC) [facility] N[facility]ative - Reported* Type Description Date Medical History PCOS Medical History THYROID ISSUES Surgical History THIRD NIPPLE REMOVED Surgical History Colonoscopy-normal 2018 [facility] Other Summary Purpose Family History No Family [...] Right ear pain (H92. 01) Referral Organization [facility] Family Gonzales Hernandez Referring Provider First Name [...] if Omeprazole could be increased in dosage. Reason Comments Care PT present today for 6 week post visit. Pt delivered on 09/21/2024 vaginally. INFORMATION SOURCE (unrecogn ized section and content) DATE CREATED AUTHOR 02/25/2023 [facility] DATE CREATED AUTHOR AUTHOR'S ORGANIZ ATION 11/10/2024 [facility] EPIC Care Teams (unrecognized [...] February 13, 2024 End: February 13, 2024 Director Of Architecture Relationship Specialty Start Date End Date Sandra Austin NP [address] [place] [address] PCP - General 07/19/23 Director Of Architecture Relationship Specialty Start Date End Date Sandra Austin NP [address] [place] [phone] PCP - General 07/19/23 Director Of Architecture Relationship Specialty Start Date End Date Sandra Austin NP [address] [place] [address] PCP - General 07/19/23 Director Of Architecture Relationship Specialty Start Date End Date Sandra Austin NP [address] [place] [address] PCP - General 07/19/23 Director Of Architecture Relationship Specialty Start Date End Date Sandra Austin WOOD REPATCHER [address] [place] [address] PCP - General 07/19/23 Director Of Architecture Relationship Specialty Start Date End Date Sandra Austin NP [address] [place] [phone] PCP - General 07/19/23 Director Of Architecture Relationship Specialty Start Date End Date Sandra Austin NP [address] [place] [phone] PCP - General 07/19/23 Director Of Architecture Relationship Specialty Start Date End Date Sandra Austin WOOD REPATCHER [address] [place] [phone] PCP - General 07/19/23 Director Of Architecture Relationship Specialty Start Date End Date Sandra Austin WOOD REPATCHER [address] [place] [phone] PCP - General 07/19/23 Director Of Architecture Relationship Specialty Start Date End Date Sandra Austin WOOD REPATCHER [address] [place] [address] PCP - General 07/19/23 Director Of Architecture Relationship Specialty Start Date End Date Sandra Austin WOOD REPATCHER [address] [place] [phone] PCP - General 07/19/23 Director Of Architecture Relationship Specialty Start Date End Date Sandra Austin, WOOD REPATCHER [address] [facility] [place] [address] PCP - General 07/19/23 Director Of Architecture Relationship Specialty Start Date End Date Sandra Austin WOOD REPATCHER [address] [facility] [place] [phone] PCP - General 07/19/23 Goals (unrecognized section [...] BE BASED ON THE PRIMARY CLINICAL RECORDS. [facility] [employer] provides no warranty or guarantee of the accuracy or completeness of information in this document.
== END 2024-12-17 20:21 | disposition home or self-care (01) ==
LOC: LAB 20:20
PROVIDERS: Visit Provider Obstetrics & Gynecology
DX: Z01.419 Encounter for gynecological examination (general) (routine) without abnormal findings (principal)
CPT/HCPCS: 88175

== ENCOUNTER 2025-03-18 12:16 | Outpatient (OUT) | payer OTHER, SELFPAY ==
--- OUTSIDE RECORDS SUMMARY | 2024-12-17 09:26 | XMS_ITS ---
Author Name Auto Generated Organization [place] Care Team Providers Care Safety Manager Name Role Phone AGUS SANTO Attending Unavailable AGUS SANTO Attending Unavailable ENDY PRIEST Attending Unavailable AGUS SANTO Attending Unavailable AGUS SANTO Attending Unavailable AGUS SANTO Attending Unavailable ENDY PRIEST Attending Unavailable AGUS SANTO Attending Unavailable AGUS SANTO Attending Unavailable AGUS SANTO Attending Unavailable ENDY PRIEST Attending Unavailable ENDY PRIEST Attending Unavailable PROBLEMS No Problem Records Found PROCEDURES No Procedure Records Found RESULTS No Result Records Found ALLERGIES No Allergies Records Found ENCOUNTERS ADMIT/DISCHARGE ACCOUNT NUMBER ADMITTING ENCOUNTER CLASS LOCATION SOURCE 12/17/2024/ 5 [id number] Ambulatory Building:[facility] 11/05/2024/ 5 [id number] Ambulatory Building:[facility] 09/14/2024/ 4 [id number] Ambulatory Building:[facility] 09/08/2024/ 4 [id number] Ambulatory Building:[facility] 09/01/2024/ 4 [id number] Ambulatory Building:[facility] 08/18/2024/ 4 [id number] Ambulatory Building:[facility] 08/04/2024/ 4 [id number] Ambulatory Building:[facility] 07/21/2024/ 4 [id number] Ambulatory Building:[facility] 07/07/2024/ 4 [id number] Ambulatory Building:[facility] 06/09/2024/ 4 [id number] Ambulatory Building:[facility] 05/12/2024/ 4 [id number] Ambulatory Building:[facility] 04/16/2024/ 4 [id number] Ambulatory Building:[facility] PAYERS ENCOUNTER GUARANTOR PAYER SUBSCRIBER SOURCE 12/17/2024 SOFIA Hernandez ERFDOB: [id number] [place] [address]Htc: () Primary Insurance:MEDICAL MUTUALPolicy Number: [id number] e Date:2023-09-27 IZABELA ERFDOB: [id number] [place] [address] [facility] EPIC 11/05/2024 SOFIA Hernandez ERFDOB: [id number] [place] [address]Pzd: (HP) Primary Insurance:MEDICAL MUTUALPolicy Number: [id number] e Date:2023-09-27 IZABELA ERFDOB: [id number] [place] [address] [facility] EPIC 09/14/2024 SOFIA Hernandez ERFDOB: [id number] [place] [address]Byr: (HP) Primary Insurance:MEDICAL MUTUALPolicy Number: [id number] e Date:2023-09-27 IZABELA ERFDOB: [id number] [place] [address] [facility] 09/08/2024 SOFIA Hernandez ERFDOB: [id number] [place] [address]Tvr: (HP) Primary Insurance:MEDICAL MUTUALPolicy Number: [id number] e Date:2023-09-27 IZABELA ERFDOB: [id number] [place] [address] [facility] 09/01/2024 SOFIA Hernandez ERFDOB: [id number] [place] [address]Rjh: (HP) Primary Insurance:MEDICAL MUTUALPolicy Number: [id number] e Date:2023-09-27 IZABELA ERFDOB: [id number] [place] [address] [facility]IC 08/18/2024 SOFIA Hernandez ERFDOB: [id number] [place] [address]Lvu: (HP) Primary Insurance:MEDICAL MUTUALPolicy Number: [id number] e Date:2023-09-27 IZABELA ERFDOB: [id number] [place] [address] [facility] EPIC 08/04/2024 SOFIA L ERFDOB: [id number] [place] [address]Qma: (HP) Primary Insurance:MEDICAL MUTUALPolicy Number: [id number] e Date:2023-09-27 IZABELA ERFDOB: [id number] [place] [address] [facility] EPIC 07/21/2024 SOFIA L ERFDOB: [id number] [place] [address]Ipg: () Primary Insurance:MEDICAL MUTUALPolicy Number: [id number] e Date:2023-09-27 IZABELA ERFDOB: [id number] [place] [address] [facility] EPIC 07/07/2024 SOFIA L ERFDOB: [id number] [place] [address]Wqu: () Primary Insurance:MEDICAL MUTUALPolicy Number: [id number] e Date:2023-09-27 IZABELA ERFDOB: [id number] [place] [address] [facility] EPIC 2024 SOFIA L ERFDOB: [id number] [place] [address]Qig: () Primary Insurance:MEDICAL MUTUALPolicy Number: [id number] e Date:2023-09-27 IZABELA ERFDOB: [id number] [place] [address] [facility] EP[facility] 05/12/2024 SOFIA L ERFDOB: [id number] [place] [address]Huz: () Primary Insurance:MEDICAL MUTUALPolicy Number: [id number] e Date:2023-09-27 IZABELA ERFDOB: [id number] [place] [address] [facility] 04/16/2024 SOFIA Hernandez ERFDOB: [id number] [place] [address]Fbo: () Primary Insurance:MEDICAL MUTUALPolicy Number: [id number] e Date:2023-09-27 IZABELA ERFDOB: [id number] [place] [address] [facility]
--- OUTSIDE RECORDS SUMMARY | 2025-03-18 12:23 | XMS_ITS | Encounter Summary ---
Author Organization [facility] Address [address] [place] [address] Care Team Providers Care Dry Chain Operator Name Role Phone Sandra Austin RN PALLIATIVE CARE Primary Care Provider [phone] Encounter Details Date Type Department Care Team (Late st Contact Info) Description 05/13/2024 Abstract [facility] [address] [place] [address] Bharati Cedeno LPN [address] [place] [address] Social History Tobacco Use Types Packs/Day Years Used Date Smoking Tobacco: Never Smokeless Tobacco: Never Alcohol Use Standard Drinks/Week Comments Not Currently 0 (1 standard drink = 0.6 oz pur e alcohol) Comments Yes Sex and Gender Information Value Date Recorded Sex Assigned at Not on file Legal Sex Female 7:47 PM EDT Gender Identity Not on file Sexual Orientation Not on file documented as of this encounter Plan of Treatment Upcoming Encounters Date Type Department Care Team (Late st Contact Info) Description 12/21/2025 9:00 AM EST Office Visit [facility] [address] [place] [address] Edgar Juárez [address] [place], [place] [phone] documented as of this encounter Visit Diagnoses Not on filedocumented in this encounter Care Teams Dry Chain Operator Relationship Specialty Start Date End Date Sandra Austin, RN PALLIATIVE CARE PCP - General 07/19/23 documented as of this encounter
--- OUTSIDE RECORDS SUMMARY | 2025-03-18 12:23 | XMS_ITS | Encounter Summary ---
Author Organization [facility] Address [address] [facility] [place] [address] Care Team Providers Care Blunger Machine Operator Name Role Phone Alfredito Austin NP Primary Care Provider Encounter Details Date Type Department Care Team (Late st Contact Info) Description 03/16/2024 Clinisync Result Encounter [facility] External Department Unsolicited Agus Juárez, [address] [place] [address] Social History Tobacco Use Types Packs/Day Years [...] 12/21/2025 9:00 AM EST Office Visit [facility] [address] [place] [phone] Agus Juárez DO [address] [place] [address] [place] [address] documented as of this encounter Procedures Procedure Name Priority Date/Time Associated Diagnosis Comments US OB L= 14 WEEKS FETUS 03/16/2024 3:31 PM EDT documented in this encounter Results * US OB L= 14 WEEKS FETUS (03/16/2024 3:31 PM EDT) Anatomical Region Laterality Modality Other 03/16/2024 3:31 PM EDT Narrative 03/16/2024 3:34 PM EDT [address] [address] Ultrasound Report Signed Patient: ZELDA ZEPEDA MR#: [id number] : 1995 Acct:[id number] Age/Sex: 28 / F ADM Date: 03/16/24 Loc: US Attending Dr: Agus Juárez D.O. Ordering Physician: Agus Juárez D.O. Date of Service: 03/16/24 Procedure(s): US OB <= 14 weeks fetus Accession Number(s): [id number] cc: Agus Juárez D.O.; ALFREDITO [place] [address] Patient Name: ZELDA ZEPEDA MRN: [id number] date: 1995 Sex: F Assigned Patient Location: US Current Patient Location: US Accession/Order Number: [id number] Exam Date: 03/16/2024 14:25 Report Date: 03/16/2024 15:31 At the request of: AGUS JUÁREZ Procedure: US OB <= 14 weeks fetus EXAMINATION: US OB <= 14 weeks fetus HISTORY: with uncertain viability O36.80XO COMPARISON: Ultrasound OB transvaginal 02/14/2024 FINDINGS: GESTATIONAL SAC: Present and normal appearing. YOLK SAC: Absent POLE: Present and normal appearing. CARDIAC: 153 bpm UTERUS: Normal size and appearance. OVARIES: Right: Normal. Left: Normal. CERVIX: 5.9 cm in length and closed. CUL-DE-SAC: Normal. OTHER: None. AGE BY LMP: 12 weeks 3 days HERNANDO BY LMP: 09/25/2024 AGE BY US CRL: 12 weeks 6 days HERNANDO BY US CRL: 09/22/2024 US/US OB <= 14 weeks fetus IMPRESSION: 1. Single live intrauterine 12 weeks 6 days by today's ultrasound. 2. No suspicious findings. Electronically authenticated by: CISCO QUINN Date: 03/16/2024 15:31 Dictated By: Cisco Quinn M.D. Signed By: 03/16/24 1534 DD/ 1531 TD/TT: Branch Operations Specialist: Procedure Note Radiology, Radiologist, MD - 03/16/2024 [place] [address] Ultrasound Report Signed Patient: ZELDA ZEPEDA LMR#: [id number] : 1995Acct:[id number] Age/Sex: FADM Date: 03/16/24 Loc: US Attending Dr: Agus Juárez D.O. Ordering Physician: Agus Juárez D.O. Date of Service: 03/16/24 Procedure(s): US OB <= 14 weeks fetus Accession Number(s): [id number] cc: Agus Juárez D.O.; ALFREDITO [place] [address] [address] Patient Name: ZELDA ZEPEDA MRN: [facility]:[id number] date: 1995 Sex: F Assigned Patient Location: US Current Patient Location: US Accession/Order Number: [id number] Exam Date: 03/16/2024 14:25 Report Date: 03/16/2024 15:31 At the request of: AGUS JUÁREZ Procedure: US OB <= 14 weeks fetus EXAMINATION: US OB <= 14 weeks fetus HISTORY: with uncertain viability O36.80XO COMPARISON: Ultrasound OB transvaginal 02/14/2024 FINDINGS: GESTATIONAL SAC: Present and normal appearing. YOLK SAC: Absent POLE: Present and normal appearing. CARDIAC: 153 bpm UTERUS: Normal size and appearance. OVARIES: Right: Normal. Left: Normal. CERVIX: 5.9 cm in length and closed. CUL-DE-SAC: Normal. OTHER: None. AGE BY LMP: 12 weeks 3 days HERNANDO BY LMP: 09/25/2024 AGE BY US CRL: 12 weeks 6 days HERNANDO BY US CRL: 09/22/2024 US/US OB <= 14 weeks fetus IMPRESSION: 1. Single live intrauterine 12 weeks 6 days by ron. 2. No suspicious findings. Electronically authenticated by: CISCO QUINN Date: 03/16/2024 15:31 Dictated By: Cisco Quinn M.D. Signed By:03/16/24 1534 DD/ 153 TD/TT: Branch Operations Specialist: us Agus Marquita DO [facility] Final Result documented in this encounter Visit Diagnoses Not on filedocumented in this encounter Care Teams Blunger Machine Operator Relationship Specialty Start Date End Date Alfredito Austin NP PCP - General 07/19/23 documented as of this encounter
--- OUTSIDE RECORDS SUMMARY | 2025-03-18 12:23 | XMS_ITS | Encounter Summary ---
Author Organization [facility] Address [address] [place] [address] Care Team Providers Care Nursing Program Chair Name Role Phone Alfredito Austin NP Primary Care Provider Encounter Details Date Type Department Care Team (Late st Contact Info) Description 08/19/2024 Clinisync Result Encounter [facility] External Department Unsolicited Agus Juárez, [address] [place] [address] Social History Tobacco Use Types Packs/Day Years [...] Visit [facility] OB [address] [place] [address] Agus Juárez DO [address] [place] [address] [place] [address] documented as of this encounter Procedures Procedure Name Priority Date/Time Associated Diagnosis Comments US OB BPP W NON-STRESS 08/19/2024 4:18 PM EDT documented in this encounter Results * US OB BPP W NON-STRESS (08/19/2024 4:18 PM EDT) Anatomical Region Laterality Modality Other 08/19/2024 4:18 PM EDT Narrative 08/19/2024 4:20 [place] [address] Ultrasound Report Signed Patient: ZELDA ZEPEDA MR#: [id number] : 1995 Acct:[id number] Age/Sex: 29 / F ADM Date: 08/19/24 Loc: US Attending Dr: Agus Juárez D.O. Ordering Physician: Agus Juárez D.O. Date of Service: 08/19/24 Procedure(s): US OB BPP w non-stress Accession Number(s): [id number] cc: Agus Juárez D.O.; ALFREDITO AUSTIN [place] [address] Patient Name: ZELDA ZEPEDA MRN: [facility]:[id number] date: 1995 Sex: F Assigned Patient Location: [facility] Current Patient Location: Accession/Order Number: [id number] Exam Date: 08/19/2024 14:05 Report Date: 08/19/2024 16:18 At the request of: AGUS JUÁREZ Procedure: US OB BPP w non-stress EXAMINATION: US OB BPP w non-stress HISTORY:Abnormal TSH R79.89 COMPARISON: No relevant comparison available. TECHNIQUE: Ultrasound biophysical profile was performed in the radiology department. BREATHING MOVEMENTS: 2 GROSS BODY MOVEMENTS: 2 TONE: 2 QUALITATIVE AMNIOTIC FLUID VOLUME: 2 PRESENTATION: CEPHALIC HEART RATE: 135 bpm AMNIOTIC FLUID VOLUME: 18.37 cm GESTATIONAL AGE: 34 weeks 5 days US/US OB BPP w non-stress IMPRESSION: Total biophysical profile score: 8 Electronically authenticated by: CISCO QUINN Date: 08/19/2024 16:18 Dictated By: Cisco Quinn M.D. Signed By: 08/19/24 1620 DD/ 17 TD/TT: Hospice Art Therapist: Procedure Note Radiology, Radiologist, - 08/19/2024 [place] [address] Ultrasound Report Signed Patient: ZELDA ZEPEDA LMR#: [id number] : 1995Acct:[id number] Age/Sex: 29 / FADM Date: 08/19/24 Loc: US Attending Dr: Agus Juárez D.O. Ordering Physician: Agus Juárez D.O. Date of Service: 08/19/24 Procedure(s): US OB BPP w non-stress Accession Number(s): [id number] cc: Agus Juárez D.O.; ALFREDITO AUSTIN [place] [id number] Patient Name: ZELDA ZEPEDA MRN: [facility]:[id number] date: 1995 Sex: F Assigned Patient Location: [facility] Current Patient Location: Accession/Order Number: [id number] Exam Date: 08/19/2024 14:05 Report Date: 08/19/2024 16:18 At the request of: AGUS JUÁREZ Procedure: US OB BPP w non-stress EXAMINATION: US OB BPP w non-stress HISTORY:Abnormal TSH R79.89 COMPARISON: No relevant comparison available. TECHNIQUE: Ultrasound biophysical profile was performed in the radiology department. BREATHING MOVEMENTS: 2 GROSS BODY MOVEMENTS: 2 TONE: 2 QUALITATIVE AMNIOTIC FLUID VOLUME: 2 PRESENTATION: CEPHALIC HEART RATE: 135 bpm AMNIOTIC FLUID VOLUME: 18.37 cm GESTATIONAL AGE: 34 weeks 5 days US/US OB BPP w non-stress IMPRESSION: Total biophysical profile score: 8 Electronically authenticated by: CISCO QUINN Date: 08/19/2024 16:18 Dictated By: Cisco Quinn M.D. Signed By:08/19/241619 DD/ 17 TD/TT: Hospice Art Therapist: us Agus Juárez DO [facility] Final Result documented in this encounter Visit Diagnoses Not on filedocumented in this encounter Care Teams Nursing Program Chair Relationship Specialty Start Date End Date Alfredito Austin, NAT INSTRUCTOR PCP - General 07/19/23 documented as of this encounter
--- OUTSIDE RECORDS SUMMARY | 2025-03-18 12:23 | XMS_ITS | Encounter Summary ---
Author Organization [facility] Address [address] [facility] [address] Care Team Providers Care Steam Box Tender Name Role Phone Alfredito Austin NP Primary Care Provider Encounter Details Date Type Department Care Team (Late st Contact Info) Description 08/27/2024 Clinisync Result Encounter [facility] External Department Unsolicited Agus Juárez, [address] [place] [address] Social History Tobacco Use Types Packs/Day Years [...] Visit [facility] BCP OB [address] [place] [address] Agus Juárez DO [address] [place] [address] [place] [address] documented as of this encounter Procedures Procedure Name Priority Date/Time Associated Diagnosis Comments US OB BPP W NON-STRESS 08/27/2024 4:27 AM EDT documented in this encounter Results * US OB BPP W NON-STRESS (08/27/2024 4:27 AM EDT) Anatomical Region Laterality Modality Other 08/27/2024 4:27 AM EDT Narrative 08/27/2024 4:30 [place] [address] Ultrasound Report Signed Patient: ZELDA ZEPEDA MR#: [id number] : 1995 Acct:[id number] Age/Sex: 29 / F ADM Date: 08/26/24 Loc: US Attending Dr: Agus Juárez D.O. Ordering Physician: Agus Juárez D.O. Date of Service: 08/26/24 Procedure(s): US OB BPP w non-stress Accession Number(s): [id number] cc: Agus Juárez D.O.; ALFREDITO AUSTIN [place] [address] Patient Name: ZELDA ZEPEDA MRN: [facility]:[id number] date: 1995 Sex: F Assigned Patient Location: US Current Patient Location: Accession/Order Number: [id number] Exam Date: 08/26/2024 15:05 Report Date: 08/27/2024 04:27 At the request of: AGUS JUÁREZ Procedure: US OB BPP w non-stress EXAMINATION: US OB BPP w non-stress HISTORY:Abnormal TSH R79.89 COMPARISON: Ultrasound OB biophysical 08/19/2024 TECHNIQUE: Ultrasound biophysical profile was performed in the radiology department. BREATHING MOVEMENTS: 2 GROSS BODY MOVEMENTS: 2 TONE: 2 QUALITATIVE AMNIOTIC FLUID VOLUME: 2 PRESENTATION: CEPHALIC HEART RATE: 150 bpm AMNIOTIC FLUID VOLUME: 17.88 cm GESTATIONAL AGE: 35 weeks 5 days US/US OB BPP w non-stress IMPRESSION: Total biophysical profile score: 8 Electronically authenticated by: CISCO QUINN Date: 08/27/2024 04:27 Dictated By: Cisco Quinn M.D. Signed By: 08/27/24 0430 DD/ 6 TD/TT: Hr Payroll Coordinator: Procedure Note Radiology, Radiologist, - 08/27/2024 The [place] [id number] Ultrasound Report Signed Patient: ZELDA ZEPEDA LMR#: [id number] : 1995Acct:[id number] Age/Sex: 29 / FADM Date: 08/26/24 Loc: US Attending Dr: Agus Juárez D.O. Ordering Physician: Agus Juárez D.O. Date of Service: 08/26/24 Procedure(s): US OB BPP w non-stress Accession Number(s): [id number] cc: Agus Juárez D.O.; ALFREDITO AUSTIN [place] [id number] Patient Name: ZELDA ZEPEDA MRN: [facility]:[id number] date: 1995 Sex: F Assigned Patient Location: US Current Patient Location: Accession/Order Number: [id number] Exam Date: 08/26/2024 15:05 Report Date: 08/27/2024 04:27 At the request of: AGUS JUÁREZ Procedure: US OB BPP w non-stress EXAMINATION: US OB BPP w non-stress HISTORY:Abnormal TSH R79.89 COMPARISON: Ultrasound OB biophysical 08/19/2024 TECHNIQUE: Ultrasound biophysical profile was performed in the radiology department. BREATHING MOVEMENTS: 2 GROSS BODY MOVEMENTS: 2 TONE: 2 QUALITATIVE AMNIOTIC FLUID VOLUME: 2 PRESENTATION: CEPHALIC HEART RATE: 150 bpm AMNIOTIC FLUID VOLUME: 17.88 cm GESTATIONAL AGE: 35 weeks 5 days US/US OB BPP w non-stress IMPRESSION: Total biophysical profile score: 8 Electronically authenticated by: CISCO QUINN Date: 08/27/2024 04:27 Dictated By: Cisco Quinn M.D. Signed By:08/27/240 DD/ 6 TD/TT: Hr Payroll Coordinator: us Agus Juárez DO [facility] Final Result documented in this encounter Visit Diagnoses Not on filedocumented in this encounter Care Teams Steam Box Tender Relationship Specialty Start Date End Date Alfredito Austin, DIE TRIMMER PCP - General 07/19/23 documented as of this encounter
--- OUTSIDE RECORDS SUMMARY | 2025-03-18 12:23 | XMS_ITS | Encounter Summary ---
Author Organization [facility] Address [address] [place] [address] Care Team Providers Care Information Technology Auditor Name Role Phone Sandra Austin NP Primary Care Provider Encounter Details Date Type Department Care Team (Late st Contact Info) Description 09/10/2024 Clinisync Result Encounter [facility]OMS External Department Unsolicited Agus Juárez, [address] [place] [address] Social History Tobacco Use Types Packs/Day Years [...] Visit [facility] BCP OB [address] [place] [address] Agus Juárez DO [address] [place] [address] [place] [address] documented as of this encounter Procedures Procedure Name Priority Date/Time Associated Diagnosis Comments US OB BPP W NON-STRESS 09/10/2024 6:38 AM EST documented in this encounter Results * US OB BPP W NON-STRESS (09/10/2024 6:38 AM EST) Anatomical Region Laterality Modality Other 09/10/2024 6:38 AM EST Narrative 09/10/2024 6:41 [place] [address] Ultrasound Report Signed Patient: ZELDA ZEPEDA MR#: [id number] : 1995 Acct:[id number] Age/Sex: 29 / F ADM Date: 09/09/24 Loc: US Attending Dr: Agus Juárez D.O. Ordering Physician: Agus Juárez D.O. Date of Service: 09/09/24 Procedure(s): US OB BPP w non-stress Accession Number(s): [id number] cc: Agus Juárez D.O.; Physician,Non-Staff M.Tyler The [place] [address] Patient Name: ZELDA ZEPEDA MRN: [facility]:[id number] date: 1995 Sex: F Assigned Patient Location: [facility] Current Patient Location: Accession/Order Number: [id number] Exam Date: 09/09/2024 15:45 Report Date: 09/10/2024 06:38 At the request of: AGUS JUÁREZ Procedure: US OB BPP w non-stress EXAMINATION: US OB BPP w non-stress HISTORY:abnormal thyroid COMPARISON: Ultrasound OB biophysical 09/02/2024 TECHNIQUE: Ultrasound biophysical profile was performed in the radiology department. BREATHING MOVEMENTS: 2 GROSS BODY MOVEMENTS: 2 TONE: 2 QUALITATIVE AMNIOTIC FLUID VOLUME: 2 PRESENTATION: CEPHALIC HEART RATE: 129.81 bpm AMNIOTIC FLUID VOLUME: 19.92 cm GESTATIONAL AGE: 37 weeks 5 days US/US OB BPP w non-stress IMPRESSION: Total biophysical profile score: 8 Electronically authenticated by: CISCO QUINN Date: 09/10/2024 06:38 Dictated By: Cisco Quinn M.D. Signed By: 09/10/2441 DD/ 7 TD/TT: [facility] Office Supervisor: Procedure Note Radiology, Radiologist, MD - 09/10/2024 [place] [address] Ultrasound Report Signed Patient: ZELDA ZEPEDA LMR#: [id number] : 1995Acct:[id number] Age/Sex: 29 / FADM Date: 09/09/24 Loc: US Attending Dr: Agus Juárez D.O. Ordering Physician: Agus Juárez D.O. Date of Service: 09/09/24 Procedure(s): US OB BPP w non-stress Accession Number(s): [id number] cc: Agus Juárez D.O.; Physician,Non-Staff Jone The [place] [id number] Patient Name: ZELDA ZEPEDA MRN: [facility]:[id number] date: 1995 Sex: F Assigned Patient Location: [facility] Current Patient Location: Accession/Order Number: [id number] Exam Date: 09/09/2024 15:45 Report Date: 09/10/2024 06:38 At the request of: AGUS JUÁREZ Procedure: US OB BPP w non-stress EXAMINATION: US OB BPP w non-stress HISTORY:abnormal thyroid COMPARISON: Ultrasound OB biophysical 09/02/2024 TECHNIQUE: Ultrasound biophysical profile was performed in the radiology department. BREATHING MOVEMENTS: 2 GROSS BODY MOVEMENTS: 2 TONE: 2 QUALITATIVE AMNIOTIC FLUID VOLUME: 2 PRESENTATION: CEPHALIC HEART RATE: 129.81 bpm AMNIOTIC FLUID VOLUME: 19.92 cm GESTATIONAL AGE: 37 weeks 5 days US/US OB BPP w non-stress IMPRESSION: Total biophysical profile score: 8 Electronically authenticated by: CISCO QUINN Date: 09/10/2024 06:38 Dictated By: Cisco Quinn M.D. Signed By:09/10/2441 DD/ 7 TD/TT: [facility] Office Supervisor: us Agus Juárez DO [facility] Final Result documented in this encounter Visit Diagnoses Not on filedocumented in this encounter Care Teams Information Technology Auditor Relationship Specialty Start Date End Date Sandra Austin, EMPLOYMENT SERVICES DIRECTOR PCP - General 07/19/23 documented as of this encounter
--- OUTSIDE RECORDS SUMMARY | 2025-03-18 12:23 | XMS_ITS | Encounter Summary ---
Author Organization [facility] Address [address] [facility] [place] [address] Care Team Providers Care Geothermal Plant Manager Name Role Phone Sandra Austin AQUATICS INSTRUCTOR Primary Care Provider Encounter Details Date Type Department Care Team (Late Contact Info) Description 09/01/2024 Abstract [facility] [address] [place] [address] Edgar Juárez DO [address] [place], [place] [address] Social History Tobacco Use Types Packs/Day Years [...] 12/21/2025 9:00 AM EST Office Visit [facility] [address] [place] [address] Edgar Juárez DO [address] [place], [place] [address] documented as of this encounter Visit Diagnoses Not on filedocumented in this encounter Care Teams Geothermal Plant Manager Relationship Specialty Start Date End Date Sandra Austin AQUATICS INSTRUCTOR PCP - General 07/19/23 documented as of this encounter
--- OUTSIDE RECORDS SUMMARY | 2025-03-18 12:23 | XMS_ITS | Encounter Summary ---
Author Organization [facility] Address [address] [facility] [place] [address] Care Team Providers Care Boxing Promoter Name Role Phone Alfredito Austin NP Primary Care Provider [phone] Encounter Details Date Type Department Care Team (Late st Contact Info) Description 07/07/2024 Clinisync Result Encounter NOM[facility] External Department Unsolicited Agus Juárez DO [facility] [place] [address] Social History Tobacco Use Types Packs/Day Years [...] Visit [facility] BCP OB [address] [place] [address] Agus Juárez DO [address] [place] [address] [place] [address] documented as of this encounter Procedures Procedure Name Priority Date/Time Associated Diagnosis Comments OB GROWTH 07/07/2024 12:45 PM EDT documented in this encounter Results * US OB GROWTH (07/07/2024 12:45 PM EDT) Anatomical Region Laterality Modality Other 07/07/2024 12:4 5 PM EDT Narrative 07/07/2024 12:48 PM EDT [address] [address] Ultrasound Report Signed Patient: ZELDA ZEPEDA MR#: [id number] : 1995 Acct:[id number] Age/Sex: 29 / F ADM Date: 07/07/24 Loc: [facility]OMS Attending Dr: Agus Juárez D.O. Ordering Physician: Agus Juárez D.O. Date of Service: 07/07/24 Procedure(s): US OB growth Accession Number(s): [id number] cc: Agus Juárez D.O.; ALFREDITO AUSTIN [address] [address] Patient Name: ZELDA ZEPEDA MRN: [id number] date: 1995 Sex: F Assigned Patient Location: [facility] Current Patient Location: [facility] Accession/Order Number: [id number] Exam Date: 07/07/2024 08:30 Report Date: 07/07/2024 12:45 At the request of: AGUS JUÁREZ Procedure: US OB growth EXAMINATION: US OB growth HISTORY: ABNORMAL TSH COMPARISON: Ultrasound OB anatomy 05/12/2024 FINDINGS: Heart Rate: 129 bpm Amniotic Fluid Volume: 14.1 cm; normal range. Number: 1 Position: VARIABLE BIOMETRY: BPD: 7.06 cm; 28 weeks 2 days; 30.60 % HC: 26.94 cm; 29 weeks 3 days; 41.80 % AC: 25.30 cm; 29 weeks 3 days; 71.20 % FL: 5.38 cm; 28 weeks 4 days; 32.70 % EFW: 1299.98 g; 56.40 % FL/AC: 21.26 FL/BPD: 76.20 HC/AC: 1.06 GESTATIONAL AGE: Age by EDC: 20 weeks 4 days HERNANDO by EDC: 2024-09-25 Age by US: 29 weeks 0 days HERNANDO by US: 2024-09-22 US/US OB growth IMPRESSION: 1. Single live intrauterine with growth detailed above. Electronically authenticated by: CISCO QUINN Date: 07/07/2024 12:45 Dictated By: Cisco Quinn M.D. Signed By: 07/07/24 1248 DD/ 1245 TD/TT: Criminal Defense Lawyer: Procedure Note Radiology, Radiologist, MD - 07/07/2024 [place] [address] Ultrasound Report Signed Patient: ZELDA ZEPEDA LMR#: [id number] : 1995Acct:[id number] Age/Sex: 29 / FADM Date: 07/07/24 Loc: [facility]OM[facility] Attending Dr: Agus Juárez D.O. Ordering Physician: Agus Juárez D.O. Date of Service: 07/07/24 Procedure(s): US OB growth Accession Number(s): [id number] cc: Agus Juárez D.O.; ALFREDITO AUSTIN [place] [id number] Patient Name: ZELDA ZEPEDA MRN: [id number]:[id number] date: 1995 Sex: F Assigned Patient Location: [facility] Current Patient Location: [facility] Accession/Order Number: [id number] Exam Date: 07/07/2024 08:30 Report Date: 07/07/2024 12:45 At the request of: AGUS JUÁREZ Procedure: US OB growth EXAMINATION: US OB growth HISTORY: ABNORMAL TSH COMPARISON: Ultrasound OB anatomy 05/12/2024 FINDINGS: Heart Rate: 129 bpm Amniotic Fluid Volume: 14.1 cm; normal range. Number: 1 Position: VARIABLE BIOMETRY: BPD: 7.06 cm; 28 weeks 2 days; 30.60 % HC: 26.94 cm; 29 weeks 3 days; 41.80 % AC: 25.30 cm; 29 weeks 3 days; 71.20 % FL: 5.38 cm; 28 weeks 4 days; 32.70 % EFW: 1299.98 g; 56.40 % FL/AC: 21.26 FL/BPD: 76.20 HC/AC: 1.06 GESTATIONAL AGE: Age by EDC: 20 weeks 4 days HERNANDO by EDC: 2024-09-25 Age by US: 29 weeks 0 days HERNANDO by US: 2024-09-22 US/US OB growth IMPRESSION: 1. Single live intrauterine with growth detailed above. Electronically authenticated by: CISCO QUINN Date: 07/07/2024 12:45 Dictated By: Cisco Quinn M.D. Signed By:07/07/24 1248 DD/ 1245 TD/TT: Criminal Defense Lawyer: us Agus Marquita DO [facility] Final Result documented in this encounter Visit Diagnoses Not on filedocumented in this encounter Care Teams Boxing Promoter Relationship Specialty Start Date End Date Alfredito Austin NP PCP - General 07/19/23 documented as of this encounter
--- OUTSIDE RECORDS SUMMARY | 2025-03-18 12:23 | XMS_ITS | Encounter Summary ---
Author Organization [facility] Address [address] [facility] [place] [address] Care Team Providers Care Risk Management Internship Name Role Phone Sandra Austin NP Primary Care Provider Encounter Details Date Type Department Care Team (Late st Contact Info) Description 09/03/2024 Clinisync Result Encounter [facility]OM[facility] External Department Unsolicited Agus Juárez, [facility] [place] [address] Social History Tobacco Use Types Packs/Day Years [...] Visit [facility] BCP OB [address] [place] [address] Agus Juárez DO [address] [place] [address] [place] [address] documented as of this encounter Procedures Procedure Name Priority Date/Time Associated Diagnosis Comments US OB BPP W NON-STRESS 09/03/2024 4:09 AM EST documented in this encounter Results * US OB BPP W NON-STRESS (09/03/2024 4:09 AM EST) Anatomical Region Laterality Modality Other 09/03/2024 4:09 AM EST Narrative 09/03/2024 4:11 [place] [address] Ultrasound Report Signed Patient: ZELDA ZEPEDA MR#: [id number] : 1995 Acct:[id number] Age/Sex: 29 / F ADM Date: 09/02/24 Loc: US Attending Dr: Agus Juárez D.O. Ordering Physician: Agus Juárez D.O. Date of Service: 09/02/24 Procedure(s): US OB BPP w non-stress Accession Number(s): [id number] cc: Agus Juárez D.O.; Physician,Non-Staff M.Tyler [place] [address] Patient Name: ZELDA ZEPEDA MRN: [id number]:[id number] date: 1995 Sex: F Assigned Patient Location: [facility] Current Patient Location: Accession/Order Number: [id number] Exam Date: 09/02/2024 15:30 Report Date: 09/03/2024 04:09 At the request of: AGUS JUÁREZ Procedure: US OB BPP w non-stress EXAMINATION: US OB BPP w non-stress HISTORY:ABNORMAL TSH R79.89 COMPARISON: Ultrasound OB biophysical 08/26/2024 TECHNIQUE: Ultrasound biophysical profile was performed in the radiology department. BREATHING MOVEMENTS: 2 GROSS BODY MOVEMENTS: 2 TONE: 2 QUALITATIVE AMNIOTIC FLUID VOLUME: 2 PRESENTATION: CEPHALIC HEART RATE: 133.00 bpm AMNIOTIC FLUID VOLUME: 20.20 cm GESTATIONAL AGE: 36 weeks 5 days US/US OB BPP w non-stress IMPRESSION: Total biophysical profile score: 8 Electronically authenticated by: CISCO QUINN Date: 09/03/2024 04:09 Dictated By: Cisco Quinn M.D. Signed By: 09/03/24 0411 DD/ 8 TD/TT: Drum Cleaner: Procedure Note Radiology, Radiologist, - 09/03/2024 The [place] [id number] Ultrasound Report Signed Patient: ZELDA ZEPEDA LMR#: [id number] : 1995Acct:[id number] Age/Sex: 29 / FADM Date: 09/02/24 Loc: US Attending Dr: Agus Juárez D.O. Ordering Physician: Agus Juárez D.O. Date of Service: 09/02/24 Procedure(s): US OB BPP w non-stress Accession Number(s): [id number] cc: Agus Juárez D.O.; Physician,Non-Staff Jone The [address] [address] Patient Name: ZELDA ZEPEDA MRN: [facility]:[id number] date: 1995 Sex: F Assigned Patient Location: [facility] Current Patient Location: Accession/Order Number: [id number] Exam Date: 09/02/2024 15:30 Report Date: 09/03/2024 04:09 At the request of: AGUS JUÁREZ Procedure: US OB BPP w non-stress EXAMINATION: US OB BPP w non-stress HISTORY:ABNORMAL TSH R79.89 COMPARISON: Ultrasound OB biophysical 08/26/2024 TECHNIQUE: Ultrasound biophysical profile was performed in the radiology department. BREATHING MOVEMENTS: 2 GROSS BODY MOVEMENTS: 2 TONE: 2 QUALITATIVE AMNIOTIC FLUID VOLUME: 2 PRESENTATION: CEPHALIC HEART RATE: 133.00 bpm AMNIOTIC FLUID VOLUME: 20.20 cm GESTATIONAL AGE: 36 weeks 5 days US/US OB BPP w non-stress IMPRESSION: Total biophysical profile score: 8 Electronically authenticated by: CISCO QUINN Date: 09/03/2024 04:09 Dictated By: Cisco Quinn M.D. Signed By:09/03/24 0411 DD/ 8 TD/TT: Drum Cleaner: us Agus Marquita DO [facility] Final Result documented in this encounter Visit Diagnoses Not on filedocumented in this encounter Care Teams Risk Management Internship Relationship Specialty Start Date End Date Sandra Austin BARK PRESS OPERATOR PCP - General 07/19/23 documented as of this encounter
--- OUTSIDE RECORDS SUMMARY | 2025-03-18 12:23 | XMS_ITS | Encounter Summary ---
Author Organization [facility] Address [address] [facility] [place] [address] Care Team Providers Care Factory Worker Name Role Phone Alfredito Austin NP Primary Care Provider Encounter Details Date Type Department Care Team (Late st Contact Info) Description 05/12/2024 Clinisync Result Encounter [facility] External Department Unsolicited Agus Juárez, [address] [place] [address] Social History Tobacco Use Types Packs/Day Years [...] Visit [facility] BCP OB [address] [place] [address] Agus Juárez DO [address] [place] [address] [place] [address] documented as of this encounter Procedures Procedure Name Priority Date/Time Associated Diagnosis Comments US OB CERVICAL LENGTH 05/12/2024 9:42 AM EDT documented in this encounter Results * US OB CERVICAL LENGTH (05/12/2024 9:42 AM EDT) Anatomical Region Laterality Modality Other 05/12/2024 9:42 AM EDT Narrative 05/12/2024 9:44 AM EDT [address] [address] Ultrasound Report Signed Patient: ZELDA ZEPEDA MR#: [id number] : 1995 Acct:[id number] Age/Sex: 28 / F ADM Date: 05/12/24 Loc: [facility] Attending Dr: Agus Juárez D.O. Ordering Physician: Agus Juárez D.O. Date of Service: 05/12/24 Procedure(s): US OB cervical length Accession Number(s): [id number] cc: Agus Juárez D.O.; ALFREDITO AUSTIN [address] [id number] Patient Name: ZELDA ZEPEDA MRN: [facility]:[id number] date: 1995 Sex: F Assigned Patient Location: [facility] Current Patient Location: [facility] Accession/Order Number: [id number] Exam Date: 05/12/2024 08:32 Report Date: 05/12/2024 09:42 At the request of: AGUS JUÁREZ Procedure: US OB cervical length EXAMINATION: US OB cervical length, US OB anatomy HISTORY: CERVICAL LENGTH COMPARISON: No relevant comparison available. FINDINGS: Heart Rate: 146 bpm Amniotic Fluid Volume: Subjectively normal Placenta: Posterior. The placental edge is 3.7 cm from the internal os Cervix: 4.6 cm, closed Number: 1 Normal anatomy: Lateral ventricles, cerebellum, posterior fossa, nose, lips, orbits, four-chamber heart, RVOT, LVOT, diaphragm, stomach, kidneys, abdominal cord insertion, bladder, umbilical arteries, three-vessel cord, spine, extremities Position: VARIABLE BIOMETRY: BPD: 4.71 cm cm; 20 weeks 2 days; 35.30 %% HC: 17.72 cm cm; 20 weeks 1 day; 25 %% AC: 15.40 cm cm; 20 weeks 4 days; 44.20 %% FL: 3.25 cm cm; 20 weeks 1 day; 26.80 %% EFW: 354.11 g; 33.60 %, 12 ounces FL/AC: 21.10 FL/BPD: 69 HC/AC: 1.15 GESTATIONAL AGE: Age by EDC: 20 weeks 4 days HERNANDO by EDC: 2024-09-25 Age by US: 20 weeks 2 days HERNANDO by US: 2024-09-27 US/US OB cervical length IMPRESSION: Normal anatomy scan Closed cervix measuring 4.6 cm in length Electronically authenticated by: MANUELITO GREGG Date: 05/12/2024 09:42 Dictated By: Manuelito Gregg M.D. Signed By: 05/12/2444 DD/ 1 TD/TT: Patch Washer: Procedure Note Radiology, Radiologist, MD - 05/12/2024 [place] [address] Ultrasound Report Signed Patient: ZELDA ZEPEDA LMR#: [id number] : 1995Acct:[id number] Age/Sex: 28 / FADM Date: 05/12/24 Loc: [facility] Attending Dr: Agus Juárez D.O. Ordering Physician: Agus Juárez D.O. Date of Service: 05/12/24 Procedure(s): US OB cervical length Accession Number(s): [id number] cc: Agus Juárez D.O.; ALFREDITO AUSTIN The [place] [id number] Patient Name: ZELDA ZEPEDA MRN: [facility]:[id number] date: 1995 Sex: F Assigned [facility] Current [facility] Accession/Order Number: [id number] Exam Date: 05/12/2024 08:32 Report Date: 05/12/2024 09:42 At the request of: AGUS JUÁREZ Procedure: US OB cervical length EXAMINATION: US OB cervical length, US OB anatomy HISTORY: CERVICAL LENGTH COMPARISON: No relevant comparison available. FINDINGS: Heart Rate: 146 bpm Amniotic Fluid Volume: Subjectively normal Placenta: Posterior. The placental edge is 3.7 cm from the internal os Cervix: 4.6 cm, closed Number: 1 Normal anatomy: Lateral ventricles, cerebellum, posterior fossa, nose,lips, orbits, four-chamber heart, RVOT, LVOT, diaphragm, stomach, kidneys,abdominal cord insertion, bladder, umbilical arteries, three-vessel cord, spine, extremities Position: VARIABLE BIOMETRY: BPD: 4.71 cm cm; 20 weeks 2 days; 35.30 %% HC: 17.72 cm cm; 20 weeks 1 day; 25 %% AC: 15.40 cm cm; 20 weeks 4 days; 44.20 %% FL: 3.25 cm cm; 20 weeks 1 day; 26.80 %% EFW: 354.11 g; 33.60 %, 12 ounces FL/AC: 21.10 FL/BPD: 69 HC/AC: 1.15 GESTATIONAL AGE: Age by EDC: 20 weeks 4 days HERNANDO by EDC: 2024-09-25 Age by US: 20 weeks 2 days HERNANDO by US: 2024-09-27 US/US OB cervical length IMPRESSION: Normal anatomy scan Closed cervix measuring 4.6 cm in length Electronically authenticated by: MANUELITO GREGG Date: 05/12/2024 09:42 Dictated By: Manuelito Gregg M.D. Signed By:05/12/2444 DD/ 1 TD/TT: Patch Washer: us Agus Marquita DO [facility] Final Result documented in this encounter Visit Diagnoses Not on filedocumented in this encounter Care Teams Factory Worker Relationship Specialty Start Date End Date Alfredito Austin NP PCP - General 07/19/23 documented as of this encounter
--- OUTSIDE RECORDS SUMMARY | 2025-03-18 12:23 | XMS_ITS | Encounter Summary ---
Author Organization [facility] Address [address] [facility] [place] [address] Care Team Providers Care Station Attendant Name Role Phone Alfredito Austin NP Primary Care Provider Encounter Details Date Type Department Care Team (Late st Contact Info) Description 08/12/2024 Clinisync Result Encounter [facility] External Department Unsolicited Agus Juárez, [address] [place] [address] Social History Tobacco Use Types Packs/Day Years [...] Visit [facility] BCP OB [address] [place] [address] Agus Juárez DO [address] [place] [address] [place] [address] documented as of this encounter Procedures Procedure Name Priority Date/Time Associated Diagnosis Comments US OB BPP W NON-STRESS 08/12/2024 2:32 PM EDT documented in this encounter Results * US OB BPP W NON-STRESS (08/12/2024 2:32 PM EDT) Anatomical Region Laterality Modality Other 08/12/2024 2:32 PM EDT Narrative 08/12/2024 2:35 [place] [address] Ultrasound Report Signed Patient: ZELDA ZEPEDA MR#: [id number] : 1995 Acct:[id number] Age/Sex: 29 / F ADM Date: 08/12/24 Loc: [facility] 250-[address]: Augs Juárez D.O. Ordering Physician: Agus Juárez D.O. Date of Service: 08/12/24 Procedure(s): US OB BPP w non-stress Accession Number(s): [id number] cc: Agus Juárez D.O.; ALFREDITO AUSTIN [place] [address] Patient Name: ZELDA EZPEDA MRN: [id number]:[id number] date: 1995 Sex: F Assigned Patient Location: [facility] Current Patient Location: [facility] Accession/Order Number: [id number] Exam Date: 08/12/2024 14:03 Report Date: 08/12/2024 14:32 At the request of: AGUS JUÁREZ Procedure: US OB BPP w non-stress EXAMINATION: US OB BPP w non-stress HISTORY: Abnormal TSH R79.89 COMPARISON: No relevant comparison available. TECHNIQUE: Ultrasound biophysical profile was performed in the radiology department. non-reactive stress testing was performed by nursing staff in the birthing center. FINDINGS: BREATHING MOVEMENTS: 2 GROSS BODY MOVEMENTS: 2 TONE: 2 QUALITATIVE AMNIOTIC FLUID VOLUME: 2 PRESENTATION: CEPHALIC HEART RATE: 126.17 bpm AMNIOTIC FLUID VOLUME: 12.4 cm GESTATIONAL AGE: 33 weeks 5 days US/US OB BPP w non-stress IMPRESSION: Total biophysical profile score: 8 Electronically authenticated by: MANUELITO GREGG Date: 08/12/2024 14:32 Dictated By: Manuelito Gregg M.D. Signed By: 08/12/241434 DD/ 31 TD/TT: Residential Instructor: Procedure Note Radiology, Radiologist, - 08/12/2024 [place] [address] Ultrasound Report Signed Patient: ZELDA ZEPEDA LMR#: [id number] : 1995Acct:[id number] Age/Sex: 29 / FADM Date: 08/12/24 Loc: [facility] 250-[address]: Agus Juárez D.O. Ordering Physician: Agus Juárez D.O. Date of Service: 08/12/24 Procedure(s): US OB BPP w non-stress Accession Number(s): [id number] cc: Agus Juárez D.O.; ALFREDITO AUSTIN [place] [address] Patient Name: ZELDA ZEPEDA MRN: [facility]:[id number] date: 1995 Sex: F Assigned Patient Location: [facility] Current Patient Location: [facility] Accession/Order Number: [id number] Exam Date: 08/12/2024 14:03 Report Date: 08/12/2024 14:32 At the request of: AGUS JUÁREZ Procedure: US OB BPP w non-stress EXAMINATION: US OB BPP w non-stress HISTORY: Abnormal TSH R79.89 COMPARISON: No relevant comparison available. TECHNIQUE: Ultrasound biophysical profile was performed in the radiology department. non-reactive stress testing was performed by nursingstaff in the birthing center. FINDINGS: BREATHING MOVEMENTS: 2 GROSS BODY MOVEMENTS: 2 TONE: 2 QUALITATIVE AMNIOTIC FLUID VOLUME: 2 PRESENTATION: CEPHALIC HEART RATE: 126.17 bpm AMNIOTIC FLUID VOLUME: 12.4 cm GESTATIONAL AGE: 33 weeks 5 days US/US OB BPP w non-stress IMPRESSION: Total biophysical profile score: 8 Electronically authenticated by: MANUELITO GREGG Date: 08/12/2024 14:32 Dictated By: Manuelito Gregg M.D. Signed By:08/12/241434 DD/ 31 TD/TT: Residential Instructor: us Agus Marquita DO [facility] Final Result documented in this encounter Visit Diagnoses Not on filedocumented in this encounter Care Teams Station Attendant Relationship Specialty Start Date End Date Alfredito Austin VISUAL MERCHANDISING MANAGER PCP - General 07/19/23 documented as of this encounter
--- OUTSIDE RECORDS SUMMARY | 2025-03-18 12:23 | XMS_ITS | Clinical Summary ---
Author Organization [facility] Address [address] [place] [address] Care Team Providers Care Human Resources Psychologist Name Role Phone Sandar Austin NP Primary Care Provider Allergies No known active allergies Medications Natural Vitamin D-3 125 MCG (5000 UT) tablet Take 5,000 Units by mouth in the morning. as directed. 3 Active levothyroxine (Synthroid, Levoxyl) 25 MCG tablet Take 50 mcg by mouth in the morning. Take before meals. 3 Active Ydoitjei-Ksd-Ci-FA ( 1 + IRON PO) Take by mouth Active cetirizine (ZyrTEC) 10 MG tablet Take 10 mg by mouth Daily Active citalopram (CeleXA) 40 MG tabletIndications: Well woman exam with routine gynecological exam Take 1 tablet (40 mg) by mouth Daily 30 tablet 11 5 12/21/19 26 Active desogestrel-ethiny l estradiol (Enskyce) 0.15-30 MG-MCG tabletIndications: Well woman exam with routine gynecological exam Take 1 tablet by mouth Daily 28 tablet 12 5 12/21/19 26 Active Active Problems Problem Noted Date Diagnosed Date Gastroesophageal reflux disease 08/18/2024 Nausea and vomiting 08/18/2024 Pelvic and perineal pain 07/30/2023 PCOS (polycystic ovarian syndrome) 07/30/2023 Right ear pain 07/30/2023 Pre-diabetes 07/30/2023 Hypothyroid 07/30/2023 Resolved Problems Problem Noted Date Diagnosed Date Resolved Date 34 weeks gestation of 08/18/2024 09/21/2024 Encounters Date Type Department Care Team Description 12/30/2024 Orders Only [facility] BCP OB [address] [facility] [place] [address] Bharati Cedeno LPN from Last 3 Months Immunizations Immunization Administration Dates Next Due DTP 09/08/2022 DTaP, Unspecified 08/14/1999,04/27/1998,11/29/18 98,1997 Hep B, Adolescent or Pediatric 1995 Hib (HbOC) 08/14/1999,1997 Hib / Hep B 04/27/1998,1997 IPV 1997,1997 MMR 08/14/1999 OPV 08/14/1999 Pneumococcal Conjugate PCV 13 09/12/2021 Family History Medical History Relation Name Comments Diabetes type II Father Arpit Hypertension Father Arpit Heart failure Mother Cancer Paternal Grandfather Arpit Diabetes Paternal Grandfather Arpit Mental illness Paternal Grandfather Arpit Cancer Paternal Grandmother Jenna Bipolar disorder Sister Trinity Seizures Sister Trinity Relation Name Status Comments Father Arpit Mother Paternal Grandfather Arpit Paternal Grandmother Jenna Petersen Social History Tobacco Use Types Packs/Day Years Used Date Smoking Tobacco: Never Smokeless Tobacco: Never Tobacco Cessation:Counseling Given: Not Answered Alcohol Use Standard Drinks/Week Comments Not Currently 0 (1 standard drink = 0.6 oz pur e alcohol) Comments No Sex and Gender Information Value Date Recorded Sex Assigned at Not on file Legal Sex Female 7:47 PM EDT Gender Identity Not on file Sexual Orientation Not on file Last Filed Vital Signs Vital Sign Reading Time Taken Comments Blood Pressure 118/82 12/17/2024 8:54 AM EST Pulse - - Temperature - - Respiratory Rate - - Oxygen Saturation - - Inhaled Oxygen Concentration - - Weight 114 kg (250 lb 12.8 oz) 12/17/2024 8:54 A M EST Height 160 cm (5' 3 ) 08/02/2023 11:20 AM EDT Body Mass Index 44.43 08/02/2023 11:20 AM EDT Plan of Treatment Upcoming Encounters Date Type Department Care Team (Late st Contact Info) Description 12/21/2025 9:00 AM EST Office Visit [facility] BCP OB [address] [facility] [place] [id number] Edgar Juárez DO [address] [place] [address] Insurance [employer] Care Teams Human Resources Psychologist Relationship Specialty Start Date End Date Sandra Austin NP PCP - General 07/19/23
--- OUTSIDE RECORDS SUMMARY | 2025-03-18 12:23 | XMS_ITS | Encounter Summary ---
Author Organization [facility] Address [address] [facility] [place] [address] Care Team Providers Care Tool Planner Name Role Phone Alfredito Austin NP Primary Care Provider [phone] Encounter Details Date Type Department Care Team (Late st Contact Info) Description 08/05/2024 Clinisync Result Encounter [facility] External Department Unsolicited Agus Juárez, [address] [place] [address] Social History Tobacco Use Types Packs/Day Years [...] [facility] BCP OB [address] [place] [address] Agus Juárez DO [address] [place] [address] [place] [address] documented as of this encounter Procedures Procedure Name Priority Date/Time Associated Diagnosis Comments US OB BPP W NON-STRESS 08/05/2024 3:21 PM EDT ALL THYROID STIM HORMONE Routine 08/05/2024 3:00 PM EDT documented in this encounter Results * US OB BPP W NON-STRESS (08/05/2024 3:21 PM EDT) Anatomical Region Laterality Modality Other 08/05/2024 3:21 PM EDT Narrative 08/05/2024 3:24 [place] [address] Ultrasound Report Signed Patient: ZELDA ZEPEDA MR#: [id number] : 1995 Acct:[id number] Age/Sex: 29 / F ADM Date: 08/05/24 Loc: US Attending Dr: Agus Juárez D.O. Ordering Physician: Agus Juárez D.O. Date of Service: 08/05/24 Procedure(s): US OB BPP w non-stress Accession Number(s): [id number] cc: Agus Juárez D.O.; ALFREDITO AUSTIN [place] [address] Patient Name: ZELDA ZEPEDA MRN: [facility]:[id number] date: 1995 Sex: F Assigned Patient Location: [facility] Current Patient Location: [facility] Accession/Order Number: [id number] Exam Date: 08/05/2024 14:00 Report Date: 08/05/2024 15:21 At the request of: AGUS JUÁREZ Procedure: US OB BPP w non-stress EXAMINATION: US OB BPP w non-stress HISTORY:Abnormal TSH R79.89 COMPARISON: Ultrasound OB growth 07/07/2024 TECHNIQUE: Ultrasound biophysical profile was performed in the radiology department. BREATHING MOVEMENTS: 2 GROSS BODY MOVEMENTS: 2 TONE: 2 QUALITATIVE AMNIOTIC FLUID VOLUME: 2 PRESENTATION: CEPHALIC HEART RATE: 130.43 bpm AMNIOTIC FLUID VOLUME: 17.73 cm GESTATIONAL AGE: 32 weeks 5 days US/US OB BPP w non-stress IMPRESSION: Total biophysical profile score: 8 Electronically authenticated by: CISCO QUINN Date: 08/05/2024 15:21 Dictated By: Cisco Quinn M.D. Signed By: 08/05/24 152 DD/ 20 TD/TT: Pigment Furnace Tender: Procedure Note Radiology, Radiologist, - 08/05/2024 [place] [address] Ultrasound Report Signed Patient: ZELDA ZEPEDA LMR#: [id number] : 1995Acct:[id number] Age/Sex: 29 / FADM Date: 08/05/24 Loc: US Attending Dr: Agus Juárez D.O. Ordering Physician: Agus Juárez D.O. Date of Service: 08/05/24 Procedure(s): US OB BPP w non-stress Accession Number(s): [id number] cc: Agus Juárez D.O.; ALFREDITO AUSTIN The [place] [address] Patient Name: ZELDA ZEPEDA MRN: [facility]:[id number] date: 1995 Sex: F Assigned Patient Location: [facility] Current Patient Location: [facility] Accession/Order Number: [id number] Exam Date: 08/05/2024 14:00 Report Date: 08/05/2024 15:21 At the request of: AGUS JUÁREZ Procedure: US OB BPP w non-stress EXAMINATION: US OB BPP w non-stress HISTORY:Abnormal TSH R79.89 COMPARISON: Ultrasound OB growth 07/07/2024 TECHNIQUE: Ultrasound biophysical profile was performed in the radiology department. BREATHING MOVEMENTS: 2 GROSS BODY MOVEMENTS: 2 TONE: 2 QUALITATIVE AMNIOTIC FLUID VOLUME: 2 PRESENTATION: CEPHALIC HEART RATE: 130.43 bpm AMNIOTIC FLUID VOLUME: 17.73 cm GESTATIONAL AGE: 32 weeks 5 days US/US OB BPP w non-stress IMPRESSION: Total biophysical profile score: 8 Electronically authenticated by: CISCO QUINN Date: 08/05/2024 15:21 Dictated By: Cisco Quinn M.D. Signed By:08/05/24 1524 DD/ 1521 TD/TT: Pigment Furnace Tender: us Agus Marquita DO [facility] Final Result * ALL THYROID STIM HORMONE (08/05/2024 3:00 PM EDT) THYROID STIMULATING HORMONE 1.227 0.358 - 3.740 uIU/mL [facility] 08/05/2024 3:00 PM EDT 08/05/2024 3:02 PM EDT Narrative [facility] - 08/05/2024 4:32 PM EDT us Agus Marquita DO [facility] documented in this encounter Visit Diagnoses Not on filedocumented in this encounter Care Teams Tool Planner Relationship Specialty Start Date End Date Alfredito Austin NP PCP - General 07/19/23 documented as of this encounter
--- OUTSIDE RECORDS SUMMARY | 2025-03-18 12:23 | XMS_ITS | Encounter Summary ---
Author Organization [facility] Address [address] [facility] [place] [address] Care Team Providers Care Lead Cook Name Role Phone Sandra Austin GATE CLERK Primary Care Provider Encounter Details Date Type Department Care Team (Late Contact Info) Description 08/13/2024 Abstract [facility] BCP OB [address] [place] [address] Edgar Juárez DO [address] [place], [place] [address] Social History Tobacco Use Types Packs/Day Years [...] 12/21/2025 9:00 AM EST Office Visit [facility] OB [address] [place] [address] Edgar Juárez DO [address] [place], [place] [id number] documented as of this encounter Visit Diagnoses Not on filedocumented in this encounter Care Teams Lead Cook Relationship Specialty Start Date End Date Sandra Austin GATE CLERK PCP - General 07/19/23 documented as of this encounter
--- OUTSIDE RECORDS SUMMARY | 2025-03-18 12:23 | XMS_ITS | Encounter Summary ---
Author Organization [facility] Address [address] [facility] [place] [address] Care Team Providers Care Skirt Trimmer Name Role Phone Sandra Austin NP Primary Care Provider Encounter Details Date Type Department Care Team (Late st Contact Info) Description 09/17/2024 Clinisync Result Encounter [facility] External Department Unsolicited Agus Juráez, [address] [place] [address] Social History Tobacco Use Types Packs/Day Years [...] [facility] BCP OB [address] [place] [address] Agus Juárez DO [address] [place] [address] [place] [address] documented as of this encounter Procedures Procedure Name Priority Date/Time Associated Diagnosis Comments US OB BPP W NON-STRESS 09/17/2024 4:18 AM EST documented in this encounter Results * US OB BPP W NON-STRESS (09/17/2024 4:18 AM EST) Anatomical Region Laterality Modality Other 09/17/2024 4:18 AM EST Narrative 09/17/2024 4:25 [place] [address] Ultrasound Report Signed Patient: ZELDA ZEPEDA MR#: [id number] : 1995 Acct:[id number] Age/Sex: 29 / F ADM Date: 09/16/24 Loc: US Attending Dr: Agus Juárez D.O. Ordering Physician: Agus Juárez D.O. Date of Service: 09/16/24 Procedure(s): US OB BPP w non-stress Accession Number(s): [id number] cc: Agus Juárez D.O.; Physician,Non-Staff MArron The [place] [id number] Patient Name: ZELDA ZEPEDA MRN: [facility]:[id number] date: 1995 Sex: F Assigned Patient Location: [facility] Current Patient Location: US Accession/Order Number: [id number] Exam Date: 09/16/2024 15:07 Report Date: 09/17/2024 04:18 At the request of: AGUS JUÁREZ Procedure: US OB BPP w non-stress EXAMINATION: US OB BPP w non-stress HISTORY:ABNORMAL TSH R79.69 COMPARISON: Ultrasound OB biophysical 09/09/2024 TECHNIQUE: Ultrasound biophysical profile was performed in the radiology department. BREATHING MOVEMENTS: 2 GROSS BODY MOVEMENTS: 2 TONE: 2 QUALITATIVE AMNIOTIC FLUID VOLUME: 2 PRESENTATION: CEPHALIC HEART RATE: 154.29 bpm AMNIOTIC FLUID VOLUME: 24.12 cm GESTATIONAL AGE: 38 weeks 5 days US/US OB BPP w non-stress IMPRESSION: Total biophysical profile score: 8 Electronically authenticated by: CISCO QUINN Date: 09/17/2024 04:18 Dictated By: Cisco Quinn M.D. Signed By: 09/17/24 0425 DD/ 7 TD/TT: Guard Driver: Procedure Note Radiology, Radiologist, - 09/17/2024 The [place] [id number] Ultrasound Report Signed Patient: ZELDA ZEPEDA LMR#: [id number] : 1995Acct:[id number] Age/Sex: 29 / FADM Date: 09/16/24 Loc: US Attending Dr: Agus Juárez D.O. Ordering Physician: Agus Juárez D.O. Date of Service: 09/16/24 Procedure(s): US OB BPP w non-stress Accession Number(s): [id number] cc: Agus Juárez D.O.; Physician,Non-Staff Jone The [address] [address] Patient Name: ZELDA ZEPEDA MRN: [facility]:[id number] date: 1995 Sex: F Assigned Patient Location: [facility] Current Patient Location: US Accession/Order Number: [id number] Exam Date: 09/16/2024 15:07 Report Date: 09/17/2024 04:18 At the request of: AGUS JUÁREZ Procedure: US OB BPP w non-stress EXAMINATION: US OB BPP w non-stress HISTORY:ABNORMAL TSH R79.69 COMPARISON: Ultrasound OB biophysical 09/09/2024 TECHNIQUE: Ultrasound biophysical profile was performed in the radiology department. BREATHING MOVEMENTS: 2 GROSS BODY MOVEMENTS: 2 TONE: 2 QUALITATIVE AMNIOTIC FLUID VOLUME: 2 PRESENTATION: CEPHALIC HEART RATE: 154.29 bpm AMNIOTIC FLUID VOLUME: 24.12 cm GESTATIONAL AGE: 38 weeks 5 days US/US OB BPP w non-stress IMPRESSION: Total biophysical profile score: 8 Electronically authenticated by: CISCO QUINN Date: 09/17/2024 04:18 Dictated By: Cisco Quinn M.D. Signed By:09/17/24 0425 DD/ 7 TD/TT: Guard Driver: us Agus Juárez DO [facility] Final Result documented in this encounter Visit Diagnoses Not on filedocumented in this encounter Care Teams Skirt Trimmer Relationship Specialty Start Date End Date Sandra Austin, CORE WINDER MACHINE OPERATOR PCP - General 07/19/23 documented as of this encounter
--- OUTSIDE RECORDS SUMMARY | 2025-03-18 12:23 | XMS_ITS | Encounter Summary ---
Author Organization [facility] Address [address] [facility] [place] [address] Care Team Providers Care Professional Bass Fisher Name Role Phone Alfredito Austin NP Primary Care Provider Encounter Details Date Type Department Care Team (Late st Contact Info) Description 05/12/2024 Clinisync Result Encounter [facility] External Department Unsolicited Agus Juárez DO [facility] [place] [address] Social History Tobacco Use Types Packs/Day Years [...] [facility] B[facility] OB [address] [place] [address] Agus Juárez DO [address] [place] [address] [place] [address] documented as of this encounter Procedures Procedure Name Priority Date/Time Associated Diagnosis Comments US OB ANATOMY 05/12/2024 9:42 AM EDT documented in this encounter Results * US OB ANATOMY (05/12/2024 9:42 AM EDT) Anatomical Region Laterality Modality Other 05/12/2024 9:42 AM EDT Narrative 05/12/2024 9:44 AM EDT [address] [address] Ultrasound Report Signed Patient: ZELDA ZEPEDA MR#: [id number] : 1995 Acct:[id number] Age/Sex: 28 / F ADM Date: 05/12/24 Loc: [facility] Attending Dr: Agus Juárez D.O. Ordering Physician: Agus Juárez D.O. Date of Service: 05/12/24 Procedure(s): US OB anatomy Accession Number(s): [id number] cc: Agus Juárez D.O.; ALFREDITO AUSTIN [address] [address] Patient Name: ZELDA ZEPEDA MRN: [id number] date: 1995 Sex: F Assigned Patient Location: [facility] Current Patient Location: [facility] Accession/Order Number: [id number] Exam Date: 05/12/2024 08:32 Report Date: 05/12/2024 09:42 At the request of: AGUS JUÁREZ Procedure: US OB anatomy EXAMINATION: US OB cervical length, US OB [...] days HERNANDO by US: 2024-09-27 US/US OB anatomy IMPRESSION: Normal anatomy scan Closed cervix measuring 4.6 cm in length Electronically authenticated by: MANUELITO GREGG Date: 05/12/2024 09:42 Dictated By: Manuelito Gregg M.D. Signed By: 05/12/2444 DD/ 1 TD/TT: Day Habilitation Supervisor: Procedure Note Radiology, Radiologist, MD - 05/12/2024 [place] [address] Ultrasound Report Signed Patient: ZELDA ZEPEDA LMR#: [id number] : 1995Acct:[id number] Age/Sex: 28 / FADM Date: 05/12/24 Loc: [facility] Attending Dr: Agus Jáurez D.O. Ordering Physician: Agus Juárez D.O. Date of Service: 05/12/24 Procedure(s): US OB anatomy Accession Number(s): [id number] cc: Agus Juárez D.O.; ALFREDITO AUSTIN [place] [id number] Patient Name: ZELDA ZEPEDA MRN: [id number] date: 1995 Sex: F Assigned [facility] Accession/Order Number: [id number] Exam Date: 05/12/2024 08:32 Report Date: 05/12/2024 09:42 At the request of: AGUS JUÁREZ Procedure: US OB anatomy EXAMINATION: US OB cervical length, US OB [...] days HERNANDO by US: 2024-09-27 US/US OB anatomy IMPRESSION: Normal anatomy scan Closed cervix measuring 4.6 cm in length Electronically authenticated by: MANUELITO GREGG Date: 05/12/2024 09:42 Dictated By: Manuelito Gregg M.D. Signed By:05/12/2444 DD/ 1 TD/TT: Day Habilitation Supervisor: us Agus Marquita DO [facility] Final Result documented in this encounter Visit Diagnoses Not on filedocumented in this encounter Care Teams Professional Bass Fisher Relationship Specialty Start Date End Date Alfredito Austin NP PCP - General 07/19/23 documented as of this encounter
--- OUTSIDE RECORDS SUMMARY | 2025-03-18 12:23 | XMS_ITS | Encounter Summary ---
Author Organization [facility] Address [address] [facility] [place] [address] Care Team Providers Care Line Lead Name Role Phone Sandra Austin RELIEF DOCKING MASTER Primary Care Provider Encounter Details Date Type Department Care Team (Late st Contact Info) Description 02/20/2024 Abstract [facility] OB [address] [place] [address] Bharati Cedeno LPN [address] [place] [address] Social History Tobacco Use Types Packs/Day Years [...] 12/21/2025 9:00 AM EST Office Visit [facility] OB [address] [place] [address] Edgar Juárez [address] [place], [place] [id number] documented as of this encounter Visit Diagnoses Not on filedocumented in this encounter Care Teams Line Lead Relationship Specialty Start Date End Date Sandra Austin, RELIEF DOCKING MASTER PCP - General 07/19/23 documented as of this encounter
--- OUTSIDE RECORDS SUMMARY | 2025-03-18 12:23 | XMS_ITS | Encounter Summary ---
Author Organization [facility] Address [address] [facility] [place] [address] Care Team Providers Care Custom Car Builder Name Role Phone Sandra Austin NP Primary Care Provider [phone] Encounter Details Date Type Department Care Team (Late st Contact Info) Description 12/30/2024 Orders Only [facility] OB [address] [place] [address] Bharati Cedeno LPN [address] [address] [place] [id number] Social History Tobacco Use Types Packs/Day Years [...] 12/21/2025 9:00 AM EST Office Visit [facility] OB [address] [place] [address] Edgar Juárez DO [address] [place], [place] [address] documented as of this encounter Procedures Procedure Name Priority Date/Time Associated Diagnosis Comments PAP SMEAR Routine 12/17/2024 12:00 AM EST documented in this encounter Results * Pap Smear (12/17/2024 12:00 AM EST) Swab Cervical swab / Unknown us [facility] B[facility] Ob Marquita Nurse LAB CYTOLOGY ORDERABLES Final Result EXTERNAL LAB documented in this encounter Visit Diagnoses Not on filedocumented in this encounter Care Teams Custom Car Builder Relationship Specialty Start Date End Date Sandra Austin, IT APPLICATION ARCHITECT PCP - General 07/19/23 documented as of this encounter
--- OUTSIDE RECORDS SUMMARY | 2025-03-18 12:23 | XMS_ITS | Encounter Summary ---
Author Organization [facility] Address [address] [facility] [place] [address] Care Team Providers Care Middle School Guidance Counselor Name Role Phone Alfredito Austin NP Primary Care Provider Encounter Details Date Type Department Care Team (Late st Contact Info) Description 02/14/2024 Clinisync Result Encounter [facility] External Department Unsolicited Agus Juárez, [facility] [place] [address] Social History Tobacco Use Types Packs/Day Years [...] Visit [facility] OB [address] [place] [address] Agus Juárez DO [address] [place] [address] [place] [address] documented as of this encounter Procedures Procedure Name Priority Date/Time Associated Diagnosis Comments US OB TRANSVAGINAL 02/14/2024 11 :25 AM EDT documented in this encounter Results * US OB TRANSVAGINAL (02/14/2024 11:25 AM EDT) Anatomical Region Laterality Modality Other 02/14/2024 11:2 5 AM EDT Narrative 02/14/2024 11:27 [place] [address] Ultrasound Report Signed Patient: ZELDA ZEPEDA MR#: [id number] : 1995 Acct:[id number] Age/Sex: 28 / F ADM Date: 02/14/24 Loc: [facility] Attending Dr: Agus Juárez D.O. Ordering Physician: Agus Juárez D.O. Date of Service: 02/14/24 Procedure(s): US OB transvaginal Accession Number(s): [id number] cc: Agus Juárez D.O.; ALFREDITO AUSTIN [place] [id number] Patient Name: ZELDA ZEPEDA MRN: [id number] date: 1995 Sex: F Assigned Patient Location: [facility] Current Patient Location: [facility] Accession/Order Number: [id number] Exam Date: 02/14/2024 10:30 Report Date: 02/14/2024 11:25 At the request of: AGUS JUÁREZ Procedure: US OB transvaginal EXAMINATION: US OB transvaginal HISTORY: MISSED MENSES COMPARISON: No relevant comparison available. FINDINGS: GESTATIONAL SAC: Present and normal appearing. YOLK SAC: Present and normal appearing. POLE: Present and normal appearing. CARDIAC: Present. UTERUS: Normal size and appearance. OVARIES: Right: Normal. Left: Normal. CERVIX: 4.5 cm in length and closed. CUL-DE-SAC: Normal. OTHER: None. AGE BY LMP: 8 weeks 0 days HERNANDO BY LMP: 09/25/2024 AGE BY US CRL: 8 weeks 3 days HERNANDO BY US CRL: 09/22/2024 US/US OB transvaginal IMPRESSION: 1. Single live intrauterine . Electronically authenticated by: CISCO QUINN Date: 02/14/2024 11:25 Dictated By: Cisco Quinn M.D. Signed By: 02/14/24 1127 DD/ 1125 TD/TT: Laundromat Manager: Procedure Note Radiology, Radiologist, - 02/14/2024 [place] [address] Ultrasound Report Signed Patient: ZELDA ZEPEDA LMR#: [id number] : 1995Acct:[id number] Age/Sex: 28 / FADM Date: 02/14/24 Loc: [facility] Attending Dr: Agus Juárez D.O. Ordering Physician: Agus Juárez D.O. Date of Service: 02/14/24 Procedure(s): US OB transvaginal Accession Number(s): [id number] cc: Agus Juárez D.O.; ALFREDITO AUSTIN [address] [place] [address] Patient Name: ZELDA ZEPEDA MRN: [id number] date: 1995 Sex: F Assigned Patient Location: [facility] Current Patient Location: [facility] Accession/Order Number: [id number] Exam Date: 02/14/2024 10:30 Report Date: 02/14/2024 11:25 At the request of: AGUS JUÁREZ Procedure: US OB transvaginal EXAMINATION: US OB transvaginal HISTORY: MISSED MENSES COMPARISON: No relevant comparison available. FINDINGS: GESTATIONAL SAC: Present and normal appearing. YOLK SAC: Present and normal appearing. POLE: Present and normal appearing. CARDIAC: Present. UTERUS: Normal size and appearance. OVARIES: Right: Normal. Left: Normal. CERVIX: 4.5 cm in length and closed. CUL-DE-SAC: Normal. OTHER: None. AGE BY LMP: 8 weeks 0 days HERNANDO BY LMP: 09/25/2024 AGE BY US CRL: 8 weeks 3 days HERNANDO BY US CRL: 09/22/2024 US/US OB transvaginal IMPRESSION: 1. Single live intrauterine . Electronically authenticated by: CISCO QUINN Date: 02/14/2024 11:25 Dictated By: Cisco Quinn M.D. Signed By:02/14/24 1127 DD/ 1125 TD/TT: Laundromat Manager: us Agus Marquita DO [facility] Final Result documented in this encounter Visit Diagnoses Not on filedocumented in this encounter Care Teams Middle School Guidance Counselor Relationship Specialty Start Date End Date Alfredito Austin NP PCP - General 07/19/23 documented as of this encounter
--- OUTSIDE RECORDS SUMMARY | 2025-03-18 12:23 | XMS_ITS | Encounter Summary ---
Author Organization [facility] Address [address] [facility] [place] [address] Care Team Providers Care Car Repairer Helper Name Role Phone Sandra Austin SEWAGE SCREEN OPERATOR Primary Care Provider Encounter Details Date Type Department Care Team (Late Contact Info) Description 04/17/2024 Abstract [facility] OB [address] [place] [address] Edgar Juárez DO [address] [place], [place] [address] Social History Tobacco Use Types Packs/Day Years [...] 12/21/2025 9:00 AM EST Office Visit [facility] [address] [place] [address] Edgar Juárez DO [address] [place], [place] [address] documented as of this encounter Visit Diagnoses Not on filedocumented in this encounter Care Teams Car Repairer Helper Relationship Specialty Start Date End Date Sandra Austin SEWAGE SCREEN OPERATOR PCP - General 07/19/23 documented as of this encounter
--- OUTSIDE RECORDS SUMMARY | 2025-03-18 12:23 | XMS_ITS | Patient Health Record ---
Author Organization [facility] Address [address] [place] [address] Care Team Providers Care Perennial House Manager Name Role Phone Magdi Aleksey Primary Care Provider Reason For Referral No Information Medications Medication SIG (Take, Route, Frequency, Duration) Notes Start Date End Date Status Vitamin D Active Synthroid Active ZyrTEC Active Encounters Encounter Location Date Provider Diagnosis [facility] [address] [place] [address] 02/22/2025 Aleksey Fairbanks Plan Of Treatment No Information Insurance Providers Payer Name Payer Address Payer Phone Subscriber Number Group Number Insured Name Patient Relationship to Insured Coverage Start Date Coverage End Date Dental [employer] DQ [address] [address] [place] [address] [id number] SOFIA ZEPEDA Self - patient is the insured 3 Dental [employer] [facility] [employer] [address] [place] [address] [id number] SOFIA ZEPEDA Self - patient is the insured 3
[2025-03-18 16:02] LABS: Free T3 2.98 pg/mL (2.18-3.98)
[2025-03-18 16:31] LABS: Free T4 1.03 ng/dL (0.76-1.46)
== END 2025-03-18 12:17 | disposition home or self-care (01) ==
LOC: LAB 12:21
PROVIDERS: PCP Student in an Organized Health Care Education/Training Program; Visit Provider Student in an Organized Health Care Education/Training Program
DX: E03.9 Hypothyroidism, unspecified (principal)
CPT/HCPCS: 36415; 84439; 84443; 84481

== ENCOUNTER 2025-09-30 08:43 | Outpatient (OUT) | payer OTHER, SELFPAY ==
--- OUTSIDE RECORDS SUMMARY | 2025-09-30 08:47 | XMS_ITS | Encounter Summary ---
Author Organization [facility] Address [address] [facility] [place] [address] Care Team Providers Care Computer Security Specialist Name Role Phone Sandra Austin NP Primary Care Provider [phone] Encounter Details DateTypeDepartmentCare Team (Latest Contact Info)Wmplqqgiqat24/19/2025External Result Encounter [facility] External Department Unsolicited Marylou Hobbs PA [address], [place] [address] Social History Tobacco UseTypesPacks/DayYears UsedDateSmoking Tobacco: NeverSmokeless Tobacco: NeverAlcohol UseStandard Drinks/WeekCommentsNot Currently0 (1 standard drink = 0.6 oz pure alcohol)CommentsUnknownSex and Gender InformationValueDate RecordedSex Assigned at BirthNot on fileLegal WpqFgesnw24/15/2023 7:47 PM EDT Gender IdentityNot on fileSexual OrientationNot on filedocumented as of this encounter Plan of Treatment DateTypeDepartselect specialty hospitalCare Team (Latest Contact Info)Tihuyofaafo21/24/2026 9:00 AM ESTOffice Visit [facility] [address] [place] [address] Edgar Juárez DO [address] [place], [place] [address] documented as of this encounter Procedures Procedure NamePriorityDate/TimeAssociated DiagnosisCommentsRECURRENT VAGINITIS (HTRX)Hywowwa7209/15/2025 12:50 PM EST documented in this encounter Results * RECURRENT VAGINITIS (HTRX) (09/15/2025 12:50 PM EST)ComponentValueRef Range Test MethodAnalysis TimePerformed AtPathologist SignatureATOPOBIUM VAGINAE0 19.961 - 24.689 ppm09/16/2025 7:43 AM ESTHealthTrackRx at LabPortATOPOBIUM VAGINAENot Nnncganc71.961 - 24.689 ppm09/16/2025 7:43 AM ESTHealthTrackRx at LabPortBVAB 2,3 (BACTERIAL VAGINOSIS ASSOCIATED BACTERIA 2, 3); MOBILUNCUS SPP 019.961 - 24.689 ppm09/16/2025 7:43 AM ESTHealthTrackRx at LabPortBVAB 2,3 (BACTERIAL VAGINOSIS ASSOCIATED BACTERIA 2, 3); MOBILUNCUS SPPNot Detected 19.961 - 24.689 ppm09/16/2025 7:43 AM ESTHealthTrackRx at LabPortCANDIDA ALBICANS, PARAPSILOSIS, NSRTUNPQWT704.000 - 30.347 ppm09/16/2025 7:43 AM EST [facility] at LabPortCANDIDA ALBICANS, PARAPSILOSIS, TROPICALISNot Detected 23.000 - 30.347 ppm09/16/2025 7:43 AM ESTHealthTrackRx at LabPortCANDIDA PNMAAUBW194.000 - 31.618 ppm09/16/2025 7:43 AM ESTHealthTrackRx at LabPort MARYAM GLABRATANot Aladjxoz84.000 - 31.618 ppm09/16/2025 7:43 AM EST [facility] at LabPortCANDIDA QPIULF589.000 - 30.873 ppm09/16/2025 7:43 AM ESTHealthTrackRx at LabPortCANDIDA KRUSEINot Kgdtjnjd47.000 - 30.873 ppm 09/16/2025 7:43 AM ESTHealthTrackRx at LabPortCHLAMYDIA DMGRCHJVXLG675.000 - 31.586 ppm09/16/2025 7:43 AM ESTHealthTrackRx at LabPortCHLAMYDIA TRACHOMATIS Not Mbqsyrvq51.000 - 31.586 ppm11/ 7:43 AM ESTHealthTrackRx at LabPort GARDNERELLA DMGJFYNYD703.961 - 24.689 ppm09/16/2025 7:43 AM ESTHealthTrackRx at LabPortGARDNERELLA VAGINALISNot Itcfpopi05.961 - 24.689 ppm09/16/2025 7:43 AM ESTHealthTrackRx at LabPortMEGASPHAERA (TYPES 1, 2)019.961 - 24.689 ppm 09/16/2025 7:43 AM ESTHealthTrackRx at LabPortMEGASPHAERA (TYPES 1, 2)Not Sppwhetp39.961 - 24.689 ppm09/16/2025 7:43 AM ESTHealthTrackRx at [facility] NEISSERIA YXDORUNVYGH350.000 - 32.587 ppm09/16/2025 7:43 AM ESTHealthTrackRx at LabPortNEISSERIA GONORRHOEAENot Ipvxbjdj29.000 - 32.587 ppm09/16/2025 7:43 AM ESTHealthTrackRx at LabPortTRICHOMONAS YKFARUNFF591.000 - 31.995 ppm 09/16/2025 7:43 AM ESTHealthTrackRx at LabPortTRICHOMONAS VAGINALISNot Ejeztuqa48.000 - 31.995 ppm09/16/2025 7:43 AM ESTHealthTrackRx at [facility] MYCOPLASMA DLTFPDADND589.961 - 24.689 ppm09/16/2025 7:43 AM ESTHealthTrackRx at LabPortMYCOPLASMA GENITALIUMNot Okgftfyw73.961 - 24.689 ppm09/16/2025 7:43 AM ESTHealthTrackRx at LabPortSpecimen (Source)Anatomical Location / LateralityCollection Method / VolumeCollection TimeReceived TimeTissue 09/15/2025 12:50 PM EST09/16/2025 2:42 AM EST Narrative Authorizing ProviderResult TypeResult StatusAmy Anjel JC BLOOD ORDERABLES Final ResultPerforming OrganizationAddressCity/State/ZIP CodePhone Number [facility] [address] [place] [address] documented in this encounter Visit Diagnoses Not on filedocumented in this encounter Care Teams Team MemberRelationshipSpecialtyStart DateEnd Date Sandra Austin, DIRECTOR OF FUNDRAISING [address] [facility] [place] [phone] PCP - General07/19/23documented as of this encounter
--- OUTSIDE RECORDS SUMMARY | 2025-09-30 08:47 | XMS_ITS | Encounter Summary ---
Author Organization [facility] Address [address] [place] [facility] [place] [address] Care Team Providers Care Commercial Airline Pilot Name Role Phone Sandra Austin CRM FUNCTIONAL ANALYST Primary Care Provider Encounter Details DateTypeDepartmentCare Team (Latest Contact Info)Hqlhdeqnare94/20/2025Travel Social History Tobacco UseTypesPacks/DayYears UsedDateSmoking Tobacco: NeverSmokeless Tobacco: NeverAlcohol UseStandard Drinks/WeekCommentsNot Currently0 (1 standard drink = 0.6 oz pure alcohol)CommentsUnknownSex and Gender InformationValueDate RecordedSex Assigned at BirthNot on fileLegal NugBtxafu17/15/2023 7:47 PM EDT Gender IdentityNot on fileSexual OrientationNot on filedocumented as of this encounter Plan of Treatment DateTypeDepartmentCare Team (Latest Contact Info)Vjkhzfpedhg97/24/2026 9:00 AM ESTOffice Visit [facility] [address] [place] [address] Edgar Juárez DO [address] [place] [address] documented as of this encounter Visit Diagnoses Not on filedocumented in this encounter Care Teams Team MemberRelationshipSpecialtyStart DateEnd Date Sandra Austin, CRM FUNCTIONAL ANALYST [address] [facility] [place] [phone] [facility] - General07/19/23documented as of this encounter
--- OUTSIDE RECORDS SUMMARY | 2025-09-30 08:49 | XMS_ITS | Clinical Summary ---
Author Organization [facility] Healthcare Address [address] [place] [address] Care Team Providers Care Program Analyst Name Role Phone Sandra Austin NP Primary Care Provider [phone] Allergies No known active allergies Medications MedicationSigDispense QuantityRefillsLast FilledStart DateEnd DateStatus Natural Vitamin D-3 125 MCG (5000 UT) tablet Take 5,000 Units by mouth in the morning. as directed.3Active Dpwahzla-Bps-Ui-FA ( 1 + IRON PO) Take by mouthActive cetirizine (ZyrTEC) 10 MG tablet Take 10 mg by mouth DailyActive citalopram (CeleXA) 40 MG tablet Indications:Well woman exam with routine gynecological examTake 1 tablet (40 mg) by mouth Daily 30 tablet 11012/21/694509/6Active desogestrel-ethinyl estradiol (Isibloom) 0.15-30 MG-MCG tablet Indications:Well woman exam with routine gynecological examTake 1 tablet by mouth Daily 84 tablet 5Active busPIRone (Buspar) 5 MG tablet Take 5 mg by mouth in the morning and 5 mg before bedtime.Active levothyroxine (Synthroid, Levoxyl) 50 MCG tablet TAKE 1 TABLET BY MOUTH EVERY DAY IN THE MORNING ON EMPTY MXCSUSO12/15/2025Active clobetasol (Temovate) 0.05 % cream Indications:Vaginal itchingApply 1 application topically in the morning and 1 application before bedtime. Do all this for 7 days. Apply to affected area twice a day. 45 g /5Active levothyroxine (Synthroid, Levoxyl) 25 MCG tablet Take 50 mcg by mouth in the morning. Take before meals. Discontinued fluconazole (Diflucan) 150 MG tablet Indications:Vaginal itchingTake 1 tablet (150 mg) by mouth 1 (one) time for 1 dose Repeat in 7 days if symptoms persist. 2 tablet Expired Active Problems ProblemNoted DateDiagnosed DateGastroesophageal reflux qiubszm4808/18/2024Nausea and fzmeweto39/22/2024elvic and perineal pain07/30/2023COS (polycystic ovarian syndrome)07/30/2023Right ear pain07/30/2023re-dvqaazpv83/03/2023Hypothyroid 07/30/2023 Resolved Problems ProblemNoted DateDiagnosed DateResolved Date34 weeks gestation of ([facility]) Encounters DateTypeDepartmentCare ZytqMcsexrtefwa96/03/2025Results Follow-Up [facility] [address] [place] [phone] Christie Gore PA Dermatopathology exam09/27/2025Telephone JESSE LOPEZ [address] [place] [address] [place] [address] Lavinia Peck MA 09/17/2025 10:10 AM ESTOffice Visit [facility] [address] [place] [phone] Christie Gore PA Neoplasm of unspecified behavior of bone, soft tissue, and skin (Primary Dx) 09/17/2025amboo flowsheet [facility] [address] [place] [phone] Christie Gore PA 09/17/20254429Iefouf32/20/8142Qsfqlm34/19/2025 9:30 AM ESTOffice Visit JESSE LOPEZ [address] [place] [phone] Marylou Hobbs PA Vaginal itching; Vaginal /19/2025External Result Encounter [facility] External Department Unsolicited Marylou Hobbs PA 09/15/2025amboo flowsheet [facility] Dipika [facility] [address] [place] [phone] Marylou Hobbs PA 09/14/20253421Dtlxgv67/29/2025Refill [facility] Dipika [facility] [address] [place] [phone] Edgar Juárez, DO Well woman exam with routine gynecological examfrom Last 3 Months Immunizations ImmunizationAdministration DatesNext OpgGUE58/12/2022DTaP, Eiulcdtceub02/18/1999 ,04/27/1998,1997,1997Hep B, Adolescent or Yzpvrmlia1997Hib (HbOC)08/14/1999,1997Hib / Hep B004/27/1998,1997IPV1997, 1997MMR1OPV1Pneumococcal Conjugate PCV 13111/12/2020 Family History Medical HistoryRelationNameCommentsDiabetes type IIFatherGaryHypertensionFather GaryHeart failureMotherCancerPaternal GrandfatherGaryDiabetesPaternal GrandfatherGaryMental illnessPaternal GrandfatherGaryCancerPaternal Grandmother MarciaBipolar disorderSisterKatlynSeizuresSisterKatlynRelationNameStatusComments FatherGaryMotherPaternal GrandfatherGaryPaternal GrandmotherMarciaSisterKatlyn Social History Tobacco UseTypesPacks/DayYears UsedDateSmoking Tobacco: NeverSmokeless Tobacco: Never Tobacco Cessation:Counseling Given: Not Answered Alcohol UseStandard Drinks/WeekCommentsNot Currently0 (1 standard drink = 0.6 oz pure alcohol)CommentsUnknownSex and Gender InformationValueDate Recorded Sex Assigned at BirthNot on fileLegal CdkYzkyzk79/15/2023 7:47 PM EDTGender IdentityNot on fileSexual OrientationNot on file Last Filed Vital Signs Vital SignReadingTime TakenCommentsBlood Kfnjycxi198/7009/15/2025 9:45 AM EST Pulse--Temperature--Respiratory Rate--Oxygen Saturation--Inhaled Oxygen Concentration--Xcwnuc379 kg (264 lb)09/15/2025 9:45 AM WVSJzxwul793 cm (5' 3 ) 08/02/2023 11:20 AM EDTBody Mass Index46.7708/02/2023 11:20 AM EDT Plan of Treatment DateTypeDepartmentCare Team (Latest Contact Info)Uqrpxueorit22/24/2026 9:00 AM ESTOffice Visit [facility] [address] [place] [phone] Edgar Juárez, [address] [place] [address] Procedures Procedure NamePriorityDate/TimeAssociated DiagnosisCommentsSKIN / NAIL BIOPSY Ovflbyq4509/17/2025 10:31 AM EST Neoplasm of unspecified behavior of bone, soft tissue, and skin DERMATOPATHOLOGY IFKOFlfrgqh20/21/2025 12:00 AM EST Neoplasm of unspecified behavior of bone, soft tissue, and skin RECURRENT VAGINITIS (HTRX)Gvqeckx5009/15/2025 12:50 PM EST from Last 3 Months Results * Lesion biopsy (09/17/2025 10:31 AM EST) Narrative Tanya Saez MA - 09/17/2025 10:31 AM EST Type of biopsy: tangential Informed consent: discussed and consent obtained ?? Informed consent comment: ??The risks and benefits of the biopsy were discussed. Risks include but are not limited to bleeding, infection, scarring, pain, and nerve damage.Verbal consent was obtained. Procedure prep: ??Patient was prepped and draped in usual sterile fashion Prep type: ??Isopropyl alcohol Anesthesia: the lesion was anesthetized in a standard fashion ?? Anesthetic: ??1% lidocaine w/ epinephrine 1-100,000 buffered w/ 8.4% NaHCO3 Instrument used: DermaBlade ?? Hemostasis achieved with: aluminum chloride ?? Outcome: patient tolerated procedure well ?? Outcome comment: ??The specimen was placed in a prelabeled formalin container to be sent for pathology Post-procedure details: sterile dressing applied and wound care instructions given ?? Post-procedure details comment: ??Emphasized need to contact clinic for any signs of infection, uncontrollable bleeding, or complications. Dressing type: bandage ?? 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 COMMENT: There are histologic features suggestive of trauma or irritation at this site. [facility] DIAGNOSTICSGross TextAURORA DIAGNOSTICSMicroscopic DescriptionMicroscopic examination performed.JOCELYN FETKJDYMHCASLX54918*1A[facility]A DIAGNOSTICSSpecimen (Source)Anatomical Location / LateralityCollection Method / VolumeCollection TimeReceived TimeSkinTopography unknown / Fhdbkih7909/17/2025 10:31 AM ESTComment: Differential Diagnosis: Inflamed IDN Check Margins: No Size of lesion: 0.5 x 0.6 cm Narrative Authorizing ProviderResult [facility] PATHOLOGY ORDERABLESFinal ResultPerforming OrganizationAddressCity/State/ZIP CodePhone Number [facility] * RECURRENT VAGINITIS (HTRX) (09/15/2025 12:50 PM EST)ComponentValueRef Range Test MethodAnalysis TimePerformed AtPathologist SignatureATOPOBIUM VAGINAE0 19.961 - 24.689 ppm09/16/2025 7:43 AM ESTHealthTrackRx at LabPortATOPOBIUM VAGINAENot Fxaemmwh88.961 - 24.689 ppm09/16/2025 7:43 AM ESTHealthTrackRx at LabPortBVAB 2,3 (BACTERIAL VAGINOSIS ASSOCIATED BACTERIA 2, 3); MOBILUNCUS SPP 019.961 - 24.689 ppm09/16/2025 7:43 AM ESTHealthTrackRx at LabPortBVAB 2,3 (BACTERIAL VAGINOSIS ASSOCIATED BACTERIA 2, 3); MOBILUNCUS SPPNot Detected 19.961 - 24.689 ppm09/16/2025 7:43 AM ESTHealthTrackRx at LabPortCANDIDA ALBICANS, PARAPSILOSIS, GBHMKSNXOA500.000 - 30.347 ppm09/16/2025 7:43 AM EST [facility] at LabPortCANDIDA ALBICANS, PARAPSILOSIS, TROPICALISNot Detected 23.000 - 30.347 ppm09/16/2025 7:43 AM ESTHealthTrackRx at LabPortCANDIDA UTLHYEKY141.000 - 31.618 ppm09/16/2025 7:43 AM ESTHealthTrackRx at LabPort MARYAM GLABRATANot Ppacmgox22.000 - 31.618 ppm09/16/2025 7:43 AM EST [facility] at LabPortCANDIDA SJIHRO084.000 - 30.873 ppm09/16/2025 7:43 AM ESTHealthTrackRx at LabPortCANDIDA KRUSEINot Unknqcsw03.000 - 30.873 ppm 09/16/2025 7:43 AM ESTHealthTrackRx at LabPortCHLAMYDIA MUKMFWUHUGX883.000 - 31.586 ppm09/16/2025 7:43 AM ESTHealthTrackRx at LabPortCHLAMYDIA TRACHOMATIS Not Ismedsgv17.000 - 31.586 ppm09/16/2025 7:43 AM ESTHealthTrackRx at LabPort GARDNERELLA YZBZJIXOE612.961 - 24.689 ppm09/16/2025 7:43 AM ESTHealthTrackRx at LabPortGARDNERELLA VAGINALISNot Zqjyeapx40.961 - 24.689 ppm09/16/2025 7:43 AM ESTHealthTrackRx at LabPortMEGASPHAERA (TYPES 1, 2)019.961 - 24.689 ppm 09/16/2025 7:43 AM ESTHealthTrackRx at LabPortMEGASPHAERA (TYPES 1, 2)Not Rolfbdmj73.961 - 24.689 ppm09/16/2025 7:43 AM ESTHealthTrackRx at LabPort NEISSERIA QCNSZRKMBYT413.000 - 32.587 ppm09/16/2025 7:43 AM ESTHealthTrackRx at LabPortNEISSERIA GONORRHOEAENot Vwpzsrjj47.000 - 32.587 ppm09/16/2025 7:43 AM ESTHealthTrackRx at LabPortTRICHOMONAS UFHHCRCPH958.000 - 31.995 ppm 09/16/2025 7:43 AM ESTHealthTrackRx at LabPortTRICHOMONAS VAGINALISNot Imuzbfzx79.000 - 31.995 ppm09/16/2025 7:43 AM ESTHealthTrackRx at LabPort MYCOPLASMA OYOOASYCYZ823.961 - 24.689 ppm09/16/2025 7:43 AM ESTHealthTrackRx at LabPortMYCOPLASMA GENITALIUMNot Vujtxbff38.961 - 24.689 ppm09/16/2025 7:43 AM ESTHealthTrackRx at LabPortSpecimen (Source)Anatomical Location / LateralityCollection Method / VolumeCollection TimeReceived TimeTissue 09/15/2025 12:50 PM EST09/16/2025 2:42 AM EST Narrative Authorizing ProviderResult TypeResult StatusAmy [facility] BLOOD ORDERABLES Final ResultPerforming OrganizationAddressCity/State/ZIP CodePhone Number [facility] [address] [place] [address] from Last 3 Months Insurance Care Teams Team MemberRelationshipSpecialtyStart DateEnd Date Sandra Austin NP [address] [facility] [place] [phone] [facility]07/19/23
--- OUTSIDE RECORDS SUMMARY | 2025-09-30 08:51 | XMS_ITS | Encounter Summary ---
Author Organization [facility] Address [address] [address] Care Team Providers Care Printing Screen Assembler Name Role Phone Sandra Austin NP Primary Care Provider Encounter Details DateTypeDepartmentCare Team (Latest Contact Info)Jpiqnziecve54/03/2025Results Follow-Up [facility] [address] [place] [address] Christie Gore PA [address] [place] [address] Dermatopathology exam Social History Tobacco UseTypesPacks/DayYears UsedDateSmoking Tobacco: NeverSmokeless Tobacco: NeverAlcohol UseStandard Drinks/WeekCommentsNot Currently0 (1 standard drink = 0.6 oz pure alcohol)CommentsUnknownSex and Gender InformationValueDate RecordedSex Assigned at BirthNot on fileLegal ZukTnfphg38/15/2023 7:47 PM EDT Gender IdentityNot on fileSexual OrientationNot on filedocumented as of this encounter Plan of Treatment DateTypeDepartmentCare Team (Latest Contact Info)Vzmswkitpmn19/24/2026 9:00 AM ESTOffice Visit [facility] [address] [place] [phone] Edgar Juárez DO [address] [facility] [place] [place], [place] [phone] documented as of this encounter Visit Diagnoses Not on filedocumented in this encounter Care Teams Team MemberRelationshipSpecialtyStart DateEnd Date Sandra Austin, BOTTLE FEEDER [address] [place] [phone] PCP - General07/19/23documented as of this encounter
--- OUTSIDE RECORDS SUMMARY | 2025-09-30 08:51 | XMS_ITS | Encounter Summary ---
Author Organization [facility] Address [address] [place] [address] Care Team Providers Care Seating Captain Name Role Phone Sandra Austin NP Primary Care Provider Encounter Details DateTypeDepartmentCare Team (Latest Contact Info)Tudmszfhnhv77/01/2025Telephone [facility] [address] [place] [address] Lavinia Peck MA Social History Tobacco UseTypesPacks/DayYears UsedDateSmoking Tobacco: NeverSmokeless Tobacco: NeverAlcohol UseStandard Drinks/WeekCommentsNot Currently0 (1 standard drink = 0.6 oz pure alcohol)CommentsUnknownSex and Gender InformationValueDate RecordedSex Assigned at BirthNot on fileLegal JobAelfox76/15/2023 7:47 PM EDT Gender IdentityNot on fileSexual OrientationNot on filedocumented as of this encounter Miscellaneous Notes * Telephone Encounter - Lavinia Peck MA - 09/27/2025 2:27 PM EST Per Marylou Pt to trial clobetasol cream for itching. Also ok to send in wellness labs for pt. PVU * Telephone Encounter - Lavinia Peck MA - 09/27/2025 10:54 AM EST Patient called reporting continued vaginal itching. Cultures from 09/15/2025 were negative, though she was given Diflucan to trial. Patient reports the itching fluctuates in severity. She has attempted switching to gentle soaps, wearing loose-fitting clothing, and using a washcloth when bathing, without relief. Patient is unsure whether her A1C, CBC, and TSH should be checked and is requesting guidance on next steps. Advised patient that I will consult with SOLOMON Holloway for further recommendations. Patient verbalized understanding. documented in this encounter Plan of Treatment DateTypeDepartmentCare Team (Latest Contact Info)Puqezrywujw38/24/2026 9:00 AM ESTOffice Visit [facility] Javier [facility] [address] [phone] Edgar Juárez DO [address] [place], [place] [phone] NameTypePriorityAssociated DiagnosesOrder ScheduleTSHLabRoutine Wellness examination Expected: 09/27/2025 (Approximate), Expires: 09/27/2026Lipid panelLabRoutine Wellness examination Expected: 09/27/2025, Expires: 09/27/2026omprehensive metabolic panelLabRoutine Wellness examination Expected: 09/27/2025 (Approximate), Expires: 09/27/2026Hemoglobin P9bRejOzlkxqd Wellness examination Expected: 09/27/2025 (Approximate), Expires: 09/27/2026BC and differentialLab Routine Wellness examination Expected: 09/27/2025 (Approximate), Expires: 09/27/2026documented as of this encounter Visit Diagnoses Diagnosis Vaginal itching Pruritus of genital organs Wellness examination documented in this encounter Care Teams Team MemberRelationshipSpecialtyStart DateEnd Sandra Austin NP [address] [facility] [place] [address] PCP - General07/19/23documented as of this encounter
--- OUTSIDE RECORDS SUMMARY | 2025-09-30 08:51 | XMS_ITS | Encounter Summary ---
Author Organization [facility] Address [address] [facility] [place] [address] Care Team Providers Care Personal Lines Underwriter Name Role Phone Snadra Austin NP Primary Care Provider Encounter Details DateTypeDepartmentCare Team (Latest Contact Info)Idozlhjymrn44/21/2025amboo flowsheet [facility] [address] [place] [address] Christie Gore PA [address] [place] [address] Social History Tobacco UseTypesPacks/DayYears UsedDateSmoking Tobacco: NeverSmokeless Tobacco: NeverAlcohol UseStandard Drinks/WeekCommentsNot Currently0 (1 standard drink = 0.6 oz pure alcohol)CommentsUnknownSex and Gender InformationValueDate RecordedSex Assigned at BirthNot on fileLegal UpuFizfni01/15/2023 7:47 PM EDT Gender IdentityNot on fileSexual OrientationNot on filedocumented as of this encounter Plan of Treatment DateTypeDepartmentCare Team (Latest Contact Info)Nxhxuffnlru56/24/2026 9:00 AM ESTOffice Visit [facility] [address] [place] [address] Edgar Juárez DO [address] [facility] [address] [place], [place] [address] documented as of this encounter Visit Diagnoses Not on filedocumented in this encounter Care Teams Team MemberRelationshipSpecialtyStart DateEnd Date Sandra Austin, MASTER PLANNER [address] [facility] [place] [phone] PCP - General07/19/23documented as of this encounter
--- OUTSIDE RECORDS SUMMARY | 2025-09-30 08:52 | XMS_ITS | CCD ---
Author Organization [facility] Care Team Providers Care Graphic Arts Instructor Name Role Phone [facility] Hospital[facility]oha[facility] Unavailable KAP, SANDRA Primary Care Unavailable MARQUITA ., DR GOLDSMITH Attending Unavailable WEST, DR MANUELITO Foley Consulting Unavailable MARQUITA ., DR GOLDSMITH Admitting Unavailable MARQUITA ., DR GOLDSMITH Consulting Unavailable BRIAN, VIRGINIA Admitting Unavailable VIRGINIA TORRES Attending Unavailable KAP, SANDRA Primary Care Unavailable ELEELE, DR MANUELITO Foley Consulting Unavailable MARQUITA ., [...] Unavailable MARQUITA ., DR GOLDSMITH Attending Unavailable ELEELE, DR MANUELITO Foley Consulting Unavailable MARQUITA ., [...] Unavailable MARQUITA ., DR GOLDSMITH Attending Unavailable ELEELE, DR MANUELITO Foley Consulting Unavailable MARQUITA ., [...] KARASIK ., DR HU Consulting Unavailabl e ELEELE, DR MANUELITO Foley Consulting Unavailable MARQUITA ., DR GOLDSMITH Consulting Unavailable SANDRA AUSTIN Primary Care Unavailable MARQUITA ., DR GOLDSMITH Attending Unavailable ELEELE, DR MANUELITO Foley Consulting Unavailable MARQUITA ., DR GOLDSMITH Admitting Unavailable MARQUITA ., DR GOLDSMITH Consulting Unavailable Ramonita Greenberg Unavailable Geovanna IDENTITY MANAGEMENT CONSULTANT, Sandra Hall Primary Care Provider [phone] MARQUITA, EDGAR Attending Unavailable MARQUITA, EDGAR Attending Unavailable MARQUITA, EDGAR Attending Unavailable ANJEL, MARYLOU Attending Unavailable MARQUITA, EDGAR Attending Unavailable MARQUITA, EDGAR Attending Unavailable MARQUITA, EDGAR Attending Unavailable ANJEL, MARYLOU Attending Unavailable MARQUITA, EDGAR Attending Unavailable MARQUITA, EDGAR Attending Unavailable MARQUITA, EDGAR Attending Unavailable ANJEL, MARYLOU Attending Unavailable ANJEL, MARYLOU Attending Unavailable Blanca Malhotra DO Primary Care Provider Lowell Ambriz APRN Attending Provider Sandra Mcconnell APRN Primary Care Provider Sandra Mcconnell APRN Attending Provider Lowell Ambriz Attending Unavailable Lowell Ambriz Admitting Unavailable Geovanna IDENTITY MANAGEMENT CONSULTANT, Sandra Hall Primary Care Provider Medications Current Medications MedicationDrug Class(es)DatesSig (Normalized)Sig (Original)amoxicillin 500 mg oral capsule (3 sources)Penicillin-class AntibacterialStart: 08-99-4876cdde 1 capsule by mouth every eight hoursAmoxicillin 500 MG 1 capsule Orally three times a day for 10 day(s) Mar, ActiveAscorbic Acid (1 source)Vitamin CVitamin C Activeazithromycin 250 mg oral tablet (1 source)Macrolide AntimicrobialStart: 51-37-5887Furgwyxhd Z-Hollis 250 MG 2 tablets on the first day, then 1 tablet daily for 4 days Orally Once a dayfor 5 day(s) Oct, ActivebusPIRone hydrochloride 5 mg oral tablet (1 source)Start: 33-94-9109parb 1 tablet by mouth twice dailyBuspirone 5 mg tablet Active 5 MG PO Twice daily 60 May 04, 2025 12:00am Complies with drug therapycephalexin 500 mg oral tablet (4 sources)Cephalosporin AntibacterialStart: 91-64-2033olrj 1 tablet by mouth every six hoursCephalexin 500 MG 1 tablet Orally every 6 hrs for 10 day(s) Jan, Activecetirizine hydrochloride 10 mg oral tablet (20 sources)Histamine-1 Receptor AntagonistStart: 60-81-1095osis 3 tablets by mouth once dailyStart: 57-10-0794szkl 30 mg by mouth once dailyCetirizine Active 30 MG PO Daily October 23, 2019 1:00amtake 1 tablet by mouth once daily cetirizine (ZyrTEC) 10 MG tablet Take 10 mg by mouth Daily Activeciprofloxacin 3 mg/ml / dexamethasone 1 mg/ml otic suspension (1 source)Corticosteroid, Quinolone AntimicrobialStart: 27-68-3749Vfmezakqihddq- Dexamethasone 0.3-0.1 % 4 drops into affected ear Otic Twice a day for 7 days Activecitalopram 40 mg oral tablet (20 sources)Serotonin Reuptake InhibitorStart: 36-25-8743xdve 1 tablet by mouth once dailyCitalopram (Celexa) 40 mg tablet Active 40 MG PO Daily May 04, 2025 12:00am Complies with drug therapyStart: 12-17-2024 End: 01-76-9047cnqb 1 tablet by mouth once dailycitalopram (CeleXA) 40 MG tablet Indications: Well woman exam with routine gynecological exam Take 1 tablet (40 mg) by mouth Daily 30 tablet 12/17/2024 01/16/2025 ActiveStart: 11-05-2024 End: 37-67-7792biho 2 tablets by mouth once dailycitalopram (CeleXA) 20 MG tablet Indications: Anxiety, generalized (CMS/HCC) Take 2 tablets (40 mg)by mouth Daily 30 tablet 11 11/05/2024 12/17/2024 Discontinued (Other)Start: 08-04-2024 End: 65-82-0913bmdf 1 tablet by mouth once dailycitalopram (CeleXA) 20 MG tablet Indications: Anxiety, generalized Take 1 tablet (20 mg) by mouth Daily 30 tablet 11 08/04/2024 11/02/2024 Discontinuedtake 1 tablet by mouth every twenty-four hoursCeleXA 20 MG 1 tablet Orally Once a day ActiveCranberry preparation (1 source)Non-Standardized Food Allergenic Extract, Non-Standardized Plant Allergenic ExtractCranberry Activedesogestrel 0.15 mg / ethinyl estradiol 0.03 mg oral tablet (2 sources)Progestin, EstrogenStart: 12-17-2024 End: 14-04-3518zvtn 1 tablet by mouth once daily, then take 1 tablet by mouth once dailydesogestrel-ethinyl estradiol (Apri) 0.15-30 MG-MCG tablet Indications: Well woman exam with routine gynecological exam Take 1 tablet by mouth Daily for 28 days Take 1 tablet by mouth daily 28 lqklyx87 12/17/2024 01/14/2025 ActiveLoratadine (3 sources)Loratadine ActivemetFORMIN hydrochloride 500 mg oral tablet (1 source)Biguanidetake 1 tablet by mouth every twelve hoursmetFORMIN HCl 500 MG 1 tablet with a meal Orally twice a day Activeondansetron 4 mg disintegrating oral tablet (16 sources)Serotonin-3 Receptor AntagonistStart: 08-25-2024 End: 30-23-6937smux 1 tablet by mouth every six hours for nauseaondansetron ODT (Zofran-ODT) 4 MG disintegrating tablet Indications: Nausea and vomiting, unspecified vomiting type Take 1 tablet (4 mg) by mouth every 6 (six) hours if needed for nausea or vomiting 30 tablet 3 08/25/2024 09/24/2024 ActiveStart: 02-13-2024 End: 01-20-8814jblq 1 tablet by mouth every eight hoursOndansetron Hcl 4 mg tablet Discontinued 4 MG PO Every 8 hours February 13, 2024 12:00am May 04 2:12pmpolymyxin b 09193 unt/ml / trimethoprim 1 mg/ml ophthalmic solution (3 sources)Dihydrofolate Reductase Inhibitor Antibacterial, Polymyxin-class AntibacterialStart: 18-34-3725Pwbdjdlxa B-Trimethoprim 88402-1.1 UNIT/ML 1 drop into affected eye Ophthalmic every 3 hours up to six times daily for 7 days Dec, ActivePrenatal (10 sources) ActivePrenatal Cdwcvkcc-Qbd-Pk-FA ( 1 + IRON PO) (20 sources) Tkukjibv-Hhu-Fk-FA ( 1 + IRON PO) Take by mouth ActiveProbiotic (1 source)Probiotic ActiveVitamin D3 125 MCG (5000 UT) (6 sources)Start: 75-06-4643wwgq 1 tablet by mouth once dailyVitamin D3 125 MCG (5000 UT) 1 tablet Orally Once a day for 30 days Jan, ActiveStart: 24-70-5575Vewemqg D3 125 MCG (5000 UT) as directed Orally Once a day for 30 days Jan, ActiveVitamin D3 25 MCG (1000 UT) (2 sources)Start: 88-50-1711iwty 1 tablet by mouth once dailyVitamin D3 25 MCG (1000 UT) 1 tablet Orally Once a day for 30 days May, Active Completed/Discontinued Medications MedicationDrug Class(es)DatesSig (Normalized)Sig (Original){1 (ascorbic acid 7540 MG / polyethylene glycol 3350 03261 MG / potassium chloride 1200 MG / sodiumascorbate 64961 MG / sodium chloride 3200 MG Powder for Oral Solution) / 1 (polyethylene glycol 3350 859622 MG / potassium chloride 1000 MG / sodium chloride 2000 MG / sodium sulfate 9000 MG Powder for Oral Solution) } Pack [Plenvu] (8 sources)Osmotic Laxative, Vitamin CStart: 98-81-7992Copfjm 140 GM DOSE 1 AT 4:00 PM, DOSE 2 POUCH A &B AT 11:00 PM Orally TWICE A DAY for 1 days PLEASE CHECK ALLERGIES Sep, Not-Takingaspirin 81 mg delayed release oral tablet (20 sources)Platelet Aggregation Inhibitor, Nonsteroidal Anti-inflammatory Drug End: 32-88-3950mjjf 1 tablet by mouth once dailyaspirin 81 MG EC tablet Take 81 mg by mouth Daily 11/05/2024 Discontinued (Therapy completed)cefuroxime 500 mg oral tablet (4 sources)Cephalosporin AntibacterialStart: 10-23-2019 End: 30-33-1578qsxe 1 tablet by mouth once dailyCefuroxime Axetil 500 mg tablet Discontinued 500 MG PO Daily October 23, 2019 1:00am January 11:14am cholecalciferol 0.125 mg oral tablet (20 sources)Vitamin DStart: 02-13-2024 End: 51-86-3268ryrd 1 tablet by mouth once dailyCholecalciferol (Vitamin D3) 25 mcg (1,000 unit) tablet Discontinued 0 .ROUTE .COMPLEX 90 February 18, 2024 7:28am August 26, 2024 3:32pm TAKE 1 TABLET BY MOUTH EVERY DAYStart: 02-13-2024 End: 11-90-2802awzf 1 tablet by mouth once dailyCholecalciferol (Vitamin D3) 125 mcg (5,000 unit) tablet Discontinued 0 .ROUTE .COMPLEX 90 June 01, 2024 6:55am February 22, 2025 8:09am TAKE 1 TABLET BY MOUTH EVERY DAYStart: 06-24-2023 take 1 tablet by mouth in the morningNatural Vitamin D-3 125 MCG (5000 UT) tablet Take 5,000 Units by mouth in the morning. as directed.06/24/2023 Active Start: 71-72-0917gkpd 1 tablet by mouth every twenty-four hoursVitamin D3 125 MCG (5000 UT) 1 tablet Orally Once a day for 30 days Jan, ActiveStart: 28-33-9048wchc 1 capsule by mouth every twenty-four hoursVitamin D3 50 MCG (2000 UT) 1 capsule Orally Once a day for 30 days Dec, Activetake 1 tablet by mouth once dailyVitamin D3 25 MCG (1000 UT) TAKE 1 TABLET BY MOUTH EVERY DAY for 90 Activetake 1 capsule by mouth every twenty-four hoursVitamin D3 25 MCG (1000 UT) 1 capsule Orally Once a day Hwohjv06 hr desvenlafaxine succinate 50 mg extended release oral tablet (4 sources)Serotonin and Norepinephrine Reuptake InhibitorStart: 10-23-2019 End: 56-90-9139jvsk 1 tablet by mouth once dailyDesvenlafaxine Succinate 50 mg tablet extended release 24 hr Discontinued 50 MG PO Daily October 23, 2019 1:00am February 13, 2024 11:15amfamotidine 20 mg oral tablet (7 sources)Histamine-2 Receptor AntagonistStart: 08-25-2024 End: 38-37-7069kuqo 1 tablet by mouth once dailyfamotidine (Pepcid) 20 MG tablet Indications: Gastroesophageal Reflux Disease , Heartburn Take 1 tablet (20 mg) by mouth Daily 30 tablet 3 08/25/2024 09/08/2024 Discontinuedfluconazole 150 mg oral tablet (4 sources)Azole AntifungalStart: 10-23-2019 End: 75-83-1412ndly 1 tablet by mouth every weekFluconazole 150 mg tablet Discontinued 150 MG PO every week October 23, 2019 1:00am February 13, 2024 11:15amlevothyroxine sodium 0.05 mg oral tablet (20 sources)l-ThyroxineStart: 03-02-2024 End: 18-12-6295tpax 1 tablet by mouth once daily in the morningLevothyroxine 50 mcg tablet Discontinued 0 .ROUTE .COMPLEX August 31, 2024 8:27am January 9:13am TAKE 1 TABLET BY MOUTH EVERY DAY IN THE MORNING ON EMPTY STOMACHStart: 02-13-2024 End: 76-36-5989atur 1 tablet by mouth once daily in the morningLevothyroxine 50 mcg tablet Discontinued 1 TAB PO Daily February 13, 2024 12:00am March 02, 2024 11:02am FreeTextSi tablet in the morning on an empty stomach Orally Once a day; Note: Source Status:Taking; Refills: 4; Qty: 30 Tablet; Provider: Geovanna Flores MStart: 43-03-6293cxdk 2 tablets by mouth before mealtimelevothyroxine (Synthroid, Levoxyl) 25 MCG tablet Take 50 mcg by mouth in the morning. Take before meals. 05/24/2023 ActiveStart: 46-57-0771hode 1 tablet by mouth before mealtimelevothyroxine (Synthroid, Levoxyl) 25 MCG tablet Take 25 mcg by mouth in the morning. Take before meals. 05/24/2023 Activetake 1 tablet by mouth once daily in the morningLevothyroxine Sodium 50 MCG 1 tablet in the morning on an empty stomach Orally Once a day for 30 days Activetake 1 tablet by mouth once daily in the morningLevothyroxine Sodium 50 MCG 1 tablet in the morning on an empty stomach Orally Once a day for 30 days Activetake 1 tablet by mouth once daily in the morningLevothyroxine Sodium 25 MCG TAKE ONE TABLET BY MOUTH DAILY ON AN EMPTY STOMACH IN THE MORNING for 30 Activemagnesium oxide 400 mg oral tablet (17 sources) End: 20-24-9267mzvp 1 tablet by mouth at bedtimemagnesium oxide (Mag-Ox) 400 mg tablet Take 400 mg by mouth at bedtime 11/05/2024 Discontinued (Therapy completed)methylPREDNISolone 4 mg oral tablet (3 sources)CorticosteroidStart: 04-27-2025 End: 17-57-5706Mqfhhlmlytutgvxauf 4 mg tablets,dose pack Discontinued 0 PO per package directions April 27, 2025 12:00am May 04, 2025 2:12pm PO PER PKG DIR for 6 daysomeprazole 20 mg delayed release oral capsule (20 sources)Proton Pump InhibitorStart: 08-18-2024 End: 85-95-4711oilp 2 capsules by mouth before mealtimeomeprazole (PriLOSEC) [address] capsule Indications: Heartburn during in third trimester ([facility]) Take 2 capsules (40 mg) by mouth in the morning. Take before meals. Do not crush or chew.. 60 capsule 11 08/18/2024 09/01/2024 DiscontinuedStart: 03-02-2024 End: 23-89-7725ehiq 1 capsule by mouth before mealtimeomeprazole (PriLOSEC) [address] capsule Indications: Heartburn during in third trimester Take 1 capsule (20 mg) by mouth in the morning. Take before meals. Do not crush or chew.. 30 capsule 11 03/02/2024 08/18/2024 Discontinuedpantoprazole 20 mg delayed release oral tablet (10 sources)Proton Pump InhibitorStart: 09-02-2024 End: 71-79-5632havf 1 tablet by mouth before mealtimepantoprazole (Protonix) 20 MG EC tablet Indications: Heartburn during in third trimester Take 1 tablet (20 mg) by mouth in the morning. Take before meals. Do not crush, chew, or split.. 30 tablet 11 09/02/2024 11/05/2024 Discontinued (Therapy completed) Problems Active Problems Problem ClassificationProblemDateDocumented DateEpisodic/ChronicAbdominal pain (20 sources)Left lower quadrant pain; Translations: [Abdominal pain]Onset: 716715-20-2513ZmswkcxeMwitzyjj reactions (5 sources)Atopic dermatitis; Translations: [Other atopic dermatitis]Chronic Anxiety disorders (20 sources)Anxiety; Translations: [Anxiety disorder, unspecified]Onset: 12-21-2021 Resolved: 01-28-7913PudcdqfUojosrc obstructive pulmonary disease and bronchiectasis (1 source)Bronchitis, not specified as acute or chronicEpisodicEsophageal disorders (20 sources)Gastro-esophageal reflux disease without esophagitis; Translations: [Gastroesophageal reflux disease]Onset: 759303-97-8661YpnfxsjWgxkxqkhsfbp complicating ; childbirth and the puerperium (8 sources)Unspecified maternal hypertension, third trimester; Translations: [Unspecified pre-existing hypertension complicating , third trimester] Onset: 17-68-7579KsezipnKbgnjouqqnax; infection of eye (except that caused by tuberculosis or sexually transmitteddisease) (1 source)Unspecified conjunctivitisEpisodicMood disorders (2 sources)Depressive disorder; Translations: [Depression]84-99-2538Hhpmzoh Nonmalignant breast conditions (1 source)Mastitis without abscessEpisodicNutritional deficiencies (16 sources)Vitamin D deficiency; Translations: [Vitamin D deficiency, unspecified]Onset: 63-50-4613ZyicwpmVmnfr complications of (2 sources)Heartburn; Translations: [Other specified related conditions, third trimester]70-47-3483PtsguibmPmpuc ear and sense organ disorders (1 source)Unspecified acute noninfective otitis externa, bilateralEpisodicOther endocrine disorders (20 sources)Polycystic ovary syndrome; Translations: [Polycystic ovarian syndrome]Onset: 529228-66-2804XcjzhmlXsnnk endocrine disorders (4 sources)Polycystic ovarian syndromeOnset: 12-21-2021 Resolved: 84-21-9487LuvyqteOjpso gastrointestinal disorders (4 sources)Diarrhea; Translations: [Diarrhea, unspecified]87-13-3171Dzzfrgtf Other liver diseases (5 sources)Abnormal levels of other serum enzymes; Translations: [ABNORMAL LEVELS OTHER SERUM ENZYMES]Onset: 47-18-1686SsgyiyjmArref nutritional; endocrine; and metabolic disorders (11 sources)Body mass index 30+ - obesity; Translations: [Body mass index (BMI) 38.0-38.9, adult]ChronicOther nutritional; endocrine; and metabolic disorders (1 source)Body mass index (BMI) 38.0-38.9, adultOnset: 12-21-2021 Resolved: 76-03-4098AgvhcatUoqmt nutritional; endocrine; and metabolic disorders (10 sources)Body mass index 40+ - severely obese; Translations: [Morbid (severe) obesity due to excess calories]ChronicOther nutritional; endocrine; and metabolic disorders (3 sources)Morbid (severe) obesity due to excess caloriesChronicOther and delivery including normal (20 sources)Encounter for care and examination of lactating mother; Translations: [Encounter for routine follow-up]Onset: 09-10-2022 EpisodicOther upper respiratory infections (6 sources)Acute pharyngitis, unspecified; Translations: [Streptococcal pharyngitis]Onset: 43-59-4879TslbpfmzQwxlpiak codes; unclassified (4 sources)Gestation period, 8 weeks; Translations: [8 weeks gestation of ]41-84-5084JzgjuxmrCgdvmwfh codes; unclassified (1 source)8 weeks gestation of ; Translations: [ state, incidental]82-54-4906AspuakcyCzggkaqj codes; unclassified (2 sources)Gestation period, 32 weeks; Translations: [32 weeks gestation of ]72-38-0805RaohasefIjastmsu codes; unclassified (2 sources)Gestation period, 36 weeks; Translations: [36 weeks gestation of ]44-53-7862QdfojijvVxfffqow codes; unclassified (2 sources)Gestation period, 38 weeks; Translations: [38 weeks gestation of ]09-41-4805SplnkmztYvdkgqxi codes; unclassified (2 sources)Gestation period, 37 weeks; Translations: [37 weeks gestation of ]05-52-4096GzntjlgmAegivooztvi; intervertebral disc disorders; other back problems (5 sources)Low back pain; Translations: [Low back pain]61-38-7747MfuikopmIxejwrq disorders (20 sources)Hypothyroidism; Translations: [Other specified hypothyroidism]Onset: 12-21-2021 Resolved: 75-20-5736HeqkqtbXechjkucbfbm (1 source)CONTACT W/AND (SUSP) EXPOS COVID-19; Translations: [CONTACT W/AND (SUSP) EXPOS COVID-19]Onset: 09-17-2022 Past or Other Problems Problem ClassificationProblemDateDocumented DateEpisodic/ChronicDiabetes mellitus without complication (20 sources)Prediabetes; Translations: [Prediabetes]Onset: 12-21-2021 Resolved: 57-45-6560GosoyfigUfgzygnpqfymn and screening for infectious disease (4 sources)Encounter for screening for infections with a predominantly sexual mode of transmission; Translations: [ENC SCREEN INFECTIONS SEXL TRANSMS]Onset: 46-70-0387BhgcdfktBjodvl and vomiting (20 sources)Nausea and vomiting; Translations: [Nausea with vomiting, unspecified]Onset: 515035-96-3932HivjyqpyDW-kiovpke trauma to perineum and vulva (1 source)Second degree perineal laceration during delivery; Translations: [SECOND DEG PERINEAL LAC DUR DELIV]Onset: 96-09-9076KaoypxhnJanqy circulatory disease (4 sources)Elevated blood-pressure reading, without diagnosis of hypertension; Translations: [ELEVATED BP READING W/O DX HTN]Onset: 25-14-8252CgdixlfmCidvn complications of ; puerperium affecting management of mother (1 source)Endocrine, nutritional and metabolic diseases complicating childbirth; Translations: [ENDOCRN NUTR MET DZ COMP CHILDBIRTH]Onset: 25-51-8828Kqmhroiu Other complications of ; puerperium affecting management of mother (1 source)Diseases of the digestive system complicating childbirth; Translations: [DZ DIGESTIVE SYSTEM COMP CHILDBIRTH]Onset: 16-48-9787Ikubcdjt Other complications of (4 sources)Maternal care for excessive growth, third trimester, not applicable or unspecified; Translations: [MAT CARE EXCSS FTL GRTH 3RD TRI UNS] Onset: 70-33-1701SjnawtirDziyi complications of (2 sources)Other specified related conditions, third trimester; Translations: [OTH SPEC PREG RELATEDCOND 3RD TRI]Onset: 90-85-1456TydvabnnSfpkc complications of (4 sources)Endocrine, nutritional and metabolic diseases complicating , unspecified trimester; Translations: [ENDOCRN NUTR MET DZ COMP PG UNS TRI]Onset: 38-27-4077RsjshoqoWkenv complications of (1 source)Endocrine, nutritional and metabolic diseases complicating , third trimester; Translations: [ENDOCRN NUTR MET DZ COMP PG 3RD TRI]Onset: 68-63-6147QufgvitpUyviq complications of (4 sources)Decreased movements, third trimester, not applicable or unspecified; Translations: [DECR MOVEMENTS 3RD TRI NA/UNS]Onset: 77-01-1673BttwxtfdIdcqd ear and sense organ disorders (20 sources)Otalgia, right ear; Translations: [Otalgia, unspecified]Onset: 00-12-9861HvehvtwfLrthk female genital disorders (1 source)Other specified noninflammatory disorders of vagina; Translations: [OTH SPEC NONINFLAMMATORY D/O VAGINA]Onset: 81-75-9617ZbzdeepeObvju female genital disorders (13 sources)Pelvic and perineal pain; Translations: [Pelvic and perineal pain] Onset: 762872-37-7487SebsoqjoLndjy screening for suspected conditions (not mental disorders or infectious disease) (20 sources)Encounter for screening for malignant neoplasm of cervix; Translations: [Encounter for screening for Streptococcus B]Onset: 87-28-9394SlwgjjkpGqrqlcoq codes; unclassified (1 source)39 weeks gestation of ; Translations: [39 WEEKS GESTATION OF ]Onset: 79-23-8630YsftxcuwTjmglsnu codes; unclassified (1 source)38 weeks gestation of ; Translations: [38 WEEKS GESTATION OF ]Onset: 64-93-5851YorgbmgkUqpwwwle codes; unclassified (1 source)37 weeks gestation of ; Translations: [37 WEEKS GESTATION OF ]Onset: 03-24-1878QydibehnSdnlusrw codes; unclassified (1 source)36 weeks gestation of ; Translations: [36 WEEKS GESTATION OF ]Onset: 42-01-5477YheapgvmKllvqotb codes; unclassified (1 source)35 weeks gestation of ; Translations: [35 WEEKS GESTATION OF ]Onset: 32-72-3446GqofpbstHvnbuhrd codes; unclassified (1 source)32 weeks gestation of ; Translations: [32 WEEKS GESTATION OF ]Onset: 80-46-1593NkzqfqcoWtmttbah codes; unclassified (1 source)28 weeks gestation of ; Translations: [28 WEEKS GESTATION OF ]Onset: 22-19-4491TngjjawgQtsetfrr codes; unclassified (20 sources)Gestation period, 34 weeks; Translations: [34 weeks gestation of ]Onset: 08-18-2024 Resolved: 302092-52-0942RporrbyqRqablgox codes; unclassified (2 sources)Gestation period, 28 weeks; Translations: [28 weeks gestation of ]32-47-8551WfgysxjiTxbhpjj disorders (5 sources)Disorder of thyroid, unspecified; Translations: [DISORDER OF THYROID UNSPECIFIED]Onset: 22-98-0453Lkmeypmw Results Test NameValueInterpretationReference RangeFacilityAerobic throat cultureOrdered By: Lowell Ambriz on 67-23-8783Mfllioke identified Aer cx Nom (Throat)2 Days [facility] HealthNo Panel InformationOrdered By: Lowell Ambriz on 93-21-9916Iipya Strep (POC)[facility] HealthThroat Cultureon 52-87-7447Dgcwxp cultureModerate Normal Respiratory Koki 2 Days PERFORMED BY: [place] [address] PATHOLOGIST FULL DECATOR OPERATOR KATHRYN ABERNATHY M.D.NormalThe Carolinas [facility] Physician GroupComment on above: Performed By: #### CUT #### [place] [address] USAIGP,APTIMA HPV,AGE GDLNon 41-17-9359TKM GDLN ACOG TESTING Note.NOMS HealthcareComment on above:TESTS RESULT FLAG UNITS REF RANGE LAB Clinician Provided Cytology Information Source.............Cervix;Endocervix No. of containers..01 ThinPrep Vial Age Algo ACOG Leslye... FLAG LEGEND: L-Low Normal,H-High Normal,LL-Alert Low,HH-Alert High <-Panic Low,>-Panic High,A-Abnormal,AA-Critical Abnormal Performed at: 01 =G [facility] [address] Heavenly Serrano MD, IGP, RFX APTIMA HPV ASCUNote.NOMS HealthcareComment on above:TESTS RESULT FLAG UNITS REF RANGE LAB DIAGNOSIS: 02 NEGATIVE FOR INTRAEPITHELIAL LESION OR MALIGNANCY. Specimen adequacy: 02 Satisfactory for evaluation. Endocervical and/or squamous metaplastic cells (endocervical component) are present. Performed by: Troy Duran, Mechanical Piping Designer ([facility]) . 02 Note: Note 02 The Pap smear is a screening test designed to aid in the detection of premalignant and malignant conditions of the uterine cervix. It is not a diagnostic procedure and should not be used as the sole means of detecting cervical cancer. Both false-positive and false-negative reports do occur. Test Methodology: Note 02 This liquid based ThinPrep(R) pap test was screened with the use of an image guided system. . 02 The HPV DNA reflex criteria were not met with this specimen result therefore, no HPV testing was performed. FLAG LEGEND: L-Low Normal,H-High Normal,LL-Alert Low,HH-Alert High <-Panic Low,>-Panic High,A-Abnormal,AA-Critical Abnormal Performed at: [address] [facility] [address] Heavenly Serrano MD, Performed at: = - [facility] [address] [id number] Access Rep: Heavenly Serrano MD, Phone: [phone] Performed at: [facility] [id number] Access Rep: Heavenly Serrano MD, Phone: [phone] BRUSH-SPATULA CERVIX ENDOCERVIX CLINISYNCNOMS HealthcareALL CBC WITH AUTO DIFFon 97-20-1850BEUIKSDBV ABSOLUTE [id number] HealthcareBasophils/100 WBC (Bld)0.2 %0.2 - 2.0 %[facility] Eosinophils/100 WBC (Bld)0.7 %Low0.9 - 7.0 %NOMS HealthcareErythrocyte distribution width (RBC) [Ratio]13.2 %11.0 - 15.0 %NOMS HealthcareHematocrit (Bld) [Volume fraction]30.8 %Low36.0 - 48.0 %NOMS HealthcareHemoglobin (Bld) [Mass/Vol]10.2 g/dLLow12.0 - 16.0 g/dLNOMS HealthcareIMMATURE GRANULOCYTES ABS AUTO0.07HighNOMS HealthcareImmature granulocytes/100 WBC (Bld)0.6 %High0.0 - 0.5 %NOMS HealthcareInterpretation and review of laboratory resultsAbnormalNOVA HealthcareLYMPHOCYTES ABSOLUTE AUTO2.2NOMS HealthcareLymphocytes/100 WBC (Bld) 17.7 %Low20.5 - 60.0 %[facility] (RBC) [Entitic mass]31.6 pg26.7 - 34.0 pgSSM Health Care (RBC) [Mass/Vol]33.1 g/dL29.9 - 35.2 g/dLPhelps Health MCV (RBC) [Entitic vol]95.4 fL81.0 - 99.0 fLPhelps HealthMONOCYTES ABSOLUTE AUTO0.9HighPhelps HealthMonocytes/100 WBC (Bld)7.1 %1.7 - 12.0 %[facility]ps HealthNEUTROPHILS ABSOLUTE MZSY7VecuZMXS HealthcareNeutrophils/100 WBC (Bld) 73.7 %43.0 - 75.0 %Phelps HealthPlatelet mean volume (Bld) [Entitic vol]11.3 fL9.5 - 13.5 fLPhelps HealthTB EO #0.1NOMS [facility] AkronTB TTT487HQOZCooper County Memorial Hospital RBC3.23LowNOCooper County Memorial Hospital WBC12.2HighPhelps HealthCLINISYNC [facility] CBC WITH PLATELET NO DIFFERENTIALon 21-52-7997Gdczrjaunwr distribution width (RBC) [Ratio]13.2 %11.0 - 15.0 %Phelps HealthHematocrit (Bld) [Volume fraction]34.7 %Low36.0 - 48.0 %[facility]helps HealthHemoglobin (Bld) [Mass/Vol]11.7 g/dLLow12.0 - 16.0 g/dLPhelps HealthInterpretation and review of laboratory resultsAbnormalCedar County Memorial Hospital (RBC) [Entitic mass]32 pg26.7 - 34.0 pgSSM Health Care (RBC) [Mass/Vol]33.7 g/dL29.9 - 35.2 g/dLGeneral Leonard Wood Army Community HospitalV (RBC) [Entitic vol]94.8 fL81.0 - 99.0 fLPhelps HealthPlatelet mean volume (Bld) [Entitic vol]11.4 fL9.5 - 13.5 fLSalem Memorial District Hospital [id number] [facility] RBC3.66LowNOCooper County Memorial Hospital WBC9.9Phelps HealthCLINISYNCNTULSA ER & HOSPITAL [facility]UL[facility] HealthcareUS OB BPP W NON-STRESSon 62-66-3623HojJoshua [place] [id number] Ultrasound Report Signed Patient: SOFIA FORBES MR#: [id number] : 1995 Acct:[id number] Age/Sex: 29 / F ADM Date: 09/16/24 Loc: US Attending Dr: Edgar Juárez D.O. Ordering Physician: Edgar Juárez D.O. Date of Service: 09/16/24 Procedure(s): US OB BPP w non-stress Accession Number(s): [id number] cc: Edgar Juárez D.O.; Physician,Non-Staff Jone The [address] [address] Patient Name: SOFIA FORBES MRN: [id number] date: 1995 Sex: F Assigned Patient Location: [facility] Current Patient Location: US Accession/Order Number: [id number] Exam Date: 09/16/2024 15:07 Report Date: 09/17/2024 04:18 At the request of: EDGAR JUÁREZ Procedure: US OB BPP w non-stress [...] biophysical profile score: 8 Electronically authenticated by: RAGINI SANTOS Date: 09/17/2024 04:18 Dictated By: Ragini Santos M.D. Signed By: 09/17/24 0425 DD/ 0418 TD/TT: Water Tanker Driver:MARIELLEHRadiology, Radiologist, MD - 09/17/2024 The [place] [id number] Ultrasound Report Signed Patient: SOFIA FORBES MR#: [id number] : 1995 Acct:[id number] Age/Sex: 29 / F ADM Date: 09/16/24 Loc: US Attending Dr: Edgar Juárez D.O. Ordering Physician: Edgar Juárez D.O. Date of Service: 09/16/24 Procedure(s): US OB BPP w non-stress Accession Number(s): [id number] cc: Edgar Juárez D.O.; Physician,Non-Staff Jone [place] [address] Patient Name: SOFIA FORBES MRN: [id number] date: 1995 Sex: F Assigned Patient Location: [facility] Current Patient Location: US Accession/Order Number: [id number] Exam Date: 09/16/2024 15:07 Report Date: 09/17/2024 04:18 At the request of: EDGAR JUÁREZ Procedure: US OB BPP w non-stress [...] biophysical profile score: 8 Electronically authenticated by: RAGINI SANTOS Date: 09/17/2024 04:18 Dictated By: Ragini Santos M.D. Signed By: 09/17/24 0425 DD/ 0418 TD/TT: Water Tanker Driver: JESSE HealthcareRadiology Study observation (narrative)JESSE PedrazaUS OB BPP W NON-STRESSOrdered By: Radiologist Radiology on 53-89-4547FWQU Healthcare Work Phone: Urinalysis macro (dipstick) panel (U)on 11-18-2024 Bilirubin, UANegativeNegative - 4(70) +++ mg/dLNOMS HealthcareBlood, UANegative Negative - 50 Jose Manuel/mcLNOMS HealthcareClarity, UAClearNOMS HealthcareColor, UA YellowNOMS HealthcareGlucose, UANegativeNegative - 2000(110) ++++ mg/dLNOMS HealthcareInterpretation and review of laboratory resultsNormalNOMS Healthcare Ketones, UANegativeNegative - 160(16) ++++ mg/dLNOMS HealthcareLeukocytes, UA NegativeNegative - 500+++ Alexys/mcLNOMS HealthcareNitrite, UANegativeNegative - PositiveNOMS HealthcarepH, UA5.55 - 9NOMS HealthcareProtein, UANegativeNegative - 2000(20) ++++ mg/dLNOMS HealthcareSpec Grav, UA1.011 - 1.03N[facility] Healthcare Urobilinogen, UA0.20.2 - 12 mg/dLNOMS HealthcareNOMS HealthcareUS OB BPP W NON-STRESSon 46-89-3904[place]mdEll[place], [place] [address] Ultrasound Report Signed Patient: SOFIA FORBES MR#: [id number] : 1995 Acct:[id number] Age/Sex: 29 / F ADM Date: 09/09/24 Loc: US Attending Dr: Edgar Juárez D.O. Ordering Physician: Edgar Juárez D.O. Date of Service: 09/09/24 Procedure(s): US OB BPP w non-stress Accession Number(s): [id number] cc: Edgar Juárez D.O.; Physician,Non-Staff M.DWill The [place] [id number] Patient Name: SOFIA FORBES MRN: [id number]:[id number] date: 1995 Sex: F Assigned Patient Location: [facility] Current Patient Location: Accession/Order Number: [id number] Exam Date: 09/09/2024 15:45 Report Date: 09/10/2024 06:38 At the request of: EDGAR JUÁREZ Procedure: US OB BPP w non-stress [...] biophysical profile score: 8 Electronically authenticated by: RAGINI SANTOS Date: 09/10/2024 06:38 Dictated By: Ragini Santos M.D. Signed By: 09/10/24640 DD/ 7 TD/TT: Water Tanker Driver:TBHRadiology, Radiologist, MD - 09/10/2024 [place] [address] Ultrasound Report Signed Patient: SOFIA FORBES MR#: [id number] : 1995 Acct:[id number] Age/Sex: 29 / F ADM Date: 09/09/24 Loc: US Attending Dr: Edgar Juárez D.O. Ordering Physician: Edgar Juárez D.O. Date of Service: 09/09/24 Procedure(s): US OB BPP w non-stress Accession Number(s): [id number] cc: Edgar Juárez D.O.; Physician,Non-Staff M.Tyler The [place] [id number] Patient Name: SOFIA FORBES MRN: [id number] date: 1995 Sex: F Assigned Patient Location: [facility] Current Patient Location: Accession/Order Number: [id number] Exam Date: 09/09/2024 15:45 Report Date: 09/10/2024 06:38 At the request of: EDGAR JUÁREZ Procedure: US OB BPP w non-stress [...] biophysical profile score: 8 Electronically authenticated by: RAGINI SANTOS Date: 09/10/2024 06:38 Dictated By: Ragini Santos M.D. Signed By: 09/10/24640 DD/ 7 TD/TT: Water Tanker Driver: [facility] HealthcareRadiology Study observation (narrative)NOMS HealthcareUS OB BPP W NON-STRESSOrdered By: Radiologist Radiology on 04-66-7233TYBR Healthcare Work Phone: Urinalysis macro (dipstick) panel (U)on 09-08-2024 Bilirubin, UANegativeNegative - 4(70) +++ mg/dLNOMS HealthcareBlood, UANegative Negative - 50 Jose Manuel/mcLNOMS HealthcareClarity, UAClearNOMS HealthcareColor, UA YellowNOMS HealthcareGlucose, UANegativeNegative - 2000(110) ++++ mg/dLNOMS HealthcareInterpretation and review of laboratory resultsAbnormalNOMS Healthcare Ketones, UANegativeNegative - 160(16) ++++ mg/dLNOMS HealthcareLeukocytes, UA TraceNegative - 500+++ Alexys/mcLNOMS HealthcareNitrite, UANegativeNegative - PositiveNOMS HealthcarepH, UA5.55 - 9NOMS HealthcareProtein, UANegativeNegative - 2000(20) ++++ mg/dLNOMS HealthcareSpec Grav, UA1.0051 - 1.03N[facility] Urobilinogen, UA0.20.2 - 12 mg/dLNOMS HealthcareNOMS HealthcareUS OB BPP W NON-STRESSon 09-65-3418[address] [address] Ultrasound Report Signed Patient: SOFIA FORBES MR#: [id number] : 1995 Acct:[id number] Age/Sex: 29 / F ADM Date: 09/02/24 Loc: US Attending Dr: Edgar Juárez D.O. Ordering Physician: Edgar Juárez D.O. Date of Service: 09/02/24 Procedure(s): US OB BPP w non-stress Accession Number(s): [id number] cc: Edgar Juárez D.O.; Physician,Non-Staff Jone The [address] [address] Patient Name: SOFIA FORBES MRN: [facility]:[id number] date: 1995 Sex: F Assigned Patient Location: [facility] Current Patient Location: Accession/Order Number: [id number] Exam Date: 09/02/2024 15:30 Report Date: 09/03/2024 04:09 At the request of: EDGAR JUÁREZ Procedure: US OB BPP w non-stress [...] biophysical profile score: 8 Electronically authenticated by: RAGINI SANTOS Date: 09/03/2024 04:09 Dictated By: Ragini Santos M.D. Signed By: 09/03/24 0411 DD/ 0409 TD/TT: Water Tanker Driver:MARIELLEHRadiology, Radiologist, MD - 09/03/2024 [place] [address] Ultrasound Report Signed Patient: SOFIA FORBES MR#: [id number] : 1995 Acct:[id number] Age/Sex: 29 / F ADM Date: 09/02/24 Loc: US Attending Dr: Edgar Juárez D.O. Ordering Physician: Edgar Juárez D.O. Date of Service: 09/02/24 Procedure(s): US OB BPP w non-stress Accession Number(s): [id number] cc: Edgar Juárez D.O.; Physician,Non-Staff Jone [place] [phone] Patient Name: SOFIA FORBES MRN: [facility]:[id number] date: 1995 Sex: F Assigned Patient Location: [facility] Current Patient Location: Accession/Order Number: [id number] Exam Date: 09/02/2024 15:30 Report Date: 09/03/2024 04:09 At the request of: EDGAR JUÁREZ Procedure: US OB BPP w non-stress [...] biophysical profile score: 8 Electronically authenticated by: RAGINI SANTOS Date: 09/03/2024 04:09 Dictated By: Ragini Santos M.D. Signed By: 09/03/24 0411 DD/ 8 TD/TT: Water Tanker Driver: JESSE HealthcareRadiology Study observation (narrative)JESSE PedrazaUS OB BPP W NON-STRESSOrdered By: Radiologist Radiology on 59-80-9289DCXR [facility] Work Phone: Urinalysis macro (dipstick) panel (U)on 09-01-2024 Bilirubin, UANegativeNegative - 4(70) +++ mg/dLNOMS HealthcareBlood, UANegative Negative - 50 Jose Manuel/mcLNOMS HealthcareClarity, UAClearNOMS HealthcareColor, UA YellowNOMS HealthcareGlucose, UANegativeNegative - 2000(110) ++++ mg/dLNOMS HealthcareInterpretation and review of laboratory resultsAbnormalNOMS Healthcare Ketones, UANegativeNegative - 160(16) ++++ mg/dLNOMS HealthcareLeukocytes, UA TraceNegative - 500+++ Alexys/mcLNOMS HealthcareNitrite, UANegativeNegative - PositiveNOMS HealthcarepH, UA75 - 9NOMS HealthcareProtein, UANegativeNegative - 2000(20) ++++ mg/dLNOMS HealthcareSpec Grav, UA1.0151 - 1.03N[facility] Urobilinogen, UA0.20.2 - 12 mg/dLNOMS HealthcareNOMS HealthcareALL THYROID STIM HORMONEon 27-35-4412ZWP Qn0.716 m[IU]/LNOMS HealthcareCLINISYNCNOMS HealthcareUS OB BPP W NON-STRESSon 61-17-3316[place]ji[place], [place] [address] Ultrasound Report Signed Patient: SOFIA FORBES MR#: [id number] : 1995 Acct:[id number] Age/Sex: 29 / F ADM Date: 08/26/24 Loc: US Attending Dr: Edgar Juárez D.O. Ordering Physician: Edgar Juárez D.O. Date of Service: 08/26/24 Procedure(s): US OB BPP w non-stress Accession Number(s): [id number] cc: Edgar Juárez D.O.; SANDRA AUSTIN [place] [phone] Patient Name: SOFIA FORBES MRN: [id number]:[id number] date: 1995 Sex: F Assigned Patient Location: US Current Patient Location: Accession/Order Number: [id number] Exam Date: 08/26/2024 15:05 Report Date: 08/27/2024 04:27 At the request of: EDGAR JUÁREZ Procedure: US OB BPP w non-stress [...] biophysical profile score: 8 Electronically authenticated by: RAGINI SANTOS Date: 08/27/2024 04:27 Dictated By: Ragini Santos M.D. Signed By: 08/27/24429 DD/ 6 TD/TT: Water Tanker Driver:MARIELLEHRadiology, Radiologist, - 08/27/2024 [place] [address] Ultrasound Report Signed Patient: SOFIA FORBES MR#: [id number] : 1995 Acct:[id number] Age/Sex: 29 / F ADM Date: 08/26/24 Loc: US Attending Dr: Edgar Juárez D.O. Ordering Physician: dEgar Juárez D.O. Date of Service: 08/26/24 Procedure(s): US OB BPP w non-stress Accession Number(s): [id number] cc: Edgar Juárez D.O.; SANDRA AUSTIN [place] [address] Patient Name: SOFIA FORBES MRN: [facility]:[id number] date: 1995 Sex: F Assigned Patient Location: US Current Patient Location: Accession/Order Number: [id number] Exam Date: 08/26/2024 15:05 Report Date: 08/27/2024 04:27 At the request of: EDGAR JUÁREZ Procedure: US OB BPP w non-stress [...] biophysical profile score: 8 Electronically authenticated by: RAGINI SANTOS Date: 08/27/2024 04:27 Dictated By: Ragini Santos M.D. Signed By: 08/27/24429 DD/ 6 TD/TT: Water Tanker Driver: JESSE HealthcareRadiology Study observation (narrative)NOMS HealthcareUS OB BPP W NON-STRESSOrdered By: Radiologist Radiology on 03-94-0768TLIJ Healthcare Work Phone: US OB BPP W NON-STRESSon 96-05-0945[place], [place] [address] Ultrasound Report Signed Patient: SOFIA FORBES MR#: [id number] : 1995 Acct:[id number] Age/Sex: 29 / F ADM Date: 08/19/24 Loc: US Attending Dr: Edgar Juárez D.O. Ordering Physician: Edgar Juárez D.O. Date of Service: 08/19/24 Procedure(s): US OB BPP w non-stress Accession Number(s): [id number] cc: Edgar Juárez D.O.; SANDRA AUSTIN [place] [address] Patient Name: SOFIA FORBES MRN: [facility]:[id number] date: 1995 Sex: F Assigned Patient Location: [facility] Current Patient Location: Accession/Order Number: [id number] Exam Date: 08/19/2024 14:05 Report Date: 08/19/2024 16:18 At the request of: EDGAR JUÁREZ Procedure: US OB BPP w non-stress [...] biophysical profile score: 8 Electronically authenticated by: RAGINI SANTOS Date: 08/19/2024 16:18 Dictated By: Ragini Santos M.D. Signed By: 08/19/24 1620 DD/ 1618 TD/TT: Water Tanker Driver:TBHRadiology, Radiologist, MD - 08/19/2024 [place] [address] Ultrasound Report Signed Patient: SOFIA FORBES MR#: [id number] : 1995 Acct:[id number] Age/Sex: 29 / F ADM Date: 08/19/24 Loc: US Attending Dr: Edgar Juárez D.O. Ordering Physician: Edgar Juárez D.O. Date of Service: 08/19/24 Procedure(s): US OB BPP w non-stress Accession Number(s): [id number] cc: Edgar Juárez D.O.; SANDRA AUSTIN The [place] [phone] Patient Name: SOFIA FORBES MRN: [id number] date: 1995 Sex: F Assigned Patient Location: [facility] Current Patient Location: Accession/Order Number: [id number] Exam Date: 08/19/2024 14:05 Report Date: 08/19/2024 16:18 At the request of: EDGAR JUÁREZ Procedure: US OB BPP w non-stress [...] biophysical profile score: 8 Electronically authenticated by: RAGINI SANTOS Date: 08/19/2024 16:18 Dictated By: Ragini Santos M.D. Signed By: 08/19/24 1620 DD/ 1618 TD/TT: Water Tanker Driver: JESSE HealthcareRadiology Study observation (narrative)NOMS HealthcareUS OB BPP W NON-STRESSOrdered By: Radiologist Radiology on 84-88-6798NBRI [facility] Work Phone: US OB GROWTHon 55-24-3808SebEll[place], [place] [address] Ultrasound Report Signed Patient: SOFIA FORBES MR#: [id number] : 1995 Acct:[id number] Age/Sex: 29 / F ADM Date: 08/18/24 Loc: JESSE Attending Dr: Edgar Juárez D.O. Ordering Physician: Edgar Juárez D.O. Date of Service: 08/18/24 Procedure(s): US OB growth Accession Number(s): [id number] cc: Edgar Juárez D.O.; SANDRA AUSTIN [place] [phone] Patient Name: SOFIA FORBES MRN: [id number] date: 1995 Sex: F Assigned Patient Location: [facility] Current Patient Location: [facility] Accession/Order Number: [id number] Exam Date: 08/18/2024 13:20 Report Date: 08/18/2024 13:54 At the request of: EDGAR JUÁREZ Procedure: US OB growth EXAMINATION: US OB growth HISTORY: ABNORMAL THYROID STIMULATING HORMONE COMPARISON: No relevant comparison available. FINDINGS: Heart Rate: 136 bpm Amniotic Fluid Volume: 14.0 cm, largest fluid pocket 4.0 cm Number: 1 Position: Cephalic presentation, longitudinal lie BIOMETRY: BPD: 8.48 cm; 34 weeks 1 day; 37.70 % HC: 31.84 cm; 35 weeks 6 days; 46.70 % AC: 34.48 cm; 38 weeks 3 days; >97 % FL: 6.67 cm; 34 weeks 2 days; 34.60 % EFW: 2957.30 g; 94 %, 6 lbs. 10 oz. FL/AC: 19.34 FL/BPD: 78.66 HC/AC: 0.92 GESTATIONAL AGE: Age by EDC: 34 weeks 4 days HERNANDO by EDC: 2024-09-25 Age by US: 35 weeks 5 days HERNANDO by US: 2024-09-17 US/US OB growth IMPRESSION: Abdominal circumference greater than the 97th percentile Estimated weight at the 94th percentile Electronically authenticated by: MANUELITO HOGAN Date: 08/18/2024 13:54 Dictated By: Manuelito Hogan M.D. Signed By: 08/18/241356 DD/ 53 TD/TT: Water Tanker Driver:MARIELLEHRadiology, Radiologist, - 08/18/2024 [place] [address] Ultrasound Report Signed Patient: SOFIA FORBES MR#: [id number] : 1995 Acct:[id number] Age/Sex: 29 / F ADM Date: 08/18/24 Loc: NOMS Attending Dr: Edgar Juárez D.O. Ordering Physician: Edgar Juárez D.O. Date of Service: 08/18/24 Procedure(s): US OB growth Accession Number(s): [id number] cc: Edgar Juárez D.O.; SANDRA AUSTIN The [place] [address] Patient Name: SOFIA FORBES MRN: [id number] date: 1995 Sex: F Assigned Patient Location: [facility] Current Patient Location: [facility] Accession/Order Number: [id number] Exam Date: 08/18/2024 13:20 Report Date: 08/18/2024 13:54 At the request of: EDGAR JUÁREZ Procedure: US OB growth EXAMINATION: US OB growth HISTORY: ABNORMAL THYROID STIMULATING HORMONE COMPARISON: No relevant comparison available. FINDINGS: Heart Rate: 136 bpm Amniotic Fluid Volume: 14.0 cm, largest fluid pocket 4.0 cm Number: 1 Position: Cephalic presentation, longitudinal lie BIOMETRY: BPD: 8.48 cm; 34 weeks 1 day; 37.70 % HC: 31.84 cm; 35 weeks 6 days; 46.70 % AC: 34.48 cm; 38 weeks 3 days; >97 % FL: 6.67 cm; 34 weeks 2 days; 34.60 % EFW: 2957.30 g; 94 %, 6 lbs. 10 oz. FL/AC: 19.34 FL/BPD: 78.66 HC/AC: 0.92 GESTATIONAL AGE: Age by EDC: 34 weeks 4 days HERNANDO by EDC: 2024-09-25 Age by US: 35 weeks 5 days HERNANDO by US: 2024-09-17 US/US OB growth IMPRESSION: Abdominal circumference greater than the 97th percentile Estimated weight at the 94th percentile Electronically authenticated by: MANUELITO HOGAN Date: 08/18/2024 13:54 Dictated By: Manuelito Hogan M.D. Signed By: 08/18/24 1357 DD/ 1354 TD/TT: Water Tanker Driver: JESSE HealthcareRadiology Study observation (narrative)[facility]hel[facility] HealthUS OB GROWTHOrdered By: Radiologist Radiology on 41-06-1077DZJTPhelps Health Work Phone: Urinalysis macro (dipstick) panel (U)on 08-18-2024 Bilirubin, UANegativeNegative - 4(70) +++ mg/dLNOMS HealthcareBlood, UANegative Negative - 50 Jose Manuel/mcLNOMS HealthcareClarity, UAClearNOMS HealthcareColor, UA YellowNOMS HealthcareGlucose, UANegativeNegative - 2000(110) ++++ mg/dLNOMS HealthcareInterpretation and review of laboratory resultsNormalNOMS Healthcare Ketones, UANegativeNegative - 160(16) ++++ mg/dLNOMS HealthcareLeukocytes, UA NegativeNegative - 500+++ Alexys/mcLNOMS HealthcareNitrite, UANegativeNegative - PositiveNOMS HealthcarepH, UA6.55 - 9NOMS HealthcareProtein, UANegativeNegative - 2000(20) ++++ mg/dLNOMS HealthcareSpec Grav, UA1.011 - 1.03[facility] Urobilinogen, UA0.20.2 - 12 mg/dLNOMS HealthcareNOMS HealthcareUS OB BPP W NON-STRESSon 07-33-1083[place], [place] [address] Ultrasound Report Signed Patient: SOFIA FORBES MR#: [id number] : 1995 Acct:[id number] Age/Sex: 29 / F ADM Date: 08/12/24 Loc: [facility] 250-[address]: Edgar Juárez D.O. Ordering Physician: Edgar Juárez D.O. Date of Service: 08/12/24 Procedure(s): US OB BPP w non-stress Accession Number(s): [id number] cc: Edgar Juárez D.O.; SANDRA AUSTIN [place] [address] Patient Name: SOFIA FORBES MRN: [id number] date: 1995 Sex: F Assigned Patient Location: [facility] Current Patient Location: [facility] Accession/Order Number: [id number] Exam Date: 08/12/2024 14:03 Report Date: 08/12/2024 14:32 At the request of: EDGAR JUÁREZ Procedure: US OB BPP w non-stress [...] profile score: 8 Electronically authenticated by: MANUELITO HOGAN Date: 08/12/2024 14:32 Dictated By: Manuelito Hogan M.D. Signed By: 08/12/24 1435 DD/ 31 TD/TT: Water Tanker Driver:Marcellus Sylvester MD - 08/12/[address] [address] Ultrasound Report Signed Patient: SOFIA FORBES MR#: [id number] : 1995 Acct:[id number] Age/Sex: 29 / F ADM Date: 08/12/24 Loc: [facility] 250-[address]: Edgar Juárez D.O. Ordering Physician: Edgar Juárez D.O. Date of Service: 08/12/24 Procedure(s): US OB BPP w non-stress Accession Number(s): [id number] cc: Edgar Juárez D.O.; SANDRA AUSTIN [address] [address] Patient Name: SOFIA FORBES MRN: [id number] date: 1995 Sex: F Assigned Patient Location: [facility] Current Patient Location: [facility] Accession/Order Number: [id number] Exam Date: 08/12/2024 14:03 Report Date: 08/12/2024 14:32 At the request of: EDGAR JUÁREZ Procedure: US OB BPP w non-stress [...] profile score: 8 Electronically authenticated by: MANUELITO HOGAN Date: 08/12/2024 14:32 Dictated By: Manuelito Hogan M.D. Signed By: 08/12/24 1435 DD/ 31 TD/TT: Water Tanker Driver: [facility] HealthcareRadiology Study observation (narrative)NOMS HealthcareUS OB BPP W NON-STRESSOrdered By: Radiologist Radiology on 09-51-0104ZFFF Healthcare Work Phone: aLL THYROID STIM HORMONEon 92-92-2453CIA Qn1.227 m[IU]/LNOMS HealthcareCLINISYNCNOMS HealthcareUS OB BPP W NON-STRESSon 44-29-8027[place], [place] [address] Ultrasound Report Signed Patient: SOFIA FORBES MR#: [id number] : 1995 Acct:[id number] Age/Sex: 29 / F ADM Date: 08/05/24 Loc: US Attending Dr: Edgar Juárez D.O. Ordering Physician: Edgar Juárez D.O. Date of Service: 08/05/24 Procedure(s): US OB BPP w non-stress Accession Number(s): [id number] cc: Edgar Juárez D.O.; SANDRA AUSTIN [place] [phone] Patient Name: SOFIA FORBES MRN: [id number] date: 1995 Sex: F Assigned Patient Location: [facility] Current Patient Location: [facility] Accession/Order Number: [id number] Exam Date: 08/05/2024 14:00 Report Date: 08/05/2024 15:21 At the request of: EDGAR JUÁREZ Procedure: US OB BPP w non-stress [...] biophysical profile score: 8 Electronically authenticated by: RAGINI SANTOS Date: 08/05/2024 15:21 Dictated By: Ragini Santos M.D. Signed By: 08/05/241523 DD/ 20 TD/TT: Water Tanker Driver:MARIELLEHRadiology, Radiologist, - 08/05/2024 [place] [address] Ultrasound Report Signed Patient: SOFIA FORBES MR#: [id number] : 1995 Acct:[id number] Age/Sex: 29 / F ADM Date: 08/05/24 Loc: US Attending Dr: Edgar Juárez D.O. Ordering Physician: Edgar Juárez D.O. Date of Service: 08/05/24 Procedure(s): US OB BPP w non-stress Accession Number(s): [id number] cc: Edgar Juárez D.O.; SANDRA AUSTIN The [place] [address] Patient Name: SOFIA FORBES MRN: [id number] date: 1995 Sex: F Assigned Patient Location: [facility] Current Patient Location: [facility] Accession/Order Number: [id number] Exam Date: 08/05/2024 14:00 Report Date: 08/05/2024 15:21 At the request of: EDGAR JUÁREZ Procedure: US OB BPP w non-stress [...] biophysical profile score: 8 Electronically authenticated by: RAGINI SANTOS Date: 08/05/2024 15:21 Dictated By: Ragini Santos M.D. Signed By: 08/05/24 1524 DD/ 1521 TD/TT: Water Tanker Driver: [facility] HealthcareRadiology Study observation (narrative)[facility] HealthcareUS OB BPP W NON-STRESSOrdered By: Radiologist Radiology on [id number] Work Phone: Urinalysis macro (dipstick) panel (U)on 08-04-2024 Bilirubin, UANegativeNegative - 4(70) +++ mg/dLNOMS HealthcareBlood, UANegative Negative - 50 Jose Manuel/mcLNOMS HealthcareClarity, UAClearNOMS HealthcareColor, UA YellowNOMS HealthcareGlucose, UANegativeNegative - 2000(110) ++++ mg/dLNOMS HealthcareInterpretation and review of laboratory resultsAbnormalNOMS Healthcare Ketones, UANegativeNegative - 160(16) ++++ mg/dLNOMS HealthcareLeukocytes, UA TraceNegative - 500+++ Alexys/mcLNOMS HealthcareNitrite, UANegativeNegative - PositiveNOMS HealthcarepH, UA7.05 - 9NOMS HealthcareProtein, UANegativeNegative - 2000(20) ++++ mg/dLNOMS HealthcareSpec Grav, UA1.0151 - 1.03[facility] Urobilinogen, UA0.20.2 - 12 mg/dLNOMS HealthcareNOVA HealthcareUrinalysis macro (dipstick) panel (U)on 28-20-7772Trqslkbrl, UANegativeNegative - 4(70) +++ mg/dL N[facility] HealthcareBlood, UANegativeNegative - 50 Jose Manuel/mcLNOMS HealthcareClarity, UA ClearNOMS HealthcareColor, UAYellowNOMS HealthcareGlucose, UANegativeNegative - 2000(110) ++++ mg/dLNOMS HealthcareInterpretation and review of laboratory resultsNormalNOMS HealthcareKetones, UANegativeNegative - 160(16) ++++ mg/dLNOMS HealthcareLeukocytes, UANegativeNegative - 500+++ Alexys/mcLNOMS Healthcare Nitrite, UANegativeNegative - PositiveNOMS HealthcarepH, UA6.55 - 9NOMS HealthcareProtein, UANegativeNegative - 2000(20) ++++ mg/dLNOMS HealthcareSpec Grav, UA1.0051 - 1.03NOMS HealthcareUrobilinogen, UA0.20.2 - 12 mg/dLNOMS HealthcareNOMS HealthcareUS OB GROWTHon 00-23-3606[place], [place] [address] Ultrasound Report Signed Patient: SOFIA FORBES MR#: [id number] : 1995 Acct:[id number] Age/Sex: 29 / F ADM Date: 07/07/24 Loc: [facility] Attending Dr: Edgar Juárez D.O. Ordering Physician: Edgar Juárez D.O. Date of Service: 07/07/24 Procedure(s): US OB growth Accession Number(s): [id number] cc: Edgar Juárez D.O.; SANDRA AUSTIN [place] [address] Patient Name: SOFIA FORBES MRN: [id number] date: 1995 Sex: F Assigned Patient Location: [facility] Current Patient Location: [facility] Accession/Order Number: [id number] Exam Date: 07/07/2024 08:30 Report Date: 07/07/2024 12:45 At the request of: EDGAR JUÁREZ Procedure: US OB growth EXAMINATION: US [...] above. Electronically authenticated by: RAGINI SANTOS Date: 07/07/2024 12:45 Dictated By: Ragini Santos M.D. Signed By: 07/07/24 1248 DD/ 1245 TD/TT: Water Tanker Driver:TBHRadiology, Radiologist, - 07/07/2024 [place] [address] Ultrasound Report Signed Patient: SOFIA FORBES MR#: [id number] : 1995 Acct:[id number] Age/Sex: 29 / F ADM Date: 07/07/24 Loc: [facility] Attending Dr: Edgar Juárez D.O. Ordering Physician: Edgar Juárez D.O. Date of Service: 07/07/24 Procedure(s): US OB growth Accession Number(s): [id number] cc: Edgar Juárez D.O.; SANDRA [place] [address] Patient Name: SOFIA FORBES MRN: [facility]:[id number] date: 1995 Sex: F Assigned Patient Location: [facility] Current Patient Location: [facility] Accession/Order Number: [id number] Exam Date: 07/07/2024 08:30 Report Date: 07/07/2024 12:45 At the request of: EDGAR JUÁREZ Procedure: US OB growth EXAMINATION: US [...] above. Electronically authenticated by: RAGINI SANTOS Date: 07/07/2024 12:45 Dictated By: Ragini Santos M.D. Signed By: 07/07/24 1248 DD/ 1245 TD/TT: Water Tanker Driver: [facility] HealthcareRadiology Study observation (narrative)[facility] HealthUS OB GROWTHOrdered By: Radiologist Radiology on 80-42-0705[facility] Work Phone: Urinalysis macro (dipstick) panel (U)on 07-07-2024 Bilirubin, UANegativeNegative - 4(70) +++ mg/dLNOMS HealthcareBlood, UANegative Negative - 50 Jose Manuel/mcLNOVA HealthcareClarity, UAClearNOMS HealthcareColor, UA YellowNOMS HealthcareGlucose, UANegativeNegative - 2000(110) ++++ mg/dLNOVA HealthcareInterpretation and review of laboratory resultsNormalNOVA Healthcare Ketones, UANegativeNegative - 160(16) ++++ mg/dLNOMS HealthcareLeukocytes, UA NegativeNegative - 500+++ Alexys/mcLNOVA HealthcareNitrite, UANegativeNegative - PositiveNOMS HealthcarepH, UA6.55 - 9NOMS HealthcareProtein, UANegativeNegative - 2000(20) ++++ mg/dLNOMS HealthcareSpec Grav, UA1.0151 - 1.03[facility] Urobilinogen, UA0.20.2 - 12 mg/dLNOMS HealthcareNOMS HealthcareALL CBC WITH AUTO DIFFon 73-31-5422SBSTNSRXQ ABSOLUTE AUTO0.0NOMS HealthcareBasophils/100 WBC (Bld)0.1 %Low0.2 - 2.0 %NOM HealthcareEosinophils/100 WBC (Bld)0.6 %Low0.9 - 7.0 %NOMS HealthcareErythrocyte distribution width (RBC) [Ratio]13.2 %11.0 - 15.0 %NOMS HealthcareHematocrit (Bld) [Volume fraction]33.1 %Low36.0 - 48.0 % NOMS HealthcareHemoglobin (Bld) [Mass/Vol]11.2 g/dLLow12.0 - 16.0 g/dLNOVA HealthcareIMMATURE GRANULOCYTES ABS AUTO0.06HighNOVA HealthcareImmature granulocytes/100 WBC (Bld)0.6 %High0.0 - 0.5 %NOMS HealthcareInterpretation and review of laboratory resultsAbnormalNOVA HealthcareLYMPHOCYTES ABSOLUTE AUTO2.0 NOMS HealthcareLymphocytes/100 WBC (Bld)20.6 %20.5 - 60.0 %NOMS HealthcareMCH (RBC) [Entitic mass]32.5 pg26.7 - 34.0 pgNOVA HealthcareMCHC (RBC) [Mass/Vol] 33.8 g/dL29.9 - 35.2 g/dLNOVA HealthcareMCV (RBC) [Entitic vol]95.9 fL81.0 - 99.0 fLNOVA HealthcareMONOCYTES ABSOLUTE AUTO0.4NOMS HealthcareMonocytes/100 WBC (Bld)4.1 %1.7 - 12.0 %NOMS HealthcareNEUTROPHILS ABSOLUTE AUTO7.0HighNOMS HealthcareNeutrophils/100 WBC (Bld)74.0 %43.0 - 75.0 %NOMS HealthcarePlatelet mean volume (Bld) [Entitic vol]11.5 fL9.5 - 13.5 fLNOMS HealthcareTBH EO #0.1 NOMS HealthcareTBH FFG226FXSO HealthcareTB RBC3.45LowNOMS HealthcareTB WBC9.5 NOMS HealthcareCLINISYNCNOMS HealthcareNo Panel InformationOrdered By: Radiologist Radiology on 71-89-4294[facility] Work Phone: No Panel Informationon 17-43-3481Itgynoatr Study observation (narrative)NOMS HealthcareUS OB ANATOMYon 12-41-[address] [address] Ultrasound Report Signed Patient: SOFIA FORBES MR#: [id number] : 1995 Acct:[id number] Age/Sex: 28 / F ADM Date: 05/12/24 Loc: [facility] Attending Dr: Edgar Juárez D.O. Ordering Physician: Edgar Juárez D.O. Date of Service: 05/12/24 Procedure(s): US OB anatomy Accession Number(s): [id number] cc: Edgar Juárez D.O.; SANDRA AUSTIN [place] [address] Patient Name: SOFIA FORBES MRN: [id number] date: 1995 Sex: F Assigned Patient Location: [facility] Current Patient Location: [facility] Accession/Order Number: [id number] Exam Date: 05/12/2024 08:32 Report Date: 05/12/2024 09:42 At the request of: EDGAR JUÁREZ Procedure: US OB anatomy EXAMINATION: US [...] cm in length Electronically authenticated by: MANUELITO HOGAN Date: 05/12/2024 09:42 Dictated By: Manuelito Hogan M.D. Signed By: 05/12/2444 DD/ TD/TT: Water Tanker Driver:ALECIAadiology, Radiologist, - 05/12/2024 [place] [address] Ultrasound Report Signed Patient: SOFIA FORBES MR#: [id number] : 1995 Acct:[id number] Age/Sex: 28 / F ADM Date: 05/12/24 Loc: [facility] Attending Dr: Edgar Juárez D.O. Ordering Physician: Edgar Juárez D.O. Date of Service: 05/12/24 Procedure(s): US OB anatomy Accession Number(s): [id number] cc: Edgar Juárez D.O.; SANDRA AUSTIN [place] [address] Patient Name: SOFIA FORBES MRN: [id number] date: 1995 Sex: F Assigned Patient Location: [facility] Current Patient Location: [facility] Accession/Order Number: [id number] Exam Date: 05/12/2024 08:32 Report Date: 05/12/2024 09:42 At the request of: EDGAR JUÁREZ Procedure: US OB anatomy EXAMINATION: US [...] cm in length Electronically authenticated by: MANUELITO HOGAN Date: 05/12/2024 09:42 Dictated By: Manuelito Hogan M.D. Signed By: 05/12/2444 DD/ TD/TT: Water Tanker Driver: JESSE Lilly OB CERVICAL LENGTHon 23-86-1479[place], [place] [address] Ultrasound Report Signed Patient: SOFIA FORBES MR#: [id number] : 1995 Acct:[id number] Age/Sex: 28 / F ADM Date: 05/12/24 Loc: [facility] Attending Dr: Edgar Juárez D.O. Ordering Physician: Edgar Juárez D.O. Date of Service: 05/12/24 Procedure(s): US OB cervical length Accession Number(s): [id number] cc: Edgar Juárez D.O.; SANDRA AUSTIN [place] [address] Patient Name: SOFIA FORBES MRN: [id number] date: 1995 Sex: F Assigned Patient Location: [facility] Current Patient Location: [facility] Accession/Order Number: [id number] Exam Date: 05/12/2024 08:32 Report Date: 05/12/2024 09:42 At the request of: EDGAR JUÁREZ Procedure: US OB cervical length EXAMINATION: [...] cm in length Electronically authenticated by: MANUELITO HOGAN Date: 05/12/2024 09:42 Dictated By: Manuelito Hogan M.D. Signed By: 05/12/24 0944 DD/ TD/TT: Water Tanker Driver:TBHRadiology, Radiologist, MD - 05/12/2024 [place] [address] Ultrasound Report Signed Patient: SOFIA FORBES MR#: [id number] : 1995 Acct:[id number] Age/Sex: 28 / F ADM Date: 05/12/24 Loc: [facility] Attending Dr: Edgar Juárez D.O. Ordering Physician: Edgar Juárez D.O. Date of Service: 05/12/24 Procedure(s): US OB cervical length Accession Number(s): [id number] cc: Edgar Juárez D.O.; SANDRA AUSTIN [place] [phone] Patient Name: SOFIA FORBES MRN: [id number] date: 1995 Sex: F Assigned Patient Location: [facility] Current Patient Location: [facility] Accession/Order Number: [id number] Exam Date: 05/12/2024 08:32 Report Date: 05/12/2024 09:42 At the request of: EDGAR JUÁREZ Procedure: US OB cervical length EXAMINATION: [...] cm in length Electronically authenticated by: MANUELITO HOGAN Date: 05/12/2024 09:42 Dictated By: Manuelito Hogan M.D. Signed By: 05/12/2444 DD/ TD/TT: Water Tanker Driver: NOMS HealthcareUS OB L= 14 WEEKS FETUSon 31-45-5120[place], [place] [address] Ultrasound Report Signed Patient: SOFIA FORBES MR#: [id number] : 1995 Acct:[id number] Age/Sex: 28 / F ADM Date: 03/16/24 Loc: US Attending Dr: Edgar Juárez D.O. Ordering Physician: Edgar Juárez D.O. Date of Service: 03/16/24 Procedure(s): US OB <= 14 weeks fetus Accession Number(s): [id number] cc: Edgar Juárez D.O.; SANDRA AUSTIN [place] [phone] Patient Name: SOFIA FORBES MRN: [id number] date: 1995 Sex: F Assigned Patient Location: US Current Patient Location: US Accession/Order Number: [id number] Exam Date: 03/16/2024 14:25 Report Date: 03/16/2024 15:31 At the request of: EDGAR JUÁREZ Procedure: US OB <= 14 weeks [...] 2. No suspicious findings. Electronically authenticated by: RAGINI SANTOS Date: 03/16/2024 15:31 Dictated By: Ragini Santos M.D. Signed By: 03/16/241533 DD/ 1531 TD/TT: Water Tanker Driver:ALECIAadiology, Radiologist, - 03/16/2024 [place] [address] Ultrasound Report Signed Patient: SOFIA FORBES MR#: [id number] : 1995 Acct:[id number] Age/Sex: 28 / F ADM Date: 03/16/24 Loc: US Attending Dr: Edgar Juárez D.O. Ordering Physician: Edgar Juárez D.O. Date of Service: 03/16/24 Procedure(s): US OB <= 14 weeks fetus Accession Number(s): [id number] cc: Edgar Juárez D.O.; SANDRA AUSTIN [place] [phone] Patient Name: SOFIA FORBES MRN: [id number] date: 1995 Sex: F Assigned Patient Location: US Current Patient Location: US Accession/Order Number: [id number] Exam Date: 03/16/2024 14:25 Report Date: 03/16/2024 15:31 At the request of: EDGAR JUÁREZ Procedure: US OB <= 14 weeks [...] 2. No suspicious findings. Electronically authenticated by: RAGINI SANTOS Date: 03/16/2024 15:31 Dictated By: Ragini Santos M.D. Signed By: 03/16/24 1534 DD/ 153 TD/TT: Water Tanker Driver: JESSE HealthcareRadiology Study observation (narrative)JESSE HealthcareUS OB L= 14 WEEKS FETUSOrdered By: Radiologist Radiology on 85-57-9601[facility] Work Phone: US OB TRANSVAGINALon 32-96-4417[place]rn[place], [place] [address] Ultrasound Report Signed Patient: SOFIA FORBES MR#: [id number] : 1995 Acct:[id number] Age/Sex: 28 / F ADM Date: 02/14/24 Loc: [facility] Attending Dr: Edgar Juárez D.O. Ordering Physician: Edgar Juárez D.O. Date of Service: 02/14/24 Procedure(s): US OB transvaginal Accession Number(s): [id number] cc: Edgar Juárez D.O.; SANDRA AUSTIN [place] [address] Patient Name: SOFIA FORBES MRN: [id number] date: 1995 Sex: F Assigned Patient Location: [facility] Current Patient Location: [facility] Accession/Order Number: [id number] Exam Date: 02/14/2024 10:30 Report Date: 02/14/2024 11:25 At the request of: EDGAR JUÁREZ Procedure: US OB transvaginal EXAMINATION: US [...] Single live intrauterine . Electronically authenticated by: RAGINI SANTOS Date: 02/14/2024 11:25 Dictated By: Ragini Santos M.D. Signed By: 02/14/24 1127 DD/ 1125 TD/TT: Water Tanker Driver:TBHRadiology, Radiologist, - 02/14/2024 [place] [address] Ultrasound Report Signed Patient: SOFIA FORBES MR#: [id number] : 1995 Acct:[id number] Age/Sex: 28 / F ADM Date: 02/14/24 Loc: [facility] Attending Dr: Edgar Juárez D.O. Ordering Physician: Edgar Juárez D.O. Date of Service: 02/14/24 Procedure(s): US OB transvaginal Accession Number(s): [id number] cc: Edgar Juárez D.O.; SANDRA AUSTIN [place] [phone] Patient Name: SOFIA FORBES MRN: [id number] date: 1995 Sex: F Assigned Patient Location: [facility] Current Patient Location: [facility] Accession/Order Number: [id number] Exam Date: 02/14/2024 10:30 Report Date: 02/14/2024 11:25 At the request of: EDGAR JUÁREZ Procedure: US OB transvaginal EXAMINATION: US [...] Single live intrauterine . Electronically authenticated by: RAGINI SANTOS Date: 02/14/2024 11:25 Dictated By: Ragini Santos M.D. Signed By: 02/14/24 1127 DD/ 1125 TD/TT: Water Tanker Driver: JESSE HealthcareRadiology Study observation (narrative)[facility] HealthcareUS OB TRANSVAGINALOrdered By: Radiologist Radiology on 83-48-7189[facility] Work Phone: Human papilloma virus 16+18+31+33+35+39+45+51+52+56+58+59+66+68 DNA [Presence] in Anders 16-46-9090HTY 16+18+31+33+35+39+45+51+52+56+58+59+66+68 DNA Probe+sig amp Ql (Cvx)Note. Wilson HealthComment on above:TESTS RESULT FLAG UNITS REF RANGE LAB DIAGNOSIS: 02 NEGATIVE FOR INTRAEPITHELIAL LESION OR MALIGNANCY.Specimen adequacy: 02 Satisfactory forevaluation. Endocervical and/or squamous metaplastic cells (endocervical component) are present.Performed by: Troy Duran, Mechanical Piping Designer ([facility]). 02Note: Note 02 The Pap smear is a screening test designed to aid in the detection of premalignant and malignant conditions of the uterine cervix. It is not a diagnostic procedure and should not be used as the sole means of detecting cervical cancer. Both false-positive and false-negative reports do occur.Test Methodology: Note 02 The [employer]ornado(R) Manager Occupational was unable to read this specimen. Therefore a manual review was performed. FLAG LEGEND: L-Low Normal,H-High Normal,LL-Alert Low,HH-Alert High <-Panic Low,>-Panic High,A-Abnormal,AA-Critical Abnormal Performed at:[address] [address] Heavenly Serrano MD, . 02 The HPV DNA reflex criteria were not met with this specimen result therefore, no HPV testing was performed.The HPV DNA reflex criteria were not met with this specimenresult therefore, no HPV testing was performed.Performed at: = - [facility] [id number] Director: Heavenly Serraon MD, Phone: [phone] at: [facility] [id number] Director: Heavenly Serrano MD, Phone: [phone] No Panel Informationon 70-52-7073Qqkipzeiy Lab Test Patient AgeNote.Wilson HealthComment on above:TESTS RESULT FLAG UNITS REF RANGE LAB Clinician Provided Cytology Information Source.............Cervix No. of containers..01 ThinPrep VialAge Zhen PUENTES Leslye... FLAG LEGEND: L- Low Normal,H-High Normal,LL-Alert Low,HH-Alert High <-Panic Low,>-Panic High,A-Abnormal,AA-Critical Abnormal Performed at:01 [address] [address] Heavenly Serrano MD, W7Q HEMOGLOBINon 76-29-2847RdD4p (Bld) [Mass fraction]5.8 %[facility] Other HbA1c (Bld) [Mass fraction]on 10-60-4376K6Y HEMOGLOBIN [facility] Other a1c HEMOGLOBINon 01-95-9155JbX6l (Bld) [Mass fraction] 5.2 %[facility] Other HbA1c (Bld) [Mass fraction]on 24-72-3070V8D HEMOGLOBIN [facility] Other quick Strepon 04-15-2023S. pyogenes Org specific cx Ql (Throat)PositiveAllentown [facility] Other Quick StrepNoYorn Other FREE T4on 04-53-0166Wudi T4 [Mass/Vol]0.89 ng/dLNormal 0.76-1.46The [facility] CenterComment on above:Performed By: #### HH #### [facility] [address] [place] [address] Dr. Bella JeromePROPaola 14(COMP METB)on 73-91-1672Oitsheu [Mass/Vol]3.7 g/dLNormal 3.4-5.0The [facility]ittman Hospitalment on above:Performed By: #### HH #### [facility] [address] [place] [address] Dr. Bella JeromeAlbumin/Globulin [Mass ratio]0.9 {ratio}NormalThe [facility] Health CenterComment on above:Performed By: #### HH #### [facility] [address] [place] [address] [address] Bella Iraheta [Catalytic activity/Vol]132 U/LCritically pegp35-880Vie [facility] CenterComment on above:Performed By: #### HH #### [facility] [address] [place] [address] [address] Bella WuT [Catalytic activity/Vol]32 U/CEicygf16-65Mgg [facility] CenterComment on above:Performed By: #### HH #### [facility] [address] [place] [address] [address] Bella Bernal gap [Moles/Vol]12.8 mmol/LNormalThe [facility] Comment on above:Performed By: #### HH #### [facility] [address] [place] [address] Dr. Bella JeromeAST [Catalytic activity/Vol]23 U/VFkmhvs83-40Wzd [facility] CenterComment on above:Performed By: #### HH #### [facility] [address] [place] [address] Dr. Bella JeromeBilirubin [Mass/Vol]0.6 mg/dLNormal0.2-1.0[facility] Comment on above:Performed By: #### HH #### [facility] [address] [place] [address] Dr. Bella JeromeCalcium [Mass/Vol]9.0 mg/dLNormal8.5-10.1[facility] Comment on above:Performed By: #### HH #### [facility] [address] [place] [address] Dr. Bella JeromeChloride [Moles/Vol]102 mmol/TSzmsjk40-267Fmp [facility] Comment on above:Performed By: #### HH #### [facility] [address] [place] [address] Dr. Bella JeromeCO2 [Moles/Vol]28.2 mmol/BXiuinx54.0-32.0The [facility] Comment on above:Performed By: #### HH #### [facility] [address] [place] [address] [address] Bella JeromeCreatinine [Mass/Vol]0.67 mg/dLNormal0.55-1.02Mar[facility] HospitalComment on above:Performed By: #### HH #### [facility] [address] [place] [address] [address] Bella LedesmaGFR-AF FAROESE>60Normal>=60The [facility] CenterComment on above:Performed By: #### HH #### [facility] [address] [place] [address] [address] Bella LedesmaGFR-NON AF FAROESE>60Normal>=60The [facility] CenterComment on above:Performed By: #### HH #### [facility] [address] [place] [address] Dr. Bella JeromeGlobulin (S) [Mass/Vol]4.2 g/dLNormalThe [facility] CenterComment on above:Performed By: #### HH #### [facility] [address] [place] [address] Dr. Bella JeromeGlucose [Mass/Vol]88 mg/pJEmwyzt46-201YnkMar[facility] Hospital Comment on above:Performed By: #### HH #### [facility] [address] [place] [address] Dr. Bella JeromePotassium [Moles/Vol]4.0 mmol/LNormal3.5-5.1The [facility] Comment on above:Performed By: #### HH #### [facility] [address] [place] [address] Dr. Bella JeromeProtein [Mass/Vol]7.9 g/dLNormal6.4-8.2[facility] Comment on above:Performed By: #### HH #### [facility] [address] [place] [address] Dr. Bella JeromeSodium [Moles/Vol]139 mmol/ENzzklc777-600ZgzMarion Hospital Comment on above:Performed By: #### HH #### [facility] [address] [place] [address] Dr. Bella Paez nitrogen [Mass/Vol]12.0 mg/dLNormal7.0-18.0The [facility] CenterComment on above:Performed By: #### HH #### [facility] [address] [place] [address] Dr. Bella Paez nitrogen/Creatinine [Mass ratio]17.9 mg/mgNoCincinnati Shriners HospitalComment on above:Performed By: #### HH #### [facility] [address] [place] [address] Dr. Bella WrenHobuddy 11-03-3759RFR2.463 uIU/mLNormal0.358-3.740The [facility] CenterComment on above:Performed By: #### HH #### [facility] [address] [place] [address] Dr. Bella JeromeVITAMIN D 25 OHon 68-84-5830QXW D 25-OH23.1 ng/mLNormalThe [facility] CenterComment on above:Performed By: #### HH #### [facility] [address] [place] [address] Dr. Bella Gomes [place] BELOWSuburban Community Hospital & Brentwood HospitalComment on above: Result Comment: <20 ng/mL Vit D deficient 20 - <30 ng/mL Vit D insufficient 30 - 100 ng/mL Vit D sufficient >100 ng/mL Potential ToxicityPerformed By: #### HH #### [facility] [address] [place] [address] Dr. Bella SheldonC AUTO DIFFon 01-17-1392WJZY #0.0 103/ulNormal0.0-0.1Marion HospitalComment on above:Performed By: #### CBC #### [facility] [address] [place] [address] Dr. Bella JeromeBasophils/100 WBC (Bld)0.3 %Normal0.2-2.0[facility] Comment on above:Performed By: #### CBC #### [facility] [address] [place] [address] Dr. Bella Kyes #0.1 103/ulNormal0.0-0.7The [facility] CenterComment on above: Performed By: #### CBC #### [facility] [address] [place] [address] Dr. Bella Ledesmaosinophils/100 WBC (Bld)1.6 %Normal0.9-7.0The [facility] Comment on above:Performed By: #### CBC #### [facility] [address] [place] [address] Dr. Bella Ledesmarythrocyte distribution width (RBC) [Ratio]12.7 %Jbaqzs40.0-15.0 The [facility] CenterComment on above:Performed By: #### CBC #### [facility] [address] [place] [address] Dr. Bella JeromeHematocrit (Bld) [Volume fraction]37.2 %Ckudnz92.0-48.0The [facility] CenterComment on above:Performed By: #### CBC #### [facility] [address] [place] [address] Dr. Bella JeromeHemoglobin (Bld) [Mass/Vol]12.5 g/xLGmyzjq22.0-16.0The [facility] CenterComment on above:Performed By: #### CBC #### [facility] [address] [place] [address] Dr. Bella London #0.02 10e3/ulNormal0.00-0.03The [facility] CenterComment on above:Performed By: #### CBC #### [facility] [address] [place] [address] Dr. Bella London %0.3 %Normal0.0-0.5The [facility] CenterComment on above: Performed By: #### CBC #### [facility] [address] [place] [address] Dr. Bella Sigala #2.3 103/ulNormal1.2-3.8The [facility] CenterComment on above:Performed By: #### CBC #### [facility] [address] [place] [address] Dr. Bella Marroquinmphocytes/100 WBC (Bld)34.1 %Fljwgn05.5-60.0The [facility] CenterComment on above:Performed By: #### CBC #### [facility] [address] [place] [address] Dr. Bella DickUAL DIFF REQNONormalThe [facility] CenterComment on above: Performed By: #### CBC #### [facility] [address] [place] [address] Dr. Bella Whipple (RBC) [Entitic mass]30.9 dgDzvuny52.7-34.0The [facility] CenterComment on above:Performed By: #### CBC #### [facility] [address] [place] [address] Dr. Bella Whipple (RBC) [Mass/Vol]33.6 g/iCChvwlx14.9-35.2The [facility] CenterComment on above:Performed By: #### CBC #### [facility] [address] [place] [address] Dr. Bella Whipple (RBC) [Entitic vol]91.9 gCXjnqzm46.0-99.0The [facility] CenterComment on above:Performed By: #### CBC #### [facility] [address] [place] [address] Dr. Bella Childers #0.4 103/ulNormal0.3-0.8The [facility] CenterComment on above:Performed By: #### CBC #### [facility] [address] [place] [address] Dr. Bella Rogersocytes/100 WBC (Bld)5.1 %Normal1.7-12.0The [facility] Comment on above:Performed By: #### CBC #### [facility] [address] [place] [address] Dr. Bella Cunningham #4.0 103/ulNormal1.4-6.5The [facility] CenterComment on above:Performed By: #### CBC #### [facility] [address] [address] [address] Bella JeromeNeutrophils/100 WBC (Bld)58.6 %Ferdvw57.0-75.0The [facility] on above:Performed By: #### CBC #### [facility] [address] [address] [address] Bella JeromePlatelet mean volume (Bld) [Entitic vol]11.5 fLNormal9.5-13.5The [facility] CenterComment on above:Performed By: #### CBC #### [facility] [address] [address] [address] Bella JeromePLT243 103/lzTxxkrv577-639Rls [facility] on above: Performed By: #### CBC #### [facility] [address] [address] [address] Bella JeromeRBC4.05 106/ulCritically low4.20-5.40The [facility] on above:Performed By: #### CBC #### [facility] [address] [address] [address] Bella JeromeWBC6.8 103/ulNormal4.0-11.0The [facility] on above: Performed By: #### CBC #### [facility] [address] [address] [address] Bella JeromeFRTONI T4on 95-20-5392Ijsk T4 [Mass/Vol]1.05 ng/dLNormal0.76-1.46 The [facility] on above:Performed By: #### FT4, VITAD, B12FOL, IRON ####[facility] [address] [address]Dr. Bella JeromeGLYCOHEMOGLOBIN A1Con 53-96-1040EJZ RECOMMENDATIONSEE BELOW NormalThe [facility] on above:Result Comment: ADA RECOMMENDED LIMIT 4.0 - 6.0 ADA THERAPEUTIC TARGET < 7.0 ACTION SUGGESTED > 7.0Performed By: #### A1C #### [facility] [address] [address] [address] Bella JeromeGlucose [Mass/Vol]103 mg/dLNoCincinnati Shriners HospitalComment on above:Performed By: #### A1C #### [facility] [address] [address] [address] Bella JeromeHbA1c (Bld) [Mass fraction]5.2 %Normal4.5-6.2The [facility]man Hospitalment on above:Performed By: #### A1C #### [facility] [address] [address] [address] Bella Jones 25-53-2901Kvgf [Mass/Vol]74.0 ug/gSOkeqnq52.0-170.0The [facility] CenterComment on above:Performed By: #### FT4, VITAD, B12FOL, IRON ####[facility] [address] [address]Dr. Bella JeromeLIPID PROFILEon 06-53-8491HDRS-HDL RATIO NORMSEE BELOWSuburban Community Hospital & Brentwood HospitalComment on above:Result Comment: 3.3 - 4.4 LOW RISK 4.4 - 7.1 AVERAGE RISK 7.1 - 11.0 MODERATE RISK >11.0 HIGH RISKPerformed By: #### CMP, TSH, LIPID #### [facility] [address] [place] [address] Dr. Bella JeromeCholesterol [Mass/Vol]153 mg/dLNormal<=200The [facility] Comment on above:Performed By: #### CMP, TSH, LIPID #### [facility] [address] [address] [address] Bella Pattenesterol in HDL [Mass/Vol]67 mg/dLCritically fhia48-51Hta [facility] CenterComment on above:Performed By: #### CMP, TSH, LIPID #### [facility] [address] [address] [address] Bella Pattenesterol in LDL [Mass/Vol]77.2 mg/dLSuburban Community Hospital & Brentwood HospitalComment on above:Performed By: #### CMP, TSH, LIPID #### [facility] [address] [address] [address] Bella JeromeCholesterol.total/Cholesterol in HDL [Mass ratio]2.3 {ratio} NormalThe [facility] CenterComment on above:Performed By: #### CMP, TSH, LIPID #### [facility] [address] [address] [address] Bella Aldridge NORMAL> or = 60 mg/dl - LOW CARDIOVASCULAR RISK <40 mg/dl - HIGH CARDIOVASCULAR RISKSuburban Community Hospital & Brentwood HospitalComment on above:Performed By: #### CMP, TSH, LIPID #### [facility] [address] [place] [address] Dr. Bella JeromeLDL CALC NORMALSEE BELOWSuburban Community Hospital & Brentwood HospitalComment on above:Result Comment: <100 mg/dl OPTIMAL 100 - 129 mg/dl NEAR OR ABOVE OPTIMAL 130 - 159 mg/dl BORDERLINE HIGH 160 - 189 mg/dl HIGH >190 mg/dl VERY HIGH Performed By: #### CMP, TSH, LIPID #### [facility] [address] [place] [address] Dr. Bella JeromeTriglyceride [Mass/Vol]44 mg/dLNormal<=150The [facility] Comment on above:Performed By: #### CMP, TSH, LIPID #### [facility] [address] [place] [address] Dr. Bella JeromeVLDL CALC8.8 mg/dLNoCincinnati Shriners HospitalCombeaumont hospital on above: Performed By: #### CMP, TSH, LIPID #### [facility] [address] [place] [address] Dr. Bella DominiqueROALB CREAT RATIO RANDOMon 20-34-4285vHXQ9.3 mg/LNormal<=30.0 The [facility] CenterCombeaumont hospital on above:Performed By: #### HH #### [facility] [address] [place] [address] Dr. Bella Orozco CR RATIO17.4 mg/gNormal0.0-29.9The [facility] CenterComment on above:Performed By: #### HH #### [facility] [address] [place] [address] Dr. Bella Orozco CR RATIO RANGESEE BELOWNoCleveland Clinic Ak[facility] Generale [facility] CenterComment on above:Result Comment: NO MICROALBUMINURIA 0-29 MG/G CLINICAL MICROALBUMINURIA 30-300 MG/G MACROALBUMINURIA >300 MG/GPerformed By: #### HH #### [facility] [address] [place] [address] Dr. Bella Penn CGQKQ101.90 mg/gYHcauqs50.00-300.00The [facility] Comment on above:Performed By: #### HH #### [facility] [address] [place] [address] Dr. Bella JeromePROF 14(COMP METB)on 92-93-7448Qwtzbos [Mass/Vol]4.1 g/dLNormal 3.4-5.0[facility] HospitalComment on above:Performed By: #### CMP, TSH, LIPID #### [facility] [address] [place] [address] Dr. Bella JeromeAlbumin/Globulin [Mass ratio]1.3 {ratio}NormalThe [facility] CenterComment on above:Performed By: #### CMP, TSH, LIPID #### [facility] [address] [place] [address] Dr. Bella Iraheta [Catalytic activity/Vol]124 U/LCritically tqmz87-674Cku [facility] CenterComment on above:Performed By: #### CMP, TSH, LIPID #### [facility] [address] [place] [address] Dr. Bella Doyle [Catalytic activity/Vol]16 U/KEeftis28-97Uxz [facility] CenterComment on above:Performed By: #### CMP, TSH, LIPID #### [facility] [address] [place] [address] Dr. Bella Bernal gap [Moles/Vol]13.4 mmol/LNormalThe [facility] Comment on above:Performed By: #### CMP, TSH, LIPID #### [facility] [address] [place] [address] Dr. Bella Gutierrez [Catalytic activity/Vol]17 U/WProjhw61-01Gyp [facility] CenterComment on above:Performed By: #### CMP, TSH, LIPID #### [facility] [address] [place] [address] Dr. Bella JeromeBilirubin [Mass/Vol]0.8 mg/dLNormal0.2-1.0[facility] Comment on above:Performed By: #### CMP, TSH, LIPID #### [facility] [address] [place] [address] Dr. Bella JeromeCalcium [Mass/Vol]8.9 mg/dLNormal8.5-10.1The [facility] Comment on above:Performed By: #### CMP, TSH, LIPID #### [facility] [address] [place] [address] Dr. Bella JeromeChloride [Moles/Vol]103 mmol/CAdowco30-759Rck [facility] Comment on above:Performed By: #### CMP, TSH, LIPID #### [facility] [address] [place] [address] Dr. Bella JeromeCO2 [Moles/Vol]25.6 mmol/IIheubh18.0-32.0The [facility] Comment on above:Performed By: #### CMP, TSH, LIPID #### [facility] [address] [place] [address] Dr. Bella JeromeCreatinine [Mass/Vol]0.55 mg/dLNormal0.55-1.02The [facility] CenterComment on above:Performed By: #### CMP, TSH, LIPID #### [facility] [address] [place] [address] Dr. Bella LedesmaGFR-AF FAROESE>60Normal>=60The [facility] CenterComment on above:Performed By: #### CMP, TSH, LIPID #### [facility] [address] [place] [address] Dr. Bella LedesmaGFR-NON AF FAROESE>60Normal>=60The [facility] CenterComment on above:Performed By: #### CMP, TSH, LIPID #### [facility] [address] [place], [place] [id number] Dr. Bella JeromeGlobulin (S) [Mass/Vol]3.1 g/dLNormSelect Medical Cleveland Clinic Rehabilitation Hospital, AvonComment on above:Performed By: #### CMP, TSH, LIPID #### [facility] [address] [place] [address] Dr. Bella JeromeGlucose [Mass/Vol]82 mg/xVYzzclo61-706AneMarion Hospital Comment on above:Performed By: #### CMP, TSH, LIPID #### [facility] [address] [place] [address] Dr. Bella JeromePotassium [Moles/Vol]4.0 mmol/LNormal3.5-5.1The [facility] Comment on above:Performed By: #### CMP, TSH, LIPID #### [facility] [address] [place] [address] Dr. Bella JreomeProtein [Mass/Vol]7.2 g/dLNormal6.4-8.2[facility] Comment on above:Performed By: #### CMP, TSH, LIPID #### [facility] [address] [place] [address] Dr. Bella JeromeSodium [Moles/Vol]138 mmol/KZmwwmu154-582XbnMarion Hospital Comment on above:Performed By: #### CMP, TSH, LIPID #### [facility] [address] [place] [address] Dr. Bella JeromeUrea nitrogen [Mass/Vol]14.0 mg/dLNormal7.0-18.0The [facility] CenterComment on above:Performed By: #### CMP, TSH, LIPID #### [facility] [address] [place] [address] Dr. Bella JeromeUrea nitrogen/Creatinine [Mass ratio]25.5 mg/mgNoCincinnati Shriners HospitalComment on above:Performed By: #### CMP, TSH, LIPID #### [facility] [address] [place] [address] Dr. Bella Morse 50-24-2465VKD0.224 uIU/mLCritically low0.358-3.740The [facility] HospitalComment on above:Performed By: #### CMP, TSH, LIPID #### [facility] [address] [address] [address] Bella Jalloh B12 AND FOLATEon 59-48-6269Zphssmpzy (Vitamin B12) [Mass/Vol] 702.0 pg/gVMtzedf468.0-986.0The [facility] on above:Performed By: #### FT4, VITAD, B12FOL, IRON ####[facility] [address] [address]DrWill JeromeFOLATE25.10 ng/mLNormal8.60-58.90The [facility] on above:Performed By: #### FT4, VITAD, B12FOL, IRON ####[facility] [address] [address]DrWill JeromeVITAMIN D 25 OHon 38-39-0648BEJ D 25-OH25.4 ng/mLNormalCincinnati Children's [facility] on above:Performed By: #### FT4, VITAD, B12FOL, IRON ####[facility] [address] [address]DrWill Gomes RANGESSEE [facility] OhioCombeaumont hospital on above: Result Comment: <20 ng/mL Vit D deficient 20 - <30 ng/mL Vit D insufficient 30 - 100 ng/mL Vit D sufficient >100 ng/mL Potential ToxicityPerformed By: #### FT4, VITAD, B12FOL, IRON ####[facility] [address] [address]Dr. Bella Peres ACOG PANEL 2: 21 to 29on 12-18-2022..Normal The [facility] CenterCombeaumont hospital on above:Performed By: #### CBC #### [facility] [address] [place] [address] Dr. Bella Nixon Gdln ACOG Gnkpaar35-21UcphevEauLima Memorial Hospital on above:Performed By: #### CBC #### [facility] [address] [address] [address] Bella JeromeDIAGNOSIS:CommentLima Memorial Hospital on above: Result Comment: NEGATIVE FOR INTRAEPITHELIAL LESION OR MALIGNANCY.Performed By: #### CBC #### [facility] [address] [place] [address] Dr. Bella JeromeMethodology:CommentLima Memorial Hospital on above: Result Comment: This liquid based ThinPrep(R) pap test was screened with the use of an image guided system.Performed By: #### CBC #### [facility] [address] [place] [address] Dr. Bella JeromeNote:CommentLima Memorial Hospital on above:Result Comment: The Pap smear is a screening test designed to aid in the detection of premalignant and malignant conditions of the uterine cervix. It is not a diagnostic procedure and should not be used as the sole means of detecting cervical cancer. Both false-positive and false-negative reports do occur. .Performed By: #### CBC #### [facility] [address] [place] [address] Dr. Bella JeromePerformed by:CommentLima Memorial Hospital on above: Result Comment: Tk [employer] (ASCP)Performed By: #### CBC #### [address] [address] Dr[address] Bella JeromeReflex Criteria:[facility] on above:Result Comment: The HPV DNA reflex criteria were not met with this specimen result therefore, no HPV testing was performed. .Performed By: #### CBC #### [facility] [address] [place] [address] Dr. Bella JeromeSpecimebuddy adequacy:CommentLima Memorial Hospital on above:Result Comment: Satisfactory for evaluation. Endocervical and/or squamous metaplastic cells (endocervical component) are present.Performed By: #### CBC #### [facility] [address] [place] [address] Dr. Bella JeromeCB W MANUAL DIFFon 59-73-1336QXNQFFXB LYMPH #NormalThe Como HospitalComment on above:Performed By: #### CBCMAN ####[facility] [address] [address]Dr. Yilan ChangATYPICAL LYMPH %NormalMarion HospitalComment on above:Performed By: #### CBCMAN ####[facility] [address] [address]Dr. Yilan ChangBAND #0.2 103/ulNormal0.0-0.3The [facility] HospitalComment on above: Performed By: #### CBCMAN ####[facility] [address] [address]Dr. Yilan ChangBAND %1 %Normal0-5The [facility] Comment on above:Performed By: #### CBCRELL ####[facility] [address] [place], [place] [address]Dr. Yilan ChangBASOM #0.00 103/ulNormal 0.00-0.10The [facility] CenterComment on above:Performed By: #### CBCRELL ####[facility] [address] [place], [place] [address]Dr. Yilan ChangBASOM %0.0 %Critically low0.2-2.0The [facility] CenterComment on above:Performed By: #### CBCRELL ####[facility] [address] [place], [place] [address]Dr. Yilan ChangBLAST #NormalMarion Hospital Comment on above:Performed By: #### CBCRELL ####[facility] [address] [place], [place] [address]Dr. Yilan ChangBLAST %NormalThe [facility] CenterComment on above:Performed By: #### CBCRELL ####[facility] [address] [place], [place] [address]Dr. Yilan ChangCORRECTED WBC Normal4.0-11.0The [facility] CenterComment on above:Performed By: #### CBCRELL ####[facility] [address] [place], [place] [address]Dr. Yilan ChangEOS #0.00 103/ulNormal0.00-0.70The [facility] CenterComment on above: Performed By: #### CBCMAN ####[facility] [address] [address]Dr. Bella ChangEOS%0.0 %Critically low0.9-7.0The [facility] CenterComment on above:Performed By: #### CBCMAN ####[facility] [address] [address]Dr. Bella ChangHCT 30.5 %Critically low36.0-48.0The [facility] HospitalComment on above:Performed By: #### CBCMAN ####[facility] [address] [address]Dr. Bella LfsozEAU67.5 g/dlCritically low12.0-16.0The [facility] Comment on above:Performed By: #### CBCMAN ####[facility] [address] [place], [place] [address]Dr. Bella ChangLYMPHM #2.78 103/ulNormal 1.20-3.80The [facility] CenterComment on above:Performed By: #### CBCMAN ####[facility] [address] [place], [place] [address]Dr. Bella JeromeLYMPHM%13.0 %Critically low20.5-60.0The [facility] CenterComment on above:Performed By: #### CBCMAN ####[facility] [address] [address]Dr. Bella JeromeMCH32.8 cgLduiqk37.7-34.0Mar[facility] HospitalComment on above:Performed By: #### CBCMAN ####[facility] [address] [place], [place] [address]Dr. Bella WacdrNUYZ73.4 g/dl Brnctg12.9-35.2The [facility] CenterComment on above:Performed By: #### CBCMAN ####[facility] [address] [place], [place] [address]Dr. Bella PypvsIVV26.3 jCDzbsqa71.0-99.0The [facility] CenterComment on above: Performed By: #### MUNIRA ####[facility] [address] [address]Dr. Yilan ChangMETAMYELOCYTE #NormalMarion HospitalComment on above:Performed By: #### MUNIRA ####[facility] [address] [address]Dr. Yilan ChangMETAMYELOCYTE %NormalAccess Hospital Dayton HospitalComment on above:Performed By: #### MUNIRA ####[facility] [address] [address]Dr. Yilan ChangMONOM#2.35 103/ulCritically high0.30-0.80The [facility] CenterComment on above:Performed By: #### MUNIRA ####[facility] [address] [address]Dr. Yilan ChangMONOM%11.0 %Normal1.7-12.0The [facility] CenterComment on above:Performed By: #### MUNIRA ####[facility] [address] [address]Dr. Yilan ChangMPV 11.1 fLNormal9.5-13.5The [facility] CenterComment on above:Performed By: #### MUNIRA ####[facility] [address] [address]Dr. Yilan ChangMYELOCYTE #NormalMarion HospitalComment on above: Performed By: #### MUNIRA ####[facility] [address] [address]Dr. Yilan ChangMYELOCYTE %NormalThe [facility] Comment on above:Performed By: #### MUNIRA ####[facility] [address] [address]Dr. Yilan ChangNRBCNormalThCleveland Clinic Fairview HospitalComment on above:Performed By: #### MUNIRA ####[facility] [address] [address]Dr. Yilan IzsknERA320 103/ul Svwxfm405-928Ygt [facility] CenterComment on above:Performed By: #### MUNIRA ####[facility] [address] [address]Dr. Bella ChangRBC3.20 106/ulCritically low4.20-5.40The [facility] CenterComment on above:Performed By: #### CBCMAN ####[facility] [address] [address]Dr. Bella JeromeRDW12.8 %Acfgto78.0-15.0The [facility] CenterComment on above:Performed By: #### CBCMAN ####[facility] [address] [address]Dr. Bella JeromeSEG #16.05 103/ulCritically high1.40-6.50The [facility] CenterComment on above:Performed By: #### CBCMAN ####[facility] [address] [address]Dr. Bella JeromeSEG %75.0 %Vdqgrd34.0-75.0The [facility] CenterComment on above:Performed By: #### CBCMAN ####[facility] [address] [address]Dr. Bella OerorAUX86.4 103/ulCritically high 4.0-11.0The [facility] CenterComment on above:Performed By: #### CBCMAN ####[facility] [address] [address]Dr. Bella SheldonC AUTO DIFFon 29-16-2727MZWY #0.0 103/ulNormal0.0-0.1The [facility] CenterComment on above:Performed By: #### CBC #### [facility] [address] [address] [address] Bella Moralesphils/100 WBC (Bld)0.2 %Normal0.2-2.0The [facility] Comment on above:Performed By: #### CBC #### [facility] [address] [place] [address] Dr. Bella Keys #0.1 103/ulNormal0.0-0.7The [facility] CenterComment on above: Performed By: #### CBC #### [facility] [address] [place] [address] Dr. Bella Ledesmaosinophils/100 WBC (Bld)0.6 %Critically low0.9-7.0The [facility]-Rittman Hospitalment on above:Performed By: #### CBC #### [facility] [address] [place] [address] Dr. Bella Ledesmarythrocyte distribution width (RBC) [Ratio]12.6 %Hoadut26.0-15.0 [facility] Hospitalment on above:Performed By: #### CBC #### [facility] [address] [place] [address] Dr. Bella JeromeHematocrit (Bld) [Volume fraction]32.5 %Critically low36.0-48.0 [facility] HospitalComment on above:Performed By: #### CBC #### [facility] [address] [place] [address] Dr. Bella JeromeHemoglobin (Bld) [Mass/Vol]11.1 g/dLCritically low12.0-16.0The [facility]ittman Hospitalment on above:Performed By: #### CBC #### [facility] [address] [place] [address] Dr. Bella London #0.14 10e3/ulCritically high0.00-0.03The [facility] Comment on above:Performed By: #### CBC #### [facility] [address] [place] [address] Dr. Bella London %1.1 %Critically high0.0-0.5The [facility]-Rittman Hospitalment on above:Performed By: #### CBC #### [facility] [address] [place] [address] Dr. Bella Sigala #2.6 103/ulNormal1.2-3.8The [facility]-Rittman Hospitalment on above:Performed By: #### CBC #### [facility] [address] [place] [address] Dr. Bella Marroquinmphocytes/100 WBC (Bld)20.2 %Critically low20.5-60.0[facility] HospitalComment on above:Performed By: #### CBC #### [facility] [address] [place] [address] Dr. Bella Loya DIFF REQNONormalThe [facility] CenterComment on above: Performed By: #### CBC #### [facility] [address] [place] [address] Dr. Bella Whipple (RBC) [Entitic mass]32.2 mwVzlwyv05.7-34.0[facility] HospitalComment on above:Performed By: #### CBC #### [facility] [address] [place] [address] Dr. Bella Whipple (RBC) [Mass/Vol]34.2 g/fKVmwwtd13.9-35.2The [facility] CenterComment on above:Performed By: #### CBC #### [facility] [address] [place] [address] Dr. Bella Abdalla (RBC) [Entitic vol]94.2 nZOdkjfe37.0-99.0[facility] HospitalComment on above:Performed By: #### CBC #### [facility] [address] [place] [address] Dr. Bella Childers #0.9 103/ulCritically high0.3-0.8ThCleveland Clinic Fairview Hospital Comment on above:Performed By: #### CBC #### [facility] [address] [place] [address] Dr. Bella Rogersocytes/100 WBC (Bld)7.1 %Normal1.7-12.0[facility] Comment on above:Performed By: #### CBC #### [facility] [address] [place] [address] Dr. Bella Cunningham #8.9 103/ulCritically high1.4-6.5ThCleveland Clinic Fairview Hospital Comment on above:Performed By: #### CBC #### [facility] [address] [place] [address] Dr. Yilan ChangNeutrophils/100 WBC (Bld)70.8 %Gbtiki84.0-75.0The [facility] CenterComment on above:Performed By: #### CBC #### [facility] [address] [place] [address] Dr. Bella Gallolet mean volume (Bld) [Entitic vol]11.0 fLNormal9.5-13.5The [facility] CenterComment on above:Performed By: #### CBC #### [facility] [address] [place] [address] Dr. Bella JeromePLT234 103/oqDkjbhz889-180Eme [facility] CenterComment on above: Performed By: #### CBC #### [facility] [address] [place] [address] Dr. Bella JeromeRBC3.45 106/ulCritically low4.20-5.40The [facility] Health CenterComment on above:Performed By: #### CBC #### [facility] [address] [place] [address] Dr. Bella JeromeWBC12.6 103/ulCritically high4.0-11.0The [facility] Health CenterComment on above:Performed By: #### CBC #### [facility] [address] [place] [address] Dr. Bella JeromeCovid-19 PCR ([facility])on 27-40-9112FCWR-CoV-2 (COVID-19) RNA FAVIAN+probe Ql (Unsp spec)Not detectedNormalNOT DETECTEDThe [facility] Comment on above:Result Comment: When diagnostic testing is negative, the [...] for this test is supported by the Camera Repairer of Health and Human Service's declaration that circumstances exist to justify the emergency use of in vitro diagnostics for the detection and/or diagnosis of the virus that causes COVID-19. This EUA will remain in effect for the duration of the COVID-19 declaration justifying emergency of IVDs, unless it is terminated or revoked by the FDA (after which the test may no longer be used).Performed By: #### CVDTBH ####[facility] B[address] [place], [place] [address]Dr. Liwally ChangDRUG SCREEN RAPID (URINE)on 68-89-9887JMWGadlwvkcNlpejs NEGATIVEMarion HospitalComment on above:Performed By: #### DRUGRPD ####[facility] Bys[address] [place], [place] [address]Dr. Bella ChangBARNegativeNormalNEGATIVEMarion HospitalComment on above: Performed By: #### DRUGRPD ####[facility] Cemv[address]ps[address] [place], [place] [address]Dr. Bella ChangBUPNegativeNormalNEGATIVEMarion HospitalComment on above:Performed By: #### DRUGRPD ####[facility] Siejvgps[address] [place], [place] [address]Dr. Bella ChangBZONegative NormalNEGATIVEMarion HospitalComment on above:Performed By: #### DRUGRPD ####[facility] Ywveldutxf[address] [place], [place] [address]Dr. Yilan ChangCOCNegativeNormalNEGATIVEMarion HospitalComment on above: Performed By: #### DRUGRPD ####[facility] Nsxrbcecyu[address] [place], [place] [address]Dr. Lilan ChangCUT-OFFSSEE BELOWSuburban Community Hospital & Brentwood HospitalComment on above:Result Comment: AMP (Amphetamine): 500ng/mL, BAR (Barbituates): 200 ng/mL, BZO (Benzodiazepines): 150 ng/mL, BUP (Buprenorphine): 10 ng/mL, NGA (Cocaine): 150 ng/mL, mAMP (Methamphetamine): 500 ng/mL, MTD (Methadone): 200 ng/mL, OPI (Opiates): 100 ng/mL, OXY (Oxycodone): 100 ng/mL, PCP (Phencyclidine): 25 ng/mL, PPX (Propoxyphene): 300 ng/mL, THC (Cannabinoids): 50 ng/mL, TCA (Trycyclic Antidepressants): 300 ng/mLPerformed By: #### DRUGRPD ####[facility] Bqlj[address] [place], [place] [address]Dr. Yilan ChangDRUG CUT HEADERDRUG CLASS TEST SYSTEM CUT-OFF CONCENTRATIONS ARE FOLLOWS:NormalThe Como HospitalComment on above: Performed By: #### DRUGRPD ####[facility] Nfrsbzq[address] [place], [place] [address]Dr. Yilan ChangmAMPNegativeNormalNEGATIVEAccess Hospital Dayton HospitalComment on above:Performed By: #### DRUGRPD ####[facility] Wqsxhwctrj[address] [place], [place] [address]Dr. Yilan ChangMTDNegative NormalNEGATIVEAccess Hospital Dayton HospitalComment on above:Performed By: #### DRUGRPD ####[facility] Tgzunsawaa[address] [place], [place] [address]Dr. Yilan ChangOPINegativeNormalNEGATIVEAccess Hospital Dayton HospitalComment on above: Performed By: #### DRUGRPD ####[facility] V[address]ylfbsik[address] [place], [place] [address]Dr. Yilan ChangOXYNegativeNormalNEGATIVEAccess Hospital Dayton HospitalComment on above:Performed By: #### DRUGRPD ####[facility] Swrxoqgukk[address] [place], [place] [address]Dr. Yilan ChangPCPNegative NormalNEGATIVEAccess Hospital Dayton HospitalComment on above:Performed By: #### DRUGRPD ####[facility] Hosaaarbhs[address] [place], [place] [address]Dr. Yilan ChangPPXNegativeNormalNEGATIVEAccess Hospital Dayton HospitalComment on above: Performed By: #### DRUGRPD ####[facility] Niffhdlskd[address] [place], [place] [address]Dr. Yilan ChangTCANegativeNormalNEGATIVEAccess Hospital Dayton HospitalComment on above:Performed By: #### DRUGRPD ####[facility] [address] [place], [place] [address]Ur. Bella JeromeTHCNegative NormalNEGATIVEMarion HospitalComment on above:Performed By: #### DRUGRPD ####[facility] Bbs[address] [place], [place] [address]Sy. Bella JeromeTYPE AND SCREENon 57-10-3314ICVV AND SCREENNegativeNoCincinnati Shriners HospitalComment on above:Performed By: #### TNS ####[facility] Cdodigprng[address] [place], [place] [address]Gz.Bella JeromeUS PREG BIOPHY W NON STRESSon 12-34-1502TM PREG BIOPHY W NON STRESSEXAMINATION: US PREG BIOPHY W NON STRESS HISTORY: [...] profile score: 8.0 Electronically authenticated by: MANUELITO HOGAN Date: 2022-08-31 17:06[facility] & Brentwood HospitalUS PREG GROWTHon 04-94-3676JQ PREG GROWTHEXAMINATION: US PREG GROWTH HISTORY: Large for gestation [...] Normal interval growth Electronically authenticated by: MANUELITO HOGAN Date: 2022-08-30 17:59NoCincinnati Shriners HospitalUS PREG BIOPHY W NON STRESSon 88-02-9130HD PREG BIOPHY W NON STRESSEXAMINATION: US PREG BIOPHY W NON STRESS HISTORY: [...] profile score: 8.0 Electronically authenticated by: MANUELITO HOGAN Date: 2022-08-24 17:10[facility] Brentwood HospitalFREE T4on 29-10-8702Llyu T4 [Mass/Vol]0.90 ng/dLNormal0.76-1.46 The [facility] CenterComment on above:Performed By: #### CBC #### [facility] [address] [place] [address] Dr. Bella Morse 02-64-1829BIK9.033 uIU/mLNormal0.358-3.740Marion HospitalComment on above:Performed By: #### HH #### [facility] [address] [place] [address] Dr. Bella Olivares PREG BIOPHY W NON STRESSon 89-45-1506GF PREG BIOPHY W NON STRESSEXAMINATION: US PREG BIOPHY W NON STRESS HISTORY: [...] profile score: 8.0 Electronically authenticated by: MANUELITO HOGAN Date: 2022-08-17 18:33NoCincinnati Shriners HospitalGROUP B STREP CULTUREon 08-15-2022. agalactiae Ag Ql (Unsp spec)Culture Observations: NEGATIVE FOR GROUP B STREPTOCOCCUS.NormalMarion HospitalComment on above: Performed By: #### GBSCX ####[facility] [address] [place], [place] [address]Xc. Bella Olivares PREG BIOPHY W NON STRESSon 57-24-4122OQ PREG BIOPHY W NON STRESSEXAMINATION: US PREG BIOPHY W NON STRESS HISTORY: [...] profile score: 8.0 Electronically authenticated by: MANUELITO HOGAN Date: 2022-08-10 16:36NoCincinnati Shriners HospitalUS PREG GROWTHon 80-19-0410HU PREG GROWTHEXAMINATION: US PREG GROWTH HISTORY: Excessive growth affecting [...] Normal interval growth Electronically authenticated by: MANUELITO HOGAN Date: 2022-08-10 16:37NoCincinnati Shriners HospitalUS PREG GROWTHon 33-02-0754OD PREG GROWTHEXAMINATION: US PREG GROWTH HISTORY: Large for gestation [...] Normal interval growth Electronically authenticated by: MANUELITO HOGAN Date: 2022-07-25 18:18[facility] HospitalFREE T4on 50-26-2626Tcok T4 [Mass/Vol]0.98 ng/dLNormal0.76-1.46 The [facility] Health CenterComment on above:Performed By: #### FT4 #### [facility] [address] [place], [place] [address] Dr. Bella Morse 97-68-7137WIG3.196 uIU/mLNormal0.358-3.740The [facility] Health CenterComment on above:Performed By: #### TSH ####[facility] [address] [place], [place] [address]LcDr.Yilan Fonseca (CLEAN/CATCH) GEOPHYSICAL LABORATORY CHIEF/MICRO IF IND.on 53-61-5441Rxodhykqp Ql (U)NegativeNormal NEGATIVEThe [facility] Health CenterComment on above:Performed By: #### HH #### [facility] [address] [place] [address] [address] Bella JeromeClarity (U)CLEARNormalCLEARMarion HospitalComment on above: Performed By: #### HH #### [facility] [address] [address] [address] Bella Holtlor (U)LT. YELLOWNormalYELLOWMarion HospitalComment on above:Performed By: #### HH #### [facility] [address] [address] [address] Bella JeromeGlucose Ql (U)NegativeNormalNEGATIVEMarion HospitalComment on above:Performed By: #### HH #### [facility] [address] [place] [address] Dr. Bella JeromeHemoglobin Ql (U)NegativermalNEGMercy Health Fairfield Hospital Comment on above:Performed By: #### HH #### [facility] [address] [address] [address] Bella JeromeKetones Ql (U)NegativeNormalNEGATIVEMarion HospitalComment on above:Performed By: #### HH #### [facility] [address] [address] [address] Bella JeromeLEUKOCYTESNegativeNormalNEGATIVEMarion HospitalCombeaumont hospital on above:Performed By: #### HH #### [facility] [address] [address] [address] Bella JeromeNitrite Ql (U)NegativeNormalNEGATIVEMarion HospitalComment on above:Performed By: #### HH #### [facility] [address] [address] [address] Bella JeromepH (U)7.0 [pH]Normal5-9Marion HospitalComment on above: Performed By: #### HH #### [facility] [address] [place] [address] Dr. Bella JeromeSPEC GRAVITY<=1.450Xnmdcqsp0.005-<=1.025The [facility] Comment on above:Performed By: #### HH #### [facility] [address] [place] [address] [address] Bella Fonseca PROTEINNegativeNormalNEGATIVE/ TRACEThe [facility] Comment on above:Performed By: #### HH #### [facility] [address] [address] [address] Bella Ellington MICRO INDNOT INDICATEDNoCincinnati Shriners HospitalComment on above:Performed By: #### HH #### [facility] [address] [place] [address] Dr. Bella Deebilinogen Qn (U)0.2 {Kimberlee'U}/dLNormal0.2 - 1.0The [facility] Health CenterComment on above:Performed By: #### HH #### [facility] [address] [place] [address] Dr. Bella Olivares PREG GROWTHon 12-84-4553OR PREG GROWTHEXAMINATION: US PREG GROWTH HISTORY: Large for gestation [...] Electronically authenticated by: RAGINI SANTOS Date: 2022-06-27 16:23[facility] HospitalFREE T4on 58-79-9610Rdtl T4 [Mass/Vol]0.82 ng/dLNormal0.76-1.46 The [facility] CenterComment on above:Performed By: #### HH #### [facility] [address] [place] [address] Dr. Bella JeromeGLUCOSE - 1HRon 22-90-1731Agfvfmh [Mass/Vol]127 mg/dLCritically wwwo79-467Bwr [facility] CenterComment on above:Performed By: #### HH #### [facility] [address] [place] [address] Dr. Bella JeromeHEMOGRAM AND PLATELon 04-05-9884Xrcjsesljk (Bld) [Volume fraction]32.4 %Critically low36.0-48.0The [facility] CenterComment on above: Performed By: #### HH #### [facility] [address] [place] [address] Dr. Bella JeromeHemoglobin (Bld) [Mass/Vol]10.9 g/dLCritically low12.0-16.0The [facility] CenterComment on above:Performed By: #### HH #### [facility] [address] [place] [address] Dr. Bella Whipple (RBC) [Entitic mass]32.9 uhVwrwvn78.7-34.0The [facility] Health CenterComment on above:Performed By: #### HH #### [facility] [address] [place] [address] Dr. Bella JeromeU[facility] (RBC) [Mass/Vol]33.6 g/tHUpqeqz62.9-35.2The [facility] CenterComment on above:Performed By: #### HH #### [facility] [address] [place] [address] Dr. Bella Whipple (RBC) [Entitic vol]97.9 qFMcdvwu61.0-99.0The [facility] Health CenterComment on above:Performed By: #### HH #### [facility] [address] [place] [address] Dr. Bella JeromePLT241 103/exYdgjvs789-833Szi [facility] CenterComment on above: Performed By: #### HH #### [facility] [address] [place] [address] Dr. Bella JeromeRBC3.31 106/ulCritically low4.20-5.40The [facility] CenterComment on above:Performed By: #### HH #### [facility] [address] [place] [address] Dr. Bella JeromeWBC11.3 103/ulCritically high4.0-11.0The [facility] CenterComment on above:Performed By: #### HH #### [facility] [address] [place] [address] Dr. Bella Morse 96-15-6762HBI8.044 uIU/mLNormal0.358-3.740The [facility] Health CenterComment on above:Performed By: #### CBC #### [facility] [address] [place] [address] Dr. Bella Olivares PREG INCOMPLETE ANATOMYon 87-70-6265ZH PREG INCOMPLETE ANATOMY EXAMINATION: US PREG INCOMPLETE ANATOMY HISTORY: screening COMPARISON: Ultrasound anatomy 04/26/2022 FINDINGS: Presentation: Cephalic Heart rate: 154 bpm Anatomy: Cervical, thoracic, and lumbar spine HERNANDO: 09/13/2022 IMPRESSION: 1. Adequate visualization of the cervical, thoracic, and lumbar spine; no appreciable abnormality. Electronically authenticated by: RAGINI SANTOS Date: 2022-05-24 17:33[facility] PREG ANATOMY SINGLEon 11-33-5940LW PREG ANATOMY SINGLE EXAMINATION: US PREG ANATOMY [...] July 28, 2007. Electronically authenticated by: MANUELITO HOGAN Date: 2022-04-26 16:54[facility] Brentwood HospitalCHLAMYDIA/GONOCOCCUS FAVIAN (SWAB/URINE/PAPon 44-59-9798Ohzkykxhj trachomatis, NAANegativeNormalNegativeMarion HospitalComment on above: Performed By: #### CT/NGNA ####[facility] [address] [place] [address]Dr. Bella JeromeNeisseria gonorrhoeae, NAANegative NormalNegativeMarion HospitalComment on above:Performed By: #### CT/NGNA ####[facility] [address] [place] [address]Dr. Bella JeromeVAGINITIS/VAGINOSIS DNA PROBEon 38-77-9671Eiuzljl speciesNegative NormalNegativeMarion HospitalComment on above:Performed By: #### HH #### [facility] [address] [place] [address] Dr. Bella Camarilloerellangle vaginalisNegativeNormalNegativeMarion Hospital Comment on above:Performed By: #### HH #### [facility] [address] [place] [address] [address] Bella JeromeTrichomonas vaginalisNegativermalNegativeMarion Hospital Comment on above:Performed By: #### HH #### [facility] [address] [place] [address] Dr. Bella Torres T4on 50-89-9016Laoy T4 [Mass/Vol]0.88 ng/dLNormal0.76-1.46 [facility] on above:Performed By: #### FT4 #### [facility] [address] [place] [address] Dr. Bella Morse 10-38-6630XBO7.786 uIU/mLNormal0.358-3.740The [facility] Health CenterCombeaumont hospital on above:Performed By: #### TSH ####[facility] [address] [place] [address]Dr.Yilan Shasta VALENCIASelect Medical Specialty Hospital [facility] SouthCombeaumont hospital on above:Result Comment: <0.34 UIU/ml HYPERTHYROID 0.34-5.60 UIU/ml EUTHYROID >5.60 UIU/ml HYPOTHYROIDPerformed By: #### TSH ####[facility] Myhnobrwcr[address] [place], [place] [address]Dr.Yilan Torres T4on 33-72-4907Qvio T4 [Mass/Vol]1.06 ng/dLNormal 0.76-1.46The [facility] on above:Performed By: #### CBC #### [facility] [address] [place] [address] Dr. Bella Morse 87-58-0549EAW3.024 uIU/mLNormal0.470-4.680The [facility] CenterCombeaumont hospital on above:Performed By: #### CBC #### [facility] [address] [place] [address] Dr. Bella GARCIA [facility] OhioCombeaumont hospital on above: Result Comment: <0.34 UIU/ml HYPERTHYROID 0.34-5.60 UIU/ml EUTHYROID >5.60 UIU/ml HYPOTHYROIDPerformed By: #### CBC #### [facility] [address] [place] [address] Dr. Bella Jerome Vital Signs Date TimeVital SignValuePerforming CjkdmuqrlNygracqf65-97-3318 14:08-0400Body vnujzv301.02 cmMelissa DeWilde DO Work Phone: [phone] [place], [place] 4845407-08-2025 14:08-0400 Body mass index (BMI) [Ratio]46 kg/b5Kmntecv DeWilde DO Work Phone: [phone])[address] [place], [place] 4845407-08-2025 14:08-0400 Body lmvdejigrij87.1 [degF]Blanca DeWilde DO Work Phone: [phone] [place], [place] 4845407-08-2025 14:08-0400 Body hztail261.93 kgMelissa DeWilde DO Work Phone: [phone])[address] [place], [place] 4845407-08-2025 14:08-0400 Diastolic blood mm[Hg]Blanca DeWilde DO Work Phone: [phone])[address] [place], [place] 4845407-08-2025 14:08-0400 Heart rate80 /minMelissa DeWilde DO Work Phone: [phone] [place], [place] 4845407-08-2025 14:08-0400 SaO2% (BldA) [Mass fraction]98 %Blanca DeWilde DO Work Phone: [phone])[address] [place], [place] 4845407-08-2025 14:08-0400 Systolic blood nwkyepxf321 mm[Hg]Blanca DeWilde DO Work Phone: [phone])[address] [place], [place] 4845407-01-2025 10:28-0400 Body aqbmdpmbxey68.6 [degF]Blanca DeWilde DO Work Phone: [phone])[address] [place], [place] 4845407-01-2025 10:28-0400 Body .67 kgMelissa DeWilde DO Work Phone: [phone])[address] [place], [place] 4845407-01-2025 10:28-0400 Diastolic blood xoanumxj51 mm[Hg]Blanca DeWilde DO Work Phone: [phone]07-01-2025 10:28-0400 Heart rate76 /minBlanca DeWilde DO Work Phone: [phone])[address] [place], [place] 4845407-01-2025 10:28-0400 Respiratory rate20 /minBlanca DeWilde DO Work Phone: [phone])[address] [place], [place] 4845407-01-2025 10:28-0400 SaO2% (BldA) [Mass fraction]98 %Blanca DeKeithlde DO Work Phone: [phone])[address] [place], [place] 4845407-01-2025 10:28-0400 Systolic blood mm[Hg]Blanca DeKeithlde DO Work Phone: 1(562)[address] [place], [place] 4845402-20-2025 08:54-0500 Body mass index (BMI) [Ratio]44.43 kg/h3Tmnnf Marquita DO Work Phone: [phone] [place], [place] [address]Quwbywfjqj91-01-4217 08:54-0500Body zamptt946.76 kgCorey Marquita DO Work Phone: [phone]-[facility] HealthXlmxmlsefi70-77-8072 08:54-0500Diastolic blood bhzogunu00 mm[Hg]Edgar Marquita DO Work Phone: [phone]-[facility] HealthLgrlysuffx47-30-5517 08:54-0500Systolic blood mlwuhdpy083 mm[Hg]Edgar Marquita DO Work Phone: [phone]-[facility] HealthOojjidjpdf61-00-6626 14:19-0500Body mass index (BMI) [Ratio]42.34 kg/m2Marylou CARBAJAL Work Phone: [facility] HealthNfyfdkgjrv87-03-5976 14:19-0500Body ljygcs972.41 kgMarylou CARBAJAL Work Phone: [facility] HealthGbehpkdlal89-20-0531 14:19-0500Diastolic blood xgkrjnaj93 mm[Hg]Marylou CARBAJAL Work Phone: [facility] HealthYtdfochtom30-06-0307 14:19-0500Systolic blood innasprh162 mm[Hg]Marylou Hobbs SOLOMON Work Phone: [place] [address]Ymtpbntfor29-34-5073 10:37-0500Body mass index (BMI) [Ratio]43.95 kg/m2Marylou Hobbs PA Work Phone: [place] [address]Gadoroomkl87-30-8031 10:37-0500Body dgbida756.55 kgMarylou Hobbs PA Work Phone: [phone]-[facility] [address]Mkubcnzbdi54-61-5245 10:37-0500Diastolic blood xrlegauq69 mm[Hg]Marylou Hobbs PA Work Phone: [phone] [place] [address]-18-2024 10:37-0500Systolic blood riiiesqk342 mm[Hg]Maryluo Hobbs PA Work Phone: [phone] [place] [address]-12-2024 10:56-0500Body mass index (BMI) [Ratio]44.07 kg/s5Eouab Marquita DO Work Phone: [phone] [place] [address]-12-2024 10:56-0500Body duwqve279.86 kgCorey Marquita DO Work Phone: [phone])948-[address] [place] [address]-12-2024 10:56-0500Diastolic blood rpukqlzj69 mm[Hg]Edgar Marquita DO Work Phone: [phone] [place] [address]-12-2024 10:56-0500Systolic blood mm[Hg]Edgar Marquita DO Work Phone: [phone] [place] [address]-05-2024 14:03-0500Body mass index (BMI) [Ratio]44.25 kg/n9Dszrt Marquita DO Work Phone: [phone] [place] [address]-05-2024 14:03-0500Body xuuubj925.31 kgCorey Marquita DO Work Phone: [phone] [place] [address]-05-2024 14:03-0500Diastolic blood kumfavit94 mm[Hg]Edgar Marquita DO Work Phone: [phone]-[facility] [address]Nuiibgigkz84-90-2423 14:03-0500Systolic blood dtgttzyj592 mm[Hg]Edgar Marquita DO Work Phone: [facility] HealthGfftxojhma77-13-4012 13:50-0400Body mass index (BMI) [Ratio]43.54 kg/v1Kppbt Marquita DO Work Phone: [facility] HealthEzcxxgmweu15-77-4446 13:50-0400Body thldec999.49 kgCorey Marquita DO Work Phone: [phone])435-[address] [place], [place] [address]Ekqqmbrsgm46-64-8116 13:50-0400Diastolic blood xjodzvga40 mm[Hg]Edgar Marquita DO Work Phone: [phone])658-[address] [place], [place] [address]Piukkvyzrd55-69-6247 13:50-0400Systolic blood fqovrryk238 mm[Hg]Edgar Marquita DO Work Phone: [phone] [place], [place] [address]Qtpptkrfzs01-93-0760 13:30-0400Body mass index (BMI) [Ratio]44.37 kg/m2Amy Anjel CARBAJAL Work Phone: [phone] [place], [place] [address]Reigvowder52-26-4440 13:30-0400Body aajjoj863.63 kgAmy Anjel CARBAJAL Work Phone: [phone] [place], [place] [address]Xzpfzrdird70-50-9460 13:30-0400Diastolic blood fonnvqnt02 mm[Hg]Marylou CARBAJAL Work Phone: [phone] [place], [place] [address]Vjstemjqmv06-67-9874 13:30-0400Systolic blood sigqvzpx547 mm[Hg]Marylou CARBAJAL Work Phone: [phone] [place], [place] [address]Jtfcqzatph09-02-6329 11:38-0400Body mass index (BMI) [Ratio]43.93 kg/n9Usxyo Marquita DO Work Phone: 1([phone])965-[address] [place], [place] [address]Wrqprwkbmt98-97-4589 11:38-0400Body ihmnqq597.49 kgCorey Marquita DO Work Phone: 1(289)[facility] [place] [address]-24-2024 11:38-0400Diastolic blood ocdqjgor59 mm[Hg]Edgar Marquita DO Work Phone: [phone])266-[address] [place], [place] [address]Tlsauewwfu12-44-5541 11:38-0400Systolic blood mqhhitzf212 mm[Hg]Edgar Marquita DO Work Phone: [facility] HealthCachrucfgm25-07-8922 09:10-0400Body mass index (BMI) [Ratio]43.72 kg/e4Cpmnu Marquita DO Work Phone: [facility] HealthFvpwqeypqg00-29-8278 09:10-0400Body wiszdv503.95 kgCorey Marquita DO Work Phone: [facility] HealthKtwklrnsxr94-96-1083 09:10-0400Diastolic blood clhwlzvu49 mm[Hg]Edgar Marquita DO Work Phone: [facility] HealthTdlopvgmqm73-44-0669 09:10-0400Systolic blood ibnzdcjr063 mm[Hg]Edgar Marquita DO Work Phone: [facility] HealthUhqameujks76-15-0701 11:24-0400Body oraebu586.02 cmWilson Health04-18-2024 11:24-0400Body mass index (BMI) [Ratio]42.3 kg/d8QkfszkqjuWilson Health04-18-2024 11:24-0400Body inzonl942.49 kgWilson Health04-18-2024 11:24-0400Diastolic blood kgeixiqt33 mm[Hg][facility]04-18-2024 11:24-0400 Heart rate69 /[facility]04-18-2024 11:24-0400 Respiratory rate18 /[facility]04-18-2024 11:24-0400 SaO2% (BldA) [Mass fraction]98 %[facility]04-18-2024 11:24-0400Systolic blood abowrdqw226 mm[Hg][facility] 10-31-2023 15:00-0500Body .02 cmSandra Kaple Other [facility] Other 01-04-2024 15:00-0500Body mass index (BMI) [Ratio] 45.41 kg/h6Ycdqskbn Kaple Other [facility] Other 01-04-2024 15:00-0500Body tuveieukplk14.5 [degF] Sandra Austin Other [facility] Other 01-04-2024 15:00-0500Body hcsylj028.3 kgSandra Austin Other [facility] Other 01-04-2024 15:00-0500Diastolic blood uwizotlx70 mm[Hg] Sandra Austin Other [facility] Other 01-04-2024 15:00-0500Respiratory rate18 /minDerickrosette Austin Other [facility] Other 01-04-2024 15:00-4652JbC0% (BldA) [Mass fraction]98 % Sandra Austin Other [facility] Other 01-04-2024 15:00-0500Systolic blood mm[Hg] Sandra Austin Other [facility] Other 08-28-2023 14:30-0400Body movdsm843.02 cmJerosette Austin Other [facility] Other 08-28-2023 14:30-0400Body mass index (BMI) [Ratio] 44.87 kg/k5Ctxlsbycrosette Austin Other [facility] Other 08-28-2023 14:30-0400Body ebfajy069.9 kgJerosette Austin Other [facility] Other 08-28-2023 14:30-0400Diastolic blood xznmbxin88 mm[Hg] Sandra Geovanna Other [facility] Other 08-28-2023 14:30-0400Respiratory rate18 /minDerickaltagraciamonica Pendletonaldo Other [facility] Other 08-28-2023 14:30-0912MfV3% (BldA) [Mass fraction]99 % Sandra Geovanna Other [facility] Other 08-28-2023 14:30-0400Systolic blood mwlwyvnd069 mm[Hg] Sandra Geovanna Other [facility] Other 06-19-2023 09:25-0400Body scctre686.02 cmPamela Yari Other [facility] Other 06-19-2023 09:25-0400Body mass index (BMI) [Ratio]41.8 kg/w2Injqtpapoorva Greenberg Other [facility] Other 06-19-2023 09:25-0400Body sbqqxketuhp48.5 [degF]Ramonita Yari Other [facility] Other 06-19-2023 09:25-0400Body rjpsxa259.05 kgPaapoorva Greenberg Other [facility] Other 06-19-2023 09:25-0400Respiratory rate18 /minPaapoorva Greenberg Other [facility] Other 06-19-2023 09:25-3316JbO8% (BldA) [Mass fraction]97 % Ramonita Greenberg Other [facility] Other 04-27-2023 14:45-0400Body jacrnm703.02 cmJennifer Kaple Other [facility] Other 04-27-2023 14:45-0400Body mass index (BMI) [Ratio] 41.39 kg/y4Itdrjtnk Kaple Other [facility] Other 04-27-2023 14:45-0400Body oavtbb818.01 kgJennifer Keerthile Other [facility] Other 04-27-2023 14:45-0400Diastolic blood ipyduqrc11 mm[Hg] Sandra Austin Other [facility] Other 04-27-2023 14:45-0400Respiratory rate18 /minJerosette Pendletonle Other [facility] Other 04-27-2023 14:45-0098BeB3% (BldA) [Mass fraction]98 % Sandra Austin Other [facility] Other 04-27-2023 14:45-0400Systolic blood stiuymig435 mm[Hg] Sandra Austin Other [facility] Other 02-27-2023 14:30-0500Body lqisoa922.02 cmJennifer Kaple Other [facility] Other 02-27-2023 14:30-0500Body mass index (BMI) [Ratio] 40.83 kg/n0Ammttzlw Kaple Other [facility] Other 02-27-2023 14:30-0500Body sjbbaf659.55 kgJerosette Austin Other [facility] Other 02-27-2023 14:30-0500Diastolic blood ascelebe35 mm[Hg] Sandra Ausitn Other [facility] Other 02-27-2023 14:30-0500Respiratory rate18 /minSandra Austin Other [facility] Other 02-27-2023 14:30-5564XpS5% (BldA) [Mass fraction]99 % Sandra Austin Other [facility] Other 02-27-2023 14:30-0500Systolic blood qyxdwlxz729 mm[Hg] Sandra Austin Other [facility] Other 02-24-2022 16:30-0500Body cuundp433.02 cmJerosette Austin Other [facility] Other 02-24-2022 16:30-0500Body mass index (BMI) [Ratio] 38.58 kg/x1LvctemkfSandra Austin Other [facility] Other 02-24-2022 16:30-0500Body ofqrdnqegjp84.3 [degF] Sandra Austin Other [facility] Other 02-24-2022 16:30-0500Body gwtwwe23.79 kgSandra Austin Other [facility] Other 02-24-2022 16:30-0500Diastolic blood lxcvoinu37 mm[Hg] Sandra Geovanna Other [facility] Other 02-24-2022 16:30-0500Respiratory rate18 /minSandra Austin Other [facility] [place] Other 02-24-2022 16:30-7875DtB2% (BldA) [Mass fraction]99 % Sandra Ge[facility]anna [facility] [place] Other 02-24-2022 16:30-0500Systolic blood hlrbmova983 mm[Hg] Sandra [facility]ovanna Other [facility] [place] Other Encounters Encounter DateEncounter TypeCare ProviderFacilityStart: 05-04-2025 End: 86-89-9451wqurkiweelDptcgkr DeWilde DO Work Phone: [facility] Work Phone: Start: 05-04-2025 End: 69-24-9858Ydunvhi encounter procedureSandra Mcconnell EQUIPMENT OPERATOR [employer] [facility] Work Phone: Start: 04-27-2025 End: 41-71-6730Ibktzhcw ReferredLowell Ambriz EQUIPMENT OPERATOR [employer]-[facility] Work Phone: Start: 04-27-2025 End: 57-99-8655thdyxtnlcdCyqpjri DeWilde DO Work Phone: [facility] Work Phone: Start: 04-27-2025 End: 79-24-8128Lwwrpgx encounter Susan Ambriz EQUIPMENT OPERATOR [employer]-[facility] Work Phone: Start: 12-17-2024 End: 71-61-3101Tmbzeh flowsheetCorey Marquita DO Work Phone: [facility] BCP OBStart: 12-17-2024 End: 60-20-0173Xajdtv flowsheetCorey Marquita DO Work Phone: noMS BCP OBStart: 12-17-2024 End: 00-75-6159Zineseomd Result EncounterCorey Marquita DO Work Phone: [facility] External Department UnsolicitedStart: 12-17-2024 End: 86-02-9120Ohshdhy encounter procedureCorey Marquita DO Work Phone: noMS HealthcareStart: 12-17-2024 End: 28-44-0126Uvputjhf preventive med est patient 18-39 yrsCorey Marquita DO Work Phone: noms BCP OBComment on above:Well woman exam with routine gynecological examStart: 12-17-2024 End: 10-98-4217tvqxbtwimsFQHPW FAZIONot AvailableStart: 11-05-2024 End: 04-38-7814Ipyeayouwn care visitMarylou CARBAJAL Work Phone: [facility] BCP OBComment on above:6 weeks follow-up; Anxiety, generalized (CMS/HCC)Start: 11-05-2024 End: 81-01-8483qelexmclwyHUC RAMEYNot AvailableStart: 09-22-2024 End: 53-54-2507Ivnazwelx Result EncounterCorey Marquita DO Work Phone: noMS External Department UnsolicitedStart: 09-22-2024 End: 48-19-6469Gdxzdvpga Result EncounterCorey Marquita DO Work Phone: noMS External Department UnsolicitedStart: 09-21-2024 End: 51-02-2398Zthgipnfz Result EncounterCorey Marquita DO Work Phone: noms External Department UnsolicitedStart: 09-21-2024 End: 70-41-6744Uzfevnuur Result EncounterCorey Marquita DO Work Phone: [facility] External Department UnsolicitedStart: 09-17-2024 End: 26-42-1307Plnlwqngz Result EncounterCorey Marquita DO Work Phone: [facility] External Department UnsolicitedStart: 09-17-2024 End: 14-08-4004Aisoxqpyd Result EncounterCorey Marquita DO Work Phone: [facility] External Department UnsolicitedStart: 09-14-2024 End: 85-58-8564Svssgp flowsheetMarylou CARBAJAL Work Phone: [facility] BCP OBStart: 09-14-2024 End: 66-75-8179Xneobw flowsheetMarylou CARBAJAL Work Phone: [facility] BCP OBStart: 09-14-2024 End: 09-64-9933Odvqiiaf flow sheetMarylou CARBAJAL Work Phone: [facility] BCP OBComment on above:38 weeks gestation of ; Third trimester pregnancyStart: 09-14-2024 End: 19-01-0851brozcqoalhVKF ANJELNot AvailableStart: 09-10-2024 End: 10-00-3624Wlhcegqkd Result EncounterCorey Marquita DO Work Phone: [facility] External Department UnsolicitedStart: 09-10-2024 End: 26-66-5979Fiynuhiwd Result EncounterCorey Marquita DO Work Phone: [facility] External Department UnsolicitedStart: 09-08-2024 End: 53-35-0964Grtbnv flowsheetCorey Marquita DO Work Phone: [facility] BCP OBStart: 09-08-2024 End: 82-17-9274Doukmf flowsheetCorey Marquita DO Work Phone: [facility] BCP OBStart: 09-08-2024 End: 35-98-6370Ougociwh flow sheetCorey Marquita DO Work Phone: [facility] BCP OBComment on above:37 weeks gestation of ; Third trimester pregnancyStart: 09-08-2024 End: 49-19-7781gnemgbucxbDLKPT FAZIONot AvailableStart: 09-03-2024 End: 58-06-2095Qvtdmhvyu Result EncounterCorey Marquita DO Work Phone: noms External Department UnsolicitedStart: 09-03-2024 End: 23-13-4006Yykgymnbb Result EncounterCorey Marquita DO Work Phone: [facility] External Department UnsolicitedStart: 09-01-2024 End: 32-66-7848Bilxuh flowsheetCorey Marquita DO Work Phone: [facility] BCP OBStart: 09-01-2024 End: 06-23-8207Dtvzup flowsheetCorey Marquita DO Work Phone: NOBG BCP OBStart: 09-01-2024 End: 78-74-5578Gdazsiuc flow sheetCorey Marquita DO Work Phone: NOYN BCP OBComment on above:36 weeks gestation of ; Third trimester pregnancyStart: 09-01-2024 End: 40-16-8793kskmnpxtasOWPTC FAZIONot AvailableStart: 08-29-2024 End: 45-32-2454Viqmalmgf Result EncounterCorey Marquita DO Work Phone: noms External Department UnsolicitedStart: 08-29-2024 End: 19-46-2957Ikhzxmuwn Result EncounterCorey Marquita DO Work Phone: NOSB External Department UnsolicitedStart: 08-27-2024 End: 48-79-8513Thjlpwyba Result EncounterCorey Marquita DO Work Phone: noms External Department UnsolicitedStart: 08-27-2024 End: 44-02-7481Xdrxzuhnn Result EncounterCorey Marquita DO Work Phone: noms External Department UnsolicitedStart: 08-19-2024 End: 32-39-1092Yugcyfomu Result EncounterCorey Marquita DO Work Phone: noms External Department UnsolicitedStart: 08-19-2024 End: 07-55-8939Hvrvaelly Result EncounterCorey Marquita DO Work Phone: noms External Department UnsolicitedStart: 08-18-2024 End: 79-33-8969Uzlnfl flowsheetCorey Marquita DO Work Phone: noms BCP OBStart: 08-18-2024 End: 58-14-8037Lghmad flowsheetCorey Marquita DO Work Phone: noms BCP OBStart: 08-18-2024 End: 78-94-7967Fxxtxnygk Result EncounterCorey Marquita DO Work Phone: noms External Department UnsolicitedStart: 08-18-2024 End: 29-16-7877mvmulrwimmJNRSJ FAZIONot AvailableStart: 08-18-2024 End: 66-45-7961Tlymeuaq flow sheetCorey Marquita DO Work Phone: noms [facility] OBComment on above:34 weeks gestation of ; Nausea and vomiting, unspecified vomiting type; Gastroesophageal reflux disease, unspecified whether esophagitis present; Heartburn during in third trimesterStart: 08-12-2024 End: 23-21-7207Eslhoobjh Result EncounterCorey Marquita DO Work Phone: noms External Department UnsolicitedStart: 08-12-2024 End: 74-65-8870Fjjgdyvog Result EncounterCorey Marquita DO Work Phone: noms External Department UnsolicitedStart: 08-05-2024 End: 04-12-9275Itafmshoq Result EncounterCorey Marquita DO Work Phone: noms External Department UnsolicitedStart: 08-05-2024 End: 81-57-0615Cfpjpstkh Result EncounterCorey Marquita DO Work Phone: noms External Department UnsolicitedStart: 08-04-2024 End: 24-06-6366Ukcghy flowsheetMarylou CARBAJAL Work Phone: [facility] BCP OBStart: 08-04-2024 End: 50-93-2508Ldcgrh duniaheetMarylou CARBAJAL Work Phone: [facility] BCP OBStart: 08-04-2024 End: 78-12-1467ugmjhbxccpVFN Apryl AvailableStart: 08-04-2024 End: 17-45-3840Vnjqkywg flow sheetMarylou CARBAJAL Work Phone: [facility] BCP OBComment on above:32 weeks gestation of ; Third trimester ; Anxiety, generalized (CMS/HCC)Start: 07-21-2024 End: 09-76-3295Wwdovb flowsheetCorey Marquita DO Work Phone: [facility] BCP OBStart: 07-21-2024 End: 59-31-1199Zhyhcp flowsheetCorey Marquita DO Work Phone: [facility] BCP OBStart: 07-21-2024 End: 41-71-5932Cpyqnqur flow sheetCorey Marquita DO Work Phone: [facility] BCP OBComment on above:Third trimester Start: 07-21-2024 End: 08-48-6514wuapsdbdzoEWKVS FAZIONot AvailableStart: 07-07-2024 End: 15-99-8089Zellzk flowsheetCorey Marquita DO Work Phone: [facility] BCP OBStart: 07-07-2024 End: 19-82-4036Ikylzr flowsheetCorey Marquita DO Work Phone: [facility] BCP OBStart: 07-07-2024 End: 84-08-6231Ayeosewds Result EncounterCorey Marquita DO Work Phone: [facility] External Department UnsolicitedStart: 07-07-2024 End: 25-54-1649Ybfzfmml flow sheetCorey Marquita DO Work Phone: [facility] BCP OBComment on above:28 weeks gestation of ; Abnormal TSHStart: 07-07-2024 End: 80-97-1091jeqxfdtcrpIIRNT FAZIONot AvailableStart: 07-02-2024 End: 03-48-3209Uwroqeaun Result EncounterCorey Marquita DO Work Phone: NOQJ External Department UnsolicitedStart: 07-02-2024 End: 56-88-6550Ztajxcssb Result EncounterCorey Marquita DO Work Phone: NORB External Department UnsolicitedStart: 2024 End: 51-07-4882aamjjgfywzPEMPG FAZIONot AvailableStart: 05-12-2024 End: 55-97-3441Faqktmtdt Result EncounterCorey Marquita DO Work Phone: [facility] External Department UnsolicitedStart: 05-12-2024 End: 22-82-9715Hhlnjknnu Result EncounterCorey Marquita DO Work Phone: noms External Department UnsolicitedStart: 05-12-2024 End: 07-92-7165flkiuxqmjmUWS RAMEYNot AvailableStart: 04-16-2024 End: 04-74-8857svwmuwngmoYNRIE FAZIONot AvailableStart: 03-17-2024 End: 12-68-2494zoqbyfismvGJBVN FAZIONot AvailableStart: 03-16-2024 End: 89-84-5952Mtmwlzldu Result EncounterCorey Marquita DO Work Phone: NOCV External Department UnsolicitedStart: 03-16-2024 End: 35-25-5385Kbsfvimba Result EncounterCorey Marquita DO Work Phone: noms External Department UnsolicitedStart: 02-14-2024 End: 66-36-4713Tklqlnzlv Result EncounterCorey Marquita DO Work Phone: [facility] External Department UnsolicitedStart: 02-14-2024 End: 94-77-0282Bsayrmfup Result EncounterCorey Marquita DO Work Phone: noms External Department UnsolicitedStart: 02-14-2024 End: 38-82-9572rpbxzlrsrvRDRCS Kayla AvailableStart: 02-13-2024 End: 52-22-9157gezifmveanDijvpvhodTrinity Health System Work Phone: Start: 02-13-2024 End: 09-07-2407Ncgmqty encounter procedureCarolinas [facility] Work Phone: Start: 20-83-3530Isp-patient / Non-visitCarolinas [facility] [employer] Work Phone: Start: 10-31-2023 End: 22-68-1641uxvdpenuvrZjepyhxw Kaple Other [facility] Other Start: 54-19-7688Urzblt outpatient visit 25 minutes [facility]: 07-19-2023 End: 45-85-5847emtjwqtaymKaarhgkn Kaple Other [facility] Other Start: 56-81-1686Tyddbwpcx encounterJennifer KapleFPG [facility] CenteryStart: 06-24-2023 End: 03-41-1775dgayhopkaePcqysjqf Kaple Other [facility] Other Start: 15-34-4510Bugqpn outpatient visit 25 minutes [facility] SandcarltonyStart: 06-04-2023 End: 27-57-1303eyllslapqcDfetjwvq Kaple Other [facility] Other Start: 72-76-4599Wqqqzythw encounterJennifer KapleFPG Primary CareStart: 04-15-2023 End: 76-59-7403dugiezhvbqCnawam Dymond Other [facility] Other Start: 73-95-5434Awpdkh outpatient visit 15 minutes Ramonita OlmanG [facility] ClydeStart: 04-11-2023 End: 28-44-8943vhnjzibqdmWnirqstp Kaple Other [facility] Other Start: 27-99-3453Xofqonukq encounterJennifer KapleFPG [facility] SandcarltonyStart: 82-67-3765Mzrkjc outpatient visit 25 minutes Sandra AustinFPG [facility] [place]kyStart: 02-21-2023 End: 99-83-7564qzndiuxhlvNKNPNEAT KAPLENorth [place] Other Start: 01-04-2023 End: 45-48-2187rzqtaqepwkOyrdhvxg Kaple Other [facility] Other Start: 73-00-3592Uvwviqfgx encounterJennifer KapleFPG [facility] SandcarltonyStart: 85-11-7020Nugdggyiy for general adult medical examination without abnormal findingsJENNIFER KAPLEThe [facility] Clinic Lutheran Hospitaltart: 12-27-2022 End: 97-67-9780iklrzvhzwbVnfjbilx Kaple Other [facility] Other Start: 94-62-5220Qdodnlqzt encounterJennifer KapleFPG Primary CareStart: 12-26-2022 End: 32-91-6469vynuwccmtaWOEAZYJD KAPLEFacility:P3Wlkex: 12-26-2022 End: 20-88-2557Wbybkcydb for general adult medical examination without abnormal findingsJENNIFER KAPLEFacility:S5Aitlp: 12-24-2022 End: 56-34-4592aouyujfqwpIvjsgshc Kaple Other [facility] Other Start: 39-35-6092Pprpmnqmc for general adult medical examination without abnormal findingsJennifer KapleFPG [facility] [place] Start: 79-99-1751Dgzhkntq preventive med est patient 18-39 yrsJennifer KapleFPG [facility] SanduskyStart: 12-10-2022 End: 36-36-6176hdjzbzdevfOH EDGAR MARQUITA .Facility:I0Czowk: 09-12-2022 End: 54-96-7740jmkrocirpeCL EDGAR MARQUITA .Facility:D7Brvgu: 09-10-2022 End: 73-19-3893fwbiychinmMB EDGAR MARQUITA .Facility:J4Ehjql: 09-05-2022 End: 32-73-7103Hzxlrojyox and management of inpatientDR EDGAR MARQUITA .Facility:H1 Start: 08-31-2022 End: 13-46-5812utfhyzhazzKM EDGAR MARQUITA .Facility:Q0Eohnr: 08-30-2022 End: 37-52-8207qgxlixexilENOJLUCG KAPLEFacility:H6Ahzsk: 08-24-2022 End: 18-19-3131rkvnnvaihjCEZRZXCA KAPLEFacility:Q9Mcoit: 08-21-2022 End: 09-19-7688celacgrtscLQHDLDAT KAPLEFacility:R1Kkbrl: 08-17-2022 End: 80-17-6691zodhofgnrwXTXRASWX GEORGEFacility:T5Glinh: 08-15-2022 End: 69-31-0061lfoxygdapkEI EDGAR MARQUITA .Facility:Q5Dsxtd: 08-10-2022 End: 44-77-9804xqfyrnvgoyYJPJLIIF KAPLEFacility:P1Dcimj: 07-25-2022 End: 87-20-0511wedyrsekawSGOBLJXP KAPLEFacility:W9Skcue: 07-24-2022 End: 72-51-9155fjqxrblifiFNFDNDFO KAPLEFacility:N9Ahegl: 07-20-2022 End: 57-67-2248wofyeooduyMJKUSVBU KAPLEFacility:E8Sxbfp: 06-27-2022 End: 58-26-5856andmwzymiaDLUNVRAO KAPLEFacility:O3Mgizk: 06-20-2022 End: 25-94-7962cmrskkhxyhXOPFTUXA KAPLEFacility:C9Cidpf: 05-24-2022 End: 38-23-2467acshqplrrlLTBDUWUF KAPLEFacility:N8Srqcp: 04-26-2022 End: 93-03-9730okicplkhywAIPAKWPS KAPLEFacility:P4Ejyut: 04-17-2022 End: 29-15-0534qlryaufceoDBAFGYGT KAPLEFacility:C3Xsiyn: 04-05-2022 End: 00-92-3768vofqjgcmoeAYUNQJSC KAPLEFacility:F8Ljiux: 02-26-2022 End: 55-70-4786ghqajnmymrXNLEUQHC KAPLEFacility:P7Eaaza: 12-21-2021 End: 48-95-4673etdqylmdhbPsrsrzza Kaple Other [facility] [place] Other Start: 62-94-9301Sihauv outpatient new 45 minutes Sandra Riddle [facility] [place] Procedures DateProcedureProcedure DetailPerforming ClinicianStart: 99-86-4218Tixkj Strep (POC)Blanca DeWilde DO Work Phone: Start: 33-43-6454Apekke cultureMelissa DeWilde DO Work Phone: Start: 55-26-3941VBR,APTIMA HPV,AGE GDLNCorey Marquita DO Work Phone: Start: 55-21-5832RFI CBC WITH AUTO DIFFCorey Marquita DO Work Phone: Start: 96-09-7487ZNWD CBC WITH PLATELET NO DIFFERENTIALCorey Marquita DO Work Phone: Start: 11-97-5513HU OB BPP W NON-STRESSCorey Marquita DO Work Phone: Start: 16-98-5208Yufvq dip stick/tablet rgnt non-auto w/o micrscpAmy Anjel CARBAJAL Work Phone: Start: 89-83-9211JE OB BPP W NON-STRESSCorey Marqiuta DO Work Phone: Start: 30-50-2562Ypqso dip stick/tablet rgnt non-auto w/o micrscpCorey Marquita DO Work Phone: Start: 23-39-8625AZ OB BPP W NON-STRESSCorey Marquita DO Work Phone: Start: 98-61-8066Juugm dip stick/tablet rgnt non-auto w/o micrscpCorey Marquita DO Work Phone: Start: 01-66-7875ARK THYROID STIM HORMONECorey Marquita DO Work Phone: Start: 79-25-9062BB OB BPP W NON-STRESSCorey Marquita DO Work Phone: Start: 16-78-6017TR OB BPP W NON-STRESSCorey Marquita DO Work Phone: Start: 15-68-4684Hligk dip stick/tablet rgnt non-auto w/o micrscpCorey Marquita DO Work Phone: Start: 13-59-6524IF OB GROWTHCorey Marquita DO Work Phone: Start: 13-44-8077CC OB BPP W NON-STRESSCorey Marquita DO Work Phone: Start: 81-40-6308SJ OB BPP W NON-STRESSCorey Marquita DO Work Phone: Start: 20-33-7130LWQ THYROID STIM HORMONECorey Marquita DO Work Phone: Start: 89-28-6691Dwpig dip stick/tablet rgnt non-auto w/o micrscpAmy Anjel CARBAJAL Work Phone: Start: 82-71-1316Zvkqk dip stick/tablet rgnt non-auto w/o micrscpCorey Marquita DO Work Phone: Start: 38-52-4636ND OB GROWTHCorey Marquita DO Work Phone: Start: 59-65-1269Veycc dip stick/tablet rgnt non-auto w/o micrscpCorey Marquita DO Work Phone: Start: 73-03-1407FAS CBC WITH AUTO DIFFCorey Marquita DO Work Phone: Start: 65-82-2909LT OB ANATOMYCorey Marquita DO Work Phone: Start: 95-73-8325VK OB CERVICAL LENGTHCorey Marquita DO Work Phone: Start: 80-75-7117QK OB L= 14 WEEKS FETUSCorey Viratech DO Work Phone: Start: 02-25-1468MI OB TRANSVAGINALCorey Marquita DO Work Phone: Start: 79-87-3853Izqzyuwk of Products of Conception, External ApproachJENNIFER KAPLEStart: 53-91-0420Lioxmwuh of Female Perineum, External ApproachJENNIFER KAPLEStart: 93-07-4457Diuoxjmz of Amniotic Fluid, Therapeutic from Products of Conception, Via Natural or Artificial Opening SANDRA KAPLEStart: 52-54-1081Cqfbkaprsxti of Hormone into Female Reproductive, Via Natural or Artificial OpeningJENNIFER KAPLEStart: 00-89-9941Nnqdmgfjkvin of Other Hormone into Peripheral Vein, Percutaneous ApproachJENNIFER KAPLEStart: 20-12-0555Baxwvt Perineum Muscle, Open ApproachJENNIFER KAPLE Plan of Treatment DateCare ActivityDetailAuthorStart: 12-21-2025 End: 36-49-1759Submhis encounter procedureNOMS BCP OBStart: 70-58-9018Bdvhhu cultureThroat CultureMercy Health Springfield Regional Medical Centertart: 65-49-9747Yuolhefg identified in Throat by Aerobe cultureMercy Health Springfield Regional Medical Centertart: 12-17-2024 End: 92-49-5841Yplovgg encounter procedureNOMS BCP OBComment on above:Arrived Start: 09-08-2024 End: 71-49-2262Jitwart encounter zfvwimxxz16/12/2024 10:50 AM EST Routine [facility] [address] [facility] [place] [id number] Edgar Juárez, DO [address] [place] [address] [facility] BCP OBStart: 09-01-2024 End: 97-89-4582Ouwfh B DNA probe, amplificationStrep B DNA probe, amplification Lab Routine Third trimester Expected: 09/01/2024 (Approximate), Expires: 09/01/2025[facility] Work Phone: comment on above:Expected: 09/01/2024 (Approximate), Expires: 09/01/2025Start: 09-01-2024 End: 82-85-1752Omhjsyx encounter procedureNOMS BCP OBComment on above:Arrived Start: 08-18-2024 End: 62-56-7868Ymqshpr encounter uqiumciek08/22/2024 1:30 PM EDT Routine [facility] [address] [facility] [place] [address] Edgar Juárez, DO [address] [place] [address] [facility]OMS BCP OBStart: 08-18-2024 End: 20-92-8425Zgnhlxzudlor / ancillary services nntprixeed48/22/2024 1:00 PM EDT Ancillary Procedure [facility] [address] [place] [id number] [facility] BCP OBStart: 08-04-2024 End: 73-19-5655Kacaxap encounter xbkrustls65/08/2024 1:20 PM EDT Routine [facility] [address] [place] [id number] Marylou Hobbs PA [address] [place] [address] [facility] BCP OBStart: 07-21-2024 End: 75-22-6648Fjmluwg encounter procedureNOMS BCP OBComment on above:Arrived Start: 07-07-2024 End: 03-99-2340HY biophysical profile w non stress testUS biophysical profile w non stress test Imaging Routine 28 weeks gestation of Abnormal TSH Expected: 07/07/2024 (Approximate), Expires: 07/07/2025 [facility] Work Phone: comment on above:Expected: 07/07/2024 (Approximate), Expires: 07/07/2025Start: 07-07-2024 End: 48-20-9647Rkvwlym encounter procedureNOMS BCP OBComment on above:Arrived Start: 07-07-2024 End: 90-67-4949Erwupxfgqomx / ancillary services ncrndaxhvt03/10/2024 8:30 AM EDT Ancillary Procedure [facility] [address] [facility] [place] [address] [facility] BCP OBCytology Cervical or vaginal smear or scraping studyPap Smear Pathology and Cytology Routine Well woman exam with routine gynecological exam Ordered: 12/17/2024[facility] Work Phone: comment on above:Ordered: 12/17/2024Patient Education Low back pain in [facility]South[facility] Work [facility]: Immunizations Immunization DateImmunizationNotesCare [id number], tetanus toxoids and pertussis vaccineCorey Marquita DO Work Phone: [facility]Acajhfdqtr34-67-0454ogilmpcejhml conjugate vaccine, 13 valentCorey Marquita DO Work Phone: [facility] HealthEwfbjidbkh99-64-7860bwqhrypajx, tetanus toxoids and acellular pertussis vaccine, unspecified formulationCorey Marquita DO Work Phone: [facility] HealthAybqdfylxw48-98-3528zdphilgbaap influenzae type b vaccine, HbOC conjugateCorey Marquita DO Work Phone: [facility] HealthVovtsnevqn69-17-0274mkouhfk, mumps and rubella virus vaccineCorey Marquita DO Work Phone: [facility] HealthLqvnfonens02-33-4878srsubrddg poliovirus vaccine, live, oralCorey Marquita DO Work Phone: [facility] HealthZovhnwgkxl57-69-2778ujejtjevoa, tetanus toxoids and acellular pertussis vaccine, unspecified formulationCorey Marquita DO Work Phone: [facility] HealthYgmavztmxc71-50-1929gmifyrhbdgj influenzae type b conjugate and Hepatitis B vaccineCorey Marquita DO Work Phone: [facility] HealthScglapgtwl57-80-7801nyfzquiqim, tetanus toxoids and acellular pertussis vaccine, unspecified formulationCorey Marquita DO Work Phone: [facility] HealthTovypehoxq21-10-1887yldmsgqvveg influenzae type b vaccine, HbOC conjugateCorey Marquita DO Work Phone: [facility] HealthWeudbmzxsd83-35-2532ozkhzrnvlm vaccine, inactivatedCorey Marquita DO Work Phone: [facility] HealthTqxqlakttf78-93-9307ooygfpcahw, tetanus toxoids and acellular pertussis vaccine, unspecified formulationCorey Marquita DO Work Phone: [facility] HealthNstyvddkpe57-80-3271hinbxupmksn influenzae type b conjugate and Hepatitis B vaccineCorey Marquita DO Work Phone: [facility] HealthTamzxvqfpi03-28-2479ykuuunjqre vaccine, inactivatedCorey Marquita DO Work Phone: [facility] HealthUgdvortnmz69-37-8880nvizctqkg B vaccine, pediatric or pediatric/adolescent dosageCorey Marquita DO Work Phone: [facility] Payers DatePayer CategoryPayerPolicy [id number] [id number] [employer] [id number] 2021-Present [address] [place] [id number].2.7.3.930[id number] 2.16.840.8.94574[id number] 2.16.840.1.786875.3.579.2.593 59-04-3301Pluwhnl7142339 2.16.840.1.361934.3.579.2.93107-53-6958Yakdkfd7170511 2.16.840.1.933910.3.579.2.75493-73-1112Fterfzk3165704 2.16.840.1.653892.3.579.2.19482-62-5489Jhfkjtk4377359 2.16.840.1.486895.3.579.2.05189-42-0776Eqbmofg7117181 2.16.840.1.378014.3.579.2.79[id number] 2.16.840.1.835827.3.579.2.28724-21-4480Liuzltq5927975 2.16.840.1.765810.3.579.2.72152-17-5383Ncmgymv8803741 2.16.840.1.411864.3.579.2.11181-89-0983Yulpouh7182955 2.16.840.1.555033.3.57[id number] 2.16.840.1.649894.3.579.2.37810-16-2440Bpjyigy7439728 2.16.840.1.720040.3.579.2.75938-02-8905Bkcfucq3589535 2.16.840.1.998416.3.579.2.82946-87-9290Ovanrwe2524034 2.16.840.1.938181.3.579.2.77036-98-9332Cowfikh1657153 2.16.840.1.041612.3.579.2.39945-15-4683Ccbxipv8896711 2.16.840.1.790840.3.579.2.24745-28-6617Peqebun9318869 2.16840.1.756744.3.579.2.75104-13-5705Epuixgt4290345 2.16840.1.421848.3.579.2.69375-48-4418Rknhlgq5214124 2.16840.1.189439.3.579.2.84042-51-6555Mudsqeg6764545 2.840.1.986632.3.579.2.36450-22-6400Ahpfske9250548 2.840.1.049189.3.579.2.85976-43-5025Niijlez2866450 2.840.1.892273.3.579.2.69901-91-5336Swrkrdp1983213 2.840.1.454175.3.57[id number] 2.840.1.014130.3.579.2.937376-26-0028Farpyqa0516370 2.840.1.840103.3.579.2.590087-57-9014Jyiinpa7105176 2.840.1.184920.3.579.2.067014-50-8069Ztoyucr1968797 2.840.1.347263.3.579.2.181750-59-5198Dwmxsej7872256 2.16840.1.522511.3.579.2.137573-54-2788Cqeuejs2709112 2.16.840.1.039288.3.579.2.129076-45-4563Efvxuzr4991439 2.16.840.1.033504.3.579.2.410778-66-7826Nfbllwo8328267 2.16.840.1.473443.3.579.2.505579-01-4263Tbzppqw4960153 2.16.840.1.375844.3.579.2.668063-03-0756Qejdrkz8277277 2.16.840.1.702187.3.579.2.798206-07-1091Tazfiua3941054 2.16.840.1.736557.3.579.2.218812-78-3072Synzvki0103534 2.16.840.1.112166.3.57[id number] 2.16.840.1.337571.3.579.2.920404-95-7274Zebsxgo7948996 2.16.840.1.506369.3.579.2.1259 [id number] 2.840.2.060373.32182094-37-0223[facility] [id number] 2..1.423719.19AgrwdydKggbumcjbC2046693075 0em58435-9wn3-13nb-o05k-[id number] 2.0.1.229611.3.579.2.531 Social History DateTypeDetailFacilityStart: 08-02-2023 End: 00-59-2297Oug Assigned At [facility] [place] Other Start: 82-21-7565Lrz [facility]igned At [facility] Daytontart: 08-02-2023 End: 77-71-3543Jdjbtlr smoking status NHISNever smoked tobaccoNOMS Healthcare Start: 17-36-9033Yqwtpxm use and exposureSmokeless tobacco non-userNOVA HealthcareStart: 05-12-2024 End: 45-82-5183Kqpnsmvxr beverage intakeEx-drinker (finding)[facility] Start: 08-02-2023 End: 33-19-2900Smwhvxs of Social functionNOMS HealthcareStart: 01-03-2024 PregnancyNOMS HealthcareStart: 33-66-4357Yvf assigned at birthNot on fileNOVA HealthcareTobacco smoking status NHISUnknown if ever smokedSouthwest General Health Center Work Phone: SexFemale (finding)[facility] Start: 07-09-6458FpwWarddrJYZO Healthcare Clinical Notes 12-21-2021 to 04-27-2025 Note Date & AhqeFspaIojiakfe18-16-1751 Evaluation note* Diagnosis Onset Date Resolution Status Admit Date Pharyngitis noneactiveJuly 2024 10:24am [facility] Work Phone: 1(381) 219-967207-01-2025 Evaluation note* Diagnosis Onset Date Resolution Status Admit Date Pharyngitis noneactiveJuly 2024 10:24amAnxietyacuteJuly 2024 1:54pmDepressionacute Amanda 2024 1:54pmHypothyroidismacuteJuly 2024 1:54pm [facility] Work Phone: 1(604) 888-464102-20-2025 History of Present illness Narrative* Justine Mathew LPN - 12/17/2024 8:30 AM EST Reason for Appointment: Patient ID: Sofia Forbes is a 29 y.o. female who presents for Well Women Visit Patient presents today for Annual Exam. MEDICATIONS Current Outpatient Medications Medication Instructions cetirizine (ZYRTEC) 10 mg, Daily citalopram (CELEXA) 40 mg, Oral, Daily desogestrel-ethinyl estradiol (Apri) 0.15-30 MG-MCG tablet 1 tablet, Oral, Daily, Take 1 tablet by mouth daily levothyroxine (SYNTHROID, LEVOXYL) 50 mcg, Daily before breakfast Natural Vitamin D-3 5,000 Units, Daily Cbmrzbac-Niv-Gn-FA ( 1 + IRON PO) Take by [...] appearance. She is well-developed. Genitourinary: Vulva normal. Breasts: Breasts are soft. Right: Normal. Left: Normal. Cardiovascular: Rate and Rhythm: Normal rate and [...] nursing note reviewed. Exam conducted with a grubber present. Vitals: Estimated body mass index is 44.43 kg/m as calculated from the following: Height as of 08/02/23: 5' 3 . Weight as of this encounter: 250 lb 12.8 oz. BP: 118/82 Patient's last menstrual period was 11/23/2024. ASSESSMENT & PLAN ICD-10-CM 1. Well woman exam with routine gynecological exam Z01.419 Pap Smear citalopram (CeleXA) 40 MG tablet desogestrel-ethinyl estradiol (Apri) 0.15-30 MG-MCG tablet Annual Exam: Patient presents today for an annual exam. Patient states she is doing well and has no complaints. Pap was obtained without difficulty. Follow Up: Patient is to return in one year for annual unless needed otherwise. Documented by Justine Mathew LPN on behalf of: Edgar Juárez DO documented in this encounterPhelps HealthUxrctkpxnh68-51-9147 History of Present illness Narrative* SOLOMON Turner - 11/05/2024 2:00 PM EST Reason for Appointment: Patient ID: Sofia Forbes is a 29 y.o. female who presents for Care (PT present today for 6 week post visit. Pt delivered on 09/21/2024 vaginally. ) Patient presents today for Post Follow Up appointment. MEDICATIONS Current Outpatient Medications Medication Instructions cetirizine (ZYRTEC) 10 mg, Daily citalopram (CELEXA) 20 mg, Oral, Daily levothyroxine (SYNTHROID, LEVOXYL) 50 mcg, Daily before breakfast Natural Vitamin D-3 5,000 Units, Daily Jhfstmvw-Mfx-Fu-FA ( 1 + IRON PO) Take by [...] behalf of: SOLOMON Turner documented in this encounterPhelps HealthVsaabuiltd52-74-2377 History of Present illness Narrative* SOLOMON Turner - 09/14/2024 10:10 AM EST Reason for Appointment: Patient ID: Sofia Forbes is a 29 y.o. female who [...] breakfast, Do not crush, chew, or split. Ruishxvj-Xrz-Lk-FA ( 1 + IRON PO) Take by [...] Bharati Cedeno LPN on behalf of: SOLOMON Turner13070 documented in this encounterPhelps HealthJnjfeaiwzk67-08-9100 History of Present illness Narrative* Justine Mathew LPN - 09/08/2024 10:50 AM EST Reason for Appointment: Patient ID: Sofia Forbes is a 29 y.o. female who [...] breakfast, Do not crush, chew, or split. Ksiyrkjr-Jrw-Bk-FA ( 1 + IRON PO) Take by [...] nursing note reviewed. Exam conducted with a grubber present. Vitals: Estimated body mass index is [...] of: Edgar Juárez DO documented in this encounterPhelps HealthBqlgetmiua82-07-0865 History of Present illness Narrative* Keena Broussard LPN - 09/01/2024 1:30 PM EST Reason for Appointment: Patient ID: Sofia Forbes is a 29 y.o. female who [...] 4 mg, Oral, Every 6 hours PRN Ysiupmjv-Kjy-Aj-FA ( 1 + IRON PO) Take by [...] nursing note reviewed. Exam conducted with a grubber present. Vitals: Estimated body mass index is [...] of: Edgar Juárez DO documented in this encounterPhelps HealthYspobgaccj26-56-1600 History of Present illness Narrative* Justine Mathew LPN - 08/18/2024 1:30 PM EDT Patient voiced that she has been sick for the past 1.5 weeks, patient had mild case of Hand/Foot/Mouth. Patient has had a decrease in appetite & down 5 pounds as well as increase in acid reflux. Patient would like to know if Omeprazole could be increased in dosage. --ss * Keena Broussard LPN - 08/18/2024 1:30 PM EDT Reason for Appointment: Patient ID: Sofia Forbes is a 29 y.o. female who presents for Routine Visit (Patient voiced that she has been sick for the past 1.5 weeks, patient had mild case of Hand/Foot/Mouth. Patienthas had a decrease in appetite & down [...] before breakfast, Do not crush or chew. Rftywuem-Dhi-Vg-FA ( 1 + IRON PO) Oral ALLERGIES [...] nursing note reviewed. Exam conducted with a grubber present. Vitals: Estimated body mass index is [...] of: Edgar Juárez DO documented in this encounterNOMS Xhxxsadysk54-68-2337 History of Present illness Narrative* SOLOMON Turner - 08/04/2024 1:20 PM EDT Reason for Appointment: Patient ID: Sofia Forbes is a 29 y.o. female who [...] before breakfast, Do not crush or chew. Uxqmximh-Vsy-Vn-FA ( 1 + IRON PO) Oral ALLERGIES [...] feels like it has been getting worse. Shestates she was on Zoloft previously but it made her feel zoned out. Orders Placed This Encounter Procedures POCT urinalysis dipstick manually resulted Follow Up: Patient is to return to office in 2 week for routine OB appointment. Documented by Gwen Vickers on behalf of: SOLOMON Turner documented in this encounterPhelps HealthSebvcaypmw64-00-9060 History of Present illness Narrative* Keena Broussard, PR INTERN - 07/21/2024 11:10 AM EDT Reason for Appointment: Patient ID: Sofia Forbes is a 29 y.o. female who [...] before breakfast, Do not crush or chew. Wxgdpwnl-Uzo-Fs-FA ( 1 + IRON PO) Oral ALLERGIES [...] nursing note reviewed. Exam conducted with a grubber present. Vitals: Estimated body mass index is [...] of: Edgar Juárez DO documented in this encounterPhelps HealthXgqmaxjhdw11-78-8204 History of Present illness Narrative* Keena Broussard LPN - 07/07/2024 9:10 AM EDT Reason for Appointment: Patient ID: Sofia Forbes is a 29 y.o. female who [...] before breakfast, Do not crush or chew. Vtwqttqx-Yuk-Li-FA ( 1 + IRON PO) Oral ALLERGIES [...] nursing note reviewed. Exam conducted with a grubber present. Vitals: Estimated body mass index is [...] of: Edgar Juárez DO documented in this encounterPhelps HealthWddwbxxbvf72-89-4028 Evaluation note* Encounter Date Diagnosis Assessment Notes Treatment Notes Treatment Clinical Notes Oct, Prediabetes (ICD-10 - R73.03) In office hgba1c shows good control with diet and exercise. Will continue current treatment plan. Patient is advised to work on healthy diet choices and appropriate servings, weight control, regular exercise as directed, reduced fat intake, and salt avoidance. Patient voiced understanding of this and agrees to this plan. 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 Specialty notes reviewed as received. Patient is advised to work on healthy diet choices and appropriate servings, weight control, regular exercise as directed, reduced fat intake, and salt avoidance. Patient voiced understanding of this and agrees to this plan. Oct,Other specified hypothyroidism (ICD-10 - E03.8) UTD with lab work. Continue Synthroid 50 mcg daily. Oct,nxiety (ICD-10 - F41.9) No suicidal or homicidal ideations. Stable without medication. Oct,Vitamin D insufficiency (ICD-10 - E55.9) UTD with lab work. Continue 6,000 units daily of Vitamin D. Oct,Severe obesity (BMI >= 40) (ICD-10 - E66.01) Patient is advised to work on healthy diet choices and appropriate servings, weight control, regular exercise as directed, reduced fat intake, and salt avoidance. Patient voiced understanding of thisand agrees to this plan. Oct,ronchitis (ICD-10 - J40) Discussed diagnosis with patient. Patient to start Zithromax. Patient to take Zithromax daily with food as prescribed. Finish entire course of antibiotic. Increase fluids and rest. Vmfk-uey-skchvkn antipyretics as needed. Warning signs and symptoms reviewed with patient today. Patient to go immediately to the ER should she experience any of these. Patient to notify office should her symptoms persist and not improve. Patient verbalizes understanding and agrees to treatment plan. [facility] Other 09-22-2023 Evaluation note* Encounter Date Diagnosis Assessment Notes Treatment Notes Treatment Clinical Notes Jun, Vitamin D insufficiency (ICD-10 - E55.9) [facility] Other 08-28-2023 Evaluation note* Encounter Date Diagnosis Assessment Notes Treatment Notes Treatment Clinical Notes May, Prediabetes (ICD-10 - R73.03) Recent lab work reviewed with her from [place]. In office hgba1c shows good control with diet and exercise. Will continue current treatment plan. Patient is advised to work on healthy diet choices and appropriate servings, weight control, regular exercise as directed, reduced fat intake, and salt avoidance. Patient voiced understanding of this and agrees to this plan. May,COS (polycystic ovarian syndrome) (ICD-10 - E28.2) She will continue to follow with OB-COMPLIANCE AND CONTROL ANALYST and continue healthy lifestyle changes that she has made. Specialty notes reviewed as received. Patient is advised to work on healthy diet choices and appropriate servings, weight control, regular exercise as directed, reduced fat intake, and salt avoidance. Patient voiced understanding of this and agrees to this plan. May,Other specified hypothyroidism (ICD-10 - E03.8) Lab work reviewed with patient. It appears she is not getting enough thyroid medication. Will increase to Synthroid 50 mcg daily. Recheck in 6 weeks. May,nxiety (ICD-10 - F41.9) No suicidal or homicidal ideations. Stable without medication. May,Vitamin D insufficiency (ICD-10 - E55.9) Reviewed recent lab work with patient. Almost to goal on the 5,000 units daily. Will increase to 6,000 units daily and recheck in 6 weeks. May,Severe obesity (BMI >= 40) (ICD-10 - E66.01) Patient is advised to work on healthy diet choices and appropriate servings, weight control, regular exercise as directed, reduced fat intake, and salt avoidance. Patient voiced understanding of thisand agrees to this plan. May,Right ear pain (ICD-10 - H92.01) She has had right ear itching and burning pain for a few months now not relieved with Ciprodex, Flonase, or antihistamines. Referral sent to ENT today. Specialty notes reviewed as received. [facility] Other 08-08-2023 Evaluation note* Encounter Date Diagnosis Assessment Notes Treatment Notes Treatment Clinical Notes May, Other atopic dermatitis (ICD-10 - L20.89) May,cute otitis externa of both ears, unspecified type (ICD-10 - H60.503) [facility] Other 06-19-2023 Evaluation note* Encounter Date Diagnosis Assessment Notes Treatment Notes Treatment Clinical Notes Mar, Sore throat (ICD-10 - J02.9) Mar,Strep pharyngitis (ICD-10 - J02.0)Strep throat material was printed Drink plenty fluids, get plenty of rest. Take the amoxicillin as prescribed until gone. Take Tylenol or Motrin as needed for aches pains or fevers. Off work today and tomorrow. Follow-up with family physician if no improvement in 2 to 3 days [facility] Other 06-15-2023 Evaluation note* Encounter Date Diagnosis Assessment Notes Treatment Notes Treatment Clinical Notes Mar, Anxiety (ICD-10 - F41.9) [facility] Other 04-27-2023 Evaluation note* Encounter Date Diagnosis [...] office should symptoms persist and not improve. Jan,Vitamin D insufficiency (ICD-10 - E55.9) Taking 2000 units daily. Reviewed her levels with her and she is still on the low side. Will increase her to 5000 units daily. Will plan on rechecking her at her visit in May. Jan,nxiety (ICD-10 - F41.9) No suicidal or homicidal ideations. She is doing very well on Celexa 40 mg daily. Will continue this. Jan,OtherAlk phos recheck remained about the same, should normalize over post period. Will plan on rechecking this at May appointment. [facility] Other 03-10-2023 Evaluation note* Encounter Date Diagnosis Assessment Notes Treatment Notes Treatment Clinical Notes Dec, Bacterial conjunctivitis (ICD-10 - H10.9) [facility] Other 03-02-2023 Evaluation note* Encounter Date Diagnosis Assessment Notes Treatment Notes Treatment Clinical Notes Dec, Vitamin D insufficiency (ICD-10 - E55.9) Dec,Elevated alkaline phosphatase level (ICD-10 - R74.8) Dec,Other specified hypothyroidism (ICD-10 - E03.8) [facility] Other 02-27-2023 Evaluation note* Encounter Date Diagnosis [...] of this and agrees to this plan. Nov,Well adult exam (ICD-10 - Z00.00) Routine lab work ordered. Follow routinely with eye doctor, dentist, COMPLIANCE AND CONTROL ANALYST. Patient is advised to work on healthy diet choices and appropriate servings, weight control, regular exercise as directed, reduced fat intake, and salt avoidance. Patient voiced understanding of this and agrees to this plan. Nov,COS (polycystic ovarian syndrome) (ICD-10 - E28.2) Routine lab work ordered. She will continue to follow with OB-COMPLIANCE AND CONTROL ANALYST and continue healthy lifestyle changes that she has made. Specialty notes reviewed as received. Patient is advised to work on healthydiet choices and appropriate servings, weight control, regular exercise as directed, reduced fat intake, and salt avoidance. Patient voiced understanding of this and agrees to this plan. Nov,Other specified hypothyroidism (ICD-10 - E03.8) Routine lab work ordered. She is taking Synthroid 50 mcg daily. Will continue current treatment plan pending lab results. Nov,nxiety (ICD-10 - F41.9) No suicidal or homicidal ideations. Started on Celexa by her COMPLIANCE AND CONTROL ANALYST. Very stable on Celexa 20 mg daily. Our office will take this over. Nov,Severe obesity (BMI >= 40) (ICD-10 - E66.01) Patient is advised to work on healthy diet choices and appropriate servings, weight control, regular exercise as directed, reduced fat intake, and salt avoidance. Patient voiced understanding of thisand agrees to this plan. Nov,OtherShe will utilize Flonase OTC for small effusions to her ears bilaterally. She will notify office should pressure in her ears still persist after starting this. [facility] Other 02-24-2022 Evaluation note* Encounter Date Diagnosis Assessment Notes Treatment Notes Treatment Clinical Notes Nov, Prediabetes (ICD-10 - R73.03) She was recently dx with prediabetes and was started on Metformin 500 mg BID 2 weeks ago by her OB-COMPLIANCE AND CONTROL ANALYST. She would like to follow with our office for this. She will complete community lab screenings in 4-6 weeks to make sure tolerating her Metformin well. Follow up in 3 months to recheck hgba1c. Patient is advised to work on healthy diet choices and appropriate servings, weight control, regular exercise as directed, reduced fat intake, and salt avoidance. Patient voiced understanding of this andagrees to this plan. Nov,COS (polycystic ovarian syndrome) (ICD-10 - E28.2) She is following with her OB-COMPLIANCE AND CONTROL ANALYST for her PCOS and is currently on Metformin 500 mg BID and is taking medication to help her get . She will continue to follow with OB-COMPLIANCE AND CONTROL ANALYST and continue healthy lifestyle changes that she has made. Specialty notes reviewed as received. Patient is advised to work on healthy diet choices and appropriate servings, weight control, regular exercise as directed, reduced fat intake, and salt avoidance. Patient voiced understanding of this and agrees to this plan. Nov,ther specified hypothyroidism (ICD-10 - E03.8) Recent lab work reviewed. She was recently put on Synthroid 25 mcg daily for high normal TSH level with hypothyroid symptoms of fatigue, difficulty losing weight by her OB-COMPLIANCE AND CONTROL ANALYST. She would like to start following with our office for this. Symptoms are improved since starting medication. Will obtain lab work to recheck her thyroid levels in 4-6 weeks. Nov,nxiety (ICD-10 - F41.9) She was recently taken [...] how she is doing, sooner if needed. Nov,MI 38.0-38.9,adult (ICD-10 - Z68.38) Patient is advised to work on healthy diet choices and appropriate servings, weight control, regular exercise as directed, reduced fat intake, and salt avoidance. Patient voiced understanding of thisand agrees to this plan. [facility] Other Evaluation note* Diagnosis Onset Date Resolution Status 8 weeks gestation of acuteLow back painacute [facility] Work Phone: Evaluation note* Diagnosis 32 [...] in this encounter [facility] HealthcareEvaluation note* Diagnosis Well woman exam with routine gynecological exam Routine gynecological examination documented in this encounter [facility] HealthcareEvaluation note* Diagnosis Onset Date Resolution Status Admit Date Pharyngitis noneactiveJuly 2024 10:24am [facility] Work Phone: History general Narrative - Reported* Type Description Date Medical History PCOS Medical HistoryTHYROID ISSUESSurgical HistoryTHIRD NIPPLE REMOVEDSurgical HistoryColonoscopy-[id number] [facility] Other Reason for referral (narrative)No reason for referral information availableSouthwest General Health Center Work Phone: Summary Purpose Family History Relationship Condition Age at Onset Recorded Date/T jordon father Diabetes mellitus Unknown HypertensionUnknownNot SpecifiedHeart diseaseUnknown Relationship Condition Age at Onset Recorded Date/T jordon father Diabetes mellitus Unknown HypertensionUnknownmotherHeart diseaseUnknown Advance Directives Advance Directive Response Recorded Date/ Time Advance Directives No September 2:40pm Reason for Referral Reason Refer to Dr. Adi orozco for right ear itching and pain; not relieve with many treatments Diagnosis 1 Right ear pain (H92. 01) Referral Organization [facility] Referring Provider First Name Sandra Referring Provider Last Name Geovanna Referring Provider Specialty Nurse Pract itioner Referred Provider Specialty Ear, Nose an d Throat Referral Priority Routine Chief Complaint and Reason for Visit Chief Complaint lower back pain Reason for Visit 8 weeks gestation of Low back pain Chief Complaint Admit Date poss strep April 27, 2025 10:24 am Reason for Visit Admit Date Pharyngitis April 27, 2025 10:24 am Chief Complaint Admit Date poss strep April 27, 2025 10:24 am j02.9 April 27, 2025 10:37 am New patient May 04, 2025 1:54p m Reason for Visit Admit Date Pharyngitis April 27, 2025 10:24 am Anxiety May 04, 2025 1:54p m Depression May 04, 2025 1:54p m Hypothyroidism May 04, 2025 1:54p m Additional Source Comments REASON FOR VISIT (unrecogniz ed section and content) ReasonCommentsRoutine VisitReasonCommentsRoutine VisitPatient voiced that she has been sick for the past 1.5 weeks, patient had mild case of Hand/Foot/Mouth. Patient has had a decrease in appetite & down 5 pounds as well as increase in acid reflux. Patient would like to know if Omeprazole could be increased in dosage.ReasonCommentsPostpartum CarePT present today for 6 week post visit. Pt delivered on 09/21/2024 vaginally.ReasonCommentsWell Women Visit INFORMATION SOURCE (unrecogn ized section and content) DATE CREATED AUTHOR 02/25/2023 [facility] DATE CREATED AUTHOR AUTHOR'S ORGANIZ ATION 12/19/2024 [facility] DATE CREATED AUTHOR AUTHOR'S ORGANIZ ATION 05/16/2025 [facility] Care Teams (unrecognized sec tion and content) [...] Start: February 13, 2024 End: February 13, 2024Team MemberRelationshipSpecialtyStart DateEnd Date Sandra Austin IDENTITY MANAGEMENT CONSULTANT [address] [place] [phone] PCP - General07/19/23Team MemberRelationshipSpecialtyStart DateEnd Date Sandra Austin, IDENTITY MANAGEMENT CONSULTANT [address] [place] [phone] PCP - General07/19/23Team MemberRelationshipSpecialtyStart DateEnd Date Sandra Austin, IDENTITY MANAGEMENT CONSULTANT [address] [place] [phone] PCP - General07/19/23Team MemberRelationshipSpecialtyStart DateEnd Date Sandra Austin, IDENTITY MANAGEMENT CONSULTANT [address] [place] [phone] PCP - General07/19/23Team MemberRelationshipSpecialtyStart DateEnd Date Sandra Austin, IDENTITY MANAGEMENT CONSULTANT [address] [place] [address] PCP - General9/22/23Team MemberRelationshipSpecialtyStart DateEnd Date Sandra Austin, IDENTITY MANAGEMENT CONSULTANT [address] [place] [address] PCP - General9/22/23Team MemberRelationshipSpecialtyStart DateEnd Date Sandra Austin, IDENTITY MANAGEMENT CONSULTANT [address] [place], [place] [id number] PCP - General9/22/23Team MemberRelationshipSpecialtyStart DateEnd Date Sandra Austin, IDENTITY MANAGEMENT CONSULTANT [address] [place] [id number] PCP - General9/22/23Team MemberRelationshipSpecialtyStart DateEnd Date Sandra Austin, IDENTITY MANAGEMENT CONSULTANT [address] [place] [address] PCP - General9/22/23Team MemberRelationshipSpecialtyStart DateEnd Date Sandra Austin, IDENTITY MANAGEMENT CONSULTANT [address] [place] [address] PCP - General9/22/23Team MemberRelationshipSpecialtyStart DateEnd Date Sandra Austin, IDENTITY MANAGEMENT CONSULTANT [address] [place] [address] PCP - General9/22/23Team MemberRelationshipSpecialtyStart DateEnd Date Sandra Austin, IDENTITY MANAGEMENT CONSULTANT [address] [place] [phone] PCP - General07/19/23Team MemberRelationshipSpecialtyStart DateEnd Date Sandra Austin, IDENTITY MANAGEMENT CONSULTANT [address] [place] [address] PCP - General07/19/23Team MemberRelationshipSpecialtyStart DateEnd Date Sandra Austin, IDENTITY MANAGEMENT CONSULTANT [address] [place] [address] PCP - General07/19/23Team MemberRelationshipSpecialtyStart DateEnd Date Sandra Austin, IDENTITY MANAGEMENT CONSULTANT [address] [place] [address] PCP - General07/19/23 Team Status: Active Member Role Status Dates Blanca Malhotra DO Primary Care Provider Active Team Status: Inactive Member Role Status Dates Blanca Malhotra DO Primary Care Provider Active Start: April 27, 2025 End: April 27, 2025Clay Savage ProviderActiveStart: April 27, 2025 End: April 27, 2025 Team Status: Inactive Member Role Status Dates Lowell Ambriz APRN Attending Provider Active Start: April 27, 2025 End: April 27, 2025 Team Status: Active Member Role Status Dates Sandra Mcconnell APRN IDENTITY MANAGEMENT CONSULTANT-C Primary Care Provider Active Team Status: Inactive Member Role Status Dates Sandra Mcconnell APRN IDENTITY MANAGEMENT CONSULTANT-C Primary Care Provider Active Start: May 04, 2025 End: May 04, 2025Sandra Mcconnell APRN IDENTITY MANAGEMENT CONSULTANT-CAttenniko ProviderActiveStart: May 04, 2025 End: May 04, 2025Team MemberRelationshipSpecialtyStart DateEnd Date Sandra Austin NP PCP - General07/19/23Team MemberRelationshipSpecialtyStart DateEnd Date Sandra Austin NP PCP General07/19/23Team MemberRelationshipSpecialtyStart DateEnd Date Sandra Austin NP PCP General07/19/23Te MemberRelationshipSpecialtyStart DateEnd Date Sandra Austin NP PCP [facility]07/19/23 Goals (unrecognized section and content) Goals may [...] BE BASED ON THE PRIMARY CLINICAL RECORDS. [facility] provides no warranty or guarantee of the accuracy or completeness of information in this document.
[2025-09-30 09:11] LABS: Hematocrit 36.3 % (36.0-48.0); Hemoglobin 11.9 g/dL (12.0-16.0); Immature Granulocytes Abs Auto 0.03 10^3/uL (0.00-0.03); Immature Granulocytes Pct Auto 0.4 % (0.0-0.5); Lymphocytes Absolute Auto 2.8 10^3/uL (1.2-3.8); Mean Corpuscular HGB Conc 32.8 g/dL (29.9-35.2); Mean Corpuscular Hemoglobin 29.7 pg (26.7-34.0); Mean Corpuscular Volume 90.5 fL (81.0-99.0); Platelet Count 303 10^3/uL (150-450); Red Blood Count 4.01 10^6/uL (4.20-5.40); White Blood Count 8.3 10^3/uL (4.0-11.0)
[2025-09-30 09:59] LABS: Alanine Aminotransferase 18 U/L (14-59); Albumin Globulin Ratio 0.8; Albumin Level 3.4 g/dL (3.4-5.0); Alkaline Phosphatase 84 U/L (46-116); Anion Gap 12.9; Aspartate Amino Transferase 16 U/L (15-37); Blood Urea Nitrogen 13.0 mg/dL (7.0-18.0); Calcium 8.8 mg/dL (8.5-10.1); Carbon Dioxide 25.9 mmol/L (21.0-32.0); Chloride 105 mmol/L (98-107); Cholesterol 232 mg/dL (<=200); Estimated GFR (African America >60 (>=60 mL/min/1.73m^2); Estimated GFR (Non-African Ame >60 (>=60 mL/min/1.73m^2); Globulin 4.3 g/dL; Glucose 96 mg/dL (74-106); HDL Cholesterol 75 mg/dL (40-60); Potassium 3.8 mmol/L (3.5-5.1); Sodium 140 mmol/L (136-145); Thyroid Stimulating Hormone 1.862 uIU/mL (0.358-3.740); Total Protein 7.7 g/dL (6.4-8.2); Triglycerides 79 mg/dL (<=150); VLDL CHOLESTEROL 15.8 mg/dL
== END 2025-09-30 08:44 | disposition home or self-care (01) ==
LOC: LAB 08:46
PROVIDERS: PCP Student in an Organized Health Care Education/Training Program; Visit Provider Physician Assistant
DX: Z00.00 Encounter for general adult medical examination without abnormal findings (principal)
CPT/HCPCS: 36415; 80053; 80061; 83036; 84443; 85025